=== PATIENT | male | born 1945 ===

== ENCOUNTER 2017-01-19 07:14 | Emergency (ER) | payer MEDICARE ==
[2017-01-19 08:02] LABS: Basophils % (Auto) 0.6 % (0.0-1.8); Eosinophils % (Auto) 3.9 % (0.0-4.3); Hematocrit 37.7 % (35.5-45.6); Hemoglobin 12.8 gm/dl (11.8-15.2); Mean Corpuscular HGB Conc 34 % (32-34); Mean Corpuscular Hemoglobin 28 pg (28-32); Mean Corpuscular Volume 84 fl (84-94); Platelet Count 193 K/mm3 (140-440); Red Cell Distribution Width 13.7 % (13.2-15.2); White Blood Count 7.6 K/mm3 (4.5-11.0)
[2017-01-19 08:11] LABS: Bilirubin,Urine NEG (Negative); Blood,Urine NEG (Negative); Ketones,Urine NEG (Negative); Leukocyte Esterase,Urine NEG (Negative); Mucus,Urine FEW /HPF; Nitrite,Urine NEG (Negative); Protein,Urine <15 mg/dL mg/dL (Negative); Urobilinogen,Urine < 2.0 mg/dL (<2.0); WBC,Urine < 1.0 /HPF (0.0-6.0)
[2017-01-19 08:22] LABS: Anion Gap 18 mmol/L; BUN/Creatinine Ratio 12.72; Blood Urea Nitrogen 14 mg/dL (9-20); Calcium 9.4 mg/dL (8.4-10.2); Carbon Dioxide 25 mmol/L (22-30); Chloride 99.7 mmol/L (98-107); Glucose 136 mg/dL (75-100); Potassium 4.7 mmol/L (3.6-5.0); Sodium 138 mmol/L (137-145)
--- NOTE | 2017-01-19 08:47 | Emergency Department Report ---
ED General Adult HPI - General Chief complaint: Chest Pain Stated complaint: CHEST/BACK/HIP PAIN Time Seen by Provider: 01/19/17 08:14 Source: patient, EMS Mode of arrival: Stretcher Limitations: No Limitations - History of Present Illness Initial comments: The patient arrives via EMS for evaluation. Apparently he states his overly concerned about a complaint of chest discomfort. He states that he felt "lightning" in his left chest which lasted for just a second. He does have a history of paroxysmal atrial fibrillation but did not specifically describe a tachycardia. His symptoms were not at all persistent. He also describes joint pain which is quite diffuse in nature. In addition he states he's been having left flank pain for a week which she has taken Motrin for. He denies cough shortness of breath nausea vomiting or sweating or dizziness. He has no history of coronary artery disease. He was previously admitted to this facility and discharged not to be a candidate for anticoagulant therapy. He states that he receives his chronic care at the [facility]. At the time of my encounter he is complaining of mild left flank pain only. He's had no recent fever or chills. -: week(s) Location: chest, left (flank) Radiation: non-radiation Quality: aching Consistency: intermittent Improves with: none Worsens with: none Associated Symptoms: denies other symptoms Treatments Prior to Arrival: none - Related Data Home Medications Medication Instructions Recorded Confirmed Last Taken Lisinopril [Zestril TAB] 20 mg PO QDAY 02/11/14 01/19/17 01/18/17 Simvastatin 10 mg PO QDAY 02/11/14 01/19/17 1 Day Ago metFORMIN [Glucophage] 1,000 mg PO BID 02/11/14 01/19/17 01/18/17 Magnesium Oxide [Mag-Ox] 400 mg PO DAILY 01/19/17 01/19/17 01/18/17 Metoprolol [Lopressor TAB] 37.5 mg PO BID 01/19/17 01/19/17 01/18/17 Ranitidine HCl [Zantac 150 MG TAB] 150 mg PO BID 01/19/17 01/19/17 01/18/17 glipiZIDE [Glucotrol] 10 mg PO DAILY 01/19/17 01/19/17 01/18/17 Previous Rx's Medication Instructions Recorded Last Taken Type traMADol [Ultram] 50 mg PO Q6HR PRN #14 tablet 01/19/17 Unknown Rx Allergies Allergy/AdvReac Type Severity Reaction Status Date / Time aspirin Allergy Swelling Verified 02/11/14 02:52 iron Allergy Itching Verified 02/11/14 02:52 ED Review of Systems ROS: Stated complaint: CHEST/BACK/HIP PAIN Other details as noted in HPI Constitutional: denies: chills, fever Eyes: denies: eye pain, eye discharge, vision change ENT: denies: ear pain, throat pain Respiratory: denies: cough, shortness of breath, wheezing Cardiovascular: denies: chest pain, palpitations Endocrine: no symptoms reported Gastrointestinal: denies: abdominal pain, nausea, diarrhea Genitourinary: denies: urgency, dysuria Musculoskeletal: as per HPI, back pain, arthralgia. denies: joint swelling Skin: denies: rash, lesions Neurological: denies: headache, weakness, paresthesias Psychiatric: denies: anxiety, depression Hematological/Lymphatic: denies: easy bleeding, easy bruising ED Past Medical Hx - Past Medical History Previous Medical History?: Yes Hx Hypertension: Yes Hx Heart Attack/AMI: Yes (08/2016) Hx Diabetes: Yes Additional medical history: High Cholesterol - Surgical History Past Surgical History?: Yes Hx Cholecystectomy: Yes - Social History Smoking Status: Never Smoker Substance Use Type: None - Medications Home Medications: Home Medications Medication Instructions Recorded Confirmed Last Taken Type Lisinopril [Zestril TAB] 20 mg PO QDAY 02/11/14 01/19/17 01/18/17 History Simvastatin 10 mg PO QDAY 02/11/14 01/19/17 1 Day Ago History metFORMIN [Glucophage] 1,000 mg PO BID 02/11/14 01/19/17 01/18/17 History Magnesium Oxide [Mag-Ox] 400 mg PO DAILY 01/19/17 01/19/17 01/18/17 History Metoprolol [Lopressor TAB] 37.5 mg PO BID 01/19/17 01/19/17 01/18/17 History Ranitidine HCl [Zantac 150 MG TAB] 150 mg PO BID 01/19/17 01/19/17 01/18/17 History glipiZIDE [Glucotrol] 10 mg PO DAILY 01/19/17 01/19/17 01/18/17 History traMADol [Ultram] 50 mg PO Q6HR PRN #14 tablet 01/19/17 Unknown Rx ED Physical Exam - General Limitations: No Limitations General appearance: alert, in no apparent distress - Head Head exam: Present: atraumatic, normocephalic - Eye Eye exam: Present: normal appearance. Absent: scleral icterus - ENT ENT exam: Present: mucous membranes moist - Neck Neck exam: Present: normal inspection - Respiratory Respiratory exam: Present: normal lung sounds bilaterally. Absent: respiratory distress - Cardiovascular Cardiovascular Exam: Present: regular rate, normal rhythm. Absent: systolic murmur, diastolic murmur, rubs, gallop - GI/Abdominal GI/Abdominal exam: Present: soft, normal bowel sounds. Absent: distended, tenderness, guarding, rebound, rigid - Rectal Rectal exam: Present: deferred - Extremities Exam Extremities exam: Present: normal inspection - Back Exam Back exam: Present: normal inspection, full ROM. Absent: tenderness, CVA tenderness (R), CVA tenderness (L), muscle spasm, paraspinal tenderness, vertebral tenderness, rash noted - Neurological Exam Neurological exam: Present: alert, oriented X3, CN II-XII intact. Absent: motor sensory deficit - Psychiatric Psychiatric exam: Present: normal affect, normal mood - Skin Skin exam: Present: warm, dry, intact, normal color. Absent: rash ED Course Vital Signs 01/19/17 01/19/17 01/19/17 07:29 07:31 07:46 Temperature 97.5 F L Pulse Rate 59 L 60 59 L Respiratory 18 14 13 Rate Blood Pressure 155/80 155/80 Blood Pressure [Left] O2 Sat by Pulse 98 100 Oximetry 01/19/17 01/19/17 01/19/17 08:00 09:39 09:42 Temperature 97.5 F L Pulse Rate 57 L 70 Respiratory 21 18 20 Rate Blood Pressure 149/126 Blood Pressure 154/79 [Left] O2 Sat by Pulse 100 96 100 Oximetry 01/19/17 10:43 Temperature Pulse Rate 61 Respiratory 20 Rate Blood Pressure 141/76 Blood Pressure [Left] O2 Sat by Pulse Oximetry ED Medical Decision Making - Lab Data Result diagrams: 01/19/17 07:50 01/19/17 07:50 Laboratory Results - last 24 hr 01/19/17 01/19/17 01/19/17 07:30 07:50 07:50 WBC 7.6 RBC 4.50 Hgb 12.8 Hct 37.7 MCV 84 MCH 28 MCHC 34 RDW 13.7 Plt Count 193 Lymph % (Auto) 28.5 [place] % (Auto) 6.1 Eos % (Auto) 3.9 Baso % (Auto) 0.6 Lymph # 2.2 [place] # 0.5 Eos # 0.3 Baso # 0.0 Seg Neutrophils % 60.9 Seg Neutrophils # 4.6 Sodium 138 Potassium 4.7 Chloride 99.7 Carbon Dioxide 25 Anion Gap 18 BUN 14 Creatinine 1.1 Estimated GFR > 60 BUN/Creatinine Ratio 12.72 Glucose 136 H Calcium 9.4 Troponin T < 0.010 Urine Color Straw Urine Turbidity Clear Urine pH 6.0 Ur Specific [place] 1.011 Urine Protein <15 mg/dl Urine Glucose (UA) Neg Urine Ketones Neg Urine Blood Neg Urine Nitrite Neg Urine Bilirubin Neg Urine Urobilinogen < 2.0 Ur Leukocyte Esterase Neg Urine WBC (Auto) < 1.0 Urine RBC (Auto) 4.0 Urine Mucus Few Laboratory Results - last 24 hr 01/19/17 01/19/17 01/19/17 07:30 07:50 07:50 WBC 7.6 RBC 4.50 Hgb 12.8 Hct 37.7 MCV 84 MCH 28 MCHC 34 RDW 13.7 Plt Count 193 Lymph % (Auto) 28.5 [place] % (Auto) 6.1 Eos % (Auto) 3.9 Baso % (Auto) 0.6 Lymph # 2.2 [place] # 0.5 Eos # 0.3 Baso # 0.0 Seg Neutrophils % 60.9 Seg Neutrophils # 4.6 Sodium 138 Potassium 4.7 Chloride 99.7 Carbon Dioxide 25 Anion Gap 18 BUN 14 Creatinine 1.1 Estimated GFR > 60 BUN/Creatinine Ratio 12.72 Glucose 136 H Calcium 9.4 Troponin T < 0.010 Urine Color Straw Urine Turbidity Clear Urine pH 6.0 Ur Specific [place] 1.011 Urine Protein <15 mg/dl Urine Glucose (UA) Neg Urine Ketones Neg Urine Blood Neg Urine Nitrite Neg Urine Bilirubin Neg Urine Urobilinogen < 2.0 Ur Leukocyte Esterase Neg Urine WBC (Auto) < 1.0 Urine RBC (Auto) 4.0 Urine Mucus Few 01/19/17 10:48 WBC RBC Hgb Hct MCV MCH MCHC RDW Plt Count Lymph % (Auto) [place] % (Auto) Eos % (Auto) Baso % (Auto) Lymph # [place] # Eos # Baso # Seg Neutrophils % Seg Neutrophils # Sodium Potassium Chloride Carbon Dioxide Anion Gap BUN Creatinine Estimated GFR BUN/Creatinine Ratio Glucose Calcium Troponin T < 0.010 Urine Color Urine Turbidity Urine pH Ur Specific [place] Urine Protein Urine Glucose (UA) Urine Ketones Urine Blood Urine Nitrite Urine Bilirubin Urine Urobilinogen Ur Leukocyte Esterase Urine WBC (Auto) Urine RBC (Auto) Urine Mucus - EKG Data -: EKG Interpreted by Me EKG shows normal: sinus rhythm, axis, intervals, QRS complexes, ST-T waves - EKG Data Interpretation: no acute changes - Radiology Data Radiology results: report reviewed Critical care attestation.: If time is entered above; I have spent that time in minutes in the direct care of this critically ill patient, excluding procedure time. ED Disposition Clinical Impression: Atypical chest pain, Left flank pain Disposition: DISCHARGED TO HOME OR SELFCARE Is pt being admited?: No Does the pt Need Aspirin: No Condition: Stable Instructions: Chest Pain (ED), Flank Pain (ED) Additional Instructions: Return any acute change or problem. Follow-up with usual primary care provider. Rx as needed for pain. Prescriptions: traMADol [Ultram] 50 mg PO Q6HR PRN #14 tablet PRN Reason: Pain Referrals: PRIMARY CARE, [Primary Care Provider] - 3-5 Days Time of Disposition: 12:18
[2017-01-19] MEDS ORDERED: NITRO-BID 2% TP ONE (08:48)
[2017-01-19] MEDS ORDERED: NORCO 5/325 PO ONE (08:48)
--- NOTE | 2017-01-19 08:56 | XRay Report ---
CHEST ONE VIEW INDICATION: Chest pain. COMPARISON: 09/28/2016. FINDINGS: Portable, single, frontal chest radiograph demonstrates normal cardiomediastinal silhouette. Clear lungs. Aortic knob calcifications. Possible osteopenia. Thoracic spondylosis. Extrinsic EKG leads. CONCLUSION: No acute disease in the chest. Thank you for the opportunity to participate in this patient's care.
--- NOTE | 2017-01-19 09:54 | Admit Criteria Form ---
Admission Criteria Documentation: CHEST PAIN Clinical Indications for Admission to Inpatient Care (Place 'X' for any and all applicable criteria): Admission is indicated for chest pain and ANY ONE of the following(1)(2)(3)(4)(5 ): [ ]I. Angina with acute coronary syndrome (Also use Myocardial Infarction or Angina guideline) [ ]II. Hemodynamic instability [ ]III. Angina needing acute intervention as indicated by ALL of the following( 11)(12): [ ]a) Unstable angina is present as indicated by angina that is ANY ONE of the following: [ ]i) New onset [ ]ii) Nocturnal [ ]iii) Prolonged at rest [ ]iv) Progressive [ ]b) Angina warrants acute intervention as indicated by ANY ONE of the following: [ ]i) Recurrent angina (e.g, not responding as previously to treatment) [ ]ii) Angina at rest or with low-level activities despite initial medical therapy [ ]iii) New or presumably new ST-segment depression on ECG [ ]iv) Signs or symptoms of heart failure (eg, dyspnea, pulmonary edema) [ ]v) New or worsening mitral regurgitation [ ]vi) Hemodynamic instability [ ]vii) Dangerous arrhythmia (eg, sustained ventricular tachycardia) [ ]viii) History of percutaneous coronary intervention within 6 months [ ]ix) History of coronary artery bypass graft surgery [ ]x) POLINA risk score of 2 or greater[A] [ ]xi) History of Diabetes(14) [ ]xii) High-risk cardiac ischemia findings on noninvasive testing (e.g, echocardiogram, treadmill testing, nuclear scan) [ ]xiii) Chronic renal insufficiency (ie, estimated GFR less than 60 mL/min/1.732m) [ ]xiv) Left ventricular ejection fraction less than 40% [ ]IV. Evidence of UT (eg, cardiac biomarkers positive, ST-segment elevation on ECG) also use Myocardial Infarction Criteria Form. [ ]V. Pulmonary edema [ ]. Respiratory distress [ ]VII. Chest pain indicative of serious diagnosis other than coronary artery disease (eg, aortic dissection) [ ]VIII. Contraindications and/or Inappropriate clinical situations for Observational Care in patients with Chest Pain, when ANY ONE of the following is required: [ ]a) Patient with risk factor for pulmonary embolism, acute coronary syndrome and myocardial infarction (18) [ ]b) Patient with Pulmonary embolism require an average LOS of 4.3 days, therefore emergency department observation management is inappropriate 18,23 [ ]c) Painful condition/s in the elderly, have the highest rate of recidivism after emergency department observation management (10.8%) 20,21,22 [ ]d) Elevated cardiac biomarker requires intensive and exhaustive care (19) [X ]IX. General contraindications and/or Inappropriate clinical situations for Observational Care in patients with Chest Pain, when ANY ONE of the following is required: [X ]a) Prediction of prolongation of LOS based on ANY ONE of the following may be considered as a contraindication for observational care 2, 3, 4, 5, 6, 7, 8, 9, 10, 11 [X ]i) Age > 65 yrs. [ X]ii) Patient arriving by ambulance [ ]iii) Patient with high acuity [ ]iv) Patient requiring vital sign monitoring [ ]v) Patient on IV medication [ ]b) Systolic blood pressures 180mmHg 3,12 [ ]c) Patient with altered mental status including delirium and other alteration of consciousness, (3) [ ]d) Patient whose discharge disposition will be to a senior care home or rehabilitation home should not be managed in Emergency Department Observation Unit. CMS rule requires 3 days hospital stay before such placement. 3,13 [ ]e) Patient with failure to thrive due to broad array of etiologies 3,16,17 [ ]f) Inability to ambulate 3,14 Extended stay beyond goal length of stay may be needed for (1)(28): [ ]a) Specific condition diagnosed after evaluation (eg, pulmonary embolism, aortic dissection) [ ]b) Unstable angina [ ]c) Continued suspicion of acute coronary syndrome with inability to complete needed cardiac evaluation (eg, patient clinically unable to undergo stress testing) [ ]d) Myocardial infarction (Contents from ANGINA and CHEST PAIN clinical indications for admission to inpatient care have been integrated in this form) The original [email or web address] content created by [email or web address] has been revised. The portions of the content which have been revised are identified through the use of italic text or in bold, and [employer] has neither reviewed nor approved the modified material. All other unmodified content is copyright [employer]. Please see references footnoted in the original [employer] edition 2016
--- NOTE | 2017-01-19 10:38 | Cat Scan Report ---
CT OF THE ABDOMEN AND PELVIS WITHOUT CONTRAST HISTORY: Left flank pain. TECHNIQUE: Helical CT without contrast. Sagittal and coronal reformatted images. FINDINGS: Within the limits of a noncontrast exam, the abdominal and pelvic viscera are within normal limits. Cholecystectomy changes. The liver, biliary system, pancreas, spleen, kidneys, adrenal glands and bladder are unremarkable. The bowel loops are normal caliber and wall thickness. Normal appendix. The aorta is normal caliber. No ascites, bulky adenopathy or inflammatory changes. The lung bases are clear. Normal heart size. No suspicious bony lesion. IMPRESSION: Unremarkable noncontrast CT of the abdomen and pelvis. No clear explanation for left flank pain.
[2017-01-19] MEDS ORDERED: ULTRAM PO ONE (12:20)
[2017-01-19 13:24] VITALS: BP 148/71
== END 2017-01-19 13:24 | disposition home or self-care (01) ==
LOC: ED 07:14
DX: R07.89 Other chest pain (principal); R00.0 Tachycardia, unspecified; R10.9 Unspecified abdominal pain; I10 Essential (primary) hypertension; E11.9 Type 2 diabetes mellitus without complications; E78.00 Pure hypercholesterolemia, unspecified; I50.9 Heart failure, unspecified; I48.91 Unspecified atrial fibrillation; Z90.49 Acquired absence of other specified parts of digestive tract
CPT/HCPCS: 36415; 71010; 74176; 80048; 81001; 84484; 85025; 93005; 93010

== ENCOUNTER 2019-04-30 09:13 | Emergency (ER) | payer MEDICARE ==
[2019-04-30] MEDS ORDERED: NACL 0.9% 1000 ML 1,000 ML IV ONE (10:39)
--- NOTE | 2019-04-30 10:45 | Emergency Department Report ---
ED General Adult HPI - General Chief complaint: Hyperglycemia Stated complaint: HIGH BLOOD SUGAR Time Seen by Provider: 04/30/19 10:01 Source: patient, family Mode of arrival: Ambulatory Limitations: No Limitations - History of Present Illness Initial comments: The patient presents to the emergency department with a chief complaint elevated blood glucose levels. Patient is on insulin at home and just recently returned from [facility] where he was not taking his medications. Patient was seen by his primary care physician yesterday and was told to come to the emergency department for evaluation. Patient denies chest pain, shortness breath, or abdominal pain. -: Gradual Severity scale (0 -10): 0 Improves with: none Worsens with: none Associated Symptoms: denies other symptoms Treatments Prior to Arrival: none - Related Data Home Medications Medication Instructions Recorded Confirmed Last Taken Lisinopril [Zestril TAB] 20 mg PO QDAY 02/11/14 01/19/17 01/18/17 Simvastatin 10 mg PO QDAY 02/11/14 01/19/17 1 Day Ago ~01/18/17 metFORMIN [Glucophage] 1,000 mg PO BID 02/11/14 01/19/17 01/18/17 Magnesium Oxide [Mag-Ox] 400 mg PO DAILY 01/19/17 01/19/17 01/18/17 Metoprolol [Lopressor TAB] 37.5 mg PO BID 01/19/17 01/19/17 01/18/17 Ranitidine HCl [Zantac 150 MG TAB] 150 mg PO BID 01/19/17 01/19/17 01/18/17 glipiZIDE [Glucotrol] 10 mg PO DAILY 01/19/17 01/19/17 01/18/17 Previous Rx's Medication Instructions Recorded Last Taken Type traMADol [Ultram] 50 mg PO Q6HR PRN #14 tablet 01/19/17 Unknown Rx Allergies Allergy/AdvReac Type Severity Reaction Status Date / Time aspirin Allergy Swelling Verified 02/11/14 02:52 iron Allergy Itching Verified 02/11/14 02:52 ED Review of Systems ROS: Stated complaint: HIGH BLOOD SUGAR Other details as noted in HPI Comment: All other systems reviewed and negative Constitutional: denies: chills, fever Eyes: denies: eye pain, eye discharge, vision change ENT: denies: ear pain, throat pain Respiratory: denies: cough, shortness of breath, wheezing Cardiovascular: denies: chest pain, palpitations Endocrine: no symptoms reported Gastrointestinal: denies: abdominal pain, nausea, diarrhea Genitourinary: denies: urgency, dysuria Musculoskeletal: denies: back pain, joint swelling, arthralgia Skin: denies: rash, lesions Neurological: denies: headache, weakness, paresthesias Psychiatric: denies: anxiety, depression Hematological/Lymphatic: denies: easy bleeding, easy bruising ED Past Medical Hx - Past Medical History Previous Medical History?: Yes Hx Hypertension: Yes Hx Heart Attack/AMI: Yes (08/2016) Hx Diabetes: Yes Additional medical history: High Cholesterol - Surgical History Past Surgical History?: Yes Hx Cholecystectomy: Yes - Social History Smoking Status: Never Smoker Substance Use Type: None - Medications Home Medications: Home Medications Medication Instructions Recorded Confirmed Last Taken Type Lisinopril [Zestril TAB] 20 mg PO QDAY 02/11/14 01/19/17 01/18/17 History Simvastatin 10 mg PO QDAY 02/11/14 01/19/17 1 Day Ago History ~01/18/17 metFORMIN [Glucophage] 1,000 mg PO BID 02/11/14 01/19/17 01/18/17 History Magnesium Oxide [Mag-Ox] 400 mg PO DAILY 01/19/17 01/19/17 01/18/17 History Metoprolol [Lopressor TAB] 37.5 mg PO BID 01/19/17 01/19/17 01/18/17 History Ranitidine HCl [Zantac 150 MG TAB] 150 mg PO BID 01/19/17 01/19/17 01/18/17 History glipiZIDE [Glucotrol] 10 mg PO DAILY 01/19/17 01/19/17 01/18/17 History traMADol [Ultram] 50 mg PO Q6HR PRN #14 tablet 01/19/17 Unknown Rx ED Physical Exam - General Limitations: No Limitations General appearance: alert, in no apparent distress - Head Head exam: Present: atraumatic, normocephalic - Eye Eye exam: Present: normal appearance, PERRL - ENT ENT exam: Present: mucous membranes moist - Neck Neck exam: Present: normal inspection - Respiratory Respiratory exam: Present: normal lung sounds bilaterally. Absent: respiratory distress - Cardiovascular Cardiovascular Exam: Present: regular rate, normal rhythm. Absent: systolic murmur, diastolic murmur, rubs, gallop - GI/Abdominal GI/Abdominal exam: Present: soft, normal bowel sounds. Absent: distended, tenderness - Rectal Rectal exam: Present: deferred - Extremities Exam Extremities exam: Present: normal inspection - Back Exam Back exam: Present: normal inspection - Neurological Exam Neurological exam: Present: alert, oriented X3, CN II-XII intact. Absent: motor sensory deficit - Psychiatric Psychiatric exam: Present: normal affect, normal mood - Skin Skin exam: Present: warm, dry, intact, normal color. Absent: rash ED Course Vital Signs 04/30/19 04/30/19 04/30/19 09:18 11:00 11:20 Temperature 97.7 F Pulse Rate 55 L 54 L Respiratory 16 20 Rate Blood Pressure 163/94 Blood Pressure 155/78 [Left] O2 Sat by Pulse 96 100 97 Oximetry 04/30/19 04/30/19 04/30/19 11:30 12:00 12:33 Temperature Pulse Rate Respiratory Rate Blood Pressure 154/87 154/92 154/92 Blood Pressure [Left] O2 Sat by Pulse 97 99 99 Oximetry ED Medical Decision Making - Lab Data Result diagrams: 04/30/19 10:45 04/30/19 10:45 Lab Results 04/30/19 04/30/19 04/30/19 Range/Units 09:23 10:45 10:45 WBC 6.9 (4.5-11.0) K/mm3 RBC 4.55 (3.65-5.03) M/mm3 Hgb 13.1 (11.8-15.2) gm/dl Hct 38.8 (35.5-45.6) % MCV 85 (84-94) fl MCH 29 (28-32) pg MCHC 34 (32-34) % RDW 14.3 (13.2-15.2) % Plt Count 209 (140-440) K/mm3 Lymph % (Auto) 32.4 (13.4-35.0) % Jenkins % (Auto) 6.6 (0.0-7.3) % Eos % (Auto) 3.4 (0.0-4.3) % Baso % (Auto) 1.1 (0.0-1.8) % Lymph # 2.3 (1.2-5.4) K/mm3 Jenkins # 0.5 (0.0-0.8) K/mm3 Eos # 0.2 (0.0-0.4) K/mm3 Baso # 0.1 (0.0-0.1) K/mm3 Seg Neutrophils % 56.5 (40.0-70.0) % Seg Neutrophils # 3.9 (1.8-7.7) K/mm3 Sodium 131 L (137-145) mmol/L Potassium 4.6 (3.6-5.0) mmol/L Chloride 94.2 L (98-107) mmol/L Carbon Dioxide 24 (22-30) mmol/L Anion Gap 17 mmol/L BUN 18 (9-20) mg/dL Creatinine 1.3 (0.8-1.5) mg/dL Estimated GFR 54 ml/min BUN/Creatinine Ratio 14 % Glucose 462 H (75-100) mg/dL POC Glucose 434 H (70-105) Calcium 9.1 (8.4-10.2) mg/dL Total Bilirubin 0.30 (0.1-1.2) mg/dL AST 14 (5-40) units/L ALT 14 (7-56) units/L Alkaline Phosphatase 58 (35-129) units/L Total Protein 7.5 (6.3-8.2) g/dL Albumin 3.9 (3.9-5) g/dL Albumin/Globulin Ratio 1.1 % Urine Color (Yellow) Urine Turbidity (Clear) Urine pH (5.0-7.0) Ur Specific Eagle (1.003-1.030) Urine Protein (Negative) mg/dL Urine Glucose (UA) (Negative) mg/dL Urine Ketones (Negative) mg/dL Urine Blood (Negative) Urine Nitrite (Negative) Urine Bilirubin (Negative) Urine Urobilinogen (<2.0) mg/dL Ur Leukocyte Esterase (Negative) Urine WBC (Auto) (0.0-6.0) /HPF Urine RBC (Auto) (0.0-6.0) /HPF Urine Mucus /HPF 04/30/19 04/30/19 04/30/19 Range/Units 12:02 13:18 14:41 WBC (4.5-11.0) K/mm3 RBC (3.65-5.03) M/mm3 Hgb (11.8-15.2) gm/dl Hct (35.5-45.6) % MCV (84-94) fl MCH (28-32) pg MCHC (32-34) % RDW (13.2-15.2) % Plt Count (140-440) K/mm3 Lymph % (Auto) (13.4-35.0) % Jenkins % (Auto) (0.0-7.3) % Eos % (Auto) (0.0-4.3) % Baso % (Auto) (0.0-1.8) % Lymph # (1.2-5.4) K/mm3 Jenkins # (0.0-0.8) K/mm3 Eos # (0.0-0.4) K/mm3 Baso # (0.0-0.1) K/mm3 Seg Neutrophils % (40.0-70.0) % Seg Neutrophils # (1.8-7.7) K/mm3 Sodium (137-145) mmol/L Potassium (3.6-5.0) mmol/L Chloride (98-107) mmol/L Carbon Dioxide (22-30) mmol/L Anion Gap mmol/L BUN (9-20) mg/dL Creatinine (0.8-1.5) mg/dL Estimated GFR ml/min BUN/Creatinine Ratio % Glucose (75-100) mg/dL POC Glucose 411 H 336 H 208 H (70-105) Calcium (8.4-10.2) mg/dL Total Bilirubin (0.1-1.2) mg/dL AST (5-40) units/L ALT (7-56) units/L Alkaline Phosphatase (35-129) units/L Total Protein (6.3-8.2) g/dL Albumin (3.9-5) g/dL Albumin/Globulin Ratio % Urine Color (Yellow) Urine Turbidity (Clear) Urine pH (5.0-7.0) Ur Specific Eagle (1.003-1.030) Urine Protein (Negative) mg/dL Urine Glucose (UA) (Negative) mg/dL Urine Ketones (Negative) mg/dL Urine Blood (Negative) Urine Nitrite (Negative) Urine Bilirubin (Negative) Urine Urobilinogen (<2.0) mg/dL Ur Leukocyte Esterase (Negative) Urine WBC (Auto) (0.0-6.0) /HPF Urine RBC (Auto) (0.0-6.0) /HPF Urine Mucus /HPF 04/30/19 Range/Units Unknown WBC (4.5-11.0) K/mm3 RBC (3.65-5.03) M/mm3 Hgb (11.8-15.2) gm/dl Hct (35.5-45.6) % MCV (84-94) fl MCH (28-32) pg MCHC (32-34) % RDW (13.2-15.2) % Plt Count (140-440) K/mm3 Lymph % (Auto) (13.4-35.0) % Jenkins % (Auto) (0.0-7.3) % Eos % (Auto) (0.0-4.3) % Baso % (Auto) (0.0-1.8) % Lymph # (1.2-5.4) K/mm3 Jenkins # (0.0-0.8) K/mm3 Eos # (0.0-0.4) K/mm3 Baso # (0.0-0.1) K/mm3 Seg Neutrophils % (40.0-70.0) % Seg Neutrophils # (1.8-7.7) K/mm3 Sodium (137-145) mmol/L Potassium (3.6-5.0) mmol/L Chloride (98-107) mmol/L Carbon Dioxide (22-30) mmol/L Anion Gap mmol/L BUN (9-20) mg/dL Creatinine (0.8-1.5) mg/dL Estimated GFR ml/min BUN/Creatinine Ratio % Glucose (75-100) mg/dL POC Glucose (70-105) Calcium (8.4-10.2) mg/dL Total Bilirubin (0.1-1.2) mg/dL AST (5-40) units/L ALT (7-56) units/L Alkaline Phosphatase (35-129) units/L Total Protein (6.3-8.2) g/dL Albumin (3.9-5) g/dL Albumin/Globulin Ratio % Urine Color Straw (Yellow) Urine Turbidity Clear (Clear) Urine pH 5.0 (5.0-7.0) Ur Specific Eagle 1.024 (1.003-1.030) Urine Protein <15 mg/dl (Negative) mg/dL Urine Glucose (UA) >=500 (Negative) mg/dL Urine Ketones Neg (Negative) mg/dL Urine Blood Neg (Negative) Urine Nitrite Neg (Negative) Urine Bilirubin Neg (Negative) Urine Urobilinogen < 2.0 (<2.0) mg/dL Ur Leukocyte Esterase Neg (Negative) Urine WBC (Auto) < 1.0 (0.0-6.0) /HPF Urine RBC (Auto) 1.0 (0.0-6.0) /HPF Urine Mucus Few /HPF - Medical Decision Making IV Insulin given by 2 Critical Care Time: Yes Critical care time in (mins) excluding proc time.: 35 Critical care attestation.: If time is entered above; I have spent that time in minutes in the direct care of this critically ill patient, excluding procedure time. ED Disposition Clinical Impression: Hyperglycemia Disposition: DC-01 TO HOME OR SELFCARE Is pt being admited?: No Does the pt Need Aspirin: No Condition: Stable Instructions: Diabetic Hyperglycemia (ED) Additional Instructions: return if worse Referrals: PRIMARY CAREMD [Referring] - 3-5 Days MARIA LUISA NORTON MD [Staff Physician] - 3-5 Days Time of Disposition: 14:40
[2019-04-30 11:01] LABS: Basophils # (Auto) 0.1 K/mm3 (0.0-0.1); Basophils % (Auto) 1.1 % (0.0-1.8); Eosinophils # (Auto) 0.2 K/mm3 (0.0-0.4); Eosinophils % (Auto) 3.4 % (0.0-4.3); Hematocrit 38.8 % (35.5-45.6); Hemoglobin 13.1 gm/dl (11.8-15.2); Lymphocytes # (Auto) 2.3 K/mm3 (1.2-5.4); Lymphocytes % (Auto) 32.4 % (13.4-35.0); Mean Corpuscular HGB Conc 34 % (32-34); Mean Corpuscular Volume 85 fl (84-94); Monocytes # (Auto) 0.5 K/mm3 (0.0-0.8); Monocytes % (Auto) 6.6 % (0.0-7.3); Platelet Count 209 K/mm3 (140-440); Red Blood Count 4.55 M/mm3 (3.65-5.03); Red Cell Distribution Width 14.3 % (13.2-15.2)
[2019-04-30 11:02] LABS: Bilirubin,Urine NEG (Negative); Blood,Urine NEG (Negative); Color,Urine Straw (Yellow); Mucus,Urine FEW /HPF; Protein,Urine <15 mg/dL mg/dL (Negative); Urobilinogen,Urine < 2.0 mg/dL (<2.0); WBC,Urine < 1.0 /HPF (0.0-6.0)
[2019-04-30 11:15] LABS: Albumin 3.9 g/dL (3.9-5); Calcium 9.1 mg/dL (8.4-10.2)
[2019-04-30] MEDS ORDERED: HumuLIN R IV ONE ×2 (11:37→13:18)
[2019-04-30 15:01] VITALS: BP 153/82
== END 2019-04-30 15:22 | disposition home or self-care (01) ==
LOC: ED 09:13
DX: E11.65 Type 2 diabetes mellitus with hyperglycemia (principal); Z79.899 Other long term (current) drug therapy; I10 Essential (primary) hypertension; I25.2 Old myocardial infarction; E78.5 Hyperlipidemia, unspecified; Z90.49 Acquired absence of other specified parts of digestive tract; Z88.8 Allergy status to other drugs, medicaments and biological substances
CPT/HCPCS: 36415; 80053; 81001; 82962; 85025; 96361; 96374; 96376; 99291; J7030; J1815

== ENCOUNTER 2019-05-03 23:54 | Inpatient (IN) | payer MEDICARE, MEDICAID ==
--- NOTE | 2019-05-04 00:18 | Emergency Department Report ---
ED Chest Pain HPI - General Stated Complaint: CHEST PAIN Time Seen by Provider: 05/04/19 00:14 Source: patient Mode of arrival: Ambulatory Limitations: No Limitations - History of Present Illness Initial Comments: Patient is a 74-year-old male that just emergency room with chest pain that started this morning. Patient states his chest pain has been intermittent throughout the day. Patient states that his chest pinky back approximately an hour and a half ago worse than it did all day. Patient states his chest pain got better with rest and nitroglycerin. Patient states the pain was worse with exertion. Patient states the pain is severe. She denies fever and chills. P atient denies abdominal pain. Patient denies leg swelling. Patient denies diaphoresis. Patient denies shortness of breath. MD Complaint: chest pain -: Sudden Onset: during rest Pain Location: substernal, left chest Pain Radiation: none Severity: severe Quality: sharp Consistency: constant Improves With: nitroglycerin, rest Worsens With: exertion re: denies: nausea, vomting, diaphoresis, dyspnea, sense of impending doom Other Symptoms: denies: cough, fever, syncope, rash, acid taste in mouth, leg swelling, palpitations, burping Treatments Prior to Arrival: aspirin, nitroglycerin Aspirin use within the Past 7 Days: (1) Yes - Related Data On Oral Contraceptives: No Home Medications Medication Instructions Recorded Confirmed Last Taken Lisinopril [Zestril TAB] 20 mg PO QDAY 02/11/14 01/19/17 01/18/17 Simvastatin 10 mg PO QDAY 02/11/14 01/19/17 1 Day Ago ~01/18/17 metFORMIN [Glucophage] 1,000 mg PO BID 02/11/14 01/19/17 01/18/17 Magnesium Oxide [Mag-Ox] 400 mg PO DAILY 01/19/17 01/19/17 01/18/17 Metoprolol [Lopressor TAB] 37.5 mg PO BID 01/19/17 01/19/17 01/18/17 Ranitidine HCl [Zantac 150 MG TAB] 150 mg PO BID 01/19/17 01/19/17 01/18/17 glipiZIDE [Glucotrol] 10 mg PO DAILY 01/19/17 01/19/17 01/18/17 Previous Rx's Medication Instructions Recorded Last Taken Type traMADol [Ultram] 50 mg PO Q6HR PRN #14 tablet 01/19/17 Unknown Rx Allergies Allergy/AdvReac Type Severity Reaction Status Date / Time aspirin Allergy Swelling Verified 02/11/14 02:52 iron Allergy Itching Verified 02/11/14 02:52 Heart Score - HEART Score History: Moderately suspicious EKG: Non-specific Age: > 65 Risk factors: > 3 risk factors or hx of atherosclerotic disease Troponin: < normal limit HEART Score: 6 ED Review of Systems ROS: Stated complaint: CHEST PAIN Other details as noted in HPI Constitutional: denies: chills, fever Eyes: denies: eye pain, eye discharge, vision change ENT: denies: ear pain, throat pain Respiratory: denies: cough, shortness of breath, wheezing Cardiovascular: chest pain. denies: palpitations Endocrine: no symptoms reported Gastrointestinal: denies: abdominal pain, nausea, diarrhea Genitourinary: denies: urgency, dysuria Musculoskeletal: denies: back pain, joint swelling, arthralgia Skin: denies: rash, lesions Neurological: denies: headache, weakness, paresthesias Psychiatric: denies: anxiety, depression Hematological/Lymphatic: denies: easy bleeding, easy bruising ED Past Medical Hx - Past Medical History Previous Medical History?: Yes Hx Hypertension: Yes Hx Heart Attack/AMI: Yes (08/2016) Hx Diabetes: Yes Additional medical history: High Cholesterol - Surgical History Past Surgical History?: Yes Hx Cholecystectomy: Yes - Family History Family history: no significant - Social History Smoking Status: Never Smoker Substance Use Type: None - Medications Home Medications: Home Medications Medication Instructions Recorded Confirmed Last Taken Type Lisinopril [Zestril TAB] 20 mg PO QDAY 02/11/14 01/19/17 01/18/17 History Simvastatin 10 mg PO QDAY 02/11/14 01/19/17 1 Day Ago History ~01/18/17 metFORMIN [Glucophage] 1,000 mg PO BID 02/11/14 01/19/17 01/18/17 History Magnesium Oxide [Mag-Ox] 400 mg PO DAILY 01/19/17 01/19/17 01/18/17 History Metoprolol [Lopressor TAB] 37.5 mg PO BID 01/19/17 01/19/17 01/18/17 History Ranitidine HCl [Zantac 150 MG TAB] 150 mg PO BID 01/19/17 01/19/17 01/18/17 History glipiZIDE [Glucotrol] 10 mg PO DAILY 01/19/17 01/19/17 01/18/17 History traMADol [Ultram] 50 mg PO Q6HR PRN #14 tablet 01/19/17 Unknown Rx ED Physical Exam - General Limitations: No Limitations General appearance: alert, in no apparent distress - Head Head exam: Present: atraumatic, normocephalic - Eye Eye exam: Present: normal appearance - ENT ENT exam: Present: mucous membranes moist - Neck Neck exam: Present: normal inspection - Respiratory Respiratory exam: Present: normal lung sounds bilaterally. Absent: respiratory distress - Cardiovascular Cardiovascular Exam: Present: regular rate, normal rhythm. Absent: systolic murmur, diastolic murmur, rubs, gallop - GI/Abdominal GI/Abdominal exam: Present: soft, normal bowel sounds - Rectal Rectal exam: Present: deferred - Extremities Exam Extremities exam: Present: normal inspection - Back Exam Back exam: Present: normal inspection - Neurological Exam Neurological exam: Present: alert, oriented X3 - Psychiatric Psychiatric exam: Present: normal affect, normal mood - Skin Skin exam: Present: warm, dry, intact, normal color. Absent: rash ED Course Vital Signs 05/04/19 05/04/19 05/04/19 00:04 00:15 00:16 Temperature 98.6 F Pulse Rate 60 56 L 59 L Respiratory 25 H 18 14 Rate Blood Pressure 158/77 158/77 O2 Sat by Pulse 99 100 Oximetry 05/04/19 05/04/19 05/04/19 00:30 00:46 01:00 Temperature Pulse Rate Respiratory Rate Blood Pressure 158/77 158/77 155/60 O2 Sat by Pulse 100 100 98 Oximetry 05/04/19 05/04/19 05/04/19 01:03 01:16 01:30 Temperature Pulse Rate Respiratory 16 Rate Blood Pressure 155/60 155/60 O2 Sat by Pulse 98 100 Oximetry 05/04/19 05/04/19 05/04/19 01:46 02:00 02:16 Temperature Pulse Rate Respiratory Rate Blood Pressure 155/60 136/72 136/72 O2 Sat by Pulse 99 100 100 Oximetry 05/04/19 05/04/19 05/04/19 02:21 02:30 02:46 Temperature Pulse Rate 61 Respiratory 14 Rate Blood Pressure 136/72 141/74 O2 Sat by Pulse 98 100 Oximetry 05/04/19 05/04/19 05/04/19 03:00 03:16 03:30 Temperature Pulse Rate Respiratory Rate Blood Pressure 131/69 131/69 141/74 O2 Sat by Pulse 96 99 98 Oximetry 05/04/19 05/04/19 05/04/19 03:40 03:50 04:22 Temperature Pulse Rate Respiratory Rate Blood Pressure 141/74 141/74 141/74 O2 Sat by Pulse 98 98 77 L Oximetry - Reevaluation(s) Reevaluation #1: Patient states his pain is improving. 05/04/19 01:12 Discussed all results with patient. Patient will be admitted to the hospitalist service. Patient agrees to plan of care. 05/04/19 02:12 - Consultations Consultation #1: Hospitalist consulted for admission. Hospitalist to admit patient. Hospitalist to assume care patient. 05/04/19 02:14 POLINA score - Polina Score Age > 65: (1) Yes Aspirin use within the Past 7 Days: (1) Yes 3 or more CAD Risk Factors: (1) Yes 2 or more Angina events in past 24 hrs: (1) Yes Known CAD with more than 50% Stenosis: (0) No Elevated Cardiac Markers: (0) No ST Deviation Greater than 0.5mm: (0) No POLINA Score: 4 ED Medical Decision Making - Lab Data Result diagrams: 05/04/19 03:24 05/04/19 03:24 - EKG Data -: EKG Interpreted by Ca EKG shows normal: sinus rhythm, axis, intervals, ST-T waves Rate: bradycardia - EKG Data Interpretation: other (right bundle-branch block noted) - Radiology Data Radiology results: report reviewed PROCEDURE: XR CHEST 1V AP TECHNIQUE: Chest radiograph single view. HISTORY: Chest Pain COMPARISONS: None . FINDINGS: Heart: Normal. Mediastinum/Vessels: Normal. Lungs/Pleural space: Normal. Bony thorax: No acute osseous abnormality. Life support devices: None. IMPRESSION: No acute cardiopulmonary abnormality. - Medical Decision Making Patient is a 74-year-old male that presents emergency room for chest pain. Patient given aspirin and nitroglycerin before arrival and his chest pain improved. Patient given morphine and his chest pain continued to improve. Patient is a cardiac workup negative. Patient was admitted to the hospitalist service for further evaluation and treatment rule out ACS. - Differential Diagnosis chest pain' Critical Care Time: Yes Critical care attestation.: If time is entered above; I have spent that time in minutes in the direct care of this critically ill patient, excluding procedure time. Critical Care Time: 35 minutes ED Disposition Clinical Impression: Chest pain Qualifiers: Chest pain type: unspecified Qualified Code(s): R07.9 - Chest pain, unspecified HTN (hypertension) Qualifiers: Hypertension type: essential hypertension Qualified Code(s): I10 - Essential (primary) hypertension Disposition: 09 OP ADMIT IP TO THIS HOSP Is pt being admited?: Yes Does the pt Need Aspirin: No Condition: Critical Time of Disposition: 02:15
[2019-05-04] MEDS ORDERED: ZOFRAN IV ONE (00:21)
[2019-05-04] MEDS ORDERED: MORPHINE IV ONE ×2 (00:22→02:27)
[2019-05-04 00:58] LABS: Basophils # (Auto) 0.1 K/mm3 (0.0-0.1); Basophils % (Auto) 0.7 % (0.0-1.8); Eosinophils # (Auto) 0.2 K/mm3 (0.0-0.4); Eosinophils % (Auto) 2.3 % (0.0-4.3); Hematocrit 36.3 % (35.5-45.6); Hemoglobin 12.8 gm/dl (11.8-15.2); Lymphocytes # (Auto) 1.7 K/mm3 (1.2-5.4); Lymphocytes % (Auto) 19.4 % (13.4-35.0); Mean Corpuscular HGB Conc 35 % (32-34); Mean Corpuscular Volume 85 fl (84-94); Monocytes # (Auto) 0.5 K/mm3 (0.0-0.8); Monocytes % (Auto) 5.9 % (0.0-7.3); Platelet Count 188 K/mm3 (140-440); Red Blood Count 4.27 M/mm3 (3.65-5.03); Red Cell Distribution Width 14.5 % (13.2-15.2)
--- NOTE | 2019-05-04 01:40 | XRay Report ---
PROCEDURE: XR CHEST 1V AP TECHNIQUE: Chest radiograph single view. HISTORY: Chest Pain COMPARISONS: None . FINDINGS: Heart: Normal. Mediastinum/Vessels: Normal. Lungs/Pleural space: Normal. Bony thorax: No acute osseous abnormality. Life support devices: None. IMPRESSION: No acute cardiopulmonary abnormality. This document is electronically signed by Gisselle Fabian MD., May 04 2019 01:38:46 AM ET
[2019-05-04 01:56] LABS: Alanine Aminotransferase 12 units/L (7-56); Albumin 3.7 g/dL (3.9-5); BUN/Creatinine Ratio 15; Blood Urea Nitrogen 21 mg/dL (9-20); Calcium 9.4 mg/dL (8.4-10.2); Hemolysis Index 6
[2019-05-04] MEDS ORDERED: ZOFRAN IV PRN (02:37)
[2019-05-04] MEDS ORDERED: TYLENOL PO PRN (02:37)
[2019-05-04] MEDS ORDERED: SODIUM CHLORIDE FLUSH SYRINGE 10 ML IV PRN ×2 (02:37)
--- NOTE | 2019-05-04 02:48 | History and Physical Report ---
<JERMAIN WYATT - Last Filed: 05/04/19 04:22> History of Present Illness Date of examination: 05/04/19 Date of admission: 05/04/2019 Chief complaint: chest pain x 1 day History of present illness: Patient is a 74-year-old male with PMHx of DM type II, HTN, hyperlipidemia who presents to the ER with c/o chest pain x1day. Pt states that the chest pain started in the this morning and lasted the whole day. He reports that the pain is intermittent located in the left chest area with no radiation. Patient denies any associated symptoms, he denies diaphoresis, denies palpitations, denies nausea, denies vomiting. Patient reports improvement of the chest pain with morphine, he denies prior history of chest pain or heart disease, he states that he had had an echocardiogram last month in [facility] which was normal. In the ER patient had an EKG that showed no STEMI criteria, his first cardiac enzymes was negative, his chest x-ray showed no cardiopulmonary abnormalities. Patient is admitted for further evaluation of this chest pain. Past History Past Medical History: diabetes, hyperthyroidism, hyperlipidemia Past Surgical History: No surgical history Social history: no significant social history Family history: no significant family history Medications and Allergies Allergies Allergy/AdvReac Type Severity Reaction Status Date / Time aspirin Allergy Swelling Verified 02/11/14 02:52 iron Allergy Itching Verified 02/11/14 02:52 Home Medications Medication Instructions Recorded Confirmed Last Taken Type Lisinopril [Zestril TAB] 20 mg PO QDAY 02/11/14 05/04/19 01/18/17 History Simvastatin 10 mg PO QDAY 02/11/14 05/04/19 1 Day Ago History ~01/18/17 metFORMIN [Glucophage] 1,000 mg PO BID 02/11/14 05/04/19 01/18/17 History Magnesium Oxide [Mag-Ox] 400 mg PO DAILY 01/19/17 05/04/19 01/18/17 History Metoprolol [Lopressor TAB] 37.5 mg PO BID 01/19/17 05/04/19 01/18/17 History Ranitidine HCl [Zantac 150 MG TAB] 150 mg PO BID 01/19/17 05/04/19 01/18/17 History glipiZIDE [Glucotrol] 10 mg PO DAILY 01/19/17 05/04/19 01/18/17 History traMADol [Ultram] 50 mg PO Q6HR PRN #14 tablet 01/19/17 05/04/19 Unknown Rx Active Meds: Active Medications Acetaminophen (Tylenol) 650 mg PO Q4H PRN PRN Reason: Pain MILD(1-3)/Fever >100.5/LANTIGUA Aspirin (Ecotrin) 325 mg PO QDAY LIZZIE Enoxaparin Sodium (Lovenox) 40 mg SUB-Q QDAY LIZZIE Morphine Sulfate (Morphine) 2 mg IV Q4H PRN PRN Reason: Pain, Moderate (4-6) Ondansetron HCl (Zofran) 4 mg IV Q8H PRN PRN Reason: Nausea And Vomiting Sodium Chloride (Sodium Chloride Flush Syringe 10 Ml) 10 ml IV BID LIZZIE Sodium Chloride (Sodium Chloride Flush Syringe 10 Ml) 10 ml IV PRN PRN PRN Reason: LINE FLUSH Sodium Chloride (Sodium Chloride Flush Syringe 10 Ml) 10 ml IV PRN PRN PRN Reason: LINE FLUSH Review of Systems Cardiovascular: chest pain Exam - Constitutional Vitals: Temp Pulse Resp BP Pulse Ox 98.6 F 56 L 16 158/77 99 05/04/19 00:15 05/04/19 00:15 05/04/19 01:03 05/04/19 00:15 05/04/19 00:15 General appearance: Present: no acute distress - EENT Eyes: Present: PERRL ENT: hearing intact - Neck Neck: Present: supple, normal ROM - Respiratory Respiratory effort: normal Respiratory: bilateral: CTA - Cardiovascular Rhythm: regular Heart Sounds: Present: S1 & S2 - Extremities Extremities: no ischemia Extremity abnormal: edema Peripheral Pulses: within normal limits - Abdominal General gastrointestinal: Present: deferred Male genitourinary: Present: deferred - Rectal Rectal Exam: deferred - Integumentary Integumentary: Present: warm, dry - Musculoskeletal Musculoskeletal: strength equal bilaterally - Psychiatric Psychiatric: cooperative - Neurologic Neurologic: moves all extremities Results - Labs CBC & Chem 7: 05/04/19 03:24 05/04/19 03:24 Labs: Laboratory Last Values WBC 8.7 K/mm3 (4.5-11.0) 05/04/19 00:35 RBC 4.27 M/mm3 (3.65-5.03) 05/04/19 00:35 Hgb 12.8 gm/dl (11.8-15.2) 05/04/19 00:35 Hct 36.3 % (35.5-45.6) 05/04/19 00:35 MCV 85 fl (84-94) 05/04/19 00:35 MCH 30 pg (28-32) 05/04/19 00:35 MCHC 35 % (32-34) H 05/04/19 00:35 RDW 14.5 % (13.2-15.2) 05/04/19 00:35 Plt Count 188 K/mm3 (140-440) 05/04/19 00:35 Lymph % (Auto) 19.4 % (13.4-35.0) 05/04/19 00:35 [place] % (Auto) 5.9 % (0.0-7.3) 05/04/19 00:35 Eos % (Auto) 2.3 % (0.0-4.3) 05/04/19 00:35 Baso % (Auto) 0.7 % (0.0-1.8) 05/04/19 00:35 Lymph # 1.7 K/mm3 (1.2-5.4) 05/04/19 00:35 [place] # 0.5 K/mm3 (0.0-0.8) 05/04/19 00:35 Eos # 0.2 K/mm3 (0.0-0.4) 05/04/19 00:35 Baso # 0.1 K/mm3 (0.0-0.1) 05/04/19 00:35 Seg Neutrophils % 71.7 % (40.0-70.0) H 05/04/19 00:35 Seg Neutrophils # 6.3 K/mm3 (1.8-7.7) 05/04/19 00:35 Sodium 134 mmol/L (137-145) L 05/04/19 00:35 Potassium 4.2 mmol/L (3.6-5.0) 05/04/19 00:35 Chloride 98.9 mmol/L (98-107) 05/04/19 00:35 Carbon Dioxide 22 mmol/L (22-30) 05/04/19 00:35 17 mmol/L 05/04/19 00:35 BUN 21 mg/dL (9-20) H 05/04/19 00:35 1.4 mg/dL (0.8-1.5) 05/04/19 00:35 Estimated GFR 50 ml/min 05/04/19 00:35 15 % 05/04/19 00:35 Glucose 303 mg/dL (75-100) H 05/04/19 00:35 Calcium 9.4 mg/dL (8.4-10.2) 05/04/19 00:35 0.30 mg/dL (0.1-1.2) 05/04/19 00:35 AST 10 units/L (5-40) 05/04/19 00:35 ALT 12 units/L (7-56) 05/04/19 00:35 55 units/L (35-129) 05/04/19 00:35 < 0.010 ng/mL (0.00-0.029) 05/04/19 00:35 7.0 g/dL (6.3-8.2) 05/04/19 00:35 3.7 g/dL (3.9-5) L 05/04/19 00:35 1.1 % 05/04/19 00:35 Assessment and Plan Assessment and plan: 1. Chest pain rule out ACS. 2. Uncontrolled DM type II DM type 3. Hypertension 4. Hyperlipidemia Plan Admit to medtele Continue CE q6hr x 2 more Monitor vital signs Accu check ACHS with insulin per sliding scale Continue home meds Stress test in am Plan of care d/w pt, voiced understading Patient's condition and plan of care discussed with Dr. Weeks Advance Directives: Yes VTE prophylaxis?: Mechanical Plan of care discussed with patient/family: Yes <ELYSSA WEEKS - Last Filed: 05/05/19 23:24> History of Present Illness Date of admission: 05/04/19 02:13 Medications and Allergies Active Meds: Active Medications Acetaminophen (Tylenol) 650 mg PO Q4H PRN PRN Reason: Pain MILD(1-3)/Fever >100.5/LANTIGUA Enoxaparin Sodium (Lovenox) 40 mg SUB-Q QDAY LIZZIE Famotidine (Pepcid) 20 mg PO BID LIZZIE Lisinopril (Zestril) 20 mg PO QDAY LIZZIE Metoprolol Tartrate (Lopressor) 37.5 mg PO BID [facility] Morphine Sulfate (Morphine) 2 mg IV Q4H PRN PRN Reason: Pain, Moderate (4-6) Last Admin: 05/04/19 05:06 Dose: 2 mg Documented by: Ondansetron HCl (Zofran) 4 mg IV Q8H PRN PRN Reason: Nausea And Vomiting Pravastatin Sodium (Pravachol) 20 mg PO QHS [facility] Sodium Chloride (Sodium Chloride Flush Syringe 10 Ml) 10 ml IV BID [facility] Last Admin: 05/04/19 03:36 Dose: 10 ml Documented by: Sodium Chloride (Sodium Chloride Flush Syringe 10 Ml) 10 ml IV PRN PRN PRN Reason: LINE FLUSH Exam - Constitutional Vitals: Temp Pulse Resp BP Pulse Ox 97.5 F L 54 L 20 118/67 98 05/04/19 05:03 05/04/19 05:02 05/04/19 05:06 05/04/19 05:02 05/04/19 05:02 Results - Labs CBC & Chem 7: 05/05/19 05:44 05/05/19 05:44 Labs: Laboratory Last Values WBC 10.5 K/mm3 (4.5-11.0) 05/04/19 03:24 RBC 4.25 M/mm3 (3.65-5.03) 05/04/19 03:24 Hgb 12.4 gm/dl (11.8-15.2) 05/04/19 03:24 Hct 36.4 % (35.5-45.6) 05/04/19 03:24 MCV 86 fl (84-94) 05/04/19 03:24 MCH 29 pg (28-32) 05/04/19 03:24 MCHC 34 % (32-34) 05/04/19 03:24 RDW 14.3 % (13.2-15.2) 05/04/19 03:24 Plt Count 182 K/mm3 (140-440) 05/04/19 03:24 Lymph % (Auto) 14.1 % (13.4-35.0) 05/04/19 03:24 [place] % (Auto) 4.6 % (0.0-7.3) 05/04/19 03:24 Eos % (Auto) 1.0 % (0.0-4.3) 05/04/19 03:24 Baso % (Auto) 0.7 % (0.0-1.8) 05/04/19 03:24 Lymph # 1.5 K/mm3 (1.2-5.4) 05/04/19 03:24 [place] # 0.5 K/mm3 (0.0-0.8) 05/04/19 03:24 Eos # 0.1 K/mm3 (0.0-0.4) 05/04/19 03:24 Baso # 0.1 K/mm3 (0.0-0.1) 05/04/19 03:24 Seg Neutrophils % 79.6 % (40.0-70.0) H 05/04/19 03:24 Seg Neutrophils # 8.3 K/mm3 (1.8-7.7) H 05/04/19 03:24 Sodium 134 mmol/L (137-145) L 05/04/19 03:24 Potassium 4.6 mmol/L (3.6-5.0) 05/04/19 03:24 Chloride 99.8 mmol/L (98-107) 05/04/19 03:24 Carbon Dioxide 21 mmol/L (22-30) L 05/04/19 03:24 18 mmol/L 05/04/19 03:24 BUN 21 mg/dL (9-20) H 05/04/19 03:24 1.4 mg/dL (0.8-1.5) 05/04/19 03:24 Estimated GFR 50 ml/min 05/04/19 03:24 15 % 05/04/19 03:24 Glucose 284 mg/dL (75-100) H 05/04/19 03:24 Calcium 9.4 mg/dL (8.4-10.2) 05/04/19 03:24 0.30 mg/dL (0.1-1.2) 05/04/19 00:35 AST 10 units/L (5-40) 05/04/19 00:35 ALT 12 units/L (7-56) 05/04/19 00:35 55 units/L (35-129) 05/04/19 00:35 < 0.010 ng/mL (0.00-0.029) 05/04/19 03:24 7.0 g/dL (6.3-8.2) 05/04/19 00:35 3.7 g/dL (3.9-5) L 05/04/19 00:35 1.1 % 05/04/19 00:35 Assessment and Plan Assessment and plan: This is a 74-year-old man with a history of hypertension, diabetes, hyperlipidemia calcium emergency room with complaints of chest pain in the left substernal area which she describes as a sharp pain that was constant but is now becoming intermittent. Physical exam is benign, agree with stress test. Patient seen and examined, discussed with nurse practitioner
[2019-05-04] MEDS: SODIUM CHLORIDE FLUSH SYRINGE 10 ML IV SCH ×3 (03:36→22:53)
[2019-05-04 03:40] LABS: Basophils # (Auto) 0.1 K/mm3 (0.0-0.1); Basophils % (Auto) 0.7 % (0.0-1.8); Eosinophils # (Auto) 0.1 K/mm3 (0.0-0.4); Hematocrit 36.4 % (35.5-45.6); Hemoglobin 12.4 gm/dl (11.8-15.2); Lymphocytes # (Auto) 1.5 K/mm3 (1.2-5.4); Lymphocytes % (Auto) 14.1 % (13.4-35.0); Mean Corpuscular HGB Conc 34 % (32-34); Mean Corpuscular Volume 86 fl (84-94); Monocytes # (Auto) 0.5 K/mm3 (0.0-0.8); Monocytes % (Auto) 4.6 % (0.0-7.3); Platelet Count 182 K/mm3 (140-440); Red Blood Count 4.25 M/mm3 (3.65-5.03); Red Cell Distribution Width 14.3 % (13.2-15.2)
[2019-05-04 04:03] LABS: Calcium 9.4 mg/dL (8.4-10.2)
[2019-05-04] MEDS: MORPHINE IV PRN ×4 (05:06→22:57)
[2019-05-04] MEDS: ZESTRIL PO SCH (09:20)
[2019-05-04] MEDS: PEPCID PO SCH ×2 (09:21→22:53)
[2019-05-04] MEDS: LOPRESSOR PO SCH ×2 (09:21→22:52)
[2019-05-04] MEDS: LOVENOX SUB-Q SCH (09:23)
[2019-05-04] MEDS ORDERED: MAG-OX PO SCH (10:00)
--- NOTE | 2019-05-04 12:48 | Event Note ---
Date: 05/04/19 This is a follow-up from an admission earlier this morning. We will continue the plan as outlined in H&P. Total visit time 16 minutes with greater than 50% spent on correlation of care and counseling.
[2019-05-04 18:56] LABS: Chol/HDL Ratio 5.5 %
[2019-05-04] MEDS ORDERED: D50W (25GM) Syringe IV PRN (22:14)
[2019-05-04] MEDS: HumaLOG SUB-Q SCH (22:52)
[2019-05-04] MEDS: PRAVACHOL PO SCH (22:52)
[2019-05-05 06:08] LABS: Hematocrit 37.9 % (35.5-45.6); Hemoglobin 12.9 gm/dl (11.8-15.2); Mean Corpuscular HGB Conc 34 % (32-34); Mean Corpuscular Volume 87 fl (84-94); Platelet Count 169 K/mm3 (140-440); Red Blood Count 4.36 M/mm3 (3.65-5.03); Red Cell Distribution Width 14.4 % (13.2-15.2)
[2019-05-05 06:25] LABS: Calcium 9.1 mg/dL (8.4-10.2)
[2019-05-05] MEDS ORDERED: HumaLOG SUB-Q SCH (07:30)
[2019-05-05] MEDS: MORPHINE IV PRN ×2 (08:53→13:41)
[2019-05-05] MEDS: HumaLOG SUB-Q SCH ×4 (08:57→22:19)
[2019-05-05] MEDS ORDERED: ECOTRIN PO SCH (10:00)
[2019-05-05] MEDS ORDERED: LEXISCAN IV ONE (10:37)
--- NOTE | 2019-05-05 11:19 | Progress Note ---
<KUN BATISTA R - Last Filed: 05/05/19 11:16> Assessment and Plan Assessment and plan: Chest pain. Continue chest pain protocol. Follow-up Lexiscan results. Troponins are negative. EKG unremarkable. Cardiology consult. Elevated d-dimer. Check CT of the chest. Hypertension. Continue antihypertensive medications. Continue lisinopril. Diabetes mellitus type 2. Continue Accu-Cheks and sliding scale insulin. Lantus 20 units at bedtime Hyperlipidemia. Continue Pravachol 20 mg daily at bedtime History Interval history: Patient still complains of severe left-sided chest pain. Hospitalist Physical - Constitutional Vitals: Temp Pulse Resp BP Pulse Ox 98.0 F 55 L 18 145/66 99 05/05/19 08:31 05/05/19 08:31 05/05/19 08:31 05/05/19 08:31 05/05/19 08:31 General appearance: Present: no acute distress - EENT Eyes: Present: PERRL, EOM intact ENT: hearing intact, clear oral mucosa, dentition normal - Neck Neck: Present: supple, normal ROM - Respiratory Respiratory effort: normal Respiratory: bilateral: CTA - Cardiovascular Rhythm: regular Heart Sounds: Present: S1 & S2. Absent: gallop, rub - Extremities Extremities: no ischemia, No edema, Full ROM - Abdominal General gastrointestinal: soft, non-tender, non-distended, normal bowel sounds - Integumentary Integumentary: Present: clear, warm, dry - Neurologic Neurologic: CNII-XII intact, moves all extremities Results - Labs CBC & Chem 7: 05/05/19 05:44 05/05/19 05:44 Labs: Laboratory Last Values WBC 7.4 K/mm3 (4.5-11.0) 05/05/19 05:44 RBC 4.36 M/mm3 (3.65-5.03) 05/05/19 05:44 Hgb 12.9 gm/dl (11.8-15.2) 05/05/19 05:44 Hct 37.9 % (35.5-45.6) 05/05/19 05:44 MCV 87 fl (84-94) 05/05/19 05:44 MCH 30 pg (28-32) 05/05/19 05:44 MCHC 34 % (32-34) 05/05/19 05:44 RDW 14.4 % (13.2-15.2) 05/05/19 05:44 Plt Count 169 K/mm3 (140-440) 05/05/19 05:44 Lymph % (Auto) Water Filter Cleaner 05/05/19 05:44 [place] % (Auto) Water Filter Cleaner 05/05/19 05:44 Eos % (Auto) Water Filter Cleaner 05/05/19 05:44 Baso % (Auto) Water Filter Cleaner 05/05/19 05:44 Lymph # Water Filter Cleaner 05/05/19 05:44 [place] # Water Filter Cleaner 05/05/19 05:44 Eos # Water Filter Cleaner 05/05/19 05:44 Baso # Water Filter Cleaner 05/05/19 05:44 Seg Neutrophils % Water Filter Cleaner 05/05/19 05:44 Seg Neutrophils # Water Filter Cleaner 05/05/19 05:44 335.73 ng/mlDDU (0-234) H 05/05/19 09:02 Sodium 135 mmol/L (137-145) L 05/05/19 05:44 Potassium 4.9 mmol/L (3.6-5.0) 05/05/19 05:44 Chloride 100.9 mmol/L (98-107) 05/05/19 05:44 Carbon Dioxide 20 mmol/L (22-30) L 05/05/19 05:44 19 mmol/L 05/05/19 05:44 BUN 20 mg/dL (9-20) 05/05/19 05:44 1.3 mg/dL (0.8-1.5) 05/05/19 05:44 Estimated GFR 54 ml/min 05/05/19 05:44 15 % 05/05/19 05:44 Glucose 276 mg/dL (75-100) H 05/05/19 05:44 POC Glucose 265 (70-105) H 05/05/19 08:38 11.0 % (4-6) H 05/04/19 03:24 Calcium 9.1 mg/dL (8.4-10.2) 05/05/19 05:44 0.30 mg/dL (0.1-1.2) 05/04/19 00:35 AST 10 units/L (5-40) 05/04/19 00:35 ALT 12 units/L (7-56) 05/04/19 00:35 55 units/L (35-129) 05/04/19 00:35 < 0.010 ng/mL (0.00-0.029) 05/04/19 20:01 7.0 g/dL (6.3-8.2) 05/04/19 00:35 3.7 g/dL (3.9-5) L 05/04/19 00:35 1.1 % 05/04/19 00:35 Triglycerides 270 mg/dL (2-149) H 05/04/19 03:24 Cholesterol 187 mg/dL (50-199) 05/04/19 03:24 109 mg/dL (50-130) 05/04/19 03:24 34 mg/dL (40-59) L 05/04/19 03:24 5.50 % 05/04/19 03:24 Active Medications - Current Medications Current Medications: Generic Name Dose Route Start Last Admin Trade Name Freq PRN Reason Stop Dose Admin Acetaminophen 650 mg 05/04/19 02:37 Tylenol PO Q4H PRN Pain MILD(1-3)/Fever >100.5/LANTIGUA Dextrose 50 ml 05/04/19 22:14 D50w (25gm) Syringe IV PRN PRN Hypoglycemia Enoxaparin Sodium 40 mg 05/04/19 10:00 05/04/19 09:23 Lovenox SUB-Q 40 mg QDAY [facility] Administration Famotidine 20 mg 05/04/19 10:00 05/04/19 22:53 Pepcid PO 20 mg BID LIZZIE Administration Insulin Glargine 20 units 05/05/19 22:00 Lantus SUB-Q QHS [facility] Insulin Human Lispro 0 unit 05/04/19 23:00 05/05/19 08:57 Humalog SUB-Q Not Given [facility] Protocol Lisinopril 20 mg 05/04/19 10:00 05/04/19 09:20 Zestril PO 20 mg QDAY LIZZIE Administration Metoprolol Tartrate 37.5 mg 05/04/19 10:00 05/04/19 22:52 Lopressor PO 37.5 mg BID LIZZIE Administration Morphine Sulfate 2 mg 05/04/19 02:37 05/05/19 08:53 Morphine IV 2 mg Q4H PRN Administration Pain, Moderate (4-6) Ondansetron HCl 4 mg 05/04/19 02:37 Zofran IV Q8H PRN Nausea And Vomiting Pravastatin Sodium 20 mg 05/04/19 22:00 05/04/19 22:52 Pravachol PO 20 mg QHS LIZZIE Administration Sodium Chloride 10 ml 05/04/19 03:00 05/04/19 22:53 Sodium Chloride Flush Syringe 10 Ml IV 10 ml BID LIZZIE Administration Sodium Chloride 10 ml 05/04/19 02:37 Sodium Chloride Flush Syringe 10 Ml IV PRN PRN LINE FLUSH <EVELIO MUNOZ - Last Filed: 05/06/19 15:03> Hospitalist Physical - Constitutional Vitals: Temp Pulse Resp BP Pulse Ox 101.3 F H 56 L 20 142/66 97 05/06/19 08:44 05/06/19 12:13 05/06/19 08:44 05/06/19 12:13 05/06/19 12:13 Results - Labs CBC & Chem 7: 05/05/19 05:44 05/05/19 05:44 Labs: Laboratory Last Values WBC 7.4 K/mm3 (4.5-11.0) 05/05/19 05:44 RBC 4.36 M/mm3 (3.65-5.03) 05/05/19 05:44 Hgb 12.9 gm/dl (11.8-15.2) 05/05/19 05:44 Hct 37.9 % (35.5-45.6) 05/05/19 05:44 MCV 87 fl (84-94) 05/05/19 05:44 MCH 30 pg (28-32) 05/05/19 05:44 MCHC 34 % (32-34) 05/05/19 05:44 RDW 14.4 % (13.2-15.2) 05/05/19 05:44 Plt Count 169 K/mm3 (140-440) 05/05/19 05:44 Lymph % (Auto) Water Filter Cleaner 05/05/19 05:44 [place] % (Auto) Water Filter Cleaner 05/05/19 05:44 Eos % (Auto) Water Filter Cleaner 05/05/19 05:44 Baso % (Auto) Water Filter Cleaner 05/05/19 05:44 Lymph # Water Filter Cleaner 05/05/19 05:44 [place] # Water Filter Cleaner 05/05/19 05:44 Eos # Water Filter Cleaner 05/05/19 05:44 Baso # Water Filter Cleaner 05/05/19 05:44 Seg Neutrophils % Water Filter Cleaner 05/05/19 05:44 Seg Neutrophils # Water Filter Cleaner 05/05/19 05:44 335.73 ng/mlDDU (0-234) H 05/05/19 09:02 Sodium 135 mmol/L (137-145) L 05/05/19 05:44 Potassium 4.9 mmol/L (3.6-5.0) 05/05/19 05:44 Chloride 100.9 mmol/L (98-107) 05/05/19 05:44 Carbon Dioxide 20 mmol/L (22-30) L 05/05/19 05:44 19 mmol/L 05/05/19 05:44 BUN 20 mg/dL (9-20) 05/05/19 05:44 1.3 mg/dL (0.8-1.5) 05/05/19 05:44 Estimated GFR 54 ml/min 05/05/19 05:44 15 % 05/05/19 05:44 Glucose 276 mg/dL (75-100) H 05/05/19 05:44 POC Glucose 329 (70-105) H 05/06/19 12:36 11.0 % (4-6) H 05/04/19 03:24 Calcium 9.1 mg/dL (8.4-10.2) 05/05/19 05:44 0.30 mg/dL (0.1-1.2) 05/04/19 00:35 AST 10 units/L (5-40) 05/04/19 00:35 ALT 12 units/L (7-56) 05/04/19 00:35 55 units/L (35-129) 05/04/19 00:35 < 0.010 ng/mL (0.00-0.029) 05/04/19 20:01 7.0 g/dL (6.3-8.2) 05/04/19 00:35 3.7 g/dL (3.9-5) L 05/04/19 00:35 1.1 % 05/04/19 00:35 Triglycerides 270 mg/dL (2-149) H 05/04/19 03:24 Cholesterol 187 mg/dL (50-199) 05/04/19 03:24 109 mg/dL (50-130) 05/04/19 03:24 34 mg/dL (40-59) L 05/04/19 03:24 5.50 % 05/04/19 03:24 Active Medications - Current Medications Current Medications: Generic Name Dose Route Start Last Admin Trade Name Freq PRN Reason Stop Dose Admin Acetaminophen 650 mg 05/04/19 02:37 05/05/19 18:50 Tylenol PO 650 mg Q4H PRN Administration Pain MILD(1-3)/Fever >100.5/LANTIGUA Dextrose 50 ml 05/04/19 22:14 D50w (25gm) Syringe IV PRN PRN Hypoglycemia Enoxaparin Sodium 40 mg 05/04/19 10:00 05/06/19 10:35 Lovenox SUB-Q 40 mg QDAY LIZZIE Administration Famotidine 20 mg 05/04/19 10:00 05/06/19 10:30 Pepcid PO 20 mg BID LIZZIE Administration Glipizide 10 mg 05/06/19 10:00 05/06/19 10:30 Glucotrol PO 10 mg DAILY LIZZIE Administration Guaifenesin 200 mg 05/06/19 06:14 05/06/19 06:37 Robitussin PO 200 mg Q4H PRN Administration Cough Insulin Glargine 20 units 05/05/19 22:00 05/05/19 22:21 Lantus SUB-Q 20 units QHS LIZZIE Administration Insulin Human Lispro 0 unit 05/04/19 23:00 05/06/19 12:59 Humalog SUB-Q Not Given ACHS [facility] Protocol Lisinopril 20 mg 05/04/19 10:00 05/06/19 10:31 Zestril PO 20 mg QDAY LIZZIE Administration Metformin HCl 1,000 mg 05/05/19 22:00 05/06/19 10:30 Glucophage PO 1,000 mg BID LIZZIE Administration Metoprolol Tartrate 37.5 mg 05/04/19 10:00 05/06/19 10:31 Lopressor PO 37.5 mg BID LIZZIE Administration Morphine Sulfate 2 mg 05/04/19 02:37 05/06/19 10:44 Morphine IV 2 mg Q4H PRN Administration Pain, Moderate (4-6) Ondansetron HCl 4 mg 05/04/19 02:37 Zofran IV Q8H PRN Nausea And Vomiting Pravastatin Sodium 20 mg 05/04/19 22:00 05/05/19 22:17 Pravachol PO 20 mg QHS LIZZIE Administration Sodium Chloride 10 ml 05/04/19 03:00 05/06/19 10:35 Sodium Chloride Flush Syringe 10 Ml IV 10 ml BID LIZZIE Administration Sodium Chloride 10 ml 05/04/19 02:37 Sodium Chloride Flush Syringe 10 Ml IV PRN PRN LINE FLUSH Tramadol HCl 50 mg 05/05/19 18:00 05/06/19 06:37 Ultram PO 50 mg Q6HR PRN Administration Pain Nutrition/Malnutrition Assess - Dietary Evaluation Nutrition/Malnutrition Findings: Nutrition Notes Start: 05/05/19 18:02 Freq: Status: Active Protocol: Document 05/05/19 18:02 RM (Rec: 05/05/19 18:04 RM [id number]) Nutrition Notes Need for Assessment generated from: MD Order Initial or Follow up Assessment Current Diagnosis Diabetes,Hypertension, Hyperlipidemia Labs/Tests A1c 11 Subjective/Other Information Consulted for DM diet education. Pt stated he had not been previously educated. Reviewed DM diet education. Gave handout. #1 Nutrition Diagnosis Food and nutrition-related knowledge deficit Etiology lack of prior education As Evidenced by Signs and Symptoms no prior knowledge of need for food and nutrition recommendations Nutrition Intervention Teaching Recipient Patient Learning Readiness Good Teaching Methods Discussion,Handout Response to Teaching Verbalize understanding Education Handouts Provided Carbohydrate counting for people with diabetes Barriers to Learning No Barriers RD phone number provided Yes Patient aware of follow up options Yes Goal #1 Utilize carbohydrate counting Revisit per MD consult or patient Sign Off request:
[2019-05-05] MEDS: LOVENOX SUB-Q SCH (13:41)
[2019-05-05] MEDS: LOPRESSOR PO SCH ×2 (13:42→22:16)
[2019-05-05] MEDS: PEPCID PO SCH ×2 (13:42→22:17)
[2019-05-05] MEDS: ZESTRIL PO SCH (13:42)
[2019-05-05] MEDS: SODIUM CHLORIDE FLUSH SYRINGE 10 ML IV SCH ×2 (13:43→22:25)
[2019-05-05] MEDS ORDERED: LANTUS SUB-Q SCH (22:00)
[2019-05-05] MEDS: ULTRAM PO PRN (22:17)
[2019-05-05] MEDS: PRAVACHOL PO SCH (22:17)
[2019-05-05] MEDS: GLUCOPHAGE PO SCH (22:19)
--- NOTE | 2019-05-06 04:41 | Treadmill Report ---
THALLIUM STRESS TEST LEFT VENTRICLE: Left ventricular chamber size is within normal spread. Perfusion study demonstrates homogeneous uptake of the tracer in all segments, no significant perfusion defects identified. Gated analysis demonstrates normal left ventricular systolic function, ejection fraction 56%. CONCLUSION: Normal myocardial perfusion study. JOB# [id number] CA/NTS
[2019-05-06] MEDS ORDERED: ROBITUSSIN PO PRN (06:14)
[2019-05-06] MEDS: ULTRAM PO PRN ×2 (06:37→21:34)
[2019-05-06] MEDS ORDERED: LEXISCAN IV ONE (06:55)
[2019-05-06] MEDS: HumaLOG SUB-Q SCH ×3 (08:40→18:40)
[2019-05-06] MEDS: GLUCOTROL PO SCH (10:30)
[2019-05-06] MEDS: PEPCID PO SCH ×2 (10:30→21:34)
[2019-05-06] MEDS: GLUCOPHAGE PO SCH ×2 (10:30→21:33)
[2019-05-06] MEDS: ZESTRIL PO SCH (10:31)
[2019-05-06] MEDS: LOPRESSOR PO SCH ×2 (10:31→21:33)
[2019-05-06] MEDS: LOVENOX SUB-Q SCH (10:35)
[2019-05-06] MEDS: SODIUM CHLORIDE FLUSH SYRINGE 10 ML IV SCH (10:35)
[2019-05-06] MEDS: MORPHINE IV PRN ×2 (10:44→21:39)
--- NOTE | 2019-05-06 15:04 | Cat Scan Report ---
PROCEDURE: CT ANGIO CHEST TECHNIQUE: Computerized tomographic angiography of the chest was performed after the IV injection of iodinated nonionic contrast including image processing. The image data was postprocessed using 2-di mensional multiplanar reformatted (MPR) and 3-dimensional (MIP and/or volume rendered) techniques. Au tomated exposure control, adjustment of mA and/or kV according to patient size, or iterative reconstr uction dose optimization techniques were utilized. CT DOSE LENGTH PRODUCT: 513.3 mGycm HISTORY: persistant CP,elevated Ddimers/evaluate for PE COMPARISONS: None . FINDINGS: Heart and pericardium: Normal. Thoracic aorta: Mild unfolding of the thoracic aorta. Scattered atherosclerotic calcifications. Mild calcifications of the aortic root. Pulmonary vasculature: No filling defect to suggest pulmonary embolism. Lymph nodes: No enlarged thoracic lymph nodes. Lungs: No focal consolidation. No suspicious nodule or mass. Pleural space: No effusion, thickening, or pneumothorax. Musculoskeletal structures: No significant abnormality. Upper abdominal structures: No significant abnormality. IMPRESSION: No evidence of pulmonary embolism. No acute intrathoracic pathology . This document is electronically signed by Sonali Gates MD., May 06 2019 03:01:59 PM ET
--- NOTE | 2019-05-06 16:40 | Progress Note ---
Assessment and Plan Assessment and plan: --Chest pain: Noncardiac chest pain Stress test negative for reversible ischemia, normal LV function EF 56% Symptoms resolved --GERD; chest pain secondary to GERD , Protonix --Elevated d-dimer:. Check CTA of the chest to rule out PE Lower extremity venous Doppler to rule out DVT --Hypertension. Continue antihypertensive medications. Continue lisinopril. --Diabetes mellitus type 2:uncontrolled Continue Accu-Cheks and sliding scale insulin.increase Lantus 24 units at bed time, Hb A1c 11.0 and diabetic diet, nurse at discharge for disease monitoring --Hyponatremia: Probably pseudohyponatremia Due to hyperglycemia,Increase lantus dose --Hyperlipidemia. Continue Pravachol 20 mg daily at bedtime --DVT prophylaxis; Lovenox Follow CTA chest, lower extremity venous Doppler If negative and if patient is stable , discharge home tomorrow Plan of care reviewed with the patient and his nurse History Interval history: Patient seen and examined medical records reviewed No new events reported by the nursing staff Has elevated D dimers, will check CTA chest to rule out PE Alert awake oriented Vital signs reviewed Hospitalist Physical - Constitutional Vitals: Temp Pulse Resp BP Pulse Ox 101.3 F H 56 L 20 142/66 97 05/06/19 08:44 05/06/19 12:13 05/06/19 08:44 05/06/19 12:13 05/06/19 12:13 General appearance: Present: no acute distress, well-nourished - EENT Eyes: Present: PERRL, EOM intact - Neck Neck: Present: supple, normal ROM - Respiratory Respiratory effort: normal Respiratory: bilateral: diminished, negative: rales, rhonchi, wheezing - Cardiovascular Rhythm: regular Heart Sounds: Present: S1 & S2 - Extremities Extremities: no ischemia, No edema - Abdominal General gastrointestinal: soft, non-tender, non-distended, normal bowel sounds - Integumentary Integumentary: Present: clear, warm - Psychiatric Psychiatric: appropriate mood/affect, cooperative - Neurologic Neurologic: CNII-XII intact, moves all extremities Results - Labs CBC & Chem 7: 05/05/19 05:44 05/05/19 05:44 Labs: Laboratory Last Values WBC 7.4 K/mm3 (4.5-11.0) 05/05/19 05:44 RBC 4.36 M/mm3 (3.65-5.03) 05/05/19 05:44 Hgb 12.9 gm/dl (11.8-15.2) 05/05/19 05:44 Hct 37.9 % (35.5-45.6) 05/05/19 05:44 MCV 87 fl (84-94) 05/05/19 05:44 MCH 30 pg (28-32) 05/05/19 05:44 MCHC 34 % (32-34) 05/05/19 05:44 RDW 14.4 % (13.2-15.2) 05/05/19 05:44 Plt Count 169 K/mm3 (140-440) 05/05/19 05:44 Lymph % (Auto) [employer] Laboratory Manager 05/05/19 05:44 Traill % (Auto) Cytogenetics Laboratory Manager 05/05/19 05:44 Eos % (Auto) Cytogenetics Laboratory Manager 05/05/19 05:44 Baso % (Auto) Cytogenetics Laboratory Manager 05/05/19 05:44 Lymph # [employer] Laboratory Manager 05/05/19 05:44 Traill # [employer]ogen[employer] Laboratory Manager 05/05/19 05:44 Eos # [employer]ogen[employer] Laboratory Manager 05/05/19 05:44 Baso # [employer]ogen[employer] Laboratory Manager 05/05/19 05:44 Seg Neutrophils % [employer]ogen[employer] Laboratory Manager 05/05/19 05:44 Seg Neutrophils # Cytogenetics Laboratory Manager 05/05/19 05:44 335.73 ng/mlDDU (0-234) H 05/05/19 09:02 Sodium 135 mmol/L (137-145) L 05/05/19 05:44 Potassium 4.9 mmol/L (3.6-5.0) 05/05/19 05:44 Chloride 100.9 mmol/L (98-107) 05/05/19 05:44 Carbon Dioxide 20 mmol/L (22-30) L 05/05/19 05:44 19 mmol/L 05/05/19 05:44 BUN 20 mg/dL (9-20) 05/05/19 05:44 1.3 mg/dL (0.8-1.5) 05/05/19 05:44 Estimated GFR 54 ml/min 05/05/19 05:44 15 % 05/05/19 05:44 Glucose 276 mg/dL (75-100) H 05/05/19 05:44 POC Glucose 329 (70-105) H 05/06/19 12:36 11.0 % (4-6) H 05/04/19 03:24 Calcium 9.1 mg/dL (8.4-10.2) 05/05/19 05:44 0.30 mg/dL (0.1-1.2) 05/04/19 00:35 AST 10 units/L (5-40) 05/04/19 00:35 ALT 12 units/L (7-56) 05/04/19 00:35 55 units/L (35-129) 05/04/19 00:35 < 0.010 ng/mL (0.00-0.029) 05/04/19 20:01 7.0 g/dL (6.3-8.2) 05/04/19 00:35 3.7 g/dL (3.9-5) L 05/04/19 00:35 1.1 % 05/04/19 00:35 Triglycerides 270 mg/dL (2-149) H 05/04/19 03:24 Cholesterol 187 mg/dL (50-199) 05/04/19 03:24 109 mg/dL (50-130) 05/04/19 03:24 34 mg/dL (40-59) L 05/04/19 03:24 5.50 % 05/04/19 03:24 Active Medications - Current Medications Current Medications: Generic Name Dose Route Start Last Admin Trade Name Freq PRN Reason Stop Dose Admin Acetaminophen 650 mg 05/04/19 02:37 05/05/19 18:50 Tylenol PO 650 mg Q4H PRN Administration Pain MILD(1-3)/Fever >100.5/LANTIGUA Dextrose 50 ml 05/04/19 22:14 D50w (25gm) Syringe IV PRN PRN Hypoglycemia Enoxaparin Sodium 40 mg 05/04/19 10:00 05/06/19 10:35 Lovenox SUB-Q 40 mg QDAY LIZZIE Administration Famotidine 20 mg 05/04/19 10:00 05/06/19 10:30 Pepcid PO 20 mg BID LIZZIE Administration Glipizide 10 mg 05/06/19 10:00 05/06/19 10:30 Glucotrol PO 10 mg DAILY LIZZIE Administration Guaifenesin 200 mg 05/06/19 06:14 05/06/19 06:37 Robitussin PO 200 mg Q4H PRN Administration Cough Insulin Glargine 20 units 05/05/19 22:00 05/05/19 22:21 Lantus SUB-Q 20 units QHS LIZZIE Administration Insulin Human Lispro 0 unit 05/04/19 23:00 05/06/19 12:59 Humalog SUB-Q Not Given ACHS [facility] Protocol Lisinopril 20 mg 05/04/19 10:00 05/06/19 10:31 Zestril PO 20 mg QDAY LIZZIE Administration Metformin HCl 1,000 mg 05/05/19 22:00 05/06/19 10:30 Glucophage PO 1,000 mg BID LIZZIE Administration Metoprolol Tartrate 37.5 mg 05/04/19 10:00 05/06/19 10:31 Lopressor PO 37.5 mg BID LIZZIE Administration Morphine Sulfate 2 mg 05/04/19 02:37 05/06/19 10:44 Morphine IV 2 mg Q4H PRN Administration Pain, Moderate (4-6) Ondansetron HCl 4 mg 05/04/19 02:37 Zofran IV Q8H PRN Nausea And Vomiting Pravastatin Sodium 20 mg 05/04/19 22:00 05/05/19 22:17 Pravachol PO 20 mg QHS LIZZIE Administration Sodium Chloride 10 ml 05/04/19 03:00 05/06/19 10:35 Sodium Chloride Flush Syringe 10 Ml IV 10 ml BID LIZZIE Administration Sodium Chloride 10 ml 05/04/19 02:37 Sodium Chloride Flush Syringe 10 Ml IV PRN PRN LINE FLUSH Tramadol HCl 50 mg 05/05/19 18:00 05/06/19 06:37 Ultram PO 50 mg Q6HR PRN Administration Pain Nutrition/Malnutrition Assess - Dietary Evaluation Nutrition/Malnutrition Findings: Nutrition Notes Start: 05/05/19 18:02 Freq: Status: Active Protocol: Document 05/05/19 18:02 RM (Rec: 05/05/19 18:04 [id number]) Nutrition Notes Need for Assessment generated from: MD Order Initial or Follow up Assessment Current Diagnosis Diabetes,Hypertension, Hyperlipidemia Labs/Tests A1c 11 Subjective/Other Information Consulted for DM diet education. Pt stated he had not been previously educated. Reviewed DM diet education. Gave handout. #1 Nutrition Diagnosis Food and nutrition-related knowledge deficit Etiology lack of prior education As Evidenced by Signs and Symptoms no prior knowledge of need for food and nutrition recommendations Nutrition Intervention Teaching Recipient Patient Learning Readiness Good Teaching Methods Discussion,Handout Response to Teaching Verbalize understanding Education Handouts Provided Carbohydrate counting for people with diabetes Barriers to Learning No Barriers RD phone number provided Yes Patient aware of follow up options Yes Goal #1 Utilize carbohydrate counting Revisit per MD consult or patient Sign Off request:
[2019-05-06] MEDS ORDERED: LANTUS SUB-Q SCH (16:51)
[2019-05-06] MEDS: PRAVACHOL PO SCH (21:34)
[2019-05-07] MEDS: HumaLOG SUB-Q SCH ×3 (00:16→13:11)
[2019-05-07] MEDS: SODIUM CHLORIDE FLUSH SYRINGE 10 ML IV SCH ×2 (00:18→09:14)
[2019-05-07] MEDS: GLUCOPHAGE PO SCH (09:12)
[2019-05-07] MEDS: LOVENOX SUB-Q SCH (09:12)
[2019-05-07] MEDS: PEPCID PO SCH (09:12)
[2019-05-07] MEDS: ZESTRIL PO SCH (09:12)
[2019-05-07] MEDS: ULTRAM PO PRN (09:20)
[2019-05-07] MEDS: GLUCOTROL PO SCH (11:10)
[2019-05-07] MEDS: LOPRESSOR PO SCH (11:11)
[2019-05-07 12:21] VITALS: BP 139/69
--- NOTE | 2019-05-07 14:16 | Discharge Summary ---
Providers - Providers Date of Admission: 05/06/19 11:46 Date of discharge: 05/07/19 Attending physician: EVELIO MUNOZ 05/04/19 Consult to Cardiac Rehabilitation [CONS] Routine Reason For Exam: Phase I 05/04/19 22:14 Consult to Dietitian/Nutrition [CONS] Routine Physician Instructions: Reason For Exam: Reason for Consult: Diet education Primary care physician: [facility], Hospitalization Reason for admission: chest pain Condition: Fair Pertinent studies: Stress test negative for reversible ischemia, normal LV function EF 56% Chest x-ray; no acute abnormality CTA chest; no evidence of PE Lower extremity venous Doppler; no DVT in either leg Hospital course: Patient is a 74-year-old male with PMHx of DM type II, HTN, hyperlipidemia who presents to the ER with c/o chest pain x1day. Pt states that the chest pain started in the this morning and lasted the whole day. He reports that the pain is intermittent located in the left chest area with no radiation. Patient denies any associated symptoms, he denies diaphoresis, denies palpitations, denies nausea, denies vomiting. Patient reports improvement of the chest pain with morphine, he denies prior history of chest pain or heart disease, Patient was admitted and symptomatically managed subsequently underwent stress test which was negative for reversible ischemia Patient had elevated d-dimer, CTA chest negative for PE, lower extremity venous Doppler negative for DVT Patient had some bronchitis and upper respiratory symptoms which was treated symptomatically The patient is comfortable in no new complaints but stable physical examination unremarkable Stable at discharge Discharge diagnosis: --Chest pain: Noncardiac chest pain Stress test negative for reversible ischemia, normal LV function EF 56% Symptoms resolved --GERD; chest pain secondary to GERD , Protonix --Elevated d-dimer:. Check CTA of the chest to rule out PE Lower extremity venous Doppler to rule out DVT --Hypertension. Continue antihypertensive medications. Continue lisinopril. --Diabetes mellitus type 2:uncontrolled Continue Accu-Cheks and sliding scale insulin.increase Lantus 24 units at bedtime, Hb A1c 11.0 and diabetic diet, nurse at discharge for disease monitoring --Hyponatremia: Probably pseudohyponatremia Due to hyperglycemia,Increase lantus dose --Hyperlipidemia. Continue Pravachol 20 mg daily at bedtime --DVT prophylaxis; Lovenox Follow CTA chest, lower extremity venous Doppler If negative and if patient is stable , discharge home tomorrow Plan of care reviewed with the patient and his nurse Disposition: DC-01 TO HOME OR SELFCARE Time spent for discharge: 32 min Core Measure Documentation - Palliative Care Palliative Care/ Comfort Measures: Not Applicable - Core Measures Any of the following diagnoses?: none Exam - Constitutional Vitals: Temp Pulse Resp BP Pulse Ox 97.6 F 57 L 16 139/69 96 05/07/19 12:05/07/19 12:05/07/19 12:05/07/19 12:05/07/19 12:17 General appearance: Present: no acute distress, well-nourished - EENT Eyes: Present: PERRL, EOM intact - Neck Neck: Present: supple, normal ROM - Respiratory Respiratory effort: normal Respiratory: negative: rales, rhonchi, wheezing - Cardiovascular Rhythm: regular Heart Sounds: Present: S1 & S2 - Extremities Extremities: no ischemia, No edema - Abdominal General gastrointestinal: Present: soft, non-tender, non-distended, normal bowel sounds - Integumentary Integumentary: Present: clear, warm - Musculoskeletal Musculoskeletal: strength equal bilaterally, generalized weakness - Psychiatric Psychiatric: appropriate mood/affect, cooperative - Neurologic Neurologic: CNII-XII intact, moves all extremities Plan Diet: diabetic [facility]Primary Care Provider[facility] - 7 Days Prescriptions: Insulin Glargine [Lantus VIAL] 24 units SUB-Q QHS 30 Days units AtorvaSTATin [Lipitor] 20 mg PO QHS #30 tab guaiFENesin [Robitussin] 10 ml PO Q4H PRN 10 Days oral.liqd PRN Reason: Cough
--- NOTE | 2019-05-07 16:41 | Vascular Lab Report ---
PROCEDURE: VL VENOUS DUPLEX LE BILAT HISTORY: elevated d dimer, r/o DVT FINDINGS: Real-time ultrasound of the right leg and left leg was performed using grayscale and color Doppler images. These images demonstrate no evidence of deep venous thrombus in the right and left common femoral vei n, superficial femoral vein, popliteal vein or posterior tibial vein. IMPRESSION: No DVT in either leg This document is electronically signed by Enrrique Babin MD., May 07 2019 04:39:30 PM ET
== END 2019-05-07 17:18 | disposition home or self-care (01) | DRG 392 ==
LOC: ED 23:54 → 4A 05-04 02:13 → OBSVTOIN 05-06 11:46
PROVIDERS: ADMIT Internal Medicine; ATTEND Internal Medicine
DX: K21.9 Gastro-esophageal reflux disease without esophagitis (principal); E87.1 Hypo-osmolality and hyponatremia; I10 Essential (primary) hypertension; E11.9 Type 2 diabetes mellitus without complications; E78.5 Hyperlipidemia, unspecified; E78.00 Pure hypercholesterolemia, unspecified; Z79.84 Long term (current) use of oral hypoglycemic drugs; Z79.899 Other long term (current) drug therapy; Z88.8 Allergy status to other drugs, medicaments and biological substances; I25.2 Old myocardial infarction; Z90.49 Acquired absence of other specified parts of digestive tract
CPT/HCPCS: 36415; 71045; 71275; 78452; 80048; 80053; 80061; 82962; 83036; 84484; 85025; 85379; 93005; 93010; 93017; 93970; 94760; G0378; A9270-GY; A9502; J1650; J1815; J2270; J2405; J2785; Q9967

== ENCOUNTER 2019-10-21 13:30 | Emergency (ER) | payer MEDICARE ==
--- NOTE | 2019-10-21 14:14 | Event Note ---
ED Screening Note Date of service: 10/21/19 Time: 14:10 ED Screening Note: 79 yo male presents with left sided head, neck, shoulder pain x 4 days worsening today no trauma, injuries denies dizziness, blurred vision states was told by PCP to get an MRI This initial assessment/diagnostic orders/clinical plan/treatment(s) is/are subject to change based on patients health status, clinical progression and re- assessment by fellow clinical providers in the ED. Further treatment and workup at subsequent clinical providers discretion. Patient/guardian urged not to elope from the ED as their condition may be serious if not clinically assessed and managed. Initial orders include: CT head
[2019-10-21] MEDS ORDERED: traMADol 50 MG TAB PO ONE (14:56)
[2019-10-21] MEDS ORDERED: ACETAMINOPHEN 325 MG TAB PO ONE (14:56)
--- NOTE | 2019-10-21 14:56 | Emergency Department Report ---
ED General Adult HPI - General Chief complaint: Extremity Problem,Nontraumatic Stated complaint: MRI PER DOCTOR Time Seen by Provider: 10/21/19 14:35 Source: patient, RN notes reviewed, old records reviewed Mode of arrival: Ambulatory Limitations: No Limitations - History of Present Illness Initial comments: Primary care Dr.: Dr. Méndez The patient is a 74-year-old gentleman, past medical history includes type 2 diabetes, hypertension, high cholesterol, sent to the emergency room today by his primary care doctor for cervical radicular symptoms. He complains of nonstenotic left-sided burning left-sided neck pain, facial pain, that radiates down his left upper extremity and left lower extremity. He does not endorse any deficits in strength, and he denies bladder or bowel retention, incontinence. He denies saddle anesthesia. -: Gradual Location: face, left, right, upper extremity, lower extremity Radiation: extremity Quality: burning Consistency: intermittent Improves with: rest Worsens with: movement - Related Data Home Medications Medication Instructions Recorded Confirmed Last Taken Lisinopril [Zestril TAB] 20 mg PO QDAY 02/11/14 05/04/19 01/18/17 metFORMIN [Glucophage] 1,000 mg PO BID 02/11/14 05/04/19 01/18/17 Magnesium Oxide [Mag-Ox] 400 mg PO DAILY 01/19/17 05/04/19 01/18/17 Metoprolol [Lopressor TAB] 37.5 mg PO BID 01/19/17 05/04/19 01/18/17 glipiZIDE [Glucotrol] 10 mg PO DAILY 01/19/17 05/04/19 01/18/17 raNITIdine HCl [Zantac] 150 mg PO BID 01/19/17 05/04/19 01/18/17 Previous Rx's Medication Instructions Recorded Last Taken Type traMADoL [Ultram 50 MG tab] 50 mg PO Q6HR PRN #14 tablet 01/19/17 Unknown Rx AtorvaSTATin [Lipitor] 20 mg PO QHS #30 tab 05/07/19 Unknown Rx Insulin Glargine [Lantus VIAL] 24 units SUB-Q QHS 30 Days units 05/07/19 Unknown Rx guaiFENesin [Robitussin] 10 ml PO Q4H PRN 10 Days oral.liqd 05/07/19 Unknown Rx Acetaminophen [Acetaminophen ER 650 mg PO Q8HR PRN #20 tablet.er 10/21/19 Unknown Rx TAB] traMADoL [Ultram 50 MG tab] 50 mg PO Q6HR PRN #20 tablet 10/21/19 Unknown Rx Allergies Allergy/AdvReac Type Severity Reaction Status Date / Time aspirin Allergy Swelling Verified 10/21/19 13:40 iron Allergy Itching Verified 10/21/19 13:40 ED Review of Systems ROS: Stated complaint: MRI PER DOCTOR Other details as noted in HPI Constitutional: denies: fever Eyes: denies: eye discharge Cardiovascular: denies: syncope Gastrointestinal: denies: vomiting Genitourinary: denies: dysuria Musculoskeletal: myalgia Neurological: paresthesias. denies: weakness ED Past Medical Hx - Past Medical History Previous Medical History?: Yes Hx Hypertension: Yes Hx Heart Attack/AMI: Yes (08/2016) Hx Diabetes: Yes Additional medical history: High Cholesterol - Surgical History Past Surgical History?: Yes Hx Cholecystectomy: Yes - Social History Smoking Status: Never Smoker Substance Use Type: None - Medications Home Medications: Home Medications Medication Instructions Recorded Confirmed Last Taken Type Lisinopril [Zestril TAB] 20 mg PO QDAY 02/11/14 05/04/19 01/18/17 History metFORMIN [Glucophage] 1,000 mg PO BID 02/11/14 05/04/19 01/18/17 History Magnesium Oxide [Mag-Ox] 400 mg PO DAILY 01/19/17 05/04/19 01/18/17 History Metoprolol [Lopressor TAB] 37.5 mg PO BID 01/19/17 05/04/19 01/18/17 History glipiZIDE [Glucotrol] 10 mg PO DAILY 01/19/17 05/04/19 01/18/17 History raNITIdine HCl [Zantac] 150 mg PO BID 01/19/17 05/04/19 01/18/17 History traMADoL [Ultram 50 MG tab] 50 mg PO Q6HR PRN #14 tablet 01/19/17 05/04/19 Unknown Rx AtorvaSTATin [Lipitor] 20 mg PO QHS #30 tab 05/07/19 Unknown Rx Insulin Glargine [Lantus VIAL] 24 units SUB-Q QHS 30 Days units 05/07/19 Unknown Rx guaiFENesin [Robitussin] 10 ml PO Q4H PRN 10 Days oral.liqd 05/07/19 Unknown Rx Acetaminophen [Acetaminophen ER 650 mg PO Q8HR PRN #20 tablet.er 10/21/19 Unknown Rx TAB] traMADoL [Ultram 50 MG tab] 50 mg PO Q6HR PRN #20 tablet 10/21/19 Unknown Rx ED Physical Exam - General Limitations: No Limitations General appearance: alert, in no apparent distress - Head Head exam: Present: atraumatic, normocephalic - Eye Eye exam: Present: normal appearance, PERRL, EOMI, other (visual acuity intact to finger counting and color perception at a closest). Absent: nystagmus - ENT ENT exam: Present: normal exam, normal orophraynx, mucous membranes moist, normal external ear exam - Neck Neck exam: Present: normal inspection, full ROM, other (there is reproducible left-sided paracervical tenderness. There is no carotid bruit. There is no expansile hematoma.). Absent: tenderness, meningismus - Respiratory Respiratory exam: Present: normal lung sounds bilaterally. Absent: respiratory distress - Cardiovascular Cardiovascular Exam: Present: regular rate, normal rhythm, normal heart sounds. Absent: bradycardia, tachycardia, irregular rhythm, systolic murmur, diastolic murmur, rubs, gallop - GI/Abdominal GI/Abdominal exam: Present: soft. Absent: distended, tenderness, guarding, rebound, rigid, pulsatile mass - Rectal Rectal exam: Present: deferred - Extremities Exam Extremities exam: Present: normal inspection, full ROM, other (2+ pulses noted in the bilateral upper and lower extremities. There is no long bony tenderness. The muscular compartments are soft. The pelvis is stable.). Absent: calf tenderness - Back Exam Back exam: Present: normal inspection, full ROM, paraspinal tenderness. Absent: tenderness, vertebral tenderness - Neurological Exam Neurological exam: Present: alert, other (there is no facial droop. The tongue is midline. The extraocular movements are intact bilaterally. ). Absent: motor sensory deficit (downgoing plantar reflexes bilaterally. 2+ quadriceps reflexes and sensation is intact to light touch and proprioception in the bilateral upper and lower extremities.) - Psychiatric Psychiatric exam: Present: anxious - Skin Skin exam: Present: warm, dry, intact, normal color. Absent: rash ED Course Vital Signs 10/21/19 10/21/19 10/21/19 14:11 14:44 16:41 Temperature 98.3 F 97.7 F 98.6 F Pulse Rate 64 55 L Respiratory 18 18 18 Rate Blood Pressure 182/77 Blood Pressure 163/89 157/84 [Right] O2 Sat by Pulse 99 98 100 Oximetry - Reevaluation(s) Reevaluation #1: 10/21/19 16:53 Patient able to walk without significant difficulty. X-ray of the cervical spine, interpreted by me, negative for acute disease. ED Medical Decision Making - Lab Data Vital Signs 10/21/19 10/21/19 14:11 14:44 Temperature 98.3 F 97.7 F Pulse Rate 64 Respiratory 18 18 Rate Blood Pressure 182/77 Blood Pressure 163/89 [Right] O2 Sat by Pulse 99 98 Oximetry - Radiology Data Radiology results: pending, image reviewed - Medical Decision Making Differential diagnosis, including but not limited to: Cervical radiculopathy, neuropathy Assessment and plan: 74-year-old gentleman with presumed cervical radiculopathy. He is afebrile with reassuring vital signs with slightly elevated blood pressure. His exam does not demonstrate any immediately emergent disabling deficits. Strength, sensation and reflexes are appropriate at this time. He does not meet criteria for emergent acquisition of MRI at this time. Contact his primary care doctor, and we discussed this. She informed me that she sent the patient here to the ER because it may take at least 2 weeks for him to get an MRI as an outpatient. She has requested x-ray of the cervical spine which we will obtain as a courtesy, and she indicated she will further manage the patient as an outpatient, and expedite outpatient coordinated MRI acquisition. Critical care attestation.: If time is entered above; I have spent that time in minutes in the direct care of this critically ill patient, excluding procedure time. ED Disposition Clinical Impression: Radicular pain Disposition: DC-01 TO HOME OR SELFCARE Is pt being admited?: No Does the pt Need Aspirin: No Condition: Stable Instructions: Cervical Radiculopathy (ED) Additional Instructions: Rest, avoid heavy lifting, and avoid strenuous physical activities. Patient may take [id number] Tylenol, alternating tramadol as needed for pain. Recommend following up with her primary care doctor, or any of the listed spine specialists within the next 5-7 days. Avoid heavy lifting, and avoid blunt trauma. Return to the emergency room right away with extremity weakness, bladder or bowel retention or incontinence, anesthesia and/or numbness over the genitals or rectum, or any new, worsening or different symptoms not present on the initial emergency room evaluation. X-ray of the cervical spine was interpreted by the ER physician as being negative for acute findings. However, final formal radiology interpretation will be rendered within the next 12 hours. Please have your primary care doctor contact the medical records department to obtain formal x-ray interpretations, as occasionally there will be differences in interpretation. Prescriptions: Acetaminophen [Acetaminophen ER TAB] 650 mg PO Q8HR PRN #20 tablet.er PRN Reason: Pain traMADoL [Ultram 50 MG tab] 50 mg PO Q6HR PRN #20 tablet PRN Reason: Pain Referrals: PRIMARY CAREMD [Primary Care Provider] - 3-5 Days CRIS LOWERY MD [Staff Physician] - 3-5 Days MALI BRADLEY MD [Staff Physician] - 3-5 Days PRASHANTH CISNEROS MD [Staff Physician] - 3-5 Days
[2019-10-21 16:41] VITALS: BP 157/84
--- NOTE | 2019-10-21 17:15 | XRay Report ---
XR spine cervical 2-3V INDICATION / CLINICAL INFORMATION: neck pain. COMPARISON: None available. FINDINGS: BONES/JOINT(S): No acute fracture or subluxation. Mild degenerative disc disease at C5-6 and C6-7 wit h mild disc height loss and endplate osteophyte formation. SOFT TISSUES: No significant abnormality. ADDITIONAL FINDINGS: None. Signer Name: Trent Avila MD Signed: 10/21/2019 5:11 PM Workstation Name: [id number]
== END 2019-10-21 17:09 | disposition home or self-care (01) ==
LOC: ED 13:30
DX: M54.2 Cervicalgia (principal); I10 Essential (primary) hypertension; E11.9 Type 2 diabetes mellitus without complications; Z90.49 Acquired absence of other specified parts of digestive tract; Z79.899 Other long term (current) drug therapy; Z88.6 Allergy status to analgesic agent; Z88.8 Allergy status to other drugs, medicaments and biological substances
CPT/HCPCS: 72040

== ENCOUNTER 2019-12-16 09:15 | Outpatient (CLI) | payer MEDICARE ==
--- NOTE | 2019-12-16 13:10 | Cat Scan Report ---
CT angio chest INDICATION: AORTIC [facility] PATHOLOGY R/O. TECHNIQUE: All CT scans at this location are performed using CT dose reduction for ALARA by means of automated e xposure control. Precontrast localizer images were obtained, followed by axial and 3-dimensional reconstruction images , performed at an independent workstation by the cardiovascular radiologic technologist after IV bolus contrast injection. COMPARISON: 05/06/2019 FINDINGS: Mediastinum, roberth and axillae are negative. Upper abdomen appears unremarkable. Bronchial wall thicke alesia with a focal area of bronchiectasis in the right lung base. No acute pulmonary or pleural diseas e. No evidence of pulmonary embolus. IMPRESSION: 1. Negative for pulmonary embolus. 2. Small, focal area of bronchiectasis in the right lung base medially. Signer Name: Kaz Marin MD Signed: 12/16/2019 1:06 PM Workstation Name: [id number]
== END 2019-12-16 09:16 | disposition home or self-care (01) ==
LOC: CT 09:15
PROVIDERS: ATTEND Internal Medicine
DX: Z01.31 Encounter for examination of blood pressure with abnormal findings (principal); J47.9 Bronchiectasis, uncomplicated
CPT/HCPCS: 36415; 71275; 82565; 84520; Q9967

== ENCOUNTER 2020-02-15 09:13 | Inpatient (IN) | payer MEDICAID, MEDICARE | END 2020-03-10 15:07 | disposition home health service (06) | DRG 64 | LOC: ED 09:13 → 4A 10:28 | PROVIDERS: ADMIT Internal Medicine | PROC: 0DH63UZ Insertion of Feeding Device into Stomach, Percutaneous Approach (ICD-10-PCS; principal; 2020-02-25) | DX: I63.412 Cerebral infarction due to embolism of left middle cerebral artery (principal); G93.41 Metabolic encephalopathy; N17.0 Acute kidney failure with tubular necrosis; I61.9 Nontraumatic intracerebral hemorrhage, unspecified; G81.91 Hemiplegia, unspecified affecting right dominant side; E87.5 Hyperkalemia; R13.12 Dysphagia, oropharyngeal phase; E78.5 Hyperlipidemia, unspecified; J44.9 Chronic obstructive pulmonary disease, unspecified; E11.65 Type 2 diabetes mellitus with hyperglycemia; I12.9 Hypertensive chronic kidney disease with stage 1 through stage 4 chronic kidney disease, or unspecified chronic kidney disease; N18.9 Chronic kidney disease, unspecified; E87.1 Hypo-osmolality and hyponatremia; I16.0 Hypertensive urgency; D72.829 Elevated white blood cell count, unspecified; E78.00 Pure hypercholesterolemia, unspecified; I48.0 Paroxysmal atrial fibrillation; R47.1 Dysarthria and anarthria; R29.718 NIHSS score 18; R47.01 Aphasia; K21.9 Gastro-esophageal reflux disease without esophagitis; E11.22 Type 2 diabetes mellitus with diabetic chronic kidney disease; E66.9 Obesity, unspecified; K94.22 Gastrostomy infection; K94.23 Gastrostomy malfunction; I25.2 Old myocardial infarction; Z90.49 Acquired absence of other specified parts of digestive tract; Z83.3 Family history of diabetes mellitus; Z82.49 Family history of ischemic heart disease and other diseases of the circulatory system; Z68.30 Body mass index [BMI] 30.0-30.9, adult; Z88.8 Allergy status to other drugs, medicaments and biological substances; Z88.6 Allergy status to analgesic agent; Y83.8 Other surgical procedures as the cause of abnormal reaction of the patient, or of later complication, without mention of misadventure at the time of the procedure; Y92.238 Other place in hospital as the place of occurrence of the external cause; Z21 Asymptomatic human immunodeficiency virus [HIV] infection status ==

== ENCOUNTER 2020-03-11 00:35 | Emergency (ER) | payer MEDICARE ==
--- NOTE | 2020-03-11 00:41 | Emergency Department Report ---
ED Altered Mental Status HPI - General Stated Complaint: AMS Time Seen by Provider: 03/11/20 00:39 Source: patient, EMS Mode of arrival: Stretcher Limitations: Language Barrier, Altered Mental Status, Physical Limitation - History of Present Illness Initial Comments: Patient is a 75-year old male that presents emergency room with altered mental status. Patient's last known well time unknown. Patient has a language barrier. Patient had a recent stroke where he was discharged 24 hours ago. According to EMS the patient was discharged less than 24 hours ago secondary to a stroke and was here for extended amount of time and left the hospital with right-sided weakness. There is no family with the patient. Patient does not speak German. Patient is also nonverbal. MD Complaint: altered mental status -: Sudden - Related Data Home Medications Medication Instructions Recorded Confirmed Last Taken metFORMIN [Glucophage] 1,000 mg PO BID 02/11/14 02/15/20 02/14/20 Previous Rx's Medication Instructions Recorded Last Taken Type Acetaminophen [Acetaminophen ER 650 mg PO Q8HR PRN #20 tablet.er 10/21/19 Unknown Rx TAB] ALBUTEROL NEB's [Proventil 0.083% 2.5 mg IH Q3HRT PRN #30 nebu 03/09/20 Unknown Rx NEBS] Aspirin EC [Halfprin EC] 81 mg PO QDAY #30 tablet. 03/09/20 Unknown Rx AtorvaSTATin [Lipitor] 40 mg FEEDTUBE QHS #30 tablet 03/09/20 Unknown Rx Famotidine [Pepcid] 20 mg FEEDTUBE DAILY #30 tablet 03/09/20 Unknown Rx Insulin Glargine [Lantus VIAL] 50 units SUB-Q QAMDIAB #1 vial 03/09/20 Unknown Rx Insulin Glargine [Lantus VIAL] 50 units SUB-Q QHS #1 vial 03/09/20 Unknown Rx Insulin Regular, Human [HumuLIN R] 0 units SUB-Q Q6HR #1 vial 03/09/20 Unknown Rx Metoclopramide [Reglan ORAL LIQ] 5 mg FEEDTUBE Q6H PRN 30 Days 03/09/20 Unknown Rx Metoprolol [Lopressor TAB] 100 mg FEEDTUBE BID #60 tablet 03/09/20 Unknown Rx amLODIPine 10 mg FEEDTUBE QDAY #30 tablet 03/09/20 Unknown Rx traMADoL [Ultram 50 MG tab] 50 mg FEEDTUBE Q6HR PRN #10 tablet 03/09/20 Unknown Rx Allergies Allergy/AdvReac Type Severity Reaction Status Date / Time aspirin Allergy Swelling Verified 02/15/20 13:24 iron Allergy Itching Verified 02/15/20 13:24 ED Review of Systems ROS: Stated complaint: AMS Other details as noted in HPI Comment: Unobtainable due to pts medical conditions ED Past Medical Hx - Past Medical History Previous Medical History?: Yes Hx Hypertension: Yes Hx Heart Attack/AMI: Yes (08/2016) Hx Diabetes: Yes Additional medical history: High Cholesterol - Surgical History Past Surgical History?: Yes Hx Cholecystectomy: Yes - Family History Family history: no significant - Social History Smoking Status: Never Smoker Substance Use Type: None - Medications Home Medications: Home Medications Medication Instructions Recorded Confirmed Last Taken Type metFORMIN [Glucophage] 1,000 mg PO BID 02/11/14 02/15/20 02/14/20 History Acetaminophen [Acetaminophen ER 650 mg PO Q8HR PRN #20 tablet.er 10/21/19 02/15/20 Unknown Rx TAB] ALBUTEROL NEB's [Proventil 0.083% 2.5 mg IH Q3HRT PRN #30 nebu 03/09/20 Unknown Rx NEBS] Aspirin EC [Halfprin EC] 81 mg PO QDAY #30 tablet. 03/09/20 Unknown Rx AtorvaSTATin [Lipitor] 40 mg FEEDTUBE QHS #30 tablet 03/09/20 Unknown Rx Famotidine [Pepcid] 20 mg FEEDTUBE DAILY #30 tablet 03/09/20 Unknown Rx Insulin Glargine [Lantus VIAL] 50 units SUB-Q QAMDIAB #1 vial 03/09/20 Unknown Rx Insulin Glargine [Lantus VIAL] 50 units SUB-Q QHS #1 vial 03/09/20 Unknown Rx Insulin Regular, Human [HumuLIN R] 0 units SUB-Q Q6HR #1 vial 03/09/20 Unknown Rx Metoclopramide [Reglan ORAL LIQ] 5 mg FEEDTUBE Q6H PRN 30 Days 03/09/20 Unknown Rx Metoprolol [Lopressor TAB] 100 mg FEEDTUBE BID #60 tablet 03/09/20 Unknown Rx amLODIPine 10 mg FEEDTUBE QDAY #30 tablet 03/09/20 Unknown Rx traMADoL [Ultram 50 MG tab] 50 mg FEEDTUBE Q6HR PRN #10 tablet 03/09/20 Unknown Rx ED Physical Exam - General Limitations: Altered Mental Status, Physical Limitation General appearance: in no apparent distress - Head Head exam: Present: atraumatic, normocephalic - Eye Eye exam: Present: normal appearance, PERRL Pupils: Present: normal accommodation - ENT ENT exam: Present: mucous membranes moist - Neck Neck exam: Present: normal inspection - Respiratory Respiratory exam: Present: normal lung sounds bilaterally. Absent: respiratory distress, wheezes, rales - Cardiovascular Cardiovascular Exam: Present: regular rate, normal rhythm. Absent: systolic murmur, diastolic murmur, rubs, gallop - GI/Abdominal GI/Abdominal exam: Present: soft, normal bowel sounds - Rectal Rectal exam: Present: deferred - Extremities Exam Extremities exam: Present: normal inspection - Back Exam Back exam: Present: normal inspection - Neurological Exam Neurological exam: Present: altered - Expanded Neurological Exam Expanded Best Eye Response (Carlos): (3) open to voice Best Motor Response (Carlos): (5) localizes to pain Best Verbal Response (Carlos): (2) incomprehsible sounds Carlos Total: 10 - Skin Skin exam: Present: warm, dry, intact, normal color. Absent: rash - Assessment Assessment Interval: Baseline - Level of Consciousness 1a. Level of Consciousness: coma/unresponsive - LOC Questions 1b. LOC Questions: aphasic - LOC Command 1c. LOC Commands: performs no tasks correctly - Best Gaze 2. Best Gaze: normal - Visual 3. Visual: no visual loss - Facial Palsy 4. Facial Palsy: partial paralysis - Motor Arm 5a. Motor Arm Left: some gravity effort 5b. Motor Arm Right: no movement - Motor Leg 6a. Motor Leg Left: some gravity effort 6b. Motor Leg Right: no movement - Limb Ataxia 7. Limb Ataxia: absent - Sensory 8. Sensory: normal - Best Language 9. Best Language: mute/global aphasia - Dysarthria 10. Dysarthria: mute/anarrthric - Extinction and Inattention 11. Extinction/Inattention: no abnormality - Scoring Total Score: 26 Stroke Severity: Severe Stroke ED Course Vital Signs 03/11/20 03/11/20 03/11/20 01:07 01:19 01:30 Temperature Pulse Rate 95 H 92 H 94 H Respiratory 21 20 15 Rate Blood Pressure 115/79 140/71 O2 Sat by Pulse 100 99 98 Oximetry 03/11/20 03/11/20 03/11/20 01:55 02:00 02:15 Temperature Pulse Rate 92 H 92 H 92 H Respiratory 17 20 21 Rate Blood Pressure 128/65 124/71 133/73 O2 Sat by Pulse 100 100 100 Oximetry 03/11/20 03/11/20 03/11/20 02:30 02:45 03:00 Temperature Pulse Rate 95 H 93 H 95 H Respiratory 17 29 H 22 Rate Blood Pressure 143/70 140/71 132/72 O2 Sat by Pulse 100 100 100 Oximetry 03/11/20 03/11/20 03/11/20 03:15 03:30 03:45 Temperature Pulse Rate 96 H 95 H 99 H Respiratory 28 H 23 21 Rate Blood Pressure 131/65 121/70 128/76 O2 Sat by Pulse 100 100 100 Oximetry 03/11/20 03/11/20 03/11/20 03:47 04:00 04:15 Temperature 98.8 F Pulse Rate 98 H 99 H 98 H Respiratory 20 32 H 20 Rate Blood Pressure 136/75 132/73 127/70 O2 Sat by Pulse 99 100 100 Oximetry 03/11/20 04:30 Temperature Pulse Rate 100 H Respiratory 16 Rate Blood Pressure 117/77 O2 Sat by Pulse 100 Oximetry - Reevaluation(s) Reevaluation #1: Initial evaluation done. Patient's last known well time is unknown. Code stroke called. 03/11/20 00:41 Reevaluation #2: Patient placed on oxygen. Patient is neuro exam is unchanged. 03/11/20 01:31 Reevaluation #3: Neuro exam unchanged. Patient's vital signs are stable. 03/11/20 02:27 Reevaluation #4: Patient's blood pressure is stable. Patient resting in bed. Patient easily arousable. No change in neuro exam 03/11/20 03:27 - Consultations Consultation #1: I discussed case with Dr. Mccabe, tele-neurology. Dr. Mccabe recommends CTA. 03/11/20 01:10 Consultation #2: I discussed case with hospitalist. Hospitalist recommends transfer to a center with neurosurgery. 03/11/20 03:26 Consultation #3: Neurosurgery at [facility]. 03/11/20 03:[address] I [address] case with Dr. Hathaway with [facility]. Dr. Hathaway wants to review the images and discuss it with the neurosurgeon. 03/11/20 03:31 Patient has been accepted to be transferred to the neuro ICU at [facility] by Dr. Hathaway 03/11/20 03:51 - Lab Data Result diagrams: 03/11/20 01:10 03/11/20 01:10 Lab Results 03/11/20 03/11/20 03/11/20 Range/Units 01:00 01:10 01:10 WBC 9.0 (4.5-11.0) K/mm3 RBC 3.80 (3.65-5.03) M/mm3 Hgb 10.4 L (11.8-15.2) gm/dl Hct 31.8 L (35.5-45.6) % MCV 84 (84-94) fl MCH 27 L (28-32) pg MCHC 33 (32-34) % RDW 14.9 (13.2-15.2) % Plt Count 203 (140-440) K/mm3 Lymph % (Auto) 16.7 (13.4-35.0) % Dor[place] % (Auto) 6.6 (0.0-7.3) % Eos % (Auto) 2.2 (0.0-4.3) % Baso % (Auto) 0.6 (0.0-1.8) % Lymph # 1.5 (1.2-5.4) K/mm3 Dorado # 0.6 (0.0-0.8) K/mm3 Eos # 0.2 (0.0-0.4) K/mm3 Baso # 0.1 (0.0-0.1) K/mm3 Seg Neutrophils % 73.9 H (40.0-70.0) % Seg Neutrophils # 6.7 (1.8-7.7) K/mm3 PT 15.1 H (12.2-14.9) Sec. INR 1.17 H (0.87-1.13) APTT 28.3 (24.2-36.6) Sec. Thrombin Time 15.3 (15.1-19.6) Sec. Sodium (137-145) mmol/L Potassium (3.6-5.0) mmol/L Chloride (98-107) mmol/L Carbon Dioxide (22-30) mmol/L Anion Gap mmol/L BUN (9-20) mg/dL Creatinine (0.8-1.5) mg/dL Estimated GFR ml/min BUN/Creatinine Ratio % Glucose (75-100) mg/dL POC Glucose 72 (70-105) Calcium (8.4-10.2) mg/dL Total Bilirubin (0.1-1.2) mg/dL AST (5-40) units/L ALT (7-56) units/L Alkaline Phosphatase (35-129) units/L Total Creatine Kinase (55-170) units/L CK-MB (CK-2) (0.0-4.0) ng/mL CK-MB (CK-2) Rel Index (0-4) Troponin T (0.00-0.029) ng/mL Total Protein (6.3-8.2) g/dL Albumin (3.9-5) g/dL Albumin/Globulin Ratio % Triglycerides (2-149) mg/dL Cholesterol (50-199) mg/dL LDL Cholesterol Direct (50-130) mg/dL HDL Cholesterol (40-59) mg/dL Cholesterol/HDL Ratio % 03/11/20 03/11/20 Range/Units 01:10 01:10 WBC (4.5-11.0) K/mm3 RBC (3.65-5.03) M/mm3 Hgb (11.8-15.2) gm/dl Hct (35.5-45.6) % MCV (84-94) fl MCH (28-32) pg MCHC (32-34) % RDW (13.2-15.2) % Plt Count (140-440) K/mm3 Lymph % (Auto) (13.4-35.0) % Dorado % (Auto) (0.0-7.3) % Eos % (Auto) (0.0-4.3) % Baso % (Auto) (0.0-1.8) % Lymph # (1.2-5.4) K/mm3 [place] # (0.0-0.8) K/mm3 Eos # (0.0-0.4) K/mm3 Baso # (0.0-0.1) K/mm3 Seg Neutrophils % (40.0-70.0) % Seg Neutrophils # (1.8-7.7) K/mm3 PT (12.2-14.9) Sec. INR (0.87-1.13) APTT (24.2-36.6) Sec. Thrombin Time (15.1-19.6) Sec. Sodium 138 (137-145) mmol/L Potassium 4.5 (3.6-5.0) mmol/L Chloride 103.4 (98-107) mmol/L Carbon Dioxide 16 L (22-30) mmol/L Anion Gap 23 mmol/L BUN 31 H (9-20) mg/dL Creatinine 1.3 (0.8-1.5) mg/dL Estimated GFR 54 ml/min BUN/Creatinine Ratio 24 % Glucose 81 (75-100) mg/dL POC Glucose (70-105) Calcium 8.9 (8.4-10.2) mg/dL Total Bilirubin 0.40 (0.1-1.2) mg/dL AST 259 H (5-40) units/L ALT 307 H (7-56) units/L Alkaline Phosphatase 116 (35-129) units/L Total Creatine Kinase 2848 H (55-170) units/L CK-MB (CK-2) 8.8 H (0.0-4.0) ng/mL CK-MB (CK-2) Rel Index 0.3 (0-4) Troponin T 0.036 H (0.00-0.029) ng/mL Total Protein 7.6 (6.3-8.2) g/dL Albumin 2.6 L (3.9-5) g/dL Albumin/Globulin Ratio 0.5 % Triglycerides 201 H (2-149) mg/dL Cholesterol 95 (50-199) mg/dL LDL Cholesterol Direct 40 L (50-130) mg/dL HDL Cholesterol 20 L (40-59) mg/dL Cholesterol/HDL Ratio 4.75 % - EKG Data -: EKG Interpreted by Me EKG shows normal: sinus rhythm, axis, intervals, QRS complexes, ST-T waves Rate: tachycardia - Radiology Data Radiology results: report reviewed, image reviewed interpreted by me: Fluoro Time In Minutes: CHEST 1 VIEW INDICATION / CLINICAL INFORMATION: ams. COMPARISON: 03/05/2020 FINDINGS: SUPPORT DEVICES: None. HEART / MEDIASTINUM: No significant abnormality. LUNGS / PLEURA: No significant pulmonary or pleural abnormality. No pneumothorax. ADDITIONAL FINDINGS: No significant additional findings. IMPRESSION: 1. No acute findings. No interval change. CT head/brain wo con INDICATION / CLINICAL INFORMATION: STROKE PROTOCOL!!!!, Discharged 1 day ago for a stroke. AMS.. TECHNIQUE: Axial CT imaging of the brain was obtained without contrast. Coronal and sagittal reformatted imaging obtained and reviewed. All CT scans at this location are performed using CT dose reduction for ALARA by means of automated exposure control. COMPARISON: Prior head CT, 03/04/2020 and 03/02/2020 FINDINGS: There is persistent infarction throughout the left PHYSICAL THERAPY ASST distribution as noted on prior study. Hemorrhage is present within the area of infarction, but to a lesser extent than seen on the last CT scan. However, there is increasing vasogenic edema throughout the left parietal lobe especially noted posteriorly/superiorly. There is increasing sulcal effacement in the left parietal lobe region and slightly increased mass effect on the left lateral ventricle. No definite midline shift at this time. As noted previously, there is moderate microvascular angiopathy with old infarct involving left ramesh radiata. There is mild cerebral atrophy. Visualized paranasal sinuses show mucosal thickening within the right sphenoid sinus and mucosal thickening within the right maxillary sinus, as noted previously. No air-fluid levels. IMPRESSION: 1. Known large PHYSICAL THERAPY ASST territorial CVA. Previously noted hemorrhagic transformation has decreased. However, there is increasing vasogenic edema within the left parietal lobe with increasing sulcal effacement and mass effect on surrounding structures. No midline shift at this time. CT angio head INDICATION / CLINICAL INFORMATION: 75 years Male; POST STROKE PROTOCOL!!! L MCA stroke Omnipaque 350 / 100ml's was used for this exam.. TECHNIQUE: Thin cut axial images obtained through the head during IV bolus contrast administration. Sagittal, coronal, and 3 plane MIP reconstructions performed by the technologist. NASCET type criteria used evaluate stenoses. Automated exposure control utilized for radiation reduction purposes. COMPARISON: 02/15/2020 FINDINGS: INTERNAL CAROTID ARTERIES: No significant narrowing appreciated. VERTEBROBASILAR SYSTEM: No significant narrowing appreciated. DISTAL BRANCHES: Distal branches of the anterior cerebral arteries are fairly symmetric in appearance and not significantly changed from prior exam. When comparing posterior cerebral circulation vessels, the left posterior c erebral artery is better visualized on the current study, when compared with prior. However, distal branches a left PHYSICAL THERAPY ASST territory remain poorly visualized. Focal areas of narrowing are seen in the P1-2 regions bilaterally. Focal areas of narrowing again noted in the MCA trifurcation region on the left- not significantly changed from prior. There is decreased visualization of peripheral, posterior MCA branches extending into the left parietal lobe region - not significantly changed from prior exam. ANEURYSM: None identified. ADDITIONAL FINDINGS: There is more vasogenic edema associated with patient's recent left PHYSICAL THERAPY ASST infarct, when compared with prior exam. The areas of parenchymal hemorrhage, likely related to co rtical laminar necrosis, are reduced overall when compared with prior; however, there is more widely distributed cortical laminar necrosis in the sarmiento matter of the patient's recent left PHYSICAL THERAPY ASST infarct when compared with prior. IMPRESSION: 1. No signs of new vessel occlusion appreciated. 2. More edema and cortical laminar necrosis suspected on the current study, when compared with prior. CT angio neck INDICATION / CLINICAL INFORMATION: 75 years Male; POST STROKE PROTOCOL!!! L MCA stroke Omnipaque 350 / 100ml's was used for this exam.. TECHNIQUE: Thin cut axial images obtained through the head during IV bolus contrast administration. Sagittal, coronal, and 3 plane MIP reconstructions performed by the technologist. NASCET type criteria used evaluate stenoses. All CT scans at this location are performed using CT dose reduction for ALARA by means of automated exposure control. COMPARISON: 02/15/2020 FINDINGS: ARCH: Normal aortic arch branching seen. Note, the left vertebral artery has its origin from the aortic arch, proximal to the origin of the subclavian artery-normal variant. CAROTID ARTERIES: The visualized common and internal carotid arteries are widely patent. VERTEBRAL ARTERIES: Codominant vertebral system seen. No significant stenosis appreciated. ADDITIONAL FINDINGS: Mild degenerative changes seen along the cervical spine. IMPRESSION: No significant stenosis appreciated on this CTA of the neck. - Medical Decision Making Patient is a 75-year-old male that presents emergency room with altered mental status and abnormal neurologic findings. Patient recently discharged from here for a CVA. Patient recently admitted to the hospital here for stroke. Patient during his recent hospital admission found to have a hemorrhage into the acute stroke area. Patient had a prolonged admission. Patient was was discharged home. Patient's family then called ambulance for acute altered mental status. Patient brought in by EMS. He code stroke was initiated upon initial evaluation. Patient had a CT scan of the head which shows a intracranial hemorrhage. Neurology was consulted for this patient early as part of the code stroke. Neurology recommended a CTA of the head and neck. Patient's labs are essentially unremarkable except for elevated troponin and CK consistent with rhabdo. Patient's CT of the head shows no acute obstructions. CTA of the neck shows no acute findings. I discussed the case with our hospitalist and the hospitalist recommends transfer to a center with neurosurgery. [facility] was consulted and they accepted the patient. Patient chest x-ray was negative for acute findings. Critical care time documented due to severity of the case and the multiple reassessments and the patient requiring transfer to a higher level of care. - Differential Diagnosis CVA, intracranial hemorrhage, altered mental status Critical Care Time: Yes Critical care time in (mins) excluding proc time.: 80 Critical care attestation.: If time is entered above; I have spent that time in minutes in the direct care of this critically ill patient, excluding procedure time. Critical Care Time: 80 minutes ED Disposition Clinical Impression: Cerebral edema, Elevated troponin I level Stroke Qualifiers: CVA mechanism: unspecified Qualified Code(s): I63.9 - Cerebral infarction, unspecified ICH (intracerebral hemorrhage) Qualifiers: Intracerebral hemorrhage etiology: nontraumatic Cerebral hemorrhage location: unspecified cerebral location Laterality: unspecified laterality Qualified Code( s): I61.9 - Nontraumatic intracerebral hemorrhage, unspecified Altered mental state Qualifiers: Altered mental status type: unspecified Qualified Code(s): R41.82 - Altered mental status, unspecified Rhabdomyolysis Qualifiers: Rhabdomyolysis type: non-traumatic Qualified Code(s): M62.82 - Rhabdomyolysis Disposition: DC/TX-70 ANOTHER TYPE HLTHCARE Is pt being admited?: No Does the pt Need Aspirin: No Condition: Critical Time of Disposition: 03:56
[2020-03-11 01:21] LABS: Basophils # (Auto) 0.1 K/mm3 (0.0-0.1); Basophils % (Auto) 0.6 % (0.0-1.8); Eosinophils # (Auto) 0.2 K/mm3 (0.0-0.4); Eosinophils % (Auto) 2.2 % (0.0-4.3); Hematocrit 31.8 % (35.5-45.6); Hemoglobin 10.4 gm/dl (11.8-15.2); Lymphocytes # (Auto) 1.5 K/mm3 (1.2-5.4); Lymphocytes % (Auto) 16.7 % (13.4-35.0); Mean Corpuscular HGB Conc 33 % (32-34); Mean Corpuscular Volume 84 fl (84-94); Monocytes # (Auto) 0.6 K/mm3 (0.0-0.8); Monocytes % (Auto) 6.6 % (0.0-7.3); Platelet Count 203 K/mm3 (140-440); Red Cell Distribution Width 14.9 % (13.2-15.2)
--- NOTE | 2020-03-11 01:22 | Emergency Department Report ---
ED Neuro Deficit HPI - General Chief Complaint: Neuro Symptoms/Deficit Stated Complaint: AMS Time Seen by Provider: 03/11/20 00:39 Source: patient, EMS Mode of arrival: Stretcher Limitations: Altered Mental Status, Physical Limitation - History of Present Illness Initial Comments: [facility] Date of Service: 03/11/2020 00:42:46 Impression: 1) New onset R hemiparesis. 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 Comments: Obviously patient is not a tPA candidate due to persistent ICH from hemorrhagic conversion of recent infarct. Anticoagulant/antiplatelet therapy has been on hold due to this finding. Metrics: Last Known Well: Unknown [facility] Notification Time: 03/11/2020 00:42:22 Arrival Time: 03/11/2020 00:39:00 Stamp Time: 03/11/2020 00:42:46 Time First Login Attempt: 03/11/2020 00:44:25 Video Start Time: 03/11/2020 00:44:25 Symptoms: AMS NIHSS Start Assessment Time: 03/11/2020 01:02:50 Patient is not a candidate for tPA. Patient was not deemed candidate for tPA thrombolytics because of Current or Previous ICH. Video End Time: 03/11/2020 01:13:35 ED Physician notified of diagnostic impression and management plan on 03/11/2020 01:13:37 Our recommendations are outlined below. Recommendations: Activate Stroke Protocol Admission/Order Set Stroke/Telemetry Floor Neuro Checks Bedside Swallow Eval DVT Prophylaxis IV Fluids, Normal Saline Head of Bed Below 30 Degrees Euglycemia and Avoid Hyperthermia (PRN Acetaminophen) No thrombolytic, anticoagulant. Can give ASA. CTA head/neck to r/o L ICA/MCA stenosis/occlusion. Allow permissive HTN up to 160 systolic. Sign Out: Discussed with Emergency Department Provider History of Present Illness: Patient is a 75 year old Male. H/o HTN, HLD, DM2, A Fib, s/p recent stroke on 02/15/2020. MRI showed large L [employer] T[employer]O MANAGER infarct with hemorrhagic transformation, suspected embolic; CTA head/neck were negative. Echo showed EF 45-50%, Telemetry showed A Fib. S/p PEG. Neurology recommended holding starting anticoagulation for [address] 03/04/2020 still showed hemorrhagic transformation. Family called EMS for change in condition. Currently he is non-verbal (although apparently does not speak Angolan), not moving R side. Unclear baseline. Unclear time of onset. Imaging: CT head was reviewed and results were: Persistent hemorrhagic conversion and edema with the subacute/early chronic L [employer] T[employer]O MANAGER infarct. Examination: Non-verbal, unclear if due to the fact that he doesn't speak [place]olan. Follows commands when shown. Right visual field cut. Does not move R UE. Poor motor effort B LE. Does not react to pain on the R. 1A: Level of Consciousness - Alert + 0 1B: Ask Month and Age - Aphasic + 2 1C: Blink Eyes & Squeeze Hands - Performs Both Tasks + 0 2: Test Horizontal Extraocular Movements - Normal + 0 3: Test Visual Tirado - No Visual Loss + 2 4: Test Facial Palsy (Use Grimace if Obtunded) - Normal symmetry + 0 5A: Test Left Arm Motor Drift - No Drift for 10 Seconds + 0 5B: Test Right Arm Motor Drift - No Movement + 4 6A: Test Left Leg Motor Drift - No Effort Against [place] + 3 6B: Test Right Leg Motor Drift - No Movement + 4 7: Test Limb Ataxia (FNF/Heel-Guzmán) - No Ataxia + 0 8: Test Sensation - Complete Loss: Cannot Sense Being Touched At All + 2 9: Test Language/Aphasia - Mute/Global Aphasia: No Usable Speech/Auditory Comprehension + 3 10: Test Dysarthria - Normal + 0 11: Test Extinction/Inattention - Extinction to bilateral simultaneous stimulation + 1 NIHSS Score: 21 Patient was informed the Neurology Consult would happen via TeleHealth consult by way of interactive audio and video telecommunications and consented to receiving care in this manner. Due to the immediate potential for life-threatening deterioration due to underlying acute neurologic illness, I spent 35 minutes providing critical care. This time includes time for face to face visit via telemedicine, review of medical records, imaging studies and discussion of findings with providers, the patient and/or family. Dr Fei Mccabe [facility] Case [id number] - Related Data Home Medications: Home Medications Medication Instructions Recorded Confirmed Last Taken metFORMIN [Glucophage] 1,000 mg PO BID 02/11/14 02/15/20 02/14/20 Previous Rx's Medication Instructions Recorded Last Taken Type Acetaminophen [Acetaminophen ER 650 mg PO Q8HR PRN #20 tablet.er 10/21/19 Unknown Rx TAB] ALBUTEROL NEB's [Proventil 0.083% 2.5 mg IH Q3HRT PRN #30 nebu 03/09/20 Unknown Rx NEBS] Aspirin EC [Halfprin EC] 81 mg PO QDAY #30 tablet. 03/09/20 Unknown Rx AtorvaSTATin [Lipitor] 40 mg FEEDTUBE QHS #30 tablet 03/09/20 Unknown Rx Famotidine [Pepcid] 20 mg FEEDTUBE DAILY #30 tablet 03/09/20 Unknown Rx Insulin Glargine [Lantus VIAL] 50 units SUB-Q QAMDIAB #1 vial 03/09/20 Unknown Rx Insulin Glargine [Lantus VIAL] 50 units SUB-Q QHS #1 vial 03/09/20 Unknown Rx Insulin Regular, Human [HumuLIN R] 0 units SUB-Q Q6HR #1 vial 03/09/20 Unknown Rx Metoclopramide [Reglan ORAL LIQ] 5 mg FEEDTUBE Q6H PRN 30 Days 03/09/20 Unknown Rx Metoprolol [Lopressor TAB] 100 mg FEEDTUBE BID #60 tablet 03/09/20 Unknown Rx amLODIPine 10 mg FEEDTUBE QDAY #30 tablet 03/09/20 Unknown Rx traMADoL [Ultram 50 MG tab] 50 mg FEEDTUBE Q6HR PRN #10 tablet 03/09/20 Unknown Rx Allergies/Adverse Reactions: Allergies Allergy/AdvReac Type Severity Reaction Status Date / Time aspirin Allergy Swelling Verified 02/15/20 13:24 iron Allergy Itching Verified 02/15/20 13:24 ED Review of Systems ROS: Stated complaint: AMS Other details as noted in HPI Constitutional: denies: chills, fever Eyes: denies: eye pain, eye discharge, vision change ENT: denies: ear pain, throat pain Respiratory: denies: cough, shortness of breath, wheezing Cardiovascular: denies: chest pain, palpitations Endocrine: no symptoms reported Gastrointestinal: denies: abdominal pain, nausea, diarrhea Genitourinary: denies: urgency, dysuria Musculoskeletal: denies: back pain, joint swelling, arthralgia Skin: denies: rash, lesions Neurological: denies: headache, weakness, paresthesias Psychiatric: denies: anxiety, depression Hematological/Lymphatic: denies: easy bleeding, easy bruising ED Past Medical Hx - Past Medical History Previous Medical History?: Yes Hx Hypertension: Yes Hx Heart Attack/AMI: Yes (08/2016) Hx Diabetes: Yes Additional medical history: High Cholesterol - Surgical History Past Surgical History?: Yes Hx Cholecystectomy: Yes - Social History Smoking Status: Never Smoker Substance Use Type: None - Medications Home Medications: Home Medications Medication Instructions Recorded Confirmed Last Taken Type metFORMIN [Glucophage] 1,000 mg PO BID 02/11/14 02/15/20 02/14/20 History Acetaminophen [Acetaminophen ER 650 mg PO Q8HR PRN #20 tablet.er 10/21/19 02/15/20 Unknown Rx TAB] ALBUTEROL NEB's [Proventil 0.083% 2.5 mg IH Q3HRT PRN #30 nebu 03/09/20 Unknown Rx NEBS] Aspirin EC [Halfprin EC] 81 mg PO QDAY #30 tablet. 03/09/20 Unknown Rx AtorvaSTATin [Lipitor] 40 mg FEEDTUBE QHS #30 tablet 03/09/20 Unknown Rx Famotidine [Pepcid] 20 mg FEEDTUBE DAILY #30 tablet 03/09/20 Unknown Rx Insulin Glargine [Lantus VIAL] 50 units SUB-Q QAMDIAB #1 vial 03/09/20 Unknown Rx Insulin Glargine [Lantus VIAL] 50 units SUB-Q QHS #1 vial 03/09/20 Unknown Rx Insulin Regular, Human [HumuLIN R] 0 units SUB-Q Q6HR #1 vial 03/09/20 Unknown Rx Metoclopramide [Reglan ORAL LIQ] 5 mg FEEDTUBE Q6H PRN 30 Days 03/09/20 Unknown Rx Metoprolol [Lopressor TAB] 100 mg FEEDTUBE BID #60 tablet 03/09/20 Unknown Rx amLODIPine 10 mg FEEDTUBE QDAY #30 tablet 03/09/20 Unknown Rx traMADoL [Ultram 50 MG tab] 50 mg FEEDTUBE Q6HR PRN #10 tablet 03/09/20 Unknown Rx ED Neuro Physical Exam - General Limitations: Altered Mental Status, Physical Limitation General appearance: alert, in no apparent distress Suspected Stroke: Yes - NIHSS Assessment Interval: Baseline 1a. Level of Consciousness: alert/keenly responsive 1b. LOC Questions: answers no questions correctly 1c. LOC Commands: performs tasks correctly 2. Best Gaze: normal 3. Visual: complete hemianopia 4. Facial Palsy: normal symmetrical movement 5b. Motor Arm Right: no movement 5a. Motor Arm Left: no drift 6a. Motor Leg Left: some gravity effort 6b. Motor Leg Right: no gravity effort 7. Limb Ataxia: absent 8. Sensory: severe/total sensory loss 9. Best Language: mute/global aphasia 10. Dysarthria: normal 11. Extinction/Inattention: visual/tactile inattention Total Score: 19 Stroke Severity: Moderate to Severe Stroke Critical care attestation.: If time is entered above; I have spent that time in minutes in the direct care of this critically ill patient, excluding procedure time. ED Disposition Clinical Impression: Stroke Disposition: [id number] OP ADMIT IP TO THIS HOSP Is pt being admited?: Yes Condition: Stable
--- NOTE | 2020-03-11 01:27 | Cat Scan Report ---
CT head/brain wo con INDICATION / CLINICAL INFORMATION: STROKE PROTOCOL!!!!, Discharged 1 day ago for a stroke. AMS.. TECHNIQUE: Axial CT imaging of the brain was obtained without contrast. Coronal and sagittal reformatted imaging obtained and reviewed. All CT scans at this location are performed using CT dose reduction for ALAR A by means of automated exposure control. COMPARISON: Prior head CT, 03/04/2020 and 03/02/2020 FINDINGS: There is persistent infarction throughout the left [employer]IDEND DEPOSIT VOUCHER CLERK distribution as noted on prior study. Hemorrha ge is present within the area of infarction, but to a lesser extent than seen on the last CT scan. Ho wever, there is increasing vasogenic edema throughout the left parietal lobe especially noted posteri kristy/superiorly. There is increasing sulcal effacement in the left parietal lobe region and slightly increased mass effect on the left lateral ventricle. No definite midline shift at this time. As noted previously, there is moderate microvascular angiopathy with old infarct involving left coron a radiata. There is mild cerebral atrophy. Visualized paranasal sinuses show mucosal thickening within the right sphenoid sinus and mucosal thic kening within the right maxillary sinus, as noted previously. No air-fluid levels. IMPRESSION: 1. Known large DIVIDEND DEPOSIT VOUCHER CLERK territorial CVA. Previously noted hemorrhagic transformation has decreased. Howeve r, there is increasing vasogenic edema within the left parietal lobe with increasing sulcal effacemen t and mass effect on surrounding structures. No midline shift at this time. This is a code stroke. A verbal report was given to Dr. Velez by telephone in the ED at 0018 hours [facility] [facility]. Signer Name: María Irby MD Signed: 03/11/2020 1:22 AM Workstation Name: [id number]
[2020-03-11 01:34] LABS: INR 1.17 (0.87-1.13); Partial Thromboplastin Time 28.3 Sec. (24.2-36.6)
[2020-03-11 01:38] LABS: Creatine Kinase MB 8.8 ng/mL (0.0-4.0); Thrombin Time 15.3 Sec. (15.1-19.6)
--- NOTE | 2020-03-11 03:05 | Cat Scan Report ---
CT angio head INDICATION / CLINICAL INFORMATION: 75 years Male; POST STROKE PROTOCOL!!! L MCA stroke Omnipaque 350 / 100ml's was used for this exam.. TECHNIQUE: Thin cut axial images obtained through the head during IV bolus contrast administration. S agittal, coronal, and 3 plane MIP reconstructions performed by the technologist. NASCET type criteria used evaluate stenoses. Automated exposure control utilized for radiation reduction purposes. COMPARISON: 02/15/2020 FINDINGS: INTERNAL CAROTID ARTERIES: No significant narrowing appreciated. VERTEBROBASILAR SYSTEM: No significant narrowing appreciated. DISTAL BRANCHES: Distal branches of the anterior cerebral arteries are fairly symmetric in appearance and not significantly changed from prior exam. When comparing posterior cerebral circulation vessels, the left posterior cerebral artery is better v isualized on the current study, when compared with prior. However, distal branches a left PILLOWCASE SEWER territo ry remain poorly visualized. Focal areas of narrowing are seen in the P1-2 regions bilaterally. Focal areas of narrowing again noted in the MCA trifurcation region on the left-not significantly neel nged from prior. There is decreased visualization of peripheral, posterior MCA branches extending int o the left parietal lobe region - not significantly changed from prior exam. ANEURYSM: None identified. ADDITIONAL FINDINGS: There is more vasogenic edema associated with patient's recent left PILLOWCASE SEWER infarct, when compared with prior exam. The areas of parenchymal hemorrhage, likely related to cortical john ar necrosis, are reduced overall when compared with prior; however, there is more widely distributed cortical laminar necrosis in the sarmiento matter of the patient's recent left PILLOWCASE SEWER infarct when compared w ith prior. IMPRESSION: 1. No signs of new vessel occlusion appreciated. 2. More edema and cortical laminar necrosis suspected on the current study, when compared with prior. Signer Name: Dom Jordan MD, III Signed: 03/11/2020 3:01 AM Workstation Name: [email or web address]
[2020-03-11 03:08] LABS: Chol/HDL Ratio 4.75 %
--- NOTE | 2020-03-11 03:13 | Cat Scan Report ---
CT angio neck INDICATION / CLINICAL INFORMATION: 75 years Male; POST STROKE PROTOCOL!!! L MCA stroke Omnipaque 350 / 100ml's was used for this exam.. TECHNIQUE: Thin cut axial images obtained through the head during IV bolus contrast administration. S agittal, coronal, and 3 plane MIP reconstructions performed by the technologist. NASCET type criteria used evaluate stenoses. All CT scans at this location are performed using CT dose reduction for ALAR A by means of automated exposure control. COMPARISON: 02/15/2020 FINDINGS: ARCH: Normal aortic arch branching seen. Note, the left vertebral artery has its origin from the aort ic arch, proximal to the origin of the subclavian artery-normal variant. CAROTID ARTERIES: The visualized common and internal carotid arteries are widely patent. VERTEBRAL ARTERIES: Codominant vertebral system seen. No significant stenosis appreciated. ADDITIONAL FINDINGS: Mild degenerative changes seen along the cervical spine. IMPRESSION: No significant stenosis appreciated on this CTA of the neck. Signer Name: Dom Jordan MD, III Signed: 03/11/2020 3:09 AM Workstation Name: [email or web address]
--- NOTE | 2020-03-11 04:13 | XRay Report ---
CHEST 1 VIEW INDICATION / CLINICAL INFORMATION: ams. COMPARISON: 03/05/2020 FINDINGS: SUPPORT DEVICES: None. HEART / MEDIASTINUM: No significant abnormality. LUNGS / PLEURA: No significant pulmonary or pleural abnormality. No pneumothorax. ADDITIONAL FINDINGS: No significant additional findings. IMPRESSION: 1. No acute findings. No interval change. Signer Name: María Irby MD Signed: 03/11/2020 4:09 AM Workstation Name: [id number]
[2020-03-11 04:34] VITALS: BP 117/77
[2020-03-11 05:03] LABS: Albumin 2.6 g/dL (3.9-5); Calcium 8.9 mg/dL (8.4-10.2)
== END 2020-03-11 05:16 | disposition other institution (70) ==
LOC: ED 00:35
DX: R41.82 Altered mental status, unspecified (principal); I61.9 Nontraumatic intracerebral hemorrhage, unspecified; I63.9 Cerebral infarction, unspecified; M62.82 Rhabdomyolysis; G93.6 Cerebral edema; R79.89 Other specified abnormal findings of blood chemistry; I10 Essential (primary) hypertension; E11.9 Type 2 diabetes mellitus without complications; I25.2 Old myocardial infarction; E78.00 Pure hypercholesterolemia, unspecified; Z90.49 Acquired absence of other specified parts of digestive tract; Z79.899 Other long term (current) drug therapy; Z88.6 Allergy status to analgesic agent; Z91.09 Other allergy status, other than to drugs and biological substances; Z79.4 Long term (current) use of insulin
CPT/HCPCS: 36415; 70450; 70496; 70498; 71045; 80053; 80061; 82550; 82553; 82962; 84484; 85025; 85610; 85670; 85730; 93005; 99291; 99292; Q9967

== ENCOUNTER 2022-07-25 19:02 | Inpatient (IN) | payer MEDICAID, MEDICARE ==
[2022-07-25] MEDS ORDERED: SODIUM CHLORIDE 0.9% 1000 ML 1,000 ML IV ONE ×3 (19:35→23:52)
--- NOTE | 2022-07-25 19:43 | Emergency Department Report ---
HPI - General Chief Complaint: Hyperglycemia Time Seen by Provider: 07/25/22 19:20 - HPI HPI: Room 3 The patient is a 77-year-old male present with a chief complaint of altered mental status. Patient is a resident at jail ([facility]). This was initially called for "difficulty breathing." EMS upon arrival found the patient altered nonresponsive with an elevated glucose. Patient's last known well time is currently unknown. Family visited the patient this afternoon at 3 PM and notices altered behavior. The patient does not respond to verbal or tactile stimuli ED Past Medical Hx - Past Medical History Hx Hypertension: Yes Hx Heart Attack/AMI: Yes (08/2016) Hx Diabetes: Yes Additional medical history: High Cholesterol - Surgical History Hx Cholecystectomy: Yes - Family History Family history: no significant - Social History Smoking Status: Never Smoker Substance Use Type: None - Medications Home Medications: Home Medications Medication Instructions Recorded Confirmed Last Taken Type metFORMIN [Glucophage] 1,000 mg PO BID 02/11/14 02/15/20 02/14/20 History Acetaminophen [Acetaminophen ER 650 mg PO Q8HR PRN #20 tablet.er 10/21/19 02/15/20 Unknown Rx TAB] ALBUTEROL NEB's [Proventil 0.083% 2.5 mg IH Q3HRT PRN #30 nebu 03/09/20 Unknown Rx NEBS] Aspirin EC [Halfprin EC] 81 mg PO QDAY #30 tablet.dr 03/09/20 Unknown Rx AtorvaSTATin [Lipitor] 40 mg FEEDTUBE QHS #30 tablet 03/09/20 Unknown Rx Famotidine [Pepcid] 20 mg FEEDTUBE DAILY #30 tablet 03/09/20 Unknown Rx Insulin Glargine [Lantus VIAL] 50 units SUB-Q QAMDIAB #1 vial 03/09/20 Unknown Rx Insulin Glargine [Lantus VIAL] 50 units SUB-Q QHS #1 vial 03/09/20 Unknown Rx Insulin Regular, Human [HumuLIN R] 0 units SUB-Q Q6HR #1 vial 03/09/20 Unknown Rx Metoclopramide [Reglan ORAL LIQ] 5 mg FEEDTUBE Q6H PRN 30 Days 03/09/20 Unknown Rx Metoprolol [Lopressor TAB] 100 mg FEEDTUBE BID #60 tablet 03/09/20 Unknown Rx amLODIPine 10 mg FEEDTUBE QDAY #30 tablet 03/09/20 Unknown Rx traMADoL [Ultram 50 MG tab] 50 mg FEEDTUBE Q6HR PRN #10 tablet 03/09/20 Unknown Rx ED Review of Systems ROS: Stated complaint: DKA Other details as noted in HPI Comment: Unobtainable due to pts medical conditions (Altered mental status) Physical Exam - Physical Exam Vital Signs: Vital Signs 07/25/22 19:20 Temperature 98 F Pulse Rate 130 H Respiratory 16 Rate Blood Pressure 110/70 [Right] O2 Sat by Pulse 96 Oximetry Physical Exam: GENERAL: The patient is well-developed well-nourished male lying on stretcher exhibiting Kussmaul respiration. [] HEENT: Normocephalic. Atraumatic. Pupils 3 to 2 mm bilaterally NECK: Supple. Trachea midline CHEST/LUNGS: Clear to auscultation. Kussmaul respiration HEART/CARDIOVASCULAR: Regular. There is tachycardia. There is no gallop rub or murmur. ABDOMEN: Abdomen is soft, nontender. Patient has normal bowel sounds. There is no abdominal distention. SKIN: There is no rash. There is no edema. There is no diaphoresis. NEURO: The patient is lethargic and does not respond to verbal or tactile stimuli MUSCULOSKELETAL:There is no evidence of acute injury. ED Course Vital Signs 07/25/22 19:20 Temperature 98 F Pulse Rate 130 H Respiratory 16 Rate Blood Pressure 110/70 [Right] O2 Sat by Pulse 96 Oximetry - Reevaluation(s) Reevaluation #1: 07/25/22 20:44 Informed by nursing that patient desatted to 75% on room air. Patient was placed on a nonrebreather but sats never increased above 81%. Patient remained obtunded so the decision to intubate using RSI with a high respiratory rate was made. Shortly after intubation patient became asystolic. ACLS protocols were initiated with eventual return of spontaneous circulation - Central Line Placement Right Femoral Consent Obtained: emergent situation Time Out Performed: No Patient Placed on Monitor/Pulse Ox: Yes Prep: mask, gown, gloves Central Line Prep: Chlorhexidine scrub Local Anesthesia Used: Lidocaine 1% Amount of Anesthesia Used (mls): 5 Ultrasound Used for Placement: No Central Line Lumen Inserted: triple Reason for Insertion: High Alert Medication Bloods Obtained for Lab: No Central Line Position: good blood return, all ports aspirated, flus Dressing Applied: Tegaderm Patient Tolerated Procedure: no complications Complications: none - Intubation Time Out Performed: No Sedative: Etomidate Mg Given: 20 Paralytic: Succinylcholine Mg Given: 100 Laryngoscope: fiberoptic video scope Size: 3 Assist Device Used: fiberoptic device ET Tube Size: 8 Tube Secured Depth (cm): 24 Tube Secured Location: lips Tube Placement Confirmation: visualized tube passing t, equal breath sounds bilat, no breath sounds over epi, confirmation by capnometr Patient Tolerated Procedure: no complications Intubation Complications: none ED Medical Decision Making - Lab Data Result diagrams: 07/25/22 19:37 07/25/22 22:10 Laboratory Tests 07/25/22 07/25/22 07/25/22 19:37 19:37 19:37 WBC 18.8 H RBC 6.31 H Hgb 18.8 H Hct 57.3 H MCV 91 MCH 30 MCHC 33 RDW 15.0 Plt Count 216 Lymph % (Auto) 21.7 [place] % (Auto) 7.3 Eos % (Auto) 0.0 Baso % (Auto) 0.3 Lymph # (Auto) 4.1 [place] # (Auto) 1.4 H Eos # (Auto) 0.0 Baso # (Auto) 0.1 Seg Neutrophils % 70.7 H Seg Neutrophils # 13.3 H ABG pH ABG pCO2 ABG pO2 ABG HCO3 ABG O2 Saturation ABG O2 Content ABG Base Excess ABG Hemoglobin ABG Carboxyhemoglobin ABG Methemoglobin VBG pH Oxyhemoglobin FiO2 Sodium 149 H Potassium 3.9 Chloride 110.3 H Carbon Dioxide 18 L Anion Gap 25 BUN 73 H Creatinine 3.3 H Estimated GFR 18 BUN/Creatinine Ratio 22 Glucose 761 H* Lactic Acid Calcium 10.6 H Phosphorus Magnesium 3.10 H Total Bilirubin 0.50 AST 63 H ALT 64 H Alkaline Phosphatase 128 Ammonia Total Creatine Kinase 158 CK-MB (CK-2) < 1.0 CK-MB (CK-2) Rel Index 0.6 Troponin T 0.072 H Total Protein 9.0 H Albumin 4.8 Albumin/Globulin Ratio 1.1 Triglycerides 362 H Cholesterol 126 LDL Cholesterol Direct 44 L HDL Cholesterol 34 L Cholesterol/HDL Ratio 3.70 TSH Free T4 07/25/22 07/25/22 07/25/22 19:37 19:37 19:37 WBC RBC Hgb Hct MCV MCH MCHC RDW Plt Count Lymph % (Auto) [place] % (Auto) Eos % (Auto) Baso % (Auto) Lymph # (Auto) [place] # (Auto) Eos # (Auto) Baso # (Auto) Seg Neutrophils % Seg Neutrophils # ABG pH ABG pCO2 ABG pO2 ABG HCO3 ABG O2 Saturation ABG O2 Content ABG Base Excess ABG Hemoglobin ABG Carboxyhemoglobin ABG Methemoglobin VBG pH 7.362 Oxyhemoglobin FiO2 Sodium Potassium Chloride Carbon Dioxide Anion Gap BUN Creatinine Estimated GFR BUN/Creatinine Ratio Glucose Lactic Acid Calcium Phosphorus Magnesium Total Bilirubin AST ALT Alkaline Phosphatase Ammonia 64.0 H Total Creatine Kinase CK-MB (CK-2) CK-MB (CK-2) Rel Index Troponin T Total Protein Albumin Albumin/Globulin Ratio Triglycerides Cholesterol LDL Cholesterol Direct HDL Cholesterol Cholesterol/HDL Ratio TSH 2.170 Free T4 1.18 07/25/22 07/25/22 07/25/22 21:08 22:10 22:10 WBC RBC Hgb Hct MCV MCH MCHC RDW Plt Count Lymph % (Auto) [place] % (Auto) Eos % (Auto) Baso % (Auto) Lymph # (Auto) [place] # (Auto) Eos # (Auto) Baso # (Auto) Seg Neutrophils % Seg Neutrophils # ABG pH ABG pCO2 ABG pO2 ABG HCO3 ABG O2 Saturation ABG O2 Content ABG Base Excess ABG Hemoglobin ABG Carboxyhemoglobin ABG Methemoglobin VBG pH Oxyhemoglobin FiO2 Sodium 155 H Potassium 4.7 D Chloride 113.1 H Carbon Dioxide 14 L Anion Gap 33 BUN 74 H Creatinine 3.5 H Estimated GFR 17 BUN/Creatinine Ratio 21 Glucose 734 H* Lactic Acid 12.70 H* Calcium 9.8 Phosphorus 2.80 Magnesium Total Bilirubin AST ALT Alkaline Phosphatase Ammonia Total Creatine Kinase CK-MB (CK-2) CK-MB (CK-2) Rel Index Troponin T Total Protein Albumin Albumin/Globulin Ratio Triglycerides Cholesterol LDL Cholesterol Direct HDL Cholesterol Cholesterol/HDL Ratio TSH Free T4 07/25/22 22:20 WBC RBC Hgb Hct MCV MCH MCHC RDW Plt Count Lymph % (Auto) [place] % (Auto) Eos % (Auto) Baso % (Auto) Lymph # (Auto) [place] # (Auto) Eos # (Auto) Baso # (Auto) Seg Neutrophils % Seg Neutrophils # ABG pH 7.342 L ABG pCO2 27.1 ABG pO2 318.2 H ABG HCO3 14.4 L ABG O2 Saturation 99.5 H ABG O2 Content 23.7 ABG Base Excess -9.4 L ABG Hemoglobin 16.7 ABG Carboxyhemoglobin 1.3 ABG Methemoglobin 0.6 VBG pH Oxyhemoglobin 97.6 FiO2 100 Sodium Potassium Chloride Carbon Dioxide Anion Gap BUN Creatinine Estimated GFR BUN/Creatinine Ratio Glucose Lactic Acid Calcium Phosphorus Magnesium Total Bilirubin AST ALT Alkaline Phosphatase Ammonia Total Creatine Kinase CK-MB (CK-2) CK-MB (CK-2) Rel Index Troponin T Total Protein Albumin Albumin/Globulin Ratio Triglycerides Cholesterol LDL Cholesterol Direct HDL Cholesterol Cholesterol/HDL Ratio TSH Free T4 - EKG Data -: EKG Interpreted by Me EKG shows normal: sinus rhythm Rate: tachycardia (117 bpm) - EKG Data When compared to previous EKG there are: previous EKG unavailable Interpretation: nonspecific ST-T wave neel - Radiology Data Radiology results: report reviewed (Chest x-ray #1, chest x-ray #2), image reviewed (Chest x-ray #1, chest x-ray #2) interpreted by me: Chest x-ray #1-no definite focal infiltrates, no pneumothorax. Chest x-ray #2-ET tube in appropriate position. No definite focal infiltrates, no pneumothorax [facility] [address] [place] [address] XRay Report Signed Patient: SHAHRZAD SANCHEZ MR#: Paul [id number] : 1945 Acct:[id number] Age/Sex: 77 / M ADM Date: 07/25/22 Loc: ED Attending Dr: Ordering Physician: JONI MORAN MD Date of Service: 07/25/22 Procedure(s): XR chest 1V ap Accession Number(s): [id number] cc: JONI MORAN MD Fluoro Time In Minutes: CHEST 1 VIEW 07/25/2022 7:15 PM INDICATION / CLINICAL INFORMATION: Tachypnea, AMS. COMPARISON: One view of the chest from 03/11/2020. FINDINGS: SUPPORT DEVICES: None. HEART / MEDIASTINUM: No significant abnormality. LUNGS / PLEURA: No significant pulmonary abnormality. No significant pleural effusion. No pneumothorax. ADDITIONAL FINDINGS: No significant additional findings. IMPRESSION: 1. No acute abnormality of the chest. Signer Name: Chet Pugh MD Signed: 07/25/2022 8:24 PM Workstation Name: [id number] Transcribed By: MN Dictated By: Chet Pugh MD Electronically Authenticated By: Chet Pugh MD Signed Date/Time: 07/25/222023 DD/ 22 TD/TT: - Differential Diagnosis DKA, ICH, dehydration Critical care attestation.: If time is entered above; I have spent that time in minutes in the direct care of this critically ill patient, excluding procedure time. ED Disposition Clinical Impression: Cardiac arrest, Hyperglycemia Disposition: ADMITTED INPATIENT Is pt being admited?: Yes Does the pt Need Aspirin: No Condition: Serious Time of Disposition: 23:30 (Care transferred to hospitalist (Dr. Watts))
[2022-07-25 19:59] LABS: Basophils # (Auto) 0.1 K/mm3 (0.0-0.1); Basophils % (Auto) 0.3 % (0.0-1.8); Hematocrit 57.3 % (35.5-45.6); Hemoglobin 18.8 gm/dl (11.8-15.2); Lymphocytes # (Auto) 4.1 K/mm3 (1.2-5.4); Lymphocytes % (Auto) 21.7 % (13.4-35.0); Mean Corpuscular HGB Conc 33 % (32-34); Mean Corpuscular Volume 91 fl (84-94); Monocytes # (Auto) 1.4 K/mm3 (0.0-0.8); Monocytes % (Auto) 7.3 % (0.0-7.3); Platelet Count 216 K/mm3 (140-440); Red Blood Count 6.31 M/mm3 (3.65-5.03)
[2022-07-25 20:18] LABS: Alanine Aminotransferase 64 units/L (7-56); Albumin 4.8 g/dL (3.9-5); BUN/Creatinine Ratio 22; Blood Urea Nitrogen 73 mg/dL (9-20); Calcium 10.6 mg/dL (8.4-10.2); Hemolysis Index 23
--- NOTE | 2022-07-25 20:28 | XRay Report ---
CHEST 1 VIEW 07/25/2022 7:15 PM INDICATION / CLINICAL INFORMATION: Tachypnea, AMS. COMPARISON: One view of the chest from 03/11/2020. FINDINGS: SUPPORT DEVICES: None. HEART / MEDIASTINUM: No significant abnormality. LUNGS / PLEURA: No significant pulmonary abnormality. No significant pleural effusion. No pneumothora x. ADDITIONAL FINDINGS: No significant additional findings. IMPRESSION: 1. No acute abnormality of the chest. Signer Name: Chet Pugh MD Signed: 07/25/2022 8:24 PM Workstation Name: [id number]
[2022-07-25 20:32] LABS: Free T4 (Free Thyroxine) 1.18 ng/dL (0.76-1.46)
[2022-07-25] MEDS ORDERED: MAGNESIUM SULFATE 2 GM/50 ML BAG IV ONE (20:38)
[2022-07-25] MEDS ORDERED: LIDOCAINE DRIP 2,000 MG/500 ML BAG IV ONE (20:46)
[2022-07-25 21:19] LABS: Creatine Kinase MB < 1.0 ng/mL (0.0-4.0)
--- NOTE | 2022-07-25 21:34 | XRay Report ---
CHEST 1 VIEW 07/25/2022 8:16 PM INDICATION / CLINICAL INFORMATION: Status post intubation/cardiac arrest. COMPARISON: One view of the chest from earlier today. FINDINGS: SUPPORT DEVICES: An ET tube has been placed with the tip located 4.5 cm above the andi. An esophago gastric tube terminates over the distal stomach/proximal duodenum. HEART / MEDIASTINUM: No significant abnormality. LUNGS / PLEURA: No significant pulmonary abnormality. No significant pleural effusion. No pneumothora x. ADDITIONAL FINDINGS: No significant additional findings. IMPRESSION: 1. No acute abnormality of the chest. 2. Satisfactory positioning of ET and esophagogastric tubes. Signer Name: Chet Pugh MD Signed: 07/25/2022 9:29 PM Workstation Name: [id number]
[2022-07-25 21:45] LABS: HDL Cholesterol 34 mg/dL (40-59); LDL Cholesterol,Direct 44 mg/dL (50-130)
[2022-07-25] MEDS: INSULIN REGULAR, HUMAN 100 UNITS in SODIUM CHLORIDE 0.9% 99 ML IV SCH (22:00)
[2022-07-25 22:37] LABS: ABG Base Excess -9.4 mmol/L (-2.0-3.0); ABG HCO3 14.4 mmol/L (20.0-26.0); ABG Methemoglobin 0.6 % (0.0-1.5); ABG Oxygen Saturation 99.5 % (95.0-99.0); ABG PCO2 27.1 mm Hg; ABG PH 7.342 pH Units (7.350-7.450)
[2022-07-25 22:48] LABS: ABG PO2 318.2 mm Hg (80.0-90.0)
[2022-07-25 22:50] LABS: Calcium 9.8 mg/dL (8.4-10.2)
--- NOTE | 2022-07-25 23:22 | Cat Scan Report ---
CT HEAD WITHOUT CONTRAST INDICATION: Altered mental status TECHNIQUE: All CT scans at this location are performed using CT dose reduction for ALARA by means of automated exposure control. COMPARISON: 03/11/2020 FINDINGS: BRAIN: Images were obtained in a nonstandard position. No hemorrhage or mass effect are seen. No evid ence of acute infarction is noted. 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 Moderate white matter microvas cular changes are again seen. 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 Moderate atrophic changes are again noted. ORBITS: Normal as visualized. SOFT TISSUES OF HEAD: Normal. CALVARIUM: Normal. VISUALIZED PARANASAL SINUSES AND MASTOID AIR CELLS: Clear. ADDITIONAL FINDINGS: None. IMPRESSION: No acute intracranial abnormality. Signer Name: Efren Ashley MD Signed: 07/25/2022 11:18 PM Workstation Name: [id number]
[2022-07-25] MEDS ORDERED: SODIUM CHLORIDE 0.9% 1000 ML 1,000 ML ONE (23:45)
[2022-07-26] MEDS ORDERED: MAGNESIUM SULFATE 2 GM/50 ML BAG IV ONE (00:27)
[2022-07-26] MEDS ORDERED: MORPHINE 4 MG/1 ML INJ IV PRN (00:31)
[2022-07-26] MEDS ORDERED: ALBUTEROL 2.5 MG/3 ML NEBU IH PRN (00:31)
[2022-07-26] MEDS ORDERED: traMADol 50 MG TAB PO PRN (00:31)
[2022-07-26] MEDS ORDERED: DEXTROSE 50% IN WATER (25GM) 50 ML SYRINGE IV PRN (00:31)
[2022-07-26] MEDS ORDERED: ONDANSETRON 4 MG/2 ML INJ IV PRN (00:31)
[2022-07-26] MEDS ORDERED: NITROGLYCERIN 0.4 MG TAB SUBL SL PRN (00:31)
[2022-07-26] MEDS ORDERED: MORPHINE 2 MG/1 ML INJ IV PRN (00:31)
[2022-07-26] MEDS ORDERED: ACETAMINOPHEN 325 MG TAB PO PRN (00:31)
[2022-07-26 00:42] LABS: Calcium 8.9 mg/dL (8.4-10.2)
--- NOTE | 2022-07-26 00:43 | History and Physical Report ---
History of Present Illness Date of examination: 07/26/22 Date of admission: 07/26/22 Chief complaint: Hyperglycemia Unresponsiveness History of present illness: 77-year-old male with history of hypertension , acute [place] and diabetes was brought to the emergency room because of altered mental status. Patient is a resident at [facility] ([facility]). This was initially called for "difficulty breathing." EMS upon arrival found the patient altered nonresponsi ve with an elevated glucose. Patient's last known well time is currently unknown. Family visited the patient this afternoon at 3 PM and notices altered behavior. The patient does not respond to verbal or tactile stimuli. In the emergency room patient desatted to 75% on room air. Patient was placed on a nonrebreather but sats never increased above 81%. Patient remained obtunded so the decision to intubate using RSI with a high respiratory rate was made. Shortly after intubation patient became asystolic. ACLS protocols were initiated with eventual return of spontaneous circulation. Also patient is found to have WBC of 18.8, sodium 155, bicarb 14, BUN 74 creatinine 3.5, blood glucose 734, so going to admit the patient. We will put the patient on IV fluid insulin drip, antibiotic, will consult critical care, cardiology and nephrology for evaluation Past History Past Medical History: acute [place], diabetes, hypertension Past Surgical History: cholecystectomy Social history: no significant social history Family history: diabetes, hypertension Medications and Allergies Allergies Allergy/AdvReac Type Severity Reaction Status Date / Time aspirin Allergy Swelling Verified 02/15/20 13:24 iron Allergy Itching Verified 02/15/20 13:24 Home Medications Medication Instructions Recorded Confirmed Last Taken Type metFORMIN [Glucophage] 1,000 mg PO BID 02/11/14 02/15/20 02/14/20 History Acetaminophen [Acetaminophen ER 650 mg PO Q8HR PRN #20 tablet.er 10/21/19 02/15/20 Unknown Rx TAB] ALBUTEROL NEB's [Proventil 0.083% 2.5 mg IH Q3HRT PRN #30 nebu 03/09/20 Unknown Rx NEBS] Aspirin EC [Halfprin EC] 81 mg PO QDAY #30 tablet.dr 03/09/20 Unknown Rx AtorvaSTATin [Lipitor] 40 mg FEEDTUBE QHS #30 tablet 03/09/20 Unknown Rx Famotidine [Pepcid] 20 mg FEEDTUBE DAILY #30 tablet 03/09/20 Unknown Rx Insulin Glargine [Lantus VIAL] 50 units SUB-Q QAMDIAB #1 vial 03/09/20 Unknown Rx Insulin Glargine [Lantus VIAL] 50 units SUB-Q QHS #1 vial 03/09/20 Unknown Rx Insulin Regular, Human [HumuLIN R] 0 units SUB-Q Q6HR #1 vial 03/09/20 Unknown Rx Metoclopramide [Reglan ORAL LIQ] 5 mg FEEDTUBE Q6H PRN 30 Days 03/09/20 Unknown Rx Metoprolol [Lopressor TAB] 100 mg FEEDTUBE BID #60 tablet 03/09/20 Unknown Rx amLODIPine 10 mg FEEDTUBE QDAY #30 tablet 03/09/20 Unknown Rx traMADoL [Ultram 50 MG tab] 50 mg FEEDTUBE Q6HR PRN #10 tablet 03/09/20 Unknown Rx Active Meds: Active Medications Lidocaine HCl/Dextrose (Xylocaine/D5w 2gm/500ml Drip) 2,000 mg in 500 mls @ 30 mls/hr IV DIRECT ONE; Protocol Stop: 07/26/22 13:25 Last Admin: 07/25/22 21:39 Dose: 2 mg/min, 30 mls/hr Insulin Human Regular 100 (units/ Sodium Chloride) 100 mls @ 6 mls/hr IV TITR LIZZIE; Protocol Last Titration: 07/25/22 23:34 Dose: 8 units/hr, 8 mls/hr NORepinephrine/NS 8 MG-250 ML (Norepinephrine/Ns 8 Mg-250 Ml (Double Conc)) 8 mg in 250 mls @ 3.75 mls/hr IV TITRATE LIZZIE; Protocol Sodium Chloride (Nacl 0.9% 1000 Ml) 1,000 mls @ 999 mls/hr IV ONCE ONE Stop: 07/26/22 00:52 Last Admin: 07/25/22 23:55 Dose: 999 mls/hr Magnesium Sulfate (Magnesium Sulfate 2gm/50ml) 2 gm in 50 mls @ 100 mls/hr IV ONCE ONE Stop: 07/26/22 00:56 Last Admin: 07/25/22 20:45 Dose: 100 mls/hr Review of Systems All systems: negative Constitutional: fatigue, malaise, other (Unresponsiveness) Cardiovascular: shortness of breath, dyspnea on exertion Respiratory: shortness of breath, dyspnea on exertion Exam - Constitutional Vitals: Temp Pulse Resp BP Pulse Ox 98 F 102 H 25 H 94/45 100 07/25/22 19:20 07/25/22 23:30 07/25/22 23:29 07/25/22 20:48 07/25/22 23:30 General appearance: Present: no acute distress, well-nourished - EENT Eyes: Present: PERRL ENT: hearing intact, clear oral mucosa - Neck Neck: Present: supple, normal ROM - Respiratory Respiratory effort: normal Respiratory: bilateral: CTA - Cardiovascular Heart Sounds: Present: S1 & S2. Absent: rub, click - Extremities Extremities: pulses symmetrical, No edema Peripheral Pulses: within normal limits - Abdominal General gastrointestinal: Present: soft, non-tender, non-distended, normal bowel sounds Male genitourinary: Present: normal - Integumentary Integumentary: Present: clear, warm, dry - Musculoskeletal Musculoskeletal: gait normal, strength equal bilaterally - Psychiatric Psychiatric: other (Patient is unresponsive on vent) - Neurologic Neurologic: CNII-XII intact, moves all extremities HEART Score - HEART Score Troponin: Troponin T 0.072 ng/mL (0.00-0.029) H 07/25/22 19:37 Results - Labs CBC & Chem 7: 07/25/22 19:37 07/25/22 22:10 Labs: Laboratory Last Values WBC 18.8 K/mm3 (4.5-11.0) H 07/25/22 19:37 RBC 6.31 M/mm3 (3.65-5.03) H 07/25/22 19:37 Hgb 18.8 gm/dl (11.8-15.2) H 07/25/22 19:37 Hct 57.3 % (35.5-45.6) H 07/25/22 19:37 MCV 91 fl (84-94) 07/25/22 19:37 MCH 30 pg (28-32) 07/25/22 19:37 MCHC 33 % (32-34) 07/25/22 19:37 RDW 15.0 % (13.2-15.2) 07/25/22 19:37 Plt Count 216 K/mm3 (140-440) 07/25/22 19:37 Lymph % (Auto) 21.7 % (13.4-35.0) 07/25/22 19:37 [place] % (Auto) 7.3 % (0.0-7.3) 07/25/22 19:37 Eos % (Auto) 0.0 % (0.0-4.3) 07/25/22 19:37 Baso % (Auto) 0.3 % (0.0-1.8) 07/25/22 19:37 Lymph # (Auto) 4.1 K/mm3 (1.2-5.4) 07/25/22 19:37 [place] # (Auto) 1.4 K/mm3 (0.0-0.8) H 07/25/22 19:37 Eos # (Auto) 0.0 K/mm3 (0.0-0.4) 07/25/22 19:37 Baso # (Auto) 0.1 K/mm3 (0.0-0.1) 07/25/22 19:37 Seg Neutrophils % 70.7 % (40.0-70.0) H 07/25/22 19:37 Seg Neutrophils # 13.3 K/mm3 (1.8-7.7) H 07/25/22 19:37 ABG pH 7.342 pH Units (7.350-7.450) L 07/25/22 22:20 ABG pCO2 27.1 mm Hg 07/25/22 22:20 ABG pO2 318.2 mm Hg (80.0-90.0) H 07/25/22 22:20 ABG HCO3 14.4 mmol/L (20.0-26.0) L 07/25/22 22:20 ABG O2 Saturation 99.5 % (95.0-99.0) H 07/25/22 22:20 ABG O2 Content 23.7 (0.0-44) 07/25/22 22:20 ABG Base Excess -9.4 mmol/L (-2.0-3.0) L 07/25/22 22:20 ABG Hemoglobin 16.7 gm/dl (14.0-18.0) 07/25/22 22:20 ABG Carboxyhemoglobin 1.3 % (0.0-5.0) 07/25/22 22:20 ABG Methemoglobin 0.6 % (0.0-1.5) 07/25/22 22:20 VBG pH 7.362 (7.320-7.420) 07/25/22 19:37 Oxyhemoglobin 97.6 % (95.0-99.0) 07/25/22 22:20 FiO2 100 % 07/25/22 22:20 Sodium 155 mmol/L (137-145) H 07/25/22 22:10 Potassium 4.7 mmol/L (3.6-5.0) D 07/25/22 22:10 Chloride 113.1 mmol/L (98-107) H 07/25/22 22:10 Carbon Dioxide 14 mmol/L (22-30) L 07/25/22 22:10 Anion Gap 33 mmol/L 07/25/22 22:10 BUN 74 mg/dL (9-20) H 07/25/22 22:10 Creatinine 3.5 mg/dL (0.8-1.3) H 07/25/22 22:10 Estimated GFR 17 ml/min 07/25/22 22:10 BUN/Creatinine Ratio 21 % 07/25/22 22:10 Glucose 734 mg/dL (75-100) H* 07/25/22 22:10 Lactic Acid 12.70 mmol/L (0.7-2.0) H* 07/25/22 21:08 Calcium 9.8 mg/dL (8.4-10.2) 07/25/22 22:10 Phosphorus 2.80 mg/dL (2.5-4.5) 07/25/22 22:10 Magnesium 3.10 mg/dL (1.7-2.3) H 07/25/22 19:37 Total Bilirubin 0.50 mg/dL (0.1-1.2) 07/25/22 19:37 AST 63 units/L (5-40) H 07/25/22 19:37 ALT 64 units/L (7-56) H 07/25/22 19:37 Alkaline Phosphatase 128 units/L (35-129) 07/25/22 19:37 Ammonia 64.0 umol/L (25-60) H 07/25/22 19:37 Total Creatine Kinase 158 units/L (55-170) 07/25/22 19:37 CK-MB (CK-2) < 1.0 ng/mL (0.0-4.0) 07/25/22 19:37 CK-MB (CK-2) Rel Index 0.6 (0-4) 07/25/22 19:37 Troponin T 0.072 ng/mL (0.00-0.029) H 07/25/22 19:37 Total Protein 9.0 g/dL (6.3-8.2) H 07/25/22 19:37 Albumin 4.8 g/dL (3.9-5) 07/25/22 19:37 Albumin/Globulin Ratio 1.1 % 07/25/22 19:37 Triglycerides 362 mg/dL (2-149) H 07/25/22 19:37 Cholesterol 126 mg/dL (50-199) 07/25/22 19:37 LDL Cholesterol Direct 44 mg/dL (50-130) L 07/25/22 19:37 HDL Cholesterol 34 mg/dL (40-59) L 07/25/22 19:37 Cholesterol/HDL Ratio 3.70 % 07/25/22 19:37 TSH 2.170 mlU/mL (0.270-4.200) 07/25/22 19:37 Free T4 1.18 ng/dL (0.76-1.46) 07/25/22 19:37 Microbiology: Microbiology 07/25/22 22:10 Peripheral/Venous Blood Culture - Preliminary Culture in Progress 07/25/22 21:08 Peripheral/Venous Blood Culture - Preliminary Culture in Progress - Imaging and Cardiology Chest x-ray: report reviewed CT Scan - head: report reviewed Assessment and Plan VTE prophylaxis?: Mechanical Plan of care discussed with patient/family: Yes - Patient Problems (1) Acute respiratory failure Current Visit: Yes Status: Acute Plan to address problem: Admit the patient to the ICU. Patient is status post intubation.. DuoNeb via nebulizer every 4 hours. Albuterol via nebulizer every 4 hours as needed. Reconsult critical care evaluation. Recheck CBC BMP in the morning (2) DKA (diabetic ketoacidosis) Current Visit: Yes Status: Acute Plan to address problem: We will put the patient on half-normal saline at the rate of 125 cc/h. Insulin drip as per protocol. We will do the serial BMP. Diabetic education. (3) Cardiac arrest Current Visit: Yes Status: Acute Plan to address problem: Aspirin 81 mg p.o. daily. Lipitor 40 mg p.o. daily. We will do the serial cardiac enzyme. Echocardiogram. Cardiology evaluation (4) Leukocytosis Current Visit: Yes Status: Acute Plan to address problem: Rocephin 2 g IV daily. We do the blood culture and sputum culture. Recheck CBC in the morning (5) FREDI (acute kidney injury) Current Visit: Yes Status: Acute Plan to address problem: Avoid nephrotoxic drug. Renally dose medication. Half-normal saline at the rate of 125 cc/h. Recheck BMP in the morning (6) Atrial fibrillation Current Visit: No Status: Acute Plan to address problem: Stable.Aspirin 81 mg p.o. daily. Lipitor 40 mg p.o. daily. We will do the serial cardiac enzyme. Echocardiogram. Cardiology evaluation (7) CVA (cerebral vascular accident) Current Visit: No Status: Acute Plan to address problem: Aspirin 81 mg p.o. daily. Lipitor 40 mg p.o. daily. Neurology evaluation (8) HTN (hypertension) Current Visit: No Status: Acute Plan to address problem: Metoprolol 100 mg p.o. twice daily. Amlodipine 10 mg p.o. daily. Echocardiogram. Cardiology evaluation (9) Gastroesophageal reflux Current Visit: No Status: Chronic Plan to address problem: Pepcid 20 mg IV every 12 hours for GI prophylaxis (10) DVT prophylaxis Current Visit: No Status: Acute Plan to address problem: SCD for DVT prophylaxis. Pepcid 20 mg IV every 12 hours for GI prophylaxis. Patient is a full code
[2022-07-26] MEDS ORDERED: INSULIN REGULAR, HUMAN 100 UNITS in SODIUM CHLORIDE 0.9% 99 ML IV SCH (01:00)
[2022-07-26] MEDS ORDERED: SODIUM CHLORIDE 0.45% 1000 ML 1,000 ML IV SCH (01:00)
[2022-07-26] MEDS: cefTRIAXone/NS 2 GM/100 ML 2 GM/100 ML BAG IV SCH ×2 (01:09→09:38)
[2022-07-26 01:26] LABS: Mean Corpuscular HGB Conc 31 % (32-34); Mean Corpuscular Volume 94 fl (84-94); Platelet Count 196 K/mm3 (140-440); Red Blood Count 5.88 M/mm3 (3.65-5.03)
[2022-07-26 01:30] LABS: Hemoglobin 17.2 gm/dl (11.8-15.2)
[2022-07-26] MEDS: NORepinephrine/NS 8 MG-250 ML 8 MG/250 ML INFUS..BTL IV SCH ×5 (01:42→20:51)
[2022-07-26] MEDS ORDERED: dilTIAZem 25 MG/5 ML INJ IV ONE (01:46)
[2022-07-26] MEDS ORDERED: SODIUM CHLORIDE 0.9% 1000 ML 1,000 ML IV SCH (02:00)
[2022-07-26] MEDS ORDERED: ACETAMINOPHEN 120 MG RECT SUPP PR ONE (02:02)
[2022-07-26] MEDS ORDERED: ACETAMINOPHEN 650 MG RECT SUPP PR PRN (02:04)
[2022-07-26] MEDS ORDERED: dilTIAZem/D5W 100 MG/100 ML BAG IV ONE (02:06)
[2022-07-26] MEDS ORDERED: ACETAMINOPHEN 650 MG RECT SUPP PR ONE ×2 (02:06→02:42)
[2022-07-26] MEDS: IPRATROPIUM/ALBUTEROL SULFATE 3 ML AMPUL.NEB IH SCH ×2 (02:12→08:37)
[2022-07-26 02:34] LABS: Band Neutrophils # (Manual) 1.5 K/mm3; Basophils % (Manual) 0 % (0.0-1.8); Eosinophils % (Manual) 0 % (0.0-4.3); Large Platelets Few; Platelet Estimate Consistent w Auto; Total Cells Counted 100
[2022-07-26] MEDS ORDERED: SODIUM CHLORIDE 0.9% 1000 ML 1,000 ML IV ONE (04:04)
[2022-07-26] MEDS ORDERED: AMIODARONE 150 MG in DEXTROSE 5% IN WATER 97 ML IV ONE (04:12)
[2022-07-26] MEDS: AMIODARONE 900 MG in DEXTROSE 5% IN WATER 482 ML IV SCH ×2 (04:45→21:46)
[2022-07-26] MEDS: VASOPRESSIN 20 UNIT in SODIUM CHLORIDE 0.9% 100 ML IV SCH ×2 (05:00→14:29)
[2022-07-26 05:19] LABS: Calcium 7.8 mg/dL (8.4-10.2)
[2022-07-26 05:23] LABS: ABG Base Excess -13.3 mmol/L (-2.0-3.0); ABG Methemoglobin 0.6 % (0.0-1.5); ABG Oxygen Saturation 99.1 % (95.0-99.0); ABG PCO2 22.9 mm Hg; ABG PH 7.301 pH Units (7.350-7.450); ABG PO2 178.2 mm Hg (80.0-90.0)
[2022-07-26] MEDS ORDERED: SODIUM BICARB 8.4% 50 MEQ/50 ML SYRINGE IV ONE (05:52)
[2022-07-26] MEDS: POTASSIUM CHLORIDE 20 MEQ 20 MEQ/100 ML BAG IV SCH ×2 (06:25→07:32)
[2022-07-26] MEDS ORDERED: METOPROLOL TARTRATE 100 MG TAB FEEDTUBE SCH (08:00)
[2022-07-26] MEDS: INSULIN REGULAR, HUMAN 100 UNITS in SODIUM CHLORIDE 0.9% 99 ML IV SCH ×3 (08:03→21:52)
[2022-07-26] MEDS ORDERED: POTASSIUM PHOSPHATE 40 MMOL in SODIUM CHLORIDE 0.9% 500 ML 500 ML IV ONE (08:12)
[2022-07-26] MEDS ORDERED: POTASSIUM PHOSPHATE 15 MMOL in SODIUM CHLORIDE 0.9% 250ML 250 ML IV SCH (09:30)
[2022-07-26] MEDS: FAMOTIDINE 20 MG/2 ML INJ IV SCH (09:37)
[2022-07-26] MEDS: D5W/0.45% NACL/KCL 20 MEQ 20 MEQ/1,000 ML BAG IV SCH (09:39)
[2022-07-26 09:40] LABS: Mucus,Urine FEW /HPF; Renal Epithelial Cells,Urine 3 /LPF; WBC,Urine < 1.0 /HPF (0.0-6.0)
[2022-07-26] MEDS ORDERED: amLODIPine 10 MG TAB FEEDTUBE SCH (10:00)
[2022-07-26] MEDS ORDERED: ASPIRIN EC 81 MG TAB PO SCH (10:00)
[2022-07-26 10:06] LABS: Color,Urine Amber (Yellow)
--- NOTE | 2022-07-26 10:11 | Consultation ---
History of Present Illness Consult date: 07/26/22 Reason for Consult: Encephalopathy Chief complaint: Encephalopathy History of present illness: 77 yo male with htn, dm, cadx, who presents with respiratory distress and s/p cardiac arrest (asystole; rosc ~13 mins). Currently noted with severe encephalopathy. Not on any sedation. No seizure activity, per RN at bedside. Past History Past Medical History: acute [place], diabetes, hypertension Past Surgical History: cholecystectomy Social history: no significant social history Family history: diabetes, hypertension Medications and Allergies Allergies Allergy/AdvReac Type Severity Reaction Status Date / Time aspirin Allergy Swelling Verified 02/15/20 13:24 iron Allergy Itching Verified 02/15/20 13:24 Home Medications Medication Instructions Recorded Confirmed Last Taken Type metFORMIN [Glucophage] 1,000 mg PO BID 02/11/14 02/15/20 02/14/20 History Acetaminophen [Acetaminophen ER 650 mg PO Q8HR PRN #20 tablet.er 10/21/19 02/15/20 Unknown Rx TAB] ALBUTEROL NEB's [Proventil 0.083% 2.5 mg IH Q3HRT PRN #30 nebu 03/09/20 Unknown Rx NEBS] Aspirin EC [Halfprin EC] 81 mg PO QDAY #30 tablet. 03/09/20 Unknown Rx AtorvaSTATin [Lipitor] 40 mg FEEDTUBE QHS #30 tablet 03/09/20 Unknown Rx Famotidine [Pepcid] 20 mg FEEDTUBE DAILY #30 tablet 03/09/20 Unknown Rx Insulin Glargine [Lantus VIAL] 50 units SUB-Q QAMDIAB #1 vial 03/09/20 Unknown Rx Insulin Glargine [Lantus VIAL] 50 units SUB-Q QHS #1 vial 03/09/20 Unknown Rx Insulin Regular, Human [HumuLIN R] 0 units SUB-Q Q6HR #1 vial 03/09/20 Unknown Rx Metoclopramide [Reglan ORAL LIQ] 5 mg FEEDTUBE Q6H PRN 30 Days 03/09/20 Unknown Rx Metoprolol [Lopressor TAB] 100 mg FEEDTUBE BID #60 tablet 03/09/20 Unknown Rx amLODIPine 10 mg FEEDTUBE QDAY #30 tablet 03/09/20 Unknown Rx traMADoL [Ultram 50 MG tab] 50 mg FEEDTUBE Q6HR PRN #10 tablet 03/09/20 Unknown Rx Active Meds: Active Medications Acetaminophen (Acetaminophen 325 Mg Tab) 650 mg PO Q4H PRN PRN Reason: Pain MILD(1-3)/Fever >100.5/LANTIGUA Acetaminophen (Acetaminophen 650 Mg Rect Supp) 650 mg [place] Q4H PRN PRN Reason: Pain, Mild (1-3) Albuterol (Albuterol 2.5 Mg/3 Ml Nebu) 2.5 mg IH Q3HRT PRN PRN Reason: Shortness Of Breath Albuterol/Ipratropium (Ipratropium/Albuterol Sulfate 3 Ml Ampul.Neb) 1 ampul IH Q6HRT LIZZIE Last Admin: 07/26/22 08:37 Dose: 1 ampul Atorvastatin Calcium (Atorvastatin 40 Mg Tab) 40 mg PO QHS LIZZIE Dextrose (Dextrose 50% In Water (25gm) 50 Ml Syringe) 0 ml IV Q30MIN PRN; Protocol PRN Reason: Hypoglycemia Famotidine (Famotidine 20 Mg/2 Ml Inj) 20 mg IV QAM LIZZIE Last Admin: 07/26/22 09:37 Dose: 20 mg Lidocaine HCl/Dextrose (Xylocaine/D5w 2gm/500ml Drip) 2,000 mg in 500 mls @ 30 mls/hr IV DIRECT ONE; Protocol Stop: 07/26/22 13:25 Last Titration: 07/26/22 01:41 Dose: 0 mg/min, 0 mls/hr Insulin Human Regular 100 (units/ Sodium Chloride) 100 mls @ 6 mls/hr IV TITR LIZZIE; Protocol Last Titration: 07/26/22 08:59 Dose: 14 units/hr, 14 mls/hr NORepinephrine/NS 8 MG-250 ML (Norepinephrine/Ns 8 Mg-250 Ml (Double Conc)) 8 mg in 250 mls @ 3.75 mls/hr IV TITRATE LIZZIE; Protocol Last Admin: 07/26/22 07:32 Dose: 30 mcg/min, 56.25 mls/hr Potassium Chloride/Dextrose/Sod Cl (D5w/0.45% Nacl/Kcl 20 Meq) 20 meq in 1,000 mls @ 125 mls/hr IV DIRECT LIZZIE Last Admin: 07/26/22 09:39 Dose: 125 mls/hr Ceftriaxone Sodium (Rocephin/Ns 2 Gm/100 Ml) 2 gm in 100 mls @ 200 mls/hr IV Q24HR LIZZIE; Protocol Last Admin: 07/26/22 09:38 Dose: 200 mls/hr Sodium Chloride (Nacl 0.9% 1000 Ml) 1,000 mls @ 125 mls/hr IV DIRECT LIZZIE Last Infusion: 07/26/22 09:39 Dose: 0 mls/hr Amiodarone HCl 900 mg/ (Dextrose) 500 mls @ 33.333 mls/hr IV DIRECT LIZZIE; Protocol Last Admin: 07/26/22 04:45 Dose: 1 mg/min, 33.333 mls/hr Vasopressin 20 unit/ Sodium (Chloride) 101 mls @ 9.09 mls/hr IV TITR LIZZIE; Protocol Last Admin: 07/26/22 05:00 Dose: 0.03 units/min, 9.09 mls/hr Potassium Phosphate 15 mmol/ (Sodium Chloride) 255 mls @ 125 mls/hr IV ONCE@0930 LIZZIE Stop: 07/26/22 12:30 Last Admin: 07/26/22 09:38 Dose: 125 mls/hr Nitroglycerin (Nitroglycerin 0.4 Mg Tab Subl) 0.4 mg SL Q5M PRN PRN Reason: Chest Pain Ondansetron HCl (Ondansetron 4 Mg/2 Ml Inj) 4 mg IV Q8H PRN PRN Reason: Nausea And Vomiting Sodium Chloride (Sodium Chloride 0.9% 10 Ml Flush Syringe) 10 ml IV BID LIZZIE Sodium Chloride (Sodium Chloride 0.9% 10 Ml Flush Syringe) 10 ml IV PRN PRN PRN Reason: LINE FLUSH Tramadol HCl (Tramadol 50 Mg Tab) 50 mg PO Q6H PRN PRN Reason: Pain, Moderate (4-6) Review of Systems ROS unobtainable: due to mental status Physical Examination - Vital Signs Vital Signs: Vital Signs Temp Pulse Resp BP Pulse Ox 98 F 130 H 16 110/70 96 07/25/22 19:20 07/25/22 19:20 07/25/22 19:20 07/25/22 19:20 07/25/22 19:20 - Physical Exam Narrative exam: Gen: nad, intubated; Head: normocephalic; Eyes: no gaze deviation; ENT: +ETT; CVS: warm and well-perfused; Pulm: no respiratory distress; GI: appears non-distended; Ext: no cyanosis appreciated at distal extremities; Skin: no acute rash appreciated at distal extremities; Heme: no pathologic ecchymosis appreciated at distal extremities; Neuro: comatose, intubated, aphasic; CN 2 - sluggish reactive pupils, CN 3, 4, 6 - oculocephalic absent, CN 5/7 - corneal reflex absent, CN 9/10 - absent cough reflex via ETT but change in breathing pattern during exam (tachypneic), CN 11/12 - pt cannot cooperate secondary to LOC; Motor/Sensory - 0/5 at all exts to tactile stimuli; Cerebellar/Gait - pt cannot cooperate secondary to LOC; Results - Laboratory Findings CBC and BMP: 07/26/22 00:39 07/26/22 04:35 Abnormal Lab Findings: Abnormal Labs 07/25/22 07/25/22 07/25/22 19:37 19:37 19:37 WBC 18.8 H RBC 6.31 H Hgb 18.8 H Hct 57.[address] [place] # (Auto) 1.4 H Seg Neutrophils % 70.7 H Seg Neuts % (Manual) Lymphocytes % (Manual) Seg Neutrophils # 13.3 H Seg Neutrophils # Man ABG pH ABG pO2 ABG HCO3 ABG O2 Saturation ABG Base Excess Sodium 149 H Potassium Chloride 110.3 H Carbon Dioxide 18 L BUN 73 H Creatinine 3.3 H Glucose 761 H* POC Glucose Lactic Acid Calcium 10.6 H Phosphorus Magnesium 3.10 H AST 63 H ALT 64 H Ammonia Troponin T 0.072 H Total Protein 9.0 H Triglycerides 362 H LDL Cholesterol Direct 44 L HDL Cholesterol 34 L 07/25/22 07/25/22 07/25/22 19:37 21:08 22:10 WBC RBC Hgb Hct MCHC RDW [place] # (Auto) Seg Neutrophils % Seg Neuts % (Manual) Lymphocytes % (Manual) Seg Neutrophils # Seg Neutrophils # Man ABG pH ABG pO2 ABG HCO3 ABG O2 Saturation ABG Base Excess Sodium 155 H Potassium Chloride 113.1 H Carbon Dioxide 14 L BUN 74 H Creatinine 3.5 H Glucose 734 H* POC Glucose Lactic Acid 12.70 H* Calcium Phosphorus Magnesium AST ALT Ammonia 64.0 H Troponin T Total Protein Triglycerides LDL Cholesterol Direct HDL Cholesterol 07/25/22 07/25/22 07/26/22 22:20 23:29 00:13 WBC RBC Hgb Hct MCHC RDW [place] # (Auto) Seg Neutrophils % Seg Neuts % (Manual) Lymphocytes % (Manual) Seg Neutrophils # Seg Neutrophils # Man ABG pH 7.342 L ABG pO2 318.2 H ABG HCO3 14.4 L ABG O2 Saturation 99.5 H ABG Base Excess -9.4 L Sodium 157 H Potassium 3.1 L D Chloride 114.0 H Carbon Dioxide 21 L D BUN 72 H Creatinine 3.7 H Glucose 615 H* POC Glucose > 600 H Lactic Acid Calcium Phosphorus Magnesium AST ALT Ammonia Troponin T Total Protein Triglycerides LDL Cholesterol Direct HDL Cholesterol 07/26/22 07/26/22 07/26/22 00:13 00:38 00:39 WBC 21.4 H RBC 5.88 H Hgb 17.2 H Hct 55.0 H MCHC [address] [place] # (Auto) Seg Neutrophils % Seg Neuts % (Manual) 77.0 H Lymphocytes % (Manual) 13.0 L Seg Neutrophils # Seg Neutrophils # Man 16.5 H ABG pH ABG pO2 ABG HCO3 ABG O2 Saturation ABG Base Excess Sodium Potassium Chloride Carbon Dioxide BUN Creatinine Glucose POC Glucose 517 H Lactic Acid 9.10 H* Calcium Phosphorus Magnesium AST ALT Ammonia Troponin T Total Protein Triglycerides LDL Cholesterol Direct HDL Cholesterol 07/26/22 07/26/22 07/26/22 00:39 01:32 02:28 WBC RBC Hgb Hct MCHC RDW [place] # (Auto) Seg Neutrophils % Seg Neuts % (Manual) Lymphocytes % (Manual) Seg Neutrophils # Seg Neutrophils # Man ABG pH ABG pO2 ABG HCO3 ABG O2 Saturation ABG Base Excess Sodium Potassium Chloride Carbon Dioxide BUN Creatinine Glucose POC Glucose 460 H 237 H Lactic Acid Calcium Phosphorus 1.20 L D Magnesium 4.10 H AST ALT Ammonia Troponin T Total Protein Triglycerides LDL Cholesterol Direct HDL Cholesterol 07/26/22 07/26/22 07/26/22 03:03 03:07 04:11 WBC RBC Hgb Hct MCHC RDW [place] # (Auto) Seg Neutrophils % Seg Neuts % (Manual) Lymphocytes % (Manual) Seg Neutrophils # Seg Neutrophils # Man ABG pH ABG pO2 ABG HCO3 ABG O2 Saturation ABG Base Excess Sodium Potassium Chloride Carbon Dioxide BUN Creatinine Glucose POC Glucose 433 H 370 H 338 H Lactic Acid Calcium Phosphorus Magnesium AST ALT Ammonia Troponin T Total Protein Triglycerides LDL Cholesterol Direct HDL Cholesterol 07/26/22 07/26/22 07/26/22 04:35 04:35 04:40 WBC RBC Hgb Hct MCHC RDW [place] # (Auto) Seg Neutrophils % Seg Neuts % (Manual) Lymphocytes % (Manual) Seg Neutrophils # Seg Neutrophils # Man ABG pH 7.301 L ABG pO2 178.2 H ABG HCO3 11.0 L ABG O2 Saturation 99.1 H ABG Base Excess -13.3 L Sodium 162 H* Potassium 3.0 L Chloride 124.8 H Carbon Dioxide 18 L BUN 69 H Creatinine 3.9 H Glucose 385 H POC Glucose Lactic Acid 8.20 H* Calcium 7.8 L Phosphorus Magnesium AST ALT Ammonia Troponin T Total Protein Triglycerides LDL Cholesterol Direct HDL Cholesterol 07/26/22 07/26/22 05:01 06:14 WBC RBC Hgb Hct MCHC RDW [place] # (Auto) Seg Neutrophils % Seg Neuts % (Manual) Lymphocytes % (Manual) Seg Neutrophils # Seg Neutrophils # Man ABG pH ABG pO2 ABG HCO3 ABG O2 Saturation ABG Base Excess Sodium Potassium Chloride Carbon Dioxide BUN Creatinine Glucose POC Glucose 347 H 300 H Lactic Acid Calcium Phosphorus Magnesium AST ALT Ammonia Troponin T Total Protein Triglycerides LDL Cholesterol Direct HDL Cholesterol Assessment and Plan 77 yo male with htn, dm, cadx, who presents with respiratory distress and s/p cardiac arrest (asystole; rosc ~13 mins). Currently noted with severe encephalopathy. 1. Anoxic / Hypoxic Brain Injury / Encephalopathy - concern is raised based on clinical hx and exam; repeat ct head wo contrast or preferably mr brain wo con trast (when clinically stable). 2. Status Epilepticus (subclinical) - eeg ordered. 3. Acute Metabolic Encephalopaty - in the setting of kidney injury / respiratory distress. 4. Hypertension - aim for permissive htn for now. 5. DM - aim for euglycemia. Sarath Ramesh MD Neurology [id number]
[2022-07-26] MEDS ORDERED: CEFEPIME/NS 1 GM/100 ML 1 GM/100 ML BAG IV SCH (11:00)
[2022-07-26] MEDS ORDERED: VANCOMYCIN 750 MG in SODIUM CHLORIDE 0.9% 250ML 250 ML IV SCH (11:30)
--- NOTE | 2022-07-26 11:51 | Consultation ---
History of Present Illness Consult date: 07/26/22 Requesting physician: JONI MORAN Reason for consult: other (cardiac arrest) History of present illness: 77 y/o male, half-way resident admitted with cardiac arrest after being brought in with altered mental status and finding the patient to be hyperglycemic in DKA. Currently intubated, not on sedation. Maxed on Levophed and Vaso. In renal failure. Per report, no cough no gag. Not breathing over the vent. Past History Past Medical History: acute [place], diabetes, hypertension Past Surgical History: cholecystectomy Social history: no significant social history Family history: diabetes, hypertension Medications and Allergies Allergies Allergy/AdvReac Type Severity Reaction Status Date / Time aspirin Allergy Swelling Verified 02/15/20 13:24 iron Allergy Itching Verified 02/15/20 13:24 Home Medications Medication Instructions Recorded Confirmed Last Taken Type metFORMIN [Glucophage] 1,000 mg PO BID 02/11/14 02/15/20 02/14/20 History Acetaminophen [Acetaminophen ER 650 mg PO Q8HR PRN #20 tablet.er 10/21/19 02/15/20 Unknown Rx TAB] ALBUTEROL NEB's [Proventil 0.083% 2.5 mg IH Q3HRT PRN #30 nebu 03/09/20 Unknown Rx NEBS] Aspirin EC [Halfprin EC] 81 mg PO QDAY #30 tablet. 03/09/20 Unknown Rx AtorvaSTATin [Lipitor] 40 mg FEEDTUBE QHS #30 tablet 03/09/20 Unknown Rx Famotidine [Pepcid] 20 mg FEEDTUBE DAILY #30 tablet 03/09/20 Unknown Rx Insulin Glargine [Lantus VIAL] 50 units SUB-Q QAMDIAB #1 vial 03/09/20 Unknown Rx Insulin Glargine [Lantus VIAL] 50 units SUB-Q QHS #1 vial 03/09/20 Unknown Rx Insulin Regular, Human [HumuLIN R] 0 units SUB-Q Q6HR #1 vial 03/09/20 Unknown Rx Metoclopramide [Reglan ORAL LIQ] 5 mg FEEDTUBE Q6H PRN 30 Days 03/09/20 Unknown Rx Metoprolol [Lopressor TAB] 100 mg FEEDTUBE BID #60 tablet 03/09/20 Unknown Rx amLODIPine 10 mg FEEDTUBE QDAY #30 tablet 03/09/20 Unknown Rx traMADoL [Ultram 50 MG tab] 50 mg FEEDTUBE Q6HR PRN #10 tablet 03/09/20 Unknown Rx Active Meds: Active Medications Acetaminophen (Acetaminophen 325 Mg Tab) 650 mg PO Q4H PRN PRN Reason: Pain MILD(1-3)/Fever >100.5/LANTIGUA Acetaminophen (Acetaminophen 650 Mg Rect Supp) 650 mg NE Q4H PRN PRN Reason: Pain, Mild (1-3) Albuterol (Albuterol 2.5 Mg/3 Ml Nebu) 2.5 mg IH Q3HRT PRN PRN Reason: Shortness Of Breath Atorvastatin Calcium (Atorvastatin 40 Mg Tab) 40 mg PO QHS LIZZIE Dextrose (Dextrose 50% In Water (25gm) 50 Ml Syringe) 0 ml IV Q30MIN PRN; Protocol PRN Reason: Hypoglycemia Famotidine (Famotidine 20 Mg/2 Ml Inj) 20 mg IV QAM LIZZIE Last Admin: 07/26/22 09:37 Dose: 20 mg Hydrocortisone Sodium Succinate (Hydrocortisone Sod Succ 100 Mg/2 Ml Vial) 100 mg IV Q8HR LIZZIE Insulin Human Regular 100 (units/ Sodium Chloride) 100 mls @ 6 mls/hr IV TITR LIZZIE; Protocol Last Titration: 07/26/22 11:04 Dose: 18 units/hr, 18 mls/hr NORepinephrine/NS 8 MG-250 ML (Norepinephrine/Ns 8 Mg-250 Ml (Double Conc)) 8 mg in 250 mls @ 3.75 mls/hr IV TITRATE LIZZIE; Protocol Last Admin: 07/26/22 11:05 Dose: 30 mcg/min, 56.25 mls/hr Potassium Chloride/Dextrose/Sod Cl (D5w/0.45% Nacl/Kcl 20 Meq) 20 meq in 1,000 mls @ 125 mls/hr IV DIRECT LIZZIE Last Admin: 07/26/22 09:39 Dose: 125 mls/hr Amiodarone HCl 900 mg/ (Dextrose) 500 mls @ 33.333 mls/hr IV DIRECT LIZZIE; Protocol Last Admin: 07/26/22 04:45 Dose: 1 mg/min, 33.333 mls/hr Vasopressin 20 unit/ Sodium (Chloride) 101 mls @ 9.09 mls/hr IV TITR LIZZIE; Prot ocol Last Admin: 07/26/22 05:00 Dose: 0.03 units/min, 9.09 mls/hr Potassium Phosphate 15 mmol/ (Sodium Chloride) 255 mls @ 125 mls/hr IV ONCE@0930 [facility] Stop: 07/26/22 12:30 Last Admin: 07/26/22 09:38 Dose: 125 mls/hr Vancomycin HCl 750 mg/ Sodium (Chloride) 265 mls @ 166.667 mls/hr IV ONCE@1130 LIZZIE Stop: 07/26/22 15:30 Last Admin: 07/26/22 10:56 Dose: 166.667 mls/hr Cefepime HCl (Cefepime/Ns 1 Gm/100 Ml) 1 gm in 100 mls @ 200 mls/hr IV Q24H [facility]; Protocol Last Admin: 07/26/22 10:58 Dose: 200 mls/hr Nitroglycerin (Nitroglycerin 0.4 Mg Tab Subl) 0.4 mg SL Q5M PRN PRN Reason: Chest Pain Ondansetron HCl (Ondansetron 4 Mg/2 Ml Inj) 4 mg IV Q8H PRN PRN Reason: Nausea And Vomiting Sodium Chloride (Sodium Chloride 0.9% 10 Ml Flush Syringe) 10 ml IV BID LIZZIE Sodium Chloride (Sodium Chloride 0.9% 10 Ml Flush Syringe) 10 ml IV PRN PRN PRN Reason: LINE FLUSH Review of Systems ROS unobtainable: due to endotracheal tube, due to mental status Physical Examination Vital signs: Vital Signs Temp Pulse Resp BP Pulse Ox 98 F 130 H 16 110/70 96 07/25/22 19:20 07/25/22 19:20 07/25/22 19:20 07/25/22 19:20 07/25/22 19:20 Results - Laboratory Findings CBC and BMP: 07/26/22 00:39 07/26/22 04:35 ABG ABG pH 7.301 pH Units (7.350-7.450) L 07/26/22 04:40 ABG pCO2 22.9 mm Hg 07/26/22 04:40 ABG pO2 178.2 mm Hg (80.0-90.0) H 07/26/22 04:40 ABG O2 Saturation 99.1 % (95.0-99.0) H 07/26/22 04:40 Abnormal lab findings: Abnormal Labs 07/25/22 07/25/2207/25/22 19:37 19:37 19:37 WBC 18.8 H RBC 6.31 H Hgb 18.8 H Hct 57.3 H MCHC RDW [place] # (Auto) 1.4 H Seg Neutrophils % 70.7 H Seg Neuts % (Manual) Lymphocytes % (Manual) Seg Neutrophils # 13.3 H Seg Neutrophils # Man ABG pH ABG pO2 ABG HCO3 ABG O2 Saturation ABG Base Excess Sodium 149 H Potassium Chloride 110.3 H Carbon Dioxide 18 L BUN 73 H Creatinine 3.3 H Glucose 761 H* POC Glucose Lactic Acid Calcium 10.6 H Phosphorus Magnesium 3.10 H AST 63 H ALT 64 H Ammonia Troponin T 0.072 H Total Protein 9.0 H Triglycerides 362 H LDL Cholesterol Direct 44 L HDL Cholesterol 34 L 07/25/22 07/25/22 07/25/22 19:37 21:08 22:10 WBC RBC Hgb Hct MCHC RDW [place] # (Auto) Seg Neutrophils % Seg Neuts % (Manual) Lymphocytes % (Manual) Seg Neutrophils # Seg Neutrophils # Man ABG pH ABG pO2 ABG HCO3 ABG O2 Saturation ABG Base Excess Sodium 155 H Potassium Chloride 113.1 H Carbon Dioxide 14 L BUN 74 H Creatinine 3.5 H Glucose 734 H* POC Glucose Lactic Acid 12.70 H* Calcium Phosphorus Magnesium AST ALT Ammonia 64.0 H Troponin T Total Protein Triglycerides LDL Cholesterol Direct HDL Cholesterol 07/25/22 07/25/22 07/26/22 22:20 23:29 00:13 WBC RBC Hgb Hct MCHC RDW [place] # (Auto) Seg Neutrophils % Seg Neuts % (Manual) Lymphocytes % (Manual) Seg Neutrophils # Seg Neutrophils # Man ABG pH 7.342 L ABG pO2 318.2 H ABG HCO3 14.4 L ABG O2 Saturation 99.5 H ABG Base Excess -9.4 L Sodium 157 H Potassium 3.1 L D Chloride 114.0 H Carbon Dioxide 21 L D BUN 72 H Creatinine 3.7 H Glucose 615 H* POC Glucose > 600 H Lactic Acid Calcium Phosphorus Magnesium AST ALT Ammonia Troponin T Total Protein Triglycerides LDL Cholesterol Direct HDL Cholesterol 07/26/22 07/26/22 07/26/22 00:13 00:38 00:39 WBC 21.4 H RBC 5.88 H Hgb 17.2 H Hct 55.0 H MCHC 31 L RDW 16.0 H [place] # (Auto) Seg Neutrophils % Seg Neuts % (Manual) 77.0 H Lymphocytes % (Manual) 13.0 L Seg Neutrophils # Seg Neutrophils # Man 16.5 H ABG pH ABG pO2 ABG HCO3 ABG O2 Saturation ABG Base Excess Sodium Potassium Chloride Carbon Dioxide BUN Creatinine Glucose POC Glucose 517 H Lactic Acid 9.10 H* Calcium Phosphorus Magnesium AST ALT Ammonia Troponin T Total Protein Triglycerides LDL Cholesterol Direct HDL Cholesterol 07/26/22 07/26/22 07/26/22 00:39 01:32 02:28 WBC RBC Hgb Hct MCHC RDW [place] # (Auto) Seg Neutrophils % Seg Neuts % (Manual) Lymphocytes % (Manual) Seg Neutrophils # Seg Neutrophils # Man ABG pH ABG pO2 ABG HCO3 ABG O2 Saturation ABG Base Excess Sodium Potassium Chloride Carbon Dioxide BUN Creatinine Glucose POC Glucose 460 H 237 H Lactic Acid Calcium Phosphorus 1.20 L D Magnesium 4.10 H AST ALT Ammonia Troponin T Total Protein Triglycerides LDL Cholesterol Direct HDL Cholesterol 07/26/22 07/26/22 07/26/22 03:03 03:07 04:11 WBC RBC Hgb Hct MCHC RDW [place] # (Auto) Seg Neutrophils % Seg Neuts % (Manual) Lymphocytes % (Manual) Seg Neutrophils # Seg Neutrophils # Man ABG pH ABG pO2 ABG HCO3 ABG O2 Saturation ABG Base Excess Sodium Potassium Chloride Carbon Dioxide BUN Creatinine Glucose POC Glucose 433 H 370 H 338 H Lactic Acid Calcium Phosphorus Magnesium AST ALT Ammonia Troponin T Total Protein Triglycerides LDL Cholesterol Direct HDL Cholesterol 07/26/22 07/26/22 07/26/22 04:35 04:35 04:40 WBC RBC Hgb Hct MCHC RDW [place] # (Auto) Seg Neutrophils % Seg Neuts % (Manual) Lymphocytes % (Manual) Seg Neutrophils # Seg Neutrophils # Man ABG pH 7.301 L ABG pO2 178.2 H ABG HCO3 11.0 L ABG O2 Saturation 99.1 H ABG Base Excess -13.3 L Sodium 162 H* Potassium 3.0 L Chloride 124.8 H Carbon Dioxide 18 L BUN 69 H Creatinine 3.9 H Glucose 385 H POC Glucose Lactic Acid 8.20 H* Calcium 7.8 L Phosphorus Magnesium AST ALT Ammonia Troponin T Total Protein Triglycerides LDL Cholesterol Direct HDL Cholesterol 07/26/22 07/26/22 07/26/22 05:01 06:14 06:52 WBC RBC Hgb Hct MCHC RDW [place] # (Auto) Seg Neutrophils % Seg Neuts % (Manual) Lymphocytes % (Manual) Seg Neutrophils # Seg Neutrophils # Man ABG pH ABG pO2 ABG HCO3 ABG O2 Saturation ABG Base Excess Sodium Potassium Chloride Carbon Dioxide BUN Creatinine Glucose POC Glucose 347 H 300 H 278 H Lactic Acid Calcium Phosphorus Magnesium AST ALT Ammonia Troponin T Total Protein Triglycerides LDL Cholesterol Direct HDL Cholesterol 07/26/22 07/26/22 07/26/22 07:59 08:58 10:04 WBC RBC Hgb Hct MCHC RDW [place] # (Auto) Seg Neutrophils % Seg Neuts % (Manual) Lymphocytes % (Manual) Seg Neutrophils # Seg Neutrophils # Man ABG pH ABG pO2 ABG HCO3 ABG O2 Saturation ABG Base Excess Sodium Potassium Chloride Carbon Dioxide BUN Creatinine Glucose POC Glucose 269 H 277 H 244 H Lactic Acid Calcium Phosphorus Magnesium AST ALT Ammonia Troponin T Total Protein Triglycerides LDL Cholesterol Direct HDL Cholesterol - Diagnostic Findings Chest x-ray: image reviewed Assessment and Plan 77 y/o male with cardiac arrest, intubated, not sedated with multisystem organ failure 1. IVF resusciation with LR 2. Insulin drip and continue NPO state 3. Attempt to wean pressors for MAPs greater than 65 4. Monitor urine output 5. Broaden abx therapy given current clinical state 6. Follow up echo report 7. Agree with stress dose steroids 8. No sedation 9. EEG pending Overall prognosis is guarded to poor, especially given current clinical exam CCT 31 minutes.
[2022-07-26] MEDS ORDERED: LACTATED RINGERS 1,000 ML IV ONE ×4 (14:45→19:16)
[2022-07-26] MEDS: HYDROCORTISONE SOD SUCC 100 MG/2 ML VIAL IV SCH ×2 (15:03→20:59)
--- NOTE | 2022-07-26 15:08 | Consultation ---
History of Present Illness Consult date: 07/26/22 Requesting physician: KELLY TERRY Consult reason: cardiac arrest History of present illness: Patient is 77-year-old male with a past medical history of hypertension, paroxysmal A. 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 History taken from chart and patient's who is at bedside due to patient being intubated. Patient is fro m a skilled nursing and per when she went to visit the patient yesterday patient was lethargic and not responding to her patient transported to the ED and found to be in DKA. Patient was intubated due to respiratory failure and shortly following intubation patient had cardiac arrest with unknown rhythm. In the ED patient was found to have leukocytosis, hypernatremia, acute renal failure. Patient previously seen by our practice in 2019 however patient did not follow-up as an outpatient. Cardiology is consulted for cardiac arrest Past History Past Medical History: acute HI, diabetes, hypertension Past Surgical History: cholecystectomy Social history: no significant social history Family history: diabetes, hypertension Medications and Allergies Allergies Allergy/AdvReac Type Severity Reaction Status Date / Time aspirin Allergy Swelling Verified 02/15/20 13:24 iron Allergy Itching Verified 02/15/20 13:24 Home Medications Medication Instructions Recorded Confirmed Last Taken Type metFORMIN [Glucophage] 1,000 mg PO BID 02/11/14 02/15/20 02/14/20 History Acetaminophen [Acetaminophen ER 650 mg PO Q8HR PRN #20 tablet.er 10/21/19 02/15/20 Unknown Rx TAB] ALBUTEROL NEB's [Proventil 0.083% 2.5 mg IH Q3HRT PRN #30 nebu 03/09/20 Unknown Rx NEBS] Aspirin EC [Halfprin EC] 81 mg PO QDAY #30 tablet. 03/09/20 Unknown Rx AtorvaSTATin [Lipitor] 40 mg FEEDTUBE QHS #30 tablet 03/09/20 Unknown Rx Famotidine [Pepcid] 20 mg FEEDTUBE DAILY #30 tablet 03/09/20 Unknown Rx Insulin Glargine [Lantus VIAL] 50 units SUB-Q QAMDIAB #1 vial 03/09/20 Unknown Rx Insulin Glargine [Lantus VIAL] 50 units SUB-Q QHS #1 vial 03/09/20 Unknown Rx Insulin Regular, Human [HumuLIN R] 0 units SUB-Q Q6HR #1 vial 03/09/20 Unknown Rx Metoclopramide [Reglan ORAL LIQ] 5 mg FEEDTUBE Q6H PRN 30 Days 03/09/20 Unknown Rx Metoprolol [Lopressor TAB] 100 mg FEEDTUBE BID #60 tablet 03/09/20 Unknown Rx amLODIPine 10 mg FEEDTUBE QDAY #30 tablet 03/09/20 Unknown Rx traMADoL [Ultram 50 MG tab] 50 mg FEEDTUBE Q6HR PRN #10 tablet 03/09/20 Unknown Rx Active Meds: Active Medications Acetaminophen (Acetaminophen 325 Mg Tab) 650 mg PO Q4H PRN PRN Reason: Pain MILD(1-3)/Fever >100.5/LANTIGUA Acetaminophen (Acetaminophen 650 Mg Rect Supp) 650 mg [place] Q4H PRN PRN Reason: Pain, Mild (1-3) Albuterol (Albuterol 2.5 Mg/3 Ml Nebu) 2.5 mg IH Q3HRT PRN PRN Reason: Shortness Of Breath Atorvastatin Calcium (Atorvastatin 40 Mg Tab) 40 mg PO QHS LIZZIE Dextrose (Dextrose 50% In Water (25gm) 50 Ml Syringe) 0 ml IV Q30MIN PRN; Protocol PRN Reason: Hypoglycemia Famotidine (Famotidine 20 Mg/2 Ml Inj) 20 mg IV QAM LIZZIE Last Admin: 07/26/22 09:37 Dose: 20 mg Hydrocortisone Sodium Succinate (Hydrocortisone Sod Succ 100 Mg/2 Ml Vial) 100 mg IV Q8HR LIZZIE Last Admin: 07/26/22 15:03 Dose: 100 mg Insulin Human Regular 100 (units/ Sodium Chloride) 100 mls @ 6 mls/hr IV TITR LIZZIE; Protocol Last Admin: 07/26/22 15:03 Dose: 14 units/hr, 14 mls/hr NORepinephrine/NS 8 MG-250 ML (Norepinephrine/Ns 8 Mg-250 Ml (Double Conc)) 8 mg in 250 mls @ 3.75 mls/hr IV TITRATE LIZZIE; Protocol Last Admin: 07/26/22 11:05 Dose: 30 mcg/min, 56.25 mls/hr Potassium Chloride/Dextrose/Sod Cl (D5w/0.45% Nacl/Kcl 20 Meq) 20 meq in 1,000 mls @ 125 mls/hr IV DIRECT LIZZIE Last Admin: 07/26/22 09:39 Dose: 125 mls/hr Amiodarone HCl 900 mg/ (Dextrose) 500 mls @ 33.333 mls/hr IV DIRECT LIZZIE; Protocol Last Infusion: 07/26/22 11:00 Dose: 0.5 mg/min, 16.667 mls/hr Vasopressin 20 unit/ Sodium (Chloride) 101 mls @ 9.09 mls/hr IV TITR LIZZIE; Protocol Last Admin: 07/26/22 14:29 Dose: 0.03 units/min, 9.09 mls/hr Vancomycin HCl 750 mg/ Sodium (Chloride) 265 mls @ 166.667 mls/hr IV ONCE@1130 LIZZIE Stop: 07/26/22 15:30 Last Admin: 07/26/22 10:56 Dose: 166.667 mls/hr Cefepime HCl (Cefepime/Ns 1 Gm/100 Ml) 1 gm in 100 mls @ 200 mls/hr IV Q24H LIZZIE; Protocol Last Admin: 07/26/22 10:58 Dose: 200 mls/hr Lactated Ringer's (Lactated Ringers) 1,000 mls @ 999 mls/hr IV BOLUS ONE Stop: 07/26/22 15:45 Last Admin: 07/26/22 15:04 Dose: 999 mls/hr Lactated Ringer's (Lactated Ringers) 1,000 mls @ 999 mls/hr IV BOLUS ONE Stop: 07/26/22 16:45 Nitroglycerin (Nitroglycerin 0.4 Mg Tab Subl) 0.4 mg SL Q5M PRN PRN Reason: Chest Pain Ondansetron HCl (Ondansetron 4 Mg/2 Ml Inj) 4 mg IV Q8H PRN PRN Reason: Nausea And Vomiting Sodium Chloride (Sodium Chloride 0.9% 10 Ml Flush Syringe) 10 ml IV BID LIZZIE Sodium Chloride (Sodium Chloride 0.9% 10 Ml Flush Syringe) 10 ml IV PRN PRN PRN Reason: LINE FLUSH Review of Systems ROS unobtainable: due to endotracheal tube, due to mental status Physical Examination Vital Signs Temp Pulse Resp BP Pulse Ox 98 F 130 H 16 110/70 96 07/25/22 19:20 07/25/22 19:20 07/25/22 19:20 07/25/22 19:20 07/25/22 19:20 General appearance: other (Intubated) HEENT: Positive: Mucus Membranes Dry Neck: Positive: trachea midline Cardiac: Positive: irregularly irregular Lungs: Positive: Ventilated Respirations Neuro: Positive: Other (Unable to assess) Abdomen: Positive: Soft Skin: Positive: Cool. Negative: Rash, Suspicious Lesions, Ulceration Extremities: Present: upper extr. pulses, Cool Results 07/26/22 00:39 07/26/22 04:35 Cardiac Enzymes 07/25/22 Range/Units 19:37 AST 63 H (5-40) units/L CK-MB (CK-2) < 1.0 (0.0-4.0) ng/mL Lipids 07/25/22 Range/Units 19:37 Triglycerides 362 H (2-149) mg/dL Cholesterol 126 (50-199) mg/dL HDL Cholesterol 34 L (40-59) mg/dL Cholesterol/HDL Ratio 3.70 % CBC 07/25/22 07/26/22 Range/Units 19:37 00:39 WBC 18.8 H 21.4 H (4.5-11.0) K/mm3 RBC 6.31 H 5.88 H (3.65-5.03) M/mm3 Hgb 18.8 H 17.2 H (11.8-15.2) gm/dl Hct 57.3 H 55.0 H (35.5-45.6) % Plt Count 216 196 (140-440) K/mm3 Lymph # (Auto) 4.1 (1.2-5.4) K/mm3 Schleicher # (Auto) 1.4 H (0.0-0.8) K/mm3 Eos # (Auto) 0.0 (0.0-0.4) K/mm3 Baso # (Auto) 0.1 (0.0-0.1) K/mm3 Comprehensive Metabolic Panel 07/25/22 07/25/22 07/26/22 Range/Units 19:37 22:10 00:13 Sodium 149 H 155 H 157 H (137-145) mmol/L Potassium 3.9 4.7 D 3.1 L D (3.6-5.0) mmol/L Chloride 110.3 H 113.1 H 114.0 H (98-107) mmol/L Carbon Dioxide 18 L 14 L 21 L D (22-30) mmol/L BUN 73 H 74 H 72 H (9-20) mg/dL Creatinine 3.3 H 3.5 H 3.7 H (0.8-1.3) mg/dL Glucose 761 H* 734 H* 615 H* (75-100) mg/dL Calcium 10.6 H 9.8 8.9 (8.4-10.2) mg/dL AST 63 H (5-40) units/L ALT 64 H (7-56) units/L Alkaline Phosphatase 128 (35-129) units/L Total Protein 9.0 H (6.3-8.2) g/dL Albumin 4.8 (3.9-5) g/dL 07/26/22 Range/Units 04:35 Sodium 162 H* (137-145) mmol/L Potassium 3.0 L (3.6-5.0) mmol/L Chloride 124.8 H (98-107) mmol/L Carbon Dioxide 18 L (22-30) mmol/L BUN 69 H (9-20) mg/dL Creatinine 3.9 H (0.8-1.3) mg/dL Glucose 385 H (75-100) mg/dL Calcium 7.8 L (8.4-10.2) mg/dL AST (5-40) units/L ALT (7-56) units/L Alkaline Phosphatase (35-129) units/L Total Protein (6.3-8.2) g/dL Albumin (3.9-5) g/dL - Imaging and Cardiology Echo: report reviewed EKG: report reviewed, image reviewed EKG interpretations - Telemetry EKG Rhythm: Atrial Fibrillation - EKG Supraventricular dysrhythmia: atrial fibrillation Assessment and Plan Patient is 77-year-old male with a past medical history of hypertension, paroxysmal A. 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 Status post cardiac arrest Acute respiratory failure-pulmonology following AMS-neurology following DKA Acute renal failure-nephrology following Sepsis PAF-on anticoagulation Hypertension Diabetes History of CVA 2019 Echo 07/26/2022-technically difficult study due to patient on ventilator, poor endocardial definition. Very grossly in subcostal views probably normal left ventricular systolic function EF 50 to 60% no pericardial effusion. Consider repeating echo when patient is more stable and off ventilator Plan: EKG showed A. fib A. fib 118 with no acute ischemic changes. Troponin noted to be minimally elevated Suspect troponin elevation in setting of sepsis, acute renal failure, and DKA S/p cardiac arrest with unknown rhythm in setting of sepsis, acute renal failure, DKA Patient A. fib with RVR Agree with amiodarone drip Recommend heparin drip for anticoagulation if okay with neurology Patient currently requiring multiple pressors. Wean pressors as tolerated No beta-blockers due to patient requiring pressor Per documentation patient absent gag and reflexes Guarded prognosis Patient seen in conjunction with Dr. Skinner who agrees this plan of care 30 minutes of critical care time spent in care and coordination of patient - Patient Problems (1) History of CVA (cerebrovascular accident) Current Visit: Yes Status: Acute (2) Acute respiratory failure Current Visit: Yes Status: Acute (3) Cardiac arrest Current Visit: Yes Status: Acute (4) DKA (diabetic ketoacidosis) Current Visit: Yes Status: Acute (5) Leukocytosis Current Visit: Yes Status: Acute (6) Atrial fibrillation with RVR Current Visit: No Status: Acute (7) HLD (hyperlipidemia) Current Visit: No Status: Acute (8) HTN (hypertension) Current Visit: No Status: Acute
--- NOTE | 2022-07-26 15:14 | Consultation ---
History of Present Illness - Reason for Consult Consult date: 07/26/22 acute renal failure - History of Present Illness This is a 77 year old male who is admitted for AMS. On evaluation in E.R patient was found to be in DKA and started on insulin drip and was hypoxic. Pertinent labs revealed a serum creatinine of 3.5 and elevated sodium level of 155 on admission among other electrolyte abnormalities. Patient has history of Hypertension, DM, and DE. Patient is currently intubated. We are being consulted for management of this patient's Severe Renal failure. Past History Past Medical History: acute DE, diabetes, hypertension Past Surgical History: cholecystectomy Social history: no significant social history Family history: diabetes, hypertension Medications and Allergies Allergies Allergy/AdvReac Type Severity Reaction Status Date / Time aspirin Allergy Swelling Verified 02/15/20 13:24 iron Allergy Itching Verified 02/15/20 13:24 Home Medications Medication Instructions Recorded Confirmed Last Taken Type metFORMIN [Glucophage] 1,000 mg PO BID 02/11/14 02/15/20 02/14/20 History Acetaminophen [Acetaminophen ER 650 mg PO Q8HR PRN #20 tablet.er 10/21/19 02/15/20 Unknown Rx TAB] ALBUTEROL NEB's [Proventil 0.083% 2.5 mg IH Q3HRT PRN #30 nebu 03/09/20 Unknown Rx NEBS] Aspirin EC [Halfprin EC] 81 mg PO QDAY #30 tablet.dr 03/09/20 Unknown Rx AtorvaSTATin [Lipitor] 40 mg FEEDTUBE QHS #30 tablet 03/09/20 Unknown Rx Famotidine [Pepcid] 20 mg FEEDTUBE DAILY #30 tablet 03/09/20 Unknown Rx Insulin Glargine [Lantus VIAL] 50 units SUB-Q QAMDIAB #1 vial 03/09/20 Unknown Rx Insulin Glargine [Lantus VIAL] 50 units SUB-Q QHS #1 vial 03/09/20 Unknown Rx Insulin Regular, Human [HumuLIN R] 0 units SUB-Q Q6HR #1 vial 03/09/20 Unknown Rx Metoclopramide [Reglan ORAL LIQ] 5 mg FEEDTUBE Q6H PRN 30 Days 03/09/20 Unknown Rx Metoprolol [Lopressor TAB] 100 mg FEEDTUBE BID #60 tablet 03/09/20 Unknown Rx amLODIPine 10 mg FEEDTUBE QDAY #30 tablet 03/09/20 Unknown Rx traMADoL [Ultram 50 MG tab] 50 mg FEEDTUBE Q6HR PRN #10 tablet 03/09/20 Unknown Rx Active Meds: Active Medications Acetaminophen (Acetaminophen 325 Mg Tab) 650 mg PO Q4H PRN PRN Reason: Pain MILD(1-3)/Fever >100.5/LANTIGUA Acetaminophen (Acetaminophen 650 Mg Rect Supp) 650 mg [place] Q4H PRN PRN Reason: Pain, Mild (1-3) Albuterol (Albuterol 2.5 Mg/3 Ml Nebu) 2.5 mg IH Q3HRT PRN PRN Reason: Shortness Of Breath Atorvastatin Calcium (Atorvastatin 40 Mg Tab) 40 mg PO QHS LIZZIE Dextrose (Dextrose 50% In Water (25gm) 50 Ml Syringe) 0 ml IV Q30MIN PRN; Protocol PRN Reason: Hypoglycemia Famotidine (Famotidine 20 Mg/2 Ml Inj) 20 mg IV QAM LIZZIE Last Admin: 07/26/22 09:37 Dose: 20 mg Hydrocortisone Sodium Succinate (Hydrocortisone Sod Succ 100 Mg/2 Ml Vial) 100 mg IV Q8HR LIZZIE Last Admin: 07/26/22 15:03 Dose: 100 mg Insulin Human Regular 100 (units/ Sodium Chloride) 100 mls @ 6 mls/hr IV TITR LIZZIE; Protocol Last Admin: 07/26/22 15:03 Dose: 14 units/hr, 14 mls/hr NORepinephrine/NS 8 MG-250 ML (Norepinephrine/Ns 8 Mg-250 Ml (Double Conc)) 8 mg in 250 mls @ 3.75 mls/hr IV TITRATE LIZZIE; Protocol Last Admin: 07/26/22 11:05 Dose: 30 mcg/min, 56.25 mls/hr Potassium Chloride/Dextrose/Sod Cl (D5w/0.45% Nacl/Kcl 20 Meq) 20 meq in 1,000 mls @ 125 mls/hr IV DIRECT LIZZIE Last Admin: 07/26/22 09:39 Dose: 125 mls/hr Amiodarone HCl 900 mg/ (Dextrose) 500 mls @ 33.333 mls/hr IV DIRECT LIZZIE; Protocol Last Infusion: 07/26/22 11:00 Dose: 0.5 mg/min, 16.667 mls/hr Vasopressin 20 unit/ Sodium (Chloride) 101 mls @ 9.09 mls/hr IV TITR LIZZIE; Protocol Last Admin: 07/26/22 14:29 Dose: 0.03 units/min, 9.09 mls/hr Vancomycin HCl 750 mg/ Sodium (Chloride) 265 mls @ 166.667 mls/hr IV ONCE@1130 LIZZIE Stop: 07/26/22 15:30 Last Admin: 07/26/22 10:56 Dose: 166.667 mls/hr Cefepime HCl (Cefepime/Ns 1 Gm/100 Ml) 1 gm in 100 mls @ 200 mls/hr IV Q24H LIZZIE; Protocol Last Admin: 07/26/22 10:58 Dose: 200 mls/hr Lactated Ringer's (Lactated Ringers) 1,000 mls @ 999 mls/hr IV BOLUS ONE Stop: 07/26/22 15:45 Last Admin: 07/26/22 15:04 Dose: 999 mls/hr Lactated Ringer's (Lactated Ringers) 1,000 mls @ 999 mls/hr IV BOLUS ONE Stop: 07/26/22 16:45 Nitroglycerin (Nitroglycerin 0.4 Mg Tab Subl) 0.4 mg SL Q5M PRN PRN Reason: Chest Pain Ondansetron HCl (Ondansetron 4 Mg/2 Ml Inj) 4 mg IV Q8H PRN PRN Reason: Nausea And Vomiting Sodium Chloride (Sodium Chloride 0.9% 10 Ml Flush Syringe) 10 ml IV BID LIZZIE Sodium Chloride (Sodium Chloride 0.9% 10 Ml Flush Syringe) 10 ml IV PRN PRN PRN Reason: LINE FLUSH Review of Systems ROS unobtainable: due to endotracheal tube, due to mental status Exam - Vital Signs Vital signs: Vital Signs Temp Pulse Resp BP Pulse Ox 98 F 130 H 16 110/70 96 07/25/22 19:20 07/25/22 19:20 07/25/22 19:20 07/25/22 19:20 07/25/22 19:20 - General Appearance General appearance: intubated, other (Intubated and sedated) Respiratory: Decreased Breath Sounds, Other (Intubated) Heart: S1S2 Gastrointestinal: Present: hypoactive bowel sounds Integumentary: warm and dry Neurologic: other (Sedated) Musculoskeletal: Present: other (mild edema) Results - Lab Results 07/26/22 00:39 07/26/22 04:35 Most recent lab results ABG pH 7.301 pH Units (7.350-7.450) L 07/26/22 04:40 ABG pCO2 22.9 mm Hg 07/26/22 04:40 ABG pO2 178.2 mm Hg (80.0-90.0) H 07/26/22 04:40 ABG HCO3 11.0 mmol/L (20.0-26.0) L 07/26/22 04:40 ABG O2 Saturation 99.1 % (95.0-99.0) H 07/26/22 04:40 Calcium 7.8 mg/dL (8.4-10.2) L 07/26/22 04:35 Phosphorus 1.20 mg/dL (2.5-4.5) L D 07/26/22 00:39 Magnesium 4.10 mg/dL (1.7-2.3) H 07/26/22 00:39 Assessment and Plan Assessment: Severe Renal Failure secondary to IATN on CKD DKA Diabetes Mellitus History of Hypertension but now Hypotensive Hypokalemia Hypernatremia Acidosis Plan: Renal labs reviewed. Serum creatinine 3.9 today, yesterdays was 3.5 Serum creatinine in February 2020 was 1.3 Obtain renal ultrasound to rule out obstruction Obtain urine lytes, protein and eosinophils Hypernatremia- On D5W+1/2NS with 20 meq KCl@ 125 ml/hr DKA- on insulin drip Hypotension-On Norepi drip Obtain daily weights Monitor I/O's daily Avoid nephrotoxic agents No acute indication for MANAGEMENT INTERN at this time Will monitor renal function closely Plan of care reviewed by Dr. Damico
--- NOTE | 2022-07-26 16:35 | Event Note ---
Date: 07/26/22 This is a 77-year-old male who is custodial patient at [facility] with DM, paroxysmal atrial fibrillation, HTN, CVA (2020) presents the emergency department on 07/26 via EMS with hypoglycemia and unresponsiveness. In the emergency department patient was deciding 7% on room air and was placed on nonrebreather but sats have increased to greater than 81% and the patient was obtunded therefore ED physician decided to intubate the patient. Per documentation after intubation patient went into PEA arrest and ACLS was initiated and ROSC was achieved after approximately 13 minutes. Work-up in the emergency department revealed leukocytosis, hyponatremia 155, elevated BUN/creatinine at 3.5/74, anion gap metabolic acidosis and hyperglycemia 734. Patient was admitted to the hospital service with consults to cardiology, CCM and nephrology on DKA protocol on mechanical ventilation. Hospital course to date: 07/26: Patient is on any sedation, very sluggish pupillary response, no cough/gag noted, no seizure activity. Neurology recs repeat CT head without contrast or MRI brain without contrast when clinically stable. Patient also had a EEG completed today. Patient is currently maxed on Levophed and vasopressin. Given several LR boluses today. Antibiotics broadened and stress dose steroids added. Assessment/ Plan This is a 77-year-old male with DM, paroxysmal atrial fibrillation, HTN, CVA (2020) admitted s/p cardiac arrest with acute hypoxic respiratory failure and DKA Neuro: Acute metabolic encephalopathy, hepatic encephalopathy, r/o ALEC and subclinical status epilepticus, h/o CVA (2019) -Sluggish pupils, no cough/gag, periodic spontaneous respiration -Neurology consulted, appreciate recommendations -Initial CT head with no acute abnormality -Repeat CT head without contrast of preferably MRI brain without contrast when clinically stable -EEG completed -Per neurology aim for euglycemia and permissive hypertension for now -Ammonia 64 Cardiac: S/p cardiac arrest, h/o hypertension and paroxysmal atrial fibrillation, HLD -Patient suffered cardiac arrest on 07/25 in the ED and then was noted to be in A. fib with RVR -Amiodarone drip -Cardiology consulted, appreciate recommendations -Blood pressure monitoring per protocol -Vasopressor support with Levophed and vasopressin -MAP goal greater than 65 -Echocardiogram shows EF 50 to 60%, no pericardial effusion -Lipitor Respiratory: Acute hypoxic respiratory failure -CCM consulted, appreciate recommendations -Intubated on 07/25 with a 8.00 ETT in the ED -A.m. vent settings: Assist-control rate 20, tidal volume 450, PEEP 6, FiO2 40% -See RT notes for titration -A.m. ABG and CXR noted -VAP bundle -SPO2 monitoring GI: NAD -PPI -D5 IVF : Hypernatremia, high nongap metabolic acidosis, acute kidney injury likely secondary to vasomotor nephropathy, hypokalemia, hyperchloremia, hypophosphatemia -S/p 4 L LR bolus -Nephrology consulted, appreciate recommendations -Serum creatinine 03/08/2020 was 1.3 -D5 half-normal saline with 20 M EQ of KCl at 125 mL/hr -Monitor intake and output -Renally dose medications -Avoid nephrotoxic medications -Urine lites pending -Renal ultrasound pending ID: r/o sepsis -Hypotension, acute kidney injury, acute respiratory failure, lactic acidosis -Antibiotic therapy with cefepime and vancomycin -Solu-Cortef 100 mg every 8 -f/u blood culture -Monitor WBC and temperature curve Endo: DKA, h/o DM -Presented with anion gap of 21, glucose of 761, VBG 7.362 -DKA protocol -Insulin drip -Accu-Cheks per protocol -Transition to SSI and Accu-Cheks every 6 when able -Long-acting insulin when able -Initiate TF if vasopressor requirements decrease, vasopressor use does not change then we will continue texture containing fluid Heme: Leukocytosis -Trend CBC -Transfuse hemoglobin less than 7 -SCDs to BLE while in bed The high probability of a clinically significant, sudden or life threatening deterioration of the [multi] system(s) required my full and direct attention, intervention and personal management. The aggregate critical care time was [60] minutes. This time is in addition to time spent performing reported procedures but includes the following: [x] Data Review and interpretation [x] Patient assessment and monitoring of vital signs [x] Documentation [x] Medication orders and management
[2022-07-26 17:52] LABS: Calcium 7.1 mg/dL (8.4-10.2)
[2022-07-26] MEDS: ACETAMINOPHEN 325 MG TAB PO PRN (19:26)
[2022-07-26 19:33] LABS: Creatinine,Urine 118.4 mg/dL (0.1-20.0); Protein/Creatinine Ratio,Urine 1.23
[2022-07-27 01:35] LABS: Calcium 6.7 mg/dL (8.4-10.2)
[2022-07-27] MEDS: VASOPRESSIN 20 UNIT in SODIUM CHLORIDE 0.9% 100 ML IV SCH ×2 (01:35→16:52)
[2022-07-27] MEDS: D5W/0.45% NACL/KCL 20 MEQ 20 MEQ/1,000 ML BAG IV SCH (01:36)
[2022-07-27] MEDS: MINERAL OIL/PETROLATUM, WHITE OPHTH OINT 3.5 GM OU PRN (03:35)
[2022-07-27 04:38] LABS: Hematocrit 41.7 % (35.5-45.6); Hemoglobin 13.3 gm/dl (11.8-15.2); Mean Corpuscular HGB Conc 32 % (32-34); Mean Corpuscular Volume 90 fl (84-94); Red Blood Count 4.62 M/mm3 (3.65-5.03); Red Cell Distribution Width 15.3 % (13.2-15.2)
[2022-07-27 04:39] LABS: Platelet Count 60 K/mm3 (140-440)
[2022-07-27 04:43] LABS: ABG HCO3 13.3 mmol/L (20.0-26.0); ABG Methemoglobin 0.5 % (0.0-1.5); ABG Oxygen Saturation 98.2 % (95.0-99.0); ABG PCO2 21.1 mm Hg; ABG PH 7.418 pH Units (7.350-7.450); ABG PO2 110.1 mm Hg (80.0-90.0)
[2022-07-27 05:01] LABS: Albumin 2.1 g/dL (3.9-5); Calcium 6.8 mg/dL (8.4-10.2)
[2022-07-27 05:32] LABS: Band Neutrophils # (Manual) 2.5 K/mm3; Basophils % (Manual) 0 % (0.0-1.8); Eosinophils % (Manual) 0 % (0.0-4.3); Platelet Estimate Consistent w Auto; Total Cells Counted 100
[2022-07-27] MEDS: HYDROCORTISONE SOD SUCC 100 MG/2 ML VIAL IV SCH ×3 (07:20→20:59)
[2022-07-27] MEDS ORDERED: INSULIN GLARGINE 100 UNITS/ML SUB-Q SCH (10:00)
[2022-07-27] MEDS ORDERED: POTASSIUM PHOSPHATE 15 MMOL in SODIUM CHLORIDE 0.9% 250ML 250 ML IV SCH (10:00)
[2022-07-27] MEDS ORDERED: LACTATED RINGERS 1,000 ML IV SCH (10:00)
--- NOTE | 2022-07-27 10:21 | Ultrasound Report ---
ULTRASOUND RENAL INDICATION / CLINICAL INFORMATION: renal failure. COMPARISON: CT chest abdomen and pelvis 02/20/2020. FINDINGS: RIGHT KIDNEY: Length = 10.0 cm. - Echogenicity: Normal. - Parenchymal Thickness: Mild thinning. - Hydronephrosis: None. - Cyst / Mass: None. - Stones: None seen. LEFT KIDNEY: Length = 9.8 cm. - Echogenicity: Normal. - Parenchymal Thickness: Normal. - Hydronephrosis: None. - Cyst / Mass: None. Previously described 1.3 cm upper pole cyst is not identified. - Stones: None seen. URINARY BLADDER: Collapsed with Yañez catheter in place. FREE FLUID: Trace abdominal ascites. ADDITIONAL FINDINGS: None. IMPRESSION: 1. No acute sonographic abnormality of the kidneys. 2. Trace abdominal ascites. Scribed by: Kasey Sharma RDMS, KALPANA, ARLEEN Scribed: 07/27/2022 9:05 AM I have reviewed the images, agree with this report, and edited this report as needed. Signer Name: Darius Reynolds MD Signed: 07/27/2022 10:17 AM Workstation Name: [id number]
--- NOTE | 2022-07-27 10:25 | Electrocardiograph Report ---
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 ectopic atrial tachycardia v 2:1 atrial flutter Consider dextrocardia No previous ECG available for comparison Electronically Signed On 07-27-2022 10:24:47 EDT by Geovany Skinner
--- NOTE | 2022-07-27 10:25 | Electrocardiograph Report ---
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
--- NOTE | 2022-07-27 10:31 | Electrocardiograph Report ---
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
[2022-07-27] MEDS: FAMOTIDINE 20 MG/2 ML INJ IV SCH (10:45)
[2022-07-27] MEDS: CEFEPIME/NS 2 GM/100 ML 2 GM/100 ML BAG IV SCH (10:45)
--- NOTE | 2022-07-27 12:26 | Progress Note ---
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 Serum creatinine 2.8 today, yesterdays was 3.9 Serum creatinine in February 2020 was 1.3 Renal ultrasound reviewed. No hydronephrosis. Urine lytes reviewed. Has proteinuria likely from uncontrolled DM Sodium level 154 today, yesterdays was 162 S/P D5W+1/2NS with 20 meq KCl@ 125 ml/hr Start free water flush 150 ml every 4 hours DKA-S/P insulin drip Hypotension-On Norepi drip Hypophosphatemia- in repletion with IV K-phos Obtain daily weights Monitor I/O's daily Avoid nephrotoxic agents No acute indication for [employer] Continue to monitor renal function closely Plan of care reviewed by Dr. Isaacs Subjective Date of service: 07/27/22 Principal diagnosis: Hypernatremia, ARF Interval history: Patient intubated. at bedside. Objective - Vital Signs Vital signs: Vital Signs - 12hr 07/27/22 07/27/22 07/27/22 00:30 00:43 00:45 Temperature Pulse Rate 118 H 119 H 128 H Pulse Rate [ From Monitor] Respiratory 25 H 22 Rate Blood Pressure 107/77 107/77 116/76 O2 Sat by Pulse 100 100 Oximetry 07/27/22 07/27/22 07/27/22 01:00 01:16 01:30 Temperature Pulse Rate 125 H 120 H 127 H Pulse Rate [ From Monitor] Respiratory 37 H 21 22 Rate Blood Pressure 107/65 93/64 109/74 O2 Sat by Pulse 100 100 100 Oximetry 07/27/22 07/27/22 07/27/22 01:45 02:00 02:15 Temperature Pulse Rate 127 H 123 H 109 H Pulse Rate [ From Monitor] Respiratory 29 H 22 22 Rate Blood Pressure 101/73 107/69 99/66 O2 Sat by Pulse 100 100 Oximetry 07/27/22 07/27/22 07/27/22 02:30 02:45 03:00 Temperature Pulse Rate 129 H 126 H 109 H Pulse Rate [ From Monitor] Respiratory 37 H 28 H 30 H Rate Blood Pressure 119/71 121/62 96/67 O2 Sat by Pulse 100 100 Oximetry 07/27/22 07/27/2207/27/22 03:13 03:15 03:30 Temperature Pulse Rate 109 H 110 H 110 H Pulse Rate [ 120 H From Monitor] Respiratory 26 H 21 29 H Rate Blood Pressure 100/66 99/65 O2 Sat by Pulse 100 100 100 Oximetry 07/27/22 07/27/22 07/27/22 03:45 04:00 04:15 Temperature 99.9 F H Pulse Rate 109 H 118 H 109 H Pulse Rate [ From Monitor] Respiratory 26 H 27 H 30 H Rate Blood Pressure 96/68 91/62 100/67 O2 Sat by Pulse 100 99 Oximetry 07/27/22 07/27/22 07/27/22 04:30 04:40 04:45 Temperature Pulse Rate 116 H 108 H 108 H Pulse Rate [ From Monitor] Respiratory 28 H 27 H Rate Blood Pressure 109/66 109/99 99/68 O2 Sat by Pulse 100 100 Oximetry 07/27/22 07/27/22 07/27/22 05:00 05:16 05:30 Temperature Pulse Rate 134 H 109 H 126 H Pulse Rate [ From Monitor] Respiratory 29 H 26 H 25 H Rate Blood Pressure 109/64 109/64 164/105 O2 Sat by Pulse 100 100 Oximetry 07/27/22 07/27/22 07/27/22 05:46 06:00 06:15 Temperature Pulse Rate 120 H 119 H 108 H Pulse Rate [ From Monitor] Respiratory 25 H 23 20 Rate Blood Pressure 183/140 183/140 86/57 O2 Sat by Pulse 99 100 100 Oximetry 07/27/22 07/27/22 07/27/22 06:30 06:45 07:00 Temperature Pulse Rate 77 107 H 87 Pulse Rate [ From Monitor] Respiratory 20 19 27 H Rate Blood Pressure 144/120 100/67 100/67 O2 Sat by Pulse 100 100 100 Oximetry 07/27/22 07/27/22 07/27/22 07:15 07:30 07:45 Temperature Pulse Rate 43 L 70 65 Pulse Rate [ From Monitor] Respiratory 26 H 22 23 Rate Blood Pressure 106/55 112/61 99/67 O2 Sat by Pulse 100 99 98 Oximetry 07/27/22 07/27/22 07/27/22 08:00 08:15 08:30 Temperature 100.1 F H Pulse Rate 61 70 94 H Pulse Rate [ 73 From Monitor] Respiratory 25 H 24 19 Rate Blood Pressure 86/65 109/67 107/66 O2 Sat by Pulse 100 100 100 Oximetry 07/27/22 07/27/22 07/27/22 08:45 08:53 09:00 Temperature Pulse Rate 79 100 H 55 L Pulse Rate [ From Monitor] Respiratory 18 16 Rate Blood Pressure 113/70 113/70 113/70 O2 Sat by Pulse 100 96 99 Oximetry 07/27/22 07/27/22 07/27/22 09:16 09:30 09:46 Temperature Pulse Rate 55 L Pulse Rate [ From Monitor] Respiratory 18 32 H 28 H Rate Blood Pressure 84/52 86/49 86/49 O2 Sat by Pulse 99 100 Oximetry 07/27/22 07/27/22 07/27/22 10:00 10:16 10:30 Temperature Pulse Rate 78 62 Pulse Rate [ From Monitor] Respiratory 22 18 20 Rate Blood Pressure 86/49 86/49 92/57 O2 Sat by Pulse 100 100 100 Oximetry 07/27/22 07/27/22 07/27/22 10:45 11:02 12:00 Temperature Pulse Rate 78 90 100 H Pulse Rate [ From Monitor] Respiratory 23 24 Rate Blood Pressure 105/72 133/64 O2 Sat by Pulse 100 100 100 Oximetry - General Appearance General appearance: sedated on ventilator, intubated EENT: ATNC Neck: no JVD Respiratory: Present: Decreased Breath Sounds, Other (Intubated) Cardiology: S1S2 Gastrointestinal: normoactive bowel sounds Neurologic: other (Sedated) Musculoskeletal: joint swelling - Lab 07/27/22 03:50 07/27/22 03:50 Most recent lab results ABG pH 7.418 pH Units (7.350-7.450) 07/27/22 03:55 ABG pCO2 21.1 mm Hg 07/27/22 03:55 ABG pO2 110.1 mm Hg (80.0-90.0) H 07/27/22 03:55 ABG HCO3 13.3 mmol/L (20.0-26.0) L 07/27/22 03:55 ABG O2 Saturation 98.2 % (95.0-99.0) 07/27/22 03:55 Calcium 6.8 mg/dL (8.4-10.2) L 07/27/22 03:50 Phosphorus 1.30 mg/dL (2.5-4.5) L 07/27/22 03:50 Magnesium 2.30 mg/dL (1.7-2.3) 07/27/22 03:50 Urine Creatinine 118.4 mg/dL (0.1-20.0) H 07/26/22 18:10 Urine Sodium 108 mmol/L 07/26/22 18:10 Urine Total Protein 146 mg/dL (5-11.8) H 07/26/22 18:10 Medications & Allergies - Medications Allergies/Adverse Reactions: Allergies aspirin Allergy (Verified 02/15/20 13:24) Swelling iron Allergy (Verified 02/15/20 13:24) Itching Home Medications: Home Medications Medication Instructions Recorded Confirmed Last Taken Type metFORMIN [Glucophage] 1,000 mg PO BID 02/11/14 02/15/20 02/14/20 History Acetaminophen [Acetaminophen ER 650 mg PO Q8HR PRN #20 tablet.er 10/21/19 Unknown Rx TAB] ALBUTEROL NEB's [Proventil 0.083% 2.5 mg IH Q3HRT PRN #30 nebu 03/09/20 Unknown Rx NEBS] Aspirin EC [Halfprin EC] 81 mg PO QDAY #30 tablet. 03/09/20 Unknown Rx AtorvaSTATin [Lipitor] 40 mg FEEDTUBE QHS #30 tablet 03/09/20 Unknown Rx Famotidine [Pepcid] 20 mg FEEDTUBE DAILY #30 tablet 03/09/20 Unknown Rx Insulin Glargine [Lantus VIAL] 50 units SUB-Q QAMDIAB #1 vial 03/09/20 Unknown Rx Insulin Glargine [Lantus VIAL] 50 units SUB-Q QHS #1 vial 03/09/20 Unknown Rx Insulin Regular, Human [HumuLIN R] 0 units SUB-Q Q6HR #1 vial 03/09/20 Unknown Rx Metoclopramide [Reglan ORAL LIQ] 5 mg FEEDTUBE Q6H PRN 30 Days 03/09/20 Unknown Rx Metoprolol [Lopressor TAB] 100 mg FEEDTUBE BID #60 tablet 03/09/20 Unknown Rx amLODIPine 10 mg FEEDTUBE QDAY #30 tablet 03/09/20 Unknown Rx traMADoL [Ultram 50 MG tab] 50 mg FEEDTUBE Q6HR PRN #10 tablet 03/09/20 Unknown Rx Active Medications: Generic Name Dose Route Start Last Admin Trade Name Freq PRN Reason Stop Dose Admin Acetaminophen 650 mg 07/26/22 00:31 07/26/22 19:26 Acetaminophen 325 Mg Tab PO 650 mg Q4H PRN Administration Pain MILD(1-3)/Fever >100.5/LANTIGUA Acetaminophen 650 mg 07/26/22 02:04 Acetaminophen 650 Mg Rect Supp [place] Q4H PRN Pain, Mild (1-3) Albuterol 2.5 mg 07/26/22 00:31 Albuterol 2.5 Mg/3 Ml Nebu IH Q3HRT PRN Shortness Of Breath Atorvastatin Calcium 40 mg 07/26/22 22:00 07/26/22 20:59 Atorvastatin 40 Mg Tab PO 40 mg QHS LIZZIE Administration Dextrose 50 ml 07/27/22 09:25 Dextrose 50% In Water (25gm) 50 Ml Syringe IV Q30MIN PRN Hypoglycemia Protocol Famotidine 10 mg 07/28/22 10:00 Famotidine 10 Mg Tab FEEDTUBE BID LIZZIE Hydrocortisone Sodium Succinate 100 mg 07/26/22 14:00 07/27/22 07:20 Hydrocortisone Sod Succ 100 Mg/2 Ml Vial IV 100 mg Q8HR LIZZIE Administration NORepinephrine/NS 8 MG-250 ML 8 mg in 250 mls @ 3.75 mls/hr 07/25/22 23:00 07/27/22 10:38 Norepinephrine/Ns 8 Mg-250 Ml (Double Conc) IV 6 mcg/min TITRATE LIZZIE 11.25 mls/hr Titration Protocol 2 MCG/MIN Amiodarone HCl 900 mg/ 500 mls @ 33.333 mls/hr 07/26/22 04:10 07/26/22 21:46 Dextrose IV 0.5 mg/min DIRECT LIZZIE 16.667 mls/hr Administration Protocol 1 MG/MIN Vasopressin 20 unit/ Sodium 101 mls @ 9.09 mls/hr 07/26/22 05:00 07/27/22 10:29 Chloride IV 0.03 units/min TITR LIZZIE 9.09 mls/hr Titration Protocol 0.03 UNITS/MIN Potassium Phosphate 15 mmol/ 255 mls @ 63.75 mls/hr 07/27/22 10:00 07/27/22 10:45 Sodium Chloride IV 07/27/22 14:00 63.75 mls/hr ONCE@1000 LIZZIE Administration Cefepime HCl 2 gm in 100 mls @ 200 mls/hr 07/27/22 11:00 07/27/22 10:45 Cefepime/Ns 2 Gm/100 Ml IV 200 mls/hr Q24H LIZZIE Administration Protocol Insulin Glargine 10 units 07/27/22 10:00 07/27/22 10:46 Insulin Glargine 100 Units/Ml SUB-Q 10 units DAILY LIZZIE Administration Insulin Human Regular 0 units 07/27/22 12:00 Insulin Regular, Human 100 Units/1 Ml SUB-Q Q6H [facility] Protocol Multi-Ingred Cream/Lotion/Oil/Oint 1 applic 07/27/22 03:17 07/27/22 03:35 Mineral Oil/Petrolatum, White Ophth Oint 3.5 Gm OU 1 applic PRN PRN Administration Dry Eye(s) Nitroglycerin 0.4 mg 07/26/22 00:31 Nitroglycerin 0.4 Mg Tab Subl SL Q5M PRN Chest Pain Ondansetron HCl 4 mg 07/26/22 00:31 Ondansetron 4 Mg/2 Ml Inj IV Q8H PRN Nausea And Vomiting Sodium Chloride 10 ml 07/26/22 10:00 07/27/22 10:46 Sodium Chloride 0.9% 10 Ml Flush Syringe IV 10 ml BID LIZZIE Administration Sodium Chloride 10 ml 07/26/22 00:31 Sodium Chloride 0.9% 10 Ml Flush Syringe IV PRN PRN LINE FLUSH
--- NOTE | 2022-07-27 12:40 | Progress Note ---
Assessment and Plan 77 y/o male with cardiac arrest, intubated, not sedated with multisystem organ failure 07/27/22: more volume again today. Echo showed normal EF. Wean pressors for MAPs >65, follow up EEg results. Hopeful to get head CT today. Platelets dropped today, not on heparin. Could be sepsis related. If head CT negative, may need to evaluate abdomen around peg. Will start trickle feeds today and transition of insulin drip. Prognosis is still guarded. 1. IVF resusciation with LR 2. Insulin drip and continue NPO state 3. Attempt to wean pressors for MAPs greater than 65 4. Monitor urine output 5. Broaden abx therapy given current clinical state 6. Follow up echo report 7. Agree with stress dose steroids 8. No sedation 9. EEG pending Overall prognosis is guarded to poor, especially given current clinical exam CCT 31 minutes. Subjective Date of service: 07/27/22 Principal diagnosis: Hypernatremia, ARF Interval history: Slightly better today. Does have cough and gag. Down to 6 of levo and vaso is off. Still making urine. On stress dose steroids. Objective Vital Signs - 12hr 07/27/22 07/27/22 07/27/22 00:43 00:45 01:00 Temperature Pulse Rate 119 H 128 H 125 H Pulse Rate [ From Monitor] Respiratory 22 37 H Rate Blood Pressure 107/77 116/76 107/65 O2 Sat by Pulse 100 100 100 Oximetry 07/27/22 07/27/22 07/27/22 01:16 01:30 01:45 Temperature Pulse Rate 120 H 127 H 127 H Pulse Rate [ From Monitor] Respiratory 21 22 29 H Rate Blood Pressure 93/64 109/74 101/73 O2 Sat by Pulse 100 100 100 Oximetry 07/27/22 07/27/22 07/27/22 02:00 02:15 02:30 Temperature Pulse Rate 123 H 109 H 129 H Pulse Rate [ From Monitor] Respiratory 22 22 37 H Rate Blood Pressure 107/69 99/66 119/71 O2 Sat by Pulse 100 100 Oximetry 07/27/22 07/27/22 07/27/22 02:45 03:00 03:13 Temperature Pulse Rate 126 H 109 H 109 H Pulse Rate [ 120 H From Monitor] Respiratory 28 H 30 H 26 H Rate Blood Pressure 121/62 96/67 O2 Sat by Pulse 100 100 Oximetry 07/27/22 07/27/22 07/27/22 03:15 03:30 03:45 Temperature Pulse Rate 110 H 110 H 109 H Pulse Rate [ From Monitor] Respiratory 21 29 H 26 H Rate Blood Pressure 100/66 99/65 96/68 O2 Sat by Pulse 100 100 100 Oximetry 07/27/22 07/27/22 07/27/22 04:00 04:15 04:30 Temperature 99.9 F H Pulse Rate 118 H 109 H 116 H Pulse Rate [ From Monitor] Respiratory 27 H 30 H 28 H Rate Blood Pressure 91/62 100/67 109/66 O2 Sat by Pulse 99 100 Oximetry 07/27/22 07/27/22 07/27/22 04:40 04:45 05:00 Temperature Pulse Rate 108 H 108 H 134 H Pulse Rate [ From Monitor] Respiratory 27 H 29 H Rate Blood Pressure 109/99 99/68 109/64 O2 Sat by Pulse 100 100 Oximetry 07/27/22 07/27/22 07/27/22 05:16 05:30 05:46 Temperature Pulse Rate 109 H 126 H 120 H Pulse Rate [ From Monitor] Respiratory 26 H 25 H 25 H Rate Blood Pressure 109/64 164/105 183/140 O2 Sat by Pulse 100 99 Oximetry 07/27/22 07/27/22 07/27/22 06:00 06:15 06:30 Temperature Pulse Rate 119 H 108 H 77 Pulse Rate [ From Monitor] Respiratory 23 20 20 Rate Blood Pressure 183/140 86/57 144/120 O2 Sat by Pulse 100 100 100 Oximetry 07/27/22 07/27/22 07/27/22 06:45 07:00 07:15 Temperature Pulse Rate 107 H 87 43 L Pulse Rate [ From Monitor] Respiratory 19 27 H 26 H Rate Blood Pressure 100/67 100/67 106/55 O2 Sat by Pulse 100 100 100 Oximetry 07/27/22 07/27/22 07/27/22 07:30 07:45 08:00 Temperature 100.1 F H Pulse Rate 70 65 61 Pulse Rate [ 73 From Monitor] Respiratory 22 23 25 H Rate Blood Pressure 112/61 99/67 86/65 O2 Sat by Pulse 99 98 100 Oximetry 07/27/22 07/27/22 07/27/22 08:15 08:30 08:45 Temperature Pulse Rate 70 94 H 79 Pulse Rate [ From Monitor] Respiratory 24 19 18 Rate Blood Pressure 109/67 107/66 113/70 O2 Sat by Pulse 100 100 100 Oximetry 07/27/22 07/27/22 07/27/22 08:53 09:00 09:16 Temperature Pulse Rate 100 H 55 L 55 L Pulse Rate [ From Monitor] Respiratory 16 18 Rate Blood Pressure 113/70 113/70 84/52 O2 Sat by Pulse 96 99 99 Oximetry 07/27/22 07/27/22 07/27/22 09:30 09:46 10:00 Temperature Pulse Rate 78 Pulse Rate [ From Monitor] Respiratory 32 H 28 H 22 Rate Blood Pressure 86/49 86/49 86/49 O2 Sat by Pulse 100 100 Oximetry 07/27/22 07/27/22 07/27/22 10:16 10:30 10:45 Temperature Pulse Rate 62 78 Pulse Rate [ From Monitor] Respiratory 18 20 23 Rate Blood Pressure 86/49 92/57 105/72 O2 Sat by Pulse 100 100 100 Oximetry 07/27/22 07/27/22 11:02 12:00 Temperature Pulse Rate 90 100 H Pulse Rate [ From Monitor] Respiratory 24 Rate Blood Pressure 133/64 O2 Sat by Pulse 100 100 Oximetry CBC and BMP: 07/27/22 03:50 07/27/22 03:50 ABG, PT/INR, D-dimer: ABG ABG pH 7.418 pH Units (7.350-7.450) 07/27/22 03:55 ABG pCO2 21.1 mm Hg 07/27/22 03:55 ABG pO2 110.1 mm Hg (80.0-90.0) H 07/27/22 03:55 ABG O2 Saturation 98.2 % (95.0-99.0) 07/27/22 03:55 Abnormal lab findings: Abnormal Labs 07/25/22 07/25/22 07/25/22 19:37 19:37 19:37 WBC 18.8 H RBC 6.31 H Hgb 18.8 H Hct 57.3 H MCHC RDW Plt Count Gage # (Auto) 1.4 H Seg Neutrophils % 70.7 H Seg Neuts % (Manual) Lymphocytes % (Manual) Seg Neutrophils # 13.3 H Seg Neutrophils # Man Lymphocytes # (Manual) ABG pH ABG pO2 ABG HCO3 ABG O2 Saturation ABG Base Excess ABG Hemoglobin Sodium 149 H Potassium Chloride 110.3 H Carbon Dioxide 18 L BUN 73 H Creatinine 3.3 H Glucose 761 H* POC Glucose Lactic Acid Calcium 10.6 H Phosphorus Magnesium 3.10 H AST 63 H ALT 64 H Ammonia Troponin T 0.072 H Total Protein 9.0 H Albumin Triglycerides 362 H LDL Cholesterol Direct 44 L HDL Cholesterol 34 L Urine Creatinine Urine Total Protein 07/25/22 07/25/22 07/25/22 19:37 21:08 22:10 WBC RBC Hgb Hct MCHC RDW Plt Count Gage # (Auto) Seg Neutrophils % Seg Neuts % (Manual) Lymphocytes % (Manual) Seg Neutrophils # Seg Neutrophils # Man Lymphocytes # (Manual) ABG pH ABG pO2 ABG HCO3 ABG O2 Saturation ABG Base Excess ABG Hemoglobin Sodium 155 H Potassium Chloride 113.1 H Carbon Dioxide 14 L BUN 74 H Creatinine 3.5 H Glucose 734 H* POC Glucose Lactic Acid 12.70 H* Calcium Phosphorus Magnesium AST ALT Ammonia 64.0 H Troponin T Total Protein Albumin Triglycerides LDL Cholesterol Direct HDL Cholesterol Urine Creatinine Urine Total Protein 07/25/22 07/25/22 07/26/22 22:20 23:29 00:13 WBC RBC Hgb Hct MCHC RDW Plt Count Gage # (Auto) Seg Neutrophils % Seg Neuts % (Manual) Lymphocytes % (Manual) Seg Neutrophils # Seg Neutrophils # Man Lymphocytes # (Manual) ABG pH 7.342 L ABG pO2 318.2 H ABG HCO3 14.4 L ABG O2 Saturation 99.5 H ABG Base Excess -9.4 L ABG Hemoglobin Sodium 157 H Potassium 3.1 L D Chloride 114.0 H Carbon Dioxide 21 L D BUN 72 H Creatinine 3.7 H Glucose 615 H* POC Glucose > 600 H Lactic Acid Calcium Phosphorus Magnesium AST ALT Ammonia Troponin T Total Protein Albumin Triglycerides LDL Cholesterol Direct HDL Cholesterol Urine Creatinine Urine Total Protein 07/26/22 07/26/22 07/26/22 00:13 00:38 00:39 WBC 21.4 H RBC 5.88 H Hgb 17.2 H Hct 55.0 H MCHC 31 L RDW 16.0 H Plt Count Gage # (Auto) Seg Neutrophils % Seg Neuts % (Manual) 77.0 H Lymphocytes % (Manual) 13.0 L Seg Neutrophils # Seg Neutrophils # Man 16.5 H Lymphocytes # (Manual) ABG pH ABG pO2 ABG HCO3 ABG O2 Saturation ABG Base Excess ABG Hemoglobin Sodium Potassium Chloride Carbon Dioxide BUN Creatinine Glucose POC Glucose 517 H Lactic Acid 9.10 H* Calcium Phosphorus Magnesium AST ALT Ammonia Troponin T Total Protein Albumin Triglycerides LDL Cholesterol Direct HDL Cholesterol Urine Creatinine Urine Total Protein 07/26/22 07/26/22 07/26/22 00:39 01:32 02:28 WBC RBC Hgb Hct MCHC RDW Plt Count Gage # (Auto) Seg Neutrophils % Seg Neuts % (Manual) Lymphocytes % (Manual) Seg Neutrophils # Seg Neutrophils # Man Lymphocytes # (Manual) ABG pH ABG pO2 ABG HCO3 ABG O2 Saturation ABG Base Excess ABG Hemoglobin Sodium Potassium Chloride Carbon Dioxide BUN Creatinine Glucose POC Glucose 460 H 237 H Lactic Acid Calcium Phosphorus 1.20 L D Magnesium 4.10 H AST ALT Ammonia Troponin T Total Protein Albumin Triglycerides LDL Cholesterol Direct HDL Cholesterol Urine Creatinine Urine Total Protein 07/26/22 07/26/22 07/26/22 03:03 03:07 04:11 WBC RBC Hgb Hct MCHC RDW Plt Count Gage # (Auto) Seg Neutrophils % Seg Neuts % (Manual) Lymphocytes % (Manual) Seg Neutrophils # Seg Neutrophils # Man Lymphocytes # (Manual) ABG pH ABG pO2 ABG HCO3 ABG O2 Saturation ABG Base Excess ABG Hemoglobin Sodium Potassium Chloride Carbon Dioxide BUN Creatinine Glucose POC Glucose 433 H 370 H 338 H Lactic Acid Calcium Phosphorus Magnesium AST ALT Ammonia Troponin T Total Protein Albumin Triglycerides LDL Cholesterol Direct HDL Cholesterol Urine Creatinine Urine Total Protein 07/26/22 07/26/22 07/26/22 04:35 04:35 04:40 WBC RBC Hgb Hct MCHC RDW Plt Count Gage # (Auto) Seg Neutrophils % Seg Neuts % (Manual) Lymphocytes % (Manual) Seg Neutrophils # Seg Neutrophils # Man Lymphocytes # (Manual) ABG pH 7.301 L ABG pO2 178.2 H ABG HCO3 11.0 L ABG O2 Saturation 99.1 H ABG Base Excess -13.3 L ABG Hemoglobin Sodium 162 H* Potassium 3.0 L Chloride 124.8 H Carbon Dioxide 18 L BUN 69 H Creatinine 3.9 H Glucose 385 H POC Glucose Lactic Acid 8.20 H* Calcium 7.8 L Phosphorus Magnesium AST ALT Ammonia Troponin T Total Protein Albumin Triglycerides LDL Cholesterol Direct HDL Cholesterol Urine Creatinine Urine Total Protein 07/26/22 07/26/22 07/26/22 05:01 06:14 06:52 WBC RBC Hgb Hct MCHC RDW Plt Count Gage # (Auto) Seg Neutrophils % Seg Neuts % (Manual) Lymphocytes % (Manual) Seg Neutrophils # Seg Neutrophils # Man Lymphocytes # (Manual) ABG pH ABG pO2 ABG HCO3 ABG O2 Saturation ABG Base Excess ABG Hemoglobin Sodium Potassium Chloride Carbon Dioxide BUN Creatinine Glucose POC Glucose 347 H 300 H 278 H Lactic Acid Calcium Phosphorus Magnesium AST ALT Ammonia Troponin T Total Protein Albumin Triglycerides LDL Cholesterol Direct HDL Cholesterol Urine Creatinine Urine Total Protein 07/26/22 07/26/22 07/26/22 07:59 08:58 10:04 WBC RBC Hgb Hct MCHC RDW Plt Count Gage # (Auto) Seg Neutrophils % Seg Neuts % (Manual) Lymphocytes % (Manual) Seg Neutrophils # Seg Neutrophils # Man Lymphocytes # (Manual) ABG pH ABG pO2 ABG HCO3 ABG O2 Saturation ABG Base Excess ABG Hemoglobin Sodium Potassium Chloride Carbon Dioxide BUN Creatinine Glucose POC Glucose 269 H 277 H 244 H Lactic Acid Calcium Phosphorus Magnesium AST ALT Ammonia Troponin T Total Protein Albumin Triglycerides LDL Cholesterol Direct HDL Cholesterol Urine Creatinine Urine Total Protein 07/26/22 07/26/22 07/26/22 11:03 11:53 13:08 WBC RBC Hgb Hct MCHC RDW Plt Count Gage # (Auto) Seg Neutrophils % Seg Neuts % (Manual) Lymphocytes % (Manual) Seg Neutrophils # Seg Neutrophils # Man Lymphocytes # (Manual) ABG pH ABG pO2 ABG HCO3 ABG O2 Saturation ABG Base Excess ABG Hemoglobin Sodium Potassium Chloride Carbon Dioxide BUN Creatinine Glucose POC Glucose 253 H 213 H 194 H Lactic Acid Calcium Phosphorus Magnesium AST ALT Ammonia Troponin T Total Protein Albumin Triglycerides LDL Cholesterol Direct HDL Cholesterol Urine Creatinine Urine Total Protein 07/26/22 07/26/22 07/26/22 14:24 14:56 14:57 WBC RBC Hgb Hct MCHC RDW Plt Count Gage # (Auto) Seg Neutrophils % Seg Neuts % (Manual) Lymphocytes % (Manual) Seg Neutrophils # Seg Neutrophils # Man Lymphocytes # (Manual) ABG pH ABG pO2 ABG HCO3 ABG O2 Saturation ABG Base Excess ABG Hemoglobin Sodium Potassium Chloride Carbon Dioxide BUN Creatinine Glucose POC Glucose 185 H 236 H 207 H Lactic Acid Calcium Phosphorus Magnesium AST ALT Ammonia Troponin T Total Protein Albumin Triglycerides LDL Cholesterol Direct HDL Cholesterol Urine Creatinine Urine Total Protein 07/26/22 07/26/22 07/26/22 15:36 15:36 15:36 WBC RBC Hgb Hct MCHC RDW Plt Count Gage # (Auto) Seg Neutrophils % Seg Neuts % (Manual) Lymphocytes % (Manual) Seg Neutrophils # Seg Neutrophils # Man Lymphocytes # (Manual) ABG pH ABG pO2 ABG HCO3 ABG O2 Saturation ABG Base Excess ABG Hemoglobin Sodium 160 H Potassium Chloride 126.2 H Carbon Dioxide 18 L BUN 59 H Creatinine 3.2 H Glucose 227 H POC Glucose Lactic Acid 9.70 H* Calcium 7.1 L Phosphorus Magnesium AST ALT Ammonia Troponin T 0.049 H D Total Protein Albumin Triglycerides LDL Cholesterol Direct HDL Cholesterol Urine Creatinine Urine Total Protein 07/26/22 07/26/22 07/26/22 15:57 16:32 17:04 WBC RBC Hgb Hct MCHC RDW Plt Count Gage # (Auto) Seg Neutrophils % Seg Neuts % (Manual) Lymphocytes % (Manual) Seg Neutrophils # Seg Neutrophils # Man Lymphocytes # (Manual) ABG pH ABG pO2 ABG HCO3 ABG O2 Saturation ABG Base Excess ABG Hemoglobin Sodium Potassium Chloride Carbon Dioxide BUN Creatinine Glucose POC Glucose 207 H 189 H 219 H Lactic Acid Calcium Phosphorus Magnesium AST ALT Ammonia Troponin T Total Protein Albumin Triglycerides LDL Cholesterol Direct HDL Cholesterol Urine Creatinine Urine Total Protein 07/26/22 07/26/22 07/26/22 18:00 18:10 18:52 WBC RBC Hgb Hct MCHC RDW Plt Count Gage # (Auto) Seg Neutrophils % Seg Neuts % (Manual) Lymphocytes % (Manual) Seg Neutrophils # Seg Neutrophils # Man Lymphocytes # (Manual) ABG pH ABG pO2 ABG HCO3 ABG O2 Saturation ABG Base Excess ABG Hemoglobin Sodium Potassium Chloride Carbon Dioxide BUN Creatinine Glucose POC Glucose 197 H 194 H Lactic Acid Calcium Phosphorus Magnesium AST ALT Ammonia Troponin T Total Protein Albumin Triglycerides LDL Cholesterol Direct HDL Cholesterol Urine Creatinine 118.4 H Urine Total Protein 146 H 07/26/22 07/26/22 07/26/22 20:47 21:30 21:51 WBC RBC Hgb Hct MCHC RDW Plt Count Gage # (Auto) Seg Neutrophils % Seg Neuts % (Manual) Lymphocytes % (Manual) Seg Neutrophils # Seg Neutrophils # Man Lymphocytes # (Manual) ABG pH ABG pO2 ABG HCO3 ABG O2 Saturation ABG Base Excess ABG Hemoglobin Sodium 155 H Potassium Chloride 123.5 H Carbon Dioxide 16 L BUN 53 H Creatinine 2.9 H Glucose 185 H POC Glucose 134 H 124 H Lactic Acid Calcium 7.0 L Phosphorus Magnesium AST ALT Ammonia Troponin T Total Protein Albumin Triglycerides LDL Cholesterol Direct HDL Cholesterol Urine Creatinine Urine Total Protein 07/26/22 07/26/22 07/27/22 22:47 23:52 00:45 WBC RBC Hgb Hct MCHC RDW Plt Count Gage # (Auto) Seg Neutrophils % Seg Neuts % (Manual) Lymphocytes % (Manual) Seg Neutrophils # Seg Neutrophils # Man Lymphocytes # (Manual) ABG pH ABG pO2 ABG HCO3 ABG O2 Saturation ABG Base Excess ABG Hemoglobin Sodium 155 H Potassium Chloride 124.2 H Carbon Dioxide 19 L BUN 53 H Creatinine 2.5 H Glucose 168 H POC Glucose 138 H 150 H Lactic Acid Calcium 6.7 L Phosphorus Magnesium AST ALT Ammonia Troponin T Total Protein Albumin Triglycerides LDL Cholesterol Direct HDL Cholesterol Urine Creatinine Urine Total Protein 07/27/22 07/27/22 07/27/22 00:58 02:45 03:50 WBC 15.4 H RBC Hgb Hct MCHC RDW 15.3 H Plt Count 60 L Gage # (Auto) Seg Neutrophils % Seg Neuts % (Manual) 78.0 H Lymphocytes % (Manual) 3.0 L Seg Neutrophils # Seg Neutrophils # Man 12.0 H Lymphocytes # (Manual) 0.5 L ABG pH ABG pO2 ABG HCO3 ABG O2 Saturation ABG Base Excess ABG Hemoglobin Sodium Potassium Chloride Carbon Dioxide BUN Creatinine Glucose POC Glucose 153 H 150 H Lactic Acid Calcium Phosphorus Magnesium AST ALT Ammonia Troponin T Total Protein Albumin Triglycerides LDL Cholesterol Direct HDL Cholesterol Urine Creatinine Urine Total Protein 07/27/22 07/27/22 07/27/22 03:50 03:55 04:57 WBC RBC Hgb Hct MCHC RDW Plt Count Gage # (Auto) Seg Neutrophils % Seg Neuts % (Manual) Lymphocytes % (Manual) Seg Neutrophils # Seg Neutrophils # Man Lymphocytes # (Manual) ABG pH ABG pO2 110.1 H ABG HCO3 13.3 L ABG O2 Saturation ABG Base Excess -9.0 L ABG Hemoglobin 13.1 L Sodium 154 H Potassium Chloride 123.0 H Carbon Dioxide 19 L BUN 55 H Creatinine 2.8 H Glucose 153 H POC Glucose 112 H Lactic Acid Calcium 6.8 L Phosphorus 1.30 L Magnesium AST 64 H ALT Ammonia Troponin T Total Protein 4.1 L D Albumin 2.1 L Triglycerides LDL Cholesterol Direct HDL Cholesterol Urine Creatinine Urine Total Protein 07/27/22 07/27/22 07/27/22 08:22 09:30 10:49 WBC RBC Hgb Hct MCHC RDW Plt Count Gage # (Auto) Seg Neutrophils % Seg Neuts % (Manual) Lymphocytes % (Manual) Seg Neutrophils # Seg Neutrophils # Man Lymphocytes # (Manual) ABG pH ABG pO2 ABG HCO3 ABG O2 Saturation ABG Base Excess ABG Hemoglobin Sodium Potassium Chloride Carbon Dioxide BUN Creatinine Glucose POC Glucose 146 H 153 H 163 H Lactic Acid Calcium Phosphorus Magnesium AST ALT Ammonia Troponin T Total Protein Albumin Triglycerides LDL Cholesterol Direct HDL Cholesterol Urine Creatinine Urine Total Protein
[2022-07-27] MEDS: INSULIN REGULAR, HUMAN 100 UNITS/1 ML SUB-Q SCH ×2 (12:50→18:35)
--- NOTE | 2022-07-27 13:05 | Progress Note ---
Assessment and Plan Patient is 77-year-old male with a past medical history of hypertension, paroxysmal A. 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 Status post cardiac arrest Acute respiratory failure-pulmonology following AMS-neurology following DKA Acute renal failure-nephrology following Sepsis PAF-on anticoagulation Hypertension Diabetes History of CVA 2019 Echo 07/26/2022-technically difficult study due to patient on ventilator, poor endocardial definition. Very grossly in subcostal views probably normal left ventricular systolic function EF 50 to 60% no pericardial effusion. Consider repeating echo when patient is more stable and off ventilator Plan: EKG showed A. fib A. fib 118 with no acute ischemic changes. Troponin noted to be minimally elevated Suspect troponin elevation in setting of sepsis, acute renal failure, and DKA S/p cardiac arrest with unknown rhythm in setting of sepsis, acute renal failure, DKA Patient A. fib with RVR Continue amiodarone drip Patient will eventually need anticoagulation recommend heparin drip however discussed with neurology who would like to hold anticoagulation at this time. Initial anticoagulation once cleared by neurology Recommend weaning pressors as tolerated No beta-blockers due to patient requiring pressor Guarded prognosis Patient seen in conjunction with Dr. Skinner who agrees this plan of care 30 minutes of critical care time spent in care and coordination of patient - Patient Problems (1) History of CVA (cerebrovascular accident) Current Visit: Yes Status: Acute (2) Acute respiratory failure Current Visit: Yes Status: Acute (3) Cardiac arrest Current Visit: Yes Status: Acute (4) DKA (diabetic ketoacidosis) Current Visit: Yes Status: Acute (5) Leukocytosis Current Visit: Yes Status: Acute (6) Atrial fibrillation with RVR Current Visit: No Status: Acute (7) HLD (hyperlipidemia) Current Visit: No Status: Acute (8) HTN (hypertension) Current Visit: No Status: Acute Subjective Date of service: 07/27/22 Principal diagnosis: Hypernatremia, ARF,DKA Interval history: Patient remains intubated unresponsive Currently not on telemetry however previously A. fib 90s to 100s Objective Vital Signs Temp Pulse Pulse Resp BP Pulse Ox 07/27/22 13:00 100 H 28 H 123/64 100 07/27/22 12:45 98 H 24 121/68 100 07/27/22 12:30 98 H 26 H 123/70 100 07/27/22 12:15 97 H 27 H 124/68 100 07/27/22 12:00 100.2 F H 102 H 99 H 31 H 124/74 100 07/27/22 11:45 100 H 30 H 136/71 100 07/27/22 11:30 111 H 32 H 133/64 100 07/27/22 11:15 110 H 30 H 100 07/27/22 11:02 90 24 100 07/27/22 10:45 78 23 105/72 100 07/27/22 10:30 62 20 92/57 100 07/27/22 10:16 18 86/49 100 07/27/22 10:00 78 22 86/49 100 07/27/22 09:46 28 H 86/49 100 07/27/22 09:30 32 H 86/49 07/27/22 09:16 55 L 18 84/52 99 07/27/22 09:00 55 L 16 113/70 99 07/27/22 08:53 100 H 113/70 96 07/27/22 08:45 79 18 113/70 100 07/27/22 08:30 94 H 19 107/66 100 07/27/22 08:15 70 24 109/67 100 07/27/22 08:00 100.1 F H 61 73 25 H 86/65 100 07/27/22 07:45 65 23 99/67 98 07/27/22 07:30 70 22 112/61 99 07/27/22 07:15 43 L 26 H 106/55 100 07/27/22 07:00 87 27 H 100/67 100 07/27/22 06:45 107 H 19 100/67 100 07/27/22 06:30 77 20 144/120 100 07/27/22 06:15 108 H 20 86/57 100 07/27/22 06:00 119 H 23 183/140 100 07/27/22 05:46 120 H 25 H 183/140 99 07/27/22 05:30 126 H 25 H 164/105 07/27/22 05:16 109 H 26 H 109/64 100 07/27/22 05:00 134 H 29 H 109/64 100 07/27/22 04:45 108 H 27 H 99/68 07/27/22 04:40 108 H 109/99 100 07/27/22 04:30 116 H 28 H 109/66 100 07/27/22 04:15 109 H 30 H 100/67 07/27/22 04:00 99.9 F H 118 H 27 H 91/62 99 07/27/22 03:45 109 H 26 H 96/68 100 07/27/22 03:30 110 H 29 H 99/65 100 07/27/22 03:15 110 H 21 100/66 100 07/27/22 03:13 109 H 120 H 26 H 100 07/27/22 03:00 109 H 30 H 96/67 07/27/22 02:45 126 H 28 H 121/62 100 07/27/22 02:30 129 H 37 H 119/71 100 07/27/22 02:15 109 H 22 99/66 07/27/22 02:00 123 H 22 107/69 100 07/27/22 01:45 127 H 29 H 101/73 100 07/27/22 01:30 127 H 22 109/74 100 07/27/22 01:16 120 H 21 93/64 100 07/27/22 01:00 125 H 37 H 107/65 100 07/27/22 00:45 128 H 22 116/76 100 07/27/22 00:43 119 H 107/77 100 07/27/22 00:30 118 H 25 H 107/77 07/27/22 00:15 121 H 25 H 107/70 100 07/27/22 00:00 109 H 124 H 25 H 118/84 100 07/26/22 23:45 117 H 19 123/79 07/26/22 23:31 100.1 F H 07/26/22 23:30 128 H 24 115/76 07/26/22 23:15 126 H 28 H 113/78 99 07/26/22 23:11 107 H 07/26/22 23:01 108 H 27 H 121/80 100 07/26/22 23:00 107 H 28 H 121/80 100 07/26/22 22:46 128 H 28 H 107/58 99 07/26/22 22:45 119 H 28 H 107/58 99 07/26/22 22:37 118 H 41 H 106/72 99 07/26/22 22:31 120 H 29 H 106/72 99 07/26/22 22:15 128 H 26 H 128/98 99 07/26/22 22:01 109 H 24 105/66 98 07/26/22 21:45 119 H 24 117/61 07/26/22 21:31 132 H 27 H 128/98 07/26/22 21:15 109 H 29 H 117/61 99 07/26/22 21:00 118 H 33 H 115/63 07/26/22 20:45 112 H 32 H 123/69 07/26/22 20:30 117 H 30 H 111/68 07/26/22 20:15 111 H 29 H 115/75 100 07/26/22 20:01 117 H 38 H 112/53 07/26/22 20:00 118 H 27 H 100 07/26/22 19:45 126 H 25 H 105/75 100 07/26/22 19:30 112 H 29 H 96/71 07/26/22 19:23 100.5 F H 07/26/22 19:21 113 H 07/26/22 19:15 109 H 22 89/61 99 07/26/22 19:14 100.5 F H 07/26/22 19:00 124 H 31 H 105/72 07/26/22 18:51 121 H 26 H 109/76 07/26/22 18:41 120 H 29 H 103/66 07/26/22 18:31 128 H 26 H 103/66 07/26/22 18:21 123 H 33 H 151/91 07/26/22 18:11 126 H 21 137/78 100 07/26/22 18:00 116 H 16 137/78 07/26/22 17:51 114 H 27 H 139/85 07/26/22 17:41 115 H 21 146/66 07/26/22 17:31 111 H 19 146/66 07/26/22 17:21 117 H 39 H 137/98 07/26/22 17:11 110 H 24 143/71 100 07/26/22 17:00 110 H 26 H 143/71 07/26/22 16:51 115 H 26 H 145/75 07/26/22 16:41 121 H 29 H 144/79 99 07/26/22 16:30 124 H 34 H 144/79 07/26/22 16:21 113 H 27 H 128/85 100 07/26/22 16:15 111 H 128/85 99 07/26/22 16:11 142 H 31 H 131/45 99 07/26/22 16:00 126 H 114 H 28 H 145/91 100 07/26/22 15:51 112 H 29 H 137/83 99 07/26/22 15:41 115 H 32 H 132/78 99 07/26/22 15:30 113 H 29 H 132/78 98 07/26/22 15:21 125 H 29 H 131/45 99 07/26/22 15:10 108 H 26 H 116/78 98 07/26/22 15:00 120 H 27 H 116/78 07/26/22 14:51 111 H 28 H 94/64 97 07/26/22 14:41 111 H 28 H 102/71 98 07/26/22 14:30 111 H 28 H 102/71 100 07/26/22 14:21 111 H 24 100/73 97 07/26/22 14:11 109 H 25 H 103/72 98 07/26/22 14:00 109 H 27 H 103/72 100 07/26/22 13:51 111 H 30 H 95/69 97 07/26/22 13:41 111 H 28 H 110/66 97 07/26/22 13:30 106 H 26 H 110/66 99 07/26/22 13:21 106 H 27 H 103/76 98 07/26/22 13:11 108 H 26 H 97/69 97 07/26/22 13:07 111 H 97/69 97 - Physical Examination General: Other (Intubated) HEENT: Positive: Mucus Membranes Dry Neck: Positive: trachea midline Cardiac: Positive: irregularly irregular Lungs: Positive: Ventilated Respirations Neuro: Positive: Other (Unable to assess) Abdomen: Positive: Soft Skin: Positive: Cool. Negative: Rash, Suspicious Lesions, Ulceration Extremities: Present: upper extr. pulses, Cool - Labs and Meds Cardiac Enzymes 07/27/22 Range/Units 03:50 AST 64 H (5-40) units/L CBC 07/27/22 Range/Units 03:50 WBC 15.4 H (4.5-11.0) K/mm3 RBC 4.62 (3.65-5.03) M/mm3 Hgb 13.3 D (11.8-15.2) gm/dl Hct 41.7 D (35.5-45.6) % Plt Count 60 L (140-440) K/mm3 Comprehensive Metabolic Panel 07/26/22 07/26/22 07/27/22 Range/Units 15:36 21:30 00:45 Sodium 160 H 155 H 155 H (137-145) mmol/L Potassium 3.6 4.0 4.2 (3.6-5.0) mmol/L Chloride 126.2 H 123.5 H 124.2 H (98-107) mmol/L Carbon Dioxide 18 L 16 L 19 L (22-30) mmol/L BUN 59 H 53 H 53 H (9-20) mg/dL Creatinine 3.2 H 2.9 H 2.5 H (0.8-1.3) mg/dL Glucose 227 H 185 H 168 H (75-100) mg/dL Calcium 7.1 L 7.0 L 6.7 L (8.4-10.2) mg/dL AST (5-40) units/L ALT (7-56) units/L Alkaline Phosphatase (35-129) units/L Total Protein (6.3-8.2) g/dL Albumin (3.9-5) g/dL 07/27/22 Range/Units 03:50 Sodium 154 H (137-145) mmol/L Potassium 4.1 (3.6-5.0) mmol/L Chloride 123.0 H (98-107) mmol/L Carbon Dioxide 19 L (22-30) mmol/L BUN 55 H (9-20) mg/dL Creatinine 2.8 H (0.8-1.3) mg/dL Glucose 153 H (75-100) mg/dL Calcium 6.8 L (8.4-10.2) mg/dL AST 64 H (5-40) units/L ALT 31 (7-56) units/L Alkaline Phosphatase 61 (35-129) units/L Total Protein 4.1 L D (6.3-8.2) g/dL Albumin 2.1 L (3.9-5) g/dL - Imaging and Cardiology EKG: report reviewed, image reviewed Echo: report reviewed - Telemetry EKG Rhythm: Atrial Fibrillation - EKG Supraventricular dysrhythmia: atrial fibrillation
--- NOTE | 2022-07-27 14:09 | Progress Note ---
Assessment and Plan Assessment and plan: Assessment/ Plan This is a 77-year-old male with DM, paroxysmal atrial fibrillation, HTN, CVA (2020) admitted s/p cardiac arrest with acute hypoxic respiratory failure and DKA Neuro: Acute metabolic encephalopathy, hepatic encephalopathy, r/o ALEC and subclinical status epilepticus, h/o CVA (2019) -Sluggish pupils, no cough/gag, periodic spontaneous respiration -Neurology consulted, appreciate recommendations -Initial CT head with no acute abnormality -Repeat CT head without contrast of preferably MRI brain without contrast when clinically stable -EEG completed -Per neurology aim for euglycemia and permissive hypertension for now -Ammonia 64 Cardiac: S/p cardiac arrest, h/o hypertension and paroxysmal atrial fibrillation, HLD -Patient suffered cardiac arrest on 07/25 in the ED and then was noted to be in A. fib with RVR -Amiodarone drip -Cardiology consulted, appreciate recommendations -Blood pressure monitoring per protocol -Vasopressor support with Levophed and vasopressin -MAP goal greater than 65 -Echocardiogram shows EF 50 to 60%, no pericardial effusion -Lipitor Respiratory: Acute hypoxic respiratory failure -CCM consulted, appreciate recommendations -Intubated on 07/25 with a 8.00 ETT in the ED -A.m. vent settings: Assist-control rate 20, tidal volume 450, PEEP 6, FiO2 40% -See RT notes for titration -A.m. ABG and CXR noted -VAP bundle -SPO2 monitoring GI: Protein calorie malnutrition -NTR consult for tube feeding -24-hour +5708 mL -PPI -D5 IVF : Hypernatremia, metabolic acidosis, acute kidney injury likely secondary to vasomotor nephropathy, hypophosphatemia -S/p 4 L LR bolus -Nephrology consulted, appreciate recommendations -Serum creatinine 03/08/2020 was 1.3 -s/p IVF -Monitor intake and output -Renally dose medications -Avoid nephrotoxic medications -FeNa 1.8% -FWF 150ml q 4 hr -Renal ultrasound noted -Replete potassium ID: r/o sepsis -Hypotension, acute kidney injury, acute respiratory failure, lactic acidosis -Antibiotic therapy with cefepime and vancomycin -Solu-Cortef 100 mg every 8 -f/u blood culture -Monitor WBC and temperature curve Endo: DKA, h/o DM -Presented with anion gap of 21, glucose of 761, VBG 7.362 -s/p Insulin drip -Accu-Cheks q6hr -SSI -Long-acting insulin when able -Hemaglobin A1C 12.3 Heme: Leukocytosis, thrombocytopenia -Trend CBC -Transfuse hemoglobin less than 7 -SCDs to BLE while in bed The high probability of a clinically significant, sudden or life threatening deterioration of the [multi] system(s) required my full and direct attention, intervention and personal management. The aggregate critical care time was [60] minutes. This time is in addition to time spent performing reported procedures but includes the following: [x] Data Review and interpretation [x] Patient assessment and monitoring of vital signs [x] Documentation [x] Medication orders and management Disposition Plan: icu Total Time Spent with Patient (Minutes): 60 History Interval history: This is a 77-year-old male who is half-way patient at [facility] with DM, paroxysmal atrial fibrillation, HTN, CVA (2020) presents the emergency department on 07/26 via EMS with hypoglycemia and unresponsiveness. In the emergency department patient was deciding 7% on room air and was placed on nonrebreather but sats have increased to greater than 81% and the patient was obtunded therefore ED physician decided to intubate the patient. Per documentation after intubation patient went into PEA arrest and ACLS was i nitiated and ROSC was achieved after approximately 13 minutes. Work-up in the emergency department revealed leukocytosis, hyponatremia 155, elevated BUN/creatinine at 3.5/74, anion gap metabolic acidosis and hyperglycemia 734. Patient was admitted to the hospital service with consults to cardiology, CCM and nephrology on DKA protocol on mechanical ventilation. Hospital course to date: 07/26: Patient is on any sedation, very sluggish pupillary response, no cough/gag noted, no seizure activity. Neurology recs repeat CT head without contrast or MRI brain without contrast when clinically stable. Patient also had a EEG completed today. Patient is currently maxed on Levophed and vasopressin. Given several LR boluses today. Antibiotics broadened and stress dose steroids added. 07/27: Weaning pressors, phosphorus repleted, SSI and long-acting insulin initiated, tube feeding initiated. Patient now has a hypoactive cough/gag. CT head pending. LR bolus. Thrombocytopenia noted. Cardiology would like to start heparin drip due to atrial fibrillation however would like neurology input prior to. Hospitalist Physical - Constitutional Vitals: Temp Pulse Resp BP Pulse Ox 100.2 F H 102 H 29 H 117/65 100 07/27/22 12:00 07/27/22 14:00 07/27/22 14:00 07/27/22 14:00 07/27/22 14:00 General appearance: Present: other (Intubated) - EENT Eyes: Absent: PERRL (Pupils very sluggish) ENT: poor dentition - Neck Neck: Present: normal ROM - Respiratory Respiratory effort: normal Respiratory: bilateral: diminished - Cardiovascular Rhythm: irregularly irregular Heart Sounds: Present: S1 & S2. Absent: systolic murmur, diastolic murmur - Extremities Extremities: no ischemia, pulses intact, pulses symmetrical, normal temperature, normal color Extremity abnormal: edema Peripheral Pulses: within normal limits - Abdominal General gastrointestinal: soft, non-tender, non-distended, normal bowel sounds - Integumentary Integumentary: Present: warm, dry - Neurologic Neurologic: other (Very very weak cough/gag, pupils very sluggish) - Allied Health Allied health notes reviewed: nursing, RT, social work HEART Score - HEART Score Troponin: Troponin T 0.049 ng/mL (0.00-0.029) H D 07/26/22 15:36 Results - Labs CBC & Chem 7: 07/27/22 03:50 07/27/22 03:50 Labs: Laboratory Last Values WBC 15.4 K/mm3 (4.5-11.0) H 07/27/22 03:50 RBC 4.62 M/mm3 (3.65-5.03) 07/27/22 03:50 Hgb 13.3 gm/dl (11.8-15.2) D 07/27/22 03:50 Hct 41.7 % (35.5-45.6) D 07/27/22 03:50 MCV 90 fl (84-94) 07/27/22 03:50 MCH 29 pg (28-32) 07/27/22 03:50 MCHC 32 % (32-34) 07/27/22 03:50 RDW 15.3 % (13.2-15.2) H 07/27/22 03:50 Plt Count 60 K/mm3 (140-440) L 07/27/22 03:50 Lymph % (Auto) 21.7 % (13.4-35.0) 07/25/22 19:37 [place] % (Auto) 7.3 % (0.0-7.3) 07/25/22 19:37 Eos % (Auto) 0.0 % (0.0-4.3) 07/25/22 19:37 Baso % (Auto) 0.3 % (0.0-1.8) 07/25/22 19:37 Lymph # (Auto) 4.1 K/mm3 (1.2-5.4) 07/25/22 19:37 [place] # (Auto) 1.4 K/mm3 (0.0-0.8) H 07/25/22 19:37 Eos # (Auto) 0.0 K/mm3 (0.0-0.4) 07/25/22 19:37 Baso # (Auto) 0.1 K/mm3 (0.0-0.1) 07/25/22 19:37 Add Manual Diff Complete 07/27/22 03:50 Total Counted 100 07/27/22 03:50 Seg Neutrophils % 70.7 % (40.0-70.0) H 07/25/22 19:37 Seg Neuts % (Manual) 78.0 % (40.0-70.0) H 07/27/22 03:50 Band Neutrophils % 16.0 % 07/27/22 03:50 Lymphocytes % (Manual) 3.0 % (13.4-35.0) L 07/27/22 03:50 Reactive Lymphs % (Man) 0 % 07/27/22 03:50 Monocytes % (Manual) 2.0 % (0.0-7.3) 07/27/22 03:50 Eosinophils % (Manual) 0 % (0.0-4.3) 07/27/22 03:50 Basophils % (Manual) 0 % (0.0-1.8) 07/27/22 03:50 Metamyelocytes % 1.0 % 07/27/22 03:50 Myelocytes % 0 % 07/27/22 03:50 Promyelocytes % 0 % 07/27/22 03:50 Blast Cells % 0 % 07/27/22 03:50 Nucleated RBC % Not Reportable 07/27/22 03:50 Seg Neutrophils # 13.3 K/mm3 (1.8-7.7) H 07/25/22 19:37 Seg Neutrophils # Man 12.0 K/mm3 (1.8-7.7) H 07/27/22 03:50 Band Neutrophils # 2.5 K/mm3 07/27/22 03:50 Lymphocytes # (Manual) 0.5 K/mm3 (1.2-5.4) L 07/27/22 03:50 Abs React Lymphs (Man) 0.0 K/mm3 07/27/22 03:50 Monocytes # (Manual) 0.3 K/mm3 (0.0-0.8) 07/27/22 03:50 Eosinophils # (Manual) 0.0 K/mm3 (0.0-0.4) 07/27/22 03:50 Basophils # (Manual) 0.0 K/mm3 (0.0-0.1) 07/27/22 03:50 Metamyelocytes # 0.2 K/mm3 07/27/22 03:50 Myelocytes # 0.0 K/mm3 07/27/22 03:50 Promyelocytes # 0.0 K/mm3 07/27/22 03:50 Blast Cells # 0.0 K/mm3 07/27/22 03:50 WBC Morphology Not Reportable 07/27/22 03:50 Hypersegmented Neuts Not Reportable 07/27/22 03:50 Hyposegmented Neuts Not Reportable 07/27/22 03:50 Hypogranular Neuts Not Reportable 07/27/22 03:50 Smudge Cells Not Reportable 07/27/22 03:50 Toxic Granulation Not Reportable 07/27/22 03:50 Toxic Vacuolation Not Reportable 07/27/22 03:50 Dohle Bodies Not Reportable 07/27/22 03:50 Pelger-Huet Anomaly Not Reportable 07/27/22 03:50 Jay Rods Not Reportable 07/27/22 03:50 Platelet Estimate Consistent w auto 07/27/22 03:50 Clumped Platelets Not Reportable 07/27/22 03:50 Plt Clumps, EDTA Not Reportable 07/27/22 03:50 Large Platelets Not Reportable 07/27/22 03:50 Giant Platelets Not Reportable 07/27/22 03:50 Platelet Satelliting Not Reportable 07/27/22 03:50 Plt Morphology Comment Not Reportable 07/27/22 03:50 RBC Morphology Not Reportable 07/27/22 03:50 Dimorphic RBCs Not Reportable 07/27/22 03:50 Polychromasia Not Reportable 07/27/22 03:50 Hypochromasia Not Reportable 07/27/22 03:50 Poikilocytosis Not Reportable 07/27/22 03:50 Anisocytosis Not Reportable 07/27/22 03:50 Microcytosis Not Reportable 07/27/22 03:50 Macrocytosis Not Reportable 07/27/22 03:50 Spherocytes Not Reportable 07/27/22 03:50 Pappenheimer Bodies Not Reportable 07/27/22 03:50 Sickle Cells Not Reportable 07/27/22 03:50 Target Cells Not Reportable 07/27/22 03:50 Tear Drop Cells Not Reportable 07/27/22 03:50 Ovalocytes Not Reportable 07/27/22 03:50 Helmet Cells Not Reportable 07/27/22 03:50 Reynolds-Thruston Bodies Not Reportable 07/27/22 03:50 [place] Rings Not Reportable 07/27/22 03:50 Leonora Cells Not Reportable 07/27/22 03:50 Bite Cells Not Reportable 07/27/22 03:50 Crenated Cell Not Reportable 07/27/22 03:50 Elliptocytes Not Reportable 07/27/22 03:50 Acanthocytes (Spur) Not Reportable 07/27/22 03:50 Rouleaux Not Reportable 07/27/22 03:50 Hemoglobin C Crystals Not Reportable 07/27/22 03:50 Schistocytes Not Reportable 07/27/22 03:50 Malaria parasites Not Reportable 07/27/22 03:50 P[place]e Bodies Not Reportable 07/27/22 03:50 Hem Pathologist Commnt No 07/27/22 03:50 ABG pH 7.418 pH Units (7.350-7.450) 07/27/22 03:55 ABG pCO2 21.1 mm Hg 07/27/22 03:55 ABG pO2 110.1 mm Hg (80.0-90.0) H 07/27/22 03:55 ABG HCO3 13.3 mmol/L (20.0-26.0) L 07/27/22 03:55 ABG O2 Saturation 98.2 % (95.0-99.0) 07/27/22 03:55 ABG O2 Content 17.9 (0.0-44) 07/27/22 03:55 ABG Base Excess -9.0 mmol/L (-2.0-3.0) L 07/27/22 03:55 ABG Hemoglobin 13.1 gm/dl (14.0-18.0) L 07/27/22 03:55 ABG Carboxyhemoglobin 1.2 % (0.0-5.0) 07/27/22 03:55 ABG Methemoglobin 0.5 % (0.0-1.5) 07/27/22 03:55 VBG pH 7.362 (7.320-7.420) 07/25/22 19:37 Oxyhemoglobin 96.5 % (95.0-99.0) 07/27/22 03:55 FiO2 40 % 07/27/22 03:55 Sodium 154 mmol/L (137-145) H 07/27/22 03:50 Potassium 4.1 mmol/L (3.6-5.0) 07/27/22 03:50 Chloride 123.0 mmol/L (98-107) H 07/27/22 03:50 Carbon Dioxide 19 mmol/L (22-30) L 07/27/22 03:50 Anion Gap 16 mmol/L 07/27/22 03:50 BUN 55 mg/dL (9-20) H 07/27/22 03:50 Creatinine 2.8 mg/dL (0.8-1.3) H 07/27/22 03:50 Estimated GFR 22 ml/min 07/27/22 03:50 BUN/Creatinine Ratio 20 % 07/27/22 03:50 Glucose 153 mg/dL (75-100) H 07/27/22 03:50 POC Glucose 163 mg/dL (70-105) H 07/27/22 10:49 Hemoglobin A1c 12.3 % (4-6) H 07/27/22 12:13 Lactic Acid 9.70 mmol/L (0.7-2.0) H* 07/26/22 15:36 Calcium 6.8 mg/dL (8.4-10.2) L 07/27/22 03:50 Phosphorus 1.30 mg/dL (2.5-4.5) L 07/27/22 03:50 Magnesium 2.30 mg/dL (1.7-2.3) 07/27/22 03:50 Total Bilirubin 0.30 mg/dL (0.1-1.2) 07/27/22 03:50 AST 64 units/L (5-40) H 07/27/22 03:50 ALT 31 units/L (7-56) 07/27/22 03:50 Alkaline Phosphatase 61 units/L (35-129) 07/27/22 03:50 Ammonia 64.0 umol/L (25-60) H 07/25/22 19:37 Total Creatine Kinase 158 units/L (55-170) 07/25/22 19:37 CK-MB (CK-2) < 1.0 ng/mL (0.0-4.0) 07/25/22 19:37 CK-MB (CK-2) Rel Index 0.6 (0-4) 07/25/22 19:37 Troponin T 0.049 ng/mL (0.00-0.029) H D 07/26/22 15:36 Total Protein 4.1 g/dL (6.3-8.2) L D 07/27/22 03:50 Albumin 2.1 g/dL (3.9-5) L 07/27/22 03:50 Albumin/Globulin Ratio 1.1 % 07/27/22 03:50 Triglycerides 362 mg/dL (2-149) H 07/25/22 19:37 Cholesterol 126 mg/dL (50-199) 07/25/22 19:37 LDL Cholesterol Direct 44 mg/dL (50-130) L 07/25/22 19:37 HDL Cholesterol 34 mg/dL (40-59) L 07/25/22 19:37 Cholesterol/HDL Ratio 3.70 % 07/25/22 19:37 TSH 2.170 mlU/mL (0.270-4.200) 07/25/22 19:37 Free T4 1.18 ng/dL (0.76-1.46) 07/25/22 19:37 Urine Color Lin (Yellow) 07/26/22 08:31 Urine Turbidity Cloudy (Clear) 07/26/22 08:31 Specific [place] (Man) 1.010 (1.003-1.030) 07/26/22 08:31 Ur Protein (Man) <30 mg dl mg/dL (Negative) 07/26/22 08:31 Ur Ketones (Man) Negative (Negative) 07/26/22 08:31 Ur Nitrite (Man) Negative (Negative) 07/26/22 08:31 Ur Reducing Substances Not Reportable 07/26/22 08:31 Urine Bilirubin (Man) Negative (Negative) 07/26/22 08:31 Urine Ictotest Not Reportable 07/26/22 08:31 Leukocyte Esterase (Man) Trace (Negative) 07/26/22 08:31 Urine WBC (Auto) < 1.0 /HPF (0.0-6.0) 07/26/22 08:31 Urine RBC (Auto) 1.0 /HPF (0.0-6.0) 07/26/22 08:31 U Epithel Cells (Auto) 3.0 /HPF (0-13.0) 07/26/22 08:31 Urine RBC (Manual) 5-10 (Negative) 07/26/22 08:31 Ur Renal Epithelial Cell 3 /LPF 07/26/22 08:31 Urine Mucus Few /HPF 07/26/22 08:31 Urine Creatinine 118.4 mg/dL (0.1-20.0) H 07/26/22 18:10 Protein/Creatinin Ratio 1.23 07/26/22 18:10 Urine Sodium 108 mmol/L 07/26/22 18:10 Urine Total Protein 146 mg/dL (5-11.8) H 07/26/22 18:10 Microbiology: Microbiology 07/25/22 22:10 Peripheral/Venous Blood Culture - Preliminary NO GROWTH AFTER 24 HOURS 07/25/22 21:08 Peripheral/Venous Blood Culture - Preliminary NO GROWTH AFTER 24 HOURS Yañez/IV: Voiding Method Indwelling Catheter Active Medications - Current Medications Current Medications: Generic Name Dose Route Start Last Admin Trade Name Freq PRN Reason Stop Dose Admin Acetaminophen 650 mg 07/26/22 00:31 07/26/22 19:26 Acetaminophen 325 Mg Tab PO 650 mg Q4H PRN Administration Pain MILD(1-3)/Fever >100.5/LANTIGUA Acetaminophen 650 mg 07/26/22 02:04 Acetaminophen 650 Mg Rect Supp [place] Q4H PRN Pain, Mild (1-3) Albuterol 2.5 mg 07/26/22 00:31 Albuterol 2.5 Mg/3 Ml Nebu IH Q3HRT PRN Shortness Of Breath Atorvastatin Calcium 40 mg 07/26/22 22:00 07/26/22 20:59 Atorvastatin 40 Mg Tab PO 40 mg QHS LIZZIE Administration Dextrose 50 ml 07/27/22 09:25 Dextrose 50% In Water (25gm) 50 Ml Syringe IV Q30MIN PRN Hypoglycemia Protocol Famotidine 10 mg 07/28/22 10:00 Famotidine 10 Mg Tab FEEDTUBE BID LIZZIE Hydrocortisone Sodium Succinate 100 mg 07/26/22 14:00 07/27/22 13:05 Hydrocortisone Sod Succ 100 Mg/2 Ml Vial IV 100 mg Q8HR LIZZIE Administration NORepinephrine/NS 8 MG-250 ML 8 mg in 250 mls @ 3.75 mls/hr 07/25/22 23:00 07/27/22 14:06 Norepinephrine/Ns 8 Mg-250 Ml (Double Conc) IV 4 mcg/min TITRATE LIZZIE 7.5 mls/hr Titration Protocol 2 MCG/MIN Amiodarone HCl 900 mg/ 500 mls @ 33.333 mls/hr 07/26/22 04:10 07/26/22 21:46 Dextrose IV 0.5 mg/min DIRECT LIZZIE 16.667 mls/hr Administration Protocol 1 MG/MIN Vasopressin 20 unit/ Sodium 101 mls @ 9.09 mls/hr 07/26/22 05:00 07/27/22 14:06 Chloride IV 0 units/min TITR LIZZIE 0 mls/hr Titration Protocol 0.03 UNITS/MIN Cefepime HCl 2 gm in 100 mls @ 200 mls/hr 07/27/22 11:00 07/27/22 10:45 Cefepime/Ns 2 Gm/100 Ml IV 200 mls/hr Q24H LIZZIE Administration Protocol Insulin Glargine 10 units 07/27/22 10:00 07/27/22 10:46 Insulin Glargine 100 Units/Ml SUB-Q 10 units DAILY LIZZIE Administration Insulin Human Regular 0 units 07/27/22 12:00 07/27/22 12:50 Insulin Regular, Human 100 Units/1 Ml SUB-Q 3 units Q6H LIZZIE Administration Protocol Multi-Ingred Cream/Lotion/Oil/Oint 1 applic 07/27/22 03:17 07/27/22 03:35 Mineral Oil/Petrolatum, White Ophth Oint 3.5 Gm OU 1 applic PRN PRN Administration Dry Eye(s) Nitroglycerin 0.4 mg 07/26/22 00:31 Nitroglycerin 0.4 Mg Tab Subl SL Q5M PRN Chest Pain Ondansetron HCl 4 mg 07/26/22 00:31 Ondansetron 4 Mg/2 Ml Inj IV Q8H PRN Nausea And Vomiting Sodium Chloride 10 ml 07/26/22 10:00 07/27/22 10:46 Sodium Chloride 0.9% 10 Ml Flush Syringe IV 10 ml BID LIZZIE Administration Sodium Chloride 10 ml 07/26/22 00:31 Sodium Chloride 0.9% 10 Ml Flush Syringe IV PRN PRN LINE FLUSH Nutrition/Malnutrition Assess - Dietary Evaluation Nutrition/Malnutrition Findings: Nutrition Notes Start: 07/26/22 10:25 Freq: Status: Active Protocol: Document 07/27/22 10:43 ARCENIO (Rec: 07/27/22 10:51 ARCENIO [id number]) Nutrition Notes Need for Assessment generated from: MD Order Initial or Follow up Reassessment Current Diagnosis Acute Kidney Injury,Diabetes, Hypertension,Respiratory Failure,Stroke Other Pertinent Diagnosis DKA, s/p PEA/ROSC, Metabolic Encephalopathy, Anoxic Brain Injury, Atrial Fi Current Diet TF-Vital AF 1.2 David @ 55 ml/hr (from Labs/Tests 07/27: Na 154, Cl 123, CO2 19, BUN 55, Crea 2.8, Glu 153. Pertinent Medications 07/27: Astrovastatin, Norepinephrine 8mg, Vasopressin 20U, others nutritionally unremarkable. Height 5 ft 5 in Weight 49.8 kg [place] Body Weight (kg) 61.81 BMI 18.2 Weight change and time frame No body weight change reported in 1 day. Weight Status Underweight Subjective/Other Information RD consult for write/manage TF assessment. Pt continues on NPO. I will prescribe TF to provide Pt with energy/protein needs during LOS. Pt continues on Mechanical Ventilation, O2 saturation @ 100%, according to Physical Assessment History notes. Percent of energy/protein needs met: Prescribed TF-Vital AF 1.2 David @ 55 ml/hr provides for energy/protein needs (1,584 Kcal/99 g) during LOS, 103% Kcal; 100% AA. Burn Absent Trauma Absent GI Symptoms Diarrhea,Other Food Allergy No Skin Integrity/Comment Assessment WNL. Current % PO Other Minimum of two criteria No Fluid Accumulation N/A Reduced [employer] Strength N/A (non-severe) Protein-Calorie Malnutrition N\A #2 Nutrition Diagnosis Underweight Diagnosis Progress(for reassessment Continues documentation) #1 Nutrition Diagnosis Inadequate oral intake Diagnosis Progress(for reassessment Continues documentation) Is patient on ventilator? Yes Is Patient Ambulatory and/or Out of Bed No [facility] 1398.456 Kcal/Kg value to use for calculation 31 Approximate Energy Requirements Using 1544 kcal/Kg Calculation Used for Recommendations Kcal/kg Additional Notes Protein: 1.2-2 g/Kg ABW; 60- 100 g/day. Fluids: 1 ml/Kcal, or as per MD. Nutrition Intervention Nutrition Support: Start Vital AF 1.2 David @ 55 ml /hr. Flush: 80 ml water Q 4 hr, or as per MD. Kcal 1,584 Protein (gm) 99 Carbohydrates (gm) 146 Fat (gm) 71 Fluid (mL) 7 Fiber (gm) 107 % RDI: 103% Kcal; 100% AA. Goal #1 Provide at least 75% of energy /protein needs through Enteral Feeding during LOS. Goal #2 Adjust the dietary intervention to better serve Pt's energy/protein needs and clinical conditions during LOS . Follow-Up By: 07/28/22 Additional Comments Start monitoring TF tolerance and BM.
--- NOTE | 2022-07-27 18:01 | Cat Scan Report ---
CT BRAIN: 07/27/2022 INDICATION / CLINICAL INFORMATION: s/p cardiac arrest. COMPARISON: CT brain 07/25/2022 FINDINGS: BRAIN/INTRACRANIAL STRUCTURES: Unenhanced CT images of the brain demonstrate no evidence of acute abn ormality. 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 There is no evidence of hemorrhage or mass. There are no abnormal extra-axial fluid collections. EXTRACRANIAL STRUCTURES: Unremarkable. IMPRESSION: No acute abnormality. Chronic ischemic and age-related changes. No change when compared to 07/25/[address] scans at this location are performed using dose reduction to ALARA by means of automated expos ure control. Signer Name: Drew Farris MD Signed: 07/27/2022 5:57 PM Workstation Name: [id number]
--- NOTE | 2022-07-27 20:14 | Progress Note ---
Assessment and Plan 77 yo male with htn, dm, cadx, who presents with respiratory distress and s/p cardiac arrest (asystole; rosc ~13 mins). Currently noted with severe encephalopathy. 1. Anoxic / Hypoxic Brain Injury / Encephalopathy - concern is raised based on clinical hx and exam; repeat ct head wo contrast noted with hypodensity at right mca territory; recommend mr brain wo contrast (when clinically stable) prior to neuro clearance for anticoagulation (per cardiology rec). 2. Status Epilepticus (subclinical) - eeg report pending. 3. Acute Metabolic Encephalopaty - in the setting of kidney injury / respiratory distress. 4. Hypertension - aim for permissive htn for now. 5. DM - aim for euglycemia. 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; eeg report pending; Objective - Vital Sign Vital Signs - 12hr 07/27/22 07/27/22 07/27/22 08:15 08:30 08:45 Temperature Pulse Rate 70 94 H 79 Pulse Rate [ From Monitor] Respiratory 24 19 18 Rate Blood Pressure 109/67 107/66 113/70 O2 Sat by Pulse 100 100 100 Oximetry 07/27/22 07/27/22 07/27/22 08:53 09:00 09:16 Temperature Pulse Rate 100 H 55 L 55 L Pulse Rate [ From Monitor] Respiratory 16 18 Rate Blood Pressure 113/70 113/70 84/52 O2 Sat by Pulse 96 99 99 Oximetry 07/27/22 07/27/22 07/27/22 09:30 09:46 10:00 Temperature Pulse Rate 78 Pulse Rate [ From Monitor] Respiratory 32 H 28 H 22 Rate Blood Pressure 86/49 86/49 86/49 O2 Sat by Pulse 100 100 Oximetry 07/27/22 07/27/22 07/27/22 10:16 10:30 10:45 Temperature Pulse Rate 62 78 Pulse Rate [ From Monitor] Respiratory 18 20 23 Rate Blood Pressure 86/49 92/57 105/72 O2 Sat by Pulse 100 100 100 Oximetry 07/27/22 07/27/22 07/27/22 11:02 11:15 11:30 Temperature Pulse Rate 90 110 H 111 H Pulse Rate [ From Monitor] Respiratory 24 30 H 32 H Rate Blood Pressure 133/64 O2 Sat by Pulse 100 100 100 Oximetry 07/27/22 07/27/22 07/27/22 11:45 12:00 12:15 Temperature 100.2 F H Pulse Rate 100 H 102 H 97 H Pulse Rate [ 99 H From Monitor] Respiratory 30 H 31 H 27 H Rate Blood Pressure 136/71 124/74 124/68 O2 Sat by Pulse 100 100 100 Oximetry 07/27/22 07/27/22 07/27/22 12:30 12:45 13:00 Temperature Pulse Rate 98 H 98 H 100 H Pulse Rate [ From Monitor] Respiratory 26 H 24 28 H Rate Blood Pressure 123/70 121/68 123/64 O2 Sat by Pulse 100 100 100 Oximetry 07/27/22 07/27/22 07/27/22 13:15 13:30 13:45 Temperature Pulse Rate 100 H 100 H 101 H Pulse Rate [ From Monitor] Respiratory 28 H 30 H 29 H Rate Blood Pressure 108/67 109/63 122/63 O2 Sat by Pulse 100 100 100 Oximetry 07/27/22 07/27/22 07/27/22 14:00 14:15 14:30 Temperature Pulse Rate 102 H 103 H 103 H Pulse Rate [ From Monitor] Respiratory 29 H 28 H 28 H Rate Blood Pressure 117/65 117/65 98/63 O2 Sat by Pulse 100 100 100 Oximetry 07/27/22 07/27/22 07/27/22 14:45 15:00 15:35 Temperature Pulse Rate 104 H 97 H 98 H Pulse Rate [ From Monitor] Respiratory 29 H 32 H Rate Blood Pressure 106/58 119/68 119/68 O2 Sat by Pulse 100 100 100 Oximetry 07/27/22 07/27/22 07/27/22 15:45 16:00 16:01 Temperature 100.2 F H Pulse Rate 99 H 100 H 95 H Pulse Rate [ 101 H From Monitor] Respiratory 28 H 27 H 33 H Rate Blood Pressure 122/71 119/68 O2 Sat by Pulse 100 100 100 Oximetry 07/27/22 07/27/22 07/27/22 16:15 16:30 16:45 Temperature Pulse Rate 101 H 102 H 99 H Pulse Rate [ From Monitor] Respiratory 32 H 26 H 28 H Rate Blood Pressure 134/85 114/78 117/71 O2 Sat by Pulse 100 100 Oximetry 07/27/22 07/27/22 07/27/22 17:00 17:05 17:15 Temperature Pulse Rate 99 H 99 H 99 H Pulse Rate [ From Monitor] Respiratory 27 H 21 Rate Blood Pressure 109/73 109/73 112/75 O2 Sat by Pulse 100 99 100 Oximetry 07/27/22 07/27/22 07/27/22 17:30 17:45 18:00 Temperature Pulse Rate 99 H 100 H 99 H Pulse Rate [ From Monitor] Respiratory 28 H 27 H 27 H Rate Blood Pressure 114/79 114/77 114/74 O2 Sat by Pulse 99 100 100 Oximetry 07/27/22 07/27/22 07/27/22 18:15 18:30 18:45 Temperature Pulse Rate 98 H 99 H 98 H Pulse Rate [ From Monitor] Respiratory 22 29 H 28 H Rate Blood Pressure 114/75 116/78 118/69 O2 Sat by Pulse 100 100 100 Oximetry 07/27/22 07/27/22 07/27/22 19:00 19:14 19:15 Temperature Pulse Rate 100 H 101 H Pulse Rate [ 100 H From Monitor] Respiratory 26 H 18 Rate Blood Pressure 114/67 O2 Sat by Pulse 100 100 Oximetry 07/27/22 19:52 Temperature Pulse Rate 110 H Pulse Rate [ From Monitor] Respiratory Rate Blood Pressure 93/58 O2 Sat by Pulse 100 Oximetry - Laboratory Findings CBC and BMP: 07/27/22 03:50 07/27/22 03:50 Abnormal Lab Findings: Abnormal Labs 07/25/22 07/25/22 07/25/22 19:37 19:37 19:37 WBC 18.8 H RBC 6.31 H Hgb 18.8 H Hct 57.3 H MCHC RDW Plt Count Vance # (Auto) 1.4 H Seg Neutrophils % 70.7 H Seg Neuts % (Manual) Lymphocytes % (Manual) Seg Neutrophils # 13.3 H Seg Neutrophils # Man Lymphocytes # (Manual) ABG pH ABG pO2 ABG HCO3 ABG O2 Saturation ABG Base Excess ABG Hemoglobin Sodium 149 H Potassium Chloride 110.3 H Carbon Dioxide 18 L BUN 73 H Creatinine 3.3 H Glucose 761 H* POC Glucose Hemoglobin A1c Lactic Acid Calcium 10.6 H Phosphorus Magnesium 3.10 H AST 63 H ALT 64 H Ammonia Troponin T 0.072 H Total Protein 9.0 H Albumin Triglycerides 362 H LDL Cholesterol Direct 44 L HDL Cholesterol 34 L Urine Creatinine Urine Total Protein 07/25/22 07/25/22 07/25/22 19:37 21:08 22:10 WBC RBC Hgb Hct MCHC RDW Plt Count Vance # (Auto) Seg Neutrophils % Seg Neuts % (Manual) Lymphocytes % (Manual) Seg Neutrophils # Seg Neutrophils # Man Lymphocytes # (Manual) ABG pH ABG pO2 ABG HCO3 ABG O2 Saturation ABG Base Excess ABG Hemoglobin Sodium 155 H Potassium Chloride 113.1 H Carbon Dioxide 14 L BUN 74 H Creatinine 3.5 H Glucose 734 H* POC Glucose Hemoglobin A1c Lactic Acid 12.70 H* Calcium Phosphorus Magnesium AST ALT Ammonia 64.0 H Troponin T Total Protein Albumin Triglycerides LDL Cholesterol Direct HDL Cholesterol Urine Creatinine Urine Total Protein 07/25/22 07/25/22 07/26/22 22:20 23:29 00:13 WBC RBC Hgb Hct MCHC RDW Plt Count Vance # (Auto) Seg Neutrophils % Seg Neuts % (Manual) Lymphocytes % (Manual) Seg Neutrophils # Seg Neutrophils # Man Lymphocytes # (Manual) ABG pH 7.342 L ABG pO2 318.2 H ABG HCO3 14.4 L ABG O2 Saturation 99.5 H ABG Base Excess -9.4 L ABG Hemoglobin Sodium 157 H Potassium 3.1 L D Chloride 114.0 H Carbon Dioxide 21 L D BUN 72 H Creatinine 3.7 H Glucose 615 H* POC Glucose > 600 H Hemoglobin A1c Lactic Acid Calcium Phosphorus Magnesium AST ALT Ammonia Troponin T Total Protein Albumin Triglycerides LDL Cholesterol Direct HDL Cholesterol Urine Creatinine Urine Total Protein 07/26/22 07/26/22 07/26/22 00:13 00:38 00:39 WBC 21.4 H RBC 5.88 H Hgb 17.2 H Hct 55.0 H MCHC 31 L RDW 16.0 H Plt Count Vance # (Auto) Seg Neutrophils % Seg Neuts % (Manual) 77.0 H Lymphocytes % (Manual) 13.0 L Seg Neutrophils # Seg Neutrophils # Man 16.5 H Lymphocytes # (Manual) ABG pH ABG pO2 ABG HCO3 ABG O2 Saturation ABG Base Excess ABG Hemoglobin Sodium Potassium Chloride Carbon Dioxide BUN Creatinine Glucose POC Glucose 517 H Hemoglobin A1c Lactic Acid 9.10 H* Calcium Phosphorus Magnesium AST ALT Ammonia Troponin T Total Protein Albumin Triglycerides LDL Cholesterol Direct HDL Cholesterol Urine Creatinine Urine Total Protein 07/26/22 07/26/22 07/26/22 00:39 01:32 02:28 WBC RBC Hgb Hct MCHC RDW Plt Count Vance # (Auto) Seg Neutrophils % Seg Neuts % (Manual) Lymphocytes % (Manual) Seg Neutrophils # Seg Neutrophils # Man Lymphocytes # (Manual) ABG pH ABG pO2 ABG HCO3 ABG O2 Saturation ABG Base Excess ABG Hemoglobin Sodium Potassium Chloride Carbon Dioxide BUN Creatinine Glucose POC Glucose 460 H 237 H Hemoglobin A1c Lactic Acid Calcium Phosphorus 1.20 L D Magnesium 4.10 H AST ALT Ammonia Troponin T Total Protein Albumin Triglycerides LDL Cholesterol Direct HDL Cholesterol Urine Creatinine Urine Total Protein 07/26/22 07/26/22 07/26/22 03:03 03:07 04:11 WBC RBC Hgb Hct MCHC RDW Plt Count Vance # (Auto) Seg Neutrophils % Seg Neuts % (Manual) Lymphocytes % (Manual) Seg Neutrophils # Seg Neutrophils # Man Lymphocytes # (Manual) ABG pH ABG pO2 ABG HCO3 ABG O2 Saturation ABG Base Excess ABG Hemoglobin Sodium Potassium Chloride Carbon Dioxide BUN Creatinine Glucose POC Glucose 433 H 370 H 338 H Hemoglobin A1c Lactic Acid Calcium Phosphorus Magnesium AST ALT Ammonia Troponin T Total Protein Albumin Triglycerides LDL Cholesterol Direct HDL Cholesterol Urine Creatinine Urine Total Protein 07/26/22 07/26/22 07/26/22 04:35 04:35 04:40 WBC RBC Hgb Hct MCHC RDW Plt Count Vance # (Auto) Seg Neutrophils % Seg Neuts % (Manual) Lymphocytes % (Manual) Seg Neutrophils # Seg Neutrophils # Man Lymphocytes # (Manual) ABG pH 7.301 L ABG pO2 178.2 H ABG HCO3 11.0 L ABG O2 Saturation 99.1 H ABG Base Excess -13.3 L ABG Hemoglobin Sodium 162 H* Potassium 3.0 L Chloride 124.8 H Carbon Dioxide 18 L BUN 69 H Creatinine 3.9 H Glucose 385 H POC Glucose Hemoglobin A1c Lactic Acid 8.20 H* Calcium 7.8 L Phosphorus Magnesium AST ALT Ammonia Troponin T Total Protein Albumin Triglycerides LDL Cholesterol Direct HDL Cholesterol Urine Creatinine Urine Total Protein 07/26/22 07/26/22 07/26/22 05:01 06:14 06:52 WBC RBC Hgb Hct MCHC RDW Plt Count Vance # (Auto) Seg Neutrophils % Seg Neuts % (Manual) Lymphocytes % (Manual) Seg Neutrophils # Seg Neutrophils # Man Lymphocytes # (Manual) ABG pH ABG pO2 ABG HCO3 ABG O2 Saturation ABG Base Excess ABG Hemoglobin Sodium Potassium Chloride Carbon Dioxide BUN Creatinine Glucose POC Glucose 347 H 300 H 278 H Hemoglobin A1c Lactic Acid Calcium Phosphorus Magnesium AST ALT Ammonia Troponin T Total Protein Albumin Triglycerides LDL Cholesterol Direct HDL Cholesterol Urine Creatinine Urine Total Protein 07/26/22 07/26/22 07/26/22 07:59 08:58 10:04 WBC RBC Hgb Hct MCHC RDW Plt Count Vance # (Auto) Seg Neutrophils % Seg Neuts % (Manual) Lymphocytes % (Manual) Seg Neutrophils # Seg Neutrophils # Man Lymphocytes # (Manual) ABG pH ABG pO2 ABG HCO3 ABG O2 Saturation ABG Base Excess ABG Hemoglobin Sodium Potassium Chloride Carbon Dioxide BUN Creatinine Glucose POC Glucose 269 H 277 H 244 H Hemoglobin A1c Lactic Acid Calcium Phosphorus Magnesium AST ALT Ammonia Troponin T Total Protein Albumin Triglycerides LDL Cholesterol Direct HDL Cholesterol Urine Creatinine Urine Total Protein 07/26/22 07/26/22 07/26/22 11:03 11:53 13:08 WBC RBC Hgb Hct MCHC RDW Plt Count Vance # (Auto) Seg Neutrophils % Seg Neuts % (Manual) Lymphocytes % (Manual) Seg Neutrophils # Seg Neutrophils # Man Lymphocytes # (Manual) ABG pH ABG pO2 ABG HCO3 ABG O2 Saturation ABG Base Excess ABG Hemoglobin Sodium Potassium Chloride Carbon Dioxide BUN Creatinine Glucose POC Glucose 253 H 213 H 194 H Hemoglobin A1c Lactic Acid Calcium Phosphorus Magnesium AST ALT Ammonia Troponin T Total Protein Albumin Triglycerides LDL Cholesterol Direct HDL Cholesterol Urine Creatinine Urine Total Protein 07/26/22 07/26/22 07/26/22 14:24 14:56 14:57 WBC RBC Hgb Hct MCHC RDW Plt Count Vance # (Auto) Seg Neutrophils % Seg Neuts % (Manual) Lymphocytes % (Manual) Seg Neutrophils # Seg Neutrophils # Man Lymphocytes # (Manual) ABG pH ABG pO2 ABG HCO3 ABG O2 Saturation ABG Base Excess ABG Hemoglobin Sodium Potassium Chloride Carbon Dioxide BUN Creatinine Glucose POC Glucose 185 H 236 H 207 H Hemoglobin A1c Lactic Acid Calcium Phosphorus Magnesium AST ALT Ammonia Troponin T Total Protein Albumin Triglycerides LDL Cholesterol Direct HDL Cholesterol Urine Creatinine Urine Total Protein 07/26/22 07/26/22 07/26/22 15:36 15:36 15:36 WBC RBC Hgb Hct MCHC RDW Plt Count Vance # (Auto) Seg Neutrophils % Seg Neuts % (Manual) Lymphocytes % (Manual) Seg Neutrophils # Seg Neutrophils # Man Lymphocytes # (Manual) ABG pH ABG pO2 ABG HCO3 ABG O2 Saturation ABG Base Excess ABG Hemoglobin Sodium 160 H Potassium Chloride 126.2 H Carbon Dioxide 18 L BUN 59 H Creatinine 3.2 H Glucose 227 H POC Glucose Hemoglobin A1c Lactic Acid 9.70 H* Calcium 7.1 L Phosphorus Magnesium AST ALT Ammonia Troponin T 0.049 H D Total Protein Albumin Triglycerides LDL Cholesterol Direct HDL Cholesterol Urine Creatinine Urine Total Protein 07/26/22 07/26/22 07/26/22 15:57 16:32 17:04 WBC RBC Hgb Hct MCHC RDW Plt Count Vance # (Auto) Seg Neutrophils % Seg Neuts % (Manual) Lymphocytes % (Manual) Seg Neutrophils # Seg Neutrophils # Man Lymphocytes # (Manual) ABG pH ABG pO2 ABG HCO3 ABG O2 Saturation ABG Base Excess ABG Hemoglobin Sodium Potassium Chloride Carbon Dioxide BUN Creatinine Glucose POC Glucose 207 H 189 H 219 H Hemoglobin A1c Lactic Acid Calcium Phosphorus Magnesium AST ALT Ammonia Troponin T Total Protein Albumin Triglycerides LDL Cholesterol Direct HDL Cholesterol Urine Creatinine Urine Total Protein 07/26/22 07/26/22 07/26/22 18:00 18:10 18:52 WBC RBC Hgb Hct MCHC RDW Plt Count Vance # (Auto) Seg Neutrophils % Seg Neuts % (Manual) Lymphocytes % (Manual) Seg Neutrophils # Seg Neutrophils # Man Lymphocytes # (Manual) ABG pH ABG pO2 ABG HCO3 ABG O2 Saturation ABG Base Excess ABG Hemoglobin Sodium Potassium Chloride Carbon Dioxide BUN Creatinine Glucose POC Glucose 197 H 194 H Hemoglobin A1c Lactic Acid Calcium Phosphorus Magnesium AST ALT Ammonia Troponin T Total Protein Albumin Triglycerides LDL Cholesterol Direct HDL Cholesterol Urine Creatinine 118.4 H Urine Total Protein 146 H 07/26/22 07/26/22 07/26/22 20:47 21:30 21:51 WBC RBC Hgb Hct MCHC RDW Plt Count Vance # (Auto) Seg Neutrophils % Seg Neuts % (Manual) Lymphocytes % (Manual) Seg Neutrophils # Seg Neutrophils # Man Lymphocytes # (Manual) ABG pH ABG pO2 ABG HCO3 ABG O2 Saturation ABG Base Excess ABG Hemoglobin Sodium 155 H Potassium Chloride 123.5 H Carbon Dioxide 16 L BUN 53 H Creatinine 2.9 H Glucose 185 H POC Glucose 134 H 124 H Hemoglobin A1c Lactic Acid Calcium 7.0 L Phosphorus Magnesium AST ALT Ammonia Troponin T Total Protein Albumin Triglycerides LDL Cholesterol Direct HDL Cholesterol Urine Creatinine Urine Total Protein 07/26/22 07/26/22 07/27/22 22:47 23:52 00:45 WBC RBC Hgb Hct MCHC RDW Plt Count Vance # (Auto) Seg Neutrophils % Seg Neuts % (Manual) Lymphocytes % (Manual) Seg Neutrophils # Seg Neutrophils # Man Lymphocytes # (Manual) ABG pH ABG pO2 ABG HCO3 ABG O2 Saturation ABG Base Excess ABG Hemoglobin Sodium 155 H Potassium Chloride 124.2 H Carbon Dioxide 19 L BUN 53 H Creatinine 2.5 H Glucose 168 H POC Glucose 138 H 150 H Hemoglobin A1c Lactic Acid Calcium 6.7 L Phosphorus Magnesium AST ALT Ammonia Troponin T Total Protein Albumin Triglycerides LDL Cholesterol Direct HDL Cholesterol Urine Creatinine Urine Total Protein 07/27/22 07/27/22 07/27/22 00:58 02:45 03:50 WBC 15.4 H RBC Hgb Hct MCHC RDW 15.3 H Plt Count 60 L Vance # (Auto) Seg Neutrophils % Seg Neuts % (Manual) 78.0 H Lymphocytes % (Manual) 3.0 L Seg Neutrophils # Seg Neutrophils # Man 12.0 H Lymphocytes # (Manual) 0.5 L ABG pH ABG pO2 ABG HCO3 ABG O2 Saturation ABG Base Excess ABG Hemoglobin Sodium Potassium Chloride Carbon Dioxide BUN Creatinine Glucose POC Glucose 153 H 150 H Hemoglobin A1c Lactic Acid Calcium Phosphorus Magnesium AST ALT Ammonia Troponin T Total Protein Albumin Triglycerides LDL Cholesterol Direct HDL Cholesterol Urine Creatinine Urine Total Protein 07/27/22 07/27/22 07/27/22 03:50 03:55 04:57 WBC RBC Hgb Hct MCHC RDW Plt Count Vance # (Auto) Seg Neutrophils % Seg Neuts % (Manual) Lymphocytes % (Manual) Seg Neutrophils # Seg Neutrophils # Man Lymphocytes # (Manual) ABG pH ABG pO2 110.1 H ABG HCO3 13.3 L ABG O2 Saturation ABG Base Excess -9.0 L ABG Hemoglobin 13.1 L Sodium 154 H Potassium Chloride 123.0 H Carbon Dioxide 19 L BUN 55 H Creatinine 2.8 H Glucose 153 H POC Glucose 112 H Hemoglobin A1c Lactic Acid Calcium 6.8 L Phosphorus 1.30 L Magnesium AST 64 H ALT Ammonia Troponin T Total Protein 4.1 L D Albumin 2.1 L Triglycerides LDL Cholesterol Direct HDL Cholesterol Urine Creatinine Urine Total Protein 07/27/22 07/27/22 07/27/22 08:22 09:30 10:49 WBC RBC Hgb Hct MCHC RDW Plt Count Vance # (Auto) Seg Neutrophils % Seg Neuts % (Manual) Lymphocytes % (Manual) Seg Neutrophils # Seg Neutrophils # Man Lymphocytes # (Manual) ABG pH ABG pO2 ABG HCO3 ABG O2 Saturation ABG Base Excess ABG Hemoglobin Sodium Potassium Chloride Carbon Dioxide BUN Creatinine Glucose POC Glucose 146 H 153 H 163 H Hemoglobin A1c Lactic Acid Calcium Phosphorus Magnesium AST ALT Ammonia Troponin T Total Protein Albumin Triglycerides LDL Cholesterol Direct HDL Cholesterol Urine Creatinine Urine Total Protein 07/27/22 07/27/22 07/27/22 12:13 12:44 17:17 WBC RBC Hgb Hct MCHC RDW Plt Count Vance # (Auto) Seg Neutrophils % Seg Neuts % (Manual) Lymphocytes % (Manual) Seg Neutrophils # Seg Neutrophils # Man Lymphocytes # (Manual) ABG pH ABG pO2 ABG HCO3 ABG O2 Saturation ABG Base Excess ABG Hemoglobin Sodium Potassium Chloride Carbon Dioxide BUN Creatinine Glucose POC Glucose 190 H 287 H Hemoglobin A1c 12.3 H Lactic Acid Calcium Phosphorus Magnesium AST ALT Ammonia Troponin T Total Protein Albumin Triglycerides LDL Cholesterol Direct HDL Cholesterol Urine Creatinine Urine Total Protein
[2022-07-28] MEDS: INSULIN REGULAR, HUMAN 100 UNITS/1 ML SUB-Q SCH ×5 (01:09→23:33)
[2022-07-28 04:09] LABS: ABG Base Excess -9.7 mmol/L (-2.0-3.0); ABG HCO3 12.3 mmol/L (20.0-26.0); ABG Methemoglobin 0.5 % (0.0-1.5); ABG Oxygen Saturation 99.2 % (95.0-99.0); ABG PCO2 18.2 mm Hg; ABG PH 7.446 pH Units (7.350-7.450); ABG PO2 171.2 mm Hg (80.0-90.0)
[2022-07-28 04:51] LABS: Hematocrit 36.1 % (35.5-45.6); Hemoglobin 11.2 gm/dl (11.8-15.2); Mean Corpuscular HGB Conc 31 % (32-34); Mean Corpuscular Volume 91 fl (84-94); Red Blood Count 3.97 M/mm3 (3.65-5.03); Red Cell Distribution Width 15.9 % (13.2-15.2)
[2022-07-28 04:53] LABS: Platelet Count 48 K/mm3 (140-440)
--- NOTE | 2022-07-28 05:01 | XRay Report ---
CHEST 1 VIEW INDICATION / CLINICAL INFORMATION: sob STUDY TIME: 410 COMPARISON: 07/25/2022 FINDINGS: SUPPORT DEVICES: Stable HEART / MEDIASTINUM: Stable LUNGS / PLEURA: No significant acute pulmonary or pleural abnormality. No pneumothorax. ADDITIONAL FINDINGS: No significant additional findings. Signer Name: Efren Ashley MD Signed: 07/28/2022 4:57 AM Workstation Name: [id number]
[2022-07-28 05:16] LABS: Calcium 6.2 mg/dL (8.4-10.2)
[2022-07-28] MEDS ORDERED: INSULIN REGULAR, HUMAN 100 UNITS/1 ML SUB-Q ONE ×2 (05:47→19:17)
[2022-07-28] MEDS: HYDROCORTISONE SOD SUCC 100 MG/2 ML VIAL IV SCH ×3 (05:53→21:21)
[2022-07-28] MEDS: AMIODARONE 900 MG in DEXTROSE 5% IN WATER 482 ML IV SCH (05:53)
[2022-07-28] MEDS: ACETAMINOPHEN 325 MG TAB PO PRN (06:00)
[2022-07-28] MEDS ORDERED: INSULIN GLARGINE 100 UNITS/ML SUB-Q SCH (10:00)
[2022-07-28] MEDS: FAMOTIDINE 10 MG TAB FEEDTUBE SCH ×2 (10:23→21:21)
[2022-07-28] MEDS ORDERED: CALCIUM GLUCONATE 1,000 MG in SODIUM CHLORIDE 0.9% 100 ML IV ONE (11:00)
[2022-07-28] MEDS: CEFEPIME/NS 2 GM/100 ML 2 GM/100 ML BAG IV SCH (11:23)
--- NOTE | 2022-07-28 11:30 | Progress Note ---
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 Serum creatinine 3.2 today, yesterdays was 2.8, non- oliguric Renal ultrasound reviewed. No hydronephrosis. Urine lytes reviewed. Has proteinuria likely from uncontrolled DM Sodium level 148 today, yesterday's was 154 Continue on free water flush 150 ml every 4 hours S/P IVF DKA-S/P insulin drip. On SQ inuslin. 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 Isaacs Subjective Date of service: 07/28/22 Principal diagnosis: Hypernatremia, ARF Interval history: Patient off floor for testing Objective - Vital Signs Vital signs: Vital Signs - 12hr 07/27/22 07/28/22 07/28/22 23:30 00:00 00:11 Temperature 97.7 F Pulse Rate 106 H 106 H 95 H Pulse Rate [ 106 H From Monitor] Respiratory 28 H 27 H Rate Blood Pressure 96/55 89/59 105/60 O2 Sat by Pulse 100 100 100 Oximetry 07/28/22 07/28/22 07/28/22 00:30 01:00 01:30 Temperature Pulse Rate 117 H 107 H 105 H Pulse Rate [ From Monitor] Respiratory 25 H 29 H 26 H Rate Blood Pressure 95/62 96/64 96/54 O2 Sat by Pulse 100 100 100 Oximetry 07/28/22 07/28/22 07/28/22 02:00 02:30 03:00 Temperature Pulse Rate 101 H 124 H 112 H Pulse Rate [ From Monitor] Respiratory 22 26 H 28 H Rate Blood Pressure 100/62 101/62 95/58 O2 Sat by Pulse 100 100 100 Oximetry 07/28/22 07/28/22 07/28/22 03:17 03:30 04:00 Temperature 100.6 F H Pulse Rate 110 H 108 H 112 H Pulse Rate [ 126 H From Monitor] Respiratory 31 H 33 H Rate Blood Pressure 84/57 110/65 O2 Sat by Pulse 100 Oximetry 07/28/22 07/28/2207/28/22 04:30 05:01 05:30 Temperature Pulse Rate 100 H 110 H 114 H Pulse Rate [ From Monitor] Respiratory 32 H 32 H 32 H Rate Blood Pressure 110/65 110/65 107/71 O2 Sat by Pulse 100 100 Oximetry 07/28/22 07/28/22 07/28/22 06:00 06:30 07:00 Temperature Pulse Rate 106 H 97 H 100 H Pulse Rate [ From Monitor] Respiratory 26 H 28 H 28 H Rate Blood Pressure 119/63 112/66 101/66 O2 Sat by Pulse 100 99 100 Oximetry 07/28/22 07/28/22 07/28/22 07:30 08:00 08:24 Temperature 100 F H Pulse Rate 101 H 105 H 105 H Pulse Rate [ 126 H From Monitor] Respiratory 30 H 33 H Rate Blood Pressure 110/63 105/65 105/65 O2 Sat by Pulse 100 100 100 Oximetry 07/28/22 07/28/22 07/28/22 08:30 09:00 09:30 Temperature Pulse Rate 108 H 100 H 106 H Pulse Rate [ From Monitor] Respiratory 29 H 30 H 29 H Rate Blood Pressure 110/65 115/67 117/71 O2 Sat by Pulse 100 100 100 Oximetry 07/28/22 07/28/22 10:00 10:30 Temperature Pulse Rate 113 H 105 H Pulse Rate [ From Monitor] Respiratory 29 H 29 H Rate Blood Pressure 117/69 117/69 O2 Sat by Pulse 100 Oximetry - Lab 07/28/22 04:05 07/28/22 04:05 Most recent lab results WBC 13.9 K/mm3 (4.5-11.0) H 07/28/22 04:05 RBC 3.97 M/mm3 (3.65-5.03) 07/28/22 04:05 Hgb 11.2 gm/dl (11.8-15.2) L 07/28/22 04:05 Hct 36.1 % (35.5-45.6) 07/28/22 04:05 MCV 91 fl (84-94) 07/28/22 04:05 MCH 28 pg (28-32) 07/28/22 04:05 MCHC 31 % (32-34) L 07/28/22 04:05 RDW 15.9 % (13.2-15.2) H 07/28/22 04:05 Plt Count 48 K/mm3 (140-440) L 07/28/22 04:05 Add Manual Diff Complete 07/27/22 03:50 Total Counted 100 07/27/22 03:50 Seg Neuts % (Manual) 78.0 % (40.0-70.0) H 07/27/22 03:50 Band Neutrophils % 16.0 % 07/27/22 03:50 Lymphocytes % (Manual) 3.0 % (13.4-35.0) L 07/27/22 03:50 Reactive Lymphs % (Man) 0 % 07/27/22 03:50 Monocytes % (Manual) 2.0 % (0.0-7.3) 07/27/22 03:50 Eosinophils % (Manual) 0 % (0.0-4.3) 07/27/22 03:50 Basophils % (Manual) 0 % (0.0-1.8) 07/27/22 03:50 Metamyelocytes % 1.0 % 07/27/22 03:50 Myelocytes % 0 % 07/27/22 03:50 Promyelocytes % 0 % 07/27/22 03:50 Blast Cells % 0 % 07/27/22 03:50 Nucleated RBC % Not Reportable 07/27/22 03:50 Seg Neutrophils # Man 12.0 K/mm3 (1.8-7.7) H 07/27/22 03:50 Band Neutrophils # 2.5 K/mm3 07/27/22 03:50 Lymphocytes # (Manual) 0.5 K/mm3 (1.2-5.4) L 07/27/22 03:50 Abs React Lymphs (Man) 0.0 K/mm3 07/27/22 03:50 Monocytes # (Manual) 0.3 K/mm3 (0.0-0.8) 07/27/22 03:50 Eosinophils # (Manual) 0.0 K/mm3 (0.0-0.4) 07/27/22 03:50 Basophils # (Manual) 0.0 K/mm3 (0.0-0.1) 07/27/22 03:50 Metamyelocytes # 0.2 K/mm3 07/27/22 03:50 Myelocytes # 0.0 K/mm3 07/27/22 03:50 Promyelocytes # 0.0 K/mm3 07/27/22 03:50 Blast Cells # 0.0 K/mm3 07/27/22 03:50 WBC Morphology Not Reportable 07/27/22 03:50 Hypersegmented Neuts Not Reportable 07/27/22 03:50 Hyposegmented Neuts Not Reportable 07/27/22 03:50 Hypogranular Neuts Not Reportable 07/27/22 03:50 Smudge Cells Not Reportable 07/27/22 03:50 Toxic Granulation Not Reportable 07/27/22 03:50 Toxic Vacuolation Not Reportable 07/27/22 03:50 Dohle Bodies Not Reportable 07/27/22 03:50 Pelger-Huet Anomaly Not Reportable 07/27/22 03:50 Jay Rods Not Reportable 07/27/22 03:50 Platelet Estimate Consistent w auto 07/27/22 03:50 Clumped Platelets Not Reportable 07/27/22 03:50 Plt Clumps, EDTA Not Reportable 07/27/22 03:50 Large Platelets Not Reportable 07/27/22 03:50 Giant Platelets Not Reportable 07/27/22 03:50 Platelet Satelliting Not Reportable 07/27/22 03:50 Plt Morphology Comment Not Reportable 07/27/22 03:50 RBC Morphology Not Reportable 07/27/22 03:50 Dimorphic RBCs Not Reportable 07/27/22 03:50 Polychromasia Not Reportable 07/27/22 03:50 Hypochromasia Not Reportable 07/27/22 03:50 Poikilocytosis Not Reportable 07/27/22 03:50 Anisocytosis Not Reportable 07/27/22 03:50 Microcytosis Not Reportable 07/27/22 03:50 Macrocytosis Not Reportable 07/27/22 03:50 Spherocytes Not Reportable 07/27/22 03:50 Pappenheimer Bodies Not Reportable 07/27/22 03:50 Sickle Cells Not Reportable 07/27/22 03:50 Target Cells Not Reportable 07/27/22 03:50 Tear Drop Cells Not Reportable 07/27/22 03:50 Ovalocytes Not Reportable 07/27/22 03:50 Helmet Cells Not Reportable 07/27/22 03:50 [place] Bodies Not Reportable 07/27/22 03:50 [place] Rings Not Reportable 07/27/22 03:50 Leonora Cells Not Reportable 07/27/22 03:50 Bite Cells Not Reportable 07/27/22 03:50 Crenated Cell Not Reportable 07/27/22 03:50 Elliptocytes Not Reportable 07/27/22 03:50 Acanthocytes (Spur) Not Reportable 07/27/22 03:50 Rouleaux Not Reportable 07/27/22 03:50 Hemoglobin C Crystals Not Reportable 07/27/22 03:50 Schistocytes Not Reportable 07/27/22 03:50 Malaria parasites Not Reportable 07/27/22 03:50 [place] Bodies Not Reportable 07/27/22 03:50 Hem Pathologist Commnt No 07/27/22 03:50 ABG pH 7.446 pH Units (7.350-7.450) 07/28/22 03:58 ABG pCO2 18.2 mm Hg 07/28/22 03:58 ABG pO2 171.2 mm Hg (80.0-90.0) H 07/28/22 03:58 ABG HCO3 12.3 mmol/L (20.0-26.0) L 07/28/22 03:58 ABG O2 Saturation 99.2 % (95.0-99.0) H 07/28/22 03:58 ABG O2 Content 15.2 (0.0-44) 07/28/22 03:58 ABG Base Excess -9.7 mmol/L (-2.0-3.0) L 07/28/22 03:58 ABG Hemoglobin 10.9 gm/dl (14.0-18.0) L 07/28/22 03:58 ABG Carboxyhemoglobin 1.2 % (0.0-5.0) 07/28/22 03:58 ABG Methemoglobin 0.5 % (0.0-1.5) 07/28/22 03:58 Oxyhemoglobin 97.5 % (95.0-99.0) 07/28/22 03:58 FiO2 35 % 07/28/22 03:58 Sodium 148 mmol/L (137-145) H 07/28/22 04:05 Potassium 4.6 mmol/L (3.6-5.0) 07/28/22 04:05 Chloride 117.0 mmol/L (98-107) H 07/28/22 04:05 Carbon Dioxide 16 mmol/L (22-30) L 07/28/22 04:05 Anion Gap 20 mmol/L 07/28/22 04:05 BUN 74 mg/dL (9-20) H 07/28/22 04:05 Creatinine 3.2 mg/dL (0.8-1.3) H 07/28/22 04:05 Estimated GFR 19 ml/min 07/28/22 04:05 BUN/Creatinine Ratio 23 % 07/28/22 04:05 Glucose 471 mg/dL (75-100) H 07/28/22 04:05 POC Glucose 390 mg/dL (70-105) H 07/28/22 05:36 Hemoglobin A1c 12.3 % (4-6) H 07/27/22 12:13 Lactic Acid 9.70 mmol/L (0.7-2.0) H* 07/26/22 15:36 Calcium 6.2 mg/dL (8.4-10.2) L 07/28/22 04:05 Phosphorus 1.30 mg/dL (2.5-4.5) L 07/27/22 03:50 Magnesium 2.30 mg/dL (1.7-2.3) 07/27/22 03:50 Total Bilirubin 0.30 mg/dL (0.1-1.2) 07/27/22 03:50 AST 64 units/L (5-40) H 07/27/22 03:50 ALT 31 units/L (7-56) 07/27/22 03:50 Alkaline Phosphatase 61 units/L (35-129) 07/27/22 03:50 Troponin T 0.049 ng/mL (0.00-0.029) H D 07/26/22 15:36 Total Protein 4.1 g/dL (6.3-8.2) L D 07/27/22 03:50 Albumin 2.1 g/dL (3.9-5) L 07/27/22 03:50 Albumin/Globulin Ratio 1.1 % 07/27/22 03:50 Urine Creatinine 118.4 mg/dL (0.1-20.0) H 07/26/22 18:10 Protein/Creatinin Ratio 1.23 07/26/22 18:10 Urine Sodium 108 mmol/L 07/26/22 18:10 Urine Total Protein 146 mg/dL (5-11.8) H 07/26/22 18:10 Medications & Allergies - Medications Allergies/Adverse Reactions: Allergies aspirin Allergy (Verified 02/15/20 13:24) Swelling iron Allergy (Verified 02/15/20 13:24) Itching Home Medications: Home Medications Medication Instructions Recorded Confirmed Last Taken Type metFORMIN [Glucophage] 1,000 mg PO BID 02/11/14 02/15/20 02/14/20 History Acetaminophen [Acetaminophen ER 650 mg PO Q8HR PRN #20 tablet.er 10/21/19 02/15/20 Unknown Rx TAB] ALBUTEROL NEB's [Proventil 0.083% 2.5 mg IH Q3HRT PRN #30 nebu 03/09/20 Unknown Rx NEBS] Aspirin EC [Halfprin EC] 81 mg PO QDAY #30 tablet. 03/09/20 Unknown Rx AtorvaSTATin [Lipitor] 40 mg FEEDTUBE QHS #30 tablet 03/09/20 Unknown Rx Famotidine [Pepcid] 20 mg FEEDTUBE DAILY #30 tablet 03/09/20 Unknown Rx Insulin Glargine [Lantus VIAL] 50 units SUB-Q QAMDIAB #1 vial 03/09/20 Unknown Rx Insulin Glargine [Lantus VIAL] 50 units SUB-Q QHS #1 vial 03/09/20 Unknown Rx Insulin Regular, Human [HumuLIN R] 0 units SUB-Q Q6HR #1 vial 03/09/20 Unknown Rx Metoclopramide [Reglan ORAL LIQ] 5 mg FEEDTUBE Q6H PRN 30 Days 03/09/20 Unknown Rx Metoprolol [Lopressor TAB] 100 mg FEEDTUBE BID #60 tablet 03/09/20 Unknown Rx amLODIPine 10 mg FEEDTUBE QDAY #30 tablet 03/09/20 Unknown Rx traMADoL [Ultram 50 MG tab] 50 mg FEEDTUBE Q6HR PRN #10 tablet 03/09/20 Unknown Rx Active Medications: Generic Name Dose Route Start Last Admin Trade Name Freq PRN Reason Stop Dose Admin Acetaminophen 650 mg 07/26/22 00:31 07/28/22 06:00 Acetaminophen 325 Mg Tab PO 650 mg Q4H PRN Administration Pain MILD(1-3)/Fever >100.5/LANTIGUA Acetaminophen 650 mg 07/26/22 02:04 Acetaminophen 650 Mg Rect Supp DE Q4H PRN Pain, Mild (1-3) Albuterol 2.5 mg 07/26/22 00:31 Albuterol 2.5 Mg/3 Ml Nebu IH Q3HRT PRN Shortness Of Breath Atorvastatin Calcium 40 mg 07/26/22 22:00 07/27/22 20:59 Atorvastatin 40 Mg Tab PO 40 mg QHS LIZZIE Administration Dextrose 50 ml 07/27/22 09:25 Dextrose 50% In Water (25gm) 50 Ml Syringe IV Q30MIN PRN Hypoglycemia Protocol Famotidine 10 mg 07/28/22 10:00 07/28/22 10:23 Famotidine 10 Mg Tab FEEDTUBE 10 mg BID LIZZIE Administration Hydrocortisone Sodium Succinate 100 mg 07/26/22 14:00 07/28/22 05:53 Hydrocortisone Sod Succ 100 Mg/2 Ml Vial IV 100 mg Q8HR LIZZIE Administration NORepinephrine/NS 8 MG-250 ML 8 mg in 250 mls @ 3.75 mls/hr 07/25/22 23:00 07/27/22 19:16 Norepinephrine/Ns 8 Mg-250 Ml (Double Conc) IV 0 mcg/min TITRATE LIZZIE 0 mls/hr Titration Protocol 2 MCG/MIN Amiodarone HCl 900 mg/ 500 mls @ 33.333 mls/hr 07/26/22 04:10 07/28/22 05:53 Dextrose IV 0.5 mg/min DIRECT LIZZIE 16.667 mls/hr Administration Protocol 1 MG/MIN Vasopressin 20 unit/ Sodium 101 mls @ 9.09 mls/hr 07/26/22 05:00 07/27/22 19:16 Chloride IV 0 units/min TITR LIZZIE 0 mls/hr Titration Protocol 0.03 UNITS/MIN Cefepime HCl 2 gm in 100 mls @ 200 mls/hr 07/27/22 11:00 07/28/22 11:23 Cefepime/Ns 2 Gm/100 Ml IV 200 mls/hr Q24H LIZZIE Administration Protocol CALC GLUCONATE 1GM/NS 100 ML 1 gm in 100 mls @ 300 mls/hr 07/28/22 12:00 Calcium Gluonate/Ns 1,000mg/100ml IV 07/28/22 12:19 ONCE ONE Insulin Glargine 20 units 07/28/22 10:00 Insulin Glargine 100 Units/Ml SUB-Q BID [facility] Insulin Human Regular 0 units 07/27/22 12:00 07/28/22 05:54 Insulin Regular, Human 100 Units/1 Ml SUB-Q 10 units Q6H LIZZIE Administration Protocol Multi-Ingred Cream/Lotion/Oil/Oint 1 applic 07/27/22 03:17 07/27/22 03:35 Mineral Oil/Petrolatum, White Ophth Oint 3.5 Gm OU 1 applic PRN PRN Administration Dry Eye(s) Nitroglycerin 0.4 mg 07/26/22 00:31 Nitroglycerin 0.4 Mg Tab Subl SL Q5M PRN Chest Pain Ondansetron HCl 4 mg 07/26/22 00:31 Ondansetron 4 Mg/2 Ml Inj IV Q8H PRN Nausea And Vomiting Sodium Chloride 10 ml 07/26/22 10:00 07/28/22 10:24 Sodium Chloride 0.9% 10 Ml Flush Syringe IV 10 ml BID LIZZIE Administration Sodium Chloride 10 ml 07/26/22 00:31 Sodium Chloride 0.9% 10 Ml Flush Syringe IV PRN PRN LINE FLUSH
--- NOTE | 2022-07-28 11:44 | Progress Note ---
Assessment and Plan Patient is 77-year-old male with a past medical history of hypertension, paroxysmal A. 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 Status post cardiac arrest Acute respiratory failure-pulmonology following AMS-neurology following DKA Acute renal failure-nephrology following Sepsis PAF-on anticoagulation Hypertension Diabetes History of CVA 2019 Echo 07/26/2022-technically difficult study due to patient on ventilator, poor endocardial definition. Very grossly in subcostal views probably normal left ventricular systolic function EF 50 to 60% no pericardial effusion. Consider repeating echo when patient is more stable and off ventilator Plan: Suspect troponin elevation in setting of sepsis, acute renal failure, and DKA S/p cardiac arrest with unknown rhythm in setting of sepsis, acute renal failure, DKA Telemetry reviewed: patient remains in afib Continue amiodarone drip Per conversation with neuro hold anticoagulation at this time. Furthermore due to patient's thrombocytopenia we will also continue to hold Due to soft BP Guarded prognosis Will see as needed over weekend Patient seen in conjunction with Dr. Skinner who agrees this plan of care 30 minutes of critical care time spent in care and coordination of patient - Patient Problems (1) History of CVA (cerebrovascular accident) Current Visit: Yes Status: Acute (2) Acute respiratory failure Current Visit: Yes Status: Acute (3) Cardiac arrest Current Visit: Yes Status: Acute (4) DKA (diabetic ketoacidosis) Current Visit: Yes Status: Acute (5) Leukocytosis Current Visit: Yes Status: Acute (6) Atrial fibrillation with RVR Current Visit: No Status: Acute (7) HLD (hyperlipidemia) Current Visit: No Status: Acute (8) HTN (hypertension) Current Visit: No Status: Acute Subjective Date of service: 07/28/22 Principal diagnosis: Hypernatremia, ARF Interval history: Patient remains intubated unresponsive Currently A. fib 90s to 100s Objective Vital Signs Temp Pulse Pulse Resp BP Pulse Ox 07/28/22 10:30 105 H 29 H 117/69 100 07/28/22 10:00 113 H 29 H 117/69 07/28/22 09:30 106 H 29 H 117/71 100 07/28/22 09:00 100 H 30 H 115/67 100 07/28/22 08:30 108 H 29 H 110/65 100 07/28/22 08:24 105 H 105/65 100 07/28/22 08:00 100 F H 105 H 126 H 33 H 105/65 100 07/28/22 07:30 101 H 30 H 110/63 100 07/28/22 07:00 100 H 28 H 101/66 100 07/28/22 06:30 97 H 28 H 112/66 99 07/28/22 06:00 106 H 26 H 119/63 100 07/28/22 05:30 114 H 32 H 107/71 07/28/22 05:01 110 H 32 H 110/65 100 07/28/22 04:30 100 H 32 H 110/65 100 07/28/22 04:00 100.6 F H 112 H 126 H 33 H 110/65 100 07/28/22 03:30 108 H 31 H 84/57 07/28/22 03:17 110 H 07/28/22 03:00 112 H 28 H 95/58 100 07/28/22 02:30 124 H 26 H 101/62 100 07/28/22 02:00 101 H 22 100/62 100 07/28/22 01:30 105 H 26 H 96/54 100 07/28/22 01:00 107 H 29 H 96/64 100 07/28/22 00:30 117 H 25 H 95/62 100 07/28/22 00:11 95 H 105/60 100 07/28/22 00:00 97.7 F 106 H 106 H 27 H 89/59 100 07/27/22 23:30 106 H 28 H 96/55 100 07/27/22 23:00 99 H 29 H 107/62 07/27/22 22:30 118 H 27 H 92/56 100 07/27/22 22:07 104 H 29 H 98/60 100 07/27/22 22:00 113 H 28 H 98/60 100 07/27/22 21:30 105 H 31 H 95/63 100 07/27/22 21:15 101 H 26 H 91/57 100 07/27/22 21:00 122 H 29 H 90/60 100 07/27/22 20:45 106 H 33 H 83/53 100 07/27/22 20:30 117 H 29 H 95/59 100 07/27/22 20:15 105 H 30 H 96/57 100 07/27/22 20:00 99.2 F 102 H 29 H 90/63 100 07/27/22 19:52 110 H 93/58 100 07/27/22 19:45 113 H 28 H 107/65 100 07/27/22 19:30 107 H 28 H 107/65 100 07/27/22 19:15 100 H 100 H 27 H 127/79 100 07/27/22 19:14 101 H 07/27/22 19:00 100 H 26 H 114/67 100 07/27/22 18:45 98 H 28 H 118/69 100 07/27/22 18:30 99 H 29 H 116/78 100 07/27/22 18:15 98 H 22 114/75 100 07/27/22 18:00 99 H 27 H 114/74 100 07/27/22 17:45 100 H 27 H 114/77 100 07/27/22 17:30 99 H 28 H 114/79 99 07/27/22 17:15 99 H 21 112/75 100 07/27/22 17:05 99 H 109/73 99 07/27/22 17:00 99 H 27 H 109/73 100 07/27/22 16:45 99 H 28 H 117/71 100 07/27/22 16:30 102 H 26 H 114/78 100 07/27/22 16:15 101 H 32 H 134/85 07/27/22 16:01 95 H 33 H 119/68 100 07/27/22 16:00 100.2 F H 100 H 101 H 27 H 100 07/27/22 15:45 99 H 28 H 122/71 100 07/27/22 15:35 98 H 119/68 100 07/27/22 15:00 97 H 32 H 119/68 100 07/27/22 14:45 104 H 29 H 106/58 100 07/27/22 14:30 103 H 28 H 98/63 100 07/27/22 14:15 103 H 28 H 117/65 100 07/27/22 14:00 102 H 29 H 117/65 100 07/27/22 13:45 101 H 29 H 122/63 100 07/27/22 13:30 100 H 30 H 109/63 100 07/27/22 13:15 100 H 28 H 108/67 100 07/27/22 13:00 100 H 28 H 123/64 100 07/27/22 12:45 98 H 24 121/68 100 07/27/22 12:30 98 H 26 H 123/70 100 07/27/22 12:15 97 H 27 H 124/68 100 07/27/22 12:00 100.2 F H 102 H 99 H 31 H 124/74 100 07/27/22 11:45 100 H 30 H 136/71 100 - Physical Examination General: Other (Intubated) HEENT: Positive: Mucus Membranes Dry Neck: Positive: trachea midline Cardiac: Positive: irregularly irregular Lungs: Positive: Ventilated Respirations Neuro: Positive: Other (Unable to assess) Abdomen: Positive: Soft Skin: Positive: Cool. Negative: Rash, Suspicious Lesions, Ulceration Extremities: Present: upper extr. pulses, Cool - Labs and Meds CBC 07/28/22 Range/Units 04:05 WBC 13.9 H (4.5-11.0) K/mm3 RBC 3.97 (3.65-5.03) M/mm3 Hgb 11.2 L (11.8-15.2) gm/dl Hct 36.1 (35.5-45.6) % Plt Count 48 L (140-440) K/mm3 Comprehensive Metabolic Panel 07/28/22 Range/Units 04:05 Sodium 148 H (137-145) mmol/L Potassium 4.6 (3.6-5.0) mmol/L Chloride 117.0 H (98-107) mmol/L Carbon Dioxide 16 L (22-30) mmol/L BUN 74 H (9-20) mg/dL Creatinine 3.2 H (0.8-1.3) mg/dL Glucose 471 H (75-100) mg/dL Calcium 6.2 L (8.4-10.2) mg/dL - Imaging and Cardiology EKG: report reviewed, image reviewed Echo: report reviewed - Telemetry EKG Rhythm: Atrial Fibrillation - EKG Supraventricular dysrhythmia: atrial fibrillation
[2022-07-28] MEDS ORDERED: CALC GLUCONATE 1GM/NS 100 ML 1 GM/100 ML BAG IV ONE (12:00)
--- NOTE | 2022-07-28 12:52 | Progress Note ---
Assessment and Plan 77 y/o male with cardiac arrest, intubated, not sedated with multisystem organ failure 07/28/22: Hold on Volume today. Drop steroids down to 50q8 starting tomorrow. Follow up MRI. EEG results still pending. Platelets still dropping but no evidence of bleeding. Continue abx therapy. Continue feeds. Prognosis is still guarded. 07/27/22: more volume again today. Echo showed normal EF. Wean pressors for MAPs >65, follow up EEg results. Hopeful to get head CT today. Platelets dropped today, not on heparin. Could be sepsis related. If head CT negative, may need to evaluate abdomen around peg. Will start trickle feeds today and transition of insulin drip. Prognosis is still guarded. 1. IVF resusciation with LR 2. Insulin drip and continue NPO state 3. Attempt to wean pressors for MAPs greater than 65 4. Monitor urine output 5. Broaden abx therapy given current clinical state 6. Follow up echo report 7. Agree with stress dose steroids 8. No sedation 9. EEG pending Overall prognosis is guarded to poor, especially given current clinical exam CCT 31 minutes. Subjective Date of service: 07/28/22 Principal diagnosis: Hypernatremia, ARF Interval history: No acute events. Off pressors still. Head CT was normal. Awaiting MRI today. Reviewed neurology and cards notes. Still in Afib on Amiodarone. Objective Vital Signs - 12hr 07/28/22 07/28/22 07/28/22 01:00 01:30 02:00 Temperature Pulse Rate 107 H 105 H 101 H Pulse Rate [ From Monitor] Respiratory 29 H 26 H 22 Rate Blood Pressure 96/64 96/54 100/62 O2 Sat by Pulse 100 100 100 Oximetry 07/28/22 07/28/22 07/28/22 02:30 03:00 03:17 Temperature Pulse Rate 124 H 112 H 110 H Pulse Rate [ From Monitor] Respiratory 26 H 28 H Rate Blood Pressure 101/62 95/58 O2 Sat by Pulse 100 100 Oximetry 07/28/22 07/28/22 07/28/22 03:30 04:00 04:30 Temperature 100.6 F H Pulse Rate 108 H 112 H 100 H Pulse Rate [ 126 H From Monitor] Respiratory 31 H 33 H 32 H Rate Blood Pressure 84/57 110/65 110/65 O2 Sat by Pulse 100 100 Oximetry 07/28/22 07/28/22 07/28/22 05:01 05:30 06:00 Temperature Pulse Rate 110 H 114 H 106 H Pulse Rate [ From Monitor] Respiratory 32 H 32 H 26 H Rate Blood Pressure 110/65 107/71 119/63 O2 Sat by Pulse 100 100 Oximetry 07/28/22 07/28/22 07/28/22 06:30 07:00 07:30 Temperature Pulse Rate 97 H 100 H 101 H Pulse Rate [ From Monitor] Respiratory 28 H 28 H 30 H Rate Blood Pressure 112/66 101/66 110/63 O2 Sat by Pulse 99 100 100 Oximetry 07/28/22 07/28/22 07/28/22 08:00 08:24 08:30 Temperature 100 F H Pulse Rate 105 H 105 H 108 H Pulse Rate [ 126 H From Monitor] Respiratory 33 H 29 H Rate Blood Pressure 105/65 105/65 110/65 O2 Sat by Pulse 100 100 100 Oximetry 07/28/22 07/28/22 07/28/22 09:00 09:30 10:00 Temperature Pulse Rate 100 H 106 H 113 H Pulse Rate [ From Monitor] Respiratory 30 H 29 H 29 H Rate Blood Pressure 115/67 117/71 117/69 O2 Sat by Pulse 100 100 Oximetry 07/28/22 10:30 Temperature Pulse Rate 105 H Pulse Rate [ From Monitor] Respiratory 29 H Rate Blood Pressure 117/69 O2 Sat by Pulse 100 Oximetry CBC and BMP: 07/28/22 04:05 07/28/22 04:05 ABG, PT/INR, D-dimer: ABG ABG pH 7.446 pH Units (7.350-7.450) 07/28/22 03:58 ABG pCO2 18.2 mm Hg 07/28/22 03:58 ABG pO2 171.2 mm Hg (80.0-90.0) H 07/28/22 03:58 ABG O2 Saturation 99.2 % (95.0-99.0) H 07/28/22 03:58 Abnormal lab findings: Abnormal Labs 07/25/22 07/25/22 07/25/22 19:37 19:37 19:37 WBC 18.8 H RBC 6.31 H Hgb 18.8 H Hct 57.3 H MCHC RDW Plt Count [place] # (Auto) 1.4 H Seg Neutrophils % 70.7 H Seg Neuts % (Manual) Lymphocytes % (Manual) Seg Neutrophils # 13.3 H Seg Neutrophils # Man Lymphocytes # (Manual) ABG pH ABG pO2 ABG HCO3 ABG O2 Saturation ABG Base Excess ABG Hemoglobin Sodium 149 H Potassium Chloride 110.3 H Carbon Dioxide 18 L BUN 73 H Creatinine 3.3 H Glucose 761 H* POC Glucose Hemoglobin A1c Lactic Acid Calcium 10.6 H Phosphorus Magnesium 3.10 H AST 63 H ALT 64 H Ammonia Troponin T 0.072 H Total Protein 9.0 H Albumin Triglycerides 362 H LDL Cholesterol Direct 44 L HDL Cholesterol 34 L Urine Creatinine Urine Total Protein 07/25/22 07/25/22 07/25/22 19:37 21:08 22:10 WBC RBC Hgb Hct MCHC RDW Plt Count [place] # (Auto) Seg Neutrophils % Seg Neuts % (Manual) Lymphocytes % (Manual) Seg Neutrophils # Seg Neutrophils # Man Lymphocytes # (Manual) ABG pH ABG pO2 ABG HCO3 ABG O2 Saturation ABG Base Excess ABG Hemoglobin Sodium 155 H Potassium Chloride 113.1 H Carbon Dioxide 14 L BUN 74 H Creatinine 3.5 H Glucose 734 H* POC Glucose Hemoglobin A1c Lactic Acid 12.70 H* Calcium Phosphorus Magnesium AST ALT Ammonia 64.0 H Troponin T Total Protein Albumin Triglycerides LDL Cholesterol Direct HDL Cholesterol Urine Creatinine Urine Total Protein 07/25/22 07/25/22 07/26/22 22:20 23:29 00:13 WBC RBC Hgb Hct MCHC RDW Plt Count [place] # (Auto) Seg Neutrophils % Seg Neuts % (Manual) Lymphocytes % (Manual) Seg Neutrophils # Seg Neutrophils # Man Lymphocytes # (Manual) ABG pH 7.342 L ABG pO2 318.2 H ABG HCO3 14.4 L ABG O2 Saturation 99.5 H ABG Base Excess -9.4 L ABG Hemoglobin Sodium 157 H Potassium 3.1 L D Chloride 114.0 H Carbon Dioxide 21 L D BUN 72 H Creatinine 3.7 H Glucose 615 H* POC Glucose > 600 H Hemoglobin A1c Lactic Acid Calcium Phosphorus Magnesium AST ALT Ammonia Troponin T Total Protein Albumin Triglycerides LDL Cholesterol Direct HDL Cholesterol Urine Creatinine Urine Total Protein 07/26/22 07/26/22 07/26/22 00:13 00:38 00:39 WBC 21.4 H RBC 5.88 H Hgb 17.2 H Hct 55.0 H MCHC 31 L RDW 16.0 H Plt Count [place] # (Auto) Seg Neutrophils % Seg Neuts % (Manual) 77.0 H Lymphocytes % (Manual) 13.0 L Seg Neutrophils # Seg Neutrophils # Man 16.5 H Lymphocytes # (Manual) ABG pH ABG pO2 ABG HCO3 ABG O2 Saturation ABG Base Excess ABG Hemoglobin Sodium Potassium Chloride Carbon Dioxide BUN Creatinine Glucose POC Glucose 517 H Hemoglobin A1c Lactic Acid 9.10 H* Calcium Phosphorus Magnesium AST ALT Ammonia Troponin T Total Protein Albumin Triglycerides LDL Cholesterol Direct HDL Cholesterol Urine Creatinine Urine Total Protein 07/26/22 07/26/22 07/26/22 00:39 01:32 02:28 WBC RBC Hgb Hct MCHC RDW Plt Count [place] # (Auto) Seg Neutrophils % Seg Neuts % (Manual) Lymphocytes % (Manual) Seg Neutrophils # Seg Neutrophils # Man Lymphocytes # (Manual) ABG pH ABG pO2 ABG HCO3 ABG O2 Saturation ABG Base Excess ABG Hemoglobin Sodium Potassium Chloride Carbon Dioxide BUN Creatinine Glucose POC Glucose 460 H 237 H Hemoglobin A1c Lactic Acid Calcium Phosphorus 1.20 L D Magnesium 4.10 H AST ALT Ammonia Troponin T Total Protein Albumin Triglycerides LDL Cholesterol Direct HDL Cholesterol Urine Creatinine Urine Total Protein 07/26/22 07/26/22 07/26/22 03:03 03:07 04:11 WBC RBC Hgb Hct MCHC RDW Plt Count [place] # (Auto) Seg Neutrophils % Seg Neuts % (Manual) Lymphocytes % (Manual) Seg Neutrophils # Seg Neutrophils # Man Lymphocytes # (Manual) ABG pH ABG pO2 ABG HCO3 ABG O2 Saturation ABG Base Excess ABG Hemoglobin Sodium Potassium Chloride Carbon Dioxide BUN Creatinine Glucose POC Glucose 433 H 370 H 338 H Hemoglobin A1c Lactic Acid Calcium Phosphorus Magnesium AST ALT Ammonia Troponin T Total Protein Albumin Triglycerides LDL Cholesterol Direct HDL Cholesterol Urine Creatinine Urine Total Protein 07/26/22 07/26/22 07/26/22 04:35 04:35 04:40 WBC RBC Hgb Hct MCHC RDW Plt Count [place] # (Auto) Seg Neutrophils % Seg Neuts % (Manual) Lymphocytes % (Manual) Seg Neutrophils # Seg Neutrophils # Man Lymphocytes # (Manual) ABG pH 7.301 L ABG pO2 178.2 H ABG HCO3 11.0 L ABG O2 Saturation 99.1 H ABG Base Excess -13.3 L ABG Hemoglobin Sodium 162 H* Potassium 3.0 L Chloride 124.8 H Carbon Dioxide 18 L BUN 69 H Creatinine 3.9 H Glucose 385 H POC Glucose Hemoglobin A1c Lactic Acid 8.20 H* Calcium 7.8 L Phosphorus Magnesium AST ALT Ammonia Troponin T Total Protein Albumin Triglycerides LDL Cholesterol Direct HDL Cholesterol Urine Creatinine Urine Total Protein 07/26/22 07/26/22 07/26/22 05:01 06:14 06:52 WBC RBC Hgb Hct MCHC RDW Plt Count [place] # (Auto) Seg Neutrophils % Seg Neuts % (Manual) Lymphocytes % (Manual) Seg Neutrophils # Seg Neutrophils # Man Lymphocytes # (Manual) ABG pH ABG pO2 ABG HCO3 ABG O2 Saturation ABG Base Excess ABG Hemoglobin Sodium Potassium Chloride Carbon Dioxide BUN Creatinine Glucose POC Glucose 347 H 300 H 278 H Hemoglobin A1c Lactic Acid Calcium Phosphorus Magnesium AST ALT Ammonia Troponin T Total Protein Albumin Triglycerides LDL Cholesterol Direct HDL Cholesterol Urine Creatinine Urine Total Protein 07/26/22 07/26/22 07/26/22 07:59 08:58 10:04 WBC RBC Hgb Hct MCHC RDW Plt Count [place] # (Auto) Seg Neutrophils % Seg Neuts % (Manual) Lymphocytes % (Manual) Seg Neutrophils # Seg Neutrophils # Man Lymphocytes # (Manual) ABG pH ABG pO2 ABG HCO3 ABG O2 Saturation ABG Base Excess ABG Hemoglobin Sodium Potassium Chloride Carbon Dioxide BUN Creatinine Glucose POC Glucose 269 H 277 H 244 H Hemoglobin A1c Lactic Acid Calcium Phosphorus Magnesium AST ALT Ammonia Troponin T Total Protein Albumin Triglycerides LDL Cholesterol Direct HDL Cholesterol Urine Creatinine Urine Total Protein 07/26/22 07/26/22 07/26/22 11:03 11:53 13:08 WBC RBC Hgb Hct MCHC RDW Plt Count [place] # (Auto) Seg Neutrophils % Seg Neuts % (Manual) Lymphocytes % (Manual) Seg Neutrophils # Seg Neutrophils # Man Lymphocytes # (Manual) ABG pH ABG pO2 ABG HCO3 ABG O2 Saturation ABG Base Excess ABG Hemoglobin Sodium Potassium Chloride Carbon Dioxide BUN Creatinine Glucose POC Glucose 253 H 213 H 194 H Hemoglobin A1c Lactic Acid Calcium Phosphorus Magnesium AST ALT Ammonia Troponin T Total Protein Albumin Triglycerides LDL Cholesterol Direct HDL Cholesterol Urine Creatinine Urine Total Protein 07/26/22 07/26/22 07/26/22 14:24 14:56 14:57 WBC RBC Hgb Hct MCHC RDW Plt Count [place] # (Auto) Seg Neutrophils % Seg Neuts % (Manual) Lymphocytes % (Manual) Seg Neutrophils # Seg Neutrophils # Man Lymphocytes # (Manual) ABG pH ABG pO2 ABG HCO3 ABG O2 Saturation ABG Base Excess ABG Hemoglobin Sodium Potassium Chloride Carbon Dioxide BUN Creatinine Glucose POC Glucose 185 H 236 H 207 H Hemoglobin A1c Lactic Acid Calcium Phosphorus Magnesium AST ALT Ammonia Troponin T Total Protein Albumin Triglycerides LDL Cholesterol Direct HDL Cholesterol Urine Creatinine Urine Total Protein 07/26/22 07/26/22 07/26/22 15:36 15:36 15:36 WBC RBC Hgb Hct MCHC RDW Plt Count [place] # (Auto) Seg Neutrophils % Seg Neuts % (Manual) Lymphocytes % (Manual) Seg Neutrophils # Seg Neutrophils # Man Lymphocytes # (Manual) ABG pH ABG pO2 ABG HCO3 ABG O2 Saturation ABG Base Excess ABG Hemoglobin Sodium 160 H Potassium Chloride 126.2 H Carbon Dioxide 18 L BUN 59 H Creatinine 3.2 H Glucose 227 H POC Glucose Hemoglobin A1c Lactic Acid 9.70 H* Calcium 7.1 L Phosphorus Magnesium AST ALT Ammonia Troponin T 0.049 H D Total Protein Albumin Triglycerides LDL Cholesterol Direct HDL Cholesterol Urine Creatinine Urine Total Protein 07/26/22 07/26/22 07/26/22 15:57 16:32 17:04 WBC RBC Hgb Hct MCHC RDW Plt Count [place] # (Auto) Seg Neutrophils % Seg Neuts % (Manual) Lymphocytes % (Manual) Seg Neutrophils # Seg Neutrophils # Man Lymphocytes # (Manual) ABG pH ABG pO2 ABG HCO3 ABG O2 Saturation ABG Base Excess ABG Hemoglobin Sodium Potassium Chloride Carbon Dioxide BUN Creatinine Glucose POC Glucose 207 H 189 H 219 H Hemoglobin A1c Lactic Acid Calcium Phosphorus Magnesium AST ALT Ammonia Troponin T Total Protein Albumin Triglycerides LDL Cholesterol Direct HDL Cholesterol Urine Creatinine Urine Total Protein 07/26/22 07/26/22 07/26/22 18:00 18:10 18:52 WBC RBC Hgb Hct MCHC RDW Plt Count [place] # (Auto) Seg Neutrophils % Seg Neuts % (Manual) Lymphocytes % (Manual) Seg Neutrophils # Seg Neutrophils # Man Lymphocytes # (Manual) ABG pH ABG pO2 ABG HCO3 ABG O2 Saturation ABG Base Excess ABG Hemoglobin Sodium Potassium Chloride Carbon Dioxide BUN Creatinine Glucose POC Glucose 197 H 194 H Hemoglobin A1c Lactic Acid Calcium Phosphorus Magnesium AST ALT Ammonia Troponin T Total Protein Albumin Triglycerides LDL Cholesterol Direct HDL Cholesterol Urine Creatinine 118.4 H Urine Total Protein 146 H 0907/26/22 07/26/22 20:47 21:30 21:51 WBC RBC Hgb Hct MCHC RDW Plt Count [place] # (Auto) Seg Neutrophils % Seg Neuts % (Manual) Lymphocytes % (Manual) Seg Neutrophils # Seg Neutrophils # Man Lymphocytes # (Manual) ABG pH ABG pO2 ABG HCO3 ABG O2 Saturation ABG Base Excess ABG Hemoglobin Sodium 155 H Potassium Chloride 123.5 H Carbon Dioxide 16 L BUN 53 H Creatinine 2.9 H Glucose 185 H POC Glucose 134 H 124 H Hemoglobin A1c Lactic Acid Calcium 7.0 L Phosphorus Magnesium AST ALT Ammonia Troponin T Total Protein Albumin Triglycerides LDL Cholesterol Direct HDL Cholesterol Urine Creatinine Urine Total Protein 07/26/22 07/26/22 07/27/22 22:47 23:52 00:45 WBC RBC Hgb Hct MCHC RDW Plt Count [place] # (Auto) Seg Neutrophils % Seg Neuts % (Manual) Lymphocytes % (Manual) Seg Neutrophils # Seg Neutrophils # Man Lymphocytes # (Manual) ABG pH ABG pO2 ABG HCO3 ABG O2 Saturation ABG Base Excess ABG Hemoglobin Sodium 155 H Potassium Chloride 124.2 H Carbon Dioxide 19 L BUN 53 H Creatinine 2.5 H Glucose 168 H POC Glucose 138 H 150 H Hemoglobin A1c Lactic Acid Calcium 6.7 L Phosphorus Magnesium AST ALT Ammonia Troponin T Total Protein Albumin Triglycerides LDL Cholesterol Direct HDL Cholesterol Urine Creatinine Urine Total Protein 07/27/22 07/27/22 07/27/22 00:58 02:45 03:50 WBC 15.4 H RBC Hgb Hct MCHC RDW 15.3 H Plt Count 60 L [place] # (Auto) Seg Neutrophils % Seg Neuts % (Manual) 78.0 H Lymphocytes % (Manual) 3.0 L Seg Neutrophils # Seg Neutrophils # Man 12.0 H Lymphocytes # (Manual) 0.5 L ABG pH ABG pO2 ABG HCO3 ABG O2 Saturation ABG Base Excess ABG Hemoglobin Sodium Potassium Chloride Carbon Dioxide BUN Creatinine Glucose POC Glucose 153 H 150 H Hemoglobin A1c Lactic Acid Calcium Phosphorus Magnesium AST ALT Ammonia Troponin T Total Protein Albumin Triglycerides LDL Cholesterol Direct HDL Cholesterol Urine Creatinine Urine Total Protein 07/27/22 07/27/22 07/27/22 03:50 03:55 04:57 WBC RBC Hgb Hct MCHC RDW Plt Count [place] # (Auto) Seg Neutrophils % Seg Neuts % (Manual) Lymphocytes % (Manual) Seg Neutrophils # Seg Neutrophils # Man Lymphocytes # (Manual) ABG pH ABG pO2 110.1 H ABG HCO3 13.3 L ABG O2 Saturation ABG Base Excess -9.0 L ABG Hemoglobin 13.1 L Sodium 154 H Potassium Chloride 123.0 H Carbon Dioxide 19 L BUN 55 H Creatinine 2.8 H Glucose 153 H POC Glucose 112 H Hemoglobin A1c Lactic Acid Calcium 6.8 L Phosphorus 1.30 L Magnesium AST 64 H ALT Ammonia Troponin T Total Protein 4.1 L D Albumin 2.1 L Triglycerides LDL Cholesterol Direct HDL Cholesterol Urine Creatinine Urine Total Protein 07/27/22 07/27/22 07/27/22 08:22 09:30 10:49 WBC RBC Hgb Hct MCHC RDW Plt Count [place] # (Auto) Seg Neutrophils % Seg Neuts % (Manual) Lymphocytes % (Manual) Seg Neutrophils # Seg Neutrophils # Man Lymphocytes # (Manual) ABG pH ABG pO2 ABG HCO3 ABG O2 Saturation ABG Base Excess ABG Hemoglobin Sodium Potassium Chloride Carbon Dioxide BUN Creatinine Glucose POC Glucose 146 H 153 H 163 H Hemoglobin A1c Lactic Acid Calcium Phosphorus Magnesium AST ALT Ammonia Troponin T Total Protein Albumin Triglycerides LDL Cholesterol Direct HDL Cholesterol Urine Creatinine Urine Total Protein 07/27/22 07/27/22 07/27/22 12:13 12:44 17:17 WBC RBC Hgb Hct MCHC RDW Plt Count [place] # (Auto) Seg Neutrophils % Seg Neuts % (Manual) Lymphocytes % (Manual) Seg Neutrophils # Seg Neutrophils # Man Lymphocytes # (Manual) ABG pH ABG pO2 ABG HCO3 ABG O2 Saturation ABG Base Excess ABG Hemoglobin Sodium Potassium Chloride Carbon Dioxide BUN Creatinine Glucose POC Glucose 190 H 287 H Hemoglobin A1c 12.3 H Lactic Acid Calcium Phosphorus Magnesium AST ALT Ammonia Troponin T Total Protein Albumin Triglycerides LDL Cholesterol Direct HDL Cholesterol Urine Creatinine Urine Total Protein 07/28/22 07/28/22 07/28/22 00:22 03:58 04:05 WBC RBC Hgb Hct MCHC RDW Plt Count [place] # (Auto) Seg Neutrophils % Seg Neuts % (Manual) Lymphocytes % (Manual) Seg Neutrophils # Seg Neutrophils # Man Lymphocytes # (Manual) ABG pH ABG pO2 171.2 H ABG HCO3 12.3 L ABG O2 Saturation 99.2 H ABG Base Excess -9.7 L ABG Hemoglobin 10.9 L Sodium 148 H Potassium Chloride 117.0 H Carbon Dioxide 16 L BUN 74 H Creatinine 3.2 H Glucose 471 H POC Glucose 379 H Hemoglobin A1c Lactic Acid Calcium 6.2 L Phosphorus Magnesium AST ALT Ammonia Troponin T Total Protein Albumin Triglycerides LDL Cholesterol Direct HDL Cholesterol Urine Creatinine Urine Total Protein 07/28/22 07/28/22 04:05 05:36 WBC 13.9 H RBC Hgb 11.2 L Hct MCHC 31 L RDW 15.9 H Plt Count 48 L [place] # (Auto) Seg Neutrophils % Seg Neuts % (Manual) Lymphocytes % (Manual) Seg Neutrophils # Seg Neutrophils # Man Lymphocytes # (Manual) ABG pH ABG pO2 ABG HCO3 ABG O2 Saturation ABG Base Excess ABG Hemoglobin Sodium Potassium Chloride Carbon Dioxide BUN Creatinine Glucose POC Glucose 390 H Hemoglobin A1c Lactic Acid Calcium Phosphorus Magnesium AST ALT Ammonia Troponin T Total Protein Albumin Triglycerides LDL Cholesterol Direct HDL Cholesterol Urine Creatinine Urine Total Protein
--- NOTE | 2022-07-28 15:24 | Progress Note ---
Assessment and Plan 77 yo male with htn, dm, cadx, who presents with respiratory distress and s/p cardiac arrest (asystole; rosc ~13 mins). Currently noted with severe encephalopathy. 1. Anoxic / Hypoxic Brain Injury / Encephalopathy - concern is raised based on clinical hx and exam and mri imaging (official report pending); concern for futile care is raised therefore unclear of significance of neuro clearance for anticoagulation (per cardiology rec). 2. Status Epilepticus (subclinical) - eeg report pending. 3. Acute Metabolic Encephalopaty - in the setting of kidney injury / respiratory distress. 4. Hypertension - aim for permissive htn for now. 5. DM - aim for euglycemia. Sarath Ramesh MD Neurology [id number] Subjective Date of service: 07/28/22 Principal diagnosis: Hypernatremia, ARF Interval history: Per RN, no clinical seizure activity noted; mri images reviewed and concern raised for diffuse anoxic injur, official report pending; Objective - Exam Narrative Exam: Gen: nad, intubated; Head: normocephalic; Eyes: no gaze deviation; ENT: +ETT; CVS: warm and well-perfused; Pulm: no respiratory distress; GI: appears non-distended; Ext: no cyanosis appreciated at distal extremities; Skin: no acute rash appreciated at distal extremities; Heme: no pathologic ecchymosis appreciated at distal extremities; Neuro: obtunded, intubated, aphasic; CN 2 - sluggish reactive pupils, CN 3, 4, 6 - oculocephalic absent with primary dysconjugage gaze, CN 5/7 - corneal reflex present, CN 9/10 - absent cough reflex via ETT but change in breathing pattern during exam (tachypneic), CN 11/12 - pt cannot cooperate secondary to LOC; Motor/Sensory - 0/5 at all exts to tactile stimuli; Cerebellar/Gait - pt cannot cooperate secondary to LOC; - Vital Sign Vital Signs - 12hr 07/28/22 07/28/22 07/28/22 03:17 03:30 04:00 Temperature 100.6 F H Pulse Rate 110 H 108 H 112 H Pulse Rate [ 126 H From Monitor] Respiratory 31 H 33 H Rate Blood Pressure 84/57 110/65 O2 Sat by Pulse 100 Oximetry 07/28/22 07/28/22 07/28/22 04:30 05:01 05:30 Temperature Pulse Rate 100 H 110 H 114 H Pulse Rate [ From Monitor] Respiratory 32 H 32 H 32 H Rate Blood Pressure 110/65 110/65 107/71 O2 Sat by Pulse 100 100 Oximetry 07/28/22 07/28/22 07/28/22 06:00 06:30 07:00 Temperature Pulse Rate 106 H 97 H 100 H Pulse Rate [ From Monitor] Respiratory 26 H 28 H 28 H Rate Blood Pressure 119/63 112/66 101/66 O2 Sat by Pulse 100 99 100 Oximetry 07/28/22 07/28/22 07/28/22 07:30 08:00 08:24 Temperature 100 F H Pulse Rate 101 H 105 H 105 H Pulse Rate [ 126 H From Monitor] Respiratory 30 H 33 H Rate Blood Pressure 110/63 105/65 105/65 O2 Sat by Pulse 100 100 100 Oximetry 07/28/22 07/28/22 07/28/22 08:30 09:00 09:30 Temperature Pulse Rate 108 H 100 H 106 H Pulse Rate [ From Monitor] Respiratory 29 H 30 H 29 H Rate Blood Pressure 110/65 115/67 117/71 O2 Sat by Pulse 100 100 100 Oximetry 07/28/22 07/28/22 07/28/22 10:00 10:30 11:00 Temperature Pulse Rate 113 H 105 H 107 H Pulse Rate [ From Monitor] Respiratory 29 H 29 H 30 H Rate Blood Pressure 117/69 117/69 117/69 O2 Sat by Pulse 100 100 Oximetry 07/28/22 07/28/22 07/28/22 11:30 12:00 12:40 Temperature 100.2 F H Pulse Rate 111 H 107 H Pulse Rate [ 126 H From Monitor] Respiratory 32 H 33 H 33 H Rate Blood Pressure 126/81 126/81 O2 Sat by Pulse 100 100 Oximetry 07/28/22 07/28/22 07/28/22 12:41 13:00 13:30 Temperature Pulse Rate 121 H 112 H 107 H Pulse Rate [ From Monitor] Respiratory 26 H 29 H Rate Blood Pressure 126/81 134/79 136/77 O2 Sat by Pulse 100 100 100 Oximetry 07/28/22 14:00 Temperature Pulse Rate 112 H Pulse Rate [ From Monitor] Respiratory 30 H Rate Blood Pressure 132/72 O2 Sat by Pulse 100 Oximetry - Laboratory Findings CBC and BMP: 07/28/22 04:05 07/28/22 04:05 Abnormal Lab Findings: Abnormal Labs 07/25/22 07/25/22 07/25/22 19:37 19:37 19:37 WBC 18.8 H RBC 6.31 H Hgb 18.8 H Hct 57.3 H MCHC RDW Plt Count [place] # (Auto) 1.4 H Seg Neutrophils % 70.7 H Seg Neuts % (Manual) Lymphocytes % (Manual) Seg Neutrophils # 13.3 H Seg Neutrophils # Man Lymphocytes # (Manual) ABG pH ABG pO2 ABG HCO3 ABG O2 Saturation ABG Base Excess ABG Hemoglobin Sodium 149 H Potassium Chloride 110.3 H Carbon Dioxide 18 L BUN 73 H Creatinine 3.3 H Glucose 761 H* POC Glucose Hemoglobin A1c Lactic Acid Calcium 10.6 H Phosphorus Magnesium 3.10 H AST 63 H ALT 64 H Ammonia Troponin T 0.072 H Total Protein 9.0 H Albumin Triglycerides 362 H LDL Cholesterol Direct 44 L HDL Cholesterol 34 L Urine Creatinine Urine Total Protein 07/25/22 07/25/22 07/25/22 19:37 21:08 22:10 WBC RBC Hgb Hct MCHC RDW Plt Count [place] # (Auto) Seg Neutrophils % Seg Neuts % (Manual) Lymphocytes % (Manual) Seg Neutrophils # Seg Neutrophils # Man Lymphocytes # (Manual) ABG pH ABG pO2 ABG HCO3 ABG O2 Saturation ABG Base Excess ABG Hemoglobin Sodium 155 H Potassium Chloride 113.1 H Carbon Dioxide 14 L BUN 74 H Creatinine 3.5 H Glucose 734 H* POC Glucose Hemoglobin A1c Lactic Acid 12.70 H* Calcium Phosphorus Magnesium AST ALT Ammonia 64.0 H Troponin T Total Protein Albumin Triglycerides LDL Cholesterol Direct HDL Cholesterol Urine Creatinine Urine Total Protein 07/25/22 07/25/22 07/26/22 22:20 23:29 00:13 WBC RBC Hgb Hct MCHC RDW Plt Count [place] # (Auto) Seg Neutrophils % Seg Neuts % (Manual) Lymphocytes % (Manual) Seg Neutrophils # Seg Neutrophils # Man Lymphocytes # (Manual) ABG pH 7.342 L ABG pO2 318.2 H ABG HCO3 14.4 L ABG O2 Saturation 99.5 H ABG Base Excess -9.4 L ABG Hemoglobin Sodium 157 H Potassium 3.1 L D Chloride 114.0 H Carbon Dioxide 21 L D BUN 72 H Creatinine 3.7 H Glucose 615 H* POC Glucose > 600 H Hemoglobin A1c Lactic Acid Calcium Phosphorus Magnesium AST ALT Ammonia Troponin T Total Protein Albumin Triglycerides LDL Cholesterol Direct HDL Cholesterol Urine Creatinine Urine Total Protein 07/26/22 07/26/22 07/26/22 00:13 00:38 00:39 WBC 21.4 H RBC 5.88 H Hgb 17.2 H Hct 55.0 H MCHC 31 L RDW 16.0 H Plt Count [place] # (Auto) Seg Neutrophils % Seg Neuts % (Manual) 77.0 H Lymphocytes % (Manual) 13.0 L Seg Neutrophils # Seg Neutrophils # Man 16.5 H Lymphocytes # (Manual) ABG pH ABG pO2 ABG HCO3 ABG O2 Saturation ABG Base Excess ABG Hemoglobin Sodium Potassium Chloride Carbon Dioxide BUN Creatinine Glucose POC Glucose 517 H Hemoglobin A1c Lactic Acid 9.10 H* Calcium Phosphorus Magnesium AST ALT Ammonia Troponin T Total Protein Albumin Triglycerides LDL Cholesterol Direct HDL Cholesterol Urine Creatinine Urine Total Protein 07/26/22 07/26/22 07/26/22 00:39 01:32 02:28 WBC RBC Hgb Hct MCHC RDW Plt Count [place] # (Auto) Seg Neutrophils % Seg Neuts % (Manual) Lymphocytes % (Manual) Seg Neutrophils # Seg Neutrophils # Man Lymphocytes # (Manual) ABG pH ABG pO2 ABG HCO3 ABG O2 Saturation ABG Base Excess ABG Hemoglobin Sodium Potassium Chloride Carbon Dioxide BUN Creatinine Glucose POC Glucose 460 H 237 H Hemoglobin A1c Lactic Acid Calcium Phosphorus 1.20 L D Magnesium 4.10 H AST ALT Ammonia Troponin T Total Protein Albumin Triglycerides LDL Cholesterol Direct HDL Cholesterol Urine Creatinine Urine Total Protein 07/26/22 07/26/22 07/26/22 03:03 03:07 04:11 WBC RBC Hgb Hct MCHC RDW Plt Count [place] # (Auto) Seg Neutrophils % Seg Neuts % (Manual) Lymphocytes % (Manual) Seg Neutrophils # Seg Neutrophils # Man Lymphocytes # (Manual) ABG pH ABG pO2 ABG HCO3 ABG O2 Saturation ABG Base Excess ABG Hemoglobin Sodium Potassium Chloride Carbon Dioxide BUN Creatinine Glucose POC Glucose 433 H 370 H 338 H Hemoglobin A1c Lactic Acid Calcium Phosphorus Magnesium AST ALT Ammonia Troponin T Total Protein Albumin Triglycerides LDL Cholesterol Direct HDL Cholesterol Urine Creatinine Urine Total Protein 07/26/22 07/26/22 07/26/22 04:35 04:35 04:40 WBC RBC Hgb Hct MCHC RDW Plt Count [place] # (Auto) Seg Neutrophils % Seg Neuts % (Manual) Lymphocytes % (Manual) Seg Neutrophils # Seg Neutrophils # Man Lymphocytes # (Manual) ABG pH 7.301 L ABG pO2 178.2 H ABG HCO3 11.0 L ABG O2 Saturation 99.1 H ABG Base Excess -13.3 L ABG Hemoglobin Sodium 162 H* Potassium 3.0 L Chloride 124.8 H Carbon Dioxide 18 L BUN 69 H Creatinine 3.9 H Glucose 385 H POC Glucose Hemoglobin A1c Lactic Acid 8.20 H* Calcium 7.8 L Phosphorus Magnesium AST ALT Ammonia Troponin T Total Protein Albumin Triglycerides LDL Cholesterol Direct HDL Cholesterol Urine Creatinine Urine Total Protein 07/26/22 07/26/22 07/26/22 05:01 06:14 06:52 WBC RBC Hgb Hct MCHC RDW Plt Count [place] # (Auto) Seg Neutrophils % Seg Neuts % (Manual) Lymphocytes % (Manual) Seg Neutrophils # Seg Neutrophils # Man Lymphocytes # (Manual) ABG pH ABG pO2 ABG HCO3 ABG O2 Saturation ABG Base Excess ABG Hemoglobin Sodium Potassium Chloride Carbon Dioxide BUN Creatinine Glucose POC Glucose 347 H 300 H 278 H Hemoglobin A1c Lactic Acid Calcium Phosphorus Magnesium AST ALT Ammonia Troponin T Total Protein Albumin Triglycerides LDL Cholesterol Direct HDL Cholesterol Urine Creatinine Urine Total Protein 07/26/22 07/26/22 07/26/22 07:59 08:58 10:04 WBC RBC Hgb Hct MCHC RDW Plt Count [place] # (Auto) Seg Neutrophils % Seg Neuts % (Manual) Lymphocytes % (Manual) Seg Neutrophils # Seg Neutrophils # Man Lymphocytes # (Manual) ABG pH ABG pO2 ABG HCO3 ABG O2 Saturation ABG Base Excess ABG Hemoglobin Sodium Potassium Chloride Carbon Dioxide BUN Creatinine Glucose POC Glucose 269 H 277 H 244 H Hemoglobin A1c Lactic Acid Calcium Phosphorus Magnesium AST ALT Ammonia Troponin T Total Protein Albumin Triglycerides LDL Cholesterol Direct HDL Cholesterol Urine Creatinine Urine Total Protein 07/26/22 07/26/22 07/26/22 11:03 11:53 13:08 WBC RBC Hgb Hct MCHC RDW Plt Count [place] # (Auto) Seg Neutrophils % Seg Neuts % (Manual) Lymphocytes % (Manual) Seg Neutrophils # Seg Neutrophils # Man Lymphocytes # (Manual) ABG pH ABG pO2 ABG HCO3 ABG O2 Saturation ABG Base Excess ABG Hemoglobin Sodium Potassium Chloride Carbon Dioxide BUN Creatinine Glucose POC Glucose 253 H 213 H 194 H Hemoglobin A1c Lactic Acid Calcium Phosphorus Magnesium AST ALT Ammonia Troponin T Total Protein Albumin Triglycerides LDL Cholesterol Direct HDL Cholesterol Urine Creatinine Urine Total Protein 07/26/22 07/26/22 07/26/22 14:24 14:56 14:57 WBC RBC Hgb Hct MCHC RDW Plt Count [place] # (Auto) Seg Neutrophils % Seg Neuts % (Manual) Lymphocytes % (Manual) Seg Neutrophils # Seg Neutrophils # Man Lymphocytes # (Manual) ABG pH ABG pO2 ABG HCO3 ABG O2 Saturation ABG Base Excess ABG Hemoglobin Sodium Potassium Chloride Carbon Dioxide BUN Creatinine Glucose POC Glucose 185 H 236 H 207 H Hemoglobin A1c Lactic Acid Calcium Phosphorus Magnesium AST ALT Ammonia Troponin T Total Protein Albumin Triglycerides LDL Cholesterol Direct HDL Cholesterol Urine Creatinine Urine Total Protein 07/26/22 07/26/22 07/26/22 15:36 15:36 15:36 WBC RBC Hgb Hct MCHC RDW Plt Count [place] # (Auto) Seg Neutrophils % Seg Neuts % (Manual) Lymphocytes % (Manual) Seg Neutrophils # Seg Neutrophils # Man Lymphocytes # (Manual) ABG pH ABG pO2 ABG HCO3 ABG O2 Saturation ABG Base Excess ABG Hemoglobin Sodium 160 H Potassium Chloride 126.2 H Carbon Dioxide 18 L BUN 59 H Creatinine 3.2 H Glucose 227 H POC Glucose Hemoglobin A1c Lactic Acid 9.70 H* Calcium 7.1 L Phosphorus Magnesium AST ALT Ammonia Troponin T 0.049 H D Total Protein Albumin Triglycerides LDL Cholesterol Direct HDL Cholesterol Urine Creatinine Urine Total Protein 07/26/22 07/26/22 07/26/22 15:57 16:32 17:04 WBC RBC Hgb Hct MCHC RDW Plt Count [place] # (Auto) Seg Neutrophils % Seg Neuts % (Manual) Lymphocytes % (Manual) Seg Neutrophils # Seg Neutrophils # Man Lymphocytes # (Manual) ABG pH ABG pO2 ABG HCO3 ABG O2 Saturation ABG Base Excess ABG Hemoglobin Sodium Potassium Chloride Carbon Dioxide BUN Creatinine Glucose POC Glucose 207 H 189 H 219 H Hemoglobin A1c Lactic Acid Calcium Phosphorus Magnesium AST ALT Ammonia Troponin T Total Protein Albumin Triglycerides LDL Cholesterol Direct HDL Cholesterol Urine Creatinine Urine Total Protein 07/26/22 07/26/22 07/26/22 18:00 18:10 18:52 WBC RBC Hgb Hct MCHC RDW Plt Count [place] # (Auto) Seg Neutrophils % Seg Neuts % (Manual) Lymphocytes % (Manual) Seg Neutrophils # Seg Neutrophils # Man Lymphocytes # (Manual) ABG pH ABG pO2 ABG HCO3 ABG O2 Saturation ABG Base Excess ABG Hemoglobin Sodium Potassium Chloride Carbon Dioxide BUN Creatinine Glucose POC Glucose 197 H 194 H Hemoglobin A1c Lactic Acid Calcium Phosphorus Magnesium AST ALT Ammonia Troponin T Total Protein Albumin Triglycerides LDL Cholesterol Direct HDL Cholesterol Urine Creatinine 118.4 H Urine Total Protein 146 H 07/26/22 07/26/22 07/26/22 20:47 21:30 21:51 WBC RBC Hgb Hct MCHC RDW Plt Count [place] # (Auto) Seg Neutrophils % Seg Neuts % (Manual) Lymphocytes % (Manual) Seg Neutrophils # Seg Neutrophils # Man Lymphocytes # (Manual) ABG pH ABG pO2 ABG HCO3 ABG O2 Saturation ABG Base Excess ABG Hemoglobin Sodium 155 H Potassium Chloride 123.5 H Carbon Dioxide 16 L BUN 53 H Creatinine 2.9 H Glucose 185 H POC Glucose 134 H 124 H Hemoglobin A1c Lactic Acid Calcium 7.0 L Phosphorus Magnesium AST ALT Ammonia Troponin T Total Protein Albumin Triglycerides LDL Cholesterol Direct HDL Cholesterol Urine Creatinine Urine Total Protein 07/26/22 07/26/22 07/27/22 22:47 23:52 00:45 WBC RBC Hgb Hct MCHC RDW Plt Count [place] # (Auto) Seg Neutrophils % Seg Neuts % (Manual) Lymphocytes % (Manual) Seg Neutrophils # Seg Neutrophils # Man Lymphocytes # (Manual) ABG pH ABG pO2 ABG HCO3 ABG O2 Saturation ABG Base Excess ABG Hemoglobin Sodium 155 H Potassium Chloride 124.2 H Carbon Dioxide 19 L BUN 53 H Creatinine 2.5 H Glucose 168 H POC Glucose 138 H 150 H Hemoglobin A1c Lactic Acid Calcium 6.7 L Phosphorus Magnesium AST ALT Ammonia Troponin T Total Protein Albumin Triglycerides LDL Cholesterol Direct HDL Cholesterol Urine Creatinine Urine Total Protein 07/27/22 07/27/22 07/27/22 00:58 02:45 03:50 WBC 15.4 H RBC Hgb Hct MCHC RDW 15.3 H Plt Count 60 L [place] # (Auto) Seg Neutrophils % Seg Neuts % (Manual) 78.0 H Lymphocytes % (Manual) 3.0 L Seg Neutrophils # Seg Neutrophils # Man 12.0 H Lymphocytes # (Manual) 0.5 L ABG pH ABG pO2 ABG HCO3 ABG O2 Saturation ABG Base Excess ABG Hemoglobin Sodium Potassium Chloride Carbon Dioxide BUN Creatinine Glucose POC Glucose 153 H 150 H Hemoglobin A1c Lactic Acid Calcium Phosphorus Magnesium AST ALT Ammonia Troponin T Total Protein Albumin Triglycerides LDL Cholesterol Direct HDL Cholesterol Urine Creatinine Urine Total Protein 07/27/22 07/27/22 07/27/22 03:50 03:55 04:57 WBC RBC Hgb Hct MCHC RDW Plt Count [place] # (Auto) Seg Neutrophils % Seg Neuts % (Manual) Lymphocytes % (Manual) Seg Neutrophils # Seg Neutrophils # Man Lymphocytes # (Manual) ABG pH ABG pO2 110.1 H ABG HCO3 13.3 L ABG O2 Saturation ABG Base Excess -9.0 L ABG Hemoglobin 13.1 L Sodium 154 H Potassium Chloride 123.0 H Carbon Dioxide 19 L BUN 55 H Creatinine 2.8 H Glucose 153 H POC Glucose 112 H Hemoglobin A1c Lactic Acid Calcium 6.8 L Phosphorus 1.30 L Magnesium AST 64 H ALT Ammonia Troponin T Total Protein 4.1 L D Albumin 2.1 L Triglycerides LDL Cholesterol Direct HDL Cholesterol Urine Creatinine Urine Total Protein 07/27/22 07/27/22 07/27/22 08:22 09:30 10:49 WBC RBC Hgb Hct MCHC RDW Plt Count [place] # (Auto) Seg Neutrophils % Seg Neuts % (Manual) Lymphocytes % (Manual) Seg Neutrophils # Seg Neutrophils # Man Lymphocytes # (Manual) ABG pH ABG pO2 ABG HCO3 ABG O2 Saturation ABG Base Excess ABG Hemoglobin Sodium Potassium Chloride Carbon Dioxide BUN Creatinine Glucose POC Glucose 146 H 153 H 163 H Hemoglobin A1c Lactic Acid Calcium Phosphorus Magnesium AST ALT Ammonia Troponin T Total Protein Albumin Triglycerides LDL Cholesterol Direct HDL Cholesterol Urine Creatinine Urine Total Protein 07/27/22 07/27/22 07/27/22 12:13 12:44 17:17 WBC RBC Hgb Hct MCHC RDW Plt Count [place] # (Auto) Seg Neutrophils % Seg Neuts % (Manual) Lymphocytes % (Manual) Seg Neutrophils # Seg Neutrophils # Man Lymphocytes # (Manual) ABG pH ABG pO2 ABG HCO3 ABG O2 Saturation ABG Base Excess ABG Hemoglobin Sodium Potassium Chloride Carbon Dioxide BUN Creatinine Glucose POC Glucose 190 H 287 H Hemoglobin A1c 12.3 H Lactic Acid Calcium Phosphorus Magnesium AST ALT Ammonia Troponin T Total Protein Albumin Triglycerides LDL Cholesterol Direct HDL Cholesterol Urine Creatinine Urine Total Protein 07/28/22 07/28/22 07/28/22 00:22 03:58 04:05 WBC RBC Hgb Hct MCHC RDW Plt Count [place] # (Auto) Seg Neutrophils % Seg Neuts % (Manual) Lymphocytes % (Manual) Seg Neutrophils # Seg Neutrophils # Man Lymphocytes # (Manual) ABG pH ABG pO2 171.2 H ABG HCO3 12.3 L ABG O2 Saturation 99.2 H ABG Base Excess -9.7 L ABG Hemoglobin 10.9 L Sodium 148 H Potassium Chloride 117.0 H Carbon Dioxide 16 L BUN 74 H Creatinine 3.2 H Glucose 471 H POC Glucose 379 H Hemoglobin A1c Lactic Acid Calcium 6.2 L Phosphorus Magnesium AST ALT Ammonia Troponin T Total Protein Albumin Triglycerides LDL Cholesterol Direct HDL Cholesterol Urine Creatinine Urine Total Protein 07/28/22 07/28/22 04:05 05:36 WBC 13.9 H RBC Hgb 11.2 L Hct MCHC 31 L RDW 15.9 H Plt Count 48 L [place] # (Auto) Seg Neutrophils % Seg Neuts % (Manual) Lymphocytes % (Manual) Seg Neutrophils # Seg Neutrophils # Man Lymphocytes # (Manual) ABG pH ABG pO2 ABG HCO3 ABG O2 Saturation ABG Base Excess ABG Hemoglobin Sodium Potassium Chloride Carbon Dioxide BUN Creatinine Glucose POC Glucose 390 H Hemoglobin A1c Lactic Acid Calcium Phosphorus Magnesium AST ALT Ammonia Troponin T Total Protein Albumin Triglycerides LDL Cholesterol Direct HDL Cholesterol Urine Creatinine Urine Total Protein
--- NOTE | 2022-07-28 16:59 | Magnetic Resonance Report ---
MR brain wo con INDICATION / CLINICAL INFORMATION: 77 years Male; s/p cardiac arrest; hypoxic / anoxic injury. TECHNIQUE: Multiplanar, multisequence MR images of the brain were obtained. COMPARISON: The study is compared to the previous MRI of 02/16/2020. FINDINGS: BRAIN / INTRACRANIAL CONTENTS: There is encephalomalacia involving left SLOT FLOORPERSON distribution compatible w ith old the infarct at. There is otherwise extensive periventricular white matter changes most consis tent with microvascular angiopathy. However, there is also diffuse increased FLAIR and T2-weighted si gnal involving remaining cerebral cortex and cerebellum as well as the basal ganglia, greater on the right. Additionally, there is corresponding diffuse diffusion abnormality of findings would be compat ible with global brain hypoxia and ischemic changes in this patient with given history of cardiac arr est. There is mild infarct along the left cranial radiata which extends along the posterior left basa l ganglia. There is ex vacuo dilatation of the left lateral ventricle. Otherwise, the ventricular system appears appropriate in size at. No extra-axial fluid collections are identified on the current study. CRANIOCERVICAL JUNCTION: No significant abnormality. VASCULAR FLOW-VOIDS: The intracranial ICAs and vertebrobasilar system grossly demonstrate appropriate signal voids. ORBITS: No significant abnormality of visualized orbits. SINUSES / MASTOIDS: There is scattered opacification and mucosal thickening within the ethmoid air ce lls as well as the sphenoid and maxillary sinuses. ADDITIONAL FINDINGS: None. IMPRESSION: 1. There is diffuse diffusion abnormality involving cerebral and cerebellum compatible with diffuse h ypoxia given the patient's history. 2. 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 Is also old infarct involving left ramesh radiata. Signer Name: Fei Lovell MD Signed: 07/28/2022 4:55 PM Workstation Name: [id number]
--- NOTE | 2022-07-28 17:55 | Progress Note ---
Assessment and Plan Assessment and plan: Assessment/ Plan This is a 77-year-old male with DM, paroxysmal atrial fibrillation, HTN, CVA (2020) admitted s/p cardiac arrest with acute hypoxic respiratory failure and DKA Neuro: Acute metabolic encephalopathy, hepatic encephalopathy, r/o ALEC and subclinical status epilepticus, h/o CVA (2019) -Sluggish pupils, no cough/gag, periodic spontaneous respiration -Neurology consulted, appreciate recommendations -Initial CT head with no acute abnormality -Repeat CT head without contrast of preferably MRI brain without contrast when clinically stable -EEG completed -Per neurology aim for euglycemia and permissive hypertension for now -Ammonia 64 -MRI brain pending Cardiac: S/p cardiac arrest, A. fib RVR, h/o hypertension, paroxysmal atrial fibrillation, hyperlipidemia -Patient suffered cardiac arrest on 07/25 in the ED and then was noted to be in A. fib with RVR -Amiodarone drip -Cardiology consulted, appreciate recommendations -Blood pressure monitoring per protocol -S/p vasopressor support with Levophed and vasopressin -MAP goal greater than 65 -Echocardiogram shows EF 50 to 60%, no pericardial effusion -Lipitor Respiratory: Acute hypoxic respiratory failure -CCM consulted, appreciate recommendations -Intubated on 07/25 with a 8.00 ETT in the ED -A.m. vent settings: Assist-control rate 20, tidal volume 450, PEEP 6, FiO2 40% -See RT notes for titration -A.m. ABG and CXR noted -VAP bundle -SPO2 monitoring GI: Protein calorie malnutrition -NTR consult for tube feeding -24-hour +1762 mL -PPI : Hypernatremia, metabolic acidosis, acute kidney injury likely secondary to vasomotor nephropathy -S/p 4 L LR bolus -Nephrology consulted, appreciate recommendations -Serum creatinine 03/08/2020 was 1.3 -s/p IVF -Monitor intake and output -Renally dose medications -Avoid nephrotoxic medications -FeNa 1.8% -FWF 150ml q 4 hr -Renal ultrasound noted -Trend BMP ID: Sepsis, Klebsiella pneumonia -Hypotension, acute kidney injury, acute respiratory failure, lactic acidosis -Antibiotic therapy with cefepime -Solu-Cortef 100 mg every 8 -f/u blood culture -Monitor WBC and temperature curve Endo: s/p DKA, h/o DM -Presented with anion gap of 21, glucose of 761, VBG 7.362 -s/p Insulin drip -Accu-Cheks q6hr -SSI -Long-acting insulin when able -Hemaglobin A1C 12.3 Heme: Leukocytosis, thrombocytopenia -Trend CBC -Transfuse hemoglobin less than 7 -SCDs to BLE while in bed The high probability of a clinically significant, sudden or life threatening deterioration of the [multi] system(s) required my full and direct attention, intervention and personal management. The aggregate critical care time was [60] minutes. This time is in addition to time spent performing reported procedures but includes the following: [x] Data Review and interpretation [x] Patient assessment and monitoring of vital signs [x] Documentation [x] Medication orders and management Disposition Plan: icu Total Time Spent with Patient (Minutes): 60 History Interval history: This is a 77-year-old male who is [facility] patient at [facility] with DM, paroxysmal atrial fibrillation, HTN, CVA (2020) presents the emergency department on 07/26 via EMS with hypoglycemia and unresponsiveness. In the emergency department patient was deciding 7% on room air and was placed on nonrebreather but sats have increased to greater than 81% and the patient was obtunded therefore ED physician decided to intubate the patient. Per documentation after intubation patient went into PEA arrest and ACLS was initiated and ROSC was achieved after approximately 13 minutes. Work-up in the emergency department revealed leukocytosis, hyponatremia 155, elevated BUN/creatinine at 3.5/74, anion gap metabolic acidosis and hyperglycemia 734. Patient was admitted to the hospital service with consults to cardiology, CCM and nephrology on DKA protocol on mechanical ventilation. Hospital course to date: 07/26: Patient is on any sedation, very sluggish pupillary response, no cough/gag noted, no seizure activity. Neurology recs repeat CT head without contrast or MRI brain without contrast when clinically stable. Patient also had a EEG completed today. Patient is currently maxed on Levophed and vasopressin. Given several LR boluses today. Antibiotics broadened and stress dose steroids added. 07/27: Weaning pressors, phosphorus repleted, SSI and long-acting insulin initiated, tube feeding initiated. Patient now has a hypoactive cough/gag. CT head pending. LR bolus. Thrombocytopenia noted. Cardiology would like to start heparin drip due to atrial fibrillation however would like neurology input prior to. 07/28: Patient remains off of vasopressors, patient had MRI today. Worsening renal function noted. Cardiology will hold off amiodarone due to thrombocytopenia. No acute events reported overnight. Hospitalist Physical - Constitutional Vitals: Temp Pulse Resp BP Pulse Ox 100.2 F H 108 H 29 H 139/85 100 07/28/22 12:00 07/28/22 17:00 07/28/22 17:00 07/28/22 17:00 07/28/22 17:00 General appearance: Present: other (Intubated) - EENT Eyes: Absent: PERRL ENT: poor dentition - Neck Neck: Absent: masses or JVD, cervical LAD - Respiratory Respiratory effort: normal Respiratory: bilateral: diminished - Cardiovascular Rhythm: irregularly irregular Heart Sounds: Present: S1 & S2, systolic murmur, diastolic murmur - Extremities Extremities: no ischemia, pulses intact, pulses symmetrical Peripheral Pulses: within normal limits - Abdominal General gastrointestinal: soft, non-tender, normal bowel sounds - Integumentary Integumentary: Present: warm, dry - Psychiatric Psychiatric: other - Neurologic Neurologic: other (very weak cough/gag, no response to stimuli,) - Allied Health Allied health notes reviewed: nursing, RT, social work HEART Score - HEART Score Troponin: Troponin T 0.049 ng/mL (0.00-0.029) H D 07/26/22 15:36 Results - Labs CBC & Chem 7: 07/28/22 04:05 07/28/22 04:05 Labs: Laboratory Last Values WBC 13.9 K/mm3 (4.5-11.0) H 07/28/22 04:05 RBC 3.97 M/mm3 (3.65-5.03) 07/28/22 04:05 Hgb 11.2 gm/dl (11.8-15.2) L 07/28/22 04:05 Hct 36.1 % (35.5-45.6) 07/28/22 04:05 MCV 91 fl (84-94) 07/28/22 04:05 MCH 28 pg (28-32) 07/28/22 04:05 MCHC 31 % (32-34) L 07/28/22 04:05 RDW 15.9 % (13.2-15.2) H 07/28/22 04:05 Plt Count 48 K/mm3 (140-440) L 07/28/22 04:05 Lymph % (Auto) 21.7 % (13.4-35.0) 07/25/22 19:37 [place] % (Auto) 7.3 % (0.0-7.3) 07/25/22 19:37 Eos % (Auto) 0.0 % (0.0-4.3) 07/25/22 19:37 Baso % (Auto) 0.3 % (0.0-1.8) 07/25/22 19:37 Lymph # (Auto) 4.1 K/mm3 (1.2-5.4) 07/25/22 19:37 [place] # (Auto) 1.4 K/mm3 (0.0-0.8) H 07/25/22 19:37 Eos # (Auto) 0.0 K/mm3 (0.0-0.4) 07/25/22 19:37 Baso # (Auto) 0.1 K/mm3 (0.0-0.1) 07/25/22 19:37 Add Manual Diff Complete 07/27/22 03:50 Total Counted 100 07/27/22 03:50 Seg Neutrophils % 70.7 % (40.0-70.0) H 07/25/22 19:37 Seg Neuts % (Manual) 78.0 % (40.0-70.0) H 07/27/22 03:50 Band Neutrophils % 16.0 % 07/27/22 03:50 Lymphocytes % (Manual) 3.0 % (13.4-35.0) L 07/27/22 03:50 Reactive Lymphs % (Man) 0 % 07/27/22 03:50 Monocytes % (Manual) 2.0 % (0.0-7.3) 07/27/22 03:50 Eosinophils % (Manual) 0 % (0.0-4.3) 07/27/22 03:50 Basophils % (Manual) 0 % (0.0-1.8) 07/27/22 03:50 Metamyelocytes % 1.0 % 07/27/22 03:50 Myelocytes % 0 % 07/27/22 03:50 Promyelocytes % 0 % 07/27/22 03:50 Blast Cells % 0 % 07/27/22 03:50 Nucleated RBC % Not Reportable 07/27/22 03:50 Seg Neutrophils # 13.3 K/mm3 (1.8-7.7) H 07/25/22 19:37 Seg Neutrophils # Man 12.0 K/mm3 (1.8-7.7) H 07/27/22 03:50 Band Neutrophils # 2.5 K/mm3 07/27/22 03:50 Lymphocytes # (Manual) 0.5 K/mm3 (1.2-5.4) L 07/27/22 03:50 Abs React Lymphs (Man) 0.0 K/mm3 07/27/22 03:50 Monocytes # (Manual) 0.3 K/mm3 (0.0-0.8) 07/27/22 03:50 Eosinophils # (Manual) 0.0 K/mm3 (0.0-0.4) 07/27/22 03:50 Basophils # (Manual) 0.0 K/mm3 (0.0-0.1) 07/27/22 03:50 Metamyelocytes # 0.2 K/mm3 07/27/22 03:50 Myelocytes # 0.0 K/mm3 07/27/22 03:50 Promyelocytes # 0.0 K/mm3 07/27/22 03:50 Blast Cells # 0.0 K/mm3 07/27/22 03:50 WBC Morphology Not Reportable 07/27/22 03:50 Hypersegmented Neuts Not Reportable 07/27/22 03:50 Hyposegmented Neuts Not Reportable 07/27/22 03:50 Hypogranular Neuts Not Reportable 07/27/22 03:50 Smudge Cells Not Reportable 07/27/22 03:50 Toxic Granulation Not Reportable 07/27/22 03:50 Toxic Vacuolation Not Reportable 07/27/22 03:50 Dohle Bodies Not Reportable 07/27/22 03:50 Pelger-Huet Anomaly Not Reportable 07/27/22 03:50 Jay Rods Not Reportable 07/27/22 03:50 Platelet Estimate Consistent w auto 07/27/22 03:50 Clumped Platelets Not Reportable 07/27/22 03:50 Plt Clumps, EDTA Not Reportable 07/27/22 03:50 Large Platelets Not Reportable 07/27/22 03:50 Giant Platelets Not Reportable 07/27/22 03:50 Platelet Satelliting Not Reportable 07/27/22 03:50 Plt Morphology Comment Not Reportable 07/27/22 03:50 RBC Morphology Not Reportable 07/27/22 03:50 Dimorphic RBCs Not Reportable 07/27/22 03:50 Polychromasia Not Reportable 07/27/22 03:50 Hypochromasia Not Reportable 07/27/22 03:50 Poikilocytosis Not Reportable 07/27/22 03:50 Anisocytosis Not Reportable 07/27/22 03:50 Microcytosis Not Reportable 07/27/22 03:50 Macrocytosis Not Reportable 07/27/22 03:50 Spherocytes Not Reportable 07/27/22 03:50 Pappenheimer Bodies Not Reportable 07/27/22 03:50 Sickle Cells Not Reportable 07/27/22 03:50 Target Cells Not Reportable 07/27/22 03:50 Tear Drop Cells Not Reportable 07/27/22 03:50 Ovalocytes Not Reportable 07/27/22 03:50 Helmet Cells Not Reportable 07/27/22 03:50 Reynolds-Fitzpatrick Bodies Not Reportable 07/27/22 03:50 [place] Rings Not Reportable 07/27/22 03:50 Leonora Cells Not Reportable 07/27/22 03:50 Bite Cells Not Reportable 07/27/22 03:50 Crenated Cell Not Reportable 07/27/22 03:50 Elliptocytes Not Reportable 07/27/22 03:50 Acanthocytes (Spur) Not Reportable 07/27/22 03:50 Rouleaux Not Reportable 07/27/22 03:50 Hemoglobin C Crystals Not Reportable 07/27/22 03:50 Schistocytes Not Reportable 07/27/22 03:50 Malaria parasites Not Reportable 07/27/22 03:50 [place] Bodies Not Reportable 07/27/22 03:50 Hem Pathologist Commnt No 07/27/22 03:50 ABG pH 7.446 pH Units (7.350-7.450) 07/28/22 03:58 ABG pCO2 18.2 mm Hg 07/28/22 03:58 ABG pO2 171.2 mm Hg (80.0-90.0) H 07/28/22 03:58 ABG HCO3 12.3 mmol/L (20.0-26.0) L 07/28/22 03:58 ABG O2 Saturation 99.2 % (95.0-99.0) H 07/28/22 03:58 ABG O2 Content 15.2 (0.0-44) 07/28/22 03:58 ABG Base Excess -9.7 mmol/L (-2.0-3.0) L 07/28/22 03:58 ABG Hemoglobin 10.9 gm/dl (14.0-18.0) L 07/28/22 03:58 ABG Carboxyhemoglobin 1.2 % (0.0-5.0) 07/28/22 03:58 ABG Methemoglobin 0.5 % (0.0-1.5) 07/28/22 03:58 VBG pH 7.362 (7.320-7.420) 07/25/22 19:37 Oxyhemoglobin 97.5 % (95.0-99.0) 07/28/22 03:58 FiO2 35 % 07/28/22 03:58 Sodium 148 mmol/L (137-145) H 07/28/22 04:05 Potassium 4.6 mmol/L (3.6-5.0) 07/28/22 04:05 Chloride 117.0 mmol/L (98-107) H 07/28/22 04:05 Carbon Dioxide 16 mmol/L (22-30) L 07/28/22 04:05 Anion Gap 20 mmol/L 07/28/22 04:05 BUN 74 mg/dL (9-20) H 07/28/22 04:05 Creatinine 3.2 mg/dL (0.8-1.3) H 07/28/22 04:05 Estimated GFR 19 ml/min 07/28/22 04:05 BUN/Creatinine Ratio 23 % 07/28/22 04:05 Glucose 471 mg/dL (75-100) H 07/28/22 04:05 POC Glucose 399 mg/dL (70-105) H 07/28/22 12:50 Hemoglobin A1c 12.3 % (4-6) H 07/27/22 12:13 Lactic Acid 9.70 mmol/L (0.7-2.0) H* 07/26/22 15:36 Calcium 6.2 mg/dL (8.4-10.2) L 07/28/22 04:05 Phosphorus 1.30 mg/dL (2.5-4.5) L 07/27/22 03:50 Magnesium 2.30 mg/dL (1.7-2.3) 07/27/22 03:50 Total Bilirubin 0.30 mg/dL (0.1-1.2) 07/27/22 03:50 AST 64 units/L (5-40) H 07/27/22 03:50 ALT 31 units/L (7-56) 07/27/22 03:50 Alkaline Phosphatase 61 units/L (35-129) 07/27/22 03:50 Ammonia 64.0 umol/L (25-60) H 07/25/22 19:37 Total Creatine Kinase 158 units/L (55-170) 07/25/22 19:37 CK-MB (CK-2) < 1.0 ng/mL (0.0-4.0) 07/25/22 19:37 CK-MB (CK-2) Rel Index 0.6 (0-4) 07/25/22 19:37 Troponin T 0.049 ng/mL (0.00-0.029) H D 07/26/22 15:36 Total Protein 4.1 g/dL (6.3-8.2) L D 07/27/22 03:50 Albumin 2.1 g/dL (3.9-5) L 07/27/22 03:50 Albumin/Globulin Ratio 1.1 % 07/27/22 03:50 Triglycerides 362 mg/dL (2-149) H 07/25/22 19:37 Cholesterol 126 mg/dL (50-199) 07/25/22 19:37 LDL Cholesterol Direct 44 mg/dL (50-130) L 07/25/22 19:37 HDL Cholesterol 34 mg/dL (40-59) L 07/25/22 19:37 Cholesterol/HDL Ratio 3.70 % 07/25/22 19:37 TSH 2.170 mlU/mL (0.270-4.200) 07/25/22 19:37 Free T4 1.18 ng/dL (0.76-1.46) 07/25/22 19:37 Urine Color Lin (Yellow) 07/26/22 08:31 Urine Turbidity Cloudy (Clear) 07/26/22 08:31 Specific [place] (Man) 1.010 (1.003-1.030) 07/26/22 08:31 Ur Protein (Man) <30 mg dl mg/dL (Negative) 07/26/22 08:31 Ur Ketones (Man) Negative (Negative) 07/26/22 08:31 Ur Nitrite (Man) Negative (Negative) 07/26/22 08:31 Ur Reducing Substances Not Reportable 07/26/22 08:31 Urine Bilirubin (Man) Negative (Negative) 07/26/22 08:31 Urine Ictotest Not Reportable 07/26/22 08:31 Leukocyte Esterase (Man) Trace (Negative) 07/26/22 08:31 Urine WBC (Auto) < 1.0 /HPF (0.0-6.0) 07/26/22 08:31 Urine RBC (Auto) 1.0 /HPF (0.0-6.0) 07/26/22 08:31 U Epithel Cells (Auto) 3.0 /HPF (0-13.0) 07/26/22 08:31 Urine RBC (Manual) 5-10 (Negative) 07/26/22 08:31 Ur Renal Epithelial Cell 3 /LPF 07/26/22 08:31 Urine Mucus Few /HPF 07/26/22 08:31 Urine Creatinine 118.4 mg/dL (0.1-20.0) H 07/26/22 18:10 Protein/Creatinin Ratio 1.23 07/26/22 18:10 Urine Sodium 108 mmol/L 07/26/22 18:10 Urine Total Protein 146 mg/dL (5-11.8) H 07/26/22 18:10 Microbiology: Microbiology 07/25/22 21:50 Tracheal Aspirate Sputum Culture - Final Klebsiella Pneumoniae 07/25/22 22:10 Peripheral/Venous Blood Culture - Preliminary NO GROWTH AFTER 48 HOURS 07/25/22 21:08 Peripheral/Venous Blood Culture - Preliminary NO GROWTH AFTER 48 HOURS Yañez/IV: Voiding Method Indwelling Catheter Active Medications - Current Medications Current Medications: Generic Name Dose Route Start Last Admin Trade Name Freq PRN Reason Stop Dose Admin Acetaminophen 650 mg 07/26/22 00:31 07/28/22 06:00 Acetaminophen 325 Mg Tab PO 650 mg Q4H PRN Administration Pain MILD(1-3)/Fever >100.5/LANTIGUA Acetaminophen 650 mg 07/26/22 02:04 Acetaminophen 650 Mg Rect Supp MA Q4H PRN Pain, Mild (1-3) Albuterol 2.5 mg 07/26/22 00:31 Albuterol 2.5 Mg/3 Ml Nebu IH Q3HRT PRN Shortness Of Breath Atorvastatin Calcium 40 mg 07/26/22 22:00 07/27/22 20:59 Atorvastatin 40 Mg Tab PO 40 mg QHS LIZZIE Administration Dextrose 50 ml 07/27/22 09:25 Dextrose 50% In Water (25gm) 50 Ml Syringe IV Q30MIN PRN Hypoglycemia Protocol Famotidine 10 mg 07/28/22 10:00 07/28/22 10:23 Famotidine 10 Mg Tab FEEDTUBE 10 mg BID LIZZIE Administration Hydrocortisone Sodium Succinate 100 mg 07/26/22 14:00 07/28/22 14:38 Hydrocortisone Sod Succ 100 Mg/2 Ml Vial IV 100 mg Q8HR LIZZIE Administration NORepinephrine/NS 8 MG-250 ML 8 mg in 250 mls @ 3.75 mls/hr 07/25/22 23:00 07/27/22 19:16 Norepinephrine/Ns 8 Mg-250 Ml (Double Conc) IV 0 mcg/min TITRATE LIZZIE 0 mls/hr Titration Protocol 2 MCG/MIN Amiodarone HCl 900 mg/ 500 mls @ 33.333 mls/hr 07/26/22 04:10 07/28/22 05:53 Dextrose IV 0.5 mg/min DIRECT LIZZIE 16.667 mls/hr Administration Protocol 1 MG/MIN Vasopressin 20 unit/ Sodium 101 mls @ 9.09 mls/hr 07/26/22 05:00 07/27/22 19:16 Chloride IV 0 units/min TITR LIZZIE 0 mls/hr Titration Protocol 0.03 UNITS/MIN Cefepime HCl 2 gm in 100 mls @ 200 mls/hr 07/27/22 11:00 07/28/22 11:23 Cefepime/Ns 2 Gm/100 Ml IV 200 mls/hr Q24H LIZZIE Administration Protocol Insulin Glargine 20 units 07/28/22 10:00 07/28/22 11:00 Insulin Glargine 100 Units/Ml SUB-Q 20 units BID LIZZIE Administration Insulin Human Regular 0 units 07/27/22 12:00 07/28/22 12:58 Insulin Regular, Human 100 Units/1 Ml SUB-Q 10 units Q6H LIZZIE Administration Protocol Multi-Ingred Cream/Lotion/Oil/Oint 1 applic 07/27/22 03:17 07/27/22 03:35 Mineral Oil/Petrolatum, White Ophth Oint 3.5 Gm OU 1 applic PRN PRN Administration Dry Eye(s) Nitroglycerin 0.4 mg 07/26/22 00:31 Nitroglycerin 0.4 Mg Tab Subl SL Q5M PRN Chest Pain Ondansetron HCl 4 mg 07/26/22 00:31 Ondansetron 4 Mg/2 Ml Inj IV Q8H PRN Nausea And Vomiting Sodium Chloride 10 ml 07/26/22 10:00 07/28/22 10:24 Sodium Chloride 0.9% 10 Ml Flush Syringe IV 10 ml BID LIZZIE Administration Sodium Chloride 10 ml 07/26/22 00:31 Sodium Chloride 0.9% 10 Ml Flush Syringe IV PRN PRN LINE FLUSH Nutrition/Malnutrition Assess - Dietary Evaluation Nutrition/Malnutrition Findings: Nutrition Notes Start: 07/26/22 10:25 Freq: Status: Active Protocol: Document 07/28/22 16:31 PEACE (Rec: 07/28/22 16:47 PEACE [id number]) Nutrition Notes Initial or Follow up Reassessment Current Diagnosis Acute Kidney Injury,Diabetes, Hypertension,Respiratory Failure,Hyperlipidemia Other Pertinent Diagnosis s/p cardiac arrest, s/p DKA, acute metabolic encephalopathy Current Diet TF - Vital AF 1.2 at 55ml/hr Labs/Tests Na 148 BUN 74 Cr 3.2 BG 471 A1C 12.3 Pertinent Medications Amiodarone gtt, Solu-Cortef Height 5 ft 5 in Weight 49.8 kg [place] Body Weight (kg) 61.81 BMI 18.2 Weight change and time frame Bed scale not working; pt appears to be at least 67 in tall and weigh more than 49. 8kg at this time; generalized edema present Subjective/Other Information Observed Vital AF 1.2 infusing at 35ml/hr. Pt remains on vent support. Percent of energy/protein needs met: 72% energy 105% pro Burn Absent Trauma Absent Minimum of two criteria No Fluid Accumulation Mild (non-severe) #1 Nutrition Diagnosis Inadequate oral intake Diagnosis Progress(for reassessment Continues documentation) Is patient on ventilator? Yes Is Patient Ambulatory and/or Out of Bed No REE-([facility]-confined to bed) [phone] Calculation Used for Recommendations [facility] Additional Notes Pro needs 0.8-1.2g/k-60g/ day Fluid needs per MD. Nutrition Intervention Nutrition Support: Change TF formula to Glucerna 1.2 at 45ml/hr with 150ml water flush q4h until hypernatremia resolved. Kcal 1,296 Protein (gm) 65 Carbohydrates (gm) 124 Fat (gm) 65 Fluid (mL) 869 Fiber (gm) 17 Goal #1 TF tolerance Goal #2 TF to provide at least 75% energy and pro needs Follow-Up By: 07/31/22 Additional Comments F/U: TF formula change/ tolerance, vent status, renal function, wt/ht
[2022-07-28] MEDS: INSULIN GLARGINE 100 UNITS/ML SUB-Q SCH (23:33)
[2022-07-29 06:14] LABS: Calcium 6.9 mg/dL (8.4-10.2)
[2022-07-29 06:16] LABS: ABG Base Excess -5.4 mmol/L (-2.0-3.0); ABG HCO3 16.2 mmol/L (20.0-26.0); ABG Methemoglobin 0.5 % (0.0-1.5); ABG Oxygen Saturation 99.1 % (95.0-99.0); ABG PCO2 21.4 mm Hg; ABG PH 7.498 pH Units (7.350-7.450); ABG PO2 166.4 mm Hg (80.0-90.0)
[2022-07-29] MEDS: INSULIN REGULAR, HUMAN 100 UNITS/1 ML SUB-Q SCH ×3 (06:16→17:22)
[2022-07-29] MEDS: HYDROCORTISONE SOD SUCC 100 MG/2 ML VIAL IV SCH ×3 (06:16→21:16)
[2022-07-29] MEDS: FAMOTIDINE 10 MG TAB FEEDTUBE SCH ×2 (09:46→21:17)
[2022-07-29] MEDS: INSULIN GLARGINE 100 UNITS/ML SUB-Q SCH ×2 (09:56→21:16)
[2022-07-29] MEDS: CEFEPIME/NS 2 GM/100 ML 2 GM/100 ML BAG IV SCH (10:00)
--- NOTE | 2022-07-29 12:04 | Progress Note ---
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 Serum creatinine slightly down, non-oliguric Renal ultrasound reviewed. No hydronephrosis. Urine lytes reviewed. Has proteinuria likely from uncontrolled DM Sodium level 151, worsened. Inc free water to 250 mls q4H via TFs Start bicarb tabs for acidosis S/P IVF DKA-S/P insulin drip. On SQ inuslin. Hypotension-S/P Norepi drip Monitor I/O's daily Avoid nephrotoxic agents Continue to monitor renal function closely No acute indication for [employer] Subjective Date of service: 07/29/22 Principal diagnosis: Hypernatremia, ARF Interval history: Making urine. Intubated. On TFs. In ICU. Objective - Exam Narrative Exam: - General Appearance General appearance: intubated, other (Intubated and sedated) Respiratory: Decreased Breath Sounds, Other (Intubated) Heart: S1S2 Gastrointestinal: Present: hypoactive bowel sounds Integumentary: warm and dry Neurologic: other (Sedated) Musculoskeletal: Present: other (mild edema) - Vital Signs Vital signs: Vital Signs - 12hr 07/29/22 07/29/22 07/29/22 00:30 01:00 01:30 Temperature Pulse Rate 100 H 93 H 92 H Pulse Rate [ From Monitor] Respiratory 32 H 29 H 30 H Rate Blood Pressure 143/74 131/78 130/78 O2 Sat by Pulse 99 100 Oximetry 07/29/22 07/29/22 07/29/22 02:00 02:30 02:48 Temperature Pulse Rate 89 89 110 H Pulse Rate [ From Monitor] Respiratory 24 28 H Rate Blood Pressure 130/78 132/77 141/83 O2 Sat by Pulse 100 Oximetry 07/29/22 07/29/22 07/29/22 03:00 03:30 04:00 Temperature 99.6 F Pulse Rate 96 H 96 H 92 H Pulse Rate [ 102 H From Monitor] Respiratory 27 H 28 H 27 H Rate Blood Pressure 136/79 137/79 138/79 O2 Sat by Pulse 100 99 100 Oximetry 07/29/22 07/29/22 07/29/22 05:00 06:00 07:00 Temperature Pulse Rate 86 83 105 H Pulse Rate [ From Monitor] Respiratory 23 20 19 Rate Blood Pressure 141/74 129/68 127/72 O2 Sat by Pulse 98 98 99 Oximetry 07/29/22 07/29/22 07/29/22 07:56 07:57 08:00 Temperature 98.6 F Pulse Rate 83 106 H Pulse Rate [ 112 H From Monitor] Respiratory 22 19 Rate Blood Pressure 129/77 O2 Sat by Pulse 100 100 Oximetry 07/29/22 07/29/22 07/29/22 08:30 09:00 10:00 Temperature Pulse Rate 109 H 109 H 108 H Pulse Rate [ From Monitor] Respiratory 21 13 Rate Blood Pressure 122/85 122/85 127/87 O2 Sat by Pulse 100 100 100 Oximetry 07/29/22 07/29/22 11:00 11:49 Temperature Pulse Rate 113 H 94 H Pulse Rate [ From Monitor] Respiratory 21 Rate Blood Pressure 134/84 134/84 O2 Sat by Pulse 100 Oximetry - Lab 07/29/22 13:40 07/29/22 04:47 Most recent lab results ABG pH 7.498 pH Units (7.350-7.450) H 07/29/22 05:30 ABG pCO2 21.4 mm Hg 07/29/22 05:30 ABG pO2 166.4 mm Hg (80.0-90.0) H 07/29/22 05:30 ABG HCO3 16.2 mmol/L (20.0-26.0) L 07/29/22 05:30 ABG O2 Saturation 99.1 % (95.0-99.0) H 07/29/22 05:30 Calcium 6.9 mg/dL (8.4-10.2) L 07/29/22 04:47 Phosphorus 2.00 mg/dL (2.5-4.5) L D 07/28/22 17:27 Magnesium 2.30 mg/dL (1.7-2.3) 07/27/22 03:50 Urine Creatinine 118.4 mg/dL (0.1-20.0) H 07/26/22 18:10 Urine Sodium 108 mmol/L 07/26/22 18:10 Urine Total Protein 146 mg/dL (5-11.8) H 07/26/22 18:10 Medications & Allergies - Medications Allergies/Adverse Reactions: Allergies aspirin Allergy (Verified 02/15/20 13:24) Swelling iron Allergy (Verified 02/15/20 13:24) Itching Home Medications: Home Medications Medication Instructions Recorded Confirmed Last Taken Type metFORMIN [Glucophage] 1,000 mg PO BID 02/11/14 02/15/20 02/14/20 History Acetaminophen [Acetaminophen ER 650 mg PO Q8HR PRN #20 tablet.er 10/21/19 02/15/20 Unknown Rx TAB] ALBUTEROL NEB's [Proventil 0.083% 2.5 mg IH Q3HRT PRN #30 nebu 03/09/20 Unknown Rx NEBS] Aspirin EC [Halfprin EC] 81 mg PO QDAY #30 tablet. 03/09/20 Unknown Rx AtorvaSTATin [Lipitor] 40 mg FEEDTUBE QHS #30 tablet 03/09/20 Unknown Rx Famotidine [Pepcid] 20 mg FEEDTUBE DAILY #30 tablet 03/09/20 Unknown Rx Insulin Glargine [Lantus VIAL] 50 units SUB-Q QAMDIAB #1 vial 03/09/20 Unknown Rx Insulin Glargine [Lantus VIAL] 50 units SUB-Q QHS #1 vial 03/09/20 Unknown Rx Insulin Regular, Human [HumuLIN R] 0 units SUB-Q Q6HR #1 vial 03/09/20 Unknown Rx Metoclopramide [Reglan ORAL LIQ] 5 mg FEEDTUBE Q6H PRN 30 Days 03/09/20 Unknown Rx Metoprolol [Lopressor TAB] 100 mg FEEDTUBE BID #60 tablet 03/09/20 Unknown Rx amLODIPine 10 mg FEEDTUBE QDAY #30 tablet 03/09/20 Unknown Rx traMADoL [Ultram 50 MG tab] 50 mg FEEDTUBE Q6HR PRN #10 tablet 03/09/20 Unknown Rx Active Medications: Generic Name Dose Route Start Last Admin Trade Name Freq PRN Reason Stop Dose Admin Acetaminophen 650 mg 07/26/22 00:31 07/28/22 06:00 Acetaminophen 325 Mg Tab PO 650 mg Q4H PRN Administration Pain MILD(1-3)/Fever >100.5/LANTIGUA Acetaminophen 650 mg 07/26/22 02:04 Acetaminophen 650 Mg Rect Supp LA Q4H PRN Pain, Mild (1-3) Albuterol 2.5 mg 07/26/22 00:31 Albuterol 2.5 Mg/3 Ml Nebu IH Q3HRT PRN Shortness Of Breath Atorvastatin Calcium 40 mg 07/26/22 22:00 07/28/22 21:21 Atorvastatin 40 Mg Tab PO 40 mg QHS LIZZIE Administration Dextrose 50 ml 07/27/22 09:25 Dextrose 50% In Water (25gm) 50 Ml Syringe IV Q30MIN PRN Hypoglycemia Protocol Famotidine 10 mg 07/28/22 10:00 07/29/22 09:46 Famotidine 10 Mg Tab FEEDTUBE 10 mg BID LIZZIE Administration Hydrocortisone Sodium Succinate 50 mg 07/29/22 10:00 07/29/22 09:46 Hydrocortisone Sod Succ 100 Mg/2 Ml Vial IV 50 mg Q12HR LIZZIE Administration NORepinephrine/NS 8 MG-250 ML 8 mg in 250 mls @ 3.75 mls/hr 07/25/22 23:00 07/27/22 19:16 Norepinephrine/Ns 8 Mg-250 Ml (Double Conc) IV 0 mcg/min TITRATE LIZZIE 0 mls/hr Titration Protocol 2 MCG/MIN Amiodarone HCl 900 mg/ 500 mls @ 33.333 mls/hr 07/26/22 04:10 07/28/22 05:53 Dextrose IV 0.5 mg/min DIRECT LIZZIE 16.667 mls/hr Administration Protocol 1 MG/MIN Vasopressin 20 unit/ Sodium 101 mls @ 9.09 mls/hr 07/26/22 05:00 07/27/22 19:16 Chloride IV 0 units/min TITR LIZZIE 0 mls/hr Titration Protocol 0.03 UNITS/MIN Cefepime HCl 2 gm in 100 mls @ 200 mls/hr 07/27/22 11:00 07/29/22 10:00 Cefepime/Ns 2 Gm/100 Ml IV 200 mls/hr Q24H LIZZIE Administration Protocol Insulin Glargine 30 units 07/28/22 22:00 07/29/22 09:56 Insulin Glargine 100 Units/Ml SUB-Q 30 units BID LIZZIE Administration Insulin Human Regular 0 units 07/27/22 12:00 07/29/22 06:16 Insulin Regular, Human 100 Units/1 Ml SUB-Q 6 units Q6H LIZZIE Administration Protocol Multi-Ingred Cream/Lotion/Oil/Oint 1 applic 07/27/22 03:17 07/27/22 03:35 Mineral Oil/Petrolatum, White Ophth Oint 3.5 Gm OU 1 applic PRN PRN Administration Dry Eye(s) Nitroglycerin 0.4 mg 07/26/22 00:31 Nitroglycerin 0.4 Mg Tab Subl SL Q5M PRN Chest Pain Ondansetron HCl 4 mg 07/26/22 00:31 Ondansetron 4 Mg/2 Ml Inj IV Q8H PRN Nausea And Vomiting Sodium Chloride 10 ml 07/26/22 10:00 07/29/22 09:46 Sodium Chloride 0.9% 10 Ml Flush Syringe IV 10 ml BID LIZZIE Administration Sodium Chloride 10 ml 07/26/22 00:31 Sodium Chloride 0.9% 10 Ml Flush Syringe IV PRN PRN LINE FLUSH
--- NOTE | 2022-07-29 12:36 | Progress Note ---
Assessment and Plan 77 y/o male with cardiac arrest, intubated, not sedated with multisystem organ failure 07/29/22: Drop steroids to 50q8 starting today. CBC not checked, need to evaluate Platelets. Need to correct electrolytes as well. Family is likely going to want trach and peg based on earlier conversations but awaiting more family. Given recent MRI results, prognosis is very poor. 07/28/22: Hold on Volume today. Drop steroids down to 50q8 starting tomorrow. Follow up MRI. EEG results still pending. Platelets still dropping but no evidence of bleeding. Continue abx therapy. Continue feeds. Prognosis is still guarded. 07/27/22: more volume again today. Echo showed normal EF. Wean pressors for MAPs >65, follow up EEg results. Hopeful to get head CT today. Platelets dropped today, not on heparin. Could be sepsis related. If head CT negative, may need to evaluate abdomen around peg. Will start trickle feeds today and transition of insulin drip. Prognosis is still guarded. 1. IVF resusciation with LR 2. Insulin drip and continue NPO state 3. Attempt to wean pressors for MAPs greater than 65 4. Monitor urine output 5. Broaden abx therapy given current clinical state 6. Follow up echo report 7. Agree with stress dose steroids 8. No sedation 9. EEG pending Overall prognosis is guarded to poor, especially given current clinical exam CCT 31 minutes. Subjective Date of service: 07/29/22 Principal diagnosis: Hypernatremia, ARF Interval history: No acute events. MRI is consistent with anoxic brain injury. Objective Vital Signs - 12hr 07/29/22 07/29/22 07/29/22 01:00 01:30 02:00 Temperature Pulse Rate 93 H 92 H 89 Pulse Rate [ From Monitor] Respiratory 29 H 30 H 24 Rate Blood Pressure 131/78 130/78 130/78 O2 Sat by Pulse 100 Oximetry 07/29/22 07/29/22 07/29/22 02:30 02:48 03:00 Temperature Pulse Rate 89 110 H 96 H Pulse Rate [ From Monitor] Respiratory 28 H 27 H Rate Blood Pressure 132/77 141/83 136/79 O2 Sat by Pulse 100 100 Oximetry 07/29/22 07/29/22 07/29/22 03:30 04:00 05:00 Temperature 99.6 F Pulse Rate 96 H 92 H 86 Pulse Rate [ 102 H From Monitor] Respiratory 28 H 27 H 23 Rate Blood Pressure 137/79 138/79 141/74 O2 Sat by Pulse 99 100 98 Oximetry 07/29/22 07/29/22 07/29/22 06:00 07:00 07:56 Temperature Pulse Rate 83 105 H 83 Pulse Rate [ From Monitor] Respiratory 20 19 Rate Blood Pressure 129/68 127/72 O2 Sat by Pulse 98 99 Oximetry 07/29/22 07/29/22 07/29/22 07:57 08:00 08:30 Temperature 98.6 F Pulse Rate 106 H 109 H Pulse Rate [ 112 H From Monitor] Respiratory 22 19 Rate Blood Pressure 129/77 122/85 O2 Sat by Pulse 100 100 100 Oximetry 07/29/22 07/29/22 07/29/22 09:00 10:00 11:00 Temperature Pulse Rate 109 H 108 H 113 H Pulse Rate [ From Monitor] Respiratory 21 13 21 Rate Blood Pressure 122/85 127/87 134/84 O2 Sat by Pulse 100 100 Oximetry 07/29/22 07/29/22 11:49 12:00 Temperature 98.4 F Pulse Rate 94 H 109 H Pulse Rate [ 108 H From Monitor] Respiratory 20 Rate Blood Pressure 134/84 132/83 O2 Sat by Pulse 100 100 Oximetry CBC and BMP: 07/28/22 04:05 07/29/22 04:47 ABG, PT/INR, D-dimer: ABG ABG pH 7.498 pH Units (7.350-7.450) H 07/29/22 05:30 ABG pCO2 21.4 mm Hg 07/29/22 05:30 ABG pO2 166.4 mm Hg (80.0-90.0) H 07/29/22 05:30 ABG O2 Saturation 99.1 % (95.0-99.0) H 07/29/22 05:30 Abnormal lab findings: Abnormal Labs 07/25/22 07/25/22 07/25/22 19:37 19:37 19:37 WBC 18.8 H RBC 6.31 H Hgb 18.8 H Hct 57.3 H MCHC RDW Plt Count [place] # (Auto) 1.4 H Seg Neutrophils % 70.7 H Seg Neuts % (Manual) Lymphocytes % (Manual) Seg Neutrophils # 13.3 H Seg Neutrophils # Man Lymphocytes # (Manual) ABG pH ABG pO2 ABG HCO3 ABG O2 Saturation ABG Base Excess ABG Hemoglobin Sodium 149 H Potassium Chloride 110.3 H Carbon Dioxide 18 L BUN 73 H Creatinine 3.3 H Glucose 761 H* POC Glucose Hemoglobin A1c Lactic Acid Calcium 10.6 H Phosphorus Magnesium 3.10 H AST 63 H ALT 64 H Ammonia Troponin T 0.072 H Total Protein 9.0 H Albumin Triglycerides 362 H LDL Cholesterol Direct 44 L HDL Cholesterol 34 L Urine Creatinine Urine Total Protein 07/25/22 07/25/22 07/25/22 19:37 21:08 22:10 WBC RBC Hgb Hct MCHC RDW Plt Count [place] # (Auto) Seg Neutrophils % Seg Neuts % (Manual) Lymphocytes % (Manual) Seg Neutrophils # Seg Neutrophils # Man Lymphocytes # (Manual) ABG pH ABG pO2 ABG HCO3 ABG O2 Saturation ABG Base Excess ABG Hemoglobin Sodium 155 H Potassium Chloride 113.1 H Carbon Dioxide 14 L BUN 74 H Creatinine 3.5 H Glucose 734 H* POC Glucose Hemoglobin A1c Lactic Acid 12.70 H* Calcium Phosphorus Magnesium AST ALT Ammonia 64.0 H Troponin T Total Protein Albumin Triglycerides LDL Cholesterol Direct HDL Cholesterol Urine Creatinine Urine Total Protein 07/25/22 07/25/22 07/26/22 22:20 23:29 00:13 WBC RBC Hgb Hct MCHC RDW Plt Count [place] # (Auto) Seg Neutrophils % Seg Neuts % (Manual) Lymphocytes % (Manual) Seg Neutrophils # Seg Neutrophils # Man Lymphocytes # (Manual) ABG pH 7.342 L ABG pO2 318.2 H ABG HCO3 14.4 L ABG O2 Saturation 99.5 H ABG Base Excess -9.4 L ABG Hemoglobin Sodium 157 H Potassium 3.1 L D Chloride 114.0 H Carbon Dioxide 21 L D BUN 72 H Creatinine 3.7 H Glucose 615 H* POC Glucose > 600 H Hemoglobin A1c Lactic Acid Calcium Phosphorus Magnesium AST ALT Ammonia Troponin T Total Protein Albumin Triglycerides LDL Cholesterol Direct HDL Cholesterol Urine Creatinine Urine Total Protein 07/26/22 07/26/22 07/26/22 00:13 00:38 00:39 WBC 21.4 H RBC 5.88 H Hgb 17.2 H Hct 55.0 H MCHC 31 L RDW 16.0 H Plt Count [place] # (Auto) Seg Neutrophils % Seg Neuts % (Manual) 77.0 H Lymphocytes % (Manual) 13.0 L Seg Neutrophils # Seg Neutrophils # Man 16.5 H Lymphocytes # (Manual) ABG pH ABG pO2 ABG HCO3 ABG O2 Saturation ABG Base Excess ABG Hemoglobin Sodium Potassium Chloride Carbon Dioxide BUN Creatinine Glucose POC Glucose 517 H Hemoglobin A1c Lactic Acid 9.10 H* Calcium Phosphorus Magnesium AST ALT Ammonia Troponin T Total Protein Albumin Triglycerides LDL Cholesterol Direct HDL Cholesterol Urine Creatinine Urine Total Protein 07/26/22 07/26/22 07/26/22 00:39 01:32 02:28 WBC RBC Hgb Hct MCHC RDW Plt Count [place] # (Auto) Seg Neutrophils % Seg Neuts % (Manual) Lymphocytes % (Manual) Seg Neutrophils # Seg Neutrophils # Man Lymphocytes # (Manual) ABG pH ABG pO2 ABG HCO3 ABG O2 Saturation ABG Base Excess ABG Hemoglobin Sodium Potassium Chloride Carbon Dioxide BUN Creatinine Glucose POC Glucose 460 H 237 H Hemoglobin A1c Lactic Acid Calcium Phosphorus 1.20 L D Magnesium 4.10 H AST ALT Ammonia Troponin T Total Protein Albumin Triglycerides LDL Cholesterol Direct HDL Cholesterol Urine Creatinine Urine Total Protein 07/26/22 07/26/22 07/26/22 03:03 03:07 04:11 WBC RBC Hgb Hct MCHC RDW Plt Count [place] # (Auto) Seg Neutrophils % Seg Neuts % (Manual) Lymphocytes % (Manual) Seg Neutrophils # Seg Neutrophils # Man Lymphocytes # (Manual) ABG pH ABG pO2 ABG HCO3 ABG O2 Saturation ABG Base Excess ABG Hemoglobin Sodium Potassium Chloride Carbon Dioxide BUN Creatinine Glucose POC Glucose 433 H 370 H 338 H Hemoglobin A1c Lactic Acid Calcium Phosphorus Magnesium AST ALT Ammonia Troponin T Total Protein Albumin Triglycerides LDL Cholesterol Direct HDL Cholesterol Urine Creatinine Urine Total Protein 07/26/22 07/26/22 07/26/22 04:35 04:35 04:40 WBC RBC Hgb Hct MCHC RDW Plt Count [place] # (Auto) Seg Neutrophils % Seg Neuts % (Manual) Lymphocytes % (Manual) Seg Neutrophils # Seg Neutrophils # Man Lymphocytes # (Manual) ABG pH 7.301 L ABG pO2 178.2 H ABG HCO3 11.0 L ABG O2 Saturation 99.1 H ABG Base Excess -13.3 L ABG Hemoglobin Sodium 162 H* Potassium 3.0 L Chloride 124.8 H Carbon Dioxide 18 L BUN 69 H Creatinine 3.9 H Glucose 385 H POC Glucose Hemoglobin A1c Lactic Acid 8.20 H* Calcium 7.8 L Phosphorus Magnesium AST ALT Ammonia Troponin T Total Protein Albumin Triglycerides LDL Cholesterol Direct HDL Cholesterol Urine Creatinine Urine Total Protein 07/26/22 07/26/22 07/26/22 05:01 06:14 06:52 WBC RBC Hgb Hct MCHC RDW Plt Count [place] # (Auto) Seg Neutrophils % Seg Neuts % (Manual) Lymphocytes % (Manual) Seg Neutrophils # Seg Neutrophils # Man Lymphocytes # (Manual) ABG pH ABG pO2 ABG HCO3 ABG O2 Saturation ABG Base Excess ABG Hemoglobin Sodium Potassium Chloride Carbon Dioxide BUN Creatinine Glucose POC Glucose 347 H 300 H 278 H Hemoglobin A1c Lactic Acid Calcium Phosphorus Magnesium AST ALT Ammonia Troponin T Total Protein Albumin Triglycerides LDL Cholesterol Direct HDL Cholesterol Urine Creatinine Urine Total Protein 07/26/22 07/26/22 07/26/22 07:59 08:58 10:04 WBC RBC Hgb Hct MCHC RDW Plt Count [place] # (Auto) Seg Neutrophils % Seg Neuts % (Manual) Lymphocytes % (Manual) Seg Neutrophils # Seg Neutrophils # Man Lymphocytes # (Manual) ABG pH ABG pO2 ABG HCO3 ABG O2 Saturation ABG Base Excess ABG Hemoglobin Sodium Potassium Chloride Carbon Dioxide BUN Creatinine Glucose POC Glucose 269 H 277 H 244 H Hemoglobin A1c Lactic Acid Calcium Phosphorus Magnesium AST ALT Ammonia Troponin T Total Protein Albumin Triglycerides LDL Cholesterol Direct HDL Cholesterol Urine Creatinine Urine Total Protein 07/26/22 07/26/22 07/26/22 11:03 11:53 13:08 WBC RBC Hgb Hct MCHC RDW Plt Count [place] # (Auto) Seg Neutrophils % Seg Neuts % (Manual) Lymphocytes % (Manual) Seg Neutrophils # Seg Neutrophils # Man Lymphocytes # (Manual) ABG pH ABG pO2 ABG HCO3 ABG O2 Saturation ABG Base Excess ABG Hemoglobin Sodium Potassium Chloride Carbon Dioxide BUN Creatinine Glucose POC Glucose 253 H 213 H 194 H Hemoglobin A1c Lactic Acid Calcium Phosphorus Magnesium AST ALT Ammonia Troponin T Total Protein Albumin Triglycerides LDL Cholesterol Direct HDL Cholesterol Urine Creatinine Urine Total Protein 07/26/22 07/26/22 07/26/22 14:24 14:56 14:57 WBC RBC Hgb Hct MCHC RDW Plt Count [place] # (Auto) Seg Neutrophils % Seg Neuts % (Manual) Lymphocytes % (Manual) Seg Neutrophils # Seg Neutrophils # Man Lymphocytes # (Manual) ABG pH ABG pO2 ABG HCO3 ABG O2 Saturation ABG Base Excess ABG Hemoglobin Sodium Potassium Chloride Carbon Dioxide BUN Creatinine Glucose POC Glucose 185 H 236 H 207 H Hemoglobin A1c Lactic Acid Calcium Phosphorus Magnesium AST ALT Ammonia Troponin T Total Protein Albumin Triglycerides LDL Cholesterol Direct HDL Cholesterol Urine Creatinine Urine Total Protein 07/26/22 07/26/22 07/26/22 15:36 15:36 15:36 WBC RBC Hgb Hct MCHC RDW Plt Count [place] # (Auto) Seg Neutrophils % Seg Neuts % (Manual) Lymphocytes % (Manual) Seg Neutrophils # Seg Neutrophils # Man Lymphocytes # (Manual) ABG pH ABG pO2 ABG HCO3 ABG O2 Saturation ABG Base Excess ABG Hemoglobin Sodium 160 H Potassium Chloride 126.2 H Carbon Dioxide 18 L BUN 59 H Creatinine 3.2 H Glucose 227 H POC Glucose Hemoglobin A1c Lactic Acid 9.70 H* Calcium 7.1 L Phosphorus Magnesium AST ALT Ammonia Troponin T 0.049 H D Total Protein Albumin Triglycerides LDL Cholesterol Direct HDL Cholesterol Urine Creatinine Urine Total Protein 07/26/22 07/26/22 07/26/22 15:57 16:32 17:04 WBC RBC Hgb Hct MCHC RDW Plt Count [place] # (Auto) Seg Neutrophils % Seg Neuts % (Manual) Lymphocytes % (Manual) Seg Neutrophils # Seg Neutrophils # Man Lymphocytes # (Manual) ABG pH ABG pO2 ABG HCO3 ABG O2 Saturation ABG Base Excess ABG Hemoglobin Sodium Potassium Chloride Carbon Dioxide BUN Creatinine Glucose POC Glucose 207 H 189 H 219 H Hemoglobin A1c Lactic Acid Calcium Phosphorus Magnesium AST ALT Ammonia Troponin T Total Protein Albumin Triglycerides LDL Cholesterol Direct HDL Cholesterol Urine Creatinine Urine Total Protein 07/26/22 07/26/22 07/26/22 18:00 18:10 18:52 WBC RBC Hgb Hct MCHC RDW Plt Count [place] # (Auto) Seg Neutrophils % Seg Neuts % (Manual) Lymphocytes % (Manual) Seg Neutrophils # Seg Neutrophils # Man Lymphocytes # (Manual) ABG pH ABG pO2 ABG HCO3 ABG O2 Saturation ABG Base Excess ABG Hemoglobin Sodium Potassium Chloride Carbon Dioxide BUN Creatinine Glucose POC Glucose 197 H 194 H Hemoglobin A1c Lactic Acid Calcium Phosphorus Magnesium AST ALT Ammonia Troponin T Total Protein Albumin Triglycerides LDL Cholesterol Direct HDL Cholesterol Urine Creatinine 118.4 H Urine Total Protein 146 H 07/26/22 07/26/22 07/26/22 20:47 21:30 21:51 WBC RBC Hgb Hct MCHC RDW Plt Count [place] # (Auto) Seg Neutrophils % Seg Neuts % (Manual) Lymphocytes % (Manual) Seg Neutrophils # Seg Neutrophils # Man Lymphocytes # (Manual) ABG pH ABG pO2 ABG HCO3 ABG O2 Saturation ABG Base Excess ABG Hemoglobin Sodium 155 H Potassium Chloride 123.5 H Carbon Dioxide 16 L BUN 53 H Creatinine 2.9 H Glucose 185 H POC Glucose 134 H 124 H Hemoglobin A1c Lactic Acid Calcium 7.0 L Phosphorus Magnesium AST ALT Ammonia Troponin T Total Protein Albumin Triglycerides LDL Cholesterol Direct HDL Cholesterol Urine Creatinine Urine Total Protein 07/26/22 07/26/22 07/27/22 22:47 23:52 00:45 WBC RBC Hgb Hct MCHC RDW Plt Count [place] # (Auto) Seg Neutrophils % Seg Neuts % (Manual) Lymphocytes % (Manual) Seg Neutrophils # Seg Neutrophils # Man Lymphocytes # (Manual) ABG pH ABG pO2 ABG HCO3 ABG O2 Saturation ABG Base Excess ABG Hemoglobin Sodium 155 H Potassium Chloride 124.2 H Carbon Dioxide 19 L BUN 53 H Creatinine 2.5 H Glucose 168 H POC Glucose 138 H 150 H Hemoglobin A1c Lactic Acid Calcium 6.7 L Phosphorus Magnesium AST ALT Ammonia Troponin T Total Protein Albumin Triglycerides LDL Cholesterol Direct HDL Cholesterol Urine Creatinine Urine Total Protein 07/27/22 07/27/22 07/27/22 00:58 02:45 03:50 WBC 15.4 H RBC Hgb Hct MCHC RDW 15.3 H Plt Count 60 L [place] # (Auto) Seg Neutrophils % Seg Neuts % (Manual) 78.0 H Lymphocytes % (Manual) 3.0 L Seg Neutrophils # Seg Neutrophils # Man 12.0 H Lymphocytes # (Manual) 0.5 L ABG pH ABG pO2 ABG HCO3 ABG O2 Saturation ABG Base Excess ABG Hemoglobin Sodium Potassium Chloride Carbon Dioxide BUN Creatinine Glucose POC Glucose 153 H 150 H Hemoglobin A1c Lactic Acid Calcium Phosphorus Magnesium AST ALT Ammonia Troponin T Total Protein Albumin Triglycerides LDL Cholesterol Direct HDL Cholesterol Urine Creatinine Urine Total Protein 07/27/22 07/27/22 07/27/22 03:50 03:55 04:57 WBC RBC Hgb Hct MCHC RDW Plt Count [place] # (Auto) Seg Neutrophils % Seg Neuts % (Manual) Lymphocytes % (Manual) Seg Neutrophils # Seg Neutrophils # Man Lymphocytes # (Manual) ABG pH ABG pO2 110.1 H ABG HCO3 13.3 L ABG O2 Saturation ABG Base Excess -9.0 L ABG Hemoglobin 13.1 L Sodium 154 H Potassium Chloride 123.0 H Carbon Dioxide 19 L BUN 55 H Creatinine 2.8 H Glucose 153 H POC Glucose 112 H Hemoglobin A1c Lactic Acid Calcium 6.8 L Phosphorus 1.30 L Magnesium AST 64 H ALT Ammonia Troponin T Total Protein 4.1 L D Albumin 2.1 L Triglycerides LDL Cholesterol Direct HDL Cholesterol Urine Creatinine Urine Total Protein 07/27/22 07/27/22 07/27/22 08:22 09:30 10:49 WBC RBC Hgb Hct MCHC RDW Plt Count [place] # (Auto) Seg Neutrophils % Seg Neuts % (Manual) Lymphocytes % (Manual) Seg Neutrophils # Seg Neutrophils # Man Lymphocytes # (Manual) ABG pH ABG pO2 ABG HCO3 ABG O2 Saturation ABG Base Excess ABG Hemoglobin Sodium Potassium Chloride Carbon Dioxide BUN Creatinine Glucose POC Glucose 146 H 153 H 163 H Hemoglobin A1c Lactic Acid Calcium Phosphorus Magnesium AST ALT Ammonia Troponin T Total Protein Albumin Triglycerides LDL Cholesterol Direct HDL Cholesterol Urine Creatinine Urine Total Protein 07/27/22 07/27/22 07/27/22 12:13 12:44 17:17 WBC RBC Hgb Hct MCHC RDW Plt Count [place] # (Auto) Seg Neutrophils % Seg Neuts % (Manual) Lymphocytes % (Manual) Seg Neutrophils # Seg Neutrophils # Man Lymphocytes # (Manual) ABG pH ABG pO2 ABG HCO3 ABG O2 Saturation ABG Base Excess ABG Hemoglobin Sodium Potassium Chloride Carbon Dioxide BUN Creatinine Glucose POC Glucose 190 H 287 H Hemoglobin A1c 12.3 H Lactic Acid Calcium Phosphorus Magnesium AST ALT Ammonia Troponin T Total Protein Albumin Triglycerides LDL Cholesterol Direct HDL Cholesterol Urine Creatinine Urine Total Protein 07/28/22 07/28/22 07/28/22 00:22 03:58 04:05 WBC RBC Hgb Hct MCHC RDW Plt Count [place] # (Auto) Seg Neutrophils % Seg Neuts % (Manual) Lymphocytes % (Manual) Seg Neutrophils # Seg Neutrophils # Man Lymphocytes # (Manual) ABG pH ABG pO2 171.2 H ABG HCO3 12.3 L ABG O2 Saturation 99.2 H ABG Base Excess -9.7 L ABG Hemoglobin 10.9 L Sodium 148 H Potassium Chloride 117.0 H Carbon Dioxide 16 L BUN 74 H Creatinine 3.2 H Glucose 471 H POC Glucose 379 H Hemoglobin A1c Lactic Acid Calcium 6.2 L Phosphorus Magnesium AST ALT Ammonia Troponin T Total Protein Albumin Triglycerides LDL Cholesterol Direct HDL Cholesterol Urine Creatinine Urine Total Protein 07/28/22 07/28/22 07/28/22 04:05 05:36 12:50 WBC 13.9 H RBC Hgb 11.2 L Hct MCHC 31 L RDW 15.9 H Plt Count 48 L [place] # (Auto) Seg Neutrophils % Seg Neuts % (Manual) Lymphocytes % (Manual) Seg Neutrophils # Seg Neutrophils # Man Lymphocytes # (Manual) ABG pH ABG pO2 ABG HCO3 ABG O2 Saturation ABG Base Excess ABG Hemoglobin Sodium Potassium Chloride Carbon Dioxide BUN Creatinine Glucose POC Glucose 390 H 399 H Hemoglobin A1c Lactic Acid Calcium Phosphorus Magnesium AST ALT Ammonia Troponin T Total Protein Albumin Triglycerides LDL Cholesterol Direct HDL Cholesterol Urine Creatinine Urine Total Protein 07/28/22 07/28/22 07/28/22 17:27 18:16 23:31 WBC RBC Hgb Hct MCHC RDW Plt Count [place] # (Auto) Seg Neutrophils % Seg Neuts % (Manual) Lymphocytes % (Manual) Seg Neutrophils # Seg Neutrophils # Man Lymphocytes # (Manual) ABG pH ABG pO2 ABG HCO3 ABG O2 Saturation ABG Base Excess ABG Hemoglobin Sodium Potassium Chloride Carbon Dioxide BUN Creatinine Glucose POC Glucose 434 H 331 H Hemoglobin A1c Lactic Acid Calcium Phosphorus 2.00 L D Magnesium AST ALT Ammonia Troponin T Total Protein Albumin Triglycerides LDL Cholesterol Direct HDL Cholesterol Urine Creatinine Urine Total Protein 07/29/22 07/29/22 07/29/22 04:47 05:30 06:10 WBC RBC Hgb Hct MCHC RDW Plt Count [place] # (Auto) Seg Neutrophils % Seg Neuts % (Manual) Lymphocytes % (Manual) Seg Neutrophils # Seg Neutrophils # Man Lymphocytes # (Manual) ABG pH 7.498 H ABG pO2 166.4 H ABG HCO3 16.2 L ABG O2 Saturation 99.1 H ABG Base Excess -5.4 L ABG Hemoglobin 10.7 L Sodium 151 H Potassium 3.5 L D Chloride 120.4 H Carbon Dioxide 17 L BUN 80 H Creatinine 2.8 H Glucose 303 H POC Glucose 261 H Hemoglobin A1c Lactic Acid Calcium 6.9 L Phosphorus Magnesium AST ALT Ammonia Troponin T Total Protein Albumin Triglycerides LDL Cholesterol Direct HDL Cholesterol Urine Creatinine Urine Total Protein 07/29/22 09:18 WBC RBC Hgb Hct MCHC RDW Plt Count [place] # (Auto) Seg Neutrophils % Seg Neuts % (Manual) Lymphocytes % (Manual) Seg Neutrophils # Seg Neutrophils # Man Lymphocytes # (Manual) ABG pH ABG pO2 ABG HCO3 ABG O2 Saturation ABG Base Excess ABG Hemoglobin Sodium Potassium Chloride Carbon Dioxide BUN Creatinine Glucose POC Glucose 287 H Hemoglobin A1c Lactic Acid Calcium Phosphorus Magnesium AST ALT Ammonia Troponin T Total Protein Albumin Triglycerides LDL Cholesterol Direct HDL Cholesterol Urine Creatinine Urine Total Protein
--- NOTE | 2022-07-29 13:28 | Progress Note ---
Assessment and Plan Assessment and plan: Assessment/ Plan This is a 77-year-old male with DM, paroxysmal atrial fibrillation, HTN, CVA (2020) admitted s/p cardiac arrest with acute hypoxic respiratory failure and DKA Neuro: Acute metabolic encephalopathy, hepatic encephalopathy, r/o ALEC and subclinical status epilepticus, h/o CVA (2019) -Sluggish pupils, no cough/gag, periodic spontaneous respiration -Neurology consulted, appreciate recommendations -Initial CT head with no acute abnormality -Repeat CT head without contrast of preferably MRI brain without contrast when clinically stable -EEG completed -Per neurology aim for euglycemia and permissive hypertension for now -Ammonia 64 -MRI brain shows diffuse diffusion abnormality involving cerebral and cerebellum compatible with diffuse hypoxia given the patient's history, interval evolving of left INTERNAL INVESTIGATOR infarct from 02/16/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 Cardiac: S/p cardiac arrest, A. fib RVR, h/o hypertension, paroxysmal atrial fibrillation, hyperlipidemia -Patient suffered cardiac arrest on 07/25 in the ED and then was noted to be in A. fib with RVR -Amiodarone drip -Cardiology consulted, appreciate recommendations -Blood pressure monitoring per protocol -S/p vasopressor support with Levophed and vasopressin -MAP goal greater than 65 -Echocardiogram shows EF 50 to 60%, no pericardial effusion -Lipitor -Digoxin x2 Respiratory: Acute hypoxic respiratory failure -CCM consulted, appreciate recommendations -Intubated on 07/25 with a 8.00 ETT in the ED -A.m. vent settings: Assist-control rate 20, tidal volume 450, PEEP 6, FiO2 40% -See RT notes for titration -A.m. ABG and CXR noted -VAP bundle -SPO2 monitoring GI: Protein calorie malnutrition -NTR consult for tube feeding -24-hour + 468 mL -PPI : Hypernatremia, metabolic acidosis, acute kidney injury likely secondary to vasomotor nephropathy -S/p 4 L LR bolus -Nephrology consulted, appreciate recommendations -Serum creatinine 03/08/2020 was 1.3 -s/p IVF -Monitor intake and output -Renally dose medications -Avoid nephrotoxic medications -FeNa 1.8% -FWF 150ml q 4 hr -Renal ultrasound noted -Trend BMP ID: Sepsis, Klebsiella pneumonia -Hypotension, acute kidney injury, acute respiratory failure, lactic acidosis -Antibiotic therapy with cefepime -Solu-Cortef tapering -f/u blood culture -Monitor WBC and temperature curve Endo: s/p DKA, h/o DM -Presented with anion gap of 21, glucose of 761, VBG 7.362 -s/p Insulin drip -Accu-Cheks q6hr -SSI -Long-acting insulin when able -Hemaglobin A1C 12.3 Heme: Leukocytosis, thrombocytopenia -Trend CBC -Transfuse hemoglobin less than 7 -SCDs to BLE while in bed The high probability of a clinically significant, sudden or life threatening deterioration of the [multi] system(s) required my full and direct attention, intervention and personal management. The aggregate critical care time was [90] minutes. This time is in addition to time spent performing reported procedures but includes the following: [x] Data Review and interpretation [x] Patient assessment and monitoring of vital signs [x] Documentation [x] Medication orders and management Disposition Plan: icu Total Time Spent with Patient (Minutes): 90 History Interval history: This is a 77-year-old male who is shelter patient at [facility] with DM, paroxysmal atrial fibrillation, HTN, CVA (2020) presents the emergency department on 07/26 via EMS with hypoglycemia and unresponsiveness. In the emergency department patient was deciding 7% on room air and was placed on nonrebreather but sats have increased to greater than 81% and the patient was obtunded therefore ED physician decided to intubate the patient. Per documentation after intubation patient went into PEA arrest and ACLS was initiated and ROSC was achieved after approximately 13 minutes. Work-up in the emergency department revealed leukocytosis, hyponatremia 155, elevated BUN/creatinine at 3.5/74, anion gap metabolic acidosis and hyperglycemia 734. Patient was admitted to the hospital service with consults to cardiology, CCM and nephrology on DKA protocol on mechanical ventilation. Hospital course to date: 07/26: Patient is on any sedation, very sluggish pupillary response, no cough/gag noted, no seizure activity. Neurology recs repeat CT head without contrast or MRI brain without contrast when clinically stable. Patient also had a EEG completed today. Patient is currently maxed on Levophed and vasopressin. Given several LR boluses today. Antibiotics broadened and stress dose steroids added. 07/27: Weaning pressors, phosphorus repleted, SSI and long-acting insulin initiated, tube feeding initiated. Patient now has a hypoactive cough/gag. CT head pending. LR bolus. Thrombocytopenia noted. Cardiology would like to start heparin drip due to atrial fibrillation however would like neurology input prior to. 07/28: Patient remains off of vasopressors, patient had MRI today. Worsening renal function noted. Cardiology will hold off amiodarone due to thrombocytopenia. No acute events reported overnight. 07/29: I had an extensive conversation with son and at bedside to with the help of an ip technology transactions attorney through the rn chemical dependency line. Explained thoroughly of presentation to the ED from documentation, cardiac arrest, CT head and MRI brain findings. They are still electing to continue aggressive care and would like h ospital assistance with getting a visa for youngest son to come to the [facility] from [facility]. planning and analysis manager is aware of request. Steroid taper started. CBC pending. Will be repleted. Hypernatremia improving. Hospitalist Physical - Constitutional Vitals: Temp Pulse Resp BP Pulse Ox 98.4 F 107 H 22 140/85 100 07/29/22 12:00 07/29/22 13:00 07/29/22 13:00 07/29/22 13:00 07/29/22 13:00 General appearance: Present: other (Intubated) - EENT Eyes: Absent: PERRL, EOM intact - Neck Neck: Absent: masses or JVD, cervical LAD - Respiratory Respiratory effort: normal Respiratory: bilateral: diminished - Cardiovascular Rhythm: irregularly irregular Heart Sounds: Present: S1 & S2. Absent: systolic murmur, diastolic murmur - Extremities Extremities: pulses intact, pulses symmetrical Extremity abnormal: edema Peripheral Pulses: within normal limits - Abdominal General gastrointestinal: soft, non-tender, normal bowel sounds - Integumentary Integumentary: Present: dry - Psychiatric Psychiatric: no appropriate mood/affect - Neurologic Neurologic: no CNII-XII intact, no moves all extremities - Allied Health Allied health notes reviewed: nursing, RT HEART Score - HEART Score Troponin: Troponin T 0.049 ng/mL (0.00-0.029) H D 07/26/22 15:36 Results - Labs CBC & Chem 7: 07/28/22 04:05 07/29/22 04:47 Labs: Laboratory Last Values WBC 13.9 K/mm3 (4.5-11.0) H 07/28/22 04:05 RBC 3.97 M/mm3 (3.65-5.03) 07/28/22 04:05 Hgb 11.2 gm/dl (11.8-15.2) L 07/28/22 04:05 Hct 36.1 % (35.5-45.6) 07/28/22 04:05 MCV 91 fl (84-94) 07/28/22 04:05 MCH 28 pg (28-32) 07/28/22 04:05 MCHC 31 % (32-34) L 07/28/22 04:05 RDW 15.9 % (13.2-15.2) H 07/28/22 04:05 Plt Count 48 K/mm3 (140-440) L 07/28/22 04:05 Lymph % (Auto) 21.7 % (13.4-35.0) 07/25/22 19:37 [place] % (Auto) 7.3 % (0.0-7.3) 07/25/22 19:37 Eos % (Auto) 0.0 % (0.0-4.3) 07/25/22 19:37 Baso % (Auto) 0.3 % (0.0-1.8) 07/25/22 19:37 Lymph # (Auto) 4.1 K/mm3 (1.2-5.4) 07/25/22 19:37 [place] # (Auto) 1.4 K/mm3 (0.0-0.8) H 07/25/22 19:37 Eos # (Auto) 0.0 K/mm3 (0.0-0.4) 07/25/22 19:37 Baso # (Auto) 0.1 K/mm3 (0.0-0.1) 07/25/22 19:37 Add Manual Diff Complete 07/27/22 03:50 Total Counted 100 07/27/22 03:50 Seg Neutrophils % 70.7 % (40.0-70.0) H 07/25/22 19:37 Seg Neuts % (Manual) 78.0 % (40.0-70.0) H 07/27/22 03:50 Band Neutrophils % 16.0 % 07/27/22 03:50 Lymphocytes % (Manual) 3.0 % (13.4-35.0) L 07/27/22 03:50 Reactive Lymphs % (Man) 0 % 07/27/22 03:50 Monocytes % (Manual) 2.0 % (0.0-7.3) 07/27/22 03:50 Eosinophils % (Manual) 0 % (0.0-4.3) 07/27/22 03:50 Basophils % (Manual) 0 % (0.0-1.8) 07/27/22 03:50 Metamyelocytes % 1.0 % 07/27/22 03:50 Myelocytes % 0 % 07/27/22 03:50 Promyelocytes % 0 % 07/27/22 03:50 Blast Cells % 0 % 07/27/22 03:50 Nucleated RBC % Not Reportable 07/27/22 03:50 Seg Neutrophils # 13.3 K/mm3 (1.8-7.7) H 07/25/22 19:37 Seg Neutrophils # Man 12.0 K/mm3 (1.8-7.7) H 07/27/22 03:50 Band Neutrophils # 2.5 K/mm3 07/27/22 03:50 Lymphocytes # (Manual) 0.5 K/mm3 (1.2-5.4) L 07/27/22 03:50 Abs React Lymphs (Man) 0.0 K/mm3 07/27/22 03:50 Monocytes # (Manual) 0.3 K/mm3 (0.0-0.8) 07/27/22 03:50 Eosinophils # (Manual) 0.0 K/mm3 (0.0-0.4) 07/27/22 03:50 Basophils # (Manual) 0.0 K/mm3 (0.0-0.1) 07/27/22 03:50 Metamyelocytes # 0.2 K/mm3 07/27/22 03:50 Myelocytes # 0.0 K/mm3 07/27/22 03:50 Promyelocytes # 0.0 K/mm3 07/27/22 03:50 Blast Cells # 0.0 K/mm3 07/27/22 03:50 WBC Morphology Not Reportable 07/27/22 03:50 Hypersegmented Neuts Not Reportable 07/27/22 03:50 Hyposegmented Neuts Not Reportable 07/27/22 03:50 Hypogranular Neuts Not Reportable 07/27/22 03:50 Smudge Cells Not Reportable 07/27/22 03:50 Toxic Granulation Not Reportable 07/27/22 03:50 Toxic Vacuolation Not Reportable 07/27/22 03:50 Dohle Bodies Not Reportable 07/27/22 03:50 Pelger-Huet Anomaly Not Reportable 07/27/22 03:50 Jay Rods Not Reportable 07/27/22 03:50 Platelet Estimate Consistent w auto 07/27/22 03:50 Clumped Platelets Not Reportable 07/27/22 03:50 Plt Clumps, EDTA Not Reportable 07/27/22 03:50 Large Platelets Not Reportable 07/27/22 03:50 Giant Platelets Not Reportable 07/27/22 03:50 Platelet Satelliting Not Reportable 07/27/22 03:50 Plt Morphology Comment Not Reportable 07/27/22 03:50 RBC Morphology Not Reportable 07/27/22 03:50 Dimorphic RBCs Not Reportable 07/27/22 03:50 Polychromasia Not Reportable 07/27/22 03:50 Hypochromasia Not Reportable 07/27/22 03:50 Poikilocytosis Not Reportable 07/27/22 03:50 Anisocytosis Not Reportable 07/27/22 03:50 Microcytosis Not Reportable 07/27/22 03:50 Macrocytosis Not Reportable 07/27/22 03:50 Spherocytes Not Reportable 07/27/22 03:50 Pappenheimer Bodies Not Reportable 07/27/22 03:50 Sickle Cells Not Reportable 07/27/22 03:50 Target Cells Not Reportable 07/27/22 03:50 Tear Drop Cells Not Reportable 07/27/22 03:50 Ovalocytes Not Reportable 07/27/22 03:50 Helmet Cells Not Reportable 07/27/22 03:50 [place] Bodies Not Reportable 07/27/22 03:50 [place] Rings Not Reportable 07/27/22 03:50 Leonora Cells Not Reportable 07/27/22 03:50 Bite Cells Not Reportable 07/27/22 03:50 Crenated Cell Not Reportable 07/27/22 03:50 Elliptocytes Not Reportable 07/27/22 03:50 Acanthocytes (Spur) Not Reportable 07/27/22 03:50 Rouleaux Not Reportable 07/27/22 03:50 Hemoglobin C Crystals Not Reportable 07/27/22 03:50 Schistocytes Not Reportable 07/27/22 03:50 Malaria parasites Not Reportable 07/27/22 03:50 [place] Bodies Not Reportable 07/27/22 03:50 Hem Pathologist Commnt No 07/27/22 03:50 ABG pH 7.498 pH Units (7.350-7.450) H 07/29/22 05:30 ABG pCO2 21.4 mm Hg 07/29/22 05:30 ABG pO2 166.4 mm Hg (80.0-90.0) H 07/29/22 05:30 ABG HCO3 16.2 mmol/L (20.0-26.0) L 07/29/22 05:30 ABG O2 Saturation 99.1 % (95.0-99.0) H 07/29/22 05:30 ABG O2 Content 14.9 (0.0-44) 07/29/22 05:30 ABG Base Excess -5.4 mmol/L (-2.0-3.0) L 07/29/22 05:30 ABG Hemoglobin 10.7 gm/dl (14.0-18.0) L 07/29/22 05:30 ABG Carboxyhemoglobin 1.2 % (0.0-5.0) 07/29/22 05:30 ABG Methemoglobin 0.5 % (0.0-1.5) 07/29/22 05:30 VBG pH 7.362 (7.320-7.420) 07/25/22 19:37 Oxyhemoglobin 97.5 % (95.0-99.0) 07/29/22 05:30 FiO2 21 % 07/29/22 05:30 Sodium 151 mmol/L (137-145) H 07/29/22 04:47 Potassium 3.5 mmol/L (3.6-5.0) L D 07/29/22 04:47 Chloride 120.4 mmol/L (98-107) H 07/29/22 04:47 Carbon Dioxide 17 mmol/L (22-30) L 07/29/22 04:47 Anion Gap 17 mmol/L 07/29/22 04:47 BUN 80 mg/dL (9-20) H 07/29/22 04:47 Creatinine 2.8 mg/dL (0.8-1.3) H 07/29/22 04:47 Estimated GFR 22 ml/min 07/29/22 04:47 BUN/Creatinine Ratio 29 % 07/29/22 04:47 Glucose 303 mg/dL (75-100) H 07/29/22 04:47 POC Glucose 287 mg/dL (70-105) H 07/29/22 09:18 Hemoglobin A1c 12.3 % (4-6) H 07/27/22 12:13 Lactic Acid 9.70 mmol/L (0.7-2.0) H* 07/26/22 15:36 Calcium 6.9 mg/dL (8.4-10.2) L 07/29/22 04:47 Phosphorus 2.00 mg/dL (2.5-4.5) L D 07/28/22 17:27 Magnesium 2.30 mg/dL (1.7-2.3) 07/27/22 03:50 Total Bilirubin 0.30 mg/dL (0.1-1.2) 07/27/22 03:50 AST 64 units/L (5-40) H 07/27/22 03:50 ALT 31 units/L (7-56) 07/27/22 03:50 Alkaline Phosphatase 61 units/L (35-129) 07/27/22 03:50 Ammonia 64.0 umol/L (25-60) H 07/25/22 19:37 Total Creatine Kinase 158 units/L (55-170) 07/25/22 19:37 CK-MB (CK-2) < 1.0 ng/mL (0.0-4.0) 07/25/22 19:37 CK-MB (CK-2) Rel Index 0.6 (0-4) 07/25/22 19:37 Troponin T 0.049 ng/mL (0.00-0.029) H D 07/26/22 15:36 Total Protein 4.1 g/dL (6.3-8.2) L D 07/27/22 03:50 Albumin 2.1 g/dL (3.9-5) L 07/27/22 03:50 Albumin/Globulin Ratio 1.1 % 07/27/22 03:50 Triglycerides 362 mg/dL (2-149) H 07/25/22 19:37 Cholesterol 126 mg/dL (50-199) 07/25/22 19:37 LDL Cholesterol Direct 44 mg/dL (50-130) L 07/25/22 19:37 HDL Cholesterol 34 mg/dL (40-59) L 07/25/22 19:37 Cholesterol/HDL Ratio 3.70 % 07/25/22 19:37 TSH 2.170 mlU/mL (0.270-4.200) 07/25/22 19:37 Free T4 1.18 ng/dL (0.76-1.46) 07/25/22 19:37 Urine Color Lin (Yellow) 07/26/22 08:31 Urine Turbidity Cloudy (Clear) 07/26/22 08:31 Specific [place] (Man) 1.010 (1.003-1.030) 07/26/22 08:31 Ur Protein (Man) <30 mg dl mg/dL (Negative) 07/26/22 08:31 Ur Ketones (Man) Negative (Negative) 07/26/22 08:31 Ur Nitrite (Man) Negative (Negative) 07/26/22 08:31 Ur Reducing Substances Not Reportable 07/26/22 08:31 Urine Bilirubin (Man) Negative (Negative) 07/26/22 08:31 Urine Ictotest Not Reportable 07/26/22 08:31 Leukocyte Esterase (Man) Trace (Negative) 07/26/22 08:31 Urine WBC (Auto) < 1.0 /HPF (0.0-6.0) 07/26/22 08:31 Urine RBC (Auto) 1.0 /HPF (0.0-6.0) 07/26/22 08:31 U Epithel Cells (Auto) 3.0 /HPF (0-13.0) 07/26/22 08:31 Urine RBC (Manual) 5-10 (Negative) 07/26/22 08:31 Ur Renal Epithelial Cell 3 /LPF 07/26/22 08:31 Urine Mucus Few /HPF 07/26/22 08:31 Urine Creatinine 118.4 mg/dL (0.1-20.0) H 07/26/22 18:10 Protein/Creatinin Ratio 1.23 07/26/22 18:10 Urine Sodium 108 mmol/L 07/26/22 18:10 Urine Total Protein 146 mg/dL (5-11.8) H 07/26/22 18:10 Microbiology: Microbiology 07/25/22 22:10 Peripheral/Venous Blood Culture - Preliminary NO GROWTH AFTER 72 HOURS 07/25/22 21:08 Peripheral/Venous Blood Culture - Preliminary NO GROWTH AFTER 72 HOURS 07/25/22 21:50 Tracheal Aspirate Sputum Culture - Final Klebsiella Pneumoniae Yañez/IV: Voiding Method Indwelling Catheter Active Medications - Current Medications Current Medications: Generic Name Dose Route Start Last Admin Trade Name Freq PRN Reason Stop Dose Admin Acetaminophen 650 mg 07/26/22 00:31 07/28/22 06:00 Acetaminophen 325 Mg Tab PO 650 mg Q4H PRN Administration Pain MILD(1-3)/Fever >100.5/LANTIGUA Acetaminophen 650 mg 07/26/22 02:04 Acetaminophen 650 Mg Rect Supp IL Q4H PRN Pain, Mild (1-3) Albuterol 2.5 mg 07/26/22 00:31 Albuterol 2.5 Mg/3 Ml Nebu IH Q3HRT PRN Shortness Of Breath Atorvastatin Calcium 40 mg 07/26/22 22:00 07/28/22 21:21 Atorvastatin 40 Mg Tab PO 40 mg QHS LIZZIE Administration Dextrose 50 ml 07/27/22 09:25 Dextrose 50% In Water (25gm) 50 Ml Syringe IV Q30MIN PRN Hypoglycemia Protocol Famotidine 10 mg 07/28/22 10:00 07/29/22 09:46 Famotidine 10 Mg Tab FEEDTUBE 10 mg BID LIZZIE Administration Hydrocortisone Sodium Succinate 50 mg 07/29/22 10:00 07/29/22 09:46 Hydrocortisone Sod Succ 100 Mg/2 Ml Vial IV 50 mg Q12HR LIZZIE Administration NORepinephrine/NS 8 MG-250 ML 8 mg in 250 mls @ 3.75 mls/hr 07/25/22 23:00 07/27/22 19:16 Norepinephrine/Ns 8 Mg-250 Ml (Double Conc) IV 0 mcg/min TITRATE LIZZIE 0 mls/hr Titration Protocol 2 MCG/MIN Amiodarone HCl 900 mg/ 500 mls @ 33.333 mls/hr 07/26/22 04:10 07/28/22 05:53 Dextrose IV 0.5 mg/min DIRECT LIZZIE 16.667 mls/hr Administration Protocol 1 MG/MIN Vasopressin 20 unit/ Sodium 101 mls @ 9.09 mls/hr 07/26/22 05:00 07/27/22 19:16 Chloride IV 0 units/min TITR LIZZIE 0 mls/hr Titration Protocol 0.03 UNITS/MIN Cefepime HCl 2 gm in 100 mls @ 200 mls/hr 07/27/22 11:00 07/29/22 10:33 Cefepime/Ns 2 Gm/100 Ml IV Infused Q24H LIZZIE Infusion Protocol Insulin Glargine 30 units 07/28/22 22:00 07/29/22 09:56 Insulin Glargine 100 Units/Ml SUB-Q 30 units BID LIZZIE Administration Insulin Human Regular 0 units 07/27/22 12:00 07/29/22 12:38 Insulin Regular, Human 100 Units/1 Ml SUB-Q 6 units Q6H LIZZIE Administration Protocol Multi-Ingred Cream/Lotion/Oil/Oint 1 applic 07/27/22 03:17 07/27/22 03:35 Mineral Oil/Petrolatum, White Ophth Oint 3.5 Gm OU 1 applic PRN PRN Administration Dry Eye(s) Nitroglycerin 0.4 mg 07/26/22 00:31 Nitroglycerin 0.4 Mg Tab Subl SL Q5M PRN Chest Pain Ondansetron HCl 4 mg 07/26/22 00:31 Ondansetron 4 Mg/2 Ml Inj IV Q8H PRN Nausea And Vomiting Sodium Chloride 10 ml 07/26/22 10:00 07/29/22 09:46 Sodium Chloride 0.9% 10 Ml Flush Syringe IV 10 ml BID LIZZIE Administration Sodium Chloride 10 ml 07/26/22 00:31 Sodium Chloride 0.9% 10 Ml Flush Syringe IV PRN PRN LINE FLUSH Nutrition/Malnutrition Assess - Dietary Evaluation Nutrition/Malnutrition Findings: Nutrition Notes Start: 07/26/22 10:25 Freq: Status: Active Protocol: Document 07/28/22 16:31 PEACE (Rec: 07/28/22 16:47 PEACE [id number]) Nutrition Notes Initial or Follow up Reassessment Current Diagnosis Acute Kidney Injury,Diabetes, Hypertension,Respiratory Failure,Hyperlipidemia Other Pertinent Diagnosis s/p cardiac arrest, s/p DKA, acute metabolic encephalopathy Current Diet TF - Vital AF 1.2 at 55ml/hr Labs/Tests Na 148 BUN 74 Cr 3.2 BG 471 A1C 12.3 Pertinent Medications Amiodarone gtt, Solu-Cortef Height 5 ft 5 in Weight 49.8 kg [place] Body Weight (kg) 61.81 BMI 18.2 Weight change and time frame Bed scale not working; pt appears to be at least 67 in tall and weigh more than 49. 8kg at this time; generalized edema present Subjective/Other Information Observed Vital AF 1.2 infusing at 35ml/hr. Pt remains on vent support. Percent of energy/protein needs met: 72% energy 105% pro Burn Absent Trauma Absent Minimum of two criteria No Fluid Accumulation Mild (non-severe) #1 Nutrition Diagnosis Inadequate oral intake Diagnosis Progress(for reassessment Continues documentation) Is patient on ventilator? Yes Is Patient Ambulatory and/or Out of Bed No REE-([place]. Jeor-confined to bed) [phone] Calculation [facility] for Recommendations [facility] Additional Notes Pro needs 0.8-1.2g/k-60g/ day Fluid needs per MD. Nutrition Intervention Nutrition Support: Change TF formula to Glucerna 1.2 at 45ml/hr with 150ml water flush q4h until hypernatremia resolved. Kcal 1,296 Protein (gm) 65 Carbohydrates (gm) 124 Fat (gm) 65 Fluid (mL) 869 Fiber (gm) 17 Goal #1 TF tolerance Goal #2 TF to provide at least 75% energy and pro needs Follow-Up By: 07/31/22 Additional Comments F/U: TF formula change/ tolerance, vent status, renal function, wt/ht
[2022-07-29] MEDS: AMIODARONE 900 MG in DEXTROSE 5% IN WATER 482 ML IV SCH (15:00)
--- NOTE | 2022-07-29 15:08 | Event Note ---
Date: 07/29/22 Received call from RN regarding transitioning off IV Amiodarone. No objections to Amiodarone 200mg BID via OGT. Stop IV Amiodarone 1 hr after 1st dose via OGT. May resume IV Amiodarone if any recurrent tachyarrhythmias. [facility] [phone] (Dr Fitzgerald)
[2022-07-29] MEDS: AMIODARONE 200 MG TAB PO SCH ×2 (15:21→21:16)
[2022-07-29 15:37] LABS: Mean Corpuscular HGB Conc 30 % (32-34); Mean Corpuscular Volume 96 fl (84-94); Red Blood Count 4.07 M/mm3 (3.65-5.03); Red Cell Distribution Width 17.6 % (13.2-15.2)
[2022-07-29 15:48] LABS: Hematocrit 39.1 % (35.5-45.6); Hemoglobin 11.8 gm/dl (11.8-15.2)
[2022-07-29 16:38] LABS: Platelet Count 84 K/mm3 (140-440)
[2022-07-29] MEDS ORDERED: LORazepam 2 MG/ML VIAL IV ONE (17:05)
[2022-07-29] MEDS: SODIUM BICARBONATE 650 MG TAB PO SCH (21:16)
[2022-07-30 04:56] LABS: Hematocrit 33.1 % (35.5-45.6); Hemoglobin 11.1 gm/dl (11.8-15.2); Mean Corpuscular HGB Conc 34 % (32-34); Mean Corpuscular Volume 88 fl (84-94); Platelet Count 34 K/mm3 (140-440); Red Blood Count 3.78 M/mm3 (3.65-5.03)
[2022-07-30 05:00] LABS: ABG Base Excess -4.1 mmol/L (-2.0-3.0); ABG HCO3 18.6 mmol/L (20.0-26.0); ABG Methemoglobin 0.4 % (0.0-1.5); ABG Oxygen Saturation 98.5 % (95.0-99.0); ABG PCO2 26.6 mm Hg; ABG PH 7.461 pH Units (7.350-7.450)
[2022-07-30 05:13] LABS: Calcium 6.8 mg/dL (8.4-10.2)
[2022-07-30] MEDS: INSULIN REGULAR, HUMAN 100 UNITS/1 ML SUB-Q SCH ×5 (05:32→23:11)
[2022-07-30] MEDS: SODIUM BICARBONATE 650 MG TAB PO SCH ×3 (07:25→20:20)
[2022-07-30] MEDS ORDERED: POTASSIUM PHOSPHATE 30 MMOL in SODIUM CHLORIDE 0.9% 500 ML 500 ML IV ONE (08:15)
[2022-07-30] MEDS: INSULIN GLARGINE 100 UNITS/ML SUB-Q SCH ×2 (09:38→21:07)
[2022-07-30] MEDS: AMIODARONE 200 MG TAB PO SCH ×2 (09:38→21:07)
[2022-07-30] MEDS: CEFEPIME/NS 2 GM/100 ML 2 GM/100 ML BAG IV SCH (11:00)
--- NOTE | 2022-07-30 11:15 | Progress Note ---
Assessment and Plan 77 y/o male with cardiac arrest, intubated, not sedated with multisystem organ failure 07/30/22: Continue supportive measures. Family wants aggressive measures despite MRI findings so needs consult to surgery for trach and peg. Will drop steroids down to 25q8 or 50q12 Sunday. Continue volume as renal function is improving. needs more free water if possible. 07/29/22: Drop steroids to 50q8 starting today. CBC not checked, need to evaluate Platelets. Need to correct electrolytes as well. Family is likely going to want trach and peg based on earlier conversations but awaiting more family. Given recent MRI results, prognosis is very poor. 07/28/22: Hold on Volume today. Drop steroids down to 50q8 starting tomorrow. Follow up MRI. EEG results still pending. Platelets still dropping but no evidence of bleeding. Continue abx therapy. Continue feeds. Prognosis is still guarded. 07/27/22: more volume again today. Echo showed normal EF. Wean pressors for MAPs >65, follow up EEg results. Hopeful to get head CT today. Platelets dropped today, not on heparin. Could be sepsis related. If head CT negative, may need to evaluate abdomen around peg. Will start trickle feeds today and transition of insulin drip. Prognosis is still guarded. 1. IVF resusciation with LR 2. Insulin drip and continue NPO state 3. Attempt to wean pressors for MAPs greater than 65 4. Monitor urine output 5. Broaden abx therapy given current clinical state 6. Follow up echo report 7. Agree with stress dose steroids 8. No sedation 9. EEG pending Overall prognosis is guarded to poor, especially given current clinical exam CCT 31 minutes. Subjective Date of service: 07/30/22 Principal diagnosis: Hypernatremia, ARF Interval history: no acute events. Mental status is still the same. Objective Vital Signs - 12hr 07/29/22 07/30/22 07/30/22 23:24 00:00 00:17 Temperature 99.1 F Pulse Rate 83 75 Pulse Rate [ 82 From Monitor] Respiratory 23 20 Rate Blood Pressure 112/66 O2 Sat by Pulse 100 100 Oximetry 07/30/22 07/30/22 07/30/22 00:18 01:00 02:00 Temperature Pulse Rate 109 H 76 76 Pulse Rate [ From Monitor] Respiratory 22 20 Rate Blood Pressure 112/66 108/59 110/63 O2 Sat by Pulse 100 99 Oximetry 07/30/22 07/30/22 07/30/22 03:00 03:08 03:54 Temperature 98.1 F Pulse Rate 97 H 82 Pulse Rate [ 81 From Monitor] Respiratory 20 20 Rate Blood Pressure 117/66 O2 Sat by Pulse 100 100 Oximetry 07/30/22 07/30/22 07/30/22 04:00 04:53 05:00 Temperature Pulse Rate 80 79 78 Pulse Rate [ From Monitor] Respiratory 15 25 H Rate Blood Pressure 117/66 131/74 131/74 O2 Sat by Pulse 100 100 Oximetry 07/30/22 07/30/22 07/30/22 06:00 07:00 08:00 Temperature Pulse Rate 84 94 H 89 Pulse Rate [ 108 H From Monitor] Respiratory 21 21 22 Rate Blood Pressure 122/64 130/69 123/72 O2 Sat by Pulse 100 100 100 Oximetry 07/30/22 07/30/22 07/30/22 08:11 09:00 10:00 Temperature 98.9 F Pulse Rate 88 99 H Pulse Rate [ From Monitor] Respiratory 24 21 Rate Blood Pressure 124/75 132/70 O2 Sat by Pulse 100 100 Oximetry CBC and BMP: 07/30/22 04:42 07/30/22 04:42 ABG, PT/INR, D-dimer: ABG ABG pH 7.461 pH Units (7.350-7.450) H 07/30/22 04:25 ABG pCO2 26.6 mm Hg 07/30/22 04:25 ABG pO2 123.0 mm Hg (80.0-90.0) H 07/30/22 04:25 ABG O2 Saturation 98.5 % (95.0-99.0) 07/30/22 04:25 Abnormal lab findings: Abnormal Labs 07/25/22 07/25/22 07/25/22 19:37 19:37 19:37 WBC 18.8 H RBC 6.31 H Hgb 18.8 H Hct 57.3 H MCV MCHC RDW Plt Count Cobb # (Auto) 1.4 H Seg Neutrophils % 70.7 H Seg Neuts % (Manual) Lymphocytes % (Manual) Seg Neutrophils # 13.3 H Seg Neutrophils # Man Lymphocytes # (Manual) ABG pH ABG pO2 ABG HCO3 ABG O2 Saturation ABG Base Excess ABG Hemoglobin Sodium 149 H Potassium Chloride 110.3 H Carbon Dioxide 18 L BUN 73 H Creatinine 3.3 H Glucose 761 H* POC Glucose Hemoglobin A1c Lactic Acid Calcium 10.6 H Phosphorus Magnesium 3.10 H AST 63 H ALT 64 H Ammonia Troponin T 0.072 H Total Protein 9.0 H Albumin Triglycerides 362 H LDL Cholesterol Direct 44 L HDL Cholesterol 34 L Urine Creatinine Urine Total Protein 07/25/22 07/25/22 07/25/22 19:37 21:08 22:10 WBC RBC Hgb Hct MCV MCHC RDW Plt Count [place] # (Auto) Seg Neutrophils % Seg Neuts % (Manual) Lymphocytes % (Manual) Seg Neutrophils # Seg Neutrophils # Man Lymphocytes # (Manual) ABG pH ABG pO2 ABG HCO3 ABG O2 Saturation ABG Base Excess ABG Hemoglobin Sodium 155 H Potassium Chloride 113.1 H Carbon Dioxide 14 L BUN 74 H Creatinine 3.5 H Glucose 734 H* POC Glucose Hemoglobin A1c Lactic Acid 12.70 H* Calcium Phosphorus Magnesium AST ALT Ammonia 64.0 H Troponin T Total Protein Albumin Triglycerides LDL Cholesterol Direct HDL Cholesterol Urine Creatinine Urine Total Protein 07/25/22 07/25/22 07/26/22 22:20 23:29 00:13 WBC RBC Hgb Hct MCV MCHC RDW Plt Count [place] # (Auto) Seg Neutrophils % Seg Neuts % (Manual) Lymphocytes % (Manual) Seg Neutrophils # Seg Neutrophils # Man Lymphocytes # (Manual) ABG pH 7.342 L ABG pO2 318.2 H ABG HCO3 14.4 L ABG O2 Saturation 99.5 H ABG Base Excess -9.4 L ABG Hemoglobin Sodium 157 H Potassium 3.1 L D Chloride 114.0 H Carbon Dioxide 21 L D BUN 72 H Creatinine 3.7 H Glucose 615 H* POC Glucose > 600 H Hemoglobin A1c Lactic Acid Calcium Phosphorus Magnesium AST ALT Ammonia Troponin T Total Protein Albumin Triglycerides LDL Cholesterol Direct HDL Cholesterol Urine Creatinine Urine Total Protein 07/26/22 07/26/22 07/26/22 00:13 00:38 00:39 WBC 21.4 H RBC 5.88 H Hgb 17.2 H Hct 55.0 H MCV MCHC 31 L RDW 16.0 H Plt Count [place] # (Auto) Seg Neutrophils % Seg Neuts % (Manual) 77.0 H Lymphocytes % (Manual) 13.0 L Seg Neutrophils # Seg Neutrophils # Man 16.5 H Lymphocytes # (Manual) ABG pH ABG pO2 ABG HCO3 ABG O2 Saturation ABG Base Excess ABG Hemoglobin Sodium Potassium Chloride Carbon Dioxide BUN Creatinine Glucose POC Glucose 517 H Hemoglobin A1c Lactic Acid 9.10 H* Calcium Phosphorus Magnesium AST ALT Ammonia Troponin T Total Protein Albumin Triglycerides LDL Cholesterol Direct HDL Cholesterol Urine Creatinine Urine Total Protein 07/26/22 07/26/22 07/26/22 00:39 01:32 02:28 WBC RBC Hgb Hct MCV MCHC RDW Plt Count [place] # (Auto) Seg Neutrophils % Seg Neuts % (Manual) Lymphocytes % (Manual) Seg Neutrophils # Seg Neutrophils # Man Lymphocytes # (Manual) ABG pH ABG pO2 ABG HCO3 ABG O2 Saturation ABG Base Excess ABG Hemoglobin Sodium Potassium Chloride Carbon Dioxide BUN Creatinine Glucose POC Glucose 460 H 237 H Hemoglobin A1c Lactic Acid Calcium Phosphorus 1.20 L D Magnesium 4.10 H AST ALT Ammonia Troponin T Total Protein Albumin Triglycerides LDL Cholesterol Direct HDL Cholesterol Urine Creatinine Urine Total Protein 07/26/22 07/26/22 07/26/22 03:03 03:07 04:11 WBC RBC Hgb Hct MCV MCHC RDW Plt Count [place] # (Auto) Seg Neutrophils % Seg Neuts % (Manual) Lymphocytes % (Manual) Seg Neutrophils # Seg Neutrophils # Man Lymphocytes # (Manual) ABG pH ABG pO2 ABG HCO3 ABG O2 Saturation ABG Base Excess ABG Hemoglobin Sodium Potassium Chloride Carbon Dioxide BUN Creatinine Glucose POC Glucose 433 H 370 H 338 H Hemoglobin A1c Lactic Acid Calcium Phosphorus Magnesium AST ALT Ammonia Troponin T Total Protein Albumin Triglycerides LDL Cholesterol Direct HDL Cholesterol Urine Creatinine Urine Total Protein 07/26/22 07/26/22 07/26/22 04:35 04:35 04:40 WBC RBC Hgb Hct MCV MCHC RDW Plt Count [place] # (Auto) Seg Neutrophils % Seg Neuts % (Manual) Lymphocytes % (Manual) Seg Neutrophils # Seg Neutrophils # Man Lymphocytes # (Manual) ABG pH 7.301 L ABG pO2 178.2 H ABG HCO3 11.0 L ABG O2 Saturation 99.1 H ABG Base Excess -13.3 L ABG Hemoglobin Sodium 162 H* Potassium 3.0 L Chloride 124.8 H Carbon Dioxide 18 L BUN 69 H Creatinine 3.9 H Glucose 385 H POC Glucose Hemoglobin A1c Lactic Acid 8.20 H* Calcium 7.8 L Phosphorus Magnesium AST ALT Ammonia Troponin T Total Protein Albumin Triglycerides LDL Cholesterol Direct HDL Cholesterol Urine Creatinine Urine Total Protein 07/26/22 07/26/22 07/26/22 05:01 06:14 06:52 WBC RBC Hgb Hct MCV MCHC RDW Plt Count [place] # (Auto) Seg Neutrophils % Seg Neuts % (Manual) Lymphocytes % (Manual) Seg Neutrophils # Seg Neutrophils # Man Lymphocytes # (Manual) ABG pH ABG pO2 ABG HCO3 ABG O2 Saturation ABG Base Excess ABG Hemoglobin Sodium Potassium Chloride Carbon Dioxide BUN Creatinine Glucose POC Glucose 347 H 300 H 278 H Hemoglobin A1c Lactic Acid Calcium Phosphorus Magnesium AST ALT Ammonia Troponin T Total Protein Albumin Triglycerides LDL Cholesterol Direct HDL Cholesterol Urine Creatinine Urine Total Protein 07/26/22 07/26/22 07/26/22 07:59 08:58 10:04 WBC RBC Hgb Hct MCV MCHC RDW Plt Count [place] # (Auto) Seg Neutrophils % Seg Neuts % (Manual) Lymphocytes % (Manual) Seg Neutrophils # Seg Neutrophils # Man Lymphocytes # (Manual) ABG pH ABG pO2 ABG HCO3 ABG O2 Saturation ABG Base Excess ABG Hemoglobin Sodium Potassium Chloride Carbon Dioxide BUN Creatinine Glucose POC Glucose 269 H 277 H 244 H Hemoglobin A1c Lactic Acid Calcium Phosphorus Magnesium AST ALT Ammonia Troponin T Total Protein Albumin Triglycerides LDL Cholesterol Direct HDL Cholesterol Urine Creatinine Urine Total Protein 07/26/22 07/26/22 07/26/22 11:03 11:53 13:08 WBC RBC Hgb Hct MCV MCHC RDW Plt Count [place] # (Auto) Seg Neutrophils % Seg Neuts % (Manual) Lymphocytes % (Manual) Seg Neutrophils # Seg Neutrophils # Man Lymphocytes # (Manual) ABG pH ABG pO2 ABG HCO3 ABG O2 Saturation ABG Base Excess ABG Hemoglobin Sodium Potassium Chloride Carbon Dioxide BUN Creatinine Glucose POC Glucose 253 H 213 H 194 H Hemoglobin A1c Lactic Acid Calcium Phosphorus Magnesium AST ALT Ammonia Troponin T Total Protein Albumin Triglycerides LDL Cholesterol Direct HDL Cholesterol Urine Creatinine Urine Total Protein 07/26/22 07/26/22 07/26/22 14:24 14:56 14:57 WBC RBC Hgb Hct MCV MCHC RDW Plt Count [place] # (Auto) Seg Neutrophils % Seg Neuts % (Manual) Lymphocytes % (Manual) Seg Neutrophils # Seg Neutrophils # Man Lymphocytes # (Manual) ABG pH ABG pO2 ABG HCO3 ABG O2 Saturation ABG Base Excess ABG Hemoglobin Sodium Potassium Chloride Carbon Dioxide BUN Creatinine Glucose POC Glucose 185 H 236 H 207 H Hemoglobin A1c Lactic Acid Calcium Phosphorus Magnesium AST ALT Ammonia Troponin T Total Protein Albumin Triglycerides LDL Cholesterol Direct HDL Cholesterol Urine Creatinine Urine Total Protein 07/26/22 07/26/22 07/26/22 15:36 15:36 15:36 WBC RBC Hgb Hct MCV MCHC RDW Plt Count [place] # (Auto) Seg Neutrophils % Seg Neuts % (Manual) Lymphocytes % (Manual) Seg Neutrophils # Seg Neutrophils # Man Lymphocytes # (Manual) ABG pH ABG pO2 ABG HCO3 ABG O2 Saturation ABG Base Excess ABG Hemoglobin Sodium 160 H Potassium Chloride 126.2 H Carbon Dioxide 18 L BUN 59 H Creatinine 3.2 H Glucose 227 H POC Glucose Hemoglobin A1c Lactic Acid 9.70 H* Calcium 7.1 L Phosphorus Magnesium AST ALT Ammonia Troponin T 0.049 H D Total Protein Albumin Triglycerides LDL Cholesterol Direct HDL Cholesterol Urine Creatinine Urine Total Protein 07/26/22 07/26/22 07/26/22 15:57 16:32 17:04 WBC RBC Hgb Hct MCV MCHC RDW Plt Count [place] # (Auto) Seg Neutrophils % Seg Neuts % (Manual) Lymphocytes % (Manual) Seg Neutrophils # Seg Neutrophils # Man Lymphocytes # (Manual) ABG pH ABG pO2 ABG HCO3 ABG O2 Saturation ABG Base Excess ABG Hemoglobin Sodium Potassium Chloride Carbon Dioxide BUN Creatinine Glucose POC Glucose 207 H 189 H 219 H Hemoglobin A1c Lactic Acid Calcium Phosphorus Magnesium AST ALT Ammonia Troponin T Total Protein Albumin Triglycerides LDL Cholesterol Direct HDL Cholesterol Urine Creatinine Urine Total Protein 07/26/22 07/26/22 07/26/22 18:00 18:10 18:52 WBC RBC Hgb Hct MCV MCHC RDW Plt Count [place] # (Auto) Seg Neutrophils % Seg Neuts % (Manual) Lymphocytes % (Manual) Seg Neutrophils # Seg Neutrophils # Man Lymphocytes # (Manual) ABG pH ABG pO2 ABG HCO3 ABG O2 Saturation ABG Base Excess ABG Hemoglobin Sodium Potassium Chloride Carbon Dioxide BUN Creatinine Glucose POC Glucose 197 H 194 H Hemoglobin A1c Lactic Acid Calcium Phosphorus Magnesium AST ALT Ammonia Troponin T Total Protein Albumin Triglycerides LDL Cholesterol Direct HDL Cholesterol Urine Creatinine 118.4 H Urine Total Protein 146 H 07/26/22 07/26/22 07/26/22 20:47 21:30 21:51 WBC RBC Hgb Hct MCV MCHC RDW Plt Count [place] # (Auto) Seg Neutrophils % Seg Neuts % (Manual) Lymphocytes % (Manual) Seg Neutrophils # Seg Neutrophils # Man Lymphocytes # (Manual) ABG pH ABG pO2 ABG HCO3 ABG O2 Saturation ABG Base Excess ABG Hemoglobin Sodium 155 H Potassium Chloride 123.5 H Carbon Dioxide 16 L BUN 53 H Creatinine 2.9 H Glucose 185 H POC Glucose 134 H 124 H Hemoglobin A1c Lactic Acid Calcium 7.0 L Phosphorus Magnesium AST ALT Ammonia Troponin T Total Protein Albumin Triglycerides LDL Cholesterol Direct HDL Cholesterol Urine Creatinine Urine Total Protein 07/26/22 07/26/22 07/27/22 22:47 23:52 00:45 WBC RBC Hgb Hct MCV MCHC RDW Plt Count [place] # (Auto) Seg Neutrophils % Seg Neuts % (Manual) Lymphocytes % (Manual) Seg Neutrophils # Seg Neutrophils # Man Lymphocytes # (Manual) ABG pH ABG pO2 ABG HCO3 ABG O2 Saturation ABG Base Excess ABG Hemoglobin Sodium 155 H Potassium Chloride 124.2 H Carbon Dioxide 19 L BUN 53 H Creatinine 2.5 H Glucose 168 H POC Glucose 138 H 150 H Hemoglobin A1c Lactic Acid Calcium 6.7 L Phosphorus Magnesium AST ALT Ammonia Troponin T Total Protein Albumin Triglycerides LDL Cholesterol Direct HDL Cholesterol Urine Creatinine Urine Total Protein 07/27/22 07/27/22 07/27/22 00:58 02:45 03:50 WBC 15.4 H RBC Hgb Hct MCV MCHC RDW 15.3 H Plt Count 60 L [place] # (Auto) Seg Neutrophils % Seg Neuts % (Manual) 78.0 H Lymphocytes % (Manual) 3.0 L Seg Neutrophils # Seg Neutrophils # Man 12.0 H Lymphocytes # (Manual) 0.5 L ABG pH ABG pO2 ABG HCO3 ABG O2 Saturation ABG Base Excess ABG Hemoglobin Sodium Potassium Chloride Carbon Dioxide BUN Creatinine Glucose POC Glucose 153 H 150 H Hemoglobin A1c Lactic Acid Calcium Phosphorus Magnesium AST ALT Ammonia Troponin T Total Protein Albumin Triglycerides LDL Cholesterol Direct HDL Cholesterol Urine Creatinine Urine Total Protein 07/27/22 07/27/22 07/27/22 03:50 03:55 04:57 WBC RBC Hgb Hct MCV MCHC RDW Plt Count [place] # (Auto) Seg Neutrophils % Seg Neuts % (Manual) Lymphocytes % (Manual) Seg Neutrophils # Seg Neutrophils # Man Lymphocytes # (Manual) ABG pH ABG pO2 110.1 H ABG HCO3 13.3 L ABG O2 Saturation ABG Base Excess -9.0 L ABG Hemoglobin 13.1 L Sodium 154 H Potassium Chloride 123.0 H Carbon Dioxide 19 L BUN 55 H Creatinine 2.8 H Glucose 153 H POC Glucose 112 H Hemoglobin A1c Lactic Acid Calcium 6.8 L Phosphorus 1.30 L Magnesium AST 64 H ALT Ammonia Troponin T Total Protein 4.1 L D Albumin 2.1 L Triglycerides LDL Cholesterol Direct HDL Cholesterol Urine Creatinine Urine Total Protein 07/27/22 07/27/22 07/27/22 08:22 09:30 10:49 WBC RBC Hgb Hct MCV MCHC RDW Plt Count [place] # (Auto) Seg Neutrophils % Seg Neuts % (Manual) Lymphocytes % (Manual) Seg Neutrophils # Seg Neutrophils # Man Lymphocytes # (Manual) ABG pH ABG pO2 ABG HCO3 ABG O2 Saturation ABG Base Excess ABG Hemoglobin Sodium Potassium Chloride Carbon Dioxide BUN Creatinine Glucose POC Glucose 146 H 153 H 163 H Hemoglobin A1c Lactic Acid Calcium Phosphorus Magnesium AST ALT Ammonia Troponin T Total Protein Albumin Triglycerides LDL Cholesterol Direct HDL Cholesterol Urine Creatinine Urine Total Protein 07/27/22 07/27/22 07/27/22 12:13 12:44 17:17 WBC RBC Hgb Hct MCV MCHC RDW Plt Count [place] # (Auto) Seg Neutrophils % Seg Neuts % (Manual) Lymphocytes % (Manual) Seg Neutrophils # Seg Neutrophils # Man Lymphocytes # (Manual) ABG pH ABG pO2 ABG HCO3 ABG O2 Saturation ABG Base Excess ABG Hemoglobin Sodium Potassium Chloride Carbon Dioxide BUN Creatinine Glucose POC Glucose 190 H 287 H Hemoglobin A1c 12.3 H Lactic Acid Calcium Phosphorus Magnesium AST ALT Ammonia Troponin T Total Protein Albumin Triglycerides LDL Cholesterol Direct HDL Cholesterol Urine Creatinine Urine Total Protein 07/28/22 07/28/22 07/28/22 00:22 03:58 04:05 WBC RBC Hgb Hct MCV MCHC RDW Plt Count [place] # (Auto) Seg Neutrophils % Seg Neuts % (Manual) Lymphocytes % (Manual) Seg Neutrophils # Seg Neutrophils # Man Lymphocytes # (Manual) ABG pH ABG pO2 171.2 H ABG HCO3 12.3 L ABG O2 Saturation 99.2 H ABG Base Excess -9.7 L ABG Hemoglobin 10.9 L Sodium 148 H Potassium Chloride 117.0 H Carbon Dioxide 16 L BUN 74 H Creatinine 3.2 H Glucose 471 H POC Glucose 379 H Hemoglobin A1c Lactic Acid Calcium 6.2 L Phosphorus Magnesium AST ALT Ammonia Troponin T Total Protein Albumin Triglycerides LDL Cholesterol Direct HDL Cholesterol Urine Creatinine Urine Total Protein 07/28/22 07/28/22 07/28/22 04:05 05:36 12:50 WBC 13.9 H RBC Hgb 11.2 L Hct MCV MCHC 31 L RDW 15.9 H Plt Count 48 L [place] # (Auto) Seg Neutrophils % Seg Neuts % (Manual) Lymphocytes % (Manual) Seg Neutrophils # Seg Neutrophils # Man Lymphocytes # (Manual) ABG pH ABG pO2 ABG HCO3 ABG O2 Saturation ABG Base Excess ABG Hemoglobin Sodium Potassium Chloride Carbon Dioxide BUN Creatinine Glucose POC Glucose 390 H 399 H Hemoglobin A1c Lactic Acid Calcium Phosphorus Magnesium AST ALT Ammonia Troponin T Total Protein Albumin Triglycerides LDL Cholesterol Direct HDL Cholesterol Urine Creatinine Urine Total Protein 07/28/22 07/28/22 07/28/22 17:27 18:16 23:31 WBC RBC Hgb Hct MCV MCHC RDW Plt Count [place] # (Auto) Seg Neutrophils % Seg Neuts % (Manual) Lymphocytes % (Manual) Seg Neutrophils # Seg Neutrophils # Man Lymphocytes # (Manual) ABG pH ABG pO2 ABG HCO3 ABG O2 Saturation ABG Base Excess ABG Hemoglobin Sodium Potassium Chloride Carbon Dioxide BUN Creatinine Glucose POC Glucose 434 H 331 H Hemoglobin A1c Lactic Acid Calcium Phosphorus 2.00 L D Magnesium AST ALT Ammonia Troponin T Total Protein Albumin Triglycerides LDL Cholesterol Direct HDL Cholesterol Urine Creatinine Urine Total Protein 07/29/22 07/29/22 07/29/22 04:47 05:30 06:10 WBC RBC Hgb Hct MCV MCHC RDW Plt Count [place] # (Auto) Seg Neutrophils % Seg Neuts % (Manual) Lymphocytes % (Manual) Seg Neutrophils # Seg Neutrophils # Man Lymphocytes # (Manual) ABG pH 7.498 H ABG pO2 166.4 H ABG HCO3 16.2 L ABG O2 Saturation 99.1 H ABG Base Excess -5.4 L ABG Hemoglobin 10.7 L Sodium 151 H Potassium 3.5 L D Chloride 120.4 H Carbon Dioxide 17 L BUN 80 H Creatinine 2.8 H Glucose 303 H POC Glucose 261 H Hemoglobin A1c Lactic Acid Calcium 6.9 L Phosphorus Magnesium AST ALT Ammonia Troponin T Total Protein Albumin Triglycerides LDL Cholesterol Direct HDL Cholesterol Urine Creatinine Urine Total Protein 07/29/22 07/29/22 07/29/22 09:18 12:31 13:40 WBC 16.0 H RBC Hgb Hct MCV 96 H MCHC 30 L RDW 17.6 H Plt Count 84 L [place] # (Auto) Seg Neutrophils % Seg Neuts % (Manual) Lymphocytes % (Manual) Seg Neutrophils # Seg Neutrophils # Man Lymphocytes # (Manual) ABG pH ABG pO2 ABG HCO3 ABG O2 Saturation ABG Base Excess ABG Hemoglobin Sodium Potassium Chloride Carbon Dioxide BUN Creatinine Glucose POC Glucose 287 H 291 H Hemoglobin A1c Lactic Acid Calcium Phosphorus Magnesium AST ALT Ammonia Troponin T Total Protein Albumin Triglycerides LDL Cholesterol Direct HDL Cholesterol Urine Creatinine Urine Total Protein 07/29/22 07/29/22 07/30/22 17:19 23:57 04:25 WBC RBC Hgb Hct MCV MCHC RDW Plt Count [place] # (Auto) Seg Neutrophils % Seg Neuts % (Manual) Lymphocytes % (Manual) Seg Neutrophils # Seg Neutrophils # Man Lymphocytes # (Manual) ABG pH 7.461 H ABG pO2 123.0 H ABG HCO3 18.6 L ABG O2 Saturation ABG Base Excess -4.1 L ABG Hemoglobin 10.8 L Sodium Potassium Chloride Carbon Dioxide BUN Creatinine Glucose POC Glucose 272 H 205 H Hemoglobin A1c Lactic Acid Calcium Phosphorus Magnesium AST ALT Ammonia Troponin T Total Protein Albumin Triglycerides LDL Cholesterol Direct HDL Cholesterol Urine Creatinine Urine Total Protein 07/30/22 07/30/22 07/30/22 04:42 04:42 05:17 WBC RBC Hgb 11.1 L Hct 33.1 L D MCV MCHC RDW 16.0 H Plt Count 34 L [place] # (Auto) Seg Neutrophils % Seg Neuts % (Manual) Lymphocytes % (Manual) Seg Neutrophils # Seg Neutrophils # Man Lymphocytes # (Manual) ABG pH ABG pO2 ABG HCO3 ABG O2 Saturation ABG Base Excess ABG Hemoglobin Sodium 148 H Potassium 3.2 L Chloride 116.7 H Carbon Dioxide 18 L BUN 69 H Creatinine 2.0 H Glucose 197 H POC Glucose 185 H Hemoglobin A1c Lactic Acid Calcium 6.8 L Phosphorus 1.70 L Magnesium AST ALT Ammonia Troponin T Total Protein Albumin Triglycerides LDL Cholesterol Direct HDL Cholesterol Urine Creatinine Urine Total Protein
--- NOTE | 2022-07-30 12:51 | Progress Note ---
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 Serum creatinine slightly down, non-oliguric Renal ultrasound reviewed. No hydronephrosis. Urine lytes reviewed. Has proteinuria likely from uncontrolled DM Sodium level 148, continue free water 250 mls q4H via TFs Start bicarb tabs for acidosis S/P IVF DKA-S/P insulin drip. On SQ inuslin. Hypotension-S/P Norepi drip Monitor I/O's daily Avoid nephrotoxic agents Continue to monitor renal function closely No acute indication for [employer] Subjective Date of service: 07/30/22 Principal diagnosis: Hypernatremia, ARF Interval history: Making urine. Intubated. On TFs. In ICU. Objective - Exam Narrative Exam: - General Appearance General appearance: intubated, other (Intubated and sedated) Respiratory: Decreased Breath Sounds, Other (Intubated) Heart: S1S2 Gastrointestinal: Present: hypoactive bowel sounds Integumentary: warm and dry Neurologic: other (Sedated) Musculoskeletal: Present: other (mild edema) - Vital Signs Vital signs: Vital Signs - 12hr 07/30/22 07/30/22 07/30/22 01:00 02:00 03:00 Temperature Pulse Rate 76 76 97 H Pulse Rate [ From Monitor] Respiratory 22 20 20 Rate Blood Pressure 108/59 110/63 117/66 O2 Sat by Pulse 99 100 Oximetry 07/30/22 07/30/22 07/30/22 03:08 03:54 04:00 Temperature 98.1 F Pulse Rate 82 80 Pulse Rate [ 81 From Monitor] Respiratory 20 15 Rate Blood Pressure 117/66 O2 Sat by Pulse 100 100 Oximetry 07/30/22 07/30/22 07/30/22 04:53 05:00 06:00 Temperature Pulse Rate 79 78 84 Pulse Rate [ From Monitor] Respiratory 25 H 21 Rate Blood Pressure 131/74 131/74 122/64 O2 Sat by Pulse 100 100 Oximetry 07/30/22 07/30/22 07/30/22 07:00 08:00 08:11 Temperature 98.9 F Pulse Rate 94 H 89 Pulse Rate [ 108 H From Monitor] Respiratory 21 22 Rate Blood Pressure 130/69 123/72 O2 Sat by Pulse 100 100 Oximetry 07/30/22 07/30/22 07/30/22 09:00 10:00 11:00 Temperature Pulse Rate 88 99 H 103 H Pulse Rate [ From Monitor] Respiratory 24 21 25 H Rate Blood Pressure 124/75 132/70 143/81 O2 Sat by Pulse 100 100 100 Oximetry 07/30/22 07/30/22 11:35 12:00 Temperature 98.7 F Pulse Rate 97 H 98 H Pulse Rate [ 112 H From Monitor] Respiratory 24 Rate Blood Pressure 143/81 149/83 O2 Sat by Pulse 100 100 Oximetry - Lab 07/30/22 04:42 07/30/22 04:42 Most recent lab results ABG pH 7.461 pH Units (7.350-7.450) H 07/30/22 04:25 ABG pCO2 26.6 mm Hg 07/30/22 04:25 ABG pO2 123.0 mm Hg (80.0-90.0) H 07/30/22 04:25 ABG HCO3 18.6 mmol/L (20.0-26.0) L 07/30/22 04:25 ABG O2 Saturation 98.5 % (95.0-99.0) 07/30/22 04:25 Calcium 6.8 mg/dL (8.4-10.2) L 07/30/22 04:42 Phosphorus 1.70 mg/dL (2.5-4.5) L 07/30/22 04:42 Magnesium 2.00 mg/dL (1.7-2.3) 07/30/22 04:42 Urine Creatinine 118.4 mg/dL (0.1-20.0) H 07/26/22 18:10 Urine Sodium 108 mmol/L 07/26/22 18:10 Urine Total Protein 146 mg/dL (5-11.8) H 07/26/22 18:10 Medications & Allergies - Medications Allergies/Adverse Reactions: Allergies aspirin Allergy (Verified 02/15/20 13:24) Swelling iron Allergy (Verified 02/15/20 13:24) Itching Home Medications: Home Medications Medication Instructions Recorded Confirmed Last Taken Type metFORMIN [Glucophage] 1,000 mg PO BID 02/11/14 02/15/20 02/14/20 History Acetaminophen [Acetaminophen ER 650 mg PO Q8HR PRN #20 tablet.er 10/21/19 02/15/20 Unknown Rx TAB] ALBUTEROL NEB's [Proventil 0.083% 2.5 mg IH Q3HRT PRN #30 nebu 03/09/20 Unknown Rx NEBS] Aspirin EC [Halfprin EC] 81 mg PO QDAY #30 tablet. 03/09/20 Unknown Rx AtorvaSTATin [Lipitor] 40 mg FEEDTUBE QHS #30 tablet 03/09/20 Unknown Rx Famotidine [Pepcid] 20 mg FEEDTUBE DAILY #30 tablet 03/09/20 Unknown Rx Insulin Glargine [Lantus VIAL] 50 units SUB-Q QAMDIAB #1 vial 03/09/20 Unknown Rx Insulin Glargine [Lantus VIAL] 50 units SUB-Q QHS #1 vial 03/09/20 Unknown Rx Insulin Regular, Human [HumuLIN R] 0 units SUB-Q Q6HR #1 vial 03/09/20 Unknown Rx Metoclopramide [Reglan ORAL LIQ] 5 mg FEEDTUBE Q6H PRN 30 Days 03/09/20 Unknown Rx Metoprolol [Lopressor TAB] 100 mg FEEDTUBE BID #60 tablet 03/09/20 Unknown Rx amLODIPine 10 mg FEEDTUBE QDAY #30 tablet 03/09/20 Unknown Rx traMADoL [Ultram 50 MG tab] 50 mg FEEDTUBE Q6HR PRN #10 tablet 03/09/20 Unknown Rx Active Medications: Generic Name Dose Route Start Last Admin Trade Name Freq PRN Reason Stop Dose Admin Acetaminophen 650 mg 07/26/22 00:31 07/28/22 06:00 Acetaminophen 325 Mg Tab PO 650 mg Q4H PRN Administration Pain MILD(1-3)/Fever >100.5/LANTIGUA Acetaminophen 650 mg 07/26/22 02:04 Acetaminophen 650 Mg Rect Supp UT Q4H PRN Pain, Mild (1-3) Albuterol 2.5 mg 07/26/22 00:31 Albuterol 2.5 Mg/3 Ml Nebu IH Q3HRT PRN Shortness Of Breath Amiodarone HCl 200 mg 07/29/22 15:00 07/30/22 09:38 Amiodarone 200 Mg Tab PO 200 mg BID LIZZIE Administration Atorvastatin Calcium 40 mg 07/26/22 22:00 07/29/22 21:16 Atorvastatin 40 Mg Tab PO 40 mg QHS LIZZIE Administration Dextrose 50 ml 07/27/22 09:25 Dextrose 50% In Water (25gm) 50 Ml Syringe IV Q30MIN PRN Hypoglycemia Protocol Famotidine 10 mg 07/28/22 10:00 07/29/22 21:17 Famotidine 10 Mg Tab FEEDTUBE 10 mg BID LIZZIE Administration Hydrocortisone Sodium Succinate 100 mg 07/30/22 14:00 Hydrocortisone Sod Succ 100 Mg/2 Ml Vial IV Q8HR LIZZIE NORepinephrine/NS 8 MG-250 ML 8 mg in 250 mls @ 3.75 mls/hr 07/25/22 23:00 07/27/22 19:16 Norepinephrine/Ns 8 Mg-250 Ml (Double Conc) IV 0 mcg/min TITRATE LIZZIE 0 mls/hr Titration Protocol 2 MCG/MIN Vasopressin 20 unit/ Sodium 101 mls @ 9.09 mls/hr 07/26/22 05:00 07/27/22 19:16 Chloride IV 0 units/min TITR LIZZIE 0 mls/hr Titration Protocol 0.03 UNITS/MIN Cefepime HCl 2 gm in 100 mls @ 200 mls/hr 07/27/22 11:00 07/29/22 10:33 Cefepime/Ns 2 Gm/100 Ml IV Infused Q24H LIZZIE Infusion Protocol Potassium Phosphate 30 mmol/ 510 mls @ 85 mls/hr 07/30/22 08:15 07/30/22 08:37 Sodium Chloride IV 07/30/22 14:14 85 mls/hr ONCE ONE Administration Insulin Glargine 30 units 07/28/22 22:00 07/30/22 09:38 Insulin Glargine 100 Units/Ml SUB-Q 30 units BID LIZZIE Administration Insulin Human Regular 0 units 07/27/22 12:00 07/30/22 05:32 Insulin Regular, Human 100 Units/1 Ml SUB-Q 3 units Q6H LIZZIE Administration Protocol Multi-Ingred Cream/Lotion/Oil/Oint 1 applic 07/27/22 03:17 07/27/22 03:35 Mineral Oil/Petrolatum, White Ophth Oint 3.5 Gm OU 1 applic PRN PRN Administration Dry Eye(s) Nitroglycerin 0.4 mg 07/26/22 00:31 Nitroglycerin 0.4 Mg Tab Subl SL Q5M PRN Chest Pain Ondansetron HCl 4 mg 07/26/22 00:31 Ondansetron 4 Mg/2 Ml Inj IV Q8H PRN Nausea And Vomiting Sodium Bicarbonate 650 mg 07/29/22 20:00 07/30/22 07:25 Sodium Bicarbonate 650 Mg Tab PO 650 mg TID LIZZIE Administration Sodium Chloride 10 ml 07/26/22 10:00 07/30/22 09:38 Sodium Chloride 0.9% 10 Ml Flush Syringe IV 10 ml BID LIZZIE Administration Sodium Chloride 10 ml 07/26/22 00:31 Sodium Chloride 0.9% 10 Ml Flush Syringe IV PRN PRN LINE FLUSH
[2022-07-30] MEDS ORDERED: LACTATED RINGERS 1,000 ML IV ONE (14:23)
--- NOTE | 2022-07-30 14:27 | Progress Note ---
<MISTYSHANE CamaraSweta - Last Filed: 07/30/22 14:34> Assessment and Plan Assessment and plan: Assessment/ Plan This is a 77-year-old male with DM, paroxysmal atrial fibrillation, HTN, CVA (2020) admitted s/p cardiac arrest with acute hypoxic respiratory failure and DKA Neuro: Acute metabolic encephalopathy, hepatic encephalopathy, r/o ALEC and subclinical status epilepticus, h/o CVA (2019) -Sluggish pupils, no cough/gag, periodic spontaneous respiration -Neurology consulted, appreciate recommendations -Initial CT head with no acute abnormality -Repeat CT head without contrast of preferably MRI brain without contrast when clinically stable -EEG completed -Per neurology aim for euglycemia and permissive hypertension for now -Ammonia 64 -MRI brain shows diffuse diffusion abnormality involving cerebral and cerebellum compatible with diffuse hypoxia given the patient's history, interval evolving of left [employer] infarct from 02/16/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 Cardiac: S/p cardiac arrest, A. fib RVR, h/o hypertension, paroxysmal atrial fibrillation, hyperlipidemia -Patient suffered cardiac arrest on 07/25 in the ED and then was noted to be in A. fib with RVR -Amiodarone PO -Cardiology consulted, appreciate recommendations -Blood pressure monitoring per protocol -S/p vasopressor support with Levophed and vasopressin -MAP goal greater than 65 -Echocardiogram shows EF 50 to 60%, no pericardial effusion -Lipitor Respiratory: Acute hypoxic respiratory failure -CCM consulted, appreciate recommendations -Intubated on 07/25 with a 8.00 ETT in the ED -A.m. vent settings: Assist-control rate 20, tidal volume 450, PEEP 6, FiO2 30% -See RT notes for titration -A.m. ABG and CXR noted -VAP bundle -SPO2 monitoring GI: Protein calorie malnutrition -NTR consult for tube feeding -24-hour + 382 mL -PPI : Hypernatremia, metabolic acidosis, acute kidney injury likely secondary to vasomotor nephropathy, hypokalemia, hypophosphatemia -S/p 4 L LR bolus -give LR today -Nephrology consulted, appreciate recommendations -Serum creatinine 03/08/2020 was 1.3 -Monitor intake and output -Renally dose medications -Avoid nephrotoxic medications -FeNa 1.8% -FWF 150ml q 4 hr -Renal ultrasound noted -KPhos IV -Trend BMP ID: Sepsis, Klebsiella pneumonia -Hypotension, acute kidney injury, acute respiratory failure, lactic acidosis -Antibiotic therapy with cefepime -Solu-Cortef tapering -f/u blood culture -Monitor WBC and temperature curve Endo: s/p DKA, h/o DM -Presented with anion gap of 21, glucose of 761, VBG 7.362 -s/p Insulin drip -Accu-Cheks q6hr -SSI -Long-acting insulin when able -Hemaglobin A1C 12.3 Heme: Leukocytosis (resolved), thrombocytopenia -Trend CBC -Transfuse hemoglobin less than 7 -SCDs to BLE while in bed The high probability of a clinically significant, sudden or life threatening deterioration of the [multi] system(s) required my full and direct attention, intervention and personal management. The aggregate critical care time was [60] minutes. This time is in addition to time spent performing reported procedures but includes the following: [x] Data Review and interpretation [x] Patient assessment and monitoring of vital signs [x] Documentation [x] Medication orders and management Disposition Plan: icu Total Time Spent with Patient (Minutes): 60 History Interval history: This is a 77-year-old male who is [facility] patient at [facility] with DM, paroxysmal atrial fibrillation, HTN, CVA (2020) presents the emergency d epartment on 07/26 via EMS with hypoglycemia and unresponsiveness. In the emergency department patient was deciding 7% on room air and was placed on nonrebreather but sats have increased to greater than 81% and the patient was obtunded therefore ED physician decided to intubate the patient. Per docu mentation after intubation patient went into PEA arrest and ACLS was initiated and ROSC was achieved after approximately 13 minutes. Work-up in the emergency department revealed leukocytosis, hyponatremia 155, elevated BUN/creatinine at 3.5/74, anion gap metabolic acidosis and hyperglycemia 734. Patient was admitted to the hospital service with consults to cardiology, CCM and nephrology on DKA protocol on mechanical ventilation. Hospital course to date: 07/26: Patient is on any sedation, very sluggish pupillary response, no cough/gag noted, no seizure activity. Neurology recs repeat CT head without contrast or MRI brain without contrast when clinically stable. Patient also had a EEG completed today. Patient is currently maxed on Levophed and vasopressin. Given several LR boluses today. Antibiotics broadened and stress dose steroids added. 07/27: Weaning pressors, phosphorus repleted, SSI and long-acting insulin initiated, tube feeding initiated. Patient now has a hypoactive cough/gag. CT head pending. LR bolus. Thrombocytopenia noted. Cardiology would like to start heparin drip due to atrial fibrillation however would like neurology input prior to. 07/28: Patient remains off of vasopressors, patient had MRI today. Worsening renal function noted. Cardiology will hold off amiodarone due to thrombocytopenia. No acute events reported overnight. 07/29: I had an extensive conversation with son and at bedside to with the help of an photographic reproduction technician through the contact center director line. Explained thoroughly of presentation to the ED from documentation, cardiac arrest, CT head and MRI brain findings. They are still electing to continue aggressive care and would like hospital assistance with getting a visa for youngest son to come to the [facility] from [facility]. transaction advisory services manager is aware of request. Steroid taper started. CBC pending. Will be repleted. Hypernatremia improving. 07/30: LR bolus, renal function is improved, thrombocytopenia worse. Likely consult surgery for trach/peg as per family requests to continue care. No acute events overnight. Hospitalist Physical - Constitutional Vitals: Temp Pulse Resp BP Pulse Ox 98.7 F 112 H 25 H 149/83 100 07/30/22 12:00 07/30/22 12:00 07/30/22 12:00 07/30/22 12:07/30/22 12:00 General appearance: Present: other (Intubated) - EENT Eyes: Absent: PERRL, EOM intact ENT: poor dentition - Neck Neck: Absent: masses or JVD, cervical LAD - Respiratory Respiratory: bilateral: diminished - Cardiovascular Rhythm: regular Heart Sounds: Present: S1 & S2. Absent: systolic murmur, diastolic murmur - Extremities Extremities: pulses intact, pulses symmetrical Extremity abnormal: edema, other (bilsters to arms/hands/leg) Peripheral Pulses: within normal limits - Abdominal General gastrointestinal: soft, non-tender, non-distended, normal bowel sounds - Integumentary Integumentary: Present: warm, dry - Psychiatric Psychiatric: other - Neurologic Neurologic: other (weak cough/gag, pupils not reactive) - Allied Health Allied health notes reviewed: nursing, RT HEART Score - HEART Score Troponin: Troponin T 0.049 ng/mL (0.00-0.029) H D 07/26/22 15:36 Results - Labs CBC & Chem 7: 07/30/22 04:42 07/30/22 04:42 Labs: Laboratory Last Values WBC 8.3 K/mm3 (4.5-11.0) 07/30/22 04:42 RBC 3.78 M/mm3 (3.65-5.03) 07/30/22 04:42 Hgb 11.1 gm/dl (11.8-15.2) L 07/30/22 04:42 Hct 33.1 % (35.5-45.6) L D 07/30/22 04:42 MCV 88 fl (84-94) 07/30/22 04:42 MCH 29 pg (28-32) 07/30/22 04:42 MCHC 34 % (32-34) 07/30/22 04:42 RDW 16.0 % (13.2-15.2) H 07/30/22 04:42 Plt Count 34 K/mm3 (140-440) L 07/30/22 04:42 Lymph % (Auto) 21.7 % (13.4-35.0) 07/25/22 19:37 [place] % (Auto) 7.3 % (0.0-7.3) 07/25/22 19:37 Eos % (Auto) 0.0 % (0.0-4.3) 07/25/22 19:37 Baso % (Auto) 0.3 % (0.0-1.8) 07/25/22 19:37 Lymph # (Auto) 4.1 K/mm3 (1.2-5.4) 07/25/22 19:37 [place] # (Auto) 1.4 K/mm3 (0.0-0.8) H 07/25/22 19:37 Eos # (Auto) 0.0 K/mm3 (0.0-0.4) 07/25/22 19:37 Baso # (Auto) 0.1 K/mm3 (0.0-0.1) 07/25/22 19:37 Add Manual Diff Complete 07/27/22 03:50 Total Counted 100 07/27/22 03:50 Seg Neutrophils % 70.7 % (40.0-70.0) H 07/25/22 19:37 Seg Neuts % (Manual) 78.0 % (40.0-70.0) H 07/27/22 03:50 Band Neutrophils % 16.0 % 07/27/22 03:50 Lymphocytes % (Manual) 3.0 % (13.4-35.0) L 07/27/22 03:50 Reactive Lymphs % (Man) 0 % 07/27/22 03:50 Monocytes % (Manual) 2.0 % (0.0-7.3) 07/27/22 03:50 Eosinophils % (Manual) 0 % (0.0-4.3) 07/27/22 03:50 Basophils % (Manual) 0 % (0.0-1.8) 07/27/22 03:50 Metamyelocytes % 1.0 % 07/27/22 03:50 Myelocytes % 0 % 07/27/22 03:50 Promyelocytes % 0 % 07/27/22 03:50 Blast Cells % 0 % 07/27/22 03:50 Nucleated RBC % Not Reportable 07/27/22 03:50 Seg Neutrophils # 13.3 K/mm3 (1.8-7.7) H 07/25/22 19:37 Seg Neutrophils # Man 12.0 K/mm3 (1.8-7.7) H 07/27/22 03:50 Band Neutrophils # 2.5 K/mm3 07/27/22 03:50 Lymphocytes # (Manual) 0.5 K/mm3 (1.2-5.4) L 07/27/22 03:50 Abs React Lymphs (Man) 0.0 K/mm3 07/27/22 03:50 Monocytes # (Manual) 0.3 K/mm3 (0.0-0.8) 07/27/22 03:50 Eosinophils # (Manual) 0.0 K/mm3 (0.0-0.4) 07/27/22 03:50 Basophils # (Manual) 0.0 K/mm3 (0.0-0.1) 07/27/22 03:50 Metamyelocytes # 0.2 K/mm3 07/27/22 03:50 Myelocytes # 0.0 K/mm3 07/27/22 03:50 Promyelocytes # 0.0 K/mm3 07/27/22 03:50 Blast Cells # 0.0 K/mm3 07/27/22 03:50 WBC Morphology Not Reportable 07/27/22 03:50 Hypersegmented Neuts Not Reportable 07/27/22 03:50 Hyposegmented Neuts Not Reportable 07/27/22 03:50 Hypogranular Neuts Not Reportable 07/27/22 03:50 Smudge Cells Not Reportable 07/27/22 03:50 Toxic Granulation Not Reportable 07/27/22 03:50 Toxic Vacuolation Not Reportable 07/27/22 03:50 Dohle Bodies Not Reportable 07/27/22 03:50 Pelger-Huet Anomaly Not Reportable 07/27/22 03:50 Jay Rods Not Reportable 07/27/22 03:50 Platelet Estimate Consistent w auto 07/27/22 03:50 Clumped Platelets Not Reportable 07/27/22 03:50 Plt Clumps, EDTA Not Reportable 07/27/22 03:50 Large Platelets Not Reportable 07/27/22 03:50 Giant Platelets Not Reportable 07/27/22 03:50 Platelet Satelliting Not Reportable 07/27/22 03:50 Plt Morphology Comment Not Reportable 07/27/22 03:50 RBC Morphology Not Reportable 07/27/22 03:50 Dimorphic RBCs Not Reportable 07/27/22 03:50 Polychromasia Not Reportable 07/27/22 03:50 Hypochromasia Not Reportable 07/27/22 03:50 Poikilocytosis Not Reportable 07/27/22 03:50 Anisocytosis Not Reportable 07/27/22 03:50 Microcytosis Not Reportable 07/27/22 03:50 Macrocytosis Not Reportable 07/27/22 03:50 Spherocytes Not Reportable 07/27/22 03:50 Pappenheimer Bodies Not Reportable 07/27/22 03:50 Sickle Cells Not Reportable 07/27/22 03:50 Target Cells Not Reportable 07/27/22 03:50 Tear Drop Cells Not Reportable 07/27/22 03:50 Ovalocytes Not Reportable 07/27/22 03:50 Helmet Cells Not Reportable 07/27/22 03:50 Reynolds-Arkwright Bodies Not Reportable 07/27/22 03:50 [place] Rings Not Reportable 07/27/22 03:50 Leonora Cells Not Reportable 07/27/22 03:50 Bite Cells Not Reportable 07/27/22 03:50 Crenated Cell Not Reportable 07/27/22 03:50 Elliptocytes Not Reportable 07/27/22 03:50 Acanthocytes (Spur) Not Reportable 07/27/22 03:50 Rouleaux Not Reportable 07/27/22 03:50 Hemoglobin C Crystals Not Reportable 07/27/22 03:50 Schistocytes Not Reportable 07/27/22 03:50 Malaria parasites Not Reportable 07/27/22 03:50 [place] Bodies Not Reportable 07/27/22 03:50 Hem Pathologist Commnt No 07/27/22 03:50 ABG pH 7.461 pH Units (7.350-7.450) H 07/30/22 04:25 ABG pCO2 26.6 mm Hg 07/30/22 04:25 ABG pO2 123.0 mm Hg (80.0-90.0) H 07/30/22 04:25 ABG HCO3 18.6 mmol/L (20.0-26.0) L 07/30/22 04:25 ABG O2 Saturation 98.5 % (95.0-99.0) 07/30/22 04:25 ABG O2 Content 14.9 (0.0-44) 07/30/22 04:25 ABG Base Excess -4.1 mmol/L (-2.0-3.0) L 07/30/22 04:25 ABG Hemoglobin 10.8 gm/dl (14.0-18.0) L 07/30/22 04:25 ABG Carboxyhemoglobin 1.2 % (0.0-5.0) 07/30/22 04:25 ABG Methemoglobin 0.4 % (0.0-1.5) 07/30/22 04:25 VBG pH 7.362 (7.320-7.420) 07/25/22 19:37 Oxyhemoglobin 96.9 % (95.0-99.0) 07/30/22 04:25 FiO2 30 % 07/30/22 04:25 Sodium 148 mmol/L (137-145) H 07/30/22 04:42 Potassium 3.2 mmol/L (3.6-5.0) L 07/30/22 04:42 Chloride 116.7 mmol/L (98-107) H 07/30/22 04:42 Carbon Dioxide 18 mmol/L (22-30) L 07/30/22 04:42 Anion Gap 17 mmol/L 07/30/22 04:42 BUN 69 mg/dL (9-20) H 07/30/22 04:42 Creatinine 2.0 mg/dL (0.8-1.3) H 07/30/22 04:42 Estimated GFR 33 ml/min 07/30/22 04:42 BUN/Creatinine Ratio 35 % 07/30/22 04:42 Glucose 197 mg/dL (75-100) H 07/30/22 04:42 POC Glucose 199 mg/dL (70-105) H 07/30/22 11:41 Hemoglobin A1c 12.3 % (4-6) H 07/27/22 12:13 Lactic Acid 9.70 mmol/L (0.7-2.0) H* 07/26/22 15:36 Calcium 6.8 mg/dL (8.4-10.2) L 07/30/22 04:42 Phosphorus 1.70 mg/dL (2.5-4.5) L 07/30/22 04:42 Magnesium 2.00 mg/dL (1.7-2.3) 07/30/22 04:42 Total Bilirubin 0.30 mg/dL (0.1-1.2) 07/27/22 03:50 AST 64 units/L (5-40) H 07/27/22 03:50 ALT 31 units/L (7-56) 07/27/22 03:50 Alkaline Phosphatase 61 units/L (35-129) 07/27/22 03:50 Ammonia 64.0 umol/L (25-60) H 07/25/22 19:37 Total Creatine Kinase 158 units/L (55-170) 07/25/22 19:37 CK-MB (CK-2) < 1.0 ng/mL (0.0-4.0) 07/25/22 19:37 CK-MB (CK-2) Rel Index 0.6 (0-4) 07/25/22 19:37 Troponin T 0.049 ng/mL (0.00-0.029) H D 07/26/22 15:36 Total Protein 4.1 g/dL (6.3-8.2) L D 07/27/22 03:50 Albumin 2.1 g/dL (3.9-5) L 07/27/22 03:50 Albumin/Globulin Ratio 1.1 % 07/27/22 03:50 Triglycerides 362 mg/dL (2-149) H 07/25/22 19:37 Cholesterol 126 mg/dL (50-199) 07/25/22 19:37 LDL Cholesterol Direct 44 mg/dL (50-130) L 07/25/22 19:37 HDL Cholesterol 34 mg/dL (40-59) L 07/25/22 19:37 Cholesterol/HDL Ratio 3.70 % 07/25/22 19:37 TSH 2.170 mlU/mL (0.270-4.200) 07/25/22 19:37 Free T4 1.18 ng/dL (0.76-1.46) 07/25/22 19:37 Urine Color Lin (Yellow) 07/26/22 08:31 Urine Turbidity Cloudy (Clear) 07/26/22 08:31 Specific [place] (Man) 1.010 (1.003-1.030) 07/26/22 08:31 Ur Protein (Man) <30 mg dl mg/dL (Negative) 07/26/22 08:31 Ur Ketones (Man) Negative (Negative) 07/26/22 08:31 Ur Nitrite (Man) Negative (Negative) 07/26/22 08:31 Ur Reducing Substances Not Reportable 07/26/22 08:31 Urine Bilirubin (Man) Negative (Negative) 07/26/22 08:31 Urine Ictotest Not Reportable 07/26/22 08:31 Leukocyte Esterase (Man) Trace (Negative) 07/26/22 08:31 Urine WBC (Auto) < 1.0 /HPF (0.0-6.0) 07/26/22 08:31 Urine RBC (Auto) 1.0 /HPF (0.0-6.0) 07/26/22 08:31 U Epithel Cells (Auto) 3.0 /HPF (0-13.0) 07/26/22 08:31 Urine RBC (Manual) 5-10 (Negative) 07/26/22 08:31 Ur Renal Epithelial Cell 3 /LPF 07/26/22 08:31 Urine Mucus Few /HPF 07/26/22 08:31 Urine Creatinine 118.4 mg/dL (0.1-20.0) H 07/26/22 18:10 Protein/Creatinin Ratio 1.23 07/26/22 18:10 Urine Sodium 108 mmol/L 07/26/22 18:10 Urine Total Protein 146 mg/dL (5-11.8) H 07/26/22 18:10 Microbiology: Microbiology 07/25/22 22:10 Peripheral/Venous Blood Culture - Preliminary NO GROWTH AFTER 4 DAYS 07/25/22 21:08 Peripheral/Venous Blood Culture - Preliminary NO GROWTH AFTER 4 DAYS Yañez/IV: Voiding Method Indwelling Catheter Active Medications - Current Medications Current Medications: Generic Name Dose Route Start Last Admin Trade Name Freq PRN Reason Stop Dose Admin Acetaminophen 650 mg 07/26/22 00:31 07/28/22 06:00 Acetaminophen 325 Mg Tab PO 650 mg Q4H PRN Administration Pain MILD(1-3)/Fever >100.5/LANTIGUA Acetaminophen 650 mg 07/26/22 02:04 Acetaminophen 650 Mg Rect Supp NC Q4H PRN Pain, Mild (1-3) Albuterol 2.5 mg 07/26/22 00:31 Albuterol 2.5 Mg/3 Ml Nebu IH Q3HRT PRN Shortness Of Breath Amiodarone HCl 200 mg 07/29/22 15:00 07/30/22 09:38 Amiodarone 200 Mg Tab PO 200 mg BID LIZZIE Administration Atorvastatin Calcium 40 mg 07/26/22 22:00 07/29/22 21:16 Atorvastatin 40 Mg Tab PO 40 mg QHS LIZZIE Administration Dextrose 50 ml 07/27/22 09:25 Dextrose 50% In Water (25gm) 50 Ml Syringe IV Q30MIN PRN Hypoglycemia Protocol Famotidine 10 mg 07/28/22 10:00 07/29/22 21:17 Famotidine 10 Mg Tab FEEDTUBE 10 mg BID LIZZIE Administration Hydrocortisone Sodium Succinate 100 mg 07/30/22 14:00 Hydrocortisone Sod Succ 100 Mg/2 Ml Vial IV Q8HR LIZZIE NORepinephrine/NS 8 MG-250 ML 8 mg in 250 mls @ 3.75 mls/hr 07/25/22 23:00 07/27/22 19:16 Norepinephrine/Ns 8 Mg-250 Ml (Double Conc) IV 0 mcg/min TITRATE LIZZIE 0 mls/hr Titration Protocol 2 MCG/MIN Vasopressin 20 unit/ Sodium 101 mls @ 9.09 mls/hr 07/26/22 05:00 07/27/22 19:16 Chloride IV 0 units/min TITR LIZZIE 0 mls/hr Titration Protocol 0.03 UNITS/MIN Cefepime HCl 2 gm in 100 mls @ 200 mls/hr 07/27/22 11:00 07/30/22 11:00 Cefepime/Ns 2 Gm/100 Ml IV 200 mls/hr Q24H LIZZIE Administration Protocol Insulin Glargine 30 units 07/28/22 22:00 07/30/22 09:38 Insulin Glargine 100 Units/Ml SUB-Q 30 units BID LIZZIE Administration Insulin Human Regular 0 units 07/27/22 12:00 07/30/22 12:54 Insulin Regular, Human 100 Units/1 Ml SUB-Q 3 units Q6H LIZZIE Administration Protocol Multi-Ingred Cream/Lotion/Oil/Oint 1 applic 07/27/22 03:17 07/27/22 03:35 Mineral Oil/Petrolatum, White Ophth Oint 3.5 Gm OU 1 applic PRN PRN Administration Dry Eye(s) Nitroglycerin 0.4 mg 07/26/22 00:31 Nitroglycerin 0.4 Mg Tab Subl SL Q5M PRN Chest Pain Ondansetron HCl 4 mg 07/26/22 00:31 Ondansetron 4 Mg/2 Ml Inj IV Q8H PRN Nausea And Vomiting Sodium Bicarbonate 650 mg 07/29/22 20:00 07/30/22 07:25 Sodium Bicarbonate 650 Mg Tab PO 650 mg TID LIZZIE Administration Sodium Chloride 10 ml 07/26/22 10:00 07/30/22 09:38 Sodium Chloride 0.9% 10 Ml Flush Syringe IV 10 ml BID LIZZIE Administration Sodium Chloride 10 ml 07/26/22 00:31 Sodium Chloride 0.9% 10 Ml Flush Syringe IV PRN PRN LINE FLUSH Nutrition/Malnutrition Assess - Dietary Evaluation Nutrition/Malnutrition Findings: Nutrition Notes Start: 07/26/22 10:25 Freq: Status: Active Protocol: Document 07/28/22 16:31 NHALL (Rec: 07/28/22 16:47 [facility] [id number]) Nutrition Notes Initial or Follow up Reassessment Current Diagnosis Acute Kidney Injury,Diabetes, Hypertension,Respiratory Failure,Hyperlipidemia Other Pertinent Diagnosis s/p cardiac arrest, s/p DKA, acute metabolic encephalopathy Current Diet TF - Vital AF 1.2 at 55ml/hr Labs/Tests Na 148 BUN 74 Cr 3.2 BG 471 A1C 12.3 Pertinent Medications Amiodarone gtt, Solu-Cortef Height 5 ft 5 in Weight 49.8 kg [place] Body Weight (kg) 61.81 BMI 18.2 Weight change and time frame Bed scale not working; pt appears to be at least 67 in tall and weigh more than 49. 8kg at this time; generalized edema present Subjective/Other Information Observed Vital AF 1.2 infusing at 35ml/hr. Pt remains on vent support. Percent of energy/protein needs met: 72% energy 105% pro Burn Absent Trauma Absent Minimum of two criteria No Fluid Accumulation Mild (non-severe) #1 Nutrition Diagnosis Inadequate oral intake Diagnosis Progress(for reassessment Continues documentation) Is patient on ventilator? Yes Is Patient Ambulatory and/or Out of Bed No REE-([place] Jeor-confined to bed) 1398.456 Calculation [facility]ations [facility] Additional Notes Pro needs 0.8-1.2g/k-60g/ day Fluid needs per MD. Nutrition Intervention Nutrition Support: Change TF formula to Glucerna 1.2 at 45ml/hr with 150ml water flush q4h until hypernatremia resolved. Kcal 1,296 Protein (gm) 65 Carbohydrates (gm) 124 Fat (gm) 65 Fluid (mL) 869 Fiber (gm) 17 Goal #1 TF tolerance Goal #2 TF to provide at least 75% energy and pro needs Follow-Up By: 07/31/22 Additional Comments F/U: TF formula change/ tolerance, vent status, renal function, wt/ht <TOY LUDWIG - Last Filed: 08/08/22 08:15> History Interval history: I saw and evaluated the patient. Discussed with the nurse practitioner and agree with their findings and plan as documented in this note. Hospitalist Physical - Constitutional Vitals: Temp Pulse Resp BP Pulse Ox 98.1 F 82 17 134/70 96 08/08/22 07:16 08/08/22 08:04 08/08/22 08:04 08/08/22 08:00 08/08/22 08:04 HEART Score - HEART Score Troponin: Troponin T 0.049 ng/mL (0.00-0.029) H D 07/26/22 15:36 Results - Labs CBC & Chem 7: 08/08/22 04:46 08/08/22 04:46 Labs: Laboratory Last Values WBC 9.9 K/mm3 (4.5-11.0) 08/08/22 04:46 RBC 3.16 M/mm3 (3.65-5.03) L 08/08/22 04:46 Hgb 8.9 gm/dl (11.8-15.2) L 08/08/22 04:46 Hct 27.4 % (35.5-45.6) L 08/08/22 04:46 MCV 87 fl (84-94) 08/08/22 04:46 MCH 28 pg (28-32) 08/08/22 04:46 MCHC 33 % (32-34) 08/08/22 04:46 RDW 15.5 % (13.2-15.2) H 08/08/22 04:46 Plt Count 187 K/mm3 (140-440) 08/08/22 04:46 Lymph % (Auto) 10.6 % (13.4-35.0) L 08/07/22 04:16 [place] % (Auto) 5.4 % (0.0-7.3) 08/07/22 04:16 Eos % (Auto) 0.7 % (0.0-4.3) 08/07/22 04:16 Baso % (Auto) 0.2 % (0.0-1.8) 08/07/22 04:16 Lymph # (Auto) 0.9 K/mm3 (1.2-5.4) L 08/07/22 04:16 [place] # (Auto) 0.4 K/mm3 (0.0-0.8) 08/07/22 04:16 Eos # (Auto) 0.1 K/mm3 (0.0-0.4) 08/07/22 04:16 Baso # (Auto) 0.0 K/mm3 (0.0-0.1) 08/07/22 04:16 Add Manual Diff Complete 07/27/22 03:50 Total Counted 100 07/27/22 03:50 Seg Neutrophils % 83.1 % (40.0-70.0) H 08/07/22 04:16 Seg Neuts % (Manual) 78.0 % (40.0-70.0) H 07/27/22 03:50 Band Neutrophils % 16.0 % 07/27/22 03:50 Lymphocytes % (Manual) 3.0 % (13.4-35.0) L 07/27/22 03:50 Reactive Lymphs % (Man) 0 % 07/27/22 03:50 Monocytes % (Manual) 2.0 % (0.0-7.3) 07/27/22 03:50 Eosinophils % (Manual) 0 % (0.0-4.3) 07/27/22 03:50 Basophils % (Manual) 0 % (0.0-1.8) 07/27/22 03:50 Metamyelocytes % 1.0 % 07/27/22 03:50 Myelocytes % 0 % 07/27/22 03:50 Promyelocytes % 0 % 07/27/22 03:50 Blast Cells % 0 % 07/27/22 03:50 Nucleated RBC % Not Reportable 07/27/22 03:50 Seg Neutrophils # 6.7 K/mm3 (1.8-7.7) 08/07/22 04:16 Seg Neutrophils # Man 12.0 K/mm3 (1.8-7.7) H 07/27/22 03:50 Band Neutrophils # 2.5 K/mm3 07/27/22 03:50 Lymphocytes # (Manual) 0.5 K/mm3 (1.2-5.4) L 07/27/22 03:50 Abs React Lymphs (Man) 0.0 K/mm3 07/27/22 03:50 Monocytes # (Manual) 0.3 K/mm3 (0.0-0.8) 07/27/22 03:50 Eosinophils # (Manual) 0.0 K/mm3 (0.0-0.4) 07/27/22 03:50 Basophils # (Manual) 0.0 K/mm3 (0.0-0.1) 07/27/22 03:50 Metamyelocytes # 0.2 K/mm3 07/27/22 03:50 Myelocytes # 0.0 K/mm3 07/27/22 03:50 Promyelocytes # 0.0 K/mm3 07/27/22 03:50 Blast Cells # 0.0 K/mm3 07/27/22 03:50 WBC Morphology Not Reportable 07/27/22 03:50 Hypersegmented Neuts Not Reportable 07/27/22 03:50 Hyposegmented Neuts Not Reportable 07/27/22 03:50 Hypogranular Neuts Not Reportable 07/27/22 03:50 Smudge Cells Not Reportable 07/27/22 03:50 Toxic Granulation Not Reportable 07/27/22 03:50 Toxic Vacuolation Not Reportable 07/27/22 03:50 Dohle Bodies Not Reportable 07/27/22 03:50 Pelger-Huet Anomaly Not Reportable 07/27/22 03:50 Jay Rods Not Reportable 07/27/22 03:50 Platelet Estimate Consistent w auto 07/27/22 03:50 Clumped Platelets Not Reportable 07/27/22 03:50 Plt Clumps, EDTA Not Reportable 07/27/22 03:50 Large Platelets Not Reportable 07/27/22 03:50 Giant Platelets Not Reportable 07/27/22 03:50 Platelet Satelliting Not Reportable 07/27/22 03:50 Plt Morphology Comment Not Reportable 07/27/22 03:50 RBC Morphology Not Reportable 07/27/22 03:50 Dimorphic RBCs Not Reportable 07/27/22 03:50 Polychromasia Not Reportable 07/27/22 03:50 Hypochromasia Not Reportable 07/27/22 03:50 Poikilocytosis Not Reportable 07/27/22 03:50 Anisocytosis Not Reportable 07/27/22 03:50 Microcytosis Not Reportable 07/27/22 03:50 Macrocytosis Not Reportable 07/27/22 03:50 Spherocytes Not Reportable 07/27/22 03:50 Pappenheimer Bodies Not Reportable 07/27/22 03:50 Sickle Cells Not Reportable 07/27/22 03:50 Target Cells Not Reportable 07/27/22 03:50 Tear Drop Cells Not Reportable 07/27/22 03:50 Ovalocytes Not Reportable 07/27/22 03:50 Helmet Cells Not Reportable 07/27/22 03:50 Reynolds-Arkwright Bodies Not Reportable 07/27/22 03:50 [place] Rings Not Reportable 07/27/22 03:50 Leonora Cells Not Reportable 07/27/22 03:50 Bite Cells Not Reportable 07/27/22 03:50 Crenated Cell Not Reportable 07/27/22 03:50 Elliptocytes Not Reportable 07/27/22 03:50 Acanthocytes (Spur) Not Reportable 07/27/22 03:50 Rouleaux Not Reportable 07/27/22 03:50 Hemoglobin C Crystals Not Reportable 07/27/22 03:50 Schistocytes Not Reportable 07/27/22 03:50 Malaria parasites Not Reportable 07/27/22 03:50 [place] Bodies Not Reportable 07/27/22 03:50 Hem Pathologist Commnt No 07/27/22 03:50 PT 14.3 Sec. (12.2-14.9) 07/31/22 04:13 INR 0.97 (0.87-1.13) 07/31/22 04:13 Heparin Anti-Xa, Unfract Negative (Negative) 08/01/22 04:17 ABG pH 7.500 pH Units (7.350-7.450) H 08/03/22 03:35 ABG pCO2 26.7 mm Hg 08/03/22 03:35 ABG pO2 129.6 mm Hg (80.0-90.0) H 08/03/22 03:35 ABG HCO3 20.4 mmol/L (20.0-26.0) 08/03/22 03:35 ABG O2 Saturation 98.7 % (95.0-99.0) 08/03/22 03:35 ABG O2 Content 13.5 (0.0-44) 08/03/22 03:35 ABG Base Excess -2.0 mmol/L (-2.0-3.0) 08/03/22 03:35 ABG Hemoglobin 9.7 gm/dl (14.0-18.0) L 08/03/22 03:35 ABG Carboxyhemoglobin 1.5 % (0.0-5.0) 08/03/22 03:35 ABG Methemoglobin 0.4 % (0.0-1.5) 08/03/22 03:35 VBG pH 7.362 (7.320-7.420) 07/25/22 19:37 Oxyhemoglobin 96.8 % (95.0-99.0) 08/03/22 03:35 FiO2 30 % 08/03/22 03:35 Sodium 139 mmol/L (137-145) 08/08/22 04:46 Potassium 3.6 mmol/L (3.6-5.0) 08/08/22 04:46 Chloride 104.5 mmol/L (98-107) 08/08/22 04:46 Carbon Dioxide 22 mmol/L (22-30) 08/08/22 04:46 Anion Gap 16 mmol/L 08/08/22 04:46 BUN 19 mg/dL (9-20) 08/08/22 04:46 Creatinine 1.0 mg/dL (0.8-1.3) 08/08/22 04:46 Estimated GFR > 60 ml/min 08/08/22 04:46 BUN/Creatinine Ratio 19 % 08/08/22 04:46 Glucose 200 mg/dL (75-100) H 08/08/22 04:46 POC Glucose 183 mg/dL (70-105) H 08/08/22 00:01 Hemoglobin A1c 12.3 % (4-6) H 07/27/22 12:13 Lactic Acid 9.70 mmol/L (0.7-2.0) H* 07/26/22 15:36 Calcium 6.3 mg/dL (8.4-10.2) L 08/08/22 04:46 Phosphorus 2.00 mg/dL (2.5-4.5) L 08/07/22 04:16 Magnesium 1.80 mg/dL (1.7-2.3) 08/07/22 04:16 Total Bilirubin 0.30 mg/dL (0.1-1.2) 08/08/22 04:46 Direct Bilirubin < 0.2 mg/dL (0-0.2) 08/08/22 04:46 Indirect Bilirubin 0.1 mg/dL 08/08/22 04:46 AST 81 units/L (5-40) H 08/08/22 04:46 ALT 42 units/L (7-56) 08/08/22 04:46 Alkaline Phosphatase 116 units/L (35-129) 08/08/22 04:46 Ammonia 64.0 umol/L (25-60) H 07/25/22 19:37 Total Creatine Kinase 158 units/L (55-170) 07/25/22 19:37 CK-MB (CK-2) < 1.0 ng/mL (0.0-4.0) 07/25/22 19:37 CK-MB (CK-2) Rel Index 0.6 (0-4) 07/25/22 19:37 Troponin T 0.049 ng/mL (0.00-0.029) H D 07/26/22 15:36 C-Reactive Protein 21.50 mg/dL (0.00-1.30) H 08/05/22 21:43 Total Protein 5.1 g/dL (6.3-8.2) L 08/08/22 04:46 Albumin 1.7 g/dL (3.9-5) L 08/08/22 04:46 Albumin/Globulin Ratio 0.5 % 08/08/22 04:46 Triglycerides 362 mg/dL (2-149) H 07/25/22 19:37 Cholesterol 126 mg/dL (50-199) 07/25/22 19:37 LDL Cholesterol Direct 44 mg/dL (50-130) L 07/25/22 19:37 HDL Cholesterol 34 mg/dL (40-59) L 07/25/22 19:37 Cholesterol/HDL Ratio 3.70 % 07/25/22 19:37 Serotonin Release Assay See scanned result 08/01/22 04:17 Procalcitonin 0.56 ng/mL (<0.15) 08/05/22 21:43 TSH 2.170 mlU/mL (0.270-4.200) 07/25/22 19:37 Free T4 1.18 ng/dL (0.76-1.46) 07/25/22 19:37 Urine Color Lin (Yellow) 08/05/22 11:00 Urine Turbidity Cloudy (Clear) 08/05/22 11:00 Specific [place] (Man) 1.017 (1.003-1.030) 08/05/22 11:00 Ur Protein (Man) 2+ mg/dL (Negative) 08/05/22 11:00 Ur Ketones (Man) Negative (Negative) 08/05/22 11:00 Ur Nitrite (Man) Negative (Negative) 08/05/22 11:00 Ur Reducing Substances Not Reportable 07/26/22 08:31 Urine Bilirubin (Man) Negative (Negative) 08/05/22 11:00 Urine Ictotest Not Reportable 08/05/22 11:00 Leukocyte Esterase (Man) Negative (Negative) 08/05/22 11:00 Urine WBC (Auto) 6.0 /HPF (0.0-6.0) 08/05/22 11:00 Urine RBC (Auto) 6.0 /HPF (0.0-6.0) 08/05/22 11:00 U Epithel Cells (Auto) 1.0 /HPF (0-13.0) 08/05/22 11:00 Urine Bacteria (Auto) 1+ /HPF (Negative) 08/05/22 11:00 Urine RBC (Manual) 4+ (Negative) 08/05/22 11:00 Ur Renal Epithelial Cell 3 /LPF 07/26/22 08:31 Uric Acid Crystals Few 08/05/22 11:00 Amorphous Crystals Few 08/05/22 11:00 Urine Mucus Few /HPF 08/05/22 11:00 Urine Creatinine 118.4 mg/dL (0.1-20.0) H 07/26/22 18:10 Protein/Creatinin Ratio 1.23 07/26/22 18:10 Urine Sodium 108 mmol/L 07/26/22 18:10 Urine Total Protein 146 mg/dL (5-11.8) H 07/26/22 18:10 Nasal Screen MRSA (PCR) Negative (Negative) 08/05/22 14:00 Heparin-induced Plt Ab Negative (Negative) 08/01/22 04:17 UF Heparin High Dose 0 % Release 08/01/22 04:17 SU UFH Low Dose 0.1 0 % Release 08/01/22 04:17 SU UFH Low Dose 0.5 0 % Release 08/01/22 04:17 Microbiology: Microbiology 08/05/22 21:56 Peripheral/Venous Blood Culture - Preliminary NO GROWTH AFTER 48 HOURS 08/05/22 21:43 Peripheral/Venous Blood Culture - Preliminary NO GROWTH AFTER 48 HOURS Yañez/IV: Voiding Method Indwelling Catheter Active Medications - Current Medications Current Medications: Generic Name Dose Route Start Last Admin Trade Name Freq PRN Reason Stop Dose Admin Acetaminophen 650 mg 07/26/22 00:31 08/08/22 06:11 Acetaminophen 325 Mg Tab PO 650 mg Q4H PRN Administration Pain MILD(1-3)/Fever >100.5/LANTIGUA Acetaminophen 650 mg 07/26/22 02:04 Acetaminophen 650 Mg Rect Supp NC Q4H PRN Pain, Mild (1-3) Albuterol 2.5 mg 07/26/22 00:31 Albuterol 2.5 Mg/3 Ml Nebu IH Q3HRT PRN Shortness Of Breath Amiodarone HCl 200 mg 08/04/22 11:00 08/07/22 21:24 Amiodarone 200 Mg Tab FEEDTUBE 200 mg BID LIZZIE Administration Atorvastatin Calcium 40 mg 08/04/22 22:00 08/07/22 21:24 Atorvastatin 40 Mg Tab FEEDTUBE 40 mg QHS LIZZIE Administration Dextrose 50 ml 07/27/22 09:25 08/04/22 06:03 Dextrose 50% In Water (25gm) 50 Ml Syringe IV 50 ml Q30MIN PRN Administration Hypoglycemia Protocol Famotidine 10 mg 07/28/22 10:00 08/07/22 21:24 Famotidine 10 Mg Tab FEEDTUBE 10 mg BID LIZZIE Administration Meropenem/Sodium Chloride 1 gram in 100 mls @ 100 mls/hr 08/06/22 10:00 08/08/22 02:15 Merrem/Ns 1 Gram/100 Ml IV 100 mls/hr Q8H LIZZIE Administration Protocol Vancomycin HCl 750 mg/ Sodium 265 mls @ 176.667 mls/hr 08/07/22 10:00 08/07/22 09:18 Chloride IV 176.667 mls/hr Q24H LIZZIE Administration Insulin Glargine 15 units 08/07/22 22:00 08/07/22 23:17 Insulin Glargine 100 Units/Ml SUB-Q 15 units QHS LIZZIE Administration Insulin Human Regular 0 units 07/27/22 12:00 08/08/22 06:29 Insulin Regular, Human 100 Units/1 Ml SUB-Q 4 units Q6H LIZZIE Administration Protocol Multi-Ingred Cream/Lotion/Oil/Oint 1 applic 07/27/22 03:17 07/27/22 03:35 Mineral Oil/Petrolatum, White Ophth Oint 3.5 Gm OU 1 applic PRN PRN Administration Dry Eye(s) Nitroglycerin 0.4 mg 07/26/22 00:31 Nitroglycerin 0.4 Mg Tab Subl SL Q5M PRN Chest Pain Ondansetron HCl 4 mg 07/26/22 00:31 Ondansetron 4 Mg/2 Ml Inj IV Q8H PRN Nausea And Vomiting Sodium Bicarbonate 650 mg 08/04/22 14:00 08/07/22 20:25 Sodium Bicarbonate 650 Mg Tab FEEDTUBE 650 mg TID LIZZIE Administration Sodium Chloride 10 ml 07/26/22 10:00 08/07/22 22:00 Sodium Chloride 0.9% 10 Ml Flush Syringe IV 10 ml BID LIZZIE Administration Sodium Chloride 10 ml 07/26/22 00:31 Sodium Chloride 0.9% 10 Ml Flush Syringe IV PRN PRN LINE FLUSH Sodium Phosphate 250 mg 08/07/22 18:00 08/07/22 21:24 K-Phos Neutral 250 Mg Tab PO 08/09/22 17:59 250 mg QID LIZZIE Administration Nutrition/Malnutrition Assess - Dietary Evaluation Nutrition/Malnutrition Findings: Nutrition Notes Start: 07/26/22 10:25 Freq: Status: Active Protocol: Document 08/07/22 15:00 CM (Rec: 08/07/22 15:13 CM [id number]) Co-Sign 08/07/22 15:00 WW Nutrition Notes Initial or Follow up Brief Note Current Diagnosis Sepsis,Hypertension, Respiratory Failure,Stroke, Hyperlipidemia Other Pertinent Diagnosis s/p Cardiac Arrest, AMS Current Diet TF - Glucerna 45mL/hr Labs/Tests 08/07: K 3.4 Cl 107.8 BUN 21 Glu 216 Pertinent Medications 08/07: Atorvastatin Humulin Height 5 ft 5 in Weight 49.8 kg [place] Body Weight (kg) 61.81 BMI 18.2 Weight Status Underweight Subjective/Other Information RD follow-up per protocol. Pt currently receiving Glucerna @ 45mL/hr. RN reported loose stool 2x q day. No gastric residuals recorded. Pt continues ventilation via tracheostomy. Abdomen large, round, w/ BS+ per physical assessment. No contraindications to continue. GI Symptoms None Skin Integrity/Comment [place] 10 - breakdown / blisters Current % PO Other #2 Nutrition Diagnosis Underweight Diagnosis Progress(for reassessment Continues documentation) #1 Nutrition Diagnosis Inadequate oral intake Diagnosis Progress(for reassessment Continues documentation) Is patient on ventilator? Yes Is Patient Ambulatory and/or Out of Bed No REE-([facility]-confined to bed) 1398.456 Kcal/Kg value to use for calculation 31 Approximate Energy Requirements Using 1544 kcal/Kg Calculation Used for Recommendations Kcal/kg Additional Notes Pro needs 1.2-2.0g/k-100g /day Fluid needs per MD. Nutrition Intervention Nutrition Support: Change TF rate to 55mL/hr of Glucerna 1.2. Flush with 100mL q 4hrs. Kcal 1,584 Protein (gm) 79 Fluid (mL) 1,060 % RDI: 102%Kcal /100% AA Goal #1 TF tolerance Goal #2 TF to provide at least 75% energy and pro needs Follow-Up By: 08/14/22 Additional Comments Monitor TF administration, TF tolerance, nutrition-related labs, wt status.
[2022-07-30] MEDS: HYDROCORTISONE SOD SUCC 100 MG/2 ML VIAL IV SCH ×2 (14:30→21:14)
[2022-07-30] MEDS: FAMOTIDINE 10 MG TAB FEEDTUBE SCH ×2 (15:05→21:08)
[2022-07-31 03:58] LABS: ABG Base Excess -1.7 mmol/L (-2.0-3.0); ABG HCO3 20.2 mmol/L (20.0-26.0); ABG Methemoglobin 0.3 % (0.0-1.5); ABG Oxygen Saturation 95.4 % (95.0-99.0); ABG PCO2 25.7 mm Hg; ABG PH 7.513 pH Units (7.350-7.450); ABG PO2 64.1 mm Hg (80.0-90.0)
[2022-07-31 04:46] LABS: Hematocrit 32.8 % (35.5-45.6); Hemoglobin 10.5 gm/dl (11.8-15.2); Mean Corpuscular HGB Conc 32 % (32-34); Mean Corpuscular Volume 88 fl (84-94); Red Blood Count 3.71 M/mm3 (3.65-5.03); Red Cell Distribution Width 15.3 % (13.2-15.2)
[2022-07-31 04:51] LABS: Platelet Count 55 K/mm3 (140-440)
[2022-07-31 04:55] LABS: INR 0.97 (0.87-1.13)
[2022-07-31 04:59] LABS: Calcium 6.4 mg/dL (8.4-10.2)
[2022-07-31] MEDS: INSULIN REGULAR, HUMAN 100 UNITS/1 ML SUB-Q SCH ×3 (05:39→17:26)
[2022-07-31] MEDS: HYDROCORTISONE SOD SUCC 100 MG/2 ML VIAL IV SCH ×3 (05:43→21:04)
[2022-07-31] MEDS: INSULIN GLARGINE 100 UNITS/ML SUB-Q SCH ×2 (09:32→21:03)
[2022-07-31] MEDS: AMIODARONE 200 MG TAB PO SCH ×2 (09:32→21:04)
[2022-07-31] MEDS: SODIUM BICARBONATE 650 MG TAB PO SCH ×3 (09:32→20:19)
--- NOTE | 2022-07-31 09:49 | Hem/Onc Consultation ---
History of Present Illness - History of Present Illness heme data review 77yo man with h/o stroke (2020), now with confusion, cardiac arrest found to have low plt count. no bleeding reported blood cultures neg on cefipime now data reviewed below creat 1.6 ammonia 64 PT INR nl IMP: low plt count likely due to sepsis liver dysfunction is possible, with high ammonia 64 hemodilution looks like a factor doubt HIT because no known recent heparin exposure REC: plt transfusions as needed for plt<20 labs to include PF4 Ab testind consider liver ultrasoune Active Medications Cefepime HCl (Cefepime/Ns 2 Gm/100 Ml) 2 gm in 100 mls @ 200 mls/hr IV Q24H [facility]; Protocol Last Admin: 07/30/22 11:00 Dose: 200 mls/hr Laboratory Last Values WBC 7.2 K/mm3 (4.5-11.0) 07/31/22 04:13 Hgb 10.5 gm/dl (11.8-15.2) L 07/31/22 04:13 Hct 32.8 % (35.5-45.6) L 07/31/22 04:13 Plt Count 55 K/mm3 (140-440) L 07/31/22 04:13 Seg Neutrophils % 70.7 % (40.0-70.0) H 07/25/22 19:37 Band Neutrophils % 16.0 % 07/27/22 03:50 PT 14.3 Sec. (12.2-14.9) 07/31/22 04:13 INR 0.97 (0.87-1.13) 07/31/22 04:13 Creatinine 1.6 mg/dL (0.8-1.3) H 07/31/22 04:00 Total Bilirubin 0.30 mg/dL (0.1-1.2) 07/27/22 03:50 AST 64 units/L (5-40) H 07/27/22 03:50 ALT 31 units/L (7-56) 07/27/22 03:50 Alkaline Phosphatase 61 units/L (35-129) 07/27/22 03:50 Ammonia 64.0 umol/L (25-60) H 07/25/22 19:37 Urine Total Protein 146 mg/dL (5-11.8) H 09/07/22 18:10 Past History Past Medical History: acute NC, diabetes, hypertension Past Surgical History: cholecystectomy Social history: no significant social history Family history: diabetes, hypertension Medications and Allergies Allergies Allergy/AdvReac Type Severity Reaction Status Date / Time aspirin Allergy Swelling Verified 02/15/20 13:24 iron Allergy Itching Verified 02/15/20 13:24 Home Medications Medication Instructions Recorded Confirmed Last Taken Type metFORMIN [Glucophage] 1,000 mg PO BID 02/11/14 02/15/20 02/14/20 History Acetaminophen [Acetaminophen ER 650 mg PO Q8HR PRN #20 tablet.er 10/21/19 02/15/20 Unknown Rx TAB] ALBUTEROL NEB's [Proventil 0.083% 2.5 mg IH Q3HRT PRN #30 nebu 03/09/20 Unknown Rx NEBS] Aspirin EC [Halfprin EC] 81 mg PO QDAY #30 tablet. 03/09/20 Unknown Rx AtorvaSTATin [Lipitor] 40 mg FEEDTUBE QHS #30 tablet 03/09/20 Unknown Rx Famotidine [Pepcid] 20 mg FEEDTUBE DAILY #30 tablet 03/09/20 Unknown Rx Insulin Glargine [Lantus VIAL] 50 units SUB-Q QAMDIAB #1 vial 03/09/20 Unknown Rx Insulin Glargine [Lantus VIAL] 50 units SUB-Q QHS #1 vial 03/09/20 Unknown Rx Insulin Regular, Human [HumuLIN R] 0 units SUB-Q Q6HR #1 vial 03/09/20 Unknown Rx Metoclopramide [Reglan ORAL LIQ] 5 mg FEEDTUBE Q6H PRN 30 Days 03/09/20 Unknown Rx Metoprolol [Lopressor TAB] 100 mg FEEDTUBE BID #60 tablet 03/09/20 Unknown Rx amLODIPine 10 mg FEEDTUBE QDAY #30 tablet 03/09/20 Unknown Rx traMADoL [Ultram 50 MG tab] 50 mg FEEDTUBE Q6HR PRN #10 tablet 03/09/20 Unknown Rx Active Meds: Active Medications Acetaminophen (Acetaminophen 325 Mg Tab) 650 mg PO Q4H PRN PRN Reason: Pain MILD(1-3)/Fever >100.5/LANTIGUA Last Admin: 07/28/22 06:00 Dose: 650 mg Acetaminophen (Acetaminophen 650 Mg Rect Supp) 650 mg HI Q4H PRN PRN Reason: Pain, Mild (1-3) Albuterol (Albuterol 2.5 Mg/3 Ml Nebu) 2.5 mg IH Q3HRT PRN PRN Reason: Shortness Of Breath Amiodarone HCl (Amiodarone 200 Mg Tab) 200 mg PO BID LIZZIE Last Admin: 07/31/22 09:32 Dose: 200 mg Atorvastatin Calcium (Atorvastatin 40 Mg Tab) 40 mg PO QHS LIZZIE Last Admin: 07/30/22 21:06 Dose: 40 mg Dextrose (Dextrose 50% In Water (25gm) 50 Ml Syringe) 50 ml IV Q30MIN PRN; Protocol PRN Reason: Hypoglycemia Famotidine (Famotidine 10 Mg Tab) 10 mg FEEDTUBE BID LIZZIE Last Admin: 07/30/22 21:08 Dose: 10 mg Hydrocortisone Sodium Succinate (Hydrocortisone Sod Succ 100 Mg/2 Ml Vial) 100 mg IV Q8HR LIZZIE Last Admin: 07/31/22 05:43 Dose: 100 mg NORepinephrine/NS 8 MG-250 ML (Norepinephrine/Ns 8 Mg-250 Ml (Double Conc)) 8 mg in 250 mls @ 3.75 mls/hr IV TITRATE LIZZIE; Protocol Last Titration: 07/27/22 19:16 Dose: 0 mcg/min, 0 mls/hr Vasopressin 20 unit/ Sodium (Chloride) 101 mls @ 9.09 mls/hr IV TITR LIZZIE; Protocol Last Titration: 07/27/22 19:16 Dose: 0 units/min, 0 mls/hr Cefepime HCl (Cefepime/Ns 2 Gm/100 Ml) 2 gm in 100 mls @ 200 mls/hr IV Q24H LIZZIE; Protocol Last Admin: 07/30/22 11:00 Dose: 200 mls/hr Insulin Glargine (Insulin Glargine 100 Units/Ml) 30 units SUB-Q BID LIZZIE Last Admin: 07/31/22 09:32 Dose: 30 units Insulin Human Regular (Insulin Regular, Human 100 Units/1 Ml) 0 units SUB-Q Q6H LIZZIE; Protocol Last Admin: 07/31/22 05:39 Dose: 3 units Multi-Ingred Cream/Lotion/Oil/Oint (Mineral Oil/Petrolatum, White Ophth Oint 3.5 Gm) 1 applic OU PRN PRN PRN Reason: Dry Eye(s) Last Admin: 07/27/22 03:35 Dose: 1 applic Nitroglycerin (Nitroglycerin 0.4 Mg Tab Subl) 0.4 mg SL Q5M PRN PRN Reason: Chest Pain Ondansetron HCl (Ondansetron 4 Mg/2 Ml Inj) 4 mg IV Q8H PRN PRN Reason: Nausea And Vomiting Potassium Chloride (Potassium Chloride 20 Meq Packet) 40 meq FEEDTUBE ONCE LIZZIE Stop: 07/31/22 13:00 Sodium Bicarbonate (Sodium Bicarbonate 650 Mg Tab) 650 mg PO TID LIZZIE Last Admin: 07/31/22 09:32 Dose: 650 mg Sodium Chloride (Sodium Chloride 0.9% 10 Ml Flush Syringe) 10 ml IV BID LIZZIE Last Admin: 07/31/22 09:33 Dose: 10 ml Sodium Chloride (Sodium Chloride 0.9% 10 Ml Flush Syringe) 10 ml IV PRN PRN PRN Reason: LINE FLUSH Exam - Constitutional Vitals: Last Vital Signs Temp 98.4 F 07/31/22 07:13 Pulse 112 H 07/31/22 09:21 Resp 22 07/31/22 09:21 BP 138/72 07/31/22 09:21 Pulse Ox 100 07/31/22 09:21 Results - Labs lab Results: Laboratory Results - last 24 hr 07/30/22 07/30/22 07/30/22 11:41 16:14 23:07 WBC RBC Hgb Hct MCV MCH MCHC RDW Plt Count PT INR ABG pH ABG pCO2 ABG pO2 ABG HCO3 ABG O2 Saturation ABG O2 Content ABG Base Excess ABG Hemoglobin ABG Carboxyhemoglobin ABG Methemoglobin Oxyhemoglobin FiO2 Sodium Potassium Chloride Carbon Dioxide Anion Gap BUN Creatinine Estimated GFR BUN/Creatinine Ratio Glucose POC Glucose 199 H 173 H 159 H Calcium 07/31/22 07/31/22 07/31/22 03:25 04:00 04:13 WBC 7.2 RBC 3.71 Hgb 10.5 L Hct 32.8 L MCV 88 MCH 28 MCHC 32 RDW 15.3 H Plt Count 55 L PT INR ABG pH 7.513 H ABG pCO2 25.7 ABG pO2 64.1 L ABG HCO3 20.2 ABG O2 Saturation 95.4 ABG O2 Content 13.9 ABG Base Excess -1.7 ABG Hemoglobin 10.5 L ABG Carboxyhemoglobin 1.3 ABG Methemoglobin 0.3 Oxyhemoglobin 93.8 L FiO2 28 Sodium 146 H Potassium 3.4 L Chloride 112.5 H Carbon Dioxide 21 L Anion Gap 16 BUN 53 H Creatinine 1.6 H Estimated GFR 42 BUN/Creatinine Ratio 33 Glucose 151 H POC Glucose Calcium 6.4 L 07/31/22 07/31/22 04:13 05:39 WBC RBC Hgb Hct MCV MCH MCHC RDW Plt Count PT 14.3 INR 0.97 ABG pH ABG pCO2 ABG pO2 ABG HCO3 ABG O2 Saturation ABG O2 Content ABG Base Excess ABG Hemoglobin ABG Carboxyhemoglobin ABG Methemoglobin Oxyhemoglobin FiO2 Sodium Potassium Chloride Carbon Dioxide Anion Gap BUN Creatinine Estimated GFR BUN/Creatinine Ratio Glucose POC Glucose 155 H Calcium
[2022-07-31] MEDS ORDERED: POTASSIUM CHLORIDE 20 MEQ PACKET FEEDTUBE SCH (10:00)
[2022-07-31] MEDS: FAMOTIDINE 10 MG TAB FEEDTUBE SCH ×2 (10:54→21:03)
[2022-07-31] MEDS: CEFEPIME/NS 2 GM/100 ML 2 GM/100 ML BAG IV SCH (10:54)
--- NOTE | 2022-07-31 12:43 | Progress Note ---
Assessment and Plan Patient is 77-year-old male with a past medical history of hypertension, paroxysmal A. 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 Anoxic brain injury Status post cardiac arrest Acute respiratory failure-pulmonology following AMS-neurology following DKA Acute renal failure-nephrology following Sepsis PAF Hypertension Diabetes History of CVA 2019 [id number] following Echo 07/26/2022-technically difficult study due to patient on ventilator, poor endocardial definition. Very grossly in subcostal views probably normal left ventricular systolic function EF 50 to 60% no pericardial effusion. Consider repeating echo when patient is more stable and off ventilator Plan: Suspect troponin elevation in setting of sepsis, acute renal failure, and DKA S/p cardiac arrest with unknown rhythm in setting of sepsis, acute renal failure, DKA Telemetry reviewed: patient remains in afib Continue amiodarone 200 mg p.o. twice daily Due to anoxic brain injury thrombocytopenia hold anticoagulation at this time. Will defer to neuro recs regarding anticoagulation Patient seen in conjunction with Dr. Salmeron who agrees this plan of care t - Patient Problems (1) History of CVA (cerebrovascular accident) Current Visit: Yes Status: Acute (2) Acute respiratory failure Current Visit: Yes Status: Acute (3) Cardiac arrest Current Visit: Yes Status: Acute (4) DKA (diabetic ketoacidosis) Current Visit: Yes Status: Acute (5) Leukocytosis Current Visit: Yes Status: Acute (6) Atrial fibrillation with RVR Current Visit: No Status: Acute (7) HLD (hyperlipidemia) Current Visit: No Status: Acute (8) HTN (hypertension) Current Visit: No Status: Acute Subjective Date of service: 07/31/22 Principal diagnosis: Hypernatremia, ARF Interval history: Patient remains intubated Currently A. fib 90s to 100s Objective Vital Signs Temp Pulse Pulse Pulse Resp BP Pulse Ox 07/31/22 12:00 96 H 96 H 24 132/75 100 07/31/22 11:53 98 H 07/31/22 11:25 99.3 F 07/31/22 11:00 113 H 29 H 159/84 100 07/31/22 10:45 113 H 159/84 100 07/31/22 10:00 103 H 24 147/75 100 07/31/22 09:49 105 H 13 155/87 100 07/31/22 09:21 112 H 22 138/72 100 07/31/22 08:00 103 H 110 H 109 H 19 155/87 100 07/31/22 07:13 98.4 F 07/31/22 07:00 108 H 20 145/73 100 07/31/22 06:00 114 H 99 H 25 H 135/73 100 07/31/22 05:48 105 H 18 100 07/31/22 04:53 89 127/97 100 07/31/22 04:00 98.5 F 102 H 19 127/67 100 07/31/22 03:24 111 H 28 H 100 07/31/22 03:23 111 H 07/31/22 03:00 108 H 26 H 128/71 96 07/31/22 02:00 96 H 27 H 126/76 100 07/31/22 01:00 96 H 24 129/80 100 07/31/22 00:11 91 H 127/78 100 07/31/22 00:02 111 H 29 H 127/78 100 07/31/22 00:00 107 H 31 H 127/78 100 07/30/22 23:10 106 H 07/30/22 23:09 110 H 29 H 100 07/30/22 23:00 98.3 F 103 H 22 104/67 100 07/30/22 22:00 101 H 22 149/65 98 07/30/22 21:00 100 H 24 137/68 98 07/30/22 20:24 113 H 120/67 100 07/30/22 20:00 98.9 F 90 22 120/67 100 07/30/22 19:11 86 93 H 30 H 100 07/30/22 19:00 93 H 20 119/68 07/30/22 18:00 121 H 21 117/65 100 07/30/22 17:00 94 H 25 H 142/73 98 07/30/22 16:25 99.3 F 07/30/22 16:05 99 H 142/73 100 07/30/22 16:00 129 H 122 H 29 H 160/81 99 07/30/22 15:00 107 H 12 158/77 100 07/30/22 14:00 119 H 23 136/76 100 07/30/22 13:00 106 H 15 142/81 100 - Physical Examination General: Other (Intubated) HEENT: Positive: Mucus Membranes Dry Neck: Positive: trachea midline Cardiac: Positive: irregularly irregular Lungs: Positive: Ventilated Respirations Neuro: Positive: Other (Unable to assess) Abdomen: Positive: Soft Skin: Positive: Cool. Negative: Rash, Suspicious Lesions, Ulceration Extremities: Present: upper extr. pulses, Cool, Other (Blisters noted on lower extremities) - Labs and Meds Coagulation 07/31/22 Range/Units 04:13 PT 14.3 (12.2-14.9) Sec. INR 0.97 (0.87-1.13) CBC 07/31/22 Range/Units 04:13 WBC 7.2 (4.5-11.0) K/mm3 RBC 3.71 (3.65-5.03) M/mm3 Hgb 10.5 L (11.8-15.2) gm/dl Hct 32.8 L (35.5-45.6) % Plt Count 55 L (140-440) K/mm3 Comprehensive Metabolic Panel 07/31/22 Range/Units 04:00 Sodium 146 H (137-145) mmol/L Potassium 3.4 L (3.6-5.0) mmol/L Chloride 112.5 H (98-107) mmol/L Carbon Dioxide 21 L (22-30) mmol/L BUN 53 H (9-20) mg/dL Creatinine 1.6 H (0.8-1.3) mg/dL Glucose 151 H (75-100) mg/dL Calcium 6.4 L (8.4-10.2) mg/dL - Imaging and Cardiology EKG: report reviewed, image reviewed Echo: report reviewed - Telemetry EKG Rhythm: Atrial Fibrillation - EKG Supraventricular dysrhythmia: atrial fibrillation
--- NOTE | 2022-07-31 12:47 | Progress Note ---
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 Serum creatinine 1.6 today, yesterdays was 2.0, UOP 2050 ml Renal ultrasound reviewed. No hydronephrosis. Urine lytes reviewed. Has proteinuria likely from uncontrolled DM Sodium level 146 today, yesterday's was 148 Continue on free water flush 150 ml every 4 hours S/P IVF DKA-S/P insulin drip. On SQ inuslin. Hypotension-S/P Norepi drip CXR today- no acute findings Acidosis-to correct with DKA management Obtain daily weights Monitor I/O's daily Avoid nephrotoxic agents Continue to monitor renal function closely No acute indication for ER MANAGER Plan of care reviewed by Dr. Isaacs Subjective Date of service: 07/31/22 Principal diagnosis: Hypernatremia, ARF Interval history: Patient intubated, opens eyes, at bedside Objective - Vital Signs Vital signs: Vital Signs - 12hr 07/31/22 07/31/22 07/31/22 01:00 02:00 03:00 Temperature Pulse Rate 96 H 96 H 108 H Pulse Rate [ From Monitor] Pulse Rate [ Right Radial] Respiratory 24 27 H 26 H Rate Blood Pressure 129/80 126/76 128/71 O2 Sat by Pulse 100 100 96 Oximetry 07/31/22 07/31/22 07/31/22 03:23 03:24 04:00 Temperature 98.5 F Pulse Rate 111 H 102 H Pulse Rate [ 111 H From Monitor] Pulse Rate [ Right Radial] Respiratory 28 H 19 Rate Blood Pressure 127/67 O2 Sat by Pulse 100 100 Oximetry 07/31/22 07/31/22 07/31/22 04:53 05:48 06:00 Temperature Pulse Rate 89 105 H 114 H Pulse Rate [ From Monitor] Pulse Rate [ 99 H Right Radial] Respiratory 18 25 H Rate Blood Pressure 127/97 135/73 O2 Sat by Pulse 100 100 100 Oximetry 07/31/22 07/31/22 07/31/22 07:00 07:13 08:00 Temperature 98.4 F Pulse Rate 108 H 103 H Pulse Rate [ 110 H From Monitor] Pulse Rate [ 109 H Right Radial] Respiratory 20 19 Rate Blood Pressure 145/73 155/87 O2 Sat by Pulse 100 100 Oximetry 07/31/22 07/31/22 07/31/22 09:21 09:49 10:00 Temperature Pulse Rate 105 H 103 H Pulse Rate [ From Monitor] Pulse Rate [ 112 H Right Radial] Respiratory 22 13 24 Rate Blood Pressure 138/72 155/87 147/75 O2 Sat by Pulse 100 100 100 Oximetry 07/31/22 07/31/22 07/31/22 10:45 11:00 11:25 Temperature 99.3 F Pulse Rate 113 H 113 H Pulse Rate [ From Monitor] Pulse Rate [ Right Radial] Respiratory 29 H Rate Blood Pressure 159/84 159/84 O2 Sat by Pulse 100 100 Oximetry 07/31/22 07/31/22 11:53 12:00 Temperature Pulse Rate 98 H 96 H Pulse Rate [ 96 H From Monitor] Pulse Rate [ Right Radial] Respiratory 24 Rate Blood Pressure 132/75 O2 Sat by Pulse 100 Oximetry - General Appearance General appearance: intubated Neck: no JVD Respiratory: Present: Decreased Breath Sounds Cardiology: S1S2 Gastrointestinal: hypoactive bowel sounds Integumentary: warm and dry Neurologic: other (Open eyes, intubated) Musculoskeletal: joint swelling - Lab 07/31/22 04:13 07/31/22 04:00 Most recent lab results ABG pH 7.513 pH Units (7.350-7.450) H 07/31/22 03:25 ABG pCO2 25.7 mm Hg 07/31/22 03:25 ABG pO2 64.1 mm Hg (80.0-90.0) L 07/31/22 03:25 ABG HCO3 20.2 mmol/L (20.0-26.0) 07/31/22 03:25 ABG O2 Saturation 95.4 % (95.0-99.0) 07/31/22 03:25 Calcium 6.4 mg/dL (8.4-10.2) L 07/31/22 04:00 Phosphorus 1.70 mg/dL (2.5-4.5) L 07/30/22 04:42 Magnesium 2.00 mg/dL (1.7-2.3) 07/30/22 04:42 Urine Creatinine 118.4 mg/dL (0.1-20.0) H 07/26/22 18:10 Urine Sodium 108 mmol/L 07/26/22 18:10 Urine Total Protein 146 mg/dL (5-11.8) H 07/26/22 18:10 Medications & Allergies - Medications Allergies/Adverse Reactions: Allergies aspirin Allergy (Verified 02/15/20 13:24) Swelling iron Allergy (Verified 02/15/20 13:24) Itching Home Medications: Home Medications Medication Instructions Recorded Confirmed Last Taken Type metFORMIN [Glucophage] 1,000 mg PO BID 02/11/14 02/15/20 02/14/20 History Acetaminophen [Acetaminophen ER 650 mg PO Q8HR PRN #20 tablet.er 10/21/19 02/15/20 Unknown Rx TAB] ALBUTEROL NEB's [Proventil 0.083% 2.5 mg IH Q3HRT PRN #30 nebu 03/09/20 Unknown Rx NEBS] Aspirin EC [Halfprin EC] 81 mg PO QDAY #30 tablet. 03/09/20 Unknown Rx AtorvaSTATin [Lipitor] 40 mg FEEDTUBE QHS #30 tablet 03/09/20 Unknown Rx Famotidine [Pepcid] 20 mg FEEDTUBE DAILY #30 tablet 03/09/20 Unknown Rx Insulin Glargine [Lantus VIAL] 50 units SUB-Q QAMDIAB #1 vial 03/09/20 Unknown Rx Insulin Glargine [Lantus VIAL] 50 units SUB-Q QHS #1 vial 03/09/20 Unknown Rx Insulin Regular, Human [HumuLIN R] 0 units SUB-Q Q6HR #1 vial 03/09/20 Unknown Rx Metoclopramide [Reglan ORAL LIQ] 5 mg FEEDTUBE Q6H PRN 30 Days 03/09/20 Unknown Rx Metoprolol [Lopressor TAB] 100 mg FEEDTUBE BID #60 tablet 03/09/20 Unknown Rx amLODIPine 10 mg FEEDTUBE QDAY #30 tablet 03/09/20 Unknown Rx traMADoL [Ultram 50 MG tab] 50 mg FEEDTUBE Q6HR PRN #10 tablet 03/09/20 Unknown Rx Active Medications: Generic Name Dose Route Start Last Admin Trade Name Freq PRN Reason Stop Dose Admin Acetaminophen 650 mg 07/26/22 00:31 07/28/22 06:00 Acetaminophen 325 Mg Tab PO 650 mg Q4H PRN Administration Pain MILD(1-3)/Fever >100.5/LANTIGUA Acetaminophen 650 mg 07/26/22 02:04 Acetaminophen 650 Mg Rect Supp CO Q4H PRN Pain, Mild (1-3) Albuterol 2.5 mg 07/26/22 00:31 Albuterol 2.5 Mg/3 Ml Nebu IH Q3HRT PRN Shortness Of Breath Amiodarone HCl 200 mg 07/29/22 15:00 07/31/22 09:32 Amiodarone 200 Mg Tab PO 200 mg BID LIZZIE Administration Atorvastatin Calcium 40 mg 07/26/22 22:00 07/30/22 21:06 Atorvastatin 40 Mg Tab PO 40 mg QHS LIZZIE Administration Dextrose 50 ml 07/27/22 09:25 Dextrose 50% In Water (25gm) 50 Ml Syringe IV Q30MIN PRN Hypoglycemia Protocol Famotidine 10 mg 07/28/22 10:00 07/31/22 10:54 Famotidine 10 Mg Tab FEEDTUBE 10 mg BID LIZZIE Administration Hydrocortisone Sodium Succinate 50 mg 07/31/22 14:00 Hydrocortisone Sod Succ 100 Mg/2 Ml Vial IV Q8HR [facility] Cefepime HCl 2 gm in 100 mls @ 200 mls/hr 07/27/22 11:00 07/31/22 10:54 Cefepime/Ns 2 Gm/100 Ml IV 08/03/22 11:29 200 mls/hr Q24H [facility] Administration Protocol Insulin Glargine 30 units 07/28/22 22:00 07/31/22 09:32 Insulin Glargine 100 Units/Ml SUB-Q 30 units BID LIZZIE Administration Insulin Human Regular 0 units 07/27/22 12:00 07/31/22 12:16 Insulin Regular, Human 100 Units/1 Ml SUB-Q Not Given Q6H [facility] Protocol Multi-Ingred Cream/Lotion/Oil/Oint 1 applic 07/27/22 03:17 07/27/22 03:35 Mineral Oil/Petrolatum, White Ophth Oint 3.5 Gm OU 1 applic PRN PRN Administration Dry Eye(s) Nitroglycerin 0.4 mg 07/26/22 00:31 Nitroglycerin 0.4 Mg Tab Subl SL Q5M PRN Chest Pain Ondansetron HCl 4 mg 07/26/22 00:31 Ondansetron 4 Mg/2 Ml Inj IV Q8H PRN Nausea And Vomiting Potassium Chloride 40 meq 07/31/22 10:00 07/31/22 10:54 Potassium Chloride 20 Meq Packet FEEDTUBE 07/31/22 14:00 40 meq ONCE@1000 LIZZIE Administration Sodium Bicarbonate 650 mg 07/29/22 20:00 07/31/22 09:32 Sodium Bicarbonate 650 Mg Tab PO 650 mg TID LIZZIE Administration Sodium Chloride 10 ml 07/26/22 10:00 07/31/22 09:33 Sodium Chloride 0.9% 10 Ml Flush Syringe IV 10 ml BID LIZZIE Administration Sodium Chloride 10 ml 07/26/22 00:31 Sodium Chloride 0.9% 10 Ml Flush Syringe IV PRN PRN LINE FLUSH
--- NOTE | 2022-07-31 13:53 | Progress Note ---
Assessment and Plan 77 y/o male with cardiac arrest, intubated, not sedated with multisystem organ failure 07/31/22: Supportive care. Surgery consult for trach and peg. Renal function continues to improve. 07/30/22: Continue supportive measures. Family wants aggressive measures despite MRI findings so needs consult to surgery for trach and peg. Will drop steroids down to 25q8 or 50q12 Sunday. Continue volume as renal function is improving. needs more free water if possible. 07/29/22: Drop steroids to 50q8 starting today. CBC not checked, need to evaluate Platelets. Need to correct electrolytes as well. Family is likely going to want trach and peg based on earlier conversations but awaiting more family. Given recent MRI results, prognosis is very poor. 07/28/22: Hold on Volume today. Drop steroids down to 50q8 starting tomorrow. Follow up MRI. EEG results still pending. Platelets still dropping but no evidence of bleeding. Continue abx therapy. Continue feeds. Prognosis is still guarded. 07/27/22: more volume again today. Echo showed normal EF. Wean pressors for MAPs >65, follow up EEg results. Hopeful to get head CT today. Platelets dropped today, not on heparin. Could be sepsis related. If head CT negative, may need to evaluate abdomen around peg. Will start trickle feeds today and transition of insulin drip. Prognosis is still guarded. 1. IVF resusciation with LR 2. Insulin drip and continue NPO state 3. Attempt to wean pressors for MAPs greater than 65 4. Monitor urine output 5. Broaden abx therapy given current clinical state 6. Follow up echo report 7. Agree with stress dose steroids 8. No sedation 9. EEG pending Overall prognosis is guarded to poor, especially given current clinical exam CCT 31 minutes. Subjective Date of service: 07/31/22 Principal diagnosis: Hypernatremia, ARF Interval history: No acute events. Objective Vital Signs - 12hr 07/31/22 07/31/22 07/31/22 02:00 03:00 03:23 Temperature Pulse Rate 96 H 108 H 111 H Pulse Rate [ From Monitor] Pulse Rate [ Right Radial] Respiratory 27 H 26 H Rate Blood Pressure 126/76 128/71 O2 Sat by Pulse 100 96 Oximetry 07/31/22 07/31/22 07/31/22 03:24 04:00 04:53 Temperature 98.5 F Pulse Rate 102 H 89 Pulse Rate [ 111 H From Monitor] Pulse Rate [ Right Radial] Respiratory 28 H 19 Rate Blood Pressure 127/67 127/97 O2 Sat by Pulse 100 100 100 Oximetry 07/31/22 07/31/22 07/31/22 05:48 06:00 07:00 Temperature Pulse Rate 105 H 114 H 108 H Pulse Rate [ From Monitor] Pulse Rate [ 99 H Right Radial] Respiratory 18 25 H 20 Rate Blood Pressure 135/73 145/73 O2 Sat by Pulse 100 100 100 Oximetry 07/31/22 07/31/22 07/31/22 07:13 08:00 09:21 Temperature 98.4 F Pulse Rate 103 H Pulse Rate [ 110 H From Monitor] Pulse Rate [ 109 H 112 H Right Radial] Respiratory 19 22 Rate Blood Pressure 155/87 138/72 O2 Sat by Pulse 100 100 Oximetry 07/31/22 07/31/22 07/31/22 09:49 10:00 10:45 Temperature Pulse Rate 105 H 103 H 113 H Pulse Rate [ From Monitor] Pulse Rate [ Right Radial] Respiratory 13 24 Rate Blood Pressure 155/87 147/75 159/84 O2 Sat by Pulse 100 100 100 Oximetry 07/31/22 07/31/22 07/31/22 11:00 11:25 11:53 Temperature 99.3 F Pulse Rate 113 H 98 H Pulse Rate [ From Monitor] Pulse Rate [ Right Radial] Respiratory 29 H Rate Blood Pressure 159/84 O2 Sat by Pulse 100 Oximetry 07/31/22 07/31/22 12:00 13:00 Temperature Pulse Rate 96 H 99 H Pulse Rate [ 96 H From Monitor] Pulse Rate [ Right Radial] Respiratory 24 27 H Rate Blood Pressure 132/75 147/75 O2 Sat by Pulse 100 99 Oximetry CBC and BMP: 07/31/22 04:13 07/31/22 04:00 ABG, PT/INR, D-dimer: ABG ABG pH 7.513 pH Units (7.350-7.450) H 07/31/22 03:25 ABG pCO2 25.7 mm Hg 07/31/22 03:25 ABG pO2 64.1 mm Hg (80.0-90.0) L 07/31/22 03:25 ABG O2 Saturation 95.4 % (95.0-99.0) 07/31/22 03:25 PT/INR, D-dimer PT 14.3 Sec. (12.2-14.9) 07/31/22 04:13 INR 0.97 (0.87-1.13) 07/31/22 04:13 Abnormal lab findings: Abnormal Labs 07/25/22 07/25/22 07/25/22 19:37 19:37 19:37 WBC 18.8 H RBC 6.31 H Hgb 18.8 H Hct 57.3 H MCV MCHC RDW Plt Count [place] # (Auto) 1.4 H Seg Neutrophils % 70.7 H Seg Neuts % (Manual) Lymphocytes % (Manual) Seg Neutrophils # 13.3 H Seg Neutrophils # Man Lymphocytes # (Manual) ABG pH ABG pO2 ABG HCO3 ABG O2 Saturation ABG Base Excess ABG Hemoglobin Oxyhemoglobin Sodium 149 H Potassium Chloride 110.3 H Carbon Dioxide 18 L BUN 73 H Creatinine 3.3 H Glucose 761 H* POC Glucose Hemoglobin A1c Lactic Acid Calcium 10.6 H Phosphorus Magnesium 3.10 H AST 63 H ALT 64 H Ammonia Troponin T 0.072 H Total Protein 9.0 H Albumin Triglycerides 362 H LDL Cholesterol Direct 44 L HDL Cholesterol 34 L Urine Creatinine Urine Total Protein 07/25/22 07/25/22 07/25/22 19:37 21:08 22:10 WBC RBC Hgb Hct MCV MCHC RDW Plt Count [place] # (Auto) Seg Neutrophils % Seg Neuts % (Manual) Lymphocytes % (Manual) Seg Neutrophils # Seg Neutrophils # Man Lymphocytes # (Manual) ABG pH ABG pO2 ABG HCO3 ABG O2 Saturation ABG Base Excess ABG Hemoglobin Oxyhemoglobin Sodium 155 H Potassium Chloride 113.1 H Carbon Dioxide 14 L BUN 74 H Creatinine 3.5 H Glucose 734 H* POC Glucose Hemoglobin A1c Lactic Acid 12.70 H* Calcium Phosphorus Magnesium AST ALT Ammonia 64.0 H Troponin T Total Protein Albumin Triglycerides LDL Cholesterol Direct HDL Cholesterol Urine Creatinine Urine Total Protein 07/25/22 07/25/22 07/26/22 22:20 23:29 00:13 WBC RBC Hgb Hct MCV MCHC RDW Plt Count [place] # (Auto) Seg Neutrophils % Seg Neuts % (Manual) Lymphocytes % (Manual) Seg Neutrophils # Seg Neutrophils # Man Lymphocytes # (Manual) ABG pH 7.342 L ABG pO2 318.2 H ABG HCO3 14.4 L ABG O2 Saturation 99.5 H ABG Base Excess -9.4 L ABG Hemoglobin Oxyhemoglobin Sodium 157 H Potassium 3.1 L D Chloride 114.0 H Carbon Dioxide 21 L D BUN 72 H Creatinine 3.7 H Glucose 615 H* POC Glucose > 600 H Hemoglobin A1c Lactic Acid Calcium Phosphorus Magnesium AST ALT Ammonia Troponin T Total Protein Albumin Triglycerides LDL Cholesterol Direct HDL Cholesterol Urine Creatinine Urine Total Protein 07/26/22 07/26/22 07/26/22 00:13 00:38 00:39 WBC 21.4 H RBC 5.88 H Hgb 17.2 H Hct 55.0 H MCV MCHC 31 L RDW 16.0 H Plt Count [place] # (Auto) Seg Neutrophils % Seg Neuts % (Manual) 77.0 H Lymphocytes % (Manual) 13.0 L Seg Neutrophils # Seg Neutrophils # Man 16.5 H Lymphocytes # (Manual) ABG pH ABG pO2 ABG HCO3 ABG O2 Saturation ABG Base Excess ABG Hemoglobin Oxyhemoglobin Sodium Potassium Chloride Carbon Dioxide BUN Creatinine Glucose POC Glucose 517 H Hemoglobin A1c Lactic Acid 9.10 H* Calcium Phosphorus Magnesium AST ALT Ammonia Troponin T Total Protein Albumin Triglycerides LDL Cholesterol Direct HDL Cholesterol Urine Creatinine Urine Total Protein 07/26/22 07/26/22 07/26/22 00:39 01:32 02:28 WBC RBC Hgb Hct MCV MCHC RDW Plt Count [place] # (Auto) Seg Neutrophils % Seg Neuts % (Manual) Lymphocytes % (Manual) Seg Neutrophils # Seg Neutrophils # Man Lymphocytes # (Manual) ABG pH ABG pO2 ABG HCO3 ABG O2 Saturation ABG Base Excess ABG Hemoglobin Oxyhemoglobin Sodium Potassium Chloride Carbon Dioxide BUN Creatinine Glucose POC Glucose 460 H 237 H Hemoglobin A1c Lactic Acid Calcium Phosphorus 1.20 L D Magnesium 4.10 H AST ALT Ammonia Troponin T Total Protein Albumin Triglycerides LDL Cholesterol Direct HDL Cholesterol Urine Creatinine Urine Total Protein 07/26/22 07/26/22 07/26/22 03:03 03:07 04:11 WBC RBC Hgb Hct MCV MCHC RDW Plt Count [place] # (Auto) Seg Neutrophils % Seg Neuts % (Manual) Lymphocytes % (Manual) Seg Neutrophils # Seg Neutrophils # Man Lymphocytes # (Manual) ABG pH ABG pO2 ABG HCO3 ABG O2 Saturation ABG Base Excess ABG Hemoglobin Oxyhemoglobin Sodium Potassium Chloride Carbon Dioxide BUN Creatinine Glucose POC Glucose 433 H 370 H 338 H Hemoglobin A1c Lactic Acid Calcium Phosphorus Magnesium AST ALT Ammonia Troponin T Total Protein Albumin Triglycerides LDL Cholesterol Direct HDL Cholesterol Urine Creatinine Urine Total Protein 07/26/22 07/26/22 07/26/22 04:35 04:35 04:40 WBC RBC Hgb Hct MCV MCHC RDW Plt Count [place] # (Auto) Seg Neutrophils % Seg Neuts % (Manual) Lymphocytes % (Manual) Seg Neutrophils # Seg Neutrophils # Man Lymphocytes # (Manual) ABG pH 7.301 L ABG pO2 178.2 H ABG HCO3 11.0 L ABG O2 Saturation 99.1 H ABG Base Excess -13.3 L ABG Hemoglobin Oxyhemoglobin Sodium 162 H* Potassium 3.0 L Chloride 124.8 H Carbon Dioxide 18 L BUN 69 H Creatinine 3.9 H Glucose 385 H POC Glucose Hemoglobin A1c Lactic Acid 8.20 H* Calcium 7.8 L Phosphorus Magnesium AST ALT Ammonia Troponin T Total Protein Albumin Triglycerides LDL Cholesterol Direct HDL Cholesterol Urine Creatinine Urine Total Protein 07/26/22 07/26/22 07/26/22 05:01 06:14 06:52 WBC RBC Hgb Hct MCV MCHC RDW Plt Count [place] # (Auto) Seg Neutrophils % Seg Neuts % (Manual) Lymphocytes % (Manual) Seg Neutrophils # Seg Neutrophils # Man Lymphocytes # (Manual) ABG pH ABG pO2 ABG HCO3 ABG O2 Saturation ABG Base Excess ABG Hemoglobin Oxyhemoglobin Sodium Potassium Chloride Carbon Dioxide BUN Creatinine Glucose POC Glucose 347 H 300 H 278 H Hemoglobin A1c Lactic Acid Calcium Phosphorus Magnesium AST ALT Ammonia Troponin T Total Protein Albumin Triglycerides LDL Cholesterol Direct HDL Cholesterol Urine Creatinine Urine Total Protein 07/26/22 07/26/22 07/26/22 07:59 08:58 10:04 WBC RBC Hgb Hct MCV MCHC RDW Plt Count [place] # (Auto) Seg Neutrophils % Seg Neuts % (Manual) Lymphocytes % (Manual) Seg Neutrophils # Seg Neutrophils # Man Lymphocytes # (Manual) ABG pH ABG pO2 ABG HCO3 ABG O2 Saturation ABG Base Excess ABG Hemoglobin Oxyhemoglobin Sodium Potassium Chloride Carbon Dioxide BUN Creatinine Glucose POC Glucose 269 H 277 H 244 H Hemoglobin A1c Lactic Acid Calcium Phosphorus Magnesium AST ALT Ammonia Troponin T Total Protein Albumin Triglycerides LDL Cholesterol Direct HDL Cholesterol Urine Creatinine Urine Total Protein 07/26/22 07/26/22 07/26/22 11:03 11:53 13:08 WBC RBC Hgb Hct MCV MCHC RDW Plt Count [place] # (Auto) Seg Neutrophils % Seg Neuts % (Manual) Lymphocytes % (Manual) Seg Neutrophils # Seg Neutrophils # Man Lymphocytes # (Manual) ABG pH ABG pO2 ABG HCO3 ABG O2 Saturation ABG Base Excess ABG Hemoglobin Oxyhemoglobin Sodium Potassium Chloride Carbon Dioxide BUN Creatinine Glucose POC Glucose 253 H 213 H 194 H Hemoglobin A1c Lactic Acid Calcium Phosphorus Magnesium AST ALT Ammonia Troponin T Total Protein Albumin Triglycerides LDL Cholesterol Direct HDL Cholesterol Urine Creatinine Urine Total Protein 07/26/22 07/26/22 07/26/22 14:24 14:56 14:57 WBC RBC Hgb Hct MCV MCHC RDW Plt Count [place] # (Auto) Seg Neutrophils % Seg Neuts % (Manual) Lymphocytes % (Manual) Seg Neutrophils # Seg Neutrophils # Man Lymphocytes # (Manual) ABG pH ABG pO2 ABG HCO3 ABG O2 Saturation ABG Base Excess ABG Hemoglobin Oxyhemoglobin Sodium Potassium Chloride Carbon Dioxide BUN Creatinine Glucose POC Glucose 185 H 236 H 207 H Hemoglobin A1c Lactic Acid Calcium Phosphorus Magnesium AST ALT Ammonia Troponin T Total Protein Albumin Triglycerides LDL Cholesterol Direct HDL Cholesterol Urine Creatinine Urine Total Protein 07/26/22 07/26/22 07/26/22 15:36 15:36 15:36 WBC RBC Hgb Hct MCV MCHC RDW Plt Count [place] # (Auto) Seg Neutrophils % Seg Neuts % (Manual) Lymphocytes % (Manual) Seg Neutrophils # Seg Neutrophils # Man Lymphocytes # (Manual) ABG pH ABG pO2 ABG HCO3 ABG O2 Saturation ABG Base Excess ABG Hemoglobin Oxyhemoglobin Sodium 160 H Potassium Chloride 126.2 H Carbon Dioxide 18 L BUN 59 H Creatinine 3.2 H Glucose 227 H POC Glucose Hemoglobin A1c Lactic Acid 9.70 H* Calcium 7.1 L Phosphorus Magnesium AST ALT Ammonia Troponin T 0.049 H D Total Protein Albumin Triglycerides LDL Cholesterol Direct HDL Cholesterol Urine Creatinine Urine Total Protein 07/26/22 07/26/22 07/26/22 15:57 16:32 17:04 WBC RBC Hgb Hct MCV MCHC RDW Plt Count [place] # (Auto) Seg Neutrophils % Seg Neuts % (Manual) Lymphocytes % (Manual) Seg Neutrophils # Seg Neutrophils # Man Lymphocytes # (Manual) ABG pH ABG pO2 ABG HCO3 ABG O2 Saturation ABG Base Excess ABG Hemoglobin Oxyhemoglobin Sodium Potassium Chloride Carbon Dioxide BUN Creatinine Glucose POC Glucose 207 H 189 H 219 H Hemoglobin A1c Lactic Acid Calcium Phosphorus Magnesium AST ALT Ammonia Troponin T Total Protein Albumin Triglycerides LDL Cholesterol Direct HDL Cholesterol Urine Creatinine Urine Total Protein 07/26/22 07/26/22 07/26/22 18:00 18:10 18:52 WBC RBC Hgb Hct MCV MCHC RDW Plt Count [place] # (Auto) Seg Neutrophils % Seg Neuts % (Manual) Lymphocytes % (Manual) Seg Neutrophils # Seg Neutrophils # Man Lymphocytes # (Manual) ABG pH ABG pO2 ABG HCO3 ABG O2 Saturation ABG Base Excess ABG Hemoglobin Oxyhemoglobin Sodium Potassium Chloride Carbon Dioxide BUN Creatinine Glucose POC Glucose 197 H 194 H Hemoglobin A1c Lactic Acid Calcium Phosphorus Magnesium AST ALT Ammonia Troponin T Total Protein Albumin Triglycerides LDL Cholesterol Direct HDL Cholesterol Urine Creatinine 118.4 H Urine Total Protein 146 H 07/26/22 07/26/22 07/26/22 20:47 21:30 21:51 WBC RBC Hgb Hct MCV MCHC RDW Plt Count [place] # (Auto) Seg Neutrophils % Seg Neuts % (Manual) Lymphocytes % (Manual) Seg Neutrophils # Seg Neutrophils # Man Lymphocytes # (Manual) ABG pH ABG pO2 ABG HCO3 ABG O2 Saturation ABG Base Excess ABG Hemoglobin Oxyhemoglobin Sodium 155 H Potassium Chloride 123.5 H Carbon Dioxide 16 L BUN 53 H Creatinine 2.9 H Glucose 185 H POC Glucose 134 H 124 H Hemoglobin A1c Lactic Acid Calcium 7.0 L Phosphorus Magnesium AST ALT Ammonia Troponin T Total Protein Albumin Triglycerides LDL Cholesterol Direct HDL Cholesterol Urine Creatinine Urine Total Protein 07/26/22 07/26/22 07/27/22 22:47 23:52 00:45 WBC RBC Hgb Hct MCV MCHC RDW Plt Count [place] # (Auto) Seg Neutrophils % Seg Neuts % (Manual) Lymphocytes % (Manual) Seg Neutrophils # Seg Neutrophils # Man Lymphocytes # (Manual) ABG pH ABG pO2 ABG HCO3 ABG O2 Saturation ABG Base Excess ABG Hemoglobin Oxyhemoglobin Sodium 155 H Potassium Chloride 124.2 H Carbon Dioxide 19 L BUN 53 H Creatinine 2.5 H Glucose 168 H POC Glucose 138 H 150 H Hemoglobin A1c Lactic Acid Calcium 6.7 L Phosphorus Magnesium AST ALT Ammonia Troponin T Total Protein Albumin Triglycerides LDL Cholesterol Direct HDL Cholesterol Urine Creatinine Urine Total Protein 07/27/22 07/27/22 07/27/22 00:58 02:45 03:50 WBC 15.4 H RBC Hgb Hct MCV MCHC RDW 15.3 H Plt Count 60 L [place] # (Auto) Seg Neutrophils % Seg Neuts % (Manual) 78.0 H Lymphocytes % (Manual) 3.0 L Seg Neutrophils # Seg Neutrophils # Man 12.0 H Lymphocytes # (Manual) 0.5 L ABG pH ABG pO2 ABG HCO3 ABG O2 Saturation ABG Base Excess ABG Hemoglobin Oxyhemoglobin Sodium Potassium Chloride Carbon Dioxide BUN Creatinine Glucose POC Glucose 153 H 150 H Hemoglobin A1c Lactic Acid Calcium Phosphorus Magnesium AST ALT Ammonia Troponin T Total Protein Albumin Triglycerides LDL Cholesterol Direct HDL Cholesterol Urine Creatinine Urine Total Protein 07/27/22 07/27/22 07/27/22 03:50 03:55 04:57 WBC RBC Hgb Hct MCV MCHC RDW Plt Count [place] # (Auto) Seg Neutrophils % Seg Neuts % (Manual) Lymphocytes % (Manual) Seg Neutrophils # Seg Neutrophils # Man Lymphocytes # (Manual) ABG pH ABG pO2 110.1 H ABG HCO3 13.3 L ABG O2 Saturation ABG Base Excess -9.0 L ABG Hemoglobin 13.1 L Oxyhemoglobin Sodium 154 H Potassium Chloride 123.0 H Carbon Dioxide 19 L BUN 55 H Creatinine 2.8 H Glucose 153 H POC Glucose 112 H Hemoglobin A1c Lactic Acid Calcium 6.8 L Phosphorus 1.30 L Magnesium AST 64 H ALT Ammonia Troponin T Total Protein 4.1 L D Albumin 2.1 L Triglycerides LDL Cholesterol Direct HDL Cholesterol Urine Creatinine Urine Total Protein 07/27/22 07/27/22 07/27/22 08:22 09:30 10:49 WBC RBC Hgb Hct MCV MCHC RDW Plt Count [place] # (Auto) Seg Neutrophils % Seg Neuts % (Manual) Lymphocytes % (Manual) Seg Neutrophils # Seg Neutrophils # Man Lymphocytes # (Manual) ABG pH ABG pO2 ABG HCO3 ABG O2 Saturation ABG Base Excess ABG Hemoglobin Oxyhemoglobin Sodium Potassium Chloride Carbon Dioxide BUN Creatinine Glucose POC Glucose 146 H 153 H 163 H Hemoglobin A1c Lactic Acid Calcium Phosphorus Magnesium AST ALT Ammonia Troponin T Total Protein Albumin Triglycerides LDL Cholesterol Direct HDL Cholesterol Urine Creatinine Urine Total Protein 07/27/22 07/27/22 07/27/22 12:13 12:44 17:17 WBC RBC Hgb Hct MCV MCHC RDW Plt Count [place] # (Auto) Seg Neutrophils % Seg Neuts % (Manual) Lymphocytes % (Manual) Seg Neutrophils # Seg Neutrophils # Man Lymphocytes # (Manual) ABG pH ABG pO2 ABG HCO3 ABG O2 Saturation ABG Base Excess ABG Hemoglobin Oxyhemoglobin Sodium Potassium Chloride Carbon Dioxide BUN Creatinine Glucose POC Glucose 190 H 287 H Hemoglobin A1c 12.3 H Lactic Acid Calcium Phosphorus Magnesium AST ALT Ammonia Troponin T Total Protein Albumin Triglycerides LDL Cholesterol Direct HDL Cholesterol Urine Creatinine Urine Total Protein 07/28/22 07/28/22 07/28/22 00:22 03:58 04:05 WBC RBC Hgb Hct MCV MCHC RDW Plt Count [place] # (Auto) Seg Neutrophils % Seg Neuts % (Manual) Lymphocytes % (Manual) Seg Neutrophils # Seg Neutrophils # Man Lymphocytes # (Manual) ABG pH ABG pO2 171.2 H ABG HCO3 12.3 L ABG O2 Saturation 99.2 H ABG Base Excess -9.7 L ABG Hemoglobin 10.9 L Oxyhemoglobin Sodium 148 H Potassium Chloride 117.0 H Carbon Dioxide 16 L BUN 74 H Creatinine 3.2 H Glucose 471 H POC Glucose 379 H Hemoglobin A1c Lactic Acid Calcium 6.2 L Phosphorus Magnesium AST ALT Ammonia Troponin T Total Protein Albumin Triglycerides LDL Cholesterol Direct HDL Cholesterol Urine Creatinine Urine Total Protein 07/28/22 07/28/22 07/28/22 04:05 05:36 12:50 WBC 13.9 H RBC Hgb 11.2 L Hct MCV MCHC 31 L RDW 15.9 H Plt Count 48 L [place] # (Auto) Seg Neutrophils % Seg Neuts % (Manual) Lymphocytes % (Manual) Seg Neutrophils # Seg Neutrophils # Man Lymphocytes # (Manual) ABG pH ABG pO2 ABG HCO3 ABG O2 Saturation ABG Base Excess ABG Hemoglobin Oxyhemoglobin Sodium Potassium Chloride Carbon Dioxide BUN Creatinine Glucose POC Glucose 390 H 399 H Hemoglobin A1c Lactic Acid Calcium Phosphorus Magnesium AST ALT Ammonia Troponin T Total Protein Albumin Triglycerides LDL Cholesterol Direct HDL Cholesterol Urine Creatinine Urine Total Protein 07/28/22 07/28/22 07/28/22 17:27 18:16 23:31 WBC RBC Hgb Hct MCV MCHC RDW Plt Count [place] # (Auto) Seg Neutrophils % Seg Neuts % (Manual) Lymphocytes % (Manual) Seg Neutrophils # Seg Neutrophils # Man Lymphocytes # (Manual) ABG pH ABG pO2 ABG HCO3 ABG O2 Saturation ABG Base Excess ABG Hemoglobin Oxyhemoglobin Sodium Potassium Chloride Carbon Dioxide BUN Creatinine Glucose POC Glucose 434 H 331 H Hemoglobin A1c Lactic Acid Calcium Phosphorus 2.00 L D Magnesium AST ALT Ammonia Troponin T Total Protein Albumin Triglycerides LDL Cholesterol Direct HDL Cholesterol Urine Creatinine Urine Total Protein 07/29/22 07/29/22 07/29/22 04:47 05:30 06:10 WBC RBC Hgb Hct MCV MCHC RDW Plt Count [place] # (Auto) Seg Neutrophils % Seg Neuts % (Manual) Lymphocytes % (Manual) Seg Neutrophils # Seg Neutrophils # Man Lymphocytes # (Manual) ABG pH 7.498 H ABG pO2 166.4 H ABG HCO3 16.2 L ABG O2 Saturation 99.1 H ABG Base Excess -5.4 L ABG Hemoglobin 10.7 L Oxyhemoglobin Sodium 151 H Potassium 3.5 L D Chloride 120.4 H Carbon Dioxide 17 L BUN 80 H Creatinine 2.8 H Glucose 303 H POC Glucose 261 H Hemoglobin A1c Lactic Acid Calcium 6.9 L Phosphorus Magnesium AST ALT Ammonia Troponin T Total Protein Albumin Triglycerides LDL Cholesterol Direct HDL Cholesterol Urine Creatinine Urine Total Protein 07/29/22 07/29/22 07/29/22 09:18 12:31 13:40 WBC 16.0 H RBC Hgb Hct MCV 96 H MCHC 30 L RDW 17.6 H Plt Count 84 L [place] # (Auto) Seg Neutrophils % Seg Neuts % (Manual) Lymphocytes % (Manual) Seg Neutrophils # Seg Neutrophils # Man Lymphocytes # (Manual) ABG pH ABG pO2 ABG HCO3 ABG O2 Saturation ABG Base Excess ABG Hemoglobin Oxyhemoglobin Sodium Potassium Chloride Carbon Dioxide BUN Creatinine Glucose POC Glucose 287 H 291 H Hemoglobin A1c Lactic Acid Calcium Phosphorus Magnesium AST ALT Ammonia Troponin T Total Protein Albumin Triglycerides LDL Cholesterol Direct HDL Cholesterol Urine Creatinine Urine Total Protein 07/29/22 07/29/22 07/30/22 17:19 23:57 04:25 WBC RBC Hgb Hct MCV MCHC RDW Plt Count [place] # (Auto) Seg Neutrophils % Seg Neuts % (Manual) Lymphocytes % (Manual) Seg Neutrophils # Seg Neutrophils # Man Lymphocytes # (Manual) ABG pH 7.461 H ABG pO2 123.0 H ABG HCO3 18.6 L ABG O2 Saturation ABG Base Excess -4.1 L ABG Hemoglobin 10.8 L Oxyhemoglobin Sodium Potassium Chloride Carbon Dioxide BUN Creatinine Glucose POC Glucose 272 H 205 H Hemoglobin A1c Lactic Acid Calcium Phosphorus Magnesium AST ALT Ammonia Troponin T Total Protein Albumin Triglycerides LDL Cholesterol Direct HDL Cholesterol Urine Creatinine Urine Total Protein 07/30/22 07/30/22 07/30/22 04:42 04:42 05:17 WBC RBC Hgb 11.1 L Hct 33.1 L D MCV MCHC RDW 16.0 H Plt Count 34 L [place] # (Auto) Seg Neutrophils % Seg Neuts % (Manual) Lymphocytes % (Manual) Seg Neutrophils # Seg Neutrophils # Man Lymphocytes # (Manual) ABG pH ABG pO2 ABG HCO3 ABG O2 Saturation ABG Base Excess ABG Hemoglobin Oxyhemoglobin Sodium 148 H Potassium 3.2 L Chloride 116.7 H Carbon Dioxide 18 L BUN 69 H Creatinine 2.0 H Glucose 197 H POC Glucose 185 H Hemoglobin A1c Lactic Acid Calcium 6.8 L Phosphorus 1.70 L Magnesium AST ALT Ammonia Troponin T Total Protein Albumin Triglycerides LDL Cholesterol Direct HDL Cholesterol Urine Creatinine Urine Total Protein 07/30/22 07/30/22 07/30/22 11:41 16:14 23:07 WBC RBC Hgb Hct MCV MCHC RDW Plt Count [place] # (Auto) Seg Neutrophils % Seg Neuts % (Manual) Lymphocytes % (Manual) Seg Neutrophils # Seg Neutrophils # Man Lymphocytes # (Manual) ABG pH ABG pO2 ABG HCO3 ABG O2 Saturation ABG Base Excess ABG Hemoglobin Oxyhemoglobin Sodium Potassium Chloride Carbon Dioxide BUN Creatinine Glucose POC Glucose 199 H 173 H 159 H Hemoglobin A1c Lactic Acid Calcium Phosphorus Magnesium AST ALT Ammonia Troponin T Total Protein Albumin Triglycerides LDL Cholesterol Direct HDL Cholesterol Urine Creatinine Urine Total Protein 07/31/22 07/31/22 07/31/22 03:25 04:00 04:13 WBC RBC Hgb 10.5 L Hct 32.8 L MCV MCHC RDW 15.3 H Plt Count 55 L [place] # (Auto) Seg Neutrophils % Seg Neuts % (Manual) Lymphocytes % (Manual) Seg Neutrophils # Seg Neutrophils # Man Lymphocytes # (Manual) ABG pH 7.513 H ABG pO2 64.1 L ABG HCO3 ABG O2 Saturation ABG Base Excess ABG Hemoglobin 10.5 L Oxyhemoglobin 93.8 L Sodium 146 H Potassium 3.4 L Chloride 112.5 H Carbon Dioxide 21 L BUN 53 H Creatinine 1.6 H Glucose 151 H POC Glucose Hemoglobin A1c Lactic Acid Calcium 6.4 L Phosphorus Magnesium AST ALT Ammonia Troponin T Total Protein Albumin Triglycerides LDL Cholesterol Direct HDL Cholesterol Urine Creatinine Urine Total Protein 07/31/22 05:39 WBC RBC Hgb Hct MCV MCHC RDW Plt Count [place] # (Auto) Seg Neutrophils % Seg Neuts % (Manual) Lymphocytes % (Manual) Seg Neutrophils # Seg Neutrophils # Man Lymphocytes # (Manual) ABG pH ABG pO2 ABG HCO3 ABG O2 Saturation ABG Base Excess ABG Hemoglobin Oxyhemoglobin Sodium Potassium Chloride Carbon Dioxide BUN Creatinine Glucose POC Glucose 155 H Hemoglobin A1c Lactic Acid Calcium Phosphorus Magnesium AST ALT Ammonia Troponin T Total Protein Albumin Triglycerides LDL Cholesterol Direct HDL Cholesterol Urine Creatinine Urine Total Protein
--- NOTE | 2022-07-31 18:27 | Progress Note ---
Assessment and Plan Assessment and plan: This is a 77-year-old male from a SNF facility with known past medical history of DM, paroxysmal atrial fibrillation, HTN, and CVA (2020) initially presented with AMS and Hyperglycemia. While in the ED, patient became obtunded with hypoxia and was intubated for airway protection. Post intubation patient PEA arrested and ROSC was achieved after approximately 13 minutes. Hospital Course to Date: 07/26: Patient is on any sedation, very sluggish pupillary response, no cough/gag noted, no seizure activity. Neurology recs repeat CT head without contrast or MRI brain without contrast when clinically stable. Patient also had a EEG completed today. Patient is currently maxed on Levophed and vasopressin. Given several LR boluses today. Antibiotics broadened and stress dose steroids added. 07/27: Weaning pressors, phosphorus repleted, SSI and long-acting insulin initiated, tube feeding initiated. Patient now has a hypoactive cough/gag. CT head pending. LR bolus. Thrombocytopenia noted. Cardiology would like to start heparin drip due to atrial fibrillation however would like neurology input prior to. 07/28: Patient remains off of vasopressors, patient had MRI today. Worsening renal function noted. Cardiology will hold off amiodarone due to thrombocytopenia. No acute events reported overnight. 07/29: I had an extensive conversation with son and at bedside to with the help of an interpreter for the deaf through the bench assembler battery line. Explained thoroughly of presentation to the ED from documentation, cardiac arrest, CT head and MRI brain findings. They are still electing to continue aggressive care and would like hospital assistance with getting a visa for youngest son to come to the [facility] from [place]. manager spanish is aware of request. Steroid taper started. CBC pending. Will be repleted. Hypernatremia improving. 07/30: LR bolus, renal function is improved, thrombocytopenia worse. Likely consult surgery for trach/peg as per family requests to continue care. No acute events overnight. 07/31: Patient's mentation is unchanged. Remains on low vent setting. D/w [facility] general surgery consulted for possible trach and PEG. Renal function is improvi ng, still hypenatremic, continue FWF per Nephrology. K repleted, continue to - Monitor and replace electrolytes as needed. Patient remains in SR on the monitor, VSS. Amiodarone gtt transitioned to PO amio per Cardio. Neuro: Acute metabolic encephalopathy, hepatic encephalopathy, r/o ALEC and subclinical status epilepticus, h/o CVA (2019) -Sluggish pupils, no cough/gag, periodic spontaneous respiration -Neurology consulted, appreciate recommendations -Initial CT head with no acute abnormality -Repeat CT head without contrast of preferably MRI brain without contrast when clinically stable -EEG completed -Per neurology aim for euglycemia and permissive hypertension for now -Ammonia 64 -MRI brain shows diffuse diffusion abnormality involving cerebral and cerebellum compatible with diffuse hypoxia given the patient's history, interval evolving of left 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 Cardiac: S/p cardiac arrest, A. fib RVR, h/o hypertension, paroxysmal atrial fibrillation, hyperlipidemia -Patient suffered cardiac arrest on 07/25 in the ED and then was noted to be in A. fib with RVR -Amiodarone PO -Cardiology consulted, appreciate recommendations -Blood pressure monitoring per protocol -S/p vasopressor support with Levophed and vasopressin -MAP goal greater than 65 -Echocardiogram shows EF 50 to 60%, no pericardial effusion -Lipitor Respiratory: Acute hypoxic respiratory failure -CCM consulted, appreciate recommendations -Intubated on 07/25 with a 8.00 ETT in the ED -A.m. vent settings: Assist-control rate 20, tidal volume 450, PEEP 6, FiO2 30% -See RT notes for titration -A.m. ABG and CXR noted -VAP bundle -SPO2 monitoring -General Surgery consulted for possible Trach/PEg GI: Protein calorie malnutrition -Enteral Nutrition initiated -NTR consult for tube feeding -PPI : Hypernatremia, metabolic acidosis, acute kidney injury likely secondary to vasomotor nephropathy, hypokalemia, hypophosphatemia -S/p 4 L LR bolus -Nephrology consulted, appreciate recommendations -Serum creatinine 03/08/2020 was 1.3, Scr. 16 today -Monitor intake and output -Renally dose medications -Avoid nephrotoxic medications -FWF 250ml q 4 hr per nephro -Renal ultrasound noted -KPhos IV -Trend BMP ID: Sepsis, Klebsiella pneumonia -Hypotension, acute kidney injury, acute respiratory failure, lactic acidosis -Antibiotic therapy with cefepime -Solu-Cortef tapering -f/u blood culture -Monitor WBC and temperature curve Endo: h/o DM s/p DKA -Presented with anion gap of 21, glucose of 761, VBG 7.362 -s/p Insulin drip -Accu-Cheks q6hr -SSI -Long-acting insulin when able -Hemaglobin A1C 12.3 Heme: Thrombocytopenia -Dropped in plt -Hematology consulted -HIT panel pending -Trend CBC -Transfuse hemoglobin less than 7 -SCDs to BLE while in bed The high probability of a clinically significant, sudden or life threatening deterioration of the [multi] system(s) required my full and direct attention, intervention and personal management. The aggregate critical care time was [60] minutes. This time is in addition to time spent performing reported procedures but includes the following: [x] Data Review and interpretation [x] Patient assessment and monitoring of vital signs [x] Documentation [x] Medication orders and management Disposition Plan: ICU Total Time Spent with Patient (Minutes): 60 History Interval history: Patient seen and examined at the bedside. Remains on the vent, unresponsive, not on any sedations. In SR on the monitor, VSS. VALVERDE overnight Hospitalist Physical - Constitutional Vitals: Temp Pulse Resp BP Pulse Ox 98.8 F 94 H 30 H 142/82 93 07/31/22 16:00 07/31/22 18:01 07/31/22 18:01 07/31/22 18:01 07/31/22 18:01 General appearance: Present: other (Intubated and unresponsive) - EENT Eyes: Present: irregular pupil, mydriasis - Respiratory Respiratory effort: normal Respiratory: bilateral: rhonchi - Cardiovascular Rhythm: regular Heart Sounds: Present: S1 & S2 - Extremities Extremities: no ischemia, pulses intact, pulses symmetrical Extremity abnormal: edema - Peripheral Assessment Generalized Edema Type: Non-pitting Edema Degree: 2+ Capillary Refill: < 3 seconds Skin Temperature: Warm Peripheral Pulses: within normal limits - Abdominal General gastrointestinal: soft, non-distended, normal bowel sounds - Integumentary Integumentary: Present: warm, dry - Psychiatric Psychiatric: other (Intubated and unresponsive) - Neurologic Neurologic: other (Intubated and unresponsive) - Allied Health Allied health notes reviewed: nursing, case management HEART Score - HEART Score Troponin: Troponin T 0.049 ng/mL (0.00-0.029) H D 07/26/22 15:36 Results - Labs CBC & Chem 7: 08/01/22 04:17 08/01/22 04:17 Labs: Laboratory Last Values WBC 7.2 K/mm3 (4.5-11.0) 07/31/22 04:13 RBC 3.71 M/mm3 (3.65-5.03) 07/31/22 04:13 Hgb 10.5 gm/dl (11.8-15.2) L 07/31/22 04:13 Hct 32.8 % (35.5-45.6) L 07/31/22 04:13 MCV 88 fl (84-94) 07/31/22 04:13 MCH 28 pg (28-32) 07/31/22 04:13 MCHC 32 % (32-34) 07/31/22 04:13 RDW 15.3 % (13.2-15.2) H 07/31/22 04:13 Plt Count 55 K/mm3 (140-440) L 07/31/22 04:13 Lymph % (Auto) 21.7 % (13.4-35.0) 07/25/22 19:37 [place] % (Auto) 7.3 % (0.0-7.3) 07/25/22 19:37 Eos % (Auto) 0.0 % (0.0-4.3) 07/25/22 19:37 Baso % (Auto) 0.3 % (0.0-1.8) 07/25/22 19:37 Lymph # (Auto) 4.1 K/mm3 (1.2-5.4) 07/25/22 19:37 [place] # (Auto) 1.4 K/mm3 (0.0-0.8) H 07/25/22 19:37 Eos # (Auto) 0.0 K/mm3 (0.0-0.4) 07/25/22 19:37 Baso # (Auto) 0.1 K/mm3 (0.0-0.1) 07/25/22 19:37 Add Manual Diff Complete 07/27/22 03:50 Total Counted 100 07/27/22 03:50 Seg Neutrophils % 70.7 % (40.0-70.0) H 07/25/22 19:37 Seg Neuts % (Manual) 78.0 % (40.0-70.0) H 07/27/22 03:50 Band Neutrophils % 16.0 % 07/27/22 03:50 Lymphocytes % (Manual) 3.0 % (13.4-35.0) L 07/27/22 03:50 Reactive Lymphs % (Man) 0 % 07/27/22 03:50 Monocytes % (Manual) 2.0 % (0.0-7.3) 07/27/22 03:50 Eosinophils % (Manual) 0 % (0.0-4.3) 07/27/22 03:50 Basophils % (Manual) 0 % (0.0-1.8) 07/27/22 03:50 Metamyelocytes % 1.0 % 07/27/22 03:50 Myelocytes % 0 % 07/27/22 03:50 Promyelocytes % 0 % 07/27/22 03:50 Blast Cells % 0 % 07/27/22 03:50 Nucleated RBC % Not Reportable 07/27/22 03:50 Seg Neutrophils # 13.3 K/mm3 (1.8-7.7) H 07/25/22 19:37 Seg Neutrophils # Man 12.0 K/mm3 (1.8-7.7) H 07/27/22 03:50 Band Neutrophils # 2.5 K/mm3 07/27/22 03:50 Lymphocytes # (Manual) 0.5 K/mm3 (1.2-5.4) L 07/27/22 03:50 Abs React Lymphs (Man) 0.0 K/mm3 07/27/22 03:50 Monocytes # (Manual) 0.3 K/mm3 (0.0-0.8) 07/27/22 03:50 Eosinophils # (Manual) 0.0 K/mm3 (0.0-0.4) 07/27/22 03:50 Basophils # (Manual) 0.0 K/mm3 (0.0-0.1) 07/27/22 03:50 Metamyelocytes # 0.2 K/mm3 07/27/22 03:50 Myelocytes # 0.0 K/mm3 07/27/22 03:50 Promyelocytes # 0.0 K/mm3 07/27/22 03:50 Blast Cells # 0.0 K/mm3 07/27/22 03:50 WBC Morphology Not Reportable 07/27/22 03:50 Hypersegmented Neuts Not Reportable 07/27/22 03:50 Hyposegmented Neuts Not Reportable 07/27/22 03:50 Hypogranular Neuts Not Reportable 07/27/22 03:50 Smudge Cells Not Reportable 07/27/22 03:50 Toxic Granulation Not Reportable 07/27/22 03:50 Toxic Vacuolation Not Reportable 07/27/22 03:50 Dohle Bodies Not Reportable 07/27/22 03:50 Pelger-Huet Anomaly Not Reportable 07/27/22 03:50 Jay Rods Not Reportable 07/27/22 03:50 Platelet Estimate Consistent w auto 07/27/22 03:50 Clumped Platelets Not Reportable 07/27/22 03:50 Plt Clumps, EDTA Not Reportable 07/27/22 03:50 Large Platelets Not Reportable 07/27/22 03:50 Giant Platelets Not Reportable 07/27/22 03:50 Platelet Satelliting Not Reportable 07/27/22 03:50 Plt Morphology Comment Not Reportable 07/27/22 03:50 RBC Morphology Not Reportable 07/27/22 03:50 Dimorphic RBCs Not Reportable 07/27/22 03:50 Polychromasia Not Reportable 07/27/22 03:50 Hypochromasia Not Reportable 07/27/22 03:50 Poikilocytosis Not Reportable 07/27/22 03:50 Anisocytosis Not Reportable 07/27/22 03:50 Microcytosis Not Reportable 07/27/22 03:50 Macrocytosis Not Reportable 07/27/22 03:50 Spherocytes Not Reportable 07/27/22 03:50 Pappenheimer Bodies Not Reportable 07/27/22 03:50 Sickle Cells Not Reportable 07/27/22 03:50 Target Cells Not Reportable 07/27/22 03:50 Tear Drop Cells Not Reportable 07/27/22 03:50 Ovalocytes Not Reportable 07/27/22 03:50 Helmet Cells Not Reportable 07/27/22 03:50 [place] Bodies Not Reportable 07/27/22 03:50 [place] Rings Not Reportable 07/27/22 03:50 [place] Cells Not Reportable 07/27/22 03:50 Bite Cells Not Reportable 07/27/22 03:50 Crenated Cell Not Reportable 07/27/22 03:50 Elliptocytes Not Reportable 07/27/22 03:50 Acanthocytes (Spur) Not Reportable 07/27/22 03:50 Rouleaux Not Reportable 07/27/22 03:50 Hemoglobin C Crystals Not Reportable 07/27/22 03:50 Schistocytes Not Reportable 07/27/22 03:50 Malaria parasites Not Reportable 07/27/22 03:50 [place] Bodies Not Reportable 07/27/22 03:50 Hem Pathologist Commnt No 07/27/22 03:50 PT 14.3 Sec. (12.2-14.9) 07/31/22 04:13 INR 0.97 (0.87-1.13) 07/31/22 04:13 ABG pH 7.513 pH Units (7.350-7.450) H 07/31/22 03:25 ABG pCO2 25.7 mm Hg 07/31/22 03:25 ABG pO2 64.1 mm Hg (80.0-90.0) L 07/31/22 03:25 ABG HCO3 20.2 mmol/L (20.0-26.0) 07/31/22 03:25 ABG O2 Saturation 95.4 % (95.0-99.0) 07/31/22 03:25 ABG O2 Content 13.9 (0.0-44) 07/31/22 03:25 ABG Base Excess -1.7 mmol/L (-2.0-3.0) 07/31/22 03:25 ABG Hemoglobin 10.5 gm/dl (14.0-18.0) L 07/31/22 03:25 ABG Carboxyhemoglobin 1.3 % (0.0-5.0) 07/31/22 03:25 ABG Methemoglobin 0.3 % (0.0-1.5) 07/31/22 03:25 VBG pH 7.362 (7.320-7.420) 07/25/22 19:37 Oxyhemoglobin 93.8 % (95.0-99.0) L 07/31/22 03:25 FiO2 28 % 07/31/22 03:25 Sodium 146 mmol/L (137-145) H 07/31/22 04:00 Potassium 3.4 mmol/L (3.6-5.0) L 07/31/22 04:00 Chloride 112.5 mmol/L (98-107) H 07/31/22 04:00 Carbon Dioxide 21 mmol/L (22-30) L 07/31/22 04:00 Anion Gap 16 mmol/L 07/31/22 04:00 BUN 53 mg/dL (9-20) H 07/31/22 04:00 Creatinine 1.6 mg/dL (0.8-1.3) H 07/31/22 04:00 Estimated GFR 42 ml/min 07/31/22 04:00 BUN/Creatinine Ratio 33 % 07/31/22 04:00 Glucose 151 mg/dL (75-100) H 07/31/22 04:00 POC Glucose 155 mg/dL (70-105) H 07/31/22 05:39 Hemoglobin A1c 12.3 % (4-6) H 07/27/22 12:13 Lactic Acid 9.70 mmol/L (0.7-2.0) H* 07/26/22 15:36 Calcium 6.4 mg/dL (8.4-10.2) L 07/31/22 04:00 Phosphorus 1.70 mg/dL (2.5-4.5) L 07/30/22 04:42 Magnesium 2.00 mg/dL (1.7-2.3) 07/30/22 04:42 Total Bilirubin 0.30 mg/dL (0.1-1.2) 07/27/22 03:50 AST 64 units/L (5-40) H 07/27/22 03:50 ALT 31 units/L (7-56) 07/27/22 03:50 Alkaline Phosphatase 61 units/L (35-129) 07/27/22 03:50 Ammonia 64.0 umol/L (25-60) H 07/25/22 19:37 Total Creatine Kinase 158 units/L (55-170) 07/25/22 19:37 CK-MB (CK-2) < 1.0 ng/mL (0.0-4.0) 07/25/22 19:37 CK-MB (CK-2) Rel Index 0.6 (0-4) 07/25/22 19:37 Troponin T 0.049 ng/mL (0.00-0.029) H D 07/26/22 15:36 Total Protein 4.1 g/dL (6.3-8.2) L D 07/27/22 03:50 Albumin 2.1 g/dL (3.9-5) L 07/27/22 03:50 Albumin/Globulin Ratio 1.1 % 07/27/22 03:50 Triglycerides 362 mg/dL (2-149) H 07/25/22 19:37 Cholesterol 126 mg/dL (50-199) 07/25/22 19:37 LDL Cholesterol Direct 44 mg/dL (50-130) L 07/25/22 19:37 HDL Cholesterol 34 mg/dL (40-59) L 07/25/22 19:37 Cholesterol/HDL Ratio 3.70 % 07/25/22 19:37 TSH 2.170 mlU/mL (0.270-4.200) 07/25/22 19:37 Free T4 1.18 ng/dL (0.76-1.46) 07/25/22 19:37 Urine Color Lin (Yellow) 07/26/22 08:31 Urine Turbidity Cloudy (Clear) 07/26/22 08:31 Specific [place] (Man) 1.010 (1.003-1.030) 07/26/22 08:31 Ur Protein (Man) <30 mg dl mg/dL (Negative) 07/26/22 08:31 Ur Ketones (Man) Negative (Negative) 07/26/22 08:31 Ur Nitrite (Man) Negative (Negative) 07/26/22 08:31 Ur Reducing Substances Not Reportable 07/26/22 08:31 Urine Bilirubin (Man) Negative (Negative) 07/26/22 08:31 Urine Ictotest Not Reportable 07/26/22 08:31 Leukocyte Esterase (Man) Trace (Negative) 07/26/22 08:31 Urine WBC (Auto) < 1.0 /HPF (0.0-6.0) 07/26/22 08:31 Urine RBC (Auto) 1.0 /HPF (0.0-6.0) 07/26/22 08:31 U Epithel Cells (Auto) 3.0 /HPF (0-13.0) 07/26/22 08:31 Urine RBC (Manual) 5-10 (Negative) 07/26/22 08:31 Ur Renal Epithelial Cell 3 /LPF 07/26/22 08:31 Urine Mucus Few /HPF 07/26/22 08:31 Urine Creatinine 118.4 mg/dL (0.1-20.0) H 07/26/22 18:10 Protein/Creatinin Ratio 1.23 07/26/22 18:10 Urine Sodium 108 mmol/L 07/26/22 18:10 Urine Total Protein 146 mg/dL (5-11.8) H 07/26/22 18:10 Microbiology: Microbiology 07/25/22 22:10 Peripheral/Venous Blood Culture - Final NO GROWTH AFTER 5 DAYS 07/25/22 21:08 Peripheral/Venous Blood Culture - Final NO GROWTH AFTER 5 DAYS Yañez/IV: Voiding Method Indwelling Catheter Active Medications - Current Medications Current Medications: Generic Name Dose Route Start Last Admin Trade Name Freq PRN Reason Stop Dose Admin Acetaminophen 650 mg 07/26/22 00:31 07/28/22 06:00 Acetaminophen 325 Mg Tab PO 650 mg Q4H PRN Administration Pain MILD(1-3)/Fever >100.5/LANTIGUA Acetaminophen 650 mg 07/26/22 02:04 Acetaminophen 650 Mg Rect Supp ME Q4H PRN Pain, Mild (1-3) Albuterol 2.5 mg 07/26/22 00:31 Albuterol 2.5 Mg/3 Ml Nebu IH Q3HRT PRN Shortness Of Breath Amiodarone HCl 200 mg 07/29/22 15:00 07/31/22 09:32 Amiodarone 200 Mg Tab PO 200 mg BID LIZZIE Administration Atorvastatin Calcium 40 mg 07/26/22 22:00 07/30/22 21:06 Atorvastatin 40 Mg Tab PO 40 mg QHS LIZZIE Administration Dextrose 50 ml 07/27/22 09:25 Dextrose 50% In Water (25gm) 50 Ml Syringe IV Q30MIN PRN Hypoglycemia Protocol Famotidine 10 mg 07/28/22 10:00 07/31/22 10:54 Famotidine 10 Mg Tab FEEDTUBE 10 mg BID LIZZIE Administration Hydrocortisone Sodium Succinate 50 mg 07/31/22 14:00 07/31/22 14:07 Hydrocortisone Sod Succ 100 Mg/2 Ml Vial IV 50 mg Q8HR LIZZIE Administration Cefepime HCl 2 gm in 100 mls @ 200 mls/hr 07/27/22 11:00 07/31/22 10:54 Cefepime/Ns 2 Gm/100 Ml IV 08/03/22 11:29 200 mls/hr Q24H LIZZIE Administration Protocol Insulin Glargine 30 units 07/28/22 22:00 07/31/22 09:32 Insulin Glargine 100 Units/Ml SUB-Q 30 units BID LIZZIE Administration Insulin Human Regular 0 units 07/27/22 12:00 07/31/22 17:26 Insulin Regular, Human 100 Units/1 Ml SUB-Q 3 units Q6H LIZZIE Administration Protocol Multi-Ingred Cream/Lotion/Oil/Oint 1 applic 07/27/22 03:17 07/27/22 03:35 Mineral Oil/Petrolatum, White Ophth Oint 3.5 Gm OU 1 applic PRN PRN Administration Dry Eye(s) Nitroglycerin 0.4 mg 07/26/22 00:31 Nitroglycerin 0.4 Mg Tab Subl SL Q5M PRN Chest Pain Ondansetron HCl 4 mg 07/26/22 00:31 Ondansetron 4 Mg/2 Ml Inj IV Q8H PRN Nausea And Vomiting Sodium Bicarbonate 650 mg 07/29/22 20:00 07/31/22 14:07 Sodium Bicarbonate 650 Mg Tab PO 650 mg TID LIZZIE Administration Sodium Chloride 10 ml 07/26/22 10:00 07/31/22 09:33 Sodium Chloride 0.9% 10 Ml Flush Syringe IV 10 ml BID LIZZIE Administration Sodium Chloride 10 ml 07/26/22 00:31 Sodium Chloride 0.9% 10 Ml Flush Syringe IV PRN PRN LINE FLUSH Nutrition/Malnutrition Assess - Dietary Evaluation Nutrition/Malnutrition Findings: Nutrition Notes Start: 07/26/22 10:25 Freq: Status: Active Protocol: Document 07/31/22 14:58 PEACE (Rec: 07/31/22 15:04 PEACE [id number]) Nutrition Notes Initial or Follow up Reassessment Current Diagnosis Acute Kidney Injury,Diabetes, Hypertension,Respiratory Failure,Hyperlipidemia Other Pertinent Diagnosis s/p cardiac arrest, s/p DKA, acute metabolic encephalopathy Current Diet TF - Glucerna 1.2 at 45ml/hr Labs/Tests Na 146 K 3.4 BUN 53 Cr 1.6 BG 151 Pertinent Medications 40mEq KCl Height 5 ft 5 in Weight 49.8 kg Happy Body Weight (kg) 61.81 BMI 18.2 Subjective/Other Information Observed Glucerna 1.2 infusing at goal rate; pt tolerating TF. MD ordered 250ml water flush q4h. Pt remains on vent support; renal function improving. Percent of energy/protein needs met: 93% energy 100% pro Burn Absent Trauma Absent #1 Nutrition Diagnosis Inadequate oral intake Diagnosis Progress(for reassessment Continues documentation) Is patient on ventilator? Yes Is Patient Ambulatory and/or Out of Bed No REE-([place] Jeor-confined to bed) [phone] Calculation Used for Recommendations [place] Je[place] Additional Notes Pro needs 0.8-1.2g/k-60g/ day Fluid needs per MD. Nutrition Intervention Nutrition Support: Continue Glucerna 1.2 at 45ml/ hr with 250ml water flush q4h until hypernatremia resolved. Kcal 1,296 Protein (gm) 65 Carbohydrates (gm) 124 Fat (gm) 65 Fluid (mL) 869 Fiber (gm) 17 Goal #1 TF tolerance Goal #2 TF to provide at least 75% energy and pro needs Follow-Up By: 08/07/22 Additional Comments F/U: stable TF, trach/PEG placement, vent status, renal function, BM
[2022-07-31] MEDS: ACETAMINOPHEN 325 MG TAB PO PRN (23:30)
[2022-08-01] MEDS: INSULIN REGULAR, HUMAN 100 UNITS/1 ML SUB-Q SCH ×4 (00:57→17:59)
--- NOTE | 2022-08-01 03:19 | XRay Report ---
CHEST 1 VIEW INDICATION / CLINICAL INFORMATION: sob. COMPARISON: Chest x-ray 07/28/2022 FINDINGS: SUPPORT DEVICES: Satisfactory position of endotracheal tube. Esophagogastric tube terminates likely w ithin the second portion the duodenum. HEART / MEDIASTINUM: Heart size is within normal limits. Mediastinal contour demonstrates no signific ant abnormality. LUNGS / PLEURA: Minimal nonconsolidating opacities of the lung bases. Mid and upper lungs remain bri r. BONES: No significant osseous abnormality. ADDITIONAL FINDINGS: No significant additional findings. IMPRESSION: 1. Tubes and lines as detailed. 2. Minimal nonconsolidating opacities of the lung bases minimal change from comparison. Signer Name: Moe Ambrosio II, MD Signed: 08/01/2022 3:15 AM Workstation Name: [id number]
[2022-08-01 04:48] LABS: Hematocrit 31.8 % (35.5-45.6); Hemoglobin 10.6 gm/dl (11.8-15.2); Mean Corpuscular HGB Conc 33 % (32-34); Mean Corpuscular Volume 88 fl (84-94); Platelet Count 90 K/mm3 (140-440); Red Blood Count 3.62 M/mm3 (3.65-5.03); Red Cell Distribution Width 15.7 % (13.2-15.2)
[2022-08-01] MEDS: HYDROCORTISONE SOD SUCC 100 MG/2 ML VIAL IV SCH ×3 (05:47→21:12)
[2022-08-01] MEDS ORDERED: MAGNESIUM SULFATE 4 GM/100 ML BAG IV SCH (09:00)
[2022-08-01] MEDS ORDERED: POTASSIUM PHOSPHATE 15 MMOL in SODIUM CHLORIDE 0.9% 250ML 250 ML IV SCH (09:30)
[2022-08-01] MEDS ORDERED: POTASSIUM CHLORIDE 20 MEQ PACKET FEEDTUBE SCH (10:00)
[2022-08-01] MEDS: CEFEPIME/NS 2 GM/100 ML 2 GM/100 ML BAG IV SCH (10:29)
[2022-08-01] MEDS: SODIUM BICARBONATE 650 MG TAB PO SCH ×3 (10:30→20:46)
[2022-08-01] MEDS: AMIODARONE 200 MG TAB PO SCH ×2 (10:30→21:11)
[2022-08-01] MEDS: INSULIN GLARGINE 100 UNITS/ML SUB-Q SCH ×2 (10:30→21:11)
[2022-08-01] MEDS: FAMOTIDINE 10 MG TAB FEEDTUBE SCH ×2 (10:34→21:11)
--- NOTE | 2022-08-01 11:02 | Progress Note ---
<DENNY ARNOLD - Last Filed: 08/01/22 19:40> Assessment and Plan Assessment and plan: This is a 77-year-old male from a SNF facility with known past medical history of DM, paroxysmal atrial fibrillation, HTN, and CVA (2020) initially presented with AMS and Hyperglycemia. While in the ED, patient became obtunded with hyp oxia and was intubated for airway protection. Post intubation patient PEA arrested and ROSC was achieved after approximately 13 minutes. Hospital Course to Date: 07/26: Patient is on any sedation, very sluggish pupillary response, no cough/gag noted, no seizure activity. Neurology recs repeat CT head without contrast or MRI brain without contrast when clinically stable. Patient also had a EEG completed today. Patient is currently maxed on Levophed and vasopressin. Given several LR boluses today. Antibiotics broadened and stress dose steroids added. 07/27: Weaning pressors, phosphorus repleted, SSI and long-acting insulin initiated, tube feeding initiated. Patient now has a hypoactive cough/gag. CT head pending. LR bolus. Thrombocytopenia noted. Cardiology would like to start heparin drip due to atrial fibrillation however would like neurology input prior to. 07/28: Patient remains off of vasopressors, patient had MRI today. Worsening renal function noted. Cardiology will hold off amiodarone due to thrombocytopenia. No acute events reported overnight. 07/29: I had an extensive conversation with son and at bedside to with the help of an crm functional analyst through the lap layer line. Explained thoroughly of presentation to the ED from documentation, cardiac arrest, CT head and MRI brain findings. They are still electing to continue aggressive care and would like hospital assistance with getting a visa for youngest son to come to the [facility] from [place]. manager critical care unit is aware of request. Steroid taper started. CBC pending. Will be repleted. Hypernatremia improving. 07/30: LR bolus, renal function is improved, thrombocytopenia worse. Likely consult surgery for trach/peg as per family requests to continue care. No acute events overnight. 07/31: Patient's mentation is unchanged. Remains on low vent setting. D/w [facility] general surgery consulted for possible trach and PEG. Renal function is improving, still hypenatremic, continue FWF per Nephrology. K repleted, continue to - Monitor and replace electrolytes as needed. Patient remains in SR on the monitor, VSS. Amiodarone gtt transitioned to PO amio per Cardio. 08/01: Condition unchanged, remains stable on low vent setting. Renal function continue to improve with persistent hypernatremia, continue FWF per Nephro. General Surgery recommendations noted. D/w General surgery, plan for possible trach and PEG exchange tomorrow or . Neuro: Acute metabolic encephalopathy, hepatic encephalopathy, r/o ALEC and subclinical status epilepticus, h/o CVA (2019) -Sluggish pupils, no cough/gag, periodic spontaneous respiration -Neurology consulted, appreciate recommendations -Initial CT head with no acute abnormality -Repeat CT head without contrast of preferably MRI brain without contrast when clinically stable -EEG completed -Per neurology aim for euglycemia and permissive hypertension for now -Ammonia 64 -MRI brain shows diffuse diffusion abnormality involving cerebral and cerebellum compatible with diffuse hypoxia given the patient's history, interval evolving of left [employer] infarct from 02/16/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 Cardiac: S/p cardiac arrest, A. fib RVR, h/o hypertension, paroxysmal atrial fibrillation, hyperlipidemia -Patient suffered cardiac arrest on 07/25 in the ED and then was noted to be in A. fib with RVR -Amiodarone PO -Cardiology consulted, appreciate recommendations -Blood pressure monitoring per protocol -S/p vasopressor support with Levophed and vasopressin -MAP goal greater than 65 -Echocardiogram shows EF 50 to 60%, no pericardial effusion -Lipitor Respiratory: Acute hypoxic respiratory failure -CCM consulted, appreciate recommendations -Intubated on 07/25 with a 8.00 ETT in the ED -A.m. vent settings: Assist-control rate 20, tidal volume 450, PEEP 6, FiO2 30% -See RT notes for titration -A.m. ABG and CXR noted -VAP bundle -SPO2 monitoring -General Surgery consulted for possible Trach/PEg GI: Protein calorie malnutrition -Enteral Nutrition initiated -NTR consult for tube feeding -PPI : Hypernatremia, metabolic acidosis, acute kidney injury likely secondary to vasomotor nephropathy, hypokalemia, hypophosphatemia -S/p 4 L LR bolus -Nephrology consulted, appreciate recommendations -Serum creatinine 03/08/2020 was 1.3, Scr. back to baseline at 1.3 today -Monitor intake and output -Renally dose medications -Avoid nephrotoxic medications -FWF 250ml q 4 hr per nephro -Renal ultrasound noted -KPhos IV -Trend BMP ID: Sepsis, Klebsiella pneumonia -Hypotension, acute kidney injury, acute respiratory failure, lactic acidosis -Antibiotic therapy with cefepime -Solu-Cortef tapering -f/u blood culture -Monitor WBC and temperature curve Endo: h/o DM s/p DKA -Presented with anion gap of 21, glucose of 761, VBG 7.362 -s/p Insulin drip -Accu-Cheks q6hr -SSI -Long-acting insulin when able -Hemaglobin A1C 12.3 Heme: Thrombocytopenia -Dropped in plt -Hematology consulted -HIT panel pending -Trend CBC -Transfuse hemoglobin less than 7 -SCDs to BLE while in bed The high probability of a clinically significant, sudden or life threatening deterioration of the [multi] system(s) required my full and direct attention, intervention and personal management. The aggregate critical care time was [60] minutes. This time is in addition to time spent performing reported procedures but includes the following: [x] Data Review and interpretation [x] Patient assessment and monitoring of vital signs [x] Documentation [x] Medication orders and management Disposition Plan: ICU Total Time Spent with Patient (Minutes): 60 History Interval history: Patient seen and examined at the bedside. Remains on the vent, unresponsive, not on any sedations. In SR on the monitor, VSS. ABRAM overnight Hospitalist Physical - Physical exam Narrative exam: General appearance: Present: other (Intubated and unresponsive) - EENT Eyes: Present: irregular pupil, mydriasis - Respiratory Respiratory effort: normal Respiratory: bilateral: rhonchi - Cardiovascular Rhythm: regular Heart Sounds: Present: S1 & S2 - Extremities Extremities: no ischemia, pulses intact, pulses symmetrical Extremity abnormal: edema - Peripheral Assessment Generalized Edema Type: Non-pitting Edema Degree: 2+ Capillary Refill: < 3 seconds Skin Temperature: Warm Peripheral Pulses: within normal limits - Abdominal General gastrointestinal: soft, non-distended, normal bowel sounds - Integumentary Integumentary: Present: warm, dry - Psychiatric Psychiatric: other (Intubated and unresponsive) - Neurologic Neurologic: other (Intubated and unresponsive) - Allied Health Allied health notes reviewed: nursing, case management - Constitutional Vitals: Temp Pulse Resp BP Pulse Ox 98.7 F 94 H 29 H 174/95 95 08/01/22 07:13 08/01/22 10:00 08/01/22 10:00 08/01/22 10:00 08/01/22 10:00 HEART Score - HEART Score Troponin: Troponin T 0.049 ng/mL (0.00-0.029) H D 07/26/22 15:36 Results - Labs CBC & Chem 7: 08/01/22 04:17 08/01/22 04:17 Labs: Laboratory Last Values WBC 8.3 K/mm3 (4.5-11.0) 08/01/22 04:17 RBC 3.62 M/mm3 (3.65-5.03) L 08/01/22 04:17 Hgb 10.6 gm/dl (11.8-15.2) L 08/01/22 04:17 Hct 31.8 % (35.5-45.6) L 08/01/22 04:17 MCV 88 fl (84-94) 08/01/22 04:17 MCH 29 pg (28-32) 08/01/22 04:17 MCHC 33 % (32-34) 08/01/22 04:17 RDW 15.7 % (13.2-15.2) H 08/01/22 04:17 Plt Count 90 K/mm3 (140-440) L 08/01/22 04:17 Lymph % (Auto) 21.7 % (13.4-35.0) 07/25/22 19:37 [place] % (Auto) 7.3 % (0.0-7.3) 07/25/22 19:37 Eos % (Auto) 0.0 % (0.0-4.3) 07/25/22 19:37 Baso % (Auto) 0.3 % (0.0-1.8) 07/25/22 19:37 Lymph # (Auto) 4.1 K/mm3 (1.2-5.4) 07/25/22 19:37 [place] # (Auto) 1.4 K/mm3 (0.0-0.8) H 07/25/22 19:37 Eos # (Auto) 0.0 K/mm3 (0.0-0.4) 07/25/22 19:37 Baso # (Auto) 0.1 K/mm3 (0.0-0.1) 07/25/22 19:37 Add Manual Diff Complete 07/27/22 03:50 Total Counted 100 07/27/22 03:50 Seg Neutrophils % 70.7 % (40.0-70.0) H 07/25/22 19:37 Seg Neuts % (Manual) 78.0 % (40.0-70.0) H 07/27/22 03:50 Band Neutrophils % 16.0 % 07/27/22 03:50 Lymphocytes % (Manual) 3.0 % (13.4-35.0) L 07/27/22 03:50 Reactive Lymphs % (Man) 0 % 07/27/22 03:50 Monocytes % (Manual) 2.0 % (0.0-7.3) 07/27/22 03:50 Eosinophils % (Manual) 0 % (0.0-4.3) 07/27/22 03:50 Basophils % (Manual) 0 % (0.0-1.8) 07/27/22 03:50 Metamyelocytes % 1.0 % 07/27/22 03:50 Myelocytes % 0 % 07/27/22 03:50 Promyelocytes % 0 % 07/27/22 03:50 Blast Cells % 0 % 07/27/22 03:50 Nucleated RBC % Not Reportable 07/27/22 03:50 Seg Neutrophils # 13.3 K/mm3 (1.8-7.7) H 07/25/22 19:37 Seg Neutrophils # Man 12.0 K/mm3 (1.8-7.7) H 07/27/22 03:50 Band Neutrophils # 2.5 K/mm3 07/27/22 03:50 Lymphocytes # (Manual) 0.5 K/mm3 (1.2-5.4) L 07/27/22 03:50 Abs React Lymphs (Man) 0.0 K/mm3 07/27/22 03:50 Monocytes # (Manual) 0.3 K/mm3 (0.0-0.8) 07/27/22 03:50 Eosinophils # (Manual) 0.0 K/mm3 (0.0-0.4) 07/27/22 03:50 Basophils # (Manual) 0.0 K/mm3 (0.0-0.1) 07/27/22 03:50 Metamyelocytes # 0.2 K/mm3 07/27/22 03:50 Myelocytes # 0.0 K/mm3 07/27/22 03:50 Promyelocytes # 0.0 K/mm3 07/27/22 03:50 Blast Cells # 0.0 K/mm3 07/27/22 03:50 WBC Morphology Not Reportable 07/27/22 03:50 Hypersegmented Neuts Not Reportable 07/27/22 03:50 Hyposegmented Neuts Not Reportable 07/27/22 03:50 Hypogranular Neuts Not Reportable 07/27/22 03:50 Smudge Cells Not Reportable 07/27/22 03:50 Toxic Granulation Not Reportable 07/27/22 03:50 Toxic Vacuolation Not Reportable 07/27/22 03:50 Dohle Bodies Not Reportable 07/27/22 03:50 Pelger-Huet Anomaly Not Reportable 07/27/22 03:50 Jay Rods Not Reportable 07/27/22 03:50 Platelet Estimate Consistent w auto 07/27/22 03:50 Clumped Platelets Not Reportable 07/27/22 03:50 Plt Clumps, EDTA Not Reportable 07/27/22 03:50 Large Platelets Not Reportable 07/27/22 03:50 Giant Platelets Not Reportable 07/27/22 03:50 Platelet Satelliting Not Reportable 07/27/22 03:50 Plt Morphology Comment Not Reportable 07/27/22 03:50 RBC Morphology Not Reportable 07/27/22 03:50 Dimorphic RBCs Not Reportable 07/27/22 03:50 Polychromasia Not Reportable 07/27/22 03:50 Hypochromasia Not Reportable 07/27/22 03:50 Poikilocytosis Not Reportable 07/27/22 03:50 Anisocytosis Not Reportable 07/27/22 03:50 Microcytosis Not Reportable 07/27/22 03:50 Macrocytosis Not Reportable 07/27/22 03:50 Spherocytes Not Reportable 07/27/22 03:50 Pappenheimer Bodies Not Reportable 07/27/22 03:50 Sickle Cells Not Reportable 07/27/22 03:50 Target Cells Not Reportable 07/27/22 03:50 Tear Drop Cells Not Reportable 07/27/22 03:50 Ovalocytes Not Reportable 07/27/22 03:50 Helmet Cells Not Reportable 07/27/22 03:50 Reynolds-Stanberry Bodies Not Reportable 07/27/22 03:50 [place] Rings Not Reportable 07/27/22 03:50 Leonora Cells Not Reportable 07/27/22 03:50 Bite Cells Not Reportable 07/27/22 03:50 Crenated Cell Not Reportable 07/27/22 03:50 Elliptocytes Not Reportable 07/27/22 03:50 Acanthocytes (Spur) Not Reportable 07/27/22 03:50 Rouleaux Not Reportable 07/27/22 03:50 Hemoglobin C Crystals Not Reportable 07/27/22 03:50 Schistocytes Not Reportable 07/27/22 03:50 Malaria parasites Not Reportable 07/27/22 03:50 P[place]e Bodies Not Reportable 07/27/22 03:50 Hem Pathologist Commnt No 07/27/22 03:50 PT 14.3 Sec. (12.2-14.9) 07/31/22 04:13 INR 0.97 (0.87-1.13) 07/31/22 04:13 ABG pH 7.513 pH Units (7.350-7.450) H 07/31/22 03:25 ABG pCO2 25.7 mm Hg 07/31/22 03:25 ABG pO2 64.1 mm Hg (80.0-90.0) L 07/31/22 03:25 ABG HCO3 20.2 mmol/L (20.0-26.0) 07/31/22 03:25 ABG O2 Saturation 95.4 % (95.0-99.0) 07/31/22 03:25 ABG O2 Content 13.9 (0.0-44) 07/31/22 03:25 ABG Base Excess -1.7 mmol/L (-2.0-3.0) 07/31/22 03:25 ABG Hemoglobin 10.5 gm/dl (14.0-18.0) L 07/31/22 03:25 ABG Carboxyhemoglobin 1.3 % (0.0-5.0) 07/31/22 03:25 ABG Methemoglobin 0.3 % (0.0-1.5) 07/31/22 03:25 VBG pH 7.362 (7.320-7.420) 07/25/22 19:37 Oxyhemoglobin 93.8 % (95.0-99.0) L 07/31/22 03:25 FiO2 28 % 07/31/22 03:25 Sodium 147 mmol/L (137-145) H 08/01/22 04:17 Potassium 3.3 mmol/L (3.6-5.0) L 08/01/22 04:17 Chloride 113.7 mmol/L (98-107) H 08/01/22 04:17 Carbon Dioxide 22 mmol/L (22-30) 08/01/22 04:17 Anion Gap 15 mmol/L 08/01/22 04:17 BUN 46 mg/dL (9-20) H 08/01/22 04:17 Creatinine 1.3 mg/dL (0.8-1.3) 08/01/22 04:17 Estimated GFR 54 ml/min 08/01/22 04:17 BUN/Creatinine Ratio 35 % 08/01/22 04:17 Glucose 141 mg/dL (75-100) H 08/01/22 04:17 POC Glucose 133 mg/dL (70-105) H 07/31/22 23:48 Hemoglobin A1c 12.3 % (4-6) H 07/27/22 12:13 Lactic Acid 9.70 mmol/L (0.7-2.0) H* 07/26/22 15:36 Calcium 6.0 mg/dL (8.4-10.2) L 08/01/22 04:17 Phosphorus 2.00 mg/dL (2.5-4.5) L 08/01/22 04:17 Magnesium 1.50 mg/dL (1.7-2.3) L 08/01/22 04:17 Total Bilirubin 0.30 mg/dL (0.1-1.2) 07/27/22 03:50 AST 64 units/L (5-40) H 07/27/22 03:50 ALT 31 units/L (7-56) 07/27/22 03:50 Alkaline Phosphatase 61 units/L (35-129) 07/27/22 03:50 Ammonia 64.0 umol/L (25-60) H 07/25/22 19:37 Total Creatine Kinase 158 units/L (55-170) 07/25/22 19:37 CK-MB (CK-2) < 1.0 ng/mL (0.0-4.0) 07/25/22 19:37 CK-MB (CK-2) Rel Index 0.6 (0-4) 07/25/22 19:37 Troponin T 0.049 ng/mL (0.00-0.029) H D 07/26/22 15:36 Total Protein 4.1 g/dL (6.3-8.2) L D 07/27/22 03:50 Albumin 2.1 g/dL (3.9-5) L 07/27/22 03:50 Albumin/Globulin Ratio 1.1 % 07/27/22 03:50 Triglycerides 362 mg/dL (2-149) H 07/25/22 19:37 Cholesterol 126 mg/dL (50-199) 07/25/22 19:37 LDL Cholesterol Direct 44 mg/dL (50-130) L 07/25/22 19:37 HDL Cholesterol 34 mg/dL (40-59) L 07/25/22 19:37 Cholesterol/HDL Ratio 3.70 % 07/25/22 19:37 TSH 2.170 mlU/mL (0.270-4.200) 07/25/22 19:37 Free T4 1.18 ng/dL (0.76-1.46) 07/25/22 19:37 Urine Color Lin (Yellow) 07/26/22 08:31 Urine Turbidity Cloudy (Clear) 07/26/22 08:31 Specific [place] (Man) 1.010 (1.003-1.030) 07/26/22 08:31 Ur Protein (Man) <30 mg dl mg/dL (Negative) 07/26/22 08:31 Ur Ketones (Man) Negative (Negative) 07/26/22 08:31 Ur Nitrite (Man) Negative (Negative) 07/26/22 08:31 Ur Reducing Substances Not Reportable 07/26/22 08:31 Urine Bilirubin (Man) Negative (Negative) 07/26/22 08:31 Urine Ictotest Not Reportable 07/26/22 08:31 Leukocyte Esterase (Man) Trace (Negative) 07/26/22 08:31 Urine WBC (Auto) < 1.0 /HPF (0.0-6.0) 07/26/22 08:31 Urine RBC (Auto) 1.0 /HPF (0.0-6.0) 07/26/22 08:31 U Epithel Cells (Auto) 3.0 /HPF (0-13.0) 07/26/22 08:31 Urine RBC (Manual) 5-10 (Negative) 07/26/22 08:31 Ur Renal Epithelial Cell 3 /LPF 07/26/22 08:31 Urine Mucus Few /HPF 07/26/22 08:31 Urine Creatinine 118.4 mg/dL (0.1-20.0) H 07/26/22 18:10 Protein/Creatinin Ratio 1.23 07/26/22 18:10 Urine Sodium 108 mmol/L 07/26/22 18:10 Urine Total Protein 146 mg/dL (5-11.8) H 07/26/22 18:10 Yañez/IV: Voiding Method Indwelling Catheter Active Medications - Current Medications Current Medications: Generic Name Dose Route Start Last Admin Trade Name Freq PRN Reason Stop Dose Admin Acetaminophen 650 mg 07/26/22 00:31 07/31/22 23:30 Acetaminophen 325 Mg Tab PO 650 mg Q4H PRN Administration Pain MILD(1-3)/Fever >100.5/LANTIGUA Acetaminophen 650 mg 07/26/22 02:04 Acetaminophen 650 Mg Rect Supp MT Q4H PRN Pain, Mild (1-3) Albuterol 2.5 mg 07/26/22 00:31 Albuterol 2.5 Mg/3 Ml Nebu IH Q3HRT PRN Shortness Of Breath Amiodarone HCl 200 mg 07/29/22 15:00 08/01/22 10:30 Amiodarone 200 Mg Tab PO 200 mg BID LIZZIE Administration Atorvastatin Calcium 40 mg 07/26/22 22:00 07/31/22 21:04 Atorvastatin 40 Mg Tab PO 40 mg QHS LIZZIE Administration Dextrose 50 ml 07/27/22 09:25 Dextrose 50% In Water (25gm) 50 Ml Syringe IV Q30MIN PRN Hypoglycemia Protocol Famotidine 10 mg 07/28/22 10:00 08/01/22 10:34 Famotidine 10 Mg Tab FEEDTUBE 10 mg BID LIZZIE Administration Hydrocortisone Sodium Succinate 50 mg 07/31/22 14:00 08/01/22 05:47 Hydrocortisone Sod Succ 100 Mg/2 Ml Vial IV 50 mg Q8HR LIZZIE Administration Cefepime HCl 2 gm in 100 mls @ 200 mls/hr 07/27/22 11:00 08/01/22 10:29 Cefepime/Ns 2 Gm/100 Ml IV 08/03/22 11:29 200 mls/hr Q24H LIZZIE Administration Protocol Magnesium Sulfate 4 gm in 100 mls @ 25 mls/hr 08/01/22 09:00 Magnesium Sulfate 4gm/100ml IV 08/01/22 13:00 ONCE@0900 LIZZIE Potassium Phosphate 15 mmol/ 255 mls @ 63.75 mls/hr 08/01/22 09:30 Sodium Chloride IV 08/01/22 13:30 ONCE@0930 [facility] Insulin Glargine 30 units 07/28/22 22:00 08/01/22 10:30 Insulin Glargine 100 Units/Ml SUB-Q 30 units BID LIZZIE Administration Insulin Human Regular 0 units 07/27/22 12:00 08/01/22 05:48 Insulin Regular, Human 100 Units/1 Ml SUB-Q Not Given Q6H [facility] Protocol Multi-Ingred Cream/Lotion/Oil/Oint 1 applic 07/27/22 03:17 07/27/22 03:35 Mineral Oil/Petrolatum, White Ophth Oint 3.5 Gm OU 1 applic PRN PRN Administration Dry Eye(s) Nitroglycerin 0.4 mg 07/26/22 00:31 Nitroglycerin 0.4 Mg Tab Subl SL Q5M PRN Chest Pain Ondansetron HCl 4 mg 07/26/22 00:31 Ondansetron 4 Mg/2 Ml Inj IV Q8H PRN Nausea And Vomiting Potassium Chloride 40 meq 08/01/22 10:00 08/01/22 10:29 Potassium Chloride 20 Meq Packet FEEDTUBE 08/01/22 14:00 40 meq ONCE@1000 LIZZIE Administration Sodium Bicarbonate 650 mg 07/29/22 20:00 08/01/22 10:30 Sodium Bicarbonate 650 Mg Tab PO 650 mg TID LIZZIE Administration Sodium Chloride 10 ml 07/26/22 10:00 08/01/22 10:29 Sodium Chloride 0.9% 10 Ml Flush Syringe IV 10 ml BID LIZZIE Administration Sodium Chloride 10 ml 07/26/22 00:31 Sodium Chloride 0.9% 10 Ml Flush Syringe IV PRN PRN LINE FLUSH Nutrition/Malnutrition Assess - Dietary Evaluation Nutrition/Malnutrition Findings: Nutrition Notes Start: 07/26/22 10:25 Freq: Status: Active Protocol: Document 07/31/22 14:58 PEACE (Rec: 07/31/22 15:04 NERISSALAWRENCE [id number]) Nutrition Notes Initial or Follow up Reassessment Current Diagnosis Acute Kidney Injury,Diabetes, Hypertension,Respiratory Failure,Hyperlipidemia Other Pertinent Diagnosis s/p cardiac arrest, s/p DKA, acute metabolic encephalopathy Current Diet TF - Glucerna 1.2 at 45ml/hr Labs/Tests Na 146 K 3.4 BUN 53 Cr 1.6 BG 151 Pertinent Medications 40mEq KCl Height 5 ft 5 in Weight 49.8 kg [place] Body Weight (kg) 61.81 BMI 18.2 Subjective/Other Information Observed Glucerna 1.2 infusing at goal rate; pt tolerating TF. MD ordered 250ml water flush q4h. Pt remains on vent support; renal function improving. Percent of energy/protein needs met: 93% energy 100% pro Burn Absent Trauma Absent #1 Nutrition Diagnosis Inadequate oral intake Diagnosis Progress(for reassessment Continues documentation) Is patient on ventilator? Yes Is Patient Ambulatory and/or Out of Bed No REE-([facility]-confined to bed) 1398.456 Calculation Used for Recommendations [facility] Additional Notes Pro needs 0.8-1.2g/k-60g/ day Fluid needs per MD. Nutrition Intervention Nutrition Support: Continue Glucerna 1.2 at 45ml/ hr with 250ml water flush q4h until hypernatremia resolved. Kcal 1,296 Protein (gm) 65 Carbohydrates (gm) 124 Fat (gm) 65 Fluid (mL) 869 Fiber (gm) 17 Goal #1 TF tolerance Goal #2 TF to provide at least 75% energy and pro needs Follow-Up By: 08/07/22 Additional Comments F/U: stable TF, trach/PEG placement, vent status, renal function, BM <DASHA DOWNING - Last Filed: 08/02/22 07:23> Assessment and Plan Assessment and plan: I saw and evaluated the patient. I agree with the findings and the plan of care as documented in the Nurse Practitioner's~note, with the following corrections and additions. Hospitalist Physical - Constitutional Vitals: Temp Pulse Resp BP Pulse Ox 99.4 F 80 38 H 157/79 93 08/02/22 04:00 08/02/22 07:00 08/02/22 07:00 08/02/22 07:00 08/02/22 07:00 HEART Score - HEART Score Troponin: Troponin T 0.049 ng/mL (0.00-0.029) H D 07/26/22 15:36 Results - Labs CBC & Chem 7: 08/02/22 04:48 08/02/22 04:48 Labs: Laboratory Last Values WBC 10.3 K/mm3 (4.5-11.0) 08/02/22 04:48 RBC 3.61 M/mm3 (3.65-5.03) L 08/02/22 04:48 Hgb 10.2 gm/dl (11.8-15.2) L 08/02/22 04:48 Hct 31.9 % (35.5-45.6) L 08/02/22 04:48 MCV 88 fl (84-94) 08/02/22 04:48 MCH 28 pg (28-32) 08/02/22 04:48 MCHC 32 % (32-34) 08/02/22 04:48 RDW 15.8 % (13.2-15.2) H 08/02/22 04:48 Plt Count 130 K/mm3 (140-440) L 08/02/22 04:48 Lymph % (Auto) 21.7 % (13.4-35.0) 07/25/22 19:37 [place] % (Auto) 7.3 % (0.0-7.3) 07/25/22 19:37 Eos % (Auto) 0.0 % (0.0-4.3) 07/25/22 19:37 Baso % (Auto) 0.3 % (0.0-1.8) 07/25/22 19:37 Lymph # (Auto) 4.1 K/mm3 (1.2-5.4) 07/25/22 19:37 [place] # (Auto) 1.4 K/mm3 (0.0-0.8) H 07/25/22 19:37 Eos # (Auto) 0.0 K/mm3 (0.0-0.4) 07/25/22 19:37 Baso # (Auto) 0.1 K/mm3 (0.0-0.1) 07/25/22 19:37 Add Manual Diff Complete 07/27/22 03:50 Total Counted 100 07/27/22 03:50 Seg Neutrophils % 70.7 % (40.0-70.0) H 07/25/22 19:37 Seg Neuts % (Manual) 78.0 % (40.0-70.0) H 07/27/22 03:50 Band Neutrophils % 16.0 % 07/27/22 03:50 Lymphocytes % (Manual) 3.0 % (13.4-35.0) L 07/27/22 03:50 Reactive Lymphs % (Man) 0 % 07/27/22 03:50 Monocytes % (Manual) 2.0 % (0.0-7.3) 07/27/22 03:50 Eosinophils % (Manual) 0 % (0.0-4.3) 07/27/22 03:50 Basophils % (Manual) 0 % (0.0-1.8) 07/27/22 03:50 Metamyelocytes % 1.0 % 07/27/22 03:50 Myelocytes % 0 % 07/27/22 03:50 Promyelocytes % 0 % 07/27/22 03:50 Blast Cells % 0 % 07/27/22 03:50 Nucleated RBC % Not Reportable 07/27/22 03:50 Seg Neutrophils # 13.3 K/mm3 (1.8-7.7) H 07/25/22 19:37 Seg Neutrophils # Man 12.0 K/mm3 (1.8-7.7) H 07/27/22 03:50 Band Neutrophils # 2.5 K/mm3 07/27/22 03:50 Lymphocytes # (Manual) 0.5 K/mm3 (1.2-5.4) L 07/27/22 03:50 Abs React Lymphs (Man) 0.0 K/mm3 07/27/22 03:50 Monocytes # (Manual) 0.3 K/mm3 (0.0-0.8) 07/27/22 03:50 Eosinophils # (Manual) 0.0 K/mm3 (0.0-0.4) 07/27/22 03:50 Basophils # (Manual) 0.0 K/mm3 (0.0-0.1) 07/27/22 03:50 Metamyelocytes # 0.2 K/mm3 07/27/22 03:50 Myelocytes # 0.0 K/mm3 07/27/22 03:50 Promyelocytes # 0.0 K/mm3 07/27/22 03:50 Blast Cells # 0.0 K/mm3 07/27/22 03:50 WBC Morphology Not Reportable 07/27/22 03:50 Hypersegmented Neuts Not Reportable 07/27/22 03:50 Hyposegmented Neuts Not Reportable 07/27/22 03:50 Hypogranular Neuts Not Reportable 07/27/22 03:50 Smudge Cells Not Reportable 07/27/22 03:50 Toxic Granulation Not Reportable 07/27/22 03:50 Toxic Vacuolation Not Reportable 07/27/22 03:50 Dohle Bodies Not Reportable 07/27/22 03:50 Pelger-Huet Anomaly Not Reportable 07/27/22 03:50 Jay Rods Not Reportable 07/27/22 03:50 Platelet Estimate Consistent w auto 07/27/22 03:50 Clumped Platelets Not Reportable 07/27/22 03:50 Plt Clumps, EDTA Not Reportable 07/27/22 03:50 Large Platelets Not Reportable 07/27/22 03:50 Giant Platelets Not Reportable 07/27/22 03:50 Platelet Satelliting Not Reportable 07/27/22 03:50 Plt Morphology Comment Not Reportable 07/27/22 03:50 RBC Morphology Not Reportable 07/27/22 03:50 Dimorphic RBCs Not Reportable 07/27/22 03:50 Polychromasia Not Reportable 07/27/22 03:50 Hypochromasia Not Reportable 07/27/22 03:50 Poikilocytosis Not Reportable 07/27/22 03:50 Anisocytosis Not Reportable 07/27/22 03:50 Microcytosis Not Reportable 07/27/22 03:50 Macrocytosis Not Reportable 07/27/22 03:50 Spherocytes Not Reportable 07/27/22 03:50 Pappenheimer Bodies Not Reportable 07/27/22 03:50 Sickle Cells Not Reportable 07/27/22 03:50 Target Cells Not Reportable 07/27/22 03:50 Tear Drop Cells Not Reportable 07/27/22 03:50 Ovalocytes Not Reportable 07/27/22 03:50 Helmet Cells Not Reportable 07/27/22 03:50 Reynolds-Stanberry Bodies Not Reportable 07/27/22 03:50 [place] Rings Not Reportable 07/27/22 03:50 Caliente Cells Not Reportable 07/27/22 03:50 Bite Cells Not Reportable 07/27/22 03:50 Crenated Cell Not Reportable 07/27/22 03:50 Elliptocytes Not Reportable 07/27/22 03:50 Acanthocytes (Spur) Not Reportable 07/27/22 03:50 Rouleaux Not Reportable 07/27/22 03:50 Hemoglobin C Crystals Not Reportable 07/27/22 03:50 Schistocytes Not Reportable 07/27/22 03:50 Malaria parasites Not Reportable 07/27/22 03:50 Peewee Bodies Not Reportable 07/27/22 03:50 Hem Pathologist Commnt No 07/27/22 03:50 PT 14.3 Sec. (12.2-14.9) 07/31/22 04:13 INR 0.97 (0.87-1.13) 07/31/22 04:13 ABG pH 7.513 pH Units (7.350-7.450) H 07/31/22 03:25 ABG pCO2 25.7 mm Hg 07/31/22 03:25 ABG pO2 64.1 mm Hg (80.0-90.0) L 07/31/22 03:25 ABG HCO3 20.2 mmol/L (20.0-26.0) 07/31/22 03:25 ABG O2 Saturation 95.4 % (95.0-99.0) 07/31/22 03:25 ABG O2 Content 13.9 (0.0-44) 07/31/22 03:25 ABG Base Excess -1.7 mmol/L (-2.0-3.0) 07/31/22 03:25 ABG Hemoglobin 10.5 gm/dl (14.0-18.0) L 07/31/22 03:25 ABG Carboxyhemoglobin 1.3 % (0.0-5.0) 07/31/22 03:25 ABG Methemoglobin 0.3 % (0.0-1.5) 07/31/22 03:25 VBG pH 7.362 (7.320-7.420) 07/25/22 19:37 Oxyhemoglobin 93.8 % (95.0-99.0) L 07/31/22 03:25 FiO2 28 % 07/31/22 03:25 Sodium 148 mmol/L (137-145) H 08/02/22 04:48 Potassium 3.4 mmol/L (3.6-5.0) L 08/02/22 04:48 Chloride 113.1 mmol/L (98-107) H 08/02/22 04:48 Carbon Dioxide 16 mmol/L (22-30) L 08/02/22 04:48 Anion Gap 22 mmol/L 08/02/22 04:48 BUN 45 mg/dL (9-20) H 08/02/22 04:48 Creatinine 1.3 mg/dL (0.8-1.3) 08/02/22 04:48 Estimated GFR 54 ml/min 08/02/22 04:48 BUN/Creatinine Ratio 35 % 08/02/22 04:48 Glucose 213 mg/dL (75-100) H 08/02/22 04:48 POC Glucose 193 mg/dL (70-105) H 08/01/22 23:34 Hemoglobin A1c 12.3 % (4-6) H 07/27/22 12:13 Lactic Acid 9.70 mmol/L (0.7-2.0) H* 07/26/22 15:36 Calcium 5.9 mg/dL (8.4-10.2) L* 08/02/22 04:48 Phosphorus 2.30 mg/dL (2.5-4.5) L 08/02/22 04:48 Magnesium 2.00 mg/dL (1.7-2.3) 08/02/22 04:48 Total Bilirubin 0.30 mg/dL (0.1-1.2) 07/27/22 03:50 AST 64 units/L (5-40) H 07/27/22 03:50 ALT 31 units/L (7-56) 07/27/22 03:50 Alkaline Phosphatase 61 units/L (35-129) 07/27/22 03:50 Ammonia 64.0 umol/L (25-60) H 07/25/22 19:37 Total Creatine Kinase 158 units/L (55-170) 07/25/22 19:37 CK-MB (CK-2) < 1.0 ng/mL (0.0-4.0) 07/25/22 19:37 CK-MB (CK-2) Rel Index 0.6 (0-4) 07/25/22 19:37 Troponin T 0.049 ng/mL (0.00-0.029) H D 07/26/22 15:36 Total Protein 4.1 g/dL (6.3-8.2) L D 07/27/22 03:50 Albumin 2.1 g/dL (3.9-5) L 07/27/22 03:50 Albumin/Globulin Ratio 1.1 % 07/27/22 03:50 Triglycerides 362 mg/dL (2-149) H 07/25/22 19:37 Cholesterol 126 mg/dL (50-199) 07/25/22 19:37 LDL Cholesterol Direct 44 mg/dL (50-130) L 07/25/22 19:37 HDL Cholesterol 34 mg/dL (40-59) L 07/25/22 19:37 Cholesterol/HDL Ratio 3.70 % 07/25/22 19:37 TSH 2.170 mlU/mL (0.270-4.200) 07/25/22 19:37 Free T4 1.18 ng/dL (0.76-1.46) 07/25/22 19:37 Urine Color Lin (Yellow) 07/26/22 08:31 Urine Turbidity Cloudy (Clear) 07/26/22 08:31 Specific [place] (Man) 1.010 (1.003-1.030) 07/26/22 08:31 Ur Protein (Man) <30 mg dl mg/dL (Negative) 07/26/22 08:31 Ur Ketones (Man) Negative (Negative) 07/26/22 08:31 Ur Nitrite (Man) Negative (Negative) 07/26/22 08:31 Ur Reducing Substances Not Reportable 07/26/22 08:31 Urine Bilirubin (Man) Negative (Negative) 07/26/22 08:31 Urine Ictotest Not Reportable 07/26/22 08:31 Leukocyte Esterase (Man) Trace (Negative) 07/26/22 08:31 Urine WBC (Auto) < 1.0 /HPF (0.0-6.0) 07/26/22 08:31 Urine RBC (Auto) 1.0 /HPF (0.0-6.0) 07/26/22 08:31 U Epithel Cells (Auto) 3.0 /HPF (0-13.0) 07/26/22 08:31 Urine RBC (Manual) 5-10 (Negative) 07/26/22 08:31 Ur Renal Epithelial Cell 3 /LPF 07/26/22 08:31 Urine Mucus Few /HPF 07/26/22 08:31 Urine Creatinine 118.4 mg/dL (0.1-20.0) H 07/26/22 18:10 Protein/Creatinin Ratio 1.23 07/26/22 18:10 Urine Sodium 108 mmol/L 07/26/22 18:10 Urine Total Protein 146 mg/dL (5-11.8) H 07/26/22 18:10 Yañez/IV: Voiding Method Indwelling Catheter Active Medications - Current Medications Current Medications: Generic Name Dose Route Start Last Admin Trade Name Freq PRN Reason Stop Dose Admin Acetaminophen 650 mg 07/26/22 00:31 07/31/22 23:30 Acetaminophen 325 Mg Tab PO 650 mg Q4H PRN Administration Pain MILD(1-3)/Fever >100.5/LANTIGUA Acetaminophen 650 mg 07/26/22 02:04 Acetaminophen 650 Mg Rect Supp [place] Q4H PRN Pain, Mild (1-3) Albuterol 2.5 mg 07/26/22 00:31 Albuterol 2.5 Mg/3 Ml Nebu IH Q3HRT PRN Shortness Of Breath Amiodarone HCl 200 mg 07/29/22 15:00 08/01/22 21:11 Amiodarone 200 Mg Tab PO 200 mg BID LIZZIE Administration Atorvastatin Calcium 40 mg 07/26/22 22:00 08/01/22 21:11 Atorvastatin 40 Mg Tab PO 40 mg QHS LIZZIE Administration Dextrose 50 ml 07/27/22 09:25 Dextrose 50% In Water (25gm) 50 Ml Syringe IV Q30MIN PRN Hypoglycemia Protocol Famotidine 10 mg 07/28/22 10:00 08/01/22 21:11 Famotidine 10 Mg Tab FEEDTUBE 10 mg BID LIZZIE Administration Hydrocortisone Sodium Succinate 50 mg 07/31/22 14:00 08/02/22 05:46 Hydrocortisone Sod Succ 100 Mg/2 Ml Vial IV 50 mg Q8HR LIZZIE Administration Cefepime HCl 2 gm in 100 mls @ 200 mls/hr 07/27/22 11:00 08/01/22 10:29 Cefepime/Ns 2 Gm/100 Ml IV 08/03/22 11:29 200 mls/hr Q24H LIZZIE Administration Protocol Insulin Glargine 30 units 07/28/22 22:00 08/01/22 21:11 Insulin Glargine 100 Units/Ml SUB-Q 30 units BID LIZZIE Administration Insulin Human Regular 0 units 07/27/22 12:00 08/02/22 05:50 Insulin Regular, Human 100 Units/1 Ml SUB-Q 3 units Q6H LIZZIE Administration Protocol Multi-Ingred Cream/Lotion/Oil/Oint 1 applic 07/27/22 03:17 07/27/22 03:35 Mineral Oil/Petrolatum, White Ophth Oint 3.5 Gm OU 1 applic PRN PRN Administration Dry Eye(s) Nitroglycerin 0.4 mg 07/26/22 00:31 Nitroglycerin 0.4 Mg Tab Subl SL Q5M PRN Chest Pain Ondansetron HCl 4 mg 07/26/22 00:31 Ondansetron 4 Mg/2 Ml Inj IV Q8H PRN Nausea And Vomiting Sodium Bicarbonate 650 mg 07/29/22 20:00 08/01/22 20:46 Sodium Bicarbonate 650 Mg Tab PO 650 mg TID LIZZIE Administration Sodium Chloride 10 ml 07/26/22 10:00 08/01/22 21:11 Sodium Chloride 0.9% 10 Ml Flush Syringe IV 10 ml BID LIZZIE Administration Sodium Chloride 10 ml 07/26/22 00:31 Sodium Chloride 0.9% 10 Ml Flush Syringe IV PRN PRN LINE FLUSH Nutrition/Malnutrition Assess - Dietary Evaluation Nutrition/Malnutrition Findings: Nutrition Notes Start: 07/26/22 10:25 Freq: Status: Active Protocol: Document 07/31/22 14:58 PEACE (Rec: 07/31/22 15:04 PEACE [id number]) Nutrition Notes Initial or Follow up Reassessment Current Diagnosis Acute Kidney Injury,Diabetes, Hypertension,Respiratory Failure,Hyperlipidemia Other Pertinent Diagnosis s/p cardiac arrest, s/p DKA, acute metabolic encephalopathy Current Diet TF - Glucerna 1.2 at 45ml/hr Labs/Tests Na 146 K 3.4 BUN 53 Cr 1.6 BG 151 Pertinent Medications 40mEq KCl Height 5 ft 5 in Weight 49.8 kg [place] Body Weight (kg) 61.81 BMI 18.2 Subjective/Other Information Observed Glucerna 1.2 infusing at goal rate; pt tolerating TF. MD ordered 250ml water flush q4h. Pt remains on vent support; renal function improving. Percent of energy/protein needs met: 93% energy 100% pro Burn Absent Trauma Absent #1 Nutrition Diagnosis Inadequate oral intake Diagnosis Progress(for reassessment Continues documentation) Is patient on ventilator? Yes Is Patient Ambulatory and/or Out of Bed No REE-([place]-St. Jeor-confined to bed) [phone] Calculation [facility] for [facility]ations [facility] Additional Notes Pro needs 0.8-1.2g/k-60g/ day Fluid needs per MD. Nutrition Intervention Nutrition Support: Continue Glucerna 1.2 at 45ml/ hr with 250ml water flush q4h until hypernatremia resolved. Kcal 1,296 Protein (gm) 65 Carbohydrates (gm) 124 Fat (gm) 65 Fluid (mL) 869 Fiber (gm) 17 Goal #1 TF tolerance Goal #2 TF to provide at least 75% energy and pro needs Follow-Up By: 08/07/22 Additional Comments F/U: stable TF, trach/PEG placement, vent status, renal function, BM
--- NOTE | 2022-08-01 11:03 | Consultation ---
History of Present Illness Consult date: 08/01/22 - History of present illness History of present illness: This is a 77-year-old male from a SNF facility with known past medical history of DM, paroxysmal atrial fibrillation, HTN, and CVA (2020) initially presented with AMS and Hyperglycemia. While in the ED, patient became obtunded with hypoxia and was intubated for airway protection. Post intubation patient PEA arrested and ROSC was achieved after approximately 13 minutes. Since admission patient has been unresponsive but family is requesting tracheostomy. PEGtube isin place but has not been used since admission. Past History Past Medical History: acute [place], diabetes, hypertension Past Surgical History: cholecystectomy Social history: no significant social history Family history: diabetes, hypertension Medications and Allergies Allergies Allergy/AdvReac Type Severity Reaction Status Date / Time aspirin Allergy Swelling Verified 02/15/20 13:24 iron Allergy Itching Verified 02/15/20 13:24 Home Medications Medication Instructions Recorded Confirmed Last Taken Type metFORMIN [Glucophage] 1,000 mg PO BID 02/11/14 02/15/20 02/14/20 History Acetaminophen [Acetaminophen ER 650 mg PO Q8HR PRN #20 tablet.er 10/21/19 02/15/20 Unknown Rx TAB] ALBUTEROL NEB's [Proventil 0.083% 2.5 mg IH Q3HRT PRN #30 nebu 03/09/20 Unknown Rx NEBS] Aspirin EC [Halfprin EC] 81 mg PO QDAY #30 tablet. 03/09/20 Unknown Rx AtorvaSTATin [Lipitor] 40 mg FEEDTUBE QHS #30 tablet 03/09/20 Unknown Rx Famotidine [Pepcid] 20 mg FEEDTUBE DAILY #30 tablet 03/09/20 Unknown Rx Insulin Glargine [Lantus VIAL] 50 units SUB-Q QAMDIAB #1 vial 03/09/20 Unknown Rx Insulin Glargine [Lantus VIAL] 50 units SUB-Q QHS #1 vial 03/09/20 Unknown Rx Insulin Regular, Human [HumuLIN R] 0 units SUB-Q Q6HR #1 vial 03/09/20 Unknown Rx Metoclopramide [Reglan ORAL LIQ] 5 mg FEEDTUBE Q6H PRN 30 Days 03/09/20 Unknown Rx Metoprolol [Lopressor TAB] 100 mg FEEDTUBE BID #60 tablet 03/09/20 Unknown Rx amLODIPine 10 mg FEEDTUBE QDAY #30 tablet 03/09/20 Unknown Rx traMADoL [Ultram 50 MG tab] 50 mg FEEDTUBE Q6HR PRN #10 tablet 03/09/20 Unknown Rx Active Meds: Active Medications Acetaminophen (Acetaminophen 325 Mg Tab) 650 mg PO Q4H PRN PRN Reason: Pain MILD(1-3)/Fever >100.5/LANTIGUA Last Admin: 07/31/22 23:30 Dose: 650 mg Acetaminophen (Acetaminophen 650 Mg Rect Supp) 650 mg [place] Q4H PRN PRN Reason: Pain, Mild (1-3) Albuterol (Albuterol 2.5 Mg/3 Ml Nebu) 2.5 mg IH Q3HRT PRN PRN Reason: Shortness Of Breath Amiodarone HCl (Amiodarone 200 Mg Tab) 200 mg PO BID [facility] Last Admin: 08/01/22 10:30 Dose: 200 mg Atorvastatin Calcium (Atorvastatin 40 Mg Tab) 40 mg PO QHS [facility] Last Admin: 07/31/22 21:04 Dose: 40 mg Dextrose (Dextrose 50% In Water (25gm) 50 Ml Syringe) 50 ml IV Q30MIN PRN; Protocol PRN Reason: Hypoglycemia Famotidine (Famotidine 10 Mg Tab) 10 mg FEEDTUBE BID [facility] Last Admin: 08/01/22 10:34 Dose: 10 mg Hydrocortisone Sodium Succinate (Hydrocortisone Sod Succ 100 Mg/2 Ml Vial) 50 mg IV Q8HR [facility] Last Admin: 08/01/22 05:47 Dose: 50 mg Cefepime HCl (Cefepime/Ns 2 Gm/100 Ml) 2 gm in 100 mls @ 200 mls/hr IV Q24H [facility]; Protocol Stop: 08/03/22 11:29 Last Admin: 08/01/22 10:29 Dose: 200 mls/hr Magnesium Sulfate (Magnesium Sulfate 4gm/100ml) 4 gm in 100 mls @ 25 mls/hr IV ONCE@0900 [facility] Stop: 08/01/22 13:00 Potassium Phosphate 15 mmol/ (Sodium Chloride) 255 mls @ 63.75 mls/hr IV ONCE@0930 [facility] Stop: 08/01/22 13:30 Insulin Glargine (Insulin Glargine 100 Units/Ml) 30 units SUB-Q BID [facility] Last Admin: 08/01/22 10:30 Dose: 30 units Insulin Human Regular (Insulin Regular, Human 100 Units/1 Ml) 0 units SUB-Q Q6H [facility]; Protocol Last Admin: 08/01/22 05:48 Dose: Not Given Multi-Ingred Cream/Lotion/Oil/Oint (Mineral Oil/Petrolatum, White Ophth Oint 3.5 Gm) 1 applic OU PRN PRN PRN Reason: Dry Eye(s) Last Admin: 07/27/22 03:35 Dose: 1 applic Nitroglycerin (Nitroglycerin 0.4 Mg Tab Subl) 0.4 mg SL Q5M PRN PRN Reason: Chest Pain Ondansetron HCl (Ondansetron 4 Mg/2 Ml Inj) 4 mg IV Q8H PRN PRN Reason: Nausea And Vomiting Potassium Chloride (Potassium Chloride 20 Meq Packet) 40 meq FEEDTUBE ONCE@1000 [facility] Stop: 08/01/22 14:00 Last Admin: 08/01/22 10:29 Dose: 40 meq Sodium Bicarbonate (Sodium Bicarbonate 650 Mg Tab) 650 mg PO TID [facility] Last Admin: 08/01/22 10:30 Dose: 650 mg Sodium Chloride (Sodium Chloride 0.9% 10 Ml Flush Syringe) 10 ml IV BID [facility] Last Admin: 08/01/22 10:29 Dose: 10 ml Sodium Chloride (Sodium Chloride 0.9% 10 Ml Flush Syringe) 10 ml IV PRN PRN PRN Reason: LINE FLUSH Exam Vital Signs Temp Pulse Resp BP Pulse Ox 98 F 130 H 16 110/70 96 07/25/22 19:20 07/25/22 19:20 07/25/22 19:20 07/25/22 19:20 07/25/22 19:20 - General physical appearance Positive: other - Eyes Positive: PERRL - Neck Positive: no masses, no bruits, trachea midline - Respiratory Positive: normal expansion, other (on ventillator) - Cardiovascular Rhythm: regular - Abdomen Abdomen: Present: soft, other (o upper abdo scrs. peg tube in place.). Absent: masses Results - Labs 08/01/22 04:17 08/01/22 04:17 Abnormal lab results 07/31/22 07/31/22 07/31/22 Range/Units 11:08 16:11 23:48 RBC (3.65-5.03) M/mm3 Hgb (11.8-15.2) gm/dl Hct (35.5-45.6) % RDW (13.2-15.2) % Plt Count (140-440) K/mm3 Sodium (137-145) mmol/L Potassium (3.6-5.0) mmol/L Chloride (98-107) mmol/L BUN (9-20) mg/dL Glucose (75-100) mg/dL POC Glucose 132 H 150 H 133 H (70-105) mg/dL Calcium (8.4-10.2) mg/dL Phosphorus (2.5-4.5) mg/dL Magnesium (1.7-2.3) mg/dL 08/01/22 08/01/22 Range/Units 04:17 04:17 RBC 3.62 L (3.65-5.03) M/mm3 Hgb 10.6 L (11.8-15.2) gm/dl Hct 31.8 L (35.5-45.6) % RDW 15.7 H (13.2-15.2) % Plt Count 90 L (140-440) K/mm3 Sodium 147 H (137-145) mmol/L Potassium 3.3 L (3.6-5.0) mmol/L Chloride 113.7 H (98-107) mmol/L BUN 46 H (9-20) mg/dL Glucose 141 H (75-100) mg/dL POC Glucose (70-105) mg/dL Calcium 6.0 L (8.4-10.2) mg/dL Phosphorus 2.00 L (2.5-4.5) mg/dL Magnesium 1.50 L (1.7-2.3) mg/dL Diabetes panel 08/01/22 Range/Units 04:17 Sodium 147 H (137-145) mmol/L Potassium 3.3 L (3.6-5.0) mmol/L Chloride 113.7 H (98-107) mmol/L Carbon Dioxide 22 (22-30) mmol/L BUN 46 H (9-20) mg/dL Creatinine 1.3 (0.8-1.3) mg/dL Glucose 141 H (75-100) mg/dL Calcium 6.0 L (8.4-10.2) mg/dL Calcium panel 08/01/22 Range/Units 04:17 Calcium 6.0 L (8.4-10.2) mg/dL Phosphorus 2.00 L (2.5-4.5) mg/dL Pituitary panel 08/01/22 Range/Units 04:17 Sodium 147 H (137-145) mmol/L Potassium 3.3 L (3.6-5.0) mmol/L Chloride 113.7 H (98-107) mmol/L Carbon Dioxide 22 (22-30) mmol/L BUN 46 H (9-20) mg/dL Creatinine 1.3 (0.8-1.3) mg/dL Glucose 141 H (75-100) mg/dL Calcium 6.0 L (8.4-10.2) mg/dL Adrenal panel 08/01/22 Range/Units 04:17 Sodium 147 H (137-145) mmol/L Potassium 3.3 L (3.6-5.0) mmol/L Chloride 113.7 H (98-107) mmol/L Carbon Dioxide 22 (22-30) mmol/L BUN 46 H (9-20) mg/dL Creatinine 1.3 (0.8-1.3) mg/dL Glucose 141 H (75-100) mg/dL Calcium 6.0 L (8.4-10.2) mg/dL Assessment and Plan Pt with hx of cva and with cardiac arrest on admission. will return later today todisscuss tracheostomy with . Procedure can bedone tomorrow or .
--- NOTE | 2022-08-01 12:01 | Progress Note ---
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 Serum creatinine 1.3 today, yesterdays was 1.6, UOP 1650 ml Renal ultrasound reviewed. No hydronephrosis. Urine lytes reviewed. Has proteinuria likely from uncontrolled DM Sodium level 147 today, yesterday's was 148 Increase free water flush to 250 ml every 4 hours S/P IVF Potassium and phosphorus in repletion DKA-S/P insulin drip. On SQ inuslin. Hypotension-S/P Norepi drip CXR today- no acute findings Acidosis-to correct with DKA management Obtain daily weights Monitor I/O's daily Avoid nephrotoxic agents Continue to monitor renal function closely No acute indication for [employer] Plan of care reviewed by Dr. Isaacs Subjective Date of service: 08/01/22 Principal diagnosis: Hypernatremia, ARF Interval history: Patient intubated, at bedside, reviewed renal labs and lytes Objective - Vital Signs Vital signs: Vital Signs - 12hr 07/31/22 08/01/22 08/01/22 23:58 00:00 01:00 Temperature 99.8 F H Pulse Rate 91 H 90 120 H Pulse Rate [ From Monitor] Respiratory 30 H 36 H Rate Blood Pressure 141/69 124/60 144/72 O2 Sat by Pulse 97 97 90 Oximetry 08/01/22 08/01/22 08/01/22 02:00 03:00 03:30 Temperature Pulse Rate 102 H 94 H 90 Pulse Rate [ From Monitor] Respiratory 37 H 33 H Rate Blood Pressure 134/66 132/71 O2 Sat by Pulse 91 95 Oximetry 08/01/22 08/01/22 08/01/22 03:31 04:00 04:42 Temperature 98.8 F Pulse Rate 98 H 108 H Pulse Rate [ From Monitor] Respiratory 24 Rate Blood Pressure 139/69 139/69 O2 Sat by Pulse 97 98 96 Oximetry 08/01/22 08/01/22 08/01/22 05:00 06:00 07:00 Temperature Pulse Rate 102 H 95 H 93 H Pulse Rate [ From Monitor] Respiratory 34 H 24 31 H Rate Blood Pressure 143/71 139/72 153/83 O2 Sat by Pulse 91 95 95 Oximetry 08/01/22 08/01/22 08/01/22 07:13 08:00 08:52 Temperature 98.7 F Pulse Rate 94 H 95 H Pulse Rate [ 91 H From Monitor] Respiratory 35 H Rate Blood Pressure 160/83 160/83 O2 Sat by Pulse 95 95 Oximetry 08/01/22 08/01/22 08/01/22 09:00 10:00 11:00 Temperature Pulse Rate 96 H 94 H 94 H Pulse Rate [ From Monitor] Respiratory 42 H 29 H 35 H Rate Blood Pressure 164/89 174/95 160/91 O2 Sat by Pulse 90 95 95 Oximetry 08/01/22 11:40 Temperature 99.1 F Pulse Rate Pulse Rate [ From Monitor] Respiratory Rate Blood Pressure O2 Sat by Pulse Oximetry - General Appearance General appearance: intubated EENT: ATNC Neck: no JVD Respiratory: Present: Decreased Breath Sounds, Other (intubated) Cardiology: S1S2 Gastrointestinal: hypoactive bowel sounds Integumentary: warm and dry Neurologic: other (Opens eyes, intubated) Musculoskeletal: joint swelling, other (edema with blistering to feet) - Lab 08/01/22 04:17 08/01/22 04:17 Most recent lab results ABG pH 7.513 pH Units (7.350-7.450) H 07/31/22 03:25 ABG pCO2 25.7 mm Hg 07/31/22 03:25 ABG pO2 64.1 mm Hg (80.0-90.0) L 07/31/22 03:25 ABG HCO3 20.2 mmol/L (20.0-26.0) 07/31/22 03:25 ABG O2 Saturation 95.4 % (95.0-99.0) 07/31/22 03:25 Calcium 6.0 mg/dL (8.4-10.2) L 08/01/22 04:17 Phosphorus 2.00 mg/dL (2.5-4.5) L 08/01/22 04:17 Magnesium 1.50 mg/dL (1.7-2.3) L 08/01/22 04:17 Urine Creatinine 118.4 mg/dL (0.1-20.0) H 07/26/22 18:10 Urine Sodium 108 mmol/L 07/26/22 18:10 Urine Total Protein 146 mg/dL (5-11.8) H 07/26/22 18:10 Medications & Allergies - Medications Allergies/Adverse Reactions: Allergies aspirin Allergy (Verified 02/15/20 13:24) Swelling iron Allergy (Verified 02/15/20 13:24) Itching Home Medications: Home Medications Medication Instructions Recorded Confirmed Last Taken Type metFORMIN [Glucophage] 1,000 mg PO BID 02/11/14 02/15/20 02/14/20 History Acetaminophen [Acetaminophen ER 650 mg PO Q8HR PRN #20 tablet.er 10/21/19 Unknown Rx TAB] ALBUTEROL NEB's [Proventil 0.083% 2.5 mg IH Q3HRT PRN #30 nebu 03/09/20 Unknown Rx NEBS] Aspirin EC [Halfprin EC] 81 mg PO QDAY #30 tablet. 03/09/20 Unknown Rx AtorvaSTATin [Lipitor] 40 mg FEEDTUBE QHS #30 tablet 03/09/20 Unknown Rx Famotidine [Pepcid] 20 mg FEEDTUBE DAILY #30 tablet 03/09/20 Unknown Rx Insulin Glargine [Lantus VIAL] 50 units SUB-Q QAMDIAB #1 vial 03/09/20 Unknown Rx Insulin Glargine [Lantus VIAL] 50 units SUB-Q QHS #1 vial 03/09/20 Unknown Rx Insulin Regular, Human [HumuLIN R] 0 units SUB-Q Q6HR #1 vial 03/09/20 Unknown Rx Metoclopramide [Reglan ORAL LIQ] 5 mg FEEDTUBE Q6H PRN 30 Days 03/09/20 Unknown Rx Metoprolol [Lopressor TAB] 100 mg FEEDTUBE BID #60 tablet 03/09/20 Unknown Rx amLODIPine 10 mg FEEDTUBE QDAY #30 tablet 03/09/20 Unknown Rx traMADoL [Ultram 50 MG tab] 50 mg FEEDTUBE Q6HR PRN #10 tablet 03/09/20 Unknown Rx Active Medications: Generic Name Dose Route Start Last Admin Trade Name Freq PRN Reason Stop Dose Admin Acetaminophen 650 mg 07/26/22 00:31 07/31/22 23:30 Acetaminophen 325 Mg Tab PO 650 mg Q4H PRN Administration Pain MILD(1-3)/Fever >100.5/LANTIGUA Acetaminophen 650 mg 07/26/22 02:04 Acetaminophen 650 Mg Rect Supp [place] Q4H PRN Pain, Mild (1-3) Albuterol 2.5 mg 07/26/22 00:31 Albuterol 2.5 Mg/3 Ml Nebu IH Q3HRT PRN Shortness Of Breath Amiodarone HCl 200 mg 07/29/22 15:00 08/01/22 10:30 Amiodarone 200 Mg Tab PO 200 mg BID LIZZEI Administration Atorvastatin Calcium 40 mg 07/26/22 22:00 07/31/22 21:04 Atorvastatin 40 Mg Tab PO 40 mg QHS LIZZIE Administration Dextrose 50 ml 07/27/22 09:25 Dextrose 50% In Water (25gm) 50 Ml Syringe IV Q30MIN PRN Hypoglycemia Protocol Famotidine 10 mg 07/28/22 10:00 08/01/22 10:34 Famotidine 10 Mg Tab FEEDTUBE 10 mg BID LIZZIE Administration Hydrocortisone Sodium Succinate 50 mg 07/31/22 14:00 08/01/22 05:47 Hydrocortisone Sod Succ 100 Mg/2 Ml Vial IV 50 mg Q8HR LIZZIE Administration Cefepime HCl 2 gm in 100 mls @ 200 mls/hr 07/27/22 11:00 08/01/22 10:29 Cefepime/Ns 2 Gm/100 Ml IV 08/03/22 11:29 200 mls/hr Q24H LIZZIE Administration Protocol Magnesium Sulfate 4 gm in 100 mls @ 25 mls/hr 08/01/22 09:00 08/01/22 11:08 Magnesium Sulfate 4gm/100ml IV 08/01/22 13:00 25 mls/hr ONCE@0900 LIZZIE Administration Potassium Phosphate 15 mmol/ 255 mls @ 63.75 mls/hr 08/01/22 09:30 Sodium Chloride IV 08/01/22 13:30 ONCE@0930 LIZZIE Insulin Glargine 30 units 07/28/22 22:00 08/01/22 10:30 Insulin Glargine 100 Units/Ml SUB-Q 30 units BID LIZZIE Administration Insulin Human Regular 0 units 07/27/22 12:00 08/01/22 05:48 Insulin Regular, Human 100 Units/1 Ml SUB-Q Not Given Q6H [facility] Protocol Multi-Ingred Cream/Lotion/Oil/Oint 1 applic 07/27/22 03:17 07/27/22 03:35 Mineral Oil/Petrolatum, White Ophth Oint 3.5 Gm OU 1 applic PRN PRN Administration Dry Eye(s) Nitroglycerin 0.4 mg 07/26/22 00:31 Nitroglycerin 0.4 Mg Tab Subl SL Q5M PRN Chest Pain Ondansetron HCl 4 mg 07/26/22 00:31 Ondansetron 4 Mg/2 Ml Inj IV Q8H PRN Nausea And Vomiting Potassium Chloride 40 meq 08/01/22 10:00 08/01/22 10:29 Potassium Chloride 20 Meq Packet FEEDTUBE 08/01/22 14:00 40 meq ONCE@1000 LIZZIE Administration Sodium Bicarbonate 650 mg 07/29/22 20:00 08/01/22 10:30 Sodium Bicarbonate 650 Mg Tab PO 650 mg TID LIZZIE Administration Sodium Chloride 10 ml 07/26/22 10:00 08/01/22 10:29 Sodium Chloride 0.9% 10 Ml Flush Syringe IV 10 ml BID LIZZIE Administration Sodium Chloride 10 ml 07/26/22 00:31 Sodium Chloride 0.9% 10 Ml Flush Syringe IV PRN PRN LINE FLUSH
--- NOTE | 2022-08-01 13:19 | Progress Note ---
Assessment and Plan 77 y/o male with cardiac arrest, intubated, not sedated with multisystem organ failure 08/01/22: Follow up surgery recs. Continue supportive care. 07/31/22: Supportive care. Surgery consult for trach and peg. Renal function continues to improve. 07/30/22: Continue supportive measures. Family wants aggressive measures despite MRI findings so needs consult to surgery for trach and peg. Will drop steroids down to 25q8 or 50q12 Sunday. Continue volume as renal function is improving. needs more free water if possible. 07/29/22: Drop steroids to 50q8 starting today. CBC not checked, need to evaluate Platelets. Need to correct electrolytes as well. Family is likely going to want trach and peg based on earlier conversations but awaiting more family. Given recent MRI results, prognosis is very poor. 07/28/22: Hold on Volume today. Drop steroids down to 50q8 starting tomorrow. Follow up MRI. EEG results still pending. Platelets still dropping but no evidence of bleeding. Continue abx therapy. Continue feeds. Prognosis is still guarded. 07/27/22: more volume again today. Echo showed normal EF. Wean pressors for MAPs >65, follow up EEg results. Hopeful to get head CT today. Platelets dropped today, not on heparin. Could be sepsis related. If head CT negative, may need to evaluate abdomen around peg. Will start trickle feeds today and transition of insulin drip. Prognosis is still guarded. 1. IVF resusciation with LR 2. Insulin drip and continue NPO state 3. Attempt to wean pressors for MAPs greater than 65 4. Monitor urine output 5. Broaden abx therapy given current clinical state 6. Follow up echo report 7. Agree with stress dose steroids 8. No sedation 9. EEG pending Overall prognosis is guarded to poor, especially given current clinical exam CCT 31 minutes. Subjective Date of service: 08/01/22 Principal diagnosis: Hypernatremia, ARF Interval history: No acute events. Surgery saw this am Objective Vital Signs - 12hr 08/01/22 08/01/22 08/01/22 02:00 03:00 03:30 Temperature Pulse Rate 102 H 94 H 90 Pulse Rate [ From Monitor] Respiratory 37 H 33 H Rate Blood Pressure 134/66 132/71 O2 Sat by Pulse 91 95 Oximetry 08/01/22 08/01/22 08/01/22 03:31 04:00 04:42 Temperature 98.8 F Pulse Rate 98 H 108 H Pulse Rate [ From Monitor] Respiratory 24 Rate Blood Pressure 139/69 139/69 O2 Sat by Pulse 97 98 96 Oximetry 08/01/22 08/01/22 08/01/22 05:00 06:00 07:00 Temperature Pulse Rate 102 H 95 H 93 H Pulse Rate [ From Monitor] Respiratory 34 H 24 31 H Rate Blood Pressure 143/71 139/72 153/83 O2 Sat by Pulse 91 95 95 Oximetry 08/01/22 08/01/22 08/01/22 07:13 08:00 08:52 Temperature 98.7 F Pulse Rate 94 H 95 H Pulse Rate [ 91 H From Monitor] Respiratory 35 H Rate Blood Pressure 160/83 160/83 O2 Sat by Pulse 95 95 Oximetry 08/01/22 08/01/22 08/01/22 09:00 10:00 11:00 Temperature Pulse Rate 96 H 94 H 94 H Pulse Rate [ From Monitor] Respiratory 42 H 29 H 35 H Rate Blood Pressure 164/89 174/95 160/91 O2 Sat by Pulse 90 95 95 Oximetry 08/01/22 08/01/22 11:40 12:00 Temperature 99.1 F Pulse Rate 89 Pulse Rate [ 106 H From Monitor] Respiratory 30 H Rate Blood Pressure 146/79 O2 Sat by Pulse 96 Oximetry CBC and BMP: 08/01/22 04:17 08/01/22 04:17 ABG, PT/INR, D-dimer: ABG ABG pH 7.513 pH Units (7.350-7.450) H 07/31/22 03:25 ABG pCO2 25.7 mm Hg 07/31/22 03:25 ABG pO2 64.1 mm Hg (80.0-90.0) L 07/31/22 03:25 ABG O2 Saturation 95.4 % (95.0-99.0) 07/31/22 03:25 PT/INR, D-dimer PT 14.3 Sec. (12.2-14.9) 07/31/22 04:13 INR 0.97 (0.87-1.13) 07/31/22 04:13 Abnormal lab findings: Abnormal Labs 07/25/22 07/25/22 07/25/22 19:37 19:37 19:37 WBC 18.8 H RBC 6.31 H Hgb 18.8 H Hct 57.3 H MCV MCHC RDW Plt Count [place] # (Auto) 1.4 H Seg Neutrophils % 70.7 H Seg Neuts % (Manual) Lymphocytes % (Manual) Seg Neutrophils # 13.3 H Seg Neutrophils # Man Lymphocytes # (Manual) ABG pH ABG pO2 ABG HCO3 ABG O2 Saturation ABG Base Excess ABG Hemoglobin Oxyhemoglobin Sodium 149 H Potassium Chloride 110.3 H Carbon Dioxide 18 L BUN 73 H Creatinine 3.3 H Glucose 761 H* POC Glucose Hemoglobin A1c Lactic Acid Calcium 10.6 H Phosphorus Magnesium 3.10 H AST 63 H ALT 64 H Ammonia Troponin T 0.072 H Total Protein 9.0 H Albumin Triglycerides 362 H LDL Cholesterol Direct 44 L HDL Cholesterol 34 L Urine Creatinine Urine Total Protein 07/25/22 07/25/22 07/25/22 19:37 21:08 22:10 WBC RBC Hgb Hct MCV MCHC RDW Plt Count [place] # (Auto) Seg Neutrophils % Seg Neuts % (Manual) Lymphocytes % (Manual) Seg Neutrophils # Seg Neutrophils # Man Lymphocytes # (Manual) ABG pH ABG pO2 ABG HCO3 ABG O2 Saturation ABG Base Excess ABG Hemoglobin Oxyhemoglobin Sodium 155 H Potassium Chloride 113.1 H Carbon Dioxide 14 L BUN 74 H Creatinine 3.5 H Glucose 734 H* POC Glucose Hemoglobin A1c Lactic Acid 12.70 H* Calcium Phosphorus Magnesium AST ALT Ammonia 64.0 H Troponin T Total Protein Albumin Triglycerides LDL Cholesterol Direct HDL Cholesterol Urine Creatinine Urine Total Protein 07/25/22 07/25/22 07/26/22 22:20 23:29 00:13 WBC RBC Hgb Hct MCV MCHC RDW Plt Count [place] # (Auto) Seg Neutrophils % Seg Neuts % (Manual) Lymphocytes % (Manual) Seg Neutrophils # Seg Neutrophils # Man Lymphocytes # (Manual) ABG pH 7.342 L ABG pO2 318.2 H ABG HCO3 14.4 L ABG O2 Saturation 99.5 H ABG Base Excess -9.4 L ABG Hemoglobin Oxyhemoglobin Sodium 157 H Potassium 3.1 L D Chloride 114.0 H Carbon Dioxide 21 L D BUN 72 H Creatinine 3.7 H Glucose 615 H* POC Glucose > 600 H Hemoglobin A1c Lactic Acid Calcium Phosphorus Magnesium AST ALT Ammonia Troponin T Total Protein Albumin Triglycerides LDL Cholesterol Direct HDL Cholesterol Urine Creatinine Urine Total Protein 07/26/22 07/26/22 07/26/22 00:13 00:38 00:39 WBC 21.4 H RBC 5.88 H Hgb 17.2 H Hct 55.0 H MCV MCHC 31 L RDW 16.0 H Plt Count [place] # (Auto) Seg Neutrophils % Seg Neuts % (Manual) 77.0 H Lymphocytes % (Manual) 13.0 L Seg Neutrophils # Seg Neutrophils # Man 16.5 H Lymphocytes # (Manual) ABG pH ABG pO2 ABG HCO3 ABG O2 Saturation ABG Base Excess ABG Hemoglobin Oxyhemoglobin Sodium Potassium Chloride Carbon Dioxide BUN Creatinine Glucose POC Glucose 517 H Hemoglobin A1c Lactic Acid 9.10 H* Calcium Phosphorus Magnesium AST ALT Ammonia Troponin T Total Protein Albumin Triglycerides LDL Cholesterol Direct HDL Cholesterol Urine Creatinine Urine Total Protein 07/26/22 07/26/22 07/26/22 00:39 01:32 02:28 WBC RBC Hgb Hct MCV MCHC RDW Plt Count [place] # (Auto) Seg Neutrophils % Seg Neuts % (Manual) Lymphocytes % (Manual) Seg Neutrophils # Seg Neutrophils # Man Lymphocytes # (Manual) ABG pH ABG pO2 ABG HCO3 ABG O2 Saturation ABG Base Excess ABG Hemoglobin Oxyhemoglobin Sodium Potassium Chloride Carbon Dioxide BUN Creatinine Glucose POC Glucose 460 H 237 H Hemoglobin A1c Lactic Acid Calcium Phosphorus 1.20 L D Magnesium 4.10 H AST ALT Ammonia Troponin T Total Protein Albumin Triglycerides LDL Cholesterol Direct HDL Cholesterol Urine Creatinine Urine Total Protein 07/26/22 07/26/22 07/26/22 03:03 03:07 04:11 WBC RBC Hgb Hct MCV MCHC RDW Plt Count [place] # (Auto) Seg Neutrophils % Seg Neuts % (Manual) Lymphocytes % (Manual) Seg Neutrophils # Seg Neutrophils # Man Lymphocytes # (Manual) ABG pH ABG pO2 ABG HCO3 ABG O2 Saturation ABG Base Excess ABG Hemoglobin Oxyhemoglobin Sodium Potassium Chloride Carbon Dioxide BUN Creatinine Glucose POC Glucose 433 H 370 H 338 H Hemoglobin A1c Lactic Acid Calcium Phosphorus Magnesium AST ALT Ammonia Troponin T Total Protein Albumin Triglycerides LDL Cholesterol Direct HDL Cholesterol Urine Creatinine Urine Total Protein 07/26/22 07/26/22 07/26/22 04:35 04:35 04:40 WBC RBC Hgb Hct MCV MCHC RDW Plt Count [place] # (Auto) Seg Neutrophils % Seg Neuts % (Manual) Lymphocytes % (Manual) Seg Neutrophils # Seg Neutrophils # Man Lymphocytes # (Manual) ABG pH 7.301 L ABG pO2 178.2 H ABG HCO3 11.0 L ABG O2 Saturation 99.1 H ABG Base Excess -13.3 L ABG Hemoglobin Oxyhemoglobin Sodium 162 H* Potassium 3.0 L Chloride 124.8 H Carbon Dioxide 18 L BUN 69 H Creatinine 3.9 H Glucose 385 H POC Glucose Hemoglobin A1c Lactic Acid 8.20 H* Calcium 7.8 L Phosphorus Magnesium AST ALT Ammonia Troponin T Total Protein Albumin Triglycerides LDL Cholesterol Direct HDL Cholesterol Urine Creatinine Urine Total Protein 07/26/22 07/26/22 07/26/22 05:01 06:14 06:52 WBC RBC Hgb Hct MCV MCHC RDW Plt Count [place] # (Auto) Seg Neutrophils % Seg Neuts % (Manual) Lymphocytes % (Manual) Seg Neutrophils # Seg Neutrophils # Man Lymphocytes # (Manual) ABG pH ABG pO2 ABG HCO3 ABG O2 Saturation ABG Base Excess ABG Hemoglobin Oxyhemoglobin Sodium Potassium Chloride Carbon Dioxide BUN Creatinine Glucose POC Glucose 347 H 300 H 278 H Hemoglobin A1c Lactic Acid Calcium Phosphorus Magnesium AST ALT Ammonia Troponin T Total Protein Albumin Triglycerides LDL Cholesterol Direct HDL Cholesterol Urine Creatinine Urine Total Protein 07/26/22 07/26/22 07/26/22 07:59 08:58 10:04 WBC RBC Hgb Hct MCV MCHC RDW Plt Count [place] # (Auto) Seg Neutrophils % Seg Neuts % (Manual) Lymphocytes % (Manual) Seg Neutrophils # Seg Neutrophils # Man Lymphocytes # (Manual) ABG pH ABG pO2 ABG HCO3 ABG O2 Saturation ABG Base Excess ABG Hemoglobin Oxyhemoglobin Sodium Potassium Chloride Carbon Dioxide BUN Creatinine Glucose POC Glucose 269 H 277 H 244 H Hemoglobin A1c Lactic Acid Calcium Phosphorus Magnesium AST ALT Ammonia Troponin T Total Protein Albumin Triglycerides LDL Cholesterol Direct HDL Cholesterol Urine Creatinine Urine Total Protein 07/26/22 07/26/22 07/26/22 11:03 11:53 13:08 WBC RBC Hgb Hct MCV MCHC RDW Plt Count [place] # (Auto) Seg Neutrophils % Seg Neuts % (Manual) Lymphocytes % (Manual) Seg Neutrophils # Seg Neutrophils # Man Lymphocytes # (Manual) ABG pH ABG pO2 ABG HCO3 ABG O2 Saturation ABG Base Excess ABG Hemoglobin Oxyhemoglobin Sodium Potassium Chloride Carbon Dioxide BUN Creatinine Glucose POC Glucose 253 H 213 H 194 H Hemoglobin A1c Lactic Acid Calcium Phosphorus Magnesium AST ALT Ammonia Troponin T Total Protein Albumin Triglycerides LDL Cholesterol Direct HDL Cholesterol Urine Creatinine Urine Total Protein 07/26/22 07/26/22 07/26/22 14:24 14:56 14:57 WBC RBC Hgb Hct MCV MCHC RDW Plt Count [place] # (Auto) Seg Neutrophils % Seg Neuts % (Manual) Lymphocytes % (Manual) Seg Neutrophils # Seg Neutrophils # Man Lymphocytes # (Manual) ABG pH ABG pO2 ABG HCO3 ABG O2 Saturation ABG Base Excess ABG Hemoglobin Oxyhemoglobin Sodium Potassium Chloride Carbon Dioxide BUN Creatinine Glucose POC Glucose 185 H 236 H 207 H Hemoglobin A1c Lactic Acid Calcium Phosphorus Magnesium AST ALT Ammonia Troponin T Total Protein Albumin Triglycerides LDL Cholesterol Direct HDL Cholesterol Urine Creatinine Urine Total Protein 07/26/22 07/26/22 07/26/22 15:36 15:36 15:36 WBC RBC Hgb Hct MCV MCHC RDW Plt Count [place] # (Auto) Seg Neutrophils % Seg Neuts % (Manual) Lymphocytes % (Manual) Seg Neutrophils # Seg Neutrophils # Man Lymphocytes # (Manual) ABG pH ABG pO2 ABG HCO3 ABG O2 Saturation ABG Base Excess ABG Hemoglobin Oxyhemoglobin Sodium 160 H Potassium Chloride 126.2 H Carbon Dioxide 18 L BUN 59 H Creatinine 3.2 H Glucose 227 H POC Glucose Hemoglobin A1c Lactic Acid 9.70 H* Calcium 7.1 L Phosphorus Magnesium AST ALT Ammonia Troponin T 0.049 H D Total Protein Albumin Triglycerides LDL Cholesterol Direct HDL Cholesterol Urine Creatinine Urine Total Protein 07/26/22 07/26/22 07/26/22 15:57 16:32 17:04 WBC RBC Hgb Hct MCV MCHC RDW Plt Count [place] # (Auto) Seg Neutrophils % Seg Neuts % (Manual) Lymphocytes % (Manual) Seg Neutrophils # Seg Neutrophils # Man Lymphocytes # (Manual) ABG pH ABG pO2 ABG HCO3 ABG O2 Saturation ABG Base Excess ABG Hemoglobin Oxyhemoglobin Sodium Potassium Chloride Carbon Dioxide BUN Creatinine Glucose POC Glucose 207 H 189 H 219 H Hemoglobin A1c Lactic Acid Calcium Phosphorus Magnesium AST ALT Ammonia Troponin T Total Protein Albumin Triglycerides LDL Cholesterol Direct HDL Cholesterol Urine Creatinine Urine Total Protein 07/26/22 07/26/22 07/26/22 18:00 18:10 18:52 WBC RBC Hgb Hct MCV MCHC RDW Plt Count [place] # (Auto) Seg Neutrophils % Seg Neuts % (Manual) Lymphocytes % (Manual) Seg Neutrophils # Seg Neutrophils # Man Lymphocytes # (Manual) ABG pH ABG pO2 ABG HCO3 ABG O2 Saturation ABG Base Excess ABG Hemoglobin Oxyhemoglobin Sodium Potassium Chloride Carbon Dioxide BUN Creatinine Glucose POC Glucose 197 H 194 H Hemoglobin A1c Lactic Acid Calcium Phosphorus Magnesium AST ALT Ammonia Troponin T Total Protein Albumin Triglycerides LDL Cholesterol Direct HDL Cholesterol Urine Creatinine 118.4 H Urine Total Protein 146 H 07/26/22 07/26/22 07/26/22 20:47 21:30 21:51 WBC RBC Hgb Hct MCV MCHC RDW Plt Count [place] # (Auto) Seg Neutrophils % Seg Neuts % (Manual) Lymphocytes % (Manual) Seg Neutrophils # Seg Neutrophils # Man Lymphocytes # (Manual) ABG pH ABG pO2 ABG HCO3 ABG O2 Saturation ABG Base Excess ABG Hemoglobin Oxyhemoglobin Sodium 155 H Potassium Chloride 123.5 H Carbon Dioxide 16 L BUN 53 H Creatinine 2.9 H Glucose 185 H POC Glucose 134 H 124 H Hemoglobin A1c Lactic Acid Calcium 7.0 L Phosphorus Magnesium AST ALT Ammonia Troponin T Total Protein Albumin Triglycerides LDL Cholesterol Direct HDL Cholesterol Urine Creatinine Urine Total Protein 07/26/22 07/26/22 07/27/22 22:47 23:52 00:45 WBC RBC Hgb Hct MCV MCHC RDW Plt Count [place] # (Auto) Seg Neutrophils % Seg Neuts % (Manual) Lymphocytes % (Manual) Seg Neutrophils # Seg Neutrophils # Man Lymphocytes # (Manual) ABG pH ABG pO2 ABG HCO3 ABG O2 Saturation ABG Base Excess ABG Hemoglobin Oxyhemoglobin Sodium 155 H Potassium Chloride 124.2 H Carbon Dioxide 19 L BUN 53 H Creatinine 2.5 H Glucose 168 H POC Glucose 138 H 150 H Hemoglobin A1c Lactic Acid Calcium 6.7 L Phosphorus Magnesium AST ALT Ammonia Troponin T Total Protein Albumin Triglycerides LDL Cholesterol Direct HDL Cholesterol Urine Creatinine Urine Total Protein 07/27/22 07/27/22 07/27/22 00:58 02:45 03:50 WBC 15.4 H RBC Hgb Hct MCV MCHC RDW 15.3 H Plt Count 60 L [place] # (Auto) Seg Neutrophils % Seg Neuts % (Manual) 78.0 H Lymphocytes % (Manual) 3.0 L Seg Neutrophils # Seg Neutrophils # Man 12.0 H Lymphocytes # (Manual) 0.5 L ABG pH ABG pO2 ABG HCO3 ABG O2 Saturation ABG Base Excess ABG Hemoglobin Oxyhemoglobin Sodium Potassium Chloride Carbon Dioxide BUN Creatinine Glucose POC Glucose 153 H 150 H Hemoglobin A1c Lactic Acid Calcium Phosphorus Magnesium AST ALT Ammonia Troponin T Total Protein Albumin Triglycerides LDL Cholesterol Direct HDL Cholesterol Urine Creatinine Urine Total Protein 07/27/22 07/27/22 07/27/22 03:50 03:55 04:57 WBC RBC Hgb Hct MCV MCHC RDW Plt Count [place] # (Auto) Seg Neutrophils % Seg Neuts % (Manual) Lymphocytes % (Manual) Seg Neutrophils # Seg Neutrophils # Man Lymphocytes # (Manual) ABG pH ABG pO2 110.1 H ABG HCO3 13.3 L ABG O2 Saturation ABG Base Excess -9.0 L ABG Hemoglobin 13.1 L Oxyhemoglobin Sodium 154 H Potassium Chloride 123.0 H Carbon Dioxide 19 L BUN 55 H Creatinine 2.8 H Glucose 153 H POC Glucose 112 H Hemoglobin A1c Lactic Acid Calcium 6.8 L Phosphorus 1.30 L Magnesium AST 64 H ALT Ammonia Troponin T Total Protein 4.1 L D Albumin 2.1 L Triglycerides LDL Cholesterol Direct HDL Cholesterol Urine Creatinine Urine Total Protein 07/27/22 07/27/22 07/27/22 08:22 09:30 10:49 WBC RBC Hgb Hct MCV MCHC RDW Plt Count [place] # (Auto) Seg Neutrophils % Seg Neuts % (Manual) Lymphocytes % (Manual) Seg Neutrophils # Seg Neutrophils # Man Lymphocytes # (Manual) ABG pH ABG pO2 ABG HCO3 ABG O2 Saturation ABG Base Excess ABG Hemoglobin Oxyhemoglobin Sodium Potassium Chloride Carbon Dioxide BUN Creatinine Glucose POC Glucose 146 H 153 H 163 H Hemoglobin A1c Lactic Acid Calcium Phosphorus Magnesium AST ALT Ammonia Troponin T Total Protein Albumin Triglycerides LDL Cholesterol Direct HDL Cholesterol Urine Creatinine Urine Total Protein 07/27/22 07/27/22 07/27/22 12:13 12:44 17:17 WBC RBC Hgb Hct MCV MCHC RDW Plt Count [place] # (Auto) Seg Neutrophils % Seg Neuts % (Manual) Lymphocytes % (Manual) Seg Neutrophils # Seg Neutrophils # Man Lymphocytes # (Manual) ABG pH ABG pO2 ABG HCO3 ABG O2 Saturation ABG Base Excess ABG Hemoglobin Oxyhemoglobin Sodium Potassium Chloride Carbon Dioxide BUN Creatinine Glucose POC Glucose 190 H 287 H Hemoglobin A1c 12.3 H Lactic Acid Calcium Phosphorus Magnesium AST ALT Ammonia Troponin T Total Protein Albumin Triglycerides LDL Cholesterol Direct HDL Cholesterol Urine Creatinine Urine Total Protein 07/28/22 07/28/22 07/28/22 00:22 03:58 04:05 WBC RBC Hgb Hct MCV MCHC RDW Plt Count [place] # (Auto) Seg Neutrophils % Seg Neuts % (Manual) Lymphocytes % (Manual) Seg Neutrophils # Seg Neutrophils # Man Lymphocytes # (Manual) ABG pH ABG pO2 171.2 H ABG HCO3 12.3 L ABG O2 Saturation 99.2 H ABG Base Excess -9.7 L ABG Hemoglobin 10.9 L Oxyhemoglobin Sodium 148 H Potassium Chloride 117.0 H Carbon Dioxide 16 L BUN 74 H Creatinine 3.2 H Glucose 471 H POC Glucose 379 H Hemoglobin A1c Lactic Acid Calcium 6.2 L Phosphorus Magnesium AST ALT Ammonia Troponin T Total Protein Albumin Triglycerides LDL Cholesterol Direct HDL Cholesterol Urine Creatinine Urine Total Protein 07/28/22 07/28/22 07/28/22 04:05 05:36 12:50 WBC 13.9 H RBC Hgb 11.2 L Hct MCV MCHC 31 L RDW 15.9 H Plt Count 48 L [place] # (Auto) Seg Neutrophils % Seg Neuts % (Manual) Lymphocytes % (Manual) Seg Neutrophils # Seg Neutrophils # Man Lymphocytes # (Manual) ABG pH ABG pO2 ABG HCO3 ABG O2 Saturation ABG Base Excess ABG Hemoglobin Oxyhemoglobin Sodium Potassium Chloride Carbon Dioxide BUN Creatinine Glucose POC Glucose 390 H 399 H Hemoglobin A1c Lactic Acid Calcium Phosphorus Magnesium AST ALT Ammonia Troponin T Total Protein Albumin Triglycerides LDL Cholesterol Direct HDL Cholesterol Urine Creatinine Urine Total Protein 07/28/22 07/28/22 07/28/22 17:27 18:16 23:31 WBC RBC Hgb Hct MCV MCHC RDW Plt Count [place] # (Auto) Seg Neutrophils % Seg Neuts % (Manual) Lymphocytes % (Manual) Seg Neutrophils # Seg Neutrophils # Man Lymphocytes # (Manual) ABG pH ABG pO2 ABG HCO3 ABG O2 Saturation ABG Base Excess ABG Hemoglobin Oxyhemoglobin Sodium Potassium Chloride Carbon Dioxide BUN Creatinine Glucose POC Glucose 434 H 331 H Hemoglobin A1c Lactic Acid Calcium Phosphorus 2.00 L D Magnesium AST ALT Ammonia Troponin T Total Protein Albumin Triglycerides LDL Cholesterol Direct HDL Cholesterol Urine Creatinine Urine Total Protein 07/29/22 07/29/22 07/29/22 04:47 05:30 06:10 WBC RBC Hgb Hct MCV MCHC RDW Plt Count [place] # (Auto) Seg Neutrophils % Seg Neuts % (Manual) Lymphocytes % (Manual) Seg Neutrophils # Seg Neutrophils # Man Lymphocytes # (Manual) ABG pH 7.498 H ABG pO2 166.4 H ABG HCO3 16.2 L ABG O2 Saturation 99.1 H ABG Base Excess -5.4 L ABG Hemoglobin 10.7 L Oxyhemoglobin Sodium 151 H Potassium 3.5 L D Chloride 120.4 H Carbon Dioxide 17 L BUN 80 H Creatinine 2.8 H Glucose 303 H POC Glucose 261 H Hemoglobin A1c Lactic Acid Calcium 6.9 L Phosphorus Magnesium AST ALT Ammonia Troponin T Total Protein Albumin Triglycerides LDL Cholesterol Direct HDL Cholesterol Urine Creatinine Urine Total Protein 07/29/22 07/29/22 07/29/22 09:18 12:31 13:40 WBC 16.0 H RBC Hgb Hct MCV 96 H MCHC 30 L RDW 17.6 H Plt Count 84 L [place] # (Auto) Seg Neutrophils % Seg Neuts % (Manual) Lymphocytes % (Manual) Seg Neutrophils # Seg Neutrophils # Man Lymphocytes # (Manual) ABG pH ABG pO2 ABG HCO3 ABG O2 Saturation ABG Base Excess ABG Hemoglobin Oxyhemoglobin Sodium Potassium Chloride Carbon Dioxide BUN Creatinine Glucose POC Glucose 287 H 291 H Hemoglobin A1c Lactic Acid Calcium Phosphorus Magnesium AST ALT Ammonia Troponin T Total Protein Albumin Triglycerides LDL Cholesterol Direct HDL Cholesterol Urine Creatinine Urine Total Protein 07/29/22 07/29/22 07/30/22 17:19 23:57 04:25 WBC RBC Hgb Hct MCV MCHC RDW Plt Count [place] # (Auto) Seg Neutrophils % Seg Neuts % (Manual) Lymphocytes % (Manual) Seg Neutrophils # Seg Neutrophils # Man Lymphocytes # (Manual) ABG pH 7.461 H ABG pO2 123.0 H ABG HCO3 18.6 L ABG O2 Saturation ABG Base Excess -4.1 L ABG Hemoglobin 10.8 L Oxyhemoglobin Sodium Potassium Chloride Carbon Dioxide BUN Creatinine Glucose POC Glucose 272 H 205 H Hemoglobin A1c Lactic Acid Calcium Phosphorus Magnesium AST ALT Ammonia Troponin T Total Protein Albumin Triglycerides LDL Cholesterol Direct HDL Cholesterol Urine Creatinine Urine Total Protein 07/30/22 07/30/22 07/30/22 04:42 04:42 05:17 WBC RBC Hgb 11.1 L Hct 33.1 L D MCV MCHC RDW 16.0 H Plt Count 34 L [place] # (Auto) Seg Neutrophils % Seg Neuts % (Manual) Lymphocytes % (Manual) Seg Neutrophils # Seg Neutrophils # Man Lymphocytes # (Manual) ABG pH ABG pO2 ABG HCO3 ABG O2 Saturation ABG Base Excess ABG Hemoglobin Oxyhemoglobin Sodium 148 H Potassium 3.2 L Chloride 116.7 H Carbon Dioxide 18 L BUN 69 H Creatinine 2.0 H Glucose 197 H POC Glucose 185 H Hemoglobin A1c Lactic Acid Calcium 6.8 L Phosphorus 1.70 L Magnesium AST ALT Ammonia Troponin T Total Protein Albumin Triglycerides LDL Cholesterol Direct HDL Cholesterol Urine Creatinine Urine Total Protein 07/30/22 07/30/22 07/30/22 11:41 16:14 23:07 WBC RBC Hgb Hct MCV MCHC RDW Plt Count [place] # (Auto) Seg Neutrophils % Seg Neuts % (Manual) Lymphocytes % (Manual) Seg Neutrophils # Seg Neutrophils # Man Lymphocytes # (Manual) ABG pH ABG pO2 ABG HCO3 ABG O2 Saturation ABG Base Excess ABG Hemoglobin Oxyhemoglobin Sodium Potassium Chloride Carbon Dioxide BUN Creatinine Glucose POC Glucose 199 H 173 H 159 H Hemoglobin A1c Lactic Acid Calcium Phosphorus Magnesium AST ALT Ammonia Troponin T Total Protein Albumin Triglycerides LDL Cholesterol Direct HDL Cholesterol Urine Creatinine Urine Total Protein 07/31/22 07/31/22 07/31/22 03:25 04:00 04:13 WBC RBC Hgb 10.5 L Hct 32.8 L MCV MCHC RDW 15.3 H Plt Count 55 L [place] # (Auto) Seg Neutrophils % Seg Neuts % (Manual) Lymphocytes % (Manual) Seg Neutrophils # Seg Neutrophils # Man Lymphocytes # (Manual) ABG pH 7.513 H ABG pO2 64.1 L ABG HCO3 ABG O2 Saturation ABG Base Excess ABG Hemoglobin 10.5 L Oxyhemoglobin 93.8 L Sodium 146 H Potassium 3.4 L Chloride 112.5 H Carbon Dioxide 21 L BUN 53 H Creatinine 1.6 H Glucose 151 H POC Glucose Hemoglobin A1c Lactic Acid Calcium 6.4 L Phosphorus Magnesium AST ALT Ammonia Troponin T Total Protein Albumin Triglycerides LDL Cholesterol Direct HDL Cholesterol Urine Creatinine Urine Total Protein 07/31/22 07/31/22 07/31/22 05:39 11:08 16:11 WBC RBC Hgb Hct MCV MCHC RDW Plt Count [place] # (Auto) Seg Neutrophils % Seg Neuts % (Manual) Lymphocytes % (Manual) Seg Neutrophils # Seg Neutrophils # Man Lymphocytes # (Manual) ABG pH ABG pO2 ABG HCO3 ABG O2 Saturation ABG Base Excess ABG Hemoglobin Oxyhemoglobin Sodium Potassium Chloride Carbon Dioxide BUN Creatinine Glucose POC Glucose 155 H 132 H 150 H Hemoglobin A1c Lactic Acid Calcium Phosphorus Magnesium AST ALT Ammonia Troponin T Total Protein Albumin Triglycerides LDL Cholesterol Direct HDL Cholesterol Urine Creatinine Urine Total Protein 07/31/22 08/01/22 08/01/22 23:48 04:17 04:17 WBC RBC 3.62 L Hgb 10.6 L Hct 31.8 L MCV MCHC RDW 15.7 H Plt Count 90 L [place] # (Auto) Seg Neutrophils % Seg Neuts % (Manual) Lymphocytes % (Manual) Seg Neutrophils # Seg Neutrophils # Man Lymphocytes # (Manual) ABG pH ABG pO2 ABG HCO3 ABG O2 Saturation ABG Base Excess ABG Hemoglobin Oxyhemoglobin Sodium 147 H Potassium 3.3 L Chloride 113.7 H Carbon Dioxide BUN 46 H Creatinine Glucose 141 H POC Glucose 133 H Hemoglobin A1c Lactic Acid Calcium 6.0 L Phosphorus 2.00 L Magnesium 1.50 L AST ALT Ammonia Troponin T Total Protein Albumin Triglycerides LDL Cholesterol Direct HDL Cholesterol Urine Creatinine Urine Total Protein
--- NOTE | 2022-08-01 14:15 | Progress Note ---
Assessment and Plan Patient is 77-year-old male with a past medical history of hypertension, paroxysmal A. 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 Anoxic brain injury Status post cardiac arrest Acute respiratory failure-pulmonology following AMS-neurology following DKA Acute renal failure-nephrology following Sepsis PAF Hypertension Diabetes History of CVA 2019 [id number] following Echo 07/26/2022-technically difficult study due to patient on ventilator, poor endocardial definition. Very grossly in subcostal views probably normal left ventricular systolic function EF 50 to 60% no pericardial effusion. Consider repeating echo when patient is more stable and off ventilator Plan: Suspect troponin elevation in setting of sepsis, acute renal failure, and DKA S/p cardiac arrest with unknown rhythm in setting of sepsis, acute renal failure, DKA Telemetry reviewed: patient remains in afib Continue amiodarone 200 mg p.o. twice daily Due to anoxic brain injury thrombocytopenia hold anticoagulation at this time. Will defer to neuro recs regarding anticoagulation Per documentation patient for possible trach either tomorrow or Patient seen in conjunction with Dr. Salmeron who agrees this plan of care t - Patient Problems (1) History of CVA (cerebrovascular accident) Current Visit: Yes Status: Acute (2) Acute respiratory failure Current Visit: Yes Status: Acute (3) Cardiac arrest Current Visit: Yes Status: Acute (4) DKA (diabetic ketoacidosis) Current Visit: Yes Status: Acute (5) Leukocytosis Current Visit: Yes Status: Acute (6) Atrial fibrillation with RVR Current Visit: No Status: Acute (7) HLD (hyperlipidemia) Current Visit: No Status: Acute (8) HTN (hypertension) Current Visit: No Status: Acute Subjective Date of service: 08/01/22 Principal diagnosis: Hypernatremia, ARF Interval history: Patient remains intubated Currently A. fib 90s to 100s. No acute events overnight Objective Vital Signs Temp Pulse Pulse Resp BP Pulse Ox 08/01/22 13:00 86 29 H 138/82 96 08/01/22 12:50 86 138/82 96 08/01/22 12:00 89 106 H 30 H 146/79 96 08/01/22 11:40 99.1 F 08/01/22 11:00 94 H 35 H 160/91 95 08/01/22 10:00 94 H 29 H 174/95 95 08/01/22 09:00 96 H 42 H 164/89 90 08/01/22 08:52 95 H 160/83 95 08/01/22 08:00 94 H 91 H 35 H 160/83 95 08/01/22 07:13 98.7 F 08/01/22 07:00 93 H 31 H 153/83 95 08/01/22 06:00 95 H 24 139/72 95 08/01/22 05:00 102 H 34 H 143/71 91 08/01/22 04:42 108 H 139/69 96 08/01/22 04:00 98.8 F 98 H 24 139/69 98 08/01/22 03:31 97 08/01/22 03:30 90 08/01/22 03:00 94 H 33 H 132/71 95 08/01/22 02:00 102 H 37 H 134/66 91 08/01/22 01:00 120 H 36 H 144/72 90 08/01/22 00:00 99.8 F H 90 30 H 124/60 97 07/31/22 23:58 91 H 141/69 97 07/31/22 23:32 100.2 F H 97 H 97 07/31/22 23:10 101 H 25 H 141/69 99 07/31/22 23:00 92 H 29 H 141/69 98 07/31/22 22:00 96 H 33 H 144/84 97 07/31/22 21:00 95 H 29 H 153/79 97 07/31/22 20:00 94 H 29 H 150/78 96 07/31/22 19:51 101 H 139/84 97 07/31/22 19:22 94 H 34 H 97 07/31/22 19:21 100.6 F H 92 H 07/31/22 19:00 93 H 29 H 139/84 96 07/31/22 18:53 100.6 F H 07/31/22 18:01 94 H 30 H 142/82 93 07/31/22 18:00 94 H 150/78 96 07/31/22 17:00 100 H 26 H 136/75 95 07/31/22 16:00 98.8 F 110 H 126 H 27 H 157/76 97 07/31/22 15:00 104 H 22 157/76 98 - Physical Examination General: Other (Intubated) HEENT: Positive: Mucus Membranes Dry Neck: Positive: trachea midline Cardiac: Positive: irregularly irregular Lungs: Positive: Ventilated Respirations Neuro: Positive: Other (Unable to assess) Abdomen: Positive: Soft Skin: Positive: Cool. Negative: Rash, Suspicious Lesions, Ulceration Extremities: Present: upper extr. pulses, Cool, Other (Blisters noted on lower extremities) - Labs and Meds CBC 08/01/22 Range/Units 04:17 WBC 8.3 (4.5-11.0) K/mm3 RBC 3.62 L (3.65-5.03) M/mm3 Hgb 10.6 L (11.8-15.2) gm/dl Hct 31.8 L (35.5-45.6) % Plt Count 90 L (140-440) K/mm3 Comprehensive Metabolic Panel 08/01/22 Range/Units 04:17 Sodium 147 H (137-145) mmol/L Potassium 3.3 L (3.6-5.0) mmol/L Chloride 113.7 H (98-107) mmol/L Carbon Dioxide 22 (22-30) mmol/L BUN 46 H (9-20) mg/dL Creatinine 1.3 (0.8-1.3) mg/dL Glucose 141 H (75-100) mg/dL Calcium 6.0 L (8.4-10.2) mg/dL - Imaging and Cardiology EKG: report reviewed, image reviewed Echo: report reviewed - Telemetry EKG Rhythm: Atrial Fibrillation - EKG Supraventricular dysrhythmia: atrial fibrillation
[2022-08-01] MEDS: FREE WATER PO SCH ×3 (16:01→21:12)
[2022-08-02] MEDS: INSULIN REGULAR, HUMAN 100 UNITS/1 ML SUB-Q SCH ×4 (00:10→17:26)
[2022-08-02] MEDS: FREE WATER PO SCH ×6 (02:00→21:08)
[2022-08-02 05:14] LABS: Hematocrit 31.9 % (35.5-45.6); Hemoglobin 10.2 gm/dl (11.8-15.2); Mean Corpuscular HGB Conc 32 % (32-34); Mean Corpuscular Volume 88 fl (84-94); Platelet Count 130 K/mm3 (140-440); Red Blood Count 3.61 M/mm3 (3.65-5.03); Red Cell Distribution Width 15.8 % (13.2-15.2)
[2022-08-02] MEDS: HYDROCORTISONE SOD SUCC 100 MG/2 ML VIAL IV SCH (05:46)
[2022-08-02 06:11] LABS: Calcium 5.9 mg/dL (8.4-10.2)
[2022-08-02] MEDS ORDERED: CALC GLUCONATE 1GM/NS 100 ML 1 GM/100 ML BAG IV ONE (06:25)
[2022-08-02] MEDS: SODIUM BICARBONATE 650 MG TAB PO SCH ×3 (09:09→20:16)
[2022-08-02] MEDS: AMIODARONE 200 MG TAB PO SCH ×2 (09:09→21:03)
[2022-08-02] MEDS: FAMOTIDINE 10 MG TAB FEEDTUBE SCH ×2 (09:09→21:03)
[2022-08-02] MEDS: INSULIN GLARGINE 100 UNITS/ML SUB-Q SCH (09:10)
[2022-08-02] MEDS ORDERED: DEXTROSE 5% IN WATER 1,000 ML IV SCH ×2 (10:00→14:00)
[2022-08-02] MEDS ORDERED: POTASSIUM CHLORIDE 20 MEQ PACKET FEEDTUBE SCH (10:00)
[2022-08-02] MEDS: CEFEPIME/NS 2 GM/100 ML 2 GM/100 ML BAG IV SCH (10:18)
[2022-08-02] MEDS ORDERED: fentaNYL 100 MCG/2 ML INJ ONE (10:31)
[2022-08-02] MEDS ORDERED: ROCURONIUM 50 MG/5 ML INJ IV ONE (10:31)
[2022-08-02] MEDS ORDERED: LIDOCAINE MPF (2%) 20 MG/1 ML VIAL 5 ML ONE (10:31)
[2022-08-02] MEDS ORDERED: PHENYLEPHRINE/NS 1,000 MCG/10 ML SYRINGE (OR USE) IV ONE (10:31)
--- NOTE | 2022-08-02 10:32 | Anesthesia Consultation ---
Anesthesia Consult and Med Hx Date of service: 08/02/22 - Airway Intubation Access Assessment: Possibly Difficult (oETT in situ) - Pre-Operative Health Status ASA Pre-Surgery Classification: ASA4 Proposed Anesthetic Plan: General - Pulmonary Hx Respiratory Symptoms: Yes (vent dependent resp failure) - Cardiovascular System Hx Hypertension: Yes (prior hx; previously on pressors but now off for several days) Hx Heart Attack/AMI: Yes (08/2016; per chart review; grossly normal EF this admission) Hx Cardia Arrhythmia: Yes (A-fib) Hx Pacemaker: No Hx Internal Defibrillator: No - Central Nervous System CVA: Yes (prior hx CVA; hypoxic brain injury this admission) - Endocrine Hx Renal Disease: Yes (FREDI) Hx Insulin Dependent Diabetes: Yes - Hematic Hx Anemia: Yes (w/ thrombocytopenia) - Additional Comments Anesthesia Medical History Comments: Patient admitted w/ AMS and DKA. Hospital course complicated by resp failure requiring mechanical ventilation, PEA arrest and shock requiring pressors (resolved), hypoxic brain injury, a-fib w/ RVR (now rate controlled), and FREDI (improving). Now scheduled for trach/PEG. FiO2 28%, Peep 6, no gtts.
--- NOTE | 2022-08-02 10:32 | Anesthesia Day of Surgery ---
Anesthesia Day of Surgery - Day of Surgery Patient Examined: Yes Patient H&P Reviewed: Yes Patient is NPO: Yes
[2022-08-02] MEDS ORDERED: propofoL 200 MG/20 ML VIAL IV ONE (10:33)
[2022-08-02] MEDS ORDERED: ePHEDrine SULFATE 50 MG/1 ML INJ ONE (10:33)
--- NOTE | 2022-08-02 11:24 | Progress Note ---
<DENNY ARNOLD - Last Filed: 08/02/22 23:17> Assessment and Plan Assessment and plan: This is a 77-year-old male from a SNF facility with known past medical history of DM, paroxysmal atrial fibrillation, HTN, and CVA (2020) initially presented with AMS and Hyperglycemia. While in the ED, patient became obtunded with hyp oxia and was intubated for airway protection. Post intubation patient PEA arrested and ROSC was achieved after approximately 13 minutes. Hospital Course to Date: 07/26: Patient is on any sedation, very sluggish pupillary response, no cough/gag noted, no seizure activity. Neurology recs repeat CT head without contrast or MRI brain without contrast when clinically stable. Patient also had a EEG completed today. Patient is currently maxed on Levophed and vasopressin. Given several LR boluses today. Antibiotics broadened and stress dose steroids added. 07/27: Weaning pressors, phosphorus repleted, SSI and long-acting insulin initiated, tube feeding initiated. Patient now has a hypoactive cough/gag. CT head pending. LR bolus. Thrombocytopenia noted. Cardiology would like to start heparin drip due to atrial fibrillation however would like neurology input prior to. 07/28: Patient remains off of vasopressors, patient had MRI today. Worsening renal function noted. Cardiology will hold off amiodarone due to thrombocytopenia. No acute events reported overnight. 07/29: I had an extensive conversation with son and at bedside to with the help of an sausage tier through the assistance specialist line. Explained thoroughly of presentation to the ED from documentation, cardiac arrest, CT head and MRI brain findings. They are still electing to continue aggressive care and would like hospital assistance with getting a visa for youngest son to come to the [facility] from [place]. marketing communications manager is aware of request. Steroid taper started. CBC pending. Will be repleted. Hypernatremia improving. 07/30: LR bolus, renal function is improved, thrombocytopenia worse. Likely consult surgery for trach/peg as per family requests to continue care. No acute events overnight. 07/31: Patient's mentation is unchanged. Remains on low vent setting. D/w [facility] general surgery consulted for possible trach and PEG. Renal function is improving, still hypenatremic, continue FWF per Nephrology. K repleted, continue to - Monitor and replace electrolytes as needed. Patient remains in SR on the monitor, VSS. Amiodarone gtt transitioned to PO amio per Cardio. 08/01: Condition unchanged, remains stable on low vent setting. Renal function continue to improve with persistent hypernatremia, continue FWF per Nephro. General Surgery recommendations noted. D/w General surgery, plan for possible trach and PEG exchange tomorrow or . 08/02: Remains stable on low vent settings. NPO since after midnight for possible trach/PEG today by General Surgery. Patient remains hypernatremic and due to NPO status, FWF was held. Will initiated low dose D5W gtt for now. And also to prevent hypoglycemia while NPO, patient is on Lantus BID. Currently on steroids taper, will hold tonight does and reduce Lantus to Qhs starting tomorrow. Close monitoring of BG and electrolytes. Nephrology is also following. Neuro: Acute metabolic encephalopathy, hepatic encephalopathy, r/o ALEC and subclinical status epilepticus, h/o CVA (2019) -Sluggish pupils, no cough/gag, periodic spontaneous respiration -Neurology consulted, appreciate recommendations -Initial CT head with no acute abnormality -Repeat CT head without contrast of preferably MRI brain without contrast when clinically stable -EEG completed -Per neurology aim for euglycemia and permissive hypertension for now -Ammonia 64 -MRI brain shows diffuse diffusion abnormality involving cerebral and cerebellum compatible with diffuse hypoxia given the patient's history, interval evolving of left [employer] infarct from 02/16/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 Cardiac: S/p cardiac arrest, A. fib RVR, h/o hypertension, paroxysmal atrial fibrillation, hyperlipidemia -Patient suffered cardiac arrest on 07/25 in the ED and then was noted to be in A. fib with RVR -Amiodarone PO -Cardiology consulted, appreciate recommendations -Blood pressure monitoring per protocol -S/p vasopressor support with Levophed and vasopressin -MAP goal greater than 65 -Echocardiogram shows EF 50 to 60%, no pericardial effusion -Lipitor Respiratory: Acute hypoxic respiratory failure -[facility] consulted, appreciate recommendations -Intubated on 07/25 with a 8.00 ETT in the ED -A.m. vent settings: PRVC-28%,6,16,400 -See RT notes for titration -A.m. ABG and CXR noted -VAP bundle -SPO2 monitoring -General Surgery consulted for possible Trach/PEg GI: Protein calorie malnutrition -Enteral Nutrition initiated -NTR consult for tube feeding -PPI : Hypernatremia, metabolic acidosis, acute kidney injury likely secondary to vasomotor nephropathy, hypokalemia, hypophosphatemia -S/p 4 L LR bolus -Nephrology consulted, appreciate recommendations -Serum creatinine 03/08/2020 was 1.3, Scr. back to baseline at 1.3 today -Monitor intake and output -Renally dose medications -Avoid nephrotoxic medications -FWF 250ml q 4 hr per nephro -Renal ultrasound noted -KPhos IV -Trend BMP ID: Sepsis, Klebsiella pneumonia -Hypotension, acute kidney injury, acute respiratory failure, lactic acidosis -Antibiotic therapy with cefepime -Solu-Cortef tapering -f/u blood culture -Monitor WBC and temperature curve Endo: h/o DM s/p DKA -Presented with anion gap of 21, glucose of 761, VBG 7.362 -s/p Insulin drip -Accu-Cheks q6hr -SSI -Long-acting insulin when able -Hemaglobin A1C 12.3 Heme: Thrombocytopenia -Dropped in plt -Hematology consulted -HIT panel pending -Trend CBC -Transfuse hemoglobin less than 7 -SCDs to BLE while in bed The high probability of a clinically significant, sudden or life threatening deterioration of the [multi] system(s) required my full and direct attention, intervention and personal management. The aggregate critical care time was [60] minutes. This time is in addition to time spent performing reported procedures but includes the following: [x] Data Review and interpretation [x] Patient assessment and monitoring of vital signs [x] Documentation [x] Medication orders and management Disposition Plan: ICU Total Time Spent with Patient (Minutes): 60 History Interval history: Patient seen and examined at the bedside. Remains on the vent, unresponsive, not on any sedations. NPO this am for possible trach and PEG by general surgery today. ABRAM overnight Hospitalist Physical - Physical exam Narrative exam: General appearance: Present: other (Intubated and unresponsive) - EENT Eyes: Present: irregular pupil, mydriasis - Respiratory Respiratory effort: normal Respiratory: bilateral: rhonchi - Cardiovascular Rhythm: regular Heart Sounds: Present: S1 & S2 - Extremities Extremities: no ischemia, pulses intact, pulses symmetrical Extremity abnormal: edema - Peripheral Assessment Generalized Edema Type: Non-pitting Edema Degree: 2+ Capillary Refill: < 3 seconds Skin Temperature: Warm Peripheral Pulses: within normal limits - Abdominal General gastrointestinal: soft, non-distended, normal bowel sounds - Integumentary Integumentary: Present: warm, dry - Psychiatric Psychiatric: other (Intubated and unresponsive) - Neurologic Neurologic: other (Intubated and unresponsive) - Allied Health Allied health notes reviewed: nursing, case management - Constitutional Vitals: Temp Pulse Resp BP Pulse Ox 99.2 F 83 28 H 138/75 94 08/02/22 08:00 08/02/22 10:00 08/02/22 10:00 08/02/22 10:00 08/02/22 10:00 HEART Score - HEART Score Troponin: Troponin T 0.049 ng/mL (0.00-0.029) H D 07/26/22 15:36 Results - Labs CBC & Chem 7: 08/02/22 04:48 08/02/22 04:48 Labs: Laboratory Last Values WBC 10.3 K/mm3 (4.5-11.0) 08/02/22 04:48 RBC 3.61 M/mm3 (3.65-5.03) L 08/02/22 04:48 Hgb 10.2 gm/dl (11.8-15.2) L 08/02/22 04:48 Hct 31.9 % (35.5-45.6) L 08/02/22 04:48 MCV 88 fl (84-94) 08/02/22 04:48 MCH 28 pg (28-32) 08/02/22 04:48 MCHC 32 % (32-34) 08/02/22 04:48 RDW 15.8 % (13.2-15.2) H 08/02/22 04:48 Plt Count 130 K/mm3 (140-440) L 08/02/22 04:48 Lymph % (Auto) 21.7 % (13.4-35.0) 07/25/22 19:37 [place] % (Auto) 7.3 % (0.0-7.3) 07/25/22 19:37 Eos % (Auto) 0.0 % (0.0-4.3) 07/25/22 19:37 Baso % (Auto) 0.3 % (0.0-1.8) 07/25/22 19:37 Lymph # (Auto) 4.1 K/mm3 (1.2-5.4) 07/25/22 19:37 [place] # (Auto) 1.4 K/mm3 (0.0-0.8) H 07/25/22 19:37 Eos # (Auto) 0.0 K/mm3 (0.0-0.4) 07/25/22 19:37 Baso # (Auto) 0.1 K/mm3 (0.0-0.1) 07/25/22 19:37 Add Manual Diff Complete 07/27/22 03:50 Total Counted 100 07/27/22 03:50 Seg Neutrophils % 70.7 % (40.0-70.0) H 07/25/22 19:37 Seg Neuts % (Manual) 78.0 % (40.0-70.0) H 07/27/22 03:50 Band Neutrophils % 16.0 % 07/27/22 03:50 Lymphocytes % (Manual) 3.0 % (13.4-35.0) L 07/27/22 03:50 Reactive Lymphs % (Man) 0 % 07/27/22 03:50 Monocytes % (Manual) 2.0 % (0.0-7.3) 07/27/22 03:50 Eosinophils % (Manual) 0 % (0.0-4.3) 07/27/22 03:50 Basophils % (Manual) 0 % (0.0-1.8) 07/27/22 03:50 Metamyelocytes % 1.0 % 07/27/22 03:50 Myelocytes % 0 % 07/27/22 03:50 Promyelocytes % 0 % 07/27/22 03:50 Blast Cells % 0 % 07/27/22 03:50 Nucleated RBC % Not Reportable 07/27/22 03:50 Seg Neutrophils # 13.3 K/mm3 (1.8-7.7) H 07/25/22 19:37 Seg Neutrophils # Man 12.0 K/mm3 (1.8-7.7) H 07/27/22 03:50 Band Neutrophils # 2.5 K/mm3 07/27/22 03:50 Lymphocytes # (Manual) 0.5 K/mm3 (1.2-5.4) L 07/27/22 03:50 Abs React Lymphs (Man) 0.0 K/mm3 07/27/22 03:50 Monocytes # (Manual) 0.3 K/mm3 (0.0-0.8) 07/27/22 03:50 Eosinophils # (Manual) 0.0 K/mm3 (0.0-0.4) 07/27/22 03:50 Basophils # (Manual) 0.0 K/mm3 (0.0-0.1) 07/27/22 03:50 Metamyelocytes # 0.2 K/mm3 07/27/22 03:50 Myelocytes # 0.0 K/mm3 07/27/22 03:50 Promyelocytes # 0.0 K/mm3 07/27/22 03:50 Blast Cells # 0.0 K/mm3 07/27/22 03:50 WBC Morphology Not Reportable 07/27/22 03:50 Hypersegmented Neuts Not Reportable 07/27/22 03:50 Hyposegmented Neuts Not Reportable 07/27/22 03:50 Hypogranular Neuts Not Reportable 07/27/22 03:50 Smudge Cells Not Reportable 07/27/22 03:50 Toxic Granulation Not Reportable 07/27/22 03:50 Toxic Vacuolation Not Reportable 07/27/22 03:50 Dohle Bodies Not Reportable 07/27/22 03:50 Pelger-Huet Anomaly Not Reportable 07/27/22 03:50 Jay Rods Not Reportable 07/27/22 03:50 Platelet Estimate Consistent w auto 07/27/22 03:50 Clumped Platelets Not Reportable 07/27/22 03:50 Plt Clumps, EDTA Not Reportable 07/27/22 03:50 Large Platelets Not Reportable 07/27/22 03:50 Giant Platelets Not Reportable 07/27/22 03:50 Platelet Satelliting Not Reportable 07/27/22 03:50 Plt Morphology Comment Not Reportable 07/27/22 03:50 RBC Morphology Not Reportable 07/27/22 03:50 Dimorphic RBCs Not Reportable 07/27/22 03:50 Polychromasia Not Reportable 07/27/22 03:50 Hypochromasia Not Reportable 07/27/22 03:50 Poikilocytosis Not Reportable 07/27/22 03:50 Anisocytosis Not Reportable 07/27/22 03:50 Microcytosis Not Reportable 07/27/22 03:50 Macrocytosis Not Reportable 07/27/22 03:50 Spherocytes Not Reportable 07/27/22 03:50 Pappenheimer Bodies Not Reportable 07/27/22 03:50 Sickle Cells Not Reportable 07/27/22 03:50 Target Cells Not Reportable 07/27/22 03:50 Tear Drop Cells Not Reportable 07/27/22 03:50 Ovalocytes Not Reportable 07/27/22 03:50 Helmet Cells Not Reportable 07/27/22 03:50 Reynolds-Vass Bodies Not Reportable 07/27/22 03:50 Volborg Rings Not Reportable 07/27/22 03:50 Leonora Cells Not Reportable 07/27/22 03:50 Bite Cells Not Reportable 07/27/22 03:50 Crenated Cell Not Reportable 07/27/22 03:50 Elliptocytes Not Reportable 07/27/22 03:50 Acanthocytes (Spur) Not Reportable 07/27/22 03:50 Rouleaux Not Reportable 07/27/22 03:50 Hemoglobin C Crystals Not Reportable 07/27/22 03:50 Schistocytes Not Reportable 07/27/22 03:50 Malaria parasites Not Reportable 07/27/22 03:50 Peewee Bodies Not Reportable 07/27/22 03:50 Hem Pathologist Commnt No 07/27/22 03:50 PT 14.3 Sec. (12.2-14.9) 07/31/22 04:13 INR 0.97 (0.87-1.13) 07/31/22 04:13 ABG pH 7.513 pH Units (7.350-7.450) H 07/31/22 03:25 ABG pCO2 25.7 mm Hg 07/31/22 03:25 ABG pO2 64.1 mm Hg (80.0-90.0) L 07/31/22 03:25 ABG HCO3 20.2 mmol/L (20.0-26.0) 07/31/22 03:25 ABG O2 Saturation 95.4 % (95.0-99.0) 07/31/22 03:25 ABG O2 Content 13.9 (0.0-44) 07/31/22 03:25 ABG Base Excess -1.7 mmol/L (-2.0-3.0) 07/31/22 03:25 ABG Hemoglobin 10.5 gm/dl (14.0-18.0) L 07/31/22 03:25 ABG Carboxyhemoglobin 1.3 % (0.0-5.0) 07/31/22 03:25 ABG Methemoglobin 0.3 % (0.0-1.5) 07/31/22 03:25 VBG pH 7.362 (7.320-7.420) 07/25/22 19:37 Oxyhemoglobin 93.8 % (95.0-99.0) L 07/31/22 03:25 FiO2 28 % 07/31/22 03:25 Sodium 148 mmol/L (137-145) H 08/02/22 04:48 Potassium 3.4 mmol/L (3.6-5.0) L 08/02/22 04:48 Chloride 113.1 mmol/L (98-107) H 08/02/22 04:48 Carbon Dioxide 16 mmol/L (22-30) L 08/02/22 04:48 Anion Gap 22 mmol/L 08/02/22 04:48 BUN 45 mg/dL (9-20) H 08/02/22 04:48 Creatinine 1.3 mg/dL (0.8-1.3) 08/02/22 04:48 Estimated GFR 54 ml/min 08/02/22 04:48 BUN/Creatinine Ratio 35 % 08/02/22 04:48 Glucose 213 mg/dL (75-100) H 08/02/22 04:48 POC Glucose 193 mg/dL (70-105) H 08/01/22 23:34 Hemoglobin A1c 12.3 % (4-6) H 07/27/22 12:13 Lactic Acid 9.70 mmol/L (0.7-2.0) H* 07/26/22 15:36 Calcium 5.9 mg/dL (8.4-10.2) L* 08/02/22 04:48 Phosphorus 2.30 mg/dL (2.5-4.5) L 08/02/22 04:48 Magnesium 2.00 mg/dL (1.7-2.3) 08/02/22 04:48 Total Bilirubin 0.30 mg/dL (0.1-1.2) 07/27/22 03:50 AST 64 units/L (5-40) H 07/27/22 03:50 ALT 31 units/L (7-56) 07/27/22 03:50 Alkaline Phosphatase 61 units/L (35-129) 07/27/22 03:50 Ammonia 64.0 umol/L (25-60) H 07/25/22 19:37 Total Creatine Kinase 158 units/L (55-170) 07/25/22 19:37 CK-MB (CK-2) < 1.0 ng/mL (0.0-4.0) 07/25/22 19:37 CK-MB (CK-2) Rel Index 0.6 (0-4) 07/25/22 19:37 Troponin T 0.049 ng/mL (0.00-0.029) H D 07/26/22 15:36 Total Protein 4.1 g/dL (6.3-8.2) L D 07/27/22 03:50 Albumin 2.1 g/dL (3.9-5) L 07/27/22 03:50 Albumin/Globulin Ratio 1.1 % 07/27/22 03:50 Triglycerides 362 mg/dL (2-149) H 07/25/22 19:37 Cholesterol 126 mg/dL (50-199) 07/25/22 19:37 LDL Cholesterol Direct 44 mg/dL (50-130) L 07/25/22 19:37 HDL Cholesterol 34 mg/dL (40-59) L 07/25/22 19:37 Cholesterol/HDL Ratio 3.70 % 07/25/22 19:37 TSH 2.170 mlU/mL (0.270-4.200) 07/25/22 19:37 Free T4 1.18 ng/dL (0.76-1.46) 07/25/22 19:37 Urine Color Lin (Yellow) 07/26/22 08:31 Urine Turbidity Cloudy (Clear) 07/26/22 08:31 Specific Delta (Man) 1.010 (1.003-1.030) 07/26/22 08:31 Ur Protein (Man) <30 mg dl mg/dL (Negative) 07/26/22 08:31 Ur Ketones (Man) Negative (Negative) 07/26/22 08:31 Ur Nitrite (Man) Negative (Negative) 07/26/22 08:31 Ur Reducing Substances Not Reportable 07/26/22 08:31 Urine Bilirubin (Man) Negative (Negative) 07/26/22 08:31 Urine Ictotest Not Reportable 07/26/22 08:31 Leukocyte Esterase (Man) Trace (Negative) 07/26/22 08:31 Urine WBC (Auto) < 1.0 /HPF (0.0-6.0) 07/26/22 08:31 Urine RBC (Auto) 1.0 /HPF (0.0-6.0) 07/26/22 08:31 U Epithel Cells (Auto) 3.0 /HPF (0-13.0) 07/26/22 08:31 Urine RBC (Manual) 5-10 (Negative) 07/26/22 08:31 Ur Renal Epithelial Cell 3 /LPF 07/26/22 08:31 Urine Mucus Few /HPF 07/26/22 08:31 Urine Creatinine 118.4 mg/dL (0.1-20.0) H 07/26/22 18:10 Protein/Creatinin Ratio 1.23 07/26/22 18:10 Urine Sodium 108 mmol/L 07/26/22 18:10 Urine Total Protein 146 mg/dL (5-11.8) H 07/26/22 18:10 Yañez/IV: Voiding Method Indwelling Catheter Active Medications - Current Medications Current Medications: Generic Name Dose Route Start Last Admin Trade Name Freq PRN Reason Stop Dose Admin Acetaminophen 650 mg 07/26/22 00:31 07/31/22 23:30 Acetaminophen 325 Mg Tab PO 650 mg Q4H PRN Administration Pain MILD(1-3)/Fever >100.5/LANTIGUA Acetaminophen 650 mg 07/26/22 02:04 Acetaminophen 650 Mg Rect Supp DC Q4H PRN Pain, Mild (1-3) Albuterol 2.5 mg 07/26/22 00:31 Albuterol 2.5 Mg/3 Ml Nebu IH Q3HRT PRN Shortness Of Breath Amiodarone HCl 200 mg 07/29/22 15:00 08/02/22 09:09 Amiodarone 200 Mg Tab PO 200 mg BID LIZZIE Administration Atorvastatin Calcium 40 mg 07/26/22 22:00 08/01/22 21:11 Atorvastatin 40 Mg Tab PO 40 mg QHS LIZZIE Administration Dextrose 50 ml 07/27/22 09:25 Dextrose 50% In Water (25gm) 50 Ml Syringe IV Q30MIN PRN Hypoglycemia Protocol Famotidine 10 mg 07/28/22 10:00 08/02/22 09:09 Famotidine 10 Mg Tab FEEDTUBE 10 mg BID LIZZIE Administration Hydrocortisone Sodium Succinate 50 mg 07/31/22 14:00 08/02/22 05:46 Hydrocortisone Sod Succ 100 Mg/2 Ml Vial IV 50 mg Q8HR LIZZIE Administration Cefepime HCl 2 gm in 100 mls @ 200 mls/hr 07/27/22 11:00 08/02/22 10:18 Cefepime/Ns 2 Gm/100 Ml IV 08/03/22 11:29 200 mls/hr Q24H LIZZIE Administration Protocol Dextrose 1,000 mls @ 100 mls/hr 08/02/22 10:00 D5w IV 08/02/22 19:59 DIRECT LIZZIE Insulin Glargine 30 units 07/28/22 22:00 08/02/22 09:10 Insulin Glargine 100 Units/Ml SUB-Q 30 units BID LIZZIE Administration Insulin Human Regular 0 units 07/27/22 12:00 08/02/22 05:50 Insulin Regular, Human 100 Units/1 Ml SUB-Q 3 units Q6H LIZZIE Administration Protocol Multi-Ingred Cream/Lotion/Oil/Oint 1 applic 07/27/22 03:17 07/27/22 03:35 Mineral Oil/Petrolatum, White Ophth Oint 3.5 Gm OU 1 applic PRN PRN Administration Dry Eye(s) Nitroglycerin 0.4 mg 07/26/22 00:31 Nitroglycerin 0.4 Mg Tab Subl SL Q5M PRN Chest Pain Ondansetron HCl 4 mg 07/26/22 00:31 Ondansetron 4 Mg/2 Ml Inj IV Q8H PRN Nausea And Vomiting Potassium Chloride 40 meq 08/02/22 10:00 08/02/22 10:15 Potassium Chloride 20 Meq Packet FEEDTUBE 08/02/22 14:00 40 meq ONCE LIZZIE Administration Sodium Bicarbonate 650 mg 07/29/22 20:00 08/02/22 09:09 Sodium Bicarbonate 650 Mg Tab PO 650 mg TID LIZZIE Administration Sodium Chloride 10 ml 07/26/22 10:00 08/02/22 09:10 Sodium Chloride 0.9% 10 Ml Flush Syringe IV 10 ml BID LIZZIE Administration Sodium Chloride 10 ml 07/26/22 00:31 Sodium Chloride 0.9% 10 Ml Flush Syringe IV PRN PRN LINE FLUSH Sodium Phosphate 250 mg 08/02/22 18:00 K-Phos Neutral 250 Mg Tab FEEDTUBE 08/03/22 12:01 Q6HR LIZZIE Nutrition/Malnutrition Assess - Dietary Evaluation Nutrition/Malnutrition Findings: Nutrition Notes Start: 07/26/22 10:25 Freq: Status: Active Protocol: Document 07/31/22 14:58 PEACE (Rec: 07/31/22 15:04 PEACE [id number]) Nutrition Notes Initial or Follow up Reassessment Current Diagnosis Acute Kidney Injury,Diabetes, Hypertension,Respiratory Failure,Hyperlipidemia Other Pertinent Diagnosis s/p cardiac arrest, s/p DKA, acute metabolic encephalopathy Current Diet TF - Glucerna 1.2 at 45ml/hr Labs/Tests Na 146 K 3.4 BUN 53 Cr 1.6 BG 151 Pertinent Medications 40mEq KCl Height 5 ft 5 in Weight 49.8 kg [place] Body Weight (kg) 61.81 BMI 18.2 Subjective/Other Information Observed Glucerna 1.2 infusing at goal rate; pt tolerating TF. MD ordered 250ml water flush q4h. Pt remains on vent support; renal function improving. Percent of energy/protein needs met: 93% energy 100% pro Burn Absent Trauma Absent #1 Nutrition Diagnosis Inadequate oral intake Diagnosis Progress(for reassessment Continues documentation) Is patient on ventilator? Yes Is Patient Ambulatory and/or Out of Bed No REE-([place]-confined to bed) [phone] Calculation Used for Recommendations [place] [facility] Additional Notes Pro needs 0.8-1.2g/k-60g/ day Fluid needs per MD. Nutrition Intervention Nutrition Support: Continue Glucerna 1.2 at 45ml/ hr with 250ml water flush q4h until hypernatremia resolved. Kcal 1,296 Protein (gm) 65 Carbohydrates (gm) 124 Fat (gm) 65 Fluid (mL) 869 Fiber (gm) 17 Goal #1 TF tolerance Goal #2 TF to provide at least 75% energy and pro needs Follow-Up By: 08/07/22 Additional Comments F/U: stable TF, trach/PEG placement, vent status, renal function, BM <DASHA DOWNING - Last Filed: 08/03/22 07:18> Assessment and Plan Assessment and plan: I saw and evaluated the patient. I agree with the findings and the plan of care as documented in the Nurse Practitioner's~note, with the following corrections and additions. Hospitalist Physical - Constitutional Vitals: Temp Pulse Resp BP Pulse Ox 99.5 F 78 30 H 152/74 100 08/03/22 04:00 08/03/22 06:01 08/03/22 06:01 08/03/22 06:01 08/03/22 06:01 HEART Score - HEART Score Troponin: Troponin T 0.049 ng/mL (0.00-0.029) H D 07/26/22 15:36 Results - Labs CBC & Chem 7: 08/03/22 04:40 08/03/22 04:40 Labs: Laboratory Last Values WBC 12.7 K/mm3 (4.5-11.0) H 08/03/22 04:40 RBC 3.36 M/mm3 (3.65-5.03) L 08/03/22 04:40 Hgb 9.5 gm/dl (11.8-15.2) L 08/03/22 04:40 Hct 29.8 % (35.5-45.6) L 08/03/22 04:40 MCV 89 fl (84-94) 08/03/22 04:40 MCH 28 pg (28-32) 08/03/22 04:40 MCHC 32 % (32-34) 08/03/22 04:40 RDW 15.7 % (13.2-15.2) H 08/03/22 04:40 Plt Count 142 K/mm3 (140-440) 08/03/22 04:40 Lymph % (Auto) 21.7 % (13.4-35.0) 07/25/22 19:37 [place] % (Auto) 7.3 % (0.0-7.3) 07/25/22 19:37 Eos % (Auto) 0.0 % (0.0-4.3) 07/25/22 19:37 Baso % (Auto) 0.3 % (0.0-1.8) 07/25/22 19:37 Lymph # (Auto) 4.1 K/mm3 (1.2-5.4) 07/25/22 19:37 [place] # (Auto) 1.4 K/mm3 (0.0-0.8) H 07/25/22 19:37 Eos # (Auto) 0.0 K/mm3 (0.0-0.4) 07/25/22 19:37 Baso # (Auto) 0.1 K/mm3 (0.0-0.1) 07/25/22 19:37 Add Manual Diff Complete 07/27/22 03:50 Total Counted 100 07/27/22 03:50 Seg Neutrophils % 70.7 % (40.0-70.0) H 07/25/22 19:37 Seg Neuts % (Manual) 78.0 % (40.0-70.0) H 07/27/22 03:50 Band Neutrophils % 16.0 % 07/27/22 03:50 Lymphocytes % (Manual) 3.0 % (13.4-35.0) L 07/27/22 03:50 Reactive Lymphs % (Man) 0 % 07/27/22 03:50 Monocytes % (Manual) 2.0 % (0.0-7.3) 07/27/22 03:50 Eosinophils % (Manual) 0 % (0.0-4.3) 07/27/22 03:50 Basophils % (Manual) 0 % (0.0-1.8) 07/27/22 03:50 Metamyelocytes % 1.0 % 07/27/22 03:50 Myelocytes % 0 % 07/27/22 03:50 Promyelocytes % 0 % 07/27/22 03:50 Blast Cells % 0 % 07/27/22 03:50 Nucleated RBC % Not Reportable 07/27/22 03:50 Seg Neutrophils # 13.3 K/mm3 (1.8-7.7) H 07/25/22 19:37 Seg Neutrophils # Man 12.0 K/mm3 (1.8-7.7) H 07/27/22 03:50 Band Neutrophils # 2.5 K/mm3 07/27/22 03:50 Lymphocytes # (Manual) 0.5 K/mm3 (1.2-5.4) L 07/27/22 03:50 Abs React Lymphs (Man) 0.0 K/mm3 07/27/22 03:50 Monocytes # (Manual) 0.3 K/mm3 (0.0-0.8) 07/27/22 03:50 Eosinophils # (Manual) 0.0 K/mm3 (0.0-0.4) 07/27/22 03:50 Basophils # (Manual) 0.0 K/mm3 (0.0-0.1) 07/27/22 03:50 Metamyelocytes # 0.2 K/mm3 07/27/22 03:50 Myelocytes # 0.0 K/mm3 07/27/22 03:50 Promyelocytes # 0.0 K/mm3 07/27/22 03:50 Blast Cells # 0.0 K/mm3 07/27/22 03:50 WBC Morphology Not Reportable 07/27/22 03:50 Hypersegmented Neuts Not Reportable 07/27/22 03:50 Hyposegmented Neuts Not Reportable 07/27/22 03:50 Hypogranular Neuts Not Reportable 07/27/22 03:50 Smudge Cells Not Reportable 07/27/22 03:50 Toxic Granulation Not Reportable 07/27/22 03:50 Toxic Vacuolation Not Reportable 07/27/22 03:50 Dohle Bodies Not Reportable 07/27/22 03:50 Pelger-Huet Anomaly Not Reportable 07/27/22 03:50 Jay Rods Not Reportable 07/27/22 03:50 Platelet Estimate Consistent w auto 07/27/22 03:50 Clumped Platelets Not Reportable 07/27/22 03:50 Plt Clumps, EDTA Not Reportable 07/27/22 03:50 Large Platelets Not Reportable 07/27/22 03:50 Giant Platelets Not Reportable 07/27/22 03:50 Platelet Satelliting Not Reportable 07/27/22 03:50 Plt Morphology Comment Not Reportable 07/27/22 03:50 RBC Morphology Not Reportable 07/27/22 03:50 Dimorphic RBCs Not Reportable 07/27/22 03:50 Polychromasia Not Reportable 07/27/22 03:50 Hypochromasia Not Reportable 07/27/22 03:50 Poikilocytosis Not Reportable 07/27/22 03:50 Anisocytosis Not Reportable 07/27/22 03:50 Microcytosis Not Reportable 07/27/22 03:50 Macrocytosis Not Reportable 07/27/22 03:50 Spherocytes Not Reportable 07/27/22 03:50 Pappenheimer Bodies Not Reportable 07/27/22 03:50 Sickle Cells Not Reportable 07/27/22 03:50 Target Cells Not Reportable 07/27/22 03:50 Tear Drop Cells Not Reportable 07/27/22 03:50 Ovalocytes Not Reportable 07/27/22 03:50 Helmet Cells Not Reportable 07/27/22 03:50 Reynolds-Vass Bodies Not Reportable 07/27/22 03:50 Volborg Rings Not Reportable 07/27/22 03:50 Purlear Cells Not Reportable 07/27/22 03:50 Bite Cells Not Reportable 07/27/22 03:50 Crenated Cell Not Reportable 07/27/22 03:50 Elliptocytes Not Reportable 07/27/22 03:50 Acanthocytes (Spur) Not Reportable 07/27/22 03:50 Rouleaux Not Reportable 07/27/22 03:50 Hemoglobin C Crystals Not Reportable 07/27/22 03:50 Schistocytes Not Reportable 07/27/22 03:50 Malaria parasites Not Reportable 07/27/22 03:50 Peewee Bodies Not Reportable 07/27/22 03:50 Hem Pathologist Commnt No 07/27/22 03:50 PT 14.3 Sec. (12.2-14.9) 07/31/22 04:13 INR 0.97 (0.87-1.13) 07/31/22 04:13 ABG pH 7.500 pH Units (7.350-7.450) H 08/03/22 03:35 ABG pCO2 26.7 mm Hg 08/03/22 03:35 ABG pO2 129.6 mm Hg (80.0-90.0) H 08/03/22 03:35 ABG HCO3 20.4 mmol/L (20.0-26.0) 08/03/22 03:35 ABG O2 Saturation 98.7 % (95.0-99.0) 08/03/22 03:35 ABG O2 Content 13.5 (0.0-44) 08/03/22 03:35 ABG Base Excess -2.0 mmol/L (-2.0-3.0) 08/03/22 03:35 ABG Hemoglobin 9.7 gm/dl (14.0-18.0) L 08/03/22 03:35 ABG Carboxyhemoglobin 1.5 % (0.0-5.0) 08/03/22 03:35 ABG Methemoglobin 0.4 % (0.0-1.5) 08/03/22 03:35 VBG pH 7.362 (7.320-7.420) 07/25/22 19:37 Oxyhemoglobin 96.8 % (95.0-99.0) 08/03/22 03:35 FiO2 30 % 08/03/22 03:35 Sodium 143 mmol/L (137-145) 08/03/22 04:40 Potassium 3.3 mmol/L (3.6-5.0) L 08/03/22 04:40 Chloride 107.9 mmol/L (98-107) H 08/03/22 04:40 Carbon Dioxide 21 mmol/L (22-30) L 08/03/22 04:40 Anion Gap 17 mmol/L 08/03/22 04:40 BUN 37 mg/dL (9-20) H 08/03/22 04:40 Creatinine 1.2 mg/dL (0.8-1.3) 08/03/22 04:40 Estimated GFR 59 ml/min 08/03/22 04:40 BUN/Creatinine Ratio 31 % 08/03/22 04:40 Glucose 111 mg/dL (75-100) H 08/03/22 04:40 POC Glucose 111 mg/dL (70-105) H 08/02/22 23:30 Hemoglobin A1c 12.3 % (4-6) H 07/27/22 12:13 Lactic Acid 9.70 mmol/L (0.7-2.0) H* 07/26/22 15:36 Calcium 5.5 mg/dL (8.4-10.2) L* 08/03/22 04:40 Phosphorus 2.60 mg/dL (2.5-4.5) 08/03/22 04:40 Magnesium 1.60 mg/dL (1.7-2.3) L 08/03/22 04:40 Total Bilirubin 0.30 mg/dL (0.1-1.2) 07/27/22 03:50 AST 64 units/L (5-40) H 07/27/22 03:50 ALT 31 units/L (7-56) 07/27/22 03:50 Alkaline Phosphatase 61 units/L (35-129) 07/27/22 03:50 Ammonia 64.0 umol/L (25-60) H 07/25/22 19:37 Total Creatine Kinase 158 units/L (55-170) 07/25/22 19:37 CK-MB (CK-2) < 1.0 ng/mL (0.0-4.0) 07/25/22 19:37 CK-MB (CK-2) Rel Index 0.6 (0-4) 07/25/22 19:37 Troponin T 0.049 ng/mL (0.00-0.029) H D 07/26/22 15:36 Total Protein 4.1 g/dL (6.3-8.2) L D 07/27/22 03:50 Albumin 2.1 g/dL (3.9-5) L 07/27/22 03:50 Albumin/Globulin Ratio 1.1 % 07/27/22 03:50 Triglycerides 362 mg/dL (2-149) H 07/25/22 19:37 Cholesterol 126 mg/dL (50-199) 07/25/22 19:37 LDL Cholesterol Direct 44 mg/dL (50-130) L 07/25/22 19:37 HDL Cholesterol 34 mg/dL (40-59) L 07/25/22 19:37 Cholesterol/HDL Ratio 3.70 % 07/25/22 19:37 TSH 2.170 mlU/mL (0.270-4.200) 07/25/22 19:37 Free T4 1.18 ng/dL (0.76-1.46) 07/25/22 19:37 Urine Color Lin (Yellow) 07/26/22 08:31 Urine Turbidity Cloudy (Clear) 07/26/22 08:31 Specific Delta (Man) 1.010 (1.003-1.030) 07/26/22 08:31 Ur Protein (Man) <30 mg dl mg/dL (Negative) 07/26/22 08:31 Ur Ketones (Man) Negative (Negative) 07/26/22 08:31 Ur Nitrite (Man) Negative (Negative) 07/26/22 08:31 Ur Reducing Substances Not Reportable 07/26/22 08:31 Urine Bilirubin (Man) Negative (Negative) 07/26/22 08:31 Urine Ictotest Not Reportable 07/26/22 08:31 Leukocyte Esterase (Man) Trace (Negative) 07/26/22 08:31 Urine WBC (Auto) < 1.0 /HPF (0.0-6.0) 07/26/22 08:31 Urine RBC (Auto) 1.0 /HPF (0.0-6.0) 07/26/22 08:31 U Epithel Cells (Auto) 3.0 /HPF (0-13.0) 07/26/22 08:31 Urine RBC (Manual) 5-10 (Negative) 07/26/22 08:31 Ur Renal Epithelial Cell 3 /LPF 07/26/22 08:31 Urine Mucus Few /HPF 07/26/22 08:31 Urine Creatinine 118.4 mg/dL (0.1-20.0) H 07/26/22 18:10 Protein/Creatinin Ratio 1.23 07/26/22 18:10 Urine Sodium 108 mmol/L 07/26/22 18:10 Urine Total Protein 146 mg/dL (5-11.8) H 07/26/22 18:10 Yañez/IV: Voiding Method Indwelling Catheter Active Medications - Current Medications Current Medications: Generic Name Dose Route Start Last Admin Trade Name Freq PRN Reason Stop Dose Admin Acetaminophen 650 mg 07/26/22 00:31 07/31/22 23:30 Acetaminophen 325 Mg Tab PO 650 mg Q4H PRN Administration Pain MILD(1-3)/Fever >100.5/LANTIGUA Acetaminophen 650 mg 07/26/22 02:04 Acetaminophen 650 Mg Rect Supp DC Q4H PRN Pain, Mild (1-3) Albuterol 2.5 mg 07/26/22 00:31 Albuterol 2.5 Mg/3 Ml Nebu IH Q3HRT PRN Shortness Of Breath Amiodarone HCl 200 mg 07/29/22 15:00 08/02/22 21:03 Amiodarone 200 Mg Tab PO 200 mg BID LIZZIE Administration Atorvastatin Calcium 40 mg 07/26/22 22:00 08/02/22 21:03 Atorvastatin 40 Mg Tab PO 40 mg QHS LIZZIE Administration Dextrose 50 ml 07/27/22 09:25 08/02/22 23:06 Dextrose 50% In Water (25gm) 50 Ml Syringe IV 15 ml Q30MIN PRN Administration Hypoglycemia Protocol Famotidine 10 mg 07/28/22 10:00 08/02/22 21:03 Famotidine 10 Mg Tab FEEDTUBE 10 mg BID LIZZIE Administration Hydrocortisone Sodium Succinate 50 mg 08/02/22 22:00 08/02/22 21:02 Hydrocortisone Sod Succ 100 Mg/2 Ml Vial IV 50 mg Q12HR [facility] Administration Cefepime HCl 2 gm in 100 mls @ 200 mls/hr 07/27/22 11:00 08/03/22 04:29 Cefepime/Ns 2 Gm/100 Ml IV 08/03/22 11:29 Infused Q24H [facility] Infusion Protocol Magnesium Sulfate 1 gm/ Sodium 102 mls @ 52 mls/hr 08/03/22 06:10 08/03/22 06:56 Chloride IV 08/03/22 08:07 52 mls/hr ONCE ONE Administration Insulin Glargine 30 units 08/03/22 22:00 Insulin Glargine 100 Units/Ml SUB-Q QHS [facility] Insulin Human Regular 0 units 07/27/22 12:00 08/03/22 05:29 Insulin Regular, Human 100 Units/1 Ml SUB-Q Not Given Q6H [facility] Protocol Multi-Ingred Cream/Lotion/Oil/Oint 1 applic 07/27/22 03:17 07/27/22 03:35 Mineral Oil/Petrolatum, White Ophth Oint 3.5 Gm OU 1 applic PRN PRN Administration Dry Eye(s) Nitroglycerin 0.4 mg 07/26/22 00:31 Nitroglycerin 0.4 Mg Tab Subl SL Q5M PRN Chest Pain Ondansetron HCl 4 mg 07/26/22 00:31 Ondansetron 4 Mg/2 Ml Inj IV Q8H PRN Nausea And Vomiting Sodium Bicarbonate 650 mg 07/29/22 20:00 08/02/22 20:16 Sodium Bicarbonate 650 Mg Tab PO 650 mg TID LIZZIE Administration Sodium Chloride 10 ml 07/26/22 10:00 08/02/22 21:03 Sodium Chloride 0.9% 10 Ml Flush Syringe IV 10 ml BID LIZZIE Administration Sodium Chloride 10 ml 07/26/22 00:31 Sodium Chloride 0.9% 10 Ml Flush Syringe IV PRN PRN LINE FLUSH Sodium Phosphate 250 mg 08/02/22 18:00 08/03/22 05:29 K-Phos Neutral 250 Mg Tab FEEDTUBE 08/03/22 12:01 250 mg Q6HR LIZZIE Administration Nutrition/Malnutrition Assess - Dietary Evaluation Nutrition/Malnutrition Findings: Nutrition Notes Start: 07/26/22 10:25 Freq: Status: Active Protocol: Document 07/31/22 14:58 PEACE (Rec: 07/31/22 15:04 PEACE [id number]) Nutrition Notes Initial or Follow up Reassessment Current Diagnosis Acute Kidney Injury,Diabetes, Hypertension,Respiratory Failure,Hyperlipidemia Other Pertinent Diagnosis s/p cardiac arrest, s/p DKA, acute metabolic encephalopathy Current Diet TF - Glucerna 1.2 at 45ml/hr Labs/Tests Na 146 K 3.4 BUN 53 Cr 1.6 BG 151 Pertinent Medications 40mEq KCl Height 5 ft 5 in Weight 49.8 kg [place] Body Weight (kg) 61.81 BMI 18.2 Subjective/Other Information Observed Glucerna 1.2 infusing at goal rate; pt tolerating TF. MD ordered 250ml water flush q4h. Pt remains on vent support; renal function improving. Percent of energy/protein needs met: 93% energy 100% pro Burn Absent Trauma Absent #1 Nutrition Diagnosis Inadequate oral intake Diagnosis Progress(for reassessment Continues documentation) Is patient on ventilator? Yes Is Patient Ambulatory and/or Out of Bed No REE-([place] [facility]-confined to bed) 1398.456 Calculation [facility] Additional Notes Pro needs 0.8-1.2g/k-60g/ day Fluid needs per MD. Nutrition Intervention Nutrition Support: Continue Glucerna 1.2 at 45ml/ hr with 250ml water flush q4h until hypernatremia resolved. Kcal 1,296 Protein (gm) 65 Carbohydrates (gm) 124 Fat (gm) 65 Fluid (mL) 869 Fiber (gm) 17 Goal #1 TF tolerance Goal #2 TF to provide at least 75% energy and pro needs Follow-Up By: 08/07/22 Additional Comments F/U: stable TF, trach/PEG placement, vent status, renal function, BM
--- NOTE | 2022-08-02 11:44 | Progress Note ---
Assessment and Plan Patient is 77-year-old male with a past medical history of hypertension, paroxysmal A. 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 Anoxic brain injury Status post cardiac arrest Acute respiratory failure-pulmonology following AMS-neurology following DKA Acute renal failure-nephrology following Sepsis PAF Hypertension Diabetes History of CVA 2019 Lzhqorwvpekffomp-qpow-gyp following Echo 07/26/2022-technically difficult study due to patient on ventilator, poor endocardial definition. Very grossly in subcostal views probably normal left ventricular systolic function EF 50 to 60% no pericardial effusion. Consider repeating echo when patient is more stable and off ventilator Plan: Suspect troponin elevation in setting of sepsis, acute renal failure, and DKA S/p cardiac arrest with unknown rhythm in setting of sepsis, acute renal failure, DKA Telemetry reviewed: patient remains in afib Continue amiodarone 200 mg p.o. twice daily Due to anoxic brain injury thrombocytopenia hold anticoagulation at this time. Will defer to neuro recs regarding anticoagulation Patient for trach and PEG today Patient seen in conjunction with Dr. Salmeron who agrees this plan of care t - Patient Problems (1) History of CVA (cerebrovascular accident) Current Visit: Yes Status: Acute (2) Acute respiratory failure Current Visit: Yes Status: Acute (3) Cardiac arrest Current Visit: Yes Status: Acute (4) DKA (diabetic ketoacidosis) Current Visit: Yes Status: Acute (5) Leukocytosis Current Visit: Yes Status: Acute (6) Atrial fibrillation with RVR Current Visit: No Status: Acute (7) HLD (hyperlipidemia) Current Visit: No Status: Acute (8) HTN (hypertension) Current Visit: No Status: Acute Subjective Date of service: 08/02/22 Principal diagnosis: Hypernatremia, ARF Interval history: Patient for trach and PEG A. fib 90s to 100s. No acute events overnight Objective Vital Signs Temp Pulse Pulse Resp BP Pulse Ox 08/02/22 10:00 83 28 H 138/75 94 08/02/22 09:04 79 27 H 100 08/02/22 08:00 99.2 F 73 85 25 H 143/70 96 08/02/22 07:00 80 38 H 157/79 93 08/02/22 06:00 80 27 H 147/82 97 08/02/22 05:00 86 27 H 153/80 97 08/02/22 04:10 84 1 L 153/80 97 08/02/22 04:00 99.4 F 84 86 31 H 139/82 97 08/02/22 03:00 95 H 24 150/87 96 08/02/22 02:00 102 H 32 H 152/89 97 08/02/22 01:00 88 30 H 145/82 91 08/02/22 00:05 85 12 149/83 97 08/02/22 00:00 98.4 F 98 H 98 H 25 H 149/83 97 08/01/22 23:00 87 29 H 154/79 95 08/01/22 22:04 87 19 153/86 96 08/01/22 22:00 91 H 30 H 153/86 95 08/01/22 21:00 88 30 H 162/87 96 08/01/22 20:13 90 14 162/83 94 08/01/22 20:00 99.2 F 87 29 H 162/83 95 08/01/22 19:11 96 H 92 H 29 H 96 08/01/22 19:00 87 31 H 161/75 92 08/01/22 18:03 98.5 F 08/01/22 18:00 91 H 31 H 158/90 97 08/01/22 17:00 90 29 H 158/90 08/01/22 16:00 91 H 87 30 H 144/70 94 08/01/22 15:46 92 H 154/68 94 08/01/22 15:00 92 H 30 H 154/68 96 08/01/22 14:00 92 H 31 H 146/79 97 08/01/22 13:00 86 29 H 138/82 96 08/01/22 12:50 86 138/82 96 08/01/22 12:00 89 106 H 30 H 146/79 96 - Physical Examination General: Other (Intubated) HEENT: Positive: Mucus Membranes Dry Neck: Positive: trachea midline Cardiac: Positive: irregularly irregular Lungs: Positive: Ventilated Respirations Neuro: Positive: Other (Unable to assess) Abdomen: Positive: Soft Skin: Positive: Cool. Negative: Rash, Suspicious Lesions, Ulceration Extremities: Present: upper extr. pulses, Cool, Other (Blisters noted on lower extremities) - Labs and Meds CBC 08/02/22 Range/Units 04:48 WBC 10.3 (4.5-11.0) K/mm3 RBC 3.61 L (3.65-5.03) M/mm3 Hgb 10.2 L (11.8-15.2) gm/dl Hct 31.9 L (35.5-45.6) % Plt Count 130 L (140-440) K/mm3 Comprehensive Metabolic Panel 08/02/22 Range/Units 04:48 Sodium 148 H (137-145) mmol/L Potassium 3.4 L (3.6-5.0) mmol/L Chloride 113.1 H (98-107) mmol/L Carbon Dioxide 16 L (22-30) mmol/L BUN 45 H (9-20) mg/dL Creatinine 1.3 (0.8-1.3) mg/dL Glucose 213 H (75-100) mg/dL Calcium 5.9 L* (8.4-10.2) mg/dL - Imaging and Cardiology EKG: report reviewed, image reviewed Echo: report reviewed
--- NOTE | 2022-08-02 12:00 | Procedure Note ---
Date of procedure: 08/02/22 Pre-op diagnosis: respiratory failure. anoxic brain injury Post-op diagnosis: same (diffuse gastritis) Procedure: 1. flexible bronchoscopy 2. broncheoalveolar lavage 3. esophagogastroduodenoscopy 4. gastric biopsy narrative: the patient was brought to the operating room. under general anesthesia, flexible bronchoscopy was done to aid in percutaneous tracheostomy placement. there was moderate secretions in bilateral main bronchi. irrigation and suctioning of secretions was done with 20cc saline until secretions are cleared. after being finished with tracheostomy part. we turned our attention to PEG tube replacement. a flexible EGD scope was introduced into the stomach and PEG tube was exchanged. there was diffuse gastritis with a single antral ulcer and multiple body erosions of the stomach. biopsies taken from antrum with cold forceps. and sent to lab for h.pylori testing. please find Dr Vargas's note for full details on tracheostomy and PEG replacement. Anesthesia: GETA Surgeon: DIANA LAWSON Head Packager: CLAYTON VARGAS Estimated blood loss: minimal IV fluids: 0 Pathology: list (gastric antral biopsy for H.pylori) Specimen disposition: to lab Condition: stable Disposition: ICU
--- NOTE | 2022-08-02 12:02 | Operative Report ---
Operative Report Operative Report: Date of surgery: Preoperative diagnosis: Vent dependence, dysphagia Postoperative diagnosis: Same as above Procedure: Percutaneous tracheostomy, EGD changing of gtube Surgeon: Dr. Vargas Wad Impregnator: Dr. Romero Anesthesia: Geta, local Findings: Good placement of tracheostomy as visualized by fiberoptic bronchos copy. Normal EGD EBL: LESS than 5 cc Specimen: None Complications: None Disposition: Stable to ICU HPI and indication: Patient is a woman with ventilator dependence and dysphagia. Procedure in detail: The patient was identified in the ICU and brought down to the operating room and positioned in supine position in the OR table. Consent was verified on the chart timeout was performed. The neck was prepped and draped in usual sterile fashion. Anesthesia was administered. A shoulder roll was placed, with the patient's neck mildly hyperextended. ------performed fiberoptic bronchoscopy throughout the entire procedure. The fiberoptic bronchoscope was inserted through the endotracheal tube via the adapter and the trachea examined. The trachea was unremarkable, and the 8.0 ET tube was approximately 3 cm from andi at 24 cm at the lip. 1% lidocaine was infiltrated into the skin and subcutaneous tissue approximately 2 fingerbreadths above the andi. A 2 cm incision was made in a horizontal fashion using a 15 blade. Using a hemostat the soft tissues were bluntly dissected until the trachea was encountered. The ET tube was then pulled back slowly to 16 cm. Using the introducer needle, the trachea was entered under direct visualization. The wire was passed down the trachea towards the andi. Introducer needle was then removed. The trachea was then serially dilated, after which a 8 Tamazight Shiley tracheostomy tube was inserted. The balloon was visualized via fiberoptic bronchoscopy. The balloon was inflated, patient placed back on ventilator. There was end-tidal CO2 detected and tidal volumes assessed which were satisfactory. The bronchoscope was then placed through the tracheostomy and showed good positioning of the tracheostomy approximately 4 to 5 cm above the andi and no bleeding. A drain sponge was placed between the skin and tracheostomy. The tracheostomy was secured to the patient's neck using a tracheostomy strap and prolene suture. A post op chest x-ray is pending. A mouthguard was placed through which a flexible endoscope was passed through the mouth and into the esophagus. The NG tube was visualized along the way. The endoscope was advanced through the esophagus and into the stomach. The stomach was unremarkable. EGD findings are dictated by Dr. Romero. The old gtube is visualized. Its balloon is diflated and a new 20gauge feeding tube is placed and visualized. The NG tube was withdrawn. The stomach was then desufflated and the endoscope withdrawn. The patient tolerated the procedure well. All sharps were disposed of appropriately. The patient was taken back to the ICU in stable condition.
--- NOTE | 2022-08-02 12:43 | Progress Note ---
Assessment and Plan Assessment: Severe Renal Failure secondary to IATN on CKD DKA Diabetes Mellitus History of Hypertension but now Hypotensive Hypokalemia Hypernatremia Acidosis Hypophosphatemia Hypocalcemia Plan: Renal labs reviewed. Serum creatinine stable at 1.3 today, UOP 1050 ml Renal ultrasound reviewed. No hydronephrosis. Urine lytes reviewed. Has proteinuria likely from uncontrolled DM Sodium level 148 today, yesterday's was 147 S/P IVF. Increase free water flush to 350 ml every 4 hours Hypokalemia- KCL 40 meq via feeding tube x 1 noted Acidosis-on Sodium Bicarbonate 650 mg po TID Hypocalcemia- in repletion with IV Calcium Gluconate DKA-S/P insulin drip. On SQ inuslin. Hypotension-S/P Norepi drip CXR today- no acute findings Obtain daily weights Monitor I/O's daily Avoid nephrotoxic agents Continue to monitor renal function closely No acute indication for REAL ESTATE REPRESENTATIVE Plan of care reviewed by Dr. Isaacs Subjective Date of service: 08/02/22 Principal diagnosis: Hypernatremia, ARF Interval history: Patient had PEG and trach placed today. Was NPO since midnight last night so did not get any free water flush Objective - Vital Signs Vital signs: Vital Signs - 12hr 08/02/22 08/02/22 08/02/22 01:00 02:00 03:00 Temperature Pulse Rate 88 102 H 95 H Pulse Rate [ From Monitor] Respiratory 30 H 32 H 24 Rate Blood Pressure 145/82 152/89 150/87 O2 Sat by Pulse 91 97 96 Oximetry 08/02/22 08/02/22 08/02/22 04:00 04:10 05:00 Temperature 99.4 F Pulse Rate 84 84 86 Pulse Rate [ 86 From Monitor] Respiratory 31 H 1 L 27 H Rate Blood Pressure 139/82 153/80 153/80 O2 Sat by Pulse 97 97 97 Oximetry 08/02/22 08/02/22 08/02/22 06:00 07:00 08:00 Temperature 99.2 F Pulse Rate 80 80 73 Pulse Rate [ 85 From Monitor] Respiratory 27 H 38 H 25 H Rate Blood Pressure 147/82 157/79 143/70 O2 Sat by Pulse 97 93 96 Oximetry 08/02/22 08/02/22 08/02/22 09:04 10:00 11:00 Temperature Pulse Rate 79 83 Pulse Rate [ From Monitor] Respiratory 27 H 28 H Rate Blood Pressure 138/75 138/75 O2 Sat by Pulse 100 94 Oximetry 08/02/22 08/02/22 12:00 12:07 Temperature Pulse Rate 87 88 Pulse Rate [ 87 From Monitor] Respiratory 25 H 22 Rate Blood Pressure 128/81 O2 Sat by Pulse 98 100 Oximetry - General Appearance General appearance: intubated, other (has trach, eyes open) EENT: ATNC Respiratory: Present: Decreased Breath Sounds Cardiology: S1S2 Gastrointestinal: normoactive bowel sounds Integumentary: warm and dry Neurologic: other (Eyes open) Musculoskeletal: joint swelling, other (has 2-3+ edema with blisters to Upper and Lower extremities) - Lab 08/02/22 04:48 08/02/22 04:48 Most recent lab results ABG pH 7.513 pH Units (7.350-7.450) H 07/31/22 03:25 ABG pCO2 25.7 mm Hg 07/31/22 03:25 ABG pO2 64.1 mm Hg (80.0-90.0) L 07/31/22 03:25 ABG HCO3 20.2 mmol/L (20.0-26.0) 07/31/22 03:25 ABG O2 Saturation 95.4 % (95.0-99.0) 07/31/22 03:25 Calcium 5.9 mg/dL (8.4-10.2) L* 08/02/22 04:48 Phosphorus 2.30 mg/dL (2.5-4.5) L 08/02/22 04:48 Magnesium 2.00 mg/dL (1.7-2.3) 08/02/22 04:48 Urine Creatinine 118.4 mg/dL (0.1-20.0) H 07/26/22 18:10 Urine Sodium 108 mmol/L 07/26/22 18:10 Urine Total Protein 146 mg/dL (5-11.8) H 07/26/22 18:10 Medications & Allergies - Medications Allergies/Adverse Reactions: Allergies aspirin Allergy (Verified 02/15/20 13:24) Swelling iron Allergy (Verified 02/15/20 13:24) Itching Home Medications: Home Medications Medication Instructions Recorded Confirmed Last Taken Type metFORMIN [Glucophage] 1,000 mg PO BID 0302/15/20 02/14/20 History Acetaminophen [Acetaminophen ER 650 mg PO Q8HR PRN #20 tablet.er 10/21/19 02/15/20 Unknown Rx TAB] ALBUTEROL NEB's [Proventil 0.083% 2.5 mg IH Q3HRT PRN #30 nebu 03/09/20 Unknown Rx NEBS] Aspirin EC [Halfprin EC] 81 mg PO QDAY #30 tablet. 03/09/20 Unknown Rx AtorvaSTATin [Lipitor] 40 mg FEEDTUBE QHS #30 tablet 03/09/20 Unknown Rx Famotidine [Pepcid] 20 mg FEEDTUBE DAILY #30 tablet 03/09/20 Unknown Rx Insulin Glargine [Lantus VIAL] 50 units SUB-Q QAMDIAB #1 vial 03/09/20 Unknown Rx Insulin Glargine [Lantus VIAL] 50 units SUB-Q QHS #1 vial 03/09/20 Unknown Rx Insulin Regular, Human [HumuLIN R] 0 units SUB-Q Q6HR #1 vial 03/09/20 Unknown Rx Metoclopramide [Reglan ORAL LIQ] 5 mg FEEDTUBE Q6H PRN 30 Days 03/09/20 Unknown Rx Metoprolol [Lopressor TAB] 100 mg FEEDTUBE BID #60 tablet 03/09/20 Unknown Rx amLODIPine 10 mg FEEDTUBE QDAY #30 tablet 03/09/20 Unknown Rx traMADoL [Ultram 50 MG tab] 50 mg FEEDTUBE Q6HR PRN #10 tablet 03/09/20 Unknown Rx Active Medications: Generic Name Dose Route Start Last Admin Trade Name Freq PRN Reason Stop Dose Admin Acetaminophen 650 mg 07/26/22 00:31 07/31/22 23:30 Acetaminophen 325 Mg Tab PO 650 mg Q4H PRN Administration Pain MILD(1-3)/Fever >100.5/LANTIGUA Acetaminophen 650 mg 07/26/22 02:04 Acetaminophen 650 Mg Rect Supp [place] Q4H PRN Pain, Mild (1-3) Albuterol 2.5 mg 07/26/22 00:31 Albuterol 2.5 Mg/3 Ml Nebu IH Q3HRT PRN Shortness Of Breath Amiodarone HCl 200 mg 07/29/22 15:00 08/02/22 09:09 Amiodarone 200 Mg Tab PO 200 mg BID LIZZIE Administration Atorvastatin Calcium 40 mg 07/26/22 22:00 08/01/22 21:11 Atorvastatin 40 Mg Tab PO 40 mg QHS LIZZIE Administration Dextrose 50 ml 07/27/22 09:25 Dextrose 50% In Water (25gm) 50 Ml Syringe IV Q30MIN PRN Hypoglycemia Protocol Famotidine 10 mg 07/28/22 10:00 08/02/22 09:09 Famotidine 10 Mg Tab FEEDTUBE 10 mg BID LIZZIE Administration Hydrocortisone Sodium Succinate 50 mg 08/02/22 22:00 Hydrocortisone Sod Succ 100 Mg/2 Ml Vial IV Q12HR LIZZIE Cefepime HCl 2 gm in 100 mls @ 200 mls/hr 07/27/22 11:00 08/02/22 10:18 Cefepime/Ns 2 Gm/100 Ml IV 08/03/22 11:29 200 mls/hr Q24H LIZZIE Administration Protocol Dextrose 1,000 mls @ 100 mls/hr 08/02/22 10:00 D5w IV 08/02/22 19:59 DIRECT LIZZIE Insulin Glargine 30 units 07/28/22 22:00 08/02/22 09:10 Insulin Glargine 100 Units/Ml SUB-Q 30 units BID LIZZIE Administration Insulin Human Regular 0 units 07/27/22 12:00 08/02/22 05:50 Insulin Regular, Human 100 Units/1 Ml SUB-Q 3 units Q6H LIZZIE Administration Protocol Multi-Ingred Cream/Lotion/Oil/Oint 1 applic 07/27/22 03:17 07/27/22 03:35 Mineral Oil/Petrolatum, White Ophth Oint 3.5 Gm OU 1 applic PRN PRN Administration Dry Eye(s) Nitroglycerin 0.4 mg 07/26/22 00:31 Nitroglycerin 0.4 Mg Tab Subl SL Q5M PRN Chest Pain Ondansetron HCl 4 mg 07/26/22 00:31 Ondansetron 4 Mg/2 Ml Inj IV Q8H PRN Nausea And Vomiting Potassium Chloride 40 meq 08/02/22 10:00 08/02/22 10:15 Potassium Chloride 20 Meq Packet FEEDTUBE 08/02/22 14:00 40 meq ONCE LIZZIE Administration Sodium Bicarbonate 650 mg 07/29/22 20:00 08/02/22 09:09 Sodium Bicarbonate 650 Mg Tab PO 650 mg TID LIZZIE Administration Sodium Chloride 10 ml 07/26/22 10:00 08/02/22 09:10 Sodium Chloride 0.9% 10 Ml Flush Syringe IV 10 ml BID LIZZIE Administration Sodium Chloride 10 ml 07/26/22 00:31 Sodium Chloride 0.9% 10 Ml Flush Syringe IV PRN PRN LINE FLUSH Sodium Phosphate 250 mg 08/02/22 18:00 K-Phos Neutral 250 Mg Tab FEEDTUBE 08/03/22 12:01 Q6HR LIZZIE
--- NOTE | 2022-08-02 12:51 | Post Anesthesia Evaluation ---
- Post Anesthesia Evaluation Patient Participated: No Airway Patent: Yes Stable Respiratory Function: Yes Nausea/Vomiting: No (unable to assess) Temp > 96.8F: Yes Pain Manageable: Yes (unable to assess) Adequeate Hydration: Yes Anesthesia Complications: No Patient on Ventilator: Yes Other Comments: Transported to ICU by AA and MINISTER ASSISTANT with monitors and O2/Ambu. Handoff to PROGRAM COORDINATOR EXECUTIVE EDUCATION at bedside.
--- NOTE | 2022-08-02 15:30 | XRay Report ---
CHEST 1 VIEW 08/02/2022 1:29 PM INDICATION / CLINICAL INFORMATION: postop tracheostomy. COMPARISON: One view of the chest from 08/01/2022. FINDINGS: SUPPORT DEVICES: A tracheostomy tube has been placed with expected positioning. The esophagogastric t ube has been removed. HEART / MEDIASTINUM: No significant abnormality. LUNGS / PLEURA: No significant pulmonary abnormality. No significant pleural effusion. No pneumothora x. ADDITIONAL FINDINGS: No significant additional findings. IMPRESSION: 1. No acute abnormality of the chest. 2. Expected positioning of the tracheostomy tube. Signer Name: Chet Pugh MD Signed: 08/02/2022 3:25 PM Workstation Name: [employer]
[2022-08-02] MEDS: K-PHOS NEUTRAL 250 MG TAB FEEDTUBE SCH (17:49)
[2022-08-02] MEDS ORDERED: HYDROCORTISONE SOD SUCC 100 MG/2 ML VIAL IV SCH (22:00)
[2022-08-02] MEDS: DEXTROSE 50% IN WATER (25GM) 50 ML SYRINGE IV PRN (23:06)
[2022-08-03] MEDS: FREE WATER PO SCH ×6 (02:00→21:42)
[2022-08-03 04:01] LABS: ABG HCO3 20.4 mmol/L (20.0-26.0); ABG Methemoglobin 0.4 % (0.0-1.5); ABG Oxygen Saturation 98.7 % (95.0-99.0); ABG PCO2 26.7 mm Hg; ABG PH 7.5 pH Units (7.350-7.450); ABG PO2 129.6 mm Hg (80.0-90.0)
[2022-08-03] MEDS: INSULIN REGULAR, HUMAN 100 UNITS/1 ML SUB-Q SCH ×4 (04:34→17:29)
[2022-08-03] MEDS: K-PHOS NEUTRAL 250 MG TAB FEEDTUBE SCH ×3 (05:29→12:04)
[2022-08-03 05:32] LABS: Hematocrit 29.8 % (35.5-45.6); Hemoglobin 9.5 gm/dl (11.8-15.2); Mean Corpuscular HGB Conc 32 % (32-34); Mean Corpuscular Volume 89 fl (84-94); Platelet Count 142 K/mm3 (140-440); Red Blood Count 3.36 M/mm3 (3.65-5.03); Red Cell Distribution Width 15.7 % (13.2-15.2)
[2022-08-03 06:05] LABS: Calcium 5.5 mg/dL (8.4-10.2)
[2022-08-03] MEDS ORDERED: MAGNESIUM SULFATE 1 GM in SODIUM CHLORIDE 0.9% 100 ML IV ONE (06:10)
[2022-08-03] MEDS ORDERED: CALCIUM GLUCONATE 1,000 MG/NS 100 ML PREMIX IV ONE (06:11)
[2022-08-03] MEDS: SODIUM BICARBONATE 650 MG TAB PO SCH ×3 (08:36→20:13)
[2022-08-03] MEDS ORDERED: POTASSIUM CHLORIDE 20 MEQ PACKET FEEDTUBE SCH (09:00)
--- NOTE | 2022-08-03 09:23 | Progress Note ---
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 No hydronephrosis. Urine lytes reviewed. Has proteinuria likely from uncontrolled DM DKA-S/P insulin drip. On SQ inuslin. Hypotension-S/P Norepi drip CXR today- no acute findings Obtain daily weights Monitor I/O's daily Avoid nephrotoxic agents Continue to monitor renal function closely No acute indication for [employer] will sign off. Subjective Date of service: 08/03/22 Principal diagnosis: Hypernatremia, ARF Interval history: making urine Objective - Vital Signs Vital signs: Vital Signs - 12hr 08/02/22 08/02/22 08/02/22 22:00 23:00 23:15 Temperature Pulse Rate 70 71 69 Pulse Rate [ From Monitor] Respiratory 16 16 19 Rate Blood Pressure 151/80 141/73 141/73 O2 Sat by Pulse 100 99 99 Oximetry 08/02/22 08/02/22 08/03/22 23:16 23:17 00:00 Temperature 98.8 F Pulse Rate 70 67 Pulse Rate [ 70 From Monitor] Respiratory 24 21 Rate Blood Pressure 128/71 O2 Sat by Pulse 99 99 Oximetry 08/03/22 08/03/22 08/03/22 00:05 01:00 02:00 Temperature Pulse Rate 75 76 78 Pulse Rate [ From Monitor] Respiratory 2 L 27 H 20 Rate Blood Pressure 128/71 134/72 138/76 O2 Sat by Pulse 99 99 100 Oximetry 08/03/22 08/03/22 08/03/22 03:00 04:00 04:18 Temperature 99.5 F Pulse Rate 79 78 74 Pulse Rate [ 78 From Monitor] Respiratory 16 14 6 L Rate Blood Pressure 124/66 132/76 132/76 O2 Sat by Pulse 100 100 100 Oximetry 08/03/22 08/03/22 08/03/22 05:00 06:01 07:00 Temperature Pulse Rate 71 78 72 Pulse Rate [ From Monitor] Respiratory 20 30 H 16 Rate Blood Pressure 134/65 152/74 145/64 O2 Sat by Pulse 98 100 99 Oximetry 08/03/22 08/03/22 08/03/22 07:49 07:53 08:00 Temperature 99.0 F Pulse Rate 69 77 77 Pulse Rate [ From Monitor] Respiratory 26 H 26 H Rate Blood Pressure 145/64 145/64 137/65 O2 Sat by Pulse 100 98 92 Oximetry - Lab 08/03/22 04:40 08/03/22 04:40 Most recent lab results ABG pH 7.500 pH Units (7.350-7.450) H 08/03/22 03:35 ABG pCO2 26.7 mm Hg 08/03/22 03:35 ABG pO2 129.6 mm Hg (80.0-90.0) H 08/03/22 03:35 ABG HCO3 20.4 mmol/L (20.0-26.0) 08/03/22 03:35 ABG O2 Saturation 98.7 % (95.0-99.0) 08/03/22 03:35 Calcium 5.5 mg/dL (8.4-10.2) L* 08/03/22 04:40 Phosphorus 2.60 mg/dL (2.5-4.5) 08/03/22 04:40 Magnesium 1.60 mg/dL (1.7-2.3) L 08/03/22 04:40 Urine Creatinine 118.4 mg/dL (0.1-20.0) H 07/26/22 18:10 Urine Sodium 108 mmol/L 07/26/22 18:10 Urine Total Protein 146 mg/dL (5-11.8) H 07/26/22 18:10 Medications & Allergies - Medications Allergies/Adverse Reactions: Allergies aspirin Allergy (Verified 02/15/20 13:24) Swelling iron Allergy (Verified 02/15/20 13:24) Itching Home Medications: Home Medications Medication Instructions Recorded Confirmed Last Taken Type metFORMIN [Glucophage] 1,000 mg PO BID 02/11/14 02/15/20 02/14/20 History Acetaminophen [Acetaminophen ER 650 mg PO Q8HR PRN #20 tablet.er 10/21/19 02/15/20 Unknown Rx TAB] ALBUTEROL NEB's [Proventil 0.083% 2.5 mg IH Q3HRT PRN #30 nebu 03/09/20 Unknown Rx NEBS] Aspirin EC [Halfprin EC] 81 mg PO QDAY #30 tablet. 03/09/20 Unknown Rx AtorvaSTATin [Lipitor] 40 mg FEEDTUBE QHS #30 tablet 03/09/20 Unknown Rx Famotidine [Pepcid] 20 mg FEEDTUBE DAILY #30 tablet 03/09/20 Unknown Rx Insulin Glargine [Lantus VIAL] 50 units SUB-Q QAMDIAB #1 vial 03/09/20 Unknown Rx Insulin Glargine [Lantus VIAL] 50 units SUB-Q QHS #1 vial 03/09/20 Unknown Rx Insulin Regular, Human [HumuLIN R] 0 units SUB-Q Q6HR #1 vial 03/09/20 Unknown Rx Metoclopramide [Reglan ORAL LIQ] 5 mg FEEDTUBE Q6H PRN 30 Days 03/09/20 Unknown Rx Metoprolol [Lopressor TAB] 100 mg FEEDTUBE BID #60 tablet 03/09/20 Unknown Rx amLODIPine 10 mg FEEDTUBE QDAY #30 tablet 03/09/20 Unknown Rx traMADoL [Ultram 50 MG tab] 50 mg FEEDTUBE Q6HR PRN #10 tablet 03/09/20 Unknown Rx Active Medications: Generic Name Dose Route Start Last Admin Trade Name Freq PRN Reason Stop Dose Admin Acetaminophen 650 mg 07/26/22 00:31 07/31/22 23:30 Acetaminophen 325 Mg Tab PO 650 mg Q4H PRN Administration Pain MILD(1-3)/Fever >100.5/LANTIGUA Acetaminophen 650 mg 07/26/22 02:04 Acetaminophen 650 Mg Rect Supp TN Q4H PRN Pain, Mild (1-3) Albuterol 2.5 mg 07/26/22 00:31 Albuterol 2.5 Mg/3 Ml Nebu IH Q3HRT PRN Shortness Of Breath Amiodarone HCl 200 mg 07/29/22 15:00 08/02/22 21:03 Amiodarone 200 Mg Tab PO 200 mg BID LIZZIE Administration Atorvastatin Calcium 40 mg 07/26/22 22:00 08/02/22 21:03 Atorvastatin 40 Mg Tab PO 40 mg QHS LIZZIE Administration Dextrose 50 ml 07/27/22 09:25 08/02/22 23:06 Dextrose 50% In Water (25gm) 50 Ml Syringe IV 15 ml Q30MIN PRN Administration Hypoglycemia Protocol Famotidine 10 mg 07/28/22 10:00 08/02/22 21:03 Famotidine 10 Mg Tab FEEDTUBE 10 mg BID LIZZIE Administration Hydrocortisone Sodium Succinate 50 mg 08/02/22 22:00 08/02/22 21:02 Hydrocortisone Sod Succ 100 Mg/2 Ml Vial IV 50 mg Q12HR LIZZIE Administration Cefepime HCl 2 gm in 100 mls @ 200 mls/hr 07/27/22 11:00 08/03/22 04:29 Cefepime/Ns 2 Gm/100 Ml IV 08/03/22 11:29 Infused Q24H [facility] Infusion Protocol Magnesium Sulfate 2 gm in 50 mls @ 25 mls/hr 08/03/22 09:30 Magnesium Sulfate 2gm/50ml IV 08/03/22 13:30 [id number] LIZZIE Insulin Glargine 30 units 08/03/22 22:00 Insulin Glargine 100 Units/Ml SUB-Q QHS [facility] Insulin Human Regular 0 units 07/27/22 12:00 08/03/22 05:29 Insulin Regular, Human 100 Units/1 Ml SUB-Q Not Given Q6H [facility] Protocol Multi-Ingred Cream/Lotion/Oil/Oint 1 applic 07/27/22 03:17 07/27/22 03:35 Mineral Oil/Petrolatum, White Ophth Oint 3.5 Gm OU 1 applic PRN PRN Administration Dry Eye(s) Nitroglycerin 0.4 mg 07/26/22 00:31 Nitroglycerin 0.4 Mg Tab Subl SL Q5M PRN Chest Pain Ondansetron HCl 4 mg 07/26/22 00:31 Ondansetron 4 Mg/2 Ml Inj IV Q8H PRN Nausea And Vomiting Potassium Chloride 40 meq 08/03/22 09:00 Potassium Chloride 20 Meq Packet FEEDTUBE 08/03/22 13:00 ONCE LIZZIE Sodium Bicarbonate 650 mg 07/29/22 20:00 08/03/22 08:36 Sodium Bicarbonate 650 Mg Tab PO 650 mg TID LIZZIE Administration Sodium Chloride 10 ml 07/26/22 10:00 08/02/22 21:03 Sodium Chloride 0.9% 10 Ml Flush Syringe IV 10 ml BID LIZZIE Administration Sodium Chloride 10 ml 07/26/22 00:31 Sodium Chloride 0.9% 10 Ml Flush Syringe IV PRN PRN LINE FLUSH Sodium Phosphate 250 mg 08/02/22 18:00 08/03/22 05:29 K-Phos Neutral 250 Mg Tab FEEDTUBE 08/03/22 12:01 250 mg Q6HR LIZZIE Administration
[2022-08-03] MEDS ORDERED: MAGNESIUM SULFATE 2 GM/50 ML BAG IV SCH (09:30)
[2022-08-03] MEDS: HYDROCORTISONE SOD SUCC 100 MG/2 ML VIAL IV SCH (10:18)
[2022-08-03] MEDS: CEFEPIME/NS 2 GM/100 ML 2 GM/100 ML BAG IV SCH (10:18)
[2022-08-03] MEDS: FAMOTIDINE 10 MG TAB FEEDTUBE SCH ×2 (10:18→21:43)
[2022-08-03] MEDS: AMIODARONE 200 MG TAB PO SCH ×2 (10:18→21:42)
--- NOTE | 2022-08-03 10:30 | Progress Note ---
Assessment and Plan 77 y/o male with cardiac arrest, intubated, not sedated with multisystem organ failure 08/03/22: Await placement. Continue daily PSV. PT consult. 08/01/22: Follow up surgery recs. Continue supportive care. 07/31/22: Supportive care. Surgery consult for trach and peg. Renal function continues to improve. 07/30/22: Continue supportive measures. Family wants aggressive measures despite MRI findings so needs consult to surgery for trach and peg. Will drop steroids down to 25q8 or 50q12 Sunday. Continue volume as renal function is improving. needs more free water if possible. 07/29/22: Drop steroids to 50q8 starting today. CBC not checked, need to evaluate Platelets. Need to correct electrolytes as well. Family is likely going to want trach and peg based on earlier conversations but awaiting more family. Given recent MRI results, prognosis is very poor. 07/28/22: Hold on Volume today. Drop steroids down to 50q8 starting tomorrow. Follow up MRI. EEG results still pending. Platelets still dropping but no ev idence of bleeding. Continue abx therapy. Continue feeds. Prognosis is still guarded. 07/27/22: more volume again today. Echo showed normal EF. Wean pressors for MAPs >65, follow up EEg results. Hopeful to get head CT today. Platelets dropped today, not on heparin. Could be sepsis related. If head CT negative, may need to evaluate abdomen around peg. Will start trickle feeds today and tr ansition of insulin drip. Prognosis is still guarded. 1. IVF resusciation with LR 2. Insulin drip and continue NPO state 3. Attempt to wean pressors for MAPs greater than 65 4. Monitor urine output 5. Broaden abx therapy given current clinical state 6. Follow up echo report 7. Agree with stress dose steroids 8. No sedation 9. EEG pending Overall prognosis is guarded to poor, especially given current clinical exam CCT 31 minutes. Subjective Date of service: 08/03/22 Principal diagnosis: Hypernatremia, ARF Interval history: Had trach and peg placed yesterday. did two hours of PSV this am. Objective Vital Signs - 12hr 08/02/22 08/02/22 08/02/22 23:00 23:15 23:16 Temperature Pulse Rate 71 69 Pulse Rate [ 70 From Monitor] Respiratory 16 19 24 Rate Blood Pressure 141/73 141/73 O2 Sat by Pulse 99 99 99 Oximetry 08/02/22 08/03/22 08/03/22 23:17 00:00 00:05 Temperature 98.8 F Pulse Rate 70 67 75 Pulse Rate [ From Monitor] Respiratory 21 2 L Rate Blood Pressure 128/71 128/71 O2 Sat by Pulse 99 99 Oximetry 08/03/22 08/03/22 08/03/22 01:00 02:00 03:00 Temperature Pulse Rate 76 78 79 Pulse Rate [ From Monitor] Respiratory 27 H 20 16 Rate Blood Pressure 134/72 138/76 124/66 O2 Sat by Pulse 99 100 100 Oximetry 08/03/22 08/03/22 08/03/22 04:00 04:18 05:00 Temperature 99.5 F Pulse Rate 78 74 71 Pulse Rate [ 78 From Monitor] Respiratory 14 6 L 20 Rate Blood Pressure 132/76 132/76 134/65 O2 Sat by Pulse 100 100 98 Oximetry 08/03/22 08/03/22 08/03/22 06:01 07:00 07:49 Temperature Pulse Rate 78 72 69 Pulse Rate [ From Monitor] Respiratory 30 H 16 Rate Blood Pressure 152/74 145/64 145/64 O2 Sat by Pulse 100 99 100 Oximetry 08/03/22 08/03/22 08/03/22 07:53 08:00 09:00 Temperature 99.0 F Pulse Rate 77 77 72 Pulse Rate [ 77 From Monitor] Respiratory 26 H 27 H 25 H Rate Blood Pressure 145/64 137/65 137/65 O2 Sat by Pulse 98 99 99 Oximetry 08/03/22 10:00 Temperature Pulse Rate 75 Pulse Rate [ From Monitor] Respiratory 28 H Rate Blood Pressure 140/69 O2 Sat by Pulse 91 Oximetry CBC and BMP: 08/03/22 04:40 08/03/22 04:40 ABG, PT/INR, D-dimer: ABG ABG pH 7.500 pH Units (7.350-7.450) H 08/03/22 03:35 ABG pCO2 26.7 mm Hg 08/03/22 03:35 ABG pO2 129.6 mm Hg (80.0-90.0) H 08/03/22 03:35 ABG O2 Saturation 98.7 % (95.0-99.0) 08/03/22 03:35 PT/INR, D-dimer PT 14.3 Sec. (12.2-14.9) 07/31/22 04:13 INR 0.97 (0.87-1.13) 07/31/22 04:13 Abnormal lab findings: Abnormal Labs 07/25/22 07/25/22 07/25/22 19:37 19:37 19:37 WBC 18.8 H RBC 6.31 H Hgb 18.8 H Hct 57.3 H MCV MCHC RDW Plt Count [place] # (Auto) 1.4 H Seg Neutrophils % 70.7 H Seg Neuts % (Manual) Lymphocytes % (Manual) Seg Neutrophils # 13.3 H Seg Neutrophils # Man Lymphocytes # (Manual) ABG pH ABG pO2 ABG HCO3 ABG O2 Saturation ABG Base Excess ABG Hemoglobin Oxyhemoglobin Sodium 149 H Potassium Chloride 110.3 H Carbon Dioxide 18 L BUN 73 H Creatinine 3.3 H Glucose 761 H* POC Glucose Hemoglobin A1c Lactic Acid Calcium 10.6 H Phosphorus Magnesium 3.10 H AST 63 H ALT 64 H Ammonia Troponin T 0.072 H Total Protein 9.0 H Albumin Triglycerides 362 H LDL Cholesterol Direct 44 L HDL Cholesterol 34 L Urine Creatinine Urine Total Protein 07/25/22 07/25/22 07/25/22 19:37 21:08 22:10 WBC RBC Hgb Hct MCV MCHC RDW Plt Count [place] # (Auto) Seg Neutrophils % Seg Neuts % (Manual) Lymphocytes % (Manual) Seg Neutrophils # Seg Neutrophils # Man Lymphocytes # (Manual) ABG pH ABG pO2 ABG HCO3 ABG O2 Saturation ABG Base Excess ABG Hemoglobin Oxyhemoglobin Sodium 155 H Potassium Chloride 113.1 H Carbon Dioxide 14 L BUN 74 H Creatinine 3.5 H Glucose 734 H* POC Glucose Hemoglobin A1c Lactic Acid 12.70 H* Calcium Phosphorus Magnesium AST ALT Ammonia 64.0 H Troponin T Total Protein Albumin Triglycerides LDL Cholesterol Direct HDL Cholesterol Urine Creatinine Urine Total Protein 07/25/22 07/25/22 07/26/22 22:20 23:29 00:13 WBC RBC Hgb Hct MCV MCHC RDW Plt Count [place] # (Auto) Seg Neutrophils % Seg Neuts % (Manual) Lymphocytes % (Manual) Seg Neutrophils # Seg Neutrophils # Man Lymphocytes # (Manual) ABG pH 7.342 L ABG pO2 318.2 H ABG HCO3 14.4 L ABG O2 Saturation 99.5 H ABG Base Excess -9.4 L ABG Hemoglobin Oxyhemoglobin Sodium 157 H Potassium 3.1 L D Chloride 114.0 H Carbon Dioxide 21 L D BUN 72 H Creatinine 3.7 H Glucose 615 H* POC Glucose > 600 H Hemoglobin A1c Lactic Acid Calcium Phosphorus Magnesium AST ALT Ammonia Troponin T Total Protein Albumin Triglycerides LDL Cholesterol Direct HDL Cholesterol Urine Creatinine Urine Total Protein 07/26/22 07/26/22 07/26/22 00:13 00:38 00:39 WBC 21.4 H RBC 5.88 H Hgb 17.2 H Hct 55.0 H MCV MCHC 31 L RDW 16.0 H Plt Count [place] # (Auto) Seg Neutrophils % Seg Neuts % (Manual) 77.0 H Lymphocytes % (Manual) 13.0 L Seg Neutrophils # Seg Neutrophils # Man 16.5 H Lymphocytes # (Manual) ABG pH ABG pO2 ABG HCO3 ABG O2 Saturation ABG Base Excess ABG Hemoglobin Oxyhemoglobin Sodium Potassium Chloride Carbon Dioxide BUN Creatinine Glucose POC Glucose 517 H Hemoglobin A1c Lactic Acid 9.10 H* Calcium Phosphorus Magnesium AST ALT Ammonia Troponin T Total Protein Albumin Triglycerides LDL Cholesterol Direct HDL Cholesterol Urine Creatinine Urine Total Protein 07/26/22 07/26/22 07/26/22 00:39 01:32 02:28 WBC RBC Hgb Hct MCV MCHC RDW Plt Count [place] # (Auto) Seg Neutrophils % Seg Neuts % (Manual) Lymphocytes % (Manual) Seg Neutrophils # Seg Neutrophils # Man Lymphocytes # (Manual) ABG pH ABG pO2 ABG HCO3 ABG O2 Saturation ABG Base Excess ABG Hemoglobin Oxyhemoglobin Sodium Potassium Chloride Carbon Dioxide BUN Creatinine Glucose POC Glucose 460 H 237 H Hemoglobin A1c Lactic Acid Calcium Phosphorus 1.20 L D Magnesium 4.10 H AST ALT Ammonia Troponin T Total Protein Albumin Triglycerides LDL Cholesterol Direct HDL Cholesterol Urine Creatinine Urine Total Protein 07/26/22 07/26/22 07/26/22 03:03 03:07 04:11 WBC RBC Hgb Hct MCV MCHC RDW Plt Count [place] # (Auto) Seg Neutrophils % Seg Neuts % (Manual) Lymphocytes % (Manual) Seg Neutrophils # Seg Neutrophils # Man Lymphocytes # (Manual) ABG pH ABG pO2 ABG HCO3 ABG O2 Saturation ABG Base Excess ABG Hemoglobin Oxyhemoglobin Sodium Potassium Chloride Carbon Dioxide BUN Creatinine Glucose POC Glucose 433 H 370 H 338 H Hemoglobin A1c Lactic Acid Calcium Phosphorus Magnesium AST ALT Ammonia Troponin T Total Protein Albumin Triglycerides LDL Cholesterol Direct HDL Cholesterol Urine Creatinine Urine Total Protein 07/26/22 07/26/22 07/26/22 04:35 04:35 04:40 WBC RBC Hgb Hct MCV MCHC RDW Plt Count [place] # (Auto) Seg Neutrophils % Seg Neuts % (Manual) Lymphocytes % (Manual) Seg Neutrophils # Seg Neutrophils # Man Lymphocytes # (Manual) ABG pH 7.301 L ABG pO2 178.2 H ABG HCO3 11.0 L ABG O2 Saturation 99.1 H ABG Base Excess -13.3 L ABG Hemoglobin Oxyhemoglobin Sodium 162 H* Potassium 3.0 L Chloride 124.8 H Carbon Dioxide 18 L BUN 69 H Creatinine 3.9 H Glucose 385 H POC Glucose Hemoglobin A1c Lactic Acid 8.20 H* Calcium 7.8 L Phosphorus Magnesium AST ALT Ammonia Troponin T Total Protein Albumin Triglycerides LDL Cholesterol Direct HDL Cholesterol Urine Creatinine Urine Total Protein 07/26/22 07/26/22 07/26/22 05:01 06:14 06:52 WBC RBC Hgb Hct MCV MCHC RDW Plt Count [place] # (Auto) Seg Neutrophils % Seg Neuts % (Manual) Lymphocytes % (Manual) Seg Neutrophils # Seg Neutrophils # Man Lymphocytes # (Manual) ABG pH ABG pO2 ABG HCO3 ABG O2 Saturation ABG Base Excess ABG Hemoglobin Oxyhemoglobin Sodium Potassium Chloride Carbon Dioxide BUN Creatinine Glucose POC Glucose 347 H 300 H 278 H Hemoglobin A1c Lactic Acid Calcium Phosphorus Magnesium AST ALT Ammonia Troponin T Total Protein Albumin Triglycerides LDL Cholesterol Direct HDL Cholesterol Urine Creatinine Urine Total Protein 07/26/22 07/26/22 07/26/22 07:59 08:58 10:04 WBC RBC Hgb Hct MCV MCHC RDW Plt Count [place] # (Auto) Seg Neutrophils % Seg Neuts % (Manual) Lymphocytes % (Manual) Seg Neutrophils # Seg Neutrophils # Man Lymphocytes # (Manual) ABG pH ABG pO2 ABG HCO3 ABG O2 Saturation ABG Base Excess ABG Hemoglobin Oxyhemoglobin Sodium Potassium Chloride Carbon Dioxide BUN Creatinine Glucose POC Glucose 269 H 277 H 244 H Hemoglobin A1c Lactic Acid Calcium Phosphorus Magnesium AST ALT Ammonia Troponin T Total Protein Albumin Triglycerides LDL Cholesterol Direct HDL Cholesterol Urine Creatinine Urine Total Protein 07/26/22 07/26/22 07/26/22 11:03 11:53 13:08 WBC RBC Hgb Hct MCV MCHC RDW Plt Count [place] # (Auto) Seg Neutrophils % Seg Neuts % (Manual) Lymphocytes % (Manual) Seg Neutrophils # Seg Neutrophils # Man Lymphocytes # (Manual) ABG pH ABG pO2 ABG HCO3 ABG O2 Saturation ABG Base Excess ABG Hemoglobin Oxyhemoglobin Sodium Potassium Chloride Carbon Dioxide BUN Creatinine Glucose POC Glucose 253 H 213 H 194 H Hemoglobin A1c Lactic Acid Calcium Phosphorus Magnesium AST ALT Ammonia Troponin T Total Protein Albumin Triglycerides LDL Cholesterol Direct HDL Cholesterol Urine Creatinine Urine Total Protein 07/26/22 07/26/22 07/26/22 14:24 14:56 14:57 WBC RBC Hgb Hct MCV MCHC RDW Plt Count [place] # (Auto) Seg Neutrophils % Seg Neuts % (Manual) Lymphocytes % (Manual) Seg Neutrophils # Seg Neutrophils # Man Lymphocytes # (Manual) ABG pH ABG pO2 ABG HCO3 ABG O2 Saturation ABG Base Excess ABG Hemoglobin Oxyhemoglobin Sodium Potassium Chloride Carbon Dioxide BUN Creatinine Glucose POC Glucose 185 H 236 H 207 H Hemoglobin A1c Lactic Acid Calcium Phosphorus Magnesium AST ALT Ammonia Troponin T Total Protein Albumin Triglycerides LDL Cholesterol Direct HDL Cholesterol Urine Creatinine Urine Total Protein 07/26/22 07/26/22 07/26/22 15:36 15:36 15:36 WBC RBC Hgb Hct MCV MCHC RDW Plt Count [place] # (Auto) Seg Neutrophils % Seg Neuts % (Manual) Lymphocytes % (Manual) Seg Neutrophils # Seg Neutrophils # Man Lymphocytes # (Manual) ABG pH ABG pO2 ABG HCO3 ABG O2 Saturation ABG Base Excess ABG Hemoglobin Oxyhemoglobin Sodium 160 H Potassium Chloride 126.2 H Carbon Dioxide 18 L BUN 59 H Creatinine 3.2 H Glucose 227 H POC Glucose Hemoglobin A1c Lactic Acid 9.70 H* Calcium 7.1 L Phosphorus Magnesium AST ALT Ammonia Troponin T 0.049 H D Total Protein Albumin Triglycerides LDL Cholesterol Direct HDL Cholesterol Urine Creatinine Urine Total Protein 07/26/22 07/26/22 07/26/22 15:57 16:32 17:04 WBC RBC Hgb Hct MCV MCHC RDW Plt Count [place] # (Auto) Seg Neutrophils % Seg Neuts % (Manual) Lymphocytes % (Manual) Seg Neutrophils # Seg Neutrophils # Man Lymphocytes # (Manual) ABG pH ABG pO2 ABG HCO3 ABG O2 Saturation ABG Base Excess ABG Hemoglobin Oxyhemoglobin Sodium Potassium Chloride Carbon Dioxide BUN Creatinine Glucose POC Glucose 207 H 189 H 219 H Hemoglobin A1c Lactic Acid Calcium Phosphorus Magnesium AST ALT Ammonia Troponin T Total Protein Albumin Triglycerides LDL Cholesterol Direct HDL Cholesterol Urine Creatinine Urine Total Protein 07/26/22 07/26/22 07/26/22 18:00 18:10 18:52 WBC RBC Hgb Hct MCV MCHC RDW Plt Count [place] # (Auto) Seg Neutrophils % Seg Neuts % (Manual) Lymphocytes % (Manual) Seg Neutrophils # Seg Neutrophils # Man Lymphocytes # (Manual) ABG pH ABG pO2 ABG HCO3 ABG O2 Saturation ABG Base Excess ABG Hemoglobin Oxyhemoglobin Sodium Potassium Chloride Carbon Dioxide BUN Creatinine Glucose POC Glucose 197 H 194 H Hemoglobin A1c Lactic Acid Calcium Phosphorus Magnesium AST ALT Ammonia Troponin T Total Protein Albumin Triglycerides LDL Cholesterol Direct HDL Cholesterol Urine Creatinine 118.4 H Urine Total Protein 146 H 07/26/22 07/26/22 07/26/22 20:47 21:30 21:51 WBC RBC Hgb Hct MCV MCHC RDW Plt Count [place] # (Auto) Seg Neutrophils % Seg Neuts % (Manual) Lymphocytes % (Manual) Seg Neutrophils # Seg Neutrophils # Man Lymphocytes # (Manual) ABG pH ABG pO2 ABG HCO3 ABG O2 Saturation ABG Base Excess ABG Hemoglobin Oxyhemoglobin Sodium 155 H Potassium Chloride 123.5 H Carbon Dioxide 16 L BUN 53 H Creatinine 2.9 H Glucose 185 H POC Glucose 134 H 124 H Hemoglobin A1c Lactic Acid Calcium 7.0 L Phosphorus Magnesium AST ALT Ammonia Troponin T Total Protein Albumin Triglycerides LDL Cholesterol Direct HDL Cholesterol Urine Creatinine Urine Total Protein 07/26/22 07/26/22 07/27/22 22:47 23:52 00:45 WBC RBC Hgb Hct MCV MCHC RDW Plt Count [place] # (Auto) Seg Neutrophils % Seg Neuts % (Manual) Lymphocytes % (Manual) Seg Neutrophils # Seg Neutrophils # Man Lymphocytes # (Manual) ABG pH ABG pO2 ABG HCO3 ABG O2 Saturation ABG Base Excess ABG Hemoglobin Oxyhemoglobin Sodium 155 H Potassium Chloride 124.2 H Carbon Dioxide 19 L BUN 53 H Creatinine 2.5 H Glucose 168 H POC Glucose 138 H 150 H Hemoglobin A1c Lactic Acid Calcium 6.7 L Phosphorus Magnesium AST ALT Ammonia Troponin T Total Protein Albumin Triglycerides LDL Cholesterol Direct HDL Cholesterol Urine Creatinine Urine Total Protein 07/27/22 07/27/22 07/27/22 00:58 02:45 03:50 WBC 15.4 H RBC Hgb Hct MCV MCHC RDW 15.3 H Plt Count 60 L [place] # (Auto) Seg Neutrophils % Seg Neuts % (Manual) 78.0 H Lymphocytes % (Manual) 3.0 L Seg Neutrophils # Seg Neutrophils # Man 12.0 H Lymphocytes # (Manual) 0.5 L ABG pH ABG pO2 ABG HCO3 ABG O2 Saturation ABG Base Excess ABG Hemoglobin Oxyhemoglobin Sodium Potassium Chloride Carbon Dioxide BUN Creatinine Glucose POC Glucose 153 H 150 H Hemoglobin A1c Lactic Acid Calcium Phosphorus Magnesium AST ALT Ammonia Troponin T Total Protein Albumin Triglycerides LDL Cholesterol Direct HDL Cholesterol Urine Creatinine Urine Total Protein 07/27/22 07/27/22 07/27/22 03:50 03:55 04:57 WBC RBC Hgb Hct MCV MCHC RDW Plt Count [place] # (Auto) Seg Neutrophils % Seg Neuts % (Manual) Lymphocytes % (Manual) Seg Neutrophils # Seg Neutrophils # Man Lymphocytes # (Manual) ABG pH ABG pO2 110.1 H ABG HCO3 13.3 L ABG O2 Saturation ABG Base Excess -9.0 L ABG Hemoglobin 13.1 L Oxyhemoglobin Sodium 154 H Potassium Chloride 123.0 H Carbon Dioxide 19 L BUN 55 H Creatinine 2.8 H Glucose 153 H POC Glucose 112 H Hemoglobin A1c Lactic Acid Calcium 6.8 L Phosphorus 1.30 L Magnesium AST 64 H ALT Ammonia Troponin T Total Protein 4.1 L D Albumin 2.1 L Triglycerides LDL Cholesterol Direct HDL Cholesterol Urine Creatinine Urine Total Protein 07/27/22 07/27/22 07/27/22 08:22 09:30 10:49 WBC RBC Hgb Hct MCV MCHC RDW Plt Count [place] # (Auto) Seg Neutrophils % Seg Neuts % (Manual) Lymphocytes % (Manual) Seg Neutrophils # Seg Neutrophils # Man Lymphocytes # (Manual) ABG pH ABG pO2 ABG HCO3 ABG O2 Saturation ABG Base Excess ABG Hemoglobin Oxyhemoglobin Sodium Potassium Chloride Carbon Dioxide BUN Creatinine Glucose POC Glucose 146 H 153 H 163 H Hemoglobin A1c Lactic Acid Calcium Phosphorus Magnesium AST ALT Ammonia Troponin T Total Protein Albumin Triglycerides LDL Cholesterol Direct HDL Cholesterol Urine Creatinine Urine Total Protein 07/27/22 07/27/22 07/27/22 12:13 12:44 17:17 WBC RBC Hgb Hct MCV MCHC RDW Plt Count [place] # (Auto) Seg Neutrophils % Seg Neuts % (Manual) Lymphocytes % (Manual) Seg Neutrophils # Seg Neutrophils # Man Lymphocytes # (Manual) ABG pH ABG pO2 ABG HCO3 ABG O2 Saturation ABG Base Excess ABG Hemoglobin Oxyhemoglobin Sodium Potassium Chloride Carbon Dioxide BUN Creatinine Glucose POC Glucose 190 H 287 H Hemoglobin A1c 12.3 H Lactic Acid Calcium Phosphorus Magnesium AST ALT Ammonia Troponin T Total Protein Albumin Triglycerides LDL Cholesterol Direct HDL Cholesterol Urine Creatinine Urine Total Protein 07/28/22 07/28/22 07/28/22 00:22 03:58 04:05 WBC RBC Hgb Hct MCV MCHC RDW Plt Count [place] # (Auto) Seg Neutrophils % Seg Neuts % (Manual) Lymphocytes % (Manual) Seg Neutrophils # Seg Neutrophils # Man Lymphocytes # (Manual) ABG pH ABG pO2 171.2 H ABG HCO3 12.3 L ABG O2 Saturation 99.2 H ABG Base Excess -9.7 L ABG Hemoglobin 10.9 L Oxyhemoglobin Sodium 148 H Potassium Chloride 117.0 H Carbon Dioxide 16 L BUN 74 H Creatinine 3.2 H Glucose 471 H POC Glucose 379 H Hemoglobin A1c Lactic Acid Calcium 6.2 L Phosphorus Magnesium AST ALT Ammonia Troponin T Total Protein Albumin Triglycerides LDL Cholesterol Direct HDL Cholesterol Urine Creatinine Urine Total Protein 07/28/22 07/28/22 07/28/22 04:05 05:36 12:50 WBC 13.9 H RBC Hgb 11.2 L Hct MCV MCHC 31 L RDW 15.9 H Plt Count 48 L [place] # (Auto) Seg Neutrophils % Seg Neuts % (Manual) Lymphocytes % (Manual) Seg Neutrophils # Seg Neutrophils # Man Lymphocytes # (Manual) ABG pH ABG pO2 ABG HCO3 ABG O2 Saturation ABG Base Excess ABG Hemoglobin Oxyhemoglobin Sodium Potassium Chloride Carbon Dioxide BUN Creatinine Glucose POC Glucose 390 H 399 H Hemoglobin A1c Lactic Acid Calcium Phosphorus Magnesium AST ALT Ammonia Troponin T Total Protein Albumin Triglycerides LDL Cholesterol Direct HDL Cholesterol Urine Creatinine Urine Total Protein 07/28/22 07/28/22 07/28/22 17:27 18:16 23:31 WBC RBC Hgb Hct MCV MCHC RDW Plt Count [place] # (Auto) Seg Neutrophils % Seg Neuts % (Manual) Lymphocytes % (Manual) Seg Neutrophils # Seg Neutrophils # Man Lymphocytes # (Manual) ABG pH ABG pO2 ABG HCO3 ABG O2 Saturation ABG Base Excess ABG Hemoglobin Oxyhemoglobin Sodium Potassium Chloride Carbon Dioxide BUN Creatinine Glucose POC Glucose 434 H 331 H Hemoglobin A1c Lactic Acid Calcium Phosphorus 2.00 L D Magnesium AST ALT Ammonia Troponin T Total Protein Albumin Triglycerides LDL Cholesterol Direct HDL Cholesterol Urine Creatinine Urine Total Protein 07/29/22 07/29/22 07/29/22 04:47 05:30 06:10 WBC RBC Hgb Hct MCV MCHC RDW Plt Count [place] # (Auto) Seg Neutrophils % Seg Neuts % (Manual) Lymphocytes % (Manual) Seg Neutrophils # Seg Neutrophils # Man Lymphocytes # (Manual) ABG pH 7.498 H ABG pO2 166.4 H ABG HCO3 16.2 L ABG O2 Saturation 99.1 H ABG Base Excess -5.4 L ABG Hemoglobin 10.7 L Oxyhemoglobin Sodium 151 H Potassium 3.5 L D Chloride 120.4 H Carbon Dioxide 17 L BUN 80 H Creatinine 2.8 H Glucose 303 H POC Glucose 261 H Hemoglobin A1c Lactic Acid Calcium 6.9 L Phosphorus Magnesium AST ALT Ammonia Troponin T Total Protein Albumin Triglycerides LDL Cholesterol Direct HDL Cholesterol Urine Creatinine Urine Total Protein 07/29/22 07/29/22 07/29/22 09:18 12:31 13:40 WBC 16.0 H RBC Hgb Hct MCV 96 H MCHC 30 L RDW 17.6 H Plt Count 84 L [place] # (Auto) Seg Neutrophils % Seg Neuts % (Manual) Lymphocytes % (Manual) Seg Neutrophils # Seg Neutrophils # Man Lymphocytes # (Manual) ABG pH ABG pO2 ABG HCO3 ABG O2 Saturation ABG Base Excess ABG Hemoglobin Oxyhemoglobin Sodium Potassium Chloride Carbon Dioxide BUN Creatinine Glucose POC Glucose 287 H 291 H Hemoglobin A1c Lactic Acid Calcium Phosphorus Magnesium AST ALT Ammonia Troponin T Total Protein Albumin Triglycerides LDL Cholesterol Direct HDL Cholesterol Urine Creatinine Urine Total Protein 07/29/22 07/29/22 07/30/22 17:19 23:57 04:25 WBC RBC Hgb Hct MCV MCHC RDW Plt Count [place] # (Auto) Seg Neutrophils % Seg Neuts % (Manual) Lymphocytes % (Manual) Seg Neutrophils # Seg Neutrophils # Man Lymphocytes # (Manual) ABG pH 7.461 H ABG pO2 123.0 H ABG HCO3 18.6 L ABG O2 Saturation ABG Base Excess -4.1 L ABG Hemoglobin 10.8 L Oxyhemoglobin Sodium Potassium Chloride Carbon Dioxide BUN Creatinine Glucose POC Glucose 272 H 205 H Hemoglobin A1c Lactic Acid Calcium Phosphorus Magnesium AST ALT Ammonia Troponin T Total Protein Albumin Triglycerides LDL Cholesterol Direct HDL Cholesterol Urine Creatinine Urine Total Protein 07/30/22 07/30/22 07/30/22 04:42 04:42 05:17 WBC RBC Hgb 11.1 L Hct 33.1 L D MCV MCHC RDW 16.0 H Plt Count 34 L [place] # (Auto) Seg Neutrophils % Seg Neuts % (Manual) Lymphocytes % (Manual) Seg Neutrophils # Seg Neutrophils # Man Lymphocytes # (Manual) ABG pH ABG pO2 ABG HCO3 ABG O2 Saturation ABG Base Excess ABG Hemoglobin Oxyhemoglobin Sodium 148 H Potassium 3.2 L Chloride 116.7 H Carbon Dioxide 18 L BUN 69 H Creatinine 2.0 H Glucose 197 H POC Glucose 185 H Hemoglobin A1c Lactic Acid Calcium 6.8 L Phosphorus 1.70 L Magnesium AST ALT Ammonia Troponin T Total Protein Albumin Triglycerides LDL Cholesterol Direct HDL Cholesterol Urine Creatinine Urine Total Protein 07/30/22 07/30/22 07/30/22 11:41 16:14 23:07 WBC RBC Hgb Hct MCV MCHC RDW Plt Count [place] # (Auto) Seg Neutrophils % Seg Neuts % (Manual) Lymphocytes % (Manual) Seg Neutrophils # Seg Neutrophils # Man Lymphocytes # (Manual) ABG pH ABG pO2 ABG HCO3 ABG O2 Saturation ABG Base Excess ABG Hemoglobin Oxyhemoglobin Sodium Potassium Chloride Carbon Dioxide BUN Creatinine Glucose POC Glucose 199 H 173 H 159 H Hemoglobin A1c Lactic Acid Calcium Phosphorus Magnesium AST ALT Ammonia Troponin T Total Protein Albumin Triglycerides LDL Cholesterol Direct HDL Cholesterol Urine Creatinine Urine Total Protein 07/31/22 07/31/22 07/31/22 03:25 04:00 04:13 WBC RBC Hgb 10.5 L Hct 32.8 L MCV MCHC RDW 15.3 H Plt Count 55 L [place] # (Auto) Seg Neutrophils % Seg Neuts % (Manual) Lymphocytes % (Manual) Seg Neutrophils # Seg Neutrophils # Man Lymphocytes # (Manual) ABG pH 7.513 H ABG pO2 64.1 L ABG HCO3 ABG O2 Saturation ABG Base Excess ABG Hemoglobin 10.5 L Oxyhemoglobin 93.8 L Sodium 146 H Potassium 3.4 L Chloride 112.5 H Carbon Dioxide 21 L BUN 53 H Creatinine 1.6 H Glucose 151 H POC Glucose Hemoglobin A1c Lactic Acid Calcium 6.4 L Phosphorus Magnesium AST ALT Ammonia Troponin T Total Protein Albumin Triglycerides LDL Cholesterol Direct HDL Cholesterol Urine Creatinine Urine Total Protein 07/31/22 07/31/22 07/31/22 05:39 11:08 16:11 WBC RBC Hgb Hct MCV MCHC RDW Plt Count [place] # (Auto) Seg Neutrophils % Seg Neuts % (Manual) Lymphocytes % (Manual) Seg Neutrophils # Seg Neutrophils # Man Lymphocytes # (Manual) ABG pH ABG pO2 ABG HCO3 ABG O2 Saturation ABG Base Excess ABG Hemoglobin Oxyhemoglobin Sodium Potassium Chloride Carbon Dioxide BUN Creatinine Glucose POC Glucose 155 H 132 H 150 H Hemoglobin A1c Lactic Acid Calcium Phosphorus Magnesium AST ALT Ammonia Troponin T Total Protein Albumin Triglycerides LDL Cholesterol Direct HDL Cholesterol Urine Creatinine Urine Total Protein 07/31/22 08/01/22 08/01/22 23:48 04:17 04:17 WBC RBC 3.62 L Hgb 10.6 L Hct 31.8 L MCV MCHC RDW 15.7 H Plt Count 90 L [place] # (Auto) Seg Neutrophils % Seg Neuts % (Manual) Lymphocytes % (Manual) Seg Neutrophils # Seg Neutrophils # Man Lymphocytes # (Manual) ABG pH ABG pO2 ABG HCO3 ABG O2 Saturation ABG Base Excess ABG Hemoglobin Oxyhemoglobin Sodium 147 H Potassium 3.3 L Chloride 113.7 H Carbon Dioxide BUN 46 H Creatinine Glucose 141 H POC Glucose 133 H Hemoglobin A1c Lactic Acid Calcium 6.0 L Phosphorus 2.00 L Magnesium 1.50 L AST ALT Ammonia Troponin T Total Protein Albumin Triglycerides LDL Cholesterol Direct HDL Cholesterol Urine Creatinine Urine Total Protein 08/01/22 08/01/22 08/01/22 05:46 11:17 17:44 WBC RBC Hgb Hct MCV MCHC RDW Plt Count [place] # (Auto) Seg Neutrophils % Seg Neuts % (Manual) Lymphocytes % (Manual) Seg Neutrophils # Seg Neutrophils # Man Lymphocytes # (Manual) ABG pH ABG pO2 ABG HCO3 ABG O2 Saturation ABG Base Excess ABG Hemoglobin Oxyhemoglobin Sodium Potassium Chloride Carbon Dioxide BUN Creatinine Glucose POC Glucose 116 H 190 H 179 H Hemoglobin A1c Lactic Acid Calcium Phosphorus Magnesium AST ALT Ammonia Troponin T Total Protein Albumin Triglycerides LDL Cholesterol Direct HDL Cholesterol Urine Creatinine Urine Total Protein 08/01/22 08/02/22 08/02/22 23:34 04:48 04:48 WBC RBC 3.61 L Hgb 10.2 L Hct 31.9 L MCV MCHC RDW 15.8 H Plt Count 130 L Motley # (Auto) Seg Neutrophils % Seg Neuts % (Manual) Lymphocytes % (Manual) Seg Neutrophils # Seg Neutrophils # Man Lymphocytes # (Manual) ABG pH ABG pO2 ABG HCO3 ABG O2 Saturation ABG Base Excess ABG Hemoglobin Oxyhemoglobin Sodium 148 H Potassium 3.4 L Chloride 113.1 H Carbon Dioxide 16 L BUN 45 H Creatinine Glucose 213 H POC Glucose 193 H Hemoglobin A1c Lactic Acid Calcium 5.9 L* Phosphorus 2.30 L Magnesium AST ALT Ammonia Troponin T Total Protein Albumin Triglycerides LDL Cholesterol Direct HDL Cholesterol Urine Creatinine Urine Total Protein 08/02/22 08/02/22 08/02/22 05:38 23:04 23:30 WBC RBC Hgb Hct MCV MCHC RDW Plt Count Mot[place] # (Auto) Seg Neutrophils % Seg Neuts % (Manual) Lymphocytes % (Manual) Seg Neutrophils # Seg Neutrophils # Man Lymphocytes # (Manual) ABG pH ABG pO2 ABG HCO3 ABG O2 Saturation ABG Base Excess ABG Hemoglobin Oxyhemoglobin Sodium Potassium Chloride Carbon Dioxide BUN Creatinine Glucose POC Glucose 193 H 65 L 111 H Hemoglobin A1c Lactic Acid Calcium Phosphorus Magnesium AST ALT Ammonia Troponin T Total Protein Albumin Triglycerides LDL Cholesterol Direct HDL Cholesterol Urine Creatinine Urine Total Protein 08/03/22 08/03/22 08/03/22 03:35 04:40 04:40 WBC 12.7 H RBC 3.36 L Hgb 9.5 L Hct 29.8 L MCV MCHC RDW 15.7 H Plt Count [place] # (Auto) Seg Neutrophils % Seg Neuts % (Manual) Lymphocytes % (Manual) Seg Neutrophils # Seg Neutrophils # Man Lymphocytes # (Manual) ABG pH 7.500 H ABG pO2 129.6 H ABG HCO3 ABG O2 Saturation ABG Base Excess ABG Hemoglobin 9.7 L Oxyhemoglobin Sodium Potassium 3.3 L Chloride 107.9 H Carbon Dioxide 21 L BUN 37 H Creatinine Glucose 111 H POC Glucose Hemoglobin A1c Lactic Acid Calcium 5.5 L* Phosphorus Magnesium 1.60 L AST ALT Ammonia Troponin T Total Protein Albumin Triglycerides LDL Cholesterol Direct HDL Cholesterol Urine Creatinine Urine Total Protein
--- NOTE | 2022-08-03 11:12 | Progress Note ---
Assessment and Plan Patient is 77-year-old male with a past medical history of hypertension, paroxysmal A. 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 Anoxic brain injury Status post cardiac arrest Acute respiratory failure-pulmonology following AMS-neurology following DKA Acute renal failure-nephrology following Sepsis PAF Hypertension Diabetes History of CVA 2019 [id number] following Echo 07/26/2022-technically difficult study due to patient on ventilator, poor endocardial definition. Very grossly in subcostal views probably normal left ventricular systolic function EF 50 to 60% no pericardial effusion. Consider repeating echo when patient is more stable and off ventilator Plan: Suspect troponin elevation in setting of sepsis, acute renal failure, and DKA S/p cardiac arrest with unknown rhythm in setting of sepsis, acute renal failure, DKA Continue amiodarone 200 mg p.o. twice daily Due to anoxic brain injury thrombocytopenia hold anticoagulation at this time. Will defer to neuro recs regarding anticoagulation Patient s/p trach and PEG Patient awaiting placement. Cardiac status appears otherwise stable will see as needed Patient seen in conjunction with Dr. Salmeron who agrees this plan of care t - Patient Problems (1) History of CVA (cerebrovascular accident) Current Visit: Yes Status: Acute (2) Acute respiratory failure Current Visit: Yes Status: Acute (3) Cardiac arrest Current Visit: Yes Status: Acute (4) DKA (diabetic ketoacidosis) Current Visit: Yes Status: Acute (5) Leukocytosis Current Visit: Yes Status: Acute (6) Atrial fibrillation with RVR Current Visit: No Status: Acute (7) HLD (hyperlipidemia) Current Visit: No Status: Acute (8) HTN (hypertension) Current Visit: No Status: Acute Subjective Date of service: 08/03/22 Principal diagnosis: Hypernatremia, ARF Interval history: Patient s/p Trach Sinus 80s-90s .No acute events overnight Objective Vital Signs Temp Pulse Pulse Resp BP Pulse Ox 08/03/22 10:34 80 27 H 140/69 95 08/03/22 10:00 75 28 H 140/69 91 08/03/22 09:00 72 25 H 137/65 99 08/03/22 08:00 99.0 F 77 77 27 H 137/65 99 08/03/22 07:53 77 26 H 145/64 98 08/03/22 07:49 69 145/64 100 08/03/22 07:00 72 16 145/64 99 08/03/22 06:01 78 30 H 152/74 100 08/03/22 05:00 71 20 134/65 98 08/03/22 04:18 74 6 L 132/76 100 08/03/22 04:00 99.5 F 78 78 14 132/76 100 08/03/22 03:00 79 16 124/66 100 08/03/22 02:00 78 20 138/76 100 08/03/22 01:00 76 27 H 134/72 99 08/03/22 00:05 75 2 L 128/71 99 08/03/22 00:00 98.8 F 67 21 128/71 99 08/02/22 23:17 70 08/02/22 23:16 70 24 99 08/02/22 23:15 69 19 141/73 99 08/02/22 23:00 71 16 141/73 99 08/02/22 22:00 70 16 151/80 100 08/02/22 21:00 71 25 H 152/77 99 08/02/22 20:00 87 28 H 174/79 99 08/02/22 19:55 98 F 08/02/22 19:46 78 08/02/22 19:45 75 12 174/79 98 08/02/22 19:41 90 32 H 99 08/02/22 19:00 79 24 167/75 97 08/02/22 18:00 80 18 153/76 99 08/02/22 17:00 70 19 142/53 98 08/02/22 16:00 98.1 F 75 73 21 154/75 94 08/02/22 15:00 76 17 150/71 100 08/02/22 14:00 82 26 H 165/84 100 08/02/22 13:01 87 25 H 163/81 99 08/02/22 12:08 88 19 128/81 100 08/02/22 12:07 88 22 128/81 100 08/02/22 12:00 97.8 F 87 87 25 H 98 - Physical Examination General: Other (Intubated) HEENT: Positive: Mucus Membranes Dry Neck: Positive: trachea midline Cardiac: Positive: Reg Rate and Rhythm Lungs: Positive: Ventilated Respirations Neuro: Positive: Other (Unable to assess) Abdomen: Positive: Soft Skin: Positive: Cool. Negative: Rash, Suspicious Lesions, Ulceration Extremities: Present: upper extr. pulses, Cool, Other (Blisters noted on lower extremities) - Labs and Meds CBC 08/03/22 Range/Units 04:40 WBC 12.7 H (4.5-11.0) K/mm3 RBC 3.36 L (3.65-5.03) M/mm3 Hgb 9.5 L (11.8-15.2) gm/dl Hct 29.8 L (35.5-45.6) % Plt Count 142 (140-440) K/mm3 Comprehensive Metabolic Panel 08/03/22 Range/Units 04:40 Sodium 143 (137-145) mmol/L Potassium 3.3 L (3.6-5.0) mmol/L Chloride 107.9 H (98-107) mmol/L Carbon Dioxide 21 L (22-30) mmol/L BUN 37 H (9-20) mg/dL Creatinine 1.2 (0.8-1.3) mg/dL Glucose 111 H (75-100) mg/dL Calcium 5.5 L* (8.4-10.2) mg/dL - Imaging and Cardiology EKG: report reviewed, image reviewed Echo: report reviewed - Telemetry EKG Rhythm: Sinus Rhythm - EKG Sinus rhythms and dysrhythmias: sinus rhythm
--- NOTE | 2022-08-03 14:06 | Progress Note ---
<DENNY ARNOLD - Last Filed: 08/03/22 19:26> Assessment and Plan Assessment and plan: This is a 77-year-old male from a SNF facility with known past medical history of DM, paroxysmal atrial fibrillation, HTN, and CVA (2020) initially presented with AMS and Hyperglycemia. While in the ED, patient became obtunded with hyp oxia and was intubated for airway protection. Post intubation patient PEA arrested and ROSC was achieved after approximately 13 minutes. Hospital Course to Date: 07/26: Patient is on any sedation, very sluggish pupillary response, no cough/gag noted, no seizure activity. Neurology recs repeat CT head without contrast or MRI brain without contrast when clinically stable. Patient also had a EEG completed today. Patient is currently maxed on Levophed and vasopressin. Given several LR boluses today. Antibiotics broadened and stress dose steroids added. 07/27: Weaning pressors, phosphorus repleted, SSI and long-acting insulin initiated, tube feeding initiated. Patient now has a hypoactive cough/gag. CT head pending. LR bolus. Thrombocytopenia noted. Cardiology would like to start heparin drip due to atrial fibrillation however would like neurology input prior to. 07/28: Patient remains off of vasopressors, patient had MRI today. Worsening renal function noted. Cardiology will hold off amiodarone due to thrombocytopenia. No acute events reported overnight. 07/29: I had an extensive conversation with son and at bedside to with the help of an court interpreter through the [employer] line. Explained thoroughly of presentation to the ED from documentation, cardiac arrest, CT head and MRI brain findings. They are still electing to continue aggressive care and would like hospital assistance with getting a visa for youngest son to come to the [facility] from [place]. linen manager is aware of request. Steroid taper started. CBC pending. Will be repleted. Hypernatremia improving. 07/30: LR bolus, renal function is improved, thrombocytopenia worse. Likely consult surgery for trach/peg as per family requests to continue care. No acute events overnight. 07/31: Patient's mentation is unchanged. Remains on low vent setting. D/w [facility] general surgery consulted for possible trach and PEG. Renal function is improving, still hypenatremic, continue FWF per Nephrology. K repleted, continue to - Monitor and replace electrolytes as needed. Patient remains in SR on the monitor, VSS. Amiodarone gtt transitioned to PO amio per Cardio. 08/01: Condition unchanged, remains stable on low vent setting. Renal function continue to improve with persistent hypernatremia, continue FWF per Nephro. General Surgery recommendations noted. D/w General surgery, plan for possible trach and PEG exchange tomorrow or . 08/02: Remains stable on low vent settings. NPO since after midnight for possible trach/PEG today by General Surgery. Patient remains hypernatremic and due to NPO status, FWF was held. Will initiated low dose D5W gtt for now. And also to prevent hypoglycemia while NPO, patient is on Lantus BID. Currently on steroids taper, will hold tonight does and reduce Lantus to Qhs starting tomorrow. Close monitoring of BG and electrolytes. Nephrology is also following. 08/03: S/p trach and PEG exchange. Remains stable on the vent with no complications. Tolerating TF and also Tolerated 2hrs of PSV trial this am. Continue to taper IV steroids, qhs Lantus adjusted to avoid hypoglycemia. Hypernatremia improved, continue FWF per Nephro. Possible LTAC placement, case management to arrange. Neuro: Acute metabolic encephalopathy, hepatic encephalopathy, r/o ALEC and subclinical status epilepticus, h/o CVA (2019) -Sluggish pupils, no cough/gag, periodic spontaneous respiration -Neurology consulted, appreciate recommendations -Initial CT head with no acute abnormality -Repeat CT head without contrast of preferably MRI brain without contrast when clinically stable -EEG completed -Per neurology aim for euglycemia and permissive hypertension for now -Ammonia 64 -MRI brain shows diffuse diffusion abnormality involving cerebral and cerebellum compatible with diffuse hypoxia given the patient's history, interval evolving of left [place] infarct from 02/16/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 Cardiac: S/p cardiac arrest, A. fib RVR, h/o hypertension, paroxysmal atrial fibrillation, hyperlipidemia -Patient suffered cardiac arrest on 07/25 in the ED and then was noted to be in A. fib with RVR -Amiodarone PO -Cardiology consulted, appreciate recommendations -Blood pressure monitoring per protocol -S/p vasopressor support with Levophed and vasopressin -MAP goal greater than 65 -Echocardiogram shows EF 50 to 60%, no pericardial effusion -Lipitor Respiratory: Acute hypoxic respiratory failure -CCM consulted, appreciate recommendations -Intubated on 07/25 with a 8.00 ETT in the ED -08/02 s/p Trach and PEG exchange -A.m. vent settings: PRVC-28%,6,16,400 -See RT notes for titration -A.m. ABG and CXR noted -VAP bundle -SPO2 monitoring GI: Protein calorie malnutrition -Enteral Nutrition initiated -08/02 S/p PEG-TUbe placement -NTR consult for tube feeding -PPI : Hypernatremia, metabolic acidosis, acute kidney injury likely secondary to vasomotor nephropathy, hypokalemia, hypophosphatemia -S/p 4 L LR bolus -Nephrology consulted, appreciate recommendations -Serum creatinine 03/08/2020 was 1.3, Scr. back to baseline at 1.3 today -Monitor intake and output -Renally dose medications -Avoid nephrotoxic medications -FWF q 4 hr per nephro -Renal ultrasound noted -KPhos IV -Trend BMP ID: Sepsis, Klebsiella pneumonia -Hypotension, acute kidney injury, acute respiratory failure, lactic acidosis -Antibiotic therapy with cefepime -Solu-Cortef tapering -f/u blood culture -Monitor WBC and temperature curve Endo: h/o DM s/p DKA -Presented with anion gap of 21, glucose of 761, VBG 7.362 -s/p Insulin drip -Accu-Cheks q6hr -SSI -Long-acting insulin when able -Hemaglobin A1C 12.3 Heme: Thrombocytopenia -Dropped in plt -Hematology consulted -HIT panel negative -Trend CBC -Transfuse hemoglobin less than 7 -SCDs to BLE while in bed The high probability of a clinically significant, sudden or life threatening deterioration of the [multi] system(s) required my full and direct attention, intervention and personal management. The aggregate critical care time was [60] minutes. This time is in addition to time spent performing reported procedures but includes the following: [x] Data Review and interpretation [x] Patient assessment and monitoring of vital signs [x] Documentation [x] Medication orders and management Disposition Plan: ICU Total Time Spent with Patient (Minutes): 60 History Interval history: Patient seen and examined at the bedside. s/p trach and PEG exchange. Stable on the vent. Tolerated 2hrs of PSV trial this am. Patient is tolerating TF via PEG. ABRAM overnight Hospitalist Physical - Physical exam Narrative exam: General appearance: Present: other (Trached, on the vent, and unresponsive) - EENT Eyes: Present: irregular pupil, mydriasis - Respiratory Respiratory effort: normal Respiratory: bilateral: rhonchi - Cardiovascular Rhythm: regular Heart Sounds: Present: S1 & S2 - Extremities Extremities: no ischemia, pulses intact, pulses symmetrical Extremity abnormal: edema - Peripheral Assessment Generalized Edema Type: Non-pitting Edema Degree: 2+ Capillary Refill: < 3 seconds Skin Temperature: Warm Peripheral Pulses: within normal limits - Abdominal General gastrointestinal: soft, non-distended, normal bowel sounds - Integumentary Integumentary: Present: warm, dry - Psychiatric Psychiatric: other (on the vent and unresponsive) - Neurologic Neurologic: other (On the vent and unresponsive) - Allied Health Allied health notes reviewed: nursing, case management - Constitutional Vitals: Temp Pulse Resp BP Pulse Ox 98.8 F 75 18 128/78 99 08/03/22 12:00 08/03/22 12:00 08/03/22 12:00 08/03/22 12:00 08/03/22 12:00 HEART Score - HEART Score Troponin: Troponin T 0.049 ng/mL (0.00-0.029) H D 07/26/22 15:36 Results - Labs CBC & Chem 7: 08/03/22 04:40 08/03/22 04:40 Labs: Laboratory Last Values WBC 12.7 K/mm3 (4.5-11.0) H 08/03/22 04:40 RBC 3.36 M/mm3 (3.65-5.03) L 08/03/22 04:40 Hgb 9.5 gm/dl (11.8-15.2) L 08/03/22 04:40 Hct 29.8 % (35.5-45.6) L 08/03/22 04:40 MCV 89 fl (84-94) 08/03/22 04:40 MCH 28 pg (28-32) 08/03/22 04:40 MCHC 32 % (32-34) 08/03/22 04:40 RDW 15.7 % (13.2-15.2) H 08/03/22 04:40 Plt Count 142 K/mm3 (140-440) 08/03/22 04:40 Lymph % (Auto) 21.7 % (13.4-35.0) 07/25/22 19:37 Schleicher % (Auto) 7.3 % (0.0-7.3) 07/25/22 19:37 Eos % (Auto) 0.0 % (0.0-4.3) 07/25/22 19:37 Baso % (Auto) 0.3 % (0.0-1.8) 07/25/22 19:37 Lymph # (Auto) 4.1 K/mm3 (1.2-5.4) 07/25/22 19:37 Schleicher # (Auto) 1.4 K/mm3 (0.0-0.8) H 07/25/22 19:37 Eos # (Auto) 0.0 K/mm3 (0.0-0.4) 07/25/22 19:37 Baso # (Auto) 0.1 K/mm3 (0.0-0.1) 07/25/22 19:37 Add Manual Diff Complete 07/27/22 03:50 Total Counted 100 07/27/22 03:50 Seg Neutrophils % 70.7 % (40.0-70.0) H 07/25/22 19:37 Seg Neuts % (Manual) 78.0 % (40.0-70.0) H 07/27/22 03:50 Band Neutrophils % 16.0 % 07/27/22 03:50 Lymphocytes % (Manual) 3.0 % (13.4-35.0) L 07/27/22 03:50 Reactive Lymphs % (Man) 0 % 07/27/22 03:50 Monocytes % (Manual) 2.0 % (0.0-7.3) 07/27/22 03:50 Eosinophils % (Manual) 0 % (0.0-4.3) 07/27/22 03:50 Basophils % (Manual) 0 % (0.0-1.8) 07/27/22 03:50 Metamyelocytes % 1.0 % 07/27/22 03:50 Myelocytes % 0 % 07/27/22 03:50 Promyelocytes % 0 % 07/27/22 03:50 Blast Cells % 0 % 07/27/22 03:50 Nucleated RBC % Not Reportable 07/27/22 03:50 Seg Neutrophils # 13.3 K/mm3 (1.8-7.7) H 07/25/22 19:37 Seg Neutrophils # Man 12.0 K/mm3 (1.8-7.7) H 07/27/22 03:50 Band Neutrophils # 2.5 K/mm3 07/27/22 03:50 Lymphocytes # (Manual) 0.5 K/mm3 (1.2-5.4) L 07/27/22 03:50 Abs React Lymphs (Man) 0.0 K/mm3 07/27/22 03:50 Monocytes # (Manual) 0.3 K/mm3 (0.0-0.8) 07/27/22 03:50 Eosinophils # (Manual) 0.0 K/mm3 (0.0-0.4) 07/27/22 03:50 Basophils # (Manual) 0.0 K/mm3 (0.0-0.1) 07/27/22 03:50 Metamyelocytes # 0.2 K/mm3 07/27/22 03:50 Myelocytes # 0.0 K/mm3 07/27/22 03:50 Promyelocytes # 0.0 K/mm3 07/27/22 03:50 Blast Cells # 0.0 K/mm3 07/27/22 03:50 WBC Morphology Not Reportable 07/27/22 03:50 Hypersegmented Neuts Not Reportable 07/27/22 03:50 Hyposegmented Neuts Not Reportable 07/27/22 03:50 Hypogranular Neuts Not Reportable 07/27/22 03:50 Smudge Cells Not Reportable 07/27/22 03:50 Toxic Granulation Not Reportable 07/27/22 03:50 Toxic Vacuolation Not Reportable 07/27/22 03:50 Dohle Bodies Not Reportable 07/27/22 03:50 Pelger-Huet Anomaly Not Reportable 07/27/22 03:50 Jay Rods Not Reportable 07/27/22 03:50 Platelet Estimate Consistent w auto 07/27/22 03:50 Clumped Platelets Not Reportable 07/27/22 03:50 Plt Clumps, EDTA Not Reportable 07/27/22 03:50 Large Platelets Not Reportable 07/27/22 03:50 Giant Platelets Not Reportable 07/27/22 03:50 Platelet Satelliting Not Reportable 07/27/22 03:50 Plt Morphology Comment Not Reportable 07/27/22 03:50 RBC Morphology Not Reportable 07/27/22 03:50 Dimorphic RBCs Not Reportable 07/27/22 03:50 Polychromasia Not Reportable 07/27/22 03:50 Hypochromasia Not Reportable 07/27/22 03:50 Poikilocytosis Not Reportable 07/27/22 03:50 Anisocytosis Not Reportable 07/27/22 03:50 Microcytosis Not Reportable 07/27/22 03:50 Macrocytosis Not Reportable 07/27/22 03:50 Spherocytes Not Reportable 07/27/22 03:50 Pappenheimer Bodies Not Reportable 07/27/22 03:50 Sickle Cells Not Reportable 07/27/22 03:50 Target Cells Not Reportable 07/27/22 03:50 Tear Drop Cells Not Reportable 07/27/22 03:50 Ovalocytes Not Reportable 07/27/22 03:50 Helmet Cells Not Reportable 07/27/22 03:50 Reynolds-[place] Bodies Not Reportable 07/27/22 03:50 [place] Rings Not Reportable 07/27/22 03:50 Williams Cells Not Reportable 07/27/22 03:50 Bite Cells Not Reportable 07/27/22 03:50 Crenated Cell Not Reportable 07/27/22 03:50 Elliptocytes Not Reportable 07/27/22 03:50 Acanthocytes (Spur) Not Reportable 07/27/22 03:50 Rouleaux Not Reportable 07/27/22 03:50 Hemoglobin C Crystals Not Reportable 07/27/22 03:50 Schistocytes Not Reportable 07/27/22 03:50 Malaria parasites Not Reportable 07/27/22 03:50 Peewee Bodies Not Reportable 07/27/22 03:50 Hem Pathologist Commnt No 07/27/22 03:50 PT 14.3 Sec. (12.2-14.9) 07/31/22 04:13 INR 0.97 (0.87-1.13) 07/31/22 04:13 ABG pH 7.500 pH Units (7.350-7.450) H 08/03/22 03:35 ABG pCO2 26.7 mm Hg 08/03/22 03:35 ABG pO2 129.6 mm Hg (80.0-90.0) H 08/03/22 03:35 ABG HCO3 20.4 mmol/L (20.0-26.0) 08/03/22 03:35 ABG O2 Saturation 98.7 % (95.0-99.0) 08/03/22 03:35 ABG O2 Content 13.5 (0.0-44) 08/03/22 03:35 ABG Base Excess -2.0 mmol/L (-2.0-3.0) 08/03/22 03:35 ABG Hemoglobin 9.7 gm/dl (14.0-18.0) L 08/03/22 03:35 ABG Carboxyhemoglobin 1.5 % (0.0-5.0) 08/03/22 03:35 ABG Methemoglobin 0.4 % (0.0-1.5) 08/03/22 03:35 VBG pH 7.362 (7.320-7.420) 07/25/22 19:37 Oxyhemoglobin 96.8 % (95.0-99.0) 08/03/22 03:35 FiO2 30 % 08/03/22 03:35 Sodium 143 mmol/L (137-145) 08/03/22 04:40 Potassium 3.3 mmol/L (3.6-5.0) L 08/03/22 04:40 Chloride 107.9 mmol/L (98-107) H 08/03/22 04:40 Carbon Dioxide 21 mmol/L (22-30) L 08/03/22 04:40 Anion Gap 17 mmol/L 08/03/22 04:40 BUN 37 mg/dL (9-20) H 08/03/22 04:40 Creatinine 1.2 mg/dL (0.8-1.3) 08/03/22 04:40 Estimated GFR 59 ml/min 08/03/22 04:40 BUN/Creatinine Ratio 31 % 08/03/22 04:40 Glucose 111 mg/dL (75-100) H 08/03/22 04:40 POC Glucose 75 mg/dL (70-105) 08/03/22 11:37 Hemoglobin A1c 12.3 % (4-6) H 07/27/22 12:13 Lactic Acid 9.70 mmol/L (0.7-2.0) H* 07/26/22 15:36 Calcium 5.5 mg/dL (8.4-10.2) L* 08/03/22 04:40 Phosphorus 2.60 mg/dL (2.5-4.5) 08/03/22 04:40 Magnesium 1.60 mg/dL (1.7-2.3) L 08/03/22 04:40 Total Bilirubin 0.30 mg/dL (0.1-1.2) 07/27/22 03:50 AST 64 units/L (5-40) H 07/27/22 03:50 ALT 31 units/L (7-56) 07/27/22 03:50 Alkaline Phosphatase 61 units/L (35-129) 07/27/22 03:50 Ammonia 64.0 umol/L (25-60) H 07/25/22 19:37 Total Creatine Kinase 158 units/L (55-170) 07/25/22 19:37 CK-MB (CK-2) < 1.0 ng/mL (0.0-4.0) 07/25/22 19:37 CK-MB (CK-2) Rel Index 0.6 (0-4) 07/25/22 19:37 Troponin T 0.049 ng/mL (0.00-0.029) H D 07/26/22 15:36 Total Protein 4.1 g/dL (6.3-8.2) L D 07/27/22 03:50 Albumin 2.1 g/dL (3.9-5) L 07/27/22 03:50 Albumin/Globulin Ratio 1.1 % 07/27/22 03:50 Triglycerides 362 mg/dL (2-149) H 07/25/22 19:37 Cholesterol 126 mg/dL (50-199) 07/25/22 19:37 LDL Cholesterol Direct 44 mg/dL (50-130) L 07/25/22 19:37 HDL Cholesterol 34 mg/dL (40-59) L 07/25/22 19:37 Cholesterol/HDL Ratio 3.70 % 07/25/22 19:37 TSH 2.170 mlU/mL (0.270-4.200) 07/25/22 19:37 Free T4 1.18 ng/dL (0.76-1.46) 07/25/22 19:37 Urine Color Lin (Yellow) 07/26/22 08:31 Urine Turbidity Cloudy (Clear) 07/26/22 08:31 Specific [place] (Man) 1.010 (1.003-1.030) 07/26/22 08:31 Ur Protein (Man) <30 mg dl mg/dL (Negative) 07/26/22 08:31 Ur Ketones (Man) Negative (Negative) 07/26/22 08:31 Ur Nitrite (Man) Negative (Negative) 07/26/22 08:31 Ur Reducing Substances Not Reportable 07/26/22 08:31 Urine Bilirubin (Man) Negative (Negative) 07/26/22 08:31 Urine Ictotest Not Reportable 07/26/22 08:31 Leukocyte Esterase (Man) Trace (Negative) 07/26/22 08:31 Urine WBC (Auto) < 1.0 /HPF (0.0-6.0) 07/26/22 08:31 Urine RBC (Auto) 1.0 /HPF (0.0-6.0) 07/26/22 08:31 U Epithel Cells (Auto) 3.0 /HPF (0-13.0) 07/26/22 08:31 Urine RBC (Manual) 5-10 (Negative) 07/26/22 08:31 Ur Renal Epithelial Cell 3 /LPF 07/26/22 08:31 Urine Mucus Few /HPF 07/26/22 08:31 Urine Creatinine 118.4 mg/dL (0.1-20.0) H 07/26/22 18:10 Protein/Creatinin Ratio 1.23 07/26/22 18:10 Urine Sodium 108 mmol/L 07/26/22 18:10 Urine Total Protein 146 mg/dL (5-11.8) H 07/26/22 18:10 Yañez/IV: Voiding Method Indwelling Catheter Active Medications - Current Medications Current Medications: Generic Name Dose Route Start Last Admin Trade Name Freq PRN Reason Stop Dose Admin Acetaminophen 650 mg 07/26/22 00:31 07/31/22 23:30 Acetaminophen 325 Mg Tab PO 650 mg Q4H PRN Administration Pain MILD(1-3)/Fever >100.5/LANTIGUA Acetaminophen 650 mg 07/26/22 02:04 Acetaminophen 650 Mg Rect Supp NE Q4H PRN Pain, Mild (1-3) Albuterol 2.5 mg 07/26/22 00:31 Albuterol 2.5 Mg/3 Ml Nebu IH Q3HRT PRN Shortness Of Breath Amiodarone HCl 200 mg 07/29/22 15:00 08/03/22 10:18 Amiodarone 200 Mg Tab PO 200 mg BID LIZZIE Administration Atorvastatin Calcium 40 mg 07/26/22 22:00 08/02/22 21:03 Atorvastatin 40 Mg Tab PO 40 mg QHS LIZZIE Administration Dextrose 50 ml 07/27/22 09:25 08/02/22 23:06 Dextrose 50% In Water (25gm) 50 Ml Syringe IV 15 ml Q30MIN PRN Administration Hypoglycemia Protocol Famotidine 10 mg 07/28/22 10:00 08/03/22 10:18 Famotidine 10 Mg Tab FEEDTUBE 10 mg BID LIZZIE Administration Hydrocortisone Sodium Succinate 25 mg 08/03/22 10:00 08/03/22 10:18 Hydrocortisone Sod Succ 100 Mg/2 Ml Vial IV 08/05/22 10:01 25 mg Q24HR LIZZIE Administration Insulin Glargine 10 units 08/03/22 22:00 Insulin Glargine 100 Units/Ml SUB-Q QHS COUNT INCLUDES THE [facility] Insulin Human Regular 0 units 07/27/22 12:00 08/03/22 12:04 Insulin Regular, Human 100 Units/1 Ml SUB-Q Not Given Q6H COUNT INCLUDES THE [facility] Protocol Multi-Ingred Cream/Lotion/Oil/Oint 1 applic 07/27/22 03:17 07/27/22 03:35 Mineral Oil/Petrolatum, White Ophth Oint 3.5 Gm OU 1 applic PRN PRN Administration Dry Eye(s) Nitroglycerin 0.4 mg 07/26/22 00:31 Nitroglycerin 0.4 Mg Tab Subl SL Q5M PRN Chest Pain Ondansetron HCl 4 mg 07/26/22 00:31 Ondansetron 4 Mg/2 Ml Inj IV Q8H PRN Nausea And Vomiting Sodium Bicarbonate 650 mg 07/29/22 20:00 08/03/22 13:48 Sodium Bicarbonate 650 Mg Tab PO 650 mg TID LIZZIE Administration Sodium Chloride 10 ml 07/26/22 10:00 08/03/22 10:19 Sodium Chloride 0.9% 10 Ml Flush Syringe IV 10 ml BID LIZZIE Administration Sodium Chloride 10 ml 07/26/22 00:31 Sodium Chloride 0.9% 10 Ml Flush Syringe IV PRN PRN LINE FLUSH Nutrition/Malnutrition Assess - Dietary Evaluation Nutrition/Malnutrition Findings: Nutrition Notes Start: 07/26/22 10:25 Freq: Status: Active Protocol: Document 07/31/22 14:58 PEACE (Rec: 07/31/22 15:04 COUNTS INCLUDE 234 BEDS AT THE [facility] [id number]) Nutrition Notes Initial or Follow up Reassessment Current Diagnosis Acute Kidney Injury,Diabetes, Hypertension,Respiratory Failure,Hyperlipidemia Other Pertinent Diagnosis s/p cardiac arrest, s/p DKA, acute metabolic encephalopathy Current Diet TF - Glucerna 1.2 at 45ml/hr Labs/Tests Na 146 K 3.4 BUN 53 Cr 1.6 BG 151 Pertinent Medications 40mEq KCl Height 5 ft 5 in Weight 49.8 kg [place] Body Weight (kg) 61.81 BMI 18.2 Subjective/Other Information Observed Glucerna 1.2 infusing at goal rate; pt tolerating TF. MD ordered 250ml water flush q4h. Pt remains on vent support; renal function improving. Percent of energy/protein needs met: 93% energy 100% pro Burn Absent Trauma Absent #1 Nutrition Diagnosis Inadequate oral intake Diagnosis Progress(for reassessment Continues documentation) Is patient on ventilator? Yes Is Patient Ambulatory and/or Out of Bed No REE-([facility]-confined to bed) [phone] Calculation Used for Recommendations [facility] Additional Notes Pro needs 0.8-1.2g/k-60g/ day Fluid needs per MD. Nutrition Intervention Nutrition Support: Continue Glucerna 1.2 at 45ml/ hr with 250ml water flush q4h until hypernatremia resolved. Kcal 1,296 Protein (gm) 65 Carbohydrates (gm) 124 Fat (gm) 65 Fluid (mL) 869 Fiber (gm) 17 Goal #1 TF tolerance Goal #2 TF to provide at least 75% energy and pro needs Follow-Up By: 08/07/22 Additional Comments F/U: stable TF, trach/PEG placement, vent status, renal function, BM <DASHA DOWNING - Last Filed: 08/04/22 07:36> Assessment and Plan Assessment and plan: I saw and evaluated the patient. I agree with the findings and the plan of care as documented in the Nurse Practitioner's~note, with the following corrections and additions. Hospitalist Physical - Constitutional Vitals: Temp Pulse Resp BP Pulse Ox 98.2 F 108 H 26 H 146/79 95 08/04/22 04:00 08/04/22 07:00 08/04/22 07:00 08/04/22 07:00 08/04/22 07:00 HEART Score - HEART Score Troponin: Troponin T 0.049 ng/mL (0.00-0.029) H D 07/26/22 15:36 Results - Labs CBC & Chem 7: 08/04/22 04:39 08/04/22 04:39 Labs: Laboratory Last Values WBC 14.2 K/mm3 (4.5-11.0) H 08/04/22 04:39 RBC 3.61 M/mm3 (3.65-5.03) L 08/04/22 04:39 Hgb 10.3 gm/dl (11.8-15.2) L 08/04/22 04:39 Hct 31.2 % (35.5-45.6) L 08/04/22 04:39 MCV 87 fl (84-94) 08/04/22 04:39 MCH 29 pg (28-32) 08/04/22 04:39 MCHC 33 % (32-34) 08/04/22 04:39 RDW 15.4 % (13.2-15.2) H 08/04/22 04:39 Plt Count 194 K/mm3 (140-440) 08/04/22 04:39 Lymph % (Auto) 21.7 % (13.4-35.0) 07/25/22 19:37 Schleicher % (Auto) 7.3 % (0.0-7.3) 07/25/22 19:37 Eos % (Auto) 0.0 % (0.0-4.3) 07/25/22 19:37 Baso % (Auto) 0.3 % (0.0-1.8) 07/25/22 19:37 Lymph # (Auto) 4.1 K/mm3 (1.2-5.4) 07/25/22 19:37 Schleicher # (Auto) 1.4 K/mm3 (0.0-0.8) H 07/25/22 19:37 Eos # (Auto) 0.0 K/mm3 (0.0-0.4) 07/25/22 19:37 Baso # (Auto) 0.1 K/mm3 (0.0-0.1) 07/25/22 19:37 Add Manual Diff Complete 07/27/22 03:50 Total Counted 100 07/27/22 03:50 Seg Neutrophils % 70.7 % (40.0-70.0) H 07/25/22 19:37 Seg Neuts % (Manual) 78.0 % (40.0-70.0) H 07/27/22 03:50 Band Neutrophils % 16.0 % 07/27/22 03:50 Lymphocytes % (Manual) 3.0 % (13.4-35.0) L 07/27/22 03:50 Reactive Lymphs % (Man) 0 % 07/27/22 03:50 Monocytes % (Manual) 2.0 % (0.0-7.3) 07/27/22 03:50 Eosinophils % (Manual) 0 % (0.0-4.3) 07/27/22 03:50 Basophils % (Manual) 0 % (0.0-1.8) 07/27/22 03:50 Metamyelocytes % 1.0 % 07/27/22 03:50 Myelocytes % 0 % 07/27/22 03:50 Promyelocytes % 0 % 07/27/22 03:50 Blast Cells % 0 % 07/27/22 03:50 Nucleated RBC % Not Reportable 07/27/22 03:50 Seg Neutrophils # 13.3 K/mm3 (1.8-7.7) H 07/25/22 19:37 Seg Neutrophils # Man 12.0 K/mm3 (1.8-7.7) H 07/27/22 03:50 Band Neutrophils # 2.5 K/mm3 07/27/22 03:50 Lymphocytes # (Manual) 0.5 K/mm3 (1.2-5.4) L 07/27/22 03:50 Abs React Lymphs (Man) 0.0 K/mm3 07/27/22 03:50 Monocytes # (Manual) 0.3 K/mm3 (0.0-0.8) 07/27/22 03:50 Eosinophils # (Manual) 0.0 K/mm3 (0.0-0.4) 07/27/22 03:50 Basophils # (Manual) 0.0 K/mm3 (0.0-0.1) 07/27/22 03:50 Metamyelocytes # 0.2 K/mm3 07/27/22 03:50 Myelocytes # 0.0 K/mm3 07/27/22 03:50 Promyelocytes # 0.0 K/mm3 07/27/22 03:50 Blast Cells # 0.0 K/mm3 07/27/22 03:50 WBC Morphology Not Reportable 07/27/22 03:50 Hypersegmented Neuts Not Reportable 07/27/22 03:50 Hyposegmented Neuts Not Reportable 07/27/22 03:50 Hypogranular Neuts Not Reportable 07/27/22 03:50 Smudge Cells Not Reportable 07/27/22 03:50 Toxic Granulation Not Reportable 07/27/22 03:50 Toxic Vacuolation Not Reportable 07/27/22 03:50 Dohle Bodies Not Reportable 07/27/22 03:50 Pelger-Huet Anomaly Not Reportable 07/27/22 03:50 Jay Rods Not Reportable 07/27/22 03:50 Platelet Estimate Consistent w auto 07/27/22 03:50 Clumped Platelets Not Reportable 07/27/22 03:50 Plt Clumps, EDTA Not Reportable 07/27/22 03:50 Large Platelets Not Reportable 07/27/22 03:50 Giant Platelets Not Reportable 07/27/22 03:50 Platelet Satelliting Not Reportable 07/27/22 03:50 Plt Morphology Comment Not Reportable 07/27/22 03:50 RBC Morphology Not Reportable 07/27/22 03:50 Dimorphic RBCs Not Reportable 07/27/22 03:50 Polychromasia Not Reportable 07/27/22 03:50 Hypochromasia Not Reportable 07/27/22 03:50 Poikilocytosis Not Reportable 07/27/22 03:50 Anisocytosis Not Reportable 07/27/22 03:50 Microcytosis Not Reportable 07/27/22 03:50 Macrocytosis Not Reportable 07/27/22 03:50 Spherocytes Not Reportable 07/27/22 03:50 Pappenheimer Bodies Not Reportable 07/27/22 03:50 Sickle Cells Not Reportable 07/27/22 03:50 Target Cells Not Reportable 07/27/22 03:50 Tear Drop Cells Not Reportable 07/27/22 03:50 Ovalocytes Not Reportable 07/27/22 03:50 Helmet Cells Not Reportable 07/27/22 03:50 Reynolds-[place] Bodies Not Reportable 07/27/22 03:50 [place] Rings Not Reportable 07/27/22 03:50 Williams Cells Not Reportable 07/27/22 03:50 Bite Cells Not Reportable 07/27/22 03:50 Crenated Cell Not Reportable 07/27/22 03:50 Elliptocytes Not Reportable 07/27/22 03:50 Acanthocytes (Spur) Not Reportable 07/27/22 03:50 Rouleaux Not Reportable 07/27/22 03:50 Hemoglobin C Crystals Not Reportable 07/27/22 03:50 Schistocytes Not Reportable 07/27/22 03:50 Malaria parasites Not Reportable 07/27/22 03:50 [place] Bodies Not Reportable 07/27/22 03:50 Hem Pathologist Commnt No 07/27/22 03:50 PT 14.3 Sec. (12.2-14.9) 07/31/22 04:13 INR 0.97 (0.87-1.13) 07/31/22 04:13 Heparin Anti-Xa, Unfract Negative (Negative) 08/01/22 04:17 ABG pH 7.500 pH Units (7.350-7.450) H 08/03/22 03:35 ABG pCO2 26.7 mm Hg 08/03/22 03:35 ABG pO2 129.6 mm Hg (80.0-90.0) H 08/03/22 03:35 ABG HCO3 20.4 mmol/L (20.0-26.0) 08/03/22 03:35 ABG O2 Saturation 98.7 % (95.0-99.0) 08/03/22 03:35 ABG O2 Content 13.5 (0.0-44) 08/03/22 03:35 ABG Base Excess -2.0 mmol/L (-2.0-3.0) 08/03/22 03:35 ABG Hemoglobin 9.7 gm/dl (14.0-18.0) L 08/03/22 03:35 ABG Carboxyhemoglobin 1.5 % (0.0-5.0) 08/03/22 03:35 ABG Methemoglobin 0.4 % (0.0-1.5) 08/03/22 03:35 VBG pH 7.362 (7.320-7.420) 07/25/22 19:37 Oxyhemoglobin 96.8 % (95.0-99.0) 08/03/22 03:35 FiO2 30 % 08/03/22 03:35 Sodium 141 mmol/L (137-145) 08/04/22 04:39 Potassium 3.1 mmol/L (3.6-5.0) L 08/04/22 04:39 Chloride 106.4 mmol/L (98-107) 08/04/22 04:39 Carbon Dioxide 18 mmol/L (22-30) L 08/04/22 04:39 Anion Gap 20 mmol/L 08/04/22 04:39 BUN 30 mg/dL (9-20) H 08/04/22 04:39 Creatinine 1.2 mg/dL (0.8-1.3) 08/04/22 04:39 Estimated GFR 59 ml/min 08/04/22 04:39 BUN/Creatinine Ratio 25 % 08/04/22 04:39 Glucose 68 mg/dL (75-100) L 08/04/22 04:39 POC Glucose 85 mg/dL (70-105) 08/03/22 21:37 Hemoglobin A1c 12.3 % (4-6) H 07/27/22 12:13 Lactic Acid 9.70 mmol/L (0.7-2.0) H* 07/26/22 15:36 Calcium 6.1 mg/dL (8.4-10.2) L 08/04/22 04:39 Phosphorus 2.00 mg/dL (2.5-4.5) L D 08/04/22 04:39 Magnesium 1.70 mg/dL (1.7-2.3) 08/04/22 04:39 Total Bilirubin 0.30 mg/dL (0.1-1.2) 07/27/22 03:50 AST 64 units/L (5-40) H 07/27/22 03:50 ALT 31 units/L (7-56) 07/27/22 03:50 Alkaline Phosphatase 61 units/L (35-129) 07/27/22 03:50 Ammonia 64.0 umol/L (25-60) H 07/25/22 19:37 Total Creatine Kinase 158 units/L (55-170) 07/25/22 19:37 CK-MB (CK-2) < 1.0 ng/mL (0.0-4.0) 07/25/22 19:37 CK-MB (CK-2) Rel Index 0.6 (0-4) 07/25/22 19:37 Troponin T 0.049 ng/mL (0.00-0.029) H D 07/26/22 15:36 Total Protein 4.1 g/dL (6.3-8.2) L D 07/27/22 03:50 Albumin 2.1 g/dL (3.9-5) L 07/27/22 03:50 Albumin/Globulin Ratio 1.1 % 07/27/22 03:50 Triglycerides 362 mg/dL (2-149) H 07/25/22 19:37 Cholesterol 126 mg/dL (50-199) 07/25/22 19:37 LDL Cholesterol Direct 44 mg/dL (50-130) L 07/25/22 19:37 HDL Cholesterol 34 mg/dL (40-59) L 07/25/22 19:37 Cholesterol/HDL Ratio 3.70 % 07/25/22 19:37 TSH 2.170 mlU/mL (0.270-4.200) 07/25/22 19:37 Free T4 1.18 ng/dL (0.76-1.46) 07/25/22 19:37 Urine Color Lin (Yellow) 07/26/22 08:31 Urine Turbidity Cloudy (Clear) 07/26/22 08:31 Specific [place] (Man) 1.010 (1.003-1.030) 07/26/22 08:31 Ur Protein (Man) <30 mg dl mg/dL (Negative) 07/26/22 08:31 Ur Ketones (Man) Negative (Negative) 07/26/22 08:31 Ur Nitrite (Man) Negative (Negative) 07/26/22 08:31 Ur Reducing Substances Not Reportable 07/26/22 08:31 Urine Bilirubin (Man) Negative (Negative) 07/26/22 08:31 Urine Ictotest Not Reportable 07/26/22 08:31 Leukocyte Esterase (Man) Trace (Negative) 07/26/22 08:31 Urine WBC (Auto) < 1.0 /HPF (0.0-6.0) 07/26/22 08:31 Urine RBC (Auto) 1.0 /HPF (0.0-6.0) 07/26/22 08:31 U Epithel Cells (Auto) 3.0 /HPF (0-13.0) 07/26/22 08:31 Urine RBC (Manual) 5-10 (Negative) 07/26/22 08:31 Ur Renal Epithelial Cell 3 /LPF 07/26/22 08:31 Urine Mucus Few /HPF 07/26/22 08:31 Urine Creatinine 118.4 mg/dL (0.1-20.0) H 07/26/22 18:10 Protein/Creatinin Ratio 1.23 07/26/22 18:10 Urine Sodium 108 mmol/L 07/26/22 18:10 Urine Total Protein 146 mg/dL (5-11.8) H 07/26/22 18:10 Heparin-induced Plt Ab Negative (Negative) 08/01/22 04:17 UF Heparin High Dose 0 % Release 08/01/22 04:17 SU UFH Low Dose 0.1 0 % Release 08/01/22 04:17 SU UFH Low Dose 0.5 0 % Release 08/01/22 04:17 Yañez/IV: Voiding Method Indwelling Catheter Active Medications - Current Medications Current Medications: Generic Name Dose Route Start Last Admin Trade Name Freq PRN Reason Stop Dose Admin Acetaminophen 650 mg 07/26/22 00:31 07/31/22 23:30 Acetaminophen 325 Mg Tab PO 650 mg Q4H PRN Administration Pain MILD(1-3)/Fever >100.5/LANTIGUA Acetaminophen 650 mg 07/26/22 02:04 Acetaminophen 650 Mg Rect Supp NE Q4H PRN Pain, Mild (1-3) Albuterol 2.5 mg 07/26/22 00:31 Albuterol 2.5 Mg/3 Ml Nebu IH Q3HRT PRN Shortness Of Breath Amiodarone HCl 200 mg 07/29/22 15:00 08/03/22 21:42 Amiodarone 200 Mg Tab PO 200 mg BID LIZZIE Administration Atorvastatin Calcium 40 mg 07/26/22 22:00 08/03/22 21:43 Atorvastatin 40 Mg Tab PO 40 mg QHS LIZZIE Administration Dextrose 50 ml 07/27/22 09:25 08/04/22 06:03 Dextrose 50% In Water (25gm) 50 Ml Syringe IV 50 ml Q30MIN PRN Administration Hypoglycemia Protocol Famotidine 10 mg 07/28/22 10:00 08/03/22 21:43 Famotidine 10 Mg Tab FEEDTUBE 10 mg BID LIZZIE Administration Hydrocortisone Sodium Succinate 25 mg 08/03/22 10:00 08/03/22 10:18 Hydrocortisone Sod Succ 100 Mg/2 Ml Vial IV 08/05/22 10:01 25 mg Q24HR LIZZIE Administration Insulin Glargine 10 units 08/03/22 22:00 08/03/22 21:43 Insulin Glargine 100 Units/Ml SUB-Q Not Given QHS COUNT INCLUDES THE [facility] Insulin Human Regular 0 units 07/27/22 12:00 08/04/22 06:02 Insulin Regular, Human 100 Units/1 Ml SUB-Q Not Given Q6H COUNT INCLUDES THE [facility] Protocol Multi-Ingred Cream/Lotion/Oil/Oint 1 applic 07/27/22 03:17 07/27/22 03:35 Mineral Oil/Petrolatum, White Ophth Oint 3.5 Gm OU 1 applic PRN PRN Administration Dry Eye(s) Nitroglycerin 0.4 mg 07/26/22 00:31 Nitroglycerin 0.4 Mg Tab Subl SL Q5M PRN Chest Pain Ondansetron HCl 4 mg 07/26/22 00:31 Ondansetron 4 Mg/2 Ml Inj IV Q8H PRN Nausea And Vomiting Sodium Bicarbonate 650 mg 07/29/22 20:00 08/04/22 07:34 Sodium Bicarbonate 650 Mg Tab PO 650 mg TID LIZZIE Administration Sodium Chloride 10 ml 07/26/22 10:00 08/03/22 21:44 Sodium Chloride 0.9% 10 Ml Flush Syringe IV 10 ml BID LIZZIE Administration Sodium Chloride 10 ml 07/26/22 00:31 Sodium Chloride 0.9% 10 Ml Flush Syringe IV PRN PRN LINE FLUSH Nutrition/Malnutrition Assess - Dietary Evaluation Nutrition/Malnutrition Findings: Nutrition Notes Start: 07/26/22 10:25 Freq: Status: Active Protocol: Document 07/31/22 14:58 PEACE (Rec: 07/31/22 15:04 PEACE [email or web address]) Nutrition Notes Initial or Follow up Reassessment Current Diagnosis Acute Kidney Injury,Diabetes, Hypertension,Respiratory Failure,Hyperlipidemia Other Pertinent Diagnosis s/p cardiac arrest, s/p DKA, acute metabolic encephalopathy Current Diet TF - Glucerna 1.2 at 45ml/hr Labs/Tests Na 146 K 3.4 BUN 53 Cr 1.6 BG 151 Pertinent Medications 40mEq KCl Height 5 ft 5 in Weight 49.8 kg [place] Body Weight (kg) 61.81 BMI 18.2 Subjective/Other Information Observed Glucerna 1.2 infusing at goal rate; pt tolerating TF. MD ordered 250ml water flush q4h. Pt remains on vent support; renal function improving. Percent of energy/protein needs met: 93% energy 100% pro Burn Absent Trauma Absent #1 Nutrition Diagnosis Inadequate oral intake Diagnosis Progress(for reassessment Continues documentation) Is patient on ventilator? Yes Is Patient Ambulatory and/or Out of Bed No REE-([place]-St. Jeor-confined to bed) [phone] Calculation Used for Recommendations [place]-St Jeor Additional Notes Pro needs 0.8-1.2g/k-60g/ day Fluid needs per MD. Nutrition Intervention Nutrition Support: Continue Glucerna 1.2 at 45ml/ hr with 250ml water flush q4h until hypernatremia resolved. Kcal 1,296 Protein (gm) 65 Carbohydrates (gm) 124 Fat (gm) 65 Fluid (mL) 869 Fiber (gm) 17 Goal #1 TF tolerance Goal #2 TF to provide at least 75% energy and pro needs Follow-Up By: 08/07/22 Additional Comments F/U: stable TF, trach/PEG placement, vent status, renal function, BM
[2022-08-03 15:21] LABS: Heparin-Induced Platelet Antib Negative (Negative); Unfractionated Heparin Negative (Negative)
[2022-08-03] MEDS ORDERED: INSULIN GLARGINE 100 UNITS/ML SUB-Q SCH (22:00)
[2022-08-04] MEDS: DEXTROSE 50% IN WATER (25GM) 50 ML SYRINGE IV PRN ×2 (00:39→06:03)
[2022-08-04] MEDS: INSULIN REGULAR, HUMAN 100 UNITS/1 ML SUB-Q SCH ×4 (01:03→18:01)
[2022-08-04] MEDS: FREE WATER PO SCH ×6 (02:24→22:10)
[2022-08-04 05:10] LABS: Hematocrit 31.2 % (35.5-45.6); Hemoglobin 10.3 gm/dl (11.8-15.2); Mean Corpuscular HGB Conc 33 % (32-34); Mean Corpuscular Volume 87 fl (84-94); Platelet Count 194 K/mm3 (140-440); Red Blood Count 3.61 M/mm3 (3.65-5.03); Red Cell Distribution Width 15.4 % (13.2-15.2)
[2022-08-04 05:32] LABS: Calcium 6.1 mg/dL (8.4-10.2)
[2022-08-04] MEDS: SODIUM BICARBONATE 650 MG TAB PO SCH (07:34)
[2022-08-04] MEDS: HYDROCORTISONE SOD SUCC 100 MG/2 ML VIAL IV SCH (10:47)
[2022-08-04] MEDS: FAMOTIDINE 10 MG TAB FEEDTUBE SCH ×2 (10:47→22:10)
[2022-08-04] MEDS: AMIODARONE 200 MG TAB FEEDTUBE SCH ×2 (10:48→22:09)
[2022-08-04] MEDS ORDERED: POTASSIUM CHLORIDE 20 MEQ PACKET FEEDTUBE SCH (11:00)
[2022-08-04] MEDS ORDERED: MAGNESIUM SULFATE 2 GM/50 ML BAG IV SCH (11:00)
[2022-08-04] MEDS ORDERED: POTASSIUM PHOSPHATE 15 MMOL in SODIUM CHLORIDE 0.9% 250ML 250 ML IV SCH (11:30)
[2022-08-04] MEDS: ACETAMINOPHEN 325 MG TAB PO PRN (11:46)
--- NOTE | 2022-08-04 11:52 | Progress Note ---
<DENNY ARNOLD - Last Filed: 08/04/22 18:41> Assessment and Plan Assessment and plan: This is a 77-year-old male from a SNF facility with known past medical history of DM, paroxysmal atrial fibrillation, HTN, and CVA (2020) initially presented with AMS and Hyperglycemia. While in the ED, patient became obtunded with hyp oxia and was intubated for airway protection. Post intubation patient PEA arrested and ROSC was achieved after approximately 13 minutes. Hospital Course to Date: 07/26: Patient is on any sedation, very sluggish pupillary response, no cough/gag noted, no seizure activity. Neurology recs repeat CT head without contrast or MRI brain without contrast when clinically stable. Patient also had a EEG completed today. Patient is currently maxed on Levophed and vasopressin. Given several LR boluses today. Antibiotics broadened and stress dose steroids added. 07/27: Weaning pressors, phosphorus repleted, SSI and long-acting insulin initiated, tube feeding initiated. Patient now has a hypoactive cough/gag. CT head pending. LR bolus. Thrombocytopenia noted. Cardiology would like to start heparin drip due to atrial fibrillation however would like neurology input prior to. 07/28: Patient remains off of vasopressors, patient had MRI today. Worsening renal function noted. Cardiology will hold off amiodarone due to thrombocytopenia. No acute events reported overnight. 07/29: I had an extensive conversation with son and at bedside to with the help of an foreign language interpreter through the band sawyer line. Explained thoroughly of presentation to the ED from documentation, cardiac arrest, CT head and MRI brain findings. They are still electing to continue aggressive care and would like hospital assistance with getting a visa for youngest son to come to the [facility] from [place]. channel sales manager is aware of request. Steroid taper started. CBC pending. Will be repleted. Hypernatremia improving. 07/30: LR bolus, renal function is improved, thrombocytopenia worse. Likely consult surgery for trach/peg as per family requests to continue care. No acute events overnight. 07/31: Patient's mentation is unchanged. Remains on low vent setting. D/w [facility] general surgery consulted for possible trach and PEG. Renal function is improving, still hypenatremic, continue FWF per Nephrology. K repleted, continue to - Monitor and replace electrolytes as needed. Patient remains in SR on the monitor, VSS. Amiodarone gtt transitioned to PO amio per Cardio. 08/01: Condition unchanged, remains stable on low vent setting. Renal function continue to improve with persistent hypernatremia, continue FWF per Nephro. General Surgery recommendations noted. D/w General surgery, plan for possible trach and PEG exchange tomorrow or . 08/02: Remains stable on low vent settings. NPO since after midnight for possible trach/PEG today by General Surgery. Patient remains hypernatremic and due to NPO status, FWF was held. Will initiated low dose D5W gtt for now. And also to prevent hypoglycemia while NPO, patient is on Lantus BID. Currently on steroids taper, will hold tonight does and reduce Lantus to Qhs starting tomorrow. Close monitoring of BG and electrolytes. Nephrology is also following. 08/03: S/p trach and PEG exchange. Remains stable on the vent with no complications. Tolerating TF and also Tolerated 2hrs of PSV trial this am. Continue to taper IV steroids, qhs Lantus adjusted to avoid hypoglycemia. Hypernatremia improved, continue FWF per Nephro. Possible LTAC placement, case management to arrange. 08/04: ABRAM overnight. Sodium normalized this morning, electrolytes repleted, continue to monitor and replace electrolytes as needed. Nephrology is also following. Hypoglycemic overnight, TF not yet at goal, will hold Lantus for now. Continue daily PSV trial as tolerated. Possible LTAC placement, case management to arrange. Neuro: Acute metabolic encephalopathy, hepatic encephalopathy, r/o ALEC and subclinical status epilepticus, h/o CVA (2019) -Sluggish pupils, no cough/gag, periodic spontaneous respiration -Neurology consulted, appreciate recommendations -Initial CT head with no acute abnormality -Repeat CT head without contrast of preferably MRI brain without contrast when clinically stable -EEG completed -Per neurology aim for euglycemia and permissive hypertension for now -Ammonia 64 -MRI brain shows diffuse diffusion abnormality involving cerebral and cerebellum compatible with diffuse hypoxia given the patient's history, interval 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 Cardiac: S/p cardiac arrest, A. fib RVR, h/o hypertension, paroxysmal atrial fibrillation, hyperlipidemia -Patient suffered cardiac arrest on 07/25 in the ED and then was noted to be in A. fib with RVR -Amiodarone PO -Cardiology consulted, appreciate recommendations -Blood pressure monitoring per protocol -S/p vasopressor support with Levophed and vasopressin -MAP goal greater than 65 -Echocardiogram shows EF 50 to 60%, no pericardial effusion -Lipitor Respiratory: Acute hypoxic respiratory failure -CCM consulted, appreciate recommendations -Intubated on 07/25 with a 8.00 ETT in the ED -08/02 s/p Trach and PEG exchange -A.m. vent settings: PRVC-28%,6,16,400 -See RT notes for titration -A.m. ABG and CXR noted -VAP bundle -SPO2 monitoring GI: Protein calorie malnutrition -Enteral Nutrition initiated -08/02 S/p PEG-TUbe placement -NTR consult for tube feeding -PPI : Hypernatremia, metabolic acidosis, acute kidney injury likely secondary to v asomotor nephropathy, hypokalemia, hypophosphatemia -S/p 4 L LR bolus -Nephrology consulted, appreciate recommendations -Serum creatinine 03/08/2020 was 1.3, Scr. back to baseline at 1.3 today -Monitor intake and output -Renally dose medications -Avoid nephrotoxic medications -FWF q 4 hr per nephro -Renal ultrasound noted -KPhos IV -Trend BMP ID: Sepsis, Klebsiella pneumonia -Hypotension, acute kidney injury, acute respiratory failure, lactic acidosis -Antibiotic therapy with cefepime -Solu-Cortef tapering -f/u blood culture -Monitor WBC and temperature curve Endo: h/o DM s/p DKA -Presented with anion gap of 21, glucose of 761, VBG 7.362 -s/p Insulin drip -Accu-Cheks q6hr -SSI -Long-acting insulin when able -Hemaglobin A1C 12.3 Heme: Thrombocytopenia -Dropped in plt -Hematology consulted -HIT panel negative -Trend CBC -Transfuse hemoglobin less than 7 -SCDs to BLE while in bed The high probability of a clinically significant, sudden or life threatening deterioration of the [multi] system(s) required my full and direct attention, intervention and personal management. The aggregate critical care time was [60] minutes. This time is in addition to time spent performing reported procedures but includes the following: [x] Data Review and interpretation [x] Patient assessment and monitoring of vital signs [x] Documentation [x] Medication orders and management Disposition Plan: ICU Total Time Spent with Patient (Minutes): 60 History Interval history: Patient seen and examined at the bedside. Stable on the vent. VSS. VALVERDE overnight Hospitalist Physical - Physical exam Narrative exam: General appearance: Present: other (Trached, on the vent, and unresponsive) - EENT Eyes: Present: irregular pupil, mydriasis - Respiratory Respiratory effort: normal Respiratory: bilateral: rhonchi - Cardiovascular Rhythm: regular Heart Sounds: Present: S1 & S2 - Extremities Extremities: no ischemia, pulses intact, pulses symmetrical Extremity abnormal: edema - Peripheral Assessment Generalized Edema Type: Non-pitting Edema Degree: 2+ Capillary Refill: < 3 seconds Skin Temperature: Warm Peripheral Pulses: within normal limits - Abdominal General gastrointestinal: soft, non-distended, normal bowel sounds - Integumentary Integumentary: Present: warm, dry - Psychiatric Psychiatric: other (on the vent and unresponsive) - Neurologic Neurologic: other (On the vent and unresponsive) - Allied Health Allied health notes reviewed: nursing, case management - Constitutional Vitals: Temp Pulse Resp BP Pulse Ox 100.1 F H 99 H 21 155/82 98 08/04/22 08:00 08/04/22 10:00 08/04/22 10:00 08/04/22 10:00 08/04/22 10:00 HEART Score - HEART Score Troponin: Troponin T 0.049 ng/mL (0.00-0.029) H D 07/26/22 15:36 Results - Labs CBC & Chem 7: 08/04/22 04:39 08/04/22 04:39 Labs: Laboratory Last Values WBC 14.2 K/mm3 (4.5-11.0) H 08/04/22 04:39 RBC 3.61 M/mm3 (3.65-5.03) L 08/04/22 04:39 Hgb 10.3 gm/dl (11.8-15.2) L 08/04/22 04:39 Hct 31.2 % (35.5-45.6) L 08/04/22 04:39 MCV 87 fl (84-94) 08/04/22 04:39 MCH 29 pg (28-32) 08/04/22 04:39 MCHC 33 % (32-34) 08/04/22 04:39 RDW 15.4 % (13.2-15.2) H 08/04/22 04:39 Plt Count 194 K/mm3 (140-440) 08/04/22 04:39 Lymph % (Auto) 21.7 % (13.4-35.0) 07/25/22 19:37 [place] % (Auto) 7.3 % (0.0-7.3) 07/25/22 19:37 Eos % (Auto) 0.0 % (0.0-4.3) 07/25/22 19:37 Baso % (Auto) 0.3 % (0.0-1.8) 07/25/22 19:37 Lymph # (Auto) 4.1 K/mm3 (1.2-5.4) 07/25/22 19:37 [place] # (Auto) 1.4 K/mm3 (0.0-0.8) H 07/25/22 19:37 Eos # (Auto) 0.0 K/mm3 (0.0-0.4) 07/25/22 19:37 Baso # (Auto) 0.1 K/mm3 (0.0-0.1) 07/25/22 19:37 Add Manual Diff Complete 07/27/22 03:50 Total Counted 100 07/27/22 03:50 Seg Neutrophils % 70.7 % (40.0-70.0) H 07/25/22 19:37 Seg Neuts % (Manual) 78.0 % (40.0-70.0) H 07/27/22 03:50 Band Neutrophils % 16.0 % 07/27/22 03:50 Lymphocytes % (Manual) 3.0 % (13.4-35.0) L 07/27/22 03:50 Reactive Lymphs % (Man) 0 % 07/27/22 03:50 Monocytes % (Manual) 2.0 % (0.0-7.3) 07/27/22 03:50 Eosinophils % (Manual) 0 % (0.0-4.3) 07/27/22 03:50 Basophils % (Manual) 0 % (0.0-1.8) 07/27/22 03:50 Metamyelocytes % 1.0 % 07/27/22 03:50 Myelocytes % 0 % 07/27/22 03:50 Promyelocytes % 0 % 07/27/22 03:50 Blast Cells % 0 % 07/27/22 03:50 Nucleated RBC % Not Reportable 07/27/22 03:50 Seg Neutrophils # 13.3 K/mm3 (1.8-7.7) H 07/25/22 19:37 Seg Neutrophils # Man 12.0 K/mm3 (1.8-7.7) H 07/27/22 03:50 Band Neutrophils # 2.5 K/mm3 07/27/22 03:50 Lymphocytes # (Manual) 0.5 K/mm3 (1.2-5.4) L 07/27/22 03:50 Abs React Lymphs (Man) 0.0 K/mm3 07/27/22 03:50 Monocytes # (Manual) 0.3 K/mm3 (0.0-0.8) 07/27/22 03:50 Eosinophils # (Manual) 0.0 K/mm3 (0.0-0.4) 07/27/22 03:50 Basophils # (Manual) 0.0 K/mm3 (0.0-0.1) 07/27/22 03:50 Metamyelocytes # 0.2 K/mm3 07/27/22 03:50 Myelocytes # 0.0 K/mm3 07/27/22 03:50 Promyelocytes # 0.0 K/mm3 07/27/22 03:50 Blast Cells # 0.0 K/mm3 07/27/22 03:50 WBC Morphology Not Reportable 07/27/22 03:50 Hypersegmented Neuts Not Reportable 07/27/22 03:50 Hyposegmented Neuts Not Reportable 07/27/22 03:50 Hypogranular Neuts Not Reportable 07/27/22 03:50 Smudge Cells Not Reportable 07/27/22 03:50 Toxic Granulation Not Reportable 07/27/22 03:50 Toxic Vacuolation Not Reportable 07/27/22 03:50 Dohle Bodies Not Reportable 07/27/22 03:50 Pelger-Huet Anomaly Not Reportable 07/27/22 03:50 Jay Rods Not Reportable 07/27/22 03:50 Platelet Estimate Consistent w auto 07/27/22 03:50 Clumped Platelets Not Reportable 07/27/22 03:50 Plt Clumps, EDTA Not Reportable 07/27/22 03:50 Large Platelets Not Reportable 07/27/22 03:50 Giant Platelets Not Reportable 07/27/22 03:50 Platelet Satelliting Not Reportable 07/27/22 03:50 Plt Morphology Comment Not Reportable 07/27/22 03:50 RBC Morphology Not Reportable 07/27/22 03:50 Dimorphic RBCs Not Reportable 07/27/22 03:50 Polychromasia Not Reportable 07/27/22 03:50 Hypochromasia Not Reportable 07/27/22 03:50 Poikilocytosis Not Reportable 07/27/22 03:50 Anisocytosis Not Reportable 07/27/22 03:50 Microcytosis Not Reportable 07/27/22 03:50 Macrocytosis Not Reportable 07/27/22 03:50 Spherocytes Not Reportable 07/27/22 03:50 Pappenheimer Bodies Not Reportable 07/27/22 03:50 Sickle Cells Not Reportable 07/27/22 03:50 Target Cells Not Reportable 07/27/22 03:50 Tear Drop Cells Not Reportable 07/27/22 03:50 Ovalocytes Not Reportable 07/27/22 03:50 Helmet Cells Not Reportable 07/27/22 03:50 Reynolds-Friedenswald Bodies Not Reportable 07/27/22 03:50 [place] Rings Not Reportable 07/27/22 03:50 [place] Cells Not Reportable 07/27/22 03:50 Bite Cells Not Reportable 07/27/22 03:50 Crenated Cell Not Reportable 07/27/22 03:50 Elliptocytes Not Reportable 07/27/22 03:50 Acanthocytes (Spur) Not Reportable 07/27/22 03:50 Rouleaux Not Reportable 07/27/22 03:50 Hemoglobin C Crystals Not Reportable 07/27/22 03:50 Schistocytes Not Reportable 07/27/22 03:50 Malaria parasites Not Reportable 07/27/22 03:50 Peewee Bodies Not Reportable 07/27/22 03:50 Hem Pathologist Commnt No 07/27/22 03:50 PT 14.3 Sec. (12.2-14.9) 07/31/22 04:13 INR 0.97 (0.87-1.13) 07/31/22 04:13 Heparin Anti-Xa, Unfract Negative (Negative) 08/01/22 04:17 ABG pH 7.500 pH Units (7.350-7.450) H 08/03/22 03:35 ABG pCO2 26.7 mm Hg 08/03/22 03:35 ABG pO2 129.6 mm Hg (80.0-90.0) H 08/03/22 03:35 ABG HCO3 20.4 mmol/L (20.0-26.0) 08/03/22 03:35 ABG O2 Saturation 98.7 % (95.0-99.0) 08/03/22 03:35 ABG O2 Content 13.5 (0.0-44) 08/03/22 03:35 ABG Base Excess -2.0 mmol/L (-2.0-3.0) 08/03/22 03:35 ABG Hemoglobin 9.7 gm/dl (14.0-18.0) L 08/03/22 03:35 ABG Carboxyhemoglobin 1.5 % (0.0-5.0) 08/03/22 03:35 ABG Methemoglobin 0.4 % (0.0-1.5) 08/03/22 03:35 VBG pH 7.362 (7.320-7.420) 07/25/22 19:37 Oxyhemoglobin 96.8 % (95.0-99.0) 08/03/22 03:35 FiO2 30 % 08/03/22 03:35 Sodium 141 mmol/L (137-145) 08/04/22 04:39 Potassium 3.1 mmol/L (3.6-5.0) L 08/04/22 04:39 Chloride 106.4 mmol/L (98-107) 08/04/22 04:39 Carbon Dioxide 18 mmol/L (22-30) L 08/04/22 04:39 Anion Gap 20 mmol/L 08/04/22 04:39 BUN 30 mg/dL (9-20) H 08/04/22 04:39 Creatinine 1.2 mg/dL (0.8-1.3) 08/04/22 04:39 Estimated GFR 59 ml/min 08/04/22 04:39 BUN/Creatinine Ratio 25 % 08/04/22 04:39 Glucose 68 mg/dL (75-100) L 08/04/22 04:39 POC Glucose 110 mg/dL (70-105) H 08/04/22 06:32 Hemoglobin A1c 12.3 % (4-6) H 07/27/22 12:13 Lactic Acid 9.70 mmol/L (0.7-2.0) H* 07/26/22 15:36 Calcium 6.1 mg/dL (8.4-10.2) L 08/04/22 04:39 Phosphorus 2.00 mg/dL (2.5-4.5) L D 08/04/22 04:39 Magnesium 1.70 mg/dL (1.7-2.3) 08/04/22 04:39 Total Bilirubin 0.30 mg/dL (0.1-1.2) 07/27/22 03:50 AST 64 units/L (5-40) H 07/27/22 03:50 ALT 31 units/L (7-56) 07/27/22 03:50 Alkaline Phosphatase 61 units/L (35-129) 07/27/22 03:50 Ammonia 64.0 umol/L (25-60) H 07/25/22 19:37 Total Creatine Kinase 158 units/L (55-170) 07/25/22 19:37 CK-MB (CK-2) < 1.0 ng/mL (0.0-4.0) 07/25/22 19:37 CK-MB (CK-2) Rel Index 0.6 (0-4) 07/25/22 19:37 Troponin T 0.049 ng/mL (0.00-0.029) H D 07/26/22 15:36 Total Protein 4.1 g/dL (6.3-8.2) L D 07/27/22 03:50 Albumin 2.1 g/dL (3.9-5) L 07/27/22 03:50 Albumin/Globulin Ratio 1.1 % 07/27/22 03:50 Triglycerides 362 mg/dL (2-149) H 07/25/22 19:37 Cholesterol 126 mg/dL (50-199) 07/25/22 19:37 LDL Cholesterol Direct 44 mg/dL (50-130) L 07/25/22 19:37 HDL Cholesterol 34 mg/dL (40-59) L 07/25/22 19:37 Cholesterol/HDL Ratio 3.70 % 07/25/22 19:37 TSH 2.170 mlU/mL (0.270-4.200) 07/25/22 19:37 Free T4 1.18 ng/dL (0.76-1.46) 07/25/22 19:37 Urine Color Lin (Yellow) 07/26/22 08:31 Urine Turbidity Cloudy (Clear) 07/26/22 08:31 Specific [place] (Man) 1.010 (1.003-1.030) 07/26/22 08:31 Ur Protein (Man) <30 mg dl mg/dL (Negative) 07/26/22 08:31 Ur Ketones (Man) Negative (Negative) 07/26/22 08:31 Ur Nitrite (Man) Negative (Negative) 07/26/22 08:31 Ur Reducing Substances Not Reportable 07/26/22 08:31 Urine Bilirubin (Man) Negative (Negative) 07/26/22 08:31 Urine Ictotest Not Reportable 07/26/22 08:31 Leukocyte Esterase (Man) Trace (Negative) 07/26/22 08:31 Urine WBC (Auto) < 1.0 /HPF (0.0-6.0) 07/26/22 08:31 Urine RBC (Auto) 1.0 /HPF (0.0-6.0) 07/26/22 08:31 U Epithel Cells (Auto) 3.0 /HPF (0-13.0) 07/26/22 08:31 Urine RBC (Manual) 5-10 (Negative) 07/26/22 08:31 Ur Renal Epithelial Cell 3 /LPF 07/26/22 08:31 Urine Mucus Few /HPF 07/26/22 08:31 Urine Creatinine 118.4 mg/dL (0.1-20.0) H 07/26/22 18:10 Protein/Creatinin Ratio 1.23 07/26/22 18:10 Urine Sodium 108 mmol/L 07/26/22 18:10 Urine Total Protein 146 mg/dL (5-11.8) H 07/26/22 18:10 Heparin-induced Plt Ab Negative (Negative) 08/01/22 04:17 UF Heparin High Dose 0 % Release 08/01/22 04:17 SU UFH Low Dose 0.1 0 % Release 08/01/22 04:17 SU UFH Low Dose 0.5 0 % Release 08/01/22 04:17 Yañez/IV: Voiding Method Indwelling Catheter Active Medications - Current Medications Current Medications: Generic Name Dose Route Start Last Admin Trade Name Freq PRN Reason Stop Dose Admin Acetaminophen 650 mg 07/26/22 00:31 07/31/22 23:30 Acetaminophen 325 Mg Tab PO 650 mg Q4H PRN Administration Pain MILD(1-3)/Fever >100.5/LANTIGUA Acetaminophen 650 mg 07/26/22 02:04 Acetaminophen 650 Mg Rect Supp DE Q4H PRN Pain, Mild (1-3) Albuterol 2.5 mg 07/26/22 00:31 Albuterol 2.5 Mg/3 Ml Nebu IH Q3HRT PRN Shortness Of Breath Amiodarone HCl 200 mg 08/04/22 11:00 08/04/22 10:48 Amiodarone 200 Mg Tab FEEDTUBE 200 mg BID LIZZIE Administration Atorvastatin Calcium 40 mg 08/04/22 22:00 Atorvastatin 40 Mg Tab FEEDTUBE QHS LIZZIE Dextrose 50 ml 07/27/22 09:25 08/04/22 06:03 Dextrose 50% In Water (25gm) 50 Ml Syringe IV 50 ml Q30MIN PRN Administration Hypoglycemia Protocol Famotidine 10 mg 07/28/22 10:00 08/04/22 10:47 Famotidine 10 Mg Tab FEEDTUBE 10 mg BID LIZZIE Administration Hydrocortisone Sodium Succinate 25 mg 08/03/22 10:00 08/04/22 10:47 Hydrocortisone Sod Succ 100 Mg/2 Ml Vial IV 08/05/22 10:01 25 mg Q24HR LIZZIE Administration Magnesium Sulfate 2 gm in 50 mls @ 25 mls/hr 08/04/22 11:00 08/04/22 10:57 Magnesium Sulfate 2gm/50ml IV 08/04/22 15:00 25 mls/hr ONCE@1100 LIZZIE Administration Potassium Phosphate 15 mmol/ 255 mls @ 63.75 mls/hr 08/04/22 11:30 08/04/22 10:56 Sodium Chloride IV 08/04/22 15:30 63.75 mls/hr ONCE@1130 LIZZIE Administration Insulin Human Regular 0 units 07/27/22 12:00 08/04/22 06:02 Insulin Regular, Human 100 Units/1 Ml SUB-Q Not Given Q6H [facility] Protocol Multi-Ingred Cream/Lotion/Oil/Oint 1 applic 07/27/22 03:17 07/27/22 03:35 Mineral Oil/Petrolatum, White Ophth Oint 3.5 Gm OU 1 applic PRN PRN Administration Dry Eye(s) Nitroglycerin 0.4 mg 07/26/22 00:31 Nitroglycerin 0.4 Mg Tab Subl SL Q5M PRN Chest Pain Ondansetron HCl 4 mg 07/26/22 00:31 Ondansetron 4 Mg/2 Ml Inj IV Q8H PRN Nausea And Vomiting Potassium Chloride 40 meq 08/04/22 11:00 08/04/22 10:57 Potassium Chloride 20 Meq Packet FEEDTUBE 08/04/22 15:00 40 meq ONCE LIZZIE Administration Sodium Bicarbonate 650 mg 08/04/22 14:00 Sodium Bicarbonate 650 Mg Tab FEEDTUBE TID LIZZIE Sodium Chloride 10 ml 07/26/22 10:00 08/04/22 10:48 Sodium Chloride 0.9% 10 Ml Flush Syringe IV 10 ml BID LIZZIE Administration Sodium Chloride 10 ml 07/26/22 00:31 Sodium Chloride 0.9% 10 Ml Flush Syringe IV PRN PRN LINE FLUSH Nutrition/Malnutrition Assess - Dietary Evaluation Nutrition/Malnutrition Findings: Nutrition Notes Start: 07/26/22 10:25 Freq: Status: Active Protocol: Document 07/31/22 14:58 [facility] (Rec: 07/31/22 15:04 [facility] [id number]) Nutrition Notes Initial or Follow up Reassessment Current Diagnosis Acute Kidney Injury,Diabetes, Hypertension,Respiratory Failure,Hyperlipidemia Other Pertinent Diagnosis s/p cardiac arrest, s/p DKA, acute metabolic encephalopathy Current Diet TF - Glucerna 1.2 at 45ml/hr Labs/Tests Na 146 K 3.4 BUN 53 Cr 1.6 BG 151 Pertinent Medications 40mEq KCl Height 5 ft 5 in Weight 49.8 kg [place] Body Weight (kg) 61.81 BMI 18.2 Subjective/Other Information Observed Glucerna 1.2 infusing at goal rate; pt tolerating TF. MD ordered 250ml water flush q4h. Pt remains on vent support; renal function improving. Percent of energy/protein needs met: 93% energy 100% pro Burn Absent Trauma Absent #1 Nutrition Diagnosis Inadequate oral intake Diagnosis Progress(for reassessment Continues documentation) Is patient on ventilator? Yes Is Patient Ambulatory and/or Out of Bed No REE-([facility]-confined to bed) [phone] Calculation Used for Recommendations [facility] Additional Notes Pro needs 0.8-1.2g/k-60g/ day Fluid needs per MD. Nutrition Intervention Nutrition Support: Continue Glucerna 1.2 at 45ml/ hr with 250ml water flush q4h until hypernatremia resolved. Kcal 1,296 Protein (gm) 65 Carbohydrates (gm) 124 Fat (gm) 65 Fluid (mL) 869 Fiber (gm) 17 Goal #1 TF tolerance Goal #2 TF to provide at least 75% energy and pro needs Follow-Up By: 08/07/22 Additional Comments F/U: stable TF, trach/PEG placement, vent status, renal function, BM <DASHA DOWNING - Last Filed: 08/05/22 07:31> Assessment and Plan Assessment and plan: I saw and evaluated the patient. I agree with the findings and the plan of care as documented in the Nurse Practitioner's~note, with the following corrections and additions. Hospitalist Physical - Constitutional Vitals: Temp Pulse Resp BP Pulse Ox 100.3 F H 105 H 36 H 128/74 95 08/05/22 04:35 08/05/22 06:00 08/05/22 06:00 08/05/22 06:00 08/05/22 06:00 HEART Score - HEART Score Troponin: Troponin T 0.049 ng/mL (0.00-0.029) H D 07/26/22 15:36 Results - Labs CBC & Chem 7: 08/05/22 04:46 08/05/22 04:46 Labs: Laboratory Last Values WBC 12.5 K/mm3 (4.5-11.0) H 08/05/22 04:46 RBC 3.76 M/mm3 (3.65-5.03) 08/05/22 04:46 Hgb 10.8 gm/dl (11.8-15.2) L 08/05/22 04:46 Hct 33.3 % (35.5-45.6) L 08/05/22 04:46 MCV 89 fl (84-94) 08/05/22 04:46 MCH 29 pg (28-32) 08/05/22 04:46 MCHC 33 % (32-34) 08/05/22 04:46 RDW 15.8 % (13.2-15.2) H 08/05/22 04:46 Plt Count 138 K/mm3 (140-440) L 08/05/22 04:46 Lymph % (Auto) 21.7 % (13.4-35.0) 07/25/22 19:37 [place] % (Auto) 7.3 % (0.0-7.3) 07/25/22 19:37 Eos % (Auto) 0.0 % (0.0-4.3) 07/25/22 19:37 Baso % (Auto) 0.3 % (0.0-1.8) 07/25/22 19:37 Lymph # (Auto) 4.1 K/mm3 (1.2-5.4) 07/25/22 19:37 [place] # (Auto) 1.4 K/mm3 (0.0-0.8) H 07/25/22 19:37 Eos # (Auto) 0.0 K/mm3 (0.0-0.4) 07/25/22 19:37 Baso # (Auto) 0.1 K/mm3 (0.0-0.1) 07/25/22 19:37 Add Manual Diff Complete 07/27/22 03:50 Total Counted 100 07/27/22 03:50 Seg Neutrophils % 70.7 % (40.0-70.0) H 07/25/22 19:37 Seg Neuts % (Manual) 78.0 % (40.0-70.0) H 07/27/22 03:50 Band Neutrophils % 16.0 % 07/27/22 03:50 Lymphocytes % (Manual) 3.0 % (13.4-35.0) L 07/27/22 03:50 Reactive Lymphs % (Man) 0 % 07/27/22 03:50 Monocytes % (Manual) 2.0 % (0.0-7.3) 07/27/22 03:50 Eosinophils % (Manual) 0 % (0.0-4.3) 07/27/22 03:50 Basophils % (Manual) 0 % (0.0-1.8) 07/27/22 03:50 Metamyelocytes % 1.0 % 07/27/22 03:50 Myelocytes % 0 % 07/27/22 03:50 Promyelocytes % 0 % 07/27/22 03:50 Blast Cells % 0 % 07/27/22 03:50 Nucleated RBC % Not Reportable 07/27/22 03:50 Seg Neutrophils # 13.3 K/mm3 (1.8-7.7) H 07/25/22 19:37 Seg Neutrophils # Man 12.0 K/mm3 (1.8-7.7) H 07/27/22 03:50 Band Neutrophils # 2.5 K/mm3 07/27/22 03:50 Lymphocytes # (Manual) 0.5 K/mm3 (1.2-5.4) L 07/27/22 03:50 Abs React Lymphs (Man) 0.0 K/mm3 07/27/22 03:50 Monocytes # (Manual) 0.3 K/mm3 (0.0-0.8) 07/27/22 03:50 Eosinophils # (Manual) 0.0 K/mm3 (0.0-0.4) 07/27/22 03:50 Basophils # (Manual) 0.0 K/mm3 (0.0-0.1) 07/27/22 03:50 Metamyelocytes # 0.2 K/mm3 07/27/22 03:50 Myelocytes # 0.0 K/mm3 07/27/22 03:50 Promyelocytes # 0.0 K/mm3 07/27/22 03:50 Blast Cells # 0.0 K/mm3 07/27/22 03:50 WBC Morphology Not Reportable 07/27/22 03:50 Hypersegmented Neuts Not Reportable 07/27/22 03:50 Hyposegmented Neuts Not Reportable 07/27/22 03:50 Hypogranular Neuts Not Reportable 07/27/22 03:50 Smudge Cells Not Reportable 07/27/22 03:50 Toxic Granulation Not Reportable 07/27/22 03:50 Toxic Vacuolation Not Reportable 07/27/22 03:50 Dohle Bodies Not Reportable 07/27/22 03:50 Pelger-Huet Anomaly Not Reportable 07/27/22 03:50 Jay Rods Not Reportable 07/27/22 03:50 Platelet Estimate Consistent w auto 07/27/22 03:50 Clumped Platelets Not Reportable 07/27/22 03:50 Plt Clumps, EDTA Not Reportable 07/27/22 03:50 Large Platelets Not Reportable 07/27/22 03:50 Giant Platelets Not Reportable 07/27/22 03:50 Platelet Satelliting Not Reportable 07/27/22 03:50 Plt Morphology Comment Not Reportable 07/27/22 03:50 RBC Morphology Not Reportable 07/27/22 03:50 Dimorphic RBCs Not Reportable 07/27/22 03:50 Polychromasia Not Reportable 07/27/22 03:50 Hypochromasia Not Reportable 07/27/22 03:50 Poikilocytosis Not Reportable 07/27/22 03:50 Anisocytosis Not Reportable 07/27/22 03:50 Microcytosis Not Reportable 07/27/22 03:50 Macrocytosis Not Reportable 07/27/22 03:50 Spherocytes Not Reportable 07/27/22 03:50 Pappenheimer Bodies Not Reportable 07/27/22 03:50 Sickle Cells Not Reportable 07/27/22 03:50 Target Cells Not Reportable 07/27/22 03:50 Tear Drop Cells Not Reportable 07/27/22 03:50 Ovalocytes Not Reportable 07/27/22 03:50 Helmet Cells Not Reportable 07/27/22 03:50 Reynolds-Friedenswald Bodies Not Reportable 07/27/22 03:50 [place] Rings Not Reportable 07/27/22 03:50 [place] Cells Not Reportable 07/27/22 03:50 Bite Cells Not Reportable 07/27/22 03:50 Crenated Cell Not Reportable 07/27/22 03:50 Elliptocytes Not Reportable 07/27/22 03:50 Acanthocytes (Spur) Not Reportable 07/27/22 03:50 Rouleaux Not Reportable 07/27/22 03:50 Hemoglobin C Crystals Not Reportable 07/27/22 03:50 Schistocytes Not Reportable 07/27/22 03:50 Malaria parasites Not Reportable 07/27/22 03:50 [place] Bodies Not Reportable 07/27/22 03:50 Hem Pathologist Commnt No 07/27/22 03:50 PT 14.3 Sec. (12.2-14.9) 07/31/22 04:13 INR 0.97 (0.87-1.13) 07/31/22 04:13 Heparin Anti-Xa, Unfract Negative (Negative) 08/01/22 04:17 ABG pH 7.500 pH Units (7.350-7.450) H 08/03/22 03:35 ABG pCO2 26.7 mm Hg 08/03/22 03:35 ABG pO2 129.6 mm Hg (80.0-90.0) H 08/03/22 03:35 ABG HCO3 20.4 mmol/L (20.0-26.0) 08/03/22 03:35 ABG O2 Saturation 98.7 % (95.0-99.0) 08/03/22 03:35 ABG O2 Content 13.5 (0.0-44) 08/03/22 03:35 ABG Base Excess -2.0 mmol/L (-2.0-3.0) 08/03/22 03:35 ABG Hemoglobin 9.7 gm/dl (14.0-18.0) L 08/03/22 03:35 ABG Carboxyhemoglobin 1.5 % (0.0-5.0) 08/03/22 03:35 ABG Methemoglobin 0.4 % (0.0-1.5) 08/03/22 03:35 VBG pH 7.362 (7.320-7.420) 07/25/22 19:37 Oxyhemoglobin 96.8 % (95.0-99.0) 08/03/22 03:35 FiO2 30 % 08/03/22 03:35 Sodium 139 mmol/L (137-145) 08/05/22 04:46 Potassium 3.9 mmol/L (3.6-5.0) D 08/05/22 04:46 Chloride 105.8 mmol/L (98-107) 08/05/22 04:46 Carbon Dioxide 16 mmol/L (22-30) L 08/05/22 04:46 Anion Gap 21 mmol/L 08/05/22 04:46 BUN 29 mg/dL (9-20) H 08/05/22 04:46 Creatinine 1.1 mg/dL (0.8-1.3) 08/05/22 04:46 Estimated GFR > 60 ml/min 08/05/22 04:46 BUN/Creatinine Ratio 26 % 08/05/22 04:46 Glucose 179 mg/dL (75-100) H 08/05/22 04:46 POC Glucose 220 mg/dL (70-105) H 08/05/22 06:05 Hemoglobin A1c 12.3 % (4-6) H 07/27/22 12:13 Lactic Acid 9.70 mmol/L (0.7-2.0) H* 07/26/22 15:36 Calcium 6.1 mg/dL (8.4-10.2) L 08/05/22 04:46 Phosphorus 2.50 mg/dL (2.5-4.5) D 08/05/22 04:46 Magnesium 1.80 mg/dL (1.7-2.3) 08/05/22 04:46 Total Bilirubin 0.30 mg/dL (0.1-1.2) 07/27/22 03:50 AST 64 units/L (5-40) H 07/27/22 03:50 ALT 31 units/L (7-56) 07/27/22 03:50 Alkaline Phosphatase 61 units/L (35-129) 07/27/22 03:50 Ammonia 64.0 umol/L (25-60) H 07/25/22 19:37 Total Creatine Kinase 158 units/L (55-170) 07/25/22 19:37 CK-MB (CK-2) < 1.0 ng/mL (0.0-4.0) 07/25/22 19:37 CK-MB (CK-2) Rel Index 0.6 (0-4) 07/25/22 19:37 Troponin T 0.049 ng/mL (0.00-0.029) H D 07/26/22 15:36 Total Protein 4.1 g/dL (6.3-8.2) L D 07/27/22 03:50 Albumin 2.1 g/dL (3.9-5) L 07/27/22 03:50 Albumin/Globulin Ratio 1.1 % 07/27/22 03:50 Triglycerides 362 mg/dL (2-149) H 07/25/22 19:37 Cholesterol 126 mg/dL (50-199) 07/25/22 19:37 LDL Cholesterol Direct 44 mg/dL (50-130) L 07/25/22 19:37 HDL Cholesterol 34 mg/dL (40-59) L 07/25/22 19:37 Cholesterol/HDL Ratio 3.70 % 07/25/22 19:37 TSH 2.170 mlU/mL (0.270-4.200) 07/25/22 19:37 Free T4 1.18 ng/dL (0.76-1.46) 07/25/22 19:37 Urine Color Lin (Yellow) 07/26/22 08:31 Urine Turbidity Cloudy (Clear) 07/26/22 08:31 Specific [place] (Man) 1.010 (1.003-1.030) 07/26/22 08:31 Ur Protein (Man) <30 mg dl mg/dL (Negative) 07/26/22 08:31 Ur Ketones (Man) Negative (Negative) 07/26/22 08:31 Ur Nitrite (Man) Negative (Negative) 07/26/22 08:31 Ur Reducing Substances Not Reportable 07/26/22 08:31 Urine Bilirubin (Man) Negative (Negative) 07/26/22 08:31 Urine Ictotest Not Reportable 07/26/22 08:31 Leukocyte Esterase (Man) Trace (Negative) 07/26/22 08:31 Urine WBC (Auto) < 1.0 /HPF (0.0-6.0) 07/26/22 08:31 Urine RBC (Auto) 1.0 /HPF (0.0-6.0) 07/26/22 08:31 U Epithel Cells (Auto) 3.0 /HPF (0-13.0) 07/26/22 08:31 Urine RBC (Manual) 5-10 (Negative) 07/26/22 08:31 Ur Renal Epithelial Cell 3 /LPF 07/26/22 08:31 Urine Mucus Few /HPF 07/26/22 08:31 Urine Creatinine 118.4 mg/dL (0.1-20.0) H 07/26/22 18:10 Protein/Creatinin Ratio 1.23 07/26/22 18:10 Urine Sodium 108 mmol/L 07/26/22 18:10 Urine Total Protein 146 mg/dL (5-11.8) H 07/26/22 18:10 Heparin-induced Plt Ab Negative (Negative) 08/01/22 04:17 UF Heparin High Dose 0 % Release 08/01/22 04:17 SU UFH Low Dose 0.1 0 % Release 08/01/22 04:17 SU UFH Low Dose 0.5 0 % Release 08/01/22 04:17 Yañez/IV: Voiding Method Indwelling Catheter Active Medications - Current Medications Current Medications: Generic Name Dose Route Start Last Admin Trade Name Freq PRN Reason Stop Dose Admin Acetaminophen 650 mg 07/26/22 00:31 08/04/22 11:46 Acetaminophen 325 Mg Tab PO 650 mg Q4H PRN Administration Pain MILD(1-3)/Fever >100.5/LANTIGUA Acetaminophen 650 mg 07/26/22 02:04 Acetaminophen 650 Mg Rect Supp DE Q4H PRN Pain, Mild (1-3) Albuterol 2.5 mg 07/26/22 00:31 Albuterol 2.5 Mg/3 Ml Nebu IH Q3HRT PRN Shortness Of Breath Amiodarone HCl 200 mg 08/04/22 11:00 08/04/22 22:09 Amiodarone 200 Mg Tab FEEDTUBE 200 mg BID LIZZIE Administration Atorvastatin Calcium 40 mg 08/04/22 22:00 08/04/22 22:09 Atorvastatin 40 Mg Tab FEEDTUBE 40 mg QHS LIZZIE Administration Dextrose 50 ml 07/27/22 09:25 08/04/22 06:03 Dextrose 50% In Water (25gm) 50 Ml Syringe IV 50 ml Q30MIN PRN Administration Hypoglycemia Protocol Famotidine 10 mg 07/28/22 10:00 08/04/22 22:10 Famotidine 10 Mg Tab FEEDTUBE 10 mg BID LIZZIE Administration Hydrocortisone Sodium Succinate 25 mg 08/03/22 10:00 08/04/22 10:47 Hydrocortisone Sod Succ 100 Mg/2 Ml Vial IV 08/05/22 10:01 25 mg Q24HR LIZZIE Administration Insulin Human Regular 0 units 07/27/22 12:00 08/05/22 06:16 Insulin Regular, Human 100 Units/1 Ml SUB-Q 4 units Q6H LIZZIE Administration Protocol Multi-Ingred Cream/Lotion/Oil/Oint 1 applic 07/27/22 03:17 07/27/22 03:35 Mineral Oil/Petrolatum, White Ophth Oint 3.5 Gm OU 1 applic PRN PRN Administration Dry Eye(s) Nitroglycerin 0.4 mg 07/26/22 00:31 Nitroglycerin 0.4 Mg Tab Subl SL Q5M PRN Chest Pain Ondansetron HCl 4 mg 07/26/22 00:31 Ondansetron 4 Mg/2 Ml Inj IV Q8H PRN Nausea And Vomiting Sodium Bicarbonate 650 mg 08/04/22 14:00 08/04/22 19:48 Sodium Bicarbonate 650 Mg Tab FEEDTUBE 650 mg TID LIZZIE Administration Sodium Chloride 10 ml 07/26/22 10:00 08/04/22 22:10 Sodium Chloride 0.9% 10 Ml Flush Syringe IV 10 ml BID LIZZIE Administration Sodium Chloride 10 ml 07/26/22 00:31 Sodium Chloride 0.9% 10 Ml Flush Syringe IV PRN PRN LINE FLUSH Nutrition/Malnutrition Assess - Dietary Evaluation Nutrition/Malnutrition Findings: Nutrition Notes Start: 07/26/22 10:25 Freq: Status: Active Protocol: Document 07/31/22 14:58 [facility] (Rec: 07/31/22 15:04 [facility] [id number]) Nutrition Notes Initial or Follow up Reassessment Current Diagnosis Acute Kidney Injury,Diabetes, Hypertension,Respiratory Failure,Hyperlipidemia Other Pertinent Diagnosis s/p cardiac arrest, s/p DKA, acute metabolic encephalopathy Current Diet TF - Glucerna 1.2 at 45ml/hr Labs/Tests Na 146 K 3.4 BUN 53 Cr 1.6 BG 151 Pertinent Medications 40mEq KCl Height 5 ft 5 in Weight 49.8 kg [place] Body Weight (kg) 61.81 BMI 18.2 Subjective/Other Information Observed Glucerna 1.2 infusing at goal rate; pt tolerating TF. ordered 250ml water flush q4h. Pt remains on vent support; renal function improving. Percent of energy/protein needs met: 93% energy 100% pro Burn Absent Trauma Absent #1 Nutrition Diagnosis Inadequate oral intake Diagnosis Progress(for reassessment Continues documentation) Is patient on ventilator? Yes Is Patient Ambulatory and/or Out of Bed No REE-([facility]-confined to bed) [phone] Calculation Used for Recommendations [facility] Additional Notes Pro needs 0.8-1.2g/k-60g/ day Fluid needs per MD. Nutrition Intervention Nutrition Support: Continue Glucerna 1.2 at 45ml/ hr with 250ml water flush q4h until hypernatremia resolved. Kcal 1,296 Protein (gm) 65 Carbohydrates (gm) 124 Fat (gm) 65 Fluid (mL) 869 Fiber (gm) 17 Goal #1 TF tolerance Goal #2 TF to provide at least 75% energy and pro needs Follow-Up By: 08/07/22 Additional Comments F/U: stable TF, trach/PEG placement, vent status, renal function, BM
--- NOTE | 2022-08-04 13:49 | Progress Note ---
Assessment and Plan 77 y/o male with cardiac arrest, intubated, not sedated with multisystem organ failure 08/04/22: CXR in am. Will order sputum as per report, secretions have increased. Abx therapy has stopped. Trach site stable. await placement. If s pikes again, needs blood, urine and UA. 08/03/22: Await placement. Continue daily PSV. PT consult. 08/01/22: Follow up surgery recs. Continue supportive care. 07/31/22: Supportive care. Surgery consult for trach and peg. Renal function continues to improve. 07/30/22: Continue supportive measures. Family wants aggressive measures despite MRI findings so needs consult to surgery for trach and peg. Will drop steroids down to 25q8 or 50q12 Sunday. Continue volume as renal function is i mproving. needs more free water if possible. 07/29/22: Drop steroids to 50q8 starting today. CBC not checked, need to evaluate Platelets. Need to correct electrolytes as well. Family is likely go ing to want trach and peg based on earlier conversations but awaiting more family. Given recent MRI results, prognosis is very poor. 07/28/22: Hold on Volume today. Drop steroids down to 50q8 starting tomorrow. Follow up MRI. EEG results still pending. Platelets still dropping but no evidence of bleeding. Continue abx therapy. Continue feeds. Prognosis is still guarded. 07/27/22: more volume again today. Echo showed normal EF. Wean pressors for MAPs >65, follow up EEg results. Hopeful to get head CT today. Platelets dropped today, not on heparin. Could be sepsis related. If head CT negative, may need to evaluate abdomen around peg. Will start trickle feeds today and transition of insulin drip. Prognosis is still guarded. 1. IVF resusciation with LR 2. Insulin drip and continue NPO state 3. Attempt to wean pressors for MAPs greater than 65 4. Monitor urine output 5. Broaden abx therapy given current clinical state 6. Follow up echo report 7. Agree with stress dose steroids 8. No sedation 9. EEG pending Overall prognosis is guarded to poor, especially given current clinical exam CCT 31 minutes. Subjective Date of service: 08/04/22 Principal diagnosis: Hypernatremia, ARF Interval history: Spiked temp to 101 today. Was tachycardic and tachypnic. Given tylenol and has since improved. Bld cultures were not drawn Objective Vital Signs - 12hr 08/04/22 08/04/22 08/04/22 02:00 03:00 04:00 Temperature 98.2 F Pulse Rate 96 H 114 H 101 H Pulse Rate [ 112 H From Monitor] Respiratory 26 H 34 H 25 H Rate Blood Pressure 157/82 153/82 150/81 O2 Sat by Pulse 98 96 95 Oximetry O2 Sat by Pulse Oximetry [ Assessment] 08/04/22 08/04/22 08/04/22 04:40 04:53 05:00 Temperature Pulse Rate 100 H 103 H Pulse Rate [ From Monitor] Respiratory 31 H Rate Blood Pressure 148/86 154/82 O2 Sat by Pulse 96 98 Oximetry O2 Sat by Pulse 100 Oximetry [ Assessment] 08/04/22 08/04/22 08/04/22 06:00 07:00 08:00 Temperature 100.1 F H Pulse Rate 105 H 108 H 108 H Pulse Rate [ 108 H From Monitor] Respiratory 29 H 26 H 34 H Rate Blood Pressure 174/94 146/79 161/77 O2 Sat by Pulse 98 95 99 Oximetry O2 Sat by Pulse Oximetry [ Assessment] 08/04/22 08/04/22 08/04/22 08:03 09:00 10:00 Temperature Pulse Rate 113 H 108 H 99 H Pulse Rate [ From Monitor] Respiratory 38 H 21 Rate Blood Pressure 161/77 162/81 155/82 O2 Sat by Pulse 99 96 98 Oximetry O2 Sat by Pulse Oximetry [ Assessment] 08/04/22 08/04/22 08/04/22 11:00 12:00 12:32 Temperature 101.5 F H Pulse Rate 110 H 96 H 94 H Pulse Rate [ 96 H From Monitor] Respiratory 37 H 20 Rate Blood Pressure 160/81 135/73 140/69 O2 Sat by Pulse 97 95 100 Oximetry O2 Sat by Pulse Oximetry [ Assessment] 08/04/22 13:00 Temperature Pulse Rate 75 Pulse Rate [ From Monitor] Respiratory 28 H Rate Blood Pressure 108/58 O2 Sat by Pulse 95 Oximetry O2 Sat by Pulse Oximetry [ Assessment] CBC and BMP: 08/04/22 04:39 08/04/22 04:39 ABG, PT/INR, D-dimer: ABG ABG pH 7.500 pH Units (7.350-7.450) H 08/03/22 03:35 ABG pCO2 26.7 mm Hg 08/03/22 03:35 ABG pO2 129.6 mm Hg (80.0-90.0) H 08/03/22 03:35 ABG O2 Saturation 98.7 % (95.0-99.0) 08/03/22 03:35 PT/INR, D-dimer PT 14.3 Sec. (12.2-14.9) 07/31/22 04:13 INR 0.97 (0.87-1.13) 07/31/22 04:13 Abnormal lab findings: Abnormal Labs 07/25/22 07/25/22 07/25/22 19:37 19:37 19:37 WBC 18.8 H RBC 6.31 H Hgb 18.8 H Hct 57.3 H MCV MCHC RDW Plt Count [place] # (Auto) 1.4 H Seg Neutrophils % 70.7 H Seg Neuts % (Manual) Lymphocytes % (Manual) Seg Neutrophils # 13.3 H Seg Neutrophils # Man Lymphocytes # (Manual) ABG pH ABG pO2 ABG HCO3 ABG O2 Saturation ABG Base Excess ABG Hemoglobin Oxyhemoglobin Sodium 149 H Potassium Chloride 110.3 H Carbon Dioxide 18 L BUN 73 H Creatinine 3.3 H Glucose 761 H* POC Glucose Hemoglobin A1c Lactic Acid Calcium 10.6 H Phosphorus Magnesium 3.10 H AST 63 H ALT 64 H Ammonia Troponin T 0.072 H Total Protein 9.0 H Albumin Triglycerides 362 H LDL Cholesterol Direct 44 L HDL Cholesterol 34 L Urine Creatinine Urine Total Protein 07/25/22 07/25/22 07/25/22 19:37 21:08 22:10 WBC RBC Hgb Hct MCV MCHC RDW Plt Count [place] # (Auto) Seg Neutrophils % Seg Neuts % (Manual) Lymphocytes % (Manual) Seg Neutrophils # Seg Neutrophils # Man Lymphocytes # (Manual) ABG pH ABG pO2 ABG HCO3 ABG O2 Saturation ABG Base Excess ABG Hemoglobin Oxyhemoglobin Sodium 155 H Potassium Chloride 113.1 H Carbon Dioxide 14 L BUN 74 H Creatinine 3.5 H Glucose 734 H* POC Glucose Hemoglobin A1c Lactic Acid 12.70 H* Calcium Phosphorus Magnesium AST ALT Ammonia 64.0 H Troponin T Total Protein Albumin Triglycerides LDL Cholesterol Direct HDL Cholesterol Urine Creatinine Urine Total Protein 07/25/22 07/25/22 07/26/22 22:20 23:29 00:13 WBC RBC Hgb Hct MCV MCHC RDW Plt Count [place] # (Auto) Seg Neutrophils % Seg Neuts % (Manual) Lymphocytes % (Manual) Seg Neutrophils # Seg Neutrophils # Man Lymphocytes # (Manual) ABG pH 7.342 L ABG pO2 318.2 H ABG HCO3 14.4 L ABG O2 Saturation 99.5 H ABG Base Excess -9.4 L ABG Hemoglobin Oxyhemoglobin Sodium 157 H Potassium 3.1 L D Chloride 114.0 H Carbon Dioxide 21 L D BUN 72 H Creatinine 3.7 H Glucose 615 H* POC Glucose > 600 H Hemoglobin A1c Lactic Acid Calcium Phosphorus Magnesium AST ALT Ammonia Troponin T Total Protein Albumin Triglycerides LDL Cholesterol Direct HDL Cholesterol Urine Creatinine Urine Total Protein 07/26/22 07/26/22 07/26/22 00:13 00:38 00:39 WBC 21.4 H RBC 5.88 H Hgb 17.2 H Hct 55.0 H MCV MCHC 31 L RDW 16.0 H Plt Count [place] # (Auto) Seg Neutrophils % Seg Neuts % (Manual) 77.0 H Lymphocytes % (Manual) 13.0 L Seg Neutrophils # Seg Neutrophils # Man 16.5 H Lymphocytes # (Manual) ABG pH ABG pO2 ABG HCO3 ABG O2 Saturation ABG Base Excess ABG Hemoglobin Oxyhemoglobin Sodium Potassium Chloride Carbon Dioxide BUN Creatinine Glucose POC Glucose 517 H Hemoglobin A1c Lactic Acid 9.10 H* Calcium Phosphorus Magnesium AST ALT Ammonia Troponin T Total Protein Albumin Triglycerides LDL Cholesterol Direct HDL Cholesterol Urine Creatinine Urine Total Protein 07/26/22 07/26/22 07/26/22 00:39 01:32 02:28 WBC RBC Hgb Hct MCV MCHC RDW Plt Count [place] # (Auto) Seg Neutrophils % Seg Neuts % (Manual) Lymphocytes % (Manual) Seg Neutrophils # Seg Neutrophils # Man Lymphocytes # (Manual) ABG pH ABG pO2 ABG HCO3 ABG O2 Saturation ABG Base Excess ABG Hemoglobin Oxyhemoglobin Sodium Potassium Chloride Carbon Dioxide BUN Creatinine Glucose POC Glucose 460 H 237 H Hemoglobin A1c Lactic Acid Calcium Phosphorus 1.20 L D Magnesium 4.10 H AST ALT Ammonia Troponin T Total Protein Albumin Triglycerides LDL Cholesterol Direct HDL Cholesterol Urine Creatinine Urine Total Protein 07/26/22 07/26/22 07/26/22 03:03 03:07 04:11 WBC RBC Hgb Hct MCV MCHC RDW Plt Count [place] # (Auto) Seg Neutrophils % Seg Neuts % (Manual) Lymphocytes % (Manual) Seg Neutrophils # Seg Neutrophils # Man Lymphocytes # (Manual) ABG pH ABG pO2 ABG HCO3 ABG O2 Saturation ABG Base Excess ABG Hemoglobin Oxyhemoglobin Sodium Potassium Chloride Carbon Dioxide BUN Creatinine Glucose POC Glucose 433 H 370 H 338 H Hemoglobin A1c Lactic Acid Calcium Phosphorus Magnesium AST ALT Ammonia Troponin T Total Protein Albumin Triglycerides LDL Cholesterol Direct HDL Cholesterol Urine Creatinine Urine Total Protein 07/26/22 07/26/22 07/26/22 04:35 04:35 04:40 WBC RBC Hgb Hct MCV MCHC RDW Plt Count [place] # (Auto) Seg Neutrophils % Seg Neuts % (Manual) Lymphocytes % (Manual) Seg Neutrophils # Seg Neutrophils # Man Lymphocytes # (Manual) ABG pH 7.301 L ABG pO2 178.2 H ABG HCO3 11.0 L ABG O2 Saturation 99.1 H ABG Base Excess -13.3 L ABG Hemoglobin Oxyhemoglobin Sodium 162 H* Potassium 3.0 L Chloride 124.8 H Carbon Dioxide 18 L BUN 69 H Creatinine 3.9 H Glucose 385 H POC Glucose Hemoglobin A1c Lactic Acid 8.20 H* Calcium 7.8 L Phosphorus Magnesium AST ALT Ammonia Troponin T Total Protein Albumin Triglycerides LDL Cholesterol Direct HDL Cholesterol Urine Creatinine Urine Total Protein 07/26/22 07/26/22 07/26/22 05:01 06:14 06:52 WBC RBC Hgb Hct MCV MCHC RDW Plt Count [place] # (Auto) Seg Neutrophils % Seg Neuts % (Manual) Lymphocytes % (Manual) Seg Neutrophils # Seg Neutrophils # Man Lymphocytes # (Manual) ABG pH ABG pO2 ABG HCO3 ABG O2 Saturation ABG Base Excess ABG Hemoglobin Oxyhemoglobin Sodium Potassium Chloride Carbon Dioxide BUN Creatinine Glucose POC Glucose 347 H 300 H 278 H Hemoglobin A1c Lactic Acid Calcium Phosphorus Magnesium AST ALT Ammonia Troponin T Total Protein Albumin Triglycerides LDL Cholesterol Direct HDL Cholesterol Urine Creatinine Urine Total Protein 07/26/22 07/26/22 07/26/22 07:59 08:58 10:04 WBC RBC Hgb Hct MCV MCHC RDW Plt Count [place] # (Auto) Seg Neutrophils % Seg Neuts % (Manual) Lymphocytes % (Manual) Seg Neutrophils # Seg Neutrophils # Man Lymphocytes # (Manual) ABG pH ABG pO2 ABG HCO3 ABG O2 Saturation ABG Base Excess ABG Hemoglobin Oxyhemoglobin Sodium Potassium Chloride Carbon Dioxide BUN Creatinine Glucose POC Glucose 269 H 277 H 244 H Hemoglobin A1c Lactic Acid Calcium Phosphorus Magnesium AST ALT Ammonia Troponin T Total Protein Albumin Triglycerides LDL Cholesterol Direct HDL Cholesterol Urine Creatinine Urine Total Protein 07/26/22 07/26/22 07/26/22 11:03 11:53 13:08 WBC RBC Hgb Hct MCV MCHC RDW Plt Count [place] # (Auto) Seg Neutrophils % Seg Neuts % (Manual) Lymphocytes % (Manual) Seg Neutrophils # Seg Neutrophils # Man Lymphocytes # (Manual) ABG pH ABG pO2 ABG HCO3 ABG O2 Saturation ABG Base Excess ABG Hemoglobin Oxyhemoglobin Sodium Potassium Chloride Carbon Dioxide BUN Creatinine Glucose POC Glucose 253 H 213 H 194 H Hemoglobin A1c Lactic Acid Calcium Phosphorus Magnesium AST ALT Ammonia Troponin T Total Protein Albumin Triglycerides LDL Cholesterol Direct HDL Cholesterol Urine Creatinine Urine Total Protein 07/26/22 07/26/22 07/26/22 14:24 14:56 14:57 WBC RBC Hgb Hct MCV MCHC RDW Plt Count [place] # (Auto) Seg Neutrophils % Seg Neuts % (Manual) Lymphocytes % (Manual) Seg Neutrophils # Seg Neutrophils # Man Lymphocytes # (Manual) ABG pH ABG pO2 ABG HCO3 ABG O2 Saturation ABG Base Excess ABG Hemoglobin Oxyhemoglobin Sodium Potassium Chloride Carbon Dioxide BUN Creatinine Glucose POC Glucose 185 H 236 H 207 H Hemoglobin A1c Lactic Acid Calcium Phosphorus Magnesium AST ALT Ammonia Troponin T Total Protein Albumin Triglycerides LDL Cholesterol Direct HDL Cholesterol Urine Creatinine Urine Total Protein 07/26/22 07/26/22 07/26/22 15:36 15:36 15:36 WBC RBC Hgb Hct MCV MCHC RDW Plt Count [place] # (Auto) Seg Neutrophils % Seg Neuts % (Manual) Lymphocytes % (Manual) Seg Neutrophils # Seg Neutrophils # Man Lymphocytes # (Manual) ABG pH ABG pO2 ABG HCO3 ABG O2 Saturation ABG Base Excess ABG Hemoglobin Oxyhemoglobin Sodium 160 H Potassium Chloride 126.2 H Carbon Dioxide 18 L BUN 59 H Creatinine 3.2 H Glucose 227 H POC Glucose Hemoglobin A1c Lactic Acid 9.70 H* Calcium 7.1 L Phosphorus Magnesium AST ALT Ammonia Troponin T 0.049 H D Total Protein Albumin Triglycerides LDL Cholesterol Direct HDL Cholesterol Urine Creatinine Urine Total Protein 07/26/22 07/26/22 07/26/22 15:57 16:32 17:04 WBC RBC Hgb Hct MCV MCHC RDW Plt Count [place] # (Auto) Seg Neutrophils % Seg Neuts % (Manual) Lymphocytes % (Manual) Seg Neutrophils # Seg Neutrophils # Man Lymphocytes # (Manual) ABG pH ABG pO2 ABG HCO3 ABG O2 Saturation ABG Base Excess ABG Hemoglobin Oxyhemoglobin Sodium Potassium Chloride Carbon Dioxide BUN Creatinine Glucose POC Glucose 207 H 189 H 219 H Hemoglobin A1c Lactic Acid Calcium Phosphorus Magnesium AST ALT Ammonia Troponin T Total Protein Albumin Triglycerides LDL Cholesterol Direct HDL Cholesterol Urine Creatinine Urine Total Protein 07/26/22 07/26/22 07/26/22 18:00 18:10 18:52 WBC RBC Hgb Hct MCV MCHC RDW Plt Count [place] # (Auto) Seg Neutrophils % Seg Neuts % (Manual) Lymphocytes % (Manual) Seg Neutrophils # Seg Neutrophils # Man Lymphocytes # (Manual) ABG pH ABG pO2 ABG HCO3 ABG O2 Saturation ABG Base Excess ABG Hemoglobin Oxyhemoglobin Sodium Potassium Chloride Carbon Dioxide BUN Creatinine Glucose POC Glucose 197 H 194 H Hemoglobin A1c Lactic Acid Calcium Phosphorus Magnesium AST ALT Ammonia Troponin T Total Protein Albumin Triglycerides LDL Cholesterol Direct HDL Cholesterol Urine Creatinine 118.4 H Urine Total Protein 146 H 07/26/22 07/26/22 07/26/22 20:47 21:30 21:51 WBC RBC Hgb Hct MCV MCHC RDW Plt Count [place] # (Auto) Seg Neutrophils % Seg Neuts % (Manual) Lymphocytes % (Manual) Seg Neutrophils # Seg Neutrophils # Man Lymphocytes # (Manual) ABG pH ABG pO2 ABG HCO3 ABG O2 Saturation ABG Base Excess ABG Hemoglobin Oxyhemoglobin Sodium 155 H Potassium Chloride 123.5 H Carbon Dioxide 16 L BUN 53 H Creatinine 2.9 H Glucose 185 H POC Glucose 134 H 124 H Hemoglobin A1c Lactic Acid Calcium 7.0 L Phosphorus Magnesium AST ALT Ammonia Troponin T Total Protein Albumin Triglycerides LDL Cholesterol Direct HDL Cholesterol Urine Creatinine Urine Total Protein 07/26/22 07/26/22 07/27/22 22:47 23:52 00:45 WBC RBC Hgb Hct MCV MCHC RDW Plt Count [place] # (Auto) Seg Neutrophils % Seg Neuts % (Manual) Lymphocytes % (Manual) Seg Neutrophils # Seg Neutrophils # Man Lymphocytes # (Manual) ABG pH ABG pO2 ABG HCO3 ABG O2 Saturation ABG Base Excess ABG Hemoglobin Oxyhemoglobin Sodium 155 H Potassium Chloride 124.2 H Carbon Dioxide 19 L BUN 53 H Creatinine 2.5 H Glucose 168 H POC Glucose 138 H 150 H Hemoglobin A1c Lactic Acid Calcium 6.7 L Phosphorus Magnesium AST ALT Ammonia Troponin T Total Protein Albumin Triglycerides LDL Cholesterol Direct HDL Cholesterol Urine Creatinine Urine Total Protein 07/27/22 07/27/22 07/27/22 00:58 02:45 03:50 WBC 15.4 H RBC Hgb Hct MCV MCHC RDW 15.3 H Plt Count 60 L [place] # (Auto) Seg Neutrophils % Seg Neuts % (Manual) 78.0 H Lymphocytes % (Manual) 3.0 L Seg Neutrophils # Seg Neutrophils # Man 12.0 H Lymphocytes # (Manual) 0.5 L ABG pH ABG pO2 ABG HCO3 ABG O2 Saturation ABG Base Excess ABG Hemoglobin Oxyhemoglobin Sodium Potassium Chloride Carbon Dioxide BUN Creatinine Glucose POC Glucose 153 H 150 H Hemoglobin A1c Lactic Acid Calcium Phosphorus Magnesium AST ALT Ammonia Troponin T Total Protein Albumin Triglycerides LDL Cholesterol Direct HDL Cholesterol Urine Creatinine Urine Total Protein 07/27/22 07/27/22 07/27/22 03:50 03:55 04:57 WBC RBC Hgb Hct MCV MCHC RDW Plt Count [place] # (Auto) Seg Neutrophils % Seg Neuts % (Manual) Lymphocytes % (Manual) Seg Neutrophils # Seg Neutrophils # Man Lymphocytes # (Manual) ABG pH ABG pO2 110.1 H ABG HCO3 13.3 L ABG O2 Saturation ABG Base Excess -9.0 L ABG Hemoglobin 13.1 L Oxyhemoglobin Sodium 154 H Potassium Chloride 123.0 H Carbon Dioxide 19 L BUN 55 H Creatinine 2.8 H Glucose 153 H POC Glucose 112 H Hemoglobin A1c Lactic Acid Calcium 6.8 L Phosphorus 1.30 L Magnesium AST 64 H ALT Ammonia Troponin T Total Protein 4.1 L D Albumin 2.1 L Triglycerides LDL Cholesterol Direct HDL Cholesterol Urine Creatinine Urine Total Protein 07/27/22 07/27/22 07/27/22 08:22 09:30 10:49 WBC RBC Hgb Hct MCV MCHC RDW Plt Count [place] # (Auto) Seg Neutrophils % Seg Neuts % (Manual) Lymphocytes % (Manual) Seg Neutrophils # Seg Neutrophils # Man Lymphocytes # (Manual) ABG pH ABG pO2 ABG HCO3 ABG O2 Saturation ABG Base Excess ABG Hemoglobin Oxyhemoglobin Sodium Potassium Chloride Carbon Dioxide BUN Creatinine Glucose POC Glucose 146 H 153 H 163 H Hemoglobin A1c Lactic Acid Calcium Phosphorus Magnesium AST ALT Ammonia Troponin T Total Protein Albumin Triglycerides LDL Cholesterol Direct HDL Cholesterol Urine Creatinine Urine Total Protein 07/27/22 07/27/22 07/27/22 12:13 12:44 17:17 WBC RBC Hgb Hct MCV MCHC RDW Plt Count [place] # (Auto) Seg Neutrophils % Seg Neuts % (Manual) Lymphocytes % (Manual) Seg Neutrophils # Seg Neutrophils # Man Lymphocytes # (Manual) ABG pH ABG pO2 ABG HCO3 ABG O2 Saturation ABG Base Excess ABG Hemoglobin Oxyhemoglobin Sodium Potassium Chloride Carbon Dioxide BUN Creatinine Glucose POC Glucose 190 H 287 H Hemoglobin A1c 12.3 H Lactic Acid Calcium Phosphorus Magnesium AST ALT Ammonia Troponin T Total Protein Albumin Triglycerides LDL Cholesterol Direct HDL Cholesterol Urine Creatinine Urine Total Protein 07/28/22 07/28/22 07/28/22 00:22 03:58 04:05 WBC RBC Hgb Hct MCV MCHC RDW Plt Count [place] # (Auto) Seg Neutrophils % Seg Neuts % (Manual) Lymphocytes % (Manual) Seg Neutrophils # Seg Neutrophils # Man Lymphocytes # (Manual) ABG pH ABG pO2 171.2 H ABG HCO3 12.3 L ABG O2 Saturation 99.2 H ABG Base Excess -9.7 L ABG Hemoglobin 10.9 L Oxyhemoglobin Sodium 148 H Potassium Chloride 117.0 H Carbon Dioxide 16 L BUN 74 H Creatinine 3.2 H Glucose 471 H POC Glucose 379 H Hemoglobin A1c Lactic Acid Calcium 6.2 L Phosphorus Magnesium AST ALT Ammonia Troponin T Total Protein Albumin Triglycerides LDL Cholesterol Direct HDL Cholesterol Urine Creatinine Urine Total Protein 07/28/22 07/28/22 07/28/22 04:05 05:36 12:50 WBC 13.9 H RBC Hgb 11.2 L Hct MCV MCHC 31 L RDW 15.9 H Plt Count 48 L [place] # (Auto) Seg Neutrophils % Seg Neuts % (Manual) Lymphocytes % (Manual) Seg Neutrophils # Seg Neutrophils # Man Lymphocytes # (Manual) ABG pH ABG pO2 ABG HCO3 ABG O2 Saturation ABG Base Excess ABG Hemoglobin Oxyhemoglobin Sodium Potassium Chloride Carbon Dioxide BUN Creatinine Glucose POC Glucose 390 H 399 H Hemoglobin A1c Lactic Acid Calcium Phosphorus Magnesium AST ALT Ammonia Troponin T Total Protein Albumin Triglycerides LDL Cholesterol Direct HDL Cholesterol Urine Creatinine Urine Total Protein 07/28/22 07/28/22 07/28/22 17:27 18:16 23:31 WBC RBC Hgb Hct MCV MCHC RDW Plt Count [place] # (Auto) Seg Neutrophils % Seg Neuts % (Manual) Lymphocytes % (Manual) Seg Neutrophils # Seg Neutrophils # Man Lymphocytes # (Manual) ABG pH ABG pO2 ABG HCO3 ABG O2 Saturation ABG Base Excess ABG Hemoglobin Oxyhemoglobin Sodium Potassium Chloride Carbon Dioxide BUN Creatinine Glucose POC Glucose 434 H 331 H Hemoglobin A1c Lactic Acid Calcium Phosphorus 2.00 L D Magnesium AST ALT Ammonia Troponin T Total Protein Albumin Triglycerides LDL Cholesterol Direct HDL Cholesterol Urine Creatinine Urine Total Protein 07/29/22 07/29/22 07/29/22 04:47 05:30 06:10 WBC RBC Hgb Hct MCV MCHC RDW Plt Count [place] # (Auto) Seg Neutrophils % Seg Neuts % (Manual) Lymphocytes % (Manual) Seg Neutrophils # Seg Neutrophils # Man Lymphocytes # (Manual) ABG pH 7.498 H ABG pO2 166.4 H ABG HCO3 16.2 L ABG O2 Saturation 99.1 H ABG Base Excess -5.4 L ABG Hemoglobin 10.7 L Oxyhemoglobin Sodium 151 H Potassium 3.5 L D Chloride 120.4 H Carbon Dioxide 17 L BUN 80 H Creatinine 2.8 H Glucose 303 H POC Glucose 261 H Hemoglobin A1c Lactic Acid Calcium 6.9 L Phosphorus Magnesium AST ALT Ammonia Troponin T Total Protein Albumin Triglycerides LDL Cholesterol Direct HDL Cholesterol Urine Creatinine Urine Total Protein 07/29/22 07/29/22 07/29/22 09:18 12:31 13:40 WBC 16.0 H RBC Hgb Hct MCV 96 H MCHC 30 L RDW 17.6 H Plt Count 84 L [place] # (Auto) Seg Neutrophils % Seg Neuts % (Manual) Lymphocytes % (Manual) Seg Neutrophils # Seg Neutrophils # Man Lymphocytes # (Manual) ABG pH ABG pO2 ABG HCO3 ABG O2 Saturation ABG Base Excess ABG Hemoglobin Oxyhemoglobin Sodium Potassium Chloride Carbon Dioxide BUN Creatinine Glucose POC Glucose 287 H 291 H Hemoglobin A1c Lactic Acid Calcium Phosphorus Magnesium AST ALT Ammonia Troponin T Total Protein Albumin Triglycerides LDL Cholesterol Direct HDL Cholesterol Urine Creatinine Urine Total Protein 07/29/22 07/29/22 07/30/22 17:19 23:57 04:25 WBC RBC Hgb Hct MCV MCHC RDW Plt Count [place] # (Auto) Seg Neutrophils % Seg Neuts % (Manual) Lymphocytes % (Manual) Seg Neutrophils # Seg Neutrophils # Man Lymphocytes # (Manual) ABG pH 7.461 H ABG pO2 123.0 H ABG HCO3 18.6 L ABG O2 Saturation ABG Base Excess -4.1 L ABG Hemoglobin 10.8 L Oxyhemoglobin Sodium Potassium Chloride Carbon Dioxide BUN Creatinine Glucose POC Glucose 272 H 205 H Hemoglobin A1c Lactic Acid Calcium Phosphorus Magnesium AST ALT Ammonia Troponin T Total Protein Albumin Triglycerides LDL Cholesterol Direct HDL Cholesterol Urine Creatinine Urine Total Protein 07/30/22 07/30/22 07/30/22 04:42 04:42 05:17 WBC RBC Hgb 11.1 L Hct 33.1 L D MCV MCHC RDW 16.0 H Plt Count 34 L [place] # (Auto) Seg Neutrophils % Seg Neuts % (Manual) Lymphocytes % (Manual) Seg Neutrophils # Seg Neutrophils # Man Lymphocytes # (Manual) ABG pH ABG pO2 ABG HCO3 ABG O2 Saturation ABG Base Excess ABG Hemoglobin Oxyhemoglobin Sodium 148 H Potassium 3.2 L Chloride 116.7 H Carbon Dioxide 18 L BUN 69 H Creatinine 2.0 H Glucose 197 H POC Glucose 185 H Hemoglobin A1c Lactic Acid Calcium 6.8 L Phosphorus 1.70 L Magnesium AST ALT Ammonia Troponin T Total Protein Albumin Triglycerides LDL Cholesterol Direct HDL Cholesterol Urine Creatinine Urine Total Protein 07/30/22 07/30/22 07/30/22 11:41 16:14 23:07 WBC RBC Hgb Hct MCV MCHC RDW Plt Count [place] # (Auto) Seg Neutrophils % Seg Neuts % (Manual) Lymphocytes % (Manual) Seg Neutrophils # Seg Neutrophils # Man Lymphocytes # (Manual) ABG pH ABG pO2 ABG HCO3 ABG O2 Saturation ABG Base Excess ABG Hemoglobin Oxyhemoglobin Sodium Potassium Chloride Carbon Dioxide BUN Creatinine Glucose POC Glucose 199 H 173 H 159 H Hemoglobin A1c Lactic Acid Calcium Phosphorus Magnesium AST ALT Ammonia Troponin T Total Protein Albumin Triglycerides LDL Cholesterol Direct HDL Cholesterol Urine Creatinine Urine Total Protein 07/31/22 07/31/22 07/31/22 03:25 04:00 04:13 WBC RBC Hgb 10.5 L Hct 32.8 L MCV MCHC RDW 15.3 H Plt Count 55 L [place] # (Auto) Seg Neutrophils % Seg Neuts % (Manual) Lymphocytes % (Manual) Seg Neutrophils # Seg Neutrophils # Man Lymphocytes # (Manual) ABG pH 7.513 H ABG pO2 64.1 L ABG HCO3 ABG O2 Saturation ABG Base Excess ABG Hemoglobin 10.5 L Oxyhemoglobin 93.8 L Sodium 146 H Potassium 3.4 L Chloride 112.5 H Carbon Dioxide 21 L BUN 53 H Creatinine 1.6 H Glucose 151 H POC Glucose Hemoglobin A1c Lactic Acid Calcium 6.4 L Phosphorus Magnesium AST ALT Ammonia Troponin T Total Protein Albumin Triglycerides LDL Cholesterol Direct HDL Cholesterol Urine Creatinine Urine Total Protein 07/31/22 07/31/22 07/31/22 05:39 11:08 16:11 WBC RBC Hgb Hct MCV MCHC RDW Plt Count [place] # (Auto) Seg Neutrophils % Seg Neuts % (Manual) Lymphocytes % (Manual) Seg Neutrophils # Seg Neutrophils # Man Lymphocytes # (Manual) ABG pH ABG pO2 ABG HCO3 ABG O2 Saturation ABG Base Excess ABG Hemoglobin Oxyhemoglobin Sodium Potassium Chloride Carbon Dioxide BUN Creatinine Glucose POC Glucose 155 H 132 H 150 H Hemoglobin A1c Lactic Acid Calcium Phosphorus Magnesium AST ALT Ammonia Troponin T Total Protein Albumin Triglycerides LDL Cholesterol Direct HDL Cholesterol Urine Creatinine Urine Total Protein 07/31/22 08/01/22 08/01/22 23:48 04:17 04:17 WBC RBC 3.62 L Hgb 10.6 L Hct 31.8 L MCV MCHC RDW 15.7 H Plt Count 90 L [place] # (Auto) Seg Neutrophils % Seg Neuts % (Manual) Lymphocytes % (Manual) Seg Neutrophils # Seg Neutrophils # Man Lymphocytes # (Manual) ABG pH ABG pO2 ABG HCO3 ABG O2 Saturation ABG Base Excess ABG Hemoglobin Oxyhemoglobin Sodium 147 H Potassium 3.3 L Chloride 113.7 H Carbon Dioxide BUN 46 H Creatinine Glucose 141 H POC Glucose 133 H Hemoglobin A1c Lactic Acid Calcium 6.0 L Phosphorus 2.00 L Magnesium 1.50 L AST ALT Ammonia Troponin T Total Protein Albumin Triglycerides LDL Cholesterol Direct HDL Cholesterol Urine Creatinine Urine Total Protein 08/01/22 08/01/22 08/01/22 05:46 11:17 17:44 WBC RBC Hgb Hct MCV MCHC RDW Plt Count [place] # (Auto) Seg Neutrophils % Seg Neuts % (Manual) Lymphocytes % (Manual) Seg Neutrophils # Seg Neutrophils # Man Lymphocytes # (Manual) ABG pH ABG pO2 ABG HCO3 ABG O2 Saturation ABG Base Excess ABG Hemoglobin Oxyhemoglobin Sodium Potassium Chloride Carbon Dioxide BUN Creatinine Glucose POC Glucose 116 H 190 H 179 H Hemoglobin A1c Lactic Acid Calcium Phosphorus Magnesium AST ALT Ammonia Troponin T Total Protein Albumin Triglycerides LDL Cholesterol Direct HDL Cholesterol Urine Creatinine Urine Total Protein 08/01/22 08/02/22 08/02/22 23:34 04:48 04:48 WBC RBC 3.61 L Hgb 10.2 L Hct 31.9 L MCV MCHC RDW 15.8 H Plt Count 130 L [place] # (Auto) Seg Neutrophils % Seg Neuts % (Manual) Lymphocytes % (Manual) Seg Neutrophils # Seg Neutrophils # Man Lymphocytes # (Manual) ABG pH ABG pO2 ABG HCO3 ABG O2 Saturation ABG Base Excess ABG Hemoglobin Oxyhemoglobin Sodium 148 H Potassium 3.4 L Chloride 113.1 H Carbon Dioxide 16 L BUN 45 H Creatinine Glucose 213 H POC Glucose 193 H Hemoglobin A1c Lactic Acid Calcium 5.9 L* Phosphorus 2.30 L Magnesium AST ALT Ammonia Troponin T Total Protein Albumin Triglycerides LDL Cholesterol Direct HDL Cholesterol Urine Creatinine Urine Total Protein 08/02/22 08/02/22 08/02/22 05:38 23:04 23:30 WBC RBC Hgb Hct MCV MCHC RDW Plt Count [place] # (Auto) Seg Neutrophils % Seg Neuts % (Manual) Lymphocytes % (Manual) Seg Neutrophils # Seg Neutrophils # Man Lymphocytes # (Manual) ABG pH ABG pO2 ABG HCO3 ABG O2 Saturation ABG Base Excess ABG Hemoglobin Oxyhemoglobin Sodium Potassium Chloride Carbon Dioxide BUN Creatinine Glucose POC Glucose 193 H 65 L 111 H Hemoglobin A1c Lactic Acid Calcium Phosphorus Magnesium AST ALT Ammonia Troponin T Total Protein Albumin Triglycerides LDL Cholesterol Direct HDL Cholesterol Urine Creatinine Urine Total Protein 08/03/22 08/03/22 08/03/22 03:35 04:40 04:40 WBC 12.7 H RBC 3.36 L Hgb 9.5 L Hct 29.8 L MCV MCHC RDW 15.7 H Plt Count [place] # (Auto) Seg Neutrophils % Seg Neuts % (Manual) Lymphocytes % (Manual) Seg Neutrophils # Seg Neutrophils # Man Lymphocytes # (Manual) ABG pH 7.500 H ABG pO2 129.6 H ABG HCO3 ABG O2 Saturation ABG Base Excess ABG Hemoglobin 9.7 L Oxyhemoglobin Sodium Potassium 3.3 L Chloride 107.9 H Carbon Dioxide 21 L BUN 37 H Creatinine Glucose 111 H POC Glucose Hemoglobin A1c Lactic Acid Calcium 5.5 L* Phosphorus Magnesium 1.60 L AST ALT Ammonia Troponin T Total Protein Albumin Triglycerides LDL Cholesterol Direct HDL Cholesterol Urine Creatinine Urine Total Protein 08/03/22 08/03/22 08/04/22 05:24 17:18 00:17 WBC RBC Hgb Hct MCV MCHC RDW Plt Count [place] # (Auto) Seg Neutrophils % Seg Neuts % (Manual) Lymphocytes % (Manual) Seg Neutrophils # Seg Neutrophils # Man Lymphocytes # (Manual) ABG pH ABG pO2 ABG HCO3 ABG O2 Saturation ABG Base Excess ABG Hemoglobin Oxyhemoglobin Sodium Potassium Chloride Carbon Dioxide BUN Creatinine Glucose POC Glucose 115 H 111 H 64 L Hemoglobin A1c Lactic Acid Calcium Phosphorus Magnesium AST ALT Ammonia Troponin T Total Protein Albumin Triglycerides LDL Cholesterol Direct HDL Cholesterol Urine Creatinine Urine Total Protein 08/04/22 08/04/22 08/04/22 04:39 04:39 05:36 WBC 14.2 H RBC 3.61 L Hgb 10.3 L Hct 31.2 L MCV MCHC RDW 15.4 H Plt Count [place] # (Auto) Seg Neutrophils % Seg Neuts % (Manual) Lymphocytes % (Manual) Seg Neutrophils # Seg Neutrophils # Man Lymphocytes # (Manual) ABG pH ABG pO2 ABG HCO3 ABG O2 Saturation ABG Base Excess ABG Hemoglobin Oxyhemoglobin Sodium Potassium 3.1 L Chloride Carbon Dioxide 18 L BUN 30 H Creatinine Glucose 68 L POC Glucose 68 L Hemoglobin A1c Lactic Acid Calcium 6.1 L Phosphorus 2.00 L D Magnesium AST ALT Ammonia Troponin T Total Protein Albumin Triglycerides LDL Cholesterol Direct HDL Cholesterol Urine Creatinine Urine Total Protein 08/04/22 06:32 WBC RBC Hgb Hct MCV MCHC RDW Plt Count [place] # (Auto) Seg Neutrophils % Seg Neuts % (Manual) Lymphocytes % (Manual) Seg Neutrophils # Seg Neutrophils # Man Lymphocytes # (Manual) ABG pH ABG pO2 ABG HCO3 ABG O2 Saturation ABG Base Excess ABG Hemoglobin Oxyhemoglobin Sodium Potassium Chloride Carbon Dioxide BUN Creatinine Glucose POC Glucose 110 H Hemoglobin A1c Lactic Acid Calcium Phosphorus Magnesium AST ALT Ammonia Troponin T Total Protein Albumin Triglycerides LDL Cholesterol Direct HDL Cholesterol Urine Creatinine Urine Total Protein
[2022-08-04] MEDS: SODIUM BICARBONATE 650 MG TAB FEEDTUBE SCH ×2 (14:53→19:48)
[2022-08-05] MEDS: INSULIN REGULAR, HUMAN 100 UNITS/1 ML SUB-Q SCH ×5 (01:04→23:47)
[2022-08-05] MEDS: FREE WATER PO SCH ×3 (02:03→10:35)
--- NOTE | 2022-08-05 04:54 | XRay Report ---
CHEST 1 VIEW INDICATION / CLINICAL INFORMATION: Fever. COMPARISON: 08/02/2022 FINDINGS: SUPPORT DEVICES: Tracheostomy tube remains in stable and satisfactory position. HEART / MEDIASTINUM: No significant abnormality. LUNGS / PLEURA: There is been interval development of pulmonary opacities in both lung bases with laury earance very suggestive for bibasilar pneumonia. No associated parapneumonic effusions. No pneumothor ax. ADDITIONAL FINDINGS: No significant additional findings. IMPRESSION: 1. Developing bibasilar pulmonary opacities worrisome for bibasilar pneumonia. Signer Name: María Irby MD Signed: 08/05/2022 4:50 AM Workstation Name: [id number]
[2022-08-05 06:19] LABS: Hematocrit 33.3 % (35.5-45.6); Hemoglobin 10.8 gm/dl (11.8-15.2); Mean Corpuscular HGB Conc 33 % (32-34); Mean Corpuscular Volume 89 fl (84-94); Red Blood Count 3.76 M/mm3 (3.65-5.03); Red Cell Distribution Width 15.8 % (13.2-15.2)
[2022-08-05 06:21] LABS: BUN/Creatinine Ratio 26; Blood Urea Nitrogen 29 mg/dL (9-20); Calcium 6.1 mg/dL (8.4-10.2); Hemolysis Index 30; Platelet Count 138 K/mm3 (140-440)
[2022-08-05] MEDS: FAMOTIDINE 10 MG TAB FEEDTUBE SCH ×2 (09:32→21:13)
[2022-08-05] MEDS: AMIODARONE 200 MG TAB FEEDTUBE SCH ×2 (09:32→21:13)
[2022-08-05] MEDS: SODIUM BICARBONATE 650 MG TAB FEEDTUBE SCH ×3 (09:32→21:13)
[2022-08-05] MEDS: ACETAMINOPHEN 325 MG TAB PO PRN (09:32)
[2022-08-05] MEDS: HYDROCORTISONE SOD SUCC 100 MG/2 ML VIAL IV SCH (09:33)
--- NOTE | 2022-08-05 11:27 | Progress Note ---
<DENNY ARNOLD - Last Filed: 08/05/22 15:18> Assessment and Plan Assessment and plan: This is a 77-year-old male from a SNF facility with known past medical history of DM, paroxysmal atrial fibrillation, HTN, and CVA (2020) initially presented with AMS and Hyperglycemia. While in the ED, patient became obtunded with hyp oxia and was intubated for airway protection. Post intubation patient PEA arrested and ROSC was achieved after approximately 13 minutes. Hospital Course to Date: 07/26: Patient is on any sedation, very sluggish pupillary response, no cough/gag noted, no seizure activity. Neurology recs repeat CT head without contrast or MRI brain without contrast when clinically stable. Patient also had a EEG completed today. Patient is currently maxed on Levophed and vasopressin. Given several LR boluses today. Antibiotics broadened and stress dose steroids added. 07/27: Weaning pressors, phosphorus repleted, SSI and long-acting insulin initiated, tube feeding initiated. Patient now has a hypoactive cough/gag. CT head pending. LR bolus. Thrombocytopenia noted. Cardiology would like to start heparin drip due to atrial fibrillation however would like neurology input prior to. 07/28: Patient remains off of vasopressors, patient had MRI today. Worsening renal function noted. Cardiology will hold off amiodarone due to thrombocytopenia. No acute events reported overnight. 07/29: I had an extensive conversation with son and at bedside to with the help of an automotive parts interpreter through the employment coach line. Explained thoroughly of presentation to the ED from documentation, cardiac arrest, CT head and MRI brain findings. They are still electing to continue aggressive care and would like hospital assistance with getting a visa for youngest son to come to the [facility] [place] from [place]. manager student services is aware of request. Steroid taper started. CBC pending. Will be repleted. Hypernatremia improving. 07/30: LR bolus, renal function is improved, thrombocytopenia worse. Likely consult surgery for trach/peg as per family requests to continue care. No acute events overnight. 07/31: Patient's mentation is unchanged. Remains on low vent setting. D/w [facility] general surgery consulted for possible trach and PEG. Renal function is improving, still hypenatremic, continue FWF per Nephrology. K repleted, continue to - Monitor and replace electrolytes as needed. Patient remains in SR on the monitor, VSS. Amiodarone gtt transitioned to PO amio per Cardio. 08/01: Condition unchanged, remains stable on low vent setting. Renal function continue to improve with persistent hypernatremia, continue FWF per Nephro. General Surgery recommendations noted. D/w General surgery, plan for possible trach and PEG exchange tomorrow or . 08/02: Remains stable on low vent settings. NPO since after midnight for possible trach/PEG today by General Surgery. Patient remains hypernatremic and due to NPO status, FWF was held. Will initiated low dose D5W gtt for now. And also to prevent hypoglycemia while NPO, patient is on Lantus BID. Currently on steroids taper, will hold tonight does and reduce Lantus to Qhs starting tomorrow. Close monitoring of BG and electrolytes. Nephrology is also following. 08/03: S/p trach and PEG exchange. Remains stable on the vent with no complications. Tolerating TF and also Tolerated 2hrs of PSV trial this am. Continue to taper IV steroids, qhs Lantus adjusted to avoid hypoglycemia. Hypernatremia improved, continue FWF per Nephro. Possible LTAC placement, case management to arrange. 08/04: ABRAM overnight. Sodium normalized this morning, electrolytes repleted, continue to monitor and replace electrolytes as needed. Nephrology is also following. Hypoglycemic overnight, TF not yet at goal, will hold Lantus for now. Continue daily PSV trial as tolerated. Possible LTAC placement, case management to arrange. 08/05: Now with thick secretions orally and via ETT, with persistent fevers. This am CXR suggesting possible developing lower lobe PNA. VSS. Will panculture and initiate empiric IV abx- Cefepine. Check CRP and procal. Remove Yañez catheter and follow Yañez removal protocol. ID was also consulted for further recs. TF is now at goal, hyperglycemic today, will resume qhs Lantus. Hyponatremia resolved, FWF adjusted. Neuro: Acute metabolic encephalopathy, hepatic encephalopathy, r/o ALEC and subclinical status epilepticus, h/o CVA (2019) -Sluggish pupils, no cough/gag, periodic spontaneous respiration -Neurology consulted, appreciate recommendations -Initial CT head with no acute abnormality -Repeat CT head without contrast of preferably MRI brain without contrast when clinically stable -EEG completed -Per neurology aim for euglycemia and permissive hypertension for now -Ammonia 64 -MRI brain shows diffuse diffusion abnormality involving cerebral and cerebellum compatible with diffuse hypoxia given the patient's history, interval evolving of 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 Cardiac: S/p cardiac arrest, A. fib RVR, h/o hypertension, paroxysmal atrial fibrillation, hyperlipidemia -Patient suffered cardiac arrest on 07/25 in the ED and then was noted to be in A. fib with RVR -Amiodarone PO -Cardiology consulted, appreciate recommendations -Blood pressure monitoring per protocol -S/p vasopressor support with Levophed and vasopressin -MAP goal greater than 65 -Echocardiogram shows EF 50 to 60%, no pericardial effusion -Lipitor Respiratory: Acute hypoxic respiratory failure -CCM consulted, appreciate recommendations -Intubated on 07/25 with a 8.00 ETT in the ED -08/02 s/p Trach and PEG exchange -A.m. vent settings: PRVC-28%,6,16,400 -See RT notes for titration -A.m. ABG and CXR noted -VAP bundle -SPO2 monitoring GI: Protein calorie malnutrition -Enteral Nutrition initiated -08/02 S/p PEG-TUbe placement -NTR consult for tube feeding -PPI : Hypernatremia, metabolic acidosis, acute kidney injury likely secondary to vasomotor nephropathy, hypokalemia, hypophosphatemia -S/p 4 L LR bolus -Nephrology consulted, appreciate recommendations -Serum creatinine 03/08/2020 was 1.3, Scr. back to baseline at 1.3 today -Monitor intake and output -Renally dose medications -Avoid nephrotoxic medications -Renal ultrasound noted -KPhos IV -Trend BMP ID: Sepsis, Klebsiella pneumonia -Hypotension, acute kidney injury, acute respiratory failure, lactic acidosis -Antibiotic completed IV abx course-cefepime -Febrile today, will panculture, check CRP and procal -Cefepine IV abx initiated -ID consulted -f/u blood culture -Monitor WBC and temperature curve Endo: h/o DM s/p DKA -Presented with anion gap of 21, glucose of 761, VBG 7.362 -s/p Insulin drip -Accu-Cheks q6hr -SSI -Long-acting insulin when able -Hemaglobin A1C 12.3 Heme: Thrombocytopenia -Dropped in plt -Hematology consulted -HIT panel negative -Trend CBC -Transfuse hemoglobin less than 7 -SCDs to BLE while in bed The high probability of a clinically significant, sudden or life threatening deterioration of the [multi] system(s) required my full and direct attention, intervention and personal management. The aggregate critical care time was [60] minutes. This time is in addition to time spent performing reported procedures but includes the following: [x] Data Review and interpretation [x] Patient assessment and monitoring of vital signs [x] Documentation [x] Medication orders and management Disposition Plan: ICU Total Time Spent with Patient (Minutes): 60 History Interval history: Patient seen and examined at the bedside. Mentation unchanged, remains on the vent. Febrile this am, TMAX 101.6. Copious and thick secretion from ETT is reported. ST on the monitor this am, VSS. Hospitalist Physical - Physical exam Narrative exam: General appearance: Present: other (Trached, on the vent, and unresponsive) - EENT Eyes: Present: irregular pupil, mydriasis - Respiratory Respiratory effort: normal Respiratory: bilateral: rhonchi - Cardiovascular Rhythm: regular Heart Sounds: Present: S1 & S2 - Extremities Extremities: no ischemia, pulses intact, pulses symmetrical Extremity abnormal: edema - Peripheral Assessment Generalized Edema Type: Non-pitting Edema Degree: 2+ Capillary Refill: < 3 seconds Skin Temperature: Warm Peripheral Pulses: within normal limits - Abdominal General gastrointestinal: soft, non-distended, normal bowel sounds - Integumentary Integumentary: Present: warm, dry - Psychiatric Psychiatric: other (on the vent and unresponsive) - Neurologic Neurologic: other (On the vent and unresponsive) - Allied Health Allied health notes reviewed: nursing, case management - Constitutional Vitals: Temp Pulse Resp BP Pulse Ox 101.6 F H 99 H 41 H 151/77 94 08/05/22 08:00 08/05/22 10:00 08/05/22 10:00 08/05/22 10:00 08/05/22 10:00 HEART Score - HEART Score Troponin: Troponin T 0.049 ng/mL (0.00-0.029) H D 07/26/22 15:36 Results - Labs CBC & Chem 7: 08/05/22 04:46 08/05/22 04:46 Labs: Laboratory Last Values WBC 12.5 K/mm3 (4.5-11.0) H 08/05/22 04:46 RBC 3.76 M/mm3 (3.65-5.03) 08/05/22 04:46 Hgb 10.8 gm/dl (11.8-15.2) L 08/05/22 04:46 Hct 33.3 % (35.5-45.6) L 08/05/22 04:46 MCV 89 fl (84-94) 08/05/22 04:46 MCH 29 pg (28-32) 08/05/22 04:46 MCHC 33 % (32-34) 08/05/22 04:46 RDW 15.8 % (13.2-15.2) H 08/05/22 04:46 Plt Count 138 K/mm3 (140-440) L 08/05/22 04:46 Lymph % (Auto) 21.7 % (13.4-35.0) 07/25/22 19:37 Harris % (Auto) 7.3 % (0.0-7.3) 07/25/22 19:37 Eos % (Auto) 0.0 % (0.0-4.3) 07/25/22 19:37 Baso % (Auto) 0.3 % (0.0-1.8) 07/25/22 19:37 Lymph # (Auto) 4.1 K/mm3 (1.2-5.4) 07/25/22 19:37 Harris # (Auto) 1.4 K/mm3 (0.0-0.8) H 07/25/22 19:37 Eos # (Auto) 0.0 K/mm3 (0.0-0.4) 07/25/22 19:37 Baso # (Auto) 0.1 K/mm3 (0.0-0.1) 07/25/22 19:37 Add Manual Diff Complete 07/27/22 03:50 Total Counted 100 07/27/22 03:50 Seg Neutrophils % 70.7 % (40.0-70.0) H 07/25/22 19:37 Seg Neuts % (Manual) 78.0 % (40.0-70.0) H 07/27/22 03:50 Band Neutrophils % 16.0 % 07/27/22 03:50 Lymphocytes % (Manual) 3.0 % (13.4-35.0) L 07/27/22 03:50 Reactive Lymphs % (Man) 0 % 07/27/22 03:50 Monocytes % (Manual) 2.0 % (0.0-7.3) 07/27/22 03:50 Eosinophils % (Manual) 0 % (0.0-4.3) 07/27/22 03:50 Basophils % (Manual) 0 % (0.0-1.8) 07/27/22 03:50 Metamyelocytes % 1.0 % 07/27/22 03:50 Myelocytes % 0 % 07/27/22 03:50 Promyelocytes % 0 % 07/27/22 03:50 Blast Cells % 0 % 07/27/22 03:50 Nucleated RBC % Not Reportable 07/27/22 03:50 Seg Neutrophils # 13.3 K/mm3 (1.8-7.7) H 07/25/22 19:37 Seg Neutrophils # Man 12.0 K/mm3 (1.8-7.7) H 07/27/22 03:50 Band Neutrophils # 2.5 K/mm3 07/27/22 03:50 Lymphocytes # (Manual) 0.5 K/mm3 (1.2-5.4) L 07/27/22 03:50 Abs React Lymphs (Man) 0.0 K/mm3 07/27/22 03:50 Monocytes # (Manual) 0.3 K/mm3 (0.0-0.8) 07/27/22 03:50 Eosinophils # (Manual) 0.0 K/mm3 (0.0-0.4) 07/27/22 03:50 Basophils # (Manual) 0.0 K/mm3 (0.0-0.1) 07/27/22 03:50 Metamyelocytes # 0.2 K/mm3 07/27/22 03:50 Myelocytes # 0.0 K/mm3 07/27/22 03:50 Promyelocytes # 0.0 K/mm3 07/27/22 03:50 Blast Cells # 0.0 K/mm3 07/27/22 03:50 WBC Morphology Not Reportable 07/27/22 03:50 Hypersegmented Neuts Not Reportable 07/27/22 03:50 Hyposegmented Neuts Not Reportable 07/27/22 03:50 Hypogranular Neuts Not Reportable 07/27/22 03:50 Smudge Cells Not Reportable 07/27/22 03:50 Toxic Granulation Not Reportable 07/27/22 03:50 Toxic Vacuolation Not Reportable 07/27/22 03:50 Dohle Bodies Not Reportable 07/27/22 03:50 Pelger-Huet Anomaly Not Reportable 07/27/22 03:50 Jay Rods Not Reportable 07/27/22 03:50 Platelet Estimate Consistent w auto 07/27/22 03:50 Clumped Platelets Not Reportable 07/27/22 03:50 Plt Clumps, EDTA Not Reportable 07/27/22 03:50 Large Platelets Not Reportable 07/27/22 03:50 Giant Platelets Not Reportable 07/27/22 03:50 Platelet Satelliting Not Reportable 07/27/22 03:50 Plt Morphology Comment Not Reportable 07/27/22 03:50 RBC Morphology Not Reportable 07/27/22 03:50 Dimorphic RBCs Not Reportable 07/27/22 03:50 Polychromasia Not Reportable 07/27/22 03:50 Hypochromasia Not Reportable 07/27/22 03:50 Poikilocytosis Not Reportable 07/27/22 03:50 Anisocytosis Not Reportable 07/27/22 03:50 Microcytosis Not Reportable 07/27/22 03:50 Macrocytosis Not Reportable 07/27/22 03:50 Spherocytes Not Reportable 07/27/22 03:50 Pappenheimer Bodies Not Reportable 07/27/22 03:50 Sickle Cells Not Reportable 07/27/22 03:50 Target Cells Not Reportable 07/27/22 03:50 Tear Drop Cells Not Reportable 07/27/22 03:50 Ovalocytes Not Reportable 07/27/22 03:50 Helmet Cells Not Reportable 07/27/22 03:50 Reynolds-Lonsdale Bodies Not Reportable 07/27/22 03:50 [place] Rings Not Reportable 07/27/22 03:50 Leonora Cells Not Reportable 07/27/22 03:50 Bite Cells Not Reportable 07/27/22 03:50 Crenated Cell Not Reportable 07/27/22 03:50 Elliptocytes Not Reportable 07/27/22 03:50 Acanthocytes (Spur) Not Reportable 07/27/22 03:50 Rouleaux Not Reportable 07/27/22 03:50 Hemoglobin C Crystals Not Reportable 07/27/22 03:50 Schistocytes Not Reportable 07/27/22 03:50 Malaria parasites Not Reportable 07/27/22 03:50 Peewee Bodies Not Reportable 07/27/22 03:50 Hem Pathologist Commnt No 07/27/22 03:50 PT 14.3 Sec. (12.2-14.9) 07/31/22 04:13 INR 0.97 (0.87-1.13) 07/31/22 04:13 Heparin Anti-Xa, Unfract Negative (Negative) 08/01/22 04:17 ABG pH 7.500 pH Units (7.350-7.450) H 08/03/22 03:35 ABG pCO2 26.7 mm Hg 08/03/22 03:35 ABG pO2 129.6 mm Hg (80.0-90.0) H 08/03/22 03:35 ABG HCO3 20.4 mmol/L (20.0-26.0) 08/03/22 03:35 ABG O2 Saturation 98.7 % (95.0-99.0) 08/03/22 03:35 ABG O2 Content 13.5 (0.0-44) 08/03/22 03:35 ABG Base Excess -2.0 mmol/L (-2.0-3.0) 08/03/22 03:35 ABG Hemoglobin 9.7 gm/dl (14.0-18.0) L 08/03/22 03:35 ABG Carboxyhemoglobin 1.5 % (0.0-5.0) 08/03/22 03:35 ABG Methemoglobin 0.4 % (0.0-1.5) 08/03/22 03:35 VBG pH 7.362 (7.320-7.420) 07/25/22 19:37 Oxyhemoglobin 96.8 % (95.0-99.0) 08/03/22 03:35 FiO2 30 % 08/03/22 03:35 Sodium 139 mmol/L (137-145) 08/05/22 04:46 Potassium 3.9 mmol/L (3.6-5.0) D 08/05/22 04:46 Chloride 105.8 mmol/L (98-107) 08/05/22 04:46 Carbon Dioxide 16 mmol/L (22-30) L 08/05/22 04:46 Anion Gap 21 mmol/L 08/05/22 04:46 BUN 29 mg/dL (9-20) H 08/05/22 04:46 Creatinine 1.1 mg/dL (0.8-1.3) 08/05/22 04:46 Estimated GFR > 60 ml/min 08/05/22 04:46 BUN/Creatinine Ratio 26 % 08/05/22 04:46 Glucose 179 mg/dL (75-100) H 08/05/22 04:46 POC Glucose 220 mg/dL (70-105) H 08/05/22 06:05 Hemoglobin A1c 12.3 % (4-6) H 07/27/22 12:13 Lactic Acid 9.70 mmol/L (0.7-2.0) H* 07/26/22 15:36 Calcium 6.1 mg/dL (8.4-10.2) L 08/05/22 04:46 Phosphorus 2.50 mg/dL (2.5-4.5) D 08/05/22 04:46 Magnesium 1.80 mg/dL (1.7-2.3) 08/05/22 04:46 Total Bilirubin 0.30 mg/dL (0.1-1.2) 07/27/22 03:50 AST 64 units/L (5-40) H 07/27/22 03:50 ALT 31 units/L (7-56) 07/27/22 03:50 Alkaline Phosphatase 61 units/L (35-129) 07/27/22 03:50 Ammonia 64.0 umol/L (25-60) H 07/25/22 19:37 Total Creatine Kinase 158 units/L (55-170) 07/25/22 19:37 CK-MB (CK-2) < 1.0 ng/mL (0.0-4.0) 07/25/22 19:37 CK-MB (CK-2) Rel Index 0.6 (0-4) 07/25/22 19:37 Troponin T 0.049 ng/mL (0.00-0.029) H D 07/26/22 15:36 Total Protein 4.1 g/dL (6.3-8.2) L D 07/27/22 03:50 Albumin 2.1 g/dL (3.9-5) L 07/27/22 03:50 Albumin/Globulin Ratio 1.1 % 07/27/22 03:50 Triglycerides 362 mg/dL (2-149) H 07/25/22 19:37 Cholesterol 126 mg/dL (50-199) 07/25/22 19:37 LDL Cholesterol Direct 44 mg/dL (50-130) L 07/25/22 19:37 HDL Cholesterol 34 mg/dL (40-59) L 07/25/22 19:37 Cholesterol/HDL Ratio 3.70 % 07/25/22 19:37 TSH 2.170 mlU/mL (0.270-4.200) 07/25/22 19:37 Free T4 1.18 ng/dL (0.76-1.46) 07/25/22 19:37 Urine Color Lin (Yellow) 07/26/22 08:31 Urine Turbidity Cloudy (Clear) 07/26/22 08:31 Specific [place] (Man) 1.010 (1.003-1.030) 07/26/22 08:31 Ur Protein (Man) <30 mg dl mg/dL (Negative) 07/26/22 08:31 Ur Ketones (Man) Negative (Negative) 07/26/22 08:31 Ur Nitrite (Man) Negative (Negative) 07/26/22 08:31 Ur Reducing Substances Not Reportable 07/26/22 08:31 Urine Bilirubin (Man) Negative (Negative) 07/26/22 08:31 Urine Ictotest Not Reportable 07/26/22 08:31 Leukocyte Esterase (Man) Trace (Negative) 07/26/22 08:31 Urine WBC (Auto) < 1.0 /HPF (0.0-6.0) 07/26/22 08:31 Urine RBC (Auto) 1.0 /HPF (0.0-6.0) 07/26/22 08:31 U Epithel Cells (Auto) 3.0 /HPF (0-13.0) 07/26/22 08:31 Urine RBC (Manual) 5-10 (Negative) 07/26/22 08:31 Ur Renal Epithelial Cell 3 /LPF 07/26/22 08:31 Urine Mucus Few /HPF 07/26/22 08:31 Urine Creatinine 118.4 mg/dL (0.1-20.0) H 07/26/22 18:10 Protein/Creatinin Ratio 1.23 07/26/22 18:10 Urine Sodium 108 mmol/L 07/26/22 18:10 Urine Total Protein 146 mg/dL (5-11.8) H 07/26/22 18:10 Heparin-induced Plt Ab Negative (Negative) 08/01/22 04:17 UF Heparin High Dose 0 % Release 08/01/22 04:17 SU UFH Low Dose 0.1 0 % Release 08/01/22 04:17 SU UFH Low Dose 0.5 0 % Release 08/01/22 04:17 Yañez/IV: Voiding Method Indwelling Catheter Active Medications - Current Medications Current Medications: Generic Name Dose Route Start Last Admin Trade Name Freq PRN Reason Stop Dose Admin Acetaminophen 650 mg 07/26/22 00:31 08/05/22 09:32 Acetaminophen 325 Mg Tab PO 650 mg Q4H PRN Administration Pain MILD(1-3)/Fever >100.5/LANTIGUA Acetaminophen 650 mg 07/26/22 02:04 Acetaminophen 650 Mg Rect Supp LA Q4H PRN Pain, Mild (1-3) Albuterol 2.5 mg 07/26/22 00:31 Albuterol 2.5 Mg/3 Ml Nebu IH Q3HRT PRN Shortness Of Breath Amiodarone HCl 200 mg 08/04/22 11:00 08/05/22 09:32 Amiodarone 200 Mg Tab FEEDTUBE 200 mg BID LIZZIE Administration Atorvastatin Calcium 40 mg 08/04/22 22:00 08/04/22 22:09 Atorvastatin 40 Mg Tab FEEDTUBE 40 mg QHS LIZZIE Administration Dextrose 50 ml 07/27/22 09:25 08/04/22 06:03 Dextrose 50% In Water (25gm) 50 Ml Syringe IV 50 ml Q30MIN PRN Administration Hypoglycemia Protocol Famotidine 10 mg 07/28/22 10:00 08/05/22 09:32 Famotidine 10 Mg Tab FEEDTUBE 10 mg BID LIZZIE Administration Cefepime HCl 2 gm in 100 mls @ 200 mls/hr 08/05/22 10:00 Cefepime/Ns 2 Gm/100 Ml IV Q12H [facility] Protocol Meropenem 500 mg in 50 mls @ 50 mls/hr 08/05/22 12:00 Merrem/Ns 500 Mg/50 Ml IV Q6H [facility] Insulin Glargine 10 units 08/05/22 22:00 Insulin Glargine 100 Units/Ml SUB-Q QHS [facility] Insulin Human Regular 0 units 07/27/22 12:00 08/05/22 06:16 Insulin Regular, Human 100 Units/1 Ml SUB-Q 4 units Q6H [facility] Administration Protocol Multi-Ingred Cream/Lotion/Oil/Oint 1 applic 07/27/22 03:17 07/27/22 03:35 Mineral Oil/Petrolatum, White Ophth Oint 3.5 Gm OU 1 applic PRN PRN Administration Dry Eye(s) Nitroglycerin 0.4 mg 07/26/22 00:31 Nitroglycerin 0.4 Mg Tab Subl SL Q5M PRN Chest Pain Ondansetron HCl 4 mg 07/26/22 00:31 Ondansetron 4 Mg/2 Ml Inj IV Q8H PRN Nausea And Vomiting Sodium Bicarbonate 650 mg 08/04/22 14:00 08/05/22 09:32 Sodium Bicarbonate 650 Mg Tab FEEDTUBE 650 mg TID LIZZIE Administration Sodium Chloride 10 ml 07/26/22 10:00 08/05/22 09:33 Sodium Chloride 0.9% 10 Ml Flush Syringe IV 10 ml BID LIZZIE Administration Sodium Chloride 10 ml 07/26/22 00:31 Sodium Chloride 0.9% 10 Ml Flush Syringe IV PRN PRN LINE FLUSH Nutrition/Malnutrition Assess - Dietary Evaluation Nutrition/Malnutrition Findings: Nutrition Notes Start: 07/26/22 10:25 Freq: Status: Active Protocol: Document 07/31/22 14:58 PEACE (Rec: 07/31/22 15:04 PEACE [email or web address]) Nutrition Notes Initial or Follow up Reassessment Current Diagnosis Acute Kidney Injury,Diabetes, Hypertension,Respiratory Failure,Hyperlipidemia Other Pertinent Diagnosis s/p cardiac arrest, s/p DKA, acute metabolic encephalopathy Current Diet TF - Glucerna 1.2 at 45ml/hr Labs/Tests Na 146 K 3.4 BUN 53 Cr 1.6 BG 151 Pertinent Medications 40mEq KCl Height 5 ft 5 in Weight 49.8 kg [place] Body Weight (kg) 61.81 BMI 18.2 Subjective/Other Information Observed Glucerna 1.2 infusing at goal rate; pt tolerating TF. MD ordered 250ml water flush q4h. Pt remains on vent support; renal function improving. Percent of energy/protein needs met: 93% energy 100% pro Burn Absent Trauma Absent #1 Nutrition Diagnosis Inadequate oral intake Diagnosis Progress(for reassessment Continues documentation) Is patient on ventilator? Yes Is Patient Ambulatory and/or Out of Bed No REE-([facility]-confined to bed) [phone] Calculation Used for Recommendations [facility] Additional Notes Pro needs 0.8-1.2g/k-60g/ day Fluid needs per MD. Nutrition Intervention Nutrition Support: Continue Glucerna 1.2 at 45ml/ hr with 250ml water flush q4h until hypernatremia resolved. Kcal 1,296 Protein (gm) 65 Carbohydrates (gm) 124 Fat (gm) 65 Fluid (mL) 869 Fiber (gm) 17 Goal #1 TF tolerance Goal #2 TF to provide at least 75% energy and pro needs Follow-Up By: 08/07/22 Additional Comments F/U: stable TF, trach/PEG placement, vent status, renal function, BM <DASHA DOWNING - Last Filed: 08/06/22 12:38> Assessment and Plan Assessment and plan: I saw and evaluated the patient. I agree with the findings and the plan of care as documented in the Nurse Practitioner's~note, with the following corrections and additions. Hospitalist Physical - Constitutional Vitals: Temp Pulse Resp BP Pulse Ox 99 F 81 22 108/53 93 08/06/22 12:00 08/06/22 12:00 08/06/22 12:00 08/06/22 12:00 08/06/22 12:00 HEART Score - HEART Score Troponin: Troponin T 0.049 ng/mL (0.00-0.029) H D 07/26/22 15:36 Results - Labs CBC & Chem 7: 08/06/22 05:20 08/06/22 05:20 Labs: Laboratory Last Values WBC 8.2 K/mm3 (4.5-11.0) 08/06/22 05:20 RBC 3.32 M/mm3 (3.65-5.03) L 08/06/22 05:20 Hgb 9.4 gm/dl (11.8-15.2) L 08/06/22 05:20 Hct 29.4 % (35.5-45.6) L 08/06/22 05:20 MCV 88 fl (84-94) 08/06/22 05:20 MCH 28 pg (28-32) 08/06/22 05:20 MCHC 32 % (32-34) 08/06/22 05:20 RDW 15.6 % (13.2-15.2) H 08/06/22 05:20 Plt Count 212 K/mm3 (140-440) 08/06/22 05:20 Lymph % (Auto) 21.7 % (13.4-35.0) 07/25/22 19:37 Harris % (Auto) 7.3 % (0.0-7.3) 07/25/22 19:37 Eos % (Auto) 0.0 % (0.0-4.3) 07/25/22 19:37 Baso % (Auto) 0.3 % (0.0-1.8) 07/25/22 19:37 Lymph # (Auto) 4.1 K/mm3 (1.2-5.4) 07/25/22 19:37 Harris # (Auto) 1.4 K/mm3 (0.0-0.8) H 07/25/22 19:37 Eos # (Auto) 0.0 K/mm3 (0.0-0.4) 07/25/22 19:37 Baso # (Auto) 0.1 K/mm3 (0.0-0.1) 07/25/22 19:37 Add Manual Diff Complete 07/27/22 03:50 Total Counted 100 07/27/22 03:50 Seg Neutrophils % 70.7 % (40.0-70.0) H 07/25/22 19:37 Seg Neuts % (Manual) 78.0 % (40.0-70.0) H 07/27/22 03:50 Band Neutrophils % 16.0 % 07/27/22 03:50 Lymphocytes % (Manual) 3.0 % (13.4-35.0) L 07/27/22 03:50 Reactive Lymphs % (Man) 0 % 07/27/22 03:50 Monocytes % (Manual) 2.0 % (0.0-7.3) 07/27/22 03:50 Eosinophils % (Manual) 0 % (0.0-4.3) 07/27/22 03:50 Basophils % (Manual) 0 % (0.0-1.8) 07/27/22 03:50 Metamyelocytes % 1.0 % 07/27/22 03:50 Myelocytes % 0 % 07/27/22 03:50 Promyelocytes % 0 % 07/27/22 03:50 Blast Cells % 0 % 07/27/22 03:50 Nucleated RBC % Not Reportable 07/27/22 03:50 Seg Neutrophils # 13.3 K/mm3 (1.8-7.7) H 07/25/22 19:37 Seg Neutrophils # Man 12.0 K/mm3 (1.8-7.7) H 07/27/22 03:50 Band Neutrophils # 2.5 K/mm3 07/27/22 03:50 Lymphocytes # (Manual) 0.5 K/mm3 (1.2-5.4) L 07/27/22 03:50 Abs React Lymphs (Man) 0.0 K/mm3 07/27/22 03:50 Monocytes # (Manual) 0.3 K/mm3 (0.0-0.8) 07/27/22 03:50 Eosinophils # (Manual) 0.0 K/mm3 (0.0-0.4) 07/27/22 03:50 Basophils # (Manual) 0.0 K/mm3 (0.0-0.1) 07/27/22 03:50 Metamyelocytes # 0.2 K/mm3 07/27/22 03:50 Myelocytes # 0.0 K/mm3 07/27/22 03:50 Promyelocytes # 0.0 K/mm3 07/27/22 03:50 Blast Cells # 0.0 K/mm3 07/27/22 03:50 WBC Morphology Not Reportable 07/27/22 03:50 Hypersegmented Neuts Not Reportable 07/27/22 03:50 Hyposegmented Neuts Not Reportable 07/27/22 03:50 Hypogranular Neuts Not Reportable 07/27/22 03:50 Smudge Cells Not Reportable 07/27/22 03:50 Toxic Granulation Not Reportable 07/27/22 03:50 Toxic Vacuolation Not Reportable 07/27/22 03:50 Dohle Bodies Not Reportable 07/27/22 03:50 Pelger-Huet Anomaly Not Reportable 07/27/22 03:50 Jay Rods Not Reportable 07/27/22 03:50 Platelet Estimate Consistent w auto 07/27/22 03:50 Clumped Platelets Not Reportable 07/27/22 03:50 Plt Clumps, EDTA Not Reportable 07/27/22 03:50 Large Platelets Not Reportable 07/27/22 03:50 Giant Platelets Not Reportable 07/27/22 03:50 Platelet Satelliting Not Reportable 07/27/22 03:50 Plt Morphology Comment Not Reportable 07/27/22 03:50 RBC Morphology Not Reportable 07/27/22 03:50 Dimorphic RBCs Not Reportable 07/27/22 03:50 Polychromasia Not Reportable 07/27/22 03:50 Hypochromasia Not Reportable 07/27/22 03:50 Poikilocytosis Not Reportable 07/27/22 03:50 Anisocytosis Not Reportable 07/27/22 03:50 Microcytosis Not Reportable 07/27/22 03:50 Macrocytosis Not Reportable 07/27/22 03:50 Spherocytes Not Reportable 07/27/22 03:50 Pappenheimer Bodies Not Reportable 07/27/22 03:50 Sickle Cells Not Reportable 07/27/22 03:50 Target Cells Not Reportable 07/27/22 03:50 Tear Drop Cells Not Reportable 07/27/22 03:50 Ovalocytes Not Reportable 07/27/22 03:50 Helmet Cells Not Reportable 07/27/22 03:50 Reynolds-[place] Bodies Not Reportable 07/27/22 03:50 [place] Rings Not Reportable 07/27/22 03:50 Leonora Cells Not Reportable 07/27/22 03:50 Bite Cells Not Reportable 07/27/22 03:50 Crenated Cell Not Reportable 07/27/22 03:50 Elliptocytes Not Reportable 07/27/22 03:50 Acanthocytes (Spur) Not Reportable 07/27/22 03:50 Rouleaux Not Reportable 07/27/22 03:50 Hemoglobin C Crystals Not Reportable 07/27/22 03:50 Schistocytes Not Reportable 07/27/22 03:50 Malaria parasites Not Reportable 07/27/22 03:50 [place] Bodies Not Reportable 07/27/22 03:50 Hem Pathologist Commnt No 07/27/22 03:50 PT 14.3 Sec. (12.2-14.9) 07/31/22 04:13 INR 0.97 (0.87-1.13) 07/31/22 04:13 Heparin Anti-Xa, Unfract Negative (Negative) 08/01/22 04:17 ABG pH 7.500 pH Units (7.350-7.450) H 08/03/22 03:35 ABG pCO2 26.7 mm Hg 08/03/22 03:35 ABG pO2 129.6 mm Hg (80.0-90.0) H 08/03/22 03:35 ABG HCO3 20.4 mmol/L (20.0-26.0) 08/03/22 03:35 ABG O2 Saturation 98.7 % (95.0-99.0) 08/03/22 03:35 ABG O2 Content 13.5 (0.0-44) 08/03/22 03:35 ABG Base Excess -2.0 mmol/L (-2.0-3.0) 08/03/22 03:35 ABG Hemoglobin 9.7 gm/dl (14.0-18.0) L 08/03/22 03:35 ABG Carboxyhemoglobin 1.5 % (0.0-5.0) 08/03/22 03:35 ABG Methemoglobin 0.4 % (0.0-1.5) 08/03/22 03:35 VBG pH 7.362 (7.320-7.420) 07/25/22 19:37 Oxyhemoglobin 96.8 % (95.0-99.0) 08/03/22 03:35 FiO2 30 % 08/03/22 03:35 Sodium 140 mmol/L (137-145) 08/06/22 05:20 Potassium 3.6 mmol/L (3.6-5.0) 08/06/22 05:20 Chloride 107.2 mmol/L (98-107) H 08/06/22 05:20 Carbon Dioxide 21 mmol/L (22-30) L 08/06/22 05:20 Anion Gap 15 mmol/L 08/06/22 05:20 BUN 25 mg/dL (9-20) H 08/06/22 05:20 Creatinine 1.0 mg/dL (0.8-1.3) 08/06/22 05:20 Estimated GFR > 60 ml/min 08/06/22 05:20 BUN/Creatinine Ratio 25 % 08/06/22 05:20 Glucose 176 mg/dL (75-100) H 08/06/22 05:20 POC Glucose 182 mg/dL (70-105) H 08/06/22 05:13 Hemoglobin A1c 12.3 % (4-6) H 07/27/22 12:13 Lactic Acid 9.70 mmol/L (0.7-2.0) H* 07/26/22 15:36 Calcium 6.1 mg/dL (8.4-10.2) L 08/06/22 05:20 Phosphorus 1.80 mg/dL (2.5-4.5) L D 08/06/22 05:20 Magnesium 1.60 mg/dL (1.7-2.3) L 08/06/22 05:20 Total Bilirubin 0.30 mg/dL (0.1-1.2) 07/27/22 03:50 AST 64 units/L (5-40) H 07/27/22 03:50 ALT 31 units/L (7-56) 07/27/22 03:50 Alkaline Phosphatase 61 units/L (35-129) 07/27/22 03:50 Ammonia 64.0 umol/L (25-60) H 07/25/22 19:37 Total Creatine Kinase 158 units/L (55-170) 07/25/22 19:37 CK-MB (CK-2) < 1.0 ng/mL (0.0-4.0) 07/25/22 19:37 CK-MB (CK-2) Rel Index 0.6 (0-4) 07/25/22 19:37 Troponin T 0.049 ng/mL (0.00-0.029) H D 07/26/22 15:36 C-Reactive Protein 21.50 mg/dL (0.00-1.30) H 08/05/22 21:43 Total Protein 4.1 g/dL (6.3-8.2) L D 07/27/22 03:50 Albumin 2.1 g/dL (3.9-5) L 07/27/22 03:50 Albumin/Globulin Ratio 1.1 % 07/27/22 03:50 Triglycerides 362 mg/dL (2-149) H 07/25/22 19:37 Cholesterol 126 mg/dL (50-199) 07/25/22 19:37 LDL Cholesterol Direct 44 mg/dL (50-130) L 07/25/22 19:37 HDL Cholesterol 34 mg/dL (40-59) L 07/25/22 19:37 Cholesterol/HDL Ratio 3.70 % 07/25/22 19:37 Serotonin Release Assay See scanned result 08/01/22 04:17 TSH 2.170 mlU/mL (0.270-4.200) 07/25/22 19:37 Free T4 1.18 ng/dL (0.76-1.46) 07/25/22 19:37 Urine Color Lin (Yellow) 08/05/22 11:00 Urine Turbidity Cloudy (Clear) 08/05/22 11:00 Specific [place] (Man) 1.017 (1.003-1.030) 08/05/22 11:00 Ur Protein (Man) 2+ mg/dL (Negative) 08/05/22 11:00 Ur Ketones (Man) Negative (Negative) 08/05/22 11:00 Ur Nitrite (Man) Negative (Negative) 08/05/22 11:00 Ur Reducing Substances Not Reportable 07/26/22 08:31 Urine Bilirubin (Man) Negative (Negative) 08/05/22 11:00 Urine Ictotest Not Reportable 08/05/22 11:00 Leukocyte Esterase (Man) Negative (Negative) 08/05/22 11:00 Urine WBC (Auto) 6.0 /HPF (0.0-6.0) 08/05/22 11:00 Urine RBC (Auto) 6.0 /HPF (0.0-6.0) 08/05/22 11:00 U Epithel Cells (Auto) 1.0 /HPF (0-13.0) 08/05/22 11:00 Urine Bacteria (Auto) 1+ /HPF (Negative) 08/05/22 11:00 Urine RBC (Manual) 4+ (Negative) 08/05/22 11:00 Ur Renal Epithelial Cell 3 /LPF 07/26/22 08:31 Uric Acid Crystals Few 08/05/22 11:00 Amorphous Crystals Few 08/05/22 11:00 Urine Mucus Few /HPF 08/05/22 11:00 Urine Creatinine 118.4 mg/dL (0.1-20.0) H 07/26/22 18:10 Protein/Creatinin Ratio 1.23 07/26/22 18:10 Urine Sodium 108 mmol/L 07/26/22 18:10 Urine Total Protein 146 mg/dL (5-11.8) H 07/26/22 18:10 Heparin-induced Plt Ab Negative (Negative) 08/01/22 04:17 UF Heparin High Dose 0 % Release 08/01/22 04:17 SU UFH Low Dose 0.1 0 % Release 08/01/22 04:17 SU UFH Low Dose 0.5 0 % Release 08/01/22 04:17 Microbiology: Microbiology 08/05/22 21:56 Peripheral/Venous Blood Culture - Preliminary Culture in Progress 08/05/22 21:43 Peripheral/Venous Blood Culture - Preliminary Culture in Progress Yañez/IV: Voiding Method Condom Catheter Active Medications - Current Medications Current Medications: Generic Name Dose Route Start Last Admin Trade Name Freq PRN Reason Stop Dose Admin Acetaminophen 650 mg 07/26/22 00:31 08/06/22 09:13 Acetaminophen 325 Mg Tab PO 650 mg Q4H PRN Administration Pain MILD(1-3)/Fever >100.5/LANTIGUA Acetaminophen 650 mg 07/26/22 02:04 Acetaminophen 650 Mg Rect Supp LA Q4H PRN Pain, Mild (1-3) Albuterol 2.5 mg 07/26/22 00:31 Albuterol 2.5 Mg/3 Ml Nebu IH Q3HRT PRN Shortness Of Breath Amiodarone HCl 200 mg 08/04/22 11:00 08/06/22 09:13 Amiodarone 200 Mg Tab FEEDTUBE 200 mg BID LIZZIE Administration Atorvastatin Calcium 40 mg 08/04/22 22:00 08/05/22 21:13 Atorvastatin 40 Mg Tab FEEDTUBE 40 mg QHS LIZZIE Administration Dextrose 50 ml 07/27/22 09:25 08/04/22 06:03 Dextrose 50% In Water (25gm) 50 Ml Syringe IV 50 ml Q30MIN PRN Administration Hypoglycemia Protocol Enoxaparin Sodium 40 mg 08/06/22 10:00 08/06/22 10:14 Enoxaparin 40 Mg/0.4 Ml Inj SUB-Q 40 mg QDAY@1000 LIZZIE Administration Famotidine 10 mg 07/28/22 10:00 08/06/22 09:13 Famotidine 10 Mg Tab FEEDTUBE 10 mg BID LIZZIE Administration Meropenem/Sodium Chloride 1 gram in 100 mls @ 100 mls/hr 08/06/22 10:00 08/06/22 10:45 Merrem/Ns 1 Gram/100 Ml IV 100 mls/hr Q8H [facility] Administration Protocol Magnesium Sulfate 4 gm in 100 mls @ 25 mls/hr 08/06/22 10:00 08/06/22 10:15 Magnesium Sulfate 4gm/100ml IV 08/06/22 13:59 25 mls/hr ONCE ONE Administration Vancomycin HCl 750 mg/ Sodium 265 mls @ 176.667 mls/hr 08/07/22 10:00 Chloride IV Q24H [facility] Insulin Glargine 10 units 08/05/22 22:00 08/05/22 21:12 Insulin Glargine 100 Units/Ml SUB-Q 10 units QHS [facility] Administration Insulin Human Regular 0 units 07/27/22 12:00 08/06/22 11:57 Insulin Regular, Human 100 Units/1 Ml SUB-Q 3 units Q6H [facility] Administration Protocol Multi-Ingred Cream/Lotion/Oil/Oint 1 applic 07/27/22 03:17 07/27/22 03:35 Mineral Oil/Petrolatum, White Ophth Oint 3.5 Gm OU 1 applic PRN PRN Administration Dry Eye(s) Nitroglycerin 0.4 mg 07/26/22 00:31 Nitroglycerin 0.4 Mg Tab Subl SL Q5M PRN Chest Pain Ondansetron HCl 4 mg 07/26/22 00:31 Ondansetron 4 Mg/2 Ml Inj IV Q8H PRN Nausea And Vomiting Sodium Bicarbonate 650 mg 08/04/22 14:00 08/06/22 08:46 Sodium Bicarbonate 650 Mg Tab FEEDTUBE 650 mg TID LIZZIE Administration Sodium Chloride 10 ml 07/26/22 10:00 08/06/22 10:15 Sodium Chloride 0.9% 10 Ml Flush Syringe IV 10 ml BID LIZZIE Administration Sodium Chloride 10 ml 07/26/22 00:31 Sodium Chloride 0.9% 10 Ml Flush Syringe IV PRN PRN LINE FLUSH Sodium Phosphate 250 mg 08/06/22 10:00 08/06/22 10:45 K-Phos Neutral 250 Mg Tab PO 08/06/22 22:01 250 mg QID LIZZIE Administration Nutrition/Malnutrition Assess - Dietary Evaluation Nutrition/Malnutrition Findings: Nutrition Notes Start: 07/26/22 10:25 Freq: Status: Active Protocol: Document 07/31/22 14:58 PEACE (Rec: 07/31/22 15:04 PEACE [id number]) Nutrition Notes Initial or Follow up Reassessment Current Diagnosis Acute Kidney Injury,Diabetes, Hypertension,Respiratory Failure,Hyperlipidemia Other Pertinent Diagnosis s/p cardiac arrest, s/p DKA, acute metabolic encephalopathy Current Diet TF - Glucerna 1.2 at 45ml/hr Labs/Tests Na 146 K 3.4 BUN 53 Cr 1.6 BG 151 Pertinent Medications 40mEq KCl Height 5 ft 5 in Weight 49.8 kg [place] Body Weight (kg) 61.81 BMI 18.2 Subjective/Other Information Observed Glucerna 1.2 infusing at goal rate; pt tolerating TF. MD ordered 250ml water flush q4h. Pt remains on vent support; renal function improving. Percent of energy/protein needs met: 93% energy 100% pro Burn Absent Trauma Absent #1 Nutrition Diagnosis Inadequate oral intake Diagnosis Progress(for reassessment Continues documentation) Is patient on ventilator? Yes Is Patient Ambulatory and/or Out of Bed No REE-([facility]-confined to bed) [phone] Calculation Used for Recommendations [facility] Additional Notes Pro needs 0.8-1.2g/k-60g/ day Fluid needs per MD. Nutrition Intervention Nutrition Support: Continue Glucerna 1.2 at 45ml/ hr with 250ml water flush q4h until hypernatremia resolved. Kcal 1,296 Protein (gm) 65 Carbohydrates (gm) 124 Fat (gm) 65 Fluid (mL) 869 Fiber (gm) 17 Goal #1 TF tolerance Goal #2 TF to provide at least 75% energy and pro needs Follow-Up By: 08/07/22 Additional Comments F/U: stable TF, trach/PEG placement, vent status, renal function, BM
[2022-08-05 11:54] LABS: Color,Urine Amber (Yellow)
[2022-08-05] MEDS ORDERED: MEROPENEM/NS 500 MG/50 ML 500 MG/50 ML BAG IV SCH (12:00)
[2022-08-05 12:03] LABS: Amorphous Crystals,Urine Few; Bacteria,Urine 1+ /HPF (Negative); Mucus,Urine FEW /HPF
[2022-08-05] MEDS: CEFEPIME/NS 2 GM/100 ML 2 GM/100 ML BAG IV SCH ×2 (12:15→21:22)
--- NOTE | 2022-08-05 12:24 | Progress Note ---
Assessment and Plan 77 y/o male with cardiac arrest, intubated, not sedated with multisystem organ failure 08/05/2022. No significant change continued on low-grade fever. Cultures has been obtained urine analysis is not suggestive of infection. Yañez was removed if patient does not void on his own he will require reinsertion of Yañez catheter. Remains with altered mental status/anoxic encephalopathy postcardiac arrest. Has trach and remains on mechanical ventilator at this time. Consider antibiotic therapy if fever continues. Chest x-ray shows subtle lower lobe infiltrate could be related to ventilator associated pneumonia. We will send sputum for gram stain and C&S. Continue with cefepime 08/04/22: CXR in am. Will order sputum as per report, secretions have increased. Abx therapy has stopped. Trach site stable. await placement. If spikes again, needs blood, urine and UA. 08/03/22: Await placement. Continue daily PSV. PT consult. 08/01/22: Follow up surgery recs. Continue supportive care. 07/31/22: Supportive care. Surgery consult for trach and peg. Renal function continues to improve. 07/30/22: Continue supportive measures. Family wants aggressive measures despite MRI findings so needs consult to surgery for trach and peg. Will drop steroids down to 25q8 or 50q12 Sunday. Continue volume as renal function is improving. needs more free water if possible. 07/29/22: Drop steroids to 50q8 starting today. CBC not checked, need to evaluate Platelets. Need to correct electrolytes as well. Family is likely going to want trach and peg based on earlier conversations but awaiting more family. Given recent MRI results, prognosis is very poor. 07/28/22: Hold on Volume today. Drop steroids down to 50q8 starting tomorrow. Follow up MRI. EEG results still pending. Platelets still dropping but no evidence of bleeding. Continue abx therapy. Continue feeds. Prognosis is still guarded. 07/27/22: more volume again today. Echo showed normal EF. Wean pressors for MAPs >65, follow up EEg results. Hopeful to get head CT today. Platelets dropped today, not on heparin. Could be sepsis related. If head CT negative, may need to evaluate abdomen around peg. Will start trickle feeds today and transition of insulin drip. Prognosis is still guarded. 1. IVF resusciation with LR 2. Insulin drip and continue NPO state 3. Attempt to wean pressors for MAPs greater than 65 4. Monitor urine output 5. Broaden abx therapy given current clinical state 6. Follow up echo report 7. Agree with stress dose steroids 8. No sedation 9. EEG pending Overall prognosis is guarded to poor, especially given current clinical exam CCT 31 minutes. Subjective Date of service: 08/05/22 Principal diagnosis: Hypernatremia, ARF Interval history: Remains unresponsive on mechanical ventilator. Continues to have low-grade fever up to 101.6. Yañez catheter has been changed urine has been sent. Objective - Exam Narrative Exam: General appearance: Present: other (Trached, on the vent, and unresponsive) - EENT Eyes: Present: irregular pupil, mydriasis - Respiratory Respiratory effort: normal Respiratory: bilateral: rhonchi - Cardiovascular Rhythm: regular Heart Sounds: Present: S1 & S2 - Extremities Extremities: no ischemia, pulses intact, pulses symmetrical Extremity abnormal: edema - Peripheral Assessment Generalized Edema Type: Non-pitting Edema Degree: 2+ Capillary Refill: < 3 seconds Skin Temperature: Warm Peripheral Pulses: within normal limits - Abdominal General gastrointestinal: soft, non-distended, normal bowel sounds - Integumentary Integumentary: Present: warm, dry - Psychiatric Psychiatric: other (on the vent and unresponsive) - Neurologic Neurologic: other (On the vent and unresponsive) - Allied Health Allied health notes reviewed: nursing, case management Vital Signs - 12hr 08/05/22 08/05/22 08/05/22 01:00 02:00 03:00 Temperature Pulse Rate 87 88 84 Pulse Rate [ From Monitor] Respiratory 19 19 25 H Rate Blood Pressure 125/80 154/82 138/73 O2 Sat by Pulse 94 99 95 Oximetry 08/05/22 08/05/22 08/05/22 04:00 04:28 04:35 Temperature 100.3 F H Pulse Rate 93 H 97 H Pulse Rate [ 87 From Monitor] Respiratory 14 Rate Blood Pressure 145/82 145/82 O2 Sat by Pulse 94 100 Oximetry 08/05/22 08/05/22 08/05/22 05:00 06:00 07:00 Temperature Pulse Rate 96 H 105 H 101 H Pulse Rate [ From Monitor] Respiratory 31 H 36 H 26 H Rate Blood Pressure 139/77 128/74 144/72 O2 Sat by Pulse 96 95 98 Oximetry 08/05/22 08/05/22 08/05/22 08:00 09:00 09:35 Temperature 101.6 F H Pulse Rate 96 H 101 H 102 H Pulse Rate [ 96 H From Monitor] Respiratory 27 H 23 Rate Blood Pressure 147/68 131/68 167/89 O2 Sat by Pulse 95 99 Oximetry 08/05/22 08/05/22 08/05/22 09:46 10:00 11:00 Temperature Pulse Rate 99 H 94 H Pulse Rate [ From Monitor] Respiratory 41 H 25 H Rate Blood Pressure 151/77 126/64 O2 Sat by Pulse 96 94 94 Oximetry 08/05/22 08/05/22 12:00 12:02 Temperature 99.4 F Pulse Rate 84 Pulse Rate [ 84 From Monitor] Respiratory 24 24 Rate Blood Pressure 135/72 O2 Sat by Pulse 98 98 Oximetry CBC and BMP: 08/05/22 04:46 08/05/22 04:46 ABG, PT/INR, D-dimer: ABG ABG pH 7.500 pH Units (7.350-7.450) H 08/03/22 03:35 ABG pCO2 26.7 mm Hg 08/03/22 03:35 ABG pO2 129.6 mm Hg (80.0-90.0) H 08/03/22 03:35 ABG O2 Saturation 98.7 % (95.0-99.0) 08/03/22 03:35 PT/INR, D-dimer PT 14.3 Sec. (12.2-14.9) 07/31/22 04:13 INR 0.97 (0.87-1.13) 07/31/22 04:13 Abnormal lab findings: Abnormal Labs 07/25/22 07/25/22 07/25/22 19:37 19:37 19:37 WBC 18.8 H RBC 6.31 H Hgb 18.8 H Hct 57.3 H MCV MCHC RDW Plt Count Wilson # (Auto) 1.4 H Seg Neutrophils % 70.7 H Seg Neuts % (Manual) Lymphocytes % (Manual) Seg Neutrophils # 13.3 H Seg Neutrophils # Man Lymphocytes # (Manual) ABG pH ABG pO2 ABG HCO3 ABG O2 Saturation ABG Base Excess ABG Hemoglobin Oxyhemoglobin Sodium 149 H Potassium Chloride 110.3 H Carbon Dioxide 18 L BUN 73 H Creatinine 3.3 H Glucose 761 H* POC Glucose Hemoglobin A1c Lactic Acid Calcium 10.6 H Phosphorus Magnesium 3.10 H AST 63 H ALT 64 H Ammonia Troponin T 0.072 H Total Protein 9.0 H Albumin Triglycerides 362 H LDL Cholesterol Direct 44 L HDL Cholesterol 34 L Urine Creatinine Urine Total Protein 07/25/22 07/25/22 07/25/22 19:37 21:08 22:10 WBC RBC Hgb Hct MCV MCHC RDW Plt Count [place] # (Auto) Seg Neutrophils % Seg Neuts % (Manual) Lymphocytes % (Manual) Seg Neutrophils # Seg Neutrophils # Man Lymphocytes # (Manual) ABG pH ABG pO2 ABG HCO3 ABG O2 Saturation ABG Base Excess ABG Hemoglobin Oxyhemoglobin Sodium 155 H Potassium Chloride 113.1 H Carbon Dioxide 14 L BUN 74 H Creatinine 3.5 H Glucose 734 H* POC Glucose Hemoglobin A1c Lactic Acid 12.70 H* Calcium Phosphorus Magnesium AST ALT Ammonia 64.0 H Troponin T Total Protein Albumin Triglycerides LDL Cholesterol Direct HDL Cholesterol Urine Creatinine Urine Total Protein 07/25/22 07/25/22 07/26/22 22:20 23:29 00:13 WBC RBC Hgb Hct MCV MCHC RDW Plt Count [place] # (Auto) Seg Neutrophils % Seg Neuts % (Manual) Lymphocytes % (Manual) Seg Neutrophils # Seg Neutrophils # Man Lymphocytes # (Manual) ABG pH 7.342 L ABG pO2 318.2 H ABG HCO3 14.4 L ABG O2 Saturation 99.5 H ABG Base Excess -9.4 L ABG Hemoglobin Oxyhemoglobin Sodium 157 H Potassium 3.1 L D Chloride 114.0 H Carbon Dioxide 21 L D BUN 72 H Creatinine 3.7 H Glucose 615 H* POC Glucose > 600 H Hemoglobin A1c Lactic Acid Calcium Phosphorus Magnesium AST ALT Ammonia Troponin T Total Protein Albumin Triglycerides LDL Cholesterol Direct HDL Cholesterol Urine Creatinine Urine Total Protein 07/26/22 07/26/22 07/26/22 00:13 00:38 00:39 WBC 21.4 H RBC 5.88 H Hgb 17.2 H Hct 55.0 H MCV MCHC 31 L RDW 16.0 H Plt Count Wilson # (Auto) Seg Neutrophils % Seg Neuts % (Manual) 77.0 H Lymphocytes % (Manual) 13.0 L Seg Neutrophils # Seg Neutrophils # Man 16.5 H Lymphocytes # (Manual) ABG pH ABG pO2 ABG HCO3 ABG O2 Saturation ABG Base Excess ABG Hemoglobin Oxyhemoglobin Sodium Potassium Chloride Carbon Dioxide BUN Creatinine Glucose POC Glucose 517 H Hemoglobin A1c Lactic Acid 9.10 H* Calcium Phosphorus Magnesium AST ALT Ammonia Troponin T Total Protein Albumin Triglycerides LDL Cholesterol Direct HDL Cholesterol Urine Creatinine Urine Total Protein 07/26/22 07/26/22 07/26/22 00:39 01:32 02:28 WBC RBC Hgb Hct MCV MCHC RDW Plt Count [place] # (Auto) Seg Neutrophils % Seg Neuts % (Manual) Lymphocytes % (Manual) Seg Neutrophils # Seg Neutrophils # Man Lymphocytes # (Manual) ABG pH ABG pO2 ABG HCO3 ABG O2 Saturation ABG Base Excess ABG Hemoglobin Oxyhemoglobin Sodium Potassium Chloride Carbon Dioxide BUN Creatinine Glucose POC Glucose 460 H 237 H Hemoglobin A1c Lactic Acid Calcium Phosphorus 1.20 L D Magnesium 4.10 H AST ALT Ammonia Troponin T Total Protein Albumin Triglycerides LDL Cholesterol Direct HDL Cholesterol Urine Creatinine Urine Total Protein 07/26/22 07/26/22 07/26/22 03:03 03:07 04:11 WBC RBC Hgb Hct MCV MCHC RDW Plt Count [place] # (Auto) Seg Neutrophils % Seg Neuts % (Manual) Lymphocytes % (Manual) Seg Neutrophils # Seg Neutrophils # Man Lymphocytes # (Manual) ABG pH ABG pO2 ABG HCO3 ABG O2 Saturation ABG Base Excess ABG Hemoglobin Oxyhemoglobin Sodium Potassium Chloride Carbon Dioxide BUN Creatinine Glucose POC Glucose 433 H 370 H 338 H Hemoglobin A1c Lactic Acid Calcium Phosphorus Magnesium AST ALT Ammonia Troponin T Total Protein Albumin Triglycerides LDL Cholesterol Direct HDL Cholesterol Urine Creatinine Urine Total Protein 07/26/22 07/26/22 07/26/22 04:35 04:35 04:40 WBC RBC Hgb Hct MCV MCHC RDW Plt Count [place] # (Auto) Seg Neutrophils % Seg Neuts % (Manual) Lymphocytes % (Manual) Seg Neutrophils # Seg Neutrophils # Man Lymphocytes # (Manual) ABG pH 7.301 L ABG pO2 178.2 H ABG HCO3 11.0 L ABG O2 Saturation 99.1 H ABG Base Excess -13.3 L ABG Hemoglobin Oxyhemoglobin Sodium 162 H* Potassium 3.0 L Chloride 124.8 H Carbon Dioxide 18 L BUN 69 H Creatinine 3.9 H Glucose 385 H POC Glucose Hemoglobin A1c Lactic Acid 8.20 H* Calcium 7.8 L Phosphorus Magnesium AST ALT Ammonia Troponin T Total Protein Albumin Triglycerides LDL Cholesterol Direct HDL Cholesterol Urine Creatinine Urine Total Protein 07/26/22 07/26/22 07/26/22 05:01 06:14 06:52 WBC RBC Hgb Hct MCV MCHC RDW Plt Count [place] # (Auto) Seg Neutrophils % Seg Neuts % (Manual) Lymphocytes % (Manual) Seg Neutrophils # Seg Neutrophils # Man Lymphocytes # (Manual) ABG pH ABG pO2 ABG HCO3 ABG O2 Saturation ABG Base Excess ABG Hemoglobin Oxyhemoglobin Sodium Potassium Chloride Carbon Dioxide BUN Creatinine Glucose POC Glucose 347 H 300 H 278 H Hemoglobin A1c Lactic Acid Calcium Phosphorus Magnesium AST ALT Ammonia Troponin T Total Protein Albumin Triglycerides LDL Cholesterol Direct HDL Cholesterol Urine Creatinine Urine Total Protein 07/26/22 07/26/22 07/26/22 07:59 08:58 10:04 WBC RBC Hgb Hct MCV MCHC RDW Plt Count [place] # (Auto) Seg Neutrophils % Seg Neuts % (Manual) Lymphocytes % (Manual) Seg Neutrophils # Seg Neutrophils # Man Lymphocytes # (Manual) ABG pH ABG pO2 ABG HCO3 ABG O2 Saturation ABG Base Excess ABG Hemoglobin Oxyhemoglobin Sodium Potassium Chloride Carbon Dioxide BUN Creatinine Glucose POC Glucose 269 H 277 H 244 H Hemoglobin A1c Lactic Acid Calcium Phosphorus Magnesium AST ALT Ammonia Troponin T Total Protein Albumin Triglycerides LDL Cholesterol Direct HDL Cholesterol Urine Creatinine Urine Total Protein 07/26/22 07/26/22 07/26/22 11:03 11:53 13:08 WBC RBC Hgb Hct MCV MCHC RDW Plt Count [place] # (Auto) Seg Neutrophils % Seg Neuts % (Manual) Lymphocytes % (Manual) Seg Neutrophils # Seg Neutrophils # Man Lymphocytes # (Manual) ABG pH ABG pO2 ABG HCO3 ABG O2 Saturation ABG Base Excess ABG Hemoglobin Oxyhemoglobin Sodium Potassium Chloride Carbon Dioxide BUN Creatinine Glucose POC Glucose 253 H 213 H 194 H Hemoglobin A1c Lactic Acid Calcium Phosphorus Magnesium AST ALT Ammonia Troponin T Total Protein Albumin Triglycerides LDL Cholesterol Direct HDL Cholesterol Urine Creatinine Urine Total Protein 07/26/22 07/26/22 07/26/22 14:24 14:56 14:57 WBC RBC Hgb Hct MCV MCHC RDW Plt Count [place] # (Auto) Seg Neutrophils % Seg Neuts % (Manual) Lymphocytes % (Manual) Seg Neutrophils # Seg Neutrophils # Man Lymphocytes # (Manual) ABG pH ABG pO2 ABG HCO3 ABG O2 Saturation ABG Base Excess ABG Hemoglobin Oxyhemoglobin Sodium Potassium Chloride Carbon Dioxide BUN Creatinine Glucose POC Glucose 185 H 236 H 207 H Hemoglobin A1c Lactic Acid Calcium Phosphorus Magnesium AST ALT Ammonia Troponin T Total Protein Albumin Triglycerides LDL Cholesterol Direct HDL Cholesterol Urine Creatinine Urine Total Protein 07/26/22 07/26/22 07/26/22 15:36 15:36 15:36 WBC RBC Hgb Hct MCV MCHC RDW Plt Count [place] # (Auto) Seg Neutrophils % Seg Neuts % (Manual) Lymphocytes % (Manual) Seg Neutrophils # Seg Neutrophils # Man Lymphocytes # (Manual) ABG pH ABG pO2 ABG HCO3 ABG O2 Saturation ABG Base Excess ABG Hemoglobin Oxyhemoglobin Sodium 160 H Potassium Chloride 126.2 H Carbon Dioxide 18 L BUN 59 H Creatinine 3.2 H Glucose 227 H POC Glucose Hemoglobin A1c Lactic Acid 9.70 H* Calcium 7.1 L Phosphorus Magnesium AST ALT Ammonia Troponin T 0.049 H D Total Protein Albumin Triglycerides LDL Cholesterol Direct HDL Cholesterol Urine Creatinine Urine Total Protein 07/26/22 07/26/22 07/26/22 15:57 16:32 17:04 WBC RBC Hgb Hct MCV MCHC RDW Plt Count [place] # (Auto) Seg Neutrophils % Seg Neuts % (Manual) Lymphocytes % (Manual) Seg Neutrophils # Seg Neutrophils # Man Lymphocytes # (Manual) ABG pH ABG pO2 ABG HCO3 ABG O2 Saturation ABG Base Excess ABG Hemoglobin Oxyhemoglobin Sodium Potassium Chloride Carbon Dioxide BUN Creatinine Glucose POC Glucose 207 H 189 H 219 H Hemoglobin A1c Lactic Acid Calcium Phosphorus Magnesium AST ALT Ammonia Troponin T Total Protein Albumin Triglycerides LDL Cholesterol Direct HDL Cholesterol Urine Creatinine Urine Total Protein 07/26/22 07/26/22 07/26/22 18:00 18:10 18:52 WBC RBC Hgb Hct MCV MCHC RDW Plt Count [place] # (Auto) Seg Neutrophils % Seg Neuts % (Manual) Lymphocytes % (Manual) Seg Neutrophils # Seg Neutrophils # Man Lymphocytes # (Manual) ABG pH ABG pO2 ABG HCO3 ABG O2 Saturation ABG Base Excess ABG Hemoglobin Oxyhemoglobin Sodium Potassium Chloride Carbon Dioxide BUN Creatinine Glucose POC Glucose 197 H 194 H Hemoglobin A1c Lactic Acid Calcium Phosphorus Magnesium AST ALT Ammonia Troponin T Total Protein Albumin Triglycerides LDL Cholesterol Direct HDL Cholesterol Urine Creatinine 118.4 H Urine Total Protein 146 H 07/26/22 07/26/22 07/26/22 20:47 21:30 21:51 WBC RBC Hgb Hct MCV MCHC RDW Plt Count [place] # (Auto) Seg Neutrophils % Seg Neuts % (Manual) Lymphocytes % (Manual) Seg Neutrophils # Seg Neutrophils # Man Lymphocytes # (Manual) ABG pH ABG pO2 ABG HCO3 ABG O2 Saturation ABG Base Excess ABG Hemoglobin Oxyhemoglobin Sodium 155 H Potassium Chloride 123.5 H Carbon Dioxide 16 L BUN 53 H Creatinine 2.9 H Glucose 185 H POC Glucose 134 H 124 H Hemoglobin A1c Lactic Acid Calcium 7.0 L Phosphorus Magnesium AST ALT Ammonia Troponin T Total Protein Albumin Triglycerides LDL Cholesterol Direct HDL Cholesterol Urine Creatinine Urine Total Protein 07/26/22 07/26/22 07/27/22 22:47 23:52 00:45 WBC RBC Hgb Hct MCV MCHC RDW Plt Count [place] # (Auto) Seg Neutrophils % Seg Neuts % (Manual) Lymphocytes % (Manual) Seg Neutrophils # Seg Neutrophils # Man Lymphocytes # (Manual) ABG pH ABG pO2 ABG HCO3 ABG O2 Saturation ABG Base Excess ABG Hemoglobin Oxyhemoglobin Sodium 155 H Potassium Chloride 124.2 H Carbon Dioxide 19 L BUN 53 H Creatinine 2.5 H Glucose 168 H POC Glucose 138 H 150 H Hemoglobin A1c Lactic Acid Calcium 6.7 L Phosphorus Magnesium AST ALT Ammonia Troponin T Total Protein Albumin Triglycerides LDL Cholesterol Direct HDL Cholesterol Urine Creatinine Urine Total Protein 07/27/22 07/27/22 07/27/22 00:58 02:45 03:50 WBC 15.4 H RBC Hgb Hct MCV MCHC RDW 15.3 H Plt Count 60 L Wilson # (Auto) Seg Neutrophils % Seg Neuts % (Manual) 78.0 H Lymphocytes % (Manual) 3.0 L Seg Neutrophils # Seg Neutrophils # Man 12.0 H Lymphocytes # (Manual) 0.5 L ABG pH ABG pO2 ABG HCO3 ABG O2 Saturation ABG Base Excess ABG Hemoglobin Oxyhemoglobin Sodium Potassium Chloride Carbon Dioxide BUN Creatinine Glucose POC Glucose 153 H 150 H Hemoglobin A1c Lactic Acid Calcium Phosphorus Magnesium AST ALT Ammonia Troponin T Total Protein Albumin Triglycerides LDL Cholesterol Direct HDL Cholesterol Urine Creatinine Urine Total Protein 07/27/22 07/27/22 07/27/22 03:50 03:55 04:57 WBC RBC Hgb Hct MCV MCHC RDW Plt Count [place] # (Auto) Seg Neutrophils % Seg Neuts % (Manual) Lymphocytes % (Manual) Seg Neutrophils # Seg Neutrophils # Man Lymphocytes # (Manual) ABG pH ABG pO2 110.1 H ABG HCO3 13.3 L ABG O2 Saturation ABG Base Excess -9.0 L ABG Hemoglobin 13.1 L Oxyhemoglobin Sodium 154 H Potassium Chloride 123.0 H Carbon Dioxide 19 L BUN 55 H Creatinine 2.8 H Glucose 153 H POC Glucose 112 H Hemoglobin A1c Lactic Acid Calcium 6.8 L Phosphorus 1.30 L Magnesium AST 64 H ALT Ammonia Troponin T Total Protein 4.1 L D Albumin 2.1 L Triglycerides LDL Cholesterol Direct HDL Cholesterol Urine Creatinine Urine Total Protein 07/27/22 07/27/22 07/27/22 08:22 09:30 10:49 WBC RBC Hgb Hct MCV MCHC RDW Plt Count [place] # (Auto) Seg Neutrophils % Seg Neuts % (Manual) Lymphocytes % (Manual) Seg Neutrophils # Seg Neutrophils # Man Lymphocytes # (Manual) ABG pH ABG pO2 ABG HCO3 ABG O2 Saturation ABG Base Excess ABG Hemoglobin Oxyhemoglobin Sodium Potassium Chloride Carbon Dioxide BUN Creatinine Glucose POC Glucose 146 H 153 H 163 H Hemoglobin A1c Lactic Acid Calcium Phosphorus Magnesium AST ALT Ammonia Troponin T Total Protein Albumin Triglycerides LDL Cholesterol Direct HDL Cholesterol Urine Creatinine Urine Total Protein 07/27/22 07/27/22 07/27/22 12:13 12:44 17:17 WBC RBC Hgb Hct MCV MCHC RDW Plt Count [place] # (Auto) Seg Neutrophils % Seg Neuts % (Manual) Lymphocytes % (Manual) Seg Neutrophils # Seg Neutrophils # Man Lymphocytes # (Manual) ABG pH ABG pO2 ABG HCO3 ABG O2 Saturation ABG Base Excess ABG Hemoglobin Oxyhemoglobin Sodium Potassium Chloride Carbon Dioxide BUN Creatinine Glucose POC Glucose 190 H 287 H Hemoglobin A1c 12.3 H Lactic Acid Calcium Phosphorus Magnesium AST ALT Ammonia Troponin T Total Protein Albumin Triglycerides LDL Cholesterol Direct HDL Cholesterol Urine Creatinine Urine Total Protein 07/28/22 07/28/22 07/28/22 00:22 03:58 04:05 WBC RBC Hgb Hct MCV MCHC RDW Plt Count [place] # (Auto) Seg Neutrophils % Seg Neuts % (Manual) Lymphocytes % (Manual) Seg Neutrophils # Seg Neutrophils # Man Lymphocytes # (Manual) ABG pH ABG pO2 171.2 H ABG HCO3 12.3 L ABG O2 Saturation 99.2 H ABG Base Excess -9.7 L ABG Hemoglobin 10.9 L Oxyhemoglobin Sodium 148 H Potassium Chloride 117.0 H Carbon Dioxide 16 L BUN 74 H Creatinine 3.2 H Glucose 471 H POC Glucose 379 H Hemoglobin A1c Lactic Acid Calcium 6.2 L Phosphorus Magnesium AST ALT Ammonia Troponin T Total Protein Albumin Triglycerides LDL Cholesterol Direct HDL Cholesterol Urine Creatinine Urine Total Protein 07/28/22 07/28/22 07/28/22 04:05 05:36 12:50 WBC 13.9 H RBC Hgb 11.2 L Hct MCV MCHC 31 L RDW 15.9 H Plt Count 48 L Wilson # (Auto) Seg Neutrophils % Seg Neuts % (Manual) Lymphocytes % (Manual) Seg Neutrophils # Seg Neutrophils # Man Lymphocytes # (Manual) ABG pH ABG pO2 ABG HCO3 ABG O2 Saturation ABG Base Excess ABG Hemoglobin Oxyhemoglobin Sodium Potassium Chloride Carbon Dioxide BUN Creatinine Glucose POC Glucose 390 H 399 H Hemoglobin A1c Lactic Acid Calcium Phosphorus Magnesium AST ALT Ammonia Troponin T Total Protein Albumin Triglycerides LDL Cholesterol Direct HDL Cholesterol Urine Creatinine Urine Total Protein 07/28/22 07/28/22 07/28/22 17:27 18:16 23:31 WBC RBC Hgb Hct MCV MCHC RDW Plt Count [place] # (Auto) Seg Neutrophils % Seg Neuts % (Manual) Lymphocytes % (Manual) Seg Neutrophils # Seg Neutrophils # Man Lymphocytes # (Manual) ABG pH ABG pO2 ABG HCO3 ABG O2 Saturation ABG Base Excess ABG Hemoglobin Oxyhemoglobin Sodium Potassium Chloride Carbon Dioxide BUN Creatinine Glucose POC Glucose 434 H 331 H Hemoglobin A1c Lactic Acid Calcium Phosphorus 2.00 L D Magnesium AST ALT Ammonia Troponin T Total Protein Albumin Triglycerides LDL Cholesterol Direct HDL Cholesterol Urine Creatinine Urine Total Protein 07/29/22 07/29/22 07/29/22 04:47 05:30 06:10 WBC RBC Hgb Hct MCV MCHC RDW Plt Count [place] # (Auto) Seg Neutrophils % Seg Neuts % (Manual) Lymphocytes % (Manual) Seg Neutrophils # Seg Neutrophils # Man Lymphocytes # (Manual) ABG pH 7.498 H ABG pO2 166.4 H ABG HCO3 16.2 L ABG O2 Saturation 99.1 H ABG Base Excess -5.4 L ABG Hemoglobin 10.7 L Oxyhemoglobin Sodium 151 H Potassium 3.5 L D Chloride 120.4 H Carbon Dioxide 17 L BUN 80 H Creatinine 2.8 H Glucose 303 H POC Glucose 261 H Hemoglobin A1c Lactic Acid Calcium 6.9 L Phosphorus Magnesium AST ALT Ammonia Troponin T Total Protein Albumin Triglycerides LDL Cholesterol Direct HDL Cholesterol Urine Creatinine Urine Total Protein 07/29/22 07/29/22 07/29/22 09:18 12:31 13:40 WBC 16.0 H RBC Hgb Hct MCV 96 H MCHC 30 L RDW 17.6 H Plt Count 84 L [place] # (Auto) Seg Neutrophils % Seg Neuts % (Manual) Lymphocytes % (Manual) Seg Neutrophils # Seg Neutrophils # Man Lymphocytes # (Manual) ABG pH ABG pO2 ABG HCO3 ABG O2 Saturation ABG Base Excess ABG Hemoglobin Oxyhemoglobin Sodium Potassium Chloride Carbon Dioxide BUN Creatinine Glucose POC Glucose 287 H 291 H Hemoglobin A1c Lactic Acid Calcium Phosphorus Magnesium AST ALT Ammonia Troponin T Total Protein Albumin Triglycerides LDL Cholesterol Direct HDL Cholesterol Urine Creatinine Urine Total Protein 07/29/22 07/29/22 07/30/22 17:19 23:57 04:25 WBC RBC Hgb Hct MCV MCHC RDW Plt Count [place] # (Auto) Seg Neutrophils % Seg Neuts % (Manual) Lymphocytes % (Manual) Seg Neutrophils # Seg Neutrophils # Man Lymphocytes # (Manual) ABG pH 7.461 H ABG pO2 123.0 H ABG HCO3 18.6 L ABG O2 Saturation ABG Base Excess -4.1 L ABG Hemoglobin 10.8 L Oxyhemoglobin Sodium Potassium Chloride Carbon Dioxide BUN Creatinine Glucose POC Glucose 272 H 205 H Hemoglobin A1c Lactic Acid Calcium Phosphorus Magnesium AST ALT Ammonia Troponin T Total Protein Albumin Triglycerides LDL Cholesterol Direct HDL Cholesterol Urine Creatinine Urine Total Protein 07/30/22 07/30/22 07/30/22 04:42 04:42 05:17 WBC RBC Hgb 11.1 L Hct 33.1 L D MCV MCHC RDW 16.0 H Plt Count 34 L [place] # (Auto) Seg Neutrophils % Seg Neuts % (Manual) Lymphocytes % (Manual) Seg Neutrophils # Seg Neutrophils # Man Lymphocytes # (Manual) ABG pH ABG pO2 ABG HCO3 ABG O2 Saturation ABG Base Excess ABG Hemoglobin Oxyhemoglobin Sodium 148 H Potassium 3.2 L Chloride 116.7 H Carbon Dioxide 18 L BUN 69 H Creatinine 2.0 H Glucose 197 H POC Glucose 185 H Hemoglobin A1c Lactic Acid Calcium 6.8 L Phosphorus 1.70 L Magnesium AST ALT Ammonia Troponin T Total Protein Albumin Triglycerides LDL Cholesterol Direct HDL Cholesterol Urine Creatinine Urine Total Protein 07/30/22 07/30/22 07/30/22 11:41 16:14 23:07 WBC RBC Hgb Hct MCV MCHC RDW Plt Count [place] # (Auto) Seg Neutrophils % Seg Neuts % (Manual) Lymphocytes % (Manual) Seg Neutrophils # Seg Neutrophils # Man Lymphocytes # (Manual) ABG pH ABG pO2 ABG HCO3 ABG O2 Saturation ABG Base Excess ABG Hemoglobin Oxyhemoglobin Sodium Potassium Chloride Carbon Dioxide BUN Creatinine Glucose POC Glucose 199 H 173 H 159 H Hemoglobin A1c Lactic Acid Calcium Phosphorus Magnesium AST ALT Ammonia Troponin T Total Protein Albumin Triglycerides LDL Cholesterol Direct HDL Cholesterol Urine Creatinine Urine Total Protein 07/31/22 07/31/22 07/31/22 03:25 04:00 04:13 WBC RBC Hgb 10.5 L Hct 32.8 L MCV MCHC RDW 15.3 H Plt Count 55 L [place] # (Auto) Seg Neutrophils % Seg Neuts % (Manual) Lymphocytes % (Manual) Seg Neutrophils # Seg Neutrophils # Man Lymphocytes # (Manual) ABG pH 7.513 H ABG pO2 64.1 L ABG HCO3 ABG O2 Saturation ABG Base Excess ABG Hemoglobin 10.5 L Oxyhemoglobin 93.8 L Sodium 146 H Potassium 3.4 L Chloride 112.5 H Carbon Dioxide 21 L BUN 53 H Creatinine 1.6 H Glucose 151 H POC Glucose Hemoglobin A1c Lactic Acid Calcium 6.4 L Phosphorus Magnesium AST ALT Ammonia Troponin T Total Protein Albumin Triglycerides LDL Cholesterol Direct HDL Cholesterol Urine Creatinine Urine Total Protein 07/31/22 07/31/22 07/31/22 05:39 11:08 16:11 WBC RBC Hgb Hct MCV MCHC RDW Plt Count [place] # (Auto) Seg Neutrophils % Seg Neuts % (Manual) Lymphocytes % (Manual) Seg Neutrophils # Seg Neutrophils # Man Lymphocytes # (Manual) ABG pH ABG pO2 ABG HCO3 ABG O2 Saturation ABG Base Excess ABG Hemoglobin Oxyhemoglobin Sodium Potassium Chloride Carbon Dioxide BUN Creatinine Glucose POC Glucose 155 H 132 H 150 H Hemoglobin A1c Lactic Acid Calcium Phosphorus Magnesium AST ALT Ammonia Troponin T Total Protein Albumin Triglycerides LDL Cholesterol Direct HDL Cholesterol Urine Creatinine Urine Total Protein 07/31/22 08/01/22 08/01/22 23:48 04:17 04:17 WBC RBC 3.62 L Hgb 10.6 L Hct 31.8 L MCV MCHC RDW 15.7 H Plt Count 90 L Wilson # (Auto) Seg Neutrophils % Seg Neuts % (Manual) Lymphocytes % (Manual) Seg Neutrophils # Seg Neutrophils # Man Lymphocytes # (Manual) ABG pH ABG pO2 ABG HCO3 ABG O2 Saturation ABG Base Excess ABG Hemoglobin Oxyhemoglobin Sodium 147 H Potassium 3.3 L Chloride 113.7 H Carbon Dioxide BUN 46 H Creatinine Glucose 141 H POC Glucose 133 H Hemoglobin A1c Lactic Acid Calcium 6.0 L Phosphorus 2.00 L Magnesium 1.50 L AST ALT Ammonia Troponin T Total Protein Albumin Triglycerides LDL Cholesterol Direct HDL Cholesterol Urine Creatinine Urine Total Protein 08/01/22 08/01/22 08/01/22 05:46 11:17 17:44 WBC RBC Hgb Hct MCV MCHC RDW Plt Count Wilson # (Auto) Seg Neutrophils % Seg Neuts % (Manual) Lymphocytes % (Manual) Seg Neutrophils # Seg Neutrophils # Man Lymphocytes # (Manual) ABG pH ABG pO2 ABG HCO3 ABG O2 Saturation ABG Base Excess ABG Hemoglobin Oxyhemoglobin Sodium Potassium Chloride Carbon Dioxide BUN Creatinine Glucose POC Glucose 116 H 190 H 179 H Hemoglobin A1c Lactic Acid Calcium Phosphorus Magnesium AST ALT Ammonia Troponin T Total Protein Albumin Triglycerides LDL Cholesterol Direct HDL Cholesterol Urine Creatinine Urine Total Protein 08/01/22 08/02/22 08/02/22 23:34 04:48 04:48 WBC RBC 3.61 L Hgb 10.2 L Hct 31.9 L MCV MCHC RDW 15.8 H Plt Count 130 L Wilson # (Auto) Seg Neutrophils % Seg Neuts % (Manual) Lymphocytes % (Manual) Seg Neutrophils # Seg Neutrophils # Man Lymphocytes # (Manual) ABG pH ABG pO2 ABG HCO3 ABG O2 Saturation ABG Base Excess ABG Hemoglobin Oxyhemoglobin Sodium 148 H Potassium 3.4 L Chloride 113.1 H Carbon Dioxide 16 L BUN 45 H Creatinine Glucose 213 H POC Glucose 193 H Hemoglobin A1c Lactic Acid Calcium 5.9 L* Phosphorus 2.30 L Magnesium AST ALT Ammonia Troponin T Total Protein Albumin Triglycerides LDL Cholesterol Direct HDL Cholesterol Urine Creatinine Urine Total Protein 08/02/22 08/02/22 08/02/22 05:38 23:04 23:30 WBC RBC Hgb Hct MCV MCHC RDW Plt Count Wilson # (Auto) Seg Neutrophils % Seg Neuts % (Manual) Lymphocytes % (Manual) Seg Neutrophils # Seg Neutrophils # Man Lymphocytes # (Manual) ABG pH ABG pO2 ABG HCO3 ABG O2 Saturation ABG Base Excess ABG Hemoglobin Oxyhemoglobin Sodium Potassium Chloride Carbon Dioxide BUN Creatinine Glucose POC Glucose 193 H 65 L 111 H Hemoglobin A1c Lactic Acid Calcium Phosphorus Magnesium AST ALT Ammonia Troponin T Total Protein Albumin Triglycerides LDL Cholesterol Direct HDL Cholesterol Urine Creatinine Urine Total Protein 08/03/22 08/03/22 08/03/22 03:35 04:40 04:40 WBC 12.7 H RBC 3.36 L Hgb 9.5 L Hct 29.8 L MCV MCHC RDW 15.7 H Plt Count Wilson # (Auto) Seg Neutrophils % Seg Neuts % (Manual) Lymphocytes % (Manual) Seg Neutrophils # Seg Neutrophils # Man Lymphocytes # (Manual) ABG pH 7.500 H ABG pO2 129.6 H ABG HCO3 ABG O2 Saturation ABG Base Excess ABG Hemoglobin 9.7 L Oxyhemoglobin Sodium Potassium 3.3 L Chloride 107.9 H Carbon Dioxide 21 L BUN 37 H Creatinine Glucose 111 H POC Glucose Hemoglobin A1c Lactic Acid Calcium 5.5 L* Phosphorus Magnesium 1.60 L AST ALT Ammonia Troponin T Total Protein Albumin Triglycerides LDL Cholesterol Direct HDL Cholesterol Urine Creatinine Urine Total Protein 08/03/22 08/03/22 08/04/22 05:24 17:18 00:17 WBC RBC Hgb Hct MCV MCHC RDW Plt Count Wilson # (Auto) Seg Neutrophils % Seg Neuts % (Manual) Lymphocytes % (Manual) Seg Neutrophils # Seg Neutrophils # Man Lymphocytes # (Manual) ABG pH ABG pO2 ABG HCO3 ABG O2 Saturation ABG Base Excess ABG Hemoglobin Oxyhemoglobin Sodium Potassium Chloride Carbon Dioxide BUN Creatinine Glucose POC Glucose 115 H 111 H 64 L Hemoglobin A1c Lactic Acid Calcium Phosphorus Magnesium AST ALT Ammonia Troponin T Total Protein Albumin Triglycerides LDL Cholesterol Direct HDL Cholesterol Urine Creatinine Urine Total Protein 08/04/22 08/04/22 08/04/22 04:39 04:39 05:36 WBC 14.2 H RBC 3.61 L Hgb 10.3 L Hct 31.2 L MCV MCHC RDW 15.4 H Plt Count Wilson # (Auto) Seg Neutrophils % Seg Neuts % (Manual) Lymphocytes % (Manual) Seg Neutrophils # Seg Neutrophils # Man Lymphocytes # (Manual) ABG pH ABG pO2 ABG HCO3 ABG O2 Saturation ABG Base Excess ABG Hemoglobin Oxyhemoglobin Sodium Potassium 3.1 L Chloride Carbon Dioxide 18 L BUN 30 H Creatinine Glucose 68 L POC Glucose 68 L Hemoglobin A1c Lactic Acid Calcium 6.1 L Phosphorus 2.00 L D Magnesium AST ALT Ammonia Troponin T Total Protein Albumin Triglycerides LDL Cholesterol Direct HDL Cholesterol Urine Creatinine Urine Total Protein 08/04/22 08/04/22 08/04/22 06:32 11:37 17:53 WBC RBC Hgb Hct MCV MCHC RDW Plt Count Wilson # (Auto) Seg Neutrophils % Seg Neuts % (Manual) Lymphocytes % (Manual) Seg Neutrophils # Seg Neutrophils # Man Lymphocytes # (Manual) ABG pH ABG pO2 ABG HCO3 ABG O2 Saturation ABG Base Excess ABG Hemoglobin Oxyhemoglobin Sodium Potassium Chloride Carbon Dioxide BUN Creatinine Glucose POC Glucose 110 H 118 H 171 H Hemoglobin A1c Lactic Acid Calcium Phosphorus Magnesium AST ALT Ammonia Troponin T Total Protein Albumin Triglycerides LDL Cholesterol Direct HDL Cholesterol Urine Creatinine Urine Total Protein 08/04/22 08/04/22 08/05/22 23:41 23:43 04:46 WBC 12.5 H RBC Hgb 10.8 L Hct 33.3 L MCV MCHC RDW 15.8 H Plt Count 138 L Wilson # (Auto) Seg Neutrophils % Seg Neuts % (Manual) Lymphocytes % (Manual) Seg Neutrophils # Seg Neutrophils # Man Lymphocytes # (Manual) ABG pH ABG pO2 ABG HCO3 ABG O2 Saturation ABG Base Excess ABG Hemoglobin Oxyhemoglobin Sodium Potassium Chloride Carbon Dioxide BUN Creatinine Glucose POC Glucose 226 H 218 H Hemoglobin A1c Lactic Acid Calcium Phosphorus Magnesium AST ALT Ammonia Troponin T Total Protein Albumin Triglycerides LDL Cholesterol Direct HDL Cholesterol Urine Creatinine Urine Total Protein 08/05/22 08/05/22 04:46 06:05 WBC RBC Hgb Hct MCV MCHC RDW Plt Count Wilson # (Auto) Seg Neutrophils % Seg Neuts % (Manual) Lymphocytes % (Manual) Seg Neutrophils # Seg Neutrophils # Man Lymphocytes # (Manual) ABG pH ABG pO2 ABG HCO3 ABG O2 Saturation ABG Base Excess ABG Hemoglobin Oxyhemoglobin Sodium Potassium Chloride Carbon Dioxide 16 L BUN 29 H Creatinine Glucose 179 H POC Glucose 220 H Hemoglobin A1c Lactic Acid Calcium 6.1 L Phosphorus Magnesium AST ALT Ammonia Troponin T Total Protein Albumin Triglycerides LDL Cholesterol Direct HDL Cholesterol Urine Creatinine Urine Total Protein
[2022-08-05] MEDS: INSULIN GLARGINE 100 UNITS/ML SUB-Q SCH (21:12)
[2022-08-06] MEDS: INSULIN REGULAR, HUMAN 100 UNITS/1 ML SUB-Q SCH ×3 (05:23→17:43)
[2022-08-06 06:29] LABS: Hematocrit 29.4 % (35.5-45.6); Hemoglobin 9.4 gm/dl (11.8-15.2); Mean Corpuscular HGB Conc 32 % (32-34); Mean Corpuscular Volume 88 fl (84-94); Platelet Count 212 K/mm3 (140-440); Red Blood Count 3.32 M/mm3 (3.65-5.03); Red Cell Distribution Width 15.6 % (13.2-15.2)
[2022-08-06 06:32] LABS: BUN/Creatinine Ratio 25; Blood Urea Nitrogen 25 mg/dL (9-20); Calcium 6.1 mg/dL (8.4-10.2); Hemolysis Index 23
--- NOTE | 2022-08-06 07:57 | Progress Note ---
Subjective Date of service: 08/06/22 Principal diagnosis: Hypernatremia, ARF Interval history: ID Plan of care note: 77-year-old male with history of diabetes mellitus, atrial fibrillation, hype rtension, CVA, initially admitted on 07/25/2022 due to altered mental status and hypoglycemia. In the emergency room, patient became altered with hypoxia and was intubated for airway protection. After intubation patient went into PEA arrest was achieved after 13 minutes. Initial temperature 98.2 101, HR 130, ALT 61, O2 sat 96 went down to 79%, BP 91/65. Initial WBC 18.8. Hemoglobin 18.8. Platelets 216. Urinalysis unremarkable x2. Ammonia 64. Patient was initially placed on Levophed and vasopressin as well as broad-spectrum antibiotics and stress dose of steroids. Patient remained on the ventilator underwent trach and PEG placement on 08/03/2022. By 08/05/2022 noted new fever 101.6 also take endotracheal secretions. Repeat chest x-ray shows bilateral lower lobe consolidations. 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 Sputum cultures grew Klebsiella pneumonia, completed course of cefepime. Thrombocytopenia, HIT panel negative, resolved. Blood cultures 07/25/2022 no growth. Sputum culture 07/25/2022 Klebsiella. Assement/Plan: SIRS/sepsis: Initially secondary to Klebsiella pneumonia. Now with new fever since 08/04/2022 associated with new blistering rash and increasing tracheal secretions, likely HAP +/- allergic reaction +/- central fever. Bilateral pneumonia: Initially grew Klebsiella treated with cefepime for 7 days on June 02, 2022. Chest x-ray with worsening pneumonia. Blistering rash: Extensive blistery rash in lower extremities and arms. ? Star Sumeet's vs skin soft tissue infection. CRP 21 Acute respiratory failure: Status post trach and PEG. On the ventilator. Encephalopathy/CVA: ? Hepatic encephalopathy FREDI resolved Recommendations: CBC with differential to evaluate eosinophilia Stop unnecessary drugs Skin biopsy may be necessary Treat for allergic reaction Follow-up repeat blood cultures Stop cefepime given blistering rash Start meropenem 1 g IV every 8 hours and vancomycin with PK consult for now MRSA PCR Franca Lyle MD Infectious Disease Relief Worker [facility] C: [phone] O: [phone] Objective - Constitutional Vitals: Vital Signs Temp Pulse Resp BP Pulse Ox 100.6 F H 98 H 21 161/77 95 08/06/22 07:19 08/06/22 06:00 08/06/22 06:00 08/06/22 06:00 08/06/22 06:00 Temperature -Last 24 Hours Temperature 100.6 F Temperature 100.2 F Temperature 100.2 F Temperature 99.5 F Temperature 98.7 F Temperature 98.1 F Temperature 99.4 F Temperature 101.6 F - Labs CBC & Chem 7: 08/06/22 05:20 08/06/22 05:20 Labs: Abnormal lab results 08/05/22 08/05/22 08/05/22 Range/Units 11:42 17:39 21:10 RBC (3.65-5.03) M/mm3 Hgb (11.8-15.2) gm/dl Hct (35.5-45.6) % RDW (13.2-15.2) % Chloride (98-107) mmol/L Carbon Dioxide (22-30) mmol/L BUN (9-20) mg/dL Glucose (75-100) mg/dL POC Glucose 180 H 207 H 185 H (70-105) mg/dL Calcium (8.4-10.2) mg/dL Phosphorus (2.5-4.5) mg/dL Magnesium (1.7-2.3) mg/dL C-Reactive Protein (0.00-1.30) mg/dL 08/05/22 08/05/22 08/06/22 Range/Units 21:43 23:38 05:13 RBC (3.65-5.03) M/mm3 Hgb (11.8-15.2) gm/dl Hct (35.5-45.6) % RDW (13.2-15.2) % Chloride (98-107) mmol/L Carbon Dioxide (22-30) mmol/L BUN (9-20) mg/dL Glucose (75-100) mg/dL POC Glucose 198 H 182 H (70-105) mg/dL Calcium (8.4-10.2) mg/dL Phosphorus (2.5-4.5) mg/dL Magnesium (1.7-2.3) mg/dL C-Reactive Protein 21.50 H (0.00-1.30) mg/dL 08/06/22 08/06/22 Range/Units 05:20 05:20 RBC 3.32 L (3.65-5.03) M/mm3 Hgb 9.4 L (11.8-15.2) gm/dl Hct 29.4 L (35.5-45.6) % RDW 15.6 H (13.2-15.2) % Chloride 107.2 H (98-107) mmol/L Carbon Dioxide 21 L (22-30) mmol/L BUN 25 H (9-20) mg/dL Glucose 176 H (75-100) mg/dL POC Glucose (70-105) mg/dL Calcium 6.1 L (8.4-10.2) mg/dL Phosphorus 1.80 L D (2.5-4.5) mg/dL Magnesium 1.60 L (1.7-2.3) mg/dL C-Reactive Protein (0.00-1.30) mg/dL
[2022-08-06] MEDS: SODIUM BICARBONATE 650 MG TAB FEEDTUBE SCH ×3 (08:46→20:17)
[2022-08-06] MEDS ORDERED: VANCOMYCIN PHARMACY TO DOSE IV SCH (09:00)
[2022-08-06] MEDS: ACETAMINOPHEN 325 MG TAB PO PRN ×2 (09:13→20:18)
[2022-08-06] MEDS: FAMOTIDINE 10 MG TAB FEEDTUBE SCH ×2 (09:13→21:43)
[2022-08-06] MEDS: AMIODARONE 200 MG TAB FEEDTUBE SCH ×2 (09:13→21:43)
[2022-08-06] MEDS ORDERED: MAGNESIUM SULFATE 4 GM/100 ML BAG IV ONE (10:00)
[2022-08-06] MEDS ORDERED: ENOXAPARIN 30 MG/0.3 ML INJ SUB-Q SCH (10:00)
[2022-08-06] MEDS ORDERED: VANCOMYCIN/NS 1 GM/250 ML 1 GM/250 ML BAG IV ONE (10:00)
[2022-08-06] MEDS: ENOXAPARIN 40 MG/0.4 ML INJ SUB-Q SCH (10:14)
[2022-08-06] MEDS: MEROPENEM/NS 1 GRAM/100 ML 1 GRAM/100 ML BAG IV SCH ×2 (10:45→17:44)
[2022-08-06] MEDS: K-PHOS NEUTRAL 250 MG TAB PO SCH ×4 (10:45→21:40)
--- NOTE | 2022-08-06 11:41 | Progress Note ---
<DENNY ARNOLD - Last Filed: 08/06/22 15:21> Assessment and Plan Assessment and plan: This is a 77-year-old male from a SNF facility with known past medical history of DM, paroxysmal atrial fibrillation, HTN, and CVA (2020) initially presented with AMS and Hyperglycemia. While in the ED, patient became obtunded with hyp oxia and was intubated for airway protection. Post intubation patient PEA arrested and ROSC was achieved after approximately 13 minutes. Hospital Course to Date: 07/26: Patient is on any sedation, very sluggish pupillary response, no cough/gag noted, no seizure activity. Neurology recs repeat CT head without contrast or MRI brain without contrast when clinically stable. Patient also had a EEG completed today. Patient is currently maxed on Levophed and vasopressin. Given several LR boluses today. Antibiotics broadened and stress dose steroids added. 07/27: Weaning pressors, phosphorus repleted, SSI and long-acting insulin initiated, tube feeding initiated. Patient now has a hypoactive cough/gag. CT head pending. LR bolus. Thrombocytopenia noted. Cardiology would like to start heparin drip due to atrial fibrillation however would like neurology input prior to. 07/28: Patient remains off of vasopressors, patient had MRI today. Worsening renal function noted. Cardiology will hold off amiodarone due to thrombocytopenia. No acute events reported overnight. 07/29: I had an extensive conversation with son and at bedside to with the help of an park interpreter through the heading matcher and assembler line. Explained thoroughly of presentation to the ED from documentation, cardiac arrest, CT head and MRI brain findings. They are still electing to continue aggressive care and would like hospital assistance with getting a visa for youngest son to come to the [facility] from [place]. senior research project manager is aware of request. Steroid taper started. CBC pending. Will be repleted. Hypernatremia improving. 07/30: LR bolus, renal function is improved, thrombocytopenia worse. Likely consult surgery for trach/peg as per family requests to continue care. No acute events overnight. 07/31: Patient's mentation is unchanged. Remains on low vent setting. D/w [facility] general surgery consulted for possible trach and PEG. Renal function is improving, still hypenatremic, continue FWF per Nephrology. K repleted, continue to - Monitor and replace electrolytes as needed. Patient remains in SR on the monitor, VSS. Amiodarone gtt transitioned to PO amio per Cardio. 08/01: Condition unchanged, remains stable on low vent setting. Renal function continue to improve with persistent hypernatremia, continue FWF per Nephro. General Surgery recommendations noted. D/w General surgery, plan for possible trach and PEG exchange tomorrow or . 08/02: Remains stable on low vent settings. NPO since after midnight for possible trach/PEG today by General Surgery. Patient remains hypernatremic and due to NPO status, FWF was held. Will initiated low dose D5W gtt for now. And also to prevent hypoglycemia while NPO, patient is on Lantus BID. Currently on steroids taper, will hold tonight does and reduce Lantus to Qhs starting tomorrow. Close monitoring of BG and electrolytes. Nephrology is also following. 08/03: S/p trach and PEG exchange. Remains stable on the vent with no complications. Tolerating TF and also Tolerated 2hrs of PSV trial this am. Continue to taper IV steroids, qhs Lantus adjusted to avoid hypoglycemia. Hypernatremia improved, continue FWF per Nephro. Possible LTAC placement, case management to arrange. 08/04: ABRAM overnight. Sodium normalized this morning, electrolytes repleted, continue to monitor and replace electrolytes as needed. Nephrology is also following. Hypoglycemic overnight, TF not yet at goal, will hold Lantus for now. Continue daily PSV trial as tolerated. Possible LTAC placement, case management to arrange. 08/05: Now with thick secretions orally and via ETT, with persistent fevers. This am CXR suggesting possible developing lower lobe PNA. VSS. Will panculture and initiate empiric IV abx- Cefepine. Check CRP and procal. Remove Yañez catheter and follow Yañez removal protocol. ID was also consulted for further recs. TF is now at goal, hyperglycemic today, will resume qhs Lantus. Hyponatremia resolved, FWF adjusted. 08/06: Remains stable on low vent settings. Still with low grade fevers, procal and repeat cultures pending. ID recommendations noted. C/f for possible allergic reaction vs skin infection due to persistent skin blisters. Cefepine switched to Merrem and Vanco. Check CBC with Diff, continue to follow up on cultures. Neuro: Acute metabolic encephalopathy, hepatic encephalopathy, r/o ALEC and subclinical status epilepticus, h/o CVA (2019) -Sluggish pupils, no cough/gag, periodic spontaneous respiration -Neurology consulted, appreciate recommendations -Initial CT head with no acute abnormality -Repeat CT head without contrast of preferably MRI brain without contrast when clinically stable -EEG completed -Per neurology aim for euglycemia and permissive hypertension for now -Ammonia 64 -MRI brain shows diffuse diffusion abnormality involving cerebral and cerebellum compatible with diffuse hypoxia given the patient's history, interval evolving of left [employer] infarct from 02/16/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 Cardiac: S/p cardiac arrest, A. fib RVR, h/o hypertension, paroxysmal atrial fibrillation, hyperlipidemia -Patient suffered cardiac arrest on 07/25 in the ED and then was noted to be in A. fib with RVR -Amiodarone PO -Cardiology consulted, appreciate recommendations -Blood pressure monitoring per protocol -S/p vasopressor support with Levophed and vasopressin -MAP goal greater than 65 -Echocardiogram shows EF 50 to 60%, no pericardial effusion -Lipitor Respiratory: Acute hypoxic respiratory failure -CCM consulted, appreciate recommendations -Intubated on 07/25 with a 8.00 ETT in the ED -08/02 s/p Trach and PEG exchange -A.m. vent settings: PRVC-30%,6,14,400 -See RT notes for titration -A.m. ABG and CXR noted -VAP bundle -SPO2 monitoring GI: Protein calorie malnutrition -Enteral Nutrition initiated -08/02 S/p PEG-Tube placement -NTR consult for tube feeding -PPI : Hypernatremia, metabolic acidosis, acute kidney injury likely secondary to vasomotor nephropathy, hypokalemia, hypophosphatemia -S/p 4 L LR bolus -Nephrology consulted, appreciate recommendations -Serum creatinine 03/08/2020 was 1.3, Scr. back to baseline at 1.3 today -Monitor intake and output -Renally dose medications -Avoid nephrotoxic medications -Renal ultrasound noted -KPhos IV -Trend BMP ID: Sepsis, Klebsiella pneumonia -Hypotension, acute kidney injury, acute respiratory failure, lactic acidosis -Antibiotic completed IV abx course -Febrile, cultures and procal pending -ID recommendations noted. C/f for possible allergic reaction vs skin infection due to persistent skin blisters. -Cefepine switched to Merrem and Vanco. -Check CBC with Diff, continue to follow up on cultures. -Monitor WBC and temperature curve Endo: h/o DM s/p DKA -Presented with anion gap of 21, glucose of 761, VBG 7.362 -s/p Insulin drip -Accu-Cheks q6hr -SSI -Long-acting insulin when able -Hemaglobin A1C 12.3 Heme: Thrombocytopenia-improved -Hematology consulted -HIT panel negative -Trend CBC -Transfuse hemoglobin less than 7 -SCDs to BLE while in bed -Lovenox SubQ The high probability of a clinically significant, sudden or life threatening deterioration of the [multi] system(s) required my full and direct attention, intervention and personal management. The aggregate critical care time was [60] minutes. This time is in addition to time spent performing reported procedures but includes the following: [x] Data Review and interpretation [x] Patient assessment and monitoring of vital signs [x] Documentation [x] Medication orders and management Disposition Plan: ICU Total Time Spent with Patient (Minutes): 60 History Interval history: Patient seen and examined at the bedside. Mentation unchanged, remains on the vent. Still with low grade fevers, ST on the monitor this am, VSS. Hospitalist Physical - Physical exam Narrative exam: General appearance: Present: other (Trached, on the vent, and unresponsive) - EENT Eyes: Present: irregular pupil, mydriasis - Respiratory Respiratory effort: normal Respiratory: bilateral: rhonchi - Cardiovascular Rhythm: regular Heart Sounds: Present: S1 & S2 - Extremities Extremities: no ischemia, pulses intact, pulses symmetrical Extremity abnormal: edema - Peripheral Assessment Generalized Edema Type: Non-pitting Edema Degree: 2+ Capillary Refill: < 3 seconds Skin Temperature: Warm Peripheral Pulses: within normal limits - Abdominal General gastrointestinal: soft, non-distended, normal bowel sounds - Integumentary Integumentary: Present: warm, dry - Psychiatric Psychiatric: other (on the vent and unresponsive) - Neurologic Neurologic: other (On the vent and unresponsive) - Allied Health Allied health notes reviewed: nursing, case management - Constitutional Vitals: Temp Pulse Resp BP Pulse Ox 100.6 F H 85 21 107/52 94 08/06/22 08:00 08/06/22 11:00 08/06/22 11:00 08/06/22 11:00 08/06/22 10:00 HEART Score - HEART Score Troponin: Troponin T 0.049 ng/mL (0.00-0.029) H D 07/26/22 15:36 Results - Labs CBC & Chem 7: 08/06/22 05:20 08/06/22 05:20 Labs: Laboratory Last Values WBC 8.2 K/mm3 (4.5-11.0) 08/06/22 05:20 RBC 3.32 M/mm3 (3.65-5.03) L 08/06/22 05:20 Hgb 9.4 gm/dl (11.8-15.2) L 08/06/22 05:20 Hct 29.4 % (35.5-45.6) L 08/06/22 05:20 MCV 88 fl (84-94) 08/06/22 05:20 MCH 28 pg (28-32) 08/06/22 05:20 MCHC 32 % (32-34) 08/06/22 05:20 RDW 15.6 % (13.2-15.2) H 08/06/22 05:20 Plt Count 212 K/mm3 (140-440) 08/06/22 05:20 Lymph % (Auto) 21.7 % (13.4-35.0) 07/25/22 19:37 [place] % (Auto) 7.3 % (0.0-7.3) 07/25/22 19:37 Eos % (Auto) 0.0 % (0.0-4.3) 07/25/22 19:37 Baso % (Auto) 0.3 % (0.0-1.8) 07/25/22 19:37 Lymph # (Auto) 4.1 K/mm3 (1.2-5.4) 07/25/22 19:37 [place] # (Auto) 1.4 K/mm3 (0.0-0.8) H 07/25/22 19:37 Eos # (Auto) 0.0 K/mm3 (0.0-0.4) 07/25/22 19:37 Baso # (Auto) 0.1 K/mm3 (0.0-0.1) 07/25/22 19:37 Add Manual Diff Complete 07/27/22 03:50 Total Counted 100 07/27/22 03:50 Seg Neutrophils % 70.7 % (40.0-70.0) H 07/25/22 19:37 Seg Neuts % (Manual) 78.0 % (40.0-70.0) H 07/27/22 03:50 Band Neutrophils % 16.0 % 07/27/22 03:50 Lymphocytes % (Manual) 3.0 % (13.4-35.0) L 07/27/22 03:50 Reactive Lymphs % (Man) 0 % 07/27/22 03:50 Monocytes % (Manual) 2.0 % (0.0-7.3) 07/27/22 03:50 Eosinophils % (Manual) 0 % (0.0-4.3) 07/27/22 03:50 Basophils % (Manual) 0 % (0.0-1.8) 07/27/22 03:50 Metamyelocytes % 1.0 % 07/27/22 03:50 Myelocytes % 0 % 07/27/22 03:50 Promyelocytes % 0 % 07/27/22 03:50 Blast Cells % 0 % 07/27/22 03:50 Nucleated RBC % Not Reportable 07/27/22 03:50 Seg Neutrophils # 13.3 K/mm3 (1.8-7.7) H 07/25/22 19:37 Seg Neutrophils # Man 12.0 K/mm3 (1.8-7.7) H 07/27/22 03:50 Band Neutrophils # 2.5 K/mm3 07/27/22 03:50 Lymphocytes # (Manual) 0.5 K/mm3 (1.2-5.4) L 07/27/22 03:50 Abs React Lymphs (Man) 0.0 K/mm3 07/27/22 03:50 Monocytes # (Manual) 0.3 K/mm3 (0.0-0.8) 07/27/22 03:50 Eosinophils # (Manual) 0.0 K/mm3 (0.0-0.4) 07/27/22 03:50 Basophils # (Manual) 0.0 K/mm3 (0.0-0.1) 07/27/22 03:50 Metamyelocytes # 0.2 K/mm3 07/27/22 03:50 Myelocytes # 0.0 K/mm3 07/27/22 03:50 Promyelocytes # 0.0 K/mm3 07/27/22 03:50 Blast Cells # 0.0 K/mm3 07/27/22 03:50 WBC Morphology Not Reportable 07/27/22 03:50 Hypersegmented Neuts Not Reportable 07/27/22 03:50 Hyposegmented Neuts Not Reportable 07/27/22 03:50 Hypogranular Neuts Not Reportable 07/27/22 03:50 Smudge Cells Not Reportable 07/27/22 03:50 Toxic Granulation Not Reportable 07/27/22 03:50 Toxic Vacuolation Not Reportable 07/27/22 03:50 Dohle Bodies Not Reportable 07/27/22 03:50 Pelger-Huet Anomaly Not Reportable 07/27/22 03:50 Jay Rods Not Reportable 07/27/22 03:50 Platelet Estimate Consistent w auto 07/27/22 03:50 Clumped Platelets Not Reportable 07/27/22 03:50 Plt Clumps, EDTA Not Reportable 07/27/22 03:50 Large Platelets Not Reportable 07/27/22 03:50 Giant Platelets Not Reportable 07/27/22 03:50 Platelet Satelliting Not Reportable 07/27/22 03:50 Plt Morphology Comment Not Reportable 07/27/22 03:50 RBC Morphology Not Reportable 07/27/22 03:50 Dimorphic RBCs Not Reportable 07/27/22 03:50 Polychromasia Not Reportable 07/27/22 03:50 Hypochromasia Not Reportable 07/27/22 03:50 Poikilocytosis Not Reportable 07/27/22 03:50 Anisocytosis Not Reportable 07/27/22 03:50 Microcytosis Not Reportable 07/27/22 03:50 Macrocytosis Not Reportable 07/27/22 03:50 Spherocytes Not Reportable 07/27/22 03:50 Pappenheimer Bodies Not Reportable 07/27/22 03:50 Sickle Cells Not Reportable 07/27/22 03:50 Target Cells Not Reportable 07/27/22 03:50 Tear Drop Cells Not Reportable 07/27/22 03:50 Ovalocytes Not Reportable 07/27/22 03:50 Helmet Cells Not Reportable 07/27/22 03:50 [place] Bodies Not Reportable 07/27/22 03:50 [place] Rings Not Reportable 07/27/22 03:50 [place] Cells Not Reportable 07/27/22 03:50 Bite Cells Not Reportable 07/27/22 03:50 Crenated Cell Not Reportable 07/27/22 03:50 Elliptocytes Not Reportable 07/27/22 03:50 Acanthocytes (Spur) Not Reportable 07/27/22 03:50 Rouleaux Not Reportable 07/27/22 03:50 Hemoglobin C Crystals Not Reportable 07/27/22 03:50 Schistocytes Not Reportable 07/27/22 03:50 Malaria parasites Not Reportable 07/27/22 03:50 [place] Bodies Not Reportable 07/27/22 03:50 Hem Pathologist Commnt No 07/27/22 03:50 PT 14.3 Sec. (12.2-14.9) 07/31/22 04:13 INR 0.97 (0.87-1.13) 07/31/22 04:13 Heparin Anti-Xa, Unfract Negative (Negative) 08/01/22 04:17 ABG pH 7.500 pH Units (7.350-7.450) H 08/03/22 03:35 ABG pCO2 26.7 mm Hg 08/03/22 03:35 ABG pO2 129.6 mm Hg (80.0-90.0) H 08/03/22 03:35 ABG HCO3 20.4 mmol/L (20.0-26.0) 08/03/22 03:35 ABG O2 Saturation 98.7 % (95.0-99.0) 08/03/22 03:35 ABG O2 Content 13.5 (0.0-44) 08/03/22 03:35 ABG Base Excess -2.0 mmol/L (-2.0-3.0) 08/03/22 03:35 ABG Hemoglobin 9.7 gm/dl (14.0-18.0) L 08/03/22 03:35 ABG Carboxyhemoglobin 1.5 % (0.0-5.0) 08/03/22 03:35 ABG Methemoglobin 0.4 % (0.0-1.5) 08/03/22 03:35 VBG pH 7.362 (7.320-7.420) 07/25/22 19:37 Oxyhemoglobin 96.8 % (95.0-99.0) 08/03/22 03:35 FiO2 30 % 08/03/22 03:35 Sodium 140 mmol/L (137-145) 08/06/22 05:20 Potassium 3.6 mmol/L (3.6-5.0) 08/06/22 05:20 Chloride 107.2 mmol/L (98-107) H 08/06/22 05:20 Carbon Dioxide 21 mmol/L (22-30) L 08/06/22 05:20 Anion Gap 15 mmol/L 08/06/22 05:20 BUN 25 mg/dL (9-20) H 08/06/22 05:20 Creatinine 1.0 mg/dL (0.8-1.3) 08/06/22 05:20 Estimated GFR > 60 ml/min 08/06/22 05:20 BUN/Creatinine Ratio 25 % 08/06/22 05:20 Glucose 176 mg/dL (75-100) H 08/06/22 05:20 POC Glucose 182 mg/dL (70-105) H 08/06/22 05:13 Hemoglobin A1c 12.3 % (4-6) H 07/27/22 12:13 Lactic Acid 9.70 mmol/L (0.7-2.0) H* 07/26/22 15:36 Calcium 6.1 mg/dL (8.4-10.2) L 08/06/22 05:20 Phosphorus 1.80 mg/dL (2.5-4.5) L D 08/06/22 05:20 Magnesium 1.60 mg/dL (1.7-2.3) L 08/06/22 05:20 Total Bilirubin 0.30 mg/dL (0.1-1.2) 07/27/22 03:50 AST 64 units/L (5-40) H 07/27/22 03:50 ALT 31 units/L (7-56) 07/27/22 03:50 Alkaline Phosphatase 61 units/L (35-129) 07/27/22 03:50 Ammonia 64.0 umol/L (25-60) H 07/25/22 19:37 Total Creatine Kinase 158 units/L (55-170) 07/25/22 19:37 CK-MB (CK-2) < 1.0 ng/mL (0.0-4.0) 07/25/22 19:37 CK-MB (CK-2) Rel Index 0.6 (0-4) 07/25/22 19:37 Troponin T 0.049 ng/mL (0.00-0.029) H D 07/26/22 15:36 C-Reactive Protein 21.50 mg/dL (0.00-1.30) H 08/05/22 21:43 Total Protein 4.1 g/dL (6.3-8.2) L D 07/27/22 03:50 Albumin 2.1 g/dL (3.9-5) L 07/27/22 03:50 Albumin/Globulin Ratio 1.1 % 07/27/22 03:50 Triglycerides 362 mg/dL (2-149) H 07/25/22 19:37 Cholesterol 126 mg/dL (50-199) 07/25/22 19:37 LDL Cholesterol Direct 44 mg/dL (50-130) L 07/25/22 19:37 HDL Cholesterol 34 mg/dL (40-59) L 07/25/22 19:37 Cholesterol/HDL Ratio 3.70 % 07/25/22 19:37 Serotonin Release Assay See scanned result 08/01/22 04:17 TSH 2.170 mlU/mL (0.270-4.200) 07/25/22 19:37 Free T4 1.18 ng/dL (0.76-1.46) 07/25/22 19:37 Urine Color Lin (Yellow) 08/05/22 11:00 Urine Turbidity Cloudy (Clear) 08/05/22 11:00 Specific [place] (Man) 1.017 (1.003-1.030) 08/05/22 11:00 Ur Protein (Man) 2+ mg/dL (Negative) 08/05/22 11:00 Ur Ketones (Man) Negative (Negative) 08/05/22 11:00 Ur Nitrite (Man) Negative (Negative) 08/05/22 11:00 Ur Reducing Substances Not Reportable 07/26/22 08:31 Urine Bilirubin (Man) Negative (Negative) 08/05/22 11:00 Urine Ictotest Not Reportable 08/05/22 11:00 Leukocyte Esterase (Man) Negative (Negative) 08/05/22 11:00 Urine WBC (Auto) 6.0 /HPF (0.0-6.0) 08/05/22 11:00 Urine RBC (Auto) 6.0 /HPF (0.0-6.0) 08/05/22 11:00 U Epithel Cells (Auto) 1.0 /HPF (0-13.0) 08/05/22 11:00 Urine Bacteria (Auto) 1+ /HPF (Negative) 08/05/22 11:00 Urine RBC (Manual) 4+ (Negative) 08/05/22 11:00 Ur Renal Epithelial Cell 3 /LPF 07/26/22 08:31 Uric Acid Crystals Few 08/05/22 11:00 Amorphous Crystals Few 08/05/22 11:00 Urine Mucus Few /HPF 08/05/22 11:00 Urine Creatinine 118.4 mg/dL (0.1-20.0) H 07/26/22 18:10 Protein/Creatinin Ratio 1.23 07/26/22 18:10 Urine Sodium 108 mmol/L 07/26/22 18:10 Urine Total Protein 146 mg/dL (5-11.8) H 07/26/22 18:10 Heparin-induced Plt Ab Negative (Negative) 08/01/22 04:17 UF Heparin High Dose 0 % Release 08/01/22 04:17 SU UFH Low Dose 0.1 0 % Release 08/01/22 04:17 SU UFH Low Dose 0.5 0 % Release 08/01/22 04:17 Microbiology: Microbiology 08/05/22 21:56 Peripheral/Venous Blood Culture - Preliminary Culture in Progress 08/05/22 21:43 Peripheral/Venous Blood Culture - Preliminary Culture in Progress Yañez/IV: Voiding Method Condom Catheter Active Medications - Current Medications Current Medications: Generic Name Dose Route Start Last Admin Trade Name Freq PRN Reason Stop Dose Admin Acetaminophen 650 mg 07/26/22 00:31 08/06/22 09:13 Acetaminophen 325 Mg Tab PO 650 mg Q4H PRN Administration Pain MILD(1-3)/Fever >100.5/LANTIGUA Acetaminophen 650 mg 07/26/22 02:04 Acetaminophen 650 Mg Rect Supp NE Q4H PRN Pain, Mild (1-3) Albuterol 2.5 mg 07/26/22 00:31 Albuterol 2.5 Mg/3 Ml Nebu IH Q3HRT PRN Shortness Of Breath Amiodarone HCl 200 mg 08/04/22 11:00 08/06/22 09:13 Amiodarone 200 Mg Tab FEEDTUBE 200 mg BID LIZZIE Administration Atorvastatin Calcium 40 mg 08/04/22 22:00 08/05/22 21:13 Atorvastatin 40 Mg Tab FEEDTUBE 40 mg QHS LIZZIE Administration Dextrose 50 ml 07/27/22 09:25 08/04/22 06:03 Dextrose 50% In Water (25gm) 50 Ml Syringe IV 50 ml Q30MIN PRN Administration Hypoglycemia Protocol Enoxaparin Sodium 40 mg 08/06/22 10:00 08/06/22 10:14 Enoxaparin 40 Mg/0.4 Ml Inj SUB-Q 40 mg QDAY@1000 LIZZIE Administration Famotidine 10 mg 07/28/22 10:00 08/06/22 09:13 Famotidine 10 Mg Tab FEEDTUBE 10 mg BID LIZZIE Administration Meropenem/Sodium Chloride 1 gram in 100 mls @ 100 mls/hr 08/06/22 10:00 08/06/22 10:45 Merrem/Ns 1 Gram/100 Ml IV 100 mls/hr Q8H [facility] Administration Protocol Magnesium Sulfate 4 gm in 100 mls @ 25 mls/hr 08/06/22 10:00 08/06/22 10:15 Magnesium Sulfate 4gm/100ml IV 08/06/22 13:59 25 mls/hr ONCE ONE Administration Vancomycin HCl 750 mg/ Sodium 265 mls @ 176.667 mls/hr 08/07/22 10:00 Chloride IV Q24H [facility] Insulin Glargine 10 units 08/05/22 22:00 08/05/22 21:12 Insulin Glargine 100 Units/Ml SUB-Q 10 units QHS [facility] Administration Insulin Human Regular 0 units 07/27/22 12:00 08/06/22 05:23 Insulin Regular, Human 100 Units/1 Ml SUB-Q 3 units Q6H [facility] Administration Protocol Multi-Ingred Cream/Lotion/Oil/Oint 1 applic 07/27/22 03:17 07/27/22 03:35 Mineral Oil/Petrolatum, White Ophth Oint 3.5 Gm OU 1 applic PRN PRN Administration Dry Eye(s) Nitroglycerin 0.4 mg 07/26/22 00:31 Nitroglycerin 0.4 Mg Tab Subl SL Q5M PRN Chest Pain Ondansetron HCl 4 mg 07/26/22 00:31 Ondansetron 4 Mg/2 Ml Inj IV Q8H PRN Nausea And Vomiting Sodium Bicarbonate 650 mg 08/04/22 14:00 08/06/22 08:46 Sodium Bicarbonate 650 Mg Tab FEEDTUBE 650 mg TID LIZZIE Administration Sodium Chloride 10 ml 07/26/22 10:00 08/06/22 10:15 Sodium Chloride 0.9% 10 Ml Flush Syringe IV 10 ml BID LIZZIE Administration Sodium Chloride 10 ml 07/26/22 00:31 Sodium Chloride 0.9% 10 Ml Flush Syringe IV PRN PRN LINE FLUSH Sodium Phosphate 250 mg 08/06/22 10:00 08/06/22 10:45 K-Phos Neutral 250 Mg Tab PO 08/06/22 22:01 250 mg QID LIZZIE Administration Nutrition/Malnutrition Assess - Dietary Evaluation Nutrition/Malnutrition Findings: Nutrition Notes Start: 07/26/22 10:25 Freq: Status: Active Protocol: Document 07/31/22 14:58 [facility] (Rec: 07/31/22 15:04 [facility] [id number]) Nutrition Notes Initial or Follow up Reassessment Current Diagnosis Acute Kidney Injury,Diabetes, Hypertension,Respiratory Failure,Hyperlipidemia Other Pertinent Diagnosis s/p cardiac arrest, s/p DKA, acute metabolic encephalopathy Current Diet TF - Glucerna 1.2 at 45ml/hr Labs/Tests Na 146 K 3.4 BUN 53 Cr 1.6 BG 151 Pertinent Medications 40mEq KCl Height 5 ft 5 in Weight 49.8 kg [place] Body Weight (kg) 61.81 BMI 18.2 Subjective/Other Information Observed Glucerna 1.2 infusing at goal rate; pt tolerating TF. ordered 250ml water flush q4h. Pt remains on vent support; renal function improving. Percent of energy/protein needs met: 93% energy 100% pro Burn Absent Trauma Absent #1 Nutrition Diagnosis Inadequate oral intake Diagnosis Progress(for reassessment Continues documentation) Is patient on ventilator? Yes Is Patient Ambulatory and/or Out of Bed No REE-([facility]-confined to bed) [phone] Calculation Used for Recommendations Thanh Garcia Additional Notes Pro needs 0.8-1.2g/k-60g/ day Fluid needs per MD. Nutrition Intervention Nutrition Support: Continue Glucerna 1.2 at 45ml/ hr with 250ml water flush q4h until hypernatremia resolved. Kcal 1,296 Protein (gm) 65 Carbohydrates (gm) 124 Fat (gm) 65 Fluid (mL) 869 Fiber (gm) 17 Goal #1 TF tolerance Goal #2 TF to provide at least 75% energy and pro needs Follow-Up By: 08/07/22 Additional Comments F/U: stable TF, trach/PEG placement, vent status, renal function, BM <DASHA DOWNING - Last Filed: 08/07/22 07:17> Assessment and Plan Assessment and plan: I saw and evaluated the patient. I agree with the findings and the plan of care as documented in the Nurse Practitioner's~note, with the following corrections and additions. Hospitalist Physical - Constitutional Vitals: Temp Pulse Resp BP Pulse Ox 100.5 F H 95 H 30 H 156/76 97 08/07/22 00:20 08/07/22 06:00 08/07/22 06:00 08/07/22 06:00 08/07/22 06:00 HEART Score - HEART Score Troponin: Troponin T 0.049 ng/mL (0.00-0.029) H D 07/26/22 15:36 Results - Labs CBC & Chem 7: 08/07/22 04:16 08/07/22 04:16 Labs: Laboratory Last Values WBC 8.5 K/mm3 (4.5-11.0) 08/07/22 04:16 RBC 3.12 M/mm3 (3.65-5.03) L 08/07/22 04:16 Hgb 8.8 gm/dl (11.8-15.2) L 08/07/22 04:16 Hct 27.4 % (35.5-45.6) L 08/07/22 04:16 MCV 88 fl (84-94) 08/07/22 04:16 MCH 28 pg (28-32) 08/07/22 04:16 MCHC 32 % (32-34) 08/07/22 04:16 RDW 15.4 % (13.2-15.2) H 08/07/22 04:16 Plt Count 215 K/mm3 (140-440) 08/07/22 04:16 Lymph % (Auto) 10.6 % (13.4-35.0) L 08/07/22 04:16 [place] % (Auto) 5.4 % (0.0-7.3) 08/07/22 04:16 Eos % (Auto) 0.7 % (0.0-4.3) 08/07/22 04:16 Baso % (Auto) 0.2 % (0.0-1.8) 08/07/22 04:16 Lymph # (Auto) 0.9 K/mm3 (1.2-5.4) L 08/07/22 04:16 [place] # (Auto) 0.4 K/mm3 (0.0-0.8) 08/07/22 04:16 Eos # (Auto) 0.1 K/mm3 (0.0-0.4) 08/07/22 04:16 Baso # (Auto) 0.0 K/mm3 (0.0-0.1) 08/07/22 04:16 Add Manual Diff Complete 07/27/22 03:50 Total Counted 100 07/27/22 03:50 Seg Neutrophils % 83.1 % (40.0-70.0) H 08/07/22 04:16 Seg Neuts % (Manual) 78.0 % (40.0-70.0) H 07/27/22 03:50 Band Neutrophils % 16.0 % 07/27/22 03:50 Lymphocytes % (Manual) 3.0 % (13.4-35.0) L 07/27/22 03:50 Reactive Lymphs % (Man) 0 % 07/27/22 03:50 Monocytes % (Manual) 2.0 % (0.0-7.3) 07/27/22 03:50 Eosinophils % (Manual) 0 % (0.0-4.3) 07/27/22 03:50 Basophils % (Manual) 0 % (0.0-1.8) 07/27/22 03:50 Metamyelocytes % 1.0 % 07/27/22 03:50 Myelocytes % 0 % 07/27/22 03:50 Promyelocytes % 0 % 07/27/22 03:50 Blast Cells % 0 % 07/27/22 03:50 Nucleated RBC % Not Reportable 07/27/22 03:50 Seg Neutrophils # 6.7 K/mm3 (1.8-7.7) 08/07/22 04:16 Seg Neutrophils # Man 12.0 K/mm3 (1.8-7.7) H 07/27/22 03:50 Band Neutrophils # 2.5 K/mm3 07/27/22 03:50 Lymphocytes # (Manual) 0.5 K/mm3 (1.2-5.4) L 07/27/22 03:50 Abs React Lymphs (Man) 0.0 K/mm3 07/27/22 03:50 Monocytes # (Manual) 0.3 K/mm3 (0.0-0.8) 07/27/22 03:50 Eosinophils # (Manual) 0.0 K/mm3 (0.0-0.4) 07/27/22 03:50 Basophils # (Manual) 0.0 K/mm3 (0.0-0.1) 07/27/22 03:50 Metamyelocytes # 0.2 K/mm3 07/27/22 03:50 Myelocytes # 0.0 K/mm3 07/27/22 03:50 Promyelocytes # 0.0 K/mm3 07/27/22 03:50 Blast Cells # 0.0 K/mm3 07/27/22 03:50 WBC Morphology Not Reportable 07/27/22 03:50 Hypersegmented Neuts Not Reportable 07/27/22 03:50 Hyposegmented Neuts Not Reportable 07/27/22 03:50 Hypogranular Neuts Not Reportable 07/27/22 03:50 Smudge Cells Not Reportable 07/27/22 03:50 Toxic Granulation Not Reportable 07/27/22 03:50 Toxic Vacuolation Not Reportable 07/27/22 03:50 Dohle Bodies Not Reportable 07/27/22 03:50 Pelger-Huet Anomaly Not Reportable 07/27/22 03:50 Jay Rods Not Reportable 07/27/22 03:50 Platelet Estimate Consistent w auto 07/27/22 03:50 Clumped Platelets Not Reportable 07/27/22 03:50 Plt Clumps, EDTA Not Reportable 07/27/22 03:50 Large Platelets Not Reportable 07/27/22 03:50 Giant Platelets Not Reportable 07/27/22 03:50 Platelet Satelliting Not Reportable 07/27/22 03:50 Plt Morphology Comment Not Reportable 07/27/22 03:50 RBC Morphology Not Reportable 07/27/22 03:50 Dimorphic RBCs Not Reportable 07/27/22 03:50 Polychromasia Not Reportable 07/27/22 03:50 Hypochromasia Not Reportable 07/27/22 03:50 Poikilocytosis Not Reportable 07/27/22 03:50 Anisocytosis Not Reportable 07/27/22 03:50 Microcytosis Not Reportable 07/27/22 03:50 Macrocytosis Not Reportable 07/27/22 03:50 Spherocytes Not Reportable 07/27/22 03:50 Pappenheimer Bodies Not Reportable 07/27/22 03:50 Sickle Cells Not Reportable 07/27/22 03:50 Target Cells Not Reportable 07/27/22 03:50 Tear Drop Cells Not Reportable 07/27/22 03:50 Ovalocytes Not Reportable 07/27/22 03:50 Helmet Cells Not Reportable 07/27/22 03:50 Reynolds-[place] Bodies Not Reportable 07/27/22 03:50 [place] Rings Not Reportable 07/27/22 03:50 Leonora Cells Not Reportable 07/27/22 03:50 Bite Cells Not Reportable 07/27/22 03:50 Crenated Cell Not Reportable 07/27/22 03:50 Elliptocytes Not Reportable 07/27/22 03:50 Acanthocytes (Spur) Not Reportable 07/27/22 03:50 Rouleaux Not Reportable 07/27/22 03:50 Hemoglobin C Crystals Not Reportable 07/27/22 03:50 Schistocytes Not Reportable 07/27/22 03:50 Malaria parasites Not Reportable 07/27/22 03:50 [place] Bodies Not Reportable 07/27/22 03:50 Hem Pathologist Commnt No 07/27/22 03:50 PT 14.3 Sec. (12.2-14.9) 07/31/22 04:13 INR 0.97 (0.87-1.13) 07/31/22 04:13 Heparin Anti-Xa, Unfract Negative (Negative) 08/01/22 04:17 ABG pH 7.500 pH Units (7.350-7.450) H 08/03/22 03:35 ABG pCO2 26.7 mm Hg 08/03/22 03:35 ABG pO2 129.6 mm Hg (80.0-90.0) H 08/03/22 03:35 ABG HCO3 20.4 mmol/L (20.0-26.0) 08/03/22 03:35 ABG O2 Saturation 98.7 % (95.0-99.0) 08/03/22 03:35 ABG O2 Content 13.5 (0.0-44) 08/03/22 03:35 ABG Base Excess -2.0 mmol/L (-2.0-3.0) 08/03/22 03:35 ABG Hemoglobin 9.7 gm/dl (14.0-18.0) L 08/03/22 03:35 ABG Carboxyhemoglobin 1.5 % (0.0-5.0) 08/03/22 03:35 ABG Methemoglobin 0.4 % (0.0-1.5) 08/03/22 03:35 VBG pH 7.362 (7.320-7.420) 07/25/22 19:37 Oxyhemoglobin 96.8 % (95.0-99.0) 08/03/22 03:35 FiO2 30 % 08/03/22 03:35 Sodium 142 mmol/L (137-145) 08/07/22 04:16 Potassium 3.4 mmol/L (3.6-5.0) L 08/07/22 04:16 Chloride 107.8 mmol/L (98-107) H 08/07/22 04:16 Carbon Dioxide 23 mmol/L (22-30) 08/07/22 04:16 Anion Gap 15 mmol/L 08/07/22 04:16 BUN 21 mg/dL (9-20) H 08/07/22 04:16 Creatinine 1.0 mg/dL (0.8-1.3) 08/07/22 04:16 Estimated GFR > 60 ml/min 08/07/22 04:16 BUN/Creatinine Ratio 21 % 08/07/22 04:16 Glucose 216 mg/dL (75-100) H 08/07/22 04:16 POC Glucose 192 mg/dL (70-105) H 08/07/22 04:49 Hemoglobin A1c 12.3 % (4-6) H 07/27/22 12:13 Lactic Acid 9.70 mmol/L (0.7-2.0) H* 07/26/22 15:36 Calcium 6.1 mg/dL (8.4-10.2) L 08/07/22 04:16 Phosphorus 2.00 mg/dL (2.5-4.5) L 08/07/22 04:16 Magnesium 1.80 mg/dL (1.7-2.3) 08/07/22 04:16 Total Bilirubin 0.40 mg/dL (0.1-1.2) 08/07/22 04:16 Direct Bilirubin < 0.2 mg/dL (0-0.2) 08/07/22 04:16 Indirect Bilirubin 0.2 mg/dL 08/07/22 04:16 AST 76 units/L (5-40) H 08/07/22 04:16 ALT 49 units/L (7-56) 08/07/22 04:16 Alkaline Phosphatase 119 units/L (35-129) 08/07/22 04:16 Ammonia 64.0 umol/L (25-60) H 07/25/22 19:37 Total Creatine Kinase 158 units/L (55-170) 07/25/22 19:37 CK-MB (CK-2) < 1.0 ng/mL (0.0-4.0) 07/25/22 19:37 CK-MB (CK-2) Rel Index 0.6 (0-4) 07/25/22 19:37 Troponin T 0.049 ng/mL (0.00-0.029) H D 07/26/22 15:36 C-Reactive Protein 21.50 mg/dL (0.00-1.30) H 08/05/22 21:43 Total Protein 5.1 g/dL (6.3-8.2) L 08/07/22 04:16 Albumin 1.8 g/dL (3.9-5) L 08/07/22 04:16 Albumin/Globulin Ratio 0.5 % 08/07/22 04:16 Triglycerides 362 mg/dL (2-149) H 07/25/22 19:37 Cholesterol 126 mg/dL (50-199) 07/25/22 19:37 LDL Cholesterol Direct 44 mg/dL (50-130) L 07/25/22 19:37 HDL Cholesterol 34 mg/dL (40-59) L 07/25/22 19:37 Cholesterol/HDL Ratio 3.70 % 07/25/22 19:37 Serotonin Release Assay See scanned result 08/01/22 04:17 Procalcitonin 0.56 ng/mL (<0.15) 08/05/22 21:43 TSH 2.170 mlU/mL (0.270-4.200) 07/25/22 19:37 Free T4 1.18 ng/dL (0.76-1.46) 07/25/22 19:37 Urine Color Lin (Yellow) 08/05/22 11:00 Urine Turbidity Cloudy (Clear) 08/05/22 11:00 Specific [place] (Man) 1.017 (1.003-1.030) 08/05/22 11:00 Ur Protein (Man) 2+ mg/dL (Negative) 08/05/22 11:00 Ur Ketones (Man) Negative (Negative) 08/05/22 11:00 Ur Nitrite (Man) Negative (Negative) 08/05/22 11:00 Ur Reducing Substances Not Reportable 07/26/22 08:31 Urine Bilirubin (Man) Negative (Negative) 08/05/22 11:00 Urine Ictotest Not Reportable 08/05/22 11:00 Leukocyte Esterase (Man) Negative (Negative) 08/05/22 11:00 Urine WBC (Auto) 6.0 /HPF (0.0-6.0) 08/05/22 11:00 Urine RBC (Auto) 6.0 /HPF (0.0-6.0) 08/05/22 11:00 U Epithel Cells (Auto) 1.0 /HPF (0-13.0) 08/05/22 11:00 Urine Bacteria (Auto) 1+ /HPF (Negative) 08/05/22 11:00 Urine RBC (Manual) 4+ (Negative) 08/05/22 11:00 Ur Renal Epithelial Cell 3 /LPF 07/26/22 08:31 Uric Acid Crystals Few 08/05/22 11:00 Amorphous Crystals Few 08/05/22 11:00 Urine Mucus Few /HPF 08/05/22 11:00 Urine Creatinine 118.4 mg/dL (0.1-20.0) H 07/26/22 18:10 Protein/Creatinin Ratio 1.23 07/26/22 18:10 Urine Sodium 108 mmol/L 07/26/22 18:10 Urine Total Protein 146 mg/dL (5-11.8) H 07/26/22 18:10 Nasal Screen MRSA (PCR) Negative (Negative) 08/05/22 14:00 Heparin-induced Plt Ab Negative (Negative) 08/01/22 04:17 UF Heparin High Dose 0 % Release 08/01/22 04:17 SU UFH Low Dose 0.1 0 % Release 08/01/22 04:17 SU UFH Low Dose 0.5 0 % Release 08/01/22 04:17 Microbiology: Microbiology 08/05/22 21:56 Peripheral/Venous Blood Culture - Preliminary NO GROWTH AFTER 24 HOURS 08/05/22 21:43 Peripheral/Venous Blood Culture - Preliminary NO GROWTH AFTER 24 HOURS 08/05/22 14:00 Wrist - Right Wound Culture - Preliminary 08/05/22 21:30 Tracheal Aspirate Sputum Culture - Preliminary Yañez/IV: Voiding Method Indwelling Catheter Active Medications - Current Medications Current Medications: Generic Name Dose Route Start Last Admin Trade Name Freq PRN Reason Stop Dose Admin Acetaminophen 650 mg 07/26/22 00:31 08/06/22 20:18 Acetaminophen 325 Mg Tab PO 650 mg Q4H PRN Administration Pain MILD(1-3)/Fever >100.5/LANTIGUA Acetaminophen 650 mg 07/26/22 02:04 Acetaminophen 650 Mg Rect Supp NE Q4H PRN Pain, Mild (1-3) Albuterol 2.5 mg 07/26/22 00:31 Albuterol 2.5 Mg/3 Ml Nebu IH Q3HRT PRN Shortness Of Breath Amiodarone HCl 200 mg 08/04/22 11:00 08/06/22 21:43 Amiodarone 200 Mg Tab FEEDTUBE 200 mg BID LIZZIE Administration Atorvastatin Calcium 40 mg 08/04/22 22:00 08/06/22 21:43 Atorvastatin 40 Mg Tab FEEDTUBE 40 mg QHS LIZZIE Administration Dextrose 50 ml 07/27/22 09:25 08/04/22 06:03 Dextrose 50% In Water (25gm) 50 Ml Syringe IV 50 ml Q30MIN PRN Administration Hypoglycemia Protocol Enoxaparin Sodium 40 mg 08/06/22 10:00 08/06/22 10:14 Enoxaparin 40 Mg/0.4 Ml Inj SUB-Q 40 mg QDAY@1000 LIZZIE Administration Famotidine 10 mg 07/28/22 10:00 08/06/22 21:43 Famotidine 10 Mg Tab FEEDTUBE 10 mg BID LIZZIE Administration Meropenem/Sodium Chloride 1 gram in 100 mls @ 100 mls/hr 08/06/22 10:00 08/07/22 04:38 Merrem/Ns 1 Gram/100 Ml IV 100 mls/hr Q8H LIZZIE Administration Protocol Vancomycin HCl 750 mg/ Sodium 265 mls @ 176.667 mls/hr 08/07/22 10:00 Chloride IV Q24H LIZZIE Insulin Glargine 10 units 08/05/22 22:00 08/06/22 21:35 Insulin Glargine 100 Units/Ml SUB-Q 10 units QHS LIZZIE Administration Insulin Human Regular 0 units 07/27/22 12:00 08/07/22 05:30 Insulin Regular, Human 100 Units/1 Ml SUB-Q 3 units Q6H LIZZIE Administration Protocol Multi-Ingred Cream/Lotion/Oil/Oint 1 applic 07/27/22 03:17 07/27/22 03:35 Mineral Oil/Petrolatum, White Ophth Oint 3.5 Gm OU 1 applic PRN PRN Administration Dry Eye(s) Nitroglycerin 0.4 mg 07/26/22 00:31 Nitroglycerin 0.4 Mg Tab Subl SL Q5M PRN Chest Pain Ondansetron HCl 4 mg 07/26/22 00:31 Ondansetron 4 Mg/2 Ml Inj IV Q8H PRN Nausea And Vomiting Sodium Bicarbonate 650 mg 08/04/22 14:00 08/06/22 20:17 Sodium Bicarbonate 650 Mg Tab FEEDTUBE 650 mg TID LIZZIE Administration Sodium Chloride 10 ml 07/26/22 10:00 08/06/22 21:43 Sodium Chloride 0.9% 10 Ml Flush Syringe IV 10 ml BID LIZZIE Administration Sodium Chloride 10 ml 07/26/22 00:31 Sodium Chloride 0.9% 10 Ml Flush Syringe IV PRN PRN LINE FLUSH Nutrition/Malnutrition Assess - Dietary Evaluation Nutrition/Malnutrition Findings: Nutrition Notes Start: 07/26/22 10:25 Freq: Status: Active Protocol: Document 07/31/22 14:58 PEACE (Rec: 07/31/22 15:04 PEACE [id number]) Nutrition Notes Initial or Follow up Reassessment Current Diagnosis Acute Kidney Injury,Diabetes, Hypertension,Respiratory Failure,Hyperlipidemia Other Pertinent Diagnosis s/p cardiac arrest, s/p DKA, acute metabolic encephalopathy Current Diet TF - Glucerna 1.2 at 45ml/hr Labs/Tests Na 146 K 3.4 BUN 53 Cr 1.6 BG 151 Pertinent Medications 40mEq KCl Height 5 ft 5 in Weight 49.8 kg [place] Body Weight (kg) 61.81 BMI 18.2 Subjective/Other Information Observed Glucerna 1.2 infusing at goal rate; pt tolerating TF. MD ordered 250ml water flush q4h. Pt remains on vent support; renal function improving. Percent of energy/protein needs met: 93% energy 100% pro Burn Absent Trauma Absent #1 Nutrition Diagnosis Inadequate oral intake Diagnosis Progress(for reassessment Continues documentation) Is patient on ventilator? Yes Is Patient Ambulatory and/or Out of Bed No REE-([facility]-confined to bed) [phone] Calculation Used for Recommendations [facility] Additional Notes Pro needs 0.8-1.2g/k-60g/ day Fluid needs per MD. Nutrition Intervention Nutrition Support: Continue Glucerna 1.2 at 45ml/ hr with 250ml water flush q4h until hypernatremia resolved. Kcal 1,296 Protein (gm) 65 Carbohydrates (gm) 124 Fat (gm) 65 Fluid (mL) 869 Fiber (gm) 17 Goal #1 TF tolerance Goal #2 TF to provide at least 75% energy and pro needs Follow-Up By: 08/07/22 Additional Comments F/U: stable TF, trach/PEG placement, vent status, renal function, BM
--- NOTE | 2022-08-06 12:27 | Progress Note ---
Assessment and Plan 77 y/o male with cardiac arrest, intubated, not sedated with multisystem organ failure 06/05/2022: No significant change low-grade temperature vancomycin has been added by ID. Remain on mechanical ventilator. Photographs of the arm and legs with multiple large blisters were reviewed does not appear to be infected though. We will continue the current vent settings for now. Antibiotic as per ID. 08/05/2022. No significant change continued on low-grade fever. Cultures has been obtained urine analysis is not suggestive of infection. Yañez was removed if patient does not void on his own he will require reinsertion of Yañez catheter. Remains with altered mental status/anoxic encephalopathy postcardiac arrest. Has trach and remains on mechanical ventilator at this time. Consider antibiotic therapy if fever continues. Chest x-ray shows subtle lower lobe infiltrate could be related to ventilator associated pneumonia. We will send sputum for gram stain and C&S. Continue with cefepime 08/04/22: CXR in am. Will order sputum as per report, secretions have increased. Abx therapy has stopped. Trach site stable. await placement. If spikes again, needs blood, urine and UA. 08/03/22: Await placement. Continue daily PSV. PT consult. 08/01/22: Follow up surgery recs. Continue supportive care. 07/31/22: Supportive care. Surgery consult for trach and peg. Renal function continues to improve. 07/30/22: Continue supportive measures. Family wants aggressive measures despite MRI findings so needs consult to surgery for trach and peg. Will drop steroids down to 25q8 or 50q12 Sunday. Continue volume as renal function is improving. needs more free water if possible. 07/29/22: Drop steroids to 50q8 starting today. CBC not checked, need to evaluate Platelets. Need to correct electrolytes as well. Family is likely going to want trach and peg based on earlier conversations but awaiting more family. Given recent MRI results, prognosis is very poor. 07/28/22: Hold on Volume today. Drop steroids down to 50q8 starting tomorrow. Follow up MRI. EEG results still pending. Platelets still dropping but no evidence of bleeding. Continue abx therapy. Continue feeds. Prognosis is still guarded. 07/27/22: more volume again today. Echo showed normal EF. Wean pressors for MAPs >65, follow up EEg results. Hopeful to get head CT today. Platelets dropped today, not on heparin. Could be sepsis related. If head CT negative, may need to evaluate abdomen around peg. Will start trickle feeds today and transition of insulin drip. Prognosis is still guarded. 1. IVF resusciation with LR 2. Insulin drip and continue NPO state 3. Attempt to wean pressors for MAPs greater than 65 4. Monitor urine output 5. Broaden abx therapy given current clinical state 6. Follow up echo report 7. Agree with stress dose steroids 8. No sedation 9. EEG pending Overall prognosis is guarded to poor, especially given current clinical exam CCT 31 minutes. Subjective Date of service: 08/06/22 Principal diagnosis: Hypernatremia, ARF Interval history: Remains unresponsive on mechanical ventilator. Continues to have low-grade fever up to 100.6 photographs in upper and lower extremity were reviewed and shows significant blisters but does not appear to be infected Objective - Exam Narrative Exam: General appearance: Present: other (Trached, on the vent, and unresponsive) - EENT Eyes: Present: irregular pupil, mydriasis - Respiratory Respiratory effort: normal Respiratory: bilateral: rhonchi - Cardiovascular Rhythm: regular Heart Sounds: Present: S1 & S2 - Extremities Extremities: no ischemia, pulses intact, pulses symmetrical Extremity abnormal: edema - Peripheral Assessment Generalized Edema Type: Non-pitting Edema Degree: 2+ Capillary Refill: < 3 seconds Skin Temperature: Warm Peripheral Pulses: within normal limits - Abdominal General gastrointestinal: soft, non-distended, normal bowel sounds - Integumentary Integumentary: Present: warm, dry - Psychiatric Psychiatric: other (on the vent and unresponsive) - Neurologic Neurologic: other (On the vent and unresponsive) - Allied Health Allied health notes reviewed: nursing, case management Vital Signs - 12hr 08/06/22 08/06/22 08/06/22 00:27 01:00 02:00 Temperature Pulse Rate 94 H 102 H 97 H Pulse Rate [ From Monitor] Respiratory 22 32 H 30 H Rate Blood Pressure 137/70 141/72 O2 Sat by Pulse 97 94 96 Oximetry O2 Sat by Pulse Oximetry [ Assessment] 08/06/22 08/06/22 08/06/22 03:00 03:45 04:00 Temperature 100.2 F H Pulse Rate 97 H 111 H Pulse Rate [ From Monitor] Respiratory 30 H 22 34 H Rate Blood Pressure 143/74 148/69 O2 Sat by Pulse 96 97 90 Oximetry O2 Sat by Pulse Oximetry [ Assessment] 08/06/22 08/06/22 08/06/22 04:24 04:31 05:00 Temperature 100.2 F H Pulse Rate 99 H 100 H Pulse Rate [ From Monitor] Respiratory 38 H Rate Blood Pressure 148/69 156/82 O2 Sat by Pulse 92 94 Oximetry O2 Sat by Pulse 99 Oximetry [ Assessment] 08/06/22 08/06/22 08/06/22 06:00 07:00 07:19 Temperature 100.6 F H Pulse Rate 98 H 98 H Pulse Rate [ From Monitor] Respiratory 21 29 H Rate Blood Pressure 161/77 150/75 O2 Sat by Pulse 95 91 Oximetry O2 Sat by Pulse Oximetry [ Assessment] 08/06/22 08/06/22 08/06/22 08:00 09:00 09:48 Temperature 100.6 F H Pulse Rate 89 102 H 98 H Pulse Rate [ 89 From Monitor] Respiratory 23 31 H Rate Blood Pressure 140/75 133/76 133/76 O2 Sat by Pulse 94 97 96 Oximetry O2 Sat by Pulse Oximetry [ Assessment] 08/06/22 08/06/22 08/06/22 10:00 11:00 11:43 Temperature 99.0 F Pulse Rate 101 H 85 Pulse Rate [ From Monitor] Respiratory 30 H 21 Rate Blood Pressure 136/66 107/52 O2 Sat by Pulse 94 Oximetry O2 Sat by Pulse Oximetry [ Assessment] CBC and BMP: 08/06/22 05:20 08/06/22 05:20 ABG, PT/INR, D-dimer: ABG ABG pH 7.500 pH Units (7.350-7.450) H 08/03/22 03:35 ABG pCO2 26.7 mm Hg 08/03/22 03:35 ABG pO2 129.6 mm Hg (80.0-90.0) H 08/03/22 03:35 ABG O2 Saturation 98.7 % (95.0-99.0) 08/03/22 03:35 PT/INR, D-dimer PT 14.3 Sec. (12.2-14.9) 07/31/22 04:13 INR 0.97 (0.87-1.13) 07/31/22 04:13 Abnormal lab findings: Abnormal Labs 07/25/22 07/25/22 07/25/22 19:37 19:37 19:37 WBC 18.8 H RBC 6.31 H Hgb 18.8 H Hct 57.3 H MCV MCHC RDW Plt Count [place] # (Auto) 1.4 H Seg Neutrophils % 70.7 H Seg Neuts % (Manual) Lymphocytes % (Manual) Seg Neutrophils # 13.3 H Seg Neutrophils # Man Lymphocytes # (Manual) ABG pH ABG pO2 ABG HCO3 ABG O2 Saturation ABG Base Excess ABG Hemoglobin Oxyhemoglobin Sodium 149 H Potassium Chloride 110.3 H Carbon Dioxide 18 L BUN 73 H Creatinine 3.3 H Glucose 761 H* POC Glucose Hemoglobin A1c Lactic Acid Calcium 10.6 H Phosphorus Magnesium 3.10 H AST 63 H ALT 64 H Ammonia Troponin T 0.072 H C-Reactive Protein Total Protein 9.0 H Albumin Triglycerides 362 H LDL Cholesterol Direct 44 L HDL Cholesterol 34 L Urine Creatinine Urine Total Protein 07/25/22 07/25/22 07/25/22 19:37 21:08 22:10 WBC RBC Hgb Hct MCV MCHC RDW Plt Count [place] # (Auto) Seg Neutrophils % Seg Neuts % (Manual) Lymphocytes % (Manual) Seg Neutrophils # Seg Neutrophils # Man Lymphocytes # (Manual) ABG pH ABG pO2 ABG HCO3 ABG O2 Saturation ABG Base Excess ABG Hemoglobin Oxyhemoglobin Sodium 155 H Potassium Chloride 113.1 H Carbon Dioxide 14 L BUN 74 H Creatinine 3.5 H Glucose 734 H* POC Glucose Hemoglobin A1c Lactic Acid 12.70 H* Calcium Phosphorus Magnesium AST ALT Ammonia 64.0 H Troponin T C-Reactive Protein Total Protein Albumin Triglycerides LDL Cholesterol Direct HDL Cholesterol Urine Creatinine Urine Total Protein 07/25/22 07/25/22 07/26/22 22:20 23:29 00:13 WBC RBC Hgb Hct MCV MCHC RDW Plt Count [place] # (Auto) Seg Neutrophils % Seg Neuts % (Manual) Lymphocytes % (Manual) Seg Neutrophils # Seg Neutrophils # Man Lymphocytes # (Manual) ABG pH 7.342 L ABG pO2 318.2 H ABG HCO3 14.4 L ABG O2 Saturation 99.5 H ABG Base Excess -9.4 L ABG Hemoglobin Oxyhemoglobin Sodium 157 H Potassium 3.1 L D Chloride 114.0 H Carbon Dioxide 21 L D BUN 72 H Creatinine 3.7 H Glucose 615 H* POC Glucose > 600 H Hemoglobin A1c Lactic Acid Calcium Phosphorus Magnesium AST ALT Ammonia Troponin T C-Reactive Protein Total Protein Albumin Triglycerides LDL Cholesterol Direct HDL Cholesterol Urine Creatinine Urine Total Protein 07/26/22 07/26/22 07/26/22 00:13 00:38 00:39 WBC 21.4 H RBC 5.88 H Hgb 17.2 H Hct 55.0 H MCV MCHC 31 L RDW 16.0 H Plt Count [place] # (Auto) Seg Neutrophils % Seg Neuts % (Manual) 77.0 H Lymphocytes % (Manual) 13.0 L Seg Neutrophils # Seg Neutrophils # Man 16.5 H Lymphocytes # (Manual) ABG pH ABG pO2 ABG HCO3 ABG O2 Saturation ABG Base Excess ABG Hemoglobin Oxyhemoglobin Sodium Potassium Chloride Carbon Dioxide BUN Creatinine Glucose POC Glucose 517 H Hemoglobin A1c Lactic Acid 9.10 H* Calcium Phosphorus Magnesium AST ALT Ammonia Troponin T C-Reactive Protein Total Protein Albumin Triglycerides LDL Cholesterol Direct HDL Cholesterol Urine Creatinine Urine Total Protein 07/26/22 07/26/22 07/26/22 00:39 01:32 02:28 WBC RBC Hgb Hct MCV MCHC RDW Plt Count [place] # (Auto) Seg Neutrophils % Seg Neuts % (Manual) Lymphocytes % (Manual) Seg Neutrophils # Seg Neutrophils # Man Lymphocytes # (Manual) ABG pH ABG pO2 ABG HCO3 ABG O2 Saturation ABG Base Excess ABG Hemoglobin Oxyhemoglobin Sodium Potassium Chloride Carbon Dioxide BUN Creatinine Glucose POC Glucose 460 H 237 H Hemoglobin A1c Lactic Acid Calcium Phosphorus 1.20 L D Magnesium 4.10 H AST ALT Ammonia Troponin T C-Reactive Protein Total Protein Albumin Triglycerides LDL Cholesterol Direct HDL Cholesterol Urine Creatinine Urine Total Protein 07/26/22 07/26/22 07/26/22 03:03 03:07 04:11 WBC RBC Hgb Hct MCV MCHC RDW Plt Count [place] # (Auto) Seg Neutrophils % Seg Neuts % (Manual) Lymphocytes % (Manual) Seg Neutrophils # Seg Neutrophils # Man Lymphocytes # (Manual) ABG pH ABG pO2 ABG HCO3 ABG O2 Saturation ABG Base Excess ABG Hemoglobin Oxyhemoglobin Sodium Potassium Chloride Carbon Dioxide BUN Creatinine Glucose POC Glucose 433 H 370 H 338 H Hemoglobin A1c Lactic Acid Calcium Phosphorus Magnesium AST ALT Ammonia Troponin T C-Reactive Protein Total Protein Albumin Triglycerides LDL Cholesterol Direct HDL Cholesterol Urine Creatinine Urine Total Protein 07/26/22 07/26/22 07/26/22 04:35 04:35 04:40 WBC RBC Hgb Hct MCV MCHC RDW Plt Count [place] # (Auto) Seg Neutrophils % Seg Neuts % (Manual) Lymphocytes % (Manual) Seg Neutrophils # Seg Neutrophils # Man Lymphocytes # (Manual) ABG pH 7.301 L ABG pO2 178.2 H ABG HCO3 11.0 L ABG O2 Saturation 99.1 H ABG Base Excess -13.3 L ABG Hemoglobin Oxyhemoglobin Sodium 162 H* Potassium 3.0 L Chloride 124.8 H Carbon Dioxide 18 L BUN 69 H Creatinine 3.9 H Glucose 385 H POC Glucose Hemoglobin A1c Lactic Acid 8.20 H* Calcium 7.8 L Phosphorus Magnesium AST ALT Ammonia Troponin T C-Reactive Protein Total Protein Albumin Triglycerides LDL Cholesterol Direct HDL Cholesterol Urine Creatinine Urine Total Protein 07/26/22 07/26/22 07/26/22 05:01 06:14 06:52 WBC RBC Hgb Hct MCV MCHC RDW Plt Count [place] # (Auto) Seg Neutrophils % Seg Neuts % (Manual) Lymphocytes % (Manual) Seg Neutrophils # Seg Neutrophils # Man Lymphocytes # (Manual) ABG pH ABG pO2 ABG HCO3 ABG O2 Saturation ABG Base Excess ABG Hemoglobin Oxyhemoglobin Sodium Potassium Chloride Carbon Dioxide BUN Creatinine Glucose POC Glucose 347 H 300 H 278 H Hemoglobin A1c Lactic Acid Calcium Phosphorus Magnesium AST ALT Ammonia Troponin T C-Reactive Protein Total Protein Albumin Triglycerides LDL Cholesterol Direct HDL Cholesterol Urine Creatinine Urine Total Protein 07/26/22 07/26/22 07/26/22 07:59 08:58 10:04 WBC RBC Hgb Hct MCV MCHC RDW Plt Count [place] # (Auto) Seg Neutrophils % Seg Neuts % (Manual) Lymphocytes % (Manual) Seg Neutrophils # Seg Neutrophils # Man Lymphocytes # (Manual) ABG pH ABG pO2 ABG HCO3 ABG O2 Saturation ABG Base Excess ABG Hemoglobin Oxyhemoglobin Sodium Potassium Chloride Carbon Dioxide BUN Creatinine Glucose POC Glucose 269 H 277 H 244 H Hemoglobin A1c Lactic Acid Calcium Phosphorus Magnesium AST ALT Ammonia Troponin T C-Reactive Protein Total Protein Albumin Triglycerides LDL Cholesterol Direct HDL Cholesterol Urine Creatinine Urine Total Protein 07/26/22 07/26/22 07/26/22 11:03 11:53 13:08 WBC RBC Hgb Hct MCV MCHC RDW Plt Count [place] # (Auto) Seg Neutrophils % Seg Neuts % (Manual) Lymphocytes % (Manual) Seg Neutrophils # Seg Neutrophils # Man Lymphocytes # (Manual) ABG pH ABG pO2 ABG HCO3 ABG O2 Saturation ABG Base Excess ABG Hemoglobin Oxyhemoglobin Sodium Potassium Chloride Carbon Dioxide BUN Creatinine Glucose POC Glucose 253 H 213 H 194 H Hemoglobin A1c Lactic Acid Calcium Phosphorus Magnesium AST ALT Ammonia Troponin T C-Reactive Protein Total Protein Albumin Triglycerides LDL Cholesterol Direct HDL Cholesterol Urine Creatinine Urine Total Protein 07/26/22 07/26/22 07/26/22 14:24 14:56 14:57 WBC RBC Hgb Hct MCV MCHC RDW Plt Count [place] # (Auto) Seg Neutrophils % Seg Neuts % (Manual) Lymphocytes % (Manual) Seg Neutrophils # Seg Neutrophils # Man Lymphocytes # (Manual) ABG pH ABG pO2 ABG HCO3 ABG O2 Saturation ABG Base Excess ABG Hemoglobin Oxyhemoglobin Sodium Potassium Chloride Carbon Dioxide BUN Creatinine Glucose POC Glucose 185 H 236 H 207 H Hemoglobin A1c Lactic Acid Calcium Phosphorus Magnesium AST ALT Ammonia Troponin T C-Reactive Protein Total Protein Albumin Triglycerides LDL Cholesterol Direct HDL Cholesterol Urine Creatinine Urine Total Protein 07/26/22 07/26/22 07/26/22 15:36 15:36 15:36 WBC RBC Hgb Hct MCV MCHC RDW Plt Count [place] # (Auto) Seg Neutrophils % Seg Neuts % (Manual) Lymphocytes % (Manual) Seg Neutrophils # Seg Neutrophils # Man Lymphocytes # (Manual) ABG pH ABG pO2 ABG HCO3 ABG O2 Saturation ABG Base Excess ABG Hemoglobin Oxyhemoglobin Sodium 160 H Potassium Chloride 126.2 H Carbon Dioxide 18 L BUN 59 H Creatinine 3.2 H Glucose 227 H POC Glucose Hemoglobin A1c Lactic Acid 9.70 H* Calcium 7.1 L Phosphorus Magnesium AST ALT Ammonia Troponin T 0.049 H D C-Reactive Protein Total Protein Albumin Triglycerides LDL Cholesterol Direct HDL Cholesterol Urine Creatinine Urine Total Protein 07/26/22 07/26/22 07/26/22 15:57 16:32 17:04 WBC RBC Hgb Hct MCV MCHC RDW Plt Count [place] # (Auto) Seg Neutrophils % Seg Neuts % (Manual) Lymphocytes % (Manual) Seg Neutrophils # Seg Neutrophils # Man Lymphocytes # (Manual) ABG pH ABG pO2 ABG HCO3 ABG O2 Saturation ABG Base Excess ABG Hemoglobin Oxyhemoglobin Sodium Potassium Chloride Carbon Dioxide BUN Creatinine Glucose POC Glucose 207 H 189 H 219 H Hemoglobin A1c Lactic Acid Calcium Phosphorus Magnesium AST ALT Ammonia Troponin T C-Reactive Protein Total Protein Albumin Triglycerides LDL Cholesterol Direct HDL Cholesterol Urine Creatinine Urine Total Protein 07/26/22 07/26/22 07/26/22 18:00 18:10 18:52 WBC RBC Hgb Hct MCV MCHC RDW Plt Count [place] # (Auto) Seg Neutrophils % Seg Neuts % (Manual) Lymphocytes % (Manual) Seg Neutrophils # Seg Neutrophils # Man Lymphocytes # (Manual) ABG pH ABG pO2 ABG HCO3 ABG O2 Saturation ABG Base Excess ABG Hemoglobin Oxyhemoglobin Sodium Potassium Chloride Carbon Dioxide BUN Creatinine Glucose POC Glucose 197 H 194 H Hemoglobin A1c Lactic Acid Calcium Phosphorus Magnesium AST ALT Ammonia Troponin T C-Reactive Protein Total Protein Albumin Triglycerides LDL Cholesterol Direct HDL Cholesterol Urine Creatinine 118.4 H Urine Total Protein 146 H 07/26/22 07/26/22 07/26/22 20:47 21:30 21:51 WBC RBC Hgb Hct MCV MCHC RDW Plt Count [place] # (Auto) Seg Neutrophils % Seg Neuts % (Manual) Lymphocytes % (Manual) Seg Neutrophils # Seg Neutrophils # Man Lymphocytes # (Manual) ABG pH ABG pO2 ABG HCO3 ABG O2 Saturation ABG Base Excess ABG Hemoglobin Oxyhemoglobin Sodium 155 H Potassium Chloride 123.5 H Carbon Dioxide 16 L BUN 53 H Creatinine 2.9 H Glucose 185 H POC Glucose 134 H 124 H Hemoglobin A1c Lactic Acid Calcium 7.0 L Phosphorus Magnesium AST ALT Ammonia Troponin T C-Reactive Protein Total Protein Albumin Triglycerides LDL Cholesterol Direct HDL Cholesterol Urine Creatinine Urine Total Protein 07/26/22 07/26/22 07/27/22 22:47 23:52 00:45 WBC RBC Hgb Hct MCV MCHC RDW Plt Count [place] # (Auto) Seg Neutrophils % Seg Neuts % (Manual) Lymphocytes % (Manual) Seg Neutrophils # Seg Neutrophils # Man Lymphocytes # (Manual) ABG pH ABG pO2 ABG HCO3 ABG O2 Saturation ABG Base Excess ABG Hemoglobin Oxyhemoglobin Sodium 155 H Potassium Chloride 124.2 H Carbon Dioxide 19 L BUN 53 H Creatinine 2.5 H Glucose 168 H POC Glucose 138 H 150 H Hemoglobin A1c Lactic Acid Calcium 6.7 L Phosphorus Magnesium AST ALT Ammonia Troponin T C-Reactive Protein Total Protein Albumin Triglycerides LDL Cholesterol Direct HDL Cholesterol Urine Creatinine Urine Total Protein 09/08/22 09/08/22 09/08/22 00:58 02:45 03:50 WBC 15.4 H RBC Hgb Hct MCV MCHC RDW 15.3 H Plt Count 60 L [place] # (Auto) Seg Neutrophils % Seg Neuts % (Manual) 78.0 H Lymphocytes % (Manual) 3.0 L Seg Neutrophils # Seg Neutrophils # Man 12.0 H Lymphocytes # (Manual) 0.5 L ABG pH ABG pO2 ABG HCO3 ABG O2 Saturation ABG Base Excess ABG Hemoglobin Oxyhemoglobin Sodium Potassium Chloride Carbon Dioxide BUN Creatinine Glucose POC Glucose 153 H 150 H Hemoglobin A1c Lactic Acid Calcium Phosphorus Magnesium AST ALT Ammonia Troponin T C-Reactive Protein Total Protein Albumin Triglycerides LDL Cholesterol Direct HDL Cholesterol Urine Creatinine Urine Total Protein 07/27/22 07/27/22 07/27/22 03:50 03:55 04:57 WBC RBC Hgb Hct MCV MCHC RDW Plt Count [place] # (Auto) Seg Neutrophils % Seg Neuts % (Manual) Lymphocytes % (Manual) Seg Neutrophils # Seg Neutrophils # Man Lymphocytes # (Manual) ABG pH ABG pO2 110.1 H ABG HCO3 13.3 L ABG O2 Saturation ABG Base Excess -9.0 L ABG Hemoglobin 13.1 L Oxyhemoglobin Sodium 154 H Potassium Chloride 123.0 H Carbon Dioxide 19 L BUN 55 H Creatinine 2.8 H Glucose 153 H POC Glucose 112 H Hemoglobin A1c Lactic Acid Calcium 6.8 L Phosphorus 1.30 L Magnesium AST 64 H ALT Ammonia Troponin T C-Reactive Protein Total Protein 4.1 L D Albumin 2.1 L Triglycerides LDL Cholesterol Direct HDL Cholesterol Urine Creatinine Urine Total Protein 07/27/22 07/27/22 07/27/22 08:22 09:30 10:49 WBC RBC Hgb Hct MCV MCHC RDW Plt Count [place] # (Auto) Seg Neutrophils % Seg Neuts % (Manual) Lymphocytes % (Manual) Seg Neutrophils # Seg Neutrophils # Man Lymphocytes # (Manual) ABG pH ABG pO2 ABG HCO3 ABG O2 Saturation ABG Base Excess ABG Hemoglobin Oxyhemoglobin Sodium Potassium Chloride Carbon Dioxide BUN Creatinine Glucose POC Glucose 146 H 153 H 163 H Hemoglobin A1c Lactic Acid Calcium Phosphorus Magnesium AST ALT Ammonia Troponin T C-Reactive Protein Total Protein Albumin Triglycerides LDL Cholesterol Direct HDL Cholesterol Urine Creatinine Urine Total Protein 07/27/22 07/27/22 07/27/22 12:13 12:44 17:17 WBC RBC Hgb Hct MCV MCHC RDW Plt Count [place] # (Auto) Seg Neutrophils % Seg Neuts % (Manual) Lymphocytes % (Manual) Seg Neutrophils # Seg Neutrophils # Man Lymphocytes # (Manual) ABG pH ABG pO2 ABG HCO3 ABG O2 Saturation ABG Base Excess ABG Hemoglobin Oxyhemoglobin Sodium Potassium Chloride Carbon Dioxide BUN Creatinine Glucose POC Glucose 190 H 287 H Hemoglobin A1c 12.3 H Lactic Acid Calcium Phosphorus Magnesium AST ALT Ammonia Troponin T C-Reactive Protein Total Protein Albumin Triglycerides LDL Cholesterol Direct HDL Cholesterol Urine Creatinine Urine Total Protein 07/28/22 07/28/22 07/28/22 00:22 03:58 04:05 WBC RBC Hgb Hct MCV MCHC RDW Plt Count [place] # (Auto) Seg Neutrophils % Seg Neuts % (Manual) Lymphocytes % (Manual) Seg Neutrophils # Seg Neutrophils # Man Lymphocytes # (Manual) ABG pH ABG pO2 171.2 H ABG HCO3 12.3 L ABG O2 Saturation 99.2 H ABG Base Excess -9.7 L ABG Hemoglobin 10.9 L Oxyhemoglobin Sodium 148 H Potassium Chloride 117.0 H Carbon Dioxide 16 L BUN 74 H Creatinine 3.2 H Glucose 471 H POC Glucose 379 H Hemoglobin A1c Lactic Acid Calcium 6.2 L Phosphorus Magnesium AST ALT Ammonia Troponin T C-Reactive Protein Total Protein Albumin Triglycerides LDL Cholesterol Direct HDL Cholesterol Urine Creatinine Urine Total Protein 07/28/22 07/28/22 07/28/22 04:05 05:36 12:50 WBC 13.9 H RBC Hgb 11.2 L Hct MCV MCHC 31 L RDW 15.9 H Plt Count 48 L [place] # (Auto) Seg Neutrophils % Seg Neuts % (Manual) Lymphocytes % (Manual) Seg Neutrophils # Seg Neutrophils # Man Lymphocytes # (Manual) ABG pH ABG pO2 ABG HCO3 ABG O2 Saturation ABG Base Excess ABG Hemoglobin Oxyhemoglobin Sodium Potassium Chloride Carbon Dioxide BUN Creatinine Glucose POC Glucose 390 H 399 H Hemoglobin A1c Lactic Acid Calcium Phosphorus Magnesium AST ALT Ammonia Troponin T C-Reactive Protein Total Protein Albumin Triglycerides LDL Cholesterol Direct HDL Cholesterol Urine Creatinine Urine Total Protein 07/28/22 07/28/22 07/28/22 17:27 18:16 23:31 WBC RBC Hgb Hct MCV MCHC RDW Plt Count [place] # (Auto) Seg Neutrophils % Seg Neuts % (Manual) Lymphocytes % (Manual) Seg Neutrophils # Seg Neutrophils # Man Lymphocytes # (Manual) ABG pH ABG pO2 ABG HCO3 ABG O2 Saturation ABG Base Excess ABG Hemoglobin Oxyhemoglobin Sodium Potassium Chloride Carbon Dioxide BUN Creatinine Glucose POC Glucose 434 H 331 H Hemoglobin A1c Lactic Acid Calcium Phosphorus 2.00 L D Magnesium AST ALT Ammonia Troponin T C-Reactive Protein Total Protein Albumin Triglycerides LDL Cholesterol Direct HDL Cholesterol Urine Creatinine Urine Total Protein 07/29/22 07/29/22 07/29/22 04:47 05:30 06:10 WBC RBC Hgb Hct MCV MCHC RDW Plt Count [place] # (Auto) Seg Neutrophils % Seg Neuts % (Manual) Lymphocytes % (Manual) Seg Neutrophils # Seg Neutrophils # Man Lymphocytes # (Manual) ABG pH 7.498 H ABG pO2 166.4 H ABG HCO3 16.2 L ABG O2 Saturation 99.1 H ABG Base Excess -5.4 L ABG Hemoglobin 10.7 L Oxyhemoglobin Sodium 151 H Potassium 3.5 L D Chloride 120.4 H Carbon Dioxide 17 L BUN 80 H Creatinine 2.8 H Glucose 303 H POC Glucose 261 H Hemoglobin A1c Lactic Acid Calcium 6.9 L Phosphorus Magnesium AST ALT Ammonia Troponin T C-Reactive Protein Total Protein Albumin Triglycerides LDL Cholesterol Direct HDL Cholesterol Urine Creatinine Urine Total Protein 07/29/22 07/29/22 07/29/22 09:18 12:31 13:40 WBC 16.0 H RBC Hgb Hct MCV 96 H MCHC 30 L RDW 17.6 H Plt Count 84 L [place] # (Auto) Seg Neutrophils % Seg Neuts % (Manual) Lymphocytes % (Manual) Seg Neutrophils # Seg Neutrophils # Man Lymphocytes # (Manual) ABG pH ABG pO2 ABG HCO3 ABG O2 Saturation ABG Base Excess ABG Hemoglobin Oxyhemoglobin Sodium Potassium Chloride Carbon Dioxide BUN Creatinine Glucose POC Glucose 287 H 291 H Hemoglobin A1c Lactic Acid Calcium Phosphorus Magnesium AST ALT Ammonia Troponin T C-Reactive Protein Total Protein Albumin Triglycerides LDL Cholesterol Direct HDL Cholesterol Urine Creatinine Urine Total Protein 07/29/22 07/29/22 07/30/22 17:19 23:57 04:25 WBC RBC Hgb Hct MCV MCHC RDW Plt Count [place] # (Auto) Seg Neutrophils % Seg Neuts % (Manual) Lymphocytes % (Manual) Seg Neutrophils # Seg Neutrophils # Man Lymphocytes # (Manual) ABG pH 7.461 H ABG pO2 123.0 H ABG HCO3 18.6 L ABG O2 Saturation ABG Base Excess -4.1 L ABG Hemoglobin 10.8 L Oxyhemoglobin Sodium Potassium Chloride Carbon Dioxide BUN Creatinine Glucose POC Glucose 272 H 205 H Hemoglobin A1c Lactic Acid Calcium Phosphorus Magnesium AST ALT Ammonia Troponin T C-Reactive Protein Total Protein Albumin Triglycerides LDL Cholesterol Direct HDL Cholesterol Urine Creatinine Urine Total Protein 07/30/22 07/30/22 07/30/22 04:42 04:42 05:17 WBC RBC Hgb 11.1 L Hct 33.1 L D MCV MCHC RDW 16.0 H Plt Count 34 L [place] # (Auto) Seg Neutrophils % Seg Neuts % (Manual) Lymphocytes % (Manual) Seg Neutrophils # Seg Neutrophils # Man Lymphocytes # (Manual) ABG pH ABG pO2 ABG HCO3 ABG O2 Saturation ABG Base Excess ABG Hemoglobin Oxyhemoglobin Sodium 148 H Potassium 3.2 L Chloride 116.7 H Carbon Dioxide 18 L BUN 69 H Creatinine 2.0 H Glucose 197 H POC Glucose 185 H Hemoglobin A1c Lactic Acid Calcium 6.8 L Phosphorus 1.70 L Magnesium AST ALT Ammonia Troponin T C-Reactive Protein Total Protein Albumin Triglycerides LDL Cholesterol Direct HDL Cholesterol Urine Creatinine Urine Total Protein 07/30/22 07/30/22 07/30/22 11:41 16:14 23:07 WBC RBC Hgb Hct MCV MCHC RDW Plt Count [place] # (Auto) Seg Neutrophils % Seg Neuts % (Manual) Lymphocytes % (Manual) Seg Neutrophils # Seg Neutrophils # Man Lymphocytes # (Manual) ABG pH ABG pO2 ABG HCO3 ABG O2 Saturation ABG Base Excess ABG Hemoglobin Oxyhemoglobin Sodium Potassium Chloride Carbon Dioxide BUN Creatinine Glucose POC Glucose 199 H 173 H 159 H Hemoglobin A1c Lactic Acid Calcium Phosphorus Magnesium AST ALT Ammonia Troponin T C-Reactive Protein Total Protein Albumin Triglycerides LDL Cholesterol Direct HDL Cholesterol Urine Creatinine Urine Total Protein 07/31/22 07/31/22 07/31/22 03:25 04:00 04:13 WBC RBC Hgb 10.5 L Hct 32.8 L MCV MCHC RDW 15.3 H Plt Count 55 L [place] # (Auto) Seg Neutrophils % Seg Neuts % (Manual) Lymphocytes % (Manual) Seg Neutrophils # Seg Neutrophils # Man Lymphocytes # (Manual) ABG pH 7.513 H ABG pO2 64.1 L ABG HCO3 ABG O2 Saturation ABG Base Excess ABG Hemoglobin 10.5 L Oxyhemoglobin 93.8 L Sodium 146 H Potassium 3.4 L Chloride 112.5 H Carbon Dioxide 21 L BUN 53 H Creatinine 1.6 H Glucose 151 H POC Glucose Hemoglobin A1c Lactic Acid Calcium 6.4 L Phosphorus Magnesium AST ALT Ammonia Troponin T C-Reactive Protein Total Protein Albumin Triglycerides LDL Cholesterol Direct HDL Cholesterol Urine Creatinine Urine Total Protein 07/31/22 07/31/22 07/31/22 05:39 11:08 16:11 WBC RBC Hgb Hct MCV MCHC RDW Plt Count [place] # (Auto) Seg Neutrophils % Seg Neuts % (Manual) Lymphocytes % (Manual) Seg Neutrophils # Seg Neutrophils # Man Lymphocytes # (Manual) ABG pH ABG pO2 ABG HCO3 ABG O2 Saturation ABG Base Excess ABG Hemoglobin Oxyhemoglobin Sodium Potassium Chloride Carbon Dioxide BUN Creatinine Glucose POC Glucose 155 H 132 H 150 H Hemoglobin A1c Lactic Acid Calcium Phosphorus Magnesium AST ALT Ammonia Troponin T C-Reactive Protein Total Protein Albumin Triglycerides LDL Cholesterol Direct HDL Cholesterol Urine Creatinine Urine Total Protein 07/31/22 08/01/22 08/01/22 23:48 04:17 04:17 WBC RBC 3.62 L Hgb 10.6 L Hct 31.8 L MCV MCHC RDW 15.7 H Plt Count 90 L [place] # (Auto) Seg Neutrophils % Seg Neuts % (Manual) Lymphocytes % (Manual) Seg Neutrophils # Seg Neutrophils # Man Lymphocytes # (Manual) ABG pH ABG pO2 ABG HCO3 ABG O2 Saturation ABG Base Excess ABG Hemoglobin Oxyhemoglobin Sodium 147 H Potassium 3.3 L Chloride 113.7 H Carbon Dioxide BUN 46 H Creatinine Glucose 141 H POC Glucose 133 H Hemoglobin A1c Lactic Acid Calcium 6.0 L Phosphorus 2.00 L Magnesium 1.50 L AST ALT Ammonia Troponin T C-Reactive Protein Total Protein Albumin Triglycerides LDL Cholesterol Direct HDL Cholesterol Urine Creatinine Urine Total Protein 08/01/22 08/01/22 08/01/22 05:46 11:17 17:44 WBC RBC Hgb Hct MCV MCHC RDW Plt Count [place] # (Auto) Seg Neutrophils % Seg Neuts % (Manual) Lymphocytes % (Manual) Seg Neutrophils # Seg Neutrophils # Man Lymphocytes # (Manual) ABG pH ABG pO2 ABG HCO3 ABG O2 Saturation ABG Base Excess ABG Hemoglobin Oxyhemoglobin Sodium Potassium Chloride Carbon Dioxide BUN Creatinine Glucose POC Glucose 116 H 190 H 179 H Hemoglobin A1c Lactic Acid Calcium Phosphorus Magnesium AST ALT Ammonia Troponin T C-Reactive Protein Total Protein Albumin Triglycerides LDL Cholesterol Direct HDL Cholesterol Urine Creatinine Urine Total Protein 08/01/22 08/02/22 08/02/22 23:34 04:48 04:48 WBC RBC 3.61 L Hgb 10.2 L Hct 31.9 L MCV MCHC RDW 15.8 H Plt Count 130 L [place] # (Auto) Seg Neutrophils % Seg Neuts % (Manual) Lymphocytes % (Manual) Seg Neutrophils # Seg Neutrophils # Man Lymphocytes # (Manual) ABG pH ABG pO2 ABG HCO3 ABG O2 Saturation ABG Base Excess ABG Hemoglobin Oxyhemoglobin Sodium 148 H Potassium 3.4 L Chloride 113.1 H Carbon Dioxide 16 L BUN 45 H Creatinine Glucose 213 H POC Glucose 193 H Hemoglobin A1c Lactic Acid Calcium 5.9 L* Phosphorus 2.30 L Magnesium AST ALT Ammonia Troponin T C-Reactive Protein Total Protein Albumin Triglycerides LDL Cholesterol Direct HDL Cholesterol Urine Creatinine Urine Total Protein 08/02/22 08/02/22 08/02/22 05:38 23:04 23:30 WBC RBC Hgb Hct MCV MCHC RDW Plt Count [place] # (Auto) Seg Neutrophils % Seg Neuts % (Manual) Lymphocytes % (Manual) Seg Neutrophils # Seg Neutrophils # Man Lymphocytes # (Manual) ABG pH ABG pO2 ABG HCO3 ABG O2 Saturation ABG Base Excess ABG Hemoglobin Oxyhemoglobin Sodium Potassium Chloride Carbon Dioxide BUN Creatinine Glucose POC Glucose 193 H 65 L 111 H Hemoglobin A1c Lactic Acid Calcium Phosphorus Magnesium AST ALT Ammonia Troponin T C-Reactive Protein Total Protein Albumin Triglycerides LDL Cholesterol Direct HDL Cholesterol Urine Creatinine Urine Total Protein 08/03/22 08/03/22 08/03/22 03:35 04:40 04:40 WBC 12.7 H RBC 3.36 L Hgb 9.5 L Hct 29.8 L MCV MCHC RDW 15.7 H Plt Count [place] # (Auto) Seg Neutrophils % Seg Neuts % (Manual) Lymphocytes % (Manual) Seg Neutrophils # Seg Neutrophils # Man Lymphocytes # (Manual) ABG pH 7.500 H ABG pO2 129.6 H ABG HCO3 ABG O2 Saturation ABG Base Excess ABG Hemoglobin 9.7 L Oxyhemoglobin Sodium Potassium 3.3 L Chloride 107.9 H Carbon Dioxide 21 L BUN 37 H Creatinine Glucose 111 H POC Glucose Hemoglobin A1c Lactic Acid Calcium 5.5 L* Phosphorus Magnesium 1.60 L AST ALT Ammonia Troponin T C-Reactive Protein Total Protein Albumin Triglycerides LDL Cholesterol Direct HDL Cholesterol Urine Creatinine Urine Total Protein 08/03/22 08/03/22 08/04/22 05:24 17:18 00:17 WBC RBC Hgb Hct MCV MCHC RDW Plt Count [place] # (Auto) Seg Neutrophils % Seg Neuts % (Manual) Lymphocytes % (Manual) Seg Neutrophils # Seg Neutrophils # Man Lymphocytes # (Manual) ABG pH ABG pO2 ABG HCO3 ABG O2 Saturation ABG Base Excess ABG Hemoglobin Oxyhemoglobin Sodium Potassium Chloride Carbon Dioxide BUN Creatinine Glucose POC Glucose 115 H 111 H 64 L Hemoglobin A1c Lactic Acid Calcium Phosphorus Magnesium AST ALT Ammonia Troponin T C-Reactive Protein Total Protein Albumin Triglycerides LDL Cholesterol Direct HDL Cholesterol Urine Creatinine Urine Total Protein 08/04/22 08/04/22 08/04/22 04:39 04:39 05:36 WBC 14.2 H RBC 3.61 L Hgb 10.3 L Hct 31.2 L MCV MCHC RDW 15.4 H Plt Count [place] # (Auto) Seg Neutrophils % Seg Neuts % (Manual) Lymphocytes % (Manual) Seg Neutrophils # Seg Neutrophils # Man Lymphocytes # (Manual) ABG pH ABG pO2 ABG HCO3 ABG O2 Saturation ABG Base Excess ABG Hemoglobin Oxyhemoglobin Sodium Potassium 3.1 L Chloride Carbon Dioxide 18 L BUN 30 H Creatinine Glucose 68 L POC Glucose 68 L Hemoglobin A1c Lactic Acid Calcium 6.1 L Phosphorus 2.00 L D Magnesium AST ALT Ammonia Troponin T C-Reactive Protein Total Protein Albumin Triglycerides LDL Cholesterol Direct HDL Cholesterol Urine Creatinine Urine Total Protein 08/04/22 08/04/22 08/04/22 06:32 11:37 17:53 WBC RBC Hgb Hct MCV MCHC RDW Plt Count [place] # (Auto) Seg Neutrophils % Seg Neuts % (Manual) Lymphocytes % (Manual) Seg Neutrophils # Seg Neutrophils # Man Lymphocytes # (Manual) ABG pH ABG pO2 ABG HCO3 ABG O2 Saturation ABG Base Excess ABG Hemoglobin Oxyhemoglobin Sodium Potassium Chloride Carbon Dioxide BUN Creatinine Glucose POC Glucose 110 H 118 H 171 H Hemoglobin A1c Lactic Acid Calcium Phosphorus Magnesium AST ALT Ammonia Troponin T C-Reactive Protein Total Protein Albumin Triglycerides LDL Cholesterol Direct HDL Cholesterol Urine Creatinine Urine Total Protein 08/04/22 08/04/22 08/05/22 23:41 23:43 04:46 WBC 12.5 H RBC Hgb 10.8 L Hct 33.3 L MCV MCHC RDW 15.8 H Plt Count 138 L [place] # (Auto) Seg Neutrophils % Seg Neuts % (Manual) Lymphocytes % (Manual) Seg Neutrophils # Seg Neutrophils # Man Lymphocytes # (Manual) ABG pH ABG pO2 ABG HCO3 ABG O2 Saturation ABG Base Excess ABG Hemoglobin Oxyhemoglobin Sodium Potassium Chloride Carbon Dioxide BUN Creatinine Glucose POC Glucose 226 H 218 H Hemoglobin A1c Lactic Acid Calcium Phosphorus Magnesium AST ALT Ammonia Troponin T C-Reactive Protein Total Protein Albumin Triglycerides LDL Cholesterol Direct HDL Cholesterol Urine Creatinine Urine Total Protein 08/05/22 08/05/22 08/05/22 04:46 06:05 11:42 WBC RBC Hgb Hct MCV MCHC RDW Plt Count [place] # (Auto) Seg Neutrophils % Seg Neuts % (Manual) Lymphocytes % (Manual) Seg Neutrophils # Seg Neutrophils # Man Lymphocytes # (Manual) ABG pH ABG pO2 ABG HCO3 ABG O2 Saturation ABG Base Excess ABG Hemoglobin Oxyhemoglobin Sodium Potassium Chloride Carbon Dioxide 16 L BUN 29 H Creatinine Glucose 179 H POC Glucose 220 H 180 H Hemoglobin A1c Lactic Acid Calcium 6.1 L Phosphorus Magnesium AST ALT Ammonia Troponin T C-Reactive Protein Total Protein Albumin Triglycerides LDL Cholesterol Direct HDL Cholesterol Urine Creatinine Urine Total Protein 08/05/22 08/05/22 08/05/22 17:39 21:10 21:43 WBC RBC Hgb Hct MCV MCHC RDW Plt Count [place] # (Auto) Seg Neutrophils % Seg Neuts % (Manual) Lymphocytes % (Manual) Seg Neutrophils # Seg Neutrophils # Man Lymphocytes # (Manual) ABG pH ABG pO2 ABG HCO3 ABG O2 Saturation ABG Base Excess ABG Hemoglobin Oxyhemoglobin Sodium Potassium Chloride Carbon Dioxide BUN Creatinine Glucose POC Glucose 207 H 185 H Hemoglobin A1c Lactic Acid Calcium Phosphorus Magnesium AST ALT Ammonia Troponin T C-Reactive Protein 21.50 H Total Protein Albumin Triglycerides LDL Cholesterol Direct HDL Cholesterol Urine Creatinine Urine Total Protein 08/05/22 08/06/22 08/06/22 23:38 05:13 05:20 WBC RBC 3.32 L Hgb 9.4 L Hct 29.4 L MCV MCHC RDW 15.6 H Plt Count [place] # (Auto) Seg Neutrophils % Seg Neuts % (Manual) Lymphocytes % (Manual) Seg Neutrophils # Seg Neutrophils # Man Lymphocytes # (Manual) ABG pH ABG pO2 ABG HCO3 ABG O2 Saturation ABG Base Excess ABG Hemoglobin Oxyhemoglobin Sodium Potassium Chloride Carbon Dioxide BUN Creatinine Glucose POC Glucose 198 H 182 H Hemoglobin A1c Lactic Acid Calcium Phosphorus Magnesium AST ALT Ammonia Troponin T C-Reactive Protein Total Protein Albumin Triglycerides LDL Cholesterol Direct HDL Cholesterol Urine Creatinine Urine Total Protein 08/06/22 05:20 WBC RBC Hgb Hct MCV MCHC RDW Plt Count [place] # (Auto) Seg Neutrophils % Seg Neuts % (Manual) Lymphocytes % (Manual) Seg Neutrophils # Seg Neutrophils # Man Lymphocytes # (Manual) ABG pH ABG pO2 ABG HCO3 ABG O2 Saturation ABG Base Excess ABG Hemoglobin Oxyhemoglobin Sodium Potassium Chloride 107.2 H Carbon Dioxide 21 L BUN 25 H Creatinine Glucose 176 H POC Glucose Hemoglobin A1c Lactic Acid Calcium 6.1 L Phosphorus 1.80 L D Magnesium 1.60 L AST ALT Ammonia Troponin T C-Reactive Protein Total Protein Albumin Triglycerides LDL Cholesterol Direct HDL Cholesterol Urine Creatinine Urine Total Protein
[2022-08-06] MEDS: INSULIN GLARGINE 100 UNITS/ML SUB-Q SCH (21:35)
[2022-08-06 23:55] LABS: Basophils % (Auto) 0.2 % (0.0-1.8); Eosinophils % (Auto) 0.6 % (0.0-4.3); Hematocrit 26.2 % (35.5-45.6); Hemoglobin 8.4 gm/dl (11.8-15.2); Lymphocytes # (Auto) 0.9 K/mm3 (1.2-5.4); Lymphocytes % (Auto) 11.3 % (13.4-35.0); Mean Corpuscular HGB Conc 32 % (32-34); Mean Corpuscular Volume 88 fl (84-94); Monocytes # (Auto) 0.5 K/mm3 (0.0-0.8); Platelet Count 195 K/mm3 (140-440); Red Blood Count 2.98 M/mm3 (3.65-5.03); Red Cell Distribution Width 15.5 % (13.2-15.2)
[2022-08-07] MEDS: INSULIN REGULAR, HUMAN 100 UNITS/1 ML SUB-Q SCH ×4 (00:18→17:16)
[2022-08-07] MEDS: MEROPENEM/NS 1 GRAM/100 ML 1 GRAM/100 ML BAG IV SCH ×3 (04:38→17:16)
[2022-08-07 05:08] LABS: Hematocrit 27.4 % (35.5-45.6); Hemoglobin 8.8 gm/dl (11.8-15.2); Mean Corpuscular HGB Conc 32 % (32-34); Mean Corpuscular Volume 88 fl (84-94); Platelet Count 215 K/mm3 (140-440); Red Blood Count 3.12 M/mm3 (3.65-5.03); Red Cell Distribution Width 15.4 % (13.2-15.2)
[2022-08-07 05:25] LABS: Alanine Aminotransferase 49 units/L (7-56); Albumin 1.8 g/dL (3.9-5); BUN/Creatinine Ratio 21; Basophils % (Auto) 0.2 % (0.0-1.8); Blood Urea Nitrogen 21 mg/dL (9-20); Calcium 6.1 mg/dL (8.4-10.2); Eosinophils # (Auto) 0.1 K/mm3 (0.0-0.4); Eosinophils % (Auto) 0.7 % (0.0-4.3); Hemolysis Index 2; Lymphocytes # (Auto) 0.9 K/mm3 (1.2-5.4); Lymphocytes % (Auto) 10.6 % (13.4-35.0); Monocytes # (Auto) 0.4 K/mm3 (0.0-0.8); Monocytes % (Auto) 5.4 % (0.0-7.3)
[2022-08-07 05:31] LABS: Bilirubin,Direct < 0.2 mg/dL (0-0.2)
[2022-08-07] MEDS: SODIUM BICARBONATE 650 MG TAB FEEDTUBE SCH ×3 (08:57→20:25)
[2022-08-07] MEDS: AMIODARONE 200 MG TAB FEEDTUBE SCH ×2 (09:17→21:24)
[2022-08-07] MEDS: ENOXAPARIN 40 MG/0.4 ML INJ SUB-Q SCH (09:17)
[2022-08-07] MEDS: ACETAMINOPHEN 325 MG TAB PO PRN (09:17)
[2022-08-07] MEDS: FAMOTIDINE 10 MG TAB FEEDTUBE SCH ×2 (09:17→21:24)
[2022-08-07] MEDS: VANCOMYCIN 750 MG in SODIUM CHLORIDE 0.9% 250ML 250 ML IV SCH (09:18)
--- NOTE | 2022-08-07 12:02 | Progress Note ---
Assessment and Plan 77 y/o male with cardiac arrest, intubated, not sedated with multisystem organ failure 08/07/22: Abx therapy per ID. Tracheal aspirate was respiratory kristin. Bld Cx pending. If continues to spike fevers, need to consider repeat imaging of head (CT vs MRI). Could check for alcalculous cholecysitis. Suggest sending LFT's tomorrow. STill awaiting placement. Overall prognosis is guarded to poor. 08/04/22: CXR in am. Will order sputum as per report, secretions have increased. Abx therapy has stopped. Trach site stable. await placement. If spikes again, needs blood, urine and UA. 08/03/22: Await placement. Continue daily PSV. PT consult. 08/01/22: Follow up surgery recs. Continue supportive care. 07/31/22: Supportive care. Surgery consult for trach and peg. Renal function continues to improve. 07/30/22: Continue supportive measures. Family wants aggressive measures despite MRI findings so needs consult to surgery for trach and peg. Will drop steroids down to 25q8 or 50q12 Sunday. Continue volume as renal function is improving. needs more free water if possible. 07/29/22: Drop steroids to 50q8 starting today. CBC not checked, need to evaluate Platelets. Need to correct electrolytes as well. Family is likely going to want trach and peg based on earlier conversations but awaiting more family. Given recent MRI results, prognosis is very poor. 07/28/22: Hold on Volume today. Drop steroids down to 50q8 starting tomorrow. Follow up MRI. EEG results still pending. Platelets still dropping but no evidence of bleeding. Continue abx therapy. Continue feeds. Prognosis is still guarded. 07/27/22: more volume again today. Echo showed normal EF. Wean pressors for MAPs >65, follow up EEg results. Hopeful to get head CT today. Platelets dropped today, not on heparin. Could be sepsis related. If head CT negative, may need to evaluate abdomen around peg. Will start trickle feeds today and transition of insulin drip. Prognosis is still guarded. 1. IVF resusciation with LR 2. Insulin drip and continue NPO state 3. Attempt to wean pressors for MAPs greater than 65 4. Monitor urine output 5. Broaden abx therapy given current clinical state 6. Follow up echo report 7. Agree with stress dose steroids 8. No sedation 9. EEG pending Overall prognosis is guarded to poor, especially given current clinical exam CCT 31 minutes. Subjective Date of service: 08/07/22 Principal diagnosis: Hypernatremia, ARF Interval history: Still continued fevers, despite addition of abx by ID over the weekend. CXR was stable. Rads read as bibasliar infiltrates but no white count, no increase in oxygen requirement. Mental state is unchanged. Remainder is negative. Objective Vital Signs - 12hr 08/07/22 08/07/22 08/07/22 00:00 00:20 01:00 Temperature 100.5 F H Pulse Rate 75 73 71 Pulse Rate [ 91 H From Monitor] Respiratory 21 22 18 Rate Blood Pressure 128/63 128/63 124/63 O2 Sat by Pulse 95 97 96 Oximetry O2 Sat by Pulse Oximetry [ Assessment] 08/07/22 08/07/22 08/07/22 01:38 02:00 02:33 Temperature Pulse Rate 77 71 Pulse Rate [ 84 From Monitor] Respiratory 22 22 22 Rate Blood Pressure 121/70 O2 Sat by Pulse 97 97 97 Oximetry O2 Sat by Pulse Oximetry [ Assessment] 08/07/22 08/07/22 08/07/22 03:00 03:50 04:00 Temperature Pulse Rate 82 71 89 Pulse Rate [ 84 From Monitor] Respiratory 20 22 28 H Rate Blood Pressure 113/74 132/68 O2 Sat by Pulse 96 97 95 Oximetry O2 Sat by Pulse Oximetry [ Assessment] 08/07/22 08/07/22 08/07/22 04:04 04:45 05:00 Temperature Pulse Rate 71 91 H 90 Pulse Rate [ From Monitor] Respiratory 11 L 31 H Rate Blood Pressure 132/68 141/65 O2 Sat by Pulse 98 Oximetry O2 Sat by Pulse 98 Oximetry [ Assessment] 08/07/22 08/07/22 08/07/22 05:55 06:00 07:00 Temperature Pulse Rate 71 95 H 94 H Pulse Rate [ 84 From Monitor] Respiratory 30 H 28 H Rate Blood Pressure 156/76 162/73 O2 Sat by Pulse 97 97 96 Oximetry O2 Sat by Pulse Oximetry [ Assessment] 08/07/22 08/07/22 08/07/22 07:20 08:00 09:00 Temperature 100.8 F H 100.8 F H Pulse Rate 91 H 94 H Pulse Rate [ 97 H From Monitor] Respiratory 27 H 21 Rate Blood Pressure 129/61 167/76 O2 Sat by Pulse 98 97 Oximetry O2 Sat by Pulse 98 Oximetry [ Assessment] 08/07/22 11:46 Temperature 99.4 F Pulse Rate Pulse Rate [ From Monitor] Respiratory Rate Blood Pressure O2 Sat by Pulse Oximetry O2 Sat by Pulse Oximetry [ Assessment] CBC and BMP: 08/07/22 04:16 08/07/22 04:16 ABG, PT/INR, D-dimer: ABG ABG pH 7.500 pH Units (7.350-7.450) H 08/03/22 03:35 ABG pCO2 26.7 mm Hg 08/03/22 03:35 ABG pO2 129.6 mm Hg (80.0-90.0) H 08/03/22 03:35 ABG O2 Saturation 98.7 % (95.0-99.0) 08/03/22 03:35 PT/INR, D-dimer PT 14.3 Sec. (12.2-14.9) 07/31/22 04:13 INR 0.97 (0.87-1.13) 07/31/22 04:13 Abnormal lab findings: Abnormal Labs 07/25/22 07/25/22 07/25/22 19:37 19:37 19:37 WBC 18.8 H RBC 6.31 H Hgb 18.8 H Hct 57.3 H MCV MCHC RDW Plt Count Lymph % (Auto) Lymph # (Auto) [place] # (Auto) 1.4 H Seg Neutrophils % 70.7 H Seg Neuts % (Manual) Lymphocytes % (Manual) Seg Neutrophils # 13.3 H Seg Neutrophils # Man Lymphocytes # (Manual) ABG pH ABG pO2 ABG HCO3 ABG O2 Saturation ABG Base Excess ABG Hemoglobin Oxyhemoglobin Sodium 149 H Potassium Chloride 110.3 H Carbon Dioxide 18 L BUN 73 H Creatinine 3.3 H Glucose 761 H* POC Glucose Hemoglobin A1c Lactic Acid Calcium 10.6 H Phosphorus Magnesium 3.10 H AST 63 H ALT 64 H Ammonia Troponin T 0.072 H C-Reactive Protein Total Protein 9.0 H Albumin Triglycerides 362 H LDL Cholesterol Direct 44 L HDL Cholesterol 34 L Urine Creatinine Urine Total Protein 07/25/22 07/25/22 07/25/22 19:37 21:08 22:10 WBC RBC Hgb Hct MCV MCHC RDW Plt Count Lymph % (Auto) Lymph # (Auto) [place] # (Auto) Seg Neutrophils % Seg Neuts % (Manual) Lymphocytes % (Manual) Seg Neutrophils # Seg Neutrophils # Man Lymphocytes # (Manual) ABG pH ABG pO2 ABG HCO3 ABG O2 Saturation ABG Base Excess ABG Hemoglobin Oxyhemoglobin Sodium 155 H Potassium Chloride 113.1 H Carbon Dioxide 14 L BUN 74 H Creatinine 3.5 H Glucose 734 H* POC Glucose Hemoglobin A1c Lactic Acid 12.70 H* Calcium Phosphorus Magnesium AST ALT Ammonia 64.0 H Troponin T C-Reactive Protein Total Protein Albumin Triglycerides LDL Cholesterol Direct HDL Cholesterol Urine Creatinine Urine Total Protein 07/25/22 07/25/22 07/26/22 22:20 23:29 00:13 WBC RBC Hgb Hct MCV MCHC RDW Plt Count Lymph % (Auto) Lymph # (Auto) [place] # (Auto) Seg Neutrophils % Seg Neuts % (Manual) Lymphocytes % (Manual) Seg Neutrophils # Seg Neutrophils # Man Lymphocytes # (Manual) ABG pH 7.342 L ABG pO2 318.2 H ABG HCO3 14.4 L ABG O2 Saturation 99.5 H ABG Base Excess -9.4 L ABG Hemoglobin Oxyhemoglobin Sodium 157 H Potassium 3.1 L D Chloride 114.0 H Carbon Dioxide 21 L D BUN 72 H Creatinine 3.7 H Glucose 615 H* POC Glucose > 600 H Hemoglobin A1c Lactic Acid Calcium Phosphorus Magnesium AST ALT Ammonia Troponin T C-Reactive Protein Total Protein Albumin Triglycerides LDL Cholesterol Direct HDL Cholesterol Urine Creatinine Urine Total Protein 07/26/22 07/26/22 07/26/22 00:13 00:38 00:39 WBC 21.4 H RBC 5.88 H Hgb 17.2 H Hct 55.0 H MCV MCHC 31 L RDW 16.0 H Plt Count Lymph % (Auto) Lymph # (Auto) [place] # (Auto) Seg Neutrophils % Seg Neuts % (Manual) 77.0 H Lymphocytes % (Manual) 13.0 L Seg Neutrophils # Seg Neutrophils # Man 16.5 H Lymphocytes # (Manual) ABG pH ABG pO2 ABG HCO3 ABG O2 Saturation ABG Base Excess ABG Hemoglobin Oxyhemoglobin Sodium Potassium Chloride Carbon Dioxide BUN Creatinine Glucose POC Glucose 517 H Hemoglobin A1c Lactic Acid 9.10 H* Calcium Phosphorus Magnesium AST ALT Ammonia Troponin T C-Reactive Protein Total Protein Albumin Triglycerides LDL Cholesterol Direct HDL Cholesterol Urine Creatinine Urine Total Protein 07/26/22 07/26/22 07/26/22 00:39 01:32 02:28 WBC RBC Hgb Hct MCV MCHC RDW Plt Count Lymph % (Auto) Lymph # (Auto) [place] # (Auto) Seg Neutrophils % Seg Neuts % (Manual) Lymphocytes % (Manual) Seg Neutrophils # Seg Neutrophils # Man Lymphocytes # (Manual) ABG pH ABG pO2 ABG HCO3 ABG O2 Saturation ABG Base Excess ABG Hemoglobin Oxyhemoglobin Sodium Potassium Chloride Carbon Dioxide BUN Creatinine Glucose POC Glucose 460 H 237 H Hemoglobin A1c Lactic Acid Calcium Phosphorus 1.20 L D Magnesium 4.10 H AST ALT Ammonia Troponin T C-Reactive Protein Total Protein Albumin Triglycerides LDL Cholesterol Direct HDL Cholesterol Urine Creatinine Urine Total Protein 07/26/22 07/26/22 07/26/22 03:03 03:07 04:11 WBC RBC Hgb Hct MCV MCHC RDW Plt Count Lymph % (Auto) Lymph # (Auto) [place] # (Auto) Seg Neutrophils % Seg Neuts % (Manual) Lymphocytes % (Manual) Seg Neutrophils # Seg Neutrophils # Man Lymphocytes # (Manual) ABG pH ABG pO2 ABG HCO3 ABG O2 Saturation ABG Base Excess ABG Hemoglobin Oxyhemoglobin Sodium Potassium Chloride Carbon Dioxide BUN Creatinine Glucose POC Glucose 433 H 370 H 338 H Hemoglobin A1c Lactic Acid Calcium Phosphorus Magnesium AST ALT Ammonia Troponin T C-Reactive Protein Total Protein Albumin Triglycerides LDL Cholesterol Direct HDL Cholesterol Urine Creatinine Urine Total Protein 07/26/22 07/26/22 07/26/22 04:35 04:35 04:40 WBC RBC Hgb Hct MCV MCHC RDW Plt Count Lymph % (Auto) Lymph # (Auto) [place] # (Auto) Seg Neutrophils % Seg Neuts % (Manual) Lymphocytes % (Manual) Seg Neutrophils # Seg Neutrophils # Man Lymphocytes # (Manual) ABG pH 7.301 L ABG pO2 178.2 H ABG HCO3 11.0 L ABG O2 Saturation 99.1 H ABG Base Excess -13.3 L ABG Hemoglobin Oxyhemoglobin Sodium 162 H* Potassium 3.0 L Chloride 124.8 H Carbon Dioxide 18 L BUN 69 H Creatinine 3.9 H Glucose 385 H POC Glucose Hemoglobin A1c Lactic Acid 8.20 H* Calcium 7.8 L Phosphorus Magnesium AST ALT Ammonia Troponin T C-Reactive Protein Total Protein Albumin Triglycerides LDL Cholesterol Direct HDL Cholesterol Urine Creatinine Urine Total Protein 07/26/22 07/26/22 07/26/22 05:01 06:14 06:52 WBC RBC Hgb Hct MCV MCHC RDW Plt Count Lymph % (Auto) Lymph # (Auto) [place] # (Auto) Seg Neutrophils % Seg Neuts % (Manual) Lymphocytes % (Manual) Seg Neutrophils # Seg Neutrophils # Man Lymphocytes # (Manual) ABG pH ABG pO2 ABG HCO3 ABG O2 Saturation ABG Base Excess ABG Hemoglobin Oxyhemoglobin Sodium Potassium Chloride Carbon Dioxide BUN Creatinine Glucose POC Glucose 347 H 300 H 278 H Hemoglobin A1c Lactic Acid Calcium Phosphorus Magnesium AST ALT Ammonia Troponin T C-Reactive Protein Total Protein Albumin Triglycerides LDL Cholesterol Direct HDL Cholesterol Urine Creatinine Urine Total Protein 07/26/22 07/26/22 07/26/22 07:59 08:58 10:04 WBC RBC Hgb Hct MCV MCHC RDW Plt Count Lymph % (Auto) Lymph # (Auto) [place] # (Auto) Seg Neutrophils % Seg Neuts % (Manual) Lymphocytes % (Manual) Seg Neutrophils # Seg Neutrophils # Man Lymphocytes # (Manual) ABG pH ABG pO2 ABG HCO3 ABG O2 Saturation ABG Base Excess ABG Hemoglobin Oxyhemoglobin Sodium Potassium Chloride Carbon Dioxide BUN Creatinine Glucose POC Glucose 269 H 277 H 244 H Hemoglobin A1c Lactic Acid Calcium Phosphorus Magnesium AST ALT Ammonia Troponin T C-Reactive Protein Total Protein Albumin Triglycerides LDL Cholesterol Direct HDL Cholesterol Urine Creatinine Urine Total Protein 07/26/22 07/26/22 07/26/22 11:03 11:53 13:08 WBC RBC Hgb Hct MCV MCHC RDW Plt Count Lymph % (Auto) Lymph # (Auto) [place] # (Auto) Seg Neutrophils % Seg Neuts % (Manual) Lymphocytes % (Manual) Seg Neutrophils # Seg Neutrophils # Man Lymphocytes # (Manual) ABG pH ABG pO2 ABG HCO3 ABG O2 Saturation ABG Base Excess ABG Hemoglobin Oxyhemoglobin Sodium Potassium Chloride Carbon Dioxide BUN Creatinine Glucose POC Glucose 253 H 213 H 194 H Hemoglobin A1c Lactic Acid Calcium Phosphorus Magnesium AST ALT Ammonia Troponin T C-Reactive Protein Total Protein Albumin Triglycerides LDL Cholesterol Direct HDL Cholesterol Urine Creatinine Urine Total Protein 07/26/22 07/26/22 07/26/22 14:24 14:56 14:57 WBC RBC Hgb Hct MCV MCHC RDW Plt Count Lymph % (Auto) Lymph # (Auto) [place] # (Auto) Seg Neutrophils % Seg Neuts % (Manual) Lymphocytes % (Manual) Seg Neutrophils # Seg Neutrophils # Man Lymphocytes # (Manual) ABG pH ABG pO2 ABG HCO3 ABG O2 Saturation ABG Base Excess ABG Hemoglobin Oxyhemoglobin Sodium Potassium Chloride Carbon Dioxide BUN Creatinine Glucose POC Glucose 185 H 236 H 207 H Hemoglobin A1c Lactic Acid Calcium Phosphorus Magnesium AST ALT Ammonia Troponin T C-Reactive Protein Total Protein Albumin Triglycerides LDL Cholesterol Direct HDL Cholesterol Urine Creatinine Urine Total Protein 07/26/22 07/26/22 07/26/22 15:36 15:36 15:36 WBC RBC Hgb Hct MCV MCHC RDW Plt Count Lymph % (Auto) Lymph # (Auto) [place] # (Auto) Seg Neutrophils % Seg Neuts % (Manual) Lymphocytes % (Manual) Seg Neutrophils # Seg Neutrophils # Man Lymphocytes # (Manual) ABG pH ABG pO2 ABG HCO3 ABG O2 Saturation ABG Base Excess ABG Hemoglobin Oxyhemoglobin Sodium 160 H Potassium Chloride 126.2 H Carbon Dioxide 18 L BUN 59 H Creatinine 3.2 H Glucose 227 H POC Glucose Hemoglobin A1c Lactic Acid 9.70 H* Calcium 7.1 L Phosphorus Magnesium AST ALT Ammonia Troponin T 0.049 H D C-Reactive Protein Total Protein Albumin Triglycerides LDL Cholesterol Direct HDL Cholesterol Urine Creatinine Urine Total Protein 07/26/22 07/26/22 07/26/22 15:57 16:32 17:04 WBC RBC Hgb Hct MCV MCHC RDW Plt Count Lymph % (Auto) Lymph # (Auto) [place] # (Auto) Seg Neutrophils % Seg Neuts % (Manual) Lymphocytes % (Manual) Seg Neutrophils # Seg Neutrophils # Man Lymphocytes # (Manual) ABG pH ABG pO2 ABG HCO3 ABG O2 Saturation ABG Base Excess ABG Hemoglobin Oxyhemoglobin Sodium Potassium Chloride Carbon Dioxide BUN Creatinine Glucose POC Glucose 207 H 189 H 219 H Hemoglobin A1c Lactic Acid Calcium Phosphorus Magnesium AST ALT Ammonia Troponin T C-Reactive Protein Total Protein Albumin Triglycerides LDL Cholesterol Direct HDL Cholesterol Urine Creatinine Urine Total Protein 07/26/22 07/26/22 07/26/22 18:00 18:10 18:52 WBC RBC Hgb Hct MCV MCHC RDW Plt Count Lymph % (Auto) Lymph # (Auto) [place] # (Auto) Seg Neutrophils % Seg Neuts % (Manual) Lymphocytes % (Manual) Seg Neutrophils # Seg Neutrophils # Man Lymphocytes # (Manual) ABG pH ABG pO2 ABG HCO3 ABG O2 Saturation ABG Base Excess ABG Hemoglobin Oxyhemoglobin Sodium Potassium Chloride Carbon Dioxide BUN Creatinine Glucose POC Glucose 197 H 194 H Hemoglobin A1c Lactic Acid Calcium Phosphorus Magnesium AST ALT Ammonia Troponin T C-Reactive Protein Total Protein Albumin Triglycerides LDL Cholesterol Direct HDL Cholesterol Urine Creatinine 118.4 H Urine Total Protein 146 H 07/26/22 07/26/22 07/26/22 20:47 21:30 21:51 WBC RBC Hgb Hct MCV MCHC RDW Plt Count Lymph % (Auto) Lymph # (Auto) [place] # (Auto) Seg Neutrophils % Seg Neuts % (Manual) Lymphocytes % (Manual) Seg Neutrophils # Seg Neutrophils # Man Lymphocytes # (Manual) ABG pH ABG pO2 ABG HCO3 ABG O2 Saturation ABG Base Excess ABG Hemoglobin Oxyhemoglobin Sodium 155 H Potassium Chloride 123.5 H Carbon Dioxide 16 L BUN 53 H Creatinine 2.9 H Glucose 185 H POC Glucose 134 H 124 H Hemoglobin A1c Lactic Acid Calcium 7.0 L Phosphorus Magnesium AST ALT Ammonia Troponin T C-Reactive Protein Total Protein Albumin Triglycerides LDL Cholesterol Direct HDL Cholesterol Urine Creatinine Urine Total Protein 07/26/22 07/26/22 07/27/22 22:47 23:52 00:45 WBC RBC Hgb Hct MCV MCHC RDW Plt Count Lymph % (Auto) Lymph # (Auto) [place] # (Auto) Seg Neutrophils % Seg Neuts % (Manual) Lymphocytes % (Manual) Seg Neutrophils # Seg Neutrophils # Man Lymphocytes # (Manual) ABG pH ABG pO2 ABG HCO3 ABG O2 Saturation ABG Base Excess ABG Hemoglobin Oxyhemoglobin Sodium 155 H Potassium Chloride 124.2 H Carbon Dioxide 19 L BUN 53 H Creatinine 2.5 H Glucose 168 H POC Glucose 138 H 150 H Hemoglobin A1c Lactic Acid Calcium 6.7 L Phosphorus Magnesium AST ALT Ammonia Troponin T C-Reactive Protein Total Protein Albumin Triglycerides LDL Cholesterol Direct HDL Cholesterol Urine Creatinine Urine Total Protein 07/27/22 07/27/22 07/27/22 00:58 02:45 03:50 WBC 15.4 H RBC Hgb Hct MCV MCHC RDW 15.3 H Plt Count 60 L Lymph % (Auto) Lymph # (Auto) [place] # (Auto) Seg Neutrophils % Seg Neuts % (Manual) 78.0 H Lymphocytes % (Manual) 3.0 L Seg Neutrophils # Seg Neutrophils # Man 12.0 H Lymphocytes # (Manual) 0.5 L ABG pH ABG pO2 ABG HCO3 ABG O2 Saturation ABG Base Excess ABG Hemoglobin Oxyhemoglobin Sodium Potassium Chloride Carbon Dioxide BUN Creatinine Glucose POC Glucose 153 H 150 H Hemoglobin A1c Lactic Acid Calcium Phosphorus Magnesium AST ALT Ammonia Troponin T C-Reactive Protein Total Protein Albumin Triglycerides LDL Cholesterol Direct HDL Cholesterol Urine Creatinine Urine Total Protein 07/27/22 07/27/22 07/27/22 03:50 03:55 04:57 WBC RBC Hgb Hct MCV MCHC RDW Plt Count Lymph % (Auto) Lymph # (Auto) [place] # (Auto) Seg Neutrophils % Seg Neuts % (Manual) Lymphocytes % (Manual) Seg Neutrophils # Seg Neutrophils # Man Lymphocytes # (Manual) ABG pH ABG pO2 110.1 H ABG HCO3 13.3 L ABG O2 Saturation ABG Base Excess -9.0 L ABG Hemoglobin 13.1 L Oxyhemoglobin Sodium 154 H Potassium Chloride 123.0 H Carbon Dioxide 19 L BUN 55 H Creatinine 2.8 H Glucose 153 H POC Glucose 112 H Hemoglobin A1c Lactic Acid Calcium 6.8 L Phosphorus 1.30 L Magnesium AST 64 H ALT Ammonia Troponin T C-Reactive Protein Total Protein 4.1 L D Albumin 2.1 L Triglycerides LDL Cholesterol Direct HDL Cholesterol Urine Creatinine Urine Total Protein 07/27/22 07/27/22 07/27/22 08:22 09:30 10:49 WBC RBC Hgb Hct MCV MCHC RDW Plt Count Lymph % (Auto) Lymph # (Auto) [place] # (Auto) Seg Neutrophils % Seg Neuts % (Manual) Lymphocytes % (Manual) Seg Neutrophils # Seg Neutrophils # Man Lymphocytes # (Manual) ABG pH ABG pO2 ABG HCO3 ABG O2 Saturation ABG Base Excess ABG Hemoglobin Oxyhemoglobin Sodium Potassium Chloride Carbon Dioxide BUN Creatinine Glucose POC Glucose 146 H 153 H 163 H Hemoglobin A1c Lactic Acid Calcium Phosphorus Magnesium AST ALT Ammonia Troponin T C-Reactive Protein Total Protein Albumin Triglycerides LDL Cholesterol Direct HDL Cholesterol Urine Creatinine Urine Total Protein 07/27/22 07/27/22 07/27/22 12:13 12:44 17:17 WBC RBC Hgb Hct MCV MCHC RDW Plt Count Lymph % (Auto) Lymph # (Auto) [place] # (Auto) Seg Neutrophils % Seg Neuts % (Manual) Lymphocytes % (Manual) Seg Neutrophils # Seg Neutrophils # Man Lymphocytes # (Manual) ABG pH ABG pO2 ABG HCO3 ABG O2 Saturation ABG Base Excess ABG Hemoglobin Oxyhemoglobin Sodium Potassium Chloride Carbon Dioxide BUN Creatinine Glucose POC Glucose 190 H 287 H Hemoglobin A1c 12.3 H Lactic Acid Calcium Phosphorus Magnesium AST ALT Ammonia Troponin T C-Reactive Protein Total Protein Albumin Triglycerides LDL Cholesterol Direct HDL Cholesterol Urine Creatinine Urine Total Protein 07/28/22 07/28/22 07/28/22 00:22 03:58 04:05 WBC RBC Hgb Hct MCV MCHC RDW Plt Count Lymph % (Auto) Lymph # (Auto) [place] # (Auto) Seg Neutrophils % Seg Neuts % (Manual) Lymphocytes % (Manual) Seg Neutrophils # Seg Neutrophils # Man Lymphocytes # (Manual) ABG pH ABG pO2 171.2 H ABG HCO3 12.3 L ABG O2 Saturation 99.2 H ABG Base Excess -9.7 L ABG Hemoglobin 10.9 L Oxyhemoglobin Sodium 148 H Potassium Chloride 117.0 H Carbon Dioxide 16 L BUN 74 H Creatinine 3.2 H Glucose 471 H POC Glucose 379 H Hemoglobin A1c Lactic Acid Calcium 6.2 L Phosphorus Magnesium AST ALT Ammonia Troponin T C-Reactive Protein Total Protein Albumin Triglycerides LDL Cholesterol Direct HDL Cholesterol Urine Creatinine Urine Total Protein 07/28/22 07/28/22 07/28/22 04:05 05:36 12:50 WBC 13.9 H RBC Hgb 11.2 L Hct MCV MCHC 31 L RDW 15.9 H Plt Count 48 L Lymph % (Auto) Lymph # (Auto) [place] # (Auto) Seg Neutrophils % Seg Neuts % (Manual) Lymphocytes % (Manual) Seg Neutrophils # Seg Neutrophils # Man Lymphocytes # (Manual) ABG pH ABG pO2 ABG HCO3 ABG O2 Saturation ABG Base Excess ABG Hemoglobin Oxyhemoglobin Sodium Potassium Chloride Carbon Dioxide BUN Creatinine Glucose POC Glucose 390 H 399 H Hemoglobin A1c Lactic Acid Calcium Phosphorus Magnesium AST ALT Ammonia Troponin T C-Reactive Protein Total Protein Albumin Triglycerides LDL Cholesterol Direct HDL Cholesterol Urine Creatinine Urine Total Protein 07/28/22 07/28/22 07/28/22 17:27 18:16 23:31 WBC RBC Hgb Hct MCV MCHC RDW Plt Count Lymph % (Auto) Lymph # (Auto) [place] # (Auto) Seg Neutrophils % Seg Neuts % (Manual) Lymphocytes % (Manual) Seg Neutrophils # Seg Neutrophils # Man Lymphocytes # (Manual) ABG pH ABG pO2 ABG HCO3 ABG O2 Saturation ABG Base Excess ABG Hemoglobin Oxyhemoglobin Sodium Potassium Chloride Carbon Dioxide BUN Creatinine Glucose POC Glucose 434 H 331 H Hemoglobin A1c Lactic Acid Calcium Phosphorus 2.00 L D Magnesium AST ALT Ammonia Troponin T C-Reactive Protein Total Protein Albumin Triglycerides LDL Cholesterol Direct HDL Cholesterol Urine Creatinine Urine Total Protein 07/29/22 07/29/22 07/29/22 04:47 05:30 06:10 WBC RBC Hgb Hct MCV MCHC RDW Plt Count Lymph % (Auto) Lymph # (Auto) [place] # (Auto) Seg Neutrophils % Seg Neuts % (Manual) Lymphocytes % (Manual) Seg Neutrophils # Seg Neutrophils # Man Lymphocytes # (Manual) ABG pH 7.498 H ABG pO2 166.4 H ABG HCO3 16.2 L ABG O2 Saturation 99.1 H ABG Base Excess -5.4 L ABG Hemoglobin 10.7 L Oxyhemoglobin Sodium 151 H Potassium 3.5 L D Chloride 120.4 H Carbon Dioxide 17 L BUN 80 H Creatinine 2.8 H Glucose 303 H POC Glucose 261 H Hemoglobin A1c Lactic Acid Calcium 6.9 L Phosphorus Magnesium AST ALT Ammonia Troponin T C-Reactive Protein Total Protein Albumin Triglycerides LDL Cholesterol Direct HDL Cholesterol Urine Creatinine Urine Total Protein 07/29/22 07/29/22 07/29/22 09:18 12:31 13:40 WBC 16.0 H RBC Hgb Hct MCV 96 H MCHC 30 L RDW 17.6 H Plt Count 84 L Lymph % (Auto) Lymph # (Auto) [place] # (Auto) Seg Neutrophils % Seg Neuts % (Manual) Lymphocytes % (Manual) Seg Neutrophils # Seg Neutrophils # Man Lymphocytes # (Manual) ABG pH ABG pO2 ABG HCO3 ABG O2 Saturation ABG Base Excess ABG Hemoglobin Oxyhemoglobin Sodium Potassium Chloride Carbon Dioxide BUN Creatinine Glucose POC Glucose 287 H 291 H Hemoglobin A1c Lactic Acid Calcium Phosphorus Magnesium AST ALT Ammonia Troponin T C-Reactive Protein Total Protein Albumin Triglycerides LDL Cholesterol Direct HDL Cholesterol Urine Creatinine Urine Total Protein 07/29/22 07/29/22 07/30/22 17:19 23:57 04:25 WBC RBC Hgb Hct MCV MCHC RDW Plt Count Lymph % (Auto) Lymph # (Auto) [place] # (Auto) Seg Neutrophils % Seg Neuts % (Manual) Lymphocytes % (Manual) Seg Neutrophils # Seg Neutrophils # Man Lymphocytes # (Manual) ABG pH 7.461 H ABG pO2 123.0 H ABG HCO3 18.6 L ABG O2 Saturation ABG Base Excess -4.1 L ABG Hemoglobin 10.8 L Oxyhemoglobin Sodium Potassium Chloride Carbon Dioxide BUN Creatinine Glucose POC Glucose 272 H 205 H Hemoglobin A1c Lactic Acid Calcium Phosphorus Magnesium AST ALT Ammonia Troponin T C-Reactive Protein Total Protein Albumin Triglycerides LDL Cholesterol Direct HDL Cholesterol Urine Creatinine Urine Total Protein 07/30/22 07/30/22 07/30/22 04:42 04:42 05:17 WBC RBC Hgb 11.1 L Hct 33.1 L D MCV MCHC RDW 16.0 H Plt Count 34 L Lymph % (Auto) Lymph # (Auto) [place] # (Auto) Seg Neutrophils % Seg Neuts % (Manual) Lymphocytes % (Manual) Seg Neutrophils # Seg Neutrophils # Man Lymphocytes # (Manual) ABG pH ABG pO2 ABG HCO3 ABG O2 Saturation ABG Base Excess ABG Hemoglobin Oxyhemoglobin Sodium 148 H Potassium 3.2 L Chloride 116.7 H Carbon Dioxide 18 L BUN 69 H Creatinine 2.0 H Glucose 197 H POC Glucose 185 H Hemoglobin A1c Lactic Acid Calcium 6.8 L Phosphorus 1.70 L Magnesium AST ALT Ammonia Troponin T C-Reactive Protein Total Protein Albumin Triglycerides LDL Cholesterol Direct HDL Cholesterol Urine Creatinine Urine Total Protein 07/30/22 07/30/22 07/30/22 11:41 16:14 23:07 WBC RBC Hgb Hct MCV MCHC RDW Plt Count Lymph % (Auto) Lymph # (Auto) [place] # (Auto) Seg Neutrophils % Seg Neuts % (Manual) Lymphocytes % (Manual) Seg Neutrophils # Seg Neutrophils # Man Lymphocytes # (Manual) ABG pH ABG pO2 ABG HCO3 ABG O2 Saturation ABG Base Excess ABG Hemoglobin Oxyhemoglobin Sodium Potassium Chloride Carbon Dioxide BUN Creatinine Glucose POC Glucose 199 H 173 H 159 H Hemoglobin A1c Lactic Acid Calcium Phosphorus Magnesium AST ALT Ammonia Troponin T C-Reactive Protein Total Protein Albumin Triglycerides LDL Cholesterol Direct HDL Cholesterol Urine Creatinine Urine Total Protein 07/31/22 07/31/22 07/31/22 03:25 04:00 04:13 WBC RBC Hgb 10.5 L Hct 32.8 L MCV MCHC RDW 15.3 H Plt Count 55 L Lymph % (Auto) Lymph # (Auto) [place] # (Auto) Seg Neutrophils % Seg Neuts % (Manual) Lymphocytes % (Manual) Seg Neutrophils # Seg Neutrophils # Man Lymphocytes # (Manual) ABG pH 7.513 H ABG pO2 64.1 L ABG HCO3 ABG O2 Saturation ABG Base Excess ABG Hemoglobin 10.5 L Oxyhemoglobin 93.8 L Sodium 146 H Potassium 3.4 L Chloride 112.5 H Carbon Dioxide 21 L BUN 53 H Creatinine 1.6 H Glucose 151 H POC Glucose Hemoglobin A1c Lactic Acid Calcium 6.4 L Phosphorus Magnesium AST ALT Ammonia Troponin T C-Reactive Protein Total Protein Albumin Triglycerides LDL Cholesterol Direct HDL Cholesterol Urine Creatinine Urine Total Protein 07/31/22 07/31/22 07/31/22 05:39 11:08 16:11 WBC RBC Hgb Hct MCV MCHC RDW Plt Count Lymph % (Auto) Lymph # (Auto) [place] # (Auto) Seg Neutrophils % Seg Neuts % (Manual) Lymphocytes % (Manual) Seg Neutrophils # Seg Neutrophils # Man Lymphocytes # (Manual) ABG pH ABG pO2 ABG HCO3 ABG O2 Saturation ABG Base Excess ABG Hemoglobin Oxyhemoglobin Sodium Potassium Chloride Carbon Dioxide BUN Creatinine Glucose POC Glucose 155 H 132 H 150 H Hemoglobin A1c Lactic Acid Calcium Phosphorus Magnesium AST ALT Ammonia Troponin T C-Reactive Protein Total Protein Albumin Triglycerides LDL Cholesterol Direct HDL Cholesterol Urine Creatinine Urine Total Protein 07/31/22 08/01/22 08/01/22 23:48 04:17 04:17 WBC RBC 3.62 L Hgb 10.6 L Hct 31.8 L MCV MCHC RDW 15.7 H Plt Count 90 L Lymph % (Auto) Lymph # (Auto) [place] # (Auto) Seg Neutrophils % Seg Neuts % (Manual) Lymphocytes % (Manual) Seg Neutrophils # Seg Neutrophils # Man Lymphocytes # (Manual) ABG pH ABG pO2 ABG HCO3 ABG O2 Saturation ABG Base Excess ABG Hemoglobin Oxyhemoglobin Sodium 147 H Potassium 3.3 L Chloride 113.7 H Carbon Dioxide BUN 46 H Creatinine Glucose 141 H POC Glucose 133 H Hemoglobin A1c Lactic Acid Calcium 6.0 L Phosphorus 2.00 L Magnesium 1.50 L AST ALT Ammonia Troponin T C-Reactive Protein Total Protein Albumin Triglycerides LDL Cholesterol Direct HDL Cholesterol Urine Creatinine Urine Total Protein 08/01/22 08/01/22 08/01/22 05:46 11:17 17:44 WBC RBC Hgb Hct MCV MCHC RDW Plt Count Lymph % (Auto) Lymph # (Auto) [place] # (Auto) Seg Neutrophils % Seg Neuts % (Manual) Lymphocytes % (Manual) Seg Neutrophils # Seg Neutrophils # Man Lymphocytes # (Manual) ABG pH ABG pO2 ABG HCO3 ABG O2 Saturation ABG Base Excess ABG Hemoglobin Oxyhemoglobin Sodium Potassium Chloride Carbon Dioxide BUN Creatinine Glucose POC Glucose 116 H 190 H 179 H Hemoglobin A1c Lactic Acid Calcium Phosphorus Magnesium AST ALT Ammonia Troponin T C-Reactive Protein Total Protein Albumin Triglycerides LDL Cholesterol Direct HDL Cholesterol Urine Creatinine Urine Total Protein 08/01/22 08/02/22 08/02/22 23:34 04:48 04:48 WBC RBC 3.61 L Hgb 10.2 L Hct 31.9 L MCV MCHC RDW 15.8 H Plt Count 130 L Lymph % (Auto) Lymph # (Auto) [place] # (Auto) Seg Neutrophils % Seg Neuts % (Manual) Lymphocytes % (Manual) Seg Neutrophils # Seg Neutrophils # Man Lymphocytes # (Manual) ABG pH ABG pO2 ABG HCO3 ABG O2 Saturation ABG Base Excess ABG Hemoglobin Oxyhemoglobin Sodium 148 H Potassium 3.4 L Chloride 113.1 H Carbon Dioxide 16 L BUN 45 H Creatinine Glucose 213 H POC Glucose 193 H Hemoglobin A1c Lactic Acid Calcium 5.9 L* Phosphorus 2.30 L Magnesium AST ALT Ammonia Troponin T C-Reactive Protein Total Protein Albumin Triglycerides LDL Cholesterol Direct HDL Cholesterol Urine Creatinine Urine Total Protein 08/02/22 08/02/22 08/02/22 05:38 23:04 23:30 WBC RBC Hgb Hct MCV MCHC RDW Plt Count Lymph % (Auto) Lymph # (Auto) [place] # (Auto) Seg Neutrophils % Seg Neuts % (Manual) Lymphocytes % (Manual) Seg Neutrophils # Seg Neutrophils # Man Lymphocytes # (Manual) ABG pH ABG pO2 ABG HCO3 ABG O2 Saturation ABG Base Excess ABG Hemoglobin Oxyhemoglobin Sodium Potassium Chloride Carbon Dioxide BUN Creatinine Glucose POC Glucose 193 H 65 L 111 H Hemoglobin A1c Lactic Acid Calcium Phosphorus Magnesium AST ALT Ammonia Troponin T C-Reactive Protein Total Protein Albumin Triglycerides LDL Cholesterol Direct HDL Cholesterol Urine Creatinine Urine Total Protein 08/03/22 08/03/22 08/03/22 03:35 04:40 04:40 WBC 12.7 H RBC 3.36 L Hgb 9.5 L Hct 29.8 L MCV MCHC RDW 15.7 H Plt Count Lymph % (Auto) Lymph # (Auto) [place] # (Auto) Seg Neutrophils % Seg Neuts % (Manual) Lymphocytes % (Manual) Seg Neutrophils # Seg Neutrophils # Man Lymphocytes # (Manual) ABG pH 7.500 H ABG pO2 129.6 H ABG HCO3 ABG O2 Saturation ABG Base Excess ABG Hemoglobin 9.7 L Oxyhemoglobin Sodium Potassium 3.3 L Chloride 107.9 H Carbon Dioxide 21 L BUN 37 H Creatinine Glucose 111 H POC Glucose Hemoglobin A1c Lactic Acid Calcium 5.5 L* Phosphorus Magnesium 1.60 L AST ALT Ammonia Troponin T C-Reactive Protein Total Protein Albumin Triglycerides LDL Cholesterol Direct HDL Cholesterol Urine Creatinine Urine Total Protein 08/03/22 08/03/22 08/04/22 05:24 17:18 00:17 WBC RBC Hgb Hct MCV MCHC RDW Plt Count Lymph % (Auto) Lymph # (Auto) [place] # (Auto) Seg Neutrophils % Seg Neuts % (Manual) Lymphocytes % (Manual) Seg Neutrophils # Seg Neutrophils # Man Lymphocytes # (Manual) ABG pH ABG pO2 ABG HCO3 ABG O2 Saturation ABG Base Excess ABG Hemoglobin Oxyhemoglobin Sodium Potassium Chloride Carbon Dioxide BUN Creatinine Glucose POC Glucose 115 H 111 H 64 L Hemoglobin A1c Lactic Acid Calcium Phosphorus Magnesium AST ALT Ammonia Troponin T C-Reactive Protein Total Protein Albumin Triglycerides LDL Cholesterol Direct HDL Cholesterol Urine Creatinine Urine Total Protein 08/04/22 08/04/22 08/04/22 04:39 04:39 05:36 WBC 14.2 H RBC 3.61 L Hgb 10.3 L Hct 31.2 L MCV MCHC RDW 15.4 H Plt Count Lymph % (Auto) Lymph # (Auto) [place] # (Auto) Seg Neutrophils % Seg Neuts % (Manual) Lymphocytes % (Manual) Seg Neutrophils # Seg Neutrophils # Man Lymphocytes # (Manual) ABG pH ABG pO2 ABG HCO3 ABG O2 Saturation ABG Base Excess ABG Hemoglobin Oxyhemoglobin Sodium Potassium 3.1 L Chloride Carbon Dioxide 18 L BUN 30 H Creatinine Glucose 68 L POC Glucose 68 L Hemoglobin A1c Lactic Acid Calcium 6.1 L Phosphorus 2.00 L D Magnesium AST ALT Ammonia Troponin T C-Reactive Protein Total Protein Albumin Triglycerides LDL Cholesterol Direct HDL Cholesterol Urine Creatinine Urine Total Protein 08/04/22 08/04/22 08/04/22 06:32 11:37 17:53 WBC RBC Hgb Hct MCV MCHC RDW Plt Count Lymph % (Auto) Lymph # (Auto) [place] # (Auto) Seg Neutrophils % Seg Neuts % (Manual) Lymphocytes % (Manual) Seg Neutrophils # Seg Neutrophils # Man Lymphocytes # (Manual) ABG pH ABG pO2 ABG HCO3 ABG O2 Saturation ABG Base Excess ABG Hemoglobin Oxyhemoglobin Sodium Potassium Chloride Carbon Dioxide BUN Creatinine Glucose POC Glucose 110 H 118 H 171 H Hemoglobin A1c Lactic Acid Calcium Phosphorus Magnesium AST ALT Ammonia Troponin T C-Reactive Protein Total Protein Albumin Triglycerides LDL Cholesterol Direct HDL Cholesterol Urine Creatinine Urine Total Protein 08/04/22 08/04/22 08/05/22 23:41 23:43 04:46 WBC 12.5 H RBC Hgb 10.8 L Hct 33.3 L MCV MCHC RDW 15.8 H Plt Count 138 L Lymph % (Auto) Lymph # (Auto) [place] # (Auto) Seg Neutrophils % Seg Neuts % (Manual) Lymphocytes % (Manual) Seg Neutrophils # Seg Neutrophils # Man Lymphocytes # (Manual) ABG pH ABG pO2 ABG HCO3 ABG O2 Saturation ABG Base Excess ABG Hemoglobin Oxyhemoglobin Sodium Potassium Chloride Carbon Dioxide BUN Creatinine Glucose POC Glucose 226 H 218 H Hemoglobin A1c Lactic Acid Calcium Phosphorus Magnesium AST ALT Ammonia Troponin T C-Reactive Protein Total Protein Albumin Triglycerides LDL Cholesterol Direct HDL Cholesterol Urine Creatinine Urine Total Protein 08/05/22 08/05/22 08/05/22 04:46 06:05 11:42 WBC RBC Hgb Hct MCV MCHC RDW Plt Count Lymph % (Auto) Lymph # (Auto) [place] # (Auto) Seg Neutrophils % Seg Neuts % (Manual) Lymphocytes % (Manual) Seg Neutrophils # Seg Neutrophils # Man Lymphocytes # (Manual) ABG pH ABG pO2 ABG HCO3 ABG O2 Saturation ABG Base Excess ABG Hemoglobin Oxyhemoglobin Sodium Potassium Chloride Carbon Dioxide 16 L BUN 29 H Creatinine Glucose 179 H POC Glucose 220 H 180 H Hemoglobin A1c Lactic Acid Calcium 6.1 L Phosphorus Magnesium AST ALT Ammonia Troponin T C-Reactive Protein Total Protein Albumin Triglycerides LDL Cholesterol Direct HDL Cholesterol Urine Creatinine Urine Total Protein 08/05/22 08/05/22 08/05/22 17:39 21:10 21:43 WBC RBC Hgb Hct MCV MCHC RDW Plt Count Lymph % (Auto) Lymph # (Auto) [place] # (Auto) Seg Neutrophils % Seg Neuts % (Manual) Lymphocytes % (Manual) Seg Neutrophils # Seg Neutrophils # Man Lymphocytes # (Manual) ABG pH ABG pO2 ABG HCO3 ABG O2 Saturation ABG Base Excess ABG Hemoglobin Oxyhemoglobin Sodium Potassium Chloride Carbon Dioxide BUN Creatinine Glucose POC Glucose 207 H 185 H Hemoglobin A1c Lactic Acid Calcium Phosphorus Magnesium AST ALT Ammonia Troponin T C-Reactive Protein 21.50 H Total Protein Albumin Triglycerides LDL Cholesterol Direct HDL Cholesterol Urine Creatinine Urine Total Protein 08/05/22 08/06/22 08/06/22 23:38 05:13 05:20 WBC RBC 3.32 L Hgb 9.4 L Hct 29.4 L MCV MCHC RDW 15.6 H Plt Count Lymph % (Auto) Lymph # (Auto) [place] # (Auto) Seg Neutrophils % Seg Neuts % (Manual) Lymphocytes % (Manual) Seg Neutrophils # Seg Neutrophils # Man Lymphocytes # (Manual) ABG pH ABG pO2 ABG HCO3 ABG O2 Saturation ABG Base Excess ABG Hemoglobin Oxyhemoglobin Sodium Potassium Chloride Carbon Dioxide BUN Creatinine Glucose POC Glucose 198 H 182 H Hemoglobin A1c Lactic Acid Calcium Phosphorus Magnesium AST ALT Ammonia Troponin T C-Reactive Protein Total Protein Albumin Triglycerides LDL Cholesterol Direct HDL Cholesterol Urine Creatinine Urine Total Protein 08/06/22 08/06/22 08/06/22 05:20 11:25 16:13 WBC RBC Hgb Hct MCV MCHC RDW Plt Count Lymph % (Auto) Lymph # (Auto) [place] # (Auto) Seg Neutrophils % Seg Neuts % (Manual) Lymphocytes % (Manual) Seg Neutrophils # Seg Neutrophils # Man Lymphocytes # (Manual) ABG pH ABG pO2 ABG HCO3 ABG O2 Saturation ABG Base Excess ABG Hemoglobin Oxyhemoglobin Sodium Potassium Chloride 107.2 H Carbon Dioxide 21 L BUN 25 H Creatinine Glucose 176 H POC Glucose 155 H 176 H Hemoglobin A1c Lactic Acid Calcium 6.1 L Phosphorus 1.80 L D Magnesium 1.60 L AST ALT Ammonia Troponin T C-Reactive Protein Total Protein Albumin Triglycerides LDL Cholesterol Direct HDL Cholesterol Urine Creatinine Urine Total Protein 08/06/22 08/06/22 08/07/22 21:34 23:22 00:02 WBC RBC 2.98 L Hgb 8.4 L Hct 26.2 L MCV MCHC RDW 15.5 H Plt Count Lymph % (Auto) 11.3 L Lymph # (Auto) 0.9 L [place] # (Auto) Seg Neutrophils % 81.9 H Seg Neuts % (Manual) Lymphocytes % (Manual) Seg Neutrophils # Seg Neutrophils # Man Lymphocytes # (Manual) ABG pH ABG pO2 ABG HCO3 ABG O2 Saturation ABG Base Excess ABG Hemoglobin Oxyhemoglobin Sodium Potassium Chloride Carbon Dioxide BUN Creatinine Glucose POC Glucose 206 H 188 H Hemoglobin A1c Lactic Acid Calcium Phosphorus Magnesium AST ALT Ammonia Troponin T C-Reactive Protein Total Protein Albumin Triglycerides LDL Cholesterol Direct HDL Cholesterol Urine Creatinine Urine Total Protein 08/07/22 08/07/22 08/07/22 04:16 04:16 04:49 WBC RBC 3.12 L Hgb 8.8 L Hct 27.4 L MCV MCHC RDW 15.4 H Plt Count Lymph % (Auto) 10.6 L Lymph # (Auto) 0.9 L [place] # (Auto) Seg Neutrophils % 83.1 H Seg Neuts % (Manual) Lymphocytes % (Manual) Seg Neutrophils # Seg Neutrophils # Man Lymphocytes # (Manual) ABG pH ABG pO2 ABG HCO3 ABG O2 Saturation ABG Base Excess ABG Hemoglobin Oxyhemoglobin Sodium Potassium 3.4 L Chloride 107.8 H Carbon Dioxide BUN 21 H Creatinine Glucose 216 H POC Glucose 192 H Hemoglobin A1c Lactic Acid Calcium 6.1 L Phosphorus 2.00 L Magnesium AST 76 H ALT Ammonia Troponin T C-Reactive Protein Total Protein 5.1 L Albumin 1.8 L Triglycerides LDL Cholesterol Direct HDL Cholesterol Urine Creatinine Urine Total Protein 08/07/22 11:28 WBC RBC Hgb Hct MCV MCHC RDW Plt Count Lymph % (Auto) Lymph # (Auto) [place] # (Auto) Seg Neutrophils % Seg Neuts % (Manual) Lymphocytes % (Manual) Seg Neutrophils # Seg Neutrophils # Man Lymphocytes # (Manual) ABG pH ABG pO2 ABG HCO3 ABG O2 Saturation ABG Base Excess ABG Hemoglobin Oxyhemoglobin Sodium Potassium Chloride Carbon Dioxide BUN Creatinine Glucose POC Glucose 204 H Hemoglobin A1c Lactic Acid Calcium Phosphorus Magnesium AST ALT Ammonia Troponin T C-Reactive Protein Total Protein Albumin Triglycerides LDL Cholesterol Direct HDL Cholesterol Urine Creatinine Urine Total Protein
--- NOTE | 2022-08-07 17:15 | Progress Note ---
<MISTYSHANE CamaraSweta - Last Filed: 08/07/22 17:28> Assessment and Plan Assessment and plan: Assessment/ Plan This is a 77-year-old male with DM, paroxysmal atrial fibrillation, HTN, CVA (2020) admitted s/p cardiac arrest with acute hypoxic respiratory failure and DKA Neuro: Acute metabolic encephalopathy, hepatic encephalopathy, r/o ALEC and subclinical status epilepticus, h/o CVA (2019) -Sluggish pupils, no cough/gag, periodic spontaneous respiration -Neurology consulted, appreciate recommendations -Initial CT head with no acute abnormality -EEG completed -Per neurology aim for euglycemia and permissive hypertension for now -Ammonia 64 -MRI brain shows diffuse diffusion abnormality involving cerebral and cerebellum compatible with diffuse hypoxia given the patient's history, interval evolving of left [employer] infarct from 02/16/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 Cardiac: S/p cardiac arrest, A. fib RVR, h/o hypertension, paroxysmal atrial fibrillation, hyperlipidemia -Patient suffered cardiac arrest on 07/25 in the ED and then was noted to be in A. fib with RVR -Amiodarone PO -Cardiology consulted, appreciate recommendations -Blood pressure monitoring per protocol -S/p vasopressor support with Levophed and vasopressin -MAP goal greater than 65 -Echocardiogram shows EF 50 to 60%, no pericardial effusion -Lipitor Respiratory: Acute hypoxic respiratory failure -CCM consulted, appreciate recommendations -Intubated on 07/25 with a 8.00 ETT in the ED -08/02 s/p trach and peg exchange -A.m. vent settings: Assist-control rate 14, tidal volume 400, PEEP 6, FiO2 30% -See RT notes for titration -A.m. ABG and CXR noted -VAP bundle -SPO2 monitoring GI: Protein calorie malnutrition -NTR consult for tube feeding -24-hour - 30 mL -08/02 peg exchange -PPI : Acute kidney injury likely secondary to vasomotor nephropathy (resolved), hypokalemia, hypophosphatemia -S/p 5 L LR bolus -Nephrology consulted, appreciate recommendations -Serum creatinine 03/08/2020 was 1.3 -Monitor intake and output -Renally dose medications -Avoid nephrotoxic medications -FeNa 1.8% -FWF -PO Kphos PO -Renal ultrasound noted -Trend BMP ID: Sepsis, Klebsiella pneumonia -Hypotension, acute kidney injury, acute respiratory failure, lactic acidosis -Antibiotic therapy with cefepime switched to merrem and vanomycin -MRSA PCR negative -s/p solu-cortef -f/u blood culture -Monitor WBC and temperature curve Endo: s/p DKA, h/o DM -Presented with anion gap of 21, glucose of 761, VBG 7.362 -s/p Insulin drip -Accu-Cheks q6hr -SSI -Long-acting insulin when able -Hemaglobin A1C 12.3 Heme: NAD -HIT negative -Trend CBC -Transfuse hemoglobin less than 7 -SCDs to BLE while in bed The high probability of a clinically significant, sudden or life threatening deterioration of the [multi] system(s) required my full and direct attention, intervention and personal management. The aggregate critical care time was [60] minutes. This time is in addition to time spent performing reported procedures but includes the following: [x] Data Review and interpretation [x] Patient assessment and monitoring of vital signs [x] Documentation [x] Medication orders and management Disposition Plan: icu Total Time Spent with Patient (Minutes): 60 History Interval history: This is a 77-year-old male who is halfway patient at [facility] with DM, paroxysmal atrial fibrillation, HTN, CVA (2020) presents the emergency department on 07/26 via EMS with hypoglycemia and unresponsiveness. In the emergency department patient was deciding 7% on room air and was placed on nonrebreather but sats have increased to greater than 81% and the patient was obtunded therefore ED physician decided to intubate the patient. Per documentation after intubation patient went into PEA arrest and ACLS was in itiated and ROSC was achieved after approximately 13 minutes. Work-up in the emergency department revealed leukocytosis, hyponatremia 155, elevated BUN/creatinine at 3.5/74, anion gap metabolic acidosis and hyperglycemia 734. Patient was admitted to the hospital service with consults to cardiology, CCM and nephrology on DKA protocol on mechanical ventilation. Hospital course to date: 07/26: Patient is on any sedation, very sluggish pupillary response, no cough/gag noted, no seizure activity. Neurology recs repeat CT head without contrast or MRI brain without contrast when clinically stable. Patient also had a EEG completed today. Patient is currently maxed on Levophed and vasopressin. Given several LR boluses today. Antibiotics broadened and stress dose steroids added. 07/27: Weaning pressors, phosphorus repleted, SSI and long-acting insulin initiated, tube feeding initiated. Patient now has a hypoactive cough/gag. CT head pending. LR bolus. Thrombocytopenia noted. Cardiology would like to start heparin drip due to atrial fibrillation however would like neurology input prior to. 07/28: Patient remains off of vasopressors, patient had MRI today. Worsening renal function noted. Cardiology will hold off amiodarone due to thrombocytopenia. No acute events reported overnight. 07/29: I had an extensive conversation with son and at bedside to with the help of an certified court/medical interpreter through the ship's surveyor line. Explained thoroughly of presentation to the ED from documentation, cardiac arrest, CT head and MRI brain findings. They are still electing to continue aggressive care and would like hospital assistance with getting a visa for youngest son to come to the [facility] from [place]. cosmetics counter manager is aware of request. Steroid taper started. CBC pending. Will be repleted. Hypernatremia improving. 07/30: LR bolus, renal function is improved, thrombocytopenia worse. Likely consult surgery for trach/peg as per family requests to continue care. No acute events overnight. 07/31: Patient's mentation is unchanged. Remains on low vent setting. D/w [facility] general surgery consulted for possible trach and PEG. Renal function is improving, still hypenatremic, continue FWF per Nephrology. K repleted, continue to - Monitor and replace electrolytes as needed. Patient remains in SR on the monitor, VSS. Amiodarone gtt transitioned to PO amio per Cardio. 08/01: Condition unchanged, remains stable on low vent setting. Renal function continue to improve with persistent hypernatremia, continue FWF per Nephro. General Surgery recommendations noted. D/w General surgery, plan for possible trach and PEG exchange tomorrow or . 08/02: Remains stable on low vent settings. NPO since after midnight for possible trach/PEG today by General Surgery. Patient remains hypernatremic and due to NPO status, FWF was held. Will initiated low dose D5W gtt for now. And also to prevent hypoglycemia while NPO, patient is on Lantus BID. Currently on steroids taper, will hold tonight does and reduce Lantus to Qhs starting tomorrow. Close monitoring of BG and electrolytes. Nephrology is also following. 08/03: S/p trach and PEG exchange. Remains stable on the vent with no complications. Tolerating TF and also Tolerated 2hrs of PSV trial this am. C ontinue to taper IV steroids, qhs Lantus adjusted to avoid hypoglycemia. Hypernatremia improved, continue FWF per Nephro. Possible LTAC placement, case management to arrange. 08/04: ABRAM overnight. Sodium normalized this morning, electrolytes repleted, continue to monitor and replace electrolytes as needed. Nephrology is also following. Hypoglycemic overnight, TF not yet at goal, will hold Lantus for now. Continue daily PSV trial as tolerated. Possible LTAC placement, case management to arrange. 08/05: Now with thick secretions orally and via ETT, with persistent fevers. This am CXR suggesting possible developing lower lobe PNA. VSS. Will panculture and initiate empiric IV abx- Cefepine. Check CRP and procal. Remove Yañez catheter and follow Yañez removal protocol. ID was also consulted for further recs. TF is now at goal, hyperglycemic today, will resume qhs Lantus. Hyponatremia resolved , FWF adjusted. 08/06: Remains stable on low vent settings. Still with low grade fevers, procal and repeat cultures pending. ID recommendations noted. C/f for possible allergic reaction vs skin infection due to persistent skin blisters. Cefepine switched to Merrem and Vanco. Check CBC with Diff, continue to follow up on cultures. 08/07: No acute events reported overnight, T-max today 102. Hospitalist Physical - Constitutional Vitals: Temp Pulse Resp BP Pulse Ox 99.2 F 83 21 144/83 97 08/07/22 16:34 08/07/22 16:30 08/07/22 16:00 08/07/22 16:30 08/07/22 16:30 General appearance: Present: no acute distress, other (Intubated and unresponsive) - EENT Eyes: Absent: PERRL ENT: poor dentition - Neck Neck: Present: normal ROM - Respiratory Respiratory effort: normal Respiratory: bilateral: diminished - Cardiovascular Rhythm: regular Heart Sounds: Present: S1 & S2. Absent: systolic murmur, diastolic murmur - Extremities Extremities: pulses intact, pulses symmetrical Extremity abnormal: edema Peripheral Pulses: within normal limits - Abdominal General gastrointestinal: soft, non-tender, non-distended, normal bowel sounds - Integumentary Integumentary: Present: warm, dry - Psychiatric Psychiatric: other - Neurologic Neurologic: other - Allied Health Allied health notes reviewed: nursing, RT, social work HEART Score - HEART Score Troponin: Troponin T 0.049 ng/mL (0.00-0.029) H D 07/26/22 15:36 Results - Labs CBC & Chem 7: 08/07/22 04:16 08/07/22 04:16 Labs: Laboratory Last Values WBC 8.5 K/mm3 (4.5-11.0) 08/07/22 04:16 RBC 3.12 M/mm3 (3.65-5.03) L 08/07/22 04:16 Hgb 8.8 gm/dl (11.8-15.2) L 08/07/22 04:16 Hct 27.4 % (35.5-45.6) L 08/07/22 04:16 MCV 88 fl (84-94) 08/07/22 04:16 MCH 28 pg (28-32) 08/07/22 04:16 MCHC 32 % (32-34) 08/07/22 04:16 RDW 15.4 % (13.2-15.2) H 08/07/22 04:16 Plt Count 215 K/mm3 (140-440) 08/07/22 04:16 Lymph % (Auto) 10.6 % (13.4-35.0) L 08/07/22 04:16 Lee % (Auto) 5.4 % (0.0-7.3) 08/07/22 04:16 Eos % (Auto) 0.7 % (0.0-4.3) 08/07/22 04:16 Baso % (Auto) 0.2 % (0.0-1.8) 08/07/22 04:16 Lymph # (Auto) 0.9 K/mm3 (1.2-5.4) L 08/07/22 04:16 Lee # (Auto) 0.4 K/mm3 (0.0-0.8) 08/07/22 04:16 Eos # (Auto) 0.1 K/mm3 (0.0-0.4) 08/07/22 04:16 Baso # (Auto) 0.0 K/mm3 (0.0-0.1) 08/07/22 04:16 Add Manual Diff Complete 07/27/22 03:50 Total Counted 100 07/27/22 03:50 Seg Neutrophils % 83.1 % (40.0-70.0) H 08/07/22 04:16 Seg Neuts % (Manual) 78.0 % (40.0-70.0) H 07/27/22 03:50 Band Neutrophils % 16.0 % 07/27/22 03:50 Lymphocytes % (Manual) 3.0 % (13.4-35.0) L 07/27/22 03:50 Reactive Lymphs % (Man) 0 % 07/27/22 03:50 Monocytes % (Manual) 2.0 % (0.0-7.3) 07/27/22 03:50 Eosinophils % (Manual) 0 % (0.0-4.3) 07/27/22 03:50 Basophils % (Manual) 0 % (0.0-1.8) 07/27/22 03:50 Metamyelocytes % 1.0 % 07/27/22 03:50 Myelocytes % 0 % 07/27/22 03:50 Promyelocytes % 0 % 07/27/22 03:50 Blast Cells % 0 % 07/27/22 03:50 Nucleated RBC % Not Reportable 07/27/22 03:50 Seg Neutrophils # 6.7 K/mm3 (1.8-7.7) 08/07/22 04:16 Seg Neutrophils # Man 12.0 K/mm3 (1.8-7.7) H 07/27/22 03:50 Band Neutrophils # 2.5 K/mm3 07/27/22 03:50 Lymphocytes # (Manual) 0.5 K/mm3 (1.2-5.4) L 07/27/22 03:50 Abs React Lymphs (Man) 0.0 K/mm3 07/27/22 03:50 Monocytes # (Manual) 0.3 K/mm3 (0.0-0.8) 07/27/22 03:50 Eosinophils # (Manual) 0.0 K/mm3 (0.0-0.4) 07/27/22 03:50 Basophils # (Manual) 0.0 K/mm3 (0.0-0.1) 07/27/22 03:50 Metamyelocytes # 0.2 K/mm3 07/27/22 03:50 Myelocytes # 0.0 K/mm3 07/27/22 03:50 Promyelocytes # 0.0 K/mm3 07/27/22 03:50 Blast Cells # 0.0 K/mm3 07/27/22 03:50 WBC Morphology Not Reportable 07/27/22 03:50 Hypersegmented Neuts Not Reportable 07/27/22 03:50 Hyposegmented Neuts Not Reportable 07/27/22 03:50 Hypogranular Neuts Not Reportable 07/27/22 03:50 Smudge Cells Not Reportable 07/27/22 03:50 Toxic Granulation Not Reportable 07/27/22 03:50 Toxic Vacuolation Not Reportable 07/27/22 03:50 Dohle Bodies Not Reportable 07/27/22 03:50 Pelger-Huet Anomaly Not Reportable 07/27/22 03:50 Jay Rods Not Reportable 07/27/22 03:50 Platelet Estimate Consistent w auto 07/27/22 03:50 Clumped Platelets Not Reportable 07/27/22 03:50 Plt Clumps, EDTA Not Reportable 07/27/22 03:50 Large Platelets Not Reportable 07/27/22 03:50 Giant Platelets Not Reportable 07/27/22 03:50 Platelet Satelliting Not Reportable 07/27/22 03:50 Plt Morphology Comment Not Reportable 07/27/22 03:50 RBC Morphology Not Reportable 07/27/22 03:50 Dimorphic RBCs Not Reportable 07/27/22 03:50 Polychromasia Not Reportable 07/27/22 03:50 Hypochromasia Not Reportable 07/27/22 03:50 Poikilocytosis Not Reportable 07/27/22 03:50 Anisocytosis Not Reportable 07/27/22 03:50 Microcytosis Not Reportable 07/27/22 03:50 Macrocytosis Not Reportable 07/27/22 03:50 Spherocytes Not Reportable 07/27/22 03:50 Pappenheimer Bodies Not Reportable 07/27/22 03:50 Sickle Cells Not Reportable 07/27/22 03:50 Target Cells Not Reportable 07/27/22 03:50 Tear Drop Cells Not Reportable 07/27/22 03:50 Ovalocytes Not Reportable 07/27/22 03:50 Helmet Cells Not Reportable 07/27/22 03:50 [place] Bodies Not Reportable 07/27/22 03:50 Manlius Rings Not Reportable 07/27/22 03:50 Minturn Cells Not Reportable 07/27/22 03:50 Bite Cells Not Reportable 07/27/22 03:50 Crenated Cell Not Reportable 07/27/22 03:50 Elliptocytes Not Reportable 07/27/22 03:50 Acanthocytes (Spur) Not Reportable 07/27/22 03:50 Rouleaux Not Reportable 07/27/22 03:50 Hemoglobin C Crystals Not Reportable 07/27/22 03:50 Schistocytes Not Reportable 07/27/22 03:50 Malaria parasites Not Reportable 07/27/22 03:50 Peewee Bodies Not Reportable 07/27/22 03:50 Hem Pathologist Commnt No 07/27/22 03:50 PT 14.3 Sec. (12.2-14.9) 07/31/22 04:13 INR 0.97 (0.87-1.13) 07/31/22 04:13 Heparin Anti-Xa, Unfract Negative (Negative) 08/01/22 04:17 ABG pH 7.500 pH Units (7.350-7.450) H 08/03/22 03:35 ABG pCO2 26.7 mm Hg 08/03/22 03:35 ABG pO2 129.6 mm Hg (80.0-90.0) H 08/03/22 03:35 ABG HCO3 20.4 mmol/L (20.0-26.0) 08/03/22 03:35 ABG O2 Saturation 98.7 % (95.0-99.0) 08/03/22 03:35 ABG O2 Content 13.5 (0.0-44) 08/03/22 03:35 ABG Base Excess -2.0 mmol/L (-2.0-3.0) 08/03/22 03:35 ABG Hemoglobin 9.7 gm/dl (14.0-18.0) L 08/03/22 03:35 ABG Carboxyhemoglobin 1.5 % (0.0-5.0) 08/03/22 03:35 ABG Methemoglobin 0.4 % (0.0-1.5) 08/03/22 03:35 VBG pH 7.362 (7.320-7.420) 07/25/22 19:37 Oxyhemoglobin 96.8 % (95.0-99.0) 08/03/22 03:35 FiO2 30 % 08/03/22 03:35 Sodium 142 mmol/L (137-145) 08/07/22 04:16 Potassium 3.4 mmol/L (3.6-5.0) L 08/07/22 04:16 Chloride 107.8 mmol/L (98-107) H 08/07/22 04:16 Carbon Dioxide 23 mmol/L (22-30) 08/07/22 04:16 Anion Gap 15 mmol/L 08/07/22 04:16 BUN 21 mg/dL (9-20) H 08/07/22 04:16 Creatinine 1.0 mg/dL (0.8-1.3) 08/07/22 04:16 Estimated GFR > 60 ml/min 08/07/22 04:16 BUN/Creatinine Ratio 21 % 08/07/22 04:16 Glucose 216 mg/dL (75-100) H 08/07/22 04:16 POC Glucose 203 mg/dL (70-105) H 08/07/22 16:15 Hemoglobin A1c 12.3 % (4-6) H 07/27/22 12:13 Lactic Acid 9.70 mmol/L (0.7-2.0) H* 07/26/22 15:36 Calcium 6.1 mg/dL (8.4-10.2) L 08/07/22 04:16 Phosphorus 2.00 mg/dL (2.5-4.5) L 08/07/22 04:16 Magnesium 1.80 mg/dL (1.7-2.3) 08/07/22 04:16 Total Bilirubin 0.40 mg/dL (0.1-1.2) 08/07/22 04:16 Direct Bilirubin < 0.2 mg/dL (0-0.2) 08/07/22 04:16 Indirect Bilirubin 0.2 mg/dL 08/07/22 04:16 AST 76 units/L (5-40) H 08/07/22 04:16 ALT 49 units/L (7-56) 08/07/22 04:16 Alkaline Phosphatase 119 units/L (35-129) 08/07/22 04:16 Ammonia 64.0 umol/L (25-60) H 07/25/22 19:37 Total Creatine Kinase 158 units/L (55-170) 07/25/22 19:37 CK-MB (CK-2) < 1.0 ng/mL (0.0-4.0) 07/25/22 19:37 CK-MB (CK-2) Rel Index 0.6 (0-4) 07/25/22 19:37 Troponin T 0.049 ng/mL (0.00-0.029) H D 07/26/22 15:36 C-Reactive Protein 21.50 mg/dL (0.00-1.30) H 08/05/22 21:43 Total Protein 5.1 g/dL (6.3-8.2) L 08/07/22 04:16 Albumin 1.8 g/dL (3.9-5) L 08/07/22 04:16 Albumin/Globulin Ratio 0.5 % 08/07/22 04:16 Triglycerides 362 mg/dL (2-149) H 07/25/22 19:37 Cholesterol 126 mg/dL (50-199) 07/25/22 19:37 LDL Cholesterol Direct 44 mg/dL (50-130) L 07/25/22 19:37 HDL Cholesterol 34 mg/dL (40-59) L 07/25/22 19:37 Cholesterol/HDL Ratio 3.70 % 07/25/22 19:37 Serotonin Release Assay See scanned result 08/01/22 04:17 Procalcitonin 0.56 ng/mL (<0.15) 08/05/22 21:43 TSH 2.170 mlU/mL (0.270-4.200) 07/25/22 19:37 Free T4 1.18 ng/dL (0.76-1.46) 07/25/22 19:37 Urine Color Lin (Yellow) 08/05/22 11:00 Urine Turbidity Cloudy (Clear) 08/05/22 11:00 Specific Skippers (Man) 1.017 (1.003-1.030) 08/05/22 11:00 Ur Protein (Man) 2+ mg/dL (Negative) 08/05/22 11:00 Ur Ketones (Man) Negative (Negative) 08/05/22 11:00 Ur Nitrite (Man) Negative (Negative) 08/05/22 11:00 Ur Reducing Substances Not Reportable 07/26/22 08:31 Urine Bilirubin (Man) Negative (Negative) 08/05/22 11:00 Urine Ictotest Not Reportable 08/05/22 11:00 Leukocyte Esterase (Man) Negative (Negative) 08/05/22 11:00 Urine WBC (Auto) 6.0 /HPF (0.0-6.0) 08/05/22 11:00 Urine RBC (Auto) 6.0 /HPF (0.0-6.0) 08/05/22 11:00 U Epithel Cells (Auto) 1.0 /HPF (0-13.0) 08/05/22 11:00 Urine Bacteria (Auto) 1+ /HPF (Negative) 08/05/22 11:00 Urine RBC (Manual) 4+ (Negative) 08/05/22 11:00 Ur Renal Epithelial Cell 3 /LPF 07/26/22 08:31 Uric Acid Crystals Few 08/05/22 11:00 Amorphous Crystals Few 08/05/22 11:00 Urine Mucus Few /HPF 08/05/22 11:00 Urine Creatinine 118.4 mg/dL (0.1-20.0) H 07/26/22 18:10 Protein/Creatinin Ratio 1.23 07/26/22 18:10 Urine Sodium 108 mmol/L 07/26/22 18:10 Urine Total Protein 146 mg/dL (5-11.8) H 07/26/22 18:10 Nasal Screen MRSA (PCR) Negative (Negative) 08/05/22 14:00 Heparin-induced Plt Ab Negative (Negative) 08/01/22 04:17 UF Heparin High Dose 0 % Release 08/01/22 04:17 SU UFH Low Dose 0.1 0 % Release 08/01/22 04:17 SU UFH Low Dose 0.5 0 % Release 08/01/22 04:17 Microbiology: Microbiology 08/05/22 21:56 Peripheral/Venous Blood Culture - Preliminary NO GROWTH AFTER 24 HOURS 08/05/22 21:43 Peripheral/Venous Blood Culture - Preliminary NO GROWTH AFTER 24 HOURS 08/05/22 14:00 Wrist - Right Wound Culture - Preliminary 08/05/22 21:30 Tracheal Aspirate Sputum Culture - Preliminary Yañez/IV: Voiding Method Indwelling Catheter Active Medications - Current Medications Current Medications: Generic Name Dose Route Start Last Admin Trade Name Freq PRN Reason Stop Dose Admin Acetaminophen 650 mg 07/26/22 00:31 08/07/22 09:17 Acetaminophen 325 Mg Tab PO 650 mg Q4H PRN Administration Pain MILD(1-3)/Fever >100.5/ALNTIGUA Acetaminophen 650 mg 07/26/22 02:04 Acetaminophen 650 Mg Rect Supp VT Q4H PRN Pain, Mild (1-3) Albuterol 2.5 mg 07/26/22 00:31 Albuterol 2.5 Mg/3 Ml Nebu IH Q3HRT PRN Shortness Of Breath Amiodarone HCl 200 mg 08/04/22 11:00 08/07/22 09:17 Amiodarone 200 Mg Tab FEEDTUBE 200 mg BID LIZZIE Administration Atorvastatin Calcium 40 mg 08/04/22 22:00 08/06/22 21:43 Atorvastatin 40 Mg Tab FEEDTUBE 40 mg QHS LZIZIE Administration Dextrose 50 ml 07/27/22 09:25 08/04/22 06:03 Dextrose 50% In Water (25gm) 50 Ml Syringe IV 50 ml Q30MIN PRN Administration Hypoglycemia Protocol Enoxaparin Sodium 40 mg 08/06/22 10:00 08/07/22 09:17 Enoxaparin 40 Mg/0.4 Ml Inj SUB-Q 40 mg QDAY@1000 LIZZIE Administration Famotidine 10 mg 07/28/22 10:00 08/07/22 09:17 Famotidine 10 Mg Tab FEEDTUBE 10 mg BID LIZZIE Administration Meropenem/Sodium Chloride 1 gram in 100 mls @ 100 mls/hr 08/06/22 10:00 08/07/22 09:18 Merrem/Ns 1 Gram/100 Ml IV 100 mls/hr Q8H LIZZIE Administration Protocol Vancomycin HCl 750 mg/ Sodium 265 mls @ 176.667 mls/hr 08/07/22 10:00 08/07/22 09:18 Chloride IV 176.667 mls/hr Q24H LIZZIE Administration Insulin Glargine 15 units 08/07/22 22:00 Insulin Glargine 100 Units/Ml SUB-Q QHS LIZZIE Insulin Human Regular 0 units 07/27/22 12:00 08/07/22 11:42 Insulin Regular, Human 100 Units/1 Ml SUB-Q 4 units Q6H LIZZIE Administration Protocol Multi-Ingred Cream/Lotion/Oil/Oint 1 applic 07/27/22 03:17 07/27/22 03:35 Mineral Oil/Petrolatum, White Ophth Oint 3.5 Gm OU 1 applic PRN PRN Administration Dry Eye(s) Nitroglycerin 0.4 mg 07/26/22 00:31 Nitroglycerin 0.4 Mg Tab Subl SL Q5M PRN Chest Pain Ondansetron HCl 4 mg 07/26/22 00:31 Ondansetron 4 Mg/2 Ml Inj IV Q8H PRN Nausea And Vomiting Sodium Bicarbonate 650 mg 08/04/22 14:00 08/07/22 13:44 Sodium Bicarbonate 650 Mg Tab FEEDTUBE 650 mg TID LIZZIE Administration Sodium Chloride 10 ml 07/26/22 10:00 08/07/22 09:19 Sodium Chloride 0.9% 10 Ml Flush Syringe IV 10 ml BID LIZZIE Administration Sodium Chloride 10 ml 07/26/22 00:31 Sodium Chloride 0.9% 10 Ml Flush Syringe IV PRN PRN LINE FLUSH Nutrition/Malnutrition Assess - Dietary Evaluation Nutrition/Malnutrition Findings: Nutrition Notes Start: 07/26/22 1 0:25 Freq: Status: Active Protocol: Document 08/07/22 15:00 CM (Rec: 08/07/22 15:13 CM [id number]) Co-Sign 08/07/22 15:00 WW Nutrition Notes Initial or Follow up Brief Note Current Diagnosis Sepsis,Hypertension, Respiratory Failure,Stroke, Hyperlipidemia Other Pertinent Diagnosis s/p Cardiac Arrest, AMS Current Diet TF - Glucerna 45mL/hr Labs/Tests 08/07: K 3.4 Cl 107.8 BUN 21 Glu 216 Pertinent Medications 08/07: Atorvastatin Humulin Height 5 ft 5 in Weight 49.8 kg Dulce Body Weight (kg) 61.81 BMI 18.2 Weight Status Underweight Subjective/Other Information RD follow-up per protocol. Pt currently receiving Glucerna @ 45mL/hr. RN reported loose stool 2x q day. No gastric residuals recorded. Pt continues ventilation via tracheostomy. Abdomen large, round, w/ BS+ per physical assessment. No contraindications to continue. GI Symptoms None Skin Integrity/Comment Kane 10 - breakdown / blisters Current % PO Other #2 Nutrition Diagnosis Underweight Diagnosis Progress(for reassessment Continues documentation) #1 Nutrition Diagnosis Inadequate oral intake Diagnosis Progress(for reassessment Continues documentation) Is patient on ventilator? Yes Is Patient Ambulatory and/or Out of Bed No REE-([facility]-confined to bed) 1398.456 Kcal/Kg value to use for calculation 31 Approximate Energy Requirements Using 1544 kcal/Kg Calculation Used for Recommendations Kcal/kg Additional Notes Pro needs 1.2-2.0g/k-100g /day Fluid needs per MD. Nutrition Intervention Nutrition Support: Change TF rate to 55mL/hr of Glucerna 1.2. Flush with 100mL q 4hrs. Kcal 1,584 Protein (gm) 79 Fluid (mL) 1,060 % RDI: 102%Kcal /100% AA Goal #1 TF tolerance Goal #2 TF to provide at least 75% energy and pro needs Follow-Up By: 08/14/22 Additional Comments Monitor TF administration, TF tolerance, nutrition-related labs, wt status. <DASHA DOWNING - Last Filed: 08/07/22 19:22> Assessment and Plan Assessment and plan: I saw and evaluated the patient. I agree with the findings and the plan of care as documented in the Nurse Practitioner's~note, with the following corrections and additions. Hospitalist Physical - Constitutional Vitals: Temp Pulse Resp BP Pulse Ox 99.2 F 92 H 25 H 158/96 98 08/07/22 16:34 08/07/22 19:00 08/07/22 19:00 08/07/22 19:00 08/07/22 18:00 HEART Score - HEART Score Troponin: Troponin T 0.049 ng/mL (0.00-0.029) H D 07/26/22 15:36 Results - Labs CBC & Chem 7: 08/07/22 04:16 08/07/22 04:16 Labs: Laboratory Last Values WBC 8.5 K/mm3 (4.5-11.0) 08/07/22 04:16 RBC 3.12 M/mm3 (3.65-5.03) L 08/07/22 04:16 Hgb 8.8 gm/dl (11.8-15.2) L 08/07/22 04:16 Hct 27.4 % (35.5-45.6) L 08/07/22 04:16 MCV 88 fl (84-94) 08/07/22 04:16 MCH 28 pg (28-32) 08/07/22 04:16 MCHC 32 % (32-34) 08/07/22 04:16 RDW 15.4 % (13.2-15.2) H 08/07/22 04:16 Plt Count 215 K/mm3 (140-440) 08/07/22 04:16 Lymph % (Auto) 10.6 % (13.4-35.0) L 08/07/22 04:16 Lee % (Auto) 5.4 % (0.0-7.3) 08/07/22 04:16 Eos % (Auto) 0.7 % (0.0-4.3) 08/07/22 04:16 Baso % (Auto) 0.2 % (0.0-1.8) 08/07/22 04:16 Lymph # (Auto) 0.9 K/mm3 (1.2-5.4) L 08/07/22 04:16 Lee # (Auto) 0.4 K/mm3 (0.0-0.8) 08/07/22 04:16 Eos # (Auto) 0.1 K/mm3 (0.0-0.4) 08/07/22 04:16 Baso # (Auto) 0.0 K/mm3 (0.0-0.1) 08/07/22 04:16 Add Manual Diff Complete 07/27/22 03:50 Total Counted 100 07/27/22 03:50 Seg Neutrophils % 83.1 % (40.0-70.0) H 08/07/22 04:16 Seg Neuts % (Manual) 78.0 % (40.0-70.0) H 07/27/22 03:50 Band Neutrophils % 16.0 % 07/27/22 03:50 Lymphocytes % (Manual) 3.0 % (13.4-35.0) L 07/27/22 03:50 Reactive Lymphs % (Man) 0 % 07/27/22 03:50 Monocytes % (Manual) 2.0 % (0.0-7.3) 07/27/22 03:50 Eosinophils % (Manual) 0 % (0.0-4.3) 07/27/22 03:50 Basophils % (Manual) 0 % (0.0-1.8) 07/27/22 03:50 Metamyelocytes % 1.0 % 07/27/22 03:50 Myelocytes % 0 % 07/27/22 03:50 Promyelocytes % 0 % 07/27/22 03:50 Blast Cells % 0 % 07/27/22 03:50 Nucleated RBC % Not Reportable 07/27/22 03:50 Seg Neutrophils # 6.7 K/mm3 (1.8-7.7) 08/07/22 04:16 Seg Neutrophils # Man 12.0 K/mm3 (1.8-7.7) H 07/27/22 03:50 Band Neutrophils # 2.5 K/mm3 07/27/22 03:50 Lymphocytes # (Manual) 0.5 K/mm3 (1.2-5.4) L 07/27/22 03:50 Abs React Lymphs (Man) 0.0 K/mm3 07/27/22 03:50 Monocytes # (Manual) 0.3 K/mm3 (0.0-0.8) 07/27/22 03:50 Eosinophils # (Manual) 0.0 K/mm3 (0.0-0.4) 07/27/22 03:50 Basophils # (Manual) 0.0 K/mm3 (0.0-0.1) 07/27/22 03:50 Metamyelocytes # 0.2 K/mm3 07/27/22 03:50 Myelocytes # 0.0 K/mm3 07/27/22 03:50 Promyelocytes # 0.0 K/mm3 07/27/22 03:50 Blast Cells # 0.0 K/mm3 07/27/22 03:50 WBC Morphology Not Reportable 07/27/22 03:50 Hypersegmented Neuts Not Reportable 07/27/22 03:50 Hyposegmented Neuts Not Reportable 07/27/22 03:50 Hypogranular Neuts Not Reportable 07/27/22 03:50 Smudge Cells Not Reportable 07/27/22 03:50 Toxic Granulation Not Reportable 07/27/22 03:50 Toxic Vacuolation Not Reportable 07/27/22 03:50 Dohle Bodies Not Reportable 07/27/22 03:50 Pelger-Huet Anomaly Not Reportable 07/27/22 03:50 Jay Rods Not Reportable 07/27/22 03:50 Platelet Estimate Consistent w auto 07/27/22 03:50 Clumped Platelets Not Reportable 07/27/22 03:50 Plt Clumps, EDTA Not Reportable 07/27/22 03:50 Large Platelets Not Reportable 07/27/22 03:50 Giant Platelets Not Reportable 07/27/22 03:50 Platelet Satelliting Not Reportable 07/27/22 03:50 Plt Morphology Comment Not Reportable 07/27/22 03:50 RBC Morphology Not Reportable 07/27/22 03:50 Dimorphic RBCs Not Reportable 07/27/22 03:50 Polychromasia Not Reportable 07/27/22 03:50 Hypochromasia Not Reportable 07/27/22 03:50 Poikilocytosis Not Reportable 07/27/22 03:50 Anisocytosis Not Reportable 07/27/22 03:50 Microcytosis Not Reportable 07/27/22 03:50 Macrocytosis Not Reportable 07/27/22 03:50 Spherocytes Not Reportable 07/27/22 03:50 Pappenheimer Bodies Not Reportable 07/27/22 03:50 Sickle Cells Not Reportable 07/27/22 03:50 Target Cells Not Reportable 07/27/22 03:50 Tear Drop Cells Not Reportable 07/27/22 03:50 Ovalocytes Not Reportable 07/27/22 03:50 Helmet Cells Not Reportable 07/27/22 03:50 [place] Bodies Not Reportable 07/27/22 03:50 Manlius Rings Not Reportable 07/27/22 03:50 Minturn Cells Not Reportable 07/27/22 03:50 Bite Cells Not Reportable 07/27/22 03:50 Crenated Cell Not Reportable 07/27/22 03:50 Elliptocytes Not Reportable 07/27/22 03:50 Acanthocytes (Spur) Not Reportable 07/27/22 03:50 Rouleaux Not Reportable 07/27/22 03:50 Hemoglobin C Crystals Not Reportable 07/27/22 03:50 Schistocytes Not Reportable 07/27/22 03:50 Malaria parasites Not Reportable 07/27/22 03:50 Peewee Bodies Not Reportable 07/27/22 03:50 Hem Pathologist Commnt No 07/27/22 03:50 PT 14.3 Sec. (12.2-14.9) 07/31/22 04:13 INR 0.97 (0.87-1.13) 07/31/22 04:13 Heparin Anti-Xa, Unfract Negative (Negative) 08/01/22 04:17 ABG pH 7.500 pH Units (7.350-7.450) H 08/03/22 03:35 ABG pCO2 26.7 mm Hg 08/03/22 03:35 ABG pO2 129.6 mm Hg (80.0-90.0) H 08/03/22 03:35 ABG HCO3 20.4 mmol/L (20.0-26.0) 08/03/22 03:35 ABG O2 Saturation 98.7 % (95.0-99.0) 08/03/22 03:35 ABG O2 Content 13.5 (0.0-44) 08/03/22 03:35 ABG Base Excess -2.0 mmol/L (-2.0-3.0) 08/03/22 03:35 ABG Hemoglobin 9.7 gm/dl (14.0-18.0) L 08/03/22 03:35 ABG Carboxyhemoglobin 1.5 % (0.0-5.0) 08/03/22 03:35 ABG Methemoglobin 0.4 % (0.0-1.5) 08/03/22 03:35 VBG pH 7.362 (7.320-7.420) 07/25/22 19:37 Oxyhemoglobin 96.8 % (95.0-99.0) 08/03/22 03:35 FiO2 30 % 08/03/22 03:35 Sodium 142 mmol/L (137-145) 08/07/22 04:16 Potassium 3.4 mmol/L (3.6-5.0) L 08/07/22 04:16 Chloride 107.8 mmol/L (98-107) H 08/07/22 04:16 Carbon Dioxide 23 mmol/L (22-30) 08/07/22 04:16 Anion Gap 15 mmol/L 08/07/22 04:16 BUN 21 mg/dL (9-20) H 08/07/22 04:16 Creatinine 1.0 mg/dL (0.8-1.3) 08/07/22 04:16 Estimated GFR > 60 ml/min 08/07/22 04:16 BUN/Creatinine Ratio 21 % 08/07/22 04:16 Glucose 216 mg/dL (75-100) H 08/07/22 04:16 POC Glucose 203 mg/dL (70-105) H 08/07/22 16:15 Hemoglobin A1c 12.3 % (4-6) H 07/27/22 12:13 Lactic Acid 9.70 mmol/L (0.7-2.0) H* 07/26/22 15:36 Calcium 6.1 mg/dL (8.4-10.2) L 08/07/22 04:16 Phosphorus 2.00 mg/dL (2.5-4.5) L 08/07/22 04:16 Magnesium 1.80 mg/dL (1.7-2.3) 08/07/22 04:16 Total Bilirubin 0.40 mg/dL (0.1-1.2) 08/07/22 04:16 Direct Bilirubin < 0.2 mg/dL (0-0.2) 08/07/22 04:16 Indirect Bilirubin 0.2 mg/dL 08/07/22 04:16 AST 76 units/L (5-40) H 08/07/22 04:16 ALT 49 units/L (7-56) 08/07/22 04:16 Alkaline Phosphatase 119 units/L (35-129) 08/07/22 04:16 Ammonia 64.0 umol/L (25-60) H 07/25/22 19:37 Total Creatine Kinase 158 units/L (55-170) 07/25/22 19:37 CK-MB (CK-2) < 1.0 ng/mL (0.0-4.0) 07/25/22 19:37 CK-MB (CK-2) Rel Index 0.6 (0-4) 07/25/22 19:37 Troponin T 0.049 ng/mL (0.00-0.029) H D 07/26/22 15:36 C-Reactive Protein 21.50 mg/dL (0.00-1.30) H 08/05/22 21:43 Total Protein 5.1 g/dL (6.3-8.2) L 08/07/22 04:16 Albumin 1.8 g/dL (3.9-5) L 08/07/22 04:16 Albumin/Globulin Ratio 0.5 % 08/07/22 04:16 Triglycerides 362 mg/dL (2-149) H 07/25/22 19:37 Cholesterol 126 mg/dL (50-199) 07/25/22 19:37 LDL Cholesterol Direct 44 mg/dL (50-130) L 07/25/22 19:37 HDL Cholesterol 34 mg/dL (40-59) L 07/25/22 19:37 Cholesterol/HDL Ratio 3.70 % 07/25/22 19:37 Serotonin Release Assay See scanned result 08/01/22 04:17 Procalcitonin 0.56 ng/mL (<0.15) 08/05/22 21:43 TSH 2.170 mlU/mL (0.270-4.200) 07/25/22 19:37 Free T4 1.18 ng/dL (0.76-1.46) 07/25/22 19:37 Urine Color Lin (Yellow) 08/05/22 11:00 Urine Turbidity Cloudy (Clear) 08/05/22 11:00 Specific Skippers (Man) 1.017 (1.003-1.030) 08/05/22 11:00 Ur Protein (Man) 2+ mg/dL (Negative) 08/05/22 11:00 Ur Ketones (Man) Negative (Negative) 08/05/22 11:00 Ur Nitrite (Man) Negative (Negative) 08/05/22 11:00 Ur Reducing Substances Not Reportable 07/26/22 08:31 Urine Bilirubin (Man) Negative (Negative) 08/05/22 11:00 Urine Ictotest Not Reportable 08/05/22 11:00 Leukocyte Esterase (Man) Negative (Negative) 08/05/22 11:00 Urine WBC (Auto) 6.0 /HPF (0.0-6.0) 08/05/22 11:00 Urine RBC (Auto) 6.0 /HPF (0.0-6.0) 08/05/22 11:00 U Epithel Cells (Auto) 1.0 /HPF (0-13.0) 08/05/22 11:00 Urine Bacteria (Auto) 1+ /HPF (Negative) 08/05/22 11:00 Urine RBC (Manual) 4+ (Negative) 08/05/22 11:00 Ur Renal Epithelial Cell 3 /LPF 07/26/22 08:31 Uric Acid Crystals Few 08/05/22 11:00 Amorphous Crystals Few 08/05/22 11:00 Urine Mucus Few /HPF 08/05/22 11:00 Urine Creatinine 118.4 mg/dL (0.1-20.0) H 07/26/22 18:10 Protein/Creatinin Ratio 1.23 07/26/22 18:10 Urine Sodium 108 mmol/L 07/26/22 18:10 Urine Total Protein 146 mg/dL (5-11.8) H 07/26/22 18:10 Nasal Screen MRSA (PCR) Negative (Negative) 08/05/22 14:00 Heparin-induced Plt Ab Negative (Negative) 08/01/22 04:17 UF Heparin High Dose 0 % Release 08/01/22 04:17 SU UFH Low Dose 0.1 0 % Release 08/01/22 04:17 SU UFH Low Dose 0.5 0 % Release 08/01/22 04:17 Microbiology: Microbiology 08/05/22 21:56 Peripheral/Venous Blood Culture - Preliminary NO GROWTH AFTER 24 HOURS 08/05/22 21:43 Peripheral/Venous Blood Culture - Preliminary NO GROWTH AFTER 24 HOURS 08/05/22 14:00 Wrist - Right Wound Culture - Preliminary 08/05/22 21:30 Tracheal Aspirate Sputum Culture - Preliminary Yañez/IV: Voiding Method Indwelling Catheter Active Medications - Current Medications Current Medications: Generic Name Dose Route Start Last Admin Trade Name Freq PRN Reason Stop Dose Admin Acetaminophen 650 mg 07/26/22 00:31 08/07/22 09:17 Acetaminophen 325 Mg Tab PO 650 mg Q4H PRN Administration Pain MILD(1-3)/Fever >100.5/LANTIGUA Acetaminophen 650 mg 07/26/22 02:04 Acetaminophen 650 Mg Rect Supp VT Q4H PRN Pain, Mild (1-3) Albuterol 2.5 mg 07/26/22 00:31 Albuterol 2.5 Mg/3 Ml Nebu IH Q3HRT PRN Shortness Of Breath Amiodarone HCl 200 mg 08/04/22 11:00 08/07/22 09:17 Amiodarone 200 Mg Tab FEEDTUBE 200 mg BID LIZZIE Administration Atorvastatin Calcium 40 mg 08/04/22 22:00 08/06/22 21:43 Atorvastatin 40 Mg Tab FEEDTUBE 40 mg QHS LIZZIE Administration Dextrose 50 ml 07/27/22 09:25 08/04/22 06:03 Dextrose 50% In Water (25gm) 50 Ml Syringe IV 50 ml Q30MIN PRN Administration Hypoglycemia Protocol Enoxaparin Sodium 40 mg 08/06/22 10:00 08/07/22 09:17 Enoxaparin 40 Mg/0.4 Ml Inj SUB-Q 40 mg QDAY@1000 LIZZIE Administration Famotidine 10 mg 07/28/22 10:00 08/07/22 09:17 Famotidine 10 Mg Tab FEEDTUBE 10 mg BID LIZZIE Administration Meropenem/Sodium Chloride 1 gram in 100 mls @ 100 mls/hr 08/06/22 10:00 08/07/22 17:16 Merrem/Ns 1 Gram/100 Ml IV 100 mls/hr Q8H LIZZIE Administration Protocol Vancomycin HCl 750 mg/ Sodium 265 mls @ 176.667 mls/hr 08/07/22 10:00 08/07/22 09:18 Chloride IV 176.667 mls/hr Q24H LIZZIE Administration Insulin Glargine 15 units 08/07/22 22:00 Insulin Glargine 100 Units/Ml SUB-Q QHS [facility] Insulin Human Regular 0 units 07/27/22 12:00 08/07/22 17:16 Insulin Regular, Human 100 Units/1 Ml SUB-Q 4 units Q6H LIZZIE Administration Protocol Multi-Ingred Cream/Lotion/Oil/Oint 1 applic 07/27/22 03:17 07/27/22 03:35 Mineral Oil/Petrolatum, White Ophth Oint 3.5 Gm OU 1 applic PRN PRN Administration Dry Eye(s) Nitroglycerin 0.4 mg 07/26/22 00:31 Nitroglycerin 0.4 Mg Tab Subl SL Q5M PRN Chest Pain Ondansetron HCl 4 mg 07/26/22 00:31 Ondansetron 4 Mg/2 Ml Inj IV Q8H PRN Nausea And Vomiting Sodium Bicarbonate 650 mg 08/04/22 14:00 08/07/22 13:44 Sodium Bicarbonate 650 Mg Tab FEEDTUBE 650 mg TID LIZZIE Administration Sodium Chloride 10 ml 07/26/22 10:00 08/07/22 09:19 Sodium Chloride 0.9% 10 Ml Flush Syringe IV 10 ml BID LIZZIE Administration Sodium Chloride 10 ml 07/26/22 00:31 Sodium Chloride 0.9% 10 Ml Flush Syringe IV PRN PRN LINE FLUSH Sodium Phosphate 250 mg 08/07/22 18:00 08/07/22 18:29 K-Phos Neutral 250 Mg Tab PO 08/09/22 17:59 250 mg QID LIZZIE Administration Nutrition/Malnutrition Assess - Dietary Evaluation Nutrition/Malnutrition Findings: Nutrition Notes Start: 07/26/22 10:25 Freq: Status: Active Protocol: Document 08/07/22 15:00 CM (Rec: 08/07/22 15:13 CM [id number]) Co-Sign 08/07/22 15:00 WW Nutrition Notes Initial or Follow up Brief Note Current Diagnosis Sepsis,Hypertension, Respiratory Failure,Stroke, Hyperlipidemia Other Pertinent Diagnosis s/p Cardiac Arrest, AMS Current Diet TF - Glucerna 45mL/hr Labs/Tests 08/07: K 3.4 Cl 107.8 BUN 21 Glu 216 Pertinent Medications 08/07: Atorvastatin Humulin Height 5 ft 5 in Weight 49.8 kg Dulce Body Weight (kg) 61.81 BMI 18.2 Weight Status Underweight Subjective/Other Information RD follow-up per protocol. Pt currently receiving Glucerna @ 45mL/hr. RN reported loose stool 2x q day. No gastric residuals recorded. Pt continues ventilation via tracheostomy. Abdomen large, round, w/ BS+ per physical assessment. No contraindications to continue. GI Symptoms None Skin Integrity/Comment Kane 10 - breakdown / blisters Current % PO Other #2 Nutrition Diagnosis Underweight Diagnosis Progress(for reassessment Continues documentation) #1 Nutrition Diagnosis Inadequate oral intake Diagnosis Progress(for reassessment Continues documentation) Is patient on ventilator? Yes Is Patient Ambulatory and/or Out of Bed No REE-([facility]-confined to bed) 1398.456 Kcal/Kg value to use for calculation 31 Approximate Energy Requirements Using 1544 kcal/Kg Calculation Used for Recommendations Kcal/kg Additional Notes Pro needs 1.2-2.0g/k-100g /day Fluid needs per MD. Nutrition Intervention Nutrition Support: Change TF rate to 55mL/hr of Glucerna 1.2. Flush with 100mL q 4hrs. Kcal 1,584 Protein (gm) 79 Fluid (mL) 1,060 % RDI: 102%Kcal /100% AA Goal #1 TF tolerance Goal #2 TF to provide at least 75% energy and pro needs Follow-Up By: 08/14/22 Additional Comments Monitor TF administration, TF tolerance, nutrition-related labs, wt status.
[2022-08-07] MEDS: K-PHOS NEUTRAL 250 MG TAB PO SCH ×2 (18:29→21:24)
[2022-08-07] MEDS ORDERED: INSULIN GLARGINE 100 UNITS/ML SUB-Q SCH (22:00)
[2022-08-08] MEDS: INSULIN REGULAR, HUMAN 100 UNITS/1 ML SUB-Q SCH ×4 (00:20→17:52)
[2022-08-08] MEDS: MEROPENEM/NS 1 GRAM/100 ML 1 GRAM/100 ML BAG IV SCH ×3 (02:15→17:51)
[2022-08-08 05:08] LABS: Hematocrit 27.4 % (35.5-45.6); Hemoglobin 8.9 gm/dl (11.8-15.2); Mean Corpuscular HGB Conc 33 % (32-34); Mean Corpuscular Volume 87 fl (84-94); Red Blood Count 3.16 M/mm3 (3.65-5.03); Red Cell Distribution Width 15.5 % (13.2-15.2)
[2022-08-08 05:15] LABS: Platelet Count 187 K/mm3 (140-440)
[2022-08-08 05:26] LABS: Alanine Aminotransferase 42 units/L (7-56); Albumin 1.7 g/dL (3.9-5); BUN/Creatinine Ratio 19; Blood Urea Nitrogen 19 mg/dL (9-20); Calcium 6.3 mg/dL (8.4-10.2); Hemolysis Index 66
[2022-08-08 05:40] LABS: Bilirubin,Direct < 0.2 mg/dL (0-0.2)
[2022-08-08] MEDS: ACETAMINOPHEN 325 MG TAB PO PRN (06:11)
[2022-08-08] MEDS: AMIODARONE 200 MG TAB FEEDTUBE SCH ×2 (10:49→22:47)
[2022-08-08] MEDS: K-PHOS NEUTRAL 250 MG TAB PO SCH ×4 (10:49→22:50)
[2022-08-08] MEDS: FAMOTIDINE 10 MG TAB FEEDTUBE SCH ×2 (10:49→22:47)
[2022-08-08] MEDS: SODIUM BICARBONATE 650 MG TAB FEEDTUBE SCH ×3 (10:56→22:50)
[2022-08-08] MEDS: ENOXAPARIN 40 MG/0.4 ML INJ SUB-Q SCH (10:56)
--- NOTE | 2022-08-08 11:00 | Consultation ---
History of Present Illness - Reason for Consult Consult date: 08/08/22 - History of Present Illness 77-year-old male with history of diabetes mellitus, atrial fibrillation, hypertension, CVA, initially admitted on 07/25/2022 due to altered mental status and hypoglycemia. In the emergency room, patient became altered with hypoxia and was intubated for airway protection. After intubation patient went into PEA arrest was achieved after 13 minutes. Initial temperature 98.2 101, HR 130, ALT 61, O2 sat 96 went down to 79%, BP 91/65. Initial WBC 18.8. Hemoglobin 18.8. Platelets 216. Urinalysis unremarkable x2. Ammonia 64. Patient was initially placed on Levophed and vasopressin as well as broad-spectrum antibiotics and stress dose of steroids. Patient remained on the ventilator underwent trach and PEG placement on 08/03/2022. By 08/05/2022 noted new fever 101.6 also take endotracheal secretions. Repeat chest x-ray shows bilateral lower lobe consolidations. 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 Sputum cultures grew Klebsiella pneumonia, completed course of cefepime. Thrombocytopenia, HIT panel negative, resolved. Blood cultures 07/25/2022 no growth. Sputum culture 07/25/2022 Klebsiella. Past History Past Medical History: acute [place], diabetes, hypertension Past Surgical History: cholecystectomy Social history: no significant social history Family history: diabetes, hypertension Medications and Allergies Allergies Allergy/AdvReac Type Severity Reaction Status Date / Time aspirin Allergy Swelling Verified 02/15/20 13:24 iron Allergy Itching Verified 02/15/20 13:24 Home Medications Medication Instructions Recorded Confirmed Last Taken Type metFORMIN [Glucophage] 1,000 mg PO BID 02/11/14 02/15/20 02/14/20 History Acetaminophen [Acetaminophen ER 650 mg PO Q8HR PRN #20 tablet.er 10/21/19 02/15/20 Unknown Rx TAB] ALBUTEROL NEB's [Proventil 0.083% 2.5 mg IH Q3HRT PRN #30 nebu 03/09/20 Unknown Rx NEBS] Aspirin EC [Halfprin EC] 81 mg PO QDAY #30 tablet. 03/09/20 Unknown Rx AtorvaSTATin [Lipitor] 40 mg FEEDTUBE QHS #30 tablet 03/09/20 Unknown Rx Famotidine [Pepcid] 20 mg FEEDTUBE DAILY #30 tablet 03/09/20 Unknown Rx Insulin Glargine [Lantus VIAL] 50 units SUB-Q QAMDIAB #1 vial 03/09/20 Unknown Rx Insulin Glargine [Lantus VIAL] 50 units SUB-Q QHS #1 vial 03/09/20 Unknown Rx Insulin Regular, Human [HumuLIN R] 0 units SUB-Q Q6HR #1 vial 03/09/20 Unknown Rx Metoclopramide [Reglan ORAL LIQ] 5 mg FEEDTUBE Q6H PRN 30 Days 03/09/20 Unknown Rx Metoprolol [Lopressor TAB] 100 mg FEEDTUBE BID #60 tablet 03/09/20 Unknown Rx amLODIPine 10 mg FEEDTUBE QDAY #30 tablet 03/09/20 Unknown Rx traMADoL [Ultram 50 MG tab] 50 mg FEEDTUBE Q6HR PRN #10 tablet 03/09/20 Unknown Rx Active Meds: Active Medications Acetaminophen (Acetaminophen 325 Mg Tab) 650 mg PO Q4H PRN PRN Reason: Pain MILD(1-3)/Fever >100.5/LANTIGUA Last Admin: 08/08/22 06:11 Dose: 650 mg Acetaminophen (Acetaminophen 650 Mg Rect Supp) 650 mg ME Q4H PRN PRN Reason: Pain, Mild (1-3) Albuterol (Albuterol 2.5 Mg/3 Ml Nebu) 2.5 mg IH Q3HRT PRN PRN Reason: Shortness Of Breath Amiodarone HCl (Amiodarone 200 Mg Tab) 200 mg FEEDTUBE BID [facility] Last Admin: 08/08/22 10:49 Dose: 200 mg Atorvastatin Calcium (Atorvastatin 40 Mg Tab) 40 mg FEEDTUBE QHS [facility] Last Admin: 08/07/22 21:24 Dose: 40 mg Dextrose (Dextrose 50% In Water (25gm) 50 Ml Syringe) 50 ml IV Q30MIN PRN; Protocol PRN Reason: Hypoglycemia Last Admin: 08/04/22 06:03 Dose: 50 ml Enoxaparin Sodium (Enoxaparin 40 Mg/0.4 Ml Inj) 40 mg SUB-Q QDAY@1000 LIZZIE Last Admin: 08/08/22 10:56 Dose: 40 mg Famotidine (Famotidine 10 Mg Tab) 10 mg FEEDTUBE BID [facility] Last Admin: 08/08/22 10:49 Dose: 10 mg Meropenem/Sodium Chloride (Merrem/Ns 1 Gram/100 Ml) 1 gram in 100 mls @ 100 mls/hr IV Q8H [facility]; Protocol Last Admin: 08/08/22 10:49 Dose: 100 mls/hr Vancomycin HCl 750 mg/ Sodium (Chloride) 265 mls @ 176.667 mls/hr IV Q24H [facility] Last Admin: 08/07/22 09:18 Dose: 176.667 mls/hr Insulin Glargine (Insulin Glargine 100 Units/Ml) 15 units SUB-Q QHS [facility] Last Admin: 08/07/22 23:17 Dose: 15 units Insulin Human Regular (Insulin Regular, Human 100 Units/1 Ml) 0 units SUB-Q Q6H [facility]; Protocol Last Admin: 08/08/22 06:29 Dose: 4 units Multi-Ingred Cream/Lotion/Oil/Oint (Mineral Oil/Petrolatum, White Ophth Oint 3.5 Gm) 1 applic OU PRN PRN PRN Reason: Dry Eye(s) Last Admin: 07/27/22 03:35 Dose: 1 applic Nitroglycerin (Nitroglycerin 0.4 Mg Tab Subl) 0.4 mg SL Q5M PRN PRN Reason: Chest Pain Ondansetron HCl (Ondansetron 4 Mg/2 Ml Inj) 4 mg IV Q8H PRN PRN Reason: Nausea And Vomiting Sodium Bicarbonate (Sodium Bicarbonate 650 Mg Tab) 650 mg FEEDTUBE TID [facility] Last Admin: 08/08/22 10:56 Dose: 650 mg Sodium Chloride (Sodium Chloride 0.9% 10 Ml Flush Syringe) 10 ml IV BID [facility] Last Admin: 08/08/22 10:49 Dose: 10 ml Sodium Chloride (Sodium Chloride 0.9% 10 Ml Flush Syringe) 10 ml IV PRN PRN PRN Reason: LINE FLUSH Sodium Phosphate (K-Phos Neutral 250 Mg Tab) 250 mg PO QID [facility] Stop: 08/09/22 17:59 Last Admin: 08/08/22 10:49 Dose: 250 mg Physical Examination - Physical Exam Narrative exam: Physical Exam: Constitutional: Intubated, sedated Head, Ears, Nose: Normocephalic, atraumatic. External ears, nose normal Eyes: Conjunctivae/corneas clear. No icterus. No ptosis. Neck: Supple, no meningeal signs Oral: ETT Cardiovascular: S1, S2 normal. Respiratory: Good air entry, clear to auscultation bilaterally GI: Soft, non-tender; bowel sounds normal. No peritoneal signs. Musculoskeletal: No pedal edema, no cyanosis. Skin: No rash or abscess Hem/Lymphatic: No palpable cervical or supraclavicular nodes. No lymphangitis Psych: Sedated Neurological: Sedated - Constitutional Vitals: Vital Signs Temp Pulse Resp BP Pulse Ox 98.1 F 84 26 H 150/90 96 08/08/22 07:16 08/08/22 09:00 08/08/22 09:00 08/08/22 09:00 08/08/22 09:00 Temperature -Last 24 Hours Temperature 98.1 F Temperature 100.8 F Temperature 99.6 F Temperature 99.6 F Temperature 99.2 F Temperature 99.4 F Temperature 99.4 F Results - Labs CBC & Chem 7: 08/08/22 04:46 08/08/22 04:46 Labs: Abnormal lab results 08/07/22 08/07/22 08/07/22 Range/Units 11:28 16:15 22:16 RBC (3.65-5.03) M/mm3 Hgb (11.8-15.2) gm/dl Hct (35.5-45.6) % RDW (13.2-15.2) % Glucose (75-100) mg/dL POC Glucose 204 H 203 H 175 H (70-105) mg/dL Calcium (8.4-10.2) mg/dL AST (5-40) units/L Total Protein (6.3-8.2) g/dL Albumin (3.9-5) g/dL 08/08/22 08/08/22 08/08/22 Range/Units 00:01 04:46 04:46 RBC 3.16 L (3.65-5.03) M/mm3 Hgb 8.9 L (11.8-15.2) gm/dl Hct 27.4 L (35.5-45.6) % RDW 15.5 H (13.2-15.2) % Glucose 200 H (75-100) mg/dL POC Glucose 183 H (70-105) mg/dL Calcium 6.3 L (8.4-10.2) mg/dL AST 81 H (5-40) units/L Total Protein 5.1 L (6.3-8.2) g/dL Albumin 1.7 L (3.9-5) g/dL 08/08/22 Range/Units 06:14 RBC (3.65-5.03) M/mm3 Hgb (11.8-15.2) gm/dl Hct (35.5-45.6) % RDW (13.2-15.2) % Glucose (75-100) mg/dL POC Glucose 206 H (70-105) mg/dL Calcium (8.4-10.2) mg/dL AST (5-40) units/L Total Protein (6.3-8.2) g/dL Albumin (3.9-5) g/dL Assessment and Plan Assessment, plan. SIRS/sepsis: Initially secondary to Klebsiella pneumonia. Now with new fever since 08/04/2022 associated with new blistering rash and increasing tracheal secretions, likely HAP +/- allergic reaction +/- central fever. Bilateral pneumonia: Initially grew Klebsiella treated with cefepime for 7 days on June 02, 2022. Chest x-ray with worsening pneumonia. Blistering rash: Extensive blistery rash in lower extremities and arms. ? Star Sumeet's vs skin soft tissue infection. CRP 21 Acute respiratory failure: Status post trach and PEG. On the ventilator. Encephalopathy/CVA: ? Hepatic encephalopathy FREDI resolved Recommendations: Eosinophilia improved Skin biopsy may be necessary Follow-up repeat blood cultures Continue meropenem 1 g IV every 8 hours. Plan 8 days. Stop vancomycin given negative MRSA PCR Eder Ngo MD [facility] O: [phone] F: [phone]
--- NOTE | 2022-08-08 11:22 | Progress Note ---
Assessment and Plan 77 y/o male with cardiac arrest, intubated, not sedated with multisystem organ failure 08/08/22: Stopping Vanc. Merrem for 8 days. Hold on imaging of head right now. LFT's are ok. Guarded prognosis. Await placement. 08/07/22: Abx therapy per ID. Tracheal aspirate was respiratory kristin. Bld Cx pending. If continues to spike fevers, need to consider repeat imaging of head (CT vs MRI). Could check for alcalculous cholecysitis. Suggest sending LFT's tomorrow. STill awaiting placement. Overall prognosis is guarded to poor. 08/04/22: CXR in am. Will order sputum as per report, secretions have increased. Abx therapy has stopped. Trach site stable. await placement. If spikes again, needs blood, urine and UA. 08/03/22: Await placement. Continue daily PSV. PT consult. 08/01/22: Follow up surgery recs. Continue supportive care. 07/31/22: Supportive care. Surgery consult for trach and peg. Renal function continues to improve. 07/30/22: Continue supportive measures. Family wants aggressive measures despite MRI findings so needs consult to surgery for trach and peg. Will drop steroids down to 25q8 or 50q12 Sunday. Continue volume as renal function is improving. needs more free water if possible. 07/29/22: Drop steroids to 50q8 starting today. CBC not checked, need to evaluate Platelets. Need to correct electrolytes as well. Family is likely going to want trach and peg based on earlier conversations but awaiting more family. Given recent MRI results, prognosis is very poor. 07/28/22: Hold on Volume today. Drop steroids down to 50q8 starting tomorrow. Follow up MRI. EEG results still pending. Platelets still dropping but no evidence of bleeding. Continue abx therapy. Continue feeds. Prognosis is still guarded. 07/27/22: more volume again today. Echo showed normal EF. Wean pressors for MAPs >65, follow up EEg results. Hopeful to get head CT today. Platelets dropped today, not on heparin. Could be sepsis related. If head CT negative, may need to evaluate abdomen around peg. Will start trickle feeds today and transition of insulin drip. Prognosis is still guarded. 1. IVF resusciation with LR 2. Insulin drip and continue NPO state 3. Attempt to wean pressors for MAPs greater than 65 4. Monitor urine output 5. Broaden abx therapy given current clinical state 6. Follow up echo report 7. Agree with stress dose steroids 8. No sedation 9. EEG pending Overall prognosis is guarded to poor, especially given current clinical exam CCT 31 minutes. Subjective Date of service: 08/08/22 Principal diagnosis: Hypernatremia, ARF Interval history: No acute events. Still with fevers. Appreciate ID help with drugs. Objective Vital Signs - 12hr 08/07/22 08/07/22 08/08/22 23:44 23:46 00:00 Temperature 99.6 F Pulse Rate 96 H 98 H Pulse Rate [ 96 H From Monitor] Respiratory 21 29 H Rate Blood Pressure 172/90 O2 Sat by Pulse 97 98 Oximetry O2 Sat by Pulse Oximetry [ Assessment] 08/08/22 08/08/22 08/08/22 00:40 01:00 02:00 Temperature Pulse Rate 100 H 102 H 98 H Pulse Rate [ From Monitor] Respiratory 7 L 19 30 H Rate Blood Pressure 176/84 170/87 166/75 O2 Sat by Pulse 98 97 94 Oximetry O2 Sat by Pulse 97 Oximetry [ Assessment] 08/08/22 08/08/22 08/08/22 03:00 03:59 04:00 Temperature 100.8 F H Pulse Rate 89 95 H 91 H Pulse Rate [ 95 H From Monitor] Respiratory 25 H 17 Rate Blood Pressure 157/73 161/82 O2 Sat by Pulse 95 97 Oximetry O2 Sat by Pulse Oximetry [ Assessment] 08/08/22 08/08/22 08/08/22 04:20 05:00 06:00 Temperature Pulse Rate 98 H 97 H 94 H Pulse Rate [ From Monitor] Respiratory 11 L 29 H 28 H Rate Blood Pressure 157/77 159/81 155/81 O2 Sat by Pulse 98 96 96 Oximetry O2 Sat by Pulse Oximetry [ Assessment] 08/08/22 08/08/22 08/08/22 07:00 07:16 08:00 Temperature 98.1 F Pulse Rate 84 81 Pulse Rate [ From Monitor] Respiratory 18 19 Rate Blood Pressure 137/70 134/70 O2 Sat by Pulse 97 97 Oximetry O2 Sat by Pulse Oximetry [ Assessment] 08/08/22 08/08/22 08/08/22 08:02 08:04 08:35 Temperature Pulse Rate 82 90 Pulse Rate [ 82 From Monitor] Respiratory 17 Rate Blood Pressure 152/84 O2 Sat by Pulse 96 98 Oximetry O2 Sat by Pulse Oximetry [ Assessment] 08/08/22 08/08/22 08:50 09:00 Temperature Pulse Rate 86 84 Pulse Rate [ From Monitor] Respiratory 26 H 26 H Rate Blood Pressure 152/84 150/90 O2 Sat by Pulse 97 96 Oximetry O2 Sat by Pulse Oximetry [ Assessment] CBC and BMP: 08/08/22 04:46 08/08/22 04:46 ABG, PT/INR, D-dimer: ABG ABG pH 7.500 pH Units (7.350-7.450) H 08/03/22 03:35 ABG pCO2 26.7 mm Hg 08/03/22 03:35 ABG pO2 129.6 mm Hg (80.0-90.0) H 08/03/22 03:35 ABG O2 Saturation 98.7 % (95.0-99.0) 08/03/22 03:35 PT/INR, D-dimer PT 14.3 Sec. (12.2-14.9) 07/31/22 04:13 INR 0.97 (0.87-1.13) 07/31/22 04:13 Abnormal lab findings: Abnormal Labs 07/25/22 07/25/22 07/25/22 19:37 19:37 19:37 WBC 18.8 H RBC 6.31 H Hgb 18.8 H Hct 57.3 H MCV MCHC RDW Plt Count Lymph % (Auto) Lymph # (Auto) [place] # (Auto) 1.4 H Seg Neutrophils % 70.7 H Seg Neuts % (Manual) Lymphocytes % (Manual) Seg Neutrophils # 13.3 H Seg Neutrophils # Man Lymphocytes # (Manual) ABG pH ABG pO2 ABG HCO3 ABG O2 Saturation ABG Base Excess ABG Hemoglobin Oxyhemoglobin Sodium 149 H Potassium Chloride 110.3 H Carbon Dioxide 18 L BUN 73 H Creatinine 3.3 H Glucose 761 H* POC Glucose Hemoglobin A1c Lactic Acid Calcium 10.6 H Phosphorus Magnesium 3.10 H AST 63 H ALT 64 H Ammonia Troponin T 0.072 H C-Reactive Protein Total Protein 9.0 H Albumin Triglycerides 362 H LDL Cholesterol Direct 44 L HDL Cholesterol 34 L Urine Creatinine Urine Total Protein 07/25/22 07/25/22 07/25/22 19:37 21:08 22:10 WBC RBC Hgb Hct MCV MCHC RDW Plt Count Lymph % (Auto) Lymph # (Auto) [place] # (Auto) Seg Neutrophils % Seg Neuts % (Manual) Lymphocytes % (Manual) Seg Neutrophils # Seg Neutrophils # Man Lymphocytes # (Manual) ABG pH ABG pO2 ABG HCO3 ABG O2 Saturation ABG Base Excess ABG Hemoglobin Oxyhemoglobin Sodium 155 H Potassium Chloride 113.1 H Carbon Dioxide 14 L BUN 74 H Creatinine 3.5 H Glucose 734 H* POC Glucose Hemoglobin A1c Lactic Acid 12.70 H* Calcium Phosphorus Magnesium AST ALT Ammonia 64.0 H Troponin T C-Reactive Protein Total Protein Albumin Triglycerides LDL Cholesterol Direct HDL Cholesterol Urine Creatinine Urine Total Protein 07/25/22 07/25/22 07/26/22 22:20 23:29 00:13 WBC RBC Hgb Hct MCV MCHC RDW Plt Count Lymph % (Auto) Lymph # (Auto) [place] # (Auto) Seg Neutrophils % Seg Neuts % (Manual) Lymphocytes % (Manual) Seg Neutrophils # Seg Neutrophils # Man Lymphocytes # (Manual) ABG pH 7.342 L ABG pO2 318.2 H ABG HCO3 14.4 L ABG O2 Saturation 99.5 H ABG Base Excess -9.4 L ABG Hemoglobin Oxyhemoglobin Sodium 157 H Potassium 3.1 L D Chloride 114.0 H Carbon Dioxide 21 L D BUN 72 H Creatinine 3.7 H Glucose 615 H* POC Glucose > 600 H Hemoglobin A1c Lactic Acid Calcium Phosphorus Magnesium AST ALT Ammonia Troponin T C-Reactive Protein Total Protein Albumin Triglycerides LDL Cholesterol Direct HDL Cholesterol Urine Creatinine Urine Total Protein 07/26/22 07/26/22 07/26/22 00:13 00:38 00:39 WBC 21.4 H RBC 5.88 H Hgb 17.2 H Hct 55.0 H MCV MCHC 31 L RDW 16.0 H Plt Count Lymph % (Auto) Lymph # (Auto) [place] # (Auto) Seg Neutrophils % Seg Neuts % (Manual) 77.0 H Lymphocytes % (Manual) 13.0 L Seg Neutrophils # Seg Neutrophils # Man 16.5 H Lymphocytes # (Manual) ABG pH ABG pO2 ABG HCO3 ABG O2 Saturation ABG Base Excess ABG Hemoglobin Oxyhemoglobin Sodium Potassium Chloride Carbon Dioxide BUN Creatinine Glucose POC Glucose 517 H Hemoglobin A1c Lactic Acid 9.10 H* Calcium Phosphorus Magnesium AST ALT Ammonia Troponin T C-Reactive Protein Total Protein Albumin Triglycerides LDL Cholesterol Direct HDL Cholesterol Urine Creatinine Urine Total Protein 07/26/22 07/26/22 07/26/22 00:39 01:32 02:28 WBC RBC Hgb Hct MCV MCHC RDW Plt Count Lymph % (Auto) Lymph # (Auto) [place] # (Auto) Seg Neutrophils % Seg Neuts % (Manual) Lymphocytes % (Manual) Seg Neutrophils # Seg Neutrophils # Man Lymphocytes # (Manual) ABG pH ABG pO2 ABG HCO3 ABG O2 Saturation ABG Base Excess ABG Hemoglobin Oxyhemoglobin Sodium Potassium Chloride Carbon Dioxide BUN Creatinine Glucose POC Glucose 460 H 237 H Hemoglobin A1c Lactic Acid Calcium Phosphorus 1.20 L D Magnesium 4.10 H AST ALT Ammonia Troponin T C-Reactive Protein Total Protein Albumin Triglycerides LDL Cholesterol Direct HDL Cholesterol Urine Creatinine Urine Total Protein 07/26/22 07/26/22 07/26/22 03:03 03:07 04:11 WBC RBC Hgb Hct MCV MCHC RDW Plt Count Lymph % (Auto) Lymph # (Auto) [place] # (Auto) Seg Neutrophils % Seg Neuts % (Manual) Lymphocytes % (Manual) Seg Neutrophils # Seg Neutrophils # Man Lymphocytes # (Manual) ABG pH ABG pO2 ABG HCO3 ABG O2 Saturation ABG Base Excess ABG Hemoglobin Oxyhemoglobin Sodium Potassium Chloride Carbon Dioxide BUN Creatinine Glucose POC Glucose 433 H 370 H 338 H Hemoglobin A1c Lactic Acid Calcium Phosphorus Magnesium AST ALT Ammonia Troponin T C-Reactive Protein Total Protein Albumin Triglycerides LDL Cholesterol Direct HDL Cholesterol Urine Creatinine Urine Total Protein 07/26/22 07/26/22 07/26/22 04:35 04:35 04:40 WBC RBC Hgb Hct MCV MCHC RDW Plt Count Lymph % (Auto) Lymph # (Auto) [place] # (Auto) Seg Neutrophils % Seg Neuts % (Manual) Lymphocytes % (Manual) Seg Neutrophils # Seg Neutrophils # Man Lymphocytes # (Manual) ABG pH 7.301 L ABG pO2 178.2 H ABG HCO3 11.0 L ABG O2 Saturation 99.1 H ABG Base Excess -13.3 L ABG Hemoglobin Oxyhemoglobin Sodium 162 H* Potassium 3.0 L Chloride 124.8 H Carbon Dioxide 18 L BUN 69 H Creatinine 3.9 H Glucose 385 H POC Glucose Hemoglobin A1c Lactic Acid 8.20 H* Calcium 7.8 L Phosphorus Magnesium AST ALT Ammonia Troponin T C-Reactive Protein Total Protein Albumin Triglycerides LDL Cholesterol Direct HDL Cholesterol Urine Creatinine Urine Total Protein 07/26/22 07/26/22 07/26/22 05:01 06:14 06:52 WBC RBC Hgb Hct MCV MCHC RDW Plt Count Lymph % (Auto) Lymph # (Auto) [place] # (Auto) Seg Neutrophils % Seg Neuts % (Manual) Lymphocytes % (Manual) Seg Neutrophils # Seg Neutrophils # Man Lymphocytes # (Manual) ABG pH ABG pO2 ABG HCO3 ABG O2 Saturation ABG Base Excess ABG Hemoglobin Oxyhemoglobin Sodium Potassium Chloride Carbon Dioxide BUN Creatinine Glucose POC Glucose 347 H 300 H 278 H Hemoglobin A1c Lactic Acid Calcium Phosphorus Magnesium AST ALT Ammonia Troponin T C-Reactive Protein Total Protein Albumin Triglycerides LDL Cholesterol Direct HDL Cholesterol Urine Creatinine Urine Total Protein 07/26/22 07/26/22 07/26/22 07:59 08:58 10:04 WBC RBC Hgb Hct MCV MCHC RDW Plt Count Lymph % (Auto) Lymph # (Auto) [place] # (Auto) Seg Neutrophils % Seg Neuts % (Manual) Lymphocytes % (Manual) Seg Neutrophils # Seg Neutrophils # Man Lymphocytes # (Manual) ABG pH ABG pO2 ABG HCO3 ABG O2 Saturation ABG Base Excess ABG Hemoglobin Oxyhemoglobin Sodium Potassium Chloride Carbon Dioxide BUN Creatinine Glucose POC Glucose 269 H 277 H 244 H Hemoglobin A1c Lactic Acid Calcium Phosphorus Magnesium AST ALT Ammonia Troponin T C-Reactive Protein Total Protein Albumin Triglycerides LDL Cholesterol Direct HDL Cholesterol Urine Creatinine Urine Total Protein 07/26/22 07/26/22 07/26/22 11:03 11:53 13:08 WBC RBC Hgb Hct MCV MCHC RDW Plt Count Lymph % (Auto) Lymph # (Auto) [place] # (Auto) Seg Neutrophils % Seg Neuts % (Manual) Lymphocytes % (Manual) Seg Neutrophils # Seg Neutrophils # Man Lymphocytes # (Manual) ABG pH ABG pO2 ABG HCO3 ABG O2 Saturation ABG Base Excess ABG Hemoglobin Oxyhemoglobin Sodium Potassium Chloride Carbon Dioxide BUN Creatinine Glucose POC Glucose 253 H 213 H 194 H Hemoglobin A1c Lactic Acid Calcium Phosphorus Magnesium AST ALT Ammonia Troponin T C-Reactive Protein Total Protein Albumin Triglycerides LDL Cholesterol Direct HDL Cholesterol Urine Creatinine Urine Total Protein 07/26/22 07/26/22 07/26/22 14:24 14:56 14:57 WBC RBC Hgb Hct MCV MCHC RDW Plt Count Lymph % (Auto) Lymph # (Auto) [place] # (Auto) Seg Neutrophils % Seg Neuts % (Manual) Lymphocytes % (Manual) Seg Neutrophils # Seg Neutrophils # Man Lymphocytes # (Manual) ABG pH ABG pO2 ABG HCO3 ABG O2 Saturation ABG Base Excess ABG Hemoglobin Oxyhemoglobin Sodium Potassium Chloride Carbon Dioxide BUN Creatinine Glucose POC Glucose 185 H 236 H 207 H Hemoglobin A1c Lactic Acid Calcium Phosphorus Magnesium AST ALT Ammonia Troponin T C-Reactive Protein Total Protein Albumin Triglycerides LDL Cholesterol Direct HDL Cholesterol Urine Creatinine Urine Total Protein 07/26/22 07/26/22 07/26/22 15:36 15:36 15:36 WBC RBC Hgb Hct MCV MCHC RDW Plt Count Lymph % (Auto) Lymph # (Auto) [place] # (Auto) Seg Neutrophils % Seg Neuts % (Manual) Lymphocytes % (Manual) Seg Neutrophils # Seg Neutrophils # Man Lymphocytes # (Manual) ABG pH ABG pO2 ABG HCO3 ABG O2 Saturation ABG Base Excess ABG Hemoglobin Oxyhemoglobin Sodium 160 H Potassium Chloride 126.2 H Carbon Dioxide 18 L BUN 59 H Creatinine 3.2 H Glucose 227 H POC Glucose Hemoglobin A1c Lactic Acid 9.70 H* Calcium 7.1 L Phosphorus Magnesium AST ALT Ammonia Troponin T 0.049 H D C-Reactive Protein Total Protein Albumin Triglycerides LDL Cholesterol Direct HDL Cholesterol Urine Creatinine Urine Total Protein 07/26/22 07/26/22 07/26/22 15:57 16:32 17:04 WBC RBC Hgb Hct MCV MCHC RDW Plt Count Lymph % (Auto) Lymph # (Auto) [place] # (Auto) Seg Neutrophils % Seg Neuts % (Manual) Lymphocytes % (Manual) Seg Neutrophils # Seg Neutrophils # Man Lymphocytes # (Manual) ABG pH ABG pO2 ABG HCO3 ABG O2 Saturation ABG Base Excess ABG Hemoglobin Oxyhemoglobin Sodium Potassium Chloride Carbon Dioxide BUN Creatinine Glucose POC Glucose 207 H 189 H 219 H Hemoglobin A1c Lactic Acid Calcium Phosphorus Magnesium AST ALT Ammonia Troponin T C-Reactive Protein Total Protein Albumin Triglycerides LDL Cholesterol Direct HDL Cholesterol Urine Creatinine Urine Total Protein 07/26/22 07/26/22 07/26/22 18:00 18:10 18:52 WBC RBC Hgb Hct MCV MCHC RDW Plt Count Lymph % (Auto) Lymph # (Auto) [place] # (Auto) Seg Neutrophils % Seg Neuts % (Manual) Lymphocytes % (Manual) Seg Neutrophils # Seg Neutrophils # Man Lymphocytes # (Manual) ABG pH ABG pO2 ABG HCO3 ABG O2 Saturation ABG Base Excess ABG Hemoglobin Oxyhemoglobin Sodium Potassium Chloride Carbon Dioxide BUN Creatinine Glucose POC Glucose 197 H 194 H Hemoglobin A1c Lactic Acid Calcium Phosphorus Magnesium AST ALT Ammonia Troponin T C-Reactive Protein Total Protein Albumin Triglycerides LDL Cholesterol Direct HDL Cholesterol Urine Creatinine 118.4 H Urine Total Protein 146 H 07/26/22 07/26/22 07/26/22 20:47 21:30 21:51 WBC RBC Hgb Hct MCV MCHC RDW Plt Count Lymph % (Auto) Lymph # (Auto) [place] # (Auto) Seg Neutrophils % Seg Neuts % (Manual) Lymphocytes % (Manual) Seg Neutrophils # Seg Neutrophils # Man Lymphocytes # (Manual) ABG pH ABG pO2 ABG HCO3 ABG O2 Saturation ABG Base Excess ABG Hemoglobin Oxyhemoglobin Sodium 155 H Potassium Chloride 123.5 H Carbon Dioxide 16 L BUN 53 H Creatinine 2.9 H Glucose 185 H POC Glucose 134 H 124 H Hemoglobin A1c Lactic Acid Calcium 7.0 L Phosphorus Magnesium AST ALT Ammonia Troponin T C-Reactive Protein Total Protein Albumin Triglycerides LDL Cholesterol Direct HDL Cholesterol Urine Creatinine Urine Total Protein 07/26/22 07/26/22 07/27/22 22:47 23:52 00:45 WBC RBC Hgb Hct MCV MCHC RDW Plt Count Lymph % (Auto) Lymph # (Auto) [place] # (Auto) Seg Neutrophils % Seg Neuts % (Manual) Lymphocytes % (Manual) Seg Neutrophils # Seg Neutrophils # Man Lymphocytes # (Manual) ABG pH ABG pO2 ABG HCO3 ABG O2 Saturation ABG Base Excess ABG Hemoglobin Oxyhemoglobin Sodium 155 H Potassium Chloride 124.2 H Carbon Dioxide 19 L BUN 53 H Creatinine 2.5 H Glucose 168 H POC Glucose 138 H 150 H Hemoglobin A1c Lactic Acid Calcium 6.7 L Phosphorus Magnesium AST ALT Ammonia Troponin T C-Reactive Protein Total Protein Albumin Triglycerides LDL Cholesterol Direct HDL Cholesterol Urine Creatinine Urine Total Protein 07/27/22 07/27/22 07/27/22 00:58 02:45 03:50 WBC 15.4 H RBC Hgb Hct MCV MCHC RDW 15.3 H Plt Count 60 L Lymph % (Auto) Lymph # (Auto) [place] # (Auto) Seg Neutrophils % Seg Neuts % (Manual) 78.0 H Lymphocytes % (Manual) 3.0 L Seg Neutrophils # Seg Neutrophils # Man 12.0 H Lymphocytes # (Manual) 0.5 L ABG pH ABG pO2 ABG HCO3 ABG O2 Saturation ABG Base Excess ABG Hemoglobin Oxyhemoglobin Sodium Potassium Chloride Carbon Dioxide BUN Creatinine Glucose POC Glucose 153 H 150 H Hemoglobin A1c Lactic Acid Calcium Phosphorus Magnesium AST ALT Ammonia Troponin T C-Reactive Protein Total Protein Albumin Triglycerides LDL Cholesterol Direct HDL Cholesterol Urine Creatinine Urine Total Protein 07/27/22 07/27/22 07/27/22 03:50 03:55 04:57 WBC RBC Hgb Hct MCV MCHC RDW Plt Count Lymph % (Auto) Lymph # (Auto) [place] # (Auto) Seg Neutrophils % Seg Neuts % (Manual) Lymphocytes % (Manual) Seg Neutrophils # Seg Neutrophils # Man Lymphocytes # (Manual) ABG pH ABG pO2 110.1 H ABG HCO3 13.3 L ABG O2 Saturation ABG Base Excess -9.0 L ABG Hemoglobin 13.1 L Oxyhemoglobin Sodium 154 H Potassium Chloride 123.0 H Carbon Dioxide 19 L BUN 55 H Creatinine 2.8 H Glucose 153 H POC Glucose 112 H Hemoglobin A1c Lactic Acid Calcium 6.8 L Phosphorus 1.30 L Magnesium AST 64 H ALT Ammonia Troponin T C-Reactive Protein Total Protein 4.1 L D Albumin 2.1 L Triglycerides LDL Cholesterol Direct HDL Cholesterol Urine Creatinine Urine Total Protein 07/27/22 07/27/22 07/27/22 08:22 09:30 10:49 WBC RBC Hgb Hct MCV MCHC RDW Plt Count Lymph % (Auto) Lymph # (Auto) [place] # (Auto) Seg Neutrophils % Seg Neuts % (Manual) Lymphocytes % (Manual) Seg Neutrophils # Seg Neutrophils # Man Lymphocytes # (Manual) ABG pH ABG pO2 ABG HCO3 ABG O2 Saturation ABG Base Excess ABG Hemoglobin Oxyhemoglobin Sodium Potassium Chloride Carbon Dioxide BUN Creatinine Glucose POC Glucose 146 H 153 H 163 H Hemoglobin A1c Lactic Acid Calcium Phosphorus Magnesium AST ALT Ammonia Troponin T C-Reactive Protein Total Protein Albumin Triglycerides LDL Cholesterol Direct HDL Cholesterol Urine Creatinine Urine Total Protein 07/27/22 07/27/22 07/27/22 12:13 12:44 17:17 WBC RBC Hgb Hct MCV MCHC RDW Plt Count Lymph % (Auto) Lymph # (Auto) [place] # (Auto) Seg Neutrophils % Seg Neuts % (Manual) Lymphocytes % (Manual) Seg Neutrophils # Seg Neutrophils # Man Lymphocytes # (Manual) ABG pH ABG pO2 ABG HCO3 ABG O2 Saturation ABG Base Excess ABG Hemoglobin Oxyhemoglobin Sodium Potassium Chloride Carbon Dioxide BUN Creatinine Glucose POC Glucose 190 H 287 H Hemoglobin A1c 12.3 H Lactic Acid Calcium Phosphorus Magnesium AST ALT Ammonia Troponin T C-Reactive Protein Total Protein Albumin Triglycerides LDL Cholesterol Direct HDL Cholesterol Urine Creatinine Urine Total Protein 07/28/22 07/28/22 07/28/22 00:22 03:58 04:05 WBC RBC Hgb Hct MCV MCHC RDW Plt Count Lymph % (Auto) Lymph # (Auto) [place] # (Auto) Seg Neutrophils % Seg Neuts % (Manual) Lymphocytes % (Manual) Seg Neutrophils # Seg Neutrophils # Man Lymphocytes # (Manual) ABG pH ABG pO2 171.2 H ABG HCO3 12.3 L ABG O2 Saturation 99.2 H ABG Base Excess -9.7 L ABG Hemoglobin 10.9 L Oxyhemoglobin Sodium 148 H Potassium Chloride 117.0 H Carbon Dioxide 16 L BUN 74 H Creatinine 3.2 H Glucose 471 H POC Glucose 379 H Hemoglobin A1c Lactic Acid Calcium 6.2 L Phosphorus Magnesium AST ALT Ammonia Troponin T C-Reactive Protein Total Protein Albumin Triglycerides LDL Cholesterol Direct HDL Cholesterol Urine Creatinine Urine Total Protein 07/28/22 07/28/22 07/28/22 04:05 05:36 12:50 WBC 13.9 H RBC Hgb 11.2 L Hct MCV MCHC 31 L RDW 15.9 H Plt Count 48 L Lymph % (Auto) Lymph # (Auto) [place] # (Auto) Seg Neutrophils % Seg Neuts % (Manual) Lymphocytes % (Manual) Seg Neutrophils # Seg Neutrophils # Man Lymphocytes # (Manual) ABG pH ABG pO2 ABG HCO3 ABG O2 Saturation ABG Base Excess ABG Hemoglobin Oxyhemoglobin Sodium Potassium Chloride Carbon Dioxide BUN Creatinine Glucose POC Glucose 390 H 399 H Hemoglobin A1c Lactic Acid Calcium Phosphorus Magnesium AST ALT Ammonia Troponin T C-Reactive Protein Total Protein Albumin Triglycerides LDL Cholesterol Direct HDL Cholesterol Urine Creatinine Urine Total Protein 07/28/22 07/28/22 07/28/22 17:27 18:16 23:31 WBC RBC Hgb Hct MCV MCHC RDW Plt Count Lymph % (Auto) Lymph # (Auto) [place] # (Auto) Seg Neutrophils % Seg Neuts % (Manual) Lymphocytes % (Manual) Seg Neutrophils # Seg Neutrophils # Man Lymphocytes # (Manual) ABG pH ABG pO2 ABG HCO3 ABG O2 Saturation ABG Base Excess ABG Hemoglobin Oxyhemoglobin Sodium Potassium Chloride Carbon Dioxide BUN Creatinine Glucose POC Glucose 434 H 331 H Hemoglobin A1c Lactic Acid Calcium Phosphorus 2.00 L D Magnesium AST ALT Ammonia Troponin T C-Reactive Protein Total Protein Albumin Triglycerides LDL Cholesterol Direct HDL Cholesterol Urine Creatinine Urine Total Protein 07/29/22 07/29/22 07/29/22 04:47 05:30 06:10 WBC RBC Hgb Hct MCV MCHC RDW Plt Count Lymph % (Auto) Lymph # (Auto) [place] # (Auto) Seg Neutrophils % Seg Neuts % (Manual) Lymphocytes % (Manual) Seg Neutrophils # Seg Neutrophils # Man Lymphocytes # (Manual) ABG pH 7.498 H ABG pO2 166.4 H ABG HCO3 16.2 L ABG O2 Saturation 99.1 H ABG Base Excess -5.4 L ABG Hemoglobin 10.7 L Oxyhemoglobin Sodium 151 H Potassium 3.5 L D Chloride 120.4 H Carbon Dioxide 17 L BUN 80 H Creatinine 2.8 H Glucose 303 H POC Glucose 261 H Hemoglobin A1c Lactic Acid Calcium 6.9 L Phosphorus Magnesium AST ALT Ammonia Troponin T C-Reactive Protein Total Protein Albumin Triglycerides LDL Cholesterol Direct HDL Cholesterol Urine Creatinine Urine Total Protein 07/29/22 07/29/22 07/29/22 09:18 12:31 13:40 WBC 16.0 H RBC Hgb Hct MCV 96 H MCHC 30 L RDW 17.6 H Plt Count 84 L Lymph % (Auto) Lymph # (Auto) [place] # (Auto) Seg Neutrophils % Seg Neuts % (Manual) Lymphocytes % (Manual) Seg Neutrophils # Seg Neutrophils # Man Lymphocytes # (Manual) ABG pH ABG pO2 ABG HCO3 ABG O2 Saturation ABG Base Excess ABG Hemoglobin Oxyhemoglobin Sodium Potassium Chloride Carbon Dioxide BUN Creatinine Glucose POC Glucose 287 H 291 H Hemoglobin A1c Lactic Acid Calcium Phosphorus Magnesium AST ALT Ammonia Troponin T C-Reactive Protein Total Protein Albumin Triglycerides LDL Cholesterol Direct HDL Cholesterol Urine Creatinine Urine Total Protein 07/29/22 07/29/22 07/30/22 17:19 23:57 04:25 WBC RBC Hgb Hct MCV MCHC RDW Plt Count Lymph % (Auto) Lymph # (Auto) [place] # (Auto) Seg Neutrophils % Seg Neuts % (Manual) Lymphocytes % (Manual) Seg Neutrophils # Seg Neutrophils # Man Lymphocytes # (Manual) ABG pH 7.461 H ABG pO2 123.0 H ABG HCO3 18.6 L ABG O2 Saturation ABG Base Excess -4.1 L ABG Hemoglobin 10.8 L Oxyhemoglobin Sodium Potassium Chloride Carbon Dioxide BUN Creatinine Glucose POC Glucose 272 H 205 H Hemoglobin A1c Lactic Acid Calcium Phosphorus Magnesium AST ALT Ammonia Troponin T C-Reactive Protein Total Protein Albumin Triglycerides LDL Cholesterol Direct HDL Cholesterol Urine Creatinine Urine Total Protein 07/30/22 07/30/22 07/30/22 04:42 04:42 05:17 WBC RBC Hgb 11.1 L Hct 33.1 L D MCV MCHC RDW 16.0 H Plt Count 34 L Lymph % (Auto) Lymph # (Auto) [place] # (Auto) Seg Neutrophils % Seg Neuts % (Manual) Lymphocytes % (Manual) Seg Neutrophils # Seg Neutrophils # Man Lymphocytes # (Manual) ABG pH ABG pO2 ABG HCO3 ABG O2 Saturation ABG Base Excess ABG Hemoglobin Oxyhemoglobin Sodium 148 H Potassium 3.2 L Chloride 116.7 H Carbon Dioxide 18 L BUN 69 H Creatinine 2.0 H Glucose 197 H POC Glucose 185 H Hemoglobin A1c Lactic Acid Calcium 6.8 L Phosphorus 1.70 L Magnesium AST ALT Ammonia Troponin T C-Reactive Protein Total Protein Albumin Triglycerides LDL Cholesterol Direct HDL Cholesterol Urine Creatinine Urine Total Protein 07/30/22 07/30/22 07/30/22 11:41 16:14 23:07 WBC RBC Hgb Hct MCV MCHC RDW Plt Count Lymph % (Auto) Lymph # (Auto) [place] # (Auto) Seg Neutrophils % Seg Neuts % (Manual) Lymphocytes % (Manual) Seg Neutrophils # Seg Neutrophils # Man Lymphocytes # (Manual) ABG pH ABG pO2 ABG HCO3 ABG O2 Saturation ABG Base Excess ABG Hemoglobin Oxyhemoglobin Sodium Potassium Chloride Carbon Dioxide BUN Creatinine Glucose POC Glucose 199 H 173 H 159 H Hemoglobin A1c Lactic Acid Calcium Phosphorus Magnesium AST ALT Ammonia Troponin T C-Reactive Protein Total Protein Albumin Triglycerides LDL Cholesterol Direct HDL Cholesterol Urine Creatinine Urine Total Protein 07/31/22 07/31/22 07/31/22 03:25 04:00 04:13 WBC RBC Hgb 10.5 L Hct 32.8 L MCV MCHC RDW 15.3 H Plt Count 55 L Lymph % (Auto) Lymph # (Auto) [place] # (Auto) Seg Neutrophils % Seg Neuts % (Manual) Lymphocytes % (Manual) Seg Neutrophils # Seg Neutrophils # Man Lymphocytes # (Manual) ABG pH 7.513 H ABG pO2 64.1 L ABG HCO3 ABG O2 Saturation ABG Base Excess ABG Hemoglobin 10.5 L Oxyhemoglobin 93.8 L Sodium 146 H Potassium 3.4 L Chloride 112.5 H Carbon Dioxide 21 L BUN 53 H Creatinine 1.6 H Glucose 151 H POC Glucose Hemoglobin A1c Lactic Acid Calcium 6.4 L Phosphorus Magnesium AST ALT Ammonia Troponin T C-Reactive Protein Total Protein Albumin Triglycerides LDL Cholesterol Direct HDL Cholesterol Urine Creatinine Urine Total Protein 07/31/22 07/31/22 07/31/22 05:39 11:08 16:11 WBC RBC Hgb Hct MCV MCHC RDW Plt Count Lymph % (Auto) Lymph # (Auto) [place] # (Auto) Seg Neutrophils % Seg Neuts % (Manual) Lymphocytes % (Manual) Seg Neutrophils # Seg Neutrophils # Man Lymphocytes # (Manual) ABG pH ABG pO2 ABG HCO3 ABG O2 Saturation ABG Base Excess ABG Hemoglobin Oxyhemoglobin Sodium Potassium Chloride Carbon Dioxide BUN Creatinine Glucose POC Glucose 155 H 132 H 150 H Hemoglobin A1c Lactic Acid Calcium Phosphorus Magnesium AST ALT Ammonia Troponin T C-Reactive Protein Total Protein Albumin Triglycerides LDL Cholesterol Direct HDL Cholesterol Urine Creatinine Urine Total Protein 07/31/22 08/01/22 08/01/22 23:48 04:17 04:17 WBC RBC 3.62 L Hgb 10.6 L Hct 31.8 L MCV MCHC RDW 15.7 H Plt Count 90 L Lymph % (Auto) Lymph # (Auto) [place] # (Auto) Seg Neutrophils % Seg Neuts % (Manual) Lymphocytes % (Manual) Seg Neutrophils # Seg Neutrophils # Man Lymphocytes # (Manual) ABG pH ABG pO2 ABG HCO3 ABG O2 Saturation ABG Base Excess ABG Hemoglobin Oxyhemoglobin Sodium 147 H Potassium 3.3 L Chloride 113.7 H Carbon Dioxide BUN 46 H Creatinine Glucose 141 H POC Glucose 133 H Hemoglobin A1c Lactic Acid Calcium 6.0 L Phosphorus 2.00 L Magnesium 1.50 L AST ALT Ammonia Troponin T C-Reactive Protein Total Protein Albumin Triglycerides LDL Cholesterol Direct HDL Cholesterol Urine Creatinine Urine Total Protein 08/01/22 08/01/22 08/01/22 05:46 11:17 17:44 WBC RBC Hgb Hct MCV MCHC RDW Plt Count Lymph % (Auto) Lymph # (Auto) [place] # (Auto) Seg Neutrophils % Seg Neuts % (Manual) Lymphocytes % (Manual) Seg Neutrophils # Seg Neutrophils # Man Lymphocytes # (Manual) ABG pH ABG pO2 ABG HCO3 ABG O2 Saturation ABG Base Excess ABG Hemoglobin Oxyhemoglobin Sodium Potassium Chloride Carbon Dioxide BUN Creatinine Glucose POC Glucose 116 H 190 H 179 H Hemoglobin A1c Lactic Acid Calcium Phosphorus Magnesium AST ALT Ammonia Troponin T C-Reactive Protein Total Protein Albumin Triglycerides LDL Cholesterol Direct HDL Cholesterol Urine Creatinine Urine Total Protein 08/01/22 08/02/22 08/02/22 23:34 04:48 04:48 WBC RBC 3.61 L Hgb 10.2 L Hct 31.9 L MCV MCHC RDW 15.8 H Plt Count 130 L Lymph % (Auto) Lymph # (Auto) [place] # (Auto) Seg Neutrophils % Seg Neuts % (Manual) Lymphocytes % (Manual) Seg Neutrophils # Seg Neutrophils # Man Lymphocytes # (Manual) ABG pH ABG pO2 ABG HCO3 ABG O2 Saturation ABG Base Excess ABG Hemoglobin Oxyhemoglobin Sodium 148 H Potassium 3.4 L Chloride 113.1 H Carbon Dioxide 16 L BUN 45 H Creatinine Glucose 213 H POC Glucose 193 H Hemoglobin A1c Lactic Acid Calcium 5.9 L* Phosphorus 2.30 L Magnesium AST ALT Ammonia Troponin T C-Reactive Protein Total Protein Albumin Triglycerides LDL Cholesterol Direct HDL Cholesterol Urine Creatinine Urine Total Protein 08/02/22 08/02/22 08/02/22 05:38 23:04 23:30 WBC RBC Hgb Hct MCV MCHC RDW Plt Count Lymph % (Auto) Lymph # (Auto) [place] # (Auto) Seg Neutrophils % Seg Neuts % (Manual) Lymphocytes % (Manual) Seg Neutrophils # Seg Neutrophils # Man Lymphocytes # (Manual) ABG pH ABG pO2 ABG HCO3 ABG O2 Saturation ABG Base Excess ABG Hemoglobin Oxyhemoglobin Sodium Potassium Chloride Carbon Dioxide BUN Creatinine Glucose POC Glucose 193 H 65 L 111 H Hemoglobin A1c Lactic Acid Calcium Phosphorus Magnesium AST ALT Ammonia Troponin T C-Reactive Protein Total Protein Albumin Triglycerides LDL Cholesterol Direct HDL Cholesterol Urine Creatinine Urine Total Protein 08/03/22 08/03/22 08/03/22 03:35 04:40 04:40 WBC 12.7 H RBC 3.36 L Hgb 9.5 L Hct 29.8 L MCV MCHC RDW 15.7 H Plt Count Lymph % (Auto) Lymph # (Auto) [place] # (Auto) Seg Neutrophils % Seg Neuts % (Manual) Lymphocytes % (Manual) Seg Neutrophils # Seg Neutrophils # Man Lymphocytes # (Manual) ABG pH 7.500 H ABG pO2 129.6 H ABG HCO3 ABG O2 Saturation ABG Base Excess ABG Hemoglobin 9.7 L Oxyhemoglobin Sodium Potassium 3.3 L Chloride 107.9 H Carbon Dioxide 21 L BUN 37 H Creatinine Glucose 111 H POC Glucose Hemoglobin A1c Lactic Acid Calcium 5.5 L* Phosphorus Magnesium 1.60 L AST ALT Ammonia Troponin T C-Reactive Protein Total Protein Albumin Triglycerides LDL Cholesterol Direct HDL Cholesterol Urine Creatinine Urine Total Protein 08/03/22 08/03/22 08/04/22 05:24 17:18 00:17 WBC RBC Hgb Hct MCV MCHC RDW Plt Count Lymph % (Auto) Lymph # (Auto) [place] # (Auto) Seg Neutrophils % Seg Neuts % (Manual) Lymphocytes % (Manual) Seg Neutrophils # Seg Neutrophils # Man Lymphocytes # (Manual) ABG pH ABG pO2 ABG HCO3 ABG O2 Saturation ABG Base Excess ABG Hemoglobin Oxyhemoglobin Sodium Potassium Chloride Carbon Dioxide BUN Creatinine Glucose POC Glucose 115 H 111 H 64 L Hemoglobin A1c Lactic Acid Calcium Phosphorus Magnesium AST ALT Ammonia Troponin T C-Reactive Protein Total Protein Albumin Triglycerides LDL Cholesterol Direct HDL Cholesterol Urine Creatinine Urine Total Protein 08/04/22 08/04/22 08/04/22 04:39 04:39 05:36 WBC 14.2 H RBC 3.61 L Hgb 10.3 L Hct 31.2 L MCV MCHC RDW 15.4 H Plt Count Lymph % (Auto) Lymph # (Auto) [place] # (Auto) Seg Neutrophils % Seg Neuts % (Manual) Lymphocytes % (Manual) Seg Neutrophils # Seg Neutrophils # Man Lymphocytes # (Manual) ABG pH ABG pO2 ABG HCO3 ABG O2 Saturation ABG Base Excess ABG Hemoglobin Oxyhemoglobin Sodium Potassium 3.1 L Chloride Carbon Dioxide 18 L BUN 30 H Creatinine Glucose 68 L POC Glucose 68 L Hemoglobin A1c Lactic Acid Calcium 6.1 L Phosphorus 2.00 L D Magnesium AST ALT Ammonia Troponin T C-Reactive Protein Total Protein Albumin Triglycerides LDL Cholesterol Direct HDL Cholesterol Urine Creatinine Urine Total Protein 08/04/22 08/04/22 08/04/22 06:32 11:37 17:53 WBC RBC Hgb Hct MCV MCHC RDW Plt Count Lymph % (Auto) Lymph # (Auto) [place] # (Auto) Seg Neutrophils % Seg Neuts % (Manual) Lymphocytes % (Manual) Seg Neutrophils # Seg Neutrophils # Man Lymphocytes # (Manual) ABG pH ABG pO2 ABG HCO3 ABG O2 Saturation ABG Base Excess ABG Hemoglobin Oxyhemoglobin Sodium Potassium Chloride Carbon Dioxide BUN Creatinine Glucose POC Glucose 110 H 118 H 171 H Hemoglobin A1c Lactic Acid Calcium Phosphorus Magnesium AST ALT Ammonia Troponin T C-Reactive Protein Total Protein Albumin Triglycerides LDL Cholesterol Direct HDL Cholesterol Urine Creatinine Urine Total Protein 08/04/22 08/04/22 08/05/22 23:41 23:43 04:46 WBC 12.5 H RBC Hgb 10.8 L Hct 33.3 L MCV MCHC RDW 15.8 H Plt Count 138 L Lymph % (Auto) Lymph # (Auto) [place] # (Auto) Seg Neutrophils % Seg Neuts % (Manual) Lymphocytes % (Manual) Seg Neutrophils # Seg Neutrophils # Man Lymphocytes # (Manual) ABG pH ABG pO2 ABG HCO3 ABG O2 Saturation ABG Base Excess ABG Hemoglobin Oxyhemoglobin Sodium Potassium Chloride Carbon Dioxide BUN Creatinine Glucose POC Glucose 226 H 218 H Hemoglobin A1c Lactic Acid Calcium Phosphorus Magnesium AST ALT Ammonia Troponin T C-Reactive Protein Total Protein Albumin Triglycerides LDL Cholesterol Direct HDL Cholesterol Urine Creatinine Urine Total Protein 08/05/22 08/05/22 08/05/22 04:46 06:05 11:42 WBC RBC Hgb Hct MCV MCHC RDW Plt Count Lymph % (Auto) Lymph # (Auto) [place] # (Auto) Seg Neutrophils % Seg Neuts % (Manual) Lymphocytes % (Manual) Seg Neutrophils # Seg Neutrophils # Man Lymphocytes # (Manual) ABG pH ABG pO2 ABG HCO3 ABG O2 Saturation ABG Base Excess ABG Hemoglobin Oxyhemoglobin Sodium Potassium Chloride Carbon Dioxide 16 L BUN 29 H Creatinine Glucose 179 H POC Glucose 220 H 180 H Hemoglobin A1c Lactic Acid Calcium 6.1 L Phosphorus Magnesium AST ALT Ammonia Troponin T C-Reactive Protein Total Protein Albumin Triglycerides LDL Cholesterol Direct HDL Cholesterol Urine Creatinine Urine Total Protein 08/05/22 08/05/22 08/05/22 17:39 21:10 21:43 WBC RBC Hgb Hct MCV MCHC RDW Plt Count Lymph % (Auto) Lymph # (Auto) [place] # (Auto) Seg Neutrophils % Seg Neuts % (Manual) Lymphocytes % (Manual) Seg Neutrophils # Seg Neutrophils # Man Lymphocytes # (Manual) ABG pH ABG pO2 ABG HCO3 ABG O2 Saturation ABG Base Excess ABG Hemoglobin Oxyhemoglobin Sodium Potassium Chloride Carbon Dioxide BUN Creatinine Glucose POC Glucose 207 H 185 H Hemoglobin A1c Lactic Acid Calcium Phosphorus Magnesium AST ALT Ammonia Troponin T C-Reactive Protein 21.50 H Total Protein Albumin Triglycerides LDL Cholesterol Direct HDL Cholesterol Urine Creatinine Urine Total Protein 08/05/22 08/06/22 08/06/22 23:38 05:13 05:20 WBC RBC 3.32 L Hgb 9.4 L Hct 29.4 L MCV MCHC RDW 15.6 H Plt Count Lymph % (Auto) Lymph # (Auto) [place] # (Auto) Seg Neutrophils % Seg Neuts % (Manual) Lymphocytes % (Manual) Seg Neutrophils # Seg Neutrophils # Man Lymphocytes # (Manual) ABG pH ABG pO2 ABG HCO3 ABG O2 Saturation ABG Base Excess ABG Hemoglobin Oxyhemoglobin Sodium Potassium Chloride Carbon Dioxide BUN Creatinine Glucose POC Glucose 198 H 182 H Hemoglobin A1c Lactic Acid Calcium Phosphorus Magnesium AST ALT Ammonia Troponin T C-Reactive Protein Total Protein Albumin Triglycerides LDL Cholesterol Direct HDL Cholesterol Urine Creatinine Urine Total Protein 08/06/22 08/06/22 08/06/22 05:20 11:25 16:13 WBC RBC Hgb Hct MCV MCHC RDW Plt Count Lymph % (Auto) Lymph # (Auto) [place] # (Auto) Seg Neutrophils % Seg Neuts % (Manual) Lymphocytes % (Manual) Seg Neutrophils # Seg Neutrophils # Man Lymphocytes # (Manual) ABG pH ABG pO2 ABG HCO3 ABG O2 Saturation ABG Base Excess ABG Hemoglobin Oxyhemoglobin Sodium Potassium Chloride 107.2 H Carbon Dioxide 21 L BUN 25 H Creatinine Glucose 176 H POC Glucose 155 H 176 H Hemoglobin A1c Lactic Acid Calcium 6.1 L Phosphorus 1.80 L D Magnesium 1.60 L AST ALT Ammonia Troponin T C-Reactive Protein Total Protein Albumin Triglycerides LDL Cholesterol Direct HDL Cholesterol Urine Creatinine Urine Total Protein 08/06/22 08/06/22 08/07/22 21:34 23:22 00:02 WBC RBC 2.98 L Hgb 8.4 L Hct 26.2 L MCV MCHC RDW 15.5 H Plt Count Lymph % (Auto) 11.3 L Lymph # (Auto) 0.9 L [place] # (Auto) Seg Neutrophils % 81.9 H Seg Neuts % (Manual) Lymphocytes % (Manual) Seg Neutrophils # Seg Neutrophils # Man Lymphocytes # (Manual) ABG pH ABG pO2 ABG HCO3 ABG O2 Saturation ABG Base Excess ABG Hemoglobin Oxyhemoglobin Sodium Potassium Chloride Carbon Dioxide BUN Creatinine Glucose POC Glucose 206 H 188 H Hemoglobin A1c Lactic Acid Calcium Phosphorus Magnesium AST ALT Ammonia Troponin T C-Reactive Protein Total Protein Albumin Triglycerides LDL Cholesterol Direct HDL Cholesterol Urine Creatinine Urine Total Protein 08/07/22 08/07/22 08/07/22 04:16 04:16 04:49 WBC RBC 3.12 L Hgb 8.8 L Hct 27.4 L MCV MCHC RDW 15.4 H Plt Count Lymph % (Auto) 10.6 L Lymph # (Auto) 0.9 L [place] # (Auto) Seg Neutrophils % 83.1 H Seg Neuts % (Manual) Lymphocytes % (Manual) Seg Neutrophils # Seg Neutrophils # Man Lymphocytes # (Manual) ABG pH ABG pO2 ABG HCO3 ABG O2 Saturation ABG Base Excess ABG Hemoglobin Oxyhemoglobin Sodium Potassium 3.4 L Chloride 107.8 H Carbon Dioxide BUN 21 H Creatinine Glucose 216 H POC Glucose 192 H Hemoglobin A1c Lactic Acid Calcium 6.1 L Phosphorus 2.00 L Magnesium AST 76 H ALT Ammonia Troponin T C-Reactive Protein Total Protein 5.1 L Albumin 1.8 L Triglycerides LDL Cholesterol Direct HDL Cholesterol Urine Creatinine Urine Total Protein 08/07/22 08/07/22 08/07/22 11:28 16:15 22:16 WBC RBC Hgb Hct MCV MCHC RDW Plt Count Lymph % (Auto) Lymph # (Auto) [place] # (Auto) Seg Neutrophils % Seg Neuts % (Manual) Lymphocytes % (Manual) Seg Neutrophils # Seg Neutrophils # Man Lymphocytes # (Manual) ABG pH ABG pO2 ABG HCO3 ABG O2 Saturation ABG Base Excess ABG Hemoglobin Oxyhemoglobin Sodium Potassium Chloride Carbon Dioxide BUN Creatinine Glucose POC Glucose 204 H 203 H 175 H Hemoglobin A1c Lactic Acid Calcium Phosphorus Magnesium AST ALT Ammonia Troponin T C-Reactive Protein Total Protein Albumin Triglycerides LDL Cholesterol Direct HDL Cholesterol Urine Creatinine Urine Total Protein 08/08/22 08/08/22 08/08/22 00:01 04:46 04:46 WBC RBC 3.16 L Hgb 8.9 L Hct 27.4 L MCV MCHC RDW 15.5 H Plt Count Lymph % (Auto) Lymph # (Auto) [place] # (Auto) Seg Neutrophils % Seg Neuts % (Manual) Lymphocytes % (Manual) Seg Neutrophils # Seg Neutrophils # Man Lymphocytes # (Manual) ABG pH ABG pO2 ABG HCO3 ABG O2 Saturation ABG Base Excess ABG Hemoglobin Oxyhemoglobin Sodium Potassium Chloride Carbon Dioxide BUN Creatinine Glucose 200 H POC Glucose 183 H Hemoglobin A1c Lactic Acid Calcium 6.3 L Phosphorus Magnesium AST 81 H ALT Ammonia Troponin T C-Reactive Protein Total Protein 5.1 L Albumin 1.7 L Triglycerides LDL Cholesterol Direct HDL Cholesterol Urine Creatinine Urine Total Protein 08/08/22 06:14 WBC RBC Hgb Hct MCV MCHC RDW Plt Count Lymph % (Auto) Lymph # (Auto) [place] # (Auto) Seg Neutrophils % Seg Neuts % (Manual) Lymphocytes % (Manual) Seg Neutrophils # Seg Neutrophils # Man Lymphocytes # (Manual) ABG pH ABG pO2 ABG HCO3 ABG O2 Saturation ABG Base Excess ABG Hemoglobin Oxyhemoglobin Sodium Potassium Chloride Carbon Dioxide BUN Creatinine Glucose POC Glucose 206 H Hemoglobin A1c Lactic Acid Calcium Phosphorus Magnesium AST ALT Ammonia Troponin T C-Reactive Protein Total Protein Albumin Triglycerides LDL Cholesterol Direct HDL Cholesterol Urine Creatinine Urine Total Protein
[2022-08-08] MEDS: VANCOMYCIN 750 MG in SODIUM CHLORIDE 0.9% 250ML 250 ML IV SCH (11:52)
--- NOTE | 2022-08-08 17:29 | Progress Note ---
Assessment and Plan Assessment and plan: Assessment/ Plan This is a 77-year-old male with DM, paroxysmal atrial fibrillation, HTN, CVA (2020) admitted s/p cardiac arrest with acute hypoxic respiratory failure and DKA Neuro: Acute metabolic encephalopathy, hepatic encephalopathy, ALEC ,subclinical status epilepticus ruled out, h/o CVA (2019) -Sluggish pupils, no cough/gag, periodic spontaneous respiration -Neurology consulted, appreciate recommendations -Initial CT head with no acute abnormality -EEG is Likely compatible with diffuse encephalopathy -Per neurology aim for euglycemia and permissive hypertension for now -Ammonia 64 -MRI brain shows diffuse diffusion abnormality involving cerebral and cerebellum compatible with diffuse hypoxia given the patient's history, interval evolving of left [employer]ICIAN infarct from 02/16/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 Cardiac: S/p cardiac arrest, A. fib RVR, h/o hypertension, paroxysmal atrial fibrillation, hyperlipidemia -Patient suffered cardiac arrest on 07/25 in the ED and then was noted to be in A. fib with RVR -Amiodarone PO -Cardiology consulted, appreciate recommendations -Blood pressure monitoring per protocol -S/p vasopressor support with Levophed and vasopressin -MAP goal greater than 65 -Echocardiogram shows EF 50 to 60%, no pericardial effusion -Lipitor Respiratory: Acute hypoxic respiratory failure -CCM consulted, appreciate recommendations -Intubated on 07/25 with a 8.00 ETT in the ED -08/02 s/p trach and peg exchange -A.m. vent settings: CPAP 10/24 -See RT notes for titration -A.m. ABG and CXR noted -VAP bundle -SPO2 monitoring GI: Protein calorie malnutrition -NTR consult for tube feeding -24-hour - 820 mL -08/02 peg exchange -PPI : Acute kidney injury likely secondary to vasomotor nephropathy (resolved), hypokalemia, hypophosphatemia -S/p 5 L LR bolus -Nephrology consulted, appreciate recommendations -Serum creatinine 03/08/2020 was 1.3 -Monitor intake and output -Renally dose medications -Avoid nephrotoxic medications -FeNa 1.8% -FWF -Renal ultrasound noted -Trend BMP ID: Sepsis, Klebsiella pneumonia -Hypotension, acute kidney injury, acute respiratory failure, lactic acidosis -Antibiotic therapy merrem -MRSA PCR negative -vancomycin dc -s/p solu-cortef -f/u blood culture -Monitor WBC and temperature curve Endo: s/p DKA, h/o DM -Presented with anion gap of 21, glucose of 761, VBG 7.362 -s/p Insulin drip -Accu-Cheks q6hr -SSI -Long-acting insulin, titrate as needed -Hemaglobin A1C 12.3 Heme: NAD -HIT negative -Trend CBC -Transfuse hemoglobin less than 7 -SCDs to BLE while in bed The high probability of a clinically significant, sudden or life threatening deterioration of the [multi] system(s) required my full and direct attention, intervention and personal management. The aggregate critical care time was [60] minutes. This time is in addition to time spent performing reported procedures but includes the following: [x] Data Review and interpretation [x] Patient assessment and monitoring of vital signs [x] Documentation [x] Medication orders and management Disposition Plan: icu Total Time Spent with Patient (Minutes): 60 History Interval history: This is a 77-year-old male who is chcf patient at [facility] with DM, paroxysmal atrial fibrillation, HTN, CVA (2020) presents the emergency department on 07/26 via EMS with hypoglycemia and unresponsiveness. In the emergency department patient was deciding 7% on room air and was placed on nonrebreather but sats have increased to greater than 81% and the patient was obtunded therefore ED physician decided to intubate the patient. Per documentation after intubation patient went into PEA arrest and ACLS was initiated and ROSC was achieved after approximately 13 minutes. Work-up in the emergency department revealed leukocytosis, hyponatremia 155, elevated BUN/creatinine at 3.5/74, anion gap metabolic acidosis and hyperglycemia 734. Patient was admitted to the hospital service with consults to cardiology, CCM and nephrology on DKA protocol on mechanical ventilation. Hospital course to date: 07/26: Patient is on any sedation, very sluggish pupillary response, no cough/gag noted, no seizure activity. Neurology recs repeat CT head without contrast or MRI brain without contrast when clinically stable. Patient also had a EEG completed today. Patient is currently maxed on Levophed and vasopressin. Given several LR boluses today. Antibiotics broadened and stress dose steroids added. 07/27: Weaning pressors, phosphorus repleted, SSI and long-acting insulin initiated, tube feeding initiated. Patient now has a hypoactive cough/gag. CT head pending. LR bolus. Thrombocytopenia noted. Cardiology would like to start heparin drip due to atrial fibrillation however would like neurology input prior to. 07/28: Patient remains off of vasopressors, patient had MRI today. Worsening renal function noted. Cardiology will hold off amiodarone due to thrombocytopenia. No acute events reported overnight. 07/29: I had an extensive conversation with son and at bedside to with the help of an corporate event planner through the wig stylist line. Explained thoroughly of presentation to the ED from documentation, cardiac arrest, CT head and MRI brain findings. They are still electing to continue aggressive care and would like hospital assistance with getting a visa for youngest son to come to the [facility] from [place]. production reproduction manager is aware of request. Steroid taper started. CBC pending. Will be repleted. Hypernatremia improving. 07/30: LR bolus, renal function is improved, thrombocytopenia worse. Likely consult surgery for trach/peg as per family requests to continue care. No acute events overnight. 07/31: Patient's mentation is unchanged. Remains on low vent setting. D/w [facility] general surgery consulted for possible trach and PEG. Renal function is improving, still hypenatremic, continue FWF per Nephrology. K repleted, continue to - Monitor and replace electrolytes as needed. Patient remains in SR on the monitor, VSS. Amiodarone gtt transitioned to PO amio per Cardio. 08/01: Condition unchanged, remains stable on low vent setting. Renal function continue to improve with persistent hypernatremia, continue FWF per Nephro. General Surgery recommendations noted. D/w General surgery, plan for possible trach and PEG exchange tomorrow or . 08/02: Remains stable on low vent settings. NPO since after midnight for possible trach/PEG today by General Surgery. Patient remains hypernatremic and due to NPO status, FWF was held. Will initiated low dose D5W gtt for now. And also to prevent hypoglycemia while NPO, patient is on Lantus BID. Currently on steroids taper, will hold tonight does and reduce Lantus to Qhs starting tomorrow. Close monitoring of BG and electrolytes. Nephrology is also following. 08/03: S/p trach and PEG exchange. Remains stable on the vent with no complications. Tolerating TF and also Tolerated 2hrs of PSV trial this am. Continue to taper IV steroids, qhs Lantus adjusted to avoid hypoglycemia. Hypernatremia improved, continue FWF per Nephro. Possible LTAC placement, case management to arrange. 08/04: ABRAM overnight. Sodium normalized this morning, electrolytes repleted, continue to monitor and replace electrolytes as needed. Nephrology is also following. Hypoglycemic overnight, TF not yet at goal, will hold Lantus for now. Continue daily PSV trial as tolerated. Possible LTAC placement, case management to arrange. 08/05: Now with thick secretions orally and via ETT, with persistent fevers. This am CXR suggesting possible developing lower lobe PNA. VSS. Will panculture and initiate empiric IV abx- Cefepine. Check CRP and procal. Remove Yañez catheter and follow Yañez removal protocol. ID was also consulted for further recs. TF is now at goal, hyperglycemic today, will resume qhs Lantus. Hyponatremia resolv ed, FWF adjusted. 08/06: Remains stable on low vent settings. Still with low grade fevers, procal a nd repeat cultures pending. ID recommendations noted. C/f for possible allergic reaction vs skin infection due to persistent skin blisters. Cefepine switched to Merrem and Vanco. Check CBC with Diff, continue to follow up on cultures. 08/07: No acute events reported overnight, T-max today 102. 08/16: Patient was noted to have blood clots in stool overnight and Lovenox was discontinued but was restarted given stable H&H. CPAP trial today. Vancomycin discontinued. Hospitalist Physical - Constitutional Vitals: Temp Pulse Resp BP Pulse Ox 97.8 F 86 16 149/83 97 08/08/22 16:59 08/08/22 16:00 08/08/22 16:00 08/08/22 16:00 08/08/22 16:00 General appearance: Present: no acute distress, other (Intubated and unresponsive) HEART Score - HEART Score Troponin: Troponin T 0.049 ng/mL (0.00-0.029) H D 07/26/22 15:36 Results - Labs CBC & Chem 7: 08/08/22 04:46 08/08/22 04:46 Labs: Laboratory Last Values WBC 9.9 K/mm3 (4.5-11.0) 08/08/22 04:46 RBC 3.16 M/mm3 (3.65-5.03) L 08/08/22 04:46 Hgb 8.9 gm/dl (11.8-15.2) L 08/08/22 04:46 Hct 27.4 % (35.5-45.6) L 08/08/22 04:46 MCV 87 fl (84-94) 08/08/22 04:46 MCH 28 pg (28-32) 08/08/22 04:46 MCHC 33 % (32-34) 08/08/22 04:46 RDW 15.5 % (13.2-15.2) H 08/08/22 04:46 Plt Count 187 K/mm3 (140-440) 08/08/22 04:46 Lymph % (Auto) 10.6 % (13.4-35.0) L 08/07/22 04:16 [place] % (Auto) 5.4 % (0.0-7.3) 08/07/22 04:16 Eos % (Auto) 0.7 % (0.0-4.3) 08/07/22 04:16 Baso % (Auto) 0.2 % (0.0-1.8) 08/07/22 04:16 Lymph # (Auto) 0.9 K/mm3 (1.2-5.4) L 08/07/22 04:16 [place] # (Auto) 0.4 K/mm3 (0.0-0.8) 08/07/22 04:16 Eos # (Auto) 0.1 K/mm3 (0.0-0.4) 08/07/22 04:16 Baso # (Auto) 0.0 K/mm3 (0.0-0.1) 08/07/22 04:16 Add Manual Diff Complete 07/27/22 03:50 Total Counted 100 07/27/22 03:50 Seg Neutrophils % 83.1 % (40.0-70.0) H 08/07/22 04:16 Seg Neuts % (Manual) 78.0 % (40.0-70.0) H 07/27/22 03:50 Band Neutrophils % 16.0 % 07/27/22 03:50 Lymphocytes % (Manual) 3.0 % (13.4-35.0) L 07/27/22 03:50 Reactive Lymphs % (Man) 0 % 07/27/22 03:50 Monocytes % (Manual) 2.0 % (0.0-7.3) 07/27/22 03:50 Eosinophils % (Manual) 0 % (0.0-4.3) 07/27/22 03:50 Basophils % (Manual) 0 % (0.0-1.8) 07/27/22 03:50 Metamyelocytes % 1.0 % 07/27/22 03:50 Myelocytes % 0 % 07/27/22 03:50 Promyelocytes % 0 % 07/27/22 03:50 Blast Cells % 0 % 07/27/22 03:50 Nucleated RBC % Not Reportable 07/27/22 03:50 Seg Neutrophils # 6.7 K/mm3 (1.8-7.7) 08/07/22 04:16 Seg Neutrophils # Man 12.0 K/mm3 (1.8-7.7) H 07/27/22 03:50 Band Neutrophils # 2.5 K/mm3 07/27/22 03:50 Lymphocytes # (Manual) 0.5 K/mm3 (1.2-5.4) L 07/27/22 03:50 Abs React Lymphs (Man) 0.0 K/mm3 07/27/22 03:50 Monocytes # (Manual) 0.3 K/mm3 (0.0-0.8) 07/27/22 03:50 Eosinophils # (Manual) 0.0 K/mm3 (0.0-0.4) 07/27/22 03:50 Basophils # (Manual) 0.0 K/mm3 (0.0-0.1) 07/27/22 03:50 Metamyelocytes # 0.2 K/mm3 07/27/22 03:50 Myelocytes # 0.0 K/mm3 07/27/22 03:50 Promyelocytes # 0.0 K/mm3 07/27/22 03:50 Blast Cells # 0.0 K/mm3 07/27/22 03:50 WBC Morphology Not Reportable 07/27/22 03:50 Hypersegmented Neuts Not Reportable 07/27/22 03:50 Hyposegmented Neuts Not Reportable 07/27/22 03:50 Hypogranular Neuts Not Reportable 07/27/22 03:50 Smudge Cells Not Reportable 07/27/22 03:50 Toxic Granulation Not Reportable 07/27/22 03:50 Toxic Vacuolation Not Reportable 07/27/22 03:50 Dohle Bodies Not Reportable 07/27/22 03:50 Pelger-Huet Anomaly Not Reportable 07/27/22 03:50 Jay Rods Not Reportable 07/27/22 03:50 Platelet Estimate Consistent w auto 07/27/22 03:50 Clumped Platelets Not Reportable 07/27/22 03:50 Plt Clumps, EDTA Not Reportable 07/27/22 03:50 Large Platelets Not Reportable 07/27/22 03:50 Giant Platelets Not Reportable 07/27/22 03:50 Platelet Satelliting Not Reportable 07/27/22 03:50 Plt Morphology Comment Not Reportable 07/27/22 03:50 RBC Morphology Not Reportable 07/27/22 03:50 Dimorphic RBCs Not Reportable 07/27/22 03:50 Polychromasia Not Reportable 07/27/22 03:50 Hypochromasia Not Reportable 07/27/22 03:50 Poikilocytosis Not Reportable 07/27/22 03:50 Anisocytosis Not Reportable 07/27/22 03:50 Microcytosis Not Reportable 07/27/22 03:50 Macrocytosis Not Reportable 07/27/22 03:50 Spherocytes Not Reportable 07/27/22 03:50 Pappenheimer Bodies Not Reportable 07/27/22 03:50 Sickle Cells Not Reportable 07/27/22 03:50 Target Cells Not Reportable 07/27/22 03:50 Tear Drop Cells Not Reportable 07/27/22 03:50 Ovalocytes Not Reportable 07/27/22 03:50 Helmet Cells Not Reportable 07/27/22 03:50 [place] Bodies Not Reportable 07/27/22 03:50 [place] Rings Not Reportable 07/27/22 03:50 [place] Cells Not Reportable 07/27/22 03:50 Bite Cells Not Reportable 07/27/22 03:50 Crenated Cell Not Reportable 07/27/22 03:50 Elliptocytes Not Reportable 07/27/22 03:50 Acanthocytes (Spur) Not Reportable 07/27/22 03:50 Rouleaux Not Reportable 07/27/22 03:50 Hemoglobin C Crystals Not Reportable 07/27/22 03:50 Schistocytes Not Reportable 07/27/22 03:50 Malaria parasites Not Reportable 07/27/22 03:50 [place] Bodies Not Reportable 07/27/22 03:50 Hem Pathologist Commnt No 07/27/22 03:50 PT 14.3 Sec. (12.2-14.9) 07/31/22 04:13 INR 0.97 (0.87-1.13) 07/31/22 04:13 Heparin Anti-Xa, Unfract Negative (Negative) 08/01/22 04:17 ABG pH 7.500 pH Units (7.350-7.450) H 08/03/22 03:35 ABG pCO2 26.7 mm Hg 08/03/22 03:35 ABG pO2 129.6 mm Hg (80.0-90.0) H 08/03/22 03:35 ABG HCO3 20.4 mmol/L (20.0-26.0) 08/03/22 03:35 ABG O2 Saturation 98.7 % (95.0-99.0) 08/03/22 03:35 ABG O2 Content 13.5 (0.0-44) 08/03/22 03:35 ABG Base Excess -2.0 mmol/L (-2.0-3.0) 08/03/22 03:35 ABG Hemoglobin 9.7 gm/dl (14.0-18.0) L 08/03/22 03:35 ABG Carboxyhemoglobin 1.5 % (0.0-5.0) 08/03/22 03:35 ABG Methemoglobin 0.4 % (0.0-1.5) 08/03/22 03:35 VBG pH 7.362 (7.320-7.420) 07/25/22 19:37 Oxyhemoglobin 96.8 % (95.0-99.0) 08/03/22 03:35 FiO2 30 % 08/03/22 03:35 Sodium 139 mmol/L (137-145) 08/08/22 04:46 Potassium 3.6 mmol/L (3.6-5.0) 08/08/22 04:46 Chloride 104.5 mmol/L (98-107) 08/08/22 04:46 Carbon Dioxide 22 mmol/L (22-30) 08/08/22 04:46 Anion Gap 16 mmol/L 08/08/22 04:46 BUN 19 mg/dL (9-20) 08/08/22 04:46 Creatinine 1.0 mg/dL (0.8-1.3) 08/08/22 04:46 Estimated GFR > 60 ml/min 08/08/22 04:46 BUN/Creatinine Ratio 19 % 08/08/22 04:46 Glucose 200 mg/dL (75-100) H 08/08/22 04:46 POC Glucose 199 mg/dL (70-105) H 08/08/22 16:41 Hemoglobin A1c 12.3 % (4-6) H 07/27/22 12:13 Lactic Acid 9.70 mmol/L (0.7-2.0) H* 07/26/22 15:36 Calcium 6.3 mg/dL (8.4-10.2) L 08/08/22 04:46 Phosphorus 2.00 mg/dL (2.5-4.5) L 08/07/22 04:16 Magnesium 1.80 mg/dL (1.7-2.3) 08/07/22 04:16 Total Bilirubin 0.30 mg/dL (0.1-1.2) 08/08/22 04:46 Direct Bilirubin < 0.2 mg/dL (0-0.2) 08/08/22 04:46 Indirect Bilirubin 0.1 mg/dL 08/08/22 04:46 AST 81 units/L (5-40) H 08/08/22 04:46 ALT 42 units/L (7-56) 08/08/22 04:46 Alkaline Phosphatase 116 units/L (35-129) 08/08/22 04:46 Ammonia 64.0 umol/L (25-60) H 07/25/22 19:37 Total Creatine Kinase 158 units/L (55-170) 07/25/22 19:37 CK-MB (CK-2) < 1.0 ng/mL (0.0-4.0) 07/25/22 19:37 CK-MB (CK-2) Rel Index 0.6 (0-4) 07/25/22 19:37 Troponin T 0.049 ng/mL (0.00-0.029) H D 07/26/22 15:36 C-Reactive Protein 21.50 mg/dL (0.00-1.30) H 08/05/22 21:43 Total Protein 5.1 g/dL (6.3-8.2) L 08/08/22 04:46 Albumin 1.7 g/dL (3.9-5) L 08/08/22 04:46 Albumin/Globulin Ratio 0.5 % 08/08/22 04:46 Triglycerides 362 mg/dL (2-149) H 07/25/22 19:37 Cholesterol 126 mg/dL (50-199) 07/25/22 19:37 LDL Cholesterol Direct 44 mg/dL (50-130) L 07/25/22 19:37 HDL Cholesterol 34 mg/dL (40-59) L 07/25/22 19:37 Cholesterol/HDL Ratio 3.70 % 07/25/22 19:37 Serotonin Release Assay See scanned result 08/01/22 04:17 Procalcitonin 0.56 ng/mL (<0.15) 08/05/22 21:43 TSH 2.170 mlU/mL (0.270-4.200) 07/25/22 19:37 Free T4 1.18 ng/dL (0.76-1.46) 07/25/22 19:37 Urine Color Lin (Yellow) 08/05/22 11:00 Urine Turbidity Cloudy (Clear) 08/05/22 11:00 Specific [place] (Man) 1.017 (1.003-1.030) 08/05/22 11:00 Ur Protein (Man) 2+ mg/dL (Negative) 08/05/22 11:00 Ur Ketones (Man) Negative (Negative) 08/05/22 11:00 Ur Nitrite (Man) Negative (Negative) 08/05/22 11:00 Ur Reducing Substances Not Reportable 07/26/22 08:31 Urine Bilirubin (Man) Negative (Negative) 08/05/22 11:00 Urine Ictotest Not Reportable 08/05/22 11:00 Leukocyte Esterase (Man) Negative (Negative) 08/05/22 11:00 Urine WBC (Auto) 6.0 /HPF (0.0-6.0) 08/05/22 11:00 Urine RBC (Auto) 6.0 /HPF (0.0-6.0) 08/05/22 11:00 U Epithel Cells (Auto) 1.0 /HPF (0-13.0) 08/05/22 11:00 Urine Bacteria (Auto) 1+ /HPF (Negative) 08/05/22 11:00 Urine RBC (Manual) 4+ (Negative) 08/05/22 11:00 Ur Renal Epithelial Cell 3 /LPF 07/26/22 08:31 Uric Acid Crystals Few 08/05/22 11:00 Amorphous Crystals Few 08/05/22 11:00 Urine Mucus Few /HPF 08/05/22 11:00 Urine Creatinine 118.4 mg/dL (0.1-20.0) H 07/26/22 18:10 Protein/Creatinin Ratio 1.23 07/26/22 18:10 Urine Sodium 108 mmol/L 07/26/22 18:10 Urine Total Protein 146 mg/dL (5-11.8) H 07/26/22 18:10 Nasal Screen MRSA (PCR) Negative (Negative) 08/05/22 14:00 Heparin-induced Plt Ab Negative (Negative) 08/01/22 04:17 UF Heparin High Dose 0 % Release 08/01/22 04:17 SU UFH Low Dose 0.1 0 % Release 08/01/22 04:17 SU UFH Low Dose 0.5 0 % Release 08/01/22 04:17 Microbiology: Microbiology 08/05/22 21:56 Peripheral/Venous Blood Culture - Preliminary NO GROWTH AFTER 48 HOURS 08/05/22 21:43 Peripheral/Venous Blood Culture - Preliminary NO GROWTH AFTER 48 HOURS Yañez/IV: Voiding Method Indwelling Catheter Active Medications - Current Medications Current Medications: Generic Name Dose Route Start Last Admin Trade Name Freq PRN Reason Stop Dose Admin Acetaminophen 650 mg 07/26/22 00:31 08/08/22 06:11 Acetaminophen 325 Mg Tab PO 650 mg Q4H PRN Administration Pain MILD(1-3)/Fever >100.5/LANTIGUA Acetaminophen 650 mg 07/26/22 02:04 Acetaminophen 650 Mg Rect Supp AR Q4H PRN Pain, Mild (1-3) Albuterol 2.5 mg 07/26/22 00:31 Albuterol 2.5 Mg/3 Ml Nebu IH Q3HRT PRN Shortness Of Breath Amiodarone HCl 200 mg 08/04/22 11:00 08/08/22 10:49 Amiodarone 200 Mg Tab FEEDTUBE 200 mg BID LIZZIE Administration Atorvastatin Calcium 40 mg 08/04/22 22:00 08/07/22 21:24 Atorvastatin 40 Mg Tab FEEDTUBE 40 mg QHS LIZZIE Administration Dextrose 50 ml 07/27/22 09:25 08/04/22 06:03 Dextrose 50% In Water (25gm) 50 Ml Syringe IV 50 ml Q30MIN PRN Administration Hypoglycemia Protocol Enoxaparin Sodium 40 mg 08/08/22 11:00 08/08/22 10:56 Enoxaparin 40 Mg/0.4 Ml Inj SUB-Q 40 mg QDAY@1000 LIZZIE Administration Famotidine 10 mg 07/28/22 10:00 08/08/22 10:49 Famotidine 10 Mg Tab FEEDTUBE 10 mg BID LIZZIE Administration Meropenem/Sodium Chloride 1 gram in 100 mls @ 100 mls/hr 08/06/22 10:00 08/08/22 10:49 Merrem/Ns 1 Gram/100 Ml IV 08/14/22 02:59 100 mls/hr Q8H [facility] Administration Protocol Insulin Glargine 15 units 08/07/22 22:00 08/07/22 23:17 Insulin Glargine 100 Units/Ml SUB-Q 15 units QHS LIZZIE Administration Insulin Human Regular 0 units 07/27/22 12:00 08/08/22 12:00 Insulin Regular, Human 100 Units/1 Ml SUB-Q 3 units Q6H [facility] Administration Protocol Multi-Ingred Cream/Lotion/Oil/Oint 1 applic 07/27/22 03:17 07/27/22 03:35 Mineral Oil/Petrolatum, White Ophth Oint 3.5 Gm OU 1 applic PRN PRN Administration Dry Eye(s) Nitroglycerin 0.4 mg 07/26/22 00:31 Nitroglycerin 0.4 Mg Tab Subl SL Q5M PRN Chest Pain Ondansetron HCl 4 mg 07/26/22 00:31 Ondansetron 4 Mg/2 Ml Inj IV Q8H PRN Nausea And Vomiting Sodium Bicarbonate 650 mg 08/04/22 14:00 08/08/22 13:38 Sodium Bicarbonate 650 Mg Tab FEEDTUBE 650 mg TID LIZZIE Administration Sodium Chloride 10 ml 07/26/22 10:00 08/08/22 10:49 Sodium Chloride 0.9% 10 Ml Flush Syringe IV 10 ml BID LIZZIE Administration Sodium Chloride 10 ml 07/26/22 00:31 Sodium Chloride 0.9% 10 Ml Flush Syringe IV PRN PRN LINE FLUSH Sodium Phosphate 250 mg 08/07/22 18:00 08/08/22 13:38 K-Phos Neutral 250 Mg Tab PO 08/09/22 17:59 250 mg QID LIZZIE Administration Nutrition/Malnutrition Assess - Dietary Evaluation Nutrition/Malnutrition Findings: Nutrition Notes Start: 07/26/22 10:25 Freq: Status: Active Protocol: Document 08/07/22 15:00 CM (Rec: 08/07/22 15:13 CM [id number]) Co-Sign 08/07/22 15:00 WW Nutrition Notes Initial or Follow up Brief Note Current Diagnosis Sepsis,Hypertension, Respiratory Failure,Stroke, Hyperlipidemia Other Pertinent Diagnosis s/p Cardiac Arrest, AMS Current Diet TF - Glucerna 45mL/hr Labs/Tests 08/07: K 3.4 Cl 107.8 BUN 21 Glu 216 Pertinent Medications 08/07: Atorvastatin Humulin Height 5 ft 5 in Weight 49.8 kg [place] Body Weight (kg) 61.81 BMI 18.2 Weight Status Underweight Subjective/Other Information RD follow-up per protocol. Pt currently receiving Glucerna @ 45mL/hr. RN reported loose stool 2x q day. No gastric residuals recorded. Pt continues ventilation via tracheostomy. Abdomen large, round, w/ BS+ per physical assessment. No contraindications to continue. GI Symptoms None Skin Integrity/Comment Kane 10 - breakdown / blisters Current % PO Other #2 Nutrition Diagnosis Underweight Diagnosis Progress(for reassessment Continues documentation) #1 Nutrition Diagnosis Inadequate oral intake Diagnosis Progress(for reassessment Continues documentation) Is patient on ventilator? Yes Is Patient Ambulatory and/or Out of Bed No REE-([facility]-confined to bed) 1398.456 Kcal/Kg value to use for calculation 31 Approximate Energy Requirements Using 1544 kcal/Kg Calculation Used for Recommendations Kcal/kg Additional Notes Pro needs 1.2-2.0g/k-100g /day Fluid needs per MD. Nutrition Intervention Nutrition Support: Change TF rate to 55mL/hr of Glucerna 1.2. Flush with 100mL q 4hrs. Kcal 1,584 Protein (gm) 79 Fluid (mL) 1,060 % RDI: 102%Kcal /100% AA Goal #1 TF tolerance Goal #2 TF to provide at least 75% energy and pro needs Follow-Up By: 08/14/22 Additional Comments Monitor TF administration, TF tolerance, nutrition-related labs, wt status.
[2022-08-08] MEDS: INSULIN GLARGINE 100 UNITS/ML SUB-Q SCH (22:51)
[2022-08-09] MEDS: INSULIN REGULAR, HUMAN 100 UNITS/1 ML SUB-Q SCH ×4 (00:20→17:58)
[2022-08-09] MEDS: MEROPENEM/NS 1 GRAM/100 ML 1 GRAM/100 ML BAG IV SCH ×3 (02:30→17:59)
[2022-08-09 05:17] LABS: Hematocrit 26.4 % (35.5-45.6); Hemoglobin 8.4 gm/dl (11.8-15.2); Mean Corpuscular HGB Conc 32 % (32-34); Mean Corpuscular Volume 88 fl (84-94); Platelet Count 210 K/mm3 (140-440); Red Cell Distribution Width 15.7 % (13.2-15.2)
[2022-08-09 05:33] LABS: BUN/Creatinine Ratio 17; Blood Urea Nitrogen 17 mg/dL (9-20); Calcium 6.2 mg/dL (8.4-10.2); Hemolysis Index 3
[2022-08-09] MEDS: SODIUM BICARBONATE 650 MG TAB FEEDTUBE SCH ×3 (07:50→21:23)
[2022-08-09] MEDS ORDERED: CALCIUM GLUCONATE 2,000 MG in SODIUM CHLORIDE 0.9% 100 ML IV ONE (08:39)
[2022-08-09] MEDS: AMIODARONE 200 MG TAB FEEDTUBE SCH ×2 (09:29→21:23)
[2022-08-09] MEDS: FAMOTIDINE 10 MG TAB FEEDTUBE SCH ×2 (09:29→21:23)
[2022-08-09] MEDS: K-PHOS NEUTRAL 250 MG TAB PO SCH ×2 (09:29→15:42)
[2022-08-09] MEDS: ENOXAPARIN 40 MG/0.4 ML INJ SUB-Q SCH (09:30)
[2022-08-09] MEDS ORDERED: POTASSIUM CHLORIDE 20 MEQ PACKET FEEDTUBE SCH (09:30)
[2022-08-09] MEDS ORDERED: MAGNESIUM SULFATE 2 GM/50 ML BAG IV SCH (10:00)
--- NOTE | 2022-08-09 11:05 | Progress Note ---
Assessment and Plan Assessment, plan. SIRS/sepsis: Initially secondary to Klebsiella pneumonia. Now with new fever since 08/04/2022 associated with new blistering rash and increasing tracheal secretions, likely HAP +/- allergic reaction +/- central fever. Bilateral pneumonia: Initially grew Klebsiella treated with cefepime for 7 days on June 02, 2022. Chest x-ray with worsening pneumonia. Blistering rash: Extensive blistery rash in lower extremities and arms. ? Star Sumeet's vs skin soft tissue infection. CRP 21 Acute respiratory failure: Status post trach and PEG. On the ventilator. Encephalopathy/CVA: ? Hepatic encephalopathy FREDI resolved Recommendations: Eosinophilia improved Skin biopsy may be necessary Follow-up repeat blood cultures Continue meropenem 1 g IV every 8 hours. Plan 8 days. Fevers recurring, unclear etiology. Eder Ngo MD [facility] ([facility]) O: [phone] F: [phone] Subjective Date of service: 08/09/22 Principal diagnosis: Hypernatremia, ARF Interval history: Febrile overnight to 100.9, white count normal. Cultures are remain negative. Objective - Exam Narrative Exam: Physical Exam: Constitutional: Intubated, sedated Head, Ears, Nose: Normocephalic, atraumatic. External ears, nose normal Eyes: Conjunctivae/corneas clear. No icterus. No ptosis. Neck: Supple, no meningeal signs Oral: ETT Cardiovascular: S1, S2 normal. Respiratory: Good air entry, clear to auscultation bilaterally GI: Soft, non-tender; bowel sounds normal. No peritoneal signs. Musculoskeletal: No pedal edema, no cyanosis. Skin: No rash or abscess Hem/Lymphatic: No palpable cervical or supraclavicular nodes. No lymphangitis Psych: Sedated Neurological: Sedated - Constitutional Vitals: Vital Signs Temp Pulse Resp BP Pulse Ox 100.1 F H 92 H 31 H 145/71 98 08/09/22 06:56 08/09/22 08:29 08/09/22 08:29 08/09/22 08:29 08/09/22 08:29 Temperature -Last 24 Hours Temperature 100.1 F Temperature 100.9 F Temperature 100.9 F Temperature 99.4 F Temperature 99 F Temperature 97.8 F Temperature 98.0 F - Labs CBC & Chem 7: 08/09/22 04:53 08/09/22 04:53 Labs: Abnormal lab results 08/08/22 08/08/22 08/08/22 Range/Units 11:27 16:41 22:50 RBC (3.65-5.03) M/mm3 Hgb (11.8-15.2) gm/dl Hct (35.5-45.6) % RDW (13.2-15.2) % Potassium (3.6-5.0) mmol/L Glucose (75-100) mg/dL POC Glucose 196 H 199 H 198 H (70-105) mg/dL Calcium (8.4-10.2) mg/dL 08/08/22 08/09/22 08/09/22 Range/Units 23:52 04:53 04:53 RBC 3.00 L (3.65-5.03) M/mm3 Hgb 8.4 L (11.8-15.2) gm/dl Hct 26.4 L (35.5-45.6) % RDW 15.7 H (13.2-15.2) % Potassium 3.5 L (3.6-5.0) mmol/L Glucose 181 H (75-100) mg/dL POC Glucose 226 H (70-105) mg/dL Calcium 6.2 L (8.4-10.2) mg/dL 08/09/22 Range/Units 05:38 RBC (3.65-5.03) M/mm3 Hgb (11.8-15.2) gm/dl Hct (35.5-45.6) % RDW (13.2-15.2) % Potassium (3.6-5.0) mmol/L Glucose (75-100) mg/dL POC Glucose 160 H (70-105) mg/dL Calcium (8.4-10.2) mg/dL
[2022-08-09] MEDS: CALCIUM CARBONATE 1250 MG/5 ML ORAL LIQD FEEDTUBE SCH ×2 (11:52→21:23)
--- NOTE | 2022-08-09 15:11 | Progress Note ---
Assessment and Plan 77 y/o male with cardiac arrest, intubated, not sedated with multisystem organ failure 08/09/22: Still spiking temps. ID following with abx therapy. Await placement 08/08/22: Stopping Vanc. Merrem for 8 days. Hold on imaging of head right now. LFT's are ok. Guarded prognosis. Await placement. 08/07/22: Abx therapy per ID. Tracheal aspirate was respiratory kristin. Bld Cx pending. If continues to spike fevers, need to consider repeat imaging of head (CT vs MRI). Could check for alcalculous cholecysitis. Suggest sending LFT's tomorrow. STill awaiting placement. Overall prognosis is guarded to poor. 08/04/22: CXR in am. Will order sputum as per report, secretions have increased. Abx therapy has stopped. Trach site stable. await placement. If spikes again, needs blood, urine and UA. 08/03/22: Await placement. Continue daily PSV. PT consult. 08/01/22: Follow up surgery recs. Continue supportive care. 07/31/22: Supportive care. Surgery consult for trach and peg. Renal function continues to improve. 07/30/22: Continue supportive measures. Family wants aggressive measures despite MRI findings so needs consult to surgery for trach and peg. Will drop steroids down to 25q8 or 50q12 Sunday. Continue volume as renal function is improving. needs more free water if possible. 07/29/22: Drop steroids to 50q8 starting today. CBC not checked, need to evaluate Platelets. Need to correct electrolytes as well. Family is likely going to want trach and peg based on earlier conversations but awaiting more family. Given recent MRI results, prognosis is very poor. 07/28/22: Hold on Volume today. Drop steroids down to 50q8 starting tomorrow. Follow up MRI. EEG results still pending. Platelets still dropping but no evidence of bleeding. Continue abx therapy. Continue feeds. Prognosis is sti ll guarded. 07/27/22: more volume again today. Echo showed normal EF. Wean pressors for MAPs >65, follow up EEg results. Hopeful to get head CT today. Platelets dropped today, not on heparin. Could be sepsis related. If head CT negative, may need to evaluate abdomen around peg. Will start trickle feeds today and transition of insulin drip. Prognosis is still guarded. 1. IVF resusciation with LR 2. Insulin drip and continue NPO state 3. Attempt to wean pressors for MAPs greater than 65 4. Monitor urine output 5. Broaden abx therapy given current clinical state 6. Follow up echo report 7. Agree with stress dose steroids 8. No sedation 9. EEG pending Overall prognosis is guarded to poor, especially given current clinical exam CCT 31 minutes. Subjective Date of service: 08/09/22 Principal diagnosis: Hypernatremia, ARF Interval history: no acute events. Objective Vital Signs - 12hr 08/09/22 08/09/22 08/09/22 03:41 04:00 04:05 Temperature 100.9 F H 100.9 F H Pulse Rate 92 H 93 H Pulse Rate [ 89 From Monitor] Respiratory 24 Rate Blood Pressure 147/78 134/61 O2 Sat by Pulse 97 99 Oximetry O2 Sat by Pulse Oximetry [ Assessment] 08/09/22 08/09/22 08/09/22 05:00 06:00 06:56 Temperature 100.1 F H Pulse Rate 92 H 95 H Pulse Rate [ From Monitor] Respiratory 24 25 H Rate Blood Pressure 134/61 143/67 O2 Sat by Pulse 97 97 Oximetry O2 Sat by Pulse Oximetry [ Assessment] 08/09/22 08/09/22 08/09/22 07:00 07:20 08:00 Temperature Pulse Rate 92 H 92 H Pulse Rate [ 91 H From Monitor] Respiratory 21 25 H 24 Rate Blood Pressure 140/74 143/67 O2 Sat by Pulse 97 96 97 Oximetry O2 Sat by Pulse Oximetry [ Assessment] 08/09/22 08/09/22 08/09/22 08:10 08:29 09:00 Temperature Pulse Rate 87 92 H 92 H Pulse Rate [ From Monitor] Respiratory 9 L 31 H 30 H Rate Blood Pressure 143/67 145/71 145/71 O2 Sat by Pulse 98 98 97 Oximetry O2 Sat by Pulse 100 Oximetry [ Assessment] 08/09/22 08/09/22 08/09/22 10:00 11:00 11:40 Temperature 99.7 F H Pulse Rate 93 H 105 H 91 H Pulse Rate [ From Monitor] Respiratory 32 H 31 H Rate Blood Pressure 144/74 129/55 O2 Sat by Pulse 97 96 Oximetry O2 Sat by Pulse Oximetry [ Assessment] 08/09/22 08/09/22 08/09/22 11:41 12:00 12:26 Temperature Pulse Rate 91 H 90 Pulse Rate [ 91 H From Monitor] Respiratory 29 H 31 H 30 H Rate Blood Pressure 122/54 124/52 O2 Sat by Pulse 96 97 96 Oximetry O2 Sat by Pulse Oximetry [ Assessment] 08/09/22 08/09/22 13:00 14:00 Temperature Pulse Rate 93 H 90 Pulse Rate [ From Monitor] Respiratory 34 H 23 Rate Blood Pressure 139/68 136/65 O2 Sat by Pulse 96 97 Oximetry O2 Sat by Pulse Oximetry [ Assessment] CBC and BMP: 08/09/22 04:53 08/09/22 04:53 ABG, PT/INR, D-dimer: ABG ABG pH 7.500 pH Units (7.350-7.450) H 08/03/22 03:35 ABG pCO2 26.7 mm Hg 08/03/22 03:35 ABG pO2 129.6 mm Hg (80.0-90.0) H 08/03/22 03:35 ABG O2 Saturation 98.7 % (95.0-99.0) 08/03/22 03:35 PT/INR, D-dimer PT 14.3 Sec. (12.2-14.9) 07/31/22 04:13 INR 0.97 (0.87-1.13) 07/31/22 04:13 Abnormal lab findings: Abnormal Labs 07/25/22 07/25/22 07/25/22 19:37 19:37 19:37 WBC 18.8 H RBC 6.31 H Hgb 18.8 H Hct 57.3 H MCV MCHC RDW Plt Count Lymph % (Auto) Lymph # (Auto) [place] # (Auto) 1.4 H Seg Neutrophils % 70.7 H Seg Neuts % (Manual) Lymphocytes % (Manual) Seg Neutrophils # 13.3 H Seg Neutrophils # Man Lymphocytes # (Manual) ABG pH ABG pO2 ABG HCO3 ABG O2 Saturation ABG Base Excess ABG Hemoglobin Oxyhemoglobin Sodium 149 H Potassium Chloride 110.3 H Carbon Dioxide 18 L BUN 73 H Creatinine 3.3 H Glucose 761 H* POC Glucose Hemoglobin A1c Lactic Acid Calcium 10.6 H Phosphorus Magnesium 3.10 H AST 63 H ALT 64 H Ammonia Troponin T 0.072 H C-Reactive Protein Total Protein 9.0 H Albumin Triglycerides 362 H LDL Cholesterol Direct 44 L HDL Cholesterol 34 L Urine Creatinine Urine Total Protein 07/25/22 07/25/22 07/25/22 19:37 21:08 22:10 WBC RBC Hgb Hct MCV MCHC RDW Plt Count Lymph % (Auto) Lymph # (Auto) [place] # (Auto) Seg Neutrophils % Seg Neuts % (Manual) Lymphocytes % (Manual) Seg Neutrophils # Seg Neutrophils # Man Lymphocytes # (Manual) ABG pH ABG pO2 ABG HCO3 ABG O2 Saturation ABG Base Excess ABG Hemoglobin Oxyhemoglobin Sodium 155 H Potassium Chloride 113.1 H Carbon Dioxide 14 L BUN 74 H Creatinine 3.5 H Glucose 734 H* POC Glucose Hemoglobin A1c Lactic Acid 12.70 H* Calcium Phosphorus Magnesium AST ALT Ammonia 64.0 H Troponin T C-Reactive Protein Total Protein Albumin Triglycerides LDL Cholesterol Direct HDL Cholesterol Urine Creatinine Urine Total Protein 07/25/22 07/25/22 07/26/22 22:20 23:29 00:13 WBC RBC Hgb Hct MCV MCHC RDW Plt Count Lymph % (Auto) Lymph # (Auto) [place] # (Auto) Seg Neutrophils % Seg Neuts % (Manual) Lymphocytes % (Manual) Seg Neutrophils # Seg Neutrophils # Man Lymphocytes # (Manual) ABG pH 7.342 L ABG pO2 318.2 H ABG HCO3 14.4 L ABG O2 Saturation 99.5 H ABG Base Excess -9.4 L ABG Hemoglobin Oxyhemoglobin Sodium 157 H Potassium 3.1 L D Chloride 114.0 H Carbon Dioxide 21 L D BUN 72 H Creatinine 3.7 H Glucose 615 H* POC Glucose > 600 H Hemoglobin A1c Lactic Acid Calcium Phosphorus Magnesium AST ALT Ammonia Troponin T C-Reactive Protein Total Protein Albumin Triglycerides LDL Cholesterol Direct HDL Cholesterol Urine Creatinine Urine Total Protein 07/26/22 07/26/22 07/26/22 00:13 00:38 00:39 WBC 21.4 H RBC 5.88 H Hgb 17.2 H Hct 55.0 H MCV MCHC 31 L RDW 16.0 H Plt Count Lymph % (Auto) Lymph # (Auto) [place] # (Auto) Seg Neutrophils % Seg Neuts % (Manual) 77.0 H Lymphocytes % (Manual) 13.0 L Seg Neutrophils # Seg Neutrophils # Man 16.5 H Lymphocytes # (Manual) ABG pH ABG pO2 ABG HCO3 ABG O2 Saturation ABG Base Excess ABG Hemoglobin Oxyhemoglobin Sodium Potassium Chloride Carbon Dioxide BUN Creatinine Glucose POC Glucose 517 H Hemoglobin A1c Lactic Acid 9.10 H* Calcium Phosphorus Magnesium AST ALT Ammonia Troponin T C-Reactive Protein Total Protein Albumin Triglycerides LDL Cholesterol Direct HDL Cholesterol Urine Creatinine Urine Total Protein 07/26/22 07/26/22 07/26/22 00:39 01:32 02:28 WBC RBC Hgb Hct MCV MCHC RDW Plt Count Lymph % (Auto) Lymph # (Auto) [place] # (Auto) Seg Neutrophils % Seg Neuts % (Manual) Lymphocytes % (Manual) Seg Neutrophils # Seg Neutrophils # Man Lymphocytes # (Manual) ABG pH ABG pO2 ABG HCO3 ABG O2 Saturation ABG Base Excess ABG Hemoglobin Oxyhemoglobin Sodium Potassium Chloride Carbon Dioxide BUN Creatinine Glucose POC Glucose 460 H 237 H Hemoglobin A1c Lactic Acid Calcium Phosphorus 1.20 L D Magnesium 4.10 H AST ALT Ammonia Troponin T C-Reactive Protein Total Protein Albumin Triglycerides LDL Cholesterol Direct HDL Cholesterol Urine Creatinine Urine Total Protein 07/26/22 07/26/22 07/26/22 03:03 03:07 04:11 WBC RBC Hgb Hct MCV MCHC RDW Plt Count Lymph % (Auto) Lymph # (Auto) [place] # (Auto) Seg Neutrophils % Seg Neuts % (Manual) Lymphocytes % (Manual) Seg Neutrophils # Seg Neutrophils # Man Lymphocytes # (Manual) ABG pH ABG pO2 ABG HCO3 ABG O2 Saturation ABG Base Excess ABG Hemoglobin Oxyhemoglobin Sodium Potassium Chloride Carbon Dioxide BUN Creatinine Glucose POC Glucose 433 H 370 H 338 H Hemoglobin A1c Lactic Acid Calcium Phosphorus Magnesium AST ALT Ammonia Troponin T C-Reactive Protein Total Protein Albumin Triglycerides LDL Cholesterol Direct HDL Cholesterol Urine Creatinine Urine Total Protein 07/26/22 07/26/22 07/26/22 04:35 04:35 04:40 WBC RBC Hgb Hct MCV MCHC RDW Plt Count Lymph % (Auto) Lymph # (Auto) [place] # (Auto) Seg Neutrophils % Seg Neuts % (Manual) Lymphocytes % (Manual) Seg Neutrophils # Seg Neutrophils # Man Lymphocytes # (Manual) ABG pH 7.301 L ABG pO2 178.2 H ABG HCO3 11.0 L ABG O2 Saturation 99.1 H ABG Base Excess -13.3 L ABG Hemoglobin Oxyhemoglobin Sodium 162 H* Potassium 3.0 L Chloride 124.8 H Carbon Dioxide 18 L BUN 69 H Creatinine 3.9 H Glucose 385 H POC Glucose Hemoglobin A1c Lactic Acid 8.20 H* Calcium 7.8 L Phosphorus Magnesium AST ALT Ammonia Troponin T C-Reactive Protein Total Protein Albumin Triglycerides LDL Cholesterol Direct HDL Cholesterol Urine Creatinine Urine Total Protein 07/26/22 07/26/22 07/26/22 05:01 06:14 06:52 WBC RBC Hgb Hct MCV MCHC RDW Plt Count Lymph % (Auto) Lymph # (Auto) [place] # (Auto) Seg Neutrophils % Seg Neuts % (Manual) Lymphocytes % (Manual) Seg Neutrophils # Seg Neutrophils # Man Lymphocytes # (Manual) ABG pH ABG pO2 ABG HCO3 ABG O2 Saturation ABG Base Excess ABG Hemoglobin Oxyhemoglobin Sodium Potassium Chloride Carbon Dioxide BUN Creatinine Glucose POC Glucose 347 H 300 H 278 H Hemoglobin A1c Lactic Acid Calcium Phosphorus Magnesium AST ALT Ammonia Troponin T C-Reactive Protein Total Protein Albumin Triglycerides LDL Cholesterol Direct HDL Cholesterol Urine Creatinine Urine Total Protein 07/26/22 07/26/22 07/26/22 07:59 08:58 10:04 WBC RBC Hgb Hct MCV MCHC RDW Plt Count Lymph % (Auto) Lymph # (Auto) [place] # (Auto) Seg Neutrophils % Seg Neuts % (Manual) Lymphocytes % (Manual) Seg Neutrophils # Seg Neutrophils # Man Lymphocytes # (Manual) ABG pH ABG pO2 ABG HCO3 ABG O2 Saturation ABG Base Excess ABG Hemoglobin Oxyhemoglobin Sodium Potassium Chloride Carbon Dioxide BUN Creatinine Glucose POC Glucose 269 H 277 H 244 H Hemoglobin A1c Lactic Acid Calcium Phosphorus Magnesium AST ALT Ammonia Troponin T C-Reactive Protein Total Protein Albumin Triglycerides LDL Cholesterol Direct HDL Cholesterol Urine Creatinine Urine Total Protein 07/26/22 07/26/22 07/26/22 11:03 11:53 13:08 WBC RBC Hgb Hct MCV MCHC RDW Plt Count Lymph % (Auto) Lymph # (Auto) [place] # (Auto) Seg Neutrophils % Seg Neuts % (Manual) Lymphocytes % (Manual) Seg Neutrophils # Seg Neutrophils # Man Lymphocytes # (Manual) ABG pH ABG pO2 ABG HCO3 ABG O2 Saturation ABG Base Excess ABG Hemoglobin Oxyhemoglobin Sodium Potassium Chloride Carbon Dioxide BUN Creatinine Glucose POC Glucose 253 H 213 H 194 H Hemoglobin A1c Lactic Acid Calcium Phosphorus Magnesium AST ALT Ammonia Troponin T C-Reactive Protein Total Protein Albumin Triglycerides LDL Cholesterol Direct HDL Cholesterol Urine Creatinine Urine Total Protein 07/26/22 07/26/22 07/26/22 14:24 14:56 14:57 WBC RBC Hgb Hct MCV MCHC RDW Plt Count Lymph % (Auto) Lymph # (Auto) [place] # (Auto) Seg Neutrophils % Seg Neuts % (Manual) Lymphocytes % (Manual) Seg Neutrophils # Seg Neutrophils # Man Lymphocytes # (Manual) ABG pH ABG pO2 ABG HCO3 ABG O2 Saturation ABG Base Excess ABG Hemoglobin Oxyhemoglobin Sodium Potassium Chloride Carbon Dioxide BUN Creatinine Glucose POC Glucose 185 H 236 H 207 H Hemoglobin A1c Lactic Acid Calcium Phosphorus Magnesium AST ALT Ammonia Troponin T C-Reactive Protein Total Protein Albumin Triglycerides LDL Cholesterol Direct HDL Cholesterol Urine Creatinine Urine Total Protein 07/26/22 07/26/22 07/26/22 15:36 15:36 15:36 WBC RBC Hgb Hct MCV MCHC RDW Plt Count Lymph % (Auto) Lymph # (Auto) [place] # (Auto) Seg Neutrophils % Seg Neuts % (Manual) Lymphocytes % (Manual) Seg Neutrophils # Seg Neutrophils # Man Lymphocytes # (Manual) ABG pH ABG pO2 ABG HCO3 ABG O2 Saturation ABG Base Excess ABG Hemoglobin Oxyhemoglobin Sodium 160 H Potassium Chloride 126.2 H Carbon Dioxide 18 L BUN 59 H Creatinine 3.2 H Glucose 227 H POC Glucose Hemoglobin A1c Lactic Acid 9.70 H* Calcium 7.1 L Phosphorus Magnesium AST ALT Ammonia Troponin T 0.049 H D C-Reactive Protein Total Protein Albumin Triglycerides LDL Cholesterol Direct HDL Cholesterol Urine Creatinine Urine Total Protein 07/26/22 07/26/22 07/26/22 15:57 16:32 17:04 WBC RBC Hgb Hct MCV MCHC RDW Plt Count Lymph % (Auto) Lymph # (Auto) [place] # (Auto) Seg Neutrophils % Seg Neuts % (Manual) Lymphocytes % (Manual) Seg Neutrophils # Seg Neutrophils # Man Lymphocytes # (Manual) ABG pH ABG pO2 ABG HCO3 ABG O2 Saturation ABG Base Excess ABG Hemoglobin Oxyhemoglobin Sodium Potassium Chloride Carbon Dioxide BUN Creatinine Glucose POC Glucose 207 H 189 H 219 H Hemoglobin A1c Lactic Acid Calcium Phosphorus Magnesium AST ALT Ammonia Troponin T C-Reactive Protein Total Protein Albumin Triglycerides LDL Cholesterol Direct HDL Cholesterol Urine Creatinine Urine Total Protein 07/26/22 07/26/22 07/26/22 18:00 18:10 18:52 WBC RBC Hgb Hct MCV MCHC RDW Plt Count Lymph % (Auto) Lymph # (Auto) [place] # (Auto) Seg Neutrophils % Seg Neuts % (Manual) Lymphocytes % (Manual) Seg Neutrophils # Seg Neutrophils # Man Lymphocytes # (Manual) ABG pH ABG pO2 ABG HCO3 ABG O2 Saturation ABG Base Excess ABG Hemoglobin Oxyhemoglobin Sodium Potassium Chloride Carbon Dioxide BUN Creatinine Glucose POC Glucose 197 H 194 H Hemoglobin A1c Lactic Acid Calcium Phosphorus Magnesium AST ALT Ammonia Troponin T C-Reactive Protein Total Protein Albumin Triglycerides LDL Cholesterol Direct HDL Cholesterol Urine Creatinine 118.4 H Urine Total Protein 146 H 07/26/22 07/26/22 07/26/22 20:47 21:30 21:51 WBC RBC Hgb Hct MCV MCHC RDW Plt Count Lymph % (Auto) Lymph # (Auto) [place] # (Auto) Seg Neutrophils % Seg Neuts % (Manual) Lymphocytes % (Manual) Seg Neutrophils # Seg Neutrophils # Man Lymphocytes # (Manual) ABG pH ABG pO2 ABG HCO3 ABG O2 Saturation ABG Base Excess ABG Hemoglobin Oxyhemoglobin Sodium 155 H Potassium Chloride 123.5 H Carbon Dioxide 16 L BUN 53 H Creatinine 2.9 H Glucose 185 H POC Glucose 134 H 124 H Hemoglobin A1c Lactic Acid Calcium 7.0 L Phosphorus Magnesium AST ALT Ammonia Troponin T C-Reactive Protein Total Protein Albumin Triglycerides LDL Cholesterol Direct HDL Cholesterol Urine Creatinine Urine Total Protein 07/26/22 07/26/22 07/27/22 22:47 23:52 00:45 WBC RBC Hgb Hct MCV MCHC RDW Plt Count Lymph % (Auto) Lymph # (Auto) [place] # (Auto) Seg Neutrophils % Seg Neuts % (Manual) Lymphocytes % (Manual) Seg Neutrophils # Seg Neutrophils # Man Lymphocytes # (Manual) ABG pH ABG pO2 ABG HCO3 ABG O2 Saturation ABG Base Excess ABG Hemoglobin Oxyhemoglobin Sodium 155 H Potassium Chloride 124.2 H Carbon Dioxide 19 L BUN 53 H Creatinine 2.5 H Glucose 168 H POC Glucose 138 H 150 H Hemoglobin A1c Lactic Acid Calcium 6.7 L Phosphorus Magnesium AST ALT Ammonia Troponin T C-Reactive Protein Total Protein Albumin Triglycerides LDL Cholesterol Direct HDL Cholesterol Urine Creatinine Urine Total Protein 07/27/22 07/27/22 07/27/22 00:58 02:45 03:50 WBC 15.4 H RBC Hgb Hct MCV MCHC RDW 15.3 H Plt Count 60 L Lymph % (Auto) Lymph # (Auto) [place] # (Auto) Seg Neutrophils % Seg Neuts % (Manual) 78.0 H Lymphocytes % (Manual) 3.0 L Seg Neutrophils # Seg Neutrophils # Man 12.0 H Lymphocytes # (Manual) 0.5 L ABG pH ABG pO2 ABG HCO3 ABG O2 Saturation ABG Base Excess ABG Hemoglobin Oxyhemoglobin Sodium Potassium Chloride Carbon Dioxide BUN Creatinine Glucose POC Glucose 153 H 150 H Hemoglobin A1c Lactic Acid Calcium Phosphorus Magnesium AST ALT Ammonia Troponin T C-Reactive Protein Total Protein Albumin Triglycerides LDL Cholesterol Direct HDL Cholesterol Urine Creatinine Urine Total Protein 07/27/22 07/27/22 07/27/22 03:50 03:55 04:57 WBC RBC Hgb Hct MCV MCHC RDW Plt Count Lymph % (Auto) Lymph # (Auto) [place] # (Auto) Seg Neutrophils % Seg Neuts % (Manual) Lymphocytes % (Manual) Seg Neutrophils # Seg Neutrophils # Man Lymphocytes # (Manual) ABG pH ABG pO2 110.1 H ABG HCO3 13.3 L ABG O2 Saturation ABG Base Excess -9.0 L ABG Hemoglobin 13.1 L Oxyhemoglobin Sodium 154 H Potassium Chloride 123.0 H Carbon Dioxide 19 L BUN 55 H Creatinine 2.8 H Glucose 153 H POC Glucose 112 H Hemoglobin A1c Lactic Acid Calcium 6.8 L Phosphorus 1.30 L Magnesium AST 64 H ALT Ammonia Troponin T C-Reactive Protein Total Protein 4.1 L D Albumin 2.1 L Triglycerides LDL Cholesterol Direct HDL Cholesterol Urine Creatinine Urine Total Protein 07/27/22 07/27/22 07/27/22 08:22 09:30 10:49 WBC RBC Hgb Hct MCV MCHC RDW Plt Count Lymph % (Auto) Lymph # (Auto) [place] # (Auto) Seg Neutrophils % Seg Neuts % (Manual) Lymphocytes % (Manual) Seg Neutrophils # Seg Neutrophils # Man Lymphocytes # (Manual) ABG pH ABG pO2 ABG HCO3 ABG O2 Saturation ABG Base Excess ABG Hemoglobin Oxyhemoglobin Sodium Potassium Chloride Carbon Dioxide BUN Creatinine Glucose POC Glucose 146 H 153 H 163 H Hemoglobin A1c Lactic Acid Calcium Phosphorus Magnesium AST ALT Ammonia Troponin T C-Reactive Protein Total Protein Albumin Triglycerides LDL Cholesterol Direct HDL Cholesterol Urine Creatinine Urine Total Protein 07/27/22 07/27/22 07/27/22 12:13 12:44 17:17 WBC RBC Hgb Hct MCV MCHC RDW Plt Count Lymph % (Auto) Lymph # (Auto) [place] # (Auto) Seg Neutrophils % Seg Neuts % (Manual) Lymphocytes % (Manual) Seg Neutrophils # Seg Neutrophils # Man Lymphocytes # (Manual) ABG pH ABG pO2 ABG HCO3 ABG O2 Saturation ABG Base Excess ABG Hemoglobin Oxyhemoglobin Sodium Potassium Chloride Carbon Dioxide BUN Creatinine Glucose POC Glucose 190 H 287 H Hemoglobin A1c 12.3 H Lactic Acid Calcium Phosphorus Magnesium AST ALT Ammonia Troponin T C-Reactive Protein Total Protein Albumin Triglycerides LDL Cholesterol Direct HDL Cholesterol Urine Creatinine Urine Total Protein 07/28/22 07/28/22 07/28/22 00:22 03:58 04:05 WBC RBC Hgb Hct MCV MCHC RDW Plt Count Lymph % (Auto) Lymph # (Auto) [place] # (Auto) Seg Neutrophils % Seg Neuts % (Manual) Lymphocytes % (Manual) Seg Neutrophils # Seg Neutrophils # Man Lymphocytes # (Manual) ABG pH ABG pO2 171.2 H ABG HCO3 12.3 L ABG O2 Saturation 99.2 H ABG Base Excess -9.7 L ABG Hemoglobin 10.9 L Oxyhemoglobin Sodium 148 H Potassium Chloride 117.0 H Carbon Dioxide 16 L BUN 74 H Creatinine 3.2 H Glucose 471 H POC Glucose 379 H Hemoglobin A1c Lactic Acid Calcium 6.2 L Phosphorus Magnesium AST ALT Ammonia Troponin T C-Reactive Protein Total Protein Albumin Triglycerides LDL Cholesterol Direct HDL Cholesterol Urine Creatinine Urine Total Protein 07/28/22 07/28/22 07/28/22 04:05 05:36 12:50 WBC 13.9 H RBC Hgb 11.2 L Hct MCV MCHC 31 L RDW 15.9 H Plt Count 48 L Lymph % (Auto) Lymph # (Auto) [place] # (Auto) Seg Neutrophils % Seg Neuts % (Manual) Lymphocytes % (Manual) Seg Neutrophils # Seg Neutrophils # Man Lymphocytes # (Manual) ABG pH ABG pO2 ABG HCO3 ABG O2 Saturation ABG Base Excess ABG Hemoglobin Oxyhemoglobin Sodium Potassium Chloride Carbon Dioxide BUN Creatinine Glucose POC Glucose 390 H 399 H Hemoglobin A1c Lactic Acid Calcium Phosphorus Magnesium AST ALT Ammonia Troponin T C-Reactive Protein Total Protein Albumin Triglycerides LDL Cholesterol Direct HDL Cholesterol Urine Creatinine Urine Total Protein 07/28/22 07/28/22 07/28/22 17:27 18:16 23:31 WBC RBC Hgb Hct MCV MCHC RDW Plt Count Lymph % (Auto) Lymph # (Auto) [place] # (Auto) Seg Neutrophils % Seg Neuts % (Manual) Lymphocytes % (Manual) Seg Neutrophils # Seg Neutrophils # Man Lymphocytes # (Manual) ABG pH ABG pO2 ABG HCO3 ABG O2 Saturation ABG Base Excess ABG Hemoglobin Oxyhemoglobin Sodium Potassium Chloride Carbon Dioxide BUN Creatinine Glucose POC Glucose 434 H 331 H Hemoglobin A1c Lactic Acid Calcium Phosphorus 2.00 L D Magnesium AST ALT Ammonia Troponin T C-Reactive Protein Total Protein Albumin Triglycerides LDL Cholesterol Direct HDL Cholesterol Urine Creatinine Urine Total Protein 07/29/22 07/29/22 07/29/22 04:47 05:30 06:10 WBC RBC Hgb Hct MCV MCHC RDW Plt Count Lymph % (Auto) Lymph # (Auto) [place] # (Auto) Seg Neutrophils % Seg Neuts % (Manual) Lymphocytes % (Manual) Seg Neutrophils # Seg Neutrophils # Man Lymphocytes # (Manual) ABG pH 7.498 H ABG pO2 166.4 H ABG HCO3 16.2 L ABG O2 Saturation 99.1 H ABG Base Excess -5.4 L ABG Hemoglobin 10.7 L Oxyhemoglobin Sodium 151 H Potassium 3.5 L D Chloride 120.4 H Carbon Dioxide 17 L BUN 80 H Creatinine 2.8 H Glucose 303 H POC Glucose 261 H Hemoglobin A1c Lactic Acid Calcium 6.9 L Phosphorus Magnesium AST ALT Ammonia Troponin T C-Reactive Protein Total Protein Albumin Triglycerides LDL Cholesterol Direct HDL Cholesterol Urine Creatinine Urine Total Protein 07/29/22 07/29/22 07/29/22 09:18 12:31 13:40 WBC 16.0 H RBC Hgb Hct MCV 96 H MCHC 30 L RDW 17.6 H Plt Count 84 L Lymph % (Auto) Lymph # (Auto) [place] # (Auto) Seg Neutrophils % Seg Neuts % (Manual) Lymphocytes % (Manual) Seg Neutrophils # Seg Neutrophils # Man Lymphocytes # (Manual) ABG pH ABG pO2 ABG HCO3 ABG O2 Saturation ABG Base Excess ABG Hemoglobin Oxyhemoglobin Sodium Potassium Chloride Carbon Dioxide BUN Creatinine Glucose POC Glucose 287 H 291 H Hemoglobin A1c Lactic Acid Calcium Phosphorus Magnesium AST ALT Ammonia Troponin T C-Reactive Protein Total Protein Albumin Triglycerides LDL Cholesterol Direct HDL Cholesterol Urine Creatinine Urine Total Protein 07/29/22 07/29/22 07/30/22 17:19 23:57 04:25 WBC RBC Hgb Hct MCV MCHC RDW Plt Count Lymph % (Auto) Lymph # (Auto) [place] # (Auto) Seg Neutrophils % Seg Neuts % (Manual) Lymphocytes % (Manual) Seg Neutrophils # Seg Neutrophils # Man Lymphocytes # (Manual) ABG pH 7.461 H ABG pO2 123.0 H ABG HCO3 18.6 L ABG O2 Saturation ABG Base Excess -4.1 L ABG Hemoglobin 10.8 L Oxyhemoglobin Sodium Potassium Chloride Carbon Dioxide BUN Creatinine Glucose POC Glucose 272 H 205 H Hemoglobin A1c Lactic Acid Calcium Phosphorus Magnesium AST ALT Ammonia Troponin T C-Reactive Protein Total Protein Albumin Triglycerides LDL Cholesterol Direct HDL Cholesterol Urine Creatinine Urine Total Protein 07/30/22 07/30/22 07/30/22 04:42 04:42 05:17 WBC RBC Hgb 11.1 L Hct 33.1 L D MCV MCHC RDW 16.0 H Plt Count 34 L Lymph % (Auto) Lymph # (Auto) [place] # (Auto) Seg Neutrophils % Seg Neuts % (Manual) Lymphocytes % (Manual) Seg Neutrophils # Seg Neutrophils # Man Lymphocytes # (Manual) ABG pH ABG pO2 ABG HCO3 ABG O2 Saturation ABG Base Excess ABG Hemoglobin Oxyhemoglobin Sodium 148 H Potassium 3.2 L Chloride 116.7 H Carbon Dioxide 18 L BUN 69 H Creatinine 2.0 H Glucose 197 H POC Glucose 185 H Hemoglobin A1c Lactic Acid Calcium 6.8 L Phosphorus 1.70 L Magnesium AST ALT Ammonia Troponin T C-Reactive Protein Total Protein Albumin Triglycerides LDL Cholesterol Direct HDL Cholesterol Urine Creatinine Urine Total Protein 07/30/22 07/30/22 07/30/22 11:41 16:14 23:07 WBC RBC Hgb Hct MCV MCHC RDW Plt Count Lymph % (Auto) Lymph # (Auto) [place] # (Auto) Seg Neutrophils % Seg Neuts % (Manual) Lymphocytes % (Manual) Seg Neutrophils # Seg Neutrophils # Man Lymphocytes # (Manual) ABG pH ABG pO2 ABG HCO3 ABG O2 Saturation ABG Base Excess ABG Hemoglobin Oxyhemoglobin Sodium Potassium Chloride Carbon Dioxide BUN Creatinine Glucose POC Glucose 199 H 173 H 159 H Hemoglobin A1c Lactic Acid Calcium Phosphorus Magnesium AST ALT Ammonia Troponin T C-Reactive Protein Total Protein Albumin Triglycerides LDL Cholesterol Direct HDL Cholesterol Urine Creatinine Urine Total Protein 07/31/22 07/31/22 07/31/22 03:25 04:00 04:13 WBC RBC Hgb 10.5 L Hct 32.8 L MCV MCHC RDW 15.3 H Plt Count 55 L Lymph % (Auto) Lymph # (Auto) [place] # (Auto) Seg Neutrophils % Seg Neuts % (Manual) Lymphocytes % (Manual) Seg Neutrophils # Seg Neutrophils # Man Lymphocytes # (Manual) ABG pH 7.513 H ABG pO2 64.1 L ABG HCO3 ABG O2 Saturation ABG Base Excess ABG Hemoglobin 10.5 L Oxyhemoglobin 93.8 L Sodium 146 H Potassium 3.4 L Chloride 112.5 H Carbon Dioxide 21 L BUN 53 H Creatinine 1.6 H Glucose 151 H POC Glucose Hemoglobin A1c Lactic Acid Calcium 6.4 L Phosphorus Magnesium AST ALT Ammonia Troponin T C-Reactive Protein Total Protein Albumin Triglycerides LDL Cholesterol Direct HDL Cholesterol Urine Creatinine Urine Total Protein 07/31/22 07/31/22 07/31/22 05:39 11:08 16:11 WBC RBC Hgb Hct MCV MCHC RDW Plt Count Lymph % (Auto) Lymph # (Auto) [place] # (Auto) Seg Neutrophils % Seg Neuts % (Manual) Lymphocytes % (Manual) Seg Neutrophils # Seg Neutrophils # Man Lymphocytes # (Manual) ABG pH ABG pO2 ABG HCO3 ABG O2 Saturation ABG Base Excess ABG Hemoglobin Oxyhemoglobin Sodium Potassium Chloride Carbon Dioxide BUN Creatinine Glucose POC Glucose 155 H 132 H 150 H Hemoglobin A1c Lactic Acid Calcium Phosphorus Magnesium AST ALT Ammonia Troponin T C-Reactive Protein Total Protein Albumin Triglycerides LDL Cholesterol Direct HDL Cholesterol Urine Creatinine Urine Total Protein 07/31/22 08/01/22 08/01/22 23:48 04:17 04:17 WBC RBC 3.62 L Hgb 10.6 L Hct 31.8 L MCV MCHC RDW 15.7 H Plt Count 90 L Lymph % (Auto) Lymph # (Auto) [place] # (Auto) Seg Neutrophils % Seg Neuts % (Manual) Lymphocytes % (Manual) Seg Neutrophils # Seg Neutrophils # Man Lymphocytes # (Manual) ABG pH ABG pO2 ABG HCO3 ABG O2 Saturation ABG Base Excess ABG Hemoglobin Oxyhemoglobin Sodium 147 H Potassium 3.3 L Chloride 113.7 H Carbon Dioxide BUN 46 H Creatinine Glucose 141 H POC Glucose 133 H Hemoglobin A1c Lactic Acid Calcium 6.0 L Phosphorus 2.00 L Magnesium 1.50 L AST ALT Ammonia Troponin T C-Reactive Protein Total Protein Albumin Triglycerides LDL Cholesterol Direct HDL Cholesterol Urine Creatinine Urine Total Protein 08/01/22 08/01/2208/01/22 05:46 11:17 17:44 WBC RBC Hgb Hct MCV MCHC RDW Plt Count Lymph % (Auto) Lymph # (Auto) [place] # (Auto) Seg Neutrophils % Seg Neuts % (Manual) Lymphocytes % (Manual) Seg Neutrophils # Seg Neutrophils # Man Lymphocytes # (Manual) ABG pH ABG pO2 ABG HCO3 ABG O2 Saturation ABG Base Excess ABG Hemoglobin Oxyhemoglobin Sodium Potassium Chloride Carbon Dioxide BUN Creatinine Glucose POC Glucose 116 H 190 H 179 H Hemoglobin A1c Lactic Acid Calcium Phosphorus Magnesium AST ALT Ammonia Troponin T C-Reactive Protein Total Protein Albumin Triglycerides LDL Cholesterol Direct HDL Cholesterol Urine Creatinine Urine Total Protein 08/01/22 08/02/22 08/02/22 23:34 04:48 04:48 WBC RBC 3.61 L Hgb 10.2 L Hct 31.9 L MCV MCHC RDW 15.8 H Plt Count 130 L Lymph % (Auto) Lymph # (Auto) [place] # (Auto) Seg Neutrophils % Seg Neuts % (Manual) Lymphocytes % (Manual) Seg Neutrophils # Seg Neutrophils # Man Lymphocytes # (Manual) ABG pH ABG pO2 ABG HCO3 ABG O2 Saturation ABG Base Excess ABG Hemoglobin Oxyhemoglobin Sodium 148 H Potassium 3.4 L Chloride 113.1 H Carbon Dioxide 16 L BUN 45 H Creatinine Glucose 213 H POC Glucose 193 H Hemoglobin A1c Lactic Acid Calcium 5.9 L* Phosphorus 2.30 L Magnesium AST ALT Ammonia Troponin T C-Reactive Protein Total Protein Albumin Triglycerides LDL Cholesterol Direct HDL Cholesterol Urine Creatinine Urine Total Protein 08/02/22 08/02/22 08/02/22 05:38 23:04 23:30 WBC RBC Hgb Hct MCV MCHC RDW Plt Count Lymph % (Auto) Lymph # (Auto) [place] # (Auto) Seg Neutrophils % Seg Neuts % (Manual) Lymphocytes % (Manual) Seg Neutrophils # Seg Neutrophils # Man Lymphocytes # (Manual) ABG pH ABG pO2 ABG HCO3 ABG O2 Saturation ABG Base Excess ABG Hemoglobin Oxyhemoglobin Sodium Potassium Chloride Carbon Dioxide BUN Creatinine Glucose POC Glucose 193 H 65 L 111 H Hemoglobin A1c Lactic Acid Calcium Phosphorus Magnesium AST ALT Ammonia Troponin T C-Reactive Protein Total Protein Albumin Triglycerides LDL Cholesterol Direct HDL Cholesterol Urine Creatinine Urine Total Protein 08/03/22 08/03/22 08/03/22 03:35 04:40 04:40 WBC 12.7 H RBC 3.36 L Hgb 9.5 L Hct 29.8 L MCV MCHC RDW 15.7 H Plt Count Lymph % (Auto) Lymph # (Auto) [place] # (Auto) Seg Neutrophils % Seg Neuts % (Manual) Lymphocytes % (Manual) Seg Neutrophils # Seg Neutrophils # Man Lymphocytes # (Manual) ABG pH 7.500 H ABG pO2 129.6 H ABG HCO3 ABG O2 Saturation ABG Base Excess ABG Hemoglobin 9.7 L Oxyhemoglobin Sodium Potassium 3.3 L Chloride 107.9 H Carbon Dioxide 21 L BUN 37 H Creatinine Glucose 111 H POC Glucose Hemoglobin A1c Lactic Acid Calcium 5.5 L* Phosphorus Magnesium 1.60 L AST ALT Ammonia Troponin T C-Reactive Protein Total Protein Albumin Triglycerides LDL Cholesterol Direct HDL Cholesterol Urine Creatinine Urine Total Protein 08/03/22 08/03/22 08/04/22 05:24 17:18 00:17 WBC RBC Hgb Hct MCV MCHC RDW Plt Count Lymph % (Auto) Lymph # (Auto) [place] # (Auto) Seg Neutrophils % Seg Neuts % (Manual) Lymphocytes % (Manual) Seg Neutrophils # Seg Neutrophils # Man Lymphocytes # (Manual) ABG pH ABG pO2 ABG HCO3 ABG O2 Saturation ABG Base Excess ABG Hemoglobin Oxyhemoglobin Sodium Potassium Chloride Carbon Dioxide BUN Creatinine Glucose POC Glucose 115 H 111 H 64 L Hemoglobin A1c Lactic Acid Calcium Phosphorus Magnesium AST ALT Ammonia Troponin T C-Reactive Protein Total Protein Albumin Triglycerides LDL Cholesterol Direct HDL Cholesterol Urine Creatinine Urine Total Protein 08/04/22 08/04/22 08/04/22 04:39 04:39 05:36 WBC 14.2 H RBC 3.61 L Hgb 10.3 L Hct 31.2 L MCV MCHC RDW 15.4 H Plt Count Lymph % (Auto) Lymph # (Auto) [place] # (Auto) Seg Neutrophils % Seg Neuts % (Manual) Lymphocytes % (Manual) Seg Neutrophils # Seg Neutrophils # Man Lymphocytes # (Manual) ABG pH ABG pO2 ABG HCO3 ABG O2 Saturation ABG Base Excess ABG Hemoglobin Oxyhemoglobin Sodium Potassium 3.1 L Chloride Carbon Dioxide 18 L BUN 30 H Creatinine Glucose 68 L POC Glucose 68 L Hemoglobin A1c Lactic Acid Calcium 6.1 L Phosphorus 2.00 L D Magnesium AST ALT Ammonia Troponin T C-Reactive Protein Total Protein Albumin Triglycerides LDL Cholesterol Direct HDL Cholesterol Urine Creatinine Urine Total Protein 08/04/22 08/04/22 08/04/22 06:32 11:37 17:53 WBC RBC Hgb Hct MCV MCHC RDW Plt Count Lymph % (Auto) Lymph # (Auto) [place] # (Auto) Seg Neutrophils % Seg Neuts % (Manual) Lymphocytes % (Manual) Seg Neutrophils # Seg Neutrophils # Man Lymphocytes # (Manual) ABG pH ABG pO2 ABG HCO3 ABG O2 Saturation ABG Base Excess ABG Hemoglobin Oxyhemoglobin Sodium Potassium Chloride Carbon Dioxide BUN Creatinine Glucose POC Glucose 110 H 118 H 171 H Hemoglobin A1c Lactic Acid Calcium Phosphorus Magnesium AST ALT Ammonia Troponin T C-Reactive Protein Total Protein Albumin Triglycerides LDL Cholesterol Direct HDL Cholesterol Urine Creatinine Urine Total Protein 08/04/22 08/04/22 08/05/22 23:41 23:43 04:46 WBC 12.5 H RBC Hgb 10.8 L Hct 33.3 L MCV MCHC RDW 15.8 H Plt Count 138 L Lymph % (Auto) Lymph # (Auto) [place] # (Auto) Seg Neutrophils % Seg Neuts % (Manual) Lymphocytes % (Manual) Seg Neutrophils # Seg Neutrophils # Man Lymphocytes # (Manual) ABG pH ABG pO2 ABG HCO3 ABG O2 Saturation ABG Base Excess ABG Hemoglobin Oxyhemoglobin Sodium Potassium Chloride Carbon Dioxide BUN Creatinine Glucose POC Glucose 226 H 218 H Hemoglobin A1c Lactic Acid Calcium Phosphorus Magnesium AST ALT Ammonia Troponin T C-Reactive Protein Total Protein Albumin Triglycerides LDL Cholesterol Direct HDL Cholesterol Urine Creatinine Urine Total Protein 08/05/22 08/05/22 08/05/22 04:46 06:05 11:42 WBC RBC Hgb Hct MCV MCHC RDW Plt Count Lymph % (Auto) Lymph # (Auto) [place] # (Auto) Seg Neutrophils % Seg Neuts % (Manual) Lymphocytes % (Manual) Seg Neutrophils # Seg Neutrophils # Man Lymphocytes # (Manual) ABG pH ABG pO2 ABG HCO3 ABG O2 Saturation ABG Base Excess ABG Hemoglobin Oxyhemoglobin Sodium Potassium Chloride Carbon Dioxide 16 L BUN 29 H Creatinine Glucose 179 H POC Glucose 220 H 180 H Hemoglobin A1c Lactic Acid Calcium 6.1 L Phosphorus Magnesium AST ALT Ammonia Troponin T C-Reactive Protein Total Protein Albumin Triglycerides LDL Cholesterol Direct HDL Cholesterol Urine Creatinine Urine Total Protein 08/05/22 08/05/22 08/05/22 17:39 21:10 21:43 WBC RBC Hgb Hct MCV MCHC RDW Plt Count Lymph % (Auto) Lymph # (Auto) [place] # (Auto) Seg Neutrophils % Seg Neuts % (Manual) Lymphocytes % (Manual) Seg Neutrophils # Seg Neutrophils # Man Lymphocytes # (Manual) ABG pH ABG pO2 ABG HCO3 ABG O2 Saturation ABG Base Excess ABG Hemoglobin Oxyhemoglobin Sodium Potassium Chloride Carbon Dioxide BUN Creatinine Glucose POC Glucose 207 H 185 H Hemoglobin A1c Lactic Acid Calcium Phosphorus Magnesium AST ALT Ammonia Troponin T C-Reactive Protein 21.50 H Total Protein Albumin Triglycerides LDL Cholesterol Direct HDL Cholesterol Urine Creatinine Urine Total Protein 08/05/22 08/06/22 08/06/22 23:38 05:13 05:20 WBC RBC 3.32 L Hgb 9.4 L Hct 29.4 L MCV MCHC RDW 15.6 H Plt Count Lymph % (Auto) Lymph # (Auto) [place] # (Auto) Seg Neutrophils % Seg Neuts % (Manual) Lymphocytes % (Manual) Seg Neutrophils # Seg Neutrophils # Man Lymphocytes # (Manual) ABG pH ABG pO2 ABG HCO3 ABG O2 Saturation ABG Base Excess ABG Hemoglobin Oxyhemoglobin Sodium Potassium Chloride Carbon Dioxide BUN Creatinine Glucose POC Glucose 198 H 182 H Hemoglobin A1c Lactic Acid Calcium Phosphorus Magnesium AST ALT Ammonia Troponin T C-Reactive Protein Total Protein Albumin Triglycerides LDL Cholesterol Direct HDL Cholesterol Urine Creatinine Urine Total Protein 08/06/22 08/06/22 08/06/22 05:20 11:25 16:13 WBC RBC Hgb Hct MCV MCHC RDW Plt Count Lymph % (Auto) Lymph # (Auto) [place] # (Auto) Seg Neutrophils % Seg Neuts % (Manual) Lymphocytes % (Manual) Seg Neutrophils # Seg Neutrophils # Man Lymphocytes # (Manual) ABG pH ABG pO2 ABG HCO3 ABG O2 Saturation ABG Base Excess ABG Hemoglobin Oxyhemoglobin Sodium Potassium Chloride 107.2 H Carbon Dioxide 21 L BUN 25 H Creatinine Glucose 176 H POC Glucose 155 H 176 H Hemoglobin A1c Lactic Acid Calcium 6.1 L Phosphorus 1.80 L D Magnesium 1.60 L AST ALT Ammonia Troponin T C-Reactive Protein Total Protein Albumin Triglycerides LDL Cholesterol Direct HDL Cholesterol Urine Creatinine Urine Total Protein 08/06/22 08/06/22 08/07/22 21:34 23:22 00:02 WBC RBC 2.98 L Hgb 8.4 L Hct 26.2 L MCV MCHC RDW 15.5 H Plt Count Lymph % (Auto) 11.3 L Lymph # (Auto) 0.9 L [place] # (Auto) Seg Neutrophils % 81.9 H Seg Neuts % (Manual) Lymphocytes % (Manual) Seg Neutrophils # Seg Neutrophils # Man Lymphocytes # (Manual) ABG pH ABG pO2 ABG HCO3 ABG O2 Saturation ABG Base Excess ABG Hemoglobin Oxyhemoglobin Sodium Potassium Chloride Carbon Dioxide BUN Creatinine Glucose POC Glucose 206 H 188 H Hemoglobin A1c Lactic Acid Calcium Phosphorus Magnesium AST ALT Ammonia Troponin T C-Reactive Protein Total Protein Albumin Triglycerides LDL Cholesterol Direct HDL Cholesterol Urine Creatinine Urine Total Protein 08/07/22 08/07/22 08/07/22 04:16 04:16 04:49 WBC RBC 3.12 L Hgb 8.8 L Hct 27.4 L MCV MCHC RDW 15.4 H Plt Count Lymph % (Auto) 10.6 L Lymph # (Auto) 0.9 L [place] # (Auto) Seg Neutrophils % 83.1 H Seg Neuts % (Manual) Lymphocytes % (Manual) Seg Neutrophils # Seg Neutrophils # Man Lymphocytes # (Manual) ABG pH ABG pO2 ABG HCO3 ABG O2 Saturation ABG Base Excess ABG Hemoglobin Oxyhemoglobin Sodium Potassium 3.4 L Chloride 107.8 H Carbon Dioxide BUN 21 H Creatinine Glucose 216 H POC Glucose 192 H Hemoglobin A1c Lactic Acid Calcium 6.1 L Phosphorus 2.00 L Magnesium AST 76 H ALT Ammonia Troponin T C-Reactive Protein Total Protein 5.1 L Albumin 1.8 L Triglycerides LDL Cholesterol Direct HDL Cholesterol Urine Creatinine Urine Total Protein 08/07/22 08/07/22 08/07/22 11:28 16:15 22:16 WBC RBC Hgb Hct MCV MCHC RDW Plt Count Lymph % (Auto) Lymph # (Auto) [place] # (Auto) Seg Neutrophils % Seg Neuts % (Manual) Lymphocytes % (Manual) Seg Neutrophils # Seg Neutrophils # Man Lymphocytes # (Manual) ABG pH ABG pO2 ABG HCO3 ABG O2 Saturation ABG Base Excess ABG Hemoglobin Oxyhemoglobin Sodium Potassium Chloride Carbon Dioxide BUN Creatinine Glucose POC Glucose 204 H 203 H 175 H Hemoglobin A1c Lactic Acid Calcium Phosphorus Magnesium AST ALT Ammonia Troponin T C-Reactive Protein Total Protein Albumin Triglycerides LDL Cholesterol Direct HDL Cholesterol Urine Creatinine Urine Total Protein 08/08/22 08/08/22 08/08/22 00:01 04:46 04:46 WBC RBC 3.16 L Hgb 8.9 L Hct 27.4 L MCV MCHC RDW 15.5 H Plt Count Lymph % (Auto) Lymph # (Auto) [place] # (Auto) Seg Neutrophils % Seg Neuts % (Manual) Lymphocytes % (Manual) Seg Neutrophils # Seg Neutrophils # Man Lymphocytes # (Manual) ABG pH ABG pO2 ABG HCO3 ABG O2 Saturation ABG Base Excess ABG Hemoglobin Oxyhemoglobin Sodium Potassium Chloride Carbon Dioxide BUN Creatinine Glucose 200 H POC Glucose 183 H Hemoglobin A1c Lactic Acid Calcium 6.3 L Phosphorus Magnesium AST 81 H ALT Ammonia Troponin T C-Reactive Protein Total Protein 5.1 L Albumin 1.7 L Triglycerides LDL Cholesterol Direct HDL Cholesterol Urine Creatinine Urine Total Protein 08/08/22 08/08/22 08/08/22 06:14 11:27 16:41 WBC RBC Hgb Hct MCV MCHC RDW Plt Count Lymph % (Auto) Lymph # (Auto) [place] # (Auto) Seg Neutrophils % Seg Neuts % (Manual) Lymphocytes % (Manual) Seg Neutrophils # Seg Neutrophils # Man Lymphocytes # (Manual) ABG pH ABG pO2 ABG HCO3 ABG O2 Saturation ABG Base Excess ABG Hemoglobin Oxyhemoglobin Sodium Potassium Chloride Carbon Dioxide BUN Creatinine Glucose POC Glucose 206 H 196 H 199 H Hemoglobin A1c Lactic Acid Calcium Phosphorus Magnesium AST ALT Ammonia Troponin T C-Reactive Protein Total Protein Albumin Triglycerides LDL Cholesterol Direct HDL Cholesterol Urine Creatinine Urine Total Protein 08/08/22 08/08/22 08/09/22 22:50 23:52 04:53 WBC RBC 3.00 L Hgb 8.4 L Hct 26.4 L MCV MCHC RDW 15.7 H Plt Count Lymph % (Auto) Lymph # (Auto) [place] # (Auto) Seg Neutrophils % Seg Neuts % (Manual) Lymphocytes % (Manual) Seg Neutrophils # Seg Neutrophils # Man Lymphocytes # (Manual) ABG pH ABG pO2 ABG HCO3 ABG O2 Saturation ABG Base Excess ABG Hemoglobin Oxyhemoglobin Sodium Potassium Chloride Carbon Dioxide BUN Creatinine Glucose POC Glucose 198 H 226 H Hemoglobin A1c Lactic Acid Calcium Phosphorus Magnesium AST ALT Ammonia Troponin T C-Reactive Protein Total Protein Albumin Triglycerides LDL Cholesterol Direct HDL Cholesterol Urine Creatinine Urine Total Protein 08/09/22 08/09/22 08/09/22 04:53 05:38 11:29 WBC RBC Hgb Hct MCV MCHC RDW Plt Count Lymph % (Auto) Lymph # (Auto) [place] # (Auto) Seg Neutrophils % Seg Neuts % (Manual) Lymphocytes % (Manual) Seg Neutrophils # Seg Neutrophils # Man Lymphocytes # (Manual) ABG pH ABG pO2 ABG HCO3 ABG O2 Saturation ABG Base Excess ABG Hemoglobin Oxyhemoglobin Sodium Potassium 3.5 L Chloride Carbon Dioxide BUN Creatinine Glucose 181 H POC Glucose 160 H 174 H Hemoglobin A1c Lactic Acid Calcium 6.2 L Phosphorus Magnesium AST ALT Ammonia Troponin T C-Reactive Protein Total Protein Albumin Triglycerides LDL Cholesterol Direct HDL Cholesterol Urine Creatinine Urine Total Protein
--- NOTE | 2022-08-09 15:38 | Event Note ---
Date: 08/09/22 Full consult dictated - rectal bleeding overnight, none today - h/h stable - no plans to scope at this time - will shabnam
[2022-08-09 17:12] LABS: Hematocrit 27.6 % (35.5-45.6); Hemoglobin 8.7 gm/dl (11.8-15.2)
--- NOTE | 2022-08-09 18:37 | Progress Note ---
Assessment and Plan Assessment and plan: Assessment/ Plan This is a 77-year-old male with DM, paroxysmal atrial fibrillation, HTN, CVA (2020) admitted s/p cardiac arrest with acute hypoxic respiratory failure and DKA Neuro: Acute metabolic encephalopathy, hepatic encephalopathy, ALEC ,subclinical status epilepticus ruled out, h/o CVA (2019) -Sluggish pupils, no cough/gag, periodic spontaneous respiration -Neurology consulted, appreciate recommendations -Initial CT head with no acute abnormality -EEG is Likely compatible with diffuse encephalopathy -Per neurology aim for euglycemia and permissive hypertension for now -Ammonia 64 -MRI brain shows diffuse diffusion abnormality involving cerebral and cerebellum compatible with diffuse hypoxia given the patient's history, interval evolving 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 Cardiac: S/p cardiac arrest, A. fib RVR, h/o hypertension, paroxysmal atrial fibrillation, hyperlipidemia -Patient suffered cardiac arrest on 07/25 in the ED and then was noted to be in A. fib with RVR -Amiodarone PO -Cardiology consulted, appreciate recommendations -Blood pressure monitoring per protocol -S/p vasopressor support with Levophed and vasopressin -MAP goal greater than 65 -Echocardiogram shows EF 50 to 60%, no pericardial effusion -Lipitor Respiratory: Acute hypoxic respiratory failure -CCM consulted, appreciate recommendations -Intubated on 07/25 with a 8.00 ETT in the ED -08/02 s/p trach and peg exchange -A.m. vent settings: CPAP 10/24 -See RT notes for titration -A.m. ABG and CXR noted -VAP bundle -SPO2 monitoring GI: Protein calorie malnutrition, GIB -GI consulted, appreciate recommendation -NTR consult for tube feeding -08/02 peg exchange -PPI : Acute kidney injury likely secondary to vasomotor nephropathy (resolved), hypokalemia, hypophosphatemia -S/p 5 L LR bolus -Nephrology consulted, appreciate recommendations -Serum creatinine 03/08/2020 was 1.3 -Monitor intake and output -Renally dose medications -Avoid nephrotoxic medications -FeNa 1.8% -FWF -Renal ultrasound noted -Trend BMP ID: Sepsis, Klebsiella pneumonia -Hypotension, acute kidney injury, acute respiratory failure, lactic acidosis -Antibiotic therapy merrem -MRSA PCR negative -vancomycin dc -s/p solu-cortef -f/u blood culture -Monitor WBC and temperature curve Endo: s/p DKA, h/o DM -Presented with anion gap of 21, glucose of 761, VBG 7.362 -s/p Insulin drip -Accu-Cheks q6hr -SSI -Long-acting insulin, titrate as needed -Hemaglobin A1C 12.3 Heme: NAD -HIT negative -Trend CBC -Transfuse hemoglobin less than 7 -SCDs to BLE while in bed The high probability of a clinically significant, sudden or life threatening deterioration of the [multi] system(s) required my full and direct attention, intervention and personal management. The aggregate critical care time was [60] minutes. This time is in addition to time spent performing reported procedures but includes the following: [x] Data Review and interpretation [x] Patient assessment and monitoring of vital signs [x] Documentation [x] Medication orders and management Disposition Plan: icu Total Time Spent with Patient (Minutes): 60 History Interval history: This is a 77-year-old male who is detention patient at [facility] with DM, paroxysmal atrial fibrillation, HTN, CVA (2020) presents the emergency department on 07/26 via EMS with hypoglycemia and unresponsiveness. In the emergency department patient was deciding 7% on room air and was placed on nonrebreather but sats have increased to greater than 81% and the patient was obtunded therefore ED physician decided to intubate the patient. Per documentation after intubation patient went into PEA arrest and ACLS was initiated and ROSC was achieved after approximately 13 minutes. Work-up in the emergency department revealed leukocytosis, hyponatremia 155, elevated BUN/creatinine at 3.5/74, anion gap metabolic acidosis and hyperglycemia 734. Patient was admitted to the hospital service with consults to cardiology, CCM and nephrology on DKA protocol on mechanical ventilation. Hospital course to date: 07/26: Patient is on any sedation, very sluggish pupillary response, no cough/gag noted, no seizure activity. Neurology recs repeat CT head without contrast or MRI brain without contrast when clinically stable. Patient also had a EEG completed today. Patient is currently maxed on Levophed and vasopressin. Given several LR boluses today. Antibiotics broadened and stress dose steroids added. 07/27: Weaning pressors, phosphorus repleted, SSI and long-acting insulin initiated, tube feeding initiated. Patient now has a hypoactive cough/gag. CT head pending. LR bolus. Thrombocytopenia noted. Cardiology would like to start heparin drip due to atrial fibrillation however would like neurology input prior to. 07/28: Patient remains off of vasopressors, patient had MRI today. Worsening renal function noted. Cardiology will hold off amiodarone due to thrombocytopenia. No acute events reported overnight. 07/29: I had an extensive conversation with son and at bedside to with the help of an paper core machine operator through the fly raiser lockstitch line. Explained thoroughly of presentation to the ED from documentation, cardiac arrest, CT head and MRI brain findings. They are still electing to continue aggressive care and would like hospital assistance with getting a visa for youngest son to come to the [facility] from [place]. senior construction manager is aware of request. Steroid taper started. CBC pending. Will be repleted. Hypernatremia improving. 07/30: LR bolus, renal function is improved, thrombocytopenia worse. Likely consult surgery for trach/peg as per family requests to continue care. No acute events overnight. 07/31: Patient's mentation is unchanged. Remains on low vent setting. D/w [facility] general surgery consulted for possible trach and PEG. Renal function is improving, still hypenatremic, continue FWF per Nephrology. K repleted, continue to - Monitor and replace electrolytes as needed. Patient remains in SR on the monitor, VSS. Amiodarone gtt transitioned to PO amio per Cardio. 08/01: Condition unchanged, remains stable on low vent setting. Renal function continue to improve with persistent hypernatremia, continue FWF per Nephro. Gen eral Surgery recommendations noted. D/w General surgery, plan for possible trach and PEG exchange tomorrow or . 08/02: Remains stable on low vent settings. NPO since after midnight for possible trach/PEG today by General Surgery. Patient remains hypernatremic and due to NPO status, FWF was held. Will initiated low dose D5W gtt for now. And also to prevent hypoglycemia while NPO, patient is on Lantus BID. Currently on steroids taper, will hold tonight does and reduce Lantus to Qhs starting tomorrow. Close monitoring of BG and electrolytes. Nephrology is also following. 08/03: S/p trach and PEG exchange. Remains stable on the vent with no complications. Tolerating TF and also Tolerated 2hrs of PSV trial this am. Continue to taper IV steroids, qhs Lantus adjusted to avoid hypoglycemia. Hypernatremia improved, continue FWF per Nephro. Possible LTAC placement, case management to arrange. 08/04: ABRAM overnight. Sodium normalized this morning, electrolytes repleted, continue to monitor and replace electrolytes as needed. Nephrology is also following. Hypoglycemic overnight, TF not yet at goal, will hold Lantus for now. Continue daily PSV trial as tolerated. Possible LTAC placement, case management to arrange. 08/05: Now with thick secretions orally and via ETT, with persistent fevers. This am CXR suggesting possible developing lower lobe PNA. VSS. Will panculture and initiate empiric IV abx- Cefepine. Check CRP and procal. Remove Yañez catheter and follow Yañez removal protocol. ID was also consulted for further recs. TF is now at goal, hyperglycemic today, will resume qhs Lantus. Hyponatremia resolved, FWF adjusted. 08/06: Remains stable on low vent settings. Still with low grade fevers, procal and repeat cultures pending. ID recommendations noted. C/f for possible allergic reaction vs skin infection due to persistent skin blisters. Cefepine switched to Merrem and Vanco. Check CBC with Diff, continue to follow up on cultures. 08/07: No acute events reported overnight, T-max today 102. 08/16: Patient was noted to have blood clots in stool overnight and Lovenox was discontinued but was restarted given stable H&H. CPAP trial today. Vancomycin discontinued. 08/09: Noted to be GI bleeding, anticoagulation stopped. GI consulted. No plans for scope. Hospitalist Physical - Physical exam Narrative exam: General appearance: Present: no acute distress, other (Intubated and unresponsive) - EENT Eyes: Absent: PERRL ENT: poor dentition - Neck Neck: Present: normal ROM - Respiratory Respiratory effort: normal Respiratory: bilateral: diminished - Cardiovascular Rhythm: regular Heart Sounds: Present: S1 & S2. Absent: systolic murmur, diastolic murmur - Extremities Extremities: pulses intact, pulses symmetrical Extremity abnormal: edema Peripheral Pulses: within normal limits - Abdominal General gastrointestinal: soft, non-tender, non-distended, normal bowel sounds - Integumentary Integumentary: Present: warm, dry - Psychiatric Psychiatric: other - Neurologic Neurologic: other, Pupils not reactive, weak to absent cough/gag, no response to painful stimuli - Allied Health Allied health notes reviewed: nursing, RT, social work - Constitutional Vitals: Temp Pulse Resp BP Pulse Ox 99.0 F 89 25 H 143/72 97 08/09/22 15:55 08/09/22 17:00 08/09/22 17:00 08/09/22 17:00 08/09/22 17:00 General appearance: Present: no acute distress, other (Intubated and unre sponsive) HEART Score - HEART Score Troponin: Troponin T 0.049 ng/mL (0.00-0.029) H D 07/26/22 15:36 Results - Labs CBC & Chem 7: 08/09/22 16:11 08/09/22 04:53 Labs: Laboratory Last Values WBC 7.7 K/mm3 (4.5-11.0) 08/09/22 04:53 RBC 3.00 M/mm3 (3.65-5.03) L 08/09/22 04:53 Hgb 8.7 gm/dl (11.8-15.2) L 08/09/22 16:11 Hct 27.6 % (35.5-45.6) L 08/09/22 16:11 MCV 88 fl (84-94) 08/09/22 04:53 MCH 28 pg (28-32) 08/09/22 04:53 MCHC 32 % (32-34) 08/09/22 04:53 RDW 15.7 % (13.2-15.2) H 08/09/22 04:53 Plt Count 210 K/mm3 (140-440) 08/09/22 04:53 Lymph % (Auto) 10.6 % (13.4-35.0) L 08/07/22 04:16 Stanton % (Auto) 5.4 % (0.0-7.3) 08/07/22 04:16 Eos % (Auto) 0.7 % (0.0-4.3) 08/07/22 04:16 Baso % (Auto) 0.2 % (0.0-1.8) 08/07/22 04:16 Lymph # (Auto) 0.9 K/mm3 (1.2-5.4) L 08/07/22 04:16 Stanton # (Auto) 0.4 K/mm3 (0.0-0.8) 08/07/22 04:16 Eos # (Auto) 0.1 K/mm3 (0.0-0.4) 08/07/22 04:16 Baso # (Auto) 0.0 K/mm3 (0.0-0.1) 08/07/22 04:16 Add Manual Diff Complete 07/27/22 03:50 Total Counted 100 07/27/22 03:50 Seg Neutrophils % 83.1 % (40.0-70.0) H 08/07/22 04:16 Seg Neuts % (Manual) 78.0 % (40.0-70.0) H 07/27/22 03:50 Band Neutrophils % 16.0 % 07/27/22 03:50 Lymphocytes % (Manual) 3.0 % (13.4-35.0) L 07/27/22 03:50 Reactive Lymphs % (Man) 0 % 07/27/22 03:50 Monocytes % (Manual) 2.0 % (0.0-7.3) 07/27/22 03:50 Eosinophils % (Manual) 0 % (0.0-4.3) 07/27/22 03:50 Basophils % (Manual) 0 % (0.0-1.8) 07/27/22 03:50 Metamyelocytes % 1.0 % 07/27/22 03:50 Myelocytes % 0 % 07/27/22 03:50 Promyelocytes % 0 % 07/27/22 03:50 Blast Cells % 0 % 07/27/22 03:50 Nucleated RBC % Not Reportable 07/27/22 03:50 Seg Neutrophils # 6.7 K/mm3 (1.8-7.7) 08/07/22 04:16 Seg Neutrophils # Man 12.0 K/mm3 (1.8-7.7) H 07/27/22 03:50 Band Neutrophils # 2.5 K/mm3 07/27/22 03:50 Lymphocytes # (Manual) 0.5 K/mm3 (1.2-5.4) L 07/27/22 03:50 Abs React Lymphs (Man) 0.0 K/mm3 07/27/22 03:50 Monocytes # (Manual) 0.3 K/mm3 (0.0-0.8) 07/27/22 03:50 Eosinophils # (Manual) 0.0 K/mm3 (0.0-0.4) 07/27/22 03:50 Basophils # (Manual) 0.0 K/mm3 (0.0-0.1) 07/27/22 03:50 Metamyelocytes # 0.2 K/mm3 07/27/22 03:50 Myelocytes # 0.0 K/mm3 07/27/22 03:50 Promyelocytes # 0.0 K/mm3 07/27/22 03:50 Blast Cells # 0.0 K/mm3 07/27/22 03:50 WBC Morphology Not Reportable 07/27/22 03:50 Hypersegmented Neuts Not Reportable 07/27/22 03:50 Hyposegmented Neuts Not Reportable 07/27/22 03:50 Hypogranular Neuts Not Reportable 07/27/22 03:50 Smudge Cells Not Reportable 07/27/22 03:50 Toxic Granulation Not Reportable 07/27/22 03:50 Toxic Vacuolation Not Reportable 07/27/22 03:50 Dohle Bodies Not Reportable 07/27/22 03:50 Pelger-Huet Anomaly Not Reportable 07/27/22 03:50 Jay Rods Not Reportable 07/27/22 03:50 Platelet Estimate Consistent w auto 07/27/22 03:50 Clumped Platelets Not Reportable 07/27/22 03:50 Plt Clumps, EDTA Not Reportable 07/27/22 03:50 Large Platelets Not Reportable 07/27/22 03:50 Giant Platelets Not Reportable 07/27/22 03:50 Platelet Satelliting Not Reportable 07/27/22 03:50 Plt Morphology Comment Not Reportable 07/27/22 03:50 RBC Morphology Not Reportable 07/27/22 03:50 Dimorphic RBCs Not Reportable 07/27/22 03:50 Polychromasia Not Reportable 07/27/22 03:50 Hypochromasia Not Reportable 07/27/22 03:50 Poikilocytosis Not Reportable 07/27/22 03:50 Anisocytosis Not Reportable 07/27/22 03:50 Microcytosis Not Reportable 07/27/22 03:50 Macrocytosis Not Reportable 07/27/22 03:50 Spherocytes Not Reportable 07/27/22 03:50 Pappenheimer Bodies Not Reportable 07/27/22 03:50 Sickle Cells Not Reportable 07/27/22 03:50 Target Cells Not Reportable 07/27/22 03:50 Tear Drop Cells Not Reportable 07/27/22 03:50 Ovalocytes Not Reportable 07/27/22 03:50 Helmet Cells Not Reportable 07/27/22 03:50 Reynolds-[place] Bodies Not Reportable 07/27/22 03:50 [place] Rings Not Reportable 07/27/22 03:50 Leonora Cells Not Reportable 07/27/22 03:50 Bite Cells Not Reportable 07/27/22 03:50 Crenated Cell Not Reportable 07/27/22 03:50 Elliptocytes Not Reportable 07/27/22 03:50 Acanthocytes (Spur) Not Reportable 07/27/22 03:50 Rouleaux Not Reportable 07/27/22 03:50 Hemoglobin C Crystals Not Reportable 07/27/22 03:50 Schistocytes Not Reportable 07/27/22 03:50 Malaria parasites Not Reportable 07/27/22 03:50 Peewee Bodies Not Reportable 07/27/22 03:50 Hem Pathologist Commnt No 07/27/22 03:50 PT 14.3 Sec. (12.2-14.9) 07/31/22 04:13 INR 0.97 (0.87-1.13) 07/31/22 04:13 Heparin Anti-Xa, Unfract Negative (Negative) 08/01/22 04:17 ABG pH 7.500 pH Units (7.350-7.450) H 08/03/22 03:35 ABG pCO2 26.7 mm Hg 08/03/22 03:35 ABG pO2 129.6 mm Hg (80.0-90.0) H 08/03/22 03:35 ABG HCO3 20.4 mmol/L (20.0-26.0) 08/03/22 03:35 ABG O2 Saturation 98.7 % (95.0-99.0) 08/03/22 03:35 ABG O2 Content 13.5 (0.0-44) 08/03/22 03:35 ABG Base Excess -2.0 mmol/L (-2.0-3.0) 08/03/22 03:35 ABG Hemoglobin 9.7 gm/dl (14.0-18.0) L 08/03/22 03:35 ABG Carboxyhemoglobin 1.5 % (0.0-5.0) 08/03/22 03:35 ABG Methemoglobin 0.4 % (0.0-1.5) 08/03/22 03:35 VBG pH 7.362 (7.320-7.420) 07/25/22 19:37 Oxyhemoglobin 96.8 % (95.0-99.0) 08/03/22 03:35 FiO2 30 % 08/03/22 03:35 Sodium 138 mmol/L (137-145) 08/09/22 04:53 Potassium 3.5 mmol/L (3.6-5.0) L 08/09/22 04:53 Chloride 104.7 mmol/L (98-107) 08/09/22 04:53 Carbon Dioxide 27 mmol/L (22-30) 08/09/22 04:53 Anion Gap 10 mmol/L 08/09/22 04:53 BUN 17 mg/dL (9-20) 08/09/22 04:53 Creatinine 1.0 mg/dL (0.8-1.3) 08/09/22 04:53 Estimated GFR > 60 ml/min 08/09/22 04:53 BUN/Creatinine Ratio 17 % 08/09/22 04:53 Glucose 181 mg/dL (75-100) H 08/09/22 04:53 POC Glucose 174 mg/dL (70-105) H 08/09/22 11:29 Hemoglobin A1c 12.3 % (4-6) H 07/27/22 12:13 Lactic Acid 9.70 mmol/L (0.7-2.0) H* 07/26/22 15:36 Calcium 6.2 mg/dL (8.4-10.2) L 08/09/22 04:53 Phosphorus 2.00 mg/dL (2.5-4.5) L 08/07/22 04:16 Magnesium 1.80 mg/dL (1.7-2.3) 08/07/22 04:16 Total Bilirubin 0.30 mg/dL (0.1-1.2) 08/08/22 04:46 Direct Bilirubin < 0.2 mg/dL (0-0.2) 08/08/22 04:46 Indirect Bilirubin 0.1 mg/dL 08/08/22 04:46 AST 81 units/L (5-40) H 08/08/22 04:46 ALT 42 units/L (7-56) 08/08/22 04:46 Alkaline Phosphatase 116 units/L (35-129) 08/08/22 04:46 Ammonia 64.0 umol/L (25-60) H 07/25/22 19:37 Total Creatine Kinase 158 units/L (55-170) 07/25/22 19:37 CK-MB (CK-2) < 1.0 ng/mL (0.0-4.0) 07/25/22 19:37 CK-MB (CK-2) Rel Index 0.6 (0-4) 07/25/22 19:37 Troponin T 0.049 ng/mL (0.00-0.029) H D 07/26/22 15:36 C-Reactive Protein 21.50 mg/dL (0.00-1.30) H 08/05/22 21:43 Total Protein 5.1 g/dL (6.3-8.2) L 08/08/22 04:46 Albumin 1.7 g/dL (3.9-5) L 08/08/22 04:46 Albumin/Globulin Ratio 0.5 % 08/08/22 04:46 Triglycerides 362 mg/dL (2-149) H 07/25/22 19:37 Cholesterol 126 mg/dL (50-199) 07/25/22 19:37 LDL Cholesterol Direct 44 mg/dL (50-130) L 07/25/22 19:37 HDL Cholesterol 34 mg/dL (40-59) L 07/25/22 19:37 Cholesterol/HDL Ratio 3.70 % 07/25/22 19:37 Serotonin Release Assay See scanned result 08/01/22 04:17 Procalcitonin 0.56 ng/mL (<0.15) 08/05/22 21:43 TSH 2.170 mlU/mL (0.270-4.200) 07/25/22 19:37 Free T4 1.18 ng/dL (0.76-1.46) 07/25/22 19:37 Urine Color Lin (Yellow) 08/05/22 11:00 Urine Turbidity Cloudy (Clear) 08/05/22 11:00 Specific [place] (Man) 1.017 (1.003-1.030) 08/05/22 11:00 Ur Protein (Man) 2+ mg/dL (Negative) 08/05/22 11:00 Ur Ketones (Man) Negative (Negative) 08/05/22 11:00 Ur Nitrite (Man) Negative (Negative) 08/05/22 11:00 Ur Reducing Substances Not Reportable 07/26/22 08:31 Urine Bilirubin (Man) Negative (Negative) 08/05/22 11:00 Urine Ictotest Not Reportable 08/05/22 11:00 Leukocyte Esterase (Man) Negative (Negative) 08/05/22 11:00 Urine WBC (Auto) 6.0 /HPF (0.0-6.0) 08/05/22 11:00 Urine RBC (Auto) 6.0 /HPF (0.0-6.0) 08/05/22 11:00 U Epithel Cells (Auto) 1.0 /HPF (0-13.0) 08/05/22 11:00 Urine Bacteria (Auto) 1+ /HPF (Negative) 08/05/22 11:00 Urine RBC (Manual) 4+ (Negative) 08/05/22 11:00 Ur Renal Epithelial Cell 3 /LPF 07/26/22 08:31 Uric Acid Crystals Few 08/05/22 11:00 Amorphous Crystals Few 08/05/22 11:00 Urine Mucus Few /HPF 08/05/22 11:00 Urine Creatinine 118.4 mg/dL (0.1-20.0) H 07/26/22 18:10 Protein/Creatinin Ratio 1.23 07/26/22 18:10 Urine Sodium 108 mmol/L 07/26/22 18:10 Urine Total Protein 146 mg/dL (5-11.8) H 07/26/22 18:10 Nasal Screen MRSA (PCR) Negative (Negative) 08/05/22 14:00 Heparin-induced Plt Ab Negative (Negative) 08/01/22 04:17 UF Heparin High Dose 0 % Release 08/01/22 04:17 SU UFH Low Dose 0.1 0 % Release 08/01/22 04:17 SU UFH Low Dose 0.5 0 % Release 08/01/22 04:17 Microbiology: Microbiology 08/05/22 21:56 Peripheral/Venous Blood Culture - Preliminary NO GROWTH AFTER 72 HOURS 08/05/22 21:43 Peripheral/Venous Blood Culture - Preliminary NO GROWTH AFTER 72 HOURS Yañez/IV: Voiding Method Indwelling Catheter Active Medications - Current Medications Current Medications: Generic Name Dose Route Start Last Admin Trade Name Freq PRN Reason Stop Dose Admin Acetaminophen 650 mg 07/26/22 00:31 08/08/22 06:11 Acetaminophen 325 Mg Tab PO 650 mg Q4H PRN Administration Pain MILD(1-3)/Fever >100.5/LANTIGUA Acetaminophen 650 mg 07/26/22 02:04 Acetaminophen 650 Mg Rect Supp TN Q4H PRN Pain, Mild (1-3) Albuterol 2.5 mg 07/26/22 00:31 Albuterol 2.5 Mg/3 Ml Nebu IH Q3HRT PRN Shortness Of Breath Amiodarone HCl 200 mg 08/04/22 11:00 08/09/22 09:29 Amiodarone 200 Mg Tab FEEDTUBE 200 mg BID LIZZIE Administration Atorvastatin Calcium 40 mg 08/04/22 22:00 08/08/22 22:47 Atorvastatin 40 Mg Tab FEEDTUBE 40 mg QHS LIZZIE Administration Calcium Carbonate/Glycine 1,250 mg 08/09/22 10:00 08/09/22 11:52 Calcium Carbonate 1250 Mg/5 Ml Oral Liqd FEEDTUBE 1,250 mg BID LIZZIE Administration Dextrose 50 ml 07/27/22 09:25 08/04/22 06:03 Dextrose 50% In Water (25gm) 50 Ml Syringe IV 50 ml Q30MIN PRN Administration Hypoglycemia Protocol Famotidine 10 mg 07/28/22 10:00 08/09/22 09:29 Famotidine 10 Mg Tab FEEDTUBE 10 mg BID LIZZIE Administration Meropenem/Sodium Chloride 1 gram in 100 mls @ 100 mls/hr 08/06/22 10:00 08/09/22 17:59 Merrem/Ns 1 Gram/100 Ml IV 08/14/22 02:59 100 mls/hr Q8H LIZZIE Administration Protocol Insulin Glargine 20 units 08/08/22 22:00 08/08/22 22:51 Insulin Glargine 100 Units/Ml SUB-Q 20 units QHS LIZZIE Administration Insulin Human Regular 0 units 07/27/22 12:00 08/09/22 17:58 Insulin Regular, Human 100 Units/1 Ml SUB-Q 4 units Q6H LIZZIE Administration Protocol Multi-Ingred Cream/Lotion/Oil/Oint 1 applic 07/27/22 03:17 07/27/22 03:35 Mineral Oil/Petrolatum, White Ophth Oint 3.5 Gm OU 1 applic PRN PRN Administration Dry Eye(s) Nitroglycerin 0.4 mg 07/26/22 00:31 Nitroglycerin 0.4 Mg Tab Subl SL Q5M PRN Chest Pain Ondansetron HCl 4 mg 07/26/22 00:31 Ondansetron 4 Mg/2 Ml Inj IV Q8H PRN Nausea And Vomiting Sodium Bicarbonate 650 mg 08/04/22 14:00 08/09/22 15:42 Sodium Bicarbonate 650 Mg Tab FEEDTUBE 650 mg TID LIZZIE Administration Sodium Chloride 10 ml 07/26/22 10:00 08/09/22 09:29 Sodium Chloride 0.9% 10 Ml Flush Syringe IV 10 ml BID LIZZIE Administration Sodium Chloride 10 ml 07/26/22 00:31 Sodium Chloride 0.9% 10 Ml Flush Syringe IV PRN PRN LINE FLUSH Nutrition/Malnutrition Assess - Dietary Evaluation Nutrition/Malnutrition Findings: Nutrition Notes Start: 07/26/22 10:25 Freq: Status: Active Protocol: Document 08/07/22 15:00 CM (Rec: 08/07/22 15:13 CM [id number]) Co-Sign 08/07/22 15:00 WW Nutrition Notes Initial or Follow up Brief Note Current Diagnosis Sepsis,Hypertension, Respiratory Failure,Stroke, Hyperlipidemia Other Pertinent Diagnosis s/p Cardiac Arrest, AMS Current Diet TF - Glucerna 45mL/hr Labs/Tests 08/07: K 3.4 Cl 107.8 BUN 21 Glu 216 Pertinent Medications 08/07: Atorvastatin Humulin Height 5 ft 5 in Weight 49.8 kg [place] Body Weight (kg) 61.81 BMI 18.2 Weight Status Underweight Subjective/Other Information RD follow-up per protocol. Pt currently receiving Glucerna @ 45mL/hr. RN reported loose stool 2x q day. No gastric residuals recorded. Pt continues ventilation via tracheostomy. Abdomen large, round, w/ BS+ per physical assessment. No contraindications to continue. GI Symptoms None Skin Integrity/Comment Kane 10 - breakdown / blisters Current % PO Other #2 Nutrition Diagnosis Underweight Diagnosis Progress(for reassessment Continues documentation) #1 Nutrition Diagnosis Inadequate oral intake Diagnosis Progress(for reassessment Continues documentation) Is patient on ventilator? Yes Is Patient Ambulatory and/or Out of Bed No REE-([facility]-confined to bed) 1398.456 Kcal/Kg value to use for calculation 31 Approximate Energy Requirements Using 1544 kcal/Kg Calculation Used for Recommendations Kcal/kg Additional Notes Pro needs 1.2-2.0g/k-100g /day Fluid needs per MD. Nutrition Intervention Nutrition Support: Change TF rate to 55mL/hr of Glucerna 1.2. Flush with 100mL q 4hrs. Kcal 1,584 Protein (gm) 79 Fluid (mL) 1,060 % RDI: 102%Kcal /100% AA Goal #1 TF tolerance Goal #2 TF to provide at least 75% energy and pro needs Follow-Up By: 08/14/22 Additional Comments Monitor TF administration, TF tolerance, nutrition-related labs, wt status.
[2022-08-09] MEDS: INSULIN GLARGINE 100 UNITS/ML SUB-Q SCH (21:24)
--- NOTE | 2022-08-09 22:06 | Consultation ---
DATE OF CONSULTATION: 08/09/2022 INDICATION: Rectal bleeding. REFERRING PHYSICIAN: Ivis Fraga. HISTORY OF PRESENT ILLNESS: The patient is a 77-year-old been seen by GI for rectal bleeding. The patient presented and was admitted on 07/26/2022. The patient has a history of an RI, hypertension, diabetes, was brought in with altered mental status. The patient subsequently has been intubated and being treated for that. The patient has sepsis and she is awaiting placement. The patient also has pneumonia. The patient also has cardiac issues. The patient was noted to have some rectal bleeding today with some clots. The patient's blood counts have not changed. The patient prior had no recent GI problems or complaints. No signs of active bleeding. GI is consulted to aid in management. PAST MEDICAL HISTORY: 1. Hypertension. 2. Diabetes. 3. Status post RI. MEDICATIONS: Reviewed and updated in chart. ALLERGIES: No known drug allergies. SOCIAL HISTORY: Reportedly, no alcohol, tobacco. Lives in correction. FAMILY HISTORY: Negative for colon cancer. REVIEW OF SYSTEMS: Per chart. GENERAL: General weakness. HEENT: Denies visual complaints. PULMONARY: Reports shortness of breath, chest pain. GASTROINTESTINAL: Reports rectal bleeding. All points of 13-point review of system otherwise negative. PHYSICAL EXAMINATION: VITAL SIGNS: Temperature of 98.3, pulse 90, respirations 20, blood pressure 130/70. GENERAL: Intubated, sedated, in no acute distress. HEENT: Pupils round, reactive. PULMONARY: Rhonchi. CARDIOVASCULAR: Regular rate and rhythm. ABDOMEN: Soft. SKIN: No obvious rashes. LABORATORY DATA: Pertinent for white count of 7.7, hemoglobin and hematocrit are 8.4 and 26.4, platelet count 210. ASSESSMENT: A 77-year-old with past medical history as noted above, now intubated with sepsis, now noted to have some rectal bleeding. The patient's hemoglobin and hematocrit have not changed significantly. Given chronic medical issues and active issues, would want to take a more conservative approach. PLAN: 1. Follow hematocrit and transfuse as needed. 2. PPI IV b.i.d. 3. Avoid NSAIDs and aspirin. 4. Consider scope based on progress, but no plans to do so at this time. 5. We will follow. TID: [id number] RECEIPT: [id number] TARA/EMEKA
[2022-08-10] MEDS: INSULIN REGULAR, HUMAN 100 UNITS/1 ML SUB-Q SCH ×4 (00:55→18:39)
[2022-08-10] MEDS: MEROPENEM/NS 1 GRAM/100 ML 1 GRAM/100 ML BAG IV SCH ×3 (02:49→17:00)
[2022-08-10 05:34] LABS: Hematocrit 25.6 % (35.5-45.6); Hemoglobin 8.4 gm/dl (11.8-15.2); Mean Corpuscular HGB Conc 33 % (32-34); Mean Corpuscular Volume 88 fl (84-94); Platelet Count 209 K/mm3 (140-440); Red Blood Count 2.92 M/mm3 (3.65-5.03); Red Cell Distribution Width 15.7 % (13.2-15.2)
[2022-08-10 05:45] LABS: BUN/Creatinine Ratio 16; Blood Urea Nitrogen 16 mg/dL (9-20); Calcium 6.6 mg/dL (8.4-10.2); Hemolysis Index 66
[2022-08-10] MEDS: FAMOTIDINE 10 MG TAB FEEDTUBE SCH ×2 (09:45→22:45)
[2022-08-10] MEDS: SODIUM BICARBONATE 650 MG TAB FEEDTUBE SCH ×3 (09:45→19:53)
[2022-08-10] MEDS: AMIODARONE 200 MG TAB FEEDTUBE SCH ×2 (09:45→22:45)
[2022-08-10] MEDS: CALCIUM CARBONATE 1250 MG/5 ML ORAL LIQD FEEDTUBE SCH ×2 (09:45→22:44)
--- NOTE | 2022-08-10 10:43 | Progress Note ---
Assessment and Plan 77 y/o male with cardiac arrest, intubated, not sedated with multisystem organ failure 08/10/22: ID following. Continue supportive care. 08/09/22: Still spiking temps. ID following with abx therapy. Await placement 08/08/22: Stopping Vanc. Merrem for 8 days. Hold on imaging of head right now. LFT's are ok. Guarded prognosis. Await placement. 08/07/22: Abx therapy per ID. Tracheal aspirate was respiratory kristin. Bld Cx pending. If continues to spike fevers, need to consider repeat imaging of head (CT vs MRI). Could check for alcalculous cholecysitis. Suggest sending LFT's tomorrow. STill awaiting placement. Overall prognosis is guarded to poor. 08/04/22: CXR in am. Will order sputum as per report, secretions have increased. Abx therapy has stopped. Trach site stable. await placement. If spikes again, needs blood, urine and UA. 08/03/22: Await placement. Continue daily PSV. PT consult. 08/01/22: Follow up surgery recs. Continue supportive care. 07/31/22: Supportive care. Surgery consult for trach and peg. Renal function continues to improve. 07/30/22: Continue supportive measures. Family wants aggressive measures despite MRI findings so needs consult to surgery for trach and peg. Will drop steroids down to 25q8 or 50q12 Sunday. Continue volume as renal function is improving. needs more free water if possible. 07/29/22: Drop steroids to 50q8 starting today. CBC not checked, need to evaluate Platelets. Need to correct electrolytes as well. Family is likely going to want trach and peg based on earlier conversations but awaiting more family. Given recent MRI results, prognosis is very poor. 07/28/22: Hold on Volume today. Drop steroids down to 50q8 starting tomorrow. Follow up MRI. EEG results still pending. Platelets still dropping but no evidence of bleeding. Continue abx therapy. Continue feeds. Prognosis is still guarded. 07/27/22: more volume again today. Echo showed normal EF. Wean pressors for MAPs >65, follow up EEg results. Hopeful to get head CT today. Platelets dropped today, not on heparin. Could be sepsis related. If head CT negative, may need to evaluate abdomen around peg. Will start trickle feeds today and transition of insulin drip. Prognosis is still guarded. 1. IVF resusciation with LR 2. Insulin drip and continue NPO state 3. Attempt to wean pressors for MAPs greater than 65 4. Monitor urine output 5. Broaden abx therapy given current clinical state 6. Follow up echo report 7. Agree with stress dose steroids 8. No sedation 9. EEG pending Overall prognosis is guarded to poor, especially given current clinical exam CCT 31 minutes. Subjective Date of service: 08/10/22 Principal diagnosis: Hypernatremia, ARF Interval history: No acute events. Objective Vital Signs - 12hr 08/09/22 08/09/22 08/10/22 23:00 23:25 00:00 Temperature 99.7 F H Pulse Rate 100 H 97 H 96 H Pulse Rate [ 86 From Monitor] Respiratory 24 10 L 23 Rate Blood Pressure 129/79 138/82 136/68 O2 Sat by Pulse 97 98 96 Oximetry 08/10/22 08/10/22 08/10/22 01:00 02:00 03:00 Temperature Pulse Rate 98 H 90 97 H Pulse Rate [ 86 From Monitor] Respiratory 25 H 23 28 H Rate Blood Pressure 141/70 130/61 145/65 O2 Sat by Pulse 97 96 98 Oximetry 08/10/22 08/10/22 08/10/22 03:30 04:00 05:00 Temperature 99.9 F H Pulse Rate 95 H 97 H 96 H Pulse Rate [ From Monitor] Respiratory 6 L 29 H 29 H Rate Blood Pressure 141/85 142/74 146/77 O2 Sat by Pulse 99 95 97 Oximetry 08/10/22 08/10/22 08/10/22 06:00 07:00 09:01 Temperature Pulse Rate 97 H 97 H 97 H Pulse Rate [ 82 From Monitor] Respiratory 29 H 26 H 12 Rate Blood Pressure 143/71 138/70 142/82 O2 Sat by Pulse 97 98 99 Oximetry 08/10/22 09:09 Temperature Pulse Rate 101 H Pulse Rate [ From Monitor] Respiratory 48 H Rate Blood Pressure 142/82 O2 Sat by Pulse 100 Oximetry CBC and BMP: 08/10/22 05:03 08/10/22 05:03 ABG, PT/INR, D-dimer: ABG ABG pH 7.500 pH Units (7.350-7.450) H 08/03/22 03:35 ABG pCO2 26.7 mm Hg 08/03/22 03:35 ABG pO2 129.6 mm Hg (80.0-90.0) H 08/03/22 03:35 ABG O2 Saturation 98.7 % (95.0-99.0) 08/03/22 03:35 PT/INR, D-dimer PT 14.3 Sec. (12.2-14.9) 07/31/22 04:13 INR 0.97 (0.87-1.13) 07/31/22 04:13 Abnormal lab findings: Abnormal Labs 07/25/22 07/25/22 07/25/22 19:37 19:37 19:37 WBC 18.8 H RBC 6.31 H Hgb 18.8 H Hct 57.3 H MCV MCHC RDW Plt Count Lymph % (Auto) Lymph # (Auto) [place] # (Auto) 1.4 H Seg Neutrophils % 70.7 H Seg Neuts % (Manual) Lymphocytes % (Manual) Seg Neutrophils # 13.3 H Seg Neutrophils # Man Lymphocytes # (Manual) ABG pH ABG pO2 ABG HCO3 ABG O2 Saturation ABG Base Excess ABG Hemoglobin Oxyhemoglobin Sodium 149 H Potassium Chloride 110.3 H Carbon Dioxide 18 L BUN 73 H Creatinine 3.3 H Glucose 761 H* POC Glucose Hemoglobin A1c Lactic Acid Calcium 10.6 H Phosphorus Magnesium 3.10 H AST 63 H ALT 64 H Ammonia Troponin T 0.072 H C-Reactive Protein Total Protein 9.0 H Albumin Triglycerides 362 H LDL Cholesterol Direct 44 L HDL Cholesterol 34 L Urine Creatinine Urine Total Protein 07/25/22 07/25/22 07/25/22 19:37 21:08 22:10 WBC RBC Hgb Hct MCV MCHC RDW Plt Count Lymph % (Auto) Lymph # (Auto) [place] # (Auto) Seg Neutrophils % Seg Neuts % (Manual) Lymphocytes % (Manual) Seg Neutrophils # Seg Neutrophils # Man Lymphocytes # (Manual) ABG pH ABG pO2 ABG HCO3 ABG O2 Saturation ABG Base Excess ABG Hemoglobin Oxyhemoglobin Sodium 155 H Potassium Chloride 113.1 H Carbon Dioxide 14 L BUN 74 H Creatinine 3.5 H Glucose 734 H* POC Glucose Hemoglobin A1c Lactic Acid 12.70 H* Calcium Phosphorus Magnesium AST ALT Ammonia 64.0 H Troponin T C-Reactive Protein Total Protein Albumin Triglycerides LDL Cholesterol Direct HDL Cholesterol Urine Creatinine Urine Total Protein 07/25/22 07/25/22 07/26/22 22:20 23:29 00:13 WBC RBC Hgb Hct MCV MCHC RDW Plt Count Lymph % (Auto) Lymph # (Auto) [place] # (Auto) Seg Neutrophils % Seg Neuts % (Manual) Lymphocytes % (Manual) Seg Neutrophils # Seg Neutrophils # Man Lymphocytes # (Manual) ABG pH 7.342 L ABG pO2 318.2 H ABG HCO3 14.4 L ABG O2 Saturation 99.5 H ABG Base Excess -9.4 L ABG Hemoglobin Oxyhemoglobin Sodium 157 H Potassium 3.1 L D Chloride 114.0 H Carbon Dioxide 21 L D BUN 72 H Creatinine 3.7 H Glucose 615 H* POC Glucose > 600 H Hemoglobin A1c Lactic Acid Calcium Phosphorus Magnesium AST ALT Ammonia Troponin T C-Reactive Protein Total Protein Albumin Triglycerides LDL Cholesterol Direct HDL Cholesterol Urine Creatinine Urine Total Protein 07/26/22 07/26/22 07/26/22 00:13 00:38 00:39 WBC 21.4 H RBC 5.88 H Hgb 17.2 H Hct 55.0 H MCV MCHC 31 L RDW 16.0 H Plt Count Lymph % (Auto) Lymph # (Auto) [place] # (Auto) Seg Neutrophils % Seg Neuts % (Manual) 77.0 H Lymphocytes % (Manual) 13.0 L Seg Neutrophils # Seg Neutrophils # Man 16.5 H Lymphocytes # (Manual) ABG pH ABG pO2 ABG HCO3 ABG O2 Saturation ABG Base Excess ABG Hemoglobin Oxyhemoglobin Sodium Potassium Chloride Carbon Dioxide BUN Creatinine Glucose POC Glucose 517 H Hemoglobin A1c Lactic Acid 9.10 H* Calcium Phosphorus Magnesium AST ALT Ammonia Troponin T C-Reactive Protein Total Protein Albumin Triglycerides LDL Cholesterol Direct HDL Cholesterol Urine Creatinine Urine Total Protein 07/26/22 07/26/22 07/26/22 00:39 01:32 02:28 WBC RBC Hgb Hct MCV MCHC RDW Plt Count Lymph % (Auto) Lymph # (Auto) [place] # (Auto) Seg Neutrophils % Seg Neuts % (Manual) Lymphocytes % (Manual) Seg Neutrophils # Seg Neutrophils # Man Lymphocytes # (Manual) ABG pH ABG pO2 ABG HCO3 ABG O2 Saturation ABG Base Excess ABG Hemoglobin Oxyhemoglobin Sodium Potassium Chloride Carbon Dioxide BUN Creatinine Glucose POC Glucose 460 H 237 H Hemoglobin A1c Lactic Acid Calcium Phosphorus 1.20 L D Magnesium 4.10 H AST ALT Ammonia Troponin T C-Reactive Protein Total Protein Albumin Triglycerides LDL Cholesterol Direct HDL Cholesterol Urine Creatinine Urine Total Protein 07/26/22 07/26/22 07/26/22 03:03 03:07 04:11 WBC RBC Hgb Hct MCV MCHC RDW Plt Count Lymph % (Auto) Lymph # (Auto) [place] # (Auto) Seg Neutrophils % Seg Neuts % (Manual) Lymphocytes % (Manual) Seg Neutrophils # Seg Neutrophils # Man Lymphocytes # (Manual) ABG pH ABG pO2 ABG HCO3 ABG O2 Saturation ABG Base Excess ABG Hemoglobin Oxyhemoglobin Sodium Potassium Chloride Carbon Dioxide BUN Creatinine Glucose POC Glucose 433 H 370 H 338 H Hemoglobin A1c Lactic Acid Calcium Phosphorus Magnesium AST ALT Ammonia Troponin T C-Reactive Protein Total Protein Albumin Triglycerides LDL Cholesterol Direct HDL Cholesterol Urine Creatinine Urine Total Protein 07/26/22 07/26/22 07/26/22 04:35 04:35 04:40 WBC RBC Hgb Hct MCV MCHC RDW Plt Count Lymph % (Auto) Lymph # (Auto) [place] # (Auto) Seg Neutrophils % Seg Neuts % (Manual) Lymphocytes % (Manual) Seg Neutrophils # Seg Neutrophils # Man Lymphocytes # (Manual) ABG pH 7.301 L ABG pO2 178.2 H ABG HCO3 11.0 L ABG O2 Saturation 99.1 H ABG Base Excess -13.3 L ABG Hemoglobin Oxyhemoglobin Sodium 162 H* Potassium 3.0 L Chloride 124.8 H Carbon Dioxide 18 L BUN 69 H Creatinine 3.9 H Glucose 385 H POC Glucose Hemoglobin A1c Lactic Acid 8.20 H* Calcium 7.8 L Phosphorus Magnesium AST ALT Ammonia Troponin T C-Reactive Protein Total Protein Albumin Triglycerides LDL Cholesterol Direct HDL Cholesterol Urine Creatinine Urine Total Protein 07/26/22 07/26/22 07/26/22 05:01 06:14 06:52 WBC RBC Hgb Hct MCV MCHC RDW Plt Count Lymph % (Auto) Lymph # (Auto) [place] # (Auto) Seg Neutrophils % Seg Neuts % (Manual) Lymphocytes % (Manual) Seg Neutrophils # Seg Neutrophils # Man Lymphocytes # (Manual) ABG pH ABG pO2 ABG HCO3 ABG O2 Saturation ABG Base Excess ABG Hemoglobin Oxyhemoglobin Sodium Potassium Chloride Carbon Dioxide BUN Creatinine Glucose POC Glucose 347 H 300 H 278 H Hemoglobin A1c Lactic Acid Calcium Phosphorus Magnesium AST ALT Ammonia Troponin T C-Reactive Protein Total Protein Albumin Triglycerides LDL Cholesterol Direct HDL Cholesterol Urine Creatinine Urine Total Protein 07/26/22 07/26/22 07/26/22 07:59 08:58 10:04 WBC RBC Hgb Hct MCV MCHC RDW Plt Count Lymph % (Auto) Lymph # (Auto) [place] # (Auto) Seg Neutrophils % Seg Neuts % (Manual) Lymphocytes % (Manual) Seg Neutrophils # Seg Neutrophils # Man Lymphocytes # (Manual) ABG pH ABG pO2 ABG HCO3 ABG O2 Saturation ABG Base Excess ABG Hemoglobin Oxyhemoglobin Sodium Potassium Chloride Carbon Dioxide BUN Creatinine Glucose POC Glucose 269 H 277 H 244 H Hemoglobin A1c Lactic Acid Calcium Phosphorus Magnesium AST ALT Ammonia Troponin T C-Reactive Protein Total Protein Albumin Triglycerides LDL Cholesterol Direct HDL Cholesterol Urine Creatinine Urine Total Protein 07/26/22 07/26/22 07/26/22 11:03 11:53 13:08 WBC RBC Hgb Hct MCV MCHC RDW Plt Count Lymph % (Auto) Lymph # (Auto) [place] # (Auto) Seg Neutrophils % Seg Neuts % (Manual) Lymphocytes % (Manual) Seg Neutrophils # Seg Neutrophils # Man Lymphocytes # (Manual) ABG pH ABG pO2 ABG HCO3 ABG O2 Saturation ABG Base Excess ABG Hemoglobin Oxyhemoglobin Sodium Potassium Chloride Carbon Dioxide BUN Creatinine Glucose POC Glucose 253 H 213 H 194 H Hemoglobin A1c Lactic Acid Calcium Phosphorus Magnesium AST ALT Ammonia Troponin T C-Reactive Protein Total Protein Albumin Triglycerides LDL Cholesterol Direct HDL Cholesterol Urine Creatinine Urine Total Protein 07/26/22 07/26/22 07/26/22 14:24 14:56 14:57 WBC RBC Hgb Hct MCV MCHC RDW Plt Count Lymph % (Auto) Lymph # (Auto) [place] # (Auto) Seg Neutrophils % Seg Neuts % (Manual) Lymphocytes % (Manual) Seg Neutrophils # Seg Neutrophils # Man Lymphocytes # (Manual) ABG pH ABG pO2 ABG HCO3 ABG O2 Saturation ABG Base Excess ABG Hemoglobin Oxyhemoglobin Sodium Potassium Chloride Carbon Dioxide BUN Creatinine Glucose POC Glucose 185 H 236 H 207 H Hemoglobin A1c Lactic Acid Calcium Phosphorus Magnesium AST ALT Ammonia Troponin T C-Reactive Protein Total Protein Albumin Triglycerides LDL Cholesterol Direct HDL Cholesterol Urine Creatinine Urine Total Protein 07/26/22 07/26/22 07/26/22 15:36 15:36 15:36 WBC RBC Hgb Hct MCV MCHC RDW Plt Count Lymph % (Auto) Lymph # (Auto) [place] # (Auto) Seg Neutrophils % Seg Neuts % (Manual) Lymphocytes % (Manual) Seg Neutrophils # Seg Neutrophils # Man Lymphocytes # (Manual) ABG pH ABG pO2 ABG HCO3 ABG O2 Saturation ABG Base Excess ABG Hemoglobin Oxyhemoglobin Sodium 160 H Potassium Chloride 126.2 H Carbon Dioxide 18 L BUN 59 H Creatinine 3.2 H Glucose 227 H POC Glucose Hemoglobin A1c Lactic Acid 9.70 H* Calcium 7.1 L Phosphorus Magnesium AST ALT Ammonia Troponin T 0.049 H D C-Reactive Protein Total Protein Albumin Triglycerides LDL Cholesterol Direct HDL Cholesterol Urine Creatinine Urine Total Protein 07/26/22 07/26/22 07/26/22 15:57 16:32 17:04 WBC RBC Hgb Hct MCV MCHC RDW Plt Count Lymph % (Auto) Lymph # (Auto) [place] # (Auto) Seg Neutrophils % Seg Neuts % (Manual) Lymphocytes % (Manual) Seg Neutrophils # Seg Neutrophils # Man Lymphocytes # (Manual) ABG pH ABG pO2 ABG HCO3 ABG O2 Saturation ABG Base Excess ABG Hemoglobin Oxyhemoglobin Sodium Potassium Chloride Carbon Dioxide BUN Creatinine Glucose POC Glucose 207 H 189 H 219 H Hemoglobin A1c Lactic Acid Calcium Phosphorus Magnesium AST ALT Ammonia Troponin T C-Reactive Protein Total Protein Albumin Triglycerides LDL Cholesterol Direct HDL Cholesterol Urine Creatinine Urine Total Protein 07/26/22 07/26/22 07/26/22 18:00 18:10 18:52 WBC RBC Hgb Hct MCV MCHC RDW Plt Count Lymph % (Auto) Lymph # (Auto) [place] # (Auto) Seg Neutrophils % Seg Neuts % (Manual) Lymphocytes % (Manual) Seg Neutrophils # Seg Neutrophils # Man Lymphocytes # (Manual) ABG pH ABG pO2 ABG HCO3 ABG O2 Saturation ABG Base Excess ABG Hemoglobin Oxyhemoglobin Sodium Potassium Chloride Carbon Dioxide BUN Creatinine Glucose POC Glucose 197 H 194 H Hemoglobin A1c Lactic Acid Calcium Phosphorus Magnesium AST ALT Ammonia Troponin T C-Reactive Protein Total Protein Albumin Triglycerides LDL Cholesterol Direct HDL Cholesterol Urine Creatinine 118.4 H Urine Total Protein 146 H 07/26/22 07/26/22 07/26/22 20:47 21:30 21:51 WBC RBC Hgb Hct MCV MCHC RDW Plt Count Lymph % (Auto) Lymph # (Auto) [place] # (Auto) Seg Neutrophils % Seg Neuts % (Manual) Lymphocytes % (Manual) Seg Neutrophils # Seg Neutrophils # Man Lymphocytes # (Manual) ABG pH ABG pO2 ABG HCO3 ABG O2 Saturation ABG Base Excess ABG Hemoglobin Oxyhemoglobin Sodium 155 H Potassium Chloride 123.5 H Carbon Dioxide 16 L BUN 53 H Creatinine 2.9 H Glucose 185 H POC Glucose 134 H 124 H Hemoglobin A1c Lactic Acid Calcium 7.0 L Phosphorus Magnesium AST ALT Ammonia Troponin T C-Reactive Protein Total Protein Albumin Triglycerides LDL Cholesterol Direct HDL Cholesterol Urine Creatinine Urine Total Protein 07/26/22 07/26/22 07/27/22 22:47 23:52 00:45 WBC RBC Hgb Hct MCV MCHC RDW Plt Count Lymph % (Auto) Lymph # (Auto) [place] # (Auto) Seg Neutrophils % Seg Neuts % (Manual) Lymphocytes % (Manual) Seg Neutrophils # Seg Neutrophils # Man Lymphocytes # (Manual) ABG pH ABG pO2 ABG HCO3 ABG O2 Saturation ABG Base Excess ABG Hemoglobin Oxyhemoglobin Sodium 155 H Potassium Chloride 124.2 H Carbon Dioxide 19 L BUN 53 H Creatinine 2.5 H Glucose 168 H POC Glucose 138 H 150 H Hemoglobin A1c Lactic Acid Calcium 6.7 L Phosphorus Magnesium AST ALT Ammonia Troponin T C-Reactive Protein Total Protein Albumin Triglycerides LDL Cholesterol Direct HDL Cholesterol Urine Creatinine Urine Total Protein 07/27/22 07/27/22 07/27/22 00:58 02:45 03:50 WBC 15.4 H RBC Hgb Hct MCV MCHC RDW 15.3 H Plt Count 60 L Lymph % (Auto) Lymph # (Auto) [place] # (Auto) Seg Neutrophils % Seg Neuts % (Manual) 78.0 H Lymphocytes % (Manual) 3.0 L Seg Neutrophils # Seg Neutrophils # Man 12.0 H Lymphocytes # (Manual) 0.5 L ABG pH ABG pO2 ABG HCO3 ABG O2 Saturation ABG Base Excess ABG Hemoglobin Oxyhemoglobin Sodium Potassium Chloride Carbon Dioxide BUN Creatinine Glucose POC Glucose 153 H 150 H Hemoglobin A1c Lactic Acid Calcium Phosphorus Magnesium AST ALT Ammonia Troponin T C-Reactive Protein Total Protein Albumin Triglycerides LDL Cholesterol Direct HDL Cholesterol Urine Creatinine Urine Total Protein 07/27/22 07/27/22 07/27/22 03:50 03:55 04:57 WBC RBC Hgb Hct MCV MCHC RDW Plt Count Lymph % (Auto) Lymph # (Auto) [place] # (Auto) Seg Neutrophils % Seg Neuts % (Manual) Lymphocytes % (Manual) Seg Neutrophils # Seg Neutrophils # Man Lymphocytes # (Manual) ABG pH ABG pO2 110.1 H ABG HCO3 13.3 L ABG O2 Saturation ABG Base Excess -9.0 L ABG Hemoglobin 13.1 L Oxyhemoglobin Sodium 154 H Potassium Chloride 123.0 H Carbon Dioxide 19 L BUN 55 H Creatinine 2.8 H Glucose 153 H POC Glucose 112 H Hemoglobin A1c Lactic Acid Calcium 6.8 L Phosphorus 1.30 L Magnesium AST 64 H ALT Ammonia Troponin T C-Reactive Protein Total Protein 4.1 L D Albumin 2.1 L Triglycerides LDL Cholesterol Direct HDL Cholesterol Urine Creatinine Urine Total Protein 07/27/22 07/27/22 07/27/22 08:22 09:30 10:49 WBC RBC Hgb Hct MCV MCHC RDW Plt Count Lymph % (Auto) Lymph # (Auto) [place] # (Auto) Seg Neutrophils % Seg Neuts % (Manual) Lymphocytes % (Manual) Seg Neutrophils # Seg Neutrophils # Man Lymphocytes # (Manual) ABG pH ABG pO2 ABG HCO3 ABG O2 Saturation ABG Base Excess ABG Hemoglobin Oxyhemoglobin Sodium Potassium Chloride Carbon Dioxide BUN Creatinine Glucose POC Glucose 146 H 153 H 163 H Hemoglobin A1c Lactic Acid Calcium Phosphorus Magnesium AST ALT Ammonia Troponin T C-Reactive Protein Total Protein Albumin Triglycerides LDL Cholesterol Direct HDL Cholesterol Urine Creatinine Urine Total Protein 07/27/22 07/27/22 07/27/22 12:13 12:44 17:17 WBC RBC Hgb Hct MCV MCHC RDW Plt Count Lymph % (Auto) Lymph # (Auto) [place] # (Auto) Seg Neutrophils % Seg Neuts % (Manual) Lymphocytes % (Manual) Seg Neutrophils # Seg Neutrophils # Man Lymphocytes # (Manual) ABG pH ABG pO2 ABG HCO3 ABG O2 Saturation ABG Base Excess ABG Hemoglobin Oxyhemoglobin Sodium Potassium Chloride Carbon Dioxide BUN Creatinine Glucose POC Glucose 190 H 287 H Hemoglobin A1c 12.3 H Lactic Acid Calcium Phosphorus Magnesium AST ALT Ammonia Troponin T C-Reactive Protein Total Protein Albumin Triglycerides LDL Cholesterol Direct HDL Cholesterol Urine Creatinine Urine Total Protein 07/28/22 07/28/22 07/28/22 00:22 03:58 04:05 WBC RBC Hgb Hct MCV MCHC RDW Plt Count Lymph % (Auto) Lymph # (Auto) [place] # (Auto) Seg Neutrophils % Seg Neuts % (Manual) Lymphocytes % (Manual) Seg Neutrophils # Seg Neutrophils # Man Lymphocytes # (Manual) ABG pH ABG pO2 171.2 H ABG HCO3 12.3 L ABG O2 Saturation 99.2 H ABG Base Excess -9.7 L ABG Hemoglobin 10.9 L Oxyhemoglobin Sodium 148 H Potassium Chloride 117.0 H Carbon Dioxide 16 L BUN 74 H Creatinine 3.2 H Glucose 471 H POC Glucose 379 H Hemoglobin A1c Lactic Acid Calcium 6.2 L Phosphorus Magnesium AST ALT Ammonia Troponin T C-Reactive Protein Total Protein Albumin Triglycerides LDL Cholesterol Direct HDL Cholesterol Urine Creatinine Urine Total Protein 07/28/22 07/28/22 07/28/22 04:05 05:36 12:50 WBC 13.9 H RBC Hgb 11.2 L Hct MCV MCHC 31 L RDW 15.9 H Plt Count 48 L Lymph % (Auto) Lymph # (Auto) [place] # (Auto) Seg Neutrophils % Seg Neuts % (Manual) Lymphocytes % (Manual) Seg Neutrophils # Seg Neutrophils # Man Lymphocytes # (Manual) ABG pH ABG pO2 ABG HCO3 ABG O2 Saturation ABG Base Excess ABG Hemoglobin Oxyhemoglobin Sodium Potassium Chloride Carbon Dioxide BUN Creatinine Glucose POC Glucose 390 H 399 H Hemoglobin A1c Lactic Acid Calcium Phosphorus Magnesium AST ALT Ammonia Troponin T C-Reactive Protein Total Protein Albumin Triglycerides LDL Cholesterol Direct HDL Cholesterol Urine Creatinine Urine Total Protein 07/28/22 07/28/22 07/28/22 17:27 18:16 23:31 WBC RBC Hgb Hct MCV MCHC RDW Plt Count Lymph % (Auto) Lymph # (Auto) [place] # (Auto) Seg Neutrophils % Seg Neuts % (Manual) Lymphocytes % (Manual) Seg Neutrophils # Seg Neutrophils # Man Lymphocytes # (Manual) ABG pH ABG pO2 ABG HCO3 ABG O2 Saturation ABG Base Excess ABG Hemoglobin Oxyhemoglobin Sodium Potassium Chloride Carbon Dioxide BUN Creatinine Glucose POC Glucose 434 H 331 H Hemoglobin A1c Lactic Acid Calcium Phosphorus 2.00 L D Magnesium AST ALT Ammonia Troponin T C-Reactive Protein Total Protein Albumin Triglycerides LDL Cholesterol Direct HDL Cholesterol Urine Creatinine Urine Total Protein 07/29/22 07/29/22 07/29/22 04:47 05:30 06:10 WBC RBC Hgb Hct MCV MCHC RDW Plt Count Lymph % (Auto) Lymph # (Auto) [place] # (Auto) Seg Neutrophils % Seg Neuts % (Manual) Lymphocytes % (Manual) Seg Neutrophils # Seg Neutrophils # Man Lymphocytes # (Manual) ABG pH 7.498 H ABG pO2 166.4 H ABG HCO3 16.2 L ABG O2 Saturation 99.1 H ABG Base Excess -5.4 L ABG Hemoglobin 10.7 L Oxyhemoglobin Sodium 151 H Potassium 3.5 L D Chloride 120.4 H Carbon Dioxide 17 L BUN 80 H Creatinine 2.8 H Glucose 303 H POC Glucose 261 H Hemoglobin A1c Lactic Acid Calcium 6.9 L Phosphorus Magnesium AST ALT Ammonia Troponin T C-Reactive Protein Total Protein Albumin Triglycerides LDL Cholesterol Direct HDL Cholesterol Urine Creatinine Urine Total Protein 07/29/22 07/29/22 07/29/22 09:18 12:31 13:40 WBC 16.0 H RBC Hgb Hct MCV 96 H MCHC 30 L RDW 17.6 H Plt Count 84 L Lymph % (Auto) Lymph # (Auto) [place] # (Auto) Seg Neutrophils % Seg Neuts % (Manual) Lymphocytes % (Manual) Seg Neutrophils # Seg Neutrophils # Man Lymphocytes # (Manual) ABG pH ABG pO2 ABG HCO3 ABG O2 Saturation ABG Base Excess ABG Hemoglobin Oxyhemoglobin Sodium Potassium Chloride Carbon Dioxide BUN Creatinine Glucose POC Glucose 287 H 291 H Hemoglobin A1c Lactic Acid Calcium Phosphorus Magnesium AST ALT Ammonia Troponin T C-Reactive Protein Total Protein Albumin Triglycerides LDL Cholesterol Direct HDL Cholesterol Urine Creatinine Urine Total Protein 07/29/22 07/29/22 07/30/22 17:19 23:57 04:25 WBC RBC Hgb Hct MCV MCHC RDW Plt Count Lymph % (Auto) Lymph # (Auto) [place] # (Auto) Seg Neutrophils % Seg Neuts % (Manual) Lymphocytes % (Manual) Seg Neutrophils # Seg Neutrophils # Man Lymphocytes # (Manual) ABG pH 7.461 H ABG pO2 123.0 H ABG HCO3 18.6 L ABG O2 Saturation ABG Base Excess -4.1 L ABG Hemoglobin 10.8 L Oxyhemoglobin Sodium Potassium Chloride Carbon Dioxide BUN Creatinine Glucose POC Glucose 272 H 205 H Hemoglobin A1c Lactic Acid Calcium Phosphorus Magnesium AST ALT Ammonia Troponin T C-Reactive Protein Total Protein Albumin Triglycerides LDL Cholesterol Direct HDL Cholesterol Urine Creatinine Urine Total Protein 07/30/22 07/30/22 07/30/22 04:42 04:42 05:17 WBC RBC Hgb 11.1 L Hct 33.1 L D MCV MCHC RDW 16.0 H Plt Count 34 L Lymph % (Auto) Lymph # (Auto) [place] # (Auto) Seg Neutrophils % Seg Neuts % (Manual) Lymphocytes % (Manual) Seg Neutrophils # Seg Neutrophils # Man Lymphocytes # (Manual) ABG pH ABG pO2 ABG HCO3 ABG O2 Saturation ABG Base Excess ABG Hemoglobin Oxyhemoglobin Sodium 148 H Potassium 3.2 L Chloride 116.7 H Carbon Dioxide 18 L BUN 69 H Creatinine 2.0 H Glucose 197 H POC Glucose 185 H Hemoglobin A1c Lactic Acid Calcium 6.8 L Phosphorus 1.70 L Magnesium AST ALT Ammonia Troponin T C-Reactive Protein Total Protein Albumin Triglycerides LDL Cholesterol Direct HDL Cholesterol Urine Creatinine Urine Total Protein 07/30/22 07/30/22 07/30/22 11:41 16:14 23:07 WBC RBC Hgb Hct MCV MCHC RDW Plt Count Lymph % (Auto) Lymph # (Auto) [place] # (Auto) Seg Neutrophils % Seg Neuts % (Manual) Lymphocytes % (Manual) Seg Neutrophils # Seg Neutrophils # Man Lymphocytes # (Manual) ABG pH ABG pO2 ABG HCO3 ABG O2 Saturation ABG Base Excess ABG Hemoglobin Oxyhemoglobin Sodium Potassium Chloride Carbon Dioxide BUN Creatinine Glucose POC Glucose 199 H 173 H 159 H Hemoglobin A1c Lactic Acid Calcium Phosphorus Magnesium AST ALT Ammonia Troponin T C-Reactive Protein Total Protein Albumin Triglycerides LDL Cholesterol Direct HDL Cholesterol Urine Creatinine Urine Total Protein 07/31/22 07/31/22 07/31/22 03:25 04:00 04:13 WBC RBC Hgb 10.5 L Hct 32.8 L MCV MCHC RDW 15.3 H Plt Count 55 L Lymph % (Auto) Lymph # (Auto) [place] # (Auto) Seg Neutrophils % Seg Neuts % (Manual) Lymphocytes % (Manual) Seg Neutrophils # Seg Neutrophils # Man Lymphocytes # (Manual) ABG pH 7.513 H ABG pO2 64.1 L ABG HCO3 ABG O2 Saturation ABG Base Excess ABG Hemoglobin 10.5 L Oxyhemoglobin 93.8 L Sodium 146 H Potassium 3.4 L Chloride 112.5 H Carbon Dioxide 21 L BUN 53 H Creatinine 1.6 H Glucose 151 H POC Glucose Hemoglobin A1c Lactic Acid Calcium 6.4 L Phosphorus Magnesium AST ALT Ammonia Troponin T C-Reactive Protein Total Protein Albumin Triglycerides LDL Cholesterol Direct HDL Cholesterol Urine Creatinine Urine Total Protein 09/12/22 09/12/22 09/12/22 05:39 11:08 16:11 WBC RBC Hgb Hct MCV MCHC RDW Plt Count Lymph % (Auto) Lymph # (Auto) [place] # (Auto) Seg Neutrophils % Seg Neuts % (Manual) Lymphocytes % (Manual) Seg Neutrophils # Seg Neutrophils # Man Lymphocytes # (Manual) ABG pH ABG pO2 ABG HCO3 ABG O2 Saturation ABG Base Excess ABG Hemoglobin Oxyhemoglobin Sodium Potassium Chloride Carbon Dioxide BUN Creatinine Glucose POC Glucose 155 H 132 H 150 H Hemoglobin A1c Lactic Acid Calcium Phosphorus Magnesium AST ALT Ammonia Troponin T C-Reactive Protein Total Protein Albumin Triglycerides LDL Cholesterol Direct HDL Cholesterol Urine Creatinine Urine Total Protein 07/31/22 08/01/22 08/01/22 23:48 04:17 04:17 WBC RBC 3.62 L Hgb 10.6 L Hct 31.8 L MCV MCHC RDW 15.7 H Plt Count 90 L Lymph % (Auto) Lymph # (Auto) [place] # (Auto) Seg Neutrophils % Seg Neuts % (Manual) Lymphocytes % (Manual) Seg Neutrophils # Seg Neutrophils # Man Lymphocytes # (Manual) ABG pH ABG pO2 ABG HCO3 ABG O2 Saturation ABG Base Excess ABG Hemoglobin Oxyhemoglobin Sodium 147 H Potassium 3.3 L Chloride 113.7 H Carbon Dioxide BUN 46 H Creatinine Glucose 141 H POC Glucose 133 H Hemoglobin A1c Lactic Acid Calcium 6.0 L Phosphorus 2.00 L Magnesium 1.50 L AST ALT Ammonia Troponin T C-Reactive Protein Total Protein Albumin Triglycerides LDL Cholesterol Direct HDL Cholesterol Urine Creatinine Urine Total Protein 08/01/22 08/01/22 08/01/22 05:46 11:17 17:44 WBC RBC Hgb Hct MCV MCHC RDW Plt Count Lymph % (Auto) Lymph # (Auto) [place] # (Auto) Seg Neutrophils % Seg Neuts % (Manual) Lymphocytes % (Manual) Seg Neutrophils # Seg Neutrophils # Man Lymphocytes # (Manual) ABG pH ABG pO2 ABG HCO3 ABG O2 Saturation ABG Base Excess ABG Hemoglobin Oxyhemoglobin Sodium Potassium Chloride Carbon Dioxide BUN Creatinine Glucose POC Glucose 116 H 190 H 179 H Hemoglobin A1c Lactic Acid Calcium Phosphorus Magnesium AST ALT Ammonia Troponin T C-Reactive Protein Total Protein Albumin Triglycerides LDL Cholesterol Direct HDL Cholesterol Urine Creatinine Urine Total Protein 08/01/22 08/02/22 08/02/22 23:34 04:48 04:48 WBC RBC 3.61 L Hgb 10.2 L Hct 31.9 L MCV MCHC RDW 15.8 H Plt Count 130 L Lymph % (Auto) Lymph # (Auto) [place] # (Auto) Seg Neutrophils % Seg Neuts % (Manual) Lymphocytes % (Manual) Seg Neutrophils # Seg Neutrophils # Man Lymphocytes # (Manual) ABG pH ABG pO2 ABG HCO3 ABG O2 Saturation ABG Base Excess ABG Hemoglobin Oxyhemoglobin Sodium 148 H Potassium 3.4 L Chloride 113.1 H Carbon Dioxide 16 L BUN 45 H Creatinine Glucose 213 H POC Glucose 193 H Hemoglobin A1c Lactic Acid Calcium 5.9 L* Phosphorus 2.30 L Magnesium AST ALT Ammonia Troponin T C-Reactive Protein Total Protein Albumin Triglycerides LDL Cholesterol Direct HDL Cholesterol Urine Creatinine Urine Total Protein 08/02/22 08/02/22 08/02/22 05:38 23:04 23:30 WBC RBC Hgb Hct MCV MCHC RDW Plt Count Lymph % (Auto) Lymph # (Auto) [place] # (Auto) Seg Neutrophils % Seg Neuts % (Manual) Lymphocytes % (Manual) Seg Neutrophils # Seg Neutrophils # Man Lymphocytes # (Manual) ABG pH ABG pO2 ABG HCO3 ABG O2 Saturation ABG Base Excess ABG Hemoglobin Oxyhemoglobin Sodium Potassium Chloride Carbon Dioxide BUN Creatinine Glucose POC Glucose 193 H 65 L 111 H Hemoglobin A1c Lactic Acid Calcium Phosphorus Magnesium AST ALT Ammonia Troponin T C-Reactive Protein Total Protein Albumin Triglycerides LDL Cholesterol Direct HDL Cholesterol Urine Creatinine Urine Total Protein 08/03/22 08/03/22 08/03/22 03:35 04:40 04:40 WBC 12.7 H RBC 3.36 L Hgb 9.5 L Hct 29.8 L MCV MCHC RDW 15.7 H Plt Count Lymph % (Auto) Lymph # (Auto) [place] # (Auto) Seg Neutrophils % Seg Neuts % (Manual) Lymphocytes % (Manual) Seg Neutrophils # Seg Neutrophils # Man Lymphocytes # (Manual) ABG pH 7.500 H ABG pO2 129.6 H ABG HCO3 ABG O2 Saturation ABG Base Excess ABG Hemoglobin 9.7 L Oxyhemoglobin Sodium Potassium 3.3 L Chloride 107.9 H Carbon Dioxide 21 L BUN 37 H Creatinine Glucose 111 H POC Glucose Hemoglobin A1c Lactic Acid Calcium 5.5 L* Phosphorus Magnesium 1.60 L AST ALT Ammonia Troponin T C-Reactive Protein Total Protein Albumin Triglycerides LDL Cholesterol Direct HDL Cholesterol Urine Creatinine Urine Total Protein 08/03/22 08/03/2222 05:24 17:18 00:17 WBC RBC Hgb Hct MCV MCHC RDW Plt Count Lymph % (Auto) Lymph # (Auto) [place] # (Auto) Seg Neutrophils % Seg Neuts % (Manual) Lymphocytes % (Manual) Seg Neutrophils # Seg Neutrophils # Man Lymphocytes # (Manual) ABG pH ABG pO2 ABG HCO3 ABG O2 Saturation ABG Base Excess ABG Hemoglobin Oxyhemoglobin Sodium Potassium Chloride Carbon Dioxide BUN Creatinine Glucose POC Glucose 115 H 111 H 64 L Hemoglobin A1c Lactic Acid Calcium Phosphorus Magnesium AST ALT Ammonia Troponin T C-Reactive Protein Total Protein Albumin Triglycerides LDL Cholesterol Direct HDL Cholesterol Urine Creatinine Urine Total Protein 08/04/22 08/04/22 08/04/22 04:39 04:39 05:36 WBC 14.2 H RBC 3.61 L Hgb 10.3 L Hct 31.2 L MCV MCHC RDW 15.4 H Plt Count Lymph % (Auto) Lymph # (Auto) [place] # (Auto) Seg Neutrophils % Seg Neuts % (Manual) Lymphocytes % (Manual) Seg Neutrophils # Seg Neutrophils # Man Lymphocytes # (Manual) ABG pH ABG pO2 ABG HCO3 ABG O2 Saturation ABG Base Excess ABG Hemoglobin Oxyhemoglobin Sodium Potassium 3.1 L Chloride Carbon Dioxide 18 L BUN 30 H Creatinine Glucose 68 L POC Glucose 68 L Hemoglobin A1c Lactic Acid Calcium 6.1 L Phosphorus 2.00 L D Magnesium AST ALT Ammonia Troponin T C-Reactive Protein Total Protein Albumin Triglycerides LDL Cholesterol Direct HDL Cholesterol Urine Creatinine Urine Total Protein 08/04/22 08/04/22 08/04/22 06:32 11:37 17:53 WBC RBC Hgb Hct MCV MCHC RDW Plt Count Lymph % (Auto) Lymph # (Auto) [place] # (Auto) Seg Neutrophils % Seg Neuts % (Manual) Lymphocytes % (Manual) Seg Neutrophils # Seg Neutrophils # Man Lymphocytes # (Manual) ABG pH ABG pO2 ABG HCO3 ABG O2 Saturation ABG Base Excess ABG Hemoglobin Oxyhemoglobin Sodium Potassium Chloride Carbon Dioxide BUN Creatinine Glucose POC Glucose 110 H 118 H 171 H Hemoglobin A1c Lactic Acid Calcium Phosphorus Magnesium AST ALT Ammonia Troponin T C-Reactive Protein Total Protein Albumin Triglycerides LDL Cholesterol Direct HDL Cholesterol Urine Creatinine Urine Total Protein 08/04/22 08/04/22 08/05/22 23:41 23:43 04:46 WBC 12.5 H RBC Hgb 10.8 L Hct 33.3 L MCV MCHC RDW 15.8 H Plt Count 138 L Lymph % (Auto) Lymph # (Auto) [place] # (Auto) Seg Neutrophils % Seg Neuts % (Manual) Lymphocytes % (Manual) Seg Neutrophils # Seg Neutrophils # Man Lymphocytes # (Manual) ABG pH ABG pO2 ABG HCO3 ABG O2 Saturation ABG Base Excess ABG Hemoglobin Oxyhemoglobin Sodium Potassium Chloride Carbon Dioxide BUN Creatinine Glucose POC Glucose 226 H 218 H Hemoglobin A1c Lactic Acid Calcium Phosphorus Magnesium AST ALT Ammonia Troponin T C-Reactive Protein Total Protein Albumin Triglycerides LDL Cholesterol Direct HDL Cholesterol Urine Creatinine Urine Total Protein 08/05/22 08/05/22 08/05/22 04:46 06:05 11:42 WBC RBC Hgb Hct MCV MCHC RDW Plt Count Lymph % (Auto) Lymph # (Auto) [place] # (Auto) Seg Neutrophils % Seg Neuts % (Manual) Lymphocytes % (Manual) Seg Neutrophils # Seg Neutrophils # Man Lymphocytes # (Manual) ABG pH ABG pO2 ABG HCO3 ABG O2 Saturation ABG Base Excess ABG Hemoglobin Oxyhemoglobin Sodium Potassium Chloride Carbon Dioxide 16 L BUN 29 H Creatinine Glucose 179 H POC Glucose 220 H 180 H Hemoglobin A1c Lactic Acid Calcium 6.1 L Phosphorus Magnesium AST ALT Ammonia Troponin T C-Reactive Protein Total Protein Albumin Triglycerides LDL Cholesterol Direct HDL Cholesterol Urine Creatinine Urine Total Protein 08/05/22 08/05/22 08/05/22 17:39 21:10 21:43 WBC RBC Hgb Hct MCV MCHC RDW Plt Count Lymph % (Auto) Lymph # (Auto) [place] # (Auto) Seg Neutrophils % Seg Neuts % (Manual) Lymphocytes % (Manual) Seg Neutrophils # Seg Neutrophils # Man Lymphocytes # (Manual) ABG pH ABG pO2 ABG HCO3 ABG O2 Saturation ABG Base Excess ABG Hemoglobin Oxyhemoglobin Sodium Potassium Chloride Carbon Dioxide BUN Creatinine Glucose POC Glucose 207 H 185 H Hemoglobin A1c Lactic Acid Calcium Phosphorus Magnesium AST ALT Ammonia Troponin T C-Reactive Protein 21.50 H Total Protein Albumin Triglycerides LDL Cholesterol Direct HDL Cholesterol Urine Creatinine Urine Total Protein 08/05/22 08/06/22 08/06/22 23:38 05:13 05:20 WBC RBC 3.32 L Hgb 9.4 L Hct 29.4 L MCV MCHC RDW 15.6 H Plt Count Lymph % (Auto) Lymph # (Auto) [place] # (Auto) Seg Neutrophils % Seg Neuts % (Manual) Lymphocytes % (Manual) Seg Neutrophils # Seg Neutrophils # Man Lymphocytes # (Manual) ABG pH ABG pO2 ABG HCO3 ABG O2 Saturation ABG Base Excess ABG Hemoglobin Oxyhemoglobin Sodium Potassium Chloride Carbon Dioxide BUN Creatinine Glucose POC Glucose 198 H 182 H Hemoglobin A1c Lactic Acid Calcium Phosphorus Magnesium AST ALT Ammonia Troponin T C-Reactive Protein Total Protein Albumin Triglycerides LDL Cholesterol Direct HDL Cholesterol Urine Creatinine Urine Total Protein 08/06/22 08/06/22 08/06/22 05:20 11:25 16:13 WBC RBC Hgb Hct MCV MCHC RDW Plt Count Lymph % (Auto) Lymph # (Auto) [place] # (Auto) Seg Neutrophils % Seg Neuts % (Manual) Lymphocytes % (Manual) Seg Neutrophils # Seg Neutrophils # Man Lymphocytes # (Manual) ABG pH ABG pO2 ABG HCO3 ABG O2 Saturation ABG Base Excess ABG Hemoglobin Oxyhemoglobin Sodium Potassium Chloride 107.2 H Carbon Dioxide 21 L BUN 25 H Creatinine Glucose 176 H POC Glucose 155 H 176 H Hemoglobin A1c Lactic Acid Calcium 6.1 L Phosphorus 1.80 L D Magnesium 1.60 L AST ALT Ammonia Troponin T C-Reactive Protein Total Protein Albumin Triglycerides LDL Cholesterol Direct HDL Cholesterol Urine Creatinine Urine Total Protein 08/06/22 08/06/22 08/07/22 21:34 23:22 00:02 WBC RBC 2.98 L Hgb 8.4 L Hct 26.2 L MCV MCHC RDW 15.5 H Plt Count Lymph % (Auto) 11.3 L Lymph # (Auto) 0.9 L [place] # (Auto) Seg Neutrophils % 81.9 H Seg Neuts % (Manual) Lymphocytes % (Manual) Seg Neutrophils # Seg Neutrophils # Man Lymphocytes # (Manual) ABG pH ABG pO2 ABG HCO3 ABG O2 Saturation ABG Base Excess ABG Hemoglobin Oxyhemoglobin Sodium Potassium Chloride Carbon Dioxide BUN Creatinine Glucose POC Glucose 206 H 188 H Hemoglobin A1c Lactic Acid Calcium Phosphorus Magnesium AST ALT Ammonia Troponin T C-Reactive Protein Total Protein Albumin Triglycerides LDL Cholesterol Direct HDL Cholesterol Urine Creatinine Urine Total Protein 08/07/22 08/07/22 08/07/22 04:16 04:16 04:49 WBC RBC 3.12 L Hgb 8.8 L Hct 27.4 L MCV MCHC RDW 15.4 H Plt Count Lymph % (Auto) 10.6 L Lymph # (Auto) 0.9 L [place] # (Auto) Seg Neutrophils % 83.1 H Seg Neuts % (Manual) Lymphocytes % (Manual) Seg Neutrophils # Seg Neutrophils # Man Lymphocytes # (Manual) ABG pH ABG pO2 ABG HCO3 ABG O2 Saturation ABG Base Excess ABG Hemoglobin Oxyhemoglobin Sodium Potassium 3.4 L Chloride 107.8 H Carbon Dioxide BUN 21 H Creatinine Glucose 216 H POC Glucose 192 H Hemoglobin A1c Lactic Acid Calcium 6.1 L Phosphorus 2.00 L Magnesium AST 76 H ALT Ammonia Troponin T C-Reactive Protein Total Protein 5.1 L Albumin 1.8 L Triglycerides LDL Cholesterol Direct HDL Cholesterol Urine Creatinine Urine Total Protein 08/07/22 08/07/22 08/07/22 11:28 16:15 22:16 WBC RBC Hgb Hct MCV MCHC RDW Plt Count Lymph % (Auto) Lymph # (Auto) [place] # (Auto) Seg Neutrophils % Seg Neuts % (Manual) Lymphocytes % (Manual) Seg Neutrophils # Seg Neutrophils # Man Lymphocytes # (Manual) ABG pH ABG pO2 ABG HCO3 ABG O2 Saturation ABG Base Excess ABG Hemoglobin Oxyhemoglobin Sodium Potassium Chloride Carbon Dioxide BUN Creatinine Glucose POC Glucose 204 H 203 H 175 H Hemoglobin A1c Lactic Acid Calcium Phosphorus Magnesium AST ALT Ammonia Troponin T C-Reactive Protein Total Protein Albumin Triglycerides LDL Cholesterol Direct HDL Cholesterol Urine Creatinine Urine Total Protein 08/08/22 08/08/22 08/08/22 00:01 04:46 04:46 WBC RBC 3.16 L Hgb 8.9 L Hct 27.4 L MCV MCHC RDW 15.5 H Plt Count Lymph % (Auto) Lymph # (Auto) [place] # (Auto) Seg Neutrophils % Seg Neuts % (Manual) Lymphocytes % (Manual) Seg Neutrophils # Seg Neutrophils # Man Lymphocytes # (Manual) ABG pH ABG pO2 ABG HCO3 ABG O2 Saturation ABG Base Excess ABG Hemoglobin Oxyhemoglobin Sodium Potassium Chloride Carbon Dioxide BUN Creatinine Glucose 200 H POC Glucose 183 H Hemoglobin A1c Lactic Acid Calcium 6.3 L Phosphorus Magnesium AST 81 H ALT Ammonia Troponin T C-Reactive Protein Total Protein 5.1 L Albumin 1.7 L Triglycerides LDL Cholesterol Direct HDL Cholesterol Urine Creatinine Urine Total Protein 08/08/22 08/08/22 08/08/22 06:14 11:27 16:41 WBC RBC Hgb Hct MCV MCHC RDW Plt Count Lymph % (Auto) Lymph # (Auto) [place] # (Auto) Seg Neutrophils % Seg Neuts % (Manual) Lymphocytes % (Manual) Seg Neutrophils # Seg Neutrophils # Man Lymphocytes # (Manual) ABG pH ABG pO2 ABG HCO3 ABG O2 Saturation ABG Base Excess ABG Hemoglobin Oxyhemoglobin Sodium Potassium Chloride Carbon Dioxide BUN Creatinine Glucose POC Glucose 206 H 196 H 199 H Hemoglobin A1c Lactic Acid Calcium Phosphorus Magnesium AST ALT Ammonia Troponin T C-Reactive Protein Total Protein Albumin Triglycerides LDL Cholesterol Direct HDL Cholesterol Urine Creatinine Urine Total Protein 08/08/22 08/08/22 08/09/22 22:50 23:52 04:53 WBC RBC 3.00 L Hgb 8.4 L Hct 26.4 L MCV MCHC RDW 15.7 H Plt Count Lymph % (Auto) Lymph # (Auto) [place] # (Auto) Seg Neutrophils % Seg Neuts % (Manual) Lymphocytes % (Manual) Seg Neutrophils # Seg Neutrophils # Man Lymphocytes # (Manual) ABG pH ABG pO2 ABG HCO3 ABG O2 Saturation ABG Base Excess ABG Hemoglobin Oxyhemoglobin Sodium Potassium Chloride Carbon Dioxide BUN Creatinine Glucose POC Glucose 198 H 226 H Hemoglobin A1c Lactic Acid Calcium Phosphorus Magnesium AST ALT Ammonia Troponin T C-Reactive Protein Total Protein Albumin Triglycerides LDL Cholesterol Direct HDL Cholesterol Urine Creatinine Urine Total Protein 08/09/22 08/09/22 08/09/22 04:53 05:38 11:29 WBC RBC Hgb Hct MCV MCHC RDW Plt Count Lymph % (Auto) Lymph # (Auto) [place] # (Auto) Seg Neutrophils % Seg Neuts % (Manual) Lymphocytes % (Manual) Seg Neutrophils # Seg Neutrophils # Man Lymphocytes # (Manual) ABG pH ABG pO2 ABG HCO3 ABG O2 Saturation ABG Base Excess ABG Hemoglobin Oxyhemoglobin Sodium Potassium 3.5 L Chloride Carbon Dioxide BUN Creatinine Glucose 181 H POC Glucose 160 H 174 H Hemoglobin A1c Lactic Acid Calcium 6.2 L Phosphorus Magnesium AST ALT Ammonia Troponin T C-Reactive Protein Total Protein Albumin Triglycerides LDL Cholesterol Direct HDL Cholesterol Urine Creatinine Urine Total Protein 08/09/22 08/09/22 08/10/22 16:11 17:31 00:55 WBC RBC Hgb 8.7 L Hct 27.6 L MCV MCHC RDW Plt Count Lymph % (Auto) Lymph # (Auto) [place] # (Auto) Seg Neutrophils % Seg Neuts % (Manual) Lymphocytes % (Manual) Seg Neutrophils # Seg Neutrophils # Man Lymphocytes # (Manual) ABG pH ABG pO2 ABG HCO3 ABG O2 Saturation ABG Base Excess ABG Hemoglobin Oxyhemoglobin Sodium Potassium Chloride Carbon Dioxide BUN Creatinine Glucose POC Glucose 205 H 204 H Hemoglobin A1c Lactic Acid Calcium Phosphorus Magnesium AST ALT Ammonia Troponin T C-Reactive Protein Total Protein Albumin Triglycerides LDL Cholesterol Direct HDL Cholesterol Urine Creatinine Urine Total Protein 08/10/22 08/10/22 08/10/22 05:03 05:03 06:26 WBC RBC 2.92 L Hgb 8.4 L Hct 25.6 L MCV MCHC RDW 15.7 H Plt Count Lymph % (Auto) Lymph # (Auto) [place] # (Auto) Seg Neutrophils % Seg Neuts % (Manual) Lymphocytes % (Manual) Seg Neutrophils # Seg Neutrophils # Man Lymphocytes # (Manual) ABG pH ABG pO2 ABG HCO3 ABG O2 Saturation ABG Base Excess ABG Hemoglobin Oxyhemoglobin Sodium Potassium Chloride Carbon Dioxide BUN Creatinine Glucose 161 H POC Glucose 177 H Hemoglobin A1c Lactic Acid Calcium 6.6 L Phosphorus Magnesium AST ALT Ammonia Troponin T C-Reactive Protein Total Protein Albumin Triglycerides LDL Cholesterol Direct HDL Cholesterol Urine Creatinine Urine Total Protein
--- NOTE | 2022-08-10 11:07 | Progress Note ---
Assessment and Plan Assessment, plan. SIRS/sepsis: Initially secondary to Klebsiella pneumonia. Now with new fever since 08/04/2022 associated with new blistering rash and increasing tracheal secretions, likely HAP +/- allergic reaction +/- central fever. Bilateral pneumonia: Initially grew Klebsiella treated with cefepime for 7 days on June 02, 2022. Chest x-ray with worsening pneumonia. Blistering rash: Extensive blistery rash in lower extremities and arms. ? Star Sumeet's vs skin soft tissue infection. CRP 21 Acute respiratory failure: Status post trach and PEG. On the ventilator. Encephalopathy/CVA: ? Hepatic encephalopathy FREDI resolved Recommendations: Eosinophilia improved Skin biopsy may be necessary Follow-up repeat blood cultures Continue meropenem 1 g IV every 8 hours. Plan 8 days. Eder Ngo MD [facility] O: [phone] F: [phone] Subjective Date of service: 08/10/22 Principal diagnosis: Hypernatremia, ARF Interval history: Afebrile, normal white count. Objective - Exam Narrative Exam: Physical Exam: Constitutional: Intubated, sedated Head, Ears, Nose: Normocephalic, atraumatic. External ears, nose normal Eyes: Conjunctivae/corneas clear. No icterus. No ptosis. Neck: Supple, no meningeal signs Oral: ETT Cardiovascular: S1, S2 normal. Respiratory: Good air entry, clear to auscultation bilaterally GI: Soft, non-tender; bowel sounds normal. No peritoneal signs. Musculoskeletal: No pedal edema, no cyanosis. Skin: No rash or abscess Hem/Lymphatic: No palpable cervical or supraclavicular nodes. No lymphangitis Psych: Sedated Neurological: Sedated - Constitutional Vitals: Vital Signs Temp Pulse Resp BP Pulse Ox 99.9 F H 101 H 48 H 142/82 100 08/10/22 04:00 08/10/22 09:09 08/10/22 09:09 08/10/22 09:09 08/10/22 09:09 Temperature -Last 24 Hours Temperature 99.9 F Temperature 99.7 F Temperature 99.5 F Temperature 99.0 F Temperature 99.7 F - Labs CBC & Chem 7: 08/10/22 05:03 08/10/22 05:03 Labs: Abnormal lab results 08/09/22 08/09/22 08/09/22 Range/Units 11:29 16:11 17:31 RBC (3.65-5.03) M/mm3 Hgb 8.7 L (11.8-15.2) gm/dl Hct 27.6 L (35.5-45.6) % RDW (13.2-15.2) % Glucose (75-100) mg/dL POC Glucose 174 H 205 H (70-105) mg/dL Calcium (8.4-10.2) mg/dL 08/10/22 08/10/22 08/10/22 Range/Units 00:55 05:03 05:03 RBC 2.92 L (3.65-5.03) M/mm3 Hgb 8.4 L (11.8-15.2) gm/dl Hct 25.6 L (35.5-45.6) % RDW 15.7 H (13.2-15.2) % Glucose 161 H (75-100) mg/dL POC Glucose 204 H (70-105) mg/dL Calcium 6.6 L (8.4-10.2) mg/dL 08/10/22 Range/Units 06:26 RBC (3.65-5.03) M/mm3 Hgb (11.8-15.2) gm/dl Hct (35.5-45.6) % RDW (13.2-15.2) % Glucose (75-100) mg/dL POC Glucose 177 H (70-105) mg/dL Calcium (8.4-10.2) mg/dL
--- NOTE | 2022-08-10 15:42 | Progress Note ---
Assessment and Plan Assessment and plan: Assessment/ Plan This is a 77-year-old male with DM, paroxysmal atrial fibrillation, HTN, CVA (2020) admitted s/p cardiac arrest with acute hypoxic respiratory failure and DKA Neuro: Acute metabolic encephalopathy, hepatic encephalopathy, ALEC ,subclinical status epilepticus ruled out, h/o CVA (2019) -Sluggish pupils, no cough/gag, periodic spontaneous respiration -Neurology consulted, appreciate recommendations -Initial CT head with no acute abnormality -EEG is Likely compatible with diffuse encephalopathy -Per neurology aim for euglycemia and permissive hypertension for now -Ammonia 64 -MRI brain shows diffuse diffusion abnormality involving cerebral and cerebellum compatible with diffuse hypoxia given the patient's history, interval evolving of left SHAPE BRICK MOLDER infarct from 02/16/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 Cardiac: S/p cardiac arrest, A. fib RVR, h/o hypertension, paroxysmal atrial fibrillation, hyperlipidemia -Patient suffered cardiac arrest on 07/25 in the ED and then was noted to be in A. fib with RVR -Amiodarone PO -Cardiology consulted, appreciate recommendations -Blood pressure monitoring per protocol -S/p vasopressor support with Levophed and vasopressin -MAP goal greater than 65 -Echocardiogram shows EF 50 to 60%, no pericardial effusion -Lipitor Respiratory: Acute hypoxic respiratory failure -CCM consulted, appreciate recommendations -Intubated on 07/25 with a 8.00 ETT in the ED -08/02 s/p trach and peg exchange -A.m. vent settings: CPAP 10/24 -See RT notes for titration -A.m. ABG and CXR noted -VAP bundle -SPO2 monitoring GI: Protein calorie malnutrition, GIB -GI consulted, appreciate recommendation -NTR consult for tube feeding -08/02 peg exchange -PPI : Acute kidney injury likely secondary to vasomotor nephropathy (resolved), hypokalemia, hypophosphatemia -S/p 5 L LR bolus -Nephrology consulted, appreciate recommendations -Serum creatinine 03/08/2020 was 1.3 -Monitor intake and output -Renally dose medications -Avoid nephrotoxic medications -FeNa 1.8% -FWF -Renal ultrasound noted -Trend BMP ID: Sepsis, Klebsiella pneumonia -Hypotension, acute kidney injury, acute respiratory failure, lactic acidosis -Antibiotic therapy merrem -MRSA PCR negative -vancomycin dc -s/p solu-cortef -f/u blood culture -Monitor WBC and temperature curve Endo: s/p DKA, h/o DM -Presented with anion gap of 21, glucose of 761, VBG 7.362 -s/p Insulin drip -Accu-Cheks q6hr -SSI -Long-acting insulin, titrate as needed -Hemaglobin A1C 12.3 Heme: NAD -HIT negative -Trend CBC -Transfuse hemoglobin less than 7 -SCDs to BLE while in bed The high probability of a clinically significant, sudden or life threatening deterioration of the [multi] system(s) required my full and direct attention, intervention and personal management. The aggregate critical care time was [60] minutes. This time is in addition to time spent performing reported procedures but includes the following: [x] Data Review and interpretation [x] Patient assessment and monitoring of vital signs [x] Documentation [x] Medication orders and management Disposition Plan: icu Total Time Spent with Patient (Minutes): 60 History Interval history: This is a 77-year-old male who is long term patient at [facility] with DM, paroxysmal atrial fibrillation, HTN, CVA (2020) presents the emergency department on 07/26 via EMS with hypoglycemia and unresponsiveness. In the emergency department patient was deciding 7% on room air and was placed on nonrebreather but sats have increased to greater than 81% and the patient was obtunded therefore ED physician decided to intubate the patient. Per documentation after intubation patient went into PEA arrest and ACLS was initiated and ROSC was achieved after approximately 13 minutes. Work-up in the emergency department revealed leukocytosis, hyponatremia 155, elevated BUN/creatinine at 3.5/74, anion gap metabolic acidosis and hyperglycemia 734. Patient was admitted to the hospital service with consults to cardiology, CCM and nephrology on DKA protocol on mechanical ventilation. Hospital course to date: 07/26: Patient is on any sedation, very sluggish pupillary response, no cough/gag noted, no seizure activity. Neurology recs repeat CT head without contrast or MRI brain without contrast when clinically stable. Patient also had a EEG completed today. Patient is currently maxed on Levophed and vasopressin. Given several LR boluses today. Antibiotics broadened and stress dose steroids added. 07/27: Weaning pressors, phosphorus repleted, SSI and long-acting insulin initiated, tube feeding initiated. Patient now has a hypoactive cough/gag. CT head pending. LR bolus. Thrombocytopenia noted. Cardiology would like to start heparin drip due to atrial fibrillation however would like neurology input prior to. 07/28: Patient remains off of vasopressors, patient had MRI today. Worsening renal function noted. Cardiology will hold off amiodarone due to thrombocytopenia. No acute events reported overnight. 07/29: I had an extensive conversation with son and at bedside to with the help of an motor winder through the engraver wood line. Explained thoroughly of presentation to the ED from documentation, cardiac arrest, CT head and MRI brain findings. They are still electing to continue aggressive care and would like hospital assistance with getting a visa for youngest son to come to the [facility] from [place]. equity manager is aware of request. Steroid taper started. CBC pending. Will be repleted. Hypernatremia improving. 07/30: LR bolus, renal function is improved, thrombocytopenia worse. Likely consult surgery for trach/peg as per family requests to continue care. No acute events overnight. 07/31: Patient's mentation is unchanged. Remains on low vent setting. D/w [facility] general surgery consulted for possible trach and PEG. Renal function is improving, still hypenatremic, continue FWF per Nephrology. K repleted, continue to - Monitor and replace electrolytes as needed. Patient remains in SR on the monitor, VSS. Amiodarone gtt transitioned to PO amio per Cardio. 08/01: Condition unchanged, remains stable on low vent setting. Renal function continue to improve with persistent hypernatremia, continue FWF per Nephro. Gen eral Surgery recommendations noted. D/w General surgery, plan for possible trach and PEG exchange tomorrow or . 08/02: Remains stable on low vent settings. NPO since after midnight for possible trach/PEG today by General Surgery. Patient remains hypernatremic and due to NPO status, FWF was held. Will initiated low dose D5W gtt for now. And also to prevent hypoglycemia while NPO, patient is on Lantus BID. Currently on steroids taper, will hold tonight does and reduce Lantus to Qhs starting tomorrow. Close monitoring of BG and electrolytes. Nephrology is also following. 08/03: S/p trach and PEG exchange. Remains stable on the vent with no complications. Tolerating TF and also Tolerated 2hrs of PSV trial this am. Continue to taper IV steroids, qhs Lantus adjusted to avoid hypoglycemia. Hypernatremia improved, continue FWF per Nephro. Possible LTAC placement, case management to arrange. 08/04: ABRAM overnight. Sodium normalized this morning, electrolytes repleted, continue to monitor and replace electrolytes as needed. Nephrology is also following. Hypoglycemic overnight, TF not yet at goal, will hold Lantus for now. Continue daily PSV trial as tolerated. Possible LTAC placement, case management to arrange. 08/05: Now with thick secretions orally and via ETT, with persistent fevers. This am CXR suggesting possible developing lower lobe PNA. VSS. Will panculture and initiate empiric IV abx- Cefepine. Check CRP and procal. Remove Yañez catheter and follow Yañez removal protocol. ID was also consulted for further recs. TF is now at goal, hyperglycemic today, will resume qhs Lantus. Hyponatremia resolved, FWF adjusted. 08/06: Remains stable on low vent settings. Still with low grade fevers, procal and repeat cultures pending. ID recommendations noted. C/f for possible allergic reaction vs skin infection due to persistent skin blisters. Cefepine switched to Merrem and Vanco. Check CBC with Diff, continue to follow up on cultures. 08/07: No acute events reported overnight, T-max today 102. 08/16: Patient was noted to have blood clots in stool overnight and Lovenox was discontinued but was restarted given stable H&H. CPAP trial today. Vancomycin discontinued. 08/09: Noted to be GI bleeding, anticoagulation stopped. GI consulted. No plans for scope. 08/10: No acute events reported overnight. repeat COVID-19 PCR negative Hospitalist Physical - Physical exam Narrative exam: General appearance: Present: no acute distress, other (Intubated and unresponsive) - EENT Eyes: Absent: PERRL ENT: poor dentition - Neck Neck: Present: normal ROM - Respiratory Respiratory effort: normal Respiratory: bilateral: diminished - Cardiovascular Rhythm: regular Heart Sounds: Present: S1 & S2. Absent: systolic murmur, diastolic murmur - Extremities Extremities: pulses intact, pulses symmetrical Extremity abnormal: edema Peripheral Pulses: within normal limits - Abdominal General gastrointestinal: soft, non-tender, non-distended, normal bowel sounds - Integumentary Integumentary: Present: right hand macerated, leaking fluid - Psychiatric Psychiatric: other - Neurologic Neurologic: other, Pupils not reactive, weak to absent cough/gag, no response to painful stimuli - Allied Health Allied health notes reviewed: nursing, RT, social work - Constitutional Vitals: Temp Pulse Resp BP Pulse Ox 99.8 F H 82 24 149/76 96 08/10/22 12:00 08/10/22 15:00 08/10/22 15:00 08/10/22 15:00 08/10/22 15:00 General appearance: Present: no acute distress, other (Intubated and unres ponsive) HEART Score - HEART Score Troponin: Troponin T 0.049 ng/mL (0.00-0.029) H D 07/26/22 15:36 Results - Labs CBC & Chem 7: 08/10/22 05:03 08/10/22 05:03 Labs: Laboratory Last Values WBC 8.0 K/mm3 (4.5-11.0) 08/10/22 05:03 RBC 2.92 M/mm3 (3.65-5.03) L 08/10/22 05:03 Hgb 8.4 gm/dl (11.8-15.2) L 08/10/22 05:03 Hct 25.6 % (35.5-45.6) L 08/10/22 05:03 MCV 88 fl (84-94) 08/10/22 05:03 MCH 29 pg (28-32) 08/10/22 05:03 MCHC 33 % (32-34) 08/10/22 05:03 RDW 15.7 % (13.2-15.2) H 08/10/22 05:03 Plt Count 209 K/mm3 (140-440) 08/10/22 05:03 Lymph % (Auto) 10.6 % (13.4-35.0) L 08/07/22 04:16 [place] % (Auto) 5.4 % (0.0-7.3) 08/07/22 04:16 Eos % (Auto) 0.7 % (0.0-4.3) 08/07/22 04:16 Baso % (Auto) 0.2 % (0.0-1.8) 08/07/22 04:16 Lymph # (Auto) 0.9 K/mm3 (1.2-5.4) L 08/07/22 04:16 [place] # (Auto) 0.4 K/mm3 (0.0-0.8) 08/07/22 04:16 Eos # (Auto) 0.1 K/mm3 (0.0-0.4) 08/07/22 04:16 Baso # (Auto) 0.0 K/mm3 (0.0-0.1) 08/07/22 04:16 Add Manual Diff Complete 07/27/22 03:50 Total Counted 100 07/27/22 03:50 Seg Neutrophils % 83.1 % (40.0-70.0) H 08/07/22 04:16 Seg Neuts % (Manual) 78.0 % (40.0-70.0) H 07/27/22 03:50 Band Neutrophils % 16.0 % 07/27/22 03:50 Lymphocytes % (Manual) 3.0 % (13.4-35.0) L 07/27/22 03:50 Reactive Lymphs % (Man) 0 % 07/27/22 03:50 Monocytes % (Manual) 2.0 % (0.0-7.3) 07/27/22 03:50 Eosinophils % (Manual) 0 % (0.0-4.3) 07/27/22 03:50 Basophils % (Manual) 0 % (0.0-1.8) 07/27/22 03:50 Metamyelocytes % 1.0 % 07/27/22 03:50 Myelocytes % 0 % 07/27/22 03:50 Promyelocytes % 0 % 07/27/22 03:50 Blast Cells % 0 % 07/27/22 03:50 Nucleated RBC % Not Reportable 07/27/22 03:50 Seg Neutrophils # 6.7 K/mm3 (1.8-7.7) 08/07/22 04:16 Seg Neutrophils # Man 12.0 K/mm3 (1.8-7.7) H 07/27/22 03:50 Band Neutrophils # 2.5 K/mm3 07/27/22 03:50 Lymphocytes # (Manual) 0.5 K/mm3 (1.2-5.4) L 07/27/22 03:50 Abs React Lymphs (Man) 0.0 K/mm3 07/27/22 03:50 Monocytes # (Manual) 0.3 K/mm3 (0.0-0.8) 07/27/22 03:50 Eosinophils # (Manual) 0.0 K/mm3 (0.0-0.4) 07/27/22 03:50 Basophils # (Manual) 0.0 K/mm3 (0.0-0.1) 07/27/22 03:50 Metamyelocytes # 0.2 K/mm3 07/27/22 03:50 Myelocytes # 0.0 K/mm3 07/27/22 03:50 Promyelocytes # 0.0 K/mm3 07/27/22 03:50 Blast Cells # 0.0 K/mm3 07/27/22 03:50 WBC Morphology Not Reportable 07/27/22 03:50 Hypersegmented Neuts Not Reportable 07/27/22 03:50 Hyposegmented Neuts Not Reportable 07/27/22 03:50 Hypogranular Neuts Not Reportable 07/27/22 03:50 Smudge Cells Not Reportable 07/27/22 03:50 Toxic Granulation Not Reportable 07/27/22 03:50 Toxic Vacuolation Not Reportable 07/27/22 03:50 Dohle Bodies Not Reportable 07/27/22 03:50 Pelger-Huet Anomaly Not Reportable 07/27/22 03:50 Jay Rods Not Reportable 07/27/22 03:50 Platelet Estimate Consistent w auto 07/27/22 03:50 Clumped Platelets Not Reportable 07/27/22 03:50 Plt Clumps, EDTA Not Reportable 07/27/22 03:50 Large Platelets Not Reportable 07/27/22 03:50 Giant Platelets Not Reportable 07/27/22 03:50 Platelet Satelliting Not Reportable 07/27/22 03:50 Plt Morphology Comment Not Reportable 07/27/22 03:50 RBC Morphology Not Reportable 07/27/22 03:50 Dimorphic RBCs Not Reportable 07/27/22 03:50 Polychromasia Not Reportable 07/27/22 03:50 Hypochromasia Not Reportable 07/27/22 03:50 Poikilocytosis Not Reportable 07/27/22 03:50 Anisocytosis Not Reportable 07/27/22 03:50 Microcytosis Not Reportable 07/27/22 03:50 Macrocytosis Not Reportable 07/27/22 03:50 Spherocytes Not Reportable 07/27/22 03:50 Pappenheimer Bodies Not Reportable 07/27/22 03:50 Sickle Cells Not Reportable 07/27/22 03:50 Target Cells Not Reportable 07/27/22 03:50 Tear Drop Cells Not Reportable 07/27/22 03:50 Ovalocytes Not Reportable 07/27/22 03:50 Helmet Cells Not Reportable 07/27/22 03:50 Reynolds-Floris Bodies Not Reportable 07/27/22 03:50 [place] Rings Not Reportable 07/27/22 03:50 [place] Cells Not Reportable 07/27/22 03:50 Bite Cells Not Reportable 07/27/22 03:50 Crenated Cell Not Reportable 07/27/22 03:50 Elliptocytes Not Reportable 07/27/22 03:50 Acanthocytes (Spur) Not Reportable 07/27/22 03:50 Rouleaux Not Reportable 07/27/22 03:50 Hemoglobin C Crystals Not Reportable 07/27/22 03:50 Schistocytes Not Reportable 07/27/22 03:50 Malaria parasites Not Reportable 07/27/22 03:50 [place] Bodies Not Reportable 07/27/22 03:50 Hem Pathologist Commnt No 07/27/22 03:50 PT 14.3 Sec. (12.2-14.9) 07/31/22 04:13 INR 0.97 (0.87-1.13) 07/31/22 04:13 Heparin Anti-Xa, Unfract Negative (Negative) 08/01/22 04:17 ABG pH 7.500 pH Units (7.350-7.450) H 08/03/22 03:35 ABG pCO2 26.7 mm Hg 08/03/22 03:35 ABG pO2 129.6 mm Hg (80.0-90.0) H 08/03/22 03:35 ABG HCO3 20.4 mmol/L (20.0-26.0) 08/03/22 03:35 ABG O2 Saturation 98.7 % (95.0-99.0) 08/03/22 03:35 ABG O2 Content 13.5 (0.0-44) 08/03/22 03:35 ABG Base Excess -2.0 mmol/L (-2.0-3.0) 08/03/22 03:35 ABG Hemoglobin 9.7 gm/dl (14.0-18.0) L 08/03/22 03:35 ABG Carboxyhemoglobin 1.5 % (0.0-5.0) 08/03/22 03:35 ABG Methemoglobin 0.4 % (0.0-1.5) 08/03/22 03:35 VBG pH 7.362 (7.320-7.420) 07/25/22 19:37 Oxyhemoglobin 96.8 % (95.0-99.0) 08/03/22 03:35 FiO2 30 % 08/03/22 03:35 Sodium 137 mmol/L (137-145) 08/10/22 05:03 Potassium 4.1 mmol/L (3.6-5.0) 08/10/22 05:03 Chloride 103.0 mmol/L (98-107) 08/10/22 05:03 Carbon Dioxide 24 mmol/L (22-30) 08/10/22 05:03 Anion Gap 14 mmol/L 08/10/22 05:03 BUN 16 mg/dL (9-20) 08/10/22 05:03 Creatinine 1.0 mg/dL (0.8-1.3) 08/10/22 05:03 Estimated GFR > 60 ml/min 08/10/22 05:03 BUN/Creatinine Ratio 16 % 08/10/22 05:03 Glucose 161 mg/dL (75-100) H 08/10/22 05:03 POC Glucose 171 mg/dL (70-105) H 08/10/22 12:17 Hemoglobin A1c 12.3 % (4-6) H 07/27/22 12:13 Lactic Acid 9.70 mmol/L (0.7-2.0) H* 07/26/22 15:36 Calcium 6.6 mg/dL (8.4-10.2) L 08/10/22 05:03 Phosphorus 2.00 mg/dL (2.5-4.5) L 08/07/22 04:16 Magnesium 1.80 mg/dL (1.7-2.3) 08/07/22 04:16 Total Bilirubin 0.30 mg/dL (0.1-1.2) 08/08/22 04:46 Direct Bilirubin < 0.2 mg/dL (0-0.2) 08/08/22 04:46 Indirect Bilirubin 0.1 mg/dL 08/08/22 04:46 AST 81 units/L (5-40) H 08/08/22 04:46 ALT 42 units/L (7-56) 08/08/22 04:46 Alkaline Phosphatase 116 units/L (35-129) 08/08/22 04:46 Ammonia 64.0 umol/L (25-60) H 07/25/22 19:37 Total Creatine Kinase 158 units/L (55-170) 07/25/22 19:37 CK-MB (CK-2) < 1.0 ng/mL (0.0-4.0) 07/25/22 19:37 CK-MB (CK-2) Rel Index 0.6 (0-4) 07/25/22 19:37 Troponin T 0.049 ng/mL (0.00-0.029) H D 07/26/22 15:36 C-Reactive Protein 21.50 mg/dL (0.00-1.30) H 08/05/22 21:43 Total Protein 5.1 g/dL (6.3-8.2) L 08/08/22 04:46 Albumin 1.7 g/dL (3.9-5) L 08/08/22 04:46 Albumin/Globulin Ratio 0.5 % 08/08/22 04:46 Triglycerides 362 mg/dL (2-149) H 07/25/22 19:37 Cholesterol 126 mg/dL (50-199) 07/25/22 19:37 LDL Cholesterol Direct 44 mg/dL (50-130) L 07/25/22 19:37 HDL Cholesterol 34 mg/dL (40-59) L 07/25/22 19:37 Cholesterol/HDL Ratio 3.70 % 07/25/22 19:37 Serotonin Release Assay See scanned result 08/01/22 04:17 Procalcitonin 0.56 ng/mL (<0.15) 08/05/22 21:43 TSH 2.170 mlU/mL (0.270-4.200) 07/25/22 19:37 Free T4 1.18 ng/dL (0.76-1.46) 07/25/22 19:37 Urine Color Lin (Yellow) 08/05/22 11:00 Urine Turbidity Cloudy (Clear) 08/05/22 11:00 Specific [place] (Man) 1.017 (1.003-1.030) 08/05/22 11:00 Ur Protein (Man) 2+ mg/dL (Negative) 08/05/22 11:00 Ur Ketones (Man) Negative (Negative) 08/05/22 11:00 Ur Nitrite (Man) Negative (Negative) 08/05/22 11:00 Ur Reducing Substances Not Reportable 07/26/22 08:31 Urine Bilirubin (Man) Negative (Negative) 08/05/22 11:00 Urine Ictotest Not Reportable 08/05/22 11:00 Leukocyte Esterase (Man) Negative (Negative) 08/05/22 11:00 Urine WBC (Auto) 6.0 /HPF (0.0-6.0) 08/05/22 11:00 Urine RBC (Auto) 6.0 /HPF (0.0-6.0) 08/05/22 11:00 U Epithel Cells (Auto) 1.0 /HPF (0-13.0) 08/05/22 11:00 Urine Bacteria (Auto) 1+ /HPF (Negative) 08/05/22 11:00 Urine RBC (Manual) 4+ (Negative) 08/05/22 11:00 Ur Renal Epithelial Cell 3 /LPF 07/26/22 08:31 Uric Acid Crystals Few 08/05/22 11:00 Amorphous Crystals Few 08/05/22 11:00 Urine Mucus Few /HPF 08/05/22 11:00 Urine Creatinine 118.4 mg/dL (0.1-20.0) H 07/26/22 18:10 Protein/Creatinin Ratio 1.23 07/26/22 18:10 Urine Sodium 108 mmol/L 07/26/22 18:10 Urine Total Protein 146 mg/dL (5-11.8) H 07/26/22 18:10 Nasal Screen MRSA (PCR) Negative (Negative) 08/05/22 14:00 Heparin-induced Plt Ab Negative (Negative) 08/01/22 04:17 UF Heparin High Dose 0 % Release 08/01/22 04:17 SU UFH Low Dose 0.1 0 % Release 08/01/22 04:17 SU UFH Low Dose 0.5 0 % Release 08/01/22 04:17 SARS-CoV-2 (PCR) Negative (Negative) 08/10/22 10:20 Microbiology: Microbiology 08/05/22 21:56 Peripheral/Venous Blood Culture - Preliminary NO GROWTH AFTER 4 DAYS 08/05/22 21:43 Peripheral/Venous Blood Culture - Preliminary NO GROWTH AFTER 4 DAYS Yañez/IV: Voiding Method Indwelling Catheter Active Medications - Current Medications Current Medications: Generic Name Dose Route Start Last Admin Trade Name Freq PRN Reason Stop Dose Admin Acetaminophen 650 mg 07/26/22 00:31 08/08/22 06:11 Acetaminophen 325 Mg Tab PO 650 mg Q4H PRN Administration Pain MILD(1-3)/Fever >100.5/LANTIGUA Acetaminophen 650 mg 07/26/22 02:04 Acetaminophen 650 Mg Rect Supp DC Q4H PRN Pain, Mild (1-3) Albuterol 2.5 mg 07/26/22 00:31 Albuterol 2.5 Mg/3 Ml Nebu IH Q3HRT PRN Shortness Of Breath Amiodarone HCl 200 mg 08/04/22 11:00 08/10/22 09:45 Amiodarone 200 Mg Tab FEEDTUBE 200 mg BID LIZZIE Administration Atorvastatin Calcium 40 mg 08/04/22 22:00 08/09/22 21:23 Atorvastatin 40 Mg Tab FEEDTUBE 40 mg QHS LIZZIE Administration Calcium Carbonate/Glycine 1,250 mg 08/09/22 10:00 08/10/22 09:45 Calcium Carbonate 1250 Mg/5 Ml Oral Liqd FEEDTUBE 1,250 mg BID LIZZIE Administration Dextrose 50 ml 07/27/22 09:25 08/04/22 06:03 Dextrose 50% In Water (25gm) 50 Ml Syringe IV 50 ml Q30MIN PRN Administration Hypoglycemia Protocol Famotidine 10 mg 07/28/22 10:00 08/10/22 09:45 Famotidine 10 Mg Tab FEEDTUBE 10 mg BID LIZZIE Administration Meropenem/Sodium Chloride 1 gram in 100 mls @ 100 mls/hr 08/06/22 10:00 08/10/22 09:49 Merrem/Ns 1 Gram/100 Ml IV 08/14/22 02:59 100 mls/hr Q8H LIZZIE Administration Protocol Insulin Glargine 20 units 08/08/22 22:00 08/09/22 21:24 Insulin Glargine 100 Units/Ml SUB-Q 20 units QHS LIZZIE Administration Insulin Human Regular 0 units 07/27/22 12:00 08/10/22 12:20 Insulin Regular, Human 100 Units/1 Ml SUB-Q 3 units Q6H LIZZIE Administration Protocol Multi-Ingred Cream/Lotion/Oil/Oint 1 applic 07/27/22 03:17 07/27/22 03:35 Mineral Oil/Petrolatum, White Ophth Oint 3.5 Gm OU 1 applic PRN PRN Administration Dry Eye(s) Nitroglycerin 0.4 mg 07/26/22 00:31 Nitroglycerin 0.4 Mg Tab Subl SL Q5M PRN Chest Pain Ondansetron HCl 4 mg 07/26/22 00:31 Ondansetron 4 Mg/2 Ml Inj IV Q8H PRN Nausea And Vomiting Sodium Bicarbonate 650 mg 08/04/22 14:00 08/10/22 14:36 Sodium Bicarbonate 650 Mg Tab FEEDTUBE 650 mg TID LIZZIE Administration Sodium Chloride 10 ml 07/26/22 10:00 08/10/22 09:45 Sodium Chloride 0.9% 10 Ml Flush Syringe IV 10 ml BID LIZZIE Administration Sodium Chloride 10 ml 07/26/22 00:31 Sodium Chloride 0.9% 10 Ml Flush Syringe IV PRN PRN LINE FLUSH Nutrition/Malnutrition Assess - Dietary Evaluation Nutrition/Malnutrition Findings: Nutrition Notes Start: 07/26/22 10:25 Freq: Status: Active Protocol: Document 08/07/22 15:00 CM (Rec: 08/07/22 15:13 CM [id number]) Co-Sign 08/07/22 15:00 WW Nutrition Notes Initial or Follow up Brief Note Current Diagnosis Sepsis,Hypertension, Respiratory Failure,Stroke, Hyperlipidemia Other Pertinent Diagnosis s/p Cardiac Arrest, AMS Current Diet TF - Glucerna 45mL/hr Labs/Tests 08/07: K 3.4 Cl 107.8 BUN 21 Glu 216 Pertinent Medications 08/07: Atorvastatin Humulin Height 5 ft 5 in Weight 49.8 kg [place] Body Weight (kg) 61.81 BMI 18.2 Weight Status Underweight Subjective/Other Information RD follow-up per protocol. Pt currently receiving Glucerna @ 45mL/hr. RN reported loose stool 2x q day. No gastric residuals recorded. Pt continues ventilation via tracheostomy. Abdomen large, round, w/ BS+ per physical assessment. No contraindications to continue. GI Symptoms None Skin Integrity/Comment [place] 10 - breakdown / blisters Current % PO Other #2 Nutrition Diagnosis Underweight Diagnosis Progress(for reassessment Continues documentation) #1 Nutrition Diagnosis Inadequate oral intake Diagnosis Progress(for reassessment Continues documentation) Is patient on ventilator? Yes Is Patient Ambulatory and/or Out of Bed No REE-([facility]-confined to bed) 1398.456 Kcal/Kg value to use for calculation 31 Approximate Energy Requirements Using 1544 kcal/Kg Calculation Used for Recommendations Kcal/kg Additional Notes Pro needs 1.2-2.0g/k-100g /day Fluid needs per MD. Nutrition Intervention Nutrition Support: Change TF rate to 55mL/hr of Glucerna 1.2. Flush with 100mL q 4hrs. Kcal 1,584 Protein (gm) 79 Fluid (mL) 1,060 % RDI: 102%Kcal /100% AA Goal #1 TF tolerance Goal #2 TF to provide at least 75% energy and pro needs Follow-Up By: 08/14/22 Additional Comments Monitor TF administration, TF tolerance, nutrition-related labs, wt status.
--- NOTE | 2022-08-10 16:25 | Gastroenterology Progress Note ---
Assessment and Plan 1. GI: pt seen for bleeding from rectal tube - no further signs bleeding - h/h stable - continue current management - no plans to scope at this time Subjective Date of service: 08/10/22 Principal diagnosis: Hypernatremia, ARF Interval history: - no signs bleeding overnight, no other GI complaints Objective - Constitutional Vitals: Temp Pulse Resp BP Pulse Ox 99.8 F H 100 H 13 143/71 97 08/10/22 12:00 08/10/22 15:57 08/10/22 15:57 08/10/22 15:57 08/10/22 15:57 General appearance: no acute distress - EENT Eyes: PERRL - Respiratory Respiratory: bilateral: rhonchi - Cardiovascular Rhythm: regular Heart Sounds: Present: S1 & S2 - Gastrointestinal General gastrointestinal: Present: soft, non-tender, non-distended - Labs CBC & Chem 7: 08/10/22 05:03 08/10/22 05:03 Labs: Laboratory Results - last 24 hr 08/09/22 08/09/22 08/10/22 16:11 17:31 00:55 WBC RBC Hgb 8.7 L Hct 27.6 L MCV MCH MCHC RDW Plt Count Sodium Potassium Chloride Carbon Dioxide Anion Gap BUN Creatinine Estimated GFR BUN/Creatinine Ratio Glucose POC Glucose 205 H 204 H Calcium SARS-CoV-2 (PCR) 08/10/22 08/10/22 08/10/22 05:03 05:03 06:26 WBC 8.0 RBC 2.92 L Hgb 8.4 L Hct 25.6 L MCV 88 MCH 29 MCHC 33 RDW 15.7 H Plt Count 209 Sodium 137 Potassium 4.1 Chloride 103.0 Carbon Dioxide 24 Anion Gap 14 BUN 16 Creatinine 1.0 Estimated GFR > 60 BUN/Creatinine Ratio 16 Glucose 161 H POC Glucose 177 H Calcium 6.6 L SARS-CoV-2 (PCR) 08/10/22 08/10/22 10:20 12:17 WBC RBC Hgb Hct MCV MCH MCHC RDW Plt Count Sodium Potassium Chloride Carbon Dioxide Anion Gap BUN Creatinine Estimated GFR BUN/Creatinine Ratio Glucose POC Glucose 171 H Calcium SARS-CoV-2 (PCR) Negative
[2022-08-10] MEDS ORDERED: SODIUM CHLORIDE 0.9% 500 ML 500 ML IV ONE (18:09)
[2022-08-10] MEDS ORDERED: SODIUM CHLORIDE 0.9% 1000 ML 1,000 ML IV ONE (18:37)
[2022-08-10] MEDS ORDERED: LACTATED RINGERS 1,000 ML IV ONE ×2 (18:38→19:40)
[2022-08-10] MEDS ORDERED: PHENYLEPHRINE 50 MG in SODIUM CHLORIDE 0.9% 245 ML IV SCH (18:45)
--- NOTE | 2022-08-10 19:03 | Event Note ---
Date: 08/10/22 Called by RN to report map of 44, bloody stool with clots noted prior. Dr. Godwin aware of bloody stool. Patient has tachypnea and was ordered for precedex gtt by Dr. Godwin. Precedex was infusing when RN called to report map 44. Ordered 1 NS, 2 LR bolus and 2 units PRBC with type and cross. Stat H/H ordered also. Precedex stopped. Dr. Montero made aware of GIB and recommended a CT abd/pelvis with contrast which was ordered. RN instructed to call GI with results of scan Attempted to placed PIV but was unsuccessful. CCT 30 mins
[2022-08-10] MEDS: INSULIN GLARGINE 100 UNITS/ML SUB-Q SCH (22:45)
[2022-08-11] MEDS: INSULIN REGULAR, HUMAN 100 UNITS/1 ML SUB-Q SCH ×4 (02:01→17:23)
[2022-08-11] MEDS: MEROPENEM/NS 1 GRAM/100 ML 1 GRAM/100 ML BAG IV SCH ×3 (02:09→17:10)
[2022-08-11 06:10] LABS: Hematocrit 22.1 % (35.5-45.6)
[2022-08-11 06:12] LABS: Hematocrit 21.4 % (35.5-45.6); Hemoglobin 6.8 gm/dl (11.8-15.2); Mean Corpuscular HGB Conc 32 % (32-34); Mean Corpuscular Volume 88 fl (84-94); Platelet Count 191 K/mm3 (140-440); Red Blood Count 2.43 M/mm3 (3.65-5.03); Red Cell Distribution Width 15.5 % (13.2-15.2)
[2022-08-11 06:27] LABS: BUN/Creatinine Ratio 20; Blood Urea Nitrogen 20 mg/dL (9-20); Calcium 7.1 mg/dL (8.4-10.2); Hemolysis Index 14
[2022-08-11] MEDS: SODIUM BICARBONATE 650 MG TAB FEEDTUBE SCH ×3 (07:58→22:26)
[2022-08-11] MEDS: AMIODARONE 200 MG TAB FEEDTUBE SCH ×2 (09:49→22:26)
[2022-08-11] MEDS: FAMOTIDINE 10 MG TAB FEEDTUBE SCH ×2 (09:49→22:26)
[2022-08-11] MEDS: CALCIUM CARBONATE 1250 MG/5 ML ORAL LIQD FEEDTUBE SCH ×2 (09:52→22:26)
--- NOTE | 2022-08-11 10:11 | Gastroenterology Progress Note ---
Assessment and Plan 1. Blood seen in rectal tube - hemoglobin 6.8 from 8.4, continue to monitor and transfuse to maintain >7 - ICU staff reports recurrent rectal bleeding and large clots, rectal tube has been removed - CTA ordered to look for source, if identified will consult IR for possible intervention Subjective Date of service: 08/11/22 Principal diagnosis: Hypernatremia, ARF Interval history: Pt seen and examined. Lying comfortably in bed. Nursing staff reports recurrent rectal bleeding. Rectal tube was removed. On exam, blood present on kristina w/o BM. Hemoglobin dropped to 6.8 from 8.4 overnight, x2 units ordered. Objective - Constitutional Vitals: Temp Pulse Resp BP Pulse Ox 98.9 F 87 23 125/61 100 08/11/22 08:04 08/11/22 09:40 08/11/22 09:40 08/11/22 09:40 08/11/22 09:40 - Gastrointestinal General gastrointestinal: Present: soft, non-tender, non-distended - Labs CBC & Chem 7: 08/11/22 04:52 08/11/22 04:52 Labs: Laboratory Results - last 24 hr 08/10/22 08/10/22 08/10/22 10:20 12:17 18:34 WBC RBC Hgb Hct MCV MCH MCHC RDW Plt Count Sodium Potassium Chloride Carbon Dioxide Anion Gap BUN Creatinine Estimated GFR BUN/Creatinine Ratio Glucose POC Glucose 171 H 248 H Calcium Phosphorus Magnesium SARS-CoV-2 (PCR) Negative Blood Type Antibody Screen Crossmatch 08/10/22 08/10/22 08/11/22 22:37 23:20 04:52 WBC RBC Hgb 7.0 L Hct 22.1 L MCV MCH MCHC RDW Plt Count Sodium Potassium Chloride Carbon Dioxide Anion Gap BUN Creatinine Estimated GFR BUN/Creatinine Ratio Glucose POC Glucose 188 H Calcium Phosphorus Magnesium SARS-CoV-2 (PCR) Blood Type AB POSITIVE Antibody Screen Negative Crossmatch See Detail 08/11/22 08/11/22 08/11/22 04:52 04:52 05:29 WBC 7.7 RBC 2.43 L Hgb 6.8 L Hct 21.4 L MCV 88 MCH 28 MCHC 32 RDW 15.5 H Plt Count 191 Sodium 138 Potassium 4.2 Chloride 106.6 Carbon Dioxide 21 L Anion Gap 15 BUN 20 Creatinine 1.0 Estimated GFR > 60 BUN/Creatinine Ratio 20 Glucose 137 H POC Glucose 151 H Calcium 7.1 L Phosphorus 2.50 Magnesium 1.70 SARS-CoV-2 (PCR) Blood Type Antibody Screen Crossmatch
--- NOTE | 2022-08-11 13:33 | Progress Note ---
Assessment and Plan Assessment, plan. SIRS/sepsis: Initially secondary to Klebsiella pneumonia. Now with new fever since 08/04/2022 associated with new blistering rash and increasing tracheal secretions, likely HAP +/- allergic reaction +/- central fever. Bilateral pneumonia: Initially grew Klebsiella treated with cefepime for 7 days on June 02, 2022. Chest x-ray with worsening pneumonia. Blistering rash: Extensive blistery rash in lower extremities and arms. ? Star Sumeet's vs skin soft tissue infection. CRP 21 Acute respiratory failure: Status post trach and PEG. On the ventilator. Encephalopathy/CVA: ? Hepatic encephalopathy FREDI resolved Recommendations: Eosinophilia improved Skin biopsy may be necessary Follow-up repeat blood cultures Continue meropenem 1 g IV every 8 hours. Plan 8 days. Eder Ngo MD [facility] ([facility] O: [phone] F: [phone] Subjective Date of service: 08/11/22 Principal diagnosis: Hypernatremia, ARF Interval history: One-time fever overnight to 100.6, normal white count. Objective - Exam Narrative Exam: Physical Exam: Constitutional: Intubated, sedated Head, Ears, Nose: Normocephalic, atraumatic. External ears, nose normal Eyes: Conjunctivae/corneas clear. No icterus. No ptosis. Neck: Supple, no meningeal signs Oral: ETT Cardiovascular: S1, S2 normal. Respiratory: Good air entry, clear to auscultation bilaterally GI: Soft, non-tender; bowel sounds normal. No peritoneal signs. Musculoskeletal: No pedal edema, no cyanosis. Skin: No rash or abscess Hem/Lymphatic: No palpable cervical or supraclavicular nodes. No lymphangitis Psych: Sedated Neurological: Sedated - Constitutional Vitals: Vital Signs Temp Pulse Resp BP Pulse Ox 99 F 99 H 23 91/54 100 08/11/22 12:00 08/11/22 12:00 08/11/22 12:00 08/11/22 12:00 08/11/22 12:00 Temperature -Last 24 Hours Temperature 99 F Temperature 98.9 F Temperature 98.9 F Temperature 99.0 F Temperature 98.9 F Temperature 100.6 F Temperature 99.2 F Temperature 99.2 F Temperature 99.8 F - Labs CBC & Chem 7: 08/11/22 04:52 08/11/22 04:52 Labs: Abnormal lab results 08/10/22 08/10/22 08/10/22 Range/Units 12:17 18:34 22:37 RBC (3.65-5.03) M/mm3 Hgb (11.8-15.2) gm/dl Hct (35.5-45.6) % RDW (13.2-15.2) % Carbon Dioxide (22-30) mmol/L Glucose (75-100) mg/dL POC Glucose 171 H 248 H 188 H (70-105) mg/dL Calcium (8.4-10.2) mg/dL Crossmatch 08/10/22 08/11/22 08/11/22 Range/Units 23:20 04:52 04:52 RBC 2.43 L (3.65-5.03) M/mm3 Hgb 7.0 L 6.8 L (11.8-15.2) gm/dl Hct 22.1 L 21.4 L (35.5-45.6) % RDW 15.5 H (13.2-15.2) % Carbon Dioxide (22-30) mmol/L Glucose (75-100) mg/dL POC Glucose (70-105) mg/dL Calcium (8.4-10.2) mg/dL Crossmatch See Detail 08/11/22 08/11/22 Range/Units 04:52 05:29 RBC (3.65-5.03) M/mm3 Hgb (11.8-15.2) gm/dl Hct (35.5-45.6) % RDW (13.2-15.2) % Carbon Dioxide 21 L (22-30) mmol/L Glucose 137 H (75-100) mg/dL POC Glucose 151 H (70-105) mg/dL Calcium 7.1 L (8.4-10.2) mg/dL Crossmatch
--- NOTE | 2022-08-11 14:13 | Progress Note ---
Assessment and Plan 77 y/o male with cardiac arrest, intubated, not sedated with multisystem organ failure 08/11/22: Stop prophylactic anticoagulation. Transfuse PRBC. Follow up with GI if they want CTA vs CT chest with contrast. Guarded prognosis. 08/10/22: ID following. Continue supportive care. 08/09/22: Still spiking temps. ID following with abx therapy. Await placement 08/08/22: Stopping Vanc. Merrem for 8 days. Hold on imaging of head right now. LFT's are ok. Guarded prognosis. Await placement. 08/07/22: Abx therapy per ID. Tracheal aspirate was respiratory kristin. Bld Cx pending. If continues to spike fevers, need to consider repeat imaging of head (CT vs MRI). Could check for alcalculous cholecysitis. Suggest sending LFT's tomorrow. STill awaiting placement. Overall prognosis is guarded to poor. 08/04/22: CXR in am. Will order sputum as per report, secretions have increased. Abx therapy has stopped. Trach site stable. await placement. If spikes again, needs blood, urine and UA. 08/03/22: Await placement. Continue daily PSV. PT consult. 08/01/22: Follow up surgery recs. Continue supportive care. 07/31/22: Supportive care. Surgery consult for trach and peg. Renal function continues to improve. 07/30/22: Continue supportive measures. Family wants aggressive measures despite MRI findings so needs consult to surgery for trach and peg. Will drop steroids down to 25q8 or 50q12 Sunday. Continue volume as renal function is improving. needs more free water if possible. 07/29/22: Drop steroids to 50q8 starting today. CBC not checked, need to evaluate Platelets. Need to correct electrolytes as well. Family is likely going to want trach and peg based on earlier conversations but awaiting more family. Given recent MRI results, prognosis is very poor. 07/28/22: Hold on Volume today. Drop steroids down to 50q8 starting tomorrow. Follow up MRI. EEG results still pending. Platelets still dropping but no evidence of bleeding. Continue abx therapy. Continue feeds. Prognosis is still guarded. 07/27/22: more volume again today. Echo showed normal EF. Wean pressors for MAPs >65, follow up EEg results. Hopeful to get head CT today. Platelets dropped today, not on heparin. Could be sepsis related. If head CT negative, may need to evaluate abdomen around peg. Will start trickle feeds today and transition of insulin drip. Prognosis is still guarded. 1. IVF resusciation with LR 2. Insulin drip and continue NPO state 3. Attempt to wean pressors for MAPs greater than 65 4. Monitor urine output 5. Broaden abx therapy given current clinical state 6. Follow up echo report 7. Agree with stress dose steroids 8. No sedation 9. EEG pending Overall prognosis is guarded to poor, especially given current clinical exam CCT 31 minutes. Subjective Date of service: 08/11/22 Principal diagnosis: Hypernatremia, ARF Interval history: Now with bright red blood from rectum. H/h dropped. Tachypnic last night. Objective Vital Signs - 12hr 08/11/22 08/11/22 08/11/22 02:00 03:00 03:19 Temperature Pulse Rate 99 H 95 H 97 H Respiratory 17 17 6 L Rate Blood Pressure 88/57 93/51 84/57 O2 Sat by Pulse 100 100 Oximetry 08/11/22 08/11/22 08/11/22 04:00 05:00 06:00 Temperature 100.6 F H Pulse Rate 96 H 98 H 95 H Respiratory 15 18 21 Rate Blood Pressure 89/49 109/57 103/58 O2 Sat by Pulse 100 Oximetry 08/11/22 08/11/22 08/11/22 07:00 07:10 07:20 Temperature Pulse Rate 94 H 88 98 H Respiratory 24 16 40 H Rate Blood Pressure 104/63 111/61 107/71 O2 Sat by Pulse 96 100 100 Oximetry 08/11/22 08/11/22 08/11/22 07:30 07:40 07:44 Temperature 98.9 F Pulse Rate 95 H 98 H Respiratory 33 H 40 H Rate Blood Pressure 114/66 114/66 O2 Sat by Pulse 99 100 Oximetry 08/11/22 08/11/22 08/11/22 07:50 08:00 08:04 Temperature 99.0 F 98.9 F Pulse Rate 98 H 96 H 98 H Respiratory 23 35 H 41 H Rate Blood Pressure 107/65 107/65 107/65 O2 Sat by Pulse 100 100 95 Oximetry 08/11/22 08/11/22 08/11/22 08:10 08:20 08:30 Temperature Pulse Rate 99 H 97 H 95 H Respiratory 37 H 24 36 H Rate Blood Pressure 107/65 109/58 124/67 O2 Sat by Pulse 91 100 100 Oximetry 08/11/22 08/11/22 08/11/22 08:40 08:50 09:00 Temperature Pulse Rate 98 H 96 H 91 H Respiratory 35 H 22 25 H Rate Blood Pressure 109/58 119/63 115/62 O2 Sat by Pulse 98 100 100 Oximetry 08/11/22 08/11/22 08/11/22 09:10 09:20 09:30 Temperature Pulse Rate 90 92 H 88 Respiratory 19 24 20 Rate Blood Pressure 119/63 125/61 104/53 O2 Sat by Pulse 99 100 100 Oximetry 08/11/22 08/11/22 08/11/22 09:40 10:00 10:13 Temperature 98.9 F Pulse Rate 87 93 H Respiratory 23 33 H Rate Blood Pressure 125/61 124/61 O2 Sat by Pulse 100 85 Oximetry 08/11/22 08/11/22 08/11/22 11:00 12:00 13:00 Temperature 99 F Pulse Rate 92 H 100 H 96 H Respiratory 20 23 15 Rate Blood Pressure 121/61 91/54 93/54 O2 Sat by Pulse 100 100 100 Oximetry CBC and BMP: 08/11/22 04:52 08/11/22 04:52 ABG, PT/INR, D-dimer: ABG ABG pH 7.500 pH Units (7.350-7.450) H 08/03/22 03:35 ABG pCO2 26.7 mm Hg 08/03/22 03:35 ABG pO2 129.6 mm Hg (80.0-90.0) H 08/03/22 03:35 ABG O2 Saturation 98.7 % (95.0-99.0) 08/03/22 03:35 PT/INR, D-dimer PT 14.3 Sec. (12.2-14.9) 07/31/22 04:13 INR 0.97 (0.87-1.13) 07/31/22 04:13 Abnormal lab findings: Abnormal Labs 07/25/22 07/25/22 07/25/22 19:37 19:37 19:37 WBC 18.8 H RBC 6.31 H Hgb 18.8 H Hct 57.3 H MCV MCHC RDW Plt Count Lymph % (Auto) Lymph # (Auto) [place] # (Auto) 1.4 H Seg Neutrophils % 70.7 H Seg Neuts % (Manual) Lymphocytes % (Manual) Seg Neutrophils # 13.3 H Seg Neutrophils # Man Lymphocytes # (Manual) ABG pH ABG pO2 ABG HCO3 ABG O2 Saturation ABG Base Excess ABG Hemoglobin Oxyhemoglobin Sodium 149 H Potassium Chloride 110.3 H Carbon Dioxide 18 L BUN 73 H Creatinine 3.3 H Glucose 761 H* POC Glucose Hemoglobin A1c Lactic Acid Calcium 10.6 H Phosphorus Magnesium 3.10 H AST 63 H ALT 64 H Ammonia Troponin T 0.072 H C-Reactive Protein Total Protein 9.0 H Albumin Triglycerides 362 H LDL Cholesterol Direct 44 L HDL Cholesterol 34 L Urine Creatinine Urine Total Protein Crossmatch 07/25/22 07/25/22 07/25/22 19:37 21:08 22:10 WBC RBC Hgb Hct MCV MCHC RDW Plt Count Lymph % (Auto) Lymph # (Auto) [place] # (Auto) Seg Neutrophils % Seg Neuts % (Manual) Lymphocytes % (Manual) Seg Neutrophils # Seg Neutrophils # Man Lymphocytes # (Manual) ABG pH ABG pO2 ABG HCO3 ABG O2 Saturation ABG Base Excess ABG Hemoglobin Oxyhemoglobin Sodium 155 H Potassium Chloride 113.1 H Carbon Dioxide 14 L BUN 74 H Creatinine 3.5 H Glucose 734 H* POC Glucose Hemoglobin A1c Lactic Acid 12.70 H* Calcium Phosphorus Magnesium AST ALT Ammonia 64.0 H Troponin T C-Reactive Protein Total Protein Albumin Triglycerides LDL Cholesterol Direct HDL Cholesterol Urine Creatinine Urine Total Protein Crossmatch 07/25/22 07/25/22 07/26/22 22:20 23:29 00:13 WBC RBC Hgb Hct MCV MCHC RDW Plt Count Lymph % (Auto) Lymph # (Auto) [place] # (Auto) Seg Neutrophils % Seg Neuts % (Manual) Lymphocytes % (Manual) Seg Neutrophils # Seg Neutrophils # Man Lymphocytes # (Manual) ABG pH 7.342 L ABG pO2 318.2 H ABG HCO3 14.4 L ABG O2 Saturation 99.5 H ABG Base Excess -9.4 L ABG Hemoglobin Oxyhemoglobin Sodium 157 H Potassium 3.1 L D Chloride 114.0 H Carbon Dioxide 21 L D BUN 72 H Creatinine 3.7 H Glucose 615 H* POC Glucose > 600 H Hemoglobin A1c Lactic Acid Calcium Phosphorus Magnesium AST ALT Ammonia Troponin T C-Reactive Protein Total Protein Albumin Triglycerides LDL Cholesterol Direct HDL Cholesterol Urine Creatinine Urine Total Protein Crossmatch 07/26/22 07/26/22 07/26/22 00:13 00:38 00:39 WBC 21.4 H RBC 5.88 H Hgb 17.2 H Hct 55.0 H MCV MCHC 31 L RDW 16.0 H Plt Count Lymph % (Auto) Lymph # (Auto) [place] # (Auto) Seg Neutrophils % Seg Neuts % (Manual) 77.0 H Lymphocytes % (Manual) 13.0 L Seg Neutrophils # Seg Neutrophils # Man 16.5 H Lymphocytes # (Manual) ABG pH ABG pO2 ABG HCO3 ABG O2 Saturation ABG Base Excess ABG Hemoglobin Oxyhemoglobin Sodium Potassium Chloride Carbon Dioxide BUN Creatinine Glucose POC Glucose 517 H Hemoglobin A1c Lactic Acid 9.10 H* Calcium Phosphorus Magnesium AST ALT Ammonia Troponin T C-Reactive Protein Total Protein Albumin Triglycerides LDL Cholesterol Direct HDL Cholesterol Urine Creatinine Urine Total Protein Crossmatch 07/26/22 07/26/22 07/26/22 00:39 01:32 02:28 WBC RBC Hgb Hct MCV MCHC RDW Plt Count Lymph % (Auto) Lymph # (Auto) [place] # (Auto) Seg Neutrophils % Seg Neuts % (Manual) Lymphocytes % (Manual) Seg Neutrophils # Seg Neutrophils # Man Lymphocytes # (Manual) ABG pH ABG pO2 ABG HCO3 ABG O2 Saturation ABG Base Excess ABG Hemoglobin Oxyhemoglobin Sodium Potassium Chloride Carbon Dioxide BUN Creatinine Glucose POC Glucose 460 H 237 H Hemoglobin A1c Lactic Acid Calcium Phosphorus 1.20 L D Magnesium 4.10 H AST ALT Ammonia Troponin T C-Reactive Protein Total Protein Albumin Triglycerides LDL Cholesterol Direct HDL Cholesterol Urine Creatinine Urine Total Protein Crossmatch 07/26/22 07/26/22 07/26/22 03:03 03:07 04:11 WBC RBC Hgb Hct MCV MCHC RDW Plt Count Lymph % (Auto) Lymph # (Auto) [place] # (Auto) Seg Neutrophils % Seg Neuts % (Manual) Lymphocytes % (Manual) Seg Neutrophils # Seg Neutrophils # Man Lymphocytes # (Manual) ABG pH ABG pO2 ABG HCO3 ABG O2 Saturation ABG Base Excess ABG Hemoglobin Oxyhemoglobin Sodium Potassium Chloride Carbon Dioxide BUN Creatinine Glucose POC Glucose 433 H 370 H 338 H Hemoglobin A1c Lactic Acid Calcium Phosphorus Magnesium AST ALT Ammonia Troponin T C-Reactive Protein Total Protein Albumin Triglycerides LDL Cholesterol Direct HDL Cholesterol Urine Creatinine Urine Total Protein Crossmatch 07/26/22 07/26/22 07/26/22 04:35 04:35 04:40 WBC RBC Hgb Hct MCV MCHC RDW Plt Count Lymph % (Auto) Lymph # (Auto) [place] # (Auto) Seg Neutrophils % Seg Neuts % (Manual) Lymphocytes % (Manual) Seg Neutrophils # Seg Neutrophils # Man Lymphocytes # (Manual) ABG pH 7.301 L ABG pO2 178.2 H ABG HCO3 11.0 L ABG O2 Saturation 99.1 H ABG Base Excess -13.3 L ABG Hemoglobin Oxyhemoglobin Sodium 162 H* Potassium 3.0 L Chloride 124.8 H Carbon Dioxide 18 L BUN 69 H Creatinine 3.9 H Glucose 385 H POC Glucose Hemoglobin A1c Lactic Acid 8.20 H* Calcium 7.8 L Phosphorus Magnesium AST ALT Ammonia Troponin T C-Reactive Protein Total Protein Albumin Triglycerides LDL Cholesterol Direct HDL Cholesterol Urine Creatinine Urine Total Protein Crossmatch 07/26/22 07/26/22 07/26/22 05:01 06:14 06:52 WBC RBC Hgb Hct MCV MCHC RDW Plt Count Lymph % (Auto) Lymph # (Auto) [place] # (Auto) Seg Neutrophils % Seg Neuts % (Manual) Lymphocytes % (Manual) Seg Neutrophils # Seg Neutrophils # Man Lymphocytes # (Manual) ABG pH ABG pO2 ABG HCO3 ABG O2 Saturation ABG Base Excess ABG Hemoglobin Oxyhemoglobin Sodium Potassium Chloride Carbon Dioxide BUN Creatinine Glucose POC Glucose 347 H 300 H 278 H Hemoglobin A1c Lactic Acid Calcium Phosphorus Magnesium AST ALT Ammonia Troponin T C-Reactive Protein Total Protein Albumin Triglycerides LDL Cholesterol Direct HDL Cholesterol Urine Creatinine Urine Total Protein Crossmatch 07/26/22 07/26/22 07/26/22 07:59 08:58 10:04 WBC RBC Hgb Hct MCV MCHC RDW Plt Count Lymph % (Auto) Lymph # (Auto) [place] # (Auto) Seg Neutrophils % Seg Neuts % (Manual) Lymphocytes % (Manual) Seg Neutrophils # Seg Neutrophils # Man Lymphocytes # (Manual) ABG pH ABG pO2 ABG HCO3 ABG O2 Saturation ABG Base Excess ABG Hemoglobin Oxyhemoglobin Sodium Potassium Chloride Carbon Dioxide BUN Creatinine Glucose POC Glucose 269 H 277 H 244 H Hemoglobin A1c Lactic Acid Calcium Phosphorus Magnesium AST ALT Ammonia Troponin T C-Reactive Protein Total Protein Albumin Triglycerides LDL Cholesterol Direct HDL Cholesterol Urine Creatinine Urine Total Protein Crossmatch 07/26/22 07/26/22 07/26/22 11:03 11:53 13:08 WBC RBC Hgb Hct MCV MCHC RDW Plt Count Lymph % (Auto) Lymph # (Auto) [place] # (Auto) Seg Neutrophils % Seg Neuts % (Manual) Lymphocytes % (Manual) Seg Neutrophils # Seg Neutrophils # Man Lymphocytes # (Manual) ABG pH ABG pO2 ABG HCO3 ABG O2 Saturation ABG Base Excess ABG Hemoglobin Oxyhemoglobin Sodium Potassium Chloride Carbon Dioxide BUN Creatinine Glucose POC Glucose 253 H 213 H 194 H Hemoglobin A1c Lactic Acid Calcium Phosphorus Magnesium AST ALT Ammonia Troponin T C-Reactive Protein Total Protein Albumin Triglycerides LDL Cholesterol Direct HDL Cholesterol Urine Creatinine Urine Total Protein Crossmatch 07/26/22 07/26/22 07/26/22 14:24 14:56 14:57 WBC RBC Hgb Hct MCV MCHC RDW Plt Count Lymph % (Auto) Lymph # (Auto) [place] # (Auto) Seg Neutrophils % Seg Neuts % (Manual) Lymphocytes % (Manual) Seg Neutrophils # Seg Neutrophils # Man Lymphocytes # (Manual) ABG pH ABG pO2 ABG HCO3 ABG O2 Saturation ABG Base Excess ABG Hemoglobin Oxyhemoglobin Sodium Potassium Chloride Carbon Dioxide BUN Creatinine Glucose POC Glucose 185 H 236 H 207 H Hemoglobin A1c Lactic Acid Calcium Phosphorus Magnesium AST ALT Ammonia Troponin T C-Reactive Protein Total Protein Albumin Triglycerides LDL Cholesterol Direct HDL Cholesterol Urine Creatinine Urine Total Protein Crossmatch 07/26/22 07/26/22 07/26/22 15:36 15:36 15:36 WBC RBC Hgb Hct MCV MCHC RDW Plt Count Lymph % (Auto) Lymph # (Auto) [place] # (Auto) Seg Neutrophils % Seg Neuts % (Manual) Lymphocytes % (Manual) Seg Neutrophils # Seg Neutrophils # Man Lymphocytes # (Manual) ABG pH ABG pO2 ABG HCO3 ABG O2 Saturation ABG Base Excess ABG Hemoglobin Oxyhemoglobin Sodium 160 H Potassium Chloride 126.2 H Carbon Dioxide 18 L BUN 59 H Creatinine 3.2 H Glucose 227 H POC Glucose Hemoglobin A1c Lactic Acid 9.70 H* Calcium 7.1 L Phosphorus Magnesium AST ALT Ammonia Troponin T 0.049 H D C-Reactive Protein Total Protein Albumin Triglycerides LDL Cholesterol Direct HDL Cholesterol Urine Creatinine Urine Total Protein Crossmatch 07/26/22 07/26/22 07/26/22 15:57 16:32 17:04 WBC RBC Hgb Hct MCV MCHC RDW Plt Count Lymph % (Auto) Lymph # (Auto) [place] # (Auto) Seg Neutrophils % Seg Neuts % (Manual) Lymphocytes % (Manual) Seg Neutrophils # Seg Neutrophils # Man Lymphocytes # (Manual) ABG pH ABG pO2 ABG HCO3 ABG O2 Saturation ABG Base Excess ABG Hemoglobin Oxyhemoglobin Sodium Potassium Chloride Carbon Dioxide BUN Creatinine Glucose POC Glucose 207 H 189 H 219 H Hemoglobin A1c Lactic Acid Calcium Phosphorus Magnesium AST ALT Ammonia Troponin T C-Reactive Protein Total Protein Albumin Triglycerides LDL Cholesterol Direct HDL Cholesterol Urine Creatinine Urine Total Protein Crossmatch 07/26/22 07/26/22 07/26/22 18:00 18:10 18:52 WBC RBC Hgb Hct MCV MCHC RDW Plt Count Lymph % (Auto) Lymph # (Auto) [place] # (Auto) Seg Neutrophils % Seg Neuts % (Manual) Lymphocytes % (Manual) Seg Neutrophils # Seg Neutrophils # Man Lymphocytes # (Manual) ABG pH ABG pO2 ABG HCO3 ABG O2 Saturation ABG Base Excess ABG Hemoglobin Oxyhemoglobin Sodium Potassium Chloride Carbon Dioxide BUN Creatinine Glucose POC Glucose 197 H 194 H Hemoglobin A1c Lactic Acid Calcium Phosphorus Magnesium AST ALT Ammonia Troponin T C-Reactive Protein Total Protein Albumin Triglycerides LDL Cholesterol Direct HDL Cholesterol Urine Creatinine 118.4 H Urine Total Protein 146 H Crossmatch 07/26/22 07/26/22 07/26/22 20:47 21:30 21:51 WBC RBC Hgb Hct MCV MCHC RDW Plt Count Lymph % (Auto) Lymph # (Auto) [place] # (Auto) Seg Neutrophils % Seg Neuts % (Manual) Lymphocytes % (Manual) Seg Neutrophils # Seg Neutrophils # Man Lymphocytes # (Manual) ABG pH ABG pO2 ABG HCO3 ABG O2 Saturation ABG Base Excess ABG Hemoglobin Oxyhemoglobin Sodium 155 H Potassium Chloride 123.5 H Carbon Dioxide 16 L BUN 53 H Creatinine 2.9 H Glucose 185 H POC Glucose 134 H 124 H Hemoglobin A1c Lactic Acid Calcium 7.0 L Phosphorus Magnesium AST ALT Ammonia Troponin T C-Reactive Protein Total Protein Albumin Triglycerides LDL Cholesterol Direct HDL Cholesterol Urine Creatinine Urine Total Protein Crossmatch 07/26/22 07/26/22 07/27/22 22:47 23:52 00:45 WBC RBC Hgb Hct MCV MCHC RDW Plt Count Lymph % (Auto) Lymph # (Auto) [place] # (Auto) Seg Neutrophils % Seg Neuts % (Manual) Lymphocytes % (Manual) Seg Neutrophils # Seg Neutrophils # Man Lymphocytes # (Manual) ABG pH ABG pO2 ABG HCO3 ABG O2 Saturation ABG Base Excess ABG Hemoglobin Oxyhemoglobin Sodium 155 H Potassium Chloride 124.2 H Carbon Dioxide 19 L BUN 53 H Creatinine 2.5 H Glucose 168 H POC Glucose 138 H 150 H Hemoglobin A1c Lactic Acid Calcium 6.7 L Phosphorus Magnesium AST ALT Ammonia Troponin T C-Reactive Protein Total Protein Albumin Triglycerides LDL Cholesterol Direct HDL Cholesterol Urine Creatinine Urine Total Protein Crossmatch 07/27/22 07/27/22 07/27/22 00:58 02:45 03:50 WBC 15.4 H RBC Hgb Hct MCV MCHC RDW 15.3 H Plt Count 60 L Lymph % (Auto) Lymph # (Auto) [place] # (Auto) Seg Neutrophils % Seg Neuts % (Manual) 78.0 H Lymphocytes % (Manual) 3.0 L Seg Neutrophils # Seg Neutrophils # Man 12.0 H Lymphocytes # (Manual) 0.5 L ABG pH ABG pO2 ABG HCO3 ABG O2 Saturation ABG Base Excess ABG Hemoglobin Oxyhemoglobin Sodium Potassium Chloride Carbon Dioxide BUN Creatinine Glucose POC Glucose 153 H 150 H Hemoglobin A1c Lactic Acid Calcium Phosphorus Magnesium AST ALT Ammonia Troponin T C-Reactive Protein Total Protein Albumin Triglycerides LDL Cholesterol Direct HDL Cholesterol Urine Creatinine Urine Total Protein Crossmatch 07/27/22 07/27/22 07/27/22 03:50 03:55 04:57 WBC RBC Hgb Hct MCV MCHC RDW Plt Count Lymph % (Auto) Lymph # (Auto) [place] # (Auto) Seg Neutrophils % Seg Neuts % (Manual) Lymphocytes % (Manual) Seg Neutrophils # Seg Neutrophils # Man Lymphocytes # (Manual) ABG pH ABG pO2 110.1 H ABG HCO3 13.3 L ABG O2 Saturation ABG Base Excess -9.0 L ABG Hemoglobin 13.1 L Oxyhemoglobin Sodium 154 H Potassium Chloride 123.0 H Carbon Dioxide 19 L BUN 55 H Creatinine 2.8 H Glucose 153 H POC Glucose 112 H Hemoglobin A1c Lactic Acid Calcium 6.8 L Phosphorus 1.30 L Magnesium AST 64 H ALT Ammonia Troponin T C-Reactive Protein Total Protein 4.1 L D Albumin 2.1 L Triglycerides LDL Cholesterol Direct HDL Cholesterol Urine Creatinine Urine Total Protein Crossmatch 07/27/22 07/27/22 07/27/22 08:22 09:30 10:49 WBC RBC Hgb Hct MCV MCHC RDW Plt Count Lymph % (Auto) Lymph # (Auto) [place] # (Auto) Seg Neutrophils % Seg Neuts % (Manual) Lymphocytes % (Manual) Seg Neutrophils # Seg Neutrophils # Man Lymphocytes # (Manual) ABG pH ABG pO2 ABG HCO3 ABG O2 Saturation ABG Base Excess ABG Hemoglobin Oxyhemoglobin Sodium Potassium Chloride Carbon Dioxide BUN Creatinine Glucose POC Glucose 146 H 153 H 163 H Hemoglobin A1c Lactic Acid Calcium Phosphorus Magnesium AST ALT Ammonia Troponin T C-Reactive Protein Total Protein Albumin Triglycerides LDL Cholesterol Direct HDL Cholesterol Urine Creatinine Urine Total Protein Crossmatch 07/27/22 07/27/22 07/27/22 12:13 12:44 17:17 WBC RBC Hgb Hct MCV MCHC RDW Plt Count Lymph % (Auto) Lymph # (Auto) [place] # (Auto) Seg Neutrophils % Seg Neuts % (Manual) Lymphocytes % (Manual) Seg Neutrophils # Seg Neutrophils # Man Lymphocytes # (Manual) ABG pH ABG pO2 ABG HCO3 ABG O2 Saturation ABG Base Excess ABG Hemoglobin Oxyhemoglobin Sodium Potassium Chloride Carbon Dioxide BUN Creatinine Glucose POC Glucose 190 H 287 H Hemoglobin A1c 12.3 H Lactic Acid Calcium Phosphorus Magnesium AST ALT Ammonia Troponin T C-Reactive Protein Total Protein Albumin Triglycerides LDL Cholesterol Direct HDL Cholesterol Urine Creatinine Urine Total Protein Crossmatch 07/28/22 07/28/22 07/28/22 00:22 03:58 04:05 WBC RBC Hgb Hct MCV MCHC RDW Plt Count Lymph % (Auto) Lymph # (Auto) [place] # (Auto) Seg Neutrophils % Seg Neuts % (Manual) Lymphocytes % (Manual) Seg Neutrophils # Seg Neutrophils # Man Lymphocytes # (Manual) ABG pH ABG pO2 171.2 H ABG HCO3 12.3 L ABG O2 Saturation 99.2 H ABG Base Excess -9.7 L ABG Hemoglobin 10.9 L Oxyhemoglobin Sodium 148 H Potassium Chloride 117.0 H Carbon Dioxide 16 L BUN 74 H Creatinine 3.2 H Glucose 471 H POC Glucose 379 H Hemoglobin A1c Lactic Acid Calcium 6.2 L Phosphorus Magnesium AST ALT Ammonia Troponin T C-Reactive Protein Total Protein Albumin Triglycerides LDL Cholesterol Direct HDL Cholesterol Urine Creatinine Urine Total Protein Crossmatch 07/28/22 07/28/22 07/28/22 04:05 05:36 12:50 WBC 13.9 H RBC Hgb 11.2 L Hct MCV MCHC 31 L RDW 15.9 H Plt Count 48 L Lymph % (Auto) Lymph # (Auto) [place] # (Auto) Seg Neutrophils % Seg Neuts % (Manual) Lymphocytes % (Manual) Seg Neutrophils # Seg Neutrophils # Man Lymphocytes # (Manual) ABG pH ABG pO2 ABG HCO3 ABG O2 Saturation ABG Base Excess ABG Hemoglobin Oxyhemoglobin Sodium Potassium Chloride Carbon Dioxide BUN Creatinine Glucose POC Glucose 390 H 399 H Hemoglobin A1c Lactic Acid Calcium Phosphorus Magnesium AST ALT Ammonia Troponin T C-Reactive Protein Total Protein Albumin Triglycerides LDL Cholesterol Direct HDL Cholesterol Urine Creatinine Urine Total Protein Crossmatch 07/28/22 07/28/22 07/28/22 17:27 18:16 23:31 WBC RBC Hgb Hct MCV MCHC RDW Plt Count Lymph % (Auto) Lymph # (Auto) [place] # (Auto) Seg Neutrophils % Seg Neuts % (Manual) Lymphocytes % (Manual) Seg Neutrophils # Seg Neutrophils # Man Lymphocytes # (Manual) ABG pH ABG pO2 ABG HCO3 ABG O2 Saturation ABG Base Excess ABG Hemoglobin Oxyhemoglobin Sodium Potassium Chloride Carbon Dioxide BUN Creatinine Glucose POC Glucose 434 H 331 H Hemoglobin A1c Lactic Acid Calcium Phosphorus 2.00 L D Magnesium AST ALT Ammonia Troponin T C-Reactive Protein Total Protein Albumin Triglycerides LDL Cholesterol Direct HDL Cholesterol Urine Creatinine Urine Total Protein Crossmatch 07/29/22 07/29/22 07/29/22 04:47 05:30 06:10 WBC RBC Hgb Hct MCV MCHC RDW Plt Count Lymph % (Auto) Lymph # (Auto) [place] # (Auto) Seg Neutrophils % Seg Neuts % (Manual) Lymphocytes % (Manual) Seg Neutrophils # Seg Neutrophils # Man Lymphocytes # (Manual) ABG pH 7.498 H ABG pO2 166.4 H ABG HCO3 16.2 L ABG O2 Saturation 99.1 H ABG Base Excess -5.4 L ABG Hemoglobin 10.7 L Oxyhemoglobin Sodium 151 H Potassium 3.5 L D Chloride 120.4 H Carbon Dioxide 17 L BUN 80 H Creatinine 2.8 H Glucose 303 H POC Glucose 261 H Hemoglobin A1c Lactic Acid Calcium 6.9 L Phosphorus Magnesium AST ALT Ammonia Troponin T C-Reactive Protein Total Protein Albumin Triglycerides LDL Cholesterol Direct HDL Cholesterol Urine Creatinine Urine Total Protein Crossmatch 07/29/22 07/29/22 07/29/22 09:18 12:31 13:40 WBC 16.0 H RBC Hgb Hct MCV 96 H MCHC 30 L RDW 17.6 H Plt Count 84 L Lymph % (Auto) Lymph # (Auto) [place] # (Auto) Seg Neutrophils % Seg Neuts % (Manual) Lymphocytes % (Manual) Seg Neutrophils # Seg Neutrophils # Man Lymphocytes # (Manual) ABG pH ABG pO2 ABG HCO3 ABG O2 Saturation ABG Base Excess ABG Hemoglobin Oxyhemoglobin Sodium Potassium Chloride Carbon Dioxide BUN Creatinine Glucose POC Glucose 287 H 291 H Hemoglobin A1c Lactic Acid Calcium Phosphorus Magnesium AST ALT Ammonia Troponin T C-Reactive Protein Total Protein Albumin Triglycerides LDL Cholesterol Direct HDL Cholesterol Urine Creatinine Urine Total Protein Crossmatch 07/29/22 07/29/22 07/30/22 17:19 23:57 04:25 WBC RBC Hgb Hct MCV MCHC RDW Plt Count Lymph % (Auto) Lymph # (Auto) [place] # (Auto) Seg Neutrophils % Seg Neuts % (Manual) Lymphocytes % (Manual) Seg Neutrophils # Seg Neutrophils # Man Lymphocytes # (Manual) ABG pH 7.461 H ABG pO2 123.0 H ABG HCO3 18.6 L ABG O2 Saturation ABG Base Excess -4.1 L ABG Hemoglobin 10.8 L Oxyhemoglobin Sodium Potassium Chloride Carbon Dioxide BUN Creatinine Glucose POC Glucose 272 H 205 H Hemoglobin A1c Lactic Acid Calcium Phosphorus Magnesium AST ALT Ammonia Troponin T C-Reactive Protein Total Protein Albumin Triglycerides LDL Cholesterol Direct HDL Cholesterol Urine Creatinine Urine Total Protein Crossmatch 07/30/22 07/30/22 07/30/22 04:42 04:42 05:17 WBC RBC Hgb 11.1 L Hct 33.1 L D MCV MCHC RDW 16.0 H Plt Count 34 L Lymph % (Auto) Lymph # (Auto) [place] # (Auto) Seg Neutrophils % Seg Neuts % (Manual) Lymphocytes % (Manual) Seg Neutrophils # Seg Neutrophils # Man Lymphocytes # (Manual) ABG pH ABG pO2 ABG HCO3 ABG O2 Saturation ABG Base Excess ABG Hemoglobin Oxyhemoglobin Sodium 148 H Potassium 3.2 L Chloride 116.7 H Carbon Dioxide 18 L BUN 69 H Creatinine 2.0 H Glucose 197 H POC Glucose 185 H Hemoglobin A1c Lactic Acid Calcium 6.8 L Phosphorus 1.70 L Magnesium AST ALT Ammonia Troponin T C-Reactive Protein Total Protein Albumin Triglycerides LDL Cholesterol Direct HDL Cholesterol Urine Creatinine Urine Total Protein Crossmatch 07/30/22 07/30/22 07/30/22 11:41 16:14 23:07 WBC RBC Hgb Hct MCV MCHC RDW Plt Count Lymph % (Auto) Lymph # (Auto) [place] # (Auto) Seg Neutrophils % Seg Neuts % (Manual) Lymphocytes % (Manual) Seg Neutrophils # Seg Neutrophils # Man Lymphocytes # (Manual) ABG pH ABG pO2 ABG HCO3 ABG O2 Saturation ABG Base Excess ABG Hemoglobin Oxyhemoglobin Sodium Potassium Chloride Carbon Dioxide BUN Creatinine Glucose POC Glucose 199 H 173 H 159 H Hemoglobin A1c Lactic Acid Calcium Phosphorus Magnesium AST ALT Ammonia Troponin T C-Reactive Protein Total Protein Albumin Triglycerides LDL Cholesterol Direct HDL Cholesterol Urine Creatinine Urine Total Protein Crossmatch 07/31/22 07/31/22 07/31/22 03:25 04:00 04:13 WBC RBC Hgb 10.5 L Hct 32.8 L MCV MCHC RDW 15.3 H Plt Count 55 L Lymph % (Auto) Lymph # (Auto) [place] # (Auto) Seg Neutrophils % Seg Neuts % (Manual) Lymphocytes % (Manual) Seg Neutrophils # Seg Neutrophils # Man Lymphocytes # (Manual) ABG pH 7.513 H ABG pO2 64.1 L ABG HCO3 ABG O2 Saturation ABG Base Excess ABG Hemoglobin 10.5 L Oxyhemoglobin 93.8 L Sodium 146 H Potassium 3.4 L Chloride 112.5 H Carbon Dioxide 21 L BUN 53 H Creatinine 1.6 H Glucose 151 H POC Glucose Hemoglobin A1c Lactic Acid Calcium 6.4 L Phosphorus Magnesium AST ALT Ammonia Troponin T C-Reactive Protein Total Protein Albumin Triglycerides LDL Cholesterol Direct HDL Cholesterol Urine Creatinine Urine Total Protein Crossmatch 07/31/22 07/31/22 07/31/22 05:39 11:08 16:11 WBC RBC Hgb Hct MCV MCHC RDW Plt Count Lymph % (Auto) Lymph # (Auto) [place] # (Auto) Seg Neutrophils % Seg Neuts % (Manual) Lymphocytes % (Manual) Seg Neutrophils # Seg Neutrophils # Man Lymphocytes # (Manual) ABG pH ABG pO2 ABG HCO3 ABG O2 Saturation ABG Base Excess ABG Hemoglobin Oxyhemoglobin Sodium Potassium Chloride Carbon Dioxide BUN Creatinine Glucose POC Glucose 155 H 132 H 150 H Hemoglobin A1c Lactic Acid Calcium Phosphorus Magnesium AST ALT Ammonia Troponin T C-Reactive Protein Total Protein Albumin Triglycerides LDL Cholesterol Direct HDL Cholesterol Urine Creatinine Urine Total Protein Crossmatch 07/31/22 08/01/22 08/01/22 23:48 04:17 04:17 WBC RBC 3.62 L Hgb 10.6 L Hct 31.8 L MCV MCHC RDW 15.7 H Plt Count 90 L Lymph % (Auto) Lymph # (Auto) [place] # (Auto) Seg Neutrophils % Seg Neuts % (Manual) Lymphocytes % (Manual) Seg Neutrophils # Seg Neutrophils # Man Lymphocytes # (Manual) ABG pH ABG pO2 ABG HCO3 ABG O2 Saturation ABG Base Excess ABG Hemoglobin Oxyhemoglobin Sodium 147 H Potassium 3.3 L Chloride 113.7 H Carbon Dioxide BUN 46 H Creatinine Glucose 141 H POC Glucose 133 H Hemoglobin A1c Lactic Acid Calcium 6.0 L Phosphorus 2.00 L Magnesium 1.50 L AST ALT Ammonia Troponin T C-Reactive Protein Total Protein Albumin Triglycerides LDL Cholesterol Direct HDL Cholesterol Urine Creatinine Urine Total Protein Crossmatch 08/01/22 08/01/22 08/01/22 05:46 11:17 17:44 WBC RBC Hgb Hct MCV MCHC RDW Plt Count Lymph % (Auto) Lymph # (Auto) [place] # (Auto) Seg Neutrophils % Seg Neuts % (Manual) Lymphocytes % (Manual) Seg Neutrophils # Seg Neutrophils # Man Lymphocytes # (Manual) ABG pH ABG pO2 ABG HCO3 ABG O2 Saturation ABG Base Excess ABG Hemoglobin Oxyhemoglobin Sodium Potassium Chloride Carbon Dioxide BUN Creatinine Glucose POC Glucose 116 H 190 H 179 H Hemoglobin A1c Lactic Acid Calcium Phosphorus Magnesium AST ALT Ammonia Troponin T C-Reactive Protein Total Protein Albumin Triglycerides LDL Cholesterol Direct HDL Cholesterol Urine Creatinine Urine Total Protein Crossmatch 08/01/22 08/02/22 08/02/22 23:34 04:48 04:48 WBC RBC 3.61 L Hgb 10.2 L Hct 31.9 L MCV MCHC RDW 15.8 H Plt Count 130 L Lymph % (Auto) Lymph # (Auto) [place] # (Auto) Seg Neutrophils % Seg Neuts % (Manual) Lymphocytes % (Manual) Seg Neutrophils # Seg Neutrophils # Man Lymphocytes # (Manual) ABG pH ABG pO2 ABG HCO3 ABG O2 Saturation ABG Base Excess ABG Hemoglobin Oxyhemoglobin Sodium 148 H Potassium 3.4 L Chloride 113.1 H Carbon Dioxide 16 L BUN 45 H Creatinine Glucose 213 H POC Glucose 193 H Hemoglobin A1c Lactic Acid Calcium 5.9 L* Phosphorus 2.30 L Magnesium AST ALT Ammonia Troponin T C-Reactive Protein Total Protein Albumin Triglycerides LDL Cholesterol Direct HDL Cholesterol Urine Creatinine Urine Total Protein Crossmatch 08/02/22 08/02/22 08/02/22 05:38 23:04 23:30 WBC RBC Hgb Hct MCV MCHC RDW Plt Count Lymph % (Auto) Lymph # (Auto) [place] # (Auto) Seg Neutrophils % Seg Neuts % (Manual) Lymphocytes % (Manual) Seg Neutrophils # Seg Neutrophils # Man Lymphocytes # (Manual) ABG pH ABG pO2 ABG HCO3 ABG O2 Saturation ABG Base Excess ABG Hemoglobin Oxyhemoglobin Sodium Potassium Chloride Carbon Dioxide BUN Creatinine Glucose POC Glucose 193 H 65 L 111 H Hemoglobin A1c Lactic Acid Calcium Phosphorus Magnesium AST ALT Ammonia Troponin T C-Reactive Protein Total Protein Albumin Triglycerides LDL Cholesterol Direct HDL Cholesterol Urine Creatinine Urine Total Protein Crossmatch 08/03/22 08/03/22 08/03/22 03:35 04:40 04:40 WBC 12.7 H RBC 3.36 L Hgb 9.5 L Hct 29.8 L MCV MCHC RDW 15.7 H Plt Count Lymph % (Auto) Lymph # (Auto) [place] # (Auto) Seg Neutrophils % Seg Neuts % (Manual) Lymphocytes % (Manual) Seg Neutrophils # Seg Neutrophils # Man Lymphocytes # (Manual) ABG pH 7.500 H ABG pO2 129.6 H ABG HCO3 ABG O2 Saturation ABG Base Excess ABG Hemoglobin 9.7 L Oxyhemoglobin Sodium Potassium 3.3 L Chloride 107.9 H Carbon Dioxide 21 L BUN 37 H Creatinine Glucose 111 H POC Glucose Hemoglobin A1c Lactic Acid Calcium 5.5 L* Phosphorus Magnesium 1.60 L AST ALT Ammonia Troponin T C-Reactive Protein Total Protein Albumin Triglycerides LDL Cholesterol Direct HDL Cholesterol Urine Creatinine Urine Total Protein Crossmatch 08/03/22 08/03/22 08/04/22 05:24 17:18 00:17 WBC RBC Hgb Hct MCV MCHC RDW Plt Count Lymph % (Auto) Lymph # (Auto) [place] # (Auto) Seg Neutrophils % Seg Neuts % (Manual) Lymphocytes % (Manual) Seg Neutrophils # Seg Neutrophils # Man Lymphocytes # (Manual) ABG pH ABG pO2 ABG HCO3 ABG O2 Saturation ABG Base Excess ABG Hemoglobin Oxyhemoglobin Sodium Potassium Chloride Carbon Dioxide BUN Creatinine Glucose POC Glucose 115 H 111 H 64 L Hemoglobin A1c Lactic Acid Calcium Phosphorus Magnesium AST ALT Ammonia Troponin T C-Reactive Protein Total Protein Albumin Triglycerides LDL Cholesterol Direct HDL Cholesterol Urine Creatinine Urine Total Protein Crossmatch 08/04/22 08/04/22 08/04/22 04:39 04:39 05:36 WBC 14.2 H RBC 3.61 L Hgb 10.3 L Hct 31.2 L MCV MCHC RDW 15.4 H Plt Count Lymph % (Auto) Lymph # (Auto) [place] # (Auto) Seg Neutrophils % Seg Neuts % (Manual) Lymphocytes % (Manual) Seg Neutrophils # Seg Neutrophils # Man Lymphocytes # (Manual) ABG pH ABG pO2 ABG HCO3 ABG O2 Saturation ABG Base Excess ABG Hemoglobin Oxyhemoglobin Sodium Potassium 3.1 L Chloride Carbon Dioxide 18 L BUN 30 H Creatinine Glucose 68 L POC Glucose 68 L Hemoglobin A1c Lactic Acid Calcium 6.1 L Phosphorus 2.00 L D Magnesium AST ALT Ammonia Troponin T C-Reactive Protein Total Protein Albumin Triglycerides LDL Cholesterol Direct HDL Cholesterol Urine Creatinine Urine Total Protein Crossmatch 08/04/22 08/04/22 08/04/22 06:32 11:37 17:53 WBC RBC Hgb Hct MCV MCHC RDW Plt Count Lymph % (Auto) Lymph # (Auto) [place] # (Auto) Seg Neutrophils % Seg Neuts % (Manual) Lymphocytes % (Manual) Seg Neutrophils # Seg Neutrophils # Man Lymphocytes # (Manual) ABG pH ABG pO2 ABG HCO3 ABG O2 Saturation ABG Base Excess ABG Hemoglobin Oxyhemoglobin Sodium Potassium Chloride Carbon Dioxide BUN Creatinine Glucose POC Glucose 110 H 118 H 171 H Hemoglobin A1c Lactic Acid Calcium Phosphorus Magnesium AST ALT Ammonia Troponin T C-Reactive Protein Total Protein Albumin Triglycerides LDL Cholesterol Direct HDL Cholesterol Urine Creatinine Urine Total Protein Crossmatch 08/04/22 08/04/22 08/05/22 23:41 23:43 04:46 WBC 12.5 H RBC Hgb 10.8 L Hct 33.3 L MCV MCHC RDW 15.8 H Plt Count 138 L Lymph % (Auto) Lymph # (Auto) [place] # (Auto) Seg Neutrophils % Seg Neuts % (Manual) Lymphocytes % (Manual) Seg Neutrophils # Seg Neutrophils # Man Lymphocytes # (Manual) ABG pH ABG pO2 ABG HCO3 ABG O2 Saturation ABG Base Excess ABG Hemoglobin Oxyhemoglobin Sodium Potassium Chloride Carbon Dioxide BUN Creatinine Glucose POC Glucose 226 H 218 H Hemoglobin A1c Lactic Acid Calcium Phosphorus Magnesium AST ALT Ammonia Troponin T C-Reactive Protein Total Protein Albumin Triglycerides LDL Cholesterol Direct HDL Cholesterol Urine Creatinine Urine Total Protein Crossmatch 08/05/22 08/05/22 08/05/22 04:46 06:05 11:42 WBC RBC Hgb Hct MCV MCHC RDW Plt Count Lymph % (Auto) Lymph # (Auto) [place] # (Auto) Seg Neutrophils % Seg Neuts % (Manual) Lymphocytes % (Manual) Seg Neutrophils # Seg Neutrophils # Man Lymphocytes # (Manual) ABG pH ABG pO2 ABG HCO3 ABG O2 Saturation ABG Base Excess ABG Hemoglobin Oxyhemoglobin Sodium Potassium Chloride Carbon Dioxide 16 L BUN 29 H Creatinine Glucose 179 H POC Glucose 220 H 180 H Hemoglobin A1c Lactic Acid Calcium 6.1 L Phosphorus Magnesium AST ALT Ammonia Troponin T C-Reactive Protein Total Protein Albumin Triglycerides LDL Cholesterol Direct HDL Cholesterol Urine Creatinine Urine Total Protein Crossmatch 08/05/22 08/05/22 08/05/22 17:39 21:10 21:43 WBC RBC Hgb Hct MCV MCHC RDW Plt Count Lymph % (Auto) Lymph # (Auto) [place] # (Auto) Seg Neutrophils % Seg Neuts % (Manual) Lymphocytes % (Manual) Seg Neutrophils # Seg Neutrophils # Man Lymphocytes # (Manual) ABG pH ABG pO2 ABG HCO3 ABG O2 Saturation ABG Base Excess ABG Hemoglobin Oxyhemoglobin Sodium Potassium Chloride Carbon Dioxide BUN Creatinine Glucose POC Glucose 207 H 185 H Hemoglobin A1c Lactic Acid Calcium Phosphorus Magnesium AST ALT Ammonia Troponin T C-Reactive Protein 21.50 H Total Protein Albumin Triglycerides LDL Cholesterol Direct HDL Cholesterol Urine Creatinine Urine Total Protein Crossmatch 08/05/22 08/06/22 08/06/22 23:38 05:13 05:20 WBC RBC 3.32 L Hgb 9.4 L Hct 29.4 L MCV MCHC RDW 15.6 H Plt Count Lymph % (Auto) Lymph # (Auto) [place] # (Auto) Seg Neutrophils % Seg Neuts % (Manual) Lymphocytes % (Manual) Seg Neutrophils # Seg Neutrophils # Man Lymphocytes # (Manual) ABG pH ABG pO2 ABG HCO3 ABG O2 Saturation ABG Base Excess ABG Hemoglobin Oxyhemoglobin Sodium Potassium Chloride Carbon Dioxide BUN Creatinine Glucose POC Glucose 198 H 182 H Hemoglobin A1c Lactic Acid Calcium Phosphorus Magnesium AST ALT Ammonia Troponin T C-Reactive Protein Total Protein Albumin Triglycerides LDL Cholesterol Direct HDL Cholesterol Urine Creatinine Urine Total Protein Crossmatch 08/06/22 08/06/22 08/06/22 05:20 11:25 16:13 WBC RBC Hgb Hct MCV MCHC RDW Plt Count Lymph % (Auto) Lymph # (Auto) [place] # (Auto) Seg Neutrophils % Seg Neuts % (Manual) Lymphocytes % (Manual) Seg Neutrophils # Seg Neutrophils # Man Lymphocytes # (Manual) ABG pH ABG pO2 ABG HCO3 ABG O2 Saturation ABG Base Excess ABG Hemoglobin Oxyhemoglobin Sodium Potassium Chloride 107.2 H Carbon Dioxide 21 L BUN 25 H Creatinine Glucose 176 H POC Glucose 155 H 176 H Hemoglobin A1c Lactic Acid Calcium 6.1 L Phosphorus 1.80 L D Magnesium 1.60 L AST ALT Ammonia Troponin T C-Reactive Protein Total Protein Albumin Triglycerides LDL Cholesterol Direct HDL Cholesterol Urine Creatinine Urine Total Protein Crossmatch 08/06/22 08/06/22 08/07/22 21:34 23:22 00:02 WBC RBC 2.98 L Hgb 8.4 L Hct 26.2 L MCV MCHC RDW 15.5 H Plt Count Lymph % (Auto) 11.3 L Lymph # (Auto) 0.9 L [place] # (Auto) Seg Neutrophils % 81.9 H Seg Neuts % (Manual) Lymphocytes % (Manual) Seg Neutrophils # Seg Neutrophils # Man Lymphocytes # (Manual) ABG pH ABG pO2 ABG HCO3 ABG O2 Saturation ABG Base Excess ABG Hemoglobin Oxyhemoglobin Sodium Potassium Chloride Carbon Dioxide BUN Creatinine Glucose POC Glucose 206 H 188 H Hemoglobin A1c Lactic Acid Calcium Phosphorus Magnesium AST ALT Ammonia Troponin T C-Reactive Protein Total Protein Albumin Triglycerides LDL Cholesterol Direct HDL Cholesterol Urine Creatinine Urine Total Protein Crossmatch 08/07/22 08/07/22 08/07/22 04:16 04:16 04:49 WBC RBC 3.12 L Hgb 8.8 L Hct 27.4 L MCV MCHC RDW 15.4 H Plt Count Lymph % (Auto) 10.6 L Lymph # (Auto) 0.9 L [place] # (Auto) Seg Neutrophils % 83.1 H Seg Neuts % (Manual) Lymphocytes % (Manual) Seg Neutrophils # Seg Neutrophils # Man Lymphocytes # (Manual) ABG pH ABG pO2 ABG HCO3 ABG O2 Saturation ABG Base Excess ABG Hemoglobin Oxyhemoglobin Sodium Potassium 3.4 L Chloride 107.8 H Carbon Dioxide BUN 21 H Creatinine Glucose 216 H POC Glucose 192 H Hemoglobin A1c Lactic Acid Calcium 6.1 L Phosphorus 2.00 L Magnesium AST 76 H ALT Ammonia Troponin T C-Reactive Protein Total Protein 5.1 L Albumin 1.8 L Triglycerides LDL Cholesterol Direct HDL Cholesterol Urine Creatinine Urine Total Protein Crossmatch 08/07/22 08/07/22 08/07/22 11:28 16:15 22:16 WBC RBC Hgb Hct MCV MCHC RDW Plt Count Lymph % (Auto) Lymph # (Auto) [place] # (Auto) Seg Neutrophils % Seg Neuts % (Manual) Lymphocytes % (Manual) Seg Neutrophils # Seg Neutrophils # Man Lymphocytes # (Manual) ABG pH ABG pO2 ABG HCO3 ABG O2 Saturation ABG Base Excess ABG Hemoglobin Oxyhemoglobin Sodium Potassium Chloride Carbon Dioxide BUN Creatinine Glucose POC Glucose 204 H 203 H 175 H Hemoglobin A1c Lactic Acid Calcium Phosphorus Magnesium AST ALT Ammonia Troponin T C-Reactive Protein Total Protein Albumin Triglycerides LDL Cholesterol Direct HDL Cholesterol Urine Creatinine Urine Total Protein Crossmatch 08/08/22 08/08/22 08/08/22 00:01 04:46 04:46 WBC RBC 3.16 L Hgb 8.9 L Hct 27.4 L MCV MCHC RDW 15.5 H Plt Count Lymph % (Auto) Lymph # (Auto) [place] # (Auto) Seg Neutrophils % Seg Neuts % (Manual) Lymphocytes % (Manual) Seg Neutrophils # Seg Neutrophils # Man Lymphocytes # (Manual) ABG pH ABG pO2 ABG HCO3 ABG O2 Saturation ABG Base Excess ABG Hemoglobin Oxyhemoglobin Sodium Potassium Chloride Carbon Dioxide BUN Creatinine Glucose 200 H POC Glucose 183 H Hemoglobin A1c Lactic Acid Calcium 6.3 L Phosphorus Magnesium AST 81 H ALT Ammonia Troponin T C-Reactive Protein Total Protein 5.1 L Albumin 1.7 L Triglycerides LDL Cholesterol Direct HDL Cholesterol Urine Creatinine Urine Total Protein Crossmatch 08/08/22 08/08/22 08/08/22 06:14 11:27 16:41 WBC RBC Hgb Hct MCV MCHC RDW Plt Count Lymph % (Auto) Lymph # (Auto) [place] # (Auto) Seg Neutrophils % Seg Neuts % (Manual) Lymphocytes % (Manual) Seg Neutrophils # Seg Neutrophils # Man Lymphocytes # (Manual) ABG pH ABG pO2 ABG HCO3 ABG O2 Saturation ABG Base Excess ABG Hemoglobin Oxyhemoglobin Sodium Potassium Chloride Carbon Dioxide BUN Creatinine Glucose POC Glucose 206 H 196 H 199 H Hemoglobin A1c Lactic Acid Calcium Phosphorus Magnesium AST ALT Ammonia Troponin T C-Reactive Protein Total Protein Albumin Triglycerides LDL Cholesterol Direct HDL Cholesterol Urine Creatinine Urine Total Protein Crossmatch 08/08/22 08/08/22 08/09/22 22:50 23:52 04:53 WBC RBC 3.00 L Hgb 8.4 L Hct 26.4 L MCV MCHC RDW 15.7 H Plt Count Lymph % (Auto) Lymph # (Auto) [place] # (Auto) Seg Neutrophils % Seg Neuts % (Manual) Lymphocytes % (Manual) Seg Neutrophils # Seg Neutrophils # Man Lymphocytes # (Manual) ABG pH ABG pO2 ABG HCO3 ABG O2 Saturation ABG Base Excess ABG Hemoglobin Oxyhemoglobin Sodium Potassium Chloride Carbon Dioxide BUN Creatinine Glucose POC Glucose 198 H 226 H Hemoglobin A1c Lactic Acid Calcium Phosphorus Magnesium AST ALT Ammonia Troponin T C-Reactive Protein Total Protein Albumin Triglycerides LDL Cholesterol Direct HDL Cholesterol Urine Creatinine Urine Total Protein Crossmatch 08/09/22 08/09/22 08/09/22 04:53 05:38 11:29 WBC RBC Hgb Hct MCV MCHC RDW Plt Count Lymph % (Auto) Lymph # (Auto) [place] # (Auto) Seg Neutrophils % Seg Neuts % (Manual) Lymphocytes % (Manual) Seg Neutrophils # Seg Neutrophils # Man Lymphocytes # (Manual) ABG pH ABG pO2 ABG HCO3 ABG O2 Saturation ABG Base Excess ABG Hemoglobin Oxyhemoglobin Sodium Potassium 3.5 L Chloride Carbon Dioxide BUN Creatinine Glucose 181 H POC Glucose 160 H 174 H Hemoglobin A1c Lactic Acid Calcium 6.2 L Phosphorus Magnesium AST ALT Ammonia Troponin T C-Reactive Protein Total Protein Albumin Triglycerides LDL Cholesterol Direct HDL Cholesterol Urine Creatinine Urine Total Protein Crossmatch 08/09/22 08/09/22 08/10/22 16:11 17:31 00:55 WBC RBC Hgb 8.7 L Hct 27.6 L MCV MCHC RDW Plt Count Lymph % (Auto) Lymph # (Auto) [place] # (Auto) Seg Neutrophils % Seg Neuts % (Manual) Lymphocytes % (Manual) Seg Neutrophils # Seg Neutrophils # Man Lymphocytes # (Manual) ABG pH ABG pO2 ABG HCO3 ABG O2 Saturation ABG Base Excess ABG Hemoglobin Oxyhemoglobin Sodium Potassium Chloride Carbon Dioxide BUN Creatinine Glucose POC Glucose 205 H 204 H Hemoglobin A1c Lactic Acid Calcium Phosphorus Magnesium AST ALT Ammonia Troponin T C-Reactive Protein Total Protein Albumin Triglycerides LDL Cholesterol Direct HDL Cholesterol Urine Creatinine Urine Total Protein Crossmatch 08/10/22 08/10/22 08/10/22 05:03 05:03 06:26 WBC RBC 2.92 L Hgb 8.4 L Hct 25.6 L MCV MCHC RDW 15.7 H Plt Count Lymph % (Auto) Lymph # (Auto) [place] # (Auto) Seg Neutrophils % Seg Neuts % (Manual) Lymphocytes % (Manual) Seg Neutrophils # Seg Neutrophils # Man Lymphocytes # (Manual) ABG pH ABG pO2 ABG HCO3 ABG O2 Saturation ABG Base Excess ABG Hemoglobin Oxyhemoglobin Sodium Potassium Chloride Carbon Dioxide BUN Creatinine Glucose 161 H POC Glucose 177 H Hemoglobin A1c Lactic Acid Calcium 6.6 L Phosphorus Magnesium AST ALT Ammonia Troponin T C-Reactive Protein Total Protein Albumin Triglycerides LDL Cholesterol Direct HDL Cholesterol Urine Creatinine Urine Total Protein Crossmatch 08/10/22 08/10/22 08/10/22 12:17 18:34 22:37 WBC RBC Hgb Hct MCV MCHC RDW Plt Count Lymph % (Auto) Lymph # (Auto) [place] # (Auto) Seg Neutrophils % Seg Neuts % (Manual) Lymphocytes % (Manual) Seg Neutrophils # Seg Neutrophils # Man Lymphocytes # (Manual) ABG pH ABG pO2 ABG HCO3 ABG O2 Saturation ABG Base Excess ABG Hemoglobin Oxyhemoglobin Sodium Potassium Chloride Carbon Dioxide BUN Creatinine Glucose POC Glucose 171 H 248 H 188 H Hemoglobin A1c Lactic Acid Calcium Phosphorus Magnesium AST ALT Ammonia Troponin T C-Reactive Protein Total Protein Albumin Triglycerides LDL Cholesterol Direct HDL Cholesterol Urine Creatinine Urine Total Protein Crossmatch 08/10/22 08/11/22 08/11/22 23:20 04:52 04:52 WBC RBC 2.43 L Hgb 7.0 L 6.8 L Hct 22.1 L 21.4 L MCV MCHC RDW 15.5 H Plt Count Lymph % (Auto) Lymph # (Auto) [place] # (Auto) Seg Neutrophils % Seg Neuts % (Manual) Lymphocytes % (Manual) Seg Neutrophils # Seg Neutrophils # Man Lymphocytes # (Manual) ABG pH ABG pO2 ABG HCO3 ABG O2 Saturation ABG Base Excess ABG Hemoglobin Oxyhemoglobin Sodium Potassium Chloride Carbon Dioxide BUN Creatinine Glucose POC Glucose Hemoglobin A1c Lactic Acid Calcium Phosphorus Magnesium AST ALT Ammonia Troponin T C-Reactive Protein Total Protein Albumin Triglycerides LDL Cholesterol Direct HDL Cholesterol Urine Creatinine Urine Total Protein Crossmatch See Detail 08/11/22 08/11/22 04:52 05:29 WBC RBC Hgb Hct MCV MCHC RDW Plt Count Lymph % (Auto) Lymph # (Auto) [place] # (Auto) Seg Neutrophils % Seg Neuts % (Manual) Lymphocytes % (Manual) Seg Neutrophils # Seg Neutrophils # Man Lymphocytes # (Manual) ABG pH ABG pO2 ABG HCO3 ABG O2 Saturation ABG Base Excess ABG Hemoglobin Oxyhemoglobin Sodium Potassium Chloride Carbon Dioxide 21 L BUN Creatinine Glucose 137 H POC Glucose 151 H Hemoglobin A1c Lactic Acid Calcium 7.1 L Phosphorus Magnesium AST ALT Ammonia Troponin T C-Reactive Protein Total Protein Albumin Triglycerides LDL Cholesterol Direct HDL Cholesterol Urine Creatinine Urine Total Protein Crossmatch
--- NOTE | 2022-08-11 17:47 | Cat Scan Report ---
CTA abdomen and pelvis with contrast INDICATION : gib. TECHNIQUE: Axial imaging performed through the abdomen and pelvis, with contrast bolus timing set to maximize opacification of the aorta. 3-plane MIP reformatted images were obtained. All CT scans at this location are performed using CT dose reduction for ALARA by means of automated exposure control. 100 mL of intravenous contrast administered. COMPARISON: CT abdomen/pelvis from 02/21/2020 FINDINGS: Angiographic findings: The aorta and branch vessels are widely patent with no aneurysm, dissection, o r significant atherosclerotic disease. Venous phase imaging shows DVT in the right common femoral vei n extending into the external iliac vein. Questionable thrombus also in the left common femoral/dista l external iliac veins where there is enlargement. No acute GI bleed identified within the small bowel or colon. There appears to be some retained contr ast within the appendix. Non-angiographic findings: Lungs/bones: There is mild right greater than left basilar consolidation. Degenerative changes are p resent in the spine and pelvis with no acute osseous abnormality. Abdomen/pelvis: The liver, spleen, pancreas, and adrenals appear unremarkable. Gallbladder surgicall y absent. Simple cyst in the upper pole of the left kidney. Right kidney is unremarkable. A gastrosto my tube is positioned in the mid gastric body Urinary bladder is collapsed with a Yañez catheter in place. There is prostatomegaly indenting the bl adder base and there is circumferential bladder wall thickening. There is mild segmental wall thickening throughout the sigmoid colon extending to the rectum. The rem ainder of the colon shows no acute abnormality. There is no obstruction or perforation. IMPRESSION: 1. No acute GI bleed. 2. Bilateral DVT as above. Findings were called to the patient's nurse Estrella at 4:42 PM [facility]. 3. Inflammatory change involving the rectosigmoid colon can be seen with proctitis or colitis. 3. Additional incidental findings as above including bibasilar consolidation worrisome for evolving p neumonia. Signer Name: Darius Reynolds MD Signed: 08/11/2022 5:43 PM Workstation Name: [id number]
--- NOTE | 2022-08-11 19:27 | Progress Note ---
Assessment and Plan Assessment and plan: Assessment/ Plan This is a 77-year-old male with DM, paroxysmal atrial fibrillation, HTN, CVA (2020) admitted s/p cardiac arrest with acute hypoxic respiratory failure and DKA Neuro: Acute metabolic encephalopathy, hepatic encephalopathy, ALEC ,subclinical status epilepticus ruled out, h/o CVA (2019) -Sluggish pupils, no cough/gag, periodic spontaneous respiration -Neurology consulted, appreciate recommendations -Initial CT head with no acute abnormality -EEG is Likely compatible with diffuse encephalopathy -Per neurology aim for euglycemia and permissive hypertension for now -Ammonia 64 -MRI brain shows diffuse diffusion abnormality involving cerebral and cerebellum compatible with diffuse hypoxia given the patient's history, interval evolving of left [employer] infarct from 02/16/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 Cardiac: S/p cardiac arrest, A. fib RVR, h/o hypertension, paroxysmal atrial fibrillation, hyperlipidemia -Patient suffered cardiac arrest on 07/25 in the ED and then was noted to be in A. fib with RVR -Amiodarone PO -Cardiology consulted, appreciate recommendations -Blood pressure monitoring per protocol -S/p vasopressor support with Levophed and vasopressin -MAP goal greater than 65 -Echocardiogram shows EF 50 to 60%, no pericardial effusion -Lipitor Respiratory: Acute hypoxic respiratory failure -CCM consulted, appreciate recommendations -Intubated on 07/25 with a 8.00 ETT in the ED -08/02 s/p trach and peg exchange -A.m. vent settings: Assist-control rate 14, tidal volume 400, PEEP 6, FiO2 35% -See RT notes for titration -A.m. ABG and CXR noted -VAP bundle -SPO2 monitoring GI: Protein calorie malnutrition, r/o GIB -GI consulted, appreciate recommendation -NTR consult for tube feeding -08/02 peg exchange -PPI -Abdomen/pelvis CTA with showed no acute GI bleed, bilateral DVTs, inflammatory changes involving rectosigmoid colon can be seen with proctitis or colitis, incidental findings of bibasilar consolidation concerning for evolving pneumonia : Acute kidney injury likely secondary to vasomotor nephropathy (resolved) -S/p 5 L LR bolus -Nephrology consulted, appreciate recommendations -Serum creatinine 03/08/2020 was 1.3 -Monitor intake and output -Renally dose medications -Avoid nephrotoxic medications -FeNa 1.8% -FWF -Renal ultrasound noted -Trend BMP ID: Sepsis, Klebsiella pneumonia -Hypotension, acute kidney injury, acute respiratory failure, lactic acidosis -Antibiotic therapy merrem -MRSA PCR negative -s/p solu-cortef -f/u blood culture -Monitor WBC and temperature curve Endo: s/p DKA, h/o DM -Presented with anion gap of 21, glucose of 761, VBG 7.362 -s/p Insulin drip -Accu-Cheks q6hr -SSI -Long-acting insulin, titrate as needed -Hemaglobin A1C 12.3 Heme: Acute Anemia, acute bilateral DVTs -Noted on CTA abdomen/pelvis -Patient unable to tolerate anticoagulation in setting of active rectal bleeding -HIT negative -Trend CBC -Transfuse hemoglobin less than 7 -S/p 2 units PRBC -SCDs to BLE while in bed The high probability of a clinically significant, sudden or life threatening deterioration of the [multi] system(s) required my full and direct attention, intervention and personal management. The aggregate critical care time was [60] minutes. This time is in addition to time spent performing reported procedures but includes the following: [x] Data Review and interpretation [x] Patient assessment and monitoring of vital signs [x] Documentation [x] Medication orders and management Disposition Plan: icu Total Time Spent with Patient (Minutes): 60 History Interval history: This is a 77-year-old male who is halfway patient at [facility] with DM, paroxysmal atrial fibrillation, HTN, CVA (2020) presents the emergency department on 07/26 via EMS with hypoglycemia and unresponsiveness. In the emergency department patient was deciding 7% on room air and was placed on nonrebreather but sats have increased to greater than 81% and the patient was obtunded therefore ED physician decided to intubate the patient. Per documentation after intubation patient went into PEA arrest and ACLS was initiated and ROSC was achieved after approximately 13 minutes. Work-up in the emergency department revealed leukocytosis, hyponatremia 155, elevated BUN/creatinine at 3.5/74, anion gap metabolic acidosis and hyperglycemia 734. Patient was admitted to the hospital service with consults to cardiology, CCM and nephrology on DKA protocol on mechanical ventilation. Hospital course to date: 07/26: Patient is on any sedation, very sluggish pupillary response, no cough/gag noted, no seizure activity. Neurology recs repeat CT head without contrast or MRI brain without contrast when clinically stable. Patient also had a EEG completed today. Patient is currently maxed on Levophed and vasopressin. Given several LR boluses today. Antibiotics broadened and stress dose steroids added. 07/27: Weaning pressors, phosphorus repleted, SSI and long-acting insulin initiated, tube feeding initiated. Patient now has a hypoactive cough/gag. CT head pending. LR bolus. Thrombocytopenia noted. Cardiology would like to start heparin drip due to atrial fibrillation however would like neurology input prior to. 07/28: Patient remains off of vasopressors, patient had MRI today. Worsening renal function noted. Cardiology will hold off amiodarone due to thrombocytopenia. No acute events reported overnight. 07/29: I had an extensive conversation with son and at bedside to with the help of an spanish medical interpreter through the sales clerk line. Explained thoroughly of presentation to the ED from documentation, cardiac arrest, CT head and MRI brain findings. They are still electing to continue aggressive care and would like hospital assistance with getting a visa for youngest son to come to the [facility] from [place]. associate sales manager is aware of request. Steroid taper started. CBC pending. Will be repleted. Hypernatremia improving. 07/30: LR bolus, renal function is improved, thrombocytopenia worse. Likely consult surgery for trach/peg as per family requests to continue care. No acute events overnight. 07/31: Patient's mentation is unchanged. Remains on low vent setting. D/w [facility] general surgery consulted for possible trach and PEG. Renal function is improving, still hypenatremic, continue FWF per Nephrology. K repleted, continue to - Monitor and replace electrolytes as needed. Patient remains in SR on the monitor, VSS. Amiodarone gtt transitioned to PO amio per Cardio. 08/01: Condition unchanged, remains stable on low vent setting. Renal function continue to improve with persistent hypernatremia, continue FWF per Nephro. General Surgery recommendations noted. D/w General surgery, plan for possible trach and PEG exchange tomorrow or . 08/02: Remains stable on low vent settings. NPO since after midnight for possible trach/PEG today by General Surgery. Patient remains hypernatremic and due to NPO status, FWF was held. Will initiated low dose D5W gtt for now. And also to prevent hypoglycemia while NPO, patient is on Lantus BID. Currently on steroids taper, will hold tonight does and reduce Lantus to Qhs starting tomorrow. Close monitoring of BG and electrolytes. Nephrology is also following. 08/03: S/p trach and PEG exchange. Remains stable on the vent with no complications. Tolerating TF and also Tolerated 2hrs of PSV trial this am. Continue to taper IV steroids, qhs Lantus adjusted to avoid hypoglycemia. Hypernatremia improved, continue FWF per Nephro. Possible LTAC placement, case management to arrange. 08/04: ABRAM overnight. Sodium normalized this morning, electrolytes repleted, continue to monitor and replace electrolytes as needed. Nephrology is also following. Hypoglycemic overnight, TF not yet at goal, will hold Lantus for now. Continue daily PSV trial as tolerated. Possible LTAC placement, case management to arrange. 08/05: Now with thick secretions orally and via ETT, with persistent fevers. This am CXR suggesting possible developing lower lobe PNA. VSS. Will panculture and initiate empiric IV abx- Cefepine. Check CRP and procal. Remove Yañez catheter and follow Yañez removal protocol. ID was also consulted for further recs. TF is now at goal, hyperglycemic today, will resume qhs Lantus. Hyponatremia resolved, FWF adjusted. 08/06: Remains stable on low vent settings. Still with low grade fevers, procal and repeat cultures pending. ID recommendations noted. C/f for possible allergic reaction vs skin infection due to persistent skin blisters. Cefepine switched to Merrem and Vanco. Check CBC with Diff, continue to follow up on cultures. 08/07: No acute events reported overnight, T-max today 102. 08/16: Patient was noted to have blood clots in stool overnight and Lovenox was discontinued but was restarted given stable H&H. CPAP trial today. Vancomycin discontinued. 08/09: Noted to be GI bleeding, anticoagulation stopped. GI consulted. No plans for scope. 08/10: No acute events reported overnight. repeat COVID-19 PCR negative 08/11: Patient had a CT abdomen/pelvis which showed DVTs however patient is GI bleeding still and unable to tolerate anticoagulation at this time. Transfer to halfway was canceled. Patient did receive 2 units PRBC today which were ordered yesterday. Hospitalist Physical - Physical exam Narrative exam: General appearance: Present: no acute distress, other (Intubated and unresponsive) - EENT Eyes: Absent: PERRL ENT: poor dentition - Neck Neck: Present: normal ROM - Respiratory Respiratory effort: normal Respiratory: bilateral: diminished - Cardiovascular Rhythm: regular Heart Sounds: Present: S1 & S2. Absent: systolic murmur, diastolic murmur - Extremities Extremities: pulses intact, pulses symmetrical Extremity abnormal: edema Peripheral Pulses: within normal limits - Abdominal General gastrointestinal: soft, non-tender, non-distended, normal bowel sounds - Integumentary Integumentary: Present: right hand macerated, leaking fluid - Psychiatric Psychiatric: other - Neurologic Neurologic: other, Pupils not reactive, weak to absent cough/gag, no response to painful stimuli - Allied Health Allied health notes reviewed: nursing, RT, social work - Constitutional Vitals: Temp Pulse Resp BP Pulse Ox 99 F 93 H 20 121/73 100 08/11/22 18:00 08/11/22 18:00 08/11/22 18:00 08/11/22 18:00 08/11/22 18:00 General appearance: Present: no acute distress, other (Intubated and unresponsive) HEART Score - HEART Score Troponin: Troponin T 0.049 ng/mL (0.00-0.029) H D 07/26/22 15:36 Results - Labs CBC & Chem 7: 08/11/22 04:52 08/11/22 04:52 Labs: Laboratory Last Values WBC 7.7 K/mm3 (4.5-11.0) 08/11/22 04:52 RBC 2.43 M/mm3 (3.65-5.03) L 08/11/22 04:52 Hgb 6.8 gm/dl (11.8-15.2) L 08/11/22 04:52 Hgb 7.0 gm/dl (11.8-15.2) L 08/11/22 04:52 Hct 21.4 % (35.5-45.6) L 08/11/22 04:52 Hct 22.1 % (35.5-45.6) L 08/11/22 04:52 MCV 88 fl (84-94) 08/11/22 04:52 MCH 28 pg (28-32) 08/11/22 04:52 MCHC 32 % (32-34) 08/11/22 04:52 RDW 15.5 % (13.2-15.2) H 08/11/22 04:52 Plt Count 191 K/mm3 (140-440) 08/11/22 04:52 Lymph % (Auto) 10.6 % (13.4-35.0) L 08/07/22 04:16 [place] % (Auto) 5.4 % (0.0-7.3) 08/07/22 04:16 Eos % (Auto) 0.7 % (0.0-4.3) 08/07/22 04:16 Baso % (Auto) 0.2 % (0.0-1.8) 08/07/22 04:16 Lymph # (Auto) 0.9 K/mm3 (1.2-5.4) L 08/07/22 04:16 [place] # (Auto) 0.4 K/mm3 (0.0-0.8) 08/07/22 04:16 Eos # (Auto) 0.1 K/mm3 (0.0-0.4) 08/07/22 04:16 Baso # (Auto) 0.0 K/mm3 (0.0-0.1) 08/07/22 04:16 Add Manual Diff Complete 07/27/22 03:50 Total Counted 100 07/27/22 03:50 Seg Neutrophils % 83.1 % (40.0-70.0) H 08/07/22 04:16 Seg Neuts % (Manual) 78.0 % (40.0-70.0) H 07/27/22 03:50 Band Neutrophils % 16.0 % 07/27/22 03:50 Lymphocytes % (Manual) 3.0 % (13.4-35.0) L 07/27/22 03:50 Reactive Lymphs % (Man) 0 % 07/27/22 03:50 Monocytes % (Manual) 2.0 % (0.0-7.3) 07/27/22 03:50 Eosinophils % (Manual) 0 % (0.0-4.3) 07/27/22 03:50 Basophils % (Manual) 0 % (0.0-1.8) 07/27/22 03:50 Metamyelocytes % 1.0 % 07/27/22 03:50 Myelocytes % 0 % 07/27/22 03:50 Promyelocytes % 0 % 07/27/22 03:50 Blast Cells % 0 % 07/27/22 03:50 Nucleated RBC % Not Reportable 07/27/22 03:50 Seg Neutrophils # 6.7 K/mm3 (1.8-7.7) 08/07/22 04:16 Seg Neutrophils # Man 12.0 K/mm3 (1.8-7.7) H 07/27/22 03:50 Band Neutrophils # 2.5 K/mm3 07/27/22 03:50 Lymphocytes # (Manual) 0.5 K/mm3 (1.2-5.4) L 07/27/22 03:50 Abs React Lymphs (Man) 0.0 K/mm3 07/27/22 03:50 Monocytes # (Manual) 0.3 K/mm3 (0.0-0.8) 07/27/22 03:50 Eosinophils # (Manual) 0.0 K/mm3 (0.0-0.4) 07/27/22 03:50 Basophils # (Manual) 0.0 K/mm3 (0.0-0.1) 07/27/22 03:50 Metamyelocytes # 0.2 K/mm3 07/27/22 03:50 Myelocytes # 0.0 K/mm3 07/27/22 03:50 Promyelocytes # 0.0 K/mm3 07/27/22 03:50 Blast Cells # 0.0 K/mm3 07/27/22 03:50 WBC Morphology Not Reportable 07/27/22 03:50 Hypersegmented Neuts Not Reportable 07/27/22 03:50 Hyposegmented Neuts Not Reportable 07/27/22 03:50 Hypogranular Neuts Not Reportable 07/27/22 03:50 Smudge Cells Not Reportable 07/27/22 03:50 Toxic Granulation Not Reportable 07/27/22 03:50 Toxic Vacuolation Not Reportable 07/27/22 03:50 Dohle Bodies Not Reportable 07/27/22 03:50 Pelger-Huet Anomaly Not Reportable 07/27/22 03:50 Jay Rods Not Reportable 07/27/22 03:50 Platelet Estimate Consistent w auto 07/27/22 03:50 Clumped Platelets Not Reportable 07/27/22 03:50 Plt Clumps, EDTA Not Reportable 07/27/22 03:50 Large Platelets Not Reportable 07/27/22 03:50 Giant Platelets Not Reportable 07/27/22 03:50 Platelet Satelliting Not Reportable 07/27/22 03:50 Plt Morphology Comment Not Reportable 07/27/22 03:50 RBC Morphology Not Reportable 07/27/22 03:50 Dimorphic RBCs Not Reportable 07/27/22 03:50 Polychromasia Not Reportable 07/27/22 03:50 Hypochromasia Not Reportable 07/27/22 03:50 Poikilocytosis Not Reportable 07/27/22 03:50 Anisocytosis Not Reportable 07/27/22 03:50 Microcytosis Not Reportable 07/27/22 03:50 Macrocytosis Not Reportable 07/27/22 03:50 Spherocytes Not Reportable 07/27/22 03:50 Pappenheimer Bodies Not Reportable 07/27/22 03:50 Sickle Cells Not Reportable 07/27/22 03:50 Target Cells Not Reportable 07/27/22 03:50 Tear Drop Cells Not Reportable 07/27/22 03:50 Ovalocytes Not Reportable 07/27/22 03:50 Helmet Cells Not Reportable 07/27/22 03:50 Reynolds-[place] Base Bodies Not Reportable 07/27/22 03:50 Buford Rings Not Reportable 07/27/22 03:50 Leonora Cells Not Reportable 07/27/22 03:50 Bite Cells Not Reportable 07/27/22 03:50 Crenated Cell Not Reportable 07/27/22 03:50 Elliptocytes Not Reportable 07/27/22 03:50 Acanthocytes (Spur) Not Reportable 07/27/22 03:50 Rouleaux Not Reportable 07/27/22 03:50 Hemoglobin C Crystals Not Reportable 07/27/22 03:50 Schistocytes Not Reportable 07/27/22 03:50 Malaria parasites Not Reportable 07/27/22 03:50 Peewee Bodies Not Reportable 07/27/22 03:50 Hem Pathologist Commnt No 07/27/22 03:50 PT 14.3 Sec. (12.2-14.9) 07/31/22 04:13 INR 0.97 (0.87-1.13) 07/31/22 04:13 Heparin Anti-Xa, Unfract Negative (Negative) 08/01/22 04:17 ABG pH 7.500 pH Units (7.350-7.450) H 08/03/22 03:35 ABG pCO2 26.7 mm Hg 08/03/22 03:35 ABG pO2 129.6 mm Hg (80.0-90.0) H 08/03/22 03:35 ABG HCO3 20.4 mmol/L (20.0-26.0) 08/03/22 03:35 ABG O2 Saturation 98.7 % (95.0-99.0) 08/03/22 03:35 ABG O2 Content 13.5 (0.0-44) 08/03/22 03:35 ABG Base Excess -2.0 mmol/L (-2.0-3.0) 08/03/22 03:35 ABG Hemoglobin 9.7 gm/dl (14.0-18.0) L 08/03/22 03:35 ABG Carboxyhemoglobin 1.5 % (0.0-5.0) 08/03/22 03:35 ABG Methemoglobin 0.4 % (0.0-1.5) 08/03/22 03:35 VBG pH 7.362 (7.320-7.420) 07/25/22 19:37 Oxyhemoglobin 96.8 % (95.0-99.0) 08/03/22 03:35 FiO2 30 % 08/03/22 03:35 Sodium 138 mmol/L (137-145) 08/11/22 04:52 Potassium 4.2 mmol/L (3.6-5.0) 08/11/22 04:52 Chloride 106.6 mmol/L (98-107) 08/11/22 04:52 Carbon Dioxide 21 mmol/L (22-30) L 08/11/22 04:52 Anion Gap 15 mmol/L 08/11/22 04:52 BUN 20 mg/dL (9-20) 08/11/22 04:52 Creatinine 1.0 mg/dL (0.8-1.3) 08/11/22 04:52 Estimated GFR > 60 ml/min 08/11/22 04:52 BUN/Creatinine Ratio 20 % 08/11/22 04:52 Glucose 137 mg/dL (75-100) H 08/11/22 04:52 POC Glucose 175 mg/dL (70-105) H 08/11/22 12:56 Hemoglobin A1c 12.3 % (4-6) H 07/27/22 12:13 Lactic Acid 9.70 mmol/L (0.7-2.0) H* 07/26/22 15:36 Calcium 7.1 mg/dL (8.4-10.2) L 08/11/22 04:52 Phosphorus 2.50 mg/dL (2.5-4.5) 08/11/22 04:52 Magnesium 1.70 mg/dL (1.7-2.3) 08/11/22 04:52 Total Bilirubin 0.30 mg/dL (0.1-1.2) 08/08/22 04:46 Direct Bilirubin < 0.2 mg/dL (0-0.2) 08/08/22 04:46 Indirect Bilirubin 0.1 mg/dL 08/08/22 04:46 AST 81 units/L (5-40) H 08/08/22 04:46 ALT 42 units/L (7-56) 08/08/22 04:46 Alkaline Phosphatase 116 units/L (35-129) 08/08/22 04:46 Ammonia 64.0 umol/L (25-60) H 07/25/22 19:37 Total Creatine Kinase 158 units/L (55-170) 07/25/22 19:37 CK-MB (CK-2) < 1.0 ng/mL (0.0-4.0) 07/25/22 19:37 CK-MB (CK-2) Rel Index 0.6 (0-4) 07/25/22 19:37 Troponin T 0.049 ng/mL (0.00-0.029) H D 07/26/22 15:36 C-Reactive Protein 21.50 mg/dL (0.00-1.30) H 08/05/22 21:43 Total Protein 5.1 g/dL (6.3-8.2) L 08/08/22 04:46 Albumin 1.7 g/dL (3.9-5) L 08/08/22 04:46 Albumin/Globulin Ratio 0.5 % 08/08/22 04:46 Triglycerides 362 mg/dL (2-149) H 07/25/22 19:37 Cholesterol 126 mg/dL (50-199) 07/25/22 19:37 LDL Cholesterol Direct 44 mg/dL (50-130) L 07/25/22 19:37 HDL Cholesterol 34 mg/dL (40-59) L 07/25/22 19:37 Cholesterol/HDL Ratio 3.70 % 07/25/22 19:37 Serotonin Release Assay See scanned result 08/01/22 04:17 Procalcitonin 0.56 ng/mL (<0.15) 08/05/22 21:43 TSH 2.170 mlU/mL (0.270-4.200) 07/25/22 19:37 Free T4 1.18 ng/dL (0.76-1.46) 07/25/22 19:37 Urine Color Lin (Yellow) 08/05/22 11:00 Urine Turbidity Cloudy (Clear) 08/05/22 11:00 Specific [place] (Man) 1.017 (1.003-1.030) 08/05/22 11:00 Ur Protein (Man) 2+ mg/dL (Negative) 08/05/22 11:00 Ur Ketones (Man) Negative (Negative) 08/05/22 11:00 Ur Nitrite (Man) Negative (Negative) 08/05/22 11:00 Ur Reducing Substances Not Reportable 07/26/22 08:31 Urine Bilirubin (Man) Negative (Negative) 08/05/22 11:00 Urine Ictotest Not Reportable 08/05/22 11:00 Leukocyte Esterase (Man) Negative (Negative) 08/05/22 11:00 Urine WBC (Auto) 6.0 /HPF (0.0-6.0) 08/05/22 11:00 Urine RBC (Auto) 6.0 /HPF (0.0-6.0) 08/05/22 11:00 U Epithel Cells (Auto) 1.0 /HPF (0-13.0) 08/05/22 11:00 Urine Bacteria (Auto) 1+ /HPF (Negative) 08/05/22 11:00 Urine RBC (Manual) 4+ (Negative) 08/05/22 11:00 Ur Renal Epithelial Cell 3 /LPF 07/26/22 08:31 Uric Acid Crystals Few 08/05/22 11:00 Amorphous Crystals Few 08/05/22 11:00 Urine Mucus Few /HPF 08/05/22 11:00 Urine Creatinine 118.4 mg/dL (0.1-20.0) H 07/26/22 18:10 Protein/Creatinin Ratio 1.23 07/26/22 18:10 Urine Sodium 108 mmol/L 07/26/22 18:10 Urine Total Protein 146 mg/dL (5-11.8) H 07/26/22 18:10 Nasal Screen MRSA (PCR) Negative (Negative) 08/05/22 14:00 Heparin-induced Plt Ab Negative (Negative) 08/01/22 04:17 UF Heparin High Dose 0 % Release 08/01/22 04:17 SU UFH Low Dose 0.1 0 % Release 08/01/22 04:17 SU UFH Low Dose 0.5 0 % Release 08/01/22 04:17 SARS-CoV-2 (PCR) Negative (Negative) 08/10/22 10:20 Blood Type AB POSITIVE 08/10/22 23:20 Antibody Screen Negative 08/10/22 23:20 Crossmatch See Detail 08/10/22 23:20 Microbiology: Microbiology 08/05/22 21:56 Peripheral/Venous Blood Culture - Final NO GROWTH AFTER 5 DAYS 08/05/22 21:43 Peripheral/Venous Blood Culture - Final NO GROWTH AFTER 5 DAYS Yañez/IV: Voiding Method Indwelling Catheter Active Medications - Current Medications Current Medications: Generic Name Dose Route Start Last Admin Trade Name Freq PRN Reason Stop Dose Admin Acetaminophen 650 mg 07/26/22 00:31 08/08/22 06:11 Acetaminophen 325 Mg Tab PO 650 mg Q4H PRN Administration Pain MILD(1-3)/Fever >100.5/LANTIGUA Acetaminophen 650 mg 07/26/22 02:04 Acetaminophen 650 Mg Rect Supp SD Q4H PRN Pain, Mild (1-3) Albuterol 2.5 mg 07/26/22 00:31 Albuterol 2.5 Mg/3 Ml Nebu IH Q3HRT PRN Shortness Of Breath Amiodarone HCl 200 mg 08/04/22 11:00 08/11/22 09:49 Amiodarone 200 Mg Tab FEEDTUBE 200 mg BID LIZZIE Administration Atorvastatin Calcium 40 mg 08/04/22 22:00 08/10/22 22:45 Atorvastatin 40 Mg Tab FEEDTUBE 40 mg QHS LIZZIE Administration Calcium Carbonate/Glycine 1,250 mg 08/09/22 10:00 08/11/22 09:52 Calcium Carbonate 1250 Mg/5 Ml Oral Liqd FEEDTUBE 1,250 mg BID LIZZIE Administration Dextrose 50 ml 07/27/22 09:25 08/04/22 06:03 Dextrose 50% In Water (25gm) 50 Ml Syringe IV 50 ml Q30MIN PRN Administration Hypoglycemia Protocol Famotidine 10 mg 07/28/22 10:00 08/11/22 09:49 Famotidine 10 Mg Tab FEEDTUBE 10 mg BID LIZZIE Administration Meropenem/Sodium Chloride 1 gram in 100 mls @ 100 mls/hr 08/06/22 10:00 08/11/22 17:10 Merrem/Ns 1 Gram/100 Ml IV 08/14/22 02:59 100 mls/hr Q8H LIZZIE Administration Protocol Phenylephrine HCl 50 mg/ 250 mls @ 7.47 mls/hr 08/10/22 18:45 Sodium Chloride IV TITR [facility] Protocol 0.5 MCG/KG/MIN Insulin Glargine 20 units 08/08/22 22:00 08/10/22 22:45 Insulin Glargine 100 Units/Ml SUB-Q 20 units QHS LIZZIE Administration Insulin Human Regular 0 units 07/27/22 12:00 08/11/22 17:23 Insulin Regular, Human 100 Units/1 Ml SUB-Q Not Given Q6H [facility] Protocol Multi-Ingred Cream/Lotion/Oil/Oint 1 applic 07/27/22 03:17 07/27/22 03:35 Mineral Oil/Petrolatum, White Ophth Oint 3.5 Gm OU 1 applic PRN PRN Administration Dry Eye(s) Nitroglycerin 0.4 mg 07/26/22 00:31 Nitroglycerin 0.4 Mg Tab Subl SL Q5M PRN Chest Pain Ondansetron HCl 4 mg 07/26/22 00:31 Ondansetron 4 Mg/2 Ml Inj IV Q8H PRN Nausea And Vomiting Sodium Bicarbonate 650 mg 08/04/22 14:00 08/11/22 14:53 Sodium Bicarbonate 650 Mg Tab FEEDTUBE 650 mg TID LIZZIE Administration Sodium Chloride 10 ml 07/26/22 10:00 08/11/22 09:49 Sodium Chloride 0.9% 10 Ml Flush Syringe IV 10 ml BID LIZZIE Administration Sodium Chloride 10 ml 07/26/22 00:31 Sodium Chloride 0.9% 10 Ml Flush Syringe IV PRN PRN LINE FLUSH Nutrition/Malnutrition Assess - Dietary Evaluation Nutrition/Malnutrition Findings: Nutrition Notes Start: 07/26/22 10:25 Freq: Status: Active Protocol: Document 08/07/22 15:00 CM (Rec: 08/07/22 15:13 CM [id number]) Co-Sign 08/07/22 15:00 WW Nutrition Notes Initial or Follow up Brief Note Current Diagnosis Sepsis,Hypertension, Respiratory Failure,Stroke, Hyperlipidemia Other Pertinent Diagnosis s/p Cardiac Arrest, AMS Current Diet TF - Glucerna 45mL/hr Labs/Tests 08/07: K 3.4 Cl 107.8 BUN 21 Glu 216 Pertinent Medications 08/07: Atorvastatin Humulin Height 5 ft 5 in Weight 49.8 kg [place] Body Weight (kg) 61.81 BMI 18.2 Weight Status Underweight Subjective/Other Information RD follow-up per protocol. Pt currently receiving Glucerna @ 45mL/hr. RN reported loose stool 2x q day. No gastric residuals recorded. Pt continues ventilation via tracheostomy. Abdomen large, round, w/ BS+ per physical assessment. No contraindications to continue. GI Symptoms None Skin Integrity/Comment [place] 10 - breakdown / blisters Current % PO Other #2 Nutrition Diagnosis Underweight Diagnosis Progress(for reassessment Continues documentation) #1 Nutrition Diagnosis Inadequate oral intake Diagnosis Progress(for reassessment Continues documentation) Is patient on ventilator? Yes Is Patient Ambulatory and/or Out of Bed No REE-([place]-confined to bed) 1398.456 Kcal/Kg value to use for calculation 31 Approximate Energy Requirements Using 1544 kcal/Kg Calculation Used for Recommendations Kcal/kg Additional Notes Pro needs 1.2-2.0g/k-100g /day Fluid needs per MD. Nutrition Intervention Nutrition Support: Change TF rate to 55mL/hr of Glucerna 1.2. Flush with 100mL q 4hrs. Kcal 1,584 Protein (gm) 79 Fluid (mL) 1,060 % RDI: 102%Kcal /100% AA Goal #1 TF tolerance Goal #2 TF to provide at least 75% energy and pro needs Follow-Up By: 08/14/22 Additional Comments Monitor TF administration, TF tolerance, nutrition-related labs, wt status.
[2022-08-11] MEDS: INSULIN GLARGINE 100 UNITS/ML SUB-Q SCH (22:21)
[2022-08-11 23:14] LABS: Hematocrit 24.5 % (35.5-45.6); Hemoglobin 8.2 gm/dl (11.8-15.2); Mean Corpuscular HGB Conc 33 % (32-34); Mean Corpuscular Volume 88 fl (84-94); Platelet Count 164 K/mm3 (140-440); Red Blood Count 2.78 M/mm3 (3.65-5.03); Red Cell Distribution Width 15.3 % (13.2-15.2)
[2022-08-12] MEDS: INSULIN REGULAR, HUMAN 100 UNITS/1 ML SUB-Q SCH ×4 (01:23→17:27)
[2022-08-12] MEDS: MEROPENEM/NS 1 GRAM/100 ML 1 GRAM/100 ML BAG IV SCH ×3 (01:24→17:28)
[2022-08-12] MEDS: SODIUM BICARBONATE 650 MG TAB FEEDTUBE SCH ×3 (08:22→20:21)
[2022-08-12] MEDS: CALCIUM CARBONATE 1250 MG/5 ML ORAL LIQD FEEDTUBE SCH ×2 (09:08→21:17)
[2022-08-12] MEDS: FAMOTIDINE 10 MG TAB FEEDTUBE SCH ×2 (09:08→21:17)
[2022-08-12] MEDS: AMIODARONE 200 MG TAB FEEDTUBE SCH ×2 (09:08→21:17)
[2022-08-12] MEDS: MINERAL OIL/PETROLATUM, WHITE OPHTH OINT 3.5 GM OU PRN (09:11)
--- NOTE | 2022-08-12 11:04 | Progress Note ---
Assessment and Plan 77 y/o male with cardiac arrest, intubated, not sedated with multisystem organ failure 08/12/22: Unable to anticoagulate. Transfuse if HgB is less than 7. Very very poor prognosis given this most recent series of events. 08/11/22: Stop prophylactic anticoagulation. Transfuse PRBC. Follow up with GI if they want CTA vs CT chest with contrast. Guarded prognosis. 08/10/22: ID following. Continue supportive care. 08/09/22: Still spiking temps. ID following with abx therapy. Await placement 08/08/22: Stopping Vanc. Merrem for 8 days. Hold on imaging of head right now. LFT's are ok. Guarded prognosis. Await placement. 08/07/22: Abx therapy per ID. Tracheal aspirate was respiratory kristin. Bld Cx pending. If continues to spike fevers, need to consider repeat imaging of head (CT vs MRI). Could check for alcalculous cholecysitis. Suggest sending LFT's tomorrow. STill awaiting placement. Overall prognosis is guarded to poor. 08/04/22: CXR in am. Will order sputum as per report, secretions have increased. Abx therapy has stopped. Trach site stable. await placement. If spikes again, needs blood, urine and UA. 08/03/22: Await placement. Continue daily PSV. PT consult. 08/01/22: Follow up surgery recs. Continue supportive care. 07/31/22: Supportive care. Surgery consult for trach and peg. Renal function continues to improve. 07/30/22: Continue supportive measures. Family wants aggressive measures despite MRI findings so needs consult to surgery for trach and peg. Will drop steroids down to 25q8 or 50q12 Sunday. Continue volume as renal function is improving. needs more free water if possible. 07/29/22: Drop steroids to 50q8 starting today. CBC not checked, need to evaluate Platelets. Need to correct electrolytes as well. Family is likely going to want trach and peg based on earlier conversations but awaiting more family. Given recent MRI results, prognosis is very poor. 07/28/22: Hold on Volume today. Drop steroids down to 50q8 starting tomorrow. Follow up MRI. EEG results still pending. Platelets still dropping but no evidence of bleeding. Continue abx therapy. Continue feeds. Prognosis is still guarded. 07/27/22: more volume again today. Echo showed normal EF. Wean pressors for MAPs >65, follow up EEg results. Hopeful to get head CT today. Platelets dropped today, not on heparin. Could be sepsis related. If head CT negative, may need to evaluate abdomen around peg. Will start trickle feeds today and transition of insulin drip. Prognosis is still guarded. 1. IVF resusciation with LR 2. Insulin drip and continue NPO state 3. Attempt to wean pressors for MAPs greater than 65 4. Monitor urine output 5. Broaden abx therapy given current clinical state 6. Follow up echo report 7. Agree with stress dose steroids 8. No sedation 9. EEG pending Overall prognosis is guarded to poor, especially given current clinical exam CCT 31 minutes. Subjective Date of service: 08/12/22 Principal diagnosis: Hypernatremia, ARF Interval history: CTA shows DVT but unable to anticoagulate. Remains unresponsive. Objective Vital Signs - 12hr 08/11/22 08/11/22 08/11/22 23:00 23:18 23:23 Temperature Pulse Rate 90 90 Respiratory 22 2 L Rate Blood Pressure 127/70 116/73 O2 Sat by Pulse 98 100 Oximetry O2 Sat by Pulse 100 Oximetry [ Assessment] 08/12/22 08/12/22 08/12/22 00:00 01:00 02:00 Temperature 98.6 F Pulse Rate 90 90 91 H Respiratory 18 21 21 Rate Blood Pressure 117/63 93/63 116/67 O2 Sat by Pulse 100 100 100 Oximetry O2 Sat by Pulse Oximetry [ Assessment] 08/12/22 08/12/22 08/12/22 03:00 03:50 04:00 Temperature 98.3 F Pulse Rate 87 91 H 92 H Respiratory 14 6 L 23 Rate Blood Pressure 113/65 116/67 116/66 O2 Sat by Pulse 98 100 100 Oximetry O2 Sat by Pulse Oximetry [ Assessment] 08/12/22 08/12/22 08/12/22 05:00 06:00 07:00 Temperature Pulse Rate 95 H 96 H 94 H Respiratory 27 H 24 22 Rate Blood Pressure 126/66 127/68 123/70 O2 Sat by Pulse 100 100 100 Oximetry O2 Sat by Pulse Oximetry [ Assessment] 08/12/22 08/12/22 08:00 08:37 Temperature Pulse Rate 91 H Respiratory 24 Rate Blood Pressure 111/66 O2 Sat by Pulse 100 100 Oximetry O2 Sat by Pulse Oximetry [ Assessment] CBC and BMP: 08/11/22 22:42 08/11/22 04:52 ABG, PT/INR, D-dimer: ABG ABG pH 7.500 pH Units (7.350-7.450) H 08/03/22 03:35 ABG pCO2 26.7 mm Hg 08/03/22 03:35 ABG pO2 129.6 mm Hg (80.0-90.0) H 08/03/22 03:35 ABG O2 Saturation 98.7 % (95.0-99.0) 08/03/22 03:35 PT/INR, D-dimer PT 14.3 Sec. (12.2-14.9) 07/31/22 04:13 INR 0.97 (0.87-1.13) 07/31/22 04:13 Abnormal lab findings: Abnormal Labs 07/25/22 07/25/22 07/25/22 19:37 19:37 19:37 WBC 18.8 H RBC 6.31 H Hgb 18.8 H Hct 57.3 H MCV MCHC RDW Plt Count Lymph % (Auto) Lymph # (Auto) [place] # (Auto) 1.4 H Seg Neutrophils % 70.7 H Seg Neuts % (Manual) Lymphocytes % (Manual) Seg Neutrophils # 13.3 H Seg Neutrophils # Man Lymphocytes # (Manual) ABG pH ABG pO2 ABG HCO3 ABG O2 Saturation ABG Base Excess ABG Hemoglobin Oxyhemoglobin Sodium 149 H Potassium Chloride 110.3 H Carbon Dioxide 18 L BUN 73 H Creatinine 3.3 H Glucose 761 H* POC Glucose Hemoglobin A1c Lactic Acid Calcium 10.6 H Phosphorus Magnesium 3.10 H AST 63 H ALT 64 H Ammonia Troponin T 0.072 H C-Reactive Protein Total Protein 9.0 H Albumin Triglycerides 362 H LDL Cholesterol Direct 44 L HDL Cholesterol 34 L Urine Creatinine Urine Total Protein Crossmatch 07/25/22 07/25/22 07/25/22 19:37 21:08 22:10 WBC RBC Hgb Hct MCV MCHC RDW Plt Count Lymph % (Auto) Lymph # (Auto) [place] # (Auto) Seg Neutrophils % Seg Neuts % (Manual) Lymphocytes % (Manual) Seg Neutrophils # Seg Neutrophils # Man Lymphocytes # (Manual) ABG pH ABG pO2 ABG HCO3 ABG O2 Saturation ABG Base Excess ABG Hemoglobin Oxyhemoglobin Sodium 155 H Potassium Chloride 113.1 H Carbon Dioxide 14 L BUN 74 H Creatinine 3.5 H Glucose 734 H* POC Glucose Hemoglobin A1c Lactic Acid 12.70 H* Calcium Phosphorus Magnesium AST ALT Ammonia 64.0 H Troponin T C-Reactive Protein Total Protein Albumin Triglycerides LDL Cholesterol Direct HDL Cholesterol Urine Creatinine Urine Total Protein Crossmatch 07/25/22 07/25/22 07/26/22 22:20 23:29 00:13 WBC RBC Hgb Hct MCV MCHC RDW Plt Count Lymph % (Auto) Lymph # (Auto) [place] # (Auto) Seg Neutrophils % Seg Neuts % (Manual) Lymphocytes % (Manual) Seg Neutrophils # Seg Neutrophils # Man Lymphocytes # (Manual) ABG pH 7.342 L ABG pO2 318.2 H ABG HCO3 14.4 L ABG O2 Saturation 99.5 H ABG Base Excess -9.4 L ABG Hemoglobin Oxyhemoglobin Sodium 157 H Potassium 3.1 L D Chloride 114.0 H Carbon Dioxide 21 L D BUN 72 H Creatinine 3.7 H Glucose 615 H* POC Glucose > 600 H Hemoglobin A1c Lactic Acid Calcium Phosphorus Magnesium AST ALT Ammonia Troponin T C-Reactive Protein Total Protein Albumin Triglycerides LDL Cholesterol Direct HDL Cholesterol Urine Creatinine Urine Total Protein Crossmatch 07/26/22 07/26/22 07/26/22 00:13 00:38 00:39 WBC 21.4 H RBC 5.88 H Hgb 17.2 H Hct 55.0 H MCV MCHC 31 L RDW 16.0 H Plt Count Lymph % (Auto) Lymph # (Auto) [place] # (Auto) Seg Neutrophils % Seg Neuts % (Manual) 77.0 H Lymphocytes % (Manual) 13.0 L Seg Neutrophils # Seg Neutrophils # Man 16.5 H Lymphocytes # (Manual) ABG pH ABG pO2 ABG HCO3 ABG O2 Saturation ABG Base Excess ABG Hemoglobin Oxyhemoglobin Sodium Potassium Chloride Carbon Dioxide BUN Creatinine Glucose POC Glucose 517 H Hemoglobin A1c Lactic Acid 9.10 H* Calcium Phosphorus Magnesium AST ALT Ammonia Troponin T C-Reactive Protein Total Protein Albumin Triglycerides LDL Cholesterol Direct HDL Cholesterol Urine Creatinine Urine Total Protein Crossmatch 07/26/22 07/26/22 07/26/22 00:39 01:32 02:28 WBC RBC Hgb Hct MCV MCHC RDW Plt Count Lymph % (Auto) Lymph # (Auto) [place] # (Auto) Seg Neutrophils % Seg Neuts % (Manual) Lymphocytes % (Manual) Seg Neutrophils # Seg Neutrophils # Man Lymphocytes # (Manual) ABG pH ABG pO2 ABG HCO3 ABG O2 Saturation ABG Base Excess ABG Hemoglobin Oxyhemoglobin Sodium Potassium Chloride Carbon Dioxide BUN Creatinine Glucose POC Glucose 460 H 237 H Hemoglobin A1c Lactic Acid Calcium Phosphorus 1.20 L D Magnesium 4.10 H AST ALT Ammonia Troponin T C-Reactive Protein Total Protein Albumin Triglycerides LDL Cholesterol Direct HDL Cholesterol Urine Creatinine Urine Total Protein Crossmatch 07/26/22 07/26/22 07/26/22 03:03 03:07 04:11 WBC RBC Hgb Hct MCV MCHC RDW Plt Count Lymph % (Auto) Lymph # (Auto) [place] # (Auto) Seg Neutrophils % Seg Neuts % (Manual) Lymphocytes % (Manual) Seg Neutrophils # Seg Neutrophils # Man Lymphocytes # (Manual) ABG pH ABG pO2 ABG HCO3 ABG O2 Saturation ABG Base Excess ABG Hemoglobin Oxyhemoglobin Sodium Potassium Chloride Carbon Dioxide BUN Creatinine Glucose POC Glucose 433 H 370 H 338 H Hemoglobin A1c Lactic Acid Calcium Phosphorus Magnesium AST ALT Ammonia Troponin T C-Reactive Protein Total Protein Albumin Triglycerides LDL Cholesterol Direct HDL Cholesterol Urine Creatinine Urine Total Protein Crossmatch 07/26/22 07/26/22 07/26/22 04:35 04:35 04:40 WBC RBC Hgb Hct MCV MCHC RDW Plt Count Lymph % (Auto) Lymph # (Auto) [place] # (Auto) Seg Neutrophils % Seg Neuts % (Manual) Lymphocytes % (Manual) Seg Neutrophils # Seg Neutrophils # Man Lymphocytes # (Manual) ABG pH 7.301 L ABG pO2 178.2 H ABG HCO3 11.0 L ABG O2 Saturation 99.1 H ABG Base Excess -13.3 L ABG Hemoglobin Oxyhemoglobin Sodium 162 H* Potassium 3.0 L Chloride 124.8 H Carbon Dioxide 18 L BUN 69 H Creatinine 3.9 H Glucose 385 H POC Glucose Hemoglobin A1c Lactic Acid 8.20 H* Calcium 7.8 L Phosphorus Magnesium AST ALT Ammonia Troponin T C-Reactive Protein Total Protein Albumin Triglycerides LDL Cholesterol Direct HDL Cholesterol Urine Creatinine Urine Total Protein Crossmatch 07/26/22 07/26/22 07/26/22 05:01 06:14 06:52 WBC RBC Hgb Hct MCV MCHC RDW Plt Count Lymph % (Auto) Lymph # (Auto) [place] # (Auto) Seg Neutrophils % Seg Neuts % (Manual) Lymphocytes % (Manual) Seg Neutrophils # Seg Neutrophils # Man Lymphocytes # (Manual) ABG pH ABG pO2 ABG HCO3 ABG O2 Saturation ABG Base Excess ABG Hemoglobin Oxyhemoglobin Sodium Potassium Chloride Carbon Dioxide BUN Creatinine Glucose POC Glucose 347 H 300 H 278 H Hemoglobin A1c Lactic Acid Calcium Phosphorus Magnesium AST ALT Ammonia Troponin T C-Reactive Protein Total Protein Albumin Triglycerides LDL Cholesterol Direct HDL Cholesterol Urine Creatinine Urine Total Protein Crossmatch 07/26/22 07/26/22 07/26/22 07:59 08:58 10:04 WBC RBC Hgb Hct MCV MCHC RDW Plt Count Lymph % (Auto) Lymph # (Auto) [place] # (Auto) Seg Neutrophils % Seg Neuts % (Manual) Lymphocytes % (Manual) Seg Neutrophils # Seg Neutrophils # Man Lymphocytes # (Manual) ABG pH ABG pO2 ABG HCO3 ABG O2 Saturation ABG Base Excess ABG Hemoglobin Oxyhemoglobin Sodium Potassium Chloride Carbon Dioxide BUN Creatinine Glucose POC Glucose 269 H 277 H 244 H Hemoglobin A1c Lactic Acid Calcium Phosphorus Magnesium AST ALT Ammonia Troponin T C-Reactive Protein Total Protein Albumin Triglycerides LDL Cholesterol Direct HDL Cholesterol Urine Creatinine Urine Total Protein Crossmatch 07/26/22 07/26/22 07/26/22 11:03 11:53 13:08 WBC RBC Hgb Hct MCV MCHC RDW Plt Count Lymph % (Auto) Lymph # (Auto) [place] # (Auto) Seg Neutrophils % Seg Neuts % (Manual) Lymphocytes % (Manual) Seg Neutrophils # Seg Neutrophils # Man Lymphocytes # (Manual) ABG pH ABG pO2 ABG HCO3 ABG O2 Saturation ABG Base Excess ABG Hemoglobin Oxyhemoglobin Sodium Potassium Chloride Carbon Dioxide BUN Creatinine Glucose POC Glucose 253 H 213 H 194 H Hemoglobin A1c Lactic Acid Calcium Phosphorus Magnesium AST ALT Ammonia Troponin T C-Reactive Protein Total Protein Albumin Triglycerides LDL Cholesterol Direct HDL Cholesterol Urine Creatinine Urine Total Protein Crossmatch 07/26/22 07/26/22 07/26/22 14:24 14:56 14:57 WBC RBC Hgb Hct MCV MCHC RDW Plt Count Lymph % (Auto) Lymph # (Auto) [place] # (Auto) Seg Neutrophils % Seg Neuts % (Manual) Lymphocytes % (Manual) Seg Neutrophils # Seg Neutrophils # Man Lymphocytes # (Manual) ABG pH ABG pO2 ABG HCO3 ABG O2 Saturation ABG Base Excess ABG Hemoglobin Oxyhemoglobin Sodium Potassium Chloride Carbon Dioxide BUN Creatinine Glucose POC Glucose 185 H 236 H 207 H Hemoglobin A1c Lactic Acid Calcium Phosphorus Magnesium AST ALT Ammonia Troponin T C-Reactive Protein Total Protein Albumin Triglycerides LDL Cholesterol Direct HDL Cholesterol Urine Creatinine Urine Total Protein Crossmatch 07/26/22 07/26/22 07/26/22 15:36 15:36 15:36 WBC RBC Hgb Hct MCV MCHC RDW Plt Count Lymph % (Auto) Lymph # (Auto) [place] # (Auto) Seg Neutrophils % Seg Neuts % (Manual) Lymphocytes % (Manual) Seg Neutrophils # Seg Neutrophils # Man Lymphocytes # (Manual) ABG pH ABG pO2 ABG HCO3 ABG O2 Saturation ABG Base Excess ABG Hemoglobin Oxyhemoglobin Sodium 160 H Potassium Chloride 126.2 H Carbon Dioxide 18 L BUN 59 H Creatinine 3.2 H Glucose 227 H POC Glucose Hemoglobin A1c Lactic Acid 9.70 H* Calcium 7.1 L Phosphorus Magnesium AST ALT Ammonia Troponin T 0.049 H D C-Reactive Protein Total Protein Albumin Triglycerides LDL Cholesterol Direct HDL Cholesterol Urine Creatinine Urine Total Protein Crossmatch 07/26/22 07/26/22 07/26/22 15:57 16:32 17:04 WBC RBC Hgb Hct MCV MCHC RDW Plt Count Lymph % (Auto) Lymph # (Auto) [place] # (Auto) Seg Neutrophils % Seg Neuts % (Manual) Lymphocytes % (Manual) Seg Neutrophils # Seg Neutrophils # Man Lymphocytes # (Manual) ABG pH ABG pO2 ABG HCO3 ABG O2 Saturation ABG Base Excess ABG Hemoglobin Oxyhemoglobin Sodium Potassium Chloride Carbon Dioxide BUN Creatinine Glucose POC Glucose 207 H 189 H 219 H Hemoglobin A1c Lactic Acid Calcium Phosphorus Magnesium AST ALT Ammonia Troponin T C-Reactive Protein Total Protein Albumin Triglycerides LDL Cholesterol Direct HDL Cholesterol Urine Creatinine Urine Total Protein Crossmatch 07/26/22 07/26/22 07/26/22 18:00 18:10 18:52 WBC RBC Hgb Hct MCV MCHC RDW Plt Count Lymph % (Auto) Lymph # (Auto) [place] # (Auto) Seg Neutrophils % Seg Neuts % (Manual) Lymphocytes % (Manual) Seg Neutrophils # Seg Neutrophils # Man Lymphocytes # (Manual) ABG pH ABG pO2 ABG HCO3 ABG O2 Saturation ABG Base Excess ABG Hemoglobin Oxyhemoglobin Sodium Potassium Chloride Carbon Dioxide BUN Creatinine Glucose POC Glucose 197 H 194 H Hemoglobin A1c Lactic Acid Calcium Phosphorus Magnesium AST ALT Ammonia Troponin T C-Reactive Protein Total Protein Albumin Triglycerides LDL Cholesterol Direct HDL Cholesterol Urine Creatinine 118.4 H Urine Total Protein 146 H Crossmatch 07/26/22 07/26/22 07/26/22 20:47 21:30 21:51 WBC RBC Hgb Hct MCV MCHC RDW Plt Count Lymph % (Auto) Lymph # (Auto) [place] # (Auto) Seg Neutrophils % Seg Neuts % (Manual) Lymphocytes % (Manual) Seg Neutrophils # Seg Neutrophils # Man Lymphocytes # (Manual) ABG pH ABG pO2 ABG HCO3 ABG O2 Saturation ABG Base Excess ABG Hemoglobin Oxyhemoglobin Sodium 155 H Potassium Chloride 123.5 H Carbon Dioxide 16 L BUN 53 H Creatinine 2.9 H Glucose 185 H POC Glucose 134 H 124 H Hemoglobin A1c Lactic Acid Calcium 7.0 L Phosphorus Magnesium AST ALT Ammonia Troponin T C-Reactive Protein Total Protein Albumin Triglycerides LDL Cholesterol Direct HDL Cholesterol Urine Creatinine Urine Total Protein Crossmatch 07/26/22 07/26/22 07/27/22 22:47 23:52 00:45 WBC RBC Hgb Hct MCV MCHC RDW Plt Count Lymph % (Auto) Lymph # (Auto) [place] # (Auto) Seg Neutrophils % Seg Neuts % (Manual) Lymphocytes % (Manual) Seg Neutrophils # Seg Neutrophils # Man Lymphocytes # (Manual) ABG pH ABG pO2 ABG HCO3 ABG O2 Saturation ABG Base Excess ABG Hemoglobin Oxyhemoglobin Sodium 155 H Potassium Chloride 124.2 H Carbon Dioxide 19 L BUN 53 H Creatinine 2.5 H Glucose 168 H POC Glucose 138 H 150 H Hemoglobin A1c Lactic Acid Calcium 6.7 L Phosphorus Magnesium AST ALT Ammonia Troponin T C-Reactive Protein Total Protein Albumin Triglycerides LDL Cholesterol Direct HDL Cholesterol Urine Creatinine Urine Total Protein Crossmatch 07/27/22 07/27/22 07/27/22 00:58 02:45 03:50 WBC 15.4 H RBC Hgb Hct MCV MCHC RDW 15.3 H Plt Count 60 L Lymph % (Auto) Lymph # (Auto) [place] # (Auto) Seg Neutrophils % Seg Neuts % (Manual) 78.0 H Lymphocytes % (Manual) 3.0 L Seg Neutrophils # Seg Neutrophils # Man 12.0 H Lymphocytes # (Manual) 0.5 L ABG pH ABG pO2 ABG HCO3 ABG O2 Saturation ABG Base Excess ABG Hemoglobin Oxyhemoglobin Sodium Potassium Chloride Carbon Dioxide BUN Creatinine Glucose POC Glucose 153 H 150 H Hemoglobin A1c Lactic Acid Calcium Phosphorus Magnesium AST ALT Ammonia Troponin T C-Reactive Protein Total Protein Albumin Triglycerides LDL Cholesterol Direct HDL Cholesterol Urine Creatinine Urine Total Protein Crossmatch 07/27/22 07/27/22 07/27/22 03:50 03:55 04:57 WBC RBC Hgb Hct MCV MCHC RDW Plt Count Lymph % (Auto) Lymph # (Auto) [place] # (Auto) Seg Neutrophils % Seg Neuts % (Manual) Lymphocytes % (Manual) Seg Neutrophils # Seg Neutrophils # Man Lymphocytes # (Manual) ABG pH ABG pO2 110.1 H ABG HCO3 13.3 L ABG O2 Saturation ABG Base Excess -9.0 L ABG Hemoglobin 13.1 L Oxyhemoglobin Sodium 154 H Potassium Chloride 123.0 H Carbon Dioxide 19 L BUN 55 H Creatinine 2.8 H Glucose 153 H POC Glucose 112 H Hemoglobin A1c Lactic Acid Calcium 6.8 L Phosphorus 1.30 L Magnesium AST 64 H ALT Ammonia Troponin T C-Reactive Protein Total Protein 4.1 L D Albumin 2.1 L Triglycerides LDL Cholesterol Direct HDL Cholesterol Urine Creatinine Urine Total Protein Crossmatch 07/27/22 07/27/22 07/27/22 08:22 09:30 10:49 WBC RBC Hgb Hct MCV MCHC RDW Plt Count Lymph % (Auto) Lymph # (Auto) [place] # (Auto) Seg Neutrophils % Seg Neuts % (Manual) Lymphocytes % (Manual) Seg Neutrophils # Seg Neutrophils # Man Lymphocytes # (Manual) ABG pH ABG pO2 ABG HCO3 ABG O2 Saturation ABG Base Excess ABG Hemoglobin Oxyhemoglobin Sodium Potassium Chloride Carbon Dioxide BUN Creatinine Glucose POC Glucose 146 H 153 H 163 H Hemoglobin A1c Lactic Acid Calcium Phosphorus Magnesium AST ALT Ammonia Troponin T C-Reactive Protein Total Protein Albumin Triglycerides LDL Cholesterol Direct HDL Cholesterol Urine Creatinine Urine Total Protein Crossmatch 07/27/22 07/27/22 07/27/22 12:13 12:44 17:17 WBC RBC Hgb Hct MCV MCHC RDW Plt Count Lymph % (Auto) Lymph # (Auto) [place] # (Auto) Seg Neutrophils % Seg Neuts % (Manual) Lymphocytes % (Manual) Seg Neutrophils # Seg Neutrophils # Man Lymphocytes # (Manual) ABG pH ABG pO2 ABG HCO3 ABG O2 Saturation ABG Base Excess ABG Hemoglobin Oxyhemoglobin Sodium Potassium Chloride Carbon Dioxide BUN Creatinine Glucose POC Glucose 190 H 287 H Hemoglobin A1c 12.3 H Lactic Acid Calcium Phosphorus Magnesium AST ALT Ammonia Troponin T C-Reactive Protein Total Protein Albumin Triglycerides LDL Cholesterol Direct HDL Cholesterol Urine Creatinine Urine Total Protein Crossmatch 07/28/22 07/28/22 07/28/22 00:22 03:58 04:05 WBC RBC Hgb Hct MCV MCHC RDW Plt Count Lymph % (Auto) Lymph # (Auto) [place] # (Auto) Seg Neutrophils % Seg Neuts % (Manual) Lymphocytes % (Manual) Seg Neutrophils # Seg Neutrophils # Man Lymphocytes # (Manual) ABG pH ABG pO2 171.2 H ABG HCO3 12.3 L ABG O2 Saturation 99.2 H ABG Base Excess -9.7 L ABG Hemoglobin 10.9 L Oxyhemoglobin Sodium 148 H Potassium Chloride 117.0 H Carbon Dioxide 16 L BUN 74 H Creatinine 3.2 H Glucose 471 H POC Glucose 379 H Hemoglobin A1c Lactic Acid Calcium 6.2 L Phosphorus Magnesium AST ALT Ammonia Troponin T C-Reactive Protein Total Protein Albumin Triglycerides LDL Cholesterol Direct HDL Cholesterol Urine Creatinine Urine Total Protein Crossmatch 07/28/22 07/28/22 07/28/22 04:05 05:36 12:50 WBC 13.9 H RBC Hgb 11.2 L Hct MCV MCHC 31 L RDW 15.9 H Plt Count 48 L Lymph % (Auto) Lymph # (Auto) [place] # (Auto) Seg Neutrophils % Seg Neuts % (Manual) Lymphocytes % (Manual) Seg Neutrophils # Seg Neutrophils # Man Lymphocytes # (Manual) ABG pH ABG pO2 ABG HCO3 ABG O2 Saturation ABG Base Excess ABG Hemoglobin Oxyhemoglobin Sodium Potassium Chloride Carbon Dioxide BUN Creatinine Glucose POC Glucose 390 H 399 H Hemoglobin A1c Lactic Acid Calcium Phosphorus Magnesium AST ALT Ammonia Troponin T C-Reactive Protein Total Protein Albumin Triglycerides LDL Cholesterol Direct HDL Cholesterol Urine Creatinine Urine Total Protein Crossmatch 07/28/22 07/28/22 07/28/22 17:27 18:16 23:31 WBC RBC Hgb Hct MCV MCHC RDW Plt Count Lymph % (Auto) Lymph # (Auto) [place] # (Auto) Seg Neutrophils % Seg Neuts % (Manual) Lymphocytes % (Manual) Seg Neutrophils # Seg Neutrophils # Man Lymphocytes # (Manual) ABG pH ABG pO2 ABG HCO3 ABG O2 Saturation ABG Base Excess ABG Hemoglobin Oxyhemoglobin Sodium Potassium Chloride Carbon Dioxide BUN Creatinine Glucose POC Glucose 434 H 331 H Hemoglobin A1c Lactic Acid Calcium Phosphorus 2.00 L D Magnesium AST ALT Ammonia Troponin T C-Reactive Protein Total Protein Albumin Triglycerides LDL Cholesterol Direct HDL Cholesterol Urine Creatinine Urine Total Protein Crossmatch 07/29/22 07/29/22 07/29/22 04:47 05:30 06:10 WBC RBC Hgb Hct MCV MCHC RDW Plt Count Lymph % (Auto) Lymph # (Auto) [place] # (Auto) Seg Neutrophils % Seg Neuts % (Manual) Lymphocytes % (Manual) Seg Neutrophils # Seg Neutrophils # Man Lymphocytes # (Manual) ABG pH 7.498 H ABG pO2 166.4 H ABG HCO3 16.2 L ABG O2 Saturation 99.1 H ABG Base Excess -5.4 L ABG Hemoglobin 10.7 L Oxyhemoglobin Sodium 151 H Potassium 3.5 L D Chloride 120.4 H Carbon Dioxide 17 L BUN 80 H Creatinine 2.8 H Glucose 303 H POC Glucose 261 H Hemoglobin A1c Lactic Acid Calcium 6.9 L Phosphorus Magnesium AST ALT Ammonia Troponin T C-Reactive Protein Total Protein Albumin Triglycerides LDL Cholesterol Direct HDL Cholesterol Urine Creatinine Urine Total Protein Crossmatch 07/29/22 07/29/22 07/29/22 09:18 12:31 13:40 WBC 16.0 H RBC Hgb Hct MCV 96 H MCHC 30 L RDW 17.6 H Plt Count 84 L Lymph % (Auto) Lymph # (Auto) [place] # (Auto) Seg Neutrophils % Seg Neuts % (Manual) Lymphocytes % (Manual) Seg Neutrophils # Seg Neutrophils # Man Lymphocytes # (Manual) ABG pH ABG pO2 ABG HCO3 ABG O2 Saturation ABG Base Excess ABG Hemoglobin Oxyhemoglobin Sodium Potassium Chloride Carbon Dioxide BUN Creatinine Glucose POC Glucose 287 H 291 H Hemoglobin A1c Lactic Acid Calcium Phosphorus Magnesium AST ALT Ammonia Troponin T C-Reactive Protein Total Protein Albumin Triglycerides LDL Cholesterol Direct HDL Cholesterol Urine Creatinine Urine Total Protein Crossmatch 07/29/22 07/29/22 07/30/22 17:19 23:57 04:25 WBC RBC Hgb Hct MCV MCHC RDW Plt Count Lymph % (Auto) Lymph # (Auto) [place] # (Auto) Seg Neutrophils % Seg Neuts % (Manual) Lymphocytes % (Manual) Seg Neutrophils # Seg Neutrophils # Man Lymphocytes # (Manual) ABG pH 7.461 H ABG pO2 123.0 H ABG HCO3 18.6 L ABG O2 Saturation ABG Base Excess -4.1 L ABG Hemoglobin 10.8 L Oxyhemoglobin Sodium Potassium Chloride Carbon Dioxide BUN Creatinine Glucose POC Glucose 272 H 205 H Hemoglobin A1c Lactic Acid Calcium Phosphorus Magnesium AST ALT Ammonia Troponin T C-Reactive Protein Total Protein Albumin Triglycerides LDL Cholesterol Direct HDL Cholesterol Urine Creatinine Urine Total Protein Crossmatch 07/30/22 07/30/22 07/30/22 04:42 04:42 05:17 WBC RBC Hgb 11.1 L Hct 33.1 L D MCV MCHC RDW 16.0 H Plt Count 34 L Lymph % (Auto) Lymph # (Auto) [place] # (Auto) Seg Neutrophils % Seg Neuts % (Manual) Lymphocytes % (Manual) Seg Neutrophils # Seg Neutrophils # Man Lymphocytes # (Manual) ABG pH ABG pO2 ABG HCO3 ABG O2 Saturation ABG Base Excess ABG Hemoglobin Oxyhemoglobin Sodium 148 H Potassium 3.2 L Chloride 116.7 H Carbon Dioxide 18 L BUN 69 H Creatinine 2.0 H Glucose 197 H POC Glucose 185 H Hemoglobin A1c Lactic Acid Calcium 6.8 L Phosphorus 1.70 L Magnesium AST ALT Ammonia Troponin T C-Reactive Protein Total Protein Albumin Triglycerides LDL Cholesterol Direct HDL Cholesterol Urine Creatinine Urine Total Protein Crossmatch 07/30/22 07/30/22 07/30/22 11:41 16:14 23:07 WBC RBC Hgb Hct MCV MCHC RDW Plt Count Lymph % (Auto) Lymph # (Auto) [place] # (Auto) Seg Neutrophils % Seg Neuts % (Manual) Lymphocytes % (Manual) Seg Neutrophils # Seg Neutrophils # Man Lymphocytes # (Manual) ABG pH ABG pO2 ABG HCO3 ABG O2 Saturation ABG Base Excess ABG Hemoglobin Oxyhemoglobin Sodium Potassium Chloride Carbon Dioxide BUN Creatinine Glucose POC Glucose 199 H 173 H 159 H Hemoglobin A1c Lactic Acid Calcium Phosphorus Magnesium AST ALT Ammonia Troponin T C-Reactive Protein Total Protein Albumin Triglycerides LDL Cholesterol Direct HDL Cholesterol Urine Creatinine Urine Total Protein Crossmatch 07/31/22 07/31/22 07/31/22 03:25 04:00 04:13 WBC RBC Hgb 10.5 L Hct 32.8 L MCV MCHC RDW 15.3 H Plt Count 55 L Lymph % (Auto) Lymph # (Auto) [place] # (Auto) Seg Neutrophils % Seg Neuts % (Manual) Lymphocytes % (Manual) Seg Neutrophils # Seg Neutrophils # Man Lymphocytes # (Manual) ABG pH 7.513 H ABG pO2 64.1 L ABG HCO3 ABG O2 Saturation ABG Base Excess ABG Hemoglobin 10.5 L Oxyhemoglobin 93.8 L Sodium 146 H Potassium 3.4 L Chloride 112.5 H Carbon Dioxide 21 L BUN 53 H Creatinine 1.6 H Glucose 151 H POC Glucose Hemoglobin A1c Lactic Acid Calcium 6.4 L Phosphorus Magnesium AST ALT Ammonia Troponin T C-Reactive Protein Total Protein Albumin Triglycerides LDL Cholesterol Direct HDL Cholesterol Urine Creatinine Urine Total Protein Crossmatch 07/31/22 07/31/22 07/31/22 05:39 11:08 16:11 WBC RBC Hgb Hct MCV MCHC RDW Plt Count Lymph % (Auto) Lymph # (Auto) [place] # (Auto) Seg Neutrophils % Seg Neuts % (Manual) Lymphocytes % (Manual) Seg Neutrophils # Seg Neutrophils # Man Lymphocytes # (Manual) ABG pH ABG pO2 ABG HCO3 ABG O2 Saturation ABG Base Excess ABG Hemoglobin Oxyhemoglobin Sodium Potassium Chloride Carbon Dioxide BUN Creatinine Glucose POC Glucose 155 H 132 H 150 H Hemoglobin A1c Lactic Acid Calcium Phosphorus Magnesium AST ALT Ammonia Troponin T C-Reactive Protein Total Protein Albumin Triglycerides LDL Cholesterol Direct HDL Cholesterol Urine Creatinine Urine Total Protein Crossmatch 07/31/22 08/01/22 08/01/22 23:48 04:17 04:17 WBC RBC 3.62 L Hgb 10.6 L Hct 31.8 L MCV MCHC RDW 15.7 H Plt Count 90 L Lymph % (Auto) Lymph # (Auto) [place] # (Auto) Seg Neutrophils % Seg Neuts % (Manual) Lymphocytes % (Manual) Seg Neutrophils # Seg Neutrophils # Man Lymphocytes # (Manual) ABG pH ABG pO2 ABG HCO3 ABG O2 Saturation ABG Base Excess ABG Hemoglobin Oxyhemoglobin Sodium 147 H Potassium 3.3 L Chloride 113.7 H Carbon Dioxide BUN 46 H Creatinine Glucose 141 H POC Glucose 133 H Hemoglobin A1c Lactic Acid Calcium 6.0 L Phosphorus 2.00 L Magnesium 1.50 L AST ALT Ammonia Troponin T C-Reactive Protein Total Protein Albumin Triglycerides LDL Cholesterol Direct HDL Cholesterol Urine Creatinine Urine Total Protein Crossmatch 08/01/22 08/01/22 08/01/22 05:46 11:17 17:44 WBC RBC Hgb Hct MCV MCHC RDW Plt Count Lymph % (Auto) Lymph # (Auto) [place] # (Auto) Seg Neutrophils % Seg Neuts % (Manual) Lymphocytes % (Manual) Seg Neutrophils # Seg Neutrophils # Man Lymphocytes # (Manual) ABG pH ABG pO2 ABG HCO3 ABG O2 Saturation ABG Base Excess ABG Hemoglobin Oxyhemoglobin Sodium Potassium Chloride Carbon Dioxide BUN Creatinine Glucose POC Glucose 116 H 190 H 179 H Hemoglobin A1c Lactic Acid Calcium Phosphorus Magnesium AST ALT Ammonia Troponin T C-Reactive Protein Total Protein Albumin Triglycerides LDL Cholesterol Direct HDL Cholesterol Urine Creatinine Urine Total Protein Crossmatch 08/01/22 08/02/22 08/02/22 23:34 04:48 04:48 WBC RBC 3.61 L Hgb 10.2 L Hct 31.9 L MCV MCHC RDW 15.8 H Plt Count 130 L Lymph % (Auto) Lymph # (Auto) [place] # (Auto) Seg Neutrophils % Seg Neuts % (Manual) Lymphocytes % (Manual) Seg Neutrophils # Seg Neutrophils # Man Lymphocytes # (Manual) ABG pH ABG pO2 ABG HCO3 ABG O2 Saturation ABG Base Excess ABG Hemoglobin Oxyhemoglobin Sodium 148 H Potassium 3.4 L Chloride 113.1 H Carbon Dioxide 16 L BUN 45 H Creatinine Glucose 213 H POC Glucose 193 H Hemoglobin A1c Lactic Acid Calcium 5.9 L* Phosphorus 2.30 L Magnesium AST ALT Ammonia Troponin T C-Reactive Protein Total Protein Albumin Triglycerides LDL Cholesterol Direct HDL Cholesterol Urine Creatinine Urine Total Protein Crossmatch 08/02/22 08/02/22 08/02/22 05:38 23:04 23:30 WBC RBC Hgb Hct MCV MCHC RDW Plt Count Lymph % (Auto) Lymph # (Auto) [place] # (Auto) Seg Neutrophils % Seg Neuts % (Manual) Lymphocytes % (Manual) Seg Neutrophils # Seg Neutrophils # Man Lymphocytes # (Manual) ABG pH ABG pO2 ABG HCO3 ABG O2 Saturation ABG Base Excess ABG Hemoglobin Oxyhemoglobin Sodium Potassium Chloride Carbon Dioxide BUN Creatinine Glucose POC Glucose 193 H 65 L 111 H Hemoglobin A1c Lactic Acid Calcium Phosphorus Magnesium AST ALT Ammonia Troponin T C-Reactive Protein Total Protein Albumin Triglycerides LDL Cholesterol Direct HDL Cholesterol Urine Creatinine Urine Total Protein Crossmatch 08/03/22 08/03/22 08/03/22 03:35 04:40 04:40 WBC 12.7 H RBC 3.36 L Hgb 9.5 L Hct 29.8 L MCV MCHC RDW 15.7 H Plt Count Lymph % (Auto) Lymph # (Auto) [place] # (Auto) Seg Neutrophils % Seg Neuts % (Manual) Lymphocytes % (Manual) Seg Neutrophils # Seg Neutrophils # Man Lymphocytes # (Manual) ABG pH 7.500 H ABG pO2 129.6 H ABG HCO3 ABG O2 Saturation ABG Base Excess ABG Hemoglobin 9.7 L Oxyhemoglobin Sodium Potassium 3.3 L Chloride 107.9 H Carbon Dioxide 21 L BUN 37 H Creatinine Glucose 111 H POC Glucose Hemoglobin A1c Lactic Acid Calcium 5.5 L* Phosphorus Magnesium 1.60 L AST ALT Ammonia Troponin T C-Reactive Protein Total Protein Albumin Triglycerides LDL Cholesterol Direct HDL Cholesterol Urine Creatinine Urine Total Protein Crossmatch 08/03/22 08/03/22 08/04/22 05:24 17:18 00:17 WBC RBC Hgb Hct MCV MCHC RDW Plt Count Lymph % (Auto) Lymph # (Auto) [place] # (Auto) Seg Neutrophils % Seg Neuts % (Manual) Lymphocytes % (Manual) Seg Neutrophils # Seg Neutrophils # Man Lymphocytes # (Manual) ABG pH ABG pO2 ABG HCO3 ABG O2 Saturation ABG Base Excess ABG Hemoglobin Oxyhemoglobin Sodium Potassium Chloride Carbon Dioxide BUN Creatinine Glucose POC Glucose 115 H 111 H 64 L Hemoglobin A1c Lactic Acid Calcium Phosphorus Magnesium AST ALT Ammonia Troponin T C-Reactive Protein Total Protein Albumin Triglycerides LDL Cholesterol Direct HDL Cholesterol Urine Creatinine Urine Total Protein Crossmatch 08/04/22 08/04/22 08/04/22 04:39 04:39 05:36 WBC 14.2 H RBC 3.61 L Hgb 10.3 L Hct 31.2 L MCV MCHC RDW 15.4 H Plt Count Lymph % (Auto) Lymph # (Auto) [place] # (Auto) Seg Neutrophils % Seg Neuts % (Manual) Lymphocytes % (Manual) Seg Neutrophils # Seg Neutrophils # Man Lymphocytes # (Manual) ABG pH ABG pO2 ABG HCO3 ABG O2 Saturation ABG Base Excess ABG Hemoglobin Oxyhemoglobin Sodium Potassium 3.1 L Chloride Carbon Dioxide 18 L BUN 30 H Creatinine Glucose 68 L POC Glucose 68 L Hemoglobin A1c Lactic Acid Calcium 6.1 L Phosphorus 2.00 L D Magnesium AST ALT Ammonia Troponin T C-Reactive Protein Total Protein Albumin Triglycerides LDL Cholesterol Direct HDL Cholesterol Urine Creatinine Urine Total Protein Crossmatch 08/04/22 08/04/22 08/04/22 06:32 11:37 17:53 WBC RBC Hgb Hct MCV MCHC RDW Plt Count Lymph % (Auto) Lymph # (Auto) [place] # (Auto) Seg Neutrophils % Seg Neuts % (Manual) Lymphocytes % (Manual) Seg Neutrophils # Seg Neutrophils # Man Lymphocytes # (Manual) ABG pH ABG pO2 ABG HCO3 ABG O2 Saturation ABG Base Excess ABG Hemoglobin Oxyhemoglobin Sodium Potassium Chloride Carbon Dioxide BUN Creatinine Glucose POC Glucose 110 H 118 H 171 H Hemoglobin A1c Lactic Acid Calcium Phosphorus Magnesium AST ALT Ammonia Troponin T C-Reactive Protein Total Protein Albumin Triglycerides LDL Cholesterol Direct HDL Cholesterol Urine Creatinine Urine Total Protein Crossmatch 08/04/22 08/04/22 08/05/22 23:41 23:43 04:46 WBC 12.5 H RBC Hgb 10.8 L Hct 33.3 L MCV MCHC RDW 15.8 H Plt Count 138 L Lymph % (Auto) Lymph # (Auto) [place] # (Auto) Seg Neutrophils % Seg Neuts % (Manual) Lymphocytes % (Manual) Seg Neutrophils # Seg Neutrophils # Man Lymphocytes # (Manual) ABG pH ABG pO2 ABG HCO3 ABG O2 Saturation ABG Base Excess ABG Hemoglobin Oxyhemoglobin Sodium Potassium Chloride Carbon Dioxide BUN Creatinine Glucose POC Glucose 226 H 218 H Hemoglobin A1c Lactic Acid Calcium Phosphorus Magnesium AST ALT Ammonia Troponin T C-Reactive Protein Total Protein Albumin Triglycerides LDL Cholesterol Direct HDL Cholesterol Urine Creatinine Urine Total Protein Crossmatch 08/05/22 08/05/22 08/05/22 04:46 06:05 11:42 WBC RBC Hgb Hct MCV MCHC RDW Plt Count Lymph % (Auto) Lymph # (Auto) [place] # (Auto) Seg Neutrophils % Seg Neuts % (Manual) Lymphocytes % (Manual) Seg Neutrophils # Seg Neutrophils # Man Lymphocytes # (Manual) ABG pH ABG pO2 ABG HCO3 ABG O2 Saturation ABG Base Excess ABG Hemoglobin Oxyhemoglobin Sodium Potassium Chloride Carbon Dioxide 16 L BUN 29 H Creatinine Glucose 179 H POC Glucose 220 H 180 H Hemoglobin A1c Lactic Acid Calcium 6.1 L Phosphorus Magnesium AST ALT Ammonia Troponin T C-Reactive Protein Total Protein Albumin Triglycerides LDL Cholesterol Direct HDL Cholesterol Urine Creatinine Urine Total Protein Crossmatch 08/05/22 08/05/22 08/05/22 17:39 21:10 21:43 WBC RBC Hgb Hct MCV MCHC RDW Plt Count Lymph % (Auto) Lymph # (Auto) [place] # (Auto) Seg Neutrophils % Seg Neuts % (Manual) Lymphocytes % (Manual) Seg Neutrophils # Seg Neutrophils # Man Lymphocytes # (Manual) ABG pH ABG pO2 ABG HCO3 ABG O2 Saturation ABG Base Excess ABG Hemoglobin Oxyhemoglobin Sodium Potassium Chloride Carbon Dioxide BUN Creatinine Glucose POC Glucose 207 H 185 H Hemoglobin A1c Lactic Acid Calcium Phosphorus Magnesium AST ALT Ammonia Troponin T C-Reactive Protein 21.50 H Total Protein Albumin Triglycerides LDL Cholesterol Direct HDL Cholesterol Urine Creatinine Urine Total Protein Crossmatch 08/05/22 08/06/22 08/06/22 23:38 05:13 05:20 WBC RBC 3.32 L Hgb 9.4 L Hct 29.4 L MCV MCHC RDW 15.6 H Plt Count Lymph % (Auto) Lymph # (Auto) [place] # (Auto) Seg Neutrophils % Seg Neuts % (Manual) Lymphocytes % (Manual) Seg Neutrophils # Seg Neutrophils # Man Lymphocytes # (Manual) ABG pH ABG pO2 ABG HCO3 ABG O2 Saturation ABG Base Excess ABG Hemoglobin Oxyhemoglobin Sodium Potassium Chloride Carbon Dioxide BUN Creatinine Glucose POC Glucose 198 H 182 H Hemoglobin A1c Lactic Acid Calcium Phosphorus Magnesium AST ALT Ammonia Troponin T C-Reactive Protein Total Protein Albumin Triglycerides LDL Cholesterol Direct HDL Cholesterol Urine Creatinine Urine Total Protein Crossmatch 08/06/22 08/06/22 08/06/22 05:20 11:25 16:13 WBC RBC Hgb Hct MCV MCHC RDW Plt Count Lymph % (Auto) Lymph # (Auto) [place] # (Auto) Seg Neutrophils % Seg Neuts % (Manual) Lymphocytes % (Manual) Seg Neutrophils # Seg Neutrophils # Man Lymphocytes # (Manual) ABG pH ABG pO2 ABG HCO3 ABG O2 Saturation ABG Base Excess ABG Hemoglobin Oxyhemoglobin Sodium Potassium Chloride 107.2 H Carbon Dioxide 21 L BUN 25 H Creatinine Glucose 176 H POC Glucose 155 H 176 H Hemoglobin A1c Lactic Acid Calcium 6.1 L Phosphorus 1.80 L D Magnesium 1.60 L AST ALT Ammonia Troponin T C-Reactive Protein Total Protein Albumin Triglycerides LDL Cholesterol Direct HDL Cholesterol Urine Creatinine Urine Total Protein Crossmatch 08/06/22 08/06/22 08/07/22 21:34 23:22 00:02 WBC RBC 2.98 L Hgb 8.4 L Hct 26.2 L MCV MCHC RDW 15.5 H Plt Count Lymph % (Auto) 11.3 L Lymph # (Auto) 0.9 L [place] # (Auto) Seg Neutrophils % 81.9 H Seg Neuts % (Manual) Lymphocytes % (Manual) Seg Neutrophils # Seg Neutrophils # Man Lymphocytes # (Manual) ABG pH ABG pO2 ABG HCO3 ABG O2 Saturation ABG Base Excess ABG Hemoglobin Oxyhemoglobin Sodium Potassium Chloride Carbon Dioxide BUN Creatinine Glucose POC Glucose 206 H 188 H Hemoglobin A1c Lactic Acid Calcium Phosphorus Magnesium AST ALT Ammonia Troponin T C-Reactive Protein Total Protein Albumin Triglycerides LDL Cholesterol Direct HDL Cholesterol Urine Creatinine Urine Total Protein Crossmatch 08/07/22 08/07/22 08/07/22 04:16 04:16 04:49 WBC RBC 3.12 L Hgb 8.8 L Hct 27.4 L MCV MCHC RDW 15.4 H Plt Count Lymph % (Auto) 10.6 L Lymph # (Auto) 0.9 L [place] # (Auto) Seg Neutrophils % 83.1 H Seg Neuts % (Manual) Lymphocytes % (Manual) Seg Neutrophils # Seg Neutrophils # Man Lymphocytes # (Manual) ABG pH ABG pO2 ABG HCO3 ABG O2 Saturation ABG Base Excess ABG Hemoglobin Oxyhemoglobin Sodium Potassium 3.4 L Chloride 107.8 H Carbon Dioxide BUN 21 H Creatinine Glucose 216 H POC Glucose 192 H Hemoglobin A1c Lactic Acid Calcium 6.1 L Phosphorus 2.00 L Magnesium AST 76 H ALT Ammonia Troponin T C-Reactive Protein Total Protein 5.1 L Albumin 1.8 L Triglycerides LDL Cholesterol Direct HDL Cholesterol Urine Creatinine Urine Total Protein Crossmatch 08/07/22 08/07/22 08/07/22 11:28 16:15 22:16 WBC RBC Hgb Hct MCV MCHC RDW Plt Count Lymph % (Auto) Lymph # (Auto) [place] # (Auto) Seg Neutrophils % Seg Neuts % (Manual) Lymphocytes % (Manual) Seg Neutrophils # Seg Neutrophils # Man Lymphocytes # (Manual) ABG pH ABG pO2 ABG HCO3 ABG O2 Saturation ABG Base Excess ABG Hemoglobin Oxyhemoglobin Sodium Potassium Chloride Carbon Dioxide BUN Creatinine Glucose POC Glucose 204 H 203 H 175 H Hemoglobin A1c Lactic Acid Calcium Phosphorus Magnesium AST ALT Ammonia Troponin T C-Reactive Protein Total Protein Albumin Triglycerides LDL Cholesterol Direct HDL Cholesterol Urine Creatinine Urine Total Protein Crossmatch 08/08/22 08/08/22 08/08/22 00:01 04:46 04:46 WBC RBC 3.16 L Hgb 8.9 L Hct 27.4 L MCV MCHC RDW 15.5 H Plt Count Lymph % (Auto) Lymph # (Auto) [place] # (Auto) Seg Neutrophils % Seg Neuts % (Manual) Lymphocytes % (Manual) Seg Neutrophils # Seg Neutrophils # Man Lymphocytes # (Manual) ABG pH ABG pO2 ABG HCO3 ABG O2 Saturation ABG Base Excess ABG Hemoglobin Oxyhemoglobin Sodium Potassium Chloride Carbon Dioxide BUN Creatinine Glucose 200 H POC Glucose 183 H Hemoglobin A1c Lactic Acid Calcium 6.3 L Phosphorus Magnesium AST 81 H ALT Ammonia Troponin T C-Reactive Protein Total Protein 5.1 L Albumin 1.7 L Triglycerides LDL Cholesterol Direct HDL Cholesterol Urine Creatinine Urine Total Protein Crossmatch 08/08/22 08/08/22 08/08/22 06:14 11:27 16:41 WBC RBC Hgb Hct MCV MCHC RDW Plt Count Lymph % (Auto) Lymph # (Auto) [place] # (Auto) Seg Neutrophils % Seg Neuts % (Manual) Lymphocytes % (Manual) Seg Neutrophils # Seg Neutrophils # Man Lymphocytes # (Manual) ABG pH ABG pO2 ABG HCO3 ABG O2 Saturation ABG Base Excess ABG Hemoglobin Oxyhemoglobin Sodium Potassium Chloride Carbon Dioxide BUN Creatinine Glucose POC Glucose 206 H 196 H 199 H Hemoglobin A1c Lactic Acid Calcium Phosphorus Magnesium AST ALT Ammonia Troponin T C-Reactive Protein Total Protein Albumin Triglycerides LDL Cholesterol Direct HDL Cholesterol Urine Creatinine Urine Total Protein Crossmatch 08/08/22 08/08/22 08/09/22 22:50 23:52 04:53 WBC RBC 3.00 L Hgb 8.4 L Hct 26.4 L MCV MCHC RDW 15.7 H Plt Count Lymph % (Auto) Lymph # (Auto) [place] # (Auto) Seg Neutrophils % Seg Neuts % (Manual) Lymphocytes % (Manual) Seg Neutrophils # Seg Neutrophils # Man Lymphocytes # (Manual) ABG pH ABG pO2 ABG HCO3 ABG O2 Saturation ABG Base Excess ABG Hemoglobin Oxyhemoglobin Sodium Potassium Chloride Carbon Dioxide BUN Creatinine Glucose POC Glucose 198 H 226 H Hemoglobin A1c Lactic Acid Calcium Phosphorus Magnesium AST ALT Ammonia Troponin T C-Reactive Protein Total Protein Albumin Triglycerides LDL Cholesterol Direct HDL Cholesterol Urine Creatinine Urine Total Protein Crossmatch 08/09/22 08/09/2222 04:53 05:38 11:29 WBC RBC Hgb Hct MCV MCHC RDW Plt Count Lymph % (Auto) Lymph # (Auto) [place] # (Auto) Seg Neutrophils % Seg Neuts % (Manual) Lymphocytes % (Manual) Seg Neutrophils # Seg Neutrophils # Man Lymphocytes # (Manual) ABG pH ABG pO2 ABG HCO3 ABG O2 Saturation ABG Base Excess ABG Hemoglobin Oxyhemoglobin Sodium Potassium 3.5 L Chloride Carbon Dioxide BUN Creatinine Glucose 181 H POC Glucose 160 H 174 H Hemoglobin A1c Lactic Acid Calcium 6.2 L Phosphorus Magnesium AST ALT Ammonia Troponin T C-Reactive Protein Total Protein Albumin Triglycerides LDL Cholesterol Direct HDL Cholesterol Urine Creatinine Urine Total Protein Crossmatch 08/09/22 08/09/22 08/10/22 16:11 17:31 00:55 WBC RBC Hgb 8.7 L Hct 27.6 L MCV MCHC RDW Plt Count Lymph % (Auto) Lymph # (Auto) [place] # (Auto) Seg Neutrophils % Seg Neuts % (Manual) Lymphocytes % (Manual) Seg Neutrophils # Seg Neutrophils # Man Lymphocytes # (Manual) ABG pH ABG pO2 ABG HCO3 ABG O2 Saturation ABG Base Excess ABG Hemoglobin Oxyhemoglobin Sodium Potassium Chloride Carbon Dioxide BUN Creatinine Glucose POC Glucose 205 H 204 H Hemoglobin A1c Lactic Acid Calcium Phosphorus Magnesium AST ALT Ammonia Troponin T C-Reactive Protein Total Protein Albumin Triglycerides LDL Cholesterol Direct HDL Cholesterol Urine Creatinine Urine Total Protein Crossmatch 08/10/22 08/10/22 08/10/22 05:03 05:03 06:26 WBC RBC 2.92 L Hgb 8.4 L Hct 25.6 L MCV MCHC RDW 15.7 H Plt Count Lymph % (Auto) Lymph # (Auto) [place] # (Auto) Seg Neutrophils % Seg Neuts % (Manual) Lymphocytes % (Manual) Seg Neutrophils # Seg Neutrophils # Man Lymphocytes # (Manual) ABG pH ABG pO2 ABG HCO3 ABG O2 Saturation ABG Base Excess ABG Hemoglobin Oxyhemoglobin Sodium Potassium Chloride Carbon Dioxide BUN Creatinine Glucose 161 H POC Glucose 177 H Hemoglobin A1c Lactic Acid Calcium 6.6 L Phosphorus Magnesium AST ALT Ammonia Troponin T C-Reactive Protein Total Protein Albumin Triglycerides LDL Cholesterol Direct HDL Cholesterol Urine Creatinine Urine Total Protein Crossmatch 08/10/22 08/10/22 08/10/22 12:17 18:34 22:37 WBC RBC Hgb Hct MCV MCHC RDW Plt Count Lymph % (Auto) Lymph # (Auto) [place] # (Auto) Seg Neutrophils % Seg Neuts % (Manual) Lymphocytes % (Manual) Seg Neutrophils # Seg Neutrophils # Man Lymphocytes # (Manual) ABG pH ABG pO2 ABG HCO3 ABG O2 Saturation ABG Base Excess ABG Hemoglobin Oxyhemoglobin Sodium Potassium Chloride Carbon Dioxide BUN Creatinine Glucose POC Glucose 171 H 248 H 188 H Hemoglobin A1c Lactic Acid Calcium Phosphorus Magnesium AST ALT Ammonia Troponin T C-Reactive Protein Total Protein Albumin Triglycerides LDL Cholesterol Direct HDL Cholesterol Urine Creatinine Urine Total Protein Crossmatch 08/10/22 08/11/22 08/11/22 23:20 04:52 04:52 WBC RBC 2.43 L Hgb 7.0 L 6.8 L Hct 22.1 L 21.4 L MCV MCHC RDW 15.5 H Plt Count Lymph % (Auto) Lymph # (Auto) [place] # (Auto) Seg Neutrophils % Seg Neuts % (Manual) Lymphocytes % (Manual) Seg Neutrophils # Seg Neutrophils # Man Lymphocytes # (Manual) ABG pH ABG pO2 ABG HCO3 ABG O2 Saturation ABG Base Excess ABG Hemoglobin Oxyhemoglobin Sodium Potassium Chloride Carbon Dioxide BUN Creatinine Glucose POC Glucose Hemoglobin A1c Lactic Acid Calcium Phosphorus Magnesium AST ALT Ammonia Troponin T C-Reactive Protein Total Protein Albumin Triglycerides LDL Cholesterol Direct HDL Cholesterol Urine Creatinine Urine Total Protein Crossmatch See Detail 08/11/22 08/11/22 08/11/22 04:52 05:29 12:56 WBC RBC Hgb Hct MCV MCHC RDW Plt Count Lymph % (Auto) Lymph # (Auto) [place] # (Auto) Seg Neutrophils % Seg Neuts % (Manual) Lymphocytes % (Manual) Seg Neutrophils # Seg Neutrophils # Man Lymphocytes # (Manual) ABG pH ABG pO2 ABG HCO3 ABG O2 Saturation ABG Base Excess ABG Hemoglobin Oxyhemoglobin Sodium Potassium Chloride Carbon Dioxide 21 L BUN Creatinine Glucose 137 H POC Glucose 151 H 175 H Hemoglobin A1c Lactic Acid Calcium 7.1 L Phosphorus Magnesium AST ALT Ammonia Troponin T C-Reactive Protein Total Protein Albumin Triglycerides LDL Cholesterol Direct HDL Cholesterol Urine Creatinine Urine Total Protein Crossmatch 08/11/22 08/11/22 22:20 22:42 WBC RBC 2.78 L Hgb 8.2 L Hct 24.5 L MCV MCHC RDW 15.3 H Plt Count Lymph % (Auto) Lymph # (Auto) [place] # (Auto) Seg Neutrophils % Seg Neuts % (Manual) Lymphocytes % (Manual) Seg Neutrophils # Seg Neutrophils # Man Lymphocytes # (Manual) ABG pH ABG pO2 ABG HCO3 ABG O2 Saturation ABG Base Excess ABG Hemoglobin Oxyhemoglobin Sodium Potassium Chloride Carbon Dioxide BUN Creatinine Glucose POC Glucose 153 H Hemoglobin A1c Lactic Acid Calcium Phosphorus Magnesium AST ALT Ammonia Troponin T C-Reactive Protein Total Protein Albumin Triglycerides LDL Cholesterol Direct HDL Cholesterol Urine Creatinine Urine Total Protein Crossmatch
--- NOTE | 2022-08-12 12:47 | Gastroenterology Progress Note ---
Assessment and Plan # Rectal bleeding - no signs of recurrent active bleeding overnight. - CTA abdomen pelvis with no acute GI bleeding signs, bilateral DVT, inflammatory change involving rectosigmoid colon can be seen with proctitis or colitis. -Hemodynamically stable. rec: -No plans for colonoscopy at this time. -Recommend supportive care. -Per primary team, vascular surgery consulted for DVT and valuation for IVC filter. -Continue to monitor H&H serially and transfuse as needed. -We will follow. Subjective Date of service: 08/12/22 Principal diagnosis: Hypernatremia, ARF Interval history: No rectal bleeding overnight. BP stable. Remains intubated. Objective - Constitutional Vitals: Temp Pulse Resp BP Pulse Ox 98.3 F 90 24 129/72 100 08/12/22 04:00 08/12/22 11:43 08/12/22 08:00 08/12/22 11:43 08/12/22 11:43 General appearance: no acute distress - Respiratory Respiratory effort: other (intubated and on the vent) - Cardiovascular Rhythm: regular Heart Sounds: Present: S1 & S2 - Gastrointestinal General gastrointestinal: Present: soft, non-tender, non-distended - Integumentary Integumentary: Present: warm - Labs CBC & Chem 7: 08/11/22 22:42 08/11/22 04:52 Labs: Laboratory Results - last 24 hr 08/10/22 08/11/22 08/11/22 23:20 12:56 22:20 WBC RBC Hgb Hct MCV MCH MCHC RDW Plt Count POC Glucose 175 H 153 H Blood Type AB POSITIVE Antibody Screen Negative Crossmatch See Detail 08/11/22 22:42 WBC 7.2 RBC 2.78 L Hgb 8.2 L Hct 24.5 L MCV 88 MCH 29 MCHC 33 RDW 15.3 H Plt Count 164 POC Glucose Blood Type Antibody Screen Crossmatch - Imaging CT scan: report reviewed
--- NOTE | 2022-08-12 14:43 | Progress Note ---
<MISTYSHANE CamaraSweta - Last Filed: 08/12/22 14:50> Assessment and Plan Assessment and plan: Assessment/ Plan This is a 77-year-old male with DM, paroxysmal atrial fibrillation, HTN, CVA (2020) admitted s/p cardiac arrest with acute hypoxic respiratory failure and DKA Neuro: Acute metabolic encephalopathy, hepatic encephalopathy, ALEC ,subclinical status epilepticus ruled out, h/o CVA (2019) -Sluggish pupils, no cough/gag, periodic spontaneous respiration -Neurology consulted, appreciate recommendations -Initial CT head with no acute abnormality -EEG is Likely compatible with diffuse encephalopathy -Per neurology aim for euglycemia and permissive hypertension for now -Ammonia 64 -MRI brain shows diffuse diffusion abnormality involving cerebral and cerebellum compatible with diffuse hypoxia given the patient's history, interval evolving of left OUTPATIENT PSYCHIATRIST infarct from 02/16/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 Cardiac: S/p cardiac arrest, A. fib RVR, h/o hypertension, paroxysmal atrial fibrillation, hyperlipidemia -Patient suffered cardiac arrest on 07/25 in the ED and then was noted to be in A. fib with RVR -Amiodarone PO -Cardiology consulted, appreciate recommendations -Blood pressure monitoring per protocol -S/p vasopressor support with Levophed and vasopressin -MAP goal greater than 65 -Echocardiogram shows EF 50 to 60%, no pericardial effusion -Lipitor Respiratory: Acute hypoxic respiratory failure -CCM consulted, appreciate recommendations -Intubated on 07/25 with a 8.00 ETT in the ED -08/02 s/p trach and peg exchange -A.m. vent settings: Assist-control rate 14, tidal volume 400, PEEP 6, FiO2 35% -See RT notes for titration -A.m. ABG and CXR noted -VAP bundle -SPO2 monitoring GI: Protein calorie malnutrition, r/o GIB -GI consulted, appreciate recommendation -NTR consult for tube feeding -08/02 peg exchange -PPI -Abdomen/pelvis CTA with showed no acute GI bleed, bilateral DVTs, inflammatory changes involving rectosigmoid colon can be seen with proctitis or colitis, incidental findings of bibasilar consolidation concerning for evolving pneumonia : Acute kidney injury likely secondary to vasomotor nephropathy (resolved) -S/p 5 L LR bolus -Nephrology consulted, appreciate recommendations -Serum creatinine 03/08/2020 was 1.3 -Monitor intake and output -Renally dose medications -Avoid nephrotoxic medications -FeNa 1.8% -FWF -Renal ultrasound noted -Trend BMP ID: Sepsis, Klebsiella pneumonia -Hypotension, acute kidney injury, acute respiratory failure, lactic acidosis -Antibiotic therapy merrem -MRSA PCR negative -s/p solu-cortef -f/u blood culture -Monitor WBC and temperature curve Endo: s/p DKA, h/o DM -Presented with anion gap of 21, glucose of 761, VBG 7.362 -s/p Insulin drip -Accu-Cheks q6hr -SSI -Long-acting insulin, titrate as needed -Hemaglobin A1C 12.3 Heme: Acute Anemia, acute bilateral DVTs -Noted on CTA abdomen/pelvis -Patient unable to tolerate anticoagulation in setting of active rectal bleeding -Vascular surgery consulted for possible IVC filter -HIT negative -Trend CBC -Transfuse hemoglobin less than 7 -S/p 2 units PRBC -SCDs to BLE while in bed The high probability of a clinically significant, sudden or life threatening deterioration of the [multi] system(s) required my full and direct attention, intervention and personal management. The aggregate critical care time was [60] minutes. This time is in addition to time spent performing reported procedures but includes the following: [x] Data Review and interpretation [x] Patient assessment and monitoring of vital signs [x] Documentation [x] Medication orders and management Disposition Plan: icu Total Time Spent with Patient (Minutes): 60 History Interval history: This is a 77-year-old male who is residential patient at [facility] with DM, paroxysmal atrial fibrillation, HTN, CVA (2020) presents the emergency department on 07/26 via EMS with hypoglycemia and unresponsiveness. In the emergency department patient was deciding 7% on room air and was placed on nonrebreather but sats have increased to greater than 81% and the patient was obtunded therefore ED physician decided to intubate the patient. Per documentation after intubation patient went into PEA arrest and ACLS was initiated and ROSC was achieved after approximately 13 minutes. Work-up in the emergency department revealed leukocytosis, hyponatremia 155, elevated BUN/creatinine at 3.5/74, anion gap metabolic acidosis and hyperglycemia 734. Patient was admitted to the hospital service with consults to cardiology, CCM and nephrology on DKA protocol on mechanical ventilation. Hospital course to date: 07/26: Patient is on any sedation, very sluggish pupillary response, no cough/gag noted, no seizure activity. Neurology recs repeat CT head without contrast or MRI brain without contrast when clinically stable. Patient also had a EEG completed today. Patient is currently maxed on Levophed and vasopressin. Given several LR boluses today. Antibiotics broadened and stress dose steroids added. 07/27: Weaning pressors, phosphorus repleted, SSI and long-acting insulin initiated, tube feeding initiated. Patient now has a hypoactive cough/gag. CT head pending. LR bolus. Thrombocytopenia noted. Cardiology would like to s tart heparin drip due to atrial fibrillation however would like neurology input prior to. 07/28: Patient remains off of vasopressors, patient had MRI today. Worsening renal function noted. Cardiology will hold off amiodarone due to thrombocytopenia. No acute events reported overnight. 07/29: I had an extensive conversation with son and at bedside to with the help of an sales order specialist through the rivet tapping machine operator line. Explained thoroughly of presentation to the ED from documentation, cardiac arrest, CT head and MRI brain findings. They are still electing to continue aggressive care and would like hospital assistance with getting a visa for youngest son to come to the [facility] from [place]. technical sales manager is aware of request. Steroid taper started. CBC pending. Will be repleted. Hypernatremia improving. 07/30: LR bolus, renal function is improved, thrombocytopenia worse. Likely cons ult surgery for trach/peg as per family requests to continue care. No acute events overnight. 07/31: Patient's mentation is unchanged. Remains on low vent setting. D/w [facility] general surgery consulted for possible trach and PEG. Renal function is improving, still hypenatremic, continue FWF per Nephrology. K repleted, continue to - Monitor and replace electrolytes as needed. Patient remains in SR on the monitor, VSS. Amiodarone gtt transitioned to PO amio per Cardio. 08/01: Condition unchanged, remains stable on low vent setting. Renal function continue to improve with persistent hypernatremia, continue FWF per Nephro. General Surgery recommendations noted. D/w General surgery, plan for possible trach and PEG exchange tomorrow or . 08/02: Remains stable on low vent settings. NPO since after midnight for possible trach/PEG today by General Surgery. Patient remains hypernatremic and due to NPO status, FWF was held. Will initiated low dose D5W gtt for now. And also to prevent hypoglycemia while NPO, patient is on Lantus BID. Currently on steroids taper, will hold tonight does and reduce Lantus to Qhs starting tomorrow. Close monitoring of BG and electrolytes. Nephrology is also following. 08/03: S/p trach and PEG exchange. Remains stable on the vent with no complications. Tolerating TF and also Tolerated 2hrs of PSV trial this am. Continue to taper IV steroids, qhs Lantus adjusted to avoid hypoglycemia. Hypernatremia improved, continue FWF per Nephro. Possible LTAC placement, case management to arrange. 08/04: ABRAM overnight. Sodium normalized this morning, electrolytes repleted, continue to monitor and replace electrolytes as needed. Nephrology is also following. Hypoglycemic overnight, TF not yet at goal, will hold Lantus for now. Continue daily PSV trial as tolerated. Possible LTAC placement, case management to arrange. 08/05: Now with thick secretions orally and via ETT, with persistent fevers. This am CXR suggesting possible developing lower lobe PNA. VSS. Will panculture and initiate empiric IV abx- Cefepine. Check CRP and procal. Remove Yañez catheter and follow Yañez removal protocol. ID was also consulted for further recs. TF is now at goal, hyperglycemic today, will resume qhs Lantus. Hyponatremia resolved, FWF adjusted. 08/06: Remains stable on low vent settings. Still with low grade fevers, procal and repeat cultures pending. ID recommendations noted. C/f for possible allergic reaction vs skin infection due to persistent skin blisters. Cefepine switched to Merrem and Vanco. Check CBC with Diff, continue to follow up on cultures. 08/07: No acute events reported overnight, T-max today 102. 08/16: Patient was noted to have blood clots in stool overnight and Lovenox was discontinued but was restarted given stable H&H. CPAP trial today. Vancomycin discontinued. 08/09: Noted to be GI bleeding, anticoagulation stopped. GI consulted. No plans for scope. 08/10: No acute events reported overnight. repeat COVID-19 PCR negative 08/11: Patient had a CT abdomen/pelvis which showed DVTs however patient is GI bleeding still and unable to tolerate anticoagulation at this time. Transfer to residential was canceled. Patient did receive 2 units PRBC today which were ordered yesterday. 08/12: DVTs noted but unable to tolerate coagulation in setting of recent GI bleeding with symptomatic anemia therefore IR consulted for possible IVC placement. No further GI bleeding noted by RN. No acute events reported overnight. Hospitalist Physical - Physical exam Narrative exam: General appearance: Present: no acute distress, other (Intubated and unresponsive) - EENT Eyes: Absent: PERRL ENT: poor dentition - Neck Neck: Present: normal ROM - Respiratory Respiratory effort: normal Respiratory: bilateral: diminished - Cardiovascular Rhythm: regular Heart Sounds: Present: S1 & S2. Absent: systolic murmur, diastolic murmur - Extremities Extremities: pulses intact, pulses symmetrical Extremity abnormal: edema Peripheral Pulses: within normal limits - Abdominal General gastrointestinal: soft, non-tender, non-distended, normal bowel sounds - Integumentary Integumentary: Present: right hand macerated, leaking fluid - Psychiatric Psychiatric: other - Neurologic Neurologic: other, Pupils not reactive, weak to absent cough/gag, no response to painful stimuli - Allied Health Allied health notes reviewed: nursing, RT, social work - Constitutional Vitals: Temp Pulse Resp BP Pulse Ox 98.3 F 90 24 129/72 100 08/12/22 04:00 08/12/22 11:43 08/12/22 08:00 08/12/22 11:43 08/12/22 11:43 General appearance: Present: no acute distress, other (Intubated and unresponsive) HEART Score - HEART Score Troponin: Troponin T 0.049 ng/mL (0.00-0.029) H D 07/26/22 15:36 Results - Labs CBC & Chem 7: 08/11/22 22:42 08/11/22 04:52 Labs: Laboratory Last Values WBC 7.2 K/mm3 (4.5-11.0) 08/11/22 22:42 RBC 2.78 M/mm3 (3.65-5.03) L 08/11/22 22:42 Hgb 8.2 gm/dl (11.8-15.2) L 08/11/22 22:42 Hct 24.5 % (35.5-45.6) L 08/11/22 22:42 MCV 88 fl (84-94) 08/11/22 22:42 MCH 29 pg (28-32) 08/11/22 22:42 MCHC 33 % (32-34) 08/11/22 22:42 RDW 15.3 % (13.2-15.2) H 08/11/22 22:42 Plt Count 164 K/mm3 (140-440) 08/11/22 22:42 Lymph % (Auto) 10.6 % (13.4-35.0) L 08/07/22 04:16 [place] % (Auto) 5.4 % (0.0-7.3) 08/07/22 04:16 Eos % (Auto) 0.7 % (0.0-4.3) 08/07/22 04:16 Baso % (Auto) 0.2 % (0.0-1.8) 08/07/22 04:16 Lymph # (Auto) 0.9 K/mm3 (1.2-5.4) L 08/07/22 04:16 [place] # (Auto) 0.4 K/mm3 (0.0-0.8) 08/07/22 04:16 Eos # (Auto) 0.1 K/mm3 (0.0-0.4) 08/07/22 04:16 Baso # (Auto) 0.0 K/mm3 (0.0-0.1) 08/07/22 04:16 Add Manual Diff Complete 07/27/22 03:50 Total Counted 100 07/27/22 03:50 Seg Neutrophils % 83.1 % (40.0-70.0) H 08/07/22 04:16 Seg Neuts % (Manual) 78.0 % (40.0-70.0) H 07/27/22 03:50 Band Neutrophils % 16.0 % 07/27/22 03:50 Lymphocytes % (Manual) 3.0 % (13.4-35.0) L 07/27/22 03:50 Reactive Lymphs % (Man) 0 % 07/27/22 03:50 Monocytes % (Manual) 2.0 % (0.0-7.3) 07/27/22 03:50 Eosinophils % (Manual) 0 % (0.0-4.3) 07/27/22 03:50 Basophils % (Manual) 0 % (0.0-1.8) 07/27/22 03:50 Metamyelocytes % 1.0 % 07/27/22 03:50 Myelocytes % 0 % 07/27/22 03:50 Promyelocytes % 0 % 07/27/22 03:50 Blast Cells % 0 % 07/27/22 03:50 Nucleated RBC % Not Reportable 07/27/22 03:50 Seg Neutrophils # 6.7 K/mm3 (1.8-7.7) 08/07/22 04:16 Seg Neutrophils # Man 12.0 K/mm3 (1.8-7.7) H 07/27/22 03:50 Band Neutrophils # 2.5 K/mm3 07/27/22 03:50 Lymphocytes # (Manual) 0.5 K/mm3 (1.2-5.4) L 07/27/22 03:50 Abs React Lymphs (Man) 0.0 K/mm3 07/27/22 03:50 Monocytes # (Manual) 0.3 K/mm3 (0.0-0.8) 07/27/22 03:50 Eosinophils # (Manual) 0.0 K/mm3 (0.0-0.4) 07/27/22 03:50 Basophils # (Manual) 0.0 K/mm3 (0.0-0.1) 07/27/22 03:50 Metamyelocytes # 0.2 K/mm3 07/27/22 03:50 Myelocytes # 0.0 K/mm3 07/27/22 03:50 Promyelocytes # 0.0 K/mm3 07/27/22 03:50 Blast Cells # 0.0 K/mm3 07/27/22 03:50 WBC Morphology Not Reportable 07/27/22 03:50 Hypersegmented Neuts Not Reportable 07/27/22 03:50 Hyposegmented Neuts Not Reportable 07/27/22 03:50 Hypogranular Neuts Not Reportable 07/27/22 03:50 Smudge Cells Not Reportable 07/27/22 03:50 Toxic Granulation Not Reportable 07/27/22 03:50 Toxic Vacuolation Not Reportable 07/27/22 03:50 Dohle Bodies Not Reportable 07/27/22 03:50 Pelger-Huet Anomaly Not Reportable 07/27/22 03:50 Jay Rods Not Reportable 07/27/22 03:50 Platelet Estimate Consistent w auto 07/27/22 03:50 Clumped Platelets Not Reportable 07/27/22 03:50 Plt Clumps, EDTA Not Reportable 07/27/22 03:50 Large Platelets Not Reportable 07/27/22 03:50 Giant Platelets Not Reportable 07/27/22 03:50 Platelet Satelliting Not Reportable 07/27/22 03:50 Plt Morphology Comment Not Reportable 07/27/22 03:50 RBC Morphology Not Reportable 07/27/22 03:50 Dimorphic RBCs Not Reportable 07/27/22 03:50 Polychromasia Not Reportable 07/27/22 03:50 Hypochromasia Not Reportable 07/27/22 03:50 Poikilocytosis Not Reportable 07/27/22 03:50 Anisocytosis Not Reportable 07/27/22 03:50 Microcytosis Not Reportable 07/27/22 03:50 Macrocytosis Not Reportable 07/27/22 03:50 Spherocytes Not Reportable 07/27/22 03:50 Pappenheimer Bodies Not Reportable 07/27/22 03:50 Sickle Cells Not Reportable 07/27/22 03:50 Target Cells Not Reportable 07/27/22 03:50 Tear Drop Cells Not Reportable 07/27/22 03:50 Ovalocytes Not Reportable 07/27/22 03:50 Helmet Cells Not Reportable 07/27/22 03:50 [place] Bodies Not Reportable 07/27/22 03:50 [place] Rings Not Reportable 07/27/22 03:50 [place] Cells Not Reportable 07/27/22 03:50 Bite Cells Not Reportable 07/27/22 03:50 Crenated Cell Not Reportable 07/27/22 03:50 Elliptocytes Not Reportable 07/27/22 03:50 Acanthocytes (Spur) Not Reportable 07/27/22 03:50 Rouleaux Not Reportable 07/27/22 03:50 Hemoglobin C Crystals Not Reportable 07/27/22 03:50 Schistocytes Not Reportable 07/27/22 03:50 Malaria parasites Not Reportable 07/27/22 03:50 [place] Bodies Not Reportable 07/27/22 03:50 Hem Pathologist Commnt No 07/27/22 03:50 PT 14.3 Sec. (12.2-14.9) 07/31/22 04:13 INR 0.97 (0.87-1.13) 07/31/22 04:13 Heparin Anti-Xa, Unfract Negative (Negative) 08/01/22 04:17 ABG pH 7.500 pH Units (7.350-7.450) H 08/03/22 03:35 ABG pCO2 26.7 mm Hg 08/03/22 03:35 ABG pO2 129.6 mm Hg (80.0-90.0) H 08/03/22 03:35 ABG HCO3 20.4 mmol/L (20.0-26.0) 08/03/22 03:35 ABG O2 Saturation 98.7 % (95.0-99.0) 08/03/22 03:35 ABG O2 Content 13.5 (0.0-44) 08/03/22 03:35 ABG Base Excess -2.0 mmol/L (-2.0-3.0) 08/03/22 03:35 ABG Hemoglobin 9.7 gm/dl (14.0-18.0) L 08/03/22 03:35 ABG Carboxyhemoglobin 1.5 % (0.0-5.0) 08/03/22 03:35 ABG Methemoglobin 0.4 % (0.0-1.5) 08/03/22 03:35 VBG pH 7.362 (7.320-7.420) 07/25/22 19:37 Oxyhemoglobin 96.8 % (95.0-99.0) 08/03/22 03:35 FiO2 30 % 08/03/22 03:35 Sodium 138 mmol/L (137-145) 08/11/22 04:52 Potassium 4.2 mmol/L (3.6-5.0) 08/11/22 04:52 Chloride 106.6 mmol/L (98-107) 08/11/22 04:52 Carbon Dioxide 21 mmol/L (22-30) L 08/11/22 04:52 Anion Gap 15 mmol/L 08/11/22 04:52 BUN 20 mg/dL (9-20) 08/11/22 04:52 Creatinine 1.0 mg/dL (0.8-1.3) 08/11/22 04:52 Estimated GFR > 60 ml/min 08/11/22 04:52 BUN/Creatinine Ratio 20 % 08/11/22 04:52 Glucose 137 mg/dL (75-100) H 08/11/22 04:52 POC Glucose 153 mg/dL (70-105) H 08/11/22 22:20 Hemoglobin A1c 12.3 % (4-6) H 07/27/22 12:13 Lactic Acid 9.70 mmol/L (0.7-2.0) H* 07/26/22 15:36 Calcium 7.1 mg/dL (8.4-10.2) L 08/11/22 04:52 Phosphorus 2.50 mg/dL (2.5-4.5) 08/11/22 04:52 Magnesium 1.70 mg/dL (1.7-2.3) 08/11/22 04:52 Total Bilirubin 0.30 mg/dL (0.1-1.2) 08/08/22 04:46 Direct Bilirubin < 0.2 mg/dL (0-0.2) 08/08/22 04:46 Indirect Bilirubin 0.1 mg/dL 08/08/22 04:46 AST 81 units/L (5-40) H 08/08/22 04:46 ALT 42 units/L (7-56) 08/08/22 04:46 Alkaline Phosphatase 116 units/L (35-129) 08/08/22 04:46 Ammonia 64.0 umol/L (25-60) H 07/25/22 19:37 Total Creatine Kinase 158 units/L (55-170) 07/25/22 19:37 CK-MB (CK-2) < 1.0 ng/mL (0.0-4.0) 07/25/22 19:37 CK-MB (CK-2) Rel Index 0.6 (0-4) 07/25/22 19:37 Troponin T 0.049 ng/mL (0.00-0.029) H D 07/26/22 15:36 C-Reactive Protein 21.50 mg/dL (0.00-1.30) H 08/05/22 21:43 Total Protein 5.1 g/dL (6.3-8.2) L 08/08/22 04:46 Albumin 1.7 g/dL (3.9-5) L 08/08/22 04:46 Albumin/Globulin Ratio 0.5 % 08/08/22 04:46 Triglycerides 362 mg/dL (2-149) H 07/25/22 19:37 Cholesterol 126 mg/dL (50-199) 07/25/22 19:37 LDL Cholesterol Direct 44 mg/dL (50-130) L 07/25/22 19:37 HDL Cholesterol 34 mg/dL (40-59) L 07/25/22 19:37 Cholesterol/HDL Ratio 3.70 % 07/25/22 19:37 Serotonin Release Assay See scanned result 08/01/22 04:17 Procalcitonin 0.56 ng/mL (<0.15) 08/05/22 21:43 TSH 2.170 mlU/mL (0.270-4.200) 07/25/22 19:37 Free T4 1.18 ng/dL (0.76-1.46) 07/25/22 19:37 Urine Color Lin (Yellow) 08/05/22 11:00 Urine Turbidity Cloudy (Clear) 08/05/22 11:00 Specific [place] (Man) 1.017 (1.003-1.030) 08/05/22 11:00 Ur Protein (Man) 2+ mg/dL (Negative) 08/05/22 11:00 Ur Ketones (Man) Negative (Negative) 08/05/22 11:00 Ur Nitrite (Man) Negative (Negative) 08/05/22 11:00 Ur Reducing Substances Not Reportable 07/26/22 08:31 Urine Bilirubin (Man) Negative (Negative) 08/05/22 11:00 Urine Ictotest Not Reportable 08/05/22 11:00 Leukocyte Esterase (Man) Negative (Negative) 08/05/22 11:00 Urine WBC (Auto) 6.0 /HPF (0.0-6.0) 08/05/22 11:00 Urine RBC (Auto) 6.0 /HPF (0.0-6.0) 08/05/22 11:00 U Epithel Cells (Auto) 1.0 /HPF (0-13.0) 08/05/22 11:00 Urine Bacteria (Auto) 1+ /HPF (Negative) 08/05/22 11:00 Urine RBC (Manual) 4+ (Negative) 08/05/22 11:00 Ur Renal Epithelial Cell 3 /LPF 07/26/22 08:31 Uric Acid Crystals Few 08/05/22 11:00 Amorphous Crystals Few 08/05/22 11:00 Urine Mucus Few /HPF 08/05/22 11:00 Urine Creatinine 118.4 mg/dL (0.1-20.0) H 07/26/22 18:10 Protein/Creatinin Ratio 1.23 07/26/22 18:10 Urine Sodium 108 mmol/L 07/26/22 18:10 Urine Total Protein 146 mg/dL (5-11.8) H 07/26/22 18:10 Nasal Screen MRSA (PCR) Negative (Negative) 08/05/22 14:00 Heparin-induced Plt Ab Negative (Negative) 08/01/22 04:17 UF Heparin High Dose 0 % Release 08/01/22 04:17 SU UFH Low Dose 0.1 0 % Release 08/01/22 04:17 SU UFH Low Dose 0.5 0 % Release 08/01/22 04:17 SARS-CoV-2 (PCR) Negative (Negative) 08/10/22 10:20 Blood Type AB POSITIVE 08/10/22 23:20 Antibody Screen Negative 08/10/22 23:20 Crossmatch See Detail 08/10/22 23:20 Yañez/IV: Voiding Method Indwelling Catheter Active Medications - Current Medications Current Medications: Generic Name Dose Route Start Last Admin Trade Name Freq PRN Reason Stop Dose Admin Acetaminophen 650 mg 07/26/22 00:31 08/08/22 06:11 Acetaminophen 325 Mg Tab PO 650 mg Q4H PRN Administration Pain MILD(1-3)/Fever >100.5/LANTIGUA Acetaminophen 650 mg 07/26/22 02:04 Acetaminophen 650 Mg Rect Supp SC Q4H PRN Pain, Mild (1-3) Albuterol 2.5 mg 07/26/22 00:31 Albuterol 2.5 Mg/3 Ml Nebu IH Q3HRT PRN Shortness Of Breath Amiodarone HCl 200 mg 08/04/22 11:00 08/12/22 09:08 Amiodarone 200 Mg Tab FEEDTUBE 200 mg BID LIZZIE Administration Atorvastatin Calcium 40 mg 08/04/22 22:00 08/11/22 22:26 Atorvastatin 40 Mg Tab FEEDTUBE 40 mg QHS LIZZIE Administration Calcium Carbonate/Glycine 1,250 mg 08/09/22 10:00 08/12/22 09:08 Calcium Carbonate 1250 Mg/5 Ml Oral Liqd FEEDTUBE 1,250 mg BID LIZZIE Administration Dextrose 50 ml 07/27/22 09:25 08/04/22 06:03 Dextrose 50% In Water (25gm) 50 Ml Syringe IV 50 ml Q30MIN PRN Administration Hypoglycemia Protocol Famotidine 10 mg 07/28/22 10:00 08/12/22 09:08 Famotidine 10 Mg Tab FEEDTUBE 10 mg BID LIZZIE Administration Meropenem/Sodium Chloride 1 gram in 100 mls @ 100 mls/hr 08/06/22 10:00 08/12/22 09:08 Merrem/Ns 1 Gram/100 Ml IV 08/14/22 02:59 100 mls/hr Q8H LIZZIE Administration Protocol Phenylephrine HCl 50 mg/ 250 mls @ 7.47 mls/hr 08/10/22 18:45 Sodium Chloride IV TITR LIZZIE Protocol 0.5 MCG/KG/MIN Insulin Glargine 20 units 08/08/22 22:00 08/11/22 22:21 Insulin Glargine 100 Units/Ml SUB-Q 20 units QHS LIZZIE Administration Insulin Human Regular 0 units 07/27/22 12:00 08/12/22 13:06 Insulin Regular, Human 100 Units/1 Ml SUB-Q 3 units Q6H LIZZIE Administration Protocol Multi-Ingred Cream/Lotion/Oil/Oint 1 applic 07/27/22 03:17 08/12/22 09:11 Mineral Oil/Petrolatum, White Ophth Oint 3.5 Gm OU 1 applic PRN PRN Administration Dry Eye(s) Nitroglycerin 0.4 mg 07/26/22 00:31 Nitroglycerin 0.4 Mg Tab Subl SL Q5M PRN Chest Pain Ondansetron HCl 4 mg 07/26/22 00:31 Ondansetron 4 Mg/2 Ml Inj IV Q8H PRN Nausea And Vomiting Sodium Bicarbonate 650 mg 08/04/22 14:00 08/12/22 13:07 Sodium Bicarbonate 650 Mg Tab FEEDTUBE 650 mg TID LIZZIE Administration Sodium Chloride 10 ml 07/26/22 10:00 08/12/22 09:08 Sodium Chloride 0.9% 10 Ml Flush Syringe IV 10 ml BID LIZZIE Administration Sodium Chloride 10 ml 07/26/22 00:31 Sodium Chloride 0.9% 10 Ml Flush Syringe IV PRN PRN LINE FLUSH Nutrition/Malnutrition Assess - Dietary Evaluation Nutrition/Malnutrition Findings: Nutrition Notes Start: 07/26/22 10:25 Freq: Status: Active Protocol: Document 08/07/22 15:00 CM (Rec: 08/07/22 15:13 CM [id number]) Co-Sign 08/07/22 15:00 WW Nutrition Notes Initial or Follow up Brief Note Current Diagnosis Sepsis,Hypertension, Respiratory Failure,Stroke, Hyperlipidemia Other Pertinent Diagnosis s/p Cardiac Arrest, AMS Current Diet TF - Glucerna 45mL/hr Labs/Tests 08/07: K 3.4 Cl 107.8 BUN 21 Glu 216 Pertinent Medications 08/07: Atorvastatin Humulin Height 5 ft 5 in Weight 49.8 kg [place] Body Weight (kg) 61.81 BMI 18.2 Weight Status Underweight Subjective/Other Information RD follow-up per protocol. Pt currently receiving Glucerna @ 45mL/hr. RN reported loose stool 2x q day. No gastric residuals recorded. Pt continues ventilation via tracheostomy. Abdomen large, round, w/ BS+ per physical assessment. No contraindications to continue. GI Symptoms None Skin Integrity/Comment [place] 10 - breakdown / blisters Current % PO Other #2 Nutrition Diagnosis Underweight Diagnosis Progress(for reassessment Continues documentation) #1 Nutrition Diagnosis Inadequate oral intake Diagnosis Progress(for reassessment Continues documentation) Is patient on ventilator? Yes Is Patient Ambulatory and/or Out of Bed No REE-([facility]-confined to bed) 1398.456 Kcal/Kg value to use for calculation 31 Approximate Energy Requirements Using 1544 kcal/Kg Calculation Used for Recommendations Kcal/kg Additional Notes Pro needs 1.2-2.0g/k-100g /day Fluid needs per MD. Nutrition Intervention Nutrition Support: Change TF rate to 55mL/hr of Glucerna 1.2. Flush with 100mL q 4hrs. Kcal 1,584 Protein (gm) 79 Fluid (mL) 1,060 % RDI: 102%Kcal /100% AA Goal #1 TF tolerance Goal #2 TF to provide at least 75% energy and pro needs Follow-Up By: 08/14/22 Additional Comments Monitor TF administration, TF tolerance, nutrition-related labs, wt status. <DASHA DOWNING - Last Filed: 08/13/22 07:13> Assessment and Plan Assessment and plan: I saw and evaluated the patient. I agree with the findings and the plan of care as documented in the Nurse Practitioner's~note, with the following corrections and additions. Hospitalist Physical - Constitutional Vitals: Temp Pulse Resp BP Pulse Ox 99.2 F 97 H 24 154/71 100 08/13/22 04:00 08/13/22 06:00 08/13/22 06:00 08/13/22 06:00 08/13/22 06:00 HEART Score - HEART Score Troponin: Troponin T 0.049 ng/mL (0.00-0.029) H D 07/26/22 15:36 Results - Labs CBC & Chem 7: 08/13/22 04:05 08/11/22 04:52 Labs: Laboratory Last Values WBC 5.4 K/mm3 (4.5-11.0) 08/13/22 04:05 RBC 2.57 M/mm3 (3.65-5.03) L 08/13/22 04:05 Hgb 7.4 gm/dl (11.8-15.2) L 08/13/22 04:05 Hct 22.5 % (35.5-45.6) L 08/13/22 04:05 MCV 87 fl (84-94) 08/13/22 04:05 MCH 29 pg (28-32) 08/13/22 04:05 MCHC 33 % (32-34) 08/13/22 04:05 RDW 15.5 % (13.2-15.2) H 08/13/22 04:05 Plt Count 152 K/mm3 (140-440) 08/13/22 04:05 Lymph % (Auto) 10.6 % (13.4-35.0) L 08/07/22 04:16 [place] % (Auto) 5.4 % (0.0-7.3) 08/07/22 04:16 Eos % (Auto) 0.7 % (0.0-4.3) 08/07/22 04:16 Baso % (Auto) 0.2 % (0.0-1.8) 08/07/22 04:16 Lymph # (Auto) 0.9 K/mm3 (1.2-5.4) L 08/07/22 04:16 [place] # (Auto) 0.4 K/mm3 (0.0-0.8) 08/07/22 04:16 Eos # (Auto) 0.1 K/mm3 (0.0-0.4) 08/07/22 04:16 Baso # (Auto) 0.0 K/mm3 (0.0-0.1) 08/07/22 04:16 Add Manual Diff Complete 07/27/22 03:50 Total Counted 100 07/27/22 03:50 Seg Neutrophils % 83.1 % (40.0-70.0) H 08/07/22 04:16 Seg Neuts % (Manual) 78.0 % (40.0-70.0) H 07/27/22 03:50 Band Neutrophils % 16.0 % 07/27/22 03:50 Lymphocytes % (Manual) 3.0 % (13.4-35.0) L 07/27/22 03:50 Reactive Lymphs % (Man) 0 % 07/27/22 03:50 Monocytes % (Manual) 2.0 % (0.0-7.3) 07/27/22 03:50 Eosinophils % (Manual) 0 % (0.0-4.3) 07/27/22 03:50 Basophils % (Manual) 0 % (0.0-1.8) 07/27/22 03:50 Metamyelocytes % 1.0 % 07/27/22 03:50 Myelocytes % 0 % 07/27/22 03:50 Promyelocytes % 0 % 07/27/22 03:50 Blast Cells % 0 % 07/27/22 03:50 Nucleated RBC % Not Reportable 07/27/22 03:50 Seg Neutrophils # 6.7 K/mm3 (1.8-7.7) 08/07/22 04:16 Seg Neutrophils # Man 12.0 K/mm3 (1.8-7.7) H 07/27/22 03:50 Band Neutrophils # 2.5 K/mm3 07/27/22 03:50 Lymphocytes # (Manual) 0.5 K/mm3 (1.2-5.4) L 07/27/22 03:50 Abs React Lymphs (Man) 0.0 K/mm3 07/27/22 03:50 Monocytes # (Manual) 0.3 K/mm3 (0.0-0.8) 07/27/22 03:50 Eosinophils # (Manual) 0.0 K/mm3 (0.0-0.4) 07/27/22 03:50 Basophils # (Manual) 0.0 K/mm3 (0.0-0.1) 07/27/22 03:50 Metamyelocytes # 0.2 K/mm3 07/27/22 03:50 Myelocytes # 0.0 K/mm3 07/27/22 03:50 Promyelocytes # 0.0 K/mm3 07/27/22 03:50 Blast Cells # 0.0 K/mm3 07/27/22 03:50 WBC Morphology Not Reportable 07/27/22 03:50 Hypersegmented Neuts Not Reportable 07/27/22 03:50 Hyposegmented Neuts Not Reportable 07/27/22 03:50 Hypogranular Neuts Not Reportable 07/27/22 03:50 Smudge Cells Not Reportable 07/27/22 03:50 Toxic Granulation Not Reportable 07/27/22 03:50 Toxic Vacuolation Not Reportable 07/27/22 03:50 Dohle Bodies Not Reportable 07/27/22 03:50 Pelger-Huet Anomaly Not Reportable 07/27/22 03:50 Jay Rods Not Reportable 07/27/22 03:50 Platelet Estimate Consistent w auto 07/27/22 03:50 Clumped Platelets Not Reportable 07/27/22 03:50 Plt Clumps, EDTA Not Reportable 07/27/22 03:50 Large Platelets Not Reportable 07/27/22 03:50 Giant Platelets Not Reportable 07/27/22 03:50 Platelet Satelliting Not Reportable 07/27/22 03:50 Plt Morphology Comment Not Reportable 07/27/22 03:50 RBC Morphology Not Reportable 07/27/22 03:50 Dimorphic RBCs Not Reportable 07/27/22 03:50 Polychromasia Not Reportable 07/27/22 03:50 Hypochromasia Not Reportable 07/27/22 03:50 Poikilocytosis Not Reportable 07/27/22 03:50 Anisocytosis Not Reportable 07/27/22 03:50 Microcytosis Not Reportable 07/27/22 03:50 Macrocytosis Not Reportable 07/27/22 03:50 Spherocytes Not Reportable 07/27/22 03:50 Pappenheimer Bodies Not Reportable 07/27/22 03:50 Sickle Cells Not Reportable 07/27/22 03:50 Target Cells Not Reportable 07/27/22 03:50 Tear Drop Cells Not Reportable 07/27/22 03:50 Ovalocytes Not Reportable 07/27/22 03:50 Helmet Cells Not Reportable 07/27/22 03:50 [place] Bodies Not Reportable 07/27/22 03:50 [place] Rings Not Reportable 07/27/22 03:50 [place] Cells Not Reportable 07/27/22 03:50 Bite Cells Not Reportable 07/27/22 03:50 Crenated Cell Not Reportable 07/27/22 03:50 Elliptocytes Not Reportable 07/27/22 03:50 Acanthocytes (Spur) Not Reportable 07/27/22 03:50 Rouleaux Not Reportable 07/27/22 03:50 Hemoglobin C Crystals Not Reportable 07/27/22 03:50 Schistocytes Not Reportable 07/27/22 03:50 Malaria parasites Not Reportable 07/27/22 03:50 [place] Bodies Not Reportable 07/27/22 03:50 Hem Pathologist Commnt No 07/27/22 03:50 PT 14.3 Sec. (12.2-14.9) 07/31/22 04:13 INR 0.97 (0.87-1.13) 07/31/22 04:13 Heparin Anti-Xa, Unfract Negative (Negative) 08/01/22 04:17 ABG pH 7.500 pH Units (7.350-7.450) H 08/03/22 03:35 ABG pCO2 26.7 mm Hg 08/03/22 03:35 ABG pO2 129.6 mm Hg (80.0-90.0) H 08/03/22 03:35 ABG HCO3 20.4 mmol/L (20.0-26.0) 08/03/22 03:35 ABG O2 Saturation 98.7 % (95.0-99.0) 08/03/22 03:35 ABG O2 Content 13.5 (0.0-44) 08/03/22 03:35 ABG Base Excess -2.0 mmol/L (-2.0-3.0) 08/03/22 03:35 ABG Hemoglobin 9.7 gm/dl (14.0-18.0) L 08/03/22 03:35 ABG Carboxyhemoglobin 1.5 % (0.0-5.0) 08/03/22 03:35 ABG Methemoglobin 0.4 % (0.0-1.5) 08/03/22 03:35 VBG pH 7.362 (7.320-7.420) 07/25/22 19:37 Oxyhemoglobin 96.8 % (95.0-99.0) 08/03/22 03:35 FiO2 30 % 08/03/22 03:35 Sodium 138 mmol/L (137-145) 08/11/22 04:52 Potassium 4.2 mmol/L (3.6-5.0) 08/11/22 04:52 Chloride 106.6 mmol/L (98-107) 08/11/22 04:52 Carbon Dioxide 21 mmol/L (22-30) L 08/11/22 04:52 Anion Gap 15 mmol/L 08/11/22 04:52 BUN 20 mg/dL (9-20) 08/11/22 04:52 Creatinine 1.0 mg/dL (0.8-1.3) 08/11/22 04:52 Estimated GFR > 60 ml/min 08/11/22 04:52 BUN/Creatinine Ratio 20 % 08/11/22 04:52 Glucose 137 mg/dL (75-100) H 08/11/22 04:52 POC Glucose 155 mg/dL (70-105) H 08/12/22 17:20 Hemoglobin A1c 12.3 % (4-6) H 07/27/22 12:13 Lactic Acid 9.70 mmol/L (0.7-2.0) H* 07/26/22 15:36 Calcium 7.1 mg/dL (8.4-10.2) L 08/11/22 04:52 Phosphorus 2.50 mg/dL (2.5-4.5) 08/11/22 04:52 Magnesium 1.70 mg/dL (1.7-2.3) 08/11/22 04:52 Total Bilirubin 0.30 mg/dL (0.1-1.2) 08/08/22 04:46 Direct Bilirubin < 0.2 mg/dL (0-0.2) 08/08/22 04:46 Indirect Bilirubin 0.1 mg/dL 08/08/22 04:46 AST 81 units/L (5-40) H 08/08/22 04:46 ALT 42 units/L (7-56) 08/08/22 04:46 Alkaline Phosphatase 116 units/L (35-129) 08/08/22 04:46 Ammonia 64.0 umol/L (25-60) H 07/25/22 19:37 Total Creatine Kinase 158 units/L (55-170) 07/25/22 19:37 CK-MB (CK-2) < 1.0 ng/mL (0.0-4.0) 07/25/22 19:37 CK-MB (CK-2) Rel Index 0.6 (0-4) 07/25/22 19:37 Troponin T 0.049 ng/mL (0.00-0.029) H D 07/26/22 15:36 C-Reactive Protein 21.50 mg/dL (0.00-1.30) H 08/05/22 21:43 Total Protein 5.1 g/dL (6.3-8.2) L 08/08/22 04:46 Albumin 1.7 g/dL (3.9-5) L 08/08/22 04:46 Albumin/Globulin Ratio 0.5 % 08/08/22 04:46 Triglycerides 362 mg/dL (2-149) H 07/25/22 19:37 Cholesterol 126 mg/dL (50-199) 07/25/22 19:37 LDL Cholesterol Direct 44 mg/dL (50-130) L 07/25/22 19:37 HDL Cholesterol 34 mg/dL (40-59) L 07/25/22 19:37 Cholesterol/HDL Ratio 3.70 % 07/25/22 19:37 Serotonin Release Assay See scanned result 08/01/22 04:17 Procalcitonin 0.56 ng/mL (<0.15) 08/05/22 21:43 TSH 2.170 mlU/mL (0.270-4.200) 07/25/22 19:37 Free T4 1.18 ng/dL (0.76-1.46) 07/25/22 19:37 Urine Color Lin (Yellow) 08/05/22 11:00 Urine Turbidity Cloudy (Clear) 08/05/22 11:00 Specific [place] (Man) 1.017 (1.003-1.030) 08/05/22 11:00 Ur Protein (Man) 2+ mg/dL (Negative) 08/05/22 11:00 Ur Ketones (Man) Negative (Negative) 08/05/22 11:00 Ur Nitrite (Man) Negative (Negative) 08/05/22 11:00 Ur Reducing Substances Not Reportable 07/26/22 08:31 Urine Bilirubin (Man) Negative (Negative) 08/05/22 11:00 Urine Ictotest Not Reportable 08/05/22 11:00 Leukocyte Esterase (Man) Negative (Negative) 08/05/22 11:00 Urine WBC (Auto) 6.0 /HPF (0.0-6.0) 08/05/22 11:00 Urine RBC (Auto) 6.0 /HPF (0.0-6.0) 08/05/22 11:00 U Epithel Cells (Auto) 1.0 /HPF (0-13.0) 08/05/22 11:00 Urine Bacteria (Auto) 1+ /HPF (Negative) 08/05/22 11:00 Urine RBC (Manual) 4+ (Negative) 08/05/22 11:00 Ur Renal Epithelial Cell 3 /LPF 07/26/22 08:31 Uric Acid Crystals Few 08/05/22 11:00 Amorphous Crystals Few 08/05/22 11:00 Urine Mucus Few /HPF 08/05/22 11:00 Urine Creatinine 118.4 mg/dL (0.1-20.0) H 07/26/22 18:10 Protein/Creatinin Ratio 1.23 07/26/22 18:10 Urine Sodium 108 mmol/L 07/26/22 18:10 Urine Total Protein 146 mg/dL (5-11.8) H 07/26/22 18:10 Nasal Screen MRSA (PCR) Negative (Negative) 08/05/22 14:00 Heparin-induced Plt Ab Negative (Negative) 08/01/22 04:17 UF Heparin High Dose 0 % Release 08/01/22 04:17 SU UFH Low Dose 0.1 0 % Release 08/01/22 04:17 SU UFH Low Dose 0.5 0 % Release 08/01/22 04:17 SARS-CoV-2 (PCR) Negative (Negative) 08/10/22 10:20 Blood Type AB POSITIVE 08/10/22 23:20 Antibody Screen Negative 08/10/22 23:20 Crossmatch See Detail 08/10/22 23:20 Yañez/IV: Voiding Method Indwelling Catheter Active Medications - Current Medications Current Medications: Generic Name Dose Route Start Last Admin Trade Name Freq PRN Reason Stop Dose Admin Acetaminophen 650 mg 07/26/22 00:31 08/08/22 06:11 Acetaminophen 325 Mg Tab PO 650 mg Q4H PRN Administration Pain MILD(1-3)/Fever >100.5/LANTIGUA Acetaminophen 650 mg 07/26/22 02:04 Acetaminophen 650 Mg Rect Supp SC Q4H PRN Pain, Mild (1-3) Albuterol 2.5 mg 07/26/22 00:31 Albuterol 2.5 Mg/3 Ml Nebu IH Q3HRT PRN Shortness Of Breath Amiodarone HCl 200 mg 08/04/22 11:00 08/12/22 21:17 Amiodarone 200 Mg Tab FEEDTUBE 200 mg BID LIZZIE Administration Atorvastatin Calcium 40 mg 08/04/22 22:00 08/12/22 21:17 Atorvastatin 40 Mg Tab FEEDTUBE 40 mg QHS LIZZIE Administration Calcium Carbonate/Glycine 1,250 mg 08/09/22 10:00 08/12/22 21:17 Calcium Carbonate 1250 Mg/5 Ml Oral Liqd FEEDTUBE 1,250 mg BID LIZZIE Administration Dextrose 50 ml 07/27/22 09:25 08/04/22 06:03 Dextrose 50% In Water (25gm) 50 Ml Syringe IV 50 ml Q30MIN PRN Administration Hypoglycemia Protocol Famotidine 10 mg 07/28/22 10:00 08/12/22 21:17 Famotidine 10 Mg Tab FEEDTUBE 10 mg BID LIZZIE Administration Meropenem/Sodium Chloride 1 gram in 100 mls @ 100 mls/hr 08/06/22 10:00 08/13/22 01:30 Merrem/Ns 1 Gram/100 Ml IV 08/14/22 02:59 100 mls/hr Q8H LIZZIE Administration Protocol Phenylephrine HCl 50 mg/ 250 mls @ 7.47 mls/hr 08/10/22 18:45 Sodium Chloride IV TITR LIZZIE Protocol 0.5 MCG/KG/MIN Insulin Glargine 20 units 08/08/22 22:00 08/12/22 21:17 Insulin Glargine 100 Units/Ml SUB-Q 20 units QHS LIZZIE Administration Insulin Human Regular 0 units 07/27/22 12:00 08/13/22 06:38 Insulin Regular, Human 100 Units/1 Ml SUB-Q 3 units Q6H LIZZIE Administration Protocol Multi-Ingred Cream/Lotion/Oil/Oint 1 applic 07/27/22 03:17 08/12/22 09:11 Mineral Oil/Petrolatum, White Ophth Oint 3.5 Gm OU 1 applic PRN PRN Administration Dry Eye(s) Nitroglycerin 0.4 mg 07/26/22 00:31 Nitroglycerin 0.4 Mg Tab Subl SL Q5M PRN Chest Pain Ondansetron HCl 4 mg 07/26/22 00:31 Ondansetron 4 Mg/2 Ml Inj IV Q8H PRN Nausea And Vomiting Sodium Bicarbonate 650 mg 08/04/22 14:00 08/12/22 20:21 Sodium Bicarbonate 650 Mg Tab FEEDTUBE 650 mg TID LIZZIE Administration Sodium Chloride 10 ml 07/26/22 10:00 08/12/22 21:18 Sodium Chloride 0.9% 10 Ml Flush Syringe IV 10 ml BID LIZZIE Administration Sodium Chloride 10 ml 07/26/22 00:31 Sodium Chloride 0.9% 10 Ml Flush Syringe IV PRN PRN LINE FLUSH Nutrition/Malnutrition Assess - Dietary Evaluation Nutrition/Malnutrition Findings: Nutrition Notes Start: 07/26/22 10:25 Freq: Status: Active Protocol: Document 08/07/22 15:00 CM (Rec: 08/07/22 15:13 CM [id number]) Co-Sign 08/07/22 15:00 WW Nutrition Notes Initial or Follow up Brief Note Current Diagnosis Sepsis,Hypertension, Respiratory Failure,Stroke, Hyperlipidemia Other Pertinent Diagnosis s/p Cardiac Arrest, AMS Current Diet TF - Glucerna 45mL/hr Labs/Tests 08/07: K 3.4 Cl 107.8 BUN 21 Glu 216 Pertinent Medications 08/07: Atorvastatin Humulin Height 5 ft 5 in Weight 49.8 kg [place] Body Weight (kg) 61.81 BMI 18.2 Weight Status Underweight Subjective/Other Information RD follow-up per protocol. Pt currently receiving Glucerna @ 45mL/hr. RN reported loose stool 2x q day. No gastric residuals recorded. Pt continues ventilation via tracheostomy. Abdomen large, round, w/ BS+ per physical assessment. No contraindications to continue. GI Symptoms None Skin Integrity/Comment [place] 10 - breakdown / blisters Current % PO Other #2 Nutrition Diagnosis Underweight Diagnosis Progress(for reassessment Continues documentation) #1 Nutrition Diagnosis Inadequate oral intake Diagnosis Progress(for reassessment Continues documentation) Is patient on ventilator? Yes Is Patient Ambulatory and/or Out of Bed No REE-([facility]-confined to bed) 1398.456 Kcal/Kg value to use for calculation 31 Approximate Energy Requirements Using 1544 kcal/Kg Calculation Used for Recommendations Kcal/kg Additional Notes Pro needs 1.2-2.0g/k-100g /day Fluid needs per MD. Nutrition Intervention Nutrition Support: Change TF rate to 55mL/hr of Glucerna 1.2. Flush with 100mL q 4hrs. Kcal 1,584 Protein (gm) 79 Fluid (mL) 1,060 % RDI: 102%Kcal /100% AA Goal #1 TF tolerance Goal #2 TF to provide at least 75% energy and pro needs Follow-Up By: 08/14/22 Additional Comments Monitor TF administration, TF tolerance, nutrition-related labs, wt status.
[2022-08-12] MEDS: INSULIN GLARGINE 100 UNITS/ML SUB-Q SCH (21:17)
[2022-08-13] MEDS: INSULIN REGULAR, HUMAN 100 UNITS/1 ML SUB-Q SCH ×4 (00:50→17:27)
[2022-08-13] MEDS: MEROPENEM/NS 1 GRAM/100 ML 1 GRAM/100 ML BAG IV SCH ×3 (01:30→17:24)
[2022-08-13 04:38] LABS: Hematocrit 22.5 % (35.5-45.6); Hemoglobin 7.4 gm/dl (11.8-15.2); Mean Corpuscular HGB Conc 33 % (32-34); Mean Corpuscular Volume 87 fl (84-94); Platelet Count 152 K/mm3 (140-440); Red Blood Count 2.57 M/mm3 (3.65-5.03); Red Cell Distribution Width 15.5 % (13.2-15.2)
[2022-08-13] MEDS: SODIUM BICARBONATE 650 MG TAB FEEDTUBE SCH ×3 (08:17→21:21)
--- NOTE | 2022-08-13 08:28 | Progress Note ---
Assessment and Plan 77 y/o male with cardiac arrest, intubated, not sedated with multisystem organ failure 08/13/22: Monitor HgB. Transfuse if less than 7. PSV trials daily as tolerated. Reviewed GI note from yesterday. Poor Prognosis. 08/12/22: Unable to anticoagulate. Transfuse if HgB is less than 7. Very very poor prognosis given this most recent series of events. 08/11/22: Stop prophylactic anticoagulation. Transfuse PRBC. Follow up with GI if they want CTA vs CT chest with contrast. Guarded prognosis. 08/10/22: ID following. Continue supportive care. 08/09/22: Still spiking temps. ID following with abx therapy. Await placement 08/08/22: Stopping Vanc. Merrem for 8 days. Hold on imaging of head right now. LFT's are ok. Guarded prognosis. Await placement. 08/07/22: Abx therapy per ID. Tracheal aspirate was respiratory kristin. Bld Cx pending. If continues to spike fevers, need to consider repeat imaging of head (CT vs MRI). Could check for alcalculous cholecysitis. Suggest sending LFT's tomorrow. STill awaiting placement. Overall prognosis is guarded to poor. 08/04/22: CXR in am. Will order sputum as per report, secretions have increased. Abx therapy has stopped. Trach site stable. await placement. If s pikes again, needs blood, urine and UA. 08/03/22: Await placement. Continue daily PSV. PT consult. 08/01/22: Follow up surgery recs. Continue supportive care. 07/31/22: Supportive care. Surgery consult for trach and peg. Renal function continues to improve. 07/30/22: Continue supportive measures. Family wants aggressive measures despite MRI findings so needs consult to surgery for trach and peg. Will drop steroids down to 25q8 or 50q12 Sunday. Continue volume as renal function is i mproving. needs more free water if possible. 07/29/22: Drop steroids to 50q8 starting today. CBC not checked, need to evaluate Platelets. Need to correct electrolytes as well. Family is likely go ing to want trach and peg based on earlier conversations but awaiting more family. Given recent MRI results, prognosis is very poor. 07/28/22: Hold on Volume today. Drop steroids down to 50q8 starting tomorrow. Follow up MRI. EEG results still pending. Platelets still dropping but no evidence of bleeding. Continue abx therapy. Continue feeds. Prognosis is still guarded. 07/27/22: more volume again today. Echo showed normal EF. Wean pressors for MAPs >65, follow up EEg results. Hopeful to get head CT today. Platelets dropped today, not on heparin. Could be sepsis related. If head CT negative, may need to evaluate abdomen around peg. Will start trickle feeds today and transition of insulin drip. Prognosis is still guarded. 1. IVF resusciation with LR 2. Insulin drip and continue NPO state 3. Attempt to wean pressors for MAPs greater than 65 4. Monitor urine output 5. Broaden abx therapy given current clinical state 6. Follow up echo report 7. Agree with stress dose steroids 8. No sedation 9. EEG pending Overall prognosis is guarded to poor, especially given current clinical exam CCT 31 minutes. Subjective Date of service: 08/13/22 Principal diagnosis: Hypernatremia, ARF Interval history: No acute events. Objective Vital Signs - 12hr 08/12/22 08/12/22 08/12/22 21:00 22:00 22:16 Temperature Pulse Rate 95 H 95 H 96 H Respiratory 24 26 H 27 H Rate Blood Pressure 128/71 132/72 132/72 O2 Sat by Pulse 100 100 100 Oximetry O2 Sat by Pulse Oximetry [ Assessment] 08/12/22 08/12/22 08/13/22 23:00 23:55 00:00 Temperature 99.1 F Pulse Rate 90 95 H 98 H Respiratory 22 18 Rate Blood Pressure 121/66 145/74 145/74 O2 Sat by Pulse 100 100 100 Oximetry O2 Sat by Pulse Oximetry [ Assessment] 08/13/22 08/13/22 08/13/22 01:00 02:00 03:00 Temperature Pulse Rate 94 H 93 H 96 H Respiratory 18 27 H 24 Rate Blood Pressure 140/70 145/70 147/69 O2 Sat by Pulse 100 100 100 Oximetry O2 Sat by Pulse Oximetry [ Assessment] 08/13/22 08/13/22 08/13/22 04:00 04:29 04:47 Temperature 99.2 F Pulse Rate 96 H 104 H Respiratory 32 H Rate Blood Pressure 145/71 145/71 O2 Sat by Pulse 99 100 Oximetry O2 Sat by Pulse 100 Oximetry [ Assessment] 08/13/22 08/13/22 08/13/22 05:00 06:00 07:31 Temperature 99.8 F H Pulse Rate 102 H 97 H Respiratory 29 H 24 Rate Blood Pressure 145/71 154/71 O2 Sat by Pulse 100 100 Oximetry O2 Sat by Pulse Oximetry [ Assessment] CBC and BMP: 08/13/22 04:05 08/11/22 04:52 ABG, PT/INR, D-dimer: ABG ABG pH 7.500 pH Units (7.350-7.450) H 08/03/22 03:35 ABG pCO2 26.7 mm Hg 08/03/22 03:35 ABG pO2 129.6 mm Hg (80.0-90.0) H 08/03/22 03:35 ABG O2 Saturation 98.7 % (95.0-99.0) 08/03/22 03:35 PT/INR, D-dimer PT 14.3 Sec. (12.2-14.9) 07/31/22 04:13 INR 0.97 (0.87-1.13) 07/31/22 04:13 Abnormal lab findings: Abnormal Labs 07/25/22 07/25/22 07/25/22 19:37 19:37 19:37 WBC 18.8 H RBC 6.31 H Hgb 18.8 H Hct 57.3 H MCV MCHC RDW Plt Count Lymph % (Auto) Lymph # (Auto) [place] # (Auto) 1.4 H Seg Neutrophils % 70.7 H Seg Neuts % (Manual) Lymphocytes % (Manual) Seg Neutrophils # 13.3 H Seg Neutrophils # Man Lymphocytes # (Manual) ABG pH ABG pO2 ABG HCO3 ABG O2 Saturation ABG Base Excess ABG Hemoglobin Oxyhemoglobin Sodium 149 H Potassium Chloride 110.3 H Carbon Dioxide 18 L BUN 73 H Creatinine 3.3 H Glucose 761 H* POC Glucose Hemoglobin A1c Lactic Acid Calcium 10.6 H Phosphorus Magnesium 3.10 H AST 63 H ALT 64 H Ammonia Troponin T 0.072 H C-Reactive Protein Total Protein 9.0 H Albumin Triglycerides 362 H LDL Cholesterol Direct 44 L HDL Cholesterol 34 L Urine Creatinine Urine Total Protein Crossmatch 07/25/22 07/25/2222 19:37 21:08 22:10 WBC RBC Hgb Hct MCV MCHC RDW Plt Count Lymph % (Auto) Lymph # (Auto) [place] # (Auto) Seg Neutrophils % Seg Neuts % (Manual) Lymphocytes % (Manual) Seg Neutrophils # Seg Neutrophils # Man Lymphocytes # (Manual) ABG pH ABG pO2 ABG HCO3 ABG O2 Saturation ABG Base Excess ABG Hemoglobin Oxyhemoglobin Sodium 155 H Potassium Chloride 113.1 H Carbon Dioxide 14 L BUN 74 H Creatinine 3.5 H Glucose 734 H* POC Glucose Hemoglobin A1c Lactic Acid 12.70 H* Calcium Phosphorus Magnesium AST ALT Ammonia 64.0 H Troponin T C-Reactive Protein Total Protein Albumin Triglycerides LDL Cholesterol Direct HDL Cholesterol Urine Creatinine Urine Total Protein Crossmatch 07/25/22 07/25/22 07/26/22 22:20 23:29 00:13 WBC RBC Hgb Hct MCV MCHC RDW Plt Count Lymph % (Auto) Lymph # (Auto) [place] # (Auto) Seg Neutrophils % Seg Neuts % (Manual) Lymphocytes % (Manual) Seg Neutrophils # Seg Neutrophils # Man Lymphocytes # (Manual) ABG pH 7.342 L ABG pO2 318.2 H ABG HCO3 14.4 L ABG O2 Saturation 99.5 H ABG Base Excess -9.4 L ABG Hemoglobin Oxyhemoglobin Sodium 157 H Potassium 3.1 L D Chloride 114.0 H Carbon Dioxide 21 L D BUN 72 H Creatinine 3.7 H Glucose 615 H* POC Glucose > 600 H Hemoglobin A1c Lactic Acid Calcium Phosphorus Magnesium AST ALT Ammonia Troponin T C-Reactive Protein Total Protein Albumin Triglycerides LDL Cholesterol Direct HDL Cholesterol Urine Creatinine Urine Total Protein Crossmatch 07/26/22 07/26/22 07/26/22 00:13 00:38 00:39 WBC 21.4 H RBC 5.88 H Hgb 17.2 H Hct 55.0 H MCV MCHC 31 L RDW 16.0 H Plt Count Lymph % (Auto) Lymph # (Auto) [place] # (Auto) Seg Neutrophils % Seg Neuts % (Manual) 77.0 H Lymphocytes % (Manual) 13.0 L Seg Neutrophils # Seg Neutrophils # Man 16.5 H Lymphocytes # (Manual) ABG pH ABG pO2 ABG HCO3 ABG O2 Saturation ABG Base Excess ABG Hemoglobin Oxyhemoglobin Sodium Potassium Chloride Carbon Dioxide BUN Creatinine Glucose POC Glucose 517 H Hemoglobin A1c Lactic Acid 9.10 H* Calcium Phosphorus Magnesium AST ALT Ammonia Troponin T C-Reactive Protein Total Protein Albumin Triglycerides LDL Cholesterol Direct HDL Cholesterol Urine Creatinine Urine Total Protein Crossmatch 07/26/22 07/26/22 07/26/22 00:39 01:32 02:28 WBC RBC Hgb Hct MCV MCHC RDW Plt Count Lymph % (Auto) Lymph # (Auto) [place] # (Auto) Seg Neutrophils % Seg Neuts % (Manual) Lymphocytes % (Manual) Seg Neutrophils # Seg Neutrophils # Man Lymphocytes # (Manual) ABG pH ABG pO2 ABG HCO3 ABG O2 Saturation ABG Base Excess ABG Hemoglobin Oxyhemoglobin Sodium Potassium Chloride Carbon Dioxide BUN Creatinine Glucose POC Glucose 460 H 237 H Hemoglobin A1c Lactic Acid Calcium Phosphorus 1.20 L D Magnesium 4.10 H AST ALT Ammonia Troponin T C-Reactive Protein Total Protein Albumin Triglycerides LDL Cholesterol Direct HDL Cholesterol Urine Creatinine Urine Total Protein Crossmatch 07/26/22 07/26/22 07/26/22 03:03 03:07 04:11 WBC RBC Hgb Hct MCV MCHC RDW Plt Count Lymph % (Auto) Lymph # (Auto) [place] # (Auto) Seg Neutrophils % Seg Neuts % (Manual) Lymphocytes % (Manual) Seg Neutrophils # Seg Neutrophils # Man Lymphocytes # (Manual) ABG pH ABG pO2 ABG HCO3 ABG O2 Saturation ABG Base Excess ABG Hemoglobin Oxyhemoglobin Sodium Potassium Chloride Carbon Dioxide BUN Creatinine Glucose POC Glucose 433 H 370 H 338 H Hemoglobin A1c Lactic Acid Calcium Phosphorus Magnesium AST ALT Ammonia Troponin T C-Reactive Protein Total Protein Albumin Triglycerides LDL Cholesterol Direct HDL Cholesterol Urine Creatinine Urine Total Protein Crossmatch 07/26/22 07/26/22 07/26/22 04:35 04:35 04:40 WBC RBC Hgb Hct MCV MCHC RDW Plt Count Lymph % (Auto) Lymph # (Auto) [place] # (Auto) Seg Neutrophils % Seg Neuts % (Manual) Lymphocytes % (Manual) Seg Neutrophils # Seg Neutrophils # Man Lymphocytes # (Manual) ABG pH 7.301 L ABG pO2 178.2 H ABG HCO3 11.0 L ABG O2 Saturation 99.1 H ABG Base Excess -13.3 L ABG Hemoglobin Oxyhemoglobin Sodium 162 H* Potassium 3.0 L Chloride 124.8 H Carbon Dioxide 18 L BUN 69 H Creatinine 3.9 H Glucose 385 H POC Glucose Hemoglobin A1c Lactic Acid 8.20 H* Calcium 7.8 L Phosphorus Magnesium AST ALT Ammonia Troponin T C-Reactive Protein Total Protein Albumin Triglycerides LDL Cholesterol Direct HDL Cholesterol Urine Creatinine Urine Total Protein Crossmatch 07/26/22 07/26/22 07/26/22 05:01 06:14 06:52 WBC RBC Hgb Hct MCV MCHC RDW Plt Count Lymph % (Auto) Lymph # (Auto) [place] # (Auto) Seg Neutrophils % Seg Neuts % (Manual) Lymphocytes % (Manual) Seg Neutrophils # Seg Neutrophils # Man Lymphocytes # (Manual) ABG pH ABG pO2 ABG HCO3 ABG O2 Saturation ABG Base Excess ABG Hemoglobin Oxyhemoglobin Sodium Potassium Chloride Carbon Dioxide BUN Creatinine Glucose POC Glucose 347 H 300 H 278 H Hemoglobin A1c Lactic Acid Calcium Phosphorus Magnesium AST ALT Ammonia Troponin T C-Reactive Protein Total Protein Albumin Triglycerides LDL Cholesterol Direct HDL Cholesterol Urine Creatinine Urine Total Protein Crossmatch 07/26/22 07/26/22 07/26/22 07:59 08:58 10:04 WBC RBC Hgb Hct MCV MCHC RDW Plt Count Lymph % (Auto) Lymph # (Auto) [place] # (Auto) Seg Neutrophils % Seg Neuts % (Manual) Lymphocytes % (Manual) Seg Neutrophils # Seg Neutrophils # Man Lymphocytes # (Manual) ABG pH ABG pO2 ABG HCO3 ABG O2 Saturation ABG Base Excess ABG Hemoglobin Oxyhemoglobin Sodium Potassium Chloride Carbon Dioxide BUN Creatinine Glucose POC Glucose 269 H 277 H 244 H Hemoglobin A1c Lactic Acid Calcium Phosphorus Magnesium AST ALT Ammonia Troponin T C-Reactive Protein Total Protein Albumin Triglycerides LDL Cholesterol Direct HDL Cholesterol Urine Creatinine Urine Total Protein Crossmatch 07/26/22 07/26/22 07/26/22 11:03 11:53 13:08 WBC RBC Hgb Hct MCV MCHC RDW Plt Count Lymph % (Auto) Lymph # (Auto) [place] # (Auto) Seg Neutrophils % Seg Neuts % (Manual) Lymphocytes % (Manual) Seg Neutrophils # Seg Neutrophils # Man Lymphocytes # (Manual) ABG pH ABG pO2 ABG HCO3 ABG O2 Saturation ABG Base Excess ABG Hemoglobin Oxyhemoglobin Sodium Potassium Chloride Carbon Dioxide BUN Creatinine Glucose POC Glucose 253 H 213 H 194 H Hemoglobin A1c Lactic Acid Calcium Phosphorus Magnesium AST ALT Ammonia Troponin T C-Reactive Protein Total Protein Albumin Triglycerides LDL Cholesterol Direct HDL Cholesterol Urine Creatinine Urine Total Protein Crossmatch 07/26/22 07/26/2222 14:24 14:56 14:57 WBC RBC Hgb Hct MCV MCHC RDW Plt Count Lymph % (Auto) Lymph # (Auto) [place] # (Auto) Seg Neutrophils % Seg Neuts % (Manual) Lymphocytes % (Manual) Seg Neutrophils # Seg Neutrophils # Man Lymphocytes # (Manual) ABG pH ABG pO2 ABG HCO3 ABG O2 Saturation ABG Base Excess ABG Hemoglobin Oxyhemoglobin Sodium Potassium Chloride Carbon Dioxide BUN Creatinine Glucose POC Glucose 185 H 236 H 207 H Hemoglobin A1c Lactic Acid Calcium Phosphorus Magnesium AST ALT Ammonia Troponin T C-Reactive Protein Total Protein Albumin Triglycerides LDL Cholesterol Direct HDL Cholesterol Urine Creatinine Urine Total Protein Crossmatch 07/26/22 07/26/22 07/26/22 15:36 15:36 15:36 WBC RBC Hgb Hct MCV MCHC RDW Plt Count Lymph % (Auto) Lymph # (Auto) [place] # (Auto) Seg Neutrophils % Seg Neuts % (Manual) Lymphocytes % (Manual) Seg Neutrophils # Seg Neutrophils # Man Lymphocytes # (Manual) ABG pH ABG pO2 ABG HCO3 ABG O2 Saturation ABG Base Excess ABG Hemoglobin Oxyhemoglobin Sodium 160 H Potassium Chloride 126.2 H Carbon Dioxide 18 L BUN 59 H Creatinine 3.2 H Glucose 227 H POC Glucose Hemoglobin A1c Lactic Acid 9.70 H* Calcium 7.1 L Phosphorus Magnesium AST ALT Ammonia Troponin T 0.049 H D C-Reactive Protein Total Protein Albumin Triglycerides LDL Cholesterol Direct HDL Cholesterol Urine Creatinine Urine Total Protein Crossmatch 07/26/22 07/26/22 07/26/22 15:57 16:32 17:04 WBC RBC Hgb Hct MCV MCHC RDW Plt Count Lymph % (Auto) Lymph # (Auto) [place] # (Auto) Seg Neutrophils % Seg Neuts % (Manual) Lymphocytes % (Manual) Seg Neutrophils # Seg Neutrophils # Man Lymphocytes # (Manual) ABG pH ABG pO2 ABG HCO3 ABG O2 Saturation ABG Base Excess ABG Hemoglobin Oxyhemoglobin Sodium Potassium Chloride Carbon Dioxide BUN Creatinine Glucose POC Glucose 207 H 189 H 219 H Hemoglobin A1c Lactic Acid Calcium Phosphorus Magnesium AST ALT Ammonia Troponin T C-Reactive Protein Total Protein Albumin Triglycerides LDL Cholesterol Direct HDL Cholesterol Urine Creatinine Urine Total Protein Crossmatch 07/26/22 07/26/22 07/26/22 18:00 18:10 18:52 WBC RBC Hgb Hct MCV MCHC RDW Plt Count Lymph % (Auto) Lymph # (Auto) [place] # (Auto) Seg Neutrophils % Seg Neuts % (Manual) Lymphocytes % (Manual) Seg Neutrophils # Seg Neutrophils # Man Lymphocytes # (Manual) ABG pH ABG pO2 ABG HCO3 ABG O2 Saturation ABG Base Excess ABG Hemoglobin Oxyhemoglobin Sodium Potassium Chloride Carbon Dioxide BUN Creatinine Glucose POC Glucose 197 H 194 H Hemoglobin A1c Lactic Acid Calcium Phosphorus Magnesium AST ALT Ammonia Troponin T C-Reactive Protein Total Protein Albumin Triglycerides LDL Cholesterol Direct HDL Cholesterol Urine Creatinine 118.4 H Urine Total Protein 146 H Crossmatch 07/26/22 07/26/22 07/26/22 20:47 21:30 21:51 WBC RBC Hgb Hct MCV MCHC RDW Plt Count Lymph % (Auto) Lymph # (Auto) [place] # (Auto) Seg Neutrophils % Seg Neuts % (Manual) Lymphocytes % (Manual) Seg Neutrophils # Seg Neutrophils # Man Lymphocytes # (Manual) ABG pH ABG pO2 ABG HCO3 ABG O2 Saturation ABG Base Excess ABG Hemoglobin Oxyhemoglobin Sodium 155 H Potassium Chloride 123.5 H Carbon Dioxide 16 L BUN 53 H Creatinine 2.9 H Glucose 185 H POC Glucose 134 H 124 H Hemoglobin A1c Lactic Acid Calcium 7.0 L Phosphorus Magnesium AST ALT Ammonia Troponin T C-Reactive Protein Total Protein Albumin Triglycerides LDL Cholesterol Direct HDL Cholesterol Urine Creatinine Urine Total Protein Crossmatch 07/26/22 07/26/22 07/27/22 22:47 23:52 00:45 WBC RBC Hgb Hct MCV MCHC RDW Plt Count Lymph % (Auto) Lymph # (Auto) [place] # (Auto) Seg Neutrophils % Seg Neuts % (Manual) Lymphocytes % (Manual) Seg Neutrophils # Seg Neutrophils # Man Lymphocytes # (Manual) ABG pH ABG pO2 ABG HCO3 ABG O2 Saturation ABG Base Excess ABG Hemoglobin Oxyhemoglobin Sodium 155 H Potassium Chloride 124.2 H Carbon Dioxide 19 L BUN 53 H Creatinine 2.5 H Glucose 168 H POC Glucose 138 H 150 H Hemoglobin A1c Lactic Acid Calcium 6.7 L Phosphorus Magnesium AST ALT Ammonia Troponin T C-Reactive Protein Total Protein Albumin Triglycerides LDL Cholesterol Direct HDL Cholesterol Urine Creatinine Urine Total Protein Crossmatch 07/27/22 07/27/22 07/27/22 00:58 02:45 03:50 WBC 15.4 H RBC Hgb Hct MCV MCHC RDW 15.3 H Plt Count 60 L Lymph % (Auto) Lymph # (Auto) [place] # (Auto) Seg Neutrophils % Seg Neuts % (Manual) 78.0 H Lymphocytes % (Manual) 3.0 L Seg Neutrophils # Seg Neutrophils # Man 12.0 H Lymphocytes # (Manual) 0.5 L ABG pH ABG pO2 ABG HCO3 ABG O2 Saturation ABG Base Excess ABG Hemoglobin Oxyhemoglobin Sodium Potassium Chloride Carbon Dioxide BUN Creatinine Glucose POC Glucose 153 H 150 H Hemoglobin A1c Lactic Acid Calcium Phosphorus Magnesium AST ALT Ammonia Troponin T C-Reactive Protein Total Protein Albumin Triglycerides LDL Cholesterol Direct HDL Cholesterol Urine Creatinine Urine Total Protein Crossmatch 07/27/22 07/27/22 07/27/22 03:50 03:55 04:57 WBC RBC Hgb Hct MCV MCHC RDW Plt Count Lymph % (Auto) Lymph # (Auto) [place] # (Auto) Seg Neutrophils % Seg Neuts % (Manual) Lymphocytes % (Manual) Seg Neutrophils # Seg Neutrophils # Man Lymphocytes # (Manual) ABG pH ABG pO2 110.1 H ABG HCO3 13.3 L ABG O2 Saturation ABG Base Excess -9.0 L ABG Hemoglobin 13.1 L Oxyhemoglobin Sodium 154 H Potassium Chloride 123.0 H Carbon Dioxide 19 L BUN 55 H Creatinine 2.8 H Glucose 153 H POC Glucose 112 H Hemoglobin A1c Lactic Acid Calcium 6.8 L Phosphorus 1.30 L Magnesium AST 64 H ALT Ammonia Troponin T C-Reactive Protein Total Protein 4.1 L D Albumin 2.1 L Triglycerides LDL Cholesterol Direct HDL Cholesterol Urine Creatinine Urine Total Protein Crossmatch 07/27/22 07/27/22 07/27/22 08:22 09:30 10:49 WBC RBC Hgb Hct MCV MCHC RDW Plt Count Lymph % (Auto) Lymph # (Auto) [place] # (Auto) Seg Neutrophils % Seg Neuts % (Manual) Lymphocytes % (Manual) Seg Neutrophils # Seg Neutrophils # Man Lymphocytes # (Manual) ABG pH ABG pO2 ABG HCO3 ABG O2 Saturation ABG Base Excess ABG Hemoglobin Oxyhemoglobin Sodium Potassium Chloride Carbon Dioxide BUN Creatinine Glucose POC Glucose 146 H 153 H 163 H Hemoglobin A1c Lactic Acid Calcium Phosphorus Magnesium AST ALT Ammonia Troponin T C-Reactive Protein Total Protein Albumin Triglycerides LDL Cholesterol Direct HDL Cholesterol Urine Creatinine Urine Total Protein Crossmatch 07/27/22 07/27/22 07/27/22 12:13 12:44 17:17 WBC RBC Hgb Hct MCV MCHC RDW Plt Count Lymph % (Auto) Lymph # (Auto) [place] # (Auto) Seg Neutrophils % Seg Neuts % (Manual) Lymphocytes % (Manual) Seg Neutrophils # Seg Neutrophils # Man Lymphocytes # (Manual) ABG pH ABG pO2 ABG HCO3 ABG O2 Saturation ABG Base Excess ABG Hemoglobin Oxyhemoglobin Sodium Potassium Chloride Carbon Dioxide BUN Creatinine Glucose POC Glucose 190 H 287 H Hemoglobin A1c 12.3 H Lactic Acid Calcium Phosphorus Magnesium AST ALT Ammonia Troponin T C-Reactive Protein Total Protein Albumin Triglycerides LDL Cholesterol Direct HDL Cholesterol Urine Creatinine Urine Total Protein Crossmatch 07/28/22 07/28/22 07/28/22 00:22 03:58 04:05 WBC RBC Hgb Hct MCV MCHC RDW Plt Count Lymph % (Auto) Lymph # (Auto) [place] # (Auto) Seg Neutrophils % Seg Neuts % (Manual) Lymphocytes % (Manual) Seg Neutrophils # Seg Neutrophils # Man Lymphocytes # (Manual) ABG pH ABG pO2 171.2 H ABG HCO3 12.3 L ABG O2 Saturation 99.2 H ABG Base Excess -9.7 L ABG Hemoglobin 10.9 L Oxyhemoglobin Sodium 148 H Potassium Chloride 117.0 H Carbon Dioxide 16 L BUN 74 H Creatinine 3.2 H Glucose 471 H POC Glucose 379 H Hemoglobin A1c Lactic Acid Calcium 6.2 L Phosphorus Magnesium AST ALT Ammonia Troponin T C-Reactive Protein Total Protein Albumin Triglycerides LDL Cholesterol Direct HDL Cholesterol Urine Creatinine Urine Total Protein Crossmatch 07/28/22 07/28/22 07/28/22 04:05 05:36 12:50 WBC 13.9 H RBC Hgb 11.2 L Hct MCV MCHC 31 L RDW 15.9 H Plt Count 48 L Lymph % (Auto) Lymph # (Auto) [place] # (Auto) Seg Neutrophils % Seg Neuts % (Manual) Lymphocytes % (Manual) Seg Neutrophils # Seg Neutrophils # Man Lymphocytes # (Manual) ABG pH ABG pO2 ABG HCO3 ABG O2 Saturation ABG Base Excess ABG Hemoglobin Oxyhemoglobin Sodium Potassium Chloride Carbon Dioxide BUN Creatinine Glucose POC Glucose 390 H 399 H Hemoglobin A1c Lactic Acid Calcium Phosphorus Magnesium AST ALT Ammonia Troponin T C-Reactive Protein Total Protein Albumin Triglycerides LDL Cholesterol Direct HDL Cholesterol Urine Creatinine Urine Total Protein Crossmatch 09/09/22 09/09/22 09/09/22 17:27 18:16 23:31 WBC RBC Hgb Hct MCV MCHC RDW Plt Count Lymph % (Auto) Lymph # (Auto) [place] # (Auto) Seg Neutrophils % Seg Neuts % (Manual) Lymphocytes % (Manual) Seg Neutrophils # Seg Neutrophils # Man Lymphocytes # (Manual) ABG pH ABG pO2 ABG HCO3 ABG O2 Saturation ABG Base Excess ABG Hemoglobin Oxyhemoglobin Sodium Potassium Chloride Carbon Dioxide BUN Creatinine Glucose POC Glucose 434 H 331 H Hemoglobin A1c Lactic Acid Calcium Phosphorus 2.00 L D Magnesium AST ALT Ammonia Troponin T C-Reactive Protein Total Protein Albumin Triglycerides LDL Cholesterol Direct HDL Cholesterol Urine Creatinine Urine Total Protein Crossmatch 07/29/22 07/29/22 07/29/22 04:47 05:30 06:10 WBC RBC Hgb Hct MCV MCHC RDW Plt Count Lymph % (Auto) Lymph # (Auto) [place] # (Auto) Seg Neutrophils % Seg Neuts % (Manual) Lymphocytes % (Manual) Seg Neutrophils # Seg Neutrophils # Man Lymphocytes # (Manual) ABG pH 7.498 H ABG pO2 166.4 H ABG HCO3 16.2 L ABG O2 Saturation 99.1 H ABG Base Excess -5.4 L ABG Hemoglobin 10.7 L Oxyhemoglobin Sodium 151 H Potassium 3.5 L D Chloride 120.4 H Carbon Dioxide 17 L BUN 80 H Creatinine 2.8 H Glucose 303 H POC Glucose 261 H Hemoglobin A1c Lactic Acid Calcium 6.9 L Phosphorus Magnesium AST ALT Ammonia Troponin T C-Reactive Protein Total Protein Albumin Triglycerides LDL Cholesterol Direct HDL Cholesterol Urine Creatinine Urine Total Protein Crossmatch 07/29/22 07/29/22 07/29/22 09:18 12:31 13:40 WBC 16.0 H RBC Hgb Hct MCV 96 H MCHC 30 L RDW 17.6 H Plt Count 84 L Lymph % (Auto) Lymph # (Auto) [place] # (Auto) Seg Neutrophils % Seg Neuts % (Manual) Lymphocytes % (Manual) Seg Neutrophils # Seg Neutrophils # Man Lymphocytes # (Manual) ABG pH ABG pO2 ABG HCO3 ABG O2 Saturation ABG Base Excess ABG Hemoglobin Oxyhemoglobin Sodium Potassium Chloride Carbon Dioxide BUN Creatinine Glucose POC Glucose 287 H 291 H Hemoglobin A1c Lactic Acid Calcium Phosphorus Magnesium AST ALT Ammonia Troponin T C-Reactive Protein Total Protein Albumin Triglycerides LDL Cholesterol Direct HDL Cholesterol Urine Creatinine Urine Total Protein Crossmatch 09/09/0907/29/22 07/30/22 17:19 23:57 04:25 WBC RBC Hgb Hct MCV MCHC RDW Plt Count Lymph % (Auto) Lymph # (Auto) [place] # (Auto) Seg Neutrophils % Seg Neuts % (Manual) Lymphocytes % (Manual) Seg Neutrophils # Seg Neutrophils # Man Lymphocytes # (Manual) ABG pH 7.461 H ABG pO2 123.0 H ABG HCO3 18.6 L ABG O2 Saturation ABG Base Excess -4.1 L ABG Hemoglobin 10.8 L Oxyhemoglobin Sodium Potassium Chloride Carbon Dioxide BUN Creatinine Glucose POC Glucose 272 H 205 H Hemoglobin A1c Lactic Acid Calcium Phosphorus Magnesium AST ALT Ammonia Troponin T C-Reactive Protein Total Protein Albumin Triglycerides LDL Cholesterol Direct HDL Cholesterol Urine Creatinine Urine Total Protein Crossmatch 07/30/22 07/30/22 07/30/22 04:42 04:42 05:17 WBC RBC Hgb 11.1 L Hct 33.1 L D MCV MCHC RDW 16.0 H Plt Count 34 L Lymph % (Auto) Lymph # (Auto) [place] # (Auto) Seg Neutrophils % Seg Neuts % (Manual) Lymphocytes % (Manual) Seg Neutrophils # Seg Neutrophils # Man Lymphocytes # (Manual) ABG pH ABG pO2 ABG HCO3 ABG O2 Saturation ABG Base Excess ABG Hemoglobin Oxyhemoglobin Sodium 148 H Potassium 3.2 L Chloride 116.7 H Carbon Dioxide 18 L BUN 69 H Creatinine 2.0 H Glucose 197 H POC Glucose 185 H Hemoglobin A1c Lactic Acid Calcium 6.8 L Phosphorus 1.70 L Magnesium AST ALT Ammonia Troponin T C-Reactive Protein Total Protein Albumin Triglycerides LDL Cholesterol Direct HDL Cholesterol Urine Creatinine Urine Total Protein Crossmatch 07/30/22 07/30/22 07/30/22 11:41 16:14 23:07 WBC RBC Hgb Hct MCV MCHC RDW Plt Count Lymph % (Auto) Lymph # (Auto) [place] # (Auto) Seg Neutrophils % Seg Neuts % (Manual) Lymphocytes % (Manual) Seg Neutrophils # Seg Neutrophils # Man Lymphocytes # (Manual) ABG pH ABG pO2 ABG HCO3 ABG O2 Saturation ABG Base Excess ABG Hemoglobin Oxyhemoglobin Sodium Potassium Chloride Carbon Dioxide BUN Creatinine Glucose POC Glucose 199 H 173 H 159 H Hemoglobin A1c Lactic Acid Calcium Phosphorus Magnesium AST ALT Ammonia Troponin T C-Reactive Protein Total Protein Albumin Triglycerides LDL Cholesterol Direct HDL Cholesterol Urine Creatinine Urine Total Protein Crossmatch 07/31/22 07/31/22 07/31/22 03:25 04:00 04:13 WBC RBC Hgb 10.5 L Hct 32.8 L MCV MCHC RDW 15.3 H Plt Count 55 L Lymph % (Auto) Lymph # (Auto) [place] # (Auto) Seg Neutrophils % Seg Neuts % (Manual) Lymphocytes % (Manual) Seg Neutrophils # Seg Neutrophils # Man Lymphocytes # (Manual) ABG pH 7.513 H ABG pO2 64.1 L ABG HCO3 ABG O2 Saturation ABG Base Excess ABG Hemoglobin 10.5 L Oxyhemoglobin 93.8 L Sodium 146 H Potassium 3.4 L Chloride 112.5 H Carbon Dioxide 21 L BUN 53 H Creatinine 1.6 H Glucose 151 H POC Glucose Hemoglobin A1c Lactic Acid Calcium 6.4 L Phosphorus Magnesium AST ALT Ammonia Troponin T C-Reactive Protein Total Protein Albumin Triglycerides LDL Cholesterol Direct HDL Cholesterol Urine Creatinine Urine Total Protein Crossmatch 07/31/22 07/31/22 07/31/22 05:39 11:08 16:11 WBC RBC Hgb Hct MCV MCHC RDW Plt Count Lymph % (Auto) Lymph # (Auto) [place] # (Auto) Seg Neutrophils % Seg Neuts % (Manual) Lymphocytes % (Manual) Seg Neutrophils # Seg Neutrophils # Man Lymphocytes # (Manual) ABG pH ABG pO2 ABG HCO3 ABG O2 Saturation ABG Base Excess ABG Hemoglobin Oxyhemoglobin Sodium Potassium Chloride Carbon Dioxide BUN Creatinine Glucose POC Glucose 155 H 132 H 150 H Hemoglobin A1c Lactic Acid Calcium Phosphorus Magnesium AST ALT Ammonia Troponin T C-Reactive Protein Total Protein Albumin Triglycerides LDL Cholesterol Direct HDL Cholesterol Urine Creatinine Urine Total Protein Crossmatch 07/31/22 08/01/22 08/01/22 23:48 04:17 04:17 WBC RBC 3.62 L Hgb 10.6 L Hct 31.8 L MCV MCHC RDW 15.7 H Plt Count 90 L Lymph % (Auto) Lymph # (Auto) [place] # (Auto) Seg Neutrophils % Seg Neuts % (Manual) Lymphocytes % (Manual) Seg Neutrophils # Seg Neutrophils # Man Lymphocytes # (Manual) ABG pH ABG pO2 ABG HCO3 ABG O2 Saturation ABG Base Excess ABG Hemoglobin Oxyhemoglobin Sodium 147 H Potassium 3.3 L Chloride 113.7 H Carbon Dioxide BUN 46 H Creatinine Glucose 141 H POC Glucose 133 H Hemoglobin A1c Lactic Acid Calcium 6.0 L Phosphorus 2.00 L Magnesium 1.50 L AST ALT Ammonia Troponin T C-Reactive Protein Total Protein Albumin Triglycerides LDL Cholesterol Direct HDL Cholesterol Urine Creatinine Urine Total Protein Crossmatch 08/01/22 08/01/22 08/01/22 05:46 11:17 17:44 WBC RBC Hgb Hct MCV MCHC RDW Plt Count Lymph % (Auto) Lymph # (Auto) [place] # (Auto) Seg Neutrophils % Seg Neuts % (Manual) Lymphocytes % (Manual) Seg Neutrophils # Seg Neutrophils # Man Lymphocytes # (Manual) ABG pH ABG pO2 ABG HCO3 ABG O2 Saturation ABG Base Excess ABG Hemoglobin Oxyhemoglobin Sodium Potassium Chloride Carbon Dioxide BUN Creatinine Glucose POC Glucose 116 H 190 H 179 H Hemoglobin A1c Lactic Acid Calcium Phosphorus Magnesium AST ALT Ammonia Troponin T C-Reactive Protein Total Protein Albumin Triglycerides LDL Cholesterol Direct HDL Cholesterol Urine Creatinine Urine Total Protein Crossmatch 08/01/22 08/02/22 08/02/22 23:34 04:48 04:48 WBC RBC 3.61 L Hgb 10.2 L Hct 31.9 L MCV MCHC RDW 15.8 H Plt Count 130 L Lymph % (Auto) Lymph # (Auto) [place] # (Auto) Seg Neutrophils % Seg Neuts % (Manual) Lymphocytes % (Manual) Seg Neutrophils # Seg Neutrophils # Man Lymphocytes # (Manual) ABG pH ABG pO2 ABG HCO3 ABG O2 Saturation ABG Base Excess ABG Hemoglobin Oxyhemoglobin Sodium 148 H Potassium 3.4 L Chloride 113.1 H Carbon Dioxide 16 L BUN 45 H Creatinine Glucose 213 H POC Glucose 193 H Hemoglobin A1c Lactic Acid Calcium 5.9 L* Phosphorus 2.30 L Magnesium AST ALT Ammonia Troponin T C-Reactive Protein Total Protein Albumin Triglycerides LDL Cholesterol Direct HDL Cholesterol Urine Creatinine Urine Total Protein Crossmatch 08/02/22 08/02/22 08/02/22 05:38 23:04 23:30 WBC RBC Hgb Hct MCV MCHC RDW Plt Count Lymph % (Auto) Lymph # (Auto) [place] # (Auto) Seg Neutrophils % Seg Neuts % (Manual) Lymphocytes % (Manual) Seg Neutrophils # Seg Neutrophils # Man Lymphocytes # (Manual) ABG pH ABG pO2 ABG HCO3 ABG O2 Saturation ABG Base Excess ABG Hemoglobin Oxyhemoglobin Sodium Potassium Chloride Carbon Dioxide BUN Creatinine Glucose POC Glucose 193 H 65 L 111 H Hemoglobin A1c Lactic Acid Calcium Phosphorus Magnesium AST ALT Ammonia Troponin T C-Reactive Protein Total Protein Albumin Triglycerides LDL Cholesterol Direct HDL Cholesterol Urine Creatinine Urine Total Protein Crossmatch 08/03/22 08/03/22 08/03/22 03:35 04:40 04:40 WBC 12.7 H RBC 3.36 L Hgb 9.5 L Hct 29.8 L MCV MCHC RDW 15.7 H Plt Count Lymph % (Auto) Lymph # (Auto) [place] # (Auto) Seg Neutrophils % Seg Neuts % (Manual) Lymphocytes % (Manual) Seg Neutrophils # Seg Neutrophils # Man Lymphocytes # (Manual) ABG pH 7.500 H ABG pO2 129.6 H ABG HCO3 ABG O2 Saturation ABG Base Excess ABG Hemoglobin 9.7 L Oxyhemoglobin Sodium Potassium 3.3 L Chloride 107.9 H Carbon Dioxide 21 L BUN 37 H Creatinine Glucose 111 H POC Glucose Hemoglobin A1c Lactic Acid Calcium 5.5 L* Phosphorus Magnesium 1.60 L AST ALT Ammonia Troponin T C-Reactive Protein Total Protein Albumin Triglycerides LDL Cholesterol Direct HDL Cholesterol Urine Creatinine Urine Total Protein Crossmatch 08/03/22 08/03/22 08/04/22 05:24 17:18 00:17 WBC RBC Hgb Hct MCV MCHC RDW Plt Count Lymph % (Auto) Lymph # (Auto) [place] # (Auto) Seg Neutrophils % Seg Neuts % (Manual) Lymphocytes % (Manual) Seg Neutrophils # Seg Neutrophils # Man Lymphocytes # (Manual) ABG pH ABG pO2 ABG HCO3 ABG O2 Saturation ABG Base Excess ABG Hemoglobin Oxyhemoglobin Sodium Potassium Chloride Carbon Dioxide BUN Creatinine Glucose POC Glucose 115 H 111 H 64 L Hemoglobin A1c Lactic Acid Calcium Phosphorus Magnesium AST ALT Ammonia Troponin T C-Reactive Protein Total Protein Albumin Triglycerides LDL Cholesterol Direct HDL Cholesterol Urine Creatinine Urine Total Protein Crossmatch 08/04/22 08/04/22 08/04/22 04:39 04:39 05:36 WBC 14.2 H RBC 3.61 L Hgb 10.3 L Hct 31.2 L MCV MCHC RDW 15.4 H Plt Count Lymph % (Auto) Lymph # (Auto) [place] # (Auto) Seg Neutrophils % Seg Neuts % (Manual) Lymphocytes % (Manual) Seg Neutrophils # Seg Neutrophils # Man Lymphocytes # (Manual) ABG pH ABG pO2 ABG HCO3 ABG O2 Saturation ABG Base Excess ABG Hemoglobin Oxyhemoglobin Sodium Potassium 3.1 L Chloride Carbon Dioxide 18 L BUN 30 H Creatinine Glucose 68 L POC Glucose 68 L Hemoglobin A1c Lactic Acid Calcium 6.1 L Phosphorus 2.00 L D Magnesium AST ALT Ammonia Troponin T C-Reactive Protein Total Protein Albumin Triglycerides LDL Cholesterol Direct HDL Cholesterol Urine Creatinine Urine Total Protein Crossmatch 08/04/22 08/04/22 08/04/22 06:32 11:37 17:53 WBC RBC Hgb Hct MCV MCHC RDW Plt Count Lymph % (Auto) Lymph # (Auto) [place] # (Auto) Seg Neutrophils % Seg Neuts % (Manual) Lymphocytes % (Manual) Seg Neutrophils # Seg Neutrophils # Man Lymphocytes # (Manual) ABG pH ABG pO2 ABG HCO3 ABG O2 Saturation ABG Base Excess ABG Hemoglobin Oxyhemoglobin Sodium Potassium Chloride Carbon Dioxide BUN Creatinine Glucose POC Glucose 110 H 118 H 171 H Hemoglobin A1c Lactic Acid Calcium Phosphorus Magnesium AST ALT Ammonia Troponin T C-Reactive Protein Total Protein Albumin Triglycerides LDL Cholesterol Direct HDL Cholesterol Urine Creatinine Urine Total Protein Crossmatch 08/04/22 08/04/22 08/05/22 23:41 23:43 04:46 WBC 12.5 H RBC Hgb 10.8 L Hct 33.3 L MCV MCHC RDW 15.8 H Plt Count 138 L Lymph % (Auto) Lymph # (Auto) [place] # (Auto) Seg Neutrophils % Seg Neuts % (Manual) Lymphocytes % (Manual) Seg Neutrophils # Seg Neutrophils # Man Lymphocytes # (Manual) ABG pH ABG pO2 ABG HCO3 ABG O2 Saturation ABG Base Excess ABG Hemoglobin Oxyhemoglobin Sodium Potassium Chloride Carbon Dioxide BUN Creatinine Glucose POC Glucose 226 H 218 H Hemoglobin A1c Lactic Acid Calcium Phosphorus Magnesium AST ALT Ammonia Troponin T C-Reactive Protein Total Protein Albumin Triglycerides LDL Cholesterol Direct HDL Cholesterol Urine Creatinine Urine Total Protein Crossmatch 08/05/22 08/05/22 08/05/22 04:46 06:05 11:42 WBC RBC Hgb Hct MCV MCHC RDW Plt Count Lymph % (Auto) Lymph # (Auto) [place] # (Auto) Seg Neutrophils % Seg Neuts % (Manual) Lymphocytes % (Manual) Seg Neutrophils # Seg Neutrophils # Man Lymphocytes # (Manual) ABG pH ABG pO2 ABG HCO3 ABG O2 Saturation ABG Base Excess ABG Hemoglobin Oxyhemoglobin Sodium Potassium Chloride Carbon Dioxide 16 L BUN 29 H Creatinine Glucose 179 H POC Glucose 220 H 180 H Hemoglobin A1c Lactic Acid Calcium 6.1 L Phosphorus Magnesium AST ALT Ammonia Troponin T C-Reactive Protein Total Protein Albumin Triglycerides LDL Cholesterol Direct HDL Cholesterol Urine Creatinine Urine Total Protein Crossmatch 08/05/22 08/05/22 08/05/22 17:39 21:10 21:43 WBC RBC Hgb Hct MCV MCHC RDW Plt Count Lymph % (Auto) Lymph # (Auto) [place] # (Auto) Seg Neutrophils % Seg Neuts % (Manual) Lymphocytes % (Manual) Seg Neutrophils # Seg Neutrophils # Man Lymphocytes # (Manual) ABG pH ABG pO2 ABG HCO3 ABG O2 Saturation ABG Base Excess ABG Hemoglobin Oxyhemoglobin Sodium Potassium Chloride Carbon Dioxide BUN Creatinine Glucose POC Glucose 207 H 185 H Hemoglobin A1c Lactic Acid Calcium Phosphorus Magnesium AST ALT Ammonia Troponin T C-Reactive Protein 21.50 H Total Protein Albumin Triglycerides LDL Cholesterol Direct HDL Cholesterol Urine Creatinine Urine Total Protein Crossmatch 08/05/22 08/06/22 08/06/22 23:38 05:13 05:20 WBC RBC 3.32 L Hgb 9.4 L Hct 29.4 L MCV MCHC RDW 15.6 H Plt Count Lymph % (Auto) Lymph # (Auto) [place] # (Auto) Seg Neutrophils % Seg Neuts % (Manual) Lymphocytes % (Manual) Seg Neutrophils # Seg Neutrophils # Man Lymphocytes # (Manual) ABG pH ABG pO2 ABG HCO3 ABG O2 Saturation ABG Base Excess ABG Hemoglobin Oxyhemoglobin Sodium Potassium Chloride Carbon Dioxide BUN Creatinine Glucose POC Glucose 198 H 182 H Hemoglobin A1c Lactic Acid Calcium Phosphorus Magnesium AST ALT Ammonia Troponin T C-Reactive Protein Total Protein Albumin Triglycerides LDL Cholesterol Direct HDL Cholesterol Urine Creatinine Urine Total Protein Crossmatch 08/06/22 08/06/22 08/06/22 05:20 11:25 16:13 WBC RBC Hgb Hct MCV MCHC RDW Plt Count Lymph % (Auto) Lymph # (Auto) [place] # (Auto) Seg Neutrophils % Seg Neuts % (Manual) Lymphocytes % (Manual) Seg Neutrophils # Seg Neutrophils # Man Lymphocytes # (Manual) ABG pH ABG pO2 ABG HCO3 ABG O2 Saturation ABG Base Excess ABG Hemoglobin Oxyhemoglobin Sodium Potassium Chloride 107.2 H Carbon Dioxide 21 L BUN 25 H Creatinine Glucose 176 H POC Glucose 155 H 176 H Hemoglobin A1c Lactic Acid Calcium 6.1 L Phosphorus 1.80 L D Magnesium 1.60 L AST ALT Ammonia Troponin T C-Reactive Protein Total Protein Albumin Triglycerides LDL Cholesterol Direct HDL Cholesterol Urine Creatinine Urine Total Protein Crossmatch 08/06/22 08/06/22 08/07/22 21:34 23:22 00:02 WBC RBC 2.98 L Hgb 8.4 L Hct 26.2 L MCV MCHC RDW 15.5 H Plt Count Lymph % (Auto) 11.3 L Lymph # (Auto) 0.9 L [place] # (Auto) Seg Neutrophils % 81.9 H Seg Neuts % (Manual) Lymphocytes % (Manual) Seg Neutrophils # Seg Neutrophils # Man Lymphocytes # (Manual) ABG pH ABG pO2 ABG HCO3 ABG O2 Saturation ABG Base Excess ABG Hemoglobin Oxyhemoglobin Sodium Potassium Chloride Carbon Dioxide BUN Creatinine Glucose POC Glucose 206 H 188 H Hemoglobin A1c Lactic Acid Calcium Phosphorus Magnesium AST ALT Ammonia Troponin T C-Reactive Protein Total Protein Albumin Triglycerides LDL Cholesterol Direct HDL Cholesterol Urine Creatinine Urine Total Protein Crossmatch 08/07/22 08/07/22 08/07/22 04:16 04:16 04:49 WBC RBC 3.12 L Hgb 8.8 L Hct 27.4 L MCV MCHC RDW 15.4 H Plt Count Lymph % (Auto) 10.6 L Lymph # (Auto) 0.9 L [place] # (Auto) Seg Neutrophils % 83.1 H Seg Neuts % (Manual) Lymphocytes % (Manual) Seg Neutrophils # Seg Neutrophils # Man Lymphocytes # (Manual) ABG pH ABG pO2 ABG HCO3 ABG O2 Saturation ABG Base Excess ABG Hemoglobin Oxyhemoglobin Sodium Potassium 3.4 L Chloride 107.8 H Carbon Dioxide BUN 21 H Creatinine Glucose 216 H POC Glucose 192 H Hemoglobin A1c Lactic Acid Calcium 6.1 L Phosphorus 2.00 L Magnesium AST 76 H ALT Ammonia Troponin T C-Reactive Protein Total Protein 5.1 L Albumin 1.8 L Triglycerides LDL Cholesterol Direct HDL Cholesterol Urine Creatinine Urine Total Protein Crossmatch 08/07/22 08/07/22 08/07/22 11:28 16:15 22:16 WBC RBC Hgb Hct MCV MCHC RDW Plt Count Lymph % (Auto) Lymph # (Auto) [place] # (Auto) Seg Neutrophils % Seg Neuts % (Manual) Lymphocytes % (Manual) Seg Neutrophils # Seg Neutrophils # Man Lymphocytes # (Manual) ABG pH ABG pO2 ABG HCO3 ABG O2 Saturation ABG Base Excess ABG Hemoglobin Oxyhemoglobin Sodium Potassium Chloride Carbon Dioxide BUN Creatinine Glucose POC Glucose 204 H 203 H 175 H Hemoglobin A1c Lactic Acid Calcium Phosphorus Magnesium AST ALT Ammonia Troponin T C-Reactive Protein Total Protein Albumin Triglycerides LDL Cholesterol Direct HDL Cholesterol Urine Creatinine Urine Total Protein Crossmatch 08/08/22 08/08/22 08/08/22 00:01 04:46 04:46 WBC RBC 3.16 L Hgb 8.9 L Hct 27.4 L MCV MCHC RDW 15.5 H Plt Count Lymph % (Auto) Lymph # (Auto) [place] # (Auto) Seg Neutrophils % Seg Neuts % (Manual) Lymphocytes % (Manual) Seg Neutrophils # Seg Neutrophils # Man Lymphocytes # (Manual) ABG pH ABG pO2 ABG HCO3 ABG O2 Saturation ABG Base Excess ABG Hemoglobin Oxyhemoglobin Sodium Potassium Chloride Carbon Dioxide BUN Creatinine Glucose 200 H POC Glucose 183 H Hemoglobin A1c Lactic Acid Calcium 6.3 L Phosphorus Magnesium AST 81 H ALT Ammonia Troponin T C-Reactive Protein Total Protein 5.1 L Albumin 1.7 L Triglycerides LDL Cholesterol Direct HDL Cholesterol Urine Creatinine Urine Total Protein Crossmatch 08/08/22 08/08/22 08/08/22 06:14 11:27 16:41 WBC RBC Hgb Hct MCV MCHC RDW Plt Count Lymph % (Auto) Lymph # (Auto) [place] # (Auto) Seg Neutrophils % Seg Neuts % (Manual) Lymphocytes % (Manual) Seg Neutrophils # Seg Neutrophils # Man Lymphocytes # (Manual) ABG pH ABG pO2 ABG HCO3 ABG O2 Saturation ABG Base Excess ABG Hemoglobin Oxyhemoglobin Sodium Potassium Chloride Carbon Dioxide BUN Creatinine Glucose POC Glucose 206 H 196 H 199 H Hemoglobin A1c Lactic Acid Calcium Phosphorus Magnesium AST ALT Ammonia Troponin T C-Reactive Protein Total Protein Albumin Triglycerides LDL Cholesterol Direct HDL Cholesterol Urine Creatinine Urine Total Protein Crossmatch 08/08/22 08/08/22 08/09/22 22:50 23:52 04:53 WBC RBC 3.00 L Hgb 8.4 L Hct 26.4 L MCV MCHC RDW 15.7 H Plt Count Lymph % (Auto) Lymph # (Auto) [place] # (Auto) Seg Neutrophils % Seg Neuts % (Manual) Lymphocytes % (Manual) Seg Neutrophils # Seg Neutrophils # Man Lymphocytes # (Manual) ABG pH ABG pO2 ABG HCO3 ABG O2 Saturation ABG Base Excess ABG Hemoglobin Oxyhemoglobin Sodium Potassium Chloride Carbon Dioxide BUN Creatinine Glucose POC Glucose 198 H 226 H Hemoglobin A1c Lactic Acid Calcium Phosphorus Magnesium AST ALT Ammonia Troponin T C-Reactive Protein Total Protein Albumin Triglycerides LDL Cholesterol Direct HDL Cholesterol Urine Creatinine Urine Total Protein Crossmatch 08/09/22 08/09/22 08/09/22 04:53 05:38 11:29 WBC RBC Hgb Hct MCV MCHC RDW Plt Count Lymph % (Auto) Lymph # (Auto) [place] # (Auto) Seg Neutrophils % Seg Neuts % (Manual) Lymphocytes % (Manual) Seg Neutrophils # Seg Neutrophils # Man Lymphocytes # (Manual) ABG pH ABG pO2 ABG HCO3 ABG O2 Saturation ABG Base Excess ABG Hemoglobin Oxyhemoglobin Sodium Potassium 3.5 L Chloride Carbon Dioxide BUN Creatinine Glucose 181 H POC Glucose 160 H 174 H Hemoglobin A1c Lactic Acid Calcium 6.2 L Phosphorus Magnesium AST ALT Ammonia Troponin T C-Reactive Protein Total Protein Albumin Triglycerides LDL Cholesterol Direct HDL Cholesterol Urine Creatinine Urine Total Protein Crossmatch 08/09/22 08/09/22 08/10/22 16:11 17:31 00:55 WBC RBC Hgb 8.7 L Hct 27.6 L MCV MCHC RDW Plt Count Lymph % (Auto) Lymph # (Auto) [place] # (Auto) Seg Neutrophils % Seg Neuts % (Manual) Lymphocytes % (Manual) Seg Neutrophils # Seg Neutrophils # Man Lymphocytes # (Manual) ABG pH ABG pO2 ABG HCO3 ABG O2 Saturation ABG Base Excess ABG Hemoglobin Oxyhemoglobin Sodium Potassium Chloride Carbon Dioxide BUN Creatinine Glucose POC Glucose 205 H 204 H Hemoglobin A1c Lactic Acid Calcium Phosphorus Magnesium AST ALT Ammonia Troponin T C-Reactive Protein Total Protein Albumin Triglycerides LDL Cholesterol Direct HDL Cholesterol Urine Creatinine Urine Total Protein Crossmatch 08/10/22 08/10/22 08/10/22 05:03 05:03 06:26 WBC RBC 2.92 L Hgb 8.4 L Hct 25.6 L MCV MCHC RDW 15.7 H Plt Count Lymph % (Auto) Lymph # (Auto) [place] # (Auto) Seg Neutrophils % Seg Neuts % (Manual) Lymphocytes % (Manual) Seg Neutrophils # Seg Neutrophils # Man Lymphocytes # (Manual) ABG pH ABG pO2 ABG HCO3 ABG O2 Saturation ABG Base Excess ABG Hemoglobin Oxyhemoglobin Sodium Potassium Chloride Carbon Dioxide BUN Creatinine Glucose 161 H POC Glucose 177 H Hemoglobin A1c Lactic Acid Calcium 6.6 L Phosphorus Magnesium AST ALT Ammonia Troponin T C-Reactive Protein Total Protein Albumin Triglycerides LDL Cholesterol Direct HDL Cholesterol Urine Creatinine Urine Total Protein Crossmatch 08/10/22 08/10/22 08/10/22 12:17 18:34 22:37 WBC RBC Hgb Hct MCV MCHC RDW Plt Count Lymph % (Auto) Lymph # (Auto) [place] # (Auto) Seg Neutrophils % Seg Neuts % (Manual) Lymphocytes % (Manual) Seg Neutrophils # Seg Neutrophils # Man Lymphocytes # (Manual) ABG pH ABG pO2 ABG HCO3 ABG O2 Saturation ABG Base Excess ABG Hemoglobin Oxyhemoglobin Sodium Potassium Chloride Carbon Dioxide BUN Creatinine Glucose POC Glucose 171 H 248 H 188 H Hemoglobin A1c Lactic Acid Calcium Phosphorus Magnesium AST ALT Ammonia Troponin T C-Reactive Protein Total Protein Albumin Triglycerides LDL Cholesterol Direct HDL Cholesterol Urine Creatinine Urine Total Protein Crossmatch 08/10/22 08/11/22 08/11/22 23:20 04:52 04:52 WBC RBC 2.43 L Hgb 7.0 L 6.8 L Hct 22.1 L 21.4 L MCV MCHC RDW 15.5 H Plt Count Lymph % (Auto) Lymph # (Auto) [place] # (Auto) Seg Neutrophils % Seg Neuts % (Manual) Lymphocytes % (Manual) Seg Neutrophils # Seg Neutrophils # Man Lymphocytes # (Manual) ABG pH ABG pO2 ABG HCO3 ABG O2 Saturation ABG Base Excess ABG Hemoglobin Oxyhemoglobin Sodium Potassium Chloride Carbon Dioxide BUN Creatinine Glucose POC Glucose Hemoglobin A1c Lactic Acid Calcium Phosphorus Magnesium AST ALT Ammonia Troponin T C-Reactive Protein Total Protein Albumin Triglycerides LDL Cholesterol Direct HDL Cholesterol Urine Creatinine Urine Total Protein Crossmatch See Detail 08/11/22 08/11/22 08/11/22 04:52 05:29 12:56 WBC RBC Hgb Hct MCV MCHC RDW Plt Count Lymph % (Auto) Lymph # (Auto) [place] # (Auto) Seg Neutrophils % Seg Neuts % (Manual) Lymphocytes % (Manual) Seg Neutrophils # Seg Neutrophils # Man Lymphocytes # (Manual) ABG pH ABG pO2 ABG HCO3 ABG O2 Saturation ABG Base Excess ABG Hemoglobin Oxyhemoglobin Sodium Potassium Chloride Carbon Dioxide 21 L BUN Creatinine Glucose 137 H POC Glucose 151 H 175 H Hemoglobin A1c Lactic Acid Calcium 7.1 L Phosphorus Magnesium AST ALT Ammonia Troponin T C-Reactive Protein Total Protein Albumin Triglycerides LDL Cholesterol Direct HDL Cholesterol Urine Creatinine Urine Total Protein Crossmatch 08/11/22 08/11/22 08/12/22 22:20 22:42 13:02 WBC RBC 2.78 L Hgb 8.2 L Hct 24.5 L MCV MCHC RDW 15.3 H Plt Count Lymph % (Auto) Lymph # (Auto) [place] # (Auto) Seg Neutrophils % Seg Neuts % (Manual) Lymphocytes % (Manual) Seg Neutrophils # Seg Neutrophils # Man Lymphocytes # (Manual) ABG pH ABG pO2 ABG HCO3 ABG O2 Saturation ABG Base Excess ABG Hemoglobin Oxyhemoglobin Sodium Potassium Chloride Carbon Dioxide BUN Creatinine Glucose POC Glucose 153 H 170 H Hemoglobin A1c Lactic Acid Calcium Phosphorus Magnesium AST ALT Ammonia Troponin T C-Reactive Protein Total Protein Albumin Triglycerides LDL Cholesterol Direct HDL Cholesterol Urine Creatinine Urine Total Protein Crossmatch 08/12/22 08/13/22 17:20 04:05 WBC RBC 2.57 L Hgb 7.4 L Hct 22.5 L MCV MCHC RDW 15.5 H Plt Count Lymph % (Auto) Lymph # (Auto) [place] # (Auto) Seg Neutrophils % Seg Neuts % (Manual) Lymphocytes % (Manual) Seg Neutrophils # Seg Neutrophils # Man Lymphocytes # (Manual) ABG pH ABG pO2 ABG HCO3 ABG O2 Saturation ABG Base Excess ABG Hemoglobin Oxyhemoglobin Sodium Potassium Chloride Carbon Dioxide BUN Creatinine Glucose POC Glucose 155 H Hemoglobin A1c Lactic Acid Calcium Phosphorus Magnesium AST ALT Ammonia Troponin T C-Reactive Protein Total Protein Albumin Triglycerides LDL Cholesterol Direct HDL Cholesterol Urine Creatinine Urine Total Protein Crossmatch
[2022-08-13] MEDS: FAMOTIDINE 10 MG TAB FEEDTUBE SCH ×2 (09:23→21:21)
[2022-08-13] MEDS: AMIODARONE 200 MG TAB FEEDTUBE SCH ×2 (09:23→21:21)
[2022-08-13] MEDS: CALCIUM CARBONATE 1250 MG/5 ML ORAL LIQD FEEDTUBE SCH ×2 (10:05→22:12)
--- NOTE | 2022-08-13 11:09 | Gastroenterology Progress Note ---
Assessment and Plan # Rectal bleeding - no signs of recurrent active bleeding at this time. having brown stool mixed with dark blood, which likely is old blood. - CTA abdomen pelvis with no acute GI bleeding signs, bilateral DVT, inflammatory change involving rectosigmoid colon can be seen with proctitis or colitis. -Hemodynamically stable. - suspect 2/2 infectious colitis. rec: -No plans for colonoscopy at this time. -Recommend supportive care. - currently on empiric antibiotics. -Per primary team, vascular surgery consulted for DVT and valuation for IVC filter. -Continue to monitor H&H serially and transfuse as needed. -We will follow. Subjective Date of service: 08/13/22 Principal diagnosis: Hypernatremia, ARF Interval history: Patient remains on the vent. Per nursing patient had 2 stools overnight with brown formed stool but loose mixed with old blood. Objective - Constitutional Vitals: Temp Pulse Resp BP Pulse Ox 99.8 F H 87 11 L 125/64 100 08/13/22 07:31 08/13/22 10:07 08/13/22 10:07 08/13/22 10:07 08/13/22 10:07 General appearance: obese - Respiratory Respiratory effort: other (on the vent with trach) - Extremities Extremity abnormal: edema - Gastrointestinal General gastrointestinal: Present: soft, non-tender, non-distended, other (PEG tube in place) - Integumentary Integumentary: Absent: jaundice - Labs CBC & Chem 7: 08/13/22 04:05 08/11/22 04:52 Labs: Laboratory Results - last 24 hr 08/12/22 08/12/22 08/13/22 13:02 17:20 04:05 WBC 5.4 RBC 2.57 L Hgb 7.4 L Hct 22.5 L MCV 87 MCH 29 MCHC 33 RDW 15.5 H Plt Count 152 POC Glucose 170 H 155 H - Imaging CT scan: report reviewed
--- NOTE | 2022-08-13 11:59 | Consultation ---
History of Present Illness - Reason for Consult Consult date: 08/13/22 IVC Filter Placement Requesting physician: YAYA RAMOS - History of Present Illness The patient is a 77-year-old male who was brought to the emergency department, from his long-term, when the family noticed altered mental status during the visit. Upon arriving at the emergency department he was nonresponsive to stimuli which eventually prompted RSI. Shortly after being intubated the emanuel ent became asystolic requiring ACLS protocol. Since that time the patient has had a prolonged ICU course that has required tracheostomy and continue ventilatory support. The patient recently had hematochezia which eventually required transfusion of 2 units of packed red blood cells. At the time of the hematochezia the patient had a rectal tube in place and that has since been removed. Per the notes no further bleeding has been noted. The patient underwent a CT scan of the abdomen pelvis, to evaluate for a source of bleeding, and there was an incidental finding of a possible DVT. All anticoagulation has been stopped including prophylactic Lovenox secondary to the bleeding. We have been consulted for possible IVC filter placement. Past History Past Medical History: acute NM, diabetes, hypertension, other (Hematochezia) Past Surgical History: cholecystectomy, Other (PEG tube placement, tracheostomy) Social history: no significant social history Family history: diabetes, hypertension Medications and Allergies Allergies Allergy/AdvReac Type Severity Reaction Status Date / Time aspirin Allergy Swelling Verified 02/15/20 13:24 iron Allergy Itching Verified 02/15/20 13:24 Home Medications Medication Instructions Recorded Confirmed Last Taken Type metFORMIN [Glucophage] 1,000 mg PO BID 02/11/14 02/15/20 02/14/20 History Acetaminophen [Acetaminophen ER 650 mg PO Q8HR PRN #20 tablet.er 10/21/19 02/15/20 Unknown Rx TAB] ALBUTEROL NEB's [Proventil 0.083% 2.5 mg IH Q3HRT PRN #30 nebu 03/09/20 Unknown Rx NEBS] Aspirin EC [Halfprin EC] 81 mg PO QDAY #30 tablet.dr 03/09/20 Unknown Rx AtorvaSTATin [Lipitor] 40 mg FEEDTUBE QHS #30 tablet 03/09/20 Unknown Rx Famotidine [Pepcid] 20 mg FEEDTUBE DAILY #30 tablet 03/09/20 Unknown Rx Insulin Glargine [Lantus VIAL] 50 units SUB-Q QAMDIAB #1 vial 03/09/20 Unknown Rx Insulin Glargine [Lantus VIAL] 50 units SUB-Q QHS #1 vial 03/09/20 Unknown Rx Insulin Regular, Human [HumuLIN R] 0 units SUB-Q Q6HR #1 vial 03/09/20 Unknown Rx Metoclopramide [Reglan ORAL LIQ] 5 mg FEEDTUBE Q6H PRN 30 Days 03/09/20 Unknown Rx Metoprolol [Lopressor TAB] 100 mg FEEDTUBE BID #60 tablet 03/09/20 Unknown Rx amLODIPine 10 mg FEEDTUBE QDAY #30 tablet 03/09/20 Unknown Rx traMADoL [Ultram 50 MG tab] 50 mg FEEDTUBE Q6HR PRN #10 tablet 03/09/20 Unknown Rx Active Meds: Active Medications Acetaminophen (Acetaminophen 325 Mg Tab) 650 mg PO Q4H PRN PRN Reason: Pain MILD(1-3)/Fever >100.5/LANTIGUA Last Admin: 08/08/22 06:11 Dose: 650 mg Acetaminophen (Acetaminophen 650 Mg Rect Supp) 650 mg SD Q4H PRN PRN Reason: Pain, Mild (1-3) Albuterol (Albuterol 2.5 Mg/3 Ml Nebu) 2.5 mg IH Q3HRT PRN PRN Reason: Shortness Of Breath Amiodarone HCl (Amiodarone 200 Mg Tab) 200 mg FEEDTUBE BID [facility] Last Admin: 08/13/22 09:23 Dose: 200 mg Atorvastatin Calcium (Atorvastatin 40 Mg Tab) 40 mg FEEDTUBE QHS [facility] Last Admin: 08/12/22 21:17 Dose: 40 mg Calcium Carbonate/Glycine (Calcium Carbonate 1250 Mg/5 Ml Oral Liqd) 1,250 mg FEEDTUBE BID [facility] Last Admin: 08/13/22 10:05 Dose: 1,250 mg Dextrose (Dextrose 50% In Water (25gm) 50 Ml Syringe) 50 ml IV Q30MIN PRN; Protocol PRN Reason: Hypoglycemia Last Admin: 08/04/22 06:03 Dose: 50 ml Famotidine (Famotidine 10 Mg Tab) 10 mg FEEDTUBE BID [facility] Last Admin: 08/13/22 09:23 Dose: 10 mg Meropenem/Sodium Chloride (Merrem/Ns 1 Gram/100 Ml) 1 gram in 100 mls @ 100 mls/hr IV Q8H [facility]; Protocol Stop: 08/14/22 02:59 Last Admin: 08/13/22 09:23 Dose: 100 mls/hr Phenylephrine HCl 50 mg/ (Sodium Chloride) 250 mls @ 7.47 mls/hr IV TITR [facility]; Protocol Insulin Glargine (Insulin Glargine 100 Units/Ml) 20 units SUB-Q QHS [facility] Last Admin: 08/12/22 21:17 Dose: 20 units Insulin Human Regular (Insulin Regular, Human 100 Units/1 Ml) 0 units SUB-Q Q6H [facility]; Protocol Last Admin: 08/13/22 06:38 Dose: 3 units Multi-Ingred Cream/Lotion/Oil/Oint (Mineral Oil/Petrolatum, White Ophth Oint 3.5 Gm) 1 applic OU PRN PRN PRN Reason: Dry Eye(s) Last Admin: 08/12/22 09:11 Dose: 1 applic Nitroglycerin (Nitroglycerin 0.4 Mg Tab Subl) 0.4 mg SL Q5M PRN PRN Reason: Chest Pain Ondansetron HCl (Ondansetron 4 Mg/2 Ml Inj) 4 mg IV Q8H PRN PRN Reason: Nausea And Vomiting Sodium Bicarbonate (Sodium Bicarbonate 650 Mg Tab) 650 mg FEEDTUBE TID [facility] Last Admin: 08/13/22 08:17 Dose: 650 mg Sodium Chloride (Sodium Chloride 0.9% 10 Ml Flush Syringe) 10 ml IV BID [facility] Last Admin: 08/13/22 09:24 Dose: 10 ml Sodium Chloride (Sodium Chloride 0.9% 10 Ml Flush Syringe) 10 ml IV PRN PRN PRN Reason: LINE FLUSH Review of Systems ROS unobtainable: due to endotracheal tube, due to mental status Exam - Constitutional Vitals: Temp Pulse Resp BP Pulse Ox 99.8 F H 91 H 28 H 119/68 99 08/13/22 07:31 08/13/22 11:00 08/13/22 11:00 08/13/22 11:00 08/13/22 11:00 General appearance: Present: no acute distress, other (Ventilatory support) - Respiratory Respiratory effort: other (Ventilator supported however the patient is on pressure support and initiating breaths) - Extremities Extremities: normal temperature (Left leg and right arm are warm), abnormal (Ulcerations to left lower extremity, no significant ulcerations noted on the right lower extremity, right upper extremity with multiple blisters and denuded skin on the hand) Extremity abnormal: cold (Right lower extremity is slightly cool) - Abdominal General gastrointestinal: Present: deferred Male genitourinary: Present: deferred - Rectal Rectal Exam: deferred Results - Labs CBC & Chem 7: 08/13/22 04:05 08/11/22 04:52 Labs: Abnormal lab results 08/12/22 08/12/22 08/13/22 Range/Units 13:02 17:20 04:05 RBC 2.57 L (3.65-5.03) M/mm3 Hgb 7.4 L (11.8-15.2) gm/dl Hct 22.5 L (35.5-45.6) % RDW 15.5 H (13.2-15.2) % POC Glucose 170 H 155 H (70-105) mg/dL Assessment and Plan The patient is a 77-year-old male with multiple medical problems including hematochezia that occurred when he had a rectal tube however that tube has been removed. Since the removal of the tube the patient has not had any further bleeding. It is quite possible that the patient developed ulceration of his rectum secondary to the rectal tube. There was an incidental finding of a possible DVT on the CT scan however this is nonspecific. The patient requires an ultrasound of bilateral lower extremities to confirm the finding of a DVT. Depending on his findings the patient may require placement of an IVC filter. This does come with the risk of thrombosis of the entire IVC if the patient is not able to tolerate anticoagulation and does not have the filter removed. Thrombosis of the IVC could therefore result in massive swelling of the lower extremities with worsening of the patient's ulcerations and lead to the need for intervention including amputation. If the patient does indeed have a DVT and his hemoglobin and hematocrit remained stable will consider restarting anticoagulation and evaluating for bleeding. DVTs are better managed with anticoagulation if tolerated. Venous duplex of bilateral lower extremities has been ordered and further recommendations will be placed on the chart once the test has been performed.
--- NOTE | 2022-08-13 12:28 | Progress Note ---
<MISTYSHANE CamaraSweta - Last Filed: 08/13/22 12:22> Assessment and Plan Assessment and plan: Assessment/ Plan This is a 77-year-old male with DM, paroxysmal atrial fibrillation, HTN, CVA (2020) admitted s/p cardiac arrest with acute hypoxic respiratory failure and DKA Neuro: Acute metabolic encephalopathy, hepatic encephalopathy, ALEC ,subclinical status epilepticus ruled out, h/o CVA (2019) -Sluggish pupils, no cough/gag, periodic spontaneous respiration -Neurology consulted, appreciate recommendations -Initial CT head with no acute abnormality -EEG is Likely compatible with diffuse encephalopathy -Per neurology aim for euglycemia and permissive hypertension for now -Ammonia 64 -MRI brain shows diffuse diffusion abnormality involving cerebral and cerebellum compatible with diffuse hypoxia given the patient's history, interval evolving of left [employer] infarct from 02/16/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 Cardiac: S/p cardiac arrest, A. fib RVR, h/o hypertension, paroxysmal atrial fibrillation, hyperlipidemia -Patient suffered cardiac arrest on 07/25 in the ED and then was noted to be in A. fib with RVR -Amiodarone PO -Cardiology consulted, appreciate recommendations -Blood pressure monitoring per protocol -S/p vasopressor support with Levophed and vasopressin -MAP goal greater than 65 -Echocardiogram shows EF 50 to 60%, no pericardial effusion -Lipitor Respiratory: Acute hypoxic respiratory failure -CCM consulted, appreciate recommendations -Intubated on 07/25 with a 8.00 ETT in the ED -08/02 s/p trach and peg exchange -A.m. vent settings: Assist-control rate 14, tidal volume 400, PEEP 6, FiO2 35% -See RT notes for titration -A.m. ABG and CXR noted -VAP bundle -SPO2 monitoring GI: Protein calorie malnutrition, r/o GIB -GI consulted, appreciate recommendation -NTR consult for tube feeding -08/02 peg exchange -PPI -Abdomen/pelvis CTA with showed no acute GI bleed, bilateral DVTs, inflammatory changes involving rectosigmoid colon can be seen with proctitis or colitis, incidental findings of bibasilar consolidation concerning for evolving pneumonia : Acute kidney injury likely secondary to vasomotor nephropathy (resolved) -S/p 5 L LR bolus -Nephrology consulted, appreciate recommendations -Serum creatinine 03/08/2020 was 1.3 -Monitor intake and output -Renally dose medications -Avoid nephrotoxic medications -FeNa 1.8% -FWF -Renal ultrasound noted -Trend BMP ID: Sepsis, Klebsiella pneumonia -Hypotension, acute kidney injury, acute respiratory failure, lactic acidosis -Antibiotic therapy merrem -MRSA PCR negative -s/p solu-cortef -f/u blood culture -Monitor WBC and temperature curve Endo: s/p DKA, h/o DM -Presented with anion gap of 21, glucose of 761, VBG 7.362 -s/p Insulin drip -Accu-Cheks q6hr -SSI -Long-acting insulin, titrate as needed -Hemaglobin A1C 12.3 Heme: Acute Anemia, acute bilateral DVTs -Noted on CTA abdomen/pelvis -Patient unable to tolerate anticoagulation in setting of active rectal bleeding -Vascular surgery consulted for possible IVC filter -HIT negative -Trend CBC -Transfuse hemoglobin less than 7 -S/p 2 units PRBC -SCDs to BLE while in bed The high probability of a clinically significant, sudden or life threatening deterioration of the [multi] system(s) required my full and direct attention, intervention and personal management. The aggregate critical care time was [60] minutes. This time is in addition to time spent performing reported procedures but includes the following: [x] Data Review and interpretation [x] Patient assessment and monitoring of vital signs [x] Documentation [x] Medication orders and management Disposition Plan: icu Total Time Spent with Patient (Minutes): 60 History Interval history: This is a 77-year-old male who is [place] [facility] patient at [facility] with DM, paroxysmal atrial fibrillation, HTN, CVA (2020) presents the emergency department on 07/26 via EMS with hypoglycemia and unresponsiveness. In the emergency department patient was deciding 7% on room air and was placed on nonrebreather but sats have increased to greater than 81% and the patient was obtunded therefore ED physician decided to intubate the patient. Per documentation after intubation patient went into PEA arrest and ACLS was initiated and ROSC was achieved after approximately 13 minutes. Work-up in the emergency department revealed leukocytosis, hyponatremia 155, elevated BUN/creatinine at 3.5/74, anion gap metabolic acidosis and hyperglycemia 734. Patient was admitted to the hospital service with consults to cardiology, CCM and nephrology on DKA protocol on mechanical ventilation. Hospital course to date: 07/26: Patient is on any sedation, very sluggish pupillary response, no cough/gag noted, no seizure activity. Neurology recs repeat CT head without contrast or MRI brain without contrast when clinically stable. Patient also had a EEG completed today. Patient is currently maxed on Levophed and vasopressin. Given several LR boluses today. Antibiotics broadened and stress dose steroids added. 07/27: Weaning pressors, phosphorus repleted, SSI and long-acting insulin initiated, tube feeding initiated. Patient now has a hypoactive cough/gag. CT head pending. LR bolus. Thrombocytopenia noted. Cardiology would like to s tart heparin drip due to atrial fibrillation however would like neurology input prior to. 07/28: Patient remains off of vasopressors, patient had MRI today. Worsening renal function noted. Cardiology will hold off amiodarone due to thrombocytopenia. No acute events reported overnight. 07/29: I had an extensive conversation with son and at bedside to with the help of an french cord binder through the ladies' locker room attendant line. Explained thoroughly of presentation to the ED from documentation, cardiac arrest, CT head and MRI brain findings. They are still electing to continue aggressive care and would like hospital assistance with getting a visa for youngest son to come to the [facility] from [place]. assistant department manager is aware of request. Steroid taper started. CBC pending. Will be repleted. Hypernatremia improving. 07/30: LR bolus, renal function is improved, thrombocytopenia worse. Likely cons ult surgery for trach/peg as per family requests to continue care. No acute events overnight. 07/31: Patient's mentation is unchanged. Remains on low vent setting. D/w [facility] general surgery consulted for possible trach and PEG. Renal function is improving, still hypenatremic, continue FWF per Nephrology. K repleted, continue to - Monitor and replace electrolytes as needed. Patient remains in SR on the monitor, VSS. Amiodarone gtt transitioned to PO amio per Cardio. 08/01: Condition unchanged, remains stable on low vent setting. Renal function continue to improve with persistent hypernatremia, continue FWF per Nephro. General Surgery recommendations noted. D/w General surgery, plan for possible trach and PEG exchange tomorrow or . 08/02: Remains stable on low vent settings. NPO since after midnight for possible trach/PEG today by General Surgery. Patient remains hypernatremic and due to NPO status, FWF was held. Will initiated low dose D5W gtt for now. And also to prevent hypoglycemia while NPO, patient is on Lantus BID. Currently on steroids taper, will hold tonight does and reduce Lantus to Qhs starting tomorrow. Close monitoring of BG and electrolytes. Nephrology is also following. 08/03: S/p trach and PEG exchange. Remains stable on the vent with no complications. Tolerating TF and also Tolerated 2hrs of PSV trial this am. Continue to taper IV steroids, qhs Lantus adjusted to avoid hypoglycemia. Hypernatremia improved, continue FWF per Nephro. Possible LTAC placement, case management to arrange. 08/04: ABRAM overnight. Sodium normalized this morning, electrolytes repleted, continue to monitor and replace electrolytes as needed. Nephrology is also following. Hypoglycemic overnight, TF not yet at goal, will hold Lantus for now. Continue daily PSV trial as tolerated. Possible LTAC placement, case management to arrange. 08/05: Now with thick secretions orally and via ETT, with persistent fevers. This am CXR suggesting possible developing lower lobe PNA. VSS. Will panculture and initiate empiric IV abx- Cefepine. Check CRP and procal. Remove Yañez catheter and follow Yañez removal protocol. ID was also consulted for further recs. TF is now at goal, hyperglycemic today, will resume qhs Lantus. Hyponatremia resolved, FWF adjusted. 08/06: Remains stable on low vent settings. Still with low grade fevers, procal and repeat cultures pending. ID recommendations noted. C/f for possible allergic reaction vs skin infection due to persistent skin blisters. Cefepine switched to Merrem and Vanco. Check CBC with Diff, continue to follow up on cultures. 08/07: No acute events reported overnight, T-max today 102. 08/16: Patient was noted to have blood clots in stool overnight and Lovenox was discontinued but was restarted given stable H&H. CPAP trial today. Vancomycin discontinued. 08/09: Noted to be GI bleeding, anticoagulation stopped. GI consulted. No plans for scope. 08/10: No acute events reported overnight. repeat COVID-19 PCR negative 08/11: Patient had a CT abdomen/pelvis which showed DVTs however patient is GI bleeding still and unable to tolerate anticoagulation at this time. Transfer to [place] [facility] was canceled. Patient did receive 2 units PRBC today which were ordered yesterday. 08/12: DVTs noted but unable to tolerate coagulation in setting of recent GI bleeding with symptomatic anemia therefore IR consulted for possible IVC placement. No further GI bleeding noted by RN. No acute events reported overnight. 08/13: CPAP trial as tolerated, no acute events reported overnight. RN reports blood BMs overnight Hospitalist Physical - Physical exam Narrative exam: General appearance: Present: no acute distress, other (Intubated and unresponsive) - EENT Eyes: Absent: PERRL ENT: poor dentition - Neck Neck: Present: normal ROM - Respiratory Respiratory effort: normal Respiratory: bilateral: diminished - Cardiovascular Rhythm: regular Heart Sounds: Present: S1 & S2. Absent: systolic murmur, diastolic murmur - Extremities Extremities: pulses intact, pulses symmetrical Extremity abnormal: edema Peripheral Pulses: within normal limits - Abdominal General gastrointestinal: soft, non-tender, non-distended, normal bowel sounds - Integumentary Integumentary: Present: right hand macerated, leaking fluid - Psychiatric Psychiatric: other - Neurologic Neurologic: other, Pupils not reactive, weak to absent cough/gag, no response to painful stimuli - Allied Health Allied health notes reviewed: nursing, RT, social work - Constitutional Vitals: Temp Pulse Resp BP Pulse Ox 99.5 F 91 H 28 H 119/68 99 08/13/22 12:17 08/13/22 11:00 08/13/22 11:00 08/13/22 11:00 08/13/22 11:00 General appearance: Present: no acute distress, other (Ventilatory support) HEART Score - HEART Score Troponin: Troponin T 0.049 ng/mL (0.00-0.029) H D 07/26/22 15:36 Results - Labs CBC & Chem 7: 08/13/22 04:05 08/11/22 04:52 Labs: Laboratory Last Values WBC 5.4 K/mm3 (4.5-11.0) 08/13/22 04:05 RBC 2.57 M/mm3 (3.65-5.03) L 08/13/22 04:05 Hgb 7.4 gm/dl (11.8-15.2) L 08/13/22 04:05 Hct 22.5 % (35.5-45.6) L 08/13/22 04:05 MCV 87 fl (84-94) 08/13/22 04:05 MCH 29 pg (28-32) 08/13/22 04:05 MCHC 33 % (32-34) 08/13/22 04:05 RDW 15.5 % (13.2-15.2) H 08/13/22 04:05 Plt Count 152 K/mm3 (140-440) 08/13/22 04:05 Lymph % (Auto) 10.6 % (13.4-35.0) L 08/07/22 04:16 Dillon % (Auto) 5.4 % (0.0-7.3) 08/07/22 04:16 Eos % (Auto) 0.7 % (0.0-4.3) 08/07/22 04:16 Baso % (Auto) 0.2 % (0.0-1.8) 08/07/22 04:16 Lymph # (Auto) 0.9 K/mm3 (1.2-5.4) L 08/07/22 04:16 Dillon # (Auto) 0.4 K/mm3 (0.0-0.8) 08/07/22 04:16 Eos # (Auto) 0.1 K/mm3 (0.0-0.4) 08/07/22 04:16 Baso # (Auto) 0.0 K/mm3 (0.0-0.1) 08/07/22 04:16 Add Manual Diff Complete 07/27/22 03:50 Total Counted 100 07/27/22 03:50 Seg Neutrophils % 83.1 % (40.0-70.0) H 08/07/22 04:16 Seg Neuts % (Manual) 78.0 % (40.0-70.0) H 07/27/22 03:50 Band Neutrophils % 16.0 % 07/27/22 03:50 Lymphocytes % (Manual) 3.0 % (13.4-35.0) L 07/27/22 03:50 Reactive Lymphs % (Man) 0 % 07/27/22 03:50 Monocytes % (Manual) 2.0 % (0.0-7.3) 07/27/22 03:50 Eosinophils % (Manual) 0 % (0.0-4.3) 07/27/22 03:50 Basophils % (Manual) 0 % (0.0-1.8) 07/27/22 03:50 Metamyelocytes % 1.0 % 07/27/22 03:50 Myelocytes % 0 % 07/27/22 03:50 Promyelocytes % 0 % 07/27/22 03:50 Blast Cells % 0 % 07/27/22 03:50 Nucleated RBC % Not Reportable 07/27/22 03:50 Seg Neutrophils # 6.7 K/mm3 (1.8-7.7) 08/07/22 04:16 Seg Neutrophils # Man 12.0 K/mm3 (1.8-7.7) H 07/27/22 03:50 Band Neutrophils # 2.5 K/mm3 07/27/22 03:50 Lymphocytes # (Manual) 0.5 K/mm3 (1.2-5.4) L 07/27/22 03:50 Abs React Lymphs (Man) 0.0 K/mm3 07/27/22 03:50 Monocytes # (Manual) 0.3 K/mm3 (0.0-0.8) 07/27/22 03:50 Eosinophils # (Manual) 0.0 K/mm3 (0.0-0.4) 07/27/22 03:50 Basophils # (Manual) 0.0 K/mm3 (0.0-0.1) 07/27/22 03:50 Metamyelocytes # 0.2 K/mm3 07/27/22 03:50 Myelocytes # 0.0 K/mm3 07/27/22 03:50 Promyelocytes # 0.0 K/mm3 07/27/22 03:50 Blast Cells # 0.0 K/mm3 07/27/22 03:50 WBC Morphology Not Reportable 07/27/22 03:50 Hypersegmented Neuts Not Reportable 07/27/22 03:50 Hyposegmented Neuts Not Reportable 07/27/22 03:50 Hypogranular Neuts Not Reportable 07/27/22 03:50 Smudge Cells Not Reportable 07/27/22 03:50 Toxic Granulation Not Reportable 07/27/22 03:50 Toxic Vacuolation Not Reportable 07/27/22 03:50 Dohle Bodies Not Reportable 07/27/22 03:50 Pelger-Huet Anomaly Not Reportable 07/27/22 03:50 Jay Rods Not Reportable 07/27/22 03:50 Platelet Estimate Consistent w auto 07/27/22 03:50 Clumped Platelets Not Reportable 07/27/22 03:50 Plt Clumps, EDTA Not Reportable 07/27/22 03:50 Large Platelets Not Reportable 07/27/22 03:50 Giant Platelets Not Reportable 07/27/22 03:50 Platelet Satelliting Not Reportable 07/27/22 03:50 Plt Morphology Comment Not Reportable 07/27/22 03:50 RBC Morphology Not Reportable 07/27/22 03:50 Dimorphic RBCs Not Reportable 07/27/22 03:50 Polychromasia Not Reportable 07/27/22 03:50 Hypochromasia Not Reportable 07/27/22 03:50 Poikilocytosis Not Reportable 07/27/22 03:50 Anisocytosis Not Reportable 07/27/22 03:50 Microcytosis Not Reportable 07/27/22 03:50 Macrocytosis Not Reportable 07/27/22 03:50 Spherocytes Not Reportable 07/27/22 03:50 Pappenheimer Bodies Not Reportable 07/27/22 03:50 Sickle Cells Not Reportable 07/27/22 03:50 Target Cells Not Reportable 07/27/22 03:50 Tear Drop Cells Not Reportable 07/27/22 03:50 Ovalocytes Not Reportable 07/27/22 03:50 Helmet Cells Not Reportable 07/27/22 03:50 [place] Bodies Not Reportable 07/27/22 03:50 [place] Rings Not Reportable 07/27/22 03:50 Rapelje Cells Not Reportable 07/27/22 03:50 Bite Cells Not Reportable 07/27/22 03:50 Crenated Cell Not Reportable 07/27/22 03:50 Elliptocytes Not Reportable 07/27/22 03:50 Acanthocytes (Spur) Not Reportable 07/27/22 03:50 Rouleaux Not Reportable 07/27/22 03:50 Hemoglobin C Crystals Not Reportable 07/27/22 03:50 Schistocytes Not Reportable 07/27/22 03:50 Malaria parasites Not Reportable 07/27/22 03:50 [place] Bodies Not Reportable 07/27/22 03:50 Hem Pathologist Commnt No 07/27/22 03:50 PT 14.3 Sec. (12.2-14.9) 07/31/22 04:13 INR 0.97 (0.87-1.13) 07/31/22 04:13 Heparin Anti-Xa, Unfract Negative (Negative) 08/01/22 04:17 ABG pH 7.500 pH Units (7.350-7.450) H 08/03/22 03:35 ABG pCO2 26.7 mm Hg 08/03/22 03:35 ABG pO2 129.6 mm Hg (80.0-90.0) H 08/03/22 03:35 ABG HCO3 20.4 mmol/L (20.0-26.0) 08/03/22 03:35 ABG O2 Saturation 98.7 % (95.0-99.0) 08/03/22 03:35 ABG O2 Content 13.5 (0.0-44) 08/03/22 03:35 ABG Base Excess -2.0 mmol/L (-2.0-3.0) 08/03/22 03:35 ABG Hemoglobin 9.7 gm/dl (14.0-18.0) L 08/03/22 03:35 ABG Carboxyhemoglobin 1.5 % (0.0-5.0) 08/03/22 03:35 ABG Methemoglobin 0.4 % (0.0-1.5) 08/03/22 03:35 VBG pH 7.362 (7.320-7.420) 07/25/22 19:37 Oxyhemoglobin 96.8 % (95.0-99.0) 08/03/22 03:35 FiO2 30 % 08/03/22 03:35 Sodium 138 mmol/L (137-145) 08/11/22 04:52 Potassium 4.2 mmol/L (3.6-5.0) 08/11/22 04:52 Chloride 106.6 mmol/L (98-107) 08/11/22 04:52 Carbon Dioxide 21 mmol/L (22-30) L 08/11/22 04:52 Anion Gap 15 mmol/L 08/11/22 04:52 BUN 20 mg/dL (9-20) 08/11/22 04:52 Creatinine 1.0 mg/dL (0.8-1.3) 08/11/22 04:52 Estimated GFR > 60 ml/min 08/11/22 04:52 BUN/Creatinine Ratio 20 % 08/11/22 04:52 Glucose 137 mg/dL (75-100) H 08/11/22 04:52 POC Glucose 155 mg/dL (70-105) H 08/12/22 17:20 Hemoglobin A1c 12.3 % (4-6) H 07/27/22 12:13 Lactic Acid 9.70 mmol/L (0.7-2.0) H* 07/26/22 15:36 Calcium 7.1 mg/dL (8.4-10.2) L 08/11/22 04:52 Phosphorus 2.50 mg/dL (2.5-4.5) 08/11/22 04:52 Magnesium 1.70 mg/dL (1.7-2.3) 08/11/22 04:52 Total Bilirubin 0.30 mg/dL (0.1-1.2) 08/08/22 04:46 Direct Bilirubin < 0.2 mg/dL (0-0.2) 08/08/22 04:46 Indirect Bilirubin 0.1 mg/dL 08/08/22 04:46 AST 81 units/L (5-40) H 08/08/22 04:46 ALT 42 units/L (7-56) 08/08/22 04:46 Alkaline Phosphatase 116 units/L (35-129) 08/08/22 04:46 Ammonia 64.0 umol/L (25-60) H 07/25/22 19:37 Total Creatine Kinase 158 units/L (55-170) 07/25/22 19:37 CK-MB (CK-2) < 1.0 ng/mL (0.0-4.0) 07/25/22 19:37 CK-MB (CK-2) Rel Index 0.6 (0-4) 07/25/22 19:37 Troponin T 0.049 ng/mL (0.00-0.029) H D 07/26/22 15:36 C-Reactive Protein 21.50 mg/dL (0.00-1.30) H 08/05/22 21:43 Total Protein 5.1 g/dL (6.3-8.2) L 08/08/22 04:46 Albumin 1.7 g/dL (3.9-5) L 08/08/22 04:46 Albumin/Globulin Ratio 0.5 % 08/08/22 04:46 Triglycerides 362 mg/dL (2-149) H 07/25/22 19:37 Cholesterol 126 mg/dL (50-199) 07/25/22 19:37 LDL Cholesterol Direct 44 mg/dL (50-130) L 07/25/22 19:37 HDL Cholesterol 34 mg/dL (40-59) L 07/25/22 19:37 Cholesterol/HDL Ratio 3.70 % 07/25/22 19:37 Serotonin Release Assay See scanned result 08/01/22 04:17 Procalcitonin 0.56 ng/mL (<0.15) 08/05/22 21:43 TSH 2.170 mlU/mL (0.270-4.200) 07/25/22 19:37 Free T4 1.18 ng/dL (0.76-1.46) 07/25/22 19:37 Urine Color Lin (Yellow) 08/05/22 11:00 Urine Turbidity Cloudy (Clear) 08/05/22 11:00 Specific [place] (Man) 1.017 (1.003-1.030) 08/05/22 11:00 Ur Protein (Man) 2+ mg/dL (Negative) 08/05/22 11:00 Ur Ketones (Man) Negative (Negative) 08/05/22 11:00 Ur Nitrite (Man) Negative (Negative) 08/05/22 11:00 Ur Reducing Substances Not Reportable 07/26/22 08:31 Urine Bilirubin (Man) Negative (Negative) 08/05/22 11:00 Urine Ictotest Not Reportable 08/05/22 11:00 Leukocyte Esterase (Man) Negative (Negative) 08/05/22 11:00 Urine WBC (Auto) 6.0 /HPF (0.0-6.0) 08/05/22 11:00 Urine RBC (Auto) 6.0 /HPF (0.0-6.0) 08/05/22 11:00 U Epithel Cells (Auto) 1.0 /HPF (0-13.0) 08/05/22 11:00 Urine Bacteria (Auto) 1+ /HPF (Negative) 08/05/22 11:00 Urine RBC (Manual) 4+ (Negative) 08/05/22 11:00 Ur Renal Epithelial Cell 3 /LPF 07/26/22 08:31 Uric Acid Crystals Few 08/05/22 11:00 Amorphous Crystals Few 08/05/22 11:00 Urine Mucus Few /HPF 08/05/22 11:00 Urine Creatinine 118.4 mg/dL (0.1-20.0) H 07/26/22 18:10 Protein/Creatinin Ratio 1.23 07/26/22 18:10 Urine Sodium 108 mmol/L 07/26/22 18:10 Urine Total Protein 146 mg/dL (5-11.8) H 07/26/22 18:10 Nasal Screen MRSA (PCR) Negative (Negative) 08/05/22 14:00 Heparin-induced Plt Ab Negative (Negative) 08/01/22 04:17 UF Heparin High Dose 0 % Release 08/01/22 04:17 SU UFH Low Dose 0.1 0 % Release 08/01/22 04:17 SU UFH Low Dose 0.5 0 % Release 08/01/22 04:17 SARS-CoV-2 (PCR) Negative (Negative) 08/10/22 10:20 Blood Type AB POSITIVE 08/10/22 23:20 Antibody Screen Negative 08/10/22 23:20 Crossmatch See Detail 08/10/22 23:20 Yañez/IV: Voiding Method Indwelling Catheter Active Medications - Current Medications Current Medications: Generic Name Dose Route Start Last Admin Trade Name Freq PRN Reason Stop Dose Admin Acetaminophen 650 mg 07/26/22 00:31 08/08/22 06:11 Acetaminophen 325 Mg Tab PO 650 mg Q4H PRN Administration Pain MILD(1-3)/Fever >100.5/LANTIGUA Acetaminophen 650 mg 07/26/22 02:04 Acetaminophen 650 Mg Rect Supp VT Q4H PRN Pain, Mild (1-3) Albuterol 2.5 mg 07/26/22 00:31 Albuterol 2.5 Mg/3 Ml Nebu IH Q3HRT PRN Shortness Of Breath Amiodarone HCl 200 mg 08/04/22 11:00 08/13/22 09:23 Amiodarone 200 Mg Tab FEEDTUBE 200 mg BID LIZZIE Administration Atorvastatin Calcium 40 mg 08/04/22 22:00 08/12/22 21:17 Atorvastatin 40 Mg Tab FEEDTUBE 40 mg QHS LIZZIE Administration Calcium Carbonate/Glycine 1,250 mg 08/09/22 10:00 08/13/22 10:05 Calcium Carbonate 1250 Mg/5 Ml Oral Liqd FEEDTUBE 1,250 mg BID LIZZIE Administration Dextrose 50 ml 07/27/22 09:25 08/04/22 06:03 Dextrose 50% In Water (25gm) 50 Ml Syringe IV 50 ml Q30MIN PRN Administration Hypoglycemia Protocol Famotidine 10 mg 07/28/22 10:00 08/13/22 09:23 Famotidine 10 Mg Tab FEEDTUBE 10 mg BID LIZZIE Administration Meropenem/Sodium Chloride 1 gram in 100 mls @ 100 mls/hr 08/06/22 10:00 08/13/22 09:23 Merrem/Ns 1 Gram/100 Ml IV 08/14/22 02:59 100 mls/hr Q8H LIZZIE Administration Protocol Phenylephrine HCl 50 mg/ 250 mls @ 7.47 mls/hr 08/10/22 18:45 Sodium Chloride IV TITR LIZZIE Protocol 0.5 MCG/KG/MIN Insulin Glargine 20 units 08/08/22 22:00 08/12/22 21:17 Insulin Glargine 100 Units/Ml SUB-Q 20 units QHS LIZZIE Administration Insulin Human Regular 0 units 07/27/22 12:00 08/13/22 06:38 Insulin Regular, Human 100 Units/1 Ml SUB-Q 3 units Q6H LIZZIE Administration Protocol Multi-Ingred Cream/Lotion/Oil/Oint 1 applic 07/27/22 03:17 08/12/22 09:11 Mineral Oil/Petrolatum, White Ophth Oint 3.5 Gm OU 1 applic PRN PRN Administration Dry Eye(s) Nitroglycerin 0.4 mg 07/26/22 00:31 Nitroglycerin 0.4 Mg Tab Subl SL Q5M PRN Chest Pain Ondansetron HCl 4 mg 07/26/22 00:31 Ondansetron 4 Mg/2 Ml Inj IV Q8H PRN Nausea And Vomiting Sodium Bicarbonate 650 mg 08/04/22 14:00 08/13/22 08:17 Sodium Bicarbonate 650 Mg Tab FEEDTUBE 650 mg TID LIZZIE Administration Sodium Chloride 10 ml 07/26/22 10:00 08/13/22 09:24 Sodium Chloride 0.9% 10 Ml Flush Syringe IV 10 ml BID LIZZIE Administration Sodium Chloride 10 ml 07/26/22 00:31 Sodium Chloride 0.9% 10 Ml Flush Syringe IV PRN PRN LINE FLUSH Nutrition/Malnutrition Assess - Dietary Evaluation Nutrition/Malnutrition Findings: Nutrition Notes Start: 07/26/22 10:25 Freq: Status: Active Protocol: Document 08/07/22 15:00 CM (Rec: 08/07/22 15:13 CM [id number]) Co-Sign 08/07/22 15:00 WW Nutrition Notes Initial or Follow up Brief Note Current Diagnosis Sepsis,Hypertension, Respiratory Failure,Stroke, Hyperlipidemia Other Pertinent Diagnosis s/p Cardiac Arrest, AMS Current Diet TF - Glucerna 45mL/hr Labs/Tests 08/07: K 3.4 Cl 107.8 BUN 21 Glu 216 Pertinent Medications 08/07: Atorvastatin Humulin Height 5 ft 5 in Weight 49.8 kg [place] Body Weight (kg) 61.81 BMI 18.2 Weight Status Underweight Subjective/Other Information RD follow-up per protocol. Pt currently receiving Glucerna @ 45mL/hr. RN reported loose stool 2x q day. No gastric residuals recorded. Pt continues ventilation via tracheostomy. Abdomen large, round, w/ BS+ per physical assessment. No contraindications to continue. GI Symptoms None Skin Integrity/Comment Kane 10 - breakdown / blisters Current % PO Other #2 Nutrition Diagnosis Underweight Diagnosis Progress(for reassessment Continues documentation) #1 Nutrition Diagnosis Inadequate oral intake Diagnosis Progress(for reassessment Continues documentation) Is patient on ventilator? Yes Is Patient Ambulatory and/or Out of Bed No REE-([facility]-confined to bed) 1398.456 Kcal/Kg value to use for calculation 31 Approximate Energy Requirements Using 1544 kcal/Kg Calculation Used for Recommendations Kcal/kg Additional Notes Pro needs 1.2-2.0g/k-100g /day Fluid needs per MD. Nutrition Intervention Nutrition Support: Change TF rate to 55mL/hr of Glucerna 1.2. Flush with 100mL q 4hrs. Kcal 1,584 Protein (gm) 79 Fluid (mL) 1,060 % RDI: 102%Kcal /100% AA Goal #1 TF tolerance Goal #2 TF to provide at least 75% energy and pro needs Follow-Up By: 08/14/22 Additional Comments Monitor TF administration, TF tolerance, nutrition-related labs, wt status. <DASHA DOWNING - Last Filed: 08/13/22 23:30> Assessment and Plan Assessment and plan: I saw and evaluated the patient. I agree with the findings and the plan of care as documented in the Nurse Practitioner's~note, with the following corrections and additions. Hospitalist Physical - Constitutional Vitals: Temp Pulse Resp BP Pulse Ox 98.7 F 89 7 L 137/71 100 08/13/22 19:52 08/13/22 19:50 08/13/22 19:50 08/13/22 19:50 08/13/22 19:50 HEART Score - HEART Score Troponin: Troponin T 0.049 ng/mL (0.00-0.029) H D 07/26/22 15:36 Results - Labs CBC & Chem 7: 08/13/22 04:05 08/11/22 04:52 Labs: Laboratory Last Values WBC 5.4 K/mm3 (4.5-11.0) 08/13/22 04:05 RBC 2.57 M/mm3 (3.65-5.03) L 08/13/22 04:05 Hgb 7.4 gm/dl (11.8-15.2) L 08/13/22 04:05 Hct 22.5 % (35.5-45.6) L 08/13/22 04:05 MCV 87 fl (84-94) 08/13/22 04:05 MCH 29 pg (28-32) 08/13/22 04:05 MCHC 33 % (32-34) 08/13/22 04:05 RDW 15.5 % (13.2-15.2) H 08/13/22 04:05 Plt Count 152 K/mm3 (140-440) 08/13/22 04:05 Lymph % (Auto) 10.6 % (13.4-35.0) L 08/07/22 04:16 [place] % (Auto) 5.4 % (0.0-7.3) 08/07/22 04:16 Eos % (Auto) 0.7 % (0.0-4.3) 08/07/22 04:16 Baso % (Auto) 0.2 % (0.0-1.8) 08/07/22 04:16 Lymph # (Auto) 0.9 K/mm3 (1.2-5.4) L 08/07/22 04:16 Dillon # (Auto) 0.4 K/mm3 (0.0-0.8) 08/07/22 04:16 Eos # (Auto) 0.1 K/mm3 (0.0-0.4) 08/07/22 04:16 Baso # (Auto) 0.0 K/mm3 (0.0-0.1) 08/07/22 04:16 Add Manual Diff Complete 07/27/22 03:50 Total Counted 100 07/27/22 03:50 Seg Neutrophils % 83.1 % (40.0-70.0) H 08/07/22 04:16 Seg Neuts % (Manual) 78.0 % (40.0-70.0) H 07/27/22 03:50 Band Neutrophils % 16.0 % 07/27/22 03:50 Lymphocytes % (Manual) 3.0 % (13.4-35.0) L 07/27/22 03:50 Reactive Lymphs % (Man) 0 % 07/27/22 03:50 Monocytes % (Manual) 2.0 % (0.0-7.3) 07/27/22 03:50 Eosinophils % (Manual) 0 % (0.0-4.3) 07/27/22 03:50 Basophils % (Manual) 0 % (0.0-1.8) 07/27/22 03:50 Metamyelocytes % 1.0 % 07/27/22 03:50 Myelocytes % 0 % 07/27/22 03:50 Promyelocytes % 0 % 07/27/22 03:50 Blast Cells % 0 % 07/27/22 03:50 Nucleated RBC % Not Reportable 07/27/22 03:50 Seg Neutrophils # 6.7 K/mm3 (1.8-7.7) 08/07/22 04:16 Seg Neutrophils # Man 12.0 K/mm3 (1.8-7.7) H 07/27/22 03:50 Band Neutrophils # 2.5 K/mm3 07/27/22 03:50 Lymphocytes # (Manual) 0.5 K/mm3 (1.2-5.4) L 07/27/22 03:50 Abs React Lymphs (Man) 0.0 K/mm3 07/27/22 03:50 Monocytes # (Manual) 0.3 K/mm3 (0.0-0.8) 07/27/22 03:50 Eosinophils # (Manual) 0.0 K/mm3 (0.0-0.4) 07/27/22 03:50 Basophils # (Manual) 0.0 K/mm3 (0.0-0.1) 07/27/22 03:50 Metamyelocytes # 0.2 K/mm3 07/27/22 03:50 Myelocytes # 0.0 K/mm3 07/27/22 03:50 Promyelocytes # 0.0 K/mm3 07/27/22 03:50 Blast Cells # 0.0 K/mm3 07/27/22 03:50 WBC Morphology Not Reportable 07/27/22 03:50 Hypersegmented Neuts Not Reportable 07/27/22 03:50 Hyposegmented Neuts Not Reportable 07/27/22 03:50 Hypogranular Neuts Not Reportable 07/27/22 03:50 Smudge Cells Not Reportable 07/27/22 03:50 Toxic Granulation Not Reportable 07/27/22 03:50 Toxic Vacuolation Not Reportable 07/27/22 03:50 Dohle Bodies Not Reportable 07/27/22 03:50 Pelger-Huet Anomaly Not Reportable 07/27/22 03:50 Jay Rods Not Reportable 07/27/22 03:50 Platelet Estimate Consistent w auto 07/27/22 03:50 Clumped Platelets Not Reportable 07/27/22 03:50 Plt Clumps, EDTA Not Reportable 07/27/22 03:50 Large Platelets Not Reportable 07/27/22 03:50 Giant Platelets Not Reportable 07/27/22 03:50 Platelet Satelliting Not Reportable 07/27/22 03:50 Plt Morphology Comment Not Reportable 07/27/22 03:50 RBC Morphology Not Reportable 07/27/22 03:50 Dimorphic RBCs Not Reportable 07/27/22 03:50 Polychromasia Not Reportable 07/27/22 03:50 Hypochromasia Not Reportable 07/27/22 03:50 Poikilocytosis Not Reportable 07/27/22 03:50 Anisocytosis Not Reportable 07/27/22 03:50 Microcytosis Not Reportable 07/27/22 03:50 Macrocytosis Not Reportable 07/27/22 03:50 Spherocytes Not Reportable 07/27/22 03:50 Pappenheimer Bodies Not Reportable 07/27/22 03:50 Sickle Cells Not Reportable 07/27/22 03:50 Target Cells Not Reportable 07/27/22 03:50 Tear Drop Cells Not Reportable 07/27/22 03:50 Ovalocytes Not Reportable 07/27/22 03:50 Helmet Cells Not Reportable 07/27/22 03:50 [place] Bodies Not Reportable 07/27/22 03:50 [place] Rings Not Reportable 07/27/22 03:50 [place] Cells Not Reportable 07/27/22 03:50 Bite Cells Not Reportable 07/27/22 03:50 Crenated Cell Not Reportable 07/27/22 03:50 Elliptocytes Not Reportable 07/27/22 03:50 Acanthocytes (Spur) Not Reportable 07/27/22 03:50 Rouleaux Not Reportable 07/27/22 03:50 Hemoglobin C Crystals Not Reportable 07/27/22 03:50 Schistocytes Not Reportable 07/27/22 03:50 Malaria parasites Not Reportable 07/27/22 03:50 [place] Bodies Not Reportable 07/27/22 03:50 Hem Pathologist Commnt No 07/27/22 03:50 PT 14.3 Sec. (12.2-14.9) 07/31/22 04:13 INR 0.97 (0.87-1.13) 07/31/22 04:13 Heparin Anti-Xa, Unfract Negative (Negative) 08/01/22 04:17 ABG pH 7.500 pH Units (7.350-7.450) H 08/03/22 03:35 ABG pCO2 26.7 mm Hg 08/03/22 03:35 ABG pO2 129.6 mm Hg (80.0-90.0) H 08/03/22 03:35 ABG HCO3 20.4 mmol/L (20.0-26.0) 08/03/22 03:35 ABG O2 Saturation 98.7 % (95.0-99.0) 08/03/22 03:35 ABG O2 Content 13.5 (0.0-44) 08/03/22 03:35 ABG Base Excess -2.0 mmol/L (-2.0-3.0) 08/03/22 03:35 ABG Hemoglobin 9.7 gm/dl (14.0-18.0) L 08/03/22 03:35 ABG Carboxyhemoglobin 1.5 % (0.0-5.0) 08/03/22 03:35 ABG Methemoglobin 0.4 % (0.0-1.5) 08/03/22 03:35 VBG pH 7.362 (7.320-7.420) 07/25/22 19:37 Oxyhemoglobin 96.8 % (95.0-99.0) 08/03/22 03:35 FiO2 30 % 08/03/22 03:35 Sodium 138 mmol/L (137-145) 08/11/22 04:52 Potassium 4.2 mmol/L (3.6-5.0) 08/11/22 04:52 Chloride 106.6 mmol/L (98-107) 08/11/22 04:52 Carbon Dioxide 21 mmol/L (22-30) L 08/11/22 04:52 Anion Gap 15 mmol/L 08/11/22 04:52 BUN 20 mg/dL (9-20) 08/11/22 04:52 Creatinine 1.0 mg/dL (0.8-1.3) 08/11/22 04:52 Estimated GFR > 60 ml/min 08/11/22 04:52 BUN/Creatinine Ratio 20 % 08/11/22 04:52 Glucose 137 mg/dL (75-100) H 08/11/22 04:52 POC Glucose 169 mg/dL (70-105) H 08/13/22 16:11 Hemoglobin A1c 12.3 % (4-6) H 07/27/22 12:13 Lactic Acid 9.70 mmol/L (0.7-2.0) H* 07/26/22 15:36 Calcium 7.1 mg/dL (8.4-10.2) L 08/11/22 04:52 Phosphorus 2.50 mg/dL (2.5-4.5) 08/11/22 04:52 Magnesium 1.70 mg/dL (1.7-2.3) 08/11/22 04:52 Total Bilirubin 0.30 mg/dL (0.1-1.2) 08/08/22 04:46 Direct Bilirubin < 0.2 mg/dL (0-0.2) 08/08/22 04:46 Indirect Bilirubin 0.1 mg/dL 08/08/22 04:46 AST 81 units/L (5-40) H 08/08/22 04:46 ALT 42 units/L (7-56) 08/08/22 04:46 Alkaline Phosphatase 116 units/L (35-129) 08/08/22 04:46 Ammonia 64.0 umol/L (25-60) H 07/25/22 19:37 Total Creatine Kinase 158 units/L (55-170) 07/25/22 19:37 CK-MB (CK-2) < 1.0 ng/mL (0.0-4.0) 07/25/22 19:37 CK-MB (CK-2) Rel Index 0.6 (0-4) 07/25/22 19:37 Troponin T 0.049 ng/mL (0.00-0.029) H D 07/26/22 15:36 C-Reactive Protein 21.50 mg/dL (0.00-1.30) H 08/05/22 21:43 Total Protein 5.1 g/dL (6.3-8.2) L 08/08/22 04:46 Albumin 1.7 g/dL (3.9-5) L 08/08/22 04:46 Albumin/Globulin Ratio 0.5 % 08/08/22 04:46 Triglycerides 362 mg/dL (2-149) H 07/25/22 19:37 Cholesterol 126 mg/dL (50-199) 07/25/22 19:37 LDL Cholesterol Direct 44 mg/dL (50-130) L 07/25/22 19:37 HDL Cholesterol 34 mg/dL (40-59) L 07/25/22 19:37 Cholesterol/HDL Ratio 3.70 % 07/25/22 19:37 Serotonin Release Assay See scanned result 08/01/22 04:17 Procalcitonin 0.56 ng/mL (<0.15) 08/05/22 21:43 TSH 2.170 mlU/mL (0.270-4.200) 07/25/22 19:37 Free T4 1.18 ng/dL (0.76-1.46) 07/25/22 19:37 Urine Color Lin (Yellow) 08/05/22 11:00 Urine Turbidity Cloudy (Clear) 08/05/22 11:00 Specific [place] (Man) 1.017 (1.003-1.030) 08/05/22 11:00 Ur Protein (Man) 2+ mg/dL (Negative) 08/05/22 11:00 Ur Ketones (Man) Negative (Negative) 08/05/22 11:00 Ur Nitrite (Man) Negative (Negative) 08/05/22 11:00 Ur Reducing Substances Not Reportable 07/26/22 08:31 Urine Bilirubin (Man) Negative (Negative) 08/05/22 11:00 Urine Ictotest Not Reportable 08/05/22 11:00 Leukocyte Esterase (Man) Negative (Negative) 08/05/22 11:00 Urine WBC (Auto) 6.0 /HPF (0.0-6.0) 08/05/22 11:00 Urine RBC (Auto) 6.0 /HPF (0.0-6.0) 08/05/22 11:00 U Epithel Cells (Auto) 1.0 /HPF (0-13.0) 08/05/22 11:00 Urine Bacteria (Auto) 1+ /HPF (Negative) 08/05/22 11:00 Urine RBC (Manual) 4+ (Negative) 08/05/22 11:00 Ur Renal Epithelial Cell 3 /LPF 07/26/22 08:31 Uric Acid Crystals Few 08/05/22 11:00 Amorphous Crystals Few 08/05/22 11:00 Urine Mucus Few /HPF 08/05/22 11:00 Urine Creatinine 118.4 mg/dL (0.1-20.0) H 07/26/22 18:10 Protein/Creatinin Ratio 1.23 07/26/22 18:10 Urine Sodium 108 mmol/L 07/26/22 18:10 Urine Total Protein 146 mg/dL (5-11.8) H 07/26/22 18:10 Nasal Screen MRSA (PCR) Negative (Negative) 08/05/22 14:00 Heparin-induced Plt Ab Negative (Negative) 08/01/22 04:17 UF Heparin High Dose 0 % Release 08/01/22 04:17 SU UFH Low Dose 0.1 0 % Release 08/01/22 04:17 SU UFH Low Dose 0.5 0 % Release 08/01/22 04:17 SARS-CoV-2 (PCR) Negative (Negative) 08/10/22 10:20 Blood Type AB POSITIVE 08/10/22 23:20 Antibody Screen Negative 08/10/22 23:20 Crossmatch See Detail 08/10/22 23:20 Yañez/IV: Voiding Method Indwelling Catheter Active Medications - Current Medications Current Medications: Generic Name Dose Route Start Last Admin Trade Name Freq PRN Reason Stop Dose Admin Acetaminophen 650 mg 07/26/22 00:31 08/08/22 06:11 Acetaminophen 325 Mg Tab PO 650 mg Q4H PRN Administration Pain MILD(1-3)/Fever >100.5/LANTIGUA Acetaminophen 650 mg 07/26/22 02:04 Acetaminophen 650 Mg Rect Supp VT Q4H PRN Pain, Mild (1-3) Albuterol 2.5 mg 07/26/22 00:31 Albuterol 2.5 Mg/3 Ml Nebu IH Q3HRT PRN Shortness Of Breath Amiodarone HCl 200 mg 08/04/22 11:00 08/13/22 21:21 Amiodarone 200 Mg Tab FEEDTUBE 200 mg BID LIZZIE Administration Atorvastatin Calcium 40 mg 08/04/22 22:00 08/13/22 21:21 Atorvastatin 40 Mg Tab FEEDTUBE 40 mg QHS LIZZIE Administration Calcium Carbonate/Glycine 1,250 mg 08/09/22 10:00 08/13/22 10:05 Calcium Carbonate 1250 Mg/5 Ml Oral Liqd FEEDTUBE 1,250 mg BID LIZZIE Administration Dextrose 50 ml 07/27/22 09:25 08/04/22 06:03 Dextrose 50% In Water (25gm) 50 Ml Syringe IV 50 ml Q30MIN PRN Administration Hypoglycemia Protocol Famotidine 10 mg 07/28/22 10:00 08/13/22 21:21 Famotidine 10 Mg Tab FEEDTUBE 10 mg BID LIZZIE Administration Meropenem/Sodium Chloride 1 gram in 100 mls @ 100 mls/hr 08/06/22 10:00 08/13/22 17:24 Merrem/Ns 1 Gram/100 Ml IV 08/14/22 02:59 100 mls/hr Q8H LIZZIE Administration Protocol Phenylephrine HCl 50 mg/ 250 mls @ 7.47 mls/hr 08/10/22 18:45 Sodium Chloride IV TITR LIZZIE Protocol 0.5 MCG/KG/MIN Insulin Glargine 20 units 08/08/22 22:00 08/13/22 21:22 Insulin Glargine 100 Units/Ml SUB-Q 20 units QHS LIZZIE Administration Insulin Human Regular 0 units 07/27/22 12:00 08/13/22 17:27 Insulin Regular, Human 100 Units/1 Ml SUB-Q 3 units Q6H LIZZIE Administration Protocol Multi-Ingred Cream/Lotion/Oil/Oint 1 applic 07/27/22 03:17 08/12/22 09:11 Mineral Oil/Petrolatum, White Ophth Oint 3.5 Gm OU 1 applic PRN PRN Administration Dry Eye(s) Nitroglycerin 0.4 mg 07/26/22 00:31 Nitroglycerin 0.4 Mg Tab Subl SL Q5M PRN Chest Pain Ondansetron HCl 4 mg 07/26/22 00:31 Ondansetron 4 Mg/2 Ml Inj IV Q8H PRN Nausea And Vomiting Sodium Bicarbonate 650 mg 08/04/22 14:00 08/13/22 21:21 Sodium Bicarbonate 650 Mg Tab FEEDTUBE 650 mg TID LIZZIE Administration Sodium Chloride 10 ml 07/26/22 10:00 08/13/22 21:28 Sodium Chloride 0.9% 10 Ml Flush Syringe IV 10 ml BID LIZZIE Administration Sodium Chloride 10 ml 07/26/22 00:31 Sodium Chloride 0.9% 10 Ml Flush Syringe IV PRN PRN LINE FLUSH Nutrition/Malnutrition Assess - Dietary Evaluation Nutrition/Malnutrition Findings: Nutrition Notes Start: 07/26/22 10:25 Freq: Status: Active Protocol: Document 08/07/22 15:00 CM (Rec: 08/07/22 15:13 CM [id number]) Co-Sign 08/07/22 15:00 WW Nutrition Notes Initial or Follow up Brief Note Current Diagnosis Sepsis,Hypertension, Respiratory Failure,Stroke, Hyperlipidemia Other Pertinent Diagnosis s/p Cardiac Arrest, AMS Current Diet TF - Glucerna 45mL/hr Labs/Tests 08/07: K 3.4 Cl 107.8 BUN 21 Glu 216 Pertinent Medications 08/07: Atorvastatin Humulin Height 5 ft 5 in Weight 49.8 kg [place] Body Weight (kg) 61.81 BMI 18.2 Weight Status Underweight Subjective/Other Information RD follow-up per protocol. Pt currently receiving Glucerna @ 45mL/hr. RN reported loose stool 2x q day. No gastric residuals recorded. Pt continues ventilation via tracheostomy. Abdomen large, round, w/ BS+ per physical assessment. No contraindications to continue. GI Symptoms None Skin Integrity/Comment [place] 10 - breakdown / blisters Current % PO Other #2 Nutrition Diagnosis Underweight Diagnosis Progress(for reassessment Continues documentation) #1 Nutrition Diagnosis Inadequate oral intake Diagnosis Progress(for reassessment Continues documentation) Is patient on ventilator? Yes Is Patient Ambulatory and/or Out of Bed No REE-([facility]-confined to bed) 1398.456 Kcal/Kg value to use for calculation 31 Approximate Energy Requirements Using 1544 kcal/Kg Calculation Used for Recommendations Kcal/kg Additional Notes Pro needs 1.2-2.0g/k-100g /day Fluid needs per MD. Nutrition Intervention Nutrition Support: Change TF rate to 55mL/hr of Glucerna 1.2. Flush with 100mL q 4hrs. Kcal 1,584 Protein (gm) 79 Fluid (mL) 1,060 % RDI: 102%Kcal /100% AA Goal #1 TF tolerance Goal #2 TF to provide at least 75% energy and pro needs Follow-Up By: 08/14/22 Additional Comments Monitor TF administration, TF tolerance, nutrition-related labs, wt status.
[2022-08-13] MEDS: INSULIN GLARGINE 100 UNITS/ML SUB-Q SCH (21:22)
[2022-08-14] MEDS: INSULIN REGULAR, HUMAN 100 UNITS/1 ML SUB-Q SCH ×3 (00:13→12:39)
[2022-08-14] MEDS: MEROPENEM/NS 1 GRAM/100 ML 1 GRAM/100 ML BAG IV SCH (02:16)
[2022-08-14 05:16] LABS: Hematocrit 21.9 % (35.5-45.6); Hemoglobin 7.4 gm/dl (11.8-15.2); Mean Corpuscular HGB Conc 34 % (32-34); Mean Corpuscular Volume 88 fl (84-94); Platelet Count 149 K/mm3 (140-440); Red Cell Distribution Width 15.8 % (13.2-15.2)
[2022-08-14] MEDS: CALCIUM CARBONATE 1250 MG/5 ML ORAL LIQD FEEDTUBE SCH (09:06)
[2022-08-14] MEDS: SODIUM BICARBONATE 650 MG TAB FEEDTUBE SCH ×2 (09:06→15:07)
[2022-08-14] MEDS: FAMOTIDINE 10 MG TAB FEEDTUBE SCH (09:06)
[2022-08-14] MEDS: AMIODARONE 200 MG TAB FEEDTUBE SCH (09:07)
--- NOTE | 2022-08-14 10:54 | Gastroenterology Progress Note ---
Assessment and Plan 1. Rectal bleeding - no signs of recurrent active bleeding at this time. Last BM x1.5 days ago - CTA abdomen pelvis with no acute GI bleeding signs, bilateral DVT, inflammatory change involving rectosigmoid colon can be seen with proctitis or colitis. - Hemodynamically stable. - suspect 2/2 infectious colitis. Recommendation: -No plans for colonoscopy at this time. -Recommend supportive care. -Continue to monitor hemoglobin and transfuse as needed to maintain >7 Subjective Date of service: 08/14/22 Principal diagnosis: Hypernatremia, ARF Interval history: Pt seen and examined. Lying comfortably in bed. Per nurse, last BM 1.5 days ago and denies rectal bleeding. States that pt is being discharged to [facility] today. Objective - Constitutional Vitals: Temp Pulse Resp BP Pulse Ox 100.0 F H 95 H 28 H 124/79 100 08/14/22 07:27 08/14/22 10:00 08/14/22 10:00 08/14/22 10:00 08/14/22 10:00 - Gastrointestinal General gastrointestinal: Present: soft, non-tender, non-distended - Labs CBC & Chem 7: 08/14/22 04:23 08/11/22 04:52 Labs: Laboratory Results - last 24 hr 08/12/22 08/13/22 08/13/22 23:58 05:29 11:50 WBC RBC Hgb Hct MCV MCH MCHC RDW Plt Count POC Glucose 148 H 163 H 143 H 08/13/22 08/13/22 08/14/22 16:11 23:44 04:23 WBC 4.9 RBC 2.50 L Hgb 7.4 L Hct 21.9 L MCV 88 MCH 30 MCHC 34 RDW 15.8 H Plt Count 149 POC Glucose 169 H 170 H
--- NOTE | 2022-08-14 11:13 | Discharge Summary ---
Providers - Providers Date of Admission: 07/26/22 00:32 Date of discharge: 08/14/22 Attending physician: TOY LUDWIG MD 07/25/22 21:59 Consult to Physician [CONS] Urgent Comment: jenna/ kasi Consulting Provider: YAYA RAMOS Physician Instructions: Reason For Exam: ICU admit/status post cardiac arrest 07/26/22 Consult to Cardiac Rehabilitation [CONS] Routine Reason For Exam: Phase I 07/26/22 00:32 Consult to Cardiology [CONS] Routine Consulting Provider: JEFF FLORES Reason For Exam: Cardiac arrest Consult to Dietitian/Nutrition [CONS] Routine Physician Instructions: Reason For Exam: DKA Reason for Consult: Nutrition Recommendations Reason for Consult: Diet education 07/26/22 00:43 Consult to Physician [CONS] Routine Comment: spoke with the doctor/ kasi Consulting Provider: PAOLO PARR Physician Instructions: Reason For Exam: kasia 07/26/22 00:48 Consult to Physician [CONS] Routine Comment: noted/ kasi Consulting Provider: DOYLE KONG Physician Instructions: Reason For Exam: unresponsiveness 07/27/22 09:34 Consult to Dietitian/Nutrition [CONS] Routine Physician Instructions: Reason For Exam: Reason for Consult: Write/Manage Tube Feeding 07/30/22 08:22 Consult to Physician [CONS] Routine Comment: Consulting Provider: DEVAUGHN EASTMAN Physician Instructions: Reason For Exam: thrombocytopenia 07/31/22 11:28 Consult to Physician [CONS] Routine Comment: Consulting Provider: CLAYTON HANSEN Physician Instructions: Reason For Exam: Trach and PEG 08/05/22 11:25 Consult to Physician [CONS] Routine Comment: spoke with leandra us/maida Consulting Provider: MARKY PEACOCK Physician Instructions: Reason For Exam: Persistent fevers, PNA, on the vent 08/09/22 12:43 Consult to Physician [CONS] Routine Comment: Consulting Provider: VICENTE WHEAT Physician Instructions: Reason For Exam: GIB 08/12/22 07:48 Consult to Interventional Radiology [CONS] Routine Consulting Provider: BLAYNE CLAY Reason For Exam: GIB, DVTs unable to anticougulate Notified:: office Phone number called:: [phone] Was contact made?: Yes If yes, spoke with:: Mac Time called:: 15:14 Primary care physician: SAMANTHA PATEL Hospitalization Reason for admission: s/p Cardiac Arrest with ROSC Condition: Stable Hospital course: This is a 77-year-old male with DM, paroxysmal atrial fibrillation, HTN, CVA (2020) admitted s/p cardiac arrest with acute hypoxic respiratory failure and DKA Neuro: Acute metabolic encephalopathy, hepatic encephalopathy, ALEC ,subclinical status epilepticus ruled out, h/o CVA (2019) -Sluggish pupils, no cough/gag, periodic spontaneous respiration -Neurology consulted, appreciate recommendations -Initial CT head with no acute abnormality -EEG is Likely compatible with diffuse encephalopathy -Per neurology aim for euglycemia and permissive hypertension for now -Ammonia 64 -MRI brain shows diffuse diffusion abnormality involving cerebral and cerebellum compatible with diffuse hypoxia given the patient's history, interval evolving of left CHAINER infarct from 02/16/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 Cardiac: S/p cardiac arrest, A. fib RVR, h/o hypertension, paroxysmal atrial fibrillation, hyperlipidemia -Patient suffered cardiac arrest on 07/25 in the ED and then was noted to be in A. fib with RVR -Amiodarone PO -Cardiology consulted, appreciate recommendations -Blood pressure monitoring per protocol -S/p vasopressor support with Levophed and vasopressin -MAP goal greater than 65 -Echocardiogram shows EF 50 to 60%, no pericardial effusion -Lipitor Respiratory: Acute hypoxic respiratory failure -CCM consulted, appreciate recommendations -Intubated on 07/25 with a 8.00 ETT in the ED -08/02 s/p trach and peg exchange -A.m. vent settings: Assist-control rate 14, tidal volume 400, PEEP 6, FiO2 35% -See RT notes for titration -A.m. ABG and CXR noted -VAP bundle -SPO2 monitoring GI: Protein calorie malnutrition, r/o GIB -GI consulted, appreciate recommendation -NTR consult for tube feeding -08/02 peg exchange -PPI -Abdomen/pelvis CTA with showed no acute GI bleed, bilateral DVTs, inflammatory changes involving rectosigmoid colon can be seen with proctitis or colitis, incidental findings of bibasilar consolidation concerning for evolving pneumonia : Acute kidney injury likely secondary to vasomotor nephropathy (resolved) -S/p 5 L LR bolus -Nephrology consulted, appreciate recommendations -Serum creatinine 03/08/2020 was 1.3 -Monitor intake and output -Renally dose medications -Avoid nephrotoxic medications -FeNa 1.8% -FWF -Renal ultrasound noted -Trend BMP ID: Sepsis, Klebsiella pneumonia -Hypotension, acute kidney injury, acute respiratory failure, lactic acidosis -Antibiotic therapy merrem -MRSA PCR negative -s/p solu-cortef -f/u blood culture -Monitor WBC and temperature curve Endo: s/p DKA, h/o DM -Presented with anion gap of 21, glucose of 761, VBG 7.362 -s/p Insulin drip -Accu-Cheks q6hr -SSI -Long-acting insulin, titrate as needed -Hemaglobin A1C 12.3 Heme: Acute Anemia, acute bilateral DVTs -Noted on CTA abdomen/pelvis -Patient unable to tolerate anticoagulation in setting of active rectal bleeding -Vascular surgery consulted for possible IVC filter -HIT negative -Trend CBC -Transfuse hemoglobin less than 7 -S/p 2 units PRBC -SCDs to BLE while in bed History Interval history: This is a 77-year-old male who is longterm patient at [facility] with DM, paroxysmal atrial fibrillation, HTN, CVA (2020) presents the emergency department on 07/26 via EMS with hypoglycemia and unresponsiveness. In the emergency department patient was deciding 7% on room air and was placed on nonrebreather but sats have increased to greater than 81% and the patient was obtunded therefore ED physician decided to intubate the patient. Per documentation after intubation patient went into PEA arrest and ACLS was initiated and ROSC was achieved after approximately 13 minutes. Work-up in the emergency department revealed leukocytosis, hyponatremia 155, elevated BUN/creatinine at 3.5/74, anion gap metabolic acidosis and hyperglycemia 734. Patient was admitted to the hospital service with consults to cardiology, CCM and nephrology on DKA protocol on mechanical ventilation. Hospital course to date: 07/26: Patient is on any sedation, very sluggish pupillary response, no cough/gag noted, no seizure activity. Neurology recs repeat CT head without contrast or MRI brain without contrast when clinically stable. Patient also had a EEG completed today. Patient is currently maxed on Levophed and vasopressin. Given several LR boluses today. Antibiotics broadened and stress dose steroids added. 07/27: Weaning pressors, phosphorus repleted, SSI and long-acting insulin initiated, tube feeding initiated. Patient now has a hypoactive cough/gag. CT head pending. LR bolus. Thrombocytopenia noted. Cardiology would like to start heparin drip due to atrial fibrillation however would like neurology input prior to. 07/28: Patient remains off of vasopressors, patient had MRI today. Worsening renal function noted. Cardiology will hold off amiodarone due to thrombocytopenia. No acute events reported overnight. 07/29: I had an extensive conversation with son and at bedside to with the help of an packager and strapper through the photo editor line. Explained thoroughly of presentation to the ED from documentation, cardiac arrest, CT head and MRI brain findings. They are still electing to continue aggressive care and would like hospital assistance with getting a visa for youngest son to come to the [facility] from [place]. real estate operations manager is aware of request. Steroid taper started. CBC pending. Will be repleted. Hypernatremia improving. 07/30: LR bolus, renal function is improved, thrombocytopenia worse. Likely consult surgery for trach/peg as per family requests to continue care. No acute events overnight. 07/31: Patient's mentation is unchanged. Remains on low vent setting. D/w [facility] general surgery consulted for possible trach and PEG. Renal function is improving, still hypenatremic, continue FWF per Nephrology. K repleted, continue to - Monitor and replace electrolytes as needed. Patient remains in SR on the monitor, VSS. Amiodarone gtt transitioned to PO amio per Cardio. 08/01: Condition unchanged, remains stable on low vent setting. Renal function continue to improve with persistent hypernatremia, continue FWF per Nephro. General Surgery recommendations noted. D/w General surgery, plan for possible trach and PEG exchange tomorrow or . 08/02: Remains stable on low vent settings. NPO since after midnight for possible trach/PEG today by General Surgery. Patient remains hypernatremic and due to NPO status, FWF was held. Will initiated low dose D5W gtt for now. And also to prevent hypoglycemia while NPO, patient is on Lantus BID. Currently on steroids taper, will hold tonight does and reduce Lantus to Qhs starting tomorrow. Close monitoring of BG and electrolytes. Nephrology is also following. 08/03: S/p trach and PEG exchange. Remains stable on the vent with no complications. Tolerating TF and also Tolerated 2hrs of PSV trial this am. Continue to taper IV steroids, qhs Lantus adjusted to avoid hypoglycemia. Hypernatremia improved, continue FWF per Nephro. Possible LTAC placement, case management to arrange. 08/04: ABRAM overnight. Sodium normalized this morning, electrolytes repleted, continue to monitor and replace electrolytes as needed. Nephrology is also following. Hypoglycemic overnight, TF not yet at goal, will hold Lantus for now. Continue daily PSV trial as tolerated. Possible LTAC placement, case management to arrange. 08/05: Now with thick secretions orally and via ETT, with persistent fevers. This am CXR suggesting possible developing lower lobe PNA. VSS. Will panculture and initiate empiric IV abx- Cefepine. Check CRP and procal. Remove Yañez catheter and follow Yañez removal protocol. ID was also consulted for further recs. TF is now at goal, hyperglycemic today, will resume qhs Lantus. Hyponatremia resolved, FWF adjusted. 08/06: Remains stable on low vent settings. Still with low grade fevers, procal and repeat cultures pending. ID recommendations noted. C/f for possible allergic reaction vs skin infection due to persistent skin blisters. Cefepine switched to Merrem and Vanco. Check CBC with Diff, continue to follow up on cultures. 08/07: No acute events reported overnight, T-max today 102. 08/16: Patient was noted to have blood clots in stool overnight and Lovenox was discontinued but was restarted given stable H&H. CPAP trial today. Vancomycin discontinued. 08/09: Noted to be GI bleeding, anticoagulation stopped. GI consulted. No plans for scope. 08/10: No acute events reported overnight. repeat COVID-19 PCR negative 08/11: Patient had a CT abdomen/pelvis which showed DVTs however patient is GI bleeding still and unable to tolerate anticoagulation at this time. Transfer to longterm was canceled. Patient did receive 2 units PRBC today which were ordered yesterday. 08/12: DVTs noted but unable to tolerate coagulation in setting of recent GI bleeding with symptomatic anemia therefore IR consulted for possible IVC placement. No further GI bleeding noted by RN. No acute events reported overnight. 08/13: CPAP trial as tolerated, no acute events reported overnight. RN reports blood BMs overnight 08/14: Remains stable on the vent, no s/s of any active bleeding, H&H is stable. No plan for any endoscopy at this time per GI. Vascular Surgery recommendations noted, no plan for IVC filter at this time. Patient is stable for discharge to SNF today. PLan of care discussed with patient's family at the bedside. Disposition: [facility] Final Discharge Diagnosis (Prints w/discharge instructions): Acute Respiratory Failure s/p Trach and PEG. Metabolic Encephalopathy. S/p Cardiac Arrest with ROSC. Sepsis-Klebsiella pneumonia. Diabetes Mellitus with Hyperglycemia Time spent for discharge: 35 Core Measure Documentation - Palliative Care Palliative Care/ Comfort Measures: Not Applicable - Core Measures Any of the following diagnoses?: DVT/PE - VTE Discharge Requirements Deep Vein Thrombosis/Pulmonary Embolism Present on Admission: No Has pt received <5 days of overlap therapy or INR<2.0: No (AC held due to GI bleed) Anticoagulant overlap therapy prescribed at discharge: No Contraindication No Overlap Therapy order at DC: Medical Contraindication (GI bleed) Exam - Physical Exam Narrative exam: General appearance: Present: other (Trached, on the vent, and unresponsive) - EENT Eyes: Present: irregular pupil, mydriasis - Respiratory Respiratory effort: normal Respiratory: bilateral: rhonchi - Cardiovascular Rhythm: regular Heart Sounds: Present: S1 & S2 - Extremities Extremities: no ischemia, pulses intact, pulses symmetrical Extremity abnormal: edema - Peripheral Assessment Generalized Edema Type: Non-pitting Edema Degree: 2+ Capillary Refill: < 3 seconds Skin Temperature: Warm Peripheral Pulses: within normal limits - Abdominal General gastrointestinal: soft, non-distended, normal bowel sounds - Integumentary Integumentary: Present: warm, dry, other (RUE and LLE blisters/wounds) - Psychiatric Psychiatric: other (on the vent and unresponsive) - Neurologic Neurologic: other (On the vent and unresponsive) - Allied Health Allied health notes reviewed: nursing, case management - Constitutional Vitals: Temp Pulse Resp BP Pulse Ox 100.0 F H 95 H 28 H 124/79 100 08/14/22 07:27 08/14/22 10:00 08/14/22 10:00 08/14/22 10:08/14/22 10:00 Plan Activity: other (per facility) Diet: other (Enteral Nutrition) Wound: change dressing, per wound nurse instructions Follow up with: SMAANTHA PATEL MD [Primary Care Provider] - 7 Days
--- NOTE | 2022-08-14 11:36 | Vascular Lab Report ---
. DUPLEX DOPPLER LOWER EXTREMITY VEINS, BILATERAL INDICATION: eval for dvt. TECHNIQUE: Duplex doppler imaging was performed through the veins of both lower extremities using ve nous compression and other maneuvers. COMPARISON: No relevant prior imaging study available. FINDINGS: Right external iliac vein: Positive Right Common femoral vein: Positive. Right Superficial femoral vein: Negative. Right Popliteal vein: Negative. Right Calf veins: Negative. Left external iliac vein: Positive Left Common femoral vein: Positive. Left Superficial femoral vein: Positive. Left Popliteal vein: Positive. Left Calf veins: Positive. Additional findings: None. IMPRESSION: Positive for bilateral acute appearing DVTs as described. Signer Name: Robles Yanes Jr, MD Signed: 08/14/2022 11:31 AM Workstation Name: [id number]
--- NOTE | 2022-08-14 12:13 | Progress Note ---
Assessment and Plan 77 y/o male with cardiac arrest, intubated, not sedated with multisystem organ failure 08/14/22: Patient stable for transfer today. He is not a candidate for anticoagulation and placing an IVC filter at this stage does not improve his pr ognosis. Continue supportive care and daily PSV trials as tolerated. 08/13/22: Monitor HgB. Transfuse if less than 7. PSV trials daily as tolerated. Reviewed GI note from yesterday. Poor Prognosis. 08/12/22: Unable to anticoagulate. Transfuse if HgB is less than 7. Very very poor prognosis given this most recent series of events. 08/11/22: Stop prophylactic anticoagulation. Transfuse PRBC. Follow up with GI if they want CTA vs CT chest with contrast. Guarded prognosis. 08/10/22: ID following. Continue supportive care. 08/09/22: Still spiking temps. ID following with abx therapy. Await placement 08/08/22: Stopping Vanc. Merrem for 8 days. Hold on imaging of head right now. LFT's are ok. Guarded prognosis. Await placement. 08/07/22: Abx therapy per ID. Tracheal aspirate was respiratory kristin. Bld Cx pending. If continues to spike fevers, need to consider repeat imaging of head (CT vs MRI). Could check for alcalculous cholecysitis. Suggest sending LFT's tomorrow. STill awaiting placement. Overall prognosis is guarded to poor. 08/04/22: CXR in am. Will order sputum as per report, secretions have increased. Abx therapy has stopped. Trach site stable. await placement. If spikes again, needs blood, urine and UA. 08/03/22: Await placement. Continue daily PSV. PT consult. 08/01/22: Follow up surgery recs. Continue supportive care. 07/31/22: Supportive care. Surgery consult for trach and peg. Renal function continues to improve. 07/30/22: Continue supportive measures. Family wants aggressive measures despite MRI findings so needs consult to surgery for trach and peg. Will drop steroids down to 25q8 or 50q12 Sunday. Continue volume as renal function is improving. needs more free water if possible. 07/29/22: Drop steroids to 50q8 starting today. CBC not checked, need to evaluate Platelets. Need to correct electrolytes as well. Family is likely going to want trach and peg based on earlier conversations but awaiting more fam lisa. Given recent MRI results, prognosis is very poor. 07/28/22: Hold on Volume today. Drop steroids down to 50q8 starting tomorrow. Follow up MRI. EEG results still pending. Platelets still dropping but no evidence of bleeding. Continue abx therapy. Continue feeds. Prognosis is still guarded. 07/27/22: more volume again today. Echo showed normal EF. Wean pressors for MAPs >65, follow up EEg results. Hopeful to get head CT today. Platelets dropped today, not on heparin. Could be sepsis related. If head CT negative, may need to evaluate abdomen around peg. Will start trickle feeds today and transition of insulin drip. Prognosis is still guarded. 1. IVF resusciation with LR 2. Insulin drip and continue NPO state 3. Attempt to wean pressors for MAPs greater than 65 4. Monitor urine output 5. Broaden abx therapy given current clinical state 6. Follow up echo report 7. Agree with stress dose steroids 8. No sedation 9. EEG pending Overall prognosis is guarded to poor, especially given current clinical exam CCT 31 minutes. Subjective Date of service: 08/14/22 Principal diagnosis: Hypernatremia, ARF Interval history: No acute events. no further bleeding. Objective Vital Signs - 12hr 08/14/22 08/14/22 08/14/22 00:20 00:45 01:00 Temperature 100.6 F H Pulse Rate 92 H 91 H Pulse Rate [ From Monitor] Respiratory 9 L 19 Rate Blood Pressure 136/66 134/71 O2 Sat by Pulse 100 100 Oximetry O2 Sat by Pulse 100 Oximetry [ Assessment] 08/14/22 08/14/22 08/14/22 02:00 03:00 03:39 Temperature 98.9 F Pulse Rate 94 H 92 H Pulse Rate [ From Monitor] Respiratory 23 22 Rate Blood Pressure 135/70 139/71 O2 Sat by Pulse 100 100 Oximetry O2 Sat by Pulse Oximetry [ Assessment] 08/14/22 08/14/22 08/14/22 04:00 05:00 06:00 Temperature Pulse Rate 94 H 94 H 99 H Pulse Rate [ 91 H From Monitor] Respiratory 14 27 H 28 H Rate Blood Pressure 137/73 137/73 166/85 O2 Sat by Pulse 100 100 100 Oximetry O2 Sat by Pulse Oximetry [ Assessment] 08/14/22 08/14/22 08/14/22 07:00 07:27 08:00 Temperature 100.0 F H Pulse Rate 101 H 97 H Pulse Rate [ 99 H From Monitor] Respiratory 30 H 26 H Rate Blood Pressure 151/80 136/76 O2 Sat by Pulse 100 100 Oximetry O2 Sat by Pulse Oximetry [ Assessment] 08/14/22 08/14/22 08/14/22 08:35 09:00 09:15 Temperature Pulse Rate 97 H 104 H Pulse Rate [ From Monitor] Respiratory 23 27 H Rate Blood Pressure 136/76 124/79 O2 Sat by Pulse 99 100 Oximetry O2 Sat by Pulse 99 Oximetry [ Assessment] 08/14/22 08/14/22 08/14/22 10:00 10:30 11:09 Temperature Pulse Rate 95 H 96 H 97 H Pulse Rate [ From Monitor] Respiratory 28 H 36 H 22 Rate Blood Pressure 124/79 139/74 O2 Sat by Pulse 100 92 100 Oximetry O2 Sat by Pulse Oximetry [ Assessment] 08/14/22 08/14/22 11:30 11:31 Temperature 98.1 F Pulse Rate 101 H Pulse Rate [ From Monitor] Respiratory 24 Rate Blood Pressure 143/80 O2 Sat by Pulse 95 Oximetry O2 Sat by Pulse Oximetry [ Assessment] CBC and BMP: 08/14/22 04:23 08/11/22 04:52 ABG, PT/INR, D-dimer: ABG ABG pH 7.500 pH Units (7.350-7.450) H 08/03/22 03:35 ABG pCO2 26.7 mm Hg 08/03/22 03:35 ABG pO2 129.6 mm Hg (80.0-90.0) H 08/03/22 03:35 ABG O2 Saturation 98.7 % (95.0-99.0) 08/03/22 03:35 PT/INR, D-dimer PT 14.3 Sec. (12.2-14.9) 07/31/22 04:13 INR 0.97 (0.87-1.13) 07/31/22 04:13 Abnormal lab findings: Abnormal Labs 07/25/22 07/25/22 07/25/22 19:37 19:37 19:37 WBC 18.8 H RBC 6.31 H Hgb 18.8 H Hct 57.3 H MCV MCHC RDW Plt Count Lymph % (Auto) Lymph # (Auto) [place] # (Auto) 1.4 H Seg Neutrophils % 70.7 H Seg Neuts % (Manual) Lymphocytes % (Manual) Seg Neutrophils # 13.3 H Seg Neutrophils # Man Lymphocytes # (Manual) ABG pH ABG pO2 ABG HCO3 ABG O2 Saturation ABG Base Excess ABG Hemoglobin Oxyhemoglobin Sodium 149 H Potassium Chloride 110.3 H Carbon Dioxide 18 L BUN 73 H Creatinine 3.3 H Glucose 761 H* POC Glucose Hemoglobin A1c Lactic Acid Calcium 10.6 H Phosphorus Magnesium 3.10 H AST 63 H ALT 64 H Ammonia Troponin T 0.072 H C-Reactive Protein Total Protein 9.0 H Albumin Triglycerides 362 H LDL Cholesterol Direct 44 L HDL Cholesterol 34 L Urine Creatinine Urine Total Protein Crossmatch 07/25/22 07/25/22 07/25/22 19:37 21:08 22:10 WBC RBC Hgb Hct MCV MCHC RDW Plt Count Lymph % (Auto) Lymph # (Auto) [place] # (Auto) Seg Neutrophils % Seg Neuts % (Manual) Lymphocytes % (Manual) Seg Neutrophils # Seg Neutrophils # Man Lymphocytes # (Manual) ABG pH ABG pO2 ABG HCO3 ABG O2 Saturation ABG Base Excess ABG Hemoglobin Oxyhemoglobin Sodium 155 H Potassium Chloride 113.1 H Carbon Dioxide 14 L BUN 74 H Creatinine 3.5 H Glucose 734 H* POC Glucose Hemoglobin A1c Lactic Acid 12.70 H* Calcium Phosphorus Magnesium AST ALT Ammonia 64.0 H Troponin T C-Reactive Protein Total Protein Albumin Triglycerides LDL Cholesterol Direct HDL Cholesterol Urine Creatinine Urine Total Protein Crossmatch 07/25/22 07/25/22 07/26/22 22:20 23:29 00:13 WBC RBC Hgb Hct MCV MCHC RDW Plt Count Lymph % (Auto) Lymph # (Auto) [place] # (Auto) Seg Neutrophils % Seg Neuts % (Manual) Lymphocytes % (Manual) Seg Neutrophils # Seg Neutrophils # Man Lymphocytes # (Manual) ABG pH 7.342 L ABG pO2 318.2 H ABG HCO3 14.4 L ABG O2 Saturation 99.5 H ABG Base Excess -9.4 L ABG Hemoglobin Oxyhemoglobin Sodium 157 H Potassium 3.1 L D Chloride 114.0 H Carbon Dioxide 21 L D BUN 72 H Creatinine 3.7 H Glucose 615 H* POC Glucose > 600 H Hemoglobin A1c Lactic Acid Calcium Phosphorus Magnesium AST ALT Ammonia Troponin T C-Reactive Protein Total Protein Albumin Triglycerides LDL Cholesterol Direct HDL Cholesterol Urine Creatinine Urine Total Protein Crossmatch 07/26/22 07/26/22 07/26/22 00:13 00:38 00:39 WBC 21.4 H RBC 5.88 H Hgb 17.2 H Hct 55.0 H MCV MCHC 31 L RDW 16.0 H Plt Count Lymph % (Auto) Lymph # (Auto) [place] # (Auto) Seg Neutrophils % Seg Neuts % (Manual) 77.0 H Lymphocytes % (Manual) 13.0 L Seg Neutrophils # Seg Neutrophils # Man 16.5 H Lymphocytes # (Manual) ABG pH ABG pO2 ABG HCO3 ABG O2 Saturation ABG Base Excess ABG Hemoglobin Oxyhemoglobin Sodium Potassium Chloride Carbon Dioxide BUN Creatinine Glucose POC Glucose 517 H Hemoglobin A1c Lactic Acid 9.10 H* Calcium Phosphorus Magnesium AST ALT Ammonia Troponin T C-Reactive Protein Total Protein Albumin Triglycerides LDL Cholesterol Direct HDL Cholesterol Urine Creatinine Urine Total Protein Crossmatch 07/26/22 07/26/22 07/26/22 00:39 01:32 02:28 WBC RBC Hgb Hct MCV MCHC RDW Plt Count Lymph % (Auto) Lymph # (Auto) [place] # (Auto) Seg Neutrophils % Seg Neuts % (Manual) Lymphocytes % (Manual) Seg Neutrophils # Seg Neutrophils # Man Lymphocytes # (Manual) ABG pH ABG pO2 ABG HCO3 ABG O2 Saturation ABG Base Excess ABG Hemoglobin Oxyhemoglobin Sodium Potassium Chloride Carbon Dioxide BUN Creatinine Glucose POC Glucose 460 H 237 H Hemoglobin A1c Lactic Acid Calcium Phosphorus 1.20 L D Magnesium 4.10 H AST ALT Ammonia Troponin T C-Reactive Protein Total Protein Albumin Triglycerides LDL Cholesterol Direct HDL Cholesterol Urine Creatinine Urine Total Protein Crossmatch 07/26/22 07/26/22 07/26/22 03:03 03:07 04:11 WBC RBC Hgb Hct MCV MCHC RDW Plt Count Lymph % (Auto) Lymph # (Auto) [place] # (Auto) Seg Neutrophils % Seg Neuts % (Manual) Lymphocytes % (Manual) Seg Neutrophils # Seg Neutrophils # Man Lymphocytes # (Manual) ABG pH ABG pO2 ABG HCO3 ABG O2 Saturation ABG Base Excess ABG Hemoglobin Oxyhemoglobin Sodium Potassium Chloride Carbon Dioxide BUN Creatinine Glucose POC Glucose 433 H 370 H 338 H Hemoglobin A1c Lactic Acid Calcium Phosphorus Magnesium AST ALT Ammonia Troponin T C-Reactive Protein Total Protein Albumin Triglycerides LDL Cholesterol Direct HDL Cholesterol Urine Creatinine Urine Total Protein Crossmatch 07/26/22 07/26/22 07/26/22 04:35 04:35 04:40 WBC RBC Hgb Hct MCV MCHC RDW Plt Count Lymph % (Auto) Lymph # (Auto) [place] # (Auto) Seg Neutrophils % Seg Neuts % (Manual) Lymphocytes % (Manual) Seg Neutrophils # Seg Neutrophils # Man Lymphocytes # (Manual) ABG pH 7.301 L ABG pO2 178.2 H ABG HCO3 11.0 L ABG O2 Saturation 99.1 H ABG Base Excess -13.3 L ABG Hemoglobin Oxyhemoglobin Sodium 162 H* Potassium 3.0 L Chloride 124.8 H Carbon Dioxide 18 L BUN 69 H Creatinine 3.9 H Glucose 385 H POC Glucose Hemoglobin A1c Lactic Acid 8.20 H* Calcium 7.8 L Phosphorus Magnesium AST ALT Ammonia Troponin T C-Reactive Protein Total Protein Albumin Triglycerides LDL Cholesterol Direct HDL Cholesterol Urine Creatinine Urine Total Protein Crossmatch 07/26/22 07/26/22 07/26/22 05:01 06:14 06:52 WBC RBC Hgb Hct MCV MCHC RDW Plt Count Lymph % (Auto) Lymph # (Auto) [place] # (Auto) Seg Neutrophils % Seg Neuts % (Manual) Lymphocytes % (Manual) Seg Neutrophils # Seg Neutrophils # Man Lymphocytes # (Manual) ABG pH ABG pO2 ABG HCO3 ABG O2 Saturation ABG Base Excess ABG Hemoglobin Oxyhemoglobin Sodium Potassium Chloride Carbon Dioxide BUN Creatinine Glucose POC Glucose 347 H 300 H 278 H Hemoglobin A1c Lactic Acid Calcium Phosphorus Magnesium AST ALT Ammonia Troponin T C-Reactive Protein Total Protein Albumin Triglycerides LDL Cholesterol Direct HDL Cholesterol Urine Creatinine Urine Total Protein Crossmatch 07/26/22 07/26/22 07/26/22 07:59 08:58 10:04 WBC RBC Hgb Hct MCV MCHC RDW Plt Count Lymph % (Auto) Lymph # (Auto) [place] # (Auto) Seg Neutrophils % Seg Neuts % (Manual) Lymphocytes % (Manual) Seg Neutrophils # Seg Neutrophils # Man Lymphocytes # (Manual) ABG pH ABG pO2 ABG HCO3 ABG O2 Saturation ABG Base Excess ABG Hemoglobin Oxyhemoglobin Sodium Potassium Chloride Carbon Dioxide BUN Creatinine Glucose POC Glucose 269 H 277 H 244 H Hemoglobin A1c Lactic Acid Calcium Phosphorus Magnesium AST ALT Ammonia Troponin T C-Reactive Protein Total Protein Albumin Triglycerides LDL Cholesterol Direct HDL Cholesterol Urine Creatinine Urine Total Protein Crossmatch 07/26/22 07/26/22 07/26/22 11:03 11:53 13:08 WBC RBC Hgb Hct MCV MCHC RDW Plt Count Lymph % (Auto) Lymph # (Auto) [place] # (Auto) Seg Neutrophils % Seg Neuts % (Manual) Lymphocytes % (Manual) Seg Neutrophils # Seg Neutrophils # Man Lymphocytes # (Manual) ABG pH ABG pO2 ABG HCO3 ABG O2 Saturation ABG Base Excess ABG Hemoglobin Oxyhemoglobin Sodium Potassium Chloride Carbon Dioxide BUN Creatinine Glucose POC Glucose 253 H 213 H 194 H Hemoglobin A1c Lactic Acid Calcium Phosphorus Magnesium AST ALT Ammonia Troponin T C-Reactive Protein Total Protein Albumin Triglycerides LDL Cholesterol Direct HDL Cholesterol Urine Creatinine Urine Total Protein Crossmatch 07/26/22 07/26/22 07/26/22 14:24 14:56 14:57 WBC RBC Hgb Hct MCV MCHC RDW Plt Count Lymph % (Auto) Lymph # (Auto) [place] # (Auto) Seg Neutrophils % Seg Neuts % (Manual) Lymphocytes % (Manual) Seg Neutrophils # Seg Neutrophils # Man Lymphocytes # (Manual) ABG pH ABG pO2 ABG HCO3 ABG O2 Saturation ABG Base Excess ABG Hemoglobin Oxyhemoglobin Sodium Potassium Chloride Carbon Dioxide BUN Creatinine Glucose POC Glucose 185 H 236 H 207 H Hemoglobin A1c Lactic Acid Calcium Phosphorus Magnesium AST ALT Ammonia Troponin T C-Reactive Protein Total Protein Albumin Triglycerides LDL Cholesterol Direct HDL Cholesterol Urine Creatinine Urine Total Protein Crossmatch 07/26/22 07/26/22 07/26/22 15:36 15:36 15:36 WBC RBC Hgb Hct MCV MCHC RDW Plt Count Lymph % (Auto) Lymph # (Auto) [place] # (Auto) Seg Neutrophils % Seg Neuts % (Manual) Lymphocytes % (Manual) Seg Neutrophils # Seg Neutrophils # Man Lymphocytes # (Manual) ABG pH ABG pO2 ABG HCO3 ABG O2 Saturation ABG Base Excess ABG Hemoglobin Oxyhemoglobin Sodium 160 H Potassium Chloride 126.2 H Carbon Dioxide 18 L BUN 59 H Creatinine 3.2 H Glucose 227 H POC Glucose Hemoglobin A1c Lactic Acid 9.70 H* Calcium 7.1 L Phosphorus Magnesium AST ALT Ammonia Troponin T 0.049 H D C-Reactive Protein Total Protein Albumin Triglycerides LDL Cholesterol Direct HDL Cholesterol Urine Creatinine Urine Total Protein Crossmatch 07/26/22 07/26/22 07/26/22 15:57 16:32 17:04 WBC RBC Hgb Hct MCV MCHC RDW Plt Count Lymph % (Auto) Lymph # (Auto) [place] # (Auto) Seg Neutrophils % Seg Neuts % (Manual) Lymphocytes % (Manual) Seg Neutrophils # Seg Neutrophils # Man Lymphocytes # (Manual) ABG pH ABG pO2 ABG HCO3 ABG O2 Saturation ABG Base Excess ABG Hemoglobin Oxyhemoglobin Sodium Potassium Chloride Carbon Dioxide BUN Creatinine Glucose POC Glucose 207 H 189 H 219 H Hemoglobin A1c Lactic Acid Calcium Phosphorus Magnesium AST ALT Ammonia Troponin T C-Reactive Protein Total Protein Albumin Triglycerides LDL Cholesterol Direct HDL Cholesterol Urine Creatinine Urine Total Protein Crossmatch 07/26/22 07/26/22 07/26/22 18:00 18:10 18:52 WBC RBC Hgb Hct MCV MCHC RDW Plt Count Lymph % (Auto) Lymph # (Auto) [place] # (Auto) Seg Neutrophils % Seg Neuts % (Manual) Lymphocytes % (Manual) Seg Neutrophils # Seg Neutrophils # Man Lymphocytes # (Manual) ABG pH ABG pO2 ABG HCO3 ABG O2 Saturation ABG Base Excess ABG Hemoglobin Oxyhemoglobin Sodium Potassium Chloride Carbon Dioxide BUN Creatinine Glucose POC Glucose 197 H 194 H Hemoglobin A1c Lactic Acid Calcium Phosphorus Magnesium AST ALT Ammonia Troponin T C-Reactive Protein Total Protein Albumin Triglycerides LDL Cholesterol Direct HDL Cholesterol Urine Creatinine 118.4 H Urine Total Protein 146 H Crossmatch 07/26/22 07/26/22 07/26/22 20:47 21:30 21:51 WBC RBC Hgb Hct MCV MCHC RDW Plt Count Lymph % (Auto) Lymph # (Auto) [place] # (Auto) Seg Neutrophils % Seg Neuts % (Manual) Lymphocytes % (Manual) Seg Neutrophils # Seg Neutrophils # Man Lymphocytes # (Manual) ABG pH ABG pO2 ABG HCO3 ABG O2 Saturation ABG Base Excess ABG Hemoglobin Oxyhemoglobin Sodium 155 H Potassium Chloride 123.5 H Carbon Dioxide 16 L BUN 53 H Creatinine 2.9 H Glucose 185 H POC Glucose 134 H 124 H Hemoglobin A1c Lactic Acid Calcium 7.0 L Phosphorus Magnesium AST ALT Ammonia Troponin T C-Reactive Protein Total Protein Albumin Triglycerides LDL Cholesterol Direct HDL Cholesterol Urine Creatinine Urine Total Protein Crossmatch 07/26/22 07/26/22 07/27/22 22:47 23:52 00:45 WBC RBC Hgb Hct MCV MCHC RDW Plt Count Lymph % (Auto) Lymph # (Auto) [place] # (Auto) Seg Neutrophils % Seg Neuts % (Manual) Lymphocytes % (Manual) Seg Neutrophils # Seg Neutrophils # Man Lymphocytes # (Manual) ABG pH ABG pO2 ABG HCO3 ABG O2 Saturation ABG Base Excess ABG Hemoglobin Oxyhemoglobin Sodium 155 H Potassium Chloride 124.2 H Carbon Dioxide 19 L BUN 53 H Creatinine 2.5 H Glucose 168 H POC Glucose 138 H 150 H Hemoglobin A1c Lactic Acid Calcium 6.7 L Phosphorus Magnesium AST ALT Ammonia Troponin T C-Reactive Protein Total Protein Albumin Triglycerides LDL Cholesterol Direct HDL Cholesterol Urine Creatinine Urine Total Protein Crossmatch 07/27/22 07/27/22 07/27/22 00:58 02:45 03:50 WBC 15.4 H RBC Hgb Hct MCV MCHC RDW 15.3 H Plt Count 60 L Lymph % (Auto) Lymph # (Auto) [place] # (Auto) Seg Neutrophils % Seg Neuts % (Manual) 78.0 H Lymphocytes % (Manual) 3.0 L Seg Neutrophils # Seg Neutrophils # Man 12.0 H Lymphocytes # (Manual) 0.5 L ABG pH ABG pO2 ABG HCO3 ABG O2 Saturation ABG Base Excess ABG Hemoglobin Oxyhemoglobin Sodium Potassium Chloride Carbon Dioxide BUN Creatinine Glucose POC Glucose 153 H 150 H Hemoglobin A1c Lactic Acid Calcium Phosphorus Magnesium AST ALT Ammonia Troponin T C-Reactive Protein Total Protein Albumin Triglycerides LDL Cholesterol Direct HDL Cholesterol Urine Creatinine Urine Total Protein Crossmatch 07/27/22 07/27/22 07/27/22 03:50 03:55 04:57 WBC RBC Hgb Hct MCV MCHC RDW Plt Count Lymph % (Auto) Lymph # (Auto) [place] # (Auto) Seg Neutrophils % Seg Neuts % (Manual) Lymphocytes % (Manual) Seg Neutrophils # Seg Neutrophils # Man Lymphocytes # (Manual) ABG pH ABG pO2 110.1 H ABG HCO3 13.3 L ABG O2 Saturation ABG Base Excess -9.0 L ABG Hemoglobin 13.1 L Oxyhemoglobin Sodium 154 H Potassium Chloride 123.0 H Carbon Dioxide 19 L BUN 55 H Creatinine 2.8 H Glucose 153 H POC Glucose 112 H Hemoglobin A1c Lactic Acid Calcium 6.8 L Phosphorus 1.30 L Magnesium AST 64 H ALT Ammonia Troponin T C-Reactive Protein Total Protein 4.1 L D Albumin 2.1 L Triglycerides LDL Cholesterol Direct HDL Cholesterol Urine Creatinine Urine Total Protein Crossmatch 07/27/22 07/27/22 07/27/22 08:22 09:30 10:49 WBC RBC Hgb Hct MCV MCHC RDW Plt Count Lymph % (Auto) Lymph # (Auto) [place] # (Auto) Seg Neutrophils % Seg Neuts % (Manual) Lymphocytes % (Manual) Seg Neutrophils # Seg Neutrophils # Man Lymphocytes # (Manual) ABG pH ABG pO2 ABG HCO3 ABG O2 Saturation ABG Base Excess ABG Hemoglobin Oxyhemoglobin Sodium Potassium Chloride Carbon Dioxide BUN Creatinine Glucose POC Glucose 146 H 153 H 163 H Hemoglobin A1c Lactic Acid Calcium Phosphorus Magnesium AST ALT Ammonia Troponin T C-Reactive Protein Total Protein Albumin Triglycerides LDL Cholesterol Direct HDL Cholesterol Urine Creatinine Urine Total Protein Crossmatch 07/27/22 07/27/22 07/27/22 12:13 12:44 17:17 WBC RBC Hgb Hct MCV MCHC RDW Plt Count Lymph % (Auto) Lymph # (Auto) [place] # (Auto) Seg Neutrophils % Seg Neuts % (Manual) Lymphocytes % (Manual) Seg Neutrophils # Seg Neutrophils # Man Lymphocytes # (Manual) ABG pH ABG pO2 ABG HCO3 ABG O2 Saturation ABG Base Excess ABG Hemoglobin Oxyhemoglobin Sodium Potassium Chloride Carbon Dioxide BUN Creatinine Glucose POC Glucose 190 H 287 H Hemoglobin A1c 12.3 H Lactic Acid Calcium Phosphorus Magnesium AST ALT Ammonia Troponin T C-Reactive Protein Total Protein Albumin Triglycerides LDL Cholesterol Direct HDL Cholesterol Urine Creatinine Urine Total Protein Crossmatch 07/28/22 07/28/22 07/28/22 00:22 03:58 04:05 WBC RBC Hgb Hct MCV MCHC RDW Plt Count Lymph % (Auto) Lymph # (Auto) [place] # (Auto) Seg Neutrophils % Seg Neuts % (Manual) Lymphocytes % (Manual) Seg Neutrophils # Seg Neutrophils # Man Lymphocytes # (Manual) ABG pH ABG pO2 171.2 H ABG HCO3 12.3 L ABG O2 Saturation 99.2 H ABG Base Excess -9.7 L ABG Hemoglobin 10.9 L Oxyhemoglobin Sodium 148 H Potassium Chloride 117.0 H Carbon Dioxide 16 L BUN 74 H Creatinine 3.2 H Glucose 471 H POC Glucose 379 H Hemoglobin A1c Lactic Acid Calcium 6.2 L Phosphorus Magnesium AST ALT Ammonia Troponin T C-Reactive Protein Total Protein Albumin Triglycerides LDL Cholesterol Direct HDL Cholesterol Urine Creatinine Urine Total Protein Crossmatch 07/28/22 07/28/22 07/28/22 04:05 05:36 12:50 WBC 13.9 H RBC Hgb 11.2 L Hct MCV MCHC 31 L RDW 15.9 H Plt Count 48 L Lymph % (Auto) Lymph # (Auto) [place] # (Auto) Seg Neutrophils % Seg Neuts % (Manual) Lymphocytes % (Manual) Seg Neutrophils # Seg Neutrophils # Man Lymphocytes # (Manual) ABG pH ABG pO2 ABG HCO3 ABG O2 Saturation ABG Base Excess ABG Hemoglobin Oxyhemoglobin Sodium Potassium Chloride Carbon Dioxide BUN Creatinine Glucose POC Glucose 390 H 399 H Hemoglobin A1c Lactic Acid Calcium Phosphorus Magnesium AST ALT Ammonia Troponin T C-Reactive Protein Total Protein Albumin Triglycerides LDL Cholesterol Direct HDL Cholesterol Urine Creatinine Urine Total Protein Crossmatch 07/28/22 07/28/22 07/28/22 17:27 18:16 23:31 WBC RBC Hgb Hct MCV MCHC RDW Plt Count Lymph % (Auto) Lymph # (Auto) [place] # (Auto) Seg Neutrophils % Seg Neuts % (Manual) Lymphocytes % (Manual) Seg Neutrophils # Seg Neutrophils # Man Lymphocytes # (Manual) ABG pH ABG pO2 ABG HCO3 ABG O2 Saturation ABG Base Excess ABG Hemoglobin Oxyhemoglobin Sodium Potassium Chloride Carbon Dioxide BUN Creatinine Glucose POC Glucose 434 H 331 H Hemoglobin A1c Lactic Acid Calcium Phosphorus 2.00 L D Magnesium AST ALT Ammonia Troponin T C-Reactive Protein Total Protein Albumin Triglycerides LDL Cholesterol Direct HDL Cholesterol Urine Creatinine Urine Total Protein Crossmatch 07/29/22 07/29/22 07/29/22 04:47 05:30 06:10 WBC RBC Hgb Hct MCV MCHC RDW Plt Count Lymph % (Auto) Lymph # (Auto) [place] # (Auto) Seg Neutrophils % Seg Neuts % (Manual) Lymphocytes % (Manual) Seg Neutrophils # Seg Neutrophils # Man Lymphocytes # (Manual) ABG pH 7.498 H ABG pO2 166.4 H ABG HCO3 16.2 L ABG O2 Saturation 99.1 H ABG Base Excess -5.4 L ABG Hemoglobin 10.7 L Oxyhemoglobin Sodium 151 H Potassium 3.5 L D Chloride 120.4 H Carbon Dioxide 17 L BUN 80 H Creatinine 2.8 H Glucose 303 H POC Glucose 261 H Hemoglobin A1c Lactic Acid Calcium 6.9 L Phosphorus Magnesium AST ALT Ammonia Troponin T C-Reactive Protein Total Protein Albumin Triglycerides LDL Cholesterol Direct HDL Cholesterol Urine Creatinine Urine Total Protein Crossmatch 07/29/22 07/29/22 07/29/22 09:18 12:31 13:40 WBC 16.0 H RBC Hgb Hct MCV 96 H MCHC 30 L RDW 17.6 H Plt Count 84 L Lymph % (Auto) Lymph # (Auto) [place] # (Auto) Seg Neutrophils % Seg Neuts % (Manual) Lymphocytes % (Manual) Seg Neutrophils # Seg Neutrophils # Man Lymphocytes # (Manual) ABG pH ABG pO2 ABG HCO3 ABG O2 Saturation ABG Base Excess ABG Hemoglobin Oxyhemoglobin Sodium Potassium Chloride Carbon Dioxide BUN Creatinine Glucose POC Glucose 287 H 291 H Hemoglobin A1c Lactic Acid Calcium Phosphorus Magnesium AST ALT Ammonia Troponin T C-Reactive Protein Total Protein Albumin Triglycerides LDL Cholesterol Direct HDL Cholesterol Urine Creatinine Urine Total Protein Crossmatch 07/29/22 07/29/22 07/30/22 17:19 23:57 04:25 WBC RBC Hgb Hct MCV MCHC RDW Plt Count Lymph % (Auto) Lymph # (Auto) [place] # (Auto) Seg Neutrophils % Seg Neuts % (Manual) Lymphocytes % (Manual) Seg Neutrophils # Seg Neutrophils # Man Lymphocytes # (Manual) ABG pH 7.461 H ABG pO2 123.0 H ABG HCO3 18.6 L ABG O2 Saturation ABG Base Excess -4.1 L ABG Hemoglobin 10.8 L Oxyhemoglobin Sodium Potassium Chloride Carbon Dioxide BUN Creatinine Glucose POC Glucose 272 H 205 H Hemoglobin A1c Lactic Acid Calcium Phosphorus Magnesium AST ALT Ammonia Troponin T C-Reactive Protein Total Protein Albumin Triglycerides LDL Cholesterol Direct HDL Cholesterol Urine Creatinine Urine Total Protein Crossmatch 07/30/22 07/30/22 07/30/22 04:42 04:42 05:17 WBC RBC Hgb 11.1 L Hct 33.1 L D MCV MCHC RDW 16.0 H Plt Count 34 L Lymph % (Auto) Lymph # (Auto) [place] # (Auto) Seg Neutrophils % Seg Neuts % (Manual) Lymphocytes % (Manual) Seg Neutrophils # Seg Neutrophils # Man Lymphocytes # (Manual) ABG pH ABG pO2 ABG HCO3 ABG O2 Saturation ABG Base Excess ABG Hemoglobin Oxyhemoglobin Sodium 148 H Potassium 3.2 L Chloride 116.7 H Carbon Dioxide 18 L BUN 69 H Creatinine 2.0 H Glucose 197 H POC Glucose 185 H Hemoglobin A1c Lactic Acid Calcium 6.8 L Phosphorus 1.70 L Magnesium AST ALT Ammonia Troponin T C-Reactive Protein Total Protein Albumin Triglycerides LDL Cholesterol Direct HDL Cholesterol Urine Creatinine Urine Total Protein Crossmatch 07/30/22 07/30/22 07/30/22 11:41 16:14 23:07 WBC RBC Hgb Hct MCV MCHC RDW Plt Count Lymph % (Auto) Lymph # (Auto) [place] # (Auto) Seg Neutrophils % Seg Neuts % (Manual) Lymphocytes % (Manual) Seg Neutrophils # Seg Neutrophils # Man Lymphocytes # (Manual) ABG pH ABG pO2 ABG HCO3 ABG O2 Saturation ABG Base Excess ABG Hemoglobin Oxyhemoglobin Sodium Potassium Chloride Carbon Dioxide BUN Creatinine Glucose POC Glucose 199 H 173 H 159 H Hemoglobin A1c Lactic Acid Calcium Phosphorus Magnesium AST ALT Ammonia Troponin T C-Reactive Protein Total Protein Albumin Triglycerides LDL Cholesterol Direct HDL Cholesterol Urine Creatinine Urine Total Protein Crossmatch 07/31/22 07/31/22 07/31/22 03:25 04:00 04:13 WBC RBC Hgb 10.5 L Hct 32.8 L MCV MCHC RDW 15.3 H Plt Count 55 L Lymph % (Auto) Lymph # (Auto) [place] # (Auto) Seg Neutrophils % Seg Neuts % (Manual) Lymphocytes % (Manual) Seg Neutrophils # Seg Neutrophils # Man Lymphocytes # (Manual) ABG pH 7.513 H ABG pO2 64.1 L ABG HCO3 ABG O2 Saturation ABG Base Excess ABG Hemoglobin 10.5 L Oxyhemoglobin 93.8 L Sodium 146 H Potassium 3.4 L Chloride 112.5 H Carbon Dioxide 21 L BUN 53 H Creatinine 1.6 H Glucose 151 H POC Glucose Hemoglobin A1c Lactic Acid Calcium 6.4 L Phosphorus Magnesium AST ALT Ammonia Troponin T C-Reactive Protein Total Protein Albumin Triglycerides LDL Cholesterol Direct HDL Cholesterol Urine Creatinine Urine Total Protein Crossmatch 07/31/22 07/31/22 07/31/22 05:39 11:08 16:11 WBC RBC Hgb Hct MCV MCHC RDW Plt Count Lymph % (Auto) Lymph # (Auto) [place] # (Auto) Seg Neutrophils % Seg Neuts % (Manual) Lymphocytes % (Manual) Seg Neutrophils # Seg Neutrophils # Man Lymphocytes # (Manual) ABG pH ABG pO2 ABG HCO3 ABG O2 Saturation ABG Base Excess ABG Hemoglobin Oxyhemoglobin Sodium Potassium Chloride Carbon Dioxide BUN Creatinine Glucose POC Glucose 155 H 132 H 150 H Hemoglobin A1c Lactic Acid Calcium Phosphorus Magnesium AST ALT Ammonia Troponin T C-Reactive Protein Total Protein Albumin Triglycerides LDL Cholesterol Direct HDL Cholesterol Urine Creatinine Urine Total Protein Crossmatch 07/31/22 08/01/22 08/01/22 23:48 04:17 04:17 WBC RBC 3.62 L Hgb 10.6 L Hct 31.8 L MCV MCHC RDW 15.7 H Plt Count 90 L Lymph % (Auto) Lymph # (Auto) [place] # (Auto) Seg Neutrophils % Seg Neuts % (Manual) Lymphocytes % (Manual) Seg Neutrophils # Seg Neutrophils # Man Lymphocytes # (Manual) ABG pH ABG pO2 ABG HCO3 ABG O2 Saturation ABG Base Excess ABG Hemoglobin Oxyhemoglobin Sodium 147 H Potassium 3.3 L Chloride 113.7 H Carbon Dioxide BUN 46 H Creatinine Glucose 141 H POC Glucose 133 H Hemoglobin A1c Lactic Acid Calcium 6.0 L Phosphorus 2.00 L Magnesium 1.50 L AST ALT Ammonia Troponin T C-Reactive Protein Total Protein Albumin Triglycerides LDL Cholesterol Direct HDL Cholesterol Urine Creatinine Urine Total Protein Crossmatch 08/01/22 08/01/22 08/01/22 05:46 11:17 17:44 WBC RBC Hgb Hct MCV MCHC RDW Plt Count Lymph % (Auto) Lymph # (Auto) [place] # (Auto) Seg Neutrophils % Seg Neuts % (Manual) Lymphocytes % (Manual) Seg Neutrophils # Seg Neutrophils # Man Lymphocytes # (Manual) ABG pH ABG pO2 ABG HCO3 ABG O2 Saturation ABG Base Excess ABG Hemoglobin Oxyhemoglobin Sodium Potassium Chloride Carbon Dioxide BUN Creatinine Glucose POC Glucose 116 H 190 H 179 H Hemoglobin A1c Lactic Acid Calcium Phosphorus Magnesium AST ALT Ammonia Troponin T C-Reactive Protein Total Protein Albumin Triglycerides LDL Cholesterol Direct HDL Cholesterol Urine Creatinine Urine Total Protein Crossmatch 08/01/22 08/02/22 08/02/22 23:34 04:48 04:48 WBC RBC 3.61 L Hgb 10.2 L Hct 31.9 L MCV MCHC RDW 15.8 H Plt Count 130 L Lymph % (Auto) Lymph # (Auto) [place] # (Auto) Seg Neutrophils % Seg Neuts % (Manual) Lymphocytes % (Manual) Seg Neutrophils # Seg Neutrophils # Man Lymphocytes # (Manual) ABG pH ABG pO2 ABG HCO3 ABG O2 Saturation ABG Base Excess ABG Hemoglobin Oxyhemoglobin Sodium 148 H Potassium 3.4 L Chloride 113.1 H Carbon Dioxide 16 L BUN 45 H Creatinine Glucose 213 H POC Glucose 193 H Hemoglobin A1c Lactic Acid Calcium 5.9 L* Phosphorus 2.30 L Magnesium AST ALT Ammonia Troponin T C-Reactive Protein Total Protein Albumin Triglycerides LDL Cholesterol Direct HDL Cholesterol Urine Creatinine Urine Total Protein Crossmatch 08/02/22 08/02/22 08/02/22 05:38 23:04 23:30 WBC RBC Hgb Hct MCV MCHC RDW Plt Count Lymph % (Auto) Lymph # (Auto) [place] # (Auto) Seg Neutrophils % Seg Neuts % (Manual) Lymphocytes % (Manual) Seg Neutrophils # Seg Neutrophils # Man Lymphocytes # (Manual) ABG pH ABG pO2 ABG HCO3 ABG O2 Saturation ABG Base Excess ABG Hemoglobin Oxyhemoglobin Sodium Potassium Chloride Carbon Dioxide BUN Creatinine Glucose POC Glucose 193 H 65 L 111 H Hemoglobin A1c Lactic Acid Calcium Phosphorus Magnesium AST ALT Ammonia Troponin T C-Reactive Protein Total Protein Albumin Triglycerides LDL Cholesterol Direct HDL Cholesterol Urine Creatinine Urine Total Protein Crossmatch 08/03/22 08/03/22 08/03/22 03:35 04:40 04:40 WBC 12.7 H RBC 3.36 L Hgb 9.5 L Hct 29.8 L MCV MCHC RDW 15.7 H Plt Count Lymph % (Auto) Lymph # (Auto) [place] # (Auto) Seg Neutrophils % Seg Neuts % (Manual) Lymphocytes % (Manual) Seg Neutrophils # Seg Neutrophils # Man Lymphocytes # (Manual) ABG pH 7.500 H ABG pO2 129.6 H ABG HCO3 ABG O2 Saturation ABG Base Excess ABG Hemoglobin 9.7 L Oxyhemoglobin Sodium Potassium 3.3 L Chloride 107.9 H Carbon Dioxide 21 L BUN 37 H Creatinine Glucose 111 H POC Glucose Hemoglobin A1c Lactic Acid Calcium 5.5 L* Phosphorus Magnesium 1.60 L AST ALT Ammonia Troponin T C-Reactive Protein Total Protein Albumin Triglycerides LDL Cholesterol Direct HDL Cholesterol Urine Creatinine Urine Total Protein Crossmatch 08/03/22 08/03/22 08/04/22 05:24 17:18 00:17 WBC RBC Hgb Hct MCV MCHC RDW Plt Count Lymph % (Auto) Lymph # (Auto) [place] # (Auto) Seg Neutrophils % Seg Neuts % (Manual) Lymphocytes % (Manual) Seg Neutrophils # Seg Neutrophils # Man Lymphocytes # (Manual) ABG pH ABG pO2 ABG HCO3 ABG O2 Saturation ABG Base Excess ABG Hemoglobin Oxyhemoglobin Sodium Potassium Chloride Carbon Dioxide BUN Creatinine Glucose POC Glucose 115 H 111 H 64 L Hemoglobin A1c Lactic Acid Calcium Phosphorus Magnesium AST ALT Ammonia Troponin T C-Reactive Protein Total Protein Albumin Triglycerides LDL Cholesterol Direct HDL Cholesterol Urine Creatinine Urine Total Protein Crossmatch 08/04/22 08/04/22 08/04/22 04:39 04:39 05:36 WBC 14.2 H RBC 3.61 L Hgb 10.3 L Hct 31.2 L MCV MCHC RDW 15.4 H Plt Count Lymph % (Auto) Lymph # (Auto) [place] # (Auto) Seg Neutrophils % Seg Neuts % (Manual) Lymphocytes % (Manual) Seg Neutrophils # Seg Neutrophils # Man Lymphocytes # (Manual) ABG pH ABG pO2 ABG HCO3 ABG O2 Saturation ABG Base Excess ABG Hemoglobin Oxyhemoglobin Sodium Potassium 3.1 L Chloride Carbon Dioxide 18 L BUN 30 H Creatinine Glucose 68 L POC Glucose 68 L Hemoglobin A1c Lactic Acid Calcium 6.1 L Phosphorus 2.00 L D Magnesium AST ALT Ammonia Troponin T C-Reactive Protein Total Protein Albumin Triglycerides LDL Cholesterol Direct HDL Cholesterol Urine Creatinine Urine Total Protein Crossmatch 08/04/22 08/04/22 08/04/22 06:32 11:37 17:53 WBC RBC Hgb Hct MCV MCHC RDW Plt Count Lymph % (Auto) Lymph # (Auto) [place] # (Auto) Seg Neutrophils % Seg Neuts % (Manual) Lymphocytes % (Manual) Seg Neutrophils # Seg Neutrophils # Man Lymphocytes # (Manual) ABG pH ABG pO2 ABG HCO3 ABG O2 Saturation ABG Base Excess ABG Hemoglobin Oxyhemoglobin Sodium Potassium Chloride Carbon Dioxide BUN Creatinine Glucose POC Glucose 110 H 118 H 171 H Hemoglobin A1c Lactic Acid Calcium Phosphorus Magnesium AST ALT Ammonia Troponin T C-Reactive Protein Total Protein Albumin Triglycerides LDL Cholesterol Direct HDL Cholesterol Urine Creatinine Urine Total Protein Crossmatch 08/04/22 08/04/22 08/05/22 23:41 23:43 04:46 WBC 12.5 H RBC Hgb 10.8 L Hct 33.3 L MCV MCHC RDW 15.8 H Plt Count 138 L Lymph % (Auto) Lymph # (Auto) [place] # (Auto) Seg Neutrophils % Seg Neuts % (Manual) Lymphocytes % (Manual) Seg Neutrophils # Seg Neutrophils # Man Lymphocytes # (Manual) ABG pH ABG pO2 ABG HCO3 ABG O2 Saturation ABG Base Excess ABG Hemoglobin Oxyhemoglobin Sodium Potassium Chloride Carbon Dioxide BUN Creatinine Glucose POC Glucose 226 H 218 H Hemoglobin A1c Lactic Acid Calcium Phosphorus Magnesium AST ALT Ammonia Troponin T C-Reactive Protein Total Protein Albumin Triglycerides LDL Cholesterol Direct HDL Cholesterol Urine Creatinine Urine Total Protein Crossmatch 08/05/22 08/05/22 08/05/22 04:46 06:05 11:42 WBC RBC Hgb Hct MCV MCHC RDW Plt Count Lymph % (Auto) Lymph # (Auto) [place] # (Auto) Seg Neutrophils % Seg Neuts % (Manual) Lymphocytes % (Manual) Seg Neutrophils # Seg Neutrophils # Man Lymphocytes # (Manual) ABG pH ABG pO2 ABG HCO3 ABG O2 Saturation ABG Base Excess ABG Hemoglobin Oxyhemoglobin Sodium Potassium Chloride Carbon Dioxide 16 L BUN 29 H Creatinine Glucose 179 H POC Glucose 220 H 180 H Hemoglobin A1c Lactic Acid Calcium 6.1 L Phosphorus Magnesium AST ALT Ammonia Troponin T C-Reactive Protein Total Protein Albumin Triglycerides LDL Cholesterol Direct HDL Cholesterol Urine Creatinine Urine Total Protein Crossmatch 08/05/22 08/05/22 08/05/22 17:39 21:10 21:43 WBC RBC Hgb Hct MCV MCHC RDW Plt Count Lymph % (Auto) Lymph # (Auto) [place] # (Auto) Seg Neutrophils % Seg Neuts % (Manual) Lymphocytes % (Manual) Seg Neutrophils # Seg Neutrophils # Man Lymphocytes # (Manual) ABG pH ABG pO2 ABG HCO3 ABG O2 Saturation ABG Base Excess ABG Hemoglobin Oxyhemoglobin Sodium Potassium Chloride Carbon Dioxide BUN Creatinine Glucose POC Glucose 207 H 185 H Hemoglobin A1c Lactic Acid Calcium Phosphorus Magnesium AST ALT Ammonia Troponin T C-Reactive Protein 21.50 H Total Protein Albumin Triglycerides LDL Cholesterol Direct HDL Cholesterol Urine Creatinine Urine Total Protein Crossmatch 08/05/22 08/06/22 08/06/22 23:38 05:13 05:20 WBC RBC 3.32 L Hgb 9.4 L Hct 29.4 L MCV MCHC RDW 15.6 H Plt Count Lymph % (Auto) Lymph # (Auto) [place] # (Auto) Seg Neutrophils % Seg Neuts % (Manual) Lymphocytes % (Manual) Seg Neutrophils # Seg Neutrophils # Man Lymphocytes # (Manual) ABG pH ABG pO2 ABG HCO3 ABG O2 Saturation ABG Base Excess ABG Hemoglobin Oxyhemoglobin Sodium Potassium Chloride Carbon Dioxide BUN Creatinine Glucose POC Glucose 198 H 182 H Hemoglobin A1c Lactic Acid Calcium Phosphorus Magnesium AST ALT Ammonia Troponin T C-Reactive Protein Total Protein Albumin Triglycerides LDL Cholesterol Direct HDL Cholesterol Urine Creatinine Urine Total Protein Crossmatch 08/06/22 08/06/22 08/06/22 05:20 11:25 16:13 WBC RBC Hgb Hct MCV MCHC RDW Plt Count Lymph % (Auto) Lymph # (Auto) [place] # (Auto) Seg Neutrophils % Seg Neuts % (Manual) Lymphocytes % (Manual) Seg Neutrophils # Seg Neutrophils # Man Lymphocytes # (Manual) ABG pH ABG pO2 ABG HCO3 ABG O2 Saturation ABG Base Excess ABG Hemoglobin Oxyhemoglobin Sodium Potassium Chloride 107.2 H Carbon Dioxide 21 L BUN 25 H Creatinine Glucose 176 H POC Glucose 155 H 176 H Hemoglobin A1c Lactic Acid Calcium 6.1 L Phosphorus 1.80 L D Magnesium 1.60 L AST ALT Ammonia Troponin T C-Reactive Protein Total Protein Albumin Triglycerides LDL Cholesterol Direct HDL Cholesterol Urine Creatinine Urine Total Protein Crossmatch 08/06/22 08/06/22 08/07/22 21:34 23:22 00:02 WBC RBC 2.98 L Hgb 8.4 L Hct 26.2 L MCV MCHC RDW 15.5 H Plt Count Lymph % (Auto) 11.3 L Lymph # (Auto) 0.9 L [place] # (Auto) Seg Neutrophils % 81.9 H Seg Neuts % (Manual) Lymphocytes % (Manual) Seg Neutrophils # Seg Neutrophils # Man Lymphocytes # (Manual) ABG pH ABG pO2 ABG HCO3 ABG O2 Saturation ABG Base Excess ABG Hemoglobin Oxyhemoglobin Sodium Potassium Chloride Carbon Dioxide BUN Creatinine Glucose POC Glucose 206 H 188 H Hemoglobin A1c Lactic Acid Calcium Phosphorus Magnesium AST ALT Ammonia Troponin T C-Reactive Protein Total Protein Albumin Triglycerides LDL Cholesterol Direct HDL Cholesterol Urine Creatinine Urine Total Protein Crossmatch 08/07/22 08/07/22 08/07/22 04:16 04:16 04:49 WBC RBC 3.12 L Hgb 8.8 L Hct 27.4 L MCV MCHC RDW 15.4 H Plt Count Lymph % (Auto) 10.6 L Lymph # (Auto) 0.9 L [place] # (Auto) Seg Neutrophils % 83.1 H Seg Neuts % (Manual) Lymphocytes % (Manual) Seg Neutrophils # Seg Neutrophils # Man Lymphocytes # (Manual) ABG pH ABG pO2 ABG HCO3 ABG O2 Saturation ABG Base Excess ABG Hemoglobin Oxyhemoglobin Sodium Potassium 3.4 L Chloride 107.8 H Carbon Dioxide BUN 21 H Creatinine Glucose 216 H POC Glucose 192 H Hemoglobin A1c Lactic Acid Calcium 6.1 L Phosphorus 2.00 L Magnesium AST 76 H ALT Ammonia Troponin T C-Reactive Protein Total Protein 5.1 L Albumin 1.8 L Triglycerides LDL Cholesterol Direct HDL Cholesterol Urine Creatinine Urine Total Protein Crossmatch 08/07/22 08/07/22 08/07/22 11:28 16:15 22:16 WBC RBC Hgb Hct MCV MCHC RDW Plt Count Lymph % (Auto) Lymph # (Auto) [place] # (Auto) Seg Neutrophils % Seg Neuts % (Manual) Lymphocytes % (Manual) Seg Neutrophils # Seg Neutrophils # Man Lymphocytes # (Manual) ABG pH ABG pO2 ABG HCO3 ABG O2 Saturation ABG Base Excess ABG Hemoglobin Oxyhemoglobin Sodium Potassium Chloride Carbon Dioxide BUN Creatinine Glucose POC Glucose 204 H 203 H 175 H Hemoglobin A1c Lactic Acid Calcium Phosphorus Magnesium AST ALT Ammonia Troponin T C-Reactive Protein Total Protein Albumin Triglycerides LDL Cholesterol Direct HDL Cholesterol Urine Creatinine Urine Total Protein Crossmatch 08/08/22 08/08/22 08/08/22 00:01 04:46 04:46 WBC RBC 3.16 L Hgb 8.9 L Hct 27.4 L MCV MCHC RDW 15.5 H Plt Count Lymph % (Auto) Lymph # (Auto) [place] # (Auto) Seg Neutrophils % Seg Neuts % (Manual) Lymphocytes % (Manual) Seg Neutrophils # Seg Neutrophils # Man Lymphocytes # (Manual) ABG pH ABG pO2 ABG HCO3 ABG O2 Saturation ABG Base Excess ABG Hemoglobin Oxyhemoglobin Sodium Potassium Chloride Carbon Dioxide BUN Creatinine Glucose 200 H POC Glucose 183 H Hemoglobin A1c Lactic Acid Calcium 6.3 L Phosphorus Magnesium AST 81 H ALT Ammonia Troponin T C-Reactive Protein Total Protein 5.1 L Albumin 1.7 L Triglycerides LDL Cholesterol Direct HDL Cholesterol Urine Creatinine Urine Total Protein Crossmatch 08/08/22 08/08/22 08/08/22 06:14 11:27 16:41 WBC RBC Hgb Hct MCV MCHC RDW Plt Count Lymph % (Auto) Lymph # (Auto) [place] # (Auto) Seg Neutrophils % Seg Neuts % (Manual) Lymphocytes % (Manual) Seg Neutrophils # Seg Neutrophils # Man Lymphocytes # (Manual) ABG pH ABG pO2 ABG HCO3 ABG O2 Saturation ABG Base Excess ABG Hemoglobin Oxyhemoglobin Sodium Potassium Chloride Carbon Dioxide BUN Creatinine Glucose POC Glucose 206 H 196 H 199 H Hemoglobin A1c Lactic Acid Calcium Phosphorus Magnesium AST ALT Ammonia Troponin T C-Reactive Protein Total Protein Albumin Triglycerides LDL Cholesterol Direct HDL Cholesterol Urine Creatinine Urine Total Protein Crossmatch 08/08/22 08/08/22 08/09/22 22:50 23:52 04:53 WBC RBC 3.00 L Hgb 8.4 L Hct 26.4 L MCV MCHC RDW 15.7 H Plt Count Lymph % (Auto) Lymph # (Auto) [place] # (Auto) Seg Neutrophils % Seg Neuts % (Manual) Lymphocytes % (Manual) Seg Neutrophils # Seg Neutrophils # Man Lymphocytes # (Manual) ABG pH ABG pO2 ABG HCO3 ABG O2 Saturation ABG Base Excess ABG Hemoglobin Oxyhemoglobin Sodium Potassium Chloride Carbon Dioxide BUN Creatinine Glucose POC Glucose 198 H 226 H Hemoglobin A1c Lactic Acid Calcium Phosphorus Magnesium AST ALT Ammonia Troponin T C-Reactive Protein Total Protein Albumin Triglycerides LDL Cholesterol Direct HDL Cholesterol Urine Creatinine Urine Total Protein Crossmatch 08/09/22 08/09/22 08/09/22 04:53 05:38 11:29 WBC RBC Hgb Hct MCV MCHC RDW Plt Count Lymph % (Auto) Lymph # (Auto) [place] # (Auto) Seg Neutrophils % Seg Neuts % (Manual) Lymphocytes % (Manual) Seg Neutrophils # Seg Neutrophils # Man Lymphocytes # (Manual) ABG pH ABG pO2 ABG HCO3 ABG O2 Saturation ABG Base Excess ABG Hemoglobin Oxyhemoglobin Sodium Potassium 3.5 L Chloride Carbon Dioxide BUN Creatinine Glucose 181 H POC Glucose 160 H 174 H Hemoglobin A1c Lactic Acid Calcium 6.2 L Phosphorus Magnesium AST ALT Ammonia Troponin T C-Reactive Protein Total Protein Albumin Triglycerides LDL Cholesterol Direct HDL Cholesterol Urine Creatinine Urine Total Protein Crossmatch 08/09/22 08/09/22 08/10/22 16:11 17:31 00:55 WBC RBC Hgb 8.7 L Hct 27.6 L MCV MCHC RDW Plt Count Lymph % (Auto) Lymph # (Auto) [place] # (Auto) Seg Neutrophils % Seg Neuts % (Manual) Lymphocytes % (Manual) Seg Neutrophils # Seg Neutrophils # Man Lymphocytes # (Manual) ABG pH ABG pO2 ABG HCO3 ABG O2 Saturation ABG Base Excess ABG Hemoglobin Oxyhemoglobin Sodium Potassium Chloride Carbon Dioxide BUN Creatinine Glucose POC Glucose 205 H 204 H Hemoglobin A1c Lactic Acid Calcium Phosphorus Magnesium AST ALT Ammonia Troponin T C-Reactive Protein Total Protein Albumin Triglycerides LDL Cholesterol Direct HDL Cholesterol Urine Creatinine Urine Total Protein Crossmatch 08/10/22 08/10/22 08/10/22 05:03 05:03 06:26 WBC RBC 2.92 L Hgb 8.4 L Hct 25.6 L MCV MCHC RDW 15.7 H Plt Count Lymph % (Auto) Lymph # (Auto) [place] # (Auto) Seg Neutrophils % Seg Neuts % (Manual) Lymphocytes % (Manual) Seg Neutrophils # Seg Neutrophils # Man Lymphocytes # (Manual) ABG pH ABG pO2 ABG HCO3 ABG O2 Saturation ABG Base Excess ABG Hemoglobin Oxyhemoglobin Sodium Potassium Chloride Carbon Dioxide BUN Creatinine Glucose 161 H POC Glucose 177 H Hemoglobin A1c Lactic Acid Calcium 6.6 L Phosphorus Magnesium AST ALT Ammonia Troponin T C-Reactive Protein Total Protein Albumin Triglycerides LDL Cholesterol Direct HDL Cholesterol Urine Creatinine Urine Total Protein Crossmatch 08/10/22 08/10/22 08/10/22 12:17 18:34 22:37 WBC RBC Hgb Hct MCV MCHC RDW Plt Count Lymph % (Auto) Lymph # (Auto) [place] # (Auto) Seg Neutrophils % Seg Neuts % (Manual) Lymphocytes % (Manual) Seg Neutrophils # Seg Neutrophils # Man Lymphocytes # (Manual) ABG pH ABG pO2 ABG HCO3 ABG O2 Saturation ABG Base Excess ABG Hemoglobin Oxyhemoglobin Sodium Potassium Chloride Carbon Dioxide BUN Creatinine Glucose POC Glucose 171 H 248 H 188 H Hemoglobin A1c Lactic Acid Calcium Phosphorus Magnesium AST ALT Ammonia Troponin T C-Reactive Protein Total Protein Albumin Triglycerides LDL Cholesterol Direct HDL Cholesterol Urine Creatinine Urine Total Protein Crossmatch 08/10/22 08/11/22 08/11/22 23:20 04:52 04:52 WBC RBC 2.43 L Hgb 7.0 L 6.8 L Hct 22.1 L 21.4 L MCV MCHC RDW 15.5 H Plt Count Lymph % (Auto) Lymph # (Auto) [place] # (Auto) Seg Neutrophils % Seg Neuts % (Manual) Lymphocytes % (Manual) Seg Neutrophils # Seg Neutrophils # Man Lymphocytes # (Manual) ABG pH ABG pO2 ABG HCO3 ABG O2 Saturation ABG Base Excess ABG Hemoglobin Oxyhemoglobin Sodium Potassium Chloride Carbon Dioxide BUN Creatinine Glucose POC Glucose Hemoglobin A1c Lactic Acid Calcium Phosphorus Magnesium AST ALT Ammonia Troponin T C-Reactive Protein Total Protein Albumin Triglycerides LDL Cholesterol Direct HDL Cholesterol Urine Creatinine Urine Total Protein Crossmatch See Detail 08/11/22 08/11/22 08/11/22 04:52 05:29 12:56 WBC RBC Hgb Hct MCV MCHC RDW Plt Count Lymph % (Auto) Lymph # (Auto) [place] # (Auto) Seg Neutrophils % Seg Neuts % (Manual) Lymphocytes % (Manual) Seg Neutrophils # Seg Neutrophils # Man Lymphocytes # (Manual) ABG pH ABG pO2 ABG HCO3 ABG O2 Saturation ABG Base Excess ABG Hemoglobin Oxyhemoglobin Sodium Potassium Chloride Carbon Dioxide 21 L BUN Creatinine Glucose 137 H POC Glucose 151 H 175 H Hemoglobin A1c Lactic Acid Calcium 7.1 L Phosphorus Magnesium AST ALT Ammonia Troponin T C-Reactive Protein Total Protein Albumin Triglycerides LDL Cholesterol Direct HDL Cholesterol Urine Creatinine Urine Total Protein Crossmatch 08/11/22 08/11/22 08/12/22 22:20 22:42 13:02 WBC RBC 2.78 L Hgb 8.2 L Hct 24.5 L MCV MCHC RDW 15.3 H Plt Count Lymph % (Auto) Lymph # (Auto) [place] # (Auto) Seg Neutrophils % Seg Neuts % (Manual) Lymphocytes % (Manual) Seg Neutrophils # Seg Neutrophils # Man Lymphocytes # (Manual) ABG pH ABG pO2 ABG HCO3 ABG O2 Saturation ABG Base Excess ABG Hemoglobin Oxyhemoglobin Sodium Potassium Chloride Carbon Dioxide BUN Creatinine Glucose POC Glucose 153 H 170 H Hemoglobin A1c Lactic Acid Calcium Phosphorus Magnesium AST ALT Ammonia Troponin T C-Reactive Protein Total Protein Albumin Triglycerides LDL Cholesterol Direct HDL Cholesterol Urine Creatinine Urine Total Protein Crossmatch 08/12/22 08/12/22 08/13/22 17:20 23:58 04:05 WBC RBC 2.57 L Hgb 7.4 L Hct 22.5 L MCV MCHC RDW 15.5 H Plt Count Lymph % (Auto) Lymph # (Auto) [place] # (Auto) Seg Neutrophils % Seg Neuts % (Manual) Lymphocytes % (Manual) Seg Neutrophils # Seg Neutrophils # Man Lymphocytes # (Manual) ABG pH ABG pO2 ABG HCO3 ABG O2 Saturation ABG Base Excess ABG Hemoglobin Oxyhemoglobin Sodium Potassium Chloride Carbon Dioxide BUN Creatinine Glucose POC Glucose 155 H 148 H Hemoglobin A1c Lactic Acid Calcium Phosphorus Magnesium AST ALT Ammonia Troponin T C-Reactive Protein Total Protein Albumin Triglycerides LDL Cholesterol Direct HDL Cholesterol Urine Creatinine Urine Total Protein Crossmatch 08/13/22 08/13/22 08/13/22 05:29 11:50 16:11 WBC RBC Hgb Hct MCV MCHC RDW Plt Count Lymph % (Auto) Lymph # (Auto) [place] # (Auto) Seg Neutrophils % Seg Neuts % (Manual) Lymphocytes % (Manual) Seg Neutrophils # Seg Neutrophils # Man Lymphocytes # (Manual) ABG pH ABG pO2 ABG HCO3 ABG O2 Saturation ABG Base Excess ABG Hemoglobin Oxyhemoglobin Sodium Potassium Chloride Carbon Dioxide BUN Creatinine Glucose POC Glucose 163 H 143 H 169 H Hemoglobin A1c Lactic Acid Calcium Phosphorus Magnesium AST ALT Ammonia Troponin T C-Reactive Protein Total Protein Albumin Triglycerides LDL Cholesterol Direct HDL Cholesterol Urine Creatinine Urine Total Protein Crossmatch 08/13/22 08/14/22 23:44 04:23 WBC RBC 2.50 L Hgb 7.4 L Hct 21.9 L MCV MCHC RDW 15.8 H Plt Count Lymph % (Auto) Lymph # (Auto) [place] # (Auto) Seg Neutrophils % Seg Neuts % (Manual) Lymphocytes % (Manual) Seg Neutrophils # Seg Neutrophils # Man Lymphocytes # (Manual) ABG pH ABG pO2 ABG HCO3 ABG O2 Saturation ABG Base Excess ABG Hemoglobin Oxyhemoglobin Sodium Potassium Chloride Carbon Dioxide BUN Creatinine Glucose POC Glucose 170 H Hemoglobin A1c Lactic Acid Calcium Phosphorus Magnesium AST ALT Ammonia Troponin T C-Reactive Protein Total Protein Albumin Triglycerides LDL Cholesterol Direct HDL Cholesterol Urine Creatinine Urine Total Protein Crossmatch
--- NOTE | 2022-08-14 12:43 | Progress Note ---
Assessment and Plan Assessment, plan. SIRS/sepsis: Initially secondary to Klebsiella pneumonia. Now with new fever since 08/04/2022 associated with new blistering rash and increasing tracheal secretions, likely HAP +/- allergic reaction +/- central fever. Bilateral pneumonia: Initially grew Klebsiella treated with cefepime for 7 days on June 02, 2022. Chest x-ray with worsening pneumonia. Blistering rash: Extensive blistery rash in lower extremities and arms. ? Star Sumeet's vs skin soft tissue infection. CRP 21 Acute respiratory failure: Status post trach and PEG. On the ventilator. Encephalopathy/CVA: ? Hepatic encephalopathy FREDI resolved Recommendations: Eosinophilia improved Skin biopsy may be necessary Completed antibiotics ID will sign off. Please call questions. Eder Ngo MD [facility] ([facility]) O: [phone] F: [phone] Subjective Date of service: 08/14/22 Principal diagnosis: Hypernatremia, ARF Interval history: Febrile overnight to 100.6 degrees, white count normal. He is being transferred to a SNF Objective - Exam Narrative Exam: Physical Exam: Constitutional: Intubated, sedated Head, Ears, Nose: Normocephalic, atraumatic. External ears, nose normal Eyes: Conjunctivae/corneas clear. No icterus. No ptosis. Neck: +trach Oral: ETT Cardiovascular: S1, S2 normal. Respiratory: Good air entry, clear to auscultation bilaterally GI: Soft, non-tender; bowel sounds normal. No peritoneal signs. Musculoskeletal: No pedal edema, no cyanosis. Skin: No rash or abscess Hem/Lymphatic: No palpable cervical or supraclavicular nodes. No lymphangitis Psych: Sedated Neurological: Sedated - Constitutional Vitals: Vital Signs Temp Pulse Resp BP Pulse Ox 98.1 F 97 H 34 H 140/83 100 08/14/22 11:31 08/14/22 12:00 08/14/22 12:00 08/14/22 12:00 08/14/22 12:00 Temperature -Last 24 Hours Temperature 98.1 F Temperature 100.0 F Temperature 98.9 F Temperature 100.6 F Temperature 98.7 F Temperature 99.7 F - Labs CBC & Chem 7: 08/14/22 04:23 08/11/22 04:52 Labs: Abnormal lab results 08/12/22 08/13/22 08/13/22 Range/Units 23:58 05:29 11:50 RBC (3.65-5.03) M/mm3 Hgb (11.8-15.2) gm/dl Hct (35.5-45.6) % RDW (13.2-15.2) % POC Glucose 148 H 163 H 143 H (70-105) mg/dL 08/13/22 08/13/22 08/14/22 Range/Units 16:11 23:44 04:23 RBC 2.50 L (3.65-5.03) M/mm3 Hgb 7.4 L (11.8-15.2) gm/dl Hct 21.9 L (35.5-45.6) % RDW 15.8 H (13.2-15.2) % POC Glucose 169 H 170 H (70-105) mg/dL
[2022-08-14 15:03] VITALS: BP 149/78
== END 2022-08-14 16:13 | DRG 4 ==
LOC: ED 19:02 → CC1 07-26 00:32
PROVIDERS: ADMIT Hospitalist; ATTEND Internal Medicine
PROC: 4A033R1 Measurement of Arterial Saturation, Peripheral, Percutaneous Approach (ICD-10-PCS; 2022-07-25)
PROC: 0B113F4 Bypass Trachea to Cutaneous with Tracheostomy Device, Percutaneous Approach (ICD-10-PCS; 2022-08-02)
PROC: 0D20XUZ Change Feeding Device in Upper Intestinal Tract, External Approach (ICD-10-PCS; 2022-08-02)
PROC: 0DB68ZX Excision of Stomach, Via Natural or Artificial Opening Endoscopic, Diagnostic (ICD-10-PCS; 2022-08-02)
PROC: 5A1955Z Respiratory Ventilation, Greater than 96 Consecutive Hours (ICD-10-PCS; principal; 2022-08-03)
PROC: 0BH17EZ Insertion of Endotracheal Airway into Trachea, Via Natural or Artificial Opening (ICD-10-PCS; 2022-08-03)
PROC: 30233N1 Transfusion of Nonautologous Red Blood Cells into Peripheral Vein, Percutaneous Approach (ICD-10-PCS; 2022-08-11)
DX: A41.89 Other specified sepsis (principal); J15.0 Pneumonia due to Klebsiella pneumoniae; I46.9 Cardiac arrest, cause unspecified; I63.9 Cerebral infarction, unspecified; G93.41 Metabolic encephalopathy; N17.0 Acute kidney failure with tubular necrosis; I48.0 Paroxysmal atrial fibrillation; E87.1 Hypo-osmolality and hyponatremia; Z20.822 Contact with and (suspected) exposure to COVID-19; Z82.49 Family history of ischemic heart disease and other diseases of the circulatory system; I10 Essential (primary) hypertension; K21.9 Gastro-esophageal reflux disease without esophagitis; J96.01 Acute respiratory failure with hypoxia; K72.90 Hepatic failure, unspecified without coma; E78.5 Hyperlipidemia, unspecified; E87.6 Hypokalemia; E83.39 Other disorders of phosphorus metabolism; Z83.3 Family history of diabetes mellitus; E87.0 Hyperosmolality and hypernatremia; D69.6 Thrombocytopenia, unspecified; Z90.49 Acquired absence of other specified parts of digestive tract; I82.433 Acute embolism and thrombosis of popliteal vein, bilateral; I82.413 Acute embolism and thrombosis of femoral vein, bilateral; E11.10 Type 2 diabetes mellitus with ketoacidosis without coma; I82.423 Acute embolism and thrombosis of iliac vein, bilateral
CPT/HCPCS: 36415; 36600; 70450; 70551; 71045; 74174; 76770; 80048; 80053; 80061; 80076; 81001; 82140; 82550; 82553; 82570; 82803; 82805; 82962; 83036; 83735; 84100; 84145; 84156; 84300; 84439; 84443; 84484; 85007; 85014; 85018; 85025; 85027; 85610; 86022; 86140; 86850; 86900; 86901; 86920; 87040; 87070; 87076; 87116; 87186; 87205; 87641; 88305; 88342; 93005; 93306; 93970; 94002; 94003; 94640; 95819; G0378; J2354; J3480; J3490; J7060; J7121; J7510; Q9967; C8929; J0282; J0610; J0692; J0696; J1650; J1720; J1815; J2060; J2185; J2270; J2370; J2704; J3010; J3370; J3475; J7030; J7040; J7050; J7070; J7120; P9016; U0003